=== PATIENT | female | born 1945 | race Caucasian/White ===

== ENCOUNTER 2018-08-19 16:56 | Emergency (ER) | payer MEDICARE, SELFPAY ==
[2018-08-19 16:57] VITALS: BP 212/98; PULSE 55; RESP 16; TEMP 36.4; O2SAT 96; BMI 40.2
--- NOTE | 2018-08-19 17:07 | EKG12_ITS ---
Test Reason : PALPS Blood Pressure : / mmHG Vent. Rate : 052 BPM Atrial Rate : 052 BPM P-R Int : 156 ms QRS Dur : 072 ms QT Int : 442 ms P-R-T Axes : 001 -14 -18 degrees QTc Int : 411 ms Sinus bradycardia Inferior infarct , age undetermined Abnormal ECG Confirmed by ANGELICA MAYORGA ([id number]), news videotape editor KELLIE RODRÍGUEZ ([id number]) on 08/26/2018 8:53:06 AM Referred By: NESS Confirmed By:ANGELICA MAYORGA
--- NOTE | 2018-08-19 17:09 | ED.DCSUM_ITS ---
- ER Visit Summary Date of Service: 08/19/18 Chief Complaint: Hypertension, palpitations History of Present Illness: The patient is a 73 F who presents with elevated blood pressure palpitations. She noticed this today. Her blood pressure was 215/90 at home. Her normal blood pressures is around 130/70. She takes metoprolol 100 mg twice a day. She has not missed any doses. And no recent changes to her dosage. She denies any chest pain but has felt some palpitations throughout the day. Denies any leg swelling. No other symptoms. Physical Examination: Vital signs reviewed. HEENT exam unremarkable. Heart is regular rate and rhythm without murmurs. Lungs are clear to auscultation. Abdomen is soft and nontender. Extremities reveal no edema. Peripheral pulses are equal. Skin exam normal. Neurologic exam normal. Test Results: EKG is normal sinus rhythm with rate of 52. No ST changes. Emergency Department Course and Treatment: Patient received 0.3 mg of clonidine orally. Repeat blood pressure is 171/86. She remained a symptomatically. Patient will need to discuss her medications with her banner painter. She may need a change because she feels tired with the metoprolol. Treatment Plan: [] Disposition: Discharge Impression: Hypertension This note was generated with [employer] dictation software. It may contain incorrect words, spelling, and punctuation that were not noted in review of the chart prior to signing ED Disposition - Plan for ED Patient: Referrals: Mis Monk MD [Primary Care Provider] -
[2018-08-19] MEDS: Clonidine HCl 0.1 MG, Clonidine HCl 0.2 MG 0.3 MG PO (17:23)
[2018-08-19 17:50] VITALS: BP 181/78; PULSE 47; RESP 14; O2SAT 95
[2018-08-19 18:12] VITALS: BP 171/89
--- NOTE | 2018-08-19 18:25 | ED.DEP ---
ED Disposition - Plan for ED Patient: Disposition: Home or Assisted Living Instructions: ED HTN Established Referrals: Mis Monk MD [Primary Care Provider] -
[2018-08-19 18:43] VITALS: BP 141/75; PULSE 46; RESP 18; O2SAT 95
== END 2018-08-19 18:44 | disposition home or self-care (01) ==
PROVIDERS: Emergency Provider Emergency Medicine; Family Provider Internal Medicine; PCP Internal Medicine
DX: I11.0 Hypertensive heart disease with heart failure (principal); I50.9 Heart failure, unspecified; K21.9 Gastro-esophageal reflux disease without esophagitis; Z79.82 Long term (current) use of aspirin; Z79.84 Long term (current) use of oral hypoglycemic drugs; Z79.899 Other long term (current) drug therapy
CPT/HCPCS: 93005; 99283

== ENCOUNTER → 2018-10-15 | Outpatient (CLI) | payer MEDICARE, SELFPAY ==
[2018-10-15 15:45] LABS: Lipase 116 U/L (73-393)
== END | disposition home or self-care (01) ==
LOC: LABSPEC 15:25
PROVIDERS: Family Provider Internal Medicine; PCP Internal Medicine; Referring Provider Nurse Practitioner; Visit Provider Nurse Practitioner
DX: R10.816 Epigastric abdominal tenderness (principal); R10.11 Right upper quadrant pain
CPT/HCPCS: 83690

== ENCOUNTER 2019-05-23 11:46 | Emergency (ER) | payer MEDICARE, SELFPAY ==
[2019-05-23 11:47] VITALS: BP 150/101; PULSE 63; RESP 16; TEMP 36.6; O2SAT 94; BMI 35.9
[2019-05-23 12:48] LABS: Absolute Lymphocyte Count 1.98 X10^3/uL (0.83-4.51); Absolute Neutrophil Count 5.8 X10^3/uL (2.0-7.7); Basophil# 0.04 X10^3/uL; Basophil% 0.4 % (0-1); Eosinophil# 0.14 X10^3/uL; Eosinophils% 1.6 % (0-5); Hematocrit 39.9 % (37-47); Lymphocyte # 1.98 X10^3/ul (4.0); Mean Corp Hgb Conc 32.6 g/dL (32-36); Mean Corpuscular Hgb 28.6 pg (27.0-32.0); Mean Corpuscular Volume 87.7 fL (81-99); Mean Platelet Vol. 9.3 fl (6.2-12.0); Monocyte# 1.01 X10^3/uL; Monocyte% 11.2 % (0-10); NRBC Flagged by Analyzer 0 % (0-5); Neutrophil # 5.82 X10^3/uL (2.7-7.7); Neutrophil % 64.5 % (47-70); Platelet Count 324 K/mm3 (150-450); RBC Distribution Width CV 13.2 % (11.6-14.6); RBC Distribution Width SD 42.3 fl (35.1-43.9); Red Blood Count 4.55 M/mm3 (4.2-5.4)
[2019-05-23 13:08] LABS: Anion Gap 6 (5-15); BUN 15 mg/dL (7-18); BUN/Creat Ratio 18.1 RATIO (10-20); Calcium,Total 9.5 mg/dL (8.5-10.1); Chloride 108 mmol/L (98-107); Creatinine, Serum 0.83 mg/dL (0.55-1.02); EST Glomerular Filtration Rate 71 mL/min (>60); Est Glom Filt Rate - Afr Amer 86 mL/min (>60); Estimated Creatinine Clearance 49.79 ml/min; Glucose 108 mg/dL (74-106); Potassium 4.6 mmol/L (3.5-5.1); Sodium Level 140 mmol/L (136-145)
--- NOTE | 2019-05-23 13:30 | CT_ITS ---
STUDY: CT ABDOMEN AND PELVIS WITHOUT CONTRAST REASON FOR EXAM: Female, 74 years old. Abdominal pain, GI bleed RADIATION DOSAGE (If Supplied By Facility): CTDIvol = ( 14.73 ) mGy, DLP = ( 634.20 ) mGycm TECHNIQUE: Transaxial images were obtained from the dome of the diaphragm to the symphysis pubis without oral contrast, and without intravenous contrast. Sagittal and coronal images were reconstructed. Individualized dose optimization techniques were used for this CT. COMPARISON: None. FINDINGS: Lack of intravenous contrast limits evaluation of abdominal and pelvic organs. There are mild fibrotic and chronic interstitial changes at the lung bases. There is a mitral annular valve. There are calcifications in the right infrahilar region. There are multiple benign calcified granulomata of the liver. There are surgical clips in the gallbladder fossa consistent with a prior cholecystectomy. There are multiple benign calcified granulomata of the spleen. Normal pancreas. Normal bilateral adrenal glands. Normal right kidney. Normal left kidney. Normal visualized stomach. Normal small intestine. There is colonic diverticulosis. There is focal inflammation and stranding of a rectosigmoid diverticulum on axial image 124. There is no free air or abscess.. The appendix is visualized and appears normal. There is diffuse atherosclerotic calcification of the abdominal aorta, without a demonstrated aneurysm. Normal inferior vena cava. Normal retroperitoneum. The urinary bladder is collapsed. There is absence of the uterus consistent with a prior hysterectomy. Normal abdominal wall. There are diffuse degenerative changes of the visualized lumbar spine. There is bilateral hip arthrosis. CT/Abdomen/Pelvis without Cont IMPRESSION: Focal, acute rectosigmoid diverticulitis. No free air or abscess. Chronic granulomatous disease. Electronically Signed: Marcella Haley, at 15:03 EST Tel , Service support ,
[2019-05-23 13:40] LABS: Bacteria 0 SEEN /hpf (None Seen); Mucous, Urine 0 SEEN /hpf (<or=2+); Red Blood Cells-Urine 0 SEEN /hpf (0-5); White Blood Cells 0 SEEN /hpf (0-5)
[2019-05-23 13:41] LABS: Color, Urine Yellow (Yellow); Glucose, Dipstick Normal (Normal); Ketone-Dipstick Negative (Negative); Leukocyte Esterase-Dipstick Negative /ul (Negative); Nitrite-Dipstick Negative (Negative); Occult Blood-Urine Negative /ul (Negative); Protein-Dipstick Negative (Negative); Urine Bilirubin Dipstick Negative (Negative); Urine Clarity Sl. Cloudy (Clear); Urine Urobilinogen Normal (Normal); Urine pH 6.5 (5.0 - 8.0)
[2019-05-23 13:47] LABS: Squamous Epithelial Cells - UA 0-5 SEEN /hpf (5-10)
--- NOTE | 2019-05-23 15:44 | ED.VISSUMM ---
- ER Visit Summary Date of Service: 05/23/19 Chief Complaint: Blood in stool History of Present Illness: The patient is a 74 F presenting with blood in stool. She states she had one episode yesterday and one stool today with small amount of blood in stool. She showed me a picture of her stool, it was light brown with very small amount of blood. She has had some lower abdominal cramping. She denies nausea or vomiting. Denies diarrhea. She denies fever. She denies lightheadedness or syncope. She is not on anticoagulants. She has a history of previous diverticulitis. Denies other complaints. Physical Examination: Vitals are stable. Patient is afebrile. Alert no acute distress. HEENT exam is unremarkable. Neck is supple. Lungs are clear and equal bilaterally. Heart is regular rate and rhythm. Abdomen is soft bilateral lower quadrant tenderness with no guarding or rebound Extremities are unremarkable. Skin is warm and dry. No focal neurologic deficit. Remainder of exam is unremarkable. Emergency Department Course and Treatment: CBC, chemistries unremarkable. Urinalysis unremarkable. CT abdomen pelvis shows focal, acute rectosigmoid diverticulitis. No free air or abscess. On repeat evaluation, patient is resting comfortably. She is comfortable with discharge home. She is given Augmentin and a prescription for Augmentin. Advised to follow-up with Dr. More who she has seen in the past. She states she is scheduled for a routine colonoscopy in May. Advised return to ED for worsening complaints. Disposition: Discharge home Impression: Diverticulitis This note was generated with [employer] dictation software. It may contain incorrect words, spelling, and punctuation that were not noted in review of the chart prior to signing ED Disposition - Plan for ED Patient: Referrals: Mis Monk MD [Primary Care Provider] -
--- NOTE | 2019-05-23 15:56 | ED.DEP ---
ED Disposition - Plan for ED Patient: Instructions: Understanding Diverticulosis and Diverticulitis Prescriptions: Amox/Clavulanate Tablet [Augmentin Tablet] 875 mg PO Q12H #20 tablet Referrals: Mis Monk MD [Primary Care Provider] -
[2019-05-23] MEDS: Amox/Clavulanate 875 MG Tablet PO (16:20)
[2019-05-23 16:24] VITALS: BP 146/69; PULSE 68; RESP 16; O2SAT 95
--- NOTE | 2019-05-23 16:25 | ED.RN ---
REVIEWED D/C INSTRUCTIONS, FOLLOW UP CARE, PRESCRIPTION, AND S/S THAT WOULD WARRANT A RETURN TO THE ED WITH PT. PT VERBALIZED AN UNDERSTANDING AND DENIES FURTHER QUESTIONS FOR THIS RN. PT SKIN P/W/D, RESP EVEN AND UNLABORED, PT A&O X 3, NO DISTRESS NOTED. PT AMBULATED OUT OF ED, GAIT STEADY.
== END 2019-05-23 16:27 | disposition home or self-care (01) ==
PROVIDERS: Emergency Provider Emergency Medicine; PCP Internal Medicine
DX: K57.32 Diverticulitis of large intestine without perforation or abscess without bleeding (principal); I10 Essential (primary) hypertension; E11.9 Type 2 diabetes mellitus without complications; Z87.19 Personal history of other diseases of the digestive system; Z90.49 Acquired absence of other specified parts of digestive tract; Z79.82 Long term (current) use of aspirin; Z79.84 Long term (current) use of oral hypoglycemic drugs; Z79.899 Other long term (current) drug therapy
CPT/HCPCS: 74176; 80048; 81001; 85025; 99284; A4216

== ENCOUNTER 2020-07-03 22:00 | Emergency (ER) | payer MEDICARE, SELFPAY ==
[2020-07-03 22:00] VITALS: BP 174/83; PULSE 64; PULSE 69; RESP 16; RESP 18; TEMP 36.3; O2SAT 95; BMI 41.3
--- NOTE | 2020-07-03 22:07 | EKG12_ITS ---
Test Reason : CHESTPAIN Blood Pressure : / mmHG Vent. Rate : 065 BPM Atrial Rate : 065 BPM P-R Int : 150 ms QRS Dur : 090 ms QT Int : 424 ms P-R-T Axes : -13 -06 -12 degrees QTc Int : 440 ms Sinus rhythm with sinus arrhythmia with occasional Premature ventricular complexes Otherwise normal ECG Confirmed by JANET SOMMER, SAURAV ([id number]), news editor JODI GARCIA ([id number]) on 07/06/2020 3:00:43 PM Referred By: Confirmed By:CHERI GONZALES MD
[2020-07-03 22:18] VITALS: O2SAT 97
[2020-07-03 22:24] LABS: Absolute Lymphocyte Count 2.37 X10^3/uL (0.83-4.51); Absolute Neutrophil Count 5.2 X10^3/uL (2.0-7.7); Basophil# 0.04 X10^3/uL; Basophil% 0.5 % (0-1); Eosinophil# 0.24 X10^3/uL; Eosinophils% 2.7 % (0-5); Hematocrit 40.1 % (37-47); Hemoglobin 13.1 g/dL (12.0-15.0); Lymphocyte # 2.37 X10^3/ul (4.0); Lymphocyte % 26.9 % (19-41); Mean Corp Hgb Conc 32.7 g/dL (32-36); Mean Corpuscular Hgb 29.4 pg (27.0-32.0); Mean Corpuscular Volume 90.1 fL (81-99); Mean Platelet Vol. 9.5 fl (6.2-12.0); Monocyte% 11.3 % (0-10); NRBC Flagged by Analyzer 0 % (0-5); Neutrophil # 5.15 X10^3/uL (2.7-7.7); Neutrophil % 58.4 % (47-70); Platelet Count 337 K/mm3 (150-450); RBC Distribution Width SD 46.1 fl (35.1-43.9); Red Blood Count 4.45 M/mm3 (4.2-5.4); White Blood Count 8.8 K/mm3 (4.4-11.0)
--- NOTE | 2020-07-03 22:25 | RAD_ITS ---
STUDY: X-RAY CHEST REASON FOR EXAM: Female, 75 years old. Chest pain. TECHNIQUE: AP. COMPARISON: 03/15/2015 CXR FINDINGS: No evidence of pneumonia, pulmonary edema, pneumothorax or pleural effusion. Cardiac silhouette, hilar and mediastinal contours with no acute findings. Mild cardiomegaly. Atherosclerosis of the thoracic aorta. Degenerative osseous changes with no acute osseous abnormality. RAD/Chest 1 View (Portable) IMPRESSION: No acute findings. Mild cardiomegaly again demonstrated. Electronically Signed: Jaya De La Paz MD at 22:39 EDT Tel , Service support ,
[2020-07-03 22:44] LABS: Anion Gap 3 (5-15); BUN 23 mg/dL (7-18); BUN/Creat Ratio 25.1 RATIO (10-20); Calcium,Total 9.9 mg/dL (8.5-10.1); Chloride 107 mmol/L (98-107); Creatinine, Serum 0.92 mg/dL (0.55-1.02); EST Glomerular Filtration Rate 63 mL/min (>60); Est Glom Filt Rate - Afr Amer 77 mL/min (>60); Estimated Creatinine Clearance 36.78 ml/min; Glucose 126 mg/dL (74-106); Potassium 4.2 mmol/L (3.5-5.1); Sodium Level 137 mmol/L (136-145)
--- NOTE | 2020-07-03 22:54 | EKG12_ITS ---
Test Reason : RECHECK Blood Pressure : / mmHG Vent. Rate : 058 BPM Atrial Rate : 058 BPM P-R Int : 146 ms QRS Dur : 088 ms QT Int : 446 ms P-R-T Axes : 018 -02 -08 degrees QTc Int : 437 ms Sinus bradycardia with occasional Premature ventricular complexes Otherwise normal ECG Confirmed by JANET SOMMER, SAURAV ([id number]), metropolitan editor JODI GARCIA ([id number]) on 07/06/2020 3:00:57 PM Referred By: Confirmed By:CHERI GONZALES MD
--- NOTE | 2020-07-03 22:55 | ED.VIS.GEN ---
History of Present Illness Chief Complaint: Chest Pain Narrative: This patient is a 75-year-old female who presents with chest pain. She states she first noticed symptoms a little after 9 PM. She is currently wearing an outpatient heart monitor. She states she has a history of PVCs and could tell that she was having PVCs. She complains of palpitations. She also had very brief episodes of chest pain over the course of about 40 minutes. She states the pain was sharp located on the left side of her chest and would only last couple of seconds at a time. She did not have any associated symptoms such as shortness of breath, nausea, dizziness, diaphoresis. She did state that she was feeling anxious. She otherwise denies any recent illness such as fevers cough vomiting diarrhea. She does have a history of coronary disease with a stent. No history of DVT or pulmonary embolism. No recent travel surgery or immobilization. No extremity pain. Past Medical History - Allergies and Home Meds Allergies/Adverse Reactions: Allergies acetaminophen [From Vicodin] Allergy (Verified 05/23/19 11:47) Other codeine Allergy (Verified 05/23/19 11:47) Other hydrocodone bitartrate [From Vicodin] Allergy (Verified 05/23/19 11:47) Other Iodinated Contrast Media Allergy (Verified 05/23/19 11:47) Other meloxicam [From Mobic] Allergy (Verified 05/23/19 11:47) Swelling Sulfa (Sulfonamide Antibiotics) Allergy (Verified 05/23/19 11:47) Rash sulfamethoxazole [From Septra] Allergy (Verified 05/23/19 11:47) Unknown trimethoprim [From Septra] Allergy (Verified 05/23/19 11:47) Unknown Primary Care Physician: Mis Monk MD [Primary Care Provider] - Past Medical History: - - Diabetes, hypertension, coronary artery disease Smoking Status: Former smoker Review of Systems All systems negative except as indicated General: Denies: Fever Eyes: Denies: Visual changes - bilaterally ENT: Denies: Bilateral ear pain Cardiovascular: Reports: Chest pain, Palpitations Respiratory: Denies: Dyspnea Gastrointestinal: Denies: Nausea Musculoskeletal: Denies: Myalgias, Arthralgias, Extremity Pain Skin: Denies: Rash Neurological: Denies: Headache Hematologic: Denies: Easy bruising Allergy: Denies: Uticaria Physical Exam Vital Signs/Narrative: Vital Signs Temp Pulse Resp BP Pulse Ox 07/03/20 22:18 97 07/03/20 22:00 97.4 F L 69 16 174/83 H 95 Inital Vital Signs reviewed: Yes General: Well nourished Head: Normocephalic Eyes: EOMI ENT: Moist mucous membranes Neck: Supple Cardiovascular: Regular rate, Regular rhythm, - - Easily palpable and symmetric radial and dorsalis pedis pulses Respiratory: No distress, CTA bilaterally Abdomen: Soft, Nontender Extremities: Nontender, No edema Skin: Normal color Neurological: Alert Psychological: Normal affect Diagnostic/Tx/Re-eval Impressions Chest X-Ray 07/03/20 22:25 IMPRESSION: No acute findings. Mild cardiomegaly again demonstrated. Electronically Signed: Jaya De La Paz MD at 22:39 EDT Tel , Service support , 07/03/20 22:25 Chest 1 View (Portable) [RAD] Stat Laboratory Results 07/03/20 07/03/20 07/04/20 22:17 22:17 01:03 WBC 8.8 RBC 4.45 Hgb 13.1 Hct 40.1 MCV 90.1 MCH 29.4 MCHC 32.7 RDW Std Deviation 46.1 H RDW Coeff of Libra 14.0 Plt Count 337 MPV 9.5 Immature Gran % (Auto) 0.200 Neut % (Auto) 58.4 Lymph % (Auto) 26.9 [place] % (Auto) 11.3 H Eos % (Auto) 2.7 Baso % (Auto) 0.5 Absolute Neuts (auto) 5.2 Absolute Lymphs (auto) 2.37 Nucleated RBC % 0 Sodium 137 Potassium 4.2 Chloride 107 Carbon Dioxide 27.0 Anion Gap 3 L BUN 23 H Creatinine 0.92 Estim Creat Clear Calc 36.78 Est GFR (MDRD) Af Amer 77 Est GFR (MDRD) Non-Af 63 BUN/Creatinine Ratio 25.1 H Glucose 126 H Calcium 9.9 Troponin I < 0.015 < 0.015 - Medical Decision Making Initial EKG shows sinus rhythm with PVCs otherwise normal rate of 65. Serum laboratory studies were unremarkable with a negative troponin and chest x-ray showed no acute process. Although the patient does have a history of coronary disease her symptoms are very atypical. She complains of only seconds of sharp left-sided chest pain. There were no associated symptoms. She was pain-free on arrival here and has not had recurrence of pain. Therefore we elected to pursue a delta strategy. Repeat EKG shows sinus rhythm at a rate of 58 with a single PVC no acute ischemic changes. Repeat troponin remains negative. Patient advised to follow-up as an outpatient but does understand return for new or worsening symptoms and was advised on signs and symptoms to monitor for. ED Disposition - Plan for ED Patient: Disposition: Home or Assisted Living Diagnosis: Atypical chest pain Instructions: ED Chest Pain, Noncardiac Referrals: Mis Monk MD [Primary Care Provider] -
[2020-07-04 01:09] VITALS: BP 161/73; PULSE 55; RESP 18; O2SAT 96
[2020-07-04 01:39] VITALS: BP 142/61; PULSE 57; RESP 16; O2SAT 97
== END 2020-07-04 01:40 | disposition home or self-care (01) ==
PROVIDERS: Emergency Provider Emergency Medicine; PCP Internal Medicine
DX: R07.89 Other chest pain (principal); R00.2 Palpitations; I49.3 Ventricular premature depolarization; I10 Essential (primary) hypertension; E11.9 Type 2 diabetes mellitus without complications; I25.10 Atherosclerotic heart disease of native coronary artery without angina pectoris; Z95.5 Presence of coronary angioplasty implant and graft; Z79.82 Long term (current) use of aspirin; Z79.84 Long term (current) use of oral hypoglycemic drugs; Z79.899 Other long term (current) drug therapy; Z87.891 Personal history of nicotine dependence
CPT/HCPCS: 71045; 80048; 84484; 85025; 93005; 99285; A4216

== ENCOUNTER 2024-05-19 10:56 | Day surgery (SDC) | payer MEDICARE, SELFPAY ==
--- NOTE | 2024-05-18 15:51 | PAT.ANE_ITS ---
Pre-Assessment Diagnosis/Proposed Procedure Planned Operative Procedure(s): EGD/CSCOPE Anesthesia History Anesthesia History - wildlife control agent: Anesthesia History - wildlife control agent Hx Hospitalization Yes: 02/2024 DIVERTICULITIS/ 05/17/24 12:42 SYNCOPE/PNEUMONIA Any Problems With Anesthesia No 05/17/24 12:42 Cholinesterase deficiency No 05/17/24 12:42 You/Your Family Experience No 05/17/24 12:42 fever (hyperthermia) with Relationship Recent Exposure to Contagious Disease Does patient have nerve No 05/17/24 12:42 stimulator Patient instructed to have device shut off --Does patient have Pacemaker or ICD? When Was Last Pacemaker Check QUESTION #4 FULL TEXT: You/Your Family Experience fever (hyperthermia) with Anesthesia Last Oral Intake Last Oral intake: Last Oral Intake NPO since Meds taken in AM with sips of water? Meds patient instructed to take am of surgery PONV PONV - wildlife control agent: PONV - wildlife control agent Female Yes 05/17/24 12:42 HX of Motion Sickness No 05/17/24 12:42 HX of N/V After Surgery No 05/17/24 12:42 Non-Smoker Yes 05/17/24 12:42 Duration of Surgery greater No 05/17/24 12:42 than 60 minutes Number of Risk Factors 2 05/17/24 12:42 PONV Score Moderate Risk 05/17/24 12:42 Height & Weight Height & Weight: Anesthesia: Height & Weight Height 5 ft 2 in 05/02/24 13:28 Respiratory Assessment Respiratory Assessment - wildlife control agent: Respiratory Tract Infection Hx - wildlife control agent Hx Respiratory Tract Infection No 05/17/24 12:42 STOP Sleep Apnea STOP Sleep Apnea - wildlife control agent: STOP Sleep Apnea - wildlife control agent Hx Hypertension Yes: CONTROLLED WITH MEDS 05/17/24 12:42 Hx Sleep Apnea Yes 05/17/24 12:42 CPAP Yes 05/17/24 12:42 BIPAP No 05/17/24 12:42 Do you snore loudly (louder than talking or can be heard Do you often feel tired/ fatigued/ sleepy during daytime? Has anyone observed you stop breathing during sleep? STOP Results Positive 05/17/24 12:42 QUESTION #5 FULL TEXT : Do you snore loudly (louder than talking or can be heard through closed doors)? 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 Specify any problems Hx of Preganancy in last 3 No 05/17/24 12:42 Months Nurse Filling Out Transfusion DSCHRIBER 05/17/24 12:42 & Questions: Date: 05/17/24 05/17/24 12:42 Time: 12:44 05/17/24 12:42 Patient unable to answer at this time (ie. confused, unrespo /Reproduction History /Reproductive History - wildlife control agent: /Reproductive Hx- wildlife control agent Hx Now No 05/17/24 12:42 Gestational Age (in weeks): EDC: Hx Hx Para Hx Section SAB No 05/17/24 12:42 PFSH Medical History (Updated 05/17/24 @ 12:56 by Sylvie Serna) Wears dentures History of steroid therapy Thyroid disease Walker as ambulation aid Ambulates with cane Bladder disease Anemia Fatty liver High cholesterol Back pain Syncope History of GI bleed CPAP (continuous positive airway pressure) dependence Asthma Leg cramps History of pain when walking Cardiac arrest History of echocardiogram History of stress test Cardiology follow-up encounter Vitamin D deficiency SVT (supraventricular tachycardia) Osteoarthritis Occipital neuralgia Idiopathic pulmonary fibrosis Hiatal hernia GERD (gastroesophageal reflux disease) CAD (coronary artery disease) Diverticulitis Arthritis Hypertension Diabetes Anxiety Home Medications ?Medication ?Instructions ?Recorded ?Last Taken ?Type fluticasone propionate 50 2 spray intranasal DAILY PRN nasal 03/15/15 Unknown History mcg/actuation nasal congestion spray,suspension albuterol sulfate 90 mcg/actuation 2 puff inhalation Q 4H PRN PRN 08/19/18 Unknown History aerosol inhaler (Ventolin HFA) Wheezing aspirin 81 mg chewable tablet 81 mg PO DAILY@0800 07/29 06/15 Unknown History ergocalciferol (vitamin D2) 50 mcg 1.25 mg PO MOWEFR 0 08/19/18 Unknown History (2,000 unit) capsule simethicone 125 mg capsule (Gas 125 mg PO QD-BID PRN a bdominal 01/25/24 Unknown History Relief (simethicone)) distention omeprazole 20 mg capsule,delayed 20 mg PO QDAY gerd Unknown History release lisinopril 20 mg tablet 20 mg PO DAILY 05/17/24 Unkn own History verapamil 120 mg tablet,extended 120 mg PO QHS 5 Unknown History release Allergy/AdvReac Type Severity Reaction Status Date / Time adhesive Allergy Intermediate Rash Verified 05/17/24 12:39 amlodipine Allergy Intermediate Swelling Verified 05/17/24 12:39 amoxicillin (From Augmentin) Allergy Intermediate Shortness Verified 05/17/24 12:39 of breath carvedilol Allergy Intermediate Other Verified 05/17/24 12:39 ciprofloxacin Allergy Intermediate Other Verified 05/17/24 12:39 clarithromycin Allergy Intermediate Other Verified 05/17/24 12:39 clavulanic acid (From Allergy Intermediate Shortness Verified 05/17/24 12:39 Augmentin) of breath clonidine Allergy Intermediate Other Verified 05/17/24 12:39 dicyclomine Allergy Intermediate Shortness Verified 05/17/24 12:39 of breath diltiazem (From Cardizem) Allergy Intermediate Itching Verified 05/17/24 12:39 doxycycline Allergy Intermediate Vomiting Verified 05/17/24 12:39 duloxetine (From Cymbalta) Allergy Intermediate Other Verified 05/17/24 12:39 guaifenesin Allergy Intermediate Other Verified 05/17/24 12:39 levofloxacin Allergy Intermediate Other Verified 05/17/24 12:39 losartan Allergy Intermediate Other Verified 05/17/24 12:39 metronidazole (From Flagyl) Allergy Intermediate Itching Verified 05/17/24 12:39 rosuvastatin (From Crestor) Allergy Intermediate Other Verified 05/17/24 12:39 valsartan Allergy Intermediate Swelling Verified 05/17/24 12:39 acetaminophen (From Vicodin) Allergy Other Verified 05/17/24 12:39 codeine Allergy Other Verified 05/17/24 12:39 hydrocodone bitartrate (From Allergy Other Verified 05/17/24 12:39 Vicodin) Iodinated Contrast Media Allergy Other Verified 05/17/24 12:39 meloxicam (From Mobic) Allergy Swelling Verified 05/17/24 12:39 Sulfa (Sulfonamide Allergy Rash Verified 05/17/24 12:39 Antibiotics) sulfamethoxazole (From Allergy Unknown Verified 05/17/24 12:39 Septra) trimethoprim (From Septra) Allergy Unknown Verified 05/17/24 12:39 Family History Mother Cancer stomach Sister Cancer lung- smoker Father Diabetes Hypertension Surgical History (Updated 05/17/24 @ 12:56 by Sylvie Serna) History of cardiac catheterization Hx of right cataract extraction Hx of left cataract extraction History of esophagogastroduodenoscopy (EGD) Hx of colonoscopy Hx of cholecystectomy H/O heart artery stent H/O hand surgery History of total vaginal hysterectomy (TVH) Social History Smoking Status: Former smoker alcohol intake: never substance use type: does not use caffeine: No what type of physical activity do you participate in: none seatbelt use: always do you feel safe at home: Yes additional social history: - Retired Audit: Pertinent Findings Pertinent Findings EKG Perinent findings: April 01, 2024. Normal sinus rhythm. Echo (EF%) pertinent findings: September 29, 2023. Ejection fraction 65%. No significant changes compared to prior echocardiogram 07/21/2022. Heart catheterization pertinent findings: August 21, 2021. Mild nonobstructive coronary artery disease in the right dominated circulation. Elevated right- sided filling pressures. Normal left sided filling pressures and pulmonary pressures. Consult pertinent findings: May 05, 2024. Dr. Pavon cardiology. 1. Mild coronary artery disease-studies as above. Cleared for procedure. Continue current medical therapy. Additional pertinent findings: Holter monitor. April 01, 2024. Predominant rh ythm was sinus rhythm. 1 run of V. tach. 48 runs of supraventricular tachycardia. Recommendation Anesthesia Recommendation Anesthesia recommendation: OPTIMIZED for anesthesia
[2024-05-19] VITALS (7 sets, daily range): BP systolic 109–170; BP diastolic 48–98; PULSE 58–68; RESP 16–18; TEMP 36.1–36.6; O2SAT 97–100; BMI 34.9
--- NOTE | 2024-05-19 11:44 | PCM.HP.STD ---
HPI - General General Date of Admission: 05/19/24 Date of Service: 05/19/24 HPI Narrative WHITNEY SEGOVIA, is a 79 F who presents for evaluation of abdominal pain, GERD, change in bowel habits and history of polyps. 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 Differential diagnoses include: GERD, Snowden's, PUD. Discussed plan with her; educated her on appropriate use of PPI. omeprazole 20mg PO BID - she is taking this once daily in the morning on an empty stomach famotidine 40mg PO QHS -- she is not taking this sucralfate 1gm PO QAC - - discontinued states it caused a bad headache EGD to investigate for ulcer office follow-up [address] 03/15/2024 mild acute diverticulitis distal descending colon CT 01/11/2024 acute distal sigmoid diverticulitis - Sulfa drugs - caused rash and itching - Amoxicillin - she reports she did not have any issues - Levaquin - shaky but resolved with discontinuing - RLQ pain - this pain comes and goes - the past 5-6 days - states this pain did resolve with ATB reports improvement in pain the past 2 days - trouble with constipation - rabbit poo - she is drinking prune juice with Miralax 3x a week - she has a BM daily - states she is now having good BM - denies any bleeding - weight is stable - denies any fevers - last colonoscopy 2-3 years ago - polyps removed - Mother with gastric CA - syncopal episode February 2024 prior to admission for diverticulitis and pneumonia - ambulates at home with rollator or cane - scheduled to see cardiology this week - reports she was having short runs of SVT - she went off Metoprolol 03/15 - reports this was causing a lot of BLE edema and bradycardia - reports she is scheduled colonoscopy 05/19 - Rogerio - epigastric pain better with once daily Omeprazole 20mg [facility] Medical History Wears dentures History of steroid therapy Thyroid disease Walker as ambulation aid Ambulates with cane Bladder disease Anemia Fatty liver High cholesterol Back pain Syncope History of GI bleed CPAP (continuous positive airway pressure) dependence Asthma Leg cramps History of pain when walking Cardiac arrest History of echocardiogram History of stress test Cardiology follow-up encounter Vitamin D deficiency SVT (supraventricular tachycardia) Osteoarthritis Occipital neuralgia Idiopathic pulmonary fibrosis Hiatal hernia GERD (gastroesophageal reflux disease) CAD (coronary artery disease) Diverticulitis Arthritis Hypertension Diabetes Anxiety Home Medications ?Medication ?Instructions ?Recorded ?Last Taken ?Type fluticasone propionate 50 2 spray intranasal DAILY PRN nasal 03/15/15 Unknown History mcg/actuation nasal congestion spray,suspension albuterol sulfate 90 mcg/actuation 2 puff inhalation Q4H PRN PRN 08/19/18 Unknown History aerosol inhaler (Ventolin HFA) Wheezing aspirin 81 mg chewable tablet 81 mg PO DAILY@0800 08/19/18 05/19/24 History ergocalciferol (vitamin D2) 50 mcg 1.25 mg PO MOWEFR 08/19/18 05/18/24 History (2,000 unit) capsule simethicone 125 mg capsule (Gas 125 mg PO QD-BID PRN abdominal 01/25/24 Unknown History Relief (simethicone)) distention omeprazole 20 mg capsule,delayed 20 mg PO QDAY gerd 05/02/24 05/18/24 History release lisinopril 20 mg tablet 20 mg PO DAILY 05/17/24 05/19/24 History verapamil 120 mg tablet,extended 120 mg PO QHS 05/17/24 05/18/24 History release Allergy/AdvReac Type Severity Reaction Status Date / Time adhesive Allergy Intermediate Rash Verified 05/19/24 11:21 amlodipine Allergy Intermediate Swelling Verified 05/19/24 11:21 amoxicillin (From Augmentin) Allergy Intermediate Shortness Verified 05/19/24 11:21 of breath carvedilol Allergy Intermediate Other Verified 05/19/24 11:21 ciprofloxacin Allergy Intermediate Other Verified 05/19/24 11:21 clarithromycin Allergy Intermediate Other Verified 05/19/24 11:21 clavulanic acid (From Allergy Intermediate Shortness Verified 05/19/24 11:21 Augmentin) of breath clonidine Allergy Intermediate Other Verified 05/19/24 11:21 dicyclomine Allergy Intermediate Shortness Verified 05/19/24 11:21 of breath diltiazem (From Cardizem) Allergy Intermediate Itching Verified 05/19/24 11:21 doxycycline Allergy Intermediate Vomiting Verified 05/19/24 11:21 duloxetine (From Cymbalta) Allergy Intermediate Other Verified 05/19/24 11:21 guaifenesin Allergy Intermediate Other Verified 05/19/24 11:21 levofloxacin Allergy Intermediate Other Verified 05/19/24 11:21 losartan Allergy Intermediate Other Verified 05/19/24 11:21 metronidazole (From Flagyl) Allergy Intermediate Itching Verified 05/19/24 11:21 rosuvastatin (From Crestor) Allergy Intermediate Other Verified 05/19/24 11:21 valsartan Allergy Intermediate Swelling Verified 05/19/24 11:21 acetaminophen (From Vicodin) Allergy Other Verified 05/19/24 11:21 codeine Allergy Other Verified 05/19/24 11:21 hydrocodone bitartrate (From Allergy Other Verified 05/19/24 11:21 Vicodin) Iodinated Contrast Media Allergy Other Verified 05/19/24 11:21 meloxicam (From Mobic) Allergy Swelling Verified 05/19/24 11:21 Sulfa (Sulfonamide Allergy Rash Verified 05/19/24 11:21 Antibiotics) sulfamethoxazole (From Allergy Unknown Verified 05/19/24 11:21 Septra) trimethoprim (From Septra) Allergy Unknown Verified 05/19/24 11:21 Family History Mother Cancer stomach Sister Cancer lung- smoker Father Diabetes Hypertension Surgical History (Updated 05/17/24 @ 12:56 by Sylvie Serna) History of cardiac catheterization Hx of right cataract extraction Hx of left cataract extraction History of esophagogastroduodenoscopy (EGD) Hx of colonoscopy Hx of cholecystectomy H/O heart artery stent H/O hand surgery History of total vaginal hysterectomy (TVH) Social History Smoking Status: Former smoker alcohol intake: never substance use type: does not use caffeine: No what type of physical activity do you participate in: none seatbelt use: always do you feel safe at home: Yes additional social history: - Retired ROS Constitutional Constitutional: Denies fatigue, fever(s), poor appetite, weight gain or weight loss Gastrointestinal Gastrointestinal: Denies belching, bloating, change in bowel habits, change in stool character, chewing difficulty, coffee ground emesis, constipation, cramping, diarrhea, dyspepsia, dysphagia, early satiety, excessive flatus, fecal incontinence, heartburn, hematemesis, hematochezia, hemorrhoids, loose stools, melena, nausea, odynophagia, rectal bleeding, tenesmus, vomiting or weight changes Vital Signs Vital Signs Vital Signs: 05/19/24 11:22 05/19/24 11:22 Temperature 98 F Temperature Source Temporal Pulse Rate 67 Respiratory Rate 18 Respiratory Pattern Normal Blood Pressure 170/73 H Blood Pressure Mean 105 Blood Pressure Source Monitor Blood Pressure Position Semi-Fowlers Blood Pressure Location Right Arm Pulse Ox 100 Oxygen Delivery Method Room Air Weight Weight: 178 lb 9.191 oz Body Mass Index (BMI) 34.9 Physical Exam Const alert, oriented x3, no apparent distress and healthy appearing General Appearance: cooperative GI normal to inspection, nondistended, normoactive bowel sounds, soft to palpation, non-tender and non-distended Percussion: normal to percussion Rectal Exam: deferred Assessment & Plan Assessment/Plan (1) Epigastric pain: (2) RLQ abdominal pain: (3) Diverticulitis: (4) GERD (gastroesophageal reflux disease): QUALIFIERS: Esophagitis presence: esophagitis presence not specified Qualified Code(s): K21.9 - Gastro-esophageal reflux disease without esophagitis PLAN: ROS Const Constitutional: Positive for fatigue and weakness; No fever(s) or weight change ENT ENT: No difficulty swallowing Cardio Cardiology: Positive for leg pain with exertion Gastro GI: Positive for abdominal pain, bloating, change in bowel habits and heartburn; No belching, change in stool character, coffee ground emesis, constipation, cramping, diarrhea, difficulty swallowing, feeling full early, excessive flatus, incontinent of stools, Vomiting blood/hematemesis, Blood in stool, loose stools, Black,tarry stools, nausea/dyspepsia, pain with swallowing, vomiting or other Musc Musculoskeletal: Positive for abnormal gait, joint pain, back pain, joint swelling, muscle cramps, muscle weakness, stiffness, Arthritis, sciatica, restless legs, leg pain at night and leg pain with exertion Skin Skin: Positive for dry skin; No yellowing of the eye or itchy eyes Neuro Neurology: Positive for abnormal gait, weakness, restless legs and Increased tone in limbs Psych Psychiatric: No anxiety and No depression Endo Endocrine: Positive for fatigue; No weight change Aller/Imm Allergy/Immunologic: No itchy eyes Gonzales/Lymp Hematologic/Lymphatic: No easy bleeding or easy bruising Exam Const General: cooperative, healthy appearing, no acute distress and well developed Nutritional Appearance: well nourished and obese Orientation: alert and oriented x3 HENMT Head: normocephalic Ears: hearing grossly normal bilaterally Mouth: moist mucous membranes Eyes Conjunctivae: conjunctivae normal Sclera: sclerae normal Neck Neck: normal visual inspection, full ROM and trachea midline Resp Effort & Inspection: normal respiratory effort, able to speak in complete sentences and symmetric chest movement Auscultation: Bilateral: Clear to Auscultation Cardio Palpation: normal PMI Rate: regular rate Rhythm: regular rhythm Heart Sounds: S1 normal and S2 normal GI Inspection: normal to inspection, large pannus and obesity Auscultation: normal bowel sounds Palpation: soft and no hepatosplenomegaly Rectal Exam: deferred Other: Limited exam secondary to body habitus. Mild RLQ tenderness Skin General: no rashes or lesions noted and turgor normal Neuro General: patient alert and patient oriented x3 Cranial Nerves: other (CN's grossly intact, non-focal exam) Cognition: normal cognition Speech: speech normal Gait: gait assisted (presents today in WC, ambulates from chair to exam table with cane w/o diff) Extrem General: normal to inspection (no edema noted) Psych Appearance: grossly normal and well kempt Affect: normal affect Attitude: cooperative Thought Process: normal Thought Content: normal Judgment: judgment good Assessment and Plan Assessment and Plan (1) RLQ abdominal pain: Status: Acute (2) Epigastric pain: Status: Acute Plan 79y/o female presents for three month follow-up of constipation. Since last seen she has had another CT documented episode of acute diverticulitis February 2024. She complains of right sided abdominal pain for the past 5 days, which is the same location and quality of pain she has with acute diverticulitis. However, she reports an improvement over the past two days, reports this is a mild discomfort. I have recommended a low residue diet the remainder of the week and if pain persists or worsens to contact the office and will order a CT. If pain resolves, I recommend following a high fiber diet. She will continue prune juice and miralax to prevent constipation. In terms of epigastric pain she reports a remarkable improvement with once daily PPI. She is scheduled for colonoscopy and EGD on 05/19/2024. She is scheduled to see cardiology this week and understands we will need cardiac clearance prior to proceeding. Patient Instructions: Continue Omeprazole 20mg every morning Colon and EGD as planned if cleared by cardiology
--- NOTE | 2024-05-19 11:45 | PRE.ANES_ITS ---
ASA Classification* ASA Classification ASA Classification: 3 Assessment & Plan Anesthesia* Anesthesia Assessment Anesthesia Assessment: Discussed sedation and/or anesthesia options, risks, benefits, and alternatives with patient/parents/legal guardian/POA. Questions invited. The patient/parents/legal guardian/POA seems to understand and agrees to proceed with anesthesia plan. Reviewed the physical assessment, medical history, allergy history and patient home medications list prior to surgery/procedure/anesthetic and documented any changes. Performed airway and anesthesia risk assessments. Procedural Plan Add'l anesthesia plan details: pt is Jehovah witness, does not accept blood; but okay with Cell salvage, CPB, HD, Albumin Anesthesia Type Anesthesia Type: MAC History Source History Obtained from:: Patient and Chart Anesthesia Focused Assessment* Temperature: 98 F Pulse Rate: 67 Blood Pressure: 170/73 Respiratory Rate: 18 Pulse Ox: 100 Oxygen Delivery Method: Room Air Airway Assessment Mouth opens: >3 cm Mallampati Score: II Teeth Condition: Dentures (complete lower and upper dentures) Focused Labs Anesthesia Preop lab: CBC WBC 8.8 K/mm3 (4.4-11.0) 07/03/20 22:17 07/03/20 RBC 4.45 M/mm3 (4.2-5.4) 07/03/20 22:17 07/03/20 Hgb 13.1 g/dL (12.0-15.0) 07/03/20 22:17 07/03/20 Hct 40.1 % (37-47) 07/03/20 22:17 07/03/20 Plt Count 337 K/mm3 (150-450) 07/03/20 22:17 07/03/20 CHEMISTRY Potassium 4.2 mmol/L (3.5-5.1) 07/03/20 22:17 07/03/20 Sodium 137 mmol/L (136-145) 07/03/20 22:17 07/03/20 BUN 23 mg/dL (7-18) H 07/03/20 22:17 07/03/20 Creatinine 0.92 mg/dL (0.55-1.02) 07/03/20 22:17 07/03/20 Glucose 126 mg/dL (74-106) H 07/03/20 22:17 07/03/20 COAG Pre-Assessment Diagnosis/Proposed Procedure Planned Operative Procedure(s): EGD/CSCOPE Anesthesia History Anesthesia History - campus chaplain: Anesthesia History - campus chaplain Hx Hospitalization Yes: 02/2024 DIVERTICULITIS/ 05/17/24 12:42 SYNCOPE/PNEUMONIA Any Problems With Anesthesia No 05/17/24 12:42 Cholinesterase deficiency No 05/17/24 12:42 You/Your Family Experience No 05/17/24 12:42 fever (hyperthermia) with Relationship Recent Exposure to Contagious No 05/19/24 11:22 Disease Does patient have nerve No 05/17/24 12:42 stimulator Patient instructed to have device shut off --Does patient have Pacemaker No 05/19/24 11:22 or ICD? When Was Last Pacemaker Check QUESTION #4 FULL TEXT: You/Your Family Experience fever (hyperthermia) with Anesthesia Last Oral Intake Last Oral intake: Last Oral Intake NPO since 09:00 05/19/24 11:22 Meds taken in AM with sips of Yes 05/19/24 11:22 water? Meds patient instructed to LISINOPRIL, ASA 05/19/24 11:22 take am of surgery PONV PONV - campus chaplain: PONV - campus chaplain Female Yes 05/17/24 12:42 HX of Motion Sickness No 05/17/24 12:42 HX of N/V After Surgery No 05/17/24 12:42 Non-Smoker Yes 05/17/24 12:42 Duration of Surgery greater No 05/17/24 12:42 than 60 minutes Number of Risk Factors 2 05/17/24 12:42 PONV Score Moderate Risk 05/17/24 12:42 Height & Weight Height & Weight: Anesthesia: Height & Weight Height 5 ft 05/19/24 11:22 Weight: 81 kg 05/19/24 11:22 Body Mass Index (BMI) 34.9 05/19/24 11:22 Respiratory Assessment Respiratory Assessment - campus chaplain: Respiratory Tract Infection Hx - campus chaplain Hx Respiratory Tract Infection No 05/17/24 12:42 STOP Sleep Apnea STOP Sleep Apnea - campus chaplain: STOP Sleep Apnea - campus chaplain Hx Hypertension Yes: CONTROLLED WITH MEDS 05/17/24 12:42 Hx Sleep Apnea Yes 05/17/24 12:42 CPAP Yes 05/17/24 12:42 BIPAP No 05/17/24 12:42 Do you snore loudly (louder than talking or can be heard Do you often feel tired/ fatigued/ sleepy during daytime? Has anyone observed you stop breathing during sleep? STOP Results Positive 05/17/24 12:42 QUESTION #5 FULL TEXT : Do you snore loudly (louder than talking or can be heard through closed doors)? Tobacco Use History Tobacco Use History - campus chaplain: Tobacco Use History - campus chaplain Tobacco Use Smoking Status Former smoker 05/17/24 12:42 Hx Tobacco Use No 05/17/24 12:42 Years Smoking Packs Smoked per Day Smoking Cessation Date was No - quit smoking greater 05/17/24 12:42 within the last 15 years than 15 years ago Hx Smoking Cessation Date Hx Smoking Cessation No 05/17/24 12:42 Counseling Hematologic Medial History Hematologic Hx - campus chaplain: Hematologic Medical Hx - cryptozoologist Hx of Blood Transfusion No 05/17/24 12:42 Hx of Transfusion in last 3 No 05/17/24 12:42 Months Date of Last Transfusion (if within last 3 months) Ever experience any problems No 05/17/24 12:42 with transfusion(s)? Specify any problems Hx of Preganancy in last 3 No 05/17/24 12:42 Months Nurse Filling Out Transfusion DSCHRIBER 05/17/24 12:42 & Questions: Date: 05/17/24 05/17/24 12:42 Time: 12:44 05/17/24 12:42 Patient unable to answer at this time (ie. confused, unrespo /Reproduction History /Reproductive History - campus chaplain: /Reproductive Hx- campus chaplain Hx Now No 05/17/24 12:42 Gestational Age (in weeks): EDC: Hx Hx Para Hx Section SAB No 05/17/24 12:42 PFSH Medical History (Updated 05/17/24 @ 12:56 by Sylvie Serna) Wears dentures History of steroid therapy Thyroid disease Walker as ambulation aid Ambulates with cane Bladder disease Anemia Fatty liver High cholesterol Back pain Syncope History of GI bleed CPAP (continuous positive airway pressure) dependence Asthma Leg cramps History of pain when walking Cardiac arrest History of echocardiogram History of stress test Cardiology follow-up encounter Vitamin D deficiency SVT (supraventricular tachycardia) Osteoarthritis Occipital neuralgia Idiopathic pulmonary fibrosis Hiatal hernia GERD (gastroesophageal reflux disease) CAD (coronary artery disease) Diverticulitis Arthritis Hypertension Diabetes Anxiety Home Medications ?Medication ?Instructions ?Recorded ?Last Taken ?Type fluticasone propionate 50 2 spray intranasal DAILY PRN nasal 03/15/15 Unknown History mcg/actuation nasal congestion spray,suspension albuterol sulfate 90 mcg/actuation 2 puff inhalation Q 4H PRN PRN 08/19/18 Unknown History aerosol inhaler (Ventolin HFA) Wheezing aspirin 81 mg chewable tablet 81 mg PO DAILY@0800 07/2905/19/24 History ergocalciferol (vitamin D2) 50 mcg 1.25 mg PO MOWEFR 0 08/19/18 05/18/24 History (2,000 unit) capsule simethicone 125 mg capsule (Gas 125 mg PO QD-BID PRN a bdominal 01/25/24 Unknown History Relief (simethicone)) distention omeprazole 20 mg capsule,delayed 20 mg PO QDAY gerd 05/18/24 History release lisinopril 20 mg tablet 20 mg PO DAILY 05/17/2405/01 History verapamil 120 mg tablet,extended 120 mg PO QHS 5 05/18/24 History release Allergy/AdvReac Type Severity Reaction Status Date / Time adhesive Allergy Intermediate Rash Verified 05/19/24 11:21 amlodipine Allergy Intermediate Swelling Verified 05/19/24 11:21 amoxicillin (From Augmentin) Allergy Intermediate Shortness Verified 05/19/24 11:21 of breath carvedilol Allergy Intermediate Other Verified 05/19/24 11:21 ciprofloxacin Allergy Intermediate Other Verified 05/19/24 11:21 clarithromycin Allergy Intermediate Other Verified 05/19/24 11:21 clavulanic acid (From Allergy Intermediate Shortness Verified 05/19/24 11:21 Augmentin) of breath clonidine Allergy Intermediate Other Verified 05/19/24 11:21 dicyclomine Allergy Intermediate Shortness Verified 05/19/24 11:21 of breath diltiazem (From Cardizem) Allergy Intermediate Itching Verified 05/19/24 11:21 doxycycline Allergy Intermediate Vomiting Verified 05/19/24 11:21 duloxetine (From Cymbalta) Allergy Intermediate Other Verified 05/19/24 11:21 guaifenesin Allergy Intermediate Other Verified 05/19/24 11:21 levofloxacin Allergy Intermediate Other Verified 05/19/24 11:21 losartan Allergy Intermediate Other Verified 05/19/24 11:21 metronidazole (From Flagyl) Allergy Intermediate Itching Verified 05/19/24 11:21 rosuvastatin (From Crestor) Allergy Intermediate Other Verified 05/19/24 11:21 valsartan Allergy Intermediate Swelling Verified 05/19/24 11:21 acetaminophen (From Vicodin) Allergy Other Verified 05/19/24 11:21 codeine Allergy Other Verified 05/19/24 11:21 hydrocodone bitartrate (From Allergy Other Verified 05/19/24 11:21 Vicodin) Iodinated Contrast Media Allergy Other Verified 05/19/24 11:21 meloxicam (From Mobic) Allergy Swelling Verified 05/19/24 11:21 Sulfa (Sulfonamide Allergy Rash Verified 05/19/24 11:21 Antibiotics) sulfamethoxazole (From Allergy Unknown Verified 05/19/24 11:21 Septra) trimethoprim (From Septra) Allergy Unknown Verified 05/19/24 11:21 Family History Mother Cancer stomach Sister Cancer lung- smoker Father Diabetes Hypertension Surgical History (Updated 05/17/24 @ 12:56 by Sylvie Serna) History of cardiac catheterization Hx of right cataract extraction Hx of left cataract extraction History of esophagogastroduodenoscopy (EGD) Hx of colonoscopy Hx of cholecystectomy H/O heart artery stent H/O hand surgery History of total vaginal hysterectomy (TVH) Social History Smoking Status: Former smoker alcohol intake: never substance use type: does not use caffeine: No what type of physical activity do you participate in: none seatbelt use: always do you feel safe at home: Yes additional social history: - Retired Review of Systems (Anesthesia) ROS Narrative System reviewed and no additional complaints, except as documented.
--- NOTE | 2024-05-19 12:00 | COLBX_PTH ---
PATIENT: WHITNEY SEGOVIA LOC: EN U#:[id number] AGE/SX: 79/F ROOM: RE05/19/[address]: Dr. Rigoberto Nicole DO : 1945 BED: DIS: 05/19/2024 SPEC #: [id number] RECD: 05/19/24 13:07 STATUS: GÓMEZ REDequan #: [id number] HOWARD: 05/19/24 12:[address]: Rigoberto Nicole DEPT: SURGICAL PATHOLOGY RECD BY: Jennifer Robles ENTERED: 05/19/24 13:29 SP TYPE: COLON BX OTHR DR: Dr. Mis Monk MD Tissues: A - Duodenum, NOS B - Esophagus, NOS Procedures: Immunohistochemical Stains Special Stain Group I Surgery Specimen Level IV Alcian Blue/PAS (control) HEADER OPERATION: Colonoscopy, EGD with biopsy PRE-OP DIAGNOSIS: Epigastric pain, right lower quadrant abdominal pain, diverticulitis, GERD TISSUE SUBMITTED: A- Duodenum biopsy, B- Distal esophagus biopsy MICROSCOPIC DIAGNOSIS A. Duodenum, biopsy: Fragments of duodenal mucosa with chronic inflammation, congestion and hemorrhage. B. Distal esophagus, biopsy: A fragment of gastric mucosa with acute and chronic inflammation. Intestinal metaplasia (goblet cell metaplasia) not identified. See comment. SJ.mr 05/20/2024 COMMENT B. Alcian blue/PAS stain with matched control is used in the evaluation of the specimen. MICROSCOPIC DESCRIPTION Slides are reviewed. GROSS DESCRIPTION A. Received in fixative is one container labeled with the patient's name and designated Duodenum biopsy. The specimen consists of two irregular fragments of light alvarado soft tissue that in aggregate measure 0.8 x 0.4 x 0.1 cm. The specimen is totally submitted in one cassette. B. Received in fixative is one container labeled with the patient's name and designated Distal esophagus biopsy. The specimen consists of one irregular fragment of light alvarado soft tissue that measures 0.4 x 0.3 x 0.1 cm. The specimen is totally submitted in one cassette. MS.mr 05/19/2024 TC:3 CPT:[id number] ADDENDUM ADDENDUM ADDENDUM ADDENDUM ADDENDUM ADDENDUM 06/01/2024 13:58 ADDENDUM 06/01/2024 13:58 ADDENDUM 06/01/2024 13:58 ADDENDUM 06/01/2024 13:58 ADDENDUM 06/01/2024 13:58 B. The IHC stain for H.pylori is negative. Matched control tissue stained appropriately. Mr 06/01/2024
--- NOTE | 2024-05-19 12:57 | OP.EGD_ITS ---
Patient Name: Kristal Ruiz Procedure Date: 05/19/2024 12:10 PM Date of : 1945 Age: 79 Procedure: Upper GI endoscopy Indications: Epigastric abdominal pain Providers: Rigoberto Nicole DO Referring MD: Mis Monk Medicines: Monitored Anesthesia Care Patient Profile: This is an 79 year old female. Refer to note in patient chart for documentation of history and physical. Patient has symptoms of acute epigastric abdominal pain. Complications: No immediate complications. Procedure: Pre-Anesthesia Assessment: - Prior to the procedure, a History and Physical was performed, and patient medications and allergies were reviewed. The patient is competent. The risks and benefits of the procedure and the sedation options and risks were discussed with the patient. All questions were answered and informed consent was obtained. Patient identification and proposed procedure were verified by the physician in the pre-procedure area. Mental Status Examination: alert and oriented. Airway Examination: normal oropharyngeal airway and neck mobility. Respiratory Examination: clear to auscultation. CV Examination: normal. Prophylactic Antibiotics: The patient does not require prophylactic antibiotics. Prior Anticoagulants: The patient has taken no anticoagulant or antiplatelet agents except for NSAID medication. ASA Grade Assessment: II - A patient with mild systemic disease. After reviewing the risks and benefits, the patient was deemed in satisfactory condition to undergo the procedure. The anesthesia plan was to use monitored anesthesia care (MAC). Immediately prior to administration of medications, the patient was re-assessed for adequacy to receive sedatives. The heart rate, respiratory rate, oxygen saturations, blood pressure, adequacy of pulmonary ventilation, and response to care were monitored throughout the procedure. The physical status of the patient was re-assessed after the procedure. After obtaining informed consent, the endoscope was passed under direct vision. Throughout the procedure, the patient's blood pressure, pulse, and oxygen saturations were monitored continuously. The pediatric colonoscope was introduced through the mouth, and advanced to the second part of duodenum. The upper GI endoscopy was accomplished with ease. The patient tolerated the procedure well. Scope In: 12:21:37 PM Scope Out: 12:26:51 PM Total Procedure Duration Time 0 hours 5 minutes 14 seconds Findings: LA Grade A (one or more mucosal breaks less than 5 mm, not extending between tops of 2 mucosal folds) esophagitis with no bleeding was found 37 to 40 cm from the incisors. Biopsies were taken with a cold forceps for histology. Verification of patient identification for the specimen was done. Estimated blood loss was minimal. A benign-appearing, intrinsic severe stenosis was found at the pylorus. This was traversed. Many non-bleeding linear duodenal ulcers with no stigmata of bleeding were found in the duodenal bulb, in the first portion of the duodenum, in the second portion of the duodenum and in the third portion of the duodenum. The largest lesion was 5 mm in largest dimension. Impression: - LA Grade A reflux esophagitis with no bleeding. Biopsied. - Gastric stenosis was found at the pylorus. - Non-bleeding duodenal ulcers with no stigmata of bleeding. Recommendation: - Discharge patient to home. - Continue present medications. Procedure Code(s): --- Professional --- 86310, Esophagogastroduodenoscopy, flexible, transoral; with biopsy, single or multiple CPT copyright 2021 [employer]. All rights reserved. The codes documented in this report are preliminary and upon junior systems engineer review may be revised to meet current compliance requirements. Rigoberto Nicole DO 05/19/2024 12:57:19 PM This report has been signed electronically. Number of Addenda: 0 Note Initiated On: 05/19/2024 12:10 PM
--- NOTE | 2024-05-19 12:57 | OP.CCLET_ITS ---
05/19/2024 Mis Monk [address] [place] [address] Re : Upper GI endoscopy procedure for Kristal Ruiz Dear Dr. Monk This procedure was performed on April. My impressions and recommendations are as follows: Impressions : - LA Grade A reflux esophagitis with no bleeding. Biopsied. - Gastric stenosis was found at the pylorus. - Non-bleeding duodenal ulcers with no stigmata of bleeding. Recommendations : - Discharge patient to home. - Continue present medications. My findings are described in the full procedure note, which is enclosed. If I can be of further assistance, please feel free to contact me at . Sincerely, Rigoberto Nicole, 05/19/2024 12:57:19 PM This report has been signed electronically.
--- NOTE | 2024-05-19 13:01 | OP.CCLET_ITS ---
05/19/2024 Mis Monk [address] [place] [address] Re : Colonoscopy procedure for Kristal Ruiz Dear Dr. Monk This procedure was performed on April. My impressions and recommendations are as follows: Impressions : - Diverticulosis in the entire examined colon. - No specimens collected. Recommendations : - Discharge patient to home. - Resume previous diet. - Continue present medications. - Await pathology results. - No repeat colonoscopy due to age. My findings are described in the full procedure note, which is enclosed. If I can be of further assistance, please feel free to contact me at . Sincerely, Rigoberto Nicole, 05/19/2024 1:00:57 PM This report has been signed electronically.
--- NOTE | 2024-05-19 13:01 | OP.COLON_ITS ---
Patient Name: Kristal Ruiz Procedure Date: 05/19/2024 12:27 PM Date of : 1945 Age: 79 Procedure: Colonoscopy Indications: Epigastric abdominal pain, Abdominal pain in the left lower quadrant, Abdominal pain in the right lower quadrant Providers: Rigoberto Nicole DO Referring MD: Mis Monk Medicines: Monitored Anesthesia Care Patient Profile: This is an 79 year old female. Refer to note in patient chart for documentation of history and physical. Patient has symptoms of acute epigastric abdominal pain. Last Colonoscopy: several years ago. Complications: No immediate complications. Procedure: Pre-Anesthesia Assessment: - Prior to the procedure, a History and Physical was performed, and patient medications and allergies were reviewed. The patient is competent. The risks and benefits of the procedure and the sedation options and risks were discussed with the patient. All questions were answered and informed consent was obtained. Patient identification and proposed procedure were verified by the physician in the pre-procedure area. Mental Status Examination: alert and oriented. Airway Examination: normal oropharyngeal airway and neck mobility. Respiratory Examination: clear to auscultation. CV Examination: normal. Prophylactic Antibiotics: The patient does not require prophylactic antibiotics. Prior Anticoagulants: The patient has taken no anticoagulant or antiplatelet agents except for NSAID medication. ASA Grade Assessment: II - A patient with mild systemic disease. After reviewing the risks and benefits, the patient was deemed in satisfactory condition to undergo the procedure. The anesthesia plan was to use monitored anesthesia care (MAC). Immediately prior to administration of medications, the patient was re-assessed for adequacy to receive sedatives. The heart rate, respiratory rate, oxygen saturations, blood pressure, adequacy of pulmonary ventilation, and response to care were monitored throughout the procedure. The physical status of the patient was re-assessed after the procedure. After I obtained informed consent, the scope was passed under direct vision. Throughout the procedure, the patient's blood pressure, pulse, and oxygen saturations were monitored continuously. The pediatric colonoscope was introduced through the anus and advanced to the cecum, identified by appendiceal orifice and ileocecal valve. The colonoscopy was performed without difficulty. The patient tolerated the procedure well. The quality of the bowel preparation was adequate. The ileocecal valve, appendiceal orifice, and rectum were photographed. Scope In: 12:29:15 PM Scope Withdrawal Time 0 hours 8 minutes 27 seconds Scope Out: 12:44:40 PM Total Procedure Duration Time 0 hours 15 minutes 25 seconds Findings: The perianal and digital rectal examinations were normal. Multiple small and large-mouthed diverticula were found in the entire colon. Impression: - Diverticulosis in the entire examined colon. - No specimens collected. Recommendation: - Discharge patient to home. - Resume previous diet. - Continue present medications. - Await pathology results. - No repeat colonoscopy due to age. Procedure Code(s): --- Professional --- 52419, Colonoscopy, flexible; diagnostic, including collection of specimen(s) by brushing or washing, when performed (separate procedure) CPT copyright 2021 [employer]. All rights reserved. The codes documented in this report are preliminary and upon director sales and trade marketing review may be revised to meet current compliance requirements. Rigoberto Nicole DO 05/19/2024 1:00:57 PM This report has been signed electronically. Number of Addenda: 0 Note Initiated On: 05/19/2024 12:27 PM
--- NOTE | 2024-05-19 13:02 | PCM.POST.ANE ---
Anesthesia: Postop Eval I Current Vital Signs Temperature: 97 F Pulse Rate: 68 Blood Pressure: 112/48 Respiratory Rate: 16 Pulse Ox: 98 Oxygen Delivery Method: Room Air Assessment Airway patent: Yes Spontaneous unlabored respirations: Yes Mental status: Awake and Calm nausea: No Vomiting: No Anesthesia Complication: No Fluid Hydration Crystalloid volume administer (ml): 60 Total IV fluid infused: 60 Progress Note Anesthesia document: Postop Eval 1 completed: Yes
--- NOTE | 2024-05-19 16:11 | PCM.POSTANE2 ---
Anesthesia Postop Eval I Sum Postop Eval Completion status Anesthesia document: Postop Eval 1 completed: Yes Anesthesia Postop Eval I Summary Anesthesia Postop Eval I Summary: Anesthesia Postop Eval I: Assessment Summary Airway patent Yes 05/19/24 13:03 [email or web address] Spontaneous unlabored Yes 05/19/24 13:03 [email or web address] respirations Mental status Awake,Calm 05/19/24 13:03 [email or web address] nausea No 05/19/24 13:03 [email or web address] Vomiting No 05/19/24 13:03 [email or web address] Anesthesia Postop Eval I: Fluid Summary Crystalloid volume administer 60 05/19/24 13:03 [email or web address] (ml) Colloids volume administered ( ml) Blood Product volume administered (ml) Total IV fluid infused 60 05/19/24 13:03 [email or web address] Anesthesia Postop Eval I: Summary Notes Anesthesia Complication No 05/19/24 13:03 [email or web address] Anesthesia Complication Comment: Post-operative progress note Anesthesia: Postop Eval II Evaluation Mental status: Awake and Calm Pain Level: 1 nausea: No Vomiting: No Complications Anesthesia Complication: No
== END 2024-05-19 13:45 | disposition home or self-care (01) ==
LOC: EN 10:57 → AC 10:58
PROVIDERS: PCP Internal Medicine; Referring Provider Internal Medicine; Visit Provider Internal Medicine Gastroenterology
PROC: 0DJD8ZZ Inspection of Lower Intestinal Tract, Via Natural or Artificial Opening Endoscopic (ICD-10-PCS; CPT 45378; principal; 2024-05-19 11:55)
DX: K21.00 Gastro-esophageal reflux disease with esophagitis, without bleeding (principal); E11.9 Type 2 diabetes mellitus without complications; I25.10 Atherosclerotic heart disease of native coronary artery without angina pectoris; Z90.710 Acquired absence of both cervix and uterus; E78.00 Pure hypercholesterolemia, unspecified; K26.9 Duodenal ulcer, unspecified as acute or chronic, without hemorrhage or perforation; K57.30 Diverticulosis of large intestine without perforation or abscess without bleeding; R10.31 Right lower quadrant pain; K57.92 Diverticulitis of intestine, part unspecified, without perforation or abscess without bleeding; Z87.891 Personal history of nicotine dependence; Z86.0100 Personal history of colon polyps, unspecified; I10 Essential (primary) hypertension; J45.909 Unspecified asthma, uncomplicated; Z79.51 Long term (current) use of inhaled steroids; Z79.82 Long term (current) use of aspirin; Z98.41 Cataract extraction status, right eye; Z98.42 Cataract extraction status, left eye; Z90.49 Acquired absence of other specified parts of digestive tract; Z95.5 Presence of coronary angioplasty implant and graft; R10.13 Epigastric pain; K31.1 Adult hypertrophic pyloric stenosis
CPT/HCPCS: 43239; 45378; 88305; 88312; 88342; A4216; J2405

== ENCOUNTER 2024-12-06 02:49 | Emergency (ER) | payer MEDICARE, SELFPAY ==
[2024-12-06] VITALS (8 sets, daily range): BP systolic 120–160; BP diastolic 63–75; PULSE 57–65; RESP 16–18; TEMP 36.6–36.8; O2SAT 96–99; BMI 37.3
--- NOTE | 2024-12-06 02:53 | EKG12_ITS ---
Test Reason : CP Blood Pressure : */* mmHG Vent. Rate : 68 BPM Atrial Rate : 68 BPM P-R Int : 150 ms QRS Dur : 64 ms QT Int : 390 ms P-R-T Axes : 14 -14 -7 degrees QTcB Int : 414 ms Normal sinus rhythm Inferior infarct , age undetermined Abnormal ECG Confirmed by Andrew Rubin ([id number]), editor sound AMANDA NOEL ([id number]) on 12/06/2024 10:27:01 AM Referred By: Confirmed By: Andrew Rubin
--- NOTE | 2024-12-06 02:54 | ED.VIS.CHEST ---
HPI History of Present Illness Chief Complaint: Chest Pain Informant: patient, family and EMS Narrative Narrative: 79-year-old female presents around 2:45 AM for chest pain that woke her up from sleep about 1.5 hours ago. She states it feels like a dull ache mid chest radiates to her left shoulder and upper back on the left. No more dyspneic than usual, she has a history of pulmonary fibrosis and is chronically dyspneic. She denies any other acute associated symptoms such as diaphoresis, lightheadedness, nausea, vomiting, palpitations. Has a history of stents and actually saw her radial drill press set up operator yesterday as a routine follow-up, and apparently had a Holter that showed a couple runs of SVT so they added bisoprolol to her medications, but she has not started it yet. She states this is because she has a history of a lot of reactions to medications and she would rather take it for the first time during the day when she was awake. She does not take any anticoagulants. She does have a history of stents. She denies any history of DVT or PE, recent unilateral leg pain/swelling, recent immobilization or long travel, or hospitalization or surgery. [facility] Medical History Urinary tract infection Nocturia Mixed incontinence Overactive bladder Wears dentures History of steroid therapy Thyroid disease Walker as ambulation aid Ambulates with cane Bladder disease Anemia Fatty liver High cholesterol Back pain Syncope History of GI bleed CPAP (continuous positive airway pressure) dependence Asthma Leg cramps History of pain when walking Cardiac arrest History of echocardiogram History of stress test Cardiology follow-up encounter Vitamin D deficiency SVT (supraventricular tachycardia) Osteoarthritis Occipital neuralgia Idiopathic pulmonary fibrosis Hiatal hernia GERD (gastroesophageal reflux disease) CAD (coronary artery disease) Diverticulitis Arthritis Hypertension Diabetes Anxiety Home Medications ?Medication ?Instructions ?Recorded ?Last Taken ?Type fluticasone propionate 50 2 spray intranasal DAILY PRN nasal 03/15/15 Unknown History mcg/actuation nasal congestion spray,suspension albuterol sulfate 90 mcg/actuation 2 puff inhalation Q4H PRN PRN 08/19/18 Unknown History aerosol inhaler (Ventolin HFA) Wheezing aspirin 81 mg chewable tablet 81 mg PO DAILY@0800 08/19/18 05/19/24 History ergocalciferol (vitamin D2) 50 mcg 1.25 mg PO MOWEFR 08/19/18 05/18/24 History (2,000 unit) capsule simethicone 125 mg capsule (Gas 125 mg PO QD-BID PRN abdominal 01/25/24 Unknown History Relief (simethicone)) distention lisinopril 20 mg tablet 20 mg PO DAILY 05/17/24 05/19/24 History torsemide 10 mg tablet 10 mg PO QDAY PRN edema 11/07/24 Unknown History bisoprolol fumarate 5 mg tablet 5 mg PO DAILY 12/06/24 Unknown History famotidine 40 mg tablet 40 mg PO DAILY 12/06/24 Unknown History omeprazole 40 mg capsule,delayed 20 mg PO QDAY 12/06/24 Unknown History release potassium chloride 10 mEq 10 meq PO DAILY PRN SUPPLEMENT 12/06/24 Unknown History tablet,extended release tizanidine 2 mg tablet 2 mg PO TID PRN muscle spasticity 12/06/24 Unknown History Allergy/AdvReac Type Severity Reaction Status Date / Time adhesive Allergy Intermediate Rash Verified 12/06/24 02:50 amlodipine Allergy Intermediate Swelling Verified 12/06/24 02:50 amoxicillin (From Augmentin) Allergy Intermediate Shortness Verified 12/06/24 02:50 of breath carvedilol Allergy Intermediate Other Verified 12/06/24 02:50 ciprofloxacin Allergy Intermediate Other Verified 12/06/24 02:50 clarithromycin Allergy Intermediate Other Verified 12/06/24 02:50 clavulanic acid (From Allergy Intermediate Shortness Verified 12/06/24 02:50 Augmentin) of breath clonidine Allergy Intermediate Other Verified 12/06/24 02:50 dicyclomine Allergy Intermediate Shortness Verified 12/06/24 02:50 of breath diltiazem (From Cardizem) Allergy Intermediate Itching Verified 12/06/24 02:50 doxycycline Allergy Intermediate Vomiting Verified 12/06/24 02:50 duloxetine (From Cymbalta) Allergy Intermediate Other Verified 12/06/24 02:50 guaifenesin Allergy Intermediate Other Verified 12/06/24 02:50 levofloxacin Allergy Intermediate Other Verified 12/06/24 02:50 losartan Allergy Intermediate Other Verified 12/06/24 02:50 metronidazole (From Flagyl) Allergy Intermediate Itching Verified 12/06/24 02:50 rosuvastatin (From Crestor) Allergy Intermediate Other Verified 12/06/24 02:50 valsartan Allergy Intermediate Swelling Verified 12/06/24 02:50 acetaminophen (From Vicodin) Allergy Other Verified 12/06/24 02:50 codeine Allergy Other Verified 12/06/24 02:50 hydrocodone bitartrate (From Allergy Other Verified 12/06/24 02:50 Vicodin) Iodinated Contrast Media Allergy Other Verified 12/06/24 02:50 meloxicam (From Mobic) Allergy Swelling Verified 12/06/24 02:50 Sulfa (Sulfonamide Allergy Rash Verified 12/06/24 02:50 Antibiotics) sulfamethoxazole (From Allergy Unknown Verified 12/06/24 02:50 Septra) trimethoprim (From Septra) Allergy Unknown Verified 12/06/24 02:50 Family History Mother Cancer stomach Sister Cancer lung- smoker Father Diabetes Hypertension Surgical History History of cardiac catheterization Hx of right cataract extraction Hx of left cataract extraction History of esophagogastroduodenoscopy (EGD) Hx of colonoscopy Hx of cholecystectomy H/O heart artery stent H/O hand surgery History of total vaginal hysterectomy (TVH) Social History Smoking Status: Former smoker alcohol intake: never substance use type: does not use caffeine: No what type of physical activity do you participate in: none seatbelt use: always do you feel safe at home: Yes additional social history: - Retired ROS ROS ED Constitutional Constitutional ED: Denies chills or fever(s) Eyes Eyes: Denies change in vision or diplopia ENT ENT ED: Reports other Details: my face felt flushed ; Denies rhinorrhea or sore throat Cardiovascular Cardiovascular: Reports as per HPI and chest pain; Denies lightheadedness, palpitations, pedal edema or syncope Respiratory/Chest Respiratory/Chest: Reports dyspnea and dyspnea on exertion; Denies cough Gastrointestinal Gastrointestinal: Denies abdominal pain, diarrhea, nausea or vomiting Genitourinary Genitourinary ED: Denies dysuria or hematuria Musculoskeletal Musculoskeletal: Denies back pain or neck pain Integumentary Denies abscess or rash Neurologic Neurologic: Denies headache(s), paresthesias or weakness Psychiatric Psychiatric: Denies anxiety or suicidal thoughts EXAM Physical Exam Const Vital Signs: 12/06/24 02:49 12/06/24 02:53 12/06/24 03:49 Temperature 97.8 F Temperature Source Temporal Pulse Rate 65 60 Respiratory Rate 18 18 Blood Pressure 160/67 H 150/69 H Blood Pressure Mean 98 96 Pulse Ox 99 99 96 Oxygen Delivery Method Room Air Room Air Room Air 12/06/24 05:00 12/06/24 06:00 12/06/24 07:00 Temperature Temperature Source Pulse Rate 64 60 57 L Respiratory Rate 18 18 16 Blood Pressure 120/75 151/67 H 133/63 H Blood Pressure Mean 90 95 86 Pulse Ox 98 98 97 Oxygen Delivery Method Room Air Room Air Room Air Positive well nourished and well developed Constitutional Narrative: well-appearing General Appearance ED: well developed and NAD HEENT Reports moist mucous membranes normocephalic and atraumatic Eyes PERRL and EOMs intact bilaterally Neck full ROM and supple Resp normal respiratory effort and clear to auscultation bilaterally Cardio regular rate, regular rhythm and no murmurs GI non-tender and non-distended Auscultation: normoactive bowel sounds Palpation: soft Back/Spine no CVA tenderness General Back: other FROM Extremity normal to inspection General Extremety ED: Negative for edema, pulses abnormal or tenderness General Extremity: Negative for edema or pulses abnormal Neuro oriented x3, CN's II-XII intact bilaterally and no sensory deficits noted Sensorium / Orientation: awake and alert Motor Exam: strength 5/5 throughout Skin no rashes or lesions noted and no wounds Heart Score History: Moderately Suspicious ECG: Normal Age: >/= 65 years Risk Factors: >/= 3 Risk Factors or History of CAD Troponin: >1 - <3 Normal Limit Score: 6 MDM MDM MDM Narrative Medical decision making narrative: I reviewed the EMS prehospital EKG which appeared normal on my interpretation, I repeated the EKG, she is having a little bit of discomfort right now but not severe, and the EKG is unchanged and normal on my interpretation. Given her risk and history of stents, certainly acute coronary syndrome is in the differential, but I favor this potentially being GI in etiology. She states she has a history of reflux and this woke her up from sleep in context of a normal EKG. Therefore while working her up for cardiac etiologies and obtaining serial troponins, am going to give her a GI cocktail to see if that helps her discomfort. It did some, she was then having brief several-second episodes of mild chest discomfort and had a little bit of nausea after the GI cocktail that we treated with Zofran. Initial troponin returned at 19 and second at 21. She is now asymptomatic. Chest x-ray 1 view on my interpretation shows nothing acute as confirmed by radiology. At this time the patient will be observed and we will obtain a third troponin to continue to risk stratify. My suspicion for this being cardiac in etiology is relatively low, and her third troponin came back at 20, given that these are essentially unchanged, plan will be for discharge and close outpt follow up. She has not had a cardiac stress at this hospital, but she states she has had 1 but she cannot remember how long ago it was. She sees a radial drill press set up operator at the system and Dr. Pavon which she plans on following up with which is reasonable. Lab Data Attestation: I reviewed the patient's lab results. Labs: Laboratory Results - last 24 hr 12/06/24 12/06/24 12/06/24 03:00 05:01 06:53 WBC 7.1 RBC 4.32 Hgb 12.5 Hct 38.4 MCV 88.9 MCH 28.9 MCHC 32.6 RDW Std Deviation 43.8 RDW Coeff of Libra 13.4 Plt Count 325 MPV 9.2 Immature Gran % (Auto) 0.400 Neut % (Auto) 58.6 Lymph % (Auto) 21.4 Vance % (Auto) 15.2 H Eos % (Auto) 3.7 Baso % (Auto) 0.7 Absolute Neuts (auto) 4.2 Absolute Lymphs (auto) 1.52 Nucleated RBC % 0 Sodium 139 Potassium 4.4 Chloride 103 Carbon Dioxide 25.4 Anion Gap 11 BUN 23 H Creatinine 0.65 L Estim Creat Clear Calc 54.00 Est GFR (MDRD) Non-Af 89 BUN/Creatinine Ratio 35.7 H Glucose 128 H Calcium 9.6 Troponin T High Sens 19 H Troponin T Hi Sens 2 Hr 21 H Troponin T Hi Sens 4Hr 20 H Radiography Diagnostic Testing: Clinical Impression(s) from Imaging Studies Chest X-Ray 12/06/24 03:10 IMPRESSION: Stable cardiomegaly. Bilateral mid and lower lung zones peripheral faint infiltrates. Follow-up is advised Reading Location: [place] [address] Rhythm Strip Rhythm Strip: Sinus Rhythm Rate: 70 Ectopy: None EKG Initial EKG: Attestation: I personally reviewed and interpreted this EKG as follows: Interpretation: Sinus Rhythm and No Acute Injury Pattern Comments: Nml axis & intervals; nml EKG Prior EKG tracings: available for review Prior: Unchanged Discharge Plan Triage Chief Complaint: Chest Pain ED Provider: Kenny Conklin Dx/Rx/DC Orders Clinical Impression: Chest pain, unspecified Instructions: ED Chest Pain, Uncertain Cause Prescriptions: No Action simethicone [Gas Relief (simethicone)] 125 mg capsule 125 mg PO QD-BID PRN (Reason: abdominal distention) torsemide 10 mg tablet 10 mg PO QDAY PRN (Reason: edema) fluticasone propionate 16 GM spray,suspension 2 spray intranasal DAILY PRN (Reason: nasal congestion) aspirin 81 MG tablet,chewable 81 mg PO DAILY@0800 albuterol sulfate [Ventolin HFA] 1 INHALER inhaler 2 puff inhalation Q4H PRN PRN (Reason: Wheezing) ergocalciferol (vitamin D2) 50 MCG capsule 1.25 mg PO MOWEFR lisinopril 20 mg tablet 20 mg PO DAILY famotidine 40 mg tablet 40 mg PO DAILY bisoprolol fumarate 5 mg tablet 5 mg PO DAILY potassium chloride 10 mEq tablet extended release 10 meq PO DAILY PRN (Reason: SUPPLEMENT) tizanidine 2 mg tablet 2 mg PO TID PRN (Reason: muscle spasticity) omeprazole 40 mg capsule,delayed release(DR/EC) 20 mg PO QDAY Rx Instructions: take 30 minutes before breakfast every morning Primary Care Provider: Mis Monk Referrals: Mis Monk MD [Primary Care Provider] - 5-7 Days Print Language: Tajik Disposition Disposition: Home, Self Care
[2024-12-06] MEDS: Lidocaine 2% Viscous15 ML UDC 15 ML PO (03:01)
[2024-12-06 03:06] LABS: Hematocrit 38.4 % (37-47); Hemoglobin 12.5 g/dL (12.0-15.0); Immature Granulocytes Count 0.030 X10^3/uL (0.0-0.0); Mean Corp Hgb Conc 32.6 g/dL (32-36); Mean Corpuscular Volume 88.9 fL (81-99); Mean Platelet Vol. 9.2 fl (6.2-12.0); NRBC Flagged by Analyzer 0 % (0-5); Platelet Count 325 K/mm3 (150-450); RBC Distribution Width CV 13.4 % (11.6-14.6); RBC Distribution Width SD 43.8 fl (35.1-43.9); Red Blood Count 4.32 M/mm3 (4.2-5.4); White Blood Count 7.1 K/mm3 (4.4-11.0)
--- NOTE | 2024-12-06 03:10 | RAD_ITS ---
PROCEDURE: CHEST 1 VIEW (PORTABLE) 12/06/2024 REASON FOR EXAM: CHEST PAIN TECHNIQUE: Frontal view of the chest. COMPARISON: 07/03/2020 FINDINGS: There is stable enlarged cardiac size. Aortic calcifications are noted. Bilateral mid and lower lung zone peripheral faint infiltrates are seen. No effusion. No pneumothorax. Stable osseous structures. RAD/Chest 1 View (Portable) IMPRESSION: Stable cardiomegaly. Bilateral mid and lower lung zones peripheral faint infiltrates. Follow-up is advised Reading [facility]
[2024-12-06 03:42] LABS: Anion Gap 11 (5-15); BUN 23 mg/dL (4-19); BUN/Creat Ratio 35.7 RATIO (10-20); Calcium,Total 9.6 mg/dL (7.6-11.0); Carbon Dioxide 25.4 mmol/L (21.0-32.0); Chloride 103 mmol/L (98-108); Estimated Creatinine Clearance 54.00 ml/min (50-250); Glucose 128 mg/dL (70-99); Potassium 4.4 mmol/L (3.3-5.1); Troponin T High Sensitivity 19 ng/L (<=14)
--- OUTSIDE RECORDS SUMMARY | 2024-12-06 03:47 | XMS RPT_ITS | CCD ---
Author Organization [facility] Care Team Providers Care Fleet Manager Name Role Phone Lien Gibbs Unavailable Unavailable Unavailable, Family Physician Unavailable Un available Unavailable, Family Physician Unavailable Un available Latrell Balderrama Unavailable Unavailable Latrell Balderrama Unavailable Unavailable Altaqradha Basel Unavailable Unavailable Franck Lambert Unavailable Unavailable Dereje Oropeza Unavailable Unavailable Talampas, Kristy Unavailable Unavailable Dereje Oropeza Unavailable Unavailable Talampas, Kristy Unavailable Bradly Tejeda Unavailable UnavailKristy Mauricio MD Primary Care Provider Bib Ballard I Unavailable Unavailable Bernadine Mcclain Unavailable Franck Lambert Unavailable Rocael Andrade Unavailable Kristy Brower MD Primary Care Provider Bernadine Mcclain Unavailable Unavailable Ishmael Velásquez Unavailable Unavailable Lillian Cote Unavailable Unavailable Evan Vaughan Unavailable Kristy Brower MD Primary Care Provider Aleshia, Kristy Unavailable Unavailable Unavailable Dr. Franck Lambert Attending Unavailable Dr. Franck Lambert Referring Unavailable Talampas, Kristy Primary Care Unavailable Dr. Franck Lambert Admitting Unavailable Talampas, Kristy Primary Care Unavailable Petra, Dr. Bills Attending Unavailable Estuardo Huang Unavailable Unavailable Dr. Estuardo Huang Attending Unavaila ble Talampas, Kristy Primary Care Unavailable Kera, Dr. Lillian Baron Attending Unavailabl e Talampas, Kristy Primary Care Unavailable Thomae, Dr. Evan Perez Attending Unavailable Thomae, Dr. Evan Perez Admitting Unavailable Talampas, Kristy Primary Care Unavailable Thomae, Dr. Evan Perez Referring Unavailable Talampas , Kristy D Primary Care Provider TALAMPAS, KRISTY D Primary Care Unavailable Talampas Kristy SOMMER Primary Care Provider TalampKristy pickard MD Primary Care Provider PETRA FRANCK Attending Unavailable TALAMPAS, KRISTY D Primary Care Unavailable BERNADINE MCCLAIN Attending Unavailable TALAMPAS, KRISTY D Primary Care Unavailable LAMBERT, FRANCK Attending Unavailable LAMBERT, FRANCK Referring Unavailable TALAMPAS, KRISTY D Primary Care Unavailable Trammell DIRECTOR GLOBAL SALES.WEED SCIENCE RESEARCH TECHNICIAN, Virginie Unavailable Otoniel DIRECTOR GLOBAL SALES.CIRCUIT TESTER, Kojo Unavailable TALAMPAS, KRISTY D Primary Care Unavailable LAMBERT, FRANCK Referring Unavailable TALAMPAS, KRISTY D Primary Care Unavailable LAMBERT, FRANCK Referring Unavailable TALAMPAS, KRISTY D Primary Care Unavailable TALAMPAS, KRISTY D Primary Care Unavailable JOHANNA PATINO Referring Unavailable TALAMPAS, KRISTY D Primary Care Unavailable TALAMPAS, KRISTY D Primary Care Unavailable ELIZABETH MARC Admitting Unavailable EMMANUEL GRISSOM Attending Unavailable LAMBERT, FRANCK Referring Unavailable TALAMPAS, KRISTY D Primary Care Unavailable Otoniel DIRECTOR GLOBAL SALES.CIRCUIT TESTER, Kojo Sue Unavailable Otoniel DIRECTOR GLOBAL SALES.CIRCUIT TESTER, Kojo Unavailable Otoniel DIRECTOR GLOBAL SALES.CIRCUIT TESTER, Kojo Unavailable Otoniel DIRECTOR GLOBAL SALES.CIRCUIT TESTER, Kojo Unavailable Shantal Mccauley Attending Unavailable Talampas, Kristy D Referring Unavailable Talampas, Kristy D Primary Care Unavailable Shantal Mccauley Attending Unavailable Talampas, Kristy D Referring Unavailable Talampas, Kristy D Primary Care Unavailable Rigoberto Nicole Attending Unavailable Talampas, Kristy D Referring Unavailable Talampas, Kristy D Primary Care Unavailable Shantal Mccauley Attending Unavailable Talampas, Kristy D Primary Care Unavailable Friend, Rigoberto Attending Unavailable Talampas, Kristy D Primary Care Unavailable Nydia Jhaveri Attending Unavailable Talampas, Kristy D Primary Care Unavailable Talampas, Kristy D Referring Unavailable Shantal Mccauley Attending Unavailable Talampas, Kristy D Referring Unavailable Talampas, Kristy D Primary Care Unavailable FriendRigoberto Consulting Unavailable FriendRigoberto Attending Unavailable Talampas, Kristy D Referring Unavailable Talampas, Kristy D Primary Care Unavailable Trammell DIRECTOR GLOBAL SALES.WEED SCIENCE RESEARCH TECHNICIAN, Virginie Unavailable FLORES ALONZO Attending Unavailable SUKUMAR, JOHANNA Referring Unavailable TALAMPAS, KRISTY D Primary Care Unavailable LAMBERT, FRANCK Attending Unavailable LAMBERT, FRANCK Referring Unavailable TALAMPAS, KRISTY D Primary Care Unavailable SUKUMAR, JOHANNA Attending Unavailable TALAMPAS, KRISTY D Primary Care Unavailable SUKUMAR, JOHANNA Attending Unavailable TALAMPAS, KRISTY D Primary Care Unavailable SUKUMAR, JOHANNA Attending Unavailable TALAMPAS, KRISTY D Primary Care Unavailable LAMBERT, FRANCK Attending Unavailable TALAMPAS, KRISTY D Primary Care Unavailable LAMBERT, FRANCK Referring Unavailable LAMBERT, FRANCK Referring Unavailable TALAMPAS, KRISTY D Primary Care Unavailable LAMBERT, FRANCK Attending Unavailable LAMBERT, FRANCK Referring Unavailable TALAMPAS, KRISTY D Primary Care Unavailable Aleshia SOMMER, Dr. Kristy Maciel Primary Care Provider Dr. Kristy Brower MD Referring Provider Gianni SOMMER, Dr. Gallego Attending Provider TALAMPAS, KRISTY D Primary Care Unavailable KOJO FREDERICK Referring Unavailable TALAMPAS, KRISTY D Primary Care Unavailable TALAMPAS, KRISTY D Referring Unavailable TALAMPAS, KRISTY D Primary Care Unavailable ANASTASIA SMITH Attending Unavailable TALAMPAS, KRISTY D Primary Care Unavailable ANASTASIA SMITH Referring Unavailable TALAMPAS, KRISTY D Primary Care Unavailable JACKELIN LARES Attending Unavailable TALAMPAS, KRISTY D Primary Care Unavailable JACKELIN LARES Referring Unavailable TALAMPAS, KRISTY D Primary Care Unavailable AKSHATAMPAS, KRISTY D Attending Unavailable AKSHATAMPAS, KRISTY D Primary Care Unavailable TALAMPAS, KRISTY D Attending Unavailable TALAMPAS, KRISTY D Primary Care Unavailable TALAMPAS, KRISTY D Attending Unavailable TALAMPAS, KRISTY D Primary Care Unavailable OTONIEL, KOJO Attending Unavailable TALAMPAS, KRISTY D Primary Care Unavailable KIRIT CHAVEZ Attending Unavailable TALAMPAS, KRISTY D Primary Care Unavailable TALAMPAS, KRISTY D Attending Unavailable TALAMPAS, KRISTY D Primary Care Unavailable OTONIEL, KOJO Attending Unavailable TALAMPAS, KRISTY D Primary Care Unavailable OTONIEL, KOJO Referring Unavailable TALAMPAS, KRISTY D Primary Care Unavailable TALAMPAS, KRISTY D Attending Unavailable TALAMPAS, KRISTY D Primary Care Unavailable OTONIEL, KOJO Attending Unavailable TALAMPAS, KRISTY D Primary Care Unavailable TALAMPAS, KRISTY D Attending Unavailable TALAMPAS, KRISTY D Primary Care Unavailable TALAMPAS, KRISTY D Attending Unavailable TALAMPAS, KRISTY D Primary Care Unavailable TALAMPAS, KRISTY D Referring Unavailable TALAMPAS, KRISTY D Primary Care Unavailable OTONIEL, KOJO Attending Unavailable TALAMPAS, KRISTY D Primary Care Unavailable TALAMPAS, KRISTY D Referring Unavailable Allergies Allergy Classification Reported Allergen(s) Allergy Type Date of Onset Reaction(s) Facility (8 sources) Contrast media Allergy to substance (finding) -[facility] Work Phone: (20 sources) amLODIPine; Translations: [AMLODIPINE] Drug Allergy 12-11-19 22 Swelling [facility] (20 sources) Amoxicillin; Translations: [AMOXICILLIN] Drug Allergy 05-16-19 16 Intolerance, Other [facility] Comment on above: SOB (20 sources) Ciprofloxacin; Translations: [CIPROFLOXACIN] Drug Allergy 08-05-19 14 Other: See Comments, Unknown [facility] Comment on above: muscle pain (20 sources) Codeine; Translations: [CODEINE] Drug Allergy 04-24-19 07 Shortness of Breath, Other [facility] Comment on above: SOB (20 sources) Dicyclomine; Translations: [DICYCLOMINE] Drug Allergy 05-19-19 14 Shortness of Breath, Other [facility] Comment on above: SOB (20 sources) DULoxetine; Translations: [DULOXETINE] Drug Allergy 08-15-19 15 Other: See Comments, Unknown [facility] Comment on above: elevated BP and bloo d sugar (20 sources) iopromide; Translations: [IOPROMIDE] Drug Allergy 01-19-20 10 Other: See Comments, Unknown [facility] (20 sources) levoFLOXacin; Translations: [LEVOFLOXACIN] Drug Allergy 08-05-19 14 Other: See Comments, Unknown [facility] Comment on above: muscle pain (20 sources) Losartan; Translations: [LOSARTAN] Drug Allergy 10-04-19 20 Other: See Comments, Unknown [facility] Comment on above: made me loose hair (20 sources) meloxicam; Translations: [MELOXICAM] Drug Allergy 10-12-19 08 Swelling [facility] (20 sources) metroNIDAZOLE; Translations: [METRONIDAZOLE] Drug Allergy 02-17-20 13 Itching [facility] (20 sources) Morphine; Translations: [MORPHINE] Drug Allergy 10-06-19 12 Itching [facility] (6 sources) Sulfonamides (Antibiotic) Rash [facility] (20 sources) valsartan; Translations: [VALSARTAN] Drug Allergy 11-18-19 18 Swelling [facility] (6 sources) Tape - Adhesive, Bandaids, Paper Rash [facility] (6 sources) chest tightness Other [facility] Comment on above: chest tightness (20 sources) Acetaminophen / HYDROcodone; Translations: [HYDROCODONE-ACETAM INOPHEN] Drug Allergy 08-11-19 07 Intolerance, Unknown [facility] Work Phone: (20 sources) Adhesive agent; Translations: [ADHESIVE] Drug Allergy 03-27-20 10 [facility] Work Phone: (20 sources) amLODIPine; Translations: [AMLODIPINE BESYLATE] Drug Allergy 10-21-19 18 Swelling [facility] (20 sources) Amoxicillin / Clavulanate; Translations: [AMOXICILLIN-POT CLAVULANATE] Drug Allergy 03-09-20 12 Shortness of Breath, Unknown, Other [facility] Work Phone: (20 sources) carvedilol; Translations: [CARVEDILOL] Drug Allergy 10-04-19 20 Intolerance, Unknown [facility] Work Phone: Comment on above: grumpy, runny nose (20 sources) Clarithromycin; Translations: [CLARITHROMYCIN] Drug Allergy 02-17-20 13 Mental Status Change, Unknown [facility] Work Phone: Comment on above: mental status change (20 sources) cloNIDine; Translations: [CLONIDINE] Drug Allergy 07-07-19 14 Intolerance, Unknown [facility] Work Phone: Comment on above: low heart rate (20 sources) dilTIAZem; Translations: [DILTIAZEM] Drug Allergy 03-16-20 19 Intolerance, Unknown [facility] Work Phone: (20 sources) Doxycycline; Translations: [DOXYCYCLINE] Drug Allergy 03-11-20 12 Vomiting, Nausea/vomitin g [facility] Work Phone: (20 sources) Lovastatin; Translations: [LOVASTATIN] Drug Allergy 09-12-19 10 Intolerance, Unknown [facility] Work Phone: (20 sources) NIFEdipine; Translations: [NIFEDIPINE] Drug Allergy 03-16-20 19 Intolerance, Unknown [facility] Work Phone: (20 sources) rosuvastatin; Translations: [ROSUVASTATIN CALCIUM] Drug Allergy 09-12-19 10 Intolerance [facility] Work Phone: (20 sources) Sulfonamides (Antibiotic); Translations: [SULFA (SULFONAMIDE ANTIBIOTICS)] Propensity to adverse reactions 04-24-19 07 Rash [facility] Work Phone: (20 sources) Guaifenesin-Sodium Citrate; Translations: [GUAIFENESIN-SODIUM CITRATE] Propensity to adverse reactions 04-24-19 07 Intolerance, Other [facility] Work Phone: (2 sources) Acetaminophen / HYDROcodone Drug Allergy 12-11-19 [facility] (2 sources) amLODIPine Drug Allergy 12-11-19 [facility] (2 sources) Amoxicillin / Clavulanate Drug Allergy 12-11-19 [facility] (2 sources) carvedilol Drug Allergy 12-11-19 [facility] (2 sources) Clarithromycin Drug Allergy 12-11-19 [facility] (2 sources) dilTIAZem Drug Allergy 12-11-19 [facility] (20 sources) Doxylamine; Translations: [DOXYLAMINE] Drug Allergy 12-11-19 Unknown [facility] (2 sources) DULoxetine Drug Allergy 12-11-19 [facility] (20 sources) guaiFENesin; Translations: [GUAIFENESIN] Drug Allergy 12-11-19 Unknown [facility] Comment on above: jittery (2 sources) meloxicam Drug Allergy 12-11-19 [facility] (2 sources) metroNIDAZOLE Drug Allergy 12-11-19 [facility] (2 sources) rosuvastatin Drug Allergy 12-11-19 [facility] (20 sources) sulfabenzamide; Translations: [SULFABENZAMIDE] Drug Allergy 12-11-19 Unknown [facility] (2 sources) valsartan Drug Allergy 12-11-19 [facility] (1 source) Propensity to adverse reactions to drug 12-11-19 [facility] (1 source) Propensity to adverse reactions to drug 12-11-19 [facility] (1 source) Propensity to adverse reactions to drug 12-11-19 [facility] (1 source) Propensity to adverse reactions to drug 12-11-19 22 [facility] (20 sources) dilTIAZem; Translations: [DILTIAZEM HCL] Drug Allergy 12-11-19 [facility] Work Phone: (20 sources) rosuvastatin; Translations: [ROSUVASTATIN] Drug Allergy 12-11-19 [facility] Work Phone: Comment on above: muscle aches (20 sources) Adhesive Tape-Silicones; Translations: [ADHESIVE TAPE-SILICONES] Drug Allergy 01-09-20 23 [facility] (11 sources) Acetaminophen; Translations: [ACETAMINOPHEN] Drug Allergy 01-25-20 [facility] (11 sources) Clavulanate; Translations: [CLAVULANIC ACID] Drug Allergy 01-25-20 [facility] Work Phone: (10 sources) HYDROcodone; Translations: [HYDROCODONE] Drug Allergy 01-25-20 [facility] Work Phone: (11 sources) Sulfamethoxazole; Translations: [SULFAMETHOXAZOLE] Drug Allergy 01-25-20 [facility] Work Phone: (11 sources) Trimethoprim; Translations: [TRIMETHOPRIM] Drug Allergy 01-25-20 [facility] Work Phone: (10 sources) Iodinated Contrast Media; Translations: [IODINATED CONTRAST MEDIA] Drug Allergy 01-25-20 [facility] Work Phone: (1 source) Acetaminophen Drug Allergy 06-01-19 25 [facility] (1 source) amLODIPine Drug Allergy 06-01-19 25 [facility] (1 source) Amoxicillin Drug Allergy 06-01-19 25 [facility] (1 source) carvedilol Drug Allergy 06-01-19 25 [facility] (1 source) Ciprofloxacin Drug Allergy 06-01-19 25 [facility] (1 source) Clarithromycin Drug Allergy 06-01-19 25 [facility] (1 source) Clavulanate Drug Allergy 06-01-19 [facility] (1 source) cloNIDine Drug Allergy 06-01-19 [facility] (1 source) Codeine Drug Allergy 06-01-19 [facility] (1 source) Dicyclomine Drug Allergy 06-01-19 [facility] (1 source) dilTIAZem Drug Allergy 06-01-19 [facility] (1 source) Doxycycline Drug Allergy 06-01-19 [facility] (1 source) DULoxetine Drug Allergy 06-01-19 [facility] (1 source) guaiFENesin Drug Allergy 06-01-19 [facility] (2 sources) HYDROcodone Drug Allergy 06-01-19 Other [facility] (1 source) levoFLOXacin Drug Allergy 06-01-19 [facility] (1 source) Losartan Drug Allergy 06-01-19 [facility] (1 source) meloxicam Drug Allergy 06-01-19 [facility] (1 source) metroNIDAZOLE Drug Allergy 06-01-19 [facility] (1 source) rosuvastatin Drug Allergy 06-01-19 [facility] (1 source) Sulfamethoxazole Drug Allergy 06-01-19 [facility] (1 source) Sulfonamides (Antibiotic) Drug allergy (disorder) 06-01-19 [facility] (1 source) Trimethoprim Drug Allergy 06-01-19 [facility] (1 source) valsartan Drug Allergy 06-01-19 [facility] (1 source) Iodinated Contrast Media Drug allergy (disorder) 06-01-19 [facility] (1 source) Sulfonamides (Antibiotic) Allergy to substance 11-08-19 Rash [facility] (1 source) Triiodobenzoic Acids Allergy to substance 11-08-19 Other [facility] Medications Current Medications Medication Drug Class(es) Dates Sig (Normalized) Sig (Original) acetaminophen 325 mg oral tablet (20 sources) Start: 03-15-2024 End: 03-16-2024 975 mg (rounded from 1,000 mg), oral, 3 times daily PRN, pain mild (1-3), first line, fever (temp greater than 38.0 C), headaches, Starting on Thu03/16/24 at 2044, If ordered PRN for pain, nurse is permitted to administer this medication for higher pain scores based on patient preference? Yes take 2 tablets by mo uth every twenty-four hours as needed acetaminophen (Tylenol) 500 mg tablet Ta ke 2 tablets (1,000 mg) by mouth once daily as needed. Active ACETAMINOPHEN (T YLENOL ORAL) Take 500 mg by mouth as needed. Active Comment on above: Take 500 mg by mouth as needed. acetaminophen 325 mg / oxyCODONE hydrochloride 5 mg oral tablet (15 sources) Opioid Agonist Start: 12-25-2023 End: 01-01-2024 take 1 tablet by mouth every six hours as needed for pain oxyCODONE-acetamino phen (PERCOCET) 5-325 mg tablet Indications: Chronic bilateral thoracic back pain Take 1 tablet by mouth every 6 hours as needed for pain for up to 7 days. 28 tablet 12/25/2023 01/01/2024 Active Start: 07-31-2023 End: 08-07-2023 take 1 tablet by mouth every eight hours as needed for pain oxyCODONE-acetaminophen (PERCOCET) 5-325 mg tablet Indications: Chronic pain of left knee , Chronic right shoulder pain Take 1 tablet by mouth every 8 hours as needed for pain for up to 7 days. 21 tablet 0 07/31/2023 08/07/2023 Active Start: 05-05-2023 End: 05-10-2023 take 1 tablet by mouth every eight hours as needed for pain oxyCODONE-acetaminophen (PERCOCET) 5-325 mg tablet Indications: DDD (degenerative disc disease), cervical , Chronic right shoulder pain Take 1 tablet by mouth every 8 hours as needed for pain for up to 5 days. 15 tablet 05/05/2023 05/10/2023 Start: 12-24-2022 End: 05-05-2023 take 1 tablet by mouth every six hours oxyCODONE-acetaminophen (PERCOCET) 5-325 mg tablet Take 1 tablet by mouth every 6 hours. 0 12/24/2022 05/05/2023 Discontinued Start: 11-05-2022 End: 11-12-2022 take 1 tablet by mouth twice daily as needed for pain oxyCODONE-acetaminophen (PERCOCET) 5-325 mg tablet Indications: DDD (degenerative disc disease), cervical , Chronic right-sided thoracic back pain Take 1 tablet by mouth twice daily as needed for pain for up to 7 days. 14 tablet 0 11/05/2022 11/12/2022 take 1 tablet by ryan th once daily at bedtime as needed for pain oxycodone-acetaminophen 5 mg-325 mg oral tablet ; 1 tab(s) orally once a day (at bedtime), As Needed - for pain Quantity: 0 Refills: 0 Ordered: 29-Dec-2020 Kiko Perez Status: Other Generic Substitution Allowed Comment on above: Take 1 tablet by ryan th twice daily as needed for pain for up to 7 days. Caution federal law prohibits the transfer of this drug to any person other than the person for whom it was prescribed.May cause drowsiness. Alcohol may intensify this effect. Use care when operating dangerous machinery.This prescription cannot be refilled.This product contains acetaminophen. Do not use with any other product containing acetaminophen to prevent possible liver damage.Using more of this medication than prescribed may cause serious breathing problems. Take 1 tablet by ryan th every 6 hours. Take 1 tablet by ryan th every 8 hours as needed for pain for up to 5 days. [id number] actuat albuterol 0.09 mg/actuat metered dose inhaler (20 sources) beta2-Adrenergic Agonist Start: take 2 puff(s) by inhalation every four hours as needed for wheezing 2 puff, inhalation, Every 4 hours PRN, wheezing, Starting on Thu03/15/24 at 2201, Pt may use home MDI at bedside Shake well before use. Start: 01-16-2022 End: 04-21-2022 take 2.5 mg by inhalation every four hours as needed albuterol (PROVENTIL) 2.5 mg /3 mL (0.083 %) nebulizer solution Use 3 mL via nebulizer every 4 hours as needed for wheezing/shortness of breath. OVER 5-15 MINUTES. FOR WHEEZING AND SHORTNESS OF BREATH. 120 mL 5 01/16/2022 04/21/2022 Discontinued Start: 12-23-2021 take 1 puff(s) by in halation every four hours as needed albuterol 90 mcg/inh inhalation aerosol ; 1 puff(s) inhaled every 4 hours, As Needed -for shortness of breath Quantity: 1 Refills: 0 Ordered: 23-Dec-2021 YungIshmael montenegro Start: 23-Dec-2021 Generic Substitution Allowed Start: 12-23-2021 take 1 puff(s) by in halation every four hours albuterol 90 mcg/actuation inhaler Inhale 1 puff every 4 hours if needed for shortness of breath. 12/23/2021 Active Start: 08-19-2018 Albuterol Sulf ate (Ventolin Hfa (Sp)) 1 INHALER inhaler Active 2 NMA INHALATION EVERY 4 HOURS NEEDED as needed for Wheezing August 19, 2018 12:00am Start: 04-06-2012 End: 10-22-2021 take 1-2 puff(s) by inhalation every four hours as needed for wheezing albuterol HFA (PROVENTIL HFA, VENTOLIN HFA) 90 mcg/actuation inhaler Inhale 1-2 Puffs as instructed every 4 hours as needed (for wheezing and shortness of breath). 1 Inhaler 11 10/22/2021 Active End: 03-15-2024 take 3 mL by inhalation every six hours as needed albuterol 2.5 mg /3 mL (0.083 %) nebulizer solution Inhale 3 mL every 6 hours if needed. 03/15/2024 Discontinued (Entered in Error) take 1 puff(s) by in halation every six hours as needed albuterol 90 mcg/inh inhalation aerosol ; 1 puff(s) inhaled every 6 hours, As Needed - for shortness of breath Quantity: 0 Refills: 0 Ordered: 29-Dec-2020 Kiko Perez Generic Substitution Allowed Comment on above: Inhale 1-2 Puffs as instructed every 4 hours as needed (for wheezing and shortness of breath). Use 3 mL via nebuliz er every 4 hours as needed for wheezing/shortness of breath. OVER 5-15 MINUTES. FOR WHEEZING AND SHORTNESS OF BREATH. aspirin 81 mg delayed release oral tablet (20 sources) Platelet Aggregation Inhibitor, Nonsteroidal Anti-inflammatory Drug Start: 07-03-2022 take 81 mg by mouth once daily 81 mg, oral, Daily, First dose on Thu03/16/24 at 0900, Do not crush, chew, or split. Start: 08-19-2018 [id number] Medicat ion aspirin 81 mg chewable tablet Aspirin Childrens 81 mg 12/10/2021 Active (Outside) take 1 tablet by ryan th once daily aspirin 81 mg capsule Take 1 tablet by mouth once daily. Active Comment on above: Take 81 mg by mouth once daily. vhfbof-efsyjsvrlso-Wv Cl-NaHCO3 137 mcg-50 mcg- 0.9 % kit,spray suspension and spray (12 sources) Start: 03-13-2023 End: 10-12-2023 take 1 spray(s) nasal route twice daily gnqydb-nlflyzpcdab-KuA l-NaHCO3 137 mcg-50 mcg- 0.9 % kit,spray suspension and spray Indications: Seasonal allergic rhinitis due to other allergic trigger Please use 1 spray in each nostril twice daily. 3 kit 3 03/13/2023 10/12/2023 Discontinued (Med List Cleanup) Start: 03-13-2023 take 1 spray(s) nasa l route twice daily iyxtxb-xlanjhctuat-PfMi-NaHCO3 137 mcg-5 0 mcg- 0.9 % kit,spray suspension and spray Indications: Seasonal allergic rhinitis due to other allergic trigger Please use 1 spray in each nostril twice daily. 3 kit 3 03/13/2023 Active Start: 01-09-2023 End: 03-13-2023 take 1 spray(s) nasal route twice daily ekjtga-kbssjksuovu-BuIz-NaHCO3 137 mcg-5 0 mcg- 0.9 % kit,spray suspension and spray Indications: Seasonal allergic rhinitis due to other allergic trigger Please use 1 spray in each nostril twice daily. 1 kit 3 01/09/2023 03/13/2023 Discontinued (Reorder) Start: 01-09-2023 take 1 spray(s) nasa l route twice daily ljpdaf-meimordgcyz-LzAl-NaHCO3 137 mcg-5 0 mcg- 0.9 % kit,spray suspension and spray Indications: Seasonal allergic rhinitis due to other allergic trigger Please use 1 spray in each nostril twice daily. 1 kit 3 01/09/2023 Active azelastine hydrochloride 0.137 mg/actuat metered dose nasal spray (20 sources) Histamine-1 Receptor Antagonist Start: 10-12-2023 take 1 spray(s) nasal route twice daily azelastine (Astelin) 137 mcg (0.1 %) nasal spray Indications: Perennial allergic rhinitis with seasonal variation Administer 1 spray into each nostril 2 times a day. Use in each nostril as directed 1 mL 11 10/12/2023 Active Start: 12-05-2022 End: 03-24-2024 take 1 spray(s) nasal route twice daily azelastine 0.1% nasal spray Indications: Chronic rhinitis Use 1 Coleman in each nostril two times a day. 30 mL 2 03/24/2024 Active Start: 11-18-2021 End: 12-30-2021 take 1 spray(s) nasal route twice daily azelastine (ASTELIN, ASTEPRO) 0.1% nasal spray Use 1 Coleman in each nostril twice daily. 30 mL 11 11/18/2021 12/30/2021 Discontinued Comment on above: Use 1 Coleman in each nostril twice daily. azithromycin 250 mg oral tablet (2 sources) Macrolide Antimicrobial Start: 12-24-19 take 2 tablets by mouth once daily, then take 1 tablet by mouth once daily azithromycin 250 mg oral tablet ; 2 tabs on first day, then 1 tablet per day x 4 days Quantity: 6 Refills: 0 Ordered: 23-Dec-2021 Noelletalib Ishmael Start: 23-Dec-2021 Status: Other Generic Substitution Allowed Comments: Do not take dairy products, antacids, or iron preparations within one hour of this medication.Finish all this medication unless otherwise directed by prescriber. Comment on above: Do not take dairy pr oducts, antacids, or iron preparations within one hour of this medication.Finish all this medication unless otherwise directed by prescriber. benzocaine 15 mg / menthol 3.6 mg oral lozenge (1 source) Standardized Chemical Allergen Start: 03-15-20 1 lozenge, Mouth/Throat, Every 2 hour PRN, sore throat, Starting on Thu03/15/24 at 2214 bifidobacterium animalis [id number] unt / lactobacillus acidophilus [id number] unt oral capsule (20 sources) End: 12-25-19 L. acidophilus/Bifid. animalis 15.5 billion cell capsule Take by mouth. Active take 1 capsule by mouth once jose ly Probiotic Formula oral capsule ; 1 cap(s) orally once a day Quantity: 0 Refills: 0 Ordered: 29-Dec-2020 Kiko Perez Status: Other Generic Substitution Allowed Comment on above: Take by mouth. bisoprolol fumarate 5 mg oral tablet (1 source) beta-Adrenergic [place] Start: 12-05-2024 End: 12-05-2025 take 1 tablet by mouth once daily bisoprolol (Zebeta) 5 mg tablet Indications: Coronary artery disease involving [place] coronary artery of [place] heart without angina pectoris , Heart palpitations , Essential hypertension Take 1 tablet (5 mg) by mouth once daily. 30 tablet 11 12/05/2024 12/05/2025 Active Budesonide / formoterol (6 sources) Corticosteroid, beta2-Adrenergic Agonist Start: 01-09-2023 End: 03-13-2023 take 2 puff(s) by mouth twice daily budesonide-formoteroL (Symbicort) 160-4.5 mcg/actuation inhaler Indications: Moderate persistent asthma without complication Inhale 2 puffs 2 times a day. Rinse mouth with water after use to reduce aftertaste and incidence of candidiasis. Do not swallow. 1 each 3 01/09/2023 03/13/2023 Discontinued (Therapy completed) Start: 01-09-2023 End: 01-09-2024 take 2 puff(s) by mouth twice daily budesonide-formoteroL (Symbicort) 160-4.5 mcg/actuation inhaler Indications: Moderate persistent asthma without complication Inhale 2 puffs 2 times a day. Rinse mouth with water after use to reduce aftertaste and incidence of candidiasis. Do not swallow. 1 each 3 01/09/2023 01/09/2024 Active [facility] NASAL OINTMENT (19 sources) Start: 01-01-2023 End: 01-01-2024 [facility] NASAL OINTMENT Apply to affected area two times a day. 60 g 11 01/01/2023 01/01/2024 Active Comment on above: Apply to affected area two times a day. cefdinir 300 mg oral capsule (7 sources) Cephalosporin Antibacterial Start: 12-11-2023 End: 12-21-2023 take 1 capsule by mouth twice daily cefdinir (OMNICEF) 300 mg capsule Indications: Bacterial sinusitis Take 1 capsule by mouth two times a day for 10 days. 20 capsule 12/11/2023 12/21/2023 Active Start: 09-30-2023 End: 09-12-2024 take 1 capsule by mouth every twelve hours cefdinir (Omnicef) 300 mg capsule Take 1 capsule (300 mg) by mouth every 12 hours. 09/30/2023 09/12/2024 Discontinued (Med List Cleanup) Start: 09-30-2023 End: 10-10-2023 take 1 capsule by mouth twice daily cefdinir (OMNICEF) 300 mg capsule Take 1 capsule by mouth two times a day for 10 days. 20 capsule 0 09/30/2023 10/10/2023 Start: 11-13-2022 End: 11-20-2022 take 1 capsule by mouth twice daily cefdinir (OMNICEF) 300 mg capsule Take 1 capsule by mouth twice daily for 7 days. 14 capsule 0 11/13/2022 11/20/2022 Active Comment on above: [facility] 7 [facility]. cefuroxime 500 mg oral tablet (3 sources) Cephalosporin Antibacterial Start: End: cefUROXime (CEFTIN) 500 mg tablet Take 500 mg by mouth. 01/11/2024 01/21/2024 Active cetirizine hydrochloride 5 mg oral tablet (5 sources) Histamine-1 Receptor Antagonist Start: End: 6 take 1 tablet by mouth once daily cetirizine (ZyrTEC) 5 mg tablet Indications: Perennial allergic rhinitis with seasonal variation Take 1 tablet (5 mg) by mouth once daily. 90 tablet 3 09/12/2024 09/12/2025 Active Start: 09-30-2023 End: 11-11-2023 take 1 tablet by mouth every twenty-four hours as needed cetirizine (ZYRTEC) 10 mg tablet Take 1 tablet by mouth at bedtime as needed (Itching as well as allergy symptoms). 09/30/2023 11/11/2023 Discontinued cholecalciferol 0.025 mg oral tablet (20 sources) Vitamin D Start: 03-16-2024 take 2000 [IU] by mouth once daily 2,000 Units, oral, Daily, First dose on Thu03/16/24 at 0900 Start: 11-05-2022 End: 09-30-2023 take 1 capsule by mouth once daily Cholecalciferol, Vitamin D3, 125 mcg (5,000 unit) cap Take 1 capsule by mouth once daily. 90 capsule 3 11/05/2022 09/30/2023 Discontinued Start: 07-03-2022 take 1 capsule by mo uth once daily Vitamin D3 1.25 MG (21123 UT) Oral Capsule TAKE 1 CAPSULE Daily Quantity: 0 Refills: 0 Ordered: 03-Jul-2022 DO Start : 03-Jul-2022 Active take 1 capsule by mo uth once daily cholecalciferol (Vitamin D-3) 125 MCG (5000 UT) capsule Take 1 capsule (125 mcg) by mouth once daily. Active End: 11-05-2022 take 1 capsule by mouth every week cholecalciferol, Vitamin D3, (VITAMIN D3) 1,250 mcg (50,000 unit) cap capsule Take 50,000 Units by mouth one time a week. 11/05/2022 Discontinued Comment on above: Take 50,000 Units by mouth one time a week. Take 1 capsule by mo uth once daily. clindamycin 300 mg oral capsule (9 sources) Lincosamide Antibacterial Start: 07-07-19 End: 07-17-19 take 1 capsule by mouth every eight hours clindamycin (CLEOCIN) 300 mg capsule Indications: Sinobronchitis Take 1 capsule by mouth every 8 hours for 10 days. 30 capsule 07/06/2024 07/16/2024 Active Start: 02-24-2024 End: 03-09-2024 take 1 capsule by mouth three times daily clindamycin (CLEOCIN) 300 mg capsule Indications: Acute non-recurrent frontal sinusitis Take 1 capsule by mouth three times a day for 14 days. 42 capsule 02/24/2024 03/09/2024 Active Start: 02-12-2024 End: 02-19-2024 take 1 capsule by mouth three times daily clindamycin (CLEOCIN) 300 mg capsule Indications: Acute non-recurrent frontal sinusitis Take 1 capsule by mouth three times a day for 7 days. 21 capsule 02/12/2024 02/19/2024 Active Start: 10-28-2022 End: 11-07-2022 take 1 capsule by mouth three times daily clindamycin (CLEOCIN) 150 mg capsule Take 1 capsule by mouth three times daily for 10 days. 30 capsule 0 10/28/2022 11/07/2022 Comment on above: Take 1 capsule by [facility] three times daily for 10 days. COMPOUNDED PRESCRIPTION (20 sources) Start: 09-08-2017 COMPOUNDED PRESCRIPTION Powerstep full length original insert (M12.571) Traumatic arthritis of foot, right (primary encounter diagnosis) 1 Device 09/08/2017 Active Start: 09-08-2017 COMPOUNDED PRE SCRIPTION Powerstep full length original insert (M12.571) Traumatic arthritis of foot, right (primary encounter diagnosis) 1 Device 0 09/08/2017 Active Start: 04-20-2017 COMPOUNDED PRE SCRIPTION Indications: EMY on CPAP New CPAP with supplies CPAP pressure 12 cm H2O. 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 Diagnosis: EMY G47.33, Z99.89 Fax to [employer] full lengt h original insert (M12.571) Traumatic arthritis of foot, right (primary encounter diagnosis) CPAP (20 sources) Start: 02-24-2024 CPAP Continue settings of Auto PAP to 5-15 cm of water with humidification. Continue orders for: Mask (per patient preference) optional chin strap (if indicated) , filters, tubing, humidifier and lifetime supplies. 1 Each 02/24/2024 Active Start: 06-25-2021 End: 02-24-2024 CPAP Change settings of Auto PAP to 5-15 cm of water with humidification. Continue orders for: Mask (per patient preference) optional chin strap (if indicated) , filters, tubing, humidifier and lifetime supplies. Per patient insurance will not replace supplies - so request repair and provision of loaner CPAP. 1 Each 06/25/2021 02/24/2024 Discontinued Start: 06-25-2021 CPAP Change se ttings of Auto PAP to 5-15 cm of water with humidification. Continue orders for: Mask (per patient preference) optional chin strap (if indicated) , filters, tubing, humidifier and lifetime supplies. Per patient insurance will not replace supplies - so request repair and provision of loaner CPAP. 1 Each 06/25/2021 Active Start: 06-25-2021 CPAP Change se ttings of Auto PAP to 5-15 cm of water with humidification. Continue orders for: Mask (per patient preference) optional chin strap (if indicated) , filters, tubing, humidifier and lifetime supplies. Per patient insurance will not replace supplies - so request repair and provision of loaner CPAP. 1 Each 0 06/25/2021 Active Start: 06-24-2021 End: 06-25-2021 CPAP Change settings of Auto PAP to 5-15 cm of water with humidification. Continue orders for: Mask (per patient preference) optional chin strap (if indicated) , filters, tubing, humidifier and lifetime supplies. 1 Each 0 06/24/2021 06/25/2021 Discontinued Start: 04-02-2018 End: 04-12-2021 CPAP Change settings of Auto PAP to 5-15 cm of water with humidification. Continue orders for: Mask (per patient preference) optional chin strap (if indicated) , filters, tubing, humidifier and lifetime supplies. 1 Device 04/02/2018 04/12/2021 Discontinued Comment on above: Change settings of A uto PAP to 5-15 cm of water with humidification. Continue orders for: Mask (per patient preference) optional chin strap (if indicated) , filters, tubing, humidifier and lifetime supplies. Per patient insurance will not replace supplies - so request repair and provision of loaner CPAP. Change settings of A uto PAP to 5-15 cm of water with humidification. Continue orders for: Mask (per patient preference) optional chin strap (if indicated) , filters, tubing, humidifier and lifetime supplies. diphenhydrAMINE (2 sources) Histamine-1 Receptor Antagonist Start: 03-15-2024 25 mg, intravenous, As needed, itching, allergies, nausea/vomiting, third line, Starting on Thu03/15/24 at 1716, If giving IV push, max rate of 25 mg/min. Start: 03-15-2024 End: 03-15-2024 50 mg, intravenous, Once, On Thu03/15/24 at 1450, For 1 dose, If giving IV push, max rate of 25 mg/min. 0.4 ml enoxaparin sodium 100 mg/ml prefilled syringe (1 source) Low Molecular Weight Heparin Start: 03-15-2024 inject 40 mg by subcutaneous injection every twenty-four hours 40 mg, subcutaneous, Every 24 hours, First dose on Thu03/15/24 at 1745, Indications: deep vein thrombosis prevention ergocalciferol 0.05 mg oral capsule (19 sources) Provitamin D2 Compound Start: 08-19-2018 Ergocalciferol (Vitamin D2) 50 MCG capsule Active 1.25 mg PO August 19, 2018 12:00am End: 03-14-2024 take 1 capsule by mouth every week, then take 1 capsule by mouth every week ergocalciferol (Vitamin D-2) 1.25 MG (79175 UT) capsule Take 1 capsule (50,000 Units) by mouth 1 (one) time per week. 1 cap(s) orally once a week on tuesdays03/14/2024 Discontinued (Med List Cleanup) famotidine 40 mg oral tablet (20 sources) Histamine-2 Receptor Antagonist Start: 01-25-2024 End: 08-29-2024 take 1 tablet by mouth once daily famotidine (PEPCID) 40 mg tablet Take 1 tablet by mouth once daily. 90 tablet 3 08/29/2024 Active flash glucose scanning reader (FREESTYLE ALEX 2 READER) (20 sources) Start: 04-15-2022 flash glucose scanning reader (FREESTYLE ALEX 2 READER) Check sugars at least 4 times daily 1 Each 04/15/2022 Active Start: 04-15-2022 flash glucose scanning reader (FREESTYLE ALEX 2 READER) Check sugars at least 4 times daily 1 Each 0 04/15/2022 Active Comment on above: Check sugars at leas t 4 times daily flash glucose sensor (FREESTYLE ALEX 2 SENSOR) kit (20 sources) Start: 05-25-2024 flash glucose sensor (FREESTYLE ALEX 2 SENSOR) kit 1 Each every 2 weeks. E11.9 DM type 2, Insulin: No 2 Each 11 05/25/2024 Active Start: 04-20-2023 End: 05-23-2024 flash glucose sensor (FREEST YLE ALEX 2 SENSOR) kit 1 Each every 2 weeks. E11.9 DM type 2, Insulin: No 2 Each 04/20/2023 05/23/2024 Discontinued Start: 04-20-2023 flash glucose sensor (FREESTYLE ALEX 2 SENSOR) kit 1 Each every 2 weeks. E11.9 DM type 2, Insulin: No 2 Each 04/20/2023 Active Start: 04-15-2022 End: 04-20-2023 flash glucose sensor (FREEST YLE ALEX 2 SENSOR) kit 1 Each every 2 weeks. E11.9 DM type 2, Insulin: No 2 Each 04/15/2022 04/20/2023 Discontinued Start: 04-15-2022 flash glucose sensor (FREESTYLE ALEX 2 SENSOR) kit 1 Each every 2 weeks. E11.9 DM type 2, Insulin: No 2 Each 11 04/15/2022 Active Comment on above: 1 Each every 2 weeks . E11.9 DM type 2, Insulin: No fluticasone propionate 0.05 mg/actuat metered dose nasal spray (20 sources) Corticosteroid Start: 09-30-2023 End: 09-21-2024 fluticasone (Flonase) 50 mcg/actuation nasal spray 1-2 sprays by Does not apply route. 09/30/2023 Active Start: 05-25-2020 End: 09-30-2023 take 1 spray(s) nasal route once daily fluticasone (FLONASE) 50 mcg/actuation nasal spray Indications: Post-nasal drip Use 1 Coleman in each nostril once daily. 1 Bottle 5 05/25/2020 09/30/2023 Discontinued Start: 03-15-2015 Fluticasone Pr opionate 16 GM spray,suspension Active 2 NMA INTRANASAL DAILY as needed for nasal congestion March 15, 2015 1:00am fluticasone 50 m cg/inh nasal spray ; 1 spray(s) nasal once a day, As Needed Quantity: 0 Refills: 0 Ordered: 29-Dec-2020 Kiko Perez Generic Substitution Allowed Comment on above: Use 1 Coleman in each nostril once daily. FreeStyle Alex 2 Sensor kit (15 sources) Start: 04-20-2023 FreeStyle Alex 2 Sensor kit CHANGE SENSOR EVERY 2 WEEKS 04/20/2023 Active furosemide 10 mg/ml oral solution (20 sources) Loop Diuretic Start: 07-03-2022 End: 05-02-2024 furosemide (LASIX) 10 mg/mL solution Take by mouth as directed. 07/03/2022 Active Start: 07-03-2022 Furosemide 10 MG/ML Oral Solution TAKE DIRECTED. Quantity: 0 Refills: 0 Ordered: 03-Jul-2022 DO Start : 03-Jul-2022 Active Comment on above: Take by mouth as dir ected. glycerin 2 mg/ml / naphazoline hydrochloride 0.12 mg/ml ophthalmic solution (20 sources) Non-Standardized Chemical Allergen naphazoline-glycerin (Clear Eyes Redness Relief) 0.012-0.2 % drops Administer 1 Application into both eyes if needed. Active hydrALAZINE hydrochloride 25 mg oral tablet (8 sources) Arteriolar Vasodilator Start: End: take 1 tablet by mouth three times daily hydrALAZINE (Apresoline) 25 mg tablet Indications: Shortness of breath on exertion , Essential hypertension Take 1 tablet (25 mg) by mouth 3 times a day. 270 tablet 3 08/20/2023 08/19/2024 Active hydrocortisone 25 mg/ml topical cream (20 sources) Corticosteroid Start: hydrocortisone 2.5 % cream Apply 1 application to affected area three times a day as needed (itchy skin lesion on chest). Apply thin layer as directed 28 g 11/11/2023 Active ketoconazole 20 mg/ml medicated shampoo (9 sources) Azole Antifungal Start: ketoconazole (NIZOral) 2 % shampoo Indications: Seborrheic dermatitis 1-2 times per week. Lather and leave on scalp for 5 minutes, then rinse. 120 mL 11 05/13/2023 Active Lactobacillus acidophilus (20 sources) Lactobacillus acidophilus (PROBIOTIC ORAL) Take by mouth. Active Lactobacillus ac idophilus (PROBIOTIC ORAL) Take by mouth. 0 Active Comment on above: Take by mouth. levoFLOXacin 750 mg oral tablet (3 sources) Quinolone Antimicrobial Start: 03-16-20 End: 12-24-20 24 take 1 tablet by mouth every twenty-four hours in the morning levoFLOXacin (Levaquin) 750 mg tablet Indications: Pneumonia Take 1 tablet (750 mg) by mouth once every 24 hours for 5 days. 5 tablet 03/17/2024 9:28 AM EST 03/17/2024 03/22/2024 Active Start: 03-15-2024 End: 03-15-2024 750 mg, intravenous, at 100 mL/hr, Administer over 90 Minutes, Once, On Thu03/15/24 at 1450, For 1 dose, premix bag, Dosing of this medication varies based on severity of illness. Does this patient have sepsis or concern for sepsis (probable or documented infection plus systemic manifestations of infection)? No, Suspected Indication (Select all that apply): Abdominal Infection, Type of Therapy: Empiric, Type of infection: Community-Acquired, Indications: Abdominal Infection lidocaine hydrochloride 40 mg/ml medicated pad (1 source) Antiarrhythmic, Amide Local Anesthetic Start: 12-24-2022 End: 12-28-2022 Alocane Emergency Burn Pads Maximum Strength 4% topical film ; Apply topically to affected area every 12 hours Quantity: 12 Refills: 0 Ordered: 24-Dec-2022 Estuardo Huang Start: 24-Dec-2022 End: 28-Dec-2022 Generic Substitution Allowed Comments: For external use only.Remove old patch prior to applying a new patch. Comment on above: For external use onl y.Remove old patch prior to applying a new patch. lisinopril 20 mg oral tablet (20 sources) Angiotensin Converting Enzyme Inhibitor Start: 04-01-2024 End: 04-01-2025 take 1 tablet by mouth in the morning lisinopril 20 mg tablet Indications: Premature atrial contractions , Bradycardia , Shortness of breath Take 1 tablet (20 mg) by mouth early in the morning.. 90 tablet 3 04/01/2024 04/01/2025 Active Start: 03-24-2024 End: 04-01-2024 take 1 tablet by mouth once daily lisinopril (ZESTRIL) 5 mg tablet Take 1 tablet by mouth once daily. 90 tablet 3 03/24/2024 Active Start: 08-04-2022 End: 03-15-2024 take 1 tablet by mouth once daily lisinopril 10 mg tablet Take 1 tablet (10 mg) by mouth once daily. 08/04/2022 03/15/2024 Discontinued (Entered in Error) Start: 07-18-2022 End: 11-05-2022 take 1 tablet by mouth once daily lisinopril (ZESTRIL) 5 mg tablet Take 1 tablet by mouth once daily. 90 tablet 07/18/2022 11/05/2022 Discontinued Comment on above: Take 1 tablet by ryan th once daily. mecobalamin (20 sources) mecobalamin (B12 ACTIVE ORAL) Take by mouth. Active mecobalamin (B12 ACTIVE ORAL) Take by mouth. 0 Active Comment on above: Take by mouth. metroNIDAZOLE 500 mg oral tablet (3 sources) Nitroimidazole Antimicrobial Start: 01-11-20 End: 01-21-20 metroNIDAZOLE (FLAGYL) 500 mg tablet Take 500 mg by mouth. 01/11/2024 01/21/2024 Active montelukast 10 mg oral tablet (18 sources) Leukotriene Receptor Antagonist Start: 03-13-20 End: 09-13-19 take 1 tablet by mouth once daily at bedtime montelukast (Singulair) 10 mg tablet Indications: Perennial allergic rhinitis with seasonal variation Take 1 tablet (10 mg) by mouth once daily at bedtime. 90 tablet 3 09/12/2024 09/12/2025 Active Start: 08-20-2020 End: 08-27-2021 take 1 tablet by mouth once daily at bedtime montelukast (SINGULAIR) 10 mg tablet Indications: Allergic rhinitis, unspecified seasonality, unspecified trigger Take 1 tablet by mouth daily at bedtime. 30 tablet 5 08/20/2020 08/27/2021 Discontinued (Discontinued by Patient) Comment on above: Take 1 tablet by ryan th daily at bedtime. MULTI-VITAMIN ORAL (20 sources) MULTI-VITAMIN OR AL Take by mouth. Active MULTI-VITAMIN OR AL Take by mouth. 0 Active Comment on above: Take by mouth. Multivitamin preparation (5 sources) take 1 tablet by mouth once daily Multiple Vitamins oral tablet ; 1 tab(s) orally once a day Quantity: 0 Refills: 0 Ordered: 29-Dec-2020 iKko Perez Status: Other Generic Substitution Allowed take 1 tablet by mouth once olamide y Multiple Vitamins oral tablet ; 1 tab(s) orally once a day Quantity: 0 Refills: 0 Ordered: 29-Dec-2020 Kiko Perez Generic Substitution Allowed naphazoline hydrochloride 0.12 mg/ml ophthalmic solution (4 sources) Clear Eyes 0.012 % ophthalmic solution ; 1 application to each affected eye prn Quantity: 0 Refills: 0 Ordered: 11-Aug-2021 Andrew Leary Butch Generic Substitution Allowed nystatin [id number] unt/ml oral suspension (20 sources) Polyene Antifungal Start: 03-24-2024 nystatin (Mycostatin) 100,000 unit/mL suspension 03/24/2024 Active Start: 03-24-2024 take 5 mL by mouth f our times daily nystatin (Mycostatin) 100,000 unit/mL suspension Take 5 mL by mouth four times daily for 14 days. Swish and swallow. 03/24/2024 Active Start: 03-24-2024 End: 04-07-2024 take 5 mL by mouth four times daily nystatin (MYCOSTATIN) 100,000 unit/mL suspension Take 5 mL by mouth four times daily for 14 days. Swish and swallow. 280 mL 03/24/2024 04/07/2024 Active Start: 01-28-2023 End: 12-25-2023 nystatin (MYCOSTATIN) powder Apply 1 application to affected area four times daily. As directed 60 g 1 01/28/2023 12/25/2023 Discontinued Comment on above: Apply 1 application to affected area four times daily. As directed omeprazole 40 mg delayed release oral capsule (20 sources) Proton Pump Inhibitor Start: take 1 capsule by mouth once daily 30 minutes before breakfast Omeprazole 40 mg capsule,delayed release(DR/EC) Active 40 mg PO daily 90 May 31, 2024 1:00am take 30 minutes before breakfast every morning Start: 05-02-2024 End: 05-31-2024 take 1 capsule by mouth once daily Omeprazole 20 mg capsule,delayed release(DR/EC) Discontinued 20 mg PO daily May 02, 2024 2:19pm May 31, 2024 11:03am gerd Start: 01-25-2024 End: 05-02-2024 take 1 capsule by mouth twice daily Omeprazole 20 mg capsule,delayed release(DR/EC) Discontinued 20 mg PO TWICE A DAY 60 2 January 25, 2024 2:40pm May 02, 2024 2:20pm gerd Start: 08-19-2018 End: 01-25-2024 take 1 capsule by mouth once daily as needed for gastroesophageal reflux disease Omeprazole 20 mg capsule,delayed release(DR/EC) Discontinued 20 mg PO DAILY as needed for gerd 60 2 January 25, 2024 1:39pm January 25, 2024 3:36pm Comment on above: Take 20 mg by mouth once daily. Take 1 capsule by ia ut once daily. as directed oxygen (O2) therapy (1 source) Start: 4 inhalation, Continuous PRN - O2/gases, other, Starting on Thu03/15/24 at 1845, Device: Nasal Cannula, Rate in liters per minute: Other, Custom Value: 1-4, Keep O2 Sat Above: 90% pantoprazole 40 mg delayed release oral tablet (11 sources) Proton Pump Inhibitor Start: take 1 tablet by mouth once daily Pantoprazole 40 mg tablet,delayed release (DR/EC) Active 40 mg PO daily June 06, 2024 12:00am Start: 03-16-2024 take 40 mg by mouth once daily before breakfast 40 mg, oral, Daily before breakfast, First dose on Thu03/16/24 at 0700, Do not crush, chew, or split. Start: 08-20-2023 End: 08-20-2023 pantoprazole (Protonix) 40 m g EC tablet Indications: Shortness of breath on exertion , Essential hypertension Take 1 pill 2 times a day for 1 month and then 1 pill a day 90 tablet 3 08/20/2023 Active 20 ml potassium acetate 2 meq/ml injection (9 sources) Start: 12-10-2021 End: 03-14-2024 potassium acetate 2 mEq/mL injection [id number] Medication potassium acetate potassium acetate 2 mEq/mL 12/10/2021 Active (Outside) 12/10/2021 03/14/2024 Discontinued (Med List Cleanup) Start: 12-10-2021 [id number] Medicat ion potassium acetate potassium acetate 2 mEq/mL 12/10/2021 Active (Outside) potassium chloride 10 meq extended release oral tablet (20 sources) Start: 11-19-2020 End: 08-31-2024 take 1 tablet by mouth once daily as needed potassium chloride (K-TAB) 10 mEq tablet Indications: Diuretic-induced hypokalemia Take 1 tablet by mouth once daily as needed (When taking diuretic). DAILY 30 tablet 1 12/24/2023 Active Start: 07-12-2020 End: 11-19-2020 potassium chloride (K-TAB) 1 0 mEq tablet Indications: Diuretic-induced hypokalemia DAILY 90 tablet 3 07/12/2020 11/19/2020 Discontinued Start: 03-15-2015 End: 05-02-2024 take 2 tablets by mouth once daily Potassium Chloride 10 MEQ tablet Discontinued 20 meq PO DAILY March 15, 2015 1:00am May 02, 2024 2:19pm Comment on above: Take 1 tablet by ryan th once daily as needed (When taking diuretic). DAILY simethicone 125 mg oral capsule (20 sources) Start: 01-25-2024 Simethicone (Gas Relief (Simethicone)) 125 mg capsule Active 125 mg PO 1 to 2 times per day as needed for abdominal distention January 25, 2024 12:00am Start: 08-03-2023 End: 11-15-2024 take 1 tablet by mouth every six hours as needed Gas Relief Extra Strength 125 mg chewable tablet Chew 1 tablet (125 mg) every 6 hours if needed. 08/03/2023 Active sucralfate 1000 mg oral tablet (20 sources) Aluminum Complex Start: 11-07-2024 take 1 tablet by mouth twice daily Sucralfate 1 gram tablet Active 1 g PO TWICE A DAY November 07, 2024 12:00am Start: 01-25-2024 End: 08-31-2024 take 1 tablet by mouth three times daily sucralfate (Carafate) 1 gram tablet Take 1 tablet (1 g) by mouth 3 times a day. 01/25/2024 08/31/2024 Discontinued (Med List Cleanup) Start: 01-25-2024 End: 09-21-2024 take 1 tablet by mouth twice daily Sucralfate (Carafate) 1 gram tablet Discontinued 1 g PO TWICE A DAY 60 0 May 19, 2024 1:00am May 31, 2024 10:45am tiZANidine 2 mg oral tablet (4 sources) Central alpha-2 Adrenergic Agonist Start: 08-29-2024 take 1 tablet by mouth every eight hours as needed tiZANidine (ZANAFLEX) 2 mg tablet Indications: Muscle strain Take 1 tablet by mouth every 8 hours as needed. 60 tablet 1 08/29/2024 Active torsemide 10 mg oral tablet (20 sources) Loop Diuretic Start: 03-15-2015 End: 11-11-2023 take 1 tablet by mouth once daily as needed for edema Torsemide 10 mg tablet Active 10 mg PO daily as needed for edema November 07, 2024 12:00am Start: 03-15-2015 End: 05-02-2024 [id number] Medication torsemide torsemide 20 mg 12/10/2021 Active (Outside) Comment on above: Take 1 tablet by ryan th once daily as needed (edema). traMADol hydrochloride 50 mg oral tablet (5 sources) Opioid Agonist Start: 06-03-2024 End: 06-10-2024 take 1 tablet by mouth twice daily as needed for pain traMADol (ULTRAM) 50 mg tablet Indications: Right hip pain Take 1 tablet by mouth two times a day as needed for pain for up to 7 days. 14 tablet 06/03/2024 06/10/2024 Active Start: 10-22-2021 End: 10-29-2021 take 1 tablet by mouth every eight hours as needed for pain traMADol (ULTRAM) 50 mg tablet Indications: Acute left-sided thoracic back pain Take 1 tablet by mouth every 8 hours as needed for pain for up to 7 days. 21 tablet 0 10/22/2021 10/29/2021 Start: 08-27-2021 End: 09-03-2021 take 1 tablet by mouth every eight hours as needed for pain traMADol (ULTRAM) 50 mg tablet Indications: Acute left-sided thoracic back pain Take 1 tablet by mouth every 8 hours as needed for pain for up to 7 days. 21 tablet 0 08/27/2021 09/03/2021 Active Comment on above: Take 1 tablet by ryan every 8 hours as needed for pain for up to 7 days. triamcinolone acetonide 1 mg/ml topical cream (13 sources) Corticosteroid Start: 05-18-2024 triamcinolone (Kenalog) 0.1 % cream Indications: Dermatitis Twice daily to affected areas for 1-2 weeks, then weekends only. Repeat every few months for flares. 80 g 3 05/18/2024 Active Start: 03-10-2023 End: 03-14-2024 triamcinolone (Kenalog) 0.1 % cream Indications: Rash and other nonspecific skin eruption Twice daily to itchy/irritated areas on skin as needed. 80 g 1 03/10/2023 03/14/2024 Discontinued (Med List Cleanup) trolamine salicylate 100 mg/ ml topical cream (19 sources) End: 03-14-2024 trolamine salicylate (Aspercreme) 10 % cream Apply 1 Application topically if needed. 03/14/2024 Discontinued (Med List Cleanup) Aspercreme 10% t opical cream ; Apply topically to affected area prn Quantity: 0 Refills: 0 Ordered: 11-Aug-2021 Andrew Leary Generic Substitution Allowed vitamin b12 1 mg oral tablet (20 sources) Vitamin B12 Start: 03-16-2024 take 500 ug by mouth every other day 500 mcg, oral, Every other day, First dose on Thu03/16/24 at 0900 Start: 07-03-2022 take 1 tablet by ryan th every other day cyanocobalamin (Vitamin B-12) 500 mcg tablet Take 1 tablet (500 mcg) by mouth every other day. 07/03/2022 Active Start: 07-03-2022 cyanocobalamin (Vitamin B-12) 500 mcg tablet Take by mouth once daily. 07/03/2022 Active Completed/Discontinued Medications Medication Drug Class(es) Dates Sig (Normalized) Sig (Original) albuterol 0.833 mg/ml / ipratropium bromide 0.167 mg/ml inhalation solution (20 sources) Anticholinergic, beta2-Adrenergic Agonist Start: 12-30-2021 End: 03-15-2024 take 3 mL by inhalation four times daily ipratropium-albuter oL (Duo-Neb) 0.5-2.5 mg/3 mL nebulizer solution Inhale 3 mL 4 times a day. 12/30/2021 03/15/2024 Discontinued (Entered in Error) Start: 12-30-2021 End: 09-30-2023 take 3 mL by inhalation every six hours ipratropium-albuterol (DUONEB) 0.5 mg-3 mg(2.5 mg base)/3 mL nebu Inhale 3 mL as instructed every 6 hours. Unit dose pack 30 Each 3 12/30/2021 09/30/2023 Discontinued Comment on above: Inhale 3 mL as instr ucted every 6 hours. Unit dose pack amoxicillin 875 mg / clavulanate 125 mg oral tablet (17 sources) Penicillin-class Antibacterial Start: 01-14-2022 [id number] Medication amoxicillin 125 mg-potassium clavulanate 31.25 mg/5 mL oral susp Augmentin 125-31.25 mg/5 mL 01/14/2022 Active (Outside) Start: 01-07-2022 End: 01-27-2022 take 1 tablet by mouth twice daily amoxicillin-clavulanic acid (AUGMENTIN) 875-125 mg per tablet Indications: Acute non-recurrent frontal sinusitis Take 1 tablet by mouth twice daily for 10 days. 20 tablet 0 01/17/2022 01/27/2022 Start: 10-22-2021 End: 12-30-2021 take 1 tablet by mouth twice daily amoxicillin-clavulanic acid (AUGMENTIN) 875-125 mg per tablet Indications: Acute recurrent frontal sinusitis Take 1 tablet by mouth twice daily. 20 tablet 10/22/2021 12/30/2021 Discontinued Start: 05-03-2021 End: 08-27-2021 take 1 tablet by mouth twice daily amoxicillin-clavulanic acid (AUGMENTIN) 875-125 mg per tablet Indications: Acute recurrent frontal sinusitis Take 1 tablet by mouth twice daily. 20 tablet 0 05/03/2021 08/27/2021 Discontinued (Course of therapy completed) Comment on above: Take 1 tablet by ryan th twice daily. Take 1 tablet by ryan th twice daily for 10 days. benzonatate 200 mg oral capsule (2 sources) Non-narcotic Antitussive Start: 12-24-19 End: 12-28-19 take 1 capsule by mouth three times daily for cough benzonatate 200 mg oral capsule ; 1 cap(s) orally 3 times a day, As Needed -for loose stools - for cough Quantity: 15 Refills: 0 Ordered: 23-Dec-2021 Ishmael Velásquez Start: 23-Dec-2021 End: 27-Dec-2021 Status: Other Generic Substitution Allowed Comments: May cause drowsiness. Alcohol may intensify this effect. Use care when operating dangerous machinery.Swallow whole. Do not crush. Comment on above: May cause drowsiness . Alcohol may intensify this effect. Use care when operating dangerous machinery.Swallow whole. Do not crush. cephalexin 500 mg oral tablet (5 sources) Cephalosporin Antibacterial Start: 12-30-19 End: 01-08-20 take 1 tablet by mouth four times daily cephalexin 500 mg oral tablet ; 1 tab(s) orally 4 times a day Quantity: 40 Refills: 0 Ordered: 29-Dec-2020 Bradly Tejeda Start: 29-Dec-2020 End: 07-Jan-2021 Status: Other Generic Substitution Allowed Comments: Finish all this medication unless otherwise directed by prescriber. Comment on above: Finish all this medi cation unless otherwise directed by prescriber. cholecalciferol, vitamin D3, (VITAMIN D3 ORAL) (10 sources) End: 09-13-19 take 5000 [IU] by mouth once daily cholecalciferol, vitamin D3, (VITAMIN D3 ORAL) Take 5,000 Units by mouth once daily. 09/12/2021 Discontinued (Course of therapy completed) End: 09-12-2021 take 5000 [IU] by mouth once daily cholecalciferol, vitamin D3, (VITAMIN D3 ORAL) Take 5,000 Units by mouth once daily. 0 09/12/2021 Discontinued (Course of therapy completed) take 5000 [IU] by mo ut once daily cholecalciferol, vitamin D3, (VITAMIN D3 ORAL) Take 5,000 Units by mouth once daily. 0 Active Comment on above: Take 5,000 Units by mouth once daily. cholecalciferol, vitD3,/vit K2 (VITAMIN D3-VITAMIN K2 ORAL) (20 sources) End: 09-30-2023 take 1 capsule by mouth once daily cholecalciferol, vitD3,/vit K2 (VITAMIN D3-VITAMIN K2 ORAL) Take 1 capsule by mouth once daily. 09/30/2023 Discontinued End: 09-30-2023 take 1 capsule by mouth once daily cholecalciferol, vitD3,/vit K2 (VITAMIN D3-VITAMIN K2 ORAL) Take 1 capsule by mouth once daily. 0 09/30/2023 Discontinued take 1 capsule by mo ut once daily cholecalciferol, vitD3,/vit K2 (VITAMIN D3-VITAMIN K2 ORAL) Take 1 capsule by mouth once daily. 0 Active Comment on above: Take 1 capsule by [facility] once daily. clobetasol propionate 0.0005 mg/mg topical ointment (20 sources) Corticosteroid Start: 01-28-2023 End: 03-15-2024 clobetasol (Temovate) 0.05 % ointment Apply 1 Application topically every 12 hours if needed. 01/28/2023 03/15/2024 Discontinued (Entered in Error) Start: 01-28-2023 End: 12-25-2023 clobetasol (TEMOVATE) 0.05 % ointment Indications: Lichen sclerosus Apply 1 application to affected area two times a day as needed. TO AFFECTED AREA. 30 g 1 09/30/2023 12/25/2023 Discontinued Start: 07-09-2021 End: 09-12-2021 clobetasol (TEMOVATE) 0.05 % ointment Indications: Lichen sclerosus Apply 1 application to affected area twice daily as needed. TO AFFECTED AREA. 30 g 1 07/09/2021 09/12/2021 Discontinued (Course of therapy completed) Comment on above: Apply 1 application to affected area twice daily as needed. TO AFFECTED AREA. Apply 1 application to affected area two times a day as needed. TO AFFECTED AREA. estradiol 0.1 mg/ml vaginal cream (1 source) Estrogen Start: 07-12-2020 End: 01-28-2021 estradiol (ESTRACE) 0.01 % (0.1 mg/gram) vaginal cream Indications: Urinary urgency , Urge incontinence of urine Use 1 g vaginally one time a week. for urinary urgency and bladder leakage 42.5 g 1 07/12/2020 01/28/2021 Discontinued (Other) fluconazole 150 mg oral tablet (15 sources) Azole Antifungal Start: 01-11-2024 End: 03-24-2024 fluconazole (DIFLUCAN) 150 mg tablet Take 150 mg by mouth. 01/11/2024 03/24/2024 Discontinued Start: 09-30-2023 End: 09-30-2023 fluconazole (DIFLUCAN) 150 m g tablet Indications: Antibiotic-induced yeast infection Take 1 tablet by mouth one time only for 1 dose. Take one tablet now and repeat dose in 72 hours. 2 tablet 0 09/30/2023 09/30/2023 Start: 11-13-2022 End: 11-14-2022 take 1 tablet by mouth once daily fluconazole (DIFLUCAN) 150 mg tablet Take 1 tablet by mouth once daily for 1 day. 1 tablet 0 11/13/2022 11/14/2022 Active Comment on above: Take 1 tablet by ryan th once daily for 1 day. glipiZIDE er 2.5 mg 24 hr extended release oral tablet (20 sources) Sulfonylurea Start: End: take 1 tablet by mouth once daily glipiZIDE (GLUCOTROL XL) 2.5 mg 24 hr tablet Indications: Controlled type 2 diabetes mellitus without complication (HCC) Take 1 tablet by mouth once daily. 90 tablet 1 07/18/2022 07/31/2023 Discontinued Start: 07-03-2022 take 1 tablet by ryan th once daily glipiZIDE 5 MG Oral Tablet TAKE 1 TABLET DAILY. Quantity: 0 Refills: 0 Ordered: 03-Jul-2022 DO Start : 03-Jul-2022 Active Start: 12-10-2021 [id number] Medicat ion glipizide glipizide 10 mg 12/10/2021 Active (Outside) Start: 03-15-2015 End: 01-25-2024 take 1 tablet by mouth once daily glipiZIDE (GLUCOTROL XL) 5 mg 24 hr tablet Indications: Controlled type 2 diabetes mellitus without complication (HCC) Take 1 tablet by mouth once daily. 90 tablet 3 07/12/2020 10/22/2021 Discontinued take 1 tablet by ryan th once daily glipiZIDE 10 mg oral tablet ; 1 tab(s) orally once a day Quantity: 0 Refills: 0 Ordered: 06-Jul-2020 Yovany Quezada Status: Other Generic Substitution Allowed Comment on above: Take 1 tablet by ryan th once daily. ibuprofen 800 mg oral tablet (1 source) Nonsteroidal Anti-inflammatory Drug Start: 03-15-20 End: 01-25-20 take 1 tablet by mouth every six hours as needed for pain Ibuprofen 800 MG tablet Discontinued 800 mg PO EVERY 6 HOURS as needed for Pain March 15, 2015 1:00am January 25, 2024 8:32am ipratropium bromide 0.042 mg/actuat metered dose nasal spray (15 sources) Anticholinergic Start: 09-30-19 End: 03-15-20 take 2 spray(s) nasal route every six hours ipratropium (Atrovent) 42 mcg (0.06 %) nasal spray Administer 2 sprays into affected nostril(s) every 6 hours if needed. 09/30/2023 03/15/2024 Discontinued (Entered in Error) Start: 09-30-2023 End: 12-25-2023 ipratropium bromide (ATROVEN T) 42 mcg (0.06 %) nasal spray Use 2 Sprays in the nose four times a day as needed (Sinus and nasal congestion and runny nose). 15 mL 09/30/2023 12/25/2023 Discontinued Start: 05-03-2021 End: 08-27-2021 Ipratropium [facility] (ATROVEN T) 21 mcg (0.03 %) nasal spray Indications: Chronic rhinitis , Post-nasal drip Use 2 Sprays in the nose every 12 hours. 30 mL 5 05/03/2021 08/27/2021 Discontinued (Discontinued by Patient) Comment on above: Use 2 Sprays in the nose every 12 hours. K2-D3 5000 5000-90 UNIT-MCG Oral Capsule (3 sources) Start: 08-04-2022 take 8 capsules by mouth once daily K2-D3 5000 5000-90 UNIT-MCG Oral Capsule take on daily as directed Quantity: 0 Refills: 0 Ordered: 04-Aug-2022 DO Start : 04-Aug-2022 Active loratadine 10 mg oral tablet (20 sources) Start: 09-30-2023 End: 12-25-2023 take 1-2 tablets by mouth once daily as needed loratadine (CLARITIN) 10 mg tablet Take 1-2 tablets by mouth once daily as needed (Itching of back). 09/30/2023 12/25/2023 Discontinued Start: 07-09-2021 End: 03-15-2024 take 1 tablet by mouth once daily at bedtime loratadine (CLARITIN) 10 mg tablet Take 1 tablet by mouth daily at bedtime. (seasonal allergies) 0 07/09/2021 09/12/2021 Discontinued (Course of therapy completed) End: 07-09-2021 loratadine (CLARITIN ORAL) T howie by mouth as needed (seasonal allergies). 0 07/09/2021 Discontinued loratadine (CLAR ITIN ORAL) Take by mouth as needed (seasonal allergies). 0 Active Comment on above: Take by mouth as nee ded (seasonal allergies). Take 1 tablet by ryan th daily at bedtime. (seasonal allergies) metoprolol tartrate 25 mg oral tablet (20 sources) beta-Adrenergic [place] Start: End: take 1 tablet by mouth twice daily metoprolol tartrate, short acting, (LOPRESSOR) 25 mg tablet Take 1 tablet by mouth two times a day. 180 tablet 3 03/24/2024 09/21/2024 Discontinued (Other) Start: 07-18-2022 End: 03-24-2024 take 1 tablet by mouth twice daily metoprolol tartrate, short acting, (LOPRESSOR) 50 mg tablet Indications: Essential hypertension , PVC's (premature ventricular contractions) , Premature atrial contractions , Palpitations Take 1 tablet by mouth two times a day. 180 tablet 3 08/12/2023 03/24/2024 Discontinued Start: 07-03-2022 take 1 tablet by ryan th twice daily Metoprolol Succinate ER 50 MG Oral Tablet Extended Release 24 Hour Take 1 tablet twice daily Quantity: 180 Refills: 0 Ordered: 03-Jul-2022 DO Start : 03-Jul-2022 Active Start: 12-10-2021 [id number] Medicat ion metoprolol tartrate metoprolol tartrate 100 mg 12/10/2021 Active (Outside) Start: 05-13-2021 End: 07-18-2022 take 1.5 tablets by mouth twice daily, then take 2 tablets by mouth in the morning, then take 1 tablet by mouth in the evening metoprolol tartrate, short acting, (LOPRESSOR) 50 mg tablet Indications: Essential hypertension , PVC's (premature ventricular contractions) , Premature atrial contractions , Palpitations Take 1.5 tablets by mouth twice daily. Two in the AM and one in the PM 270 tablet 3 05/13/2021 07/18/2022 Discontinued Start: 01-23-2020 End: 01-28-2021 take 1 tablet by mouth twice daily metoprolol tartrate, short acting, (LOPRESSOR) 50 mg tablet Indications: Essential hypertension Take 0.5-1 tablets by mouth twice daily. 180 tablet 3 01/23/2020 01/28/2021 Discontinued Start: 03-15-2015 End: 05-02-2024 take 2 tablets by mouth twice daily Metoprolol Succinate 25 MG tablet Discontinued 50 mg PO TWICE A DAY March 15, 2015 1:00am May 02, 2024 2:18pm Comment on above: Take 1.5 tablets by mouth twice daily. Two in the AM and one in the PM Take 1 tablet by [facility] twice daily. nitrofurantoin, macrocrystals 25 mg / nitrofurantoin, monohydrate 75 mg oral capsule (6 sources) Nitrofuran Antibacterial Start: 08-30-19 End: 09-22-19 take 1 capsule by mouth twice daily nitrofurantoin monohydrate and macrocrystal (MACROBID) 100 mg capsule Take 1 capsule by mouth two times a day. 14 capsule 08/29/2024 09/21/2024 Discontinued (Course of therapy completed) Start: 03-16-2024 End: 03-16-2024 take 100 mg by mouth every twelve hours 100 mg, oral, Every 12 hours scheduled, First dose on Thu03/16/24 at 0900, For 5 days, Suspected Indication (Select all that apply): Urinary Tract Infection, Type of Therapy: Empiric, Type of Urinary Tract Infection: Uncomplicated, Indications: Urinary Tract Infection Start: 12-05-2022 End: 12-12-2022 take 1 capsule by mouth twice daily nitrofurantoin monohydrate and macrocrystal (MACROBID) 100 mg capsule Indications: Acute cystitis without hematuria Take 1 capsule by mouth twice daily. 14 capsule 12/05/2022 12/12/2022 Discontinued Comment on above: [facility] 2 ml ondansetron 2 mg/ml injection (6 sources) Serotonin-3 Receptor Antagonist Start: 03-15-2024 End: 03-15-2024 4 mg, intravenous, Once, On Thu03/15/24 at 1215, For 1 dose, When administering via IV Push, administer over 3-5 minutes. Start: 01-11-2024 End: 01-18-2024 take 1 tablet by mouth every eight hours as needed ondansetron (ZOFRAN) 4 mg tablet Take 4 mg by mouth three times a day as needed. 01/11/2024 01/18/2024 Active Start: 01-11-2024 End: 01-18-2024 take 1 tablet by mouth every eight hours for nausea ondansetron (Zofran) 4 mg tablet Indications: Diverticulitis , Acute cystitis without hematuria Take 1 tablet (4 mg) by mouth every 8 hours if needed for nausea or vomiting for up to 7 days. 20 tablet 01/11/2024 01/18/2024 Active Start: 01-11-2024 End: 01-11-2024 4 mg, intravenous, Once, On Thu01/11/24 at 1145, For 1 dose, When administering via IV Push, administer over 3-5 minutes. Start: 12-24-2022 take 1 tablet by ryan th every six hours ondansetron 8 mg oral tablet, disintegrating ; 1 tab(s) orally every 6 hours Quantity: 12 Refills: 0 Ordered: 24-Dec-2022 Estuardo Huang Start: 24-Dec-2022 Generic Substitution Allowed predniSONE 10 mg oral tablet (13 sources) Start: 11-11-2023 End: 11-23-2023 predniSONE (DELTASONE) 10 mg tablet Indications: Chronic frontal sinusitis , Chronic maxillary sinusitis Take 4 tabs daily x 3 days, then 3 tabs x 3 days, 2 tabs x 3 days, then 1 tab x3 days with food. 30 tablet 11/11/2023 11/23/2023 Start: 10-28-2022 End: 12-12-2022 predniSONE (DELTASONE) 10 mg tablet Take 4 daily for three days, then 3 daily for three days, then 2 daily for three days, then one daily for three days. 30 tablet 10/28/2022 12/12/2022 Discontinued Start: 01-16-2022 End: 01-30-2022 take 1 tablet by mouth once daily predniSONE (DELTASONE) 10 mg tablet Take 1 tablet by mouth once daily for 14 days. 14 tablet 0 01/16/2022 01/30/2022 Active Start: 12-23-2021 End: 12-26-2021 take 1 tablet by mouth twice daily predniSONE 20 mg oral tablet ; 1 tab(s) orally 2 times a day x 4 days Quantity: 8 Refills: 0 Ordered: 23-Dec-2021 Ishmael Velásquez Start: 23-Dec-2021 End: 26-Dec-2021 Status: Other Generic Substitution Allowed Start: 07-04-2020 predniSONE 20 MG Oral Tablet TAKE 2 TABLETS NIGHT BEFORE PROCEDURE AND 2 TABLETS MORNING OF PROCEDRE. Quantity: 4 Refills: 0 Franck Lambert MD Start : 04-Jul-2020 Active Comment on above: Take 1 tablet by ryan th once daily for 14 days. Take 4 daily for thr ee days, then 3 daily for three days, then 2 daily for three days, then one daily for three days. sacubitril 24 mg / valsartan 26 mg oral tablet (4 sources) Angiotensin 2 Receptor [place] End: 08-20-2023 sacubitriL-valsartan (Entresto) 24-26 mg tablet Take by mouth every 12 hours. 08/20/2023 Discontinued (Therapy completed) take 1 tablet by mouth twice jose ly Entresto 24 mg-26 mg oral tablet ; 1 tab(s) orally 2 times a day Quantity: 0 Refills: 0 Ordered: 22-Aug-2021 Marisa Vee Status: Other Generic Substitution Allowed 1000 ml sodium chloride 9 mg/ml injection (2 sources) Start: 03-15-2024 End: 03-15-2024 1,000 mL, intravenous, at 99 9 mL/hr, Administer over 1 Hours, Once, On Thu03/15/24 at 1215, For 1 dose Start: 01-11-2024 End: 01-11-2024 500 mL, intravenous, at 500 mL/hr, Administer over 1 Hours, Once, On Thu01/11/24 at 1145, For 1 dose verapamil hydrochloride 120 mg extended release oral tablet (17 sources) Calcium Channel [place] Start: 05-05-2024 End: 05-05-2025 take 1 tablet by mouth at bedtime Verapamil 120 mg tablet extended release Discontinued 120 mg PO AT BEDTIME May 17, 2024 1:00am November 07, 2024 2:09pm vitamin D3/vitamin K2, MK4, (K2 PLUS D3 ORAL) (15 sources) End: 03-15-2024 take 1 tablet by mouth once daily vitamin D3/vitamin K2, MK4, (K2 PLUS D3 ORAL) Take 1 tablet by mouth once daily. 03/15/2024 Discontinued (Entered in Error) take 1 tablet by mouth once olamide y vitamin D3/vitamin K2, MK4, (K2 PLUS D3 ORAL) Take 1 tablet by mouth once daily. Active take 1 tablet by mouth once olamide y vitamin D3/vitamin K2, MK4, (K2 PLUS D3 ORAL) Take 1 tablet by mouth once daily. 0 Active Problems Active Problems Problem Classification Problem Date Documented Da te Episodic/Chronic Acquired foot deformities (20 sources) Acquired hallux malleus; Translations: [Other hammer toe(s) (acquired), unspecified foot] Onset: 2 04-21-2011 Chronic Acute bronchitis (3 sources) Acute bronchitis; Translations: [Acute bronchitis] 12-23-2021 Episodic Adjustment disorders (20 sources) Reactive depression (situational); Translations: [Adjustment disorder with depressed mood] Onset: 5 12-27-2014 Chronic Allergic reactions (12 sources) Allergy to contrast media; Translations: [Allergy to radiographic dye] Onset: 2 Episodic Asthma (20 sources) Unspecified asthma, uncomplicated; Translations: [Asthma, unspecified type, unspecified] Onset: 4 07-27-2006 Chronic Cardiac dysrhythmias (20 sources) Ventricular premature beats; Translations: [Ventricular premature depolarization] Onset: 9 10-02-2018 Chronic Cardiac dysrhythmias (20 sources) Palpitations; Translations: [Palpitations] Onset: 9 10-02-2018 Episodic Chronic obstructive pulmonary disease and bronchiectasis (2 sources) Acute exacerbation of chronic obstructive airways disease; Translations: [Obstructive chronic bronchitis with (acute) exacerbation] Onset: 2 12-23-2021 Chronic Chronic obstructive pulmonary disease and bronchiectasis (1 source) Bronchitis; Translations: [Bronchitis, not specified as acute or chronic] 12-30-2021 Episodic Congestive heart failure; nonhypertensive (1 source) Acute diastolic (congestive) heart failure; Translations: [Acute diastolic (congestive) heart failure] Onset: 2 Chronic Coronary atherosclerosis and other heart disease (20 sources) Preinfarction syndrome; Translations: [Coronary atherosclerosis] Onset: 3 10-24-2018 Chronic Coronary atherosclerosis and other heart disease (2 sources) Presence of coronary angioplasty implant and graft; Translations: [Presence of coronary angioplasty implant and graft] Onset: 2 Episodic Diabetes mellitus with complications (20 sources) Type 2 diabetes mellitus; Translations: [Type 2 diabetes mellitus with diabetic neuropathy, unspecified] Onset: 0 05-27-2019 Chronic Disorders of lipid metabolism (20 sources) Hyperlipidemia; Translations: [Hyperlipidemia, unspecified] Onset: 0 04-05-2009 Chronic Diverticulosis and diverticulitis (10 sources) Diverticulosis of large intestine without perforation or abscess without bleeding; Translations: [Diverticulitis] Onset: 2 01-11-2024 Chronic Esophageal disorders (20 sources) Gastroesophageal reflux disease; Translations: [Gastro-esophageal reflux disease without esophagitis] Onset: 4 04-05-2009 Chronic Comment on above: CONTROLLED WITH MED Esophageal disorders (2 sources) Esophageal disorders; Translations: [Gastro-esophageal reflux disease with esophagitis, without bleeding] Onset: 0 Essential hypertension (20 sources) Hypertensive disorder; Translations: [Unspecified essential hypertension] Onset: 8 12-29-2020 Chronic Gastroduodenal ulcer (except hemorrhage) (2 sources) Duodenal ulcer, unspecified as acute or chronic, without hemorrhage or perforation; Translations: [Ulcer of duodenum] Onset: 5 05-31-2024 Chronic Gastrointestinal hemorrhage (1 source) Gastrointestinal hemorrhage 01-31-2022 Comment on above: NPV RECTAL BLEEDING Genitourinary symptoms and ill-defined conditions (3 sources) Urge incontinence of urine; Translations: [Urge incontinence] Onset: 4 01-14-2024 Chronic Genitourinary symptoms and ill-defined conditions (9 sources) Urinary symptoms ; Translations: [Unspecified symptoms and signs involving the genitourinary system] Onset: 5 Episodic Headache; including migraine (2 sources) Episodic paroxysmal hemicrania; Translations: [Episodic paroxysmal hemicrania, not intractable] Onset: 5 09-21-2024 Chronic Hemorrhoids (2 sources) Second degree hemorrhoids; Translations: [Other hemorrhoids] Onset: 2 Episodic Hypertension with complications and secondary hypertension (3 sources) Hypertensive heart disease with heart failure; Translations: [Hypertensive heart disease with heart failure] Onset: 2 Chronic Malaise and fatigue (1 source) Fatigue; Translations: [Chronic fatigue, unspecified] 11-11-2023 Chronic Mycoses (2 sources) Opportunistic mycosis; Translations: [Candidiasis, unspecified] 11-01-2023 Episodic Nutritional deficiencies (20 sources) Vitamin D deficiency; Translations: [Vitamin D deficiency, unspecified] Onset: 0 04-18-2009 Chronic Osteoarthritis (20 sources) Osteoarthritis; Translations: [Unspecified osteoarthritis, unspecified site] Onset: 8 Resolved: 0 03-25-2021 Chronic Other aftercare (11 sources) Patient encounter status; Translations: [Other fpc (current) drug therapy] Episodic Other aftercare (1 source) Long-term current use of drug therapy; Translations: [Other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 mouth once daily as needed (When taking diuretic). DAILY - hydrocortisone 2.5 % cream Apply 1 application to affected area three times a day as needed (itchy skin lesion on chest). Apply thin layer as directed - torsemide (DEMADEX) 10 mg tablet Take 1 tablet by mouth once daily as needed (edema). - Simethicone 125 mg chewable tablet Take 1 tablet by mouth every 6 hours as needed. - blood sugar diagnostic (BLOOD GLUCOSE TEST) test strip Test blood sugar 1 time daily. Dx: Type 2 DM - Controlled E11.9 Insulin: No. - Lancets Test blood sugar(s) 2 times daily and as needed. To go with lancet pen with glucometer Dx: Type 2 DM - Controlled E11.9 Insulin: No - furosemide (LASIX) 10 mg/mL solution Take by mouth as directed. - mecobalamin (B12 ACTIVE ORAL) Take by mouth. - omeprazole (PRILOSEC) 20 mg capsule Take 1 capsule by mouth once daily. as directed - flash glucose scanning reader ([employer] ALEX 2 READER) Check sugars at least 4 times daily - albuterol HFA (PROVENTIL HFA, VENTOLIN HFA) 90 mcg/actuation inhaler Inhale 1- (more content not included)... Normal [facility] BACTERIAL CULTURE, URINEOrde red By: Melani Figueroa on 09-23-2024 Bacteria identified Cx Nom (U) Mixed microbiota: [facility] Bacteria identified Cx Nom (U) 10,000 -<50,000 CFU/ml Proteus mirabilis Abnormal [facility] Bacteria identified Cx Nom ( U)Ordered By: Melani Figueroa on 09-23-2024 Interpretation and review of laboratory results Abnormal [facility] This test was sergio roy and its performance characteristics determined by the [facility] [place] ([facility]). It has not been cleared or approved by the FDA. [facility] is regulated under CLIA as qualified to perform high-complexity testing. This test is used for clinical purposes. It should not be regarded as investigational or for research. [facility] HbA1c (Bld)on 09-22-2024 Average glucose Estimated from glycated hemoglobin (Bld) [Mass/Vol] 143 mg/dL [facility] Comment on above: eAG: (Estimated aver age glucose) is a calculated value from HgbA1c and is benefits representative of the average blood glucose level in the last 2-3 month period. HbA1c (Bld) [Mass fraction] 6.6 % High 4.3 - 5.6 % [facility] Comment on above: [place] Diabetes As sociation guidelines indicate that patients with HgbA1c in the range 5.7-6.4% are at increased risk for development of diabetes, and intervention by lifestyle modification may be beneficial. HgbA1c greater or equal to 6.5% is considered diagnostic of diabetes. Interpretation and review of laboratory results Abnormal [facility] ZINC BLDOrdered By: Rosaline ortez on 09-22-2024 Zinc [Mass/Vol] 63 ug/dL 60 - 120 ug/dL [facility] Comment on above: This test was develo ped, and its performance characteristics determined by the [facility] Department of Pathology and Laboratory Medicine. It has not been cleared or approved by the FDA. The [facility] Department of Pathology and Laboratory Medicine is regulated under CLIA as qualified to perform high-complexity testing. This test is used for clinical purposes. It should not be regarded as investigational or for research. Zinc [Mass/Vol]Ordered By: James Gurrola on 09-22-2024 Interpretation and review of laboratory results Normal [facility] 25(OH)D3 SerPl-ncon 2024 25-hydroxyvitamin D3 [Mass/Vol] 31.4 ng/mL Normal 31.0-80.0 [facility] Comment on above: Order Comment: Speci men Type: BLOOD SPECIMENOrdering Facility: [facility] Address: [address] [place] [address] Result Comment: Clas sification of 25 OH Vitamin D status: Deficiency/Insufficiency: < or = 30 ng/ml. Sufficiency/Optimal Levels: 31-80 ng/mL Toxicity: > 100 ng/mL. Test performed by chemiluminescent immunoassay. Performed By: #### 1 989-3 ####[facility] LABCLIA [id number] [place] [address] [place] 25-hydroxyvitamin D3 [Mass/V ol]on 09-21-2024 Interpretation and review of laboratory results Normal [facility] The reference range interval was based on an analysis of samples from healthy adults and may not pertain to children from 0-18 years old. [facility] Bacteria Ur Culton 5 Bacteria identified Cx Nom (U) CULTURE, URINE: Mixed microbiota: ORGANISM ID: 1 10,000 -<50,000 CFU/ml Proteus mirabilis ORGANISM ID: 1 (PROTEUS MIRABILIS) ANTIBIOTIC INTERPRETATION RASHAD STATUS REFERENCE RANGE Ampicillin S <=2 F Susceptible <=8 , Intermediate >8 , Resistant >16 Cefazolin S <=4 F Susceptible 0-16 , Intermediate <0 or >16 , Resistant >16 For uncomplicated urinary tract infections, cefazolin results can be used to predict susceptibility or resistance to cephalexin. Ceftriaxone S <=1 F Susceptible <=1 , Intermediate >1 , Resistant >=4 Cefepime S <=1 F Susceptible <=2 , Susceptible-Dose Dependent >2 , Resistant >=16 Ertapenem S <=0.5 F Susceptible <=0.5 , Intermediate >.5 , Resistant >1 Meropenem S <=0.25 F Susceptible <=1 , Intermediate >1 , Resistant >2 Ampicillin/Sulbact S <=2 F Susceptible <=8 , Intermediate >8 , Resistant >16 Piperacillin/Tazobac S <=4 F Susceptible <16 , Susceptible-Dose Dependent >=16 , Resistant >=32 Gentamicin S <=1 F Susceptible <=2 , Intermediate >2 , Resistant >=8 Tobramycin S <=1 F Susceptible <4 , Intermediate >=4 , Resistant >=8 Trimeth sulfameth S <=20 F Susceptible <=40 , Resistant >40 Ciprofloxacin S <=0.25 F Susceptible <0.5 , Intermediate >=.5 , Resistant >=1 Nitrofurantoin R 128 F Susceptible <=32 , Intermediate >32 , Resistant >64 Abnormal [facility] Comment on above: Performed By: #### 6 30-4 ####[facility] LABCLIA [id number] [address] STATES OF [facility] CBC panel Auto (Bld)on 09-21 Erythrocyte distribution width (RBC) [Ratio] 13.3 % 11.5 - 15.0 % [facility] Hematocrit (Bld) [Volume fraction] 40.8 % 36.0 - 46.0 % [facility] Hemoglobin (Bld) [Mass/Vol] 13.1 g/dL 11.5 - 15.5 g/dL [facility] Interpretation and review of laboratory results Normal [facility] MCH (RBC) [Entitic mass] 29.1 pg 26.0 - 34.0 pg [facility] MCHC (RBC) [Mass/Vol] 32.1 g/dL 30.5 - 36.0 g/dL [facility] MCV (RBC) [Entitic vol] 90.7 fL 80.0 - 100.0 fL [facility] Nucleated RBC (Bld) [#/Vol] NINF [facility] Platelet mean volume (Bld) [Entitic vol] 9.9 fL 9.0 - 12.7 fL [facility] Platelets (Bld) [#/Vol] 370 10*3/uL [facility] RBC (Bld) [#/Vol] 4.5 10*6/uL 3.90 - 5.20 m/uL [facility] WBC (Bld) [#/Vol] 7.99 10*3/uL [facility] Erythrocyte distribution width (RBC) [Ratio] 13.3 % Normal 11.5-15.0 [facility] Comment on above: Order Comment: Speci men Type: BLOOD SPECIMENOrdering Facility: [facility] Address: [address] [place] [address] Performed By: #### 5 8410-2 ####[facility] LABCLIA [id number] [id number] [address] [place] Hematocrit (Bld) [Volume fraction] 40.8 % Normal 36.0-46.0 [facility] Comment on above: Order Comment: Speci men Type: BLOOD SPECIMENOrdering Facility: [facility] Address: [address] [place] [address] Performed By: #### 5 8410-2 ####[facility] LABCLIA [id number] [place] [address] [place] Hemoglobin (Bld) [Mass/Vol] 13.1 g/dL Normal 11.5-15.5 [facility] Comment on above: Order Comment: Speci men Type: BLOOD SPECIMENOrdering Facility: [facility] Address: [address] [place] [address] Performed By: #### 5 8410-2 ####[facility] LABIA [id number] [place] [address] [place] MCH (RBC) [Entitic mass] 29.1 pg Normal 26.0-34.0 [facility] Comment on above: Order Comment: Speci men Type: BLOOD SPECIMENOrdering Facility: [facility] Address: [address] [place] [address] Performed By: #### 5 8410-2 ####[facility] LABIA [id number] [place] [address] [place] MCHC (RBC) [Mass/Vol] 32.1 g/dL Normal 30.5-36.0 [facility] Comment on above: Order Comment: Speci men Type: BLOOD SPECIMENOrdering Facility: [facility] Address: [address] [place] [address] Performed By: #### 5 8410-2 ####[facility] LABIA [id number] [place] [address] [place] MCV (RBC) [Entitic vol] 90.7 fL Normal 80.0-100.0 [facility] Comment on above: Order Comment: Speci men Type: BLOOD SPECIMENOrdering Facility: [facility] Address: [facility] [place] [place] [address] Performed By: #### 5 8410-2 ####[facility] LABIA [id number] [place] [address] [place] Nucleated RBC (Bld) [#/Vol] 10*3/uL Normal <0.01 [facility] Comment on above: Order Comment: Speci men Type: BLOOD SPECIMENOrdering Facility: [facility] Address: [address] [place] [address] Performed By: #### 5 8410-2 ####[facility] LABIA [id number] [place] [address] [place] Platelet mean volume (Bld) [Entitic vol] 9.9 fL Normal 9.0-12.7 [facility] Comment on above: Order Comment: Speci men Type: BLOOD SPECIMENOrdering Facility: [facility] Address: [address] [place] [address] Performed By: #### 5 8410-2 ####[facility] LABIA [id number] [place] [address] [place] Platelets (Bld) [#/Vol] 370 10*3/uL Normal 150-400 [facility] Comment on above: Order Comment: Speci men Type: BLOOD SPECIMENOrdering Facility: [facility] Address: [address] [place] [address] Performed By: #### 5 8410-2 ####[facility] LABIA [id number] [place] [id number] [place] RBC (Bld) [#/Vol] 4.50 10*6/uL Normal 3.90-5.20 [facility] Comment on above: Order Comment: Speci men Type: BLOOD SPECIMENOrdering Facility: [facility] Address: [address] [place] [address] Performed By: #### 5 8410-2 ####[facility] LABCLIA [id number] [place] [id number] [place] WBC (Bld) [#/Vol] 7.99 10*3/uL Normal 3.70-11.00 [facility] Comment on above: Order Comment: Speci men Type: BLOOD SPECIMENOrdering Facility: [facility] Address: [address] [place] [address] Performed By: #### 5 8410-2 ####[facility] LABCLIA [id number] [place] [id number] [place] CNOVon 09-21-2024 CNOV Office Visit (INTMWS ) ----- ARLETTE RUIZYN Mina ([id number]) 1945 F T Date Time Provider Department 09/21/24 1:20 PM KRISTY BROWER INTMWS During your visit today, we recorded the following information about you: Pulse Blood pressure Weight Height 62/minute 127/71 81.6 kg 1.524 m Kristy Brower MD 10/21/2024 6:57 PM Signed This note was created using NoteWriter. Subjective Arlette Enriquez Ruiz is a 79-year-old female with a history of fibromyalgia, presenting for evaluation of chronic right ear pain, cephalalgia, and back pain. Arlette reports chronic right ear pain and cephalalgia, primarily localized to the right side of the head, with occasional pain in the left hinduism. The pain is described as being underneath the mastoid and through the ear, and occurs almost daily. She notes that the pain was not present yesterday, but recurred upon waking this morning. The pain is exacerbated by rubbing the affected area, which elicits a sharp pain. She has not identified any specific triggers or consistent alleviating factors for the pain, though she has found some relief with the application of a steam bag to the ears and heat therapy. She denies pain with mastication. Arlette also reports a recent onset of a boom sound in her neck when turning her head, distinct from previous experiences of snap, crackle, and pop sounds. This new sound occurs frequently and is described as more pronounced and concerning. She denies any improvement in symptoms following this sound and expresses apprehension about it. Additionally, Arlette reports worsening back pain, which she describes as feeling connected to her spine and ribs. She has been using heat therapy and topical treatments for relief. She has not yet undergone formal physical therapy, deep ultrasound, or dry needling for these symptoms. She has not tried the prescribed tizanidine 2 mg, which was intended for muscle spasms and back pain. Arlette has a history of fibromyalgia, though she does not recall the specific date of diagnosis. She reports increased neuropathy symptoms in her feet. She also notes a recent cessation of verapamil and Carafate, and plans to resume taking a multivitamin. She is currently using a Freestyle Alex for glucose monitoring and an AutoPAP device, which she dislikes but continues to use. She reports worsening allergy symptoms and a malodorous urine. PAST MEDICAL HISTORY Diagnosis Date CAD (coronary artery disease) 04/16/2012 70-80% LAD --had stent placed 09/07/14 Depressive disorder, not elsewhere classified Diverticulitis of colon with hemorrhage 2001 DM w/o Complication Type II 04/05/2009 GERD (gastroesophageal reflux disease) Hiatal hernia Hypertension 03/30/1988 IPF (idiopathic pulmonary fibrosis) ([facility]) Irritable bowel syndrome Occipital neuralgia Osteoarthritis 06/27/2011 Other chronic sinusitis Other osteoporosis Post-nasal drip Situational depression 12/27/2014 Sleep apnea 03/30/1996 Statin intolerance 12/24/2016 SVT (supraventricular tachycardia) ([facility]) 10/02/2018 Thoracic aortic aneurysm [address] chest (2014, 2013)--July 09, [address] Unspecified essential hypertension Patient has had since age 33 Vitamin D Deficiency 04/18/2009 Current Outpatient Medications Medication Sig famotidine (PEPCID) 40 mg tablet Take 1 tablet by mouth once daily. tiZANidine (ZANAFLEX) 2 mg tablet Take 1 tablet by mouth every 8 hours as needed. flash glucose sensor (FREESTYLE ALEX 2 SENSOR) kit 1 Each every 2 weeks. E11.9 DM type 2, Insulin: No lisinopril (ZESTRIL) 5 mg tablet Take 1 tablet by mouth once daily. azelastine 0.1% nasal spray Use 1 Coleman in each nostril two times a day. CPAP Continue settings of Auto PAP to 5-15 cm of water with humidification. Continue orders for: Mask (per patient preference) optional chin strap (if indicated) , filters, tubing, humidifier and lifetime supplies. potassium chloride (K-TAB) 10 mEq tablet Take 1 tablet by mouth once daily as needed (When taking diuretic). DAILY hydrocortisone 2.5 % cream Apply 1 application to affected area three times a day as needed (itchy skin lesion on chest). Apply thin layer as directed torsemide (DEMADEX) 10 mg tablet Take 1 tablet by mouth once daily as needed (edema). Simethicone 125 mg chewable tablet Take 1 tablet by mouth every 6 hours as needed. blood sugar diagnostic (BLOOD GLUCOSE TEST) test strip Test blood sugar 1 time daily. Dx: Type 2 DM - Controlled E11.9 Insulin: No. Lancets Test blood sugar(s) 2 times daily and as needed. To go with lancet pen with glucometer Dx: Type 2 DM - Controlled E11.9 Insulin: No furosemide (LASIX) 10 mg/mL solution Take by mouth as directed. mecobalamin (B12 ACTIVE ORAL) Take by mouth. omeprazole (PRILOSEC) 20 mg capsule Take 1 capsule by mouth once daily. as directed flash glucose scanning (more content not included)... Normal [facility] Comprehensive metabolic 2000 panelon 09-21-2024 Albumin [Mass/Vol] 4.4 g/dL 3.9 - 4.9 g/dL [facility] ALP [Catalytic activity/Vol] 79 U/L 34 - 123 U/L [facility] ALT [Catalytic activity/Vol] 10 U/L 7 - 38 U/L [facility] Anion gap [Moles/Vol] 12 mmol/L 8 - 15 mmol/L [facility] AST [Catalytic activity/Vol] 15 U/L 13 - 35 U/L [facility] Bilirubin [Mass/Vol] 0.2 mg/dL 0.2 - 1 .3 mg/dL [facility] Calcium [Mass/Vol] 10.2 mg/dL 8.5 - 10. 2 mg/dL [facility] Chloride [Moles/Vol] 102 mmol/L 98 - 10 7 mmol/L [facility] CO2 [Moles/Vol] 25 mmol/L 22 - 30 mmol/L [facility] Creatinine [Mass/Vol] 0.6 mg/dL 0.58 - 0.96 mg/dL [facility] GFR/1.73 sq M.predicted among non-blacks MDRD (S/P/Bld) [Vol rate/Area] 90 mL/min/{1.73_m2} - PINF [facility] Comment on above: Estimated Glomerular Filtration Rate (eGFR) is calculated using the 2020 CKD-EPI creatinine equation. This equation utilizes serum creatinine, sex, and age as parameters. The creatinine assay has traceable calibration to isotope dilution-mass spectrometry. Refer to KDIGO guidelines for clinical interpretation. In patients with unstable renal function, e.g. those with acute kidney injury, the eGFR may not accurately reflect actual GFR. Glucose [Mass/Vol] 99 mg/dL 74 - 99 mg/dL [facility] Comment on above: The [place] Diabete s Association (ADA) provides guidance for cutoff values for fasting glucose and random glucose. The ADA defines fasting as no caloric intake for at least 8 hours. Fasting plasma glucose results between 100 to 125 mg/dL indicate increased risk for diabetes (prediabetes). Fasting plasma glucose results greater than or equal to 126 mg/dL meet the criteria for diagnosis of diabetes. In the absence of unequivocal hyperglycemia, results should be confirmed by repeat testing. In a patient with classic symptoms of hyperglycemia or hyperglycemic crisis, random plasma glucose results greater than or equal to 200 mg/dL meet the criteria for diagnosis of diabetes. Reference: Standards of Medical Care in Diabetes 2016, [place] Diabetes Association. Diabetes Care. 2016.39(Suppl 1). Interpretation and review of laboratory results Abnormal [facility] Potassium [Moles/Vol] 4.2 mmol/L 3.7 - 5.1 mmol/L [facility] Protein [Mass/Vol] 7.2 g/dL 6.3 - 8.0 g/dL [facility] Sodium [Moles/Vol] 139 mmol/L 136 - 144 mmol/L [facility] Urea nitrogen [Mass/Vol] 23 mg/dL High 7 - 21 mg/dL [facility] Albumin [Mass/Vol] 4.4 g/dL Normal 3.9-4.9 [facility] Comment on above: Order Comment: Speci men Type: BLOOD SPECIMENOrdering Facility: [facility] Address: [address] [place] [address] Performed By: #### 2 4323-8, 6-4, 06609-3 ####[facility] LABCLIA [id number] [place] [address] [place] ALP [Catalytic activity/Vol] 79 U/L Normal 34-123 [facility] Comment on above: Order Comment: Speci men Type: BLOOD SPECIMENOrdering Facility: [facility] Address: [address] [place] [address] Performed By: #### 2 4323-8, 2275-, 90181-2 ####[facility] LABCLIA [id number] [place] [address] [place] ALT [Catalytic activity/Vol] 10 U/L Normal 7-38 [facility] Comment on above: Order Comment: Speci men Type: BLOOD SPECIMENOrdering Facility: [facility] Address: [address] [place] [address] Performed By: #### 2 4323-8, 2275-06, 91406-7 ####[facility] LABCLIA [id number] [place] [id number] [place] Anion gap [Moles/Vol] 12 mmol/L Normal 8-15 [facility] Comment on above: Order Comment: Speci men Type: BLOOD SPECIMENOrdering Facility: [facility] Address: [address] [place] [address] Performed By: #### 2 4323-8, 2275-, 96019-9 ####[facility] LABCLIA [id number] [address] [address] [place] AST [Catalytic activity/Vol] 15 U/L Normal 13-35 [facility] Comment on above: Order Comment: Speci men Type: BLOOD SPECIMENOrdering Facility: [facility] Address: [address] [place], [place] [address] Performed By: #### 2 4323-8, 6-4, 66557-4 ####[facility] LABCLIA [id number] [address] [address] [place] Bilirubin [Mass/Vol] 0.2 mg/dL Normal 0.2-1.3 [facility] Comment on above: Order Comment: Speci men Type: BLOOD SPECIMENOrdering Facility: [facility] Address: [address] [place], [place] [address] Performed By: #### 2 4323-8, 6-4, 26996-5 ####[facility] LABCLIA [id number] [address] [address] [place] Calcium [Mass/Vol] 10.2 mg/dL Normal 8.5-10.2 [facility] Comment on above: Order Comment: Speci men Type: BLOOD SPECIMENOrdering Facility: [facility] Address: [address] [place], [place] [address] Performed By: #### 2 4323-8, 2275-, 02017-0 ####[facility] LABCLIA [id number] [place] [id number] [place] Chloride [Moles/Vol] 102 mmol/L Normal 98-107 [facility] Comment on above: Order Comment: Speci men Type: BLOOD SPECIMENOrdering Facility: [facility] Address: [address] [place], [place] [address] Performed By: #### 2 4323-8, 2275-4, 44810-3 ####[facility] LABCLIA [id number] [address] [address] [place] CO2 [Moles/Vol] 25 mmol/L Normal 22-30 [facility] Comment on above: Order Comment: Speci men Type: BLOOD SPECIMENOrdering Facility: [facility] Address: [address] [place] [address] Performed By: #### 2 4323-8, 6-4, 28849-5 ####[facility] LABIA [id number] [address] [address] [place] Creatinine [Mass/Vol] 0.60 mg/dL Normal 0.58-0.96 [facility] Comment on above: Order Comment: Specradha men Type: BLOOD SPECIMENOrdering Facility: [facility] Address: [address] [place] [address] Performed By: #### 2 4323-8, 6-4, 85981-9 ####[facility] [id number] [place] [address] [place] Creatinine and Glomerular filtration rate.predicted panel (S/P/Bld) 90 mL/min/1.73m??? Normal >=60 [facility] Comment on above: Order Comment: Nohemy inman Type: BLOOD SPECIMENOrdering Facility: [facility] Address: [address] [place] [address] Result Comment: Loco mated Glomerular Filtration Rate (eGFR) is calculated using the 2020 CKD-EPI creatinine equation. This equation utilizes serum creatinine, sex, and age as parameters. The creatinine assay has traceable calibration to isotope dilution-mass spectrometry. Refer to KDIGO guidelines for clinical interpretation. In patients with unstable renal function, e.g. those with acute kidney injury, the eGFR may not accurately reflect actual GFR. Performed By: #### 2 4323-8, 6-4, 73485-1 ####[facility]IA [id number] [address] [address] [place] Glucose [Mass/Vol] 99 mg/dL Normal 74-99 [facility] Comment on above: Order Comment: Nohemy men Type: BLOOD SPECIMENOrdering Facility: [facility] Address: [address] [place] [address] Result Comment: The [place] Diabetes Association (ADA) provides guidance for cutoff values for fasting glucose and random glucose. The ADA defines fasting as no caloric intake for at least 8 hours. Fasting plasma glucose results between 100 to 125 mg/dL indicate increased risk for diabetes (prediabetes). Fasting plasma glucose results greater than or equal to 126 mg/dL meet the criteria for diagnosis of diabetes. In the absence of unequivocal hyperglycemia, results should be confirmed by repeat testing. In a patient with classic symptoms of hyperglycemia or hyperglycemic crisis, random plasma glucose results greater than or equal to 200 mg/dL meet the criteria for diagnosis of diabetes. Reference: Standards of Medical Care in Diabetes 2016, [place] Diabetes Association. Diabetes Care. 2016.39(Suppl 1). Performed By: #### 2 4323-8, 2275-4, 39814-4 ####[facility] LABIA [id number] [place] [address] [place] Potassium [Moles/Vol] 4.2 mmol/L Normal 3.7-5.1 [facility] Comment on above: Order Comment: Speci men Type: BLOOD SPECIMENOrdering Facility: [facility] Address: [address] [place] [address] Performed By: #### 2 4323-8, 2275-06, 19894-9 ####[facility]IA [id number] [place] [id number] [place] Protein [Mass/Vol] 7.2 g/dL Normal 6.3-8.0 [facility] Comment on above: Order Comment: Speci men Type: BLOOD SPECIMENOrdering Facility: [facility] Address: [address] [place], [place] [address] Performed By: #### 2 4323-8, 2275-06, 39195-3 ####[facility]IA [id number] [place] [id number] [place] Sodium [Moles/Vol] 139 mmol/L Normal 136-144 [facility] Comment on above: Order Comment: Speci men Type: BLOOD SPECIMENOrdering Facility: [facility] Address: [address] [place], [place] [address] Performed By: #### 2 4323-8, 2275-06, 15174-3 ####[facility] LABCLIA [id number] [place] [id number] [place] Urea nitrogen [Mass/Vol] 23 mg/dL High 7-21 [facility] Comment on above: Order Comment: Speci men Type: BLOOD SPECIMENOrdering Facility: [facility] Address: [address] [place] [address] Performed By: #### 2 4323-8, 6-4, 70484-4 ####[facility] LABCLIA [id number] [place] [id number] [place] FERRITINon 09-21-2024 Ferritin [Mass/Vol] 183 ng/mL 14.7 - 205.1 ng/mL [facility] FOLATE, SERUMon 09-21-2024 Folate [Mass/Vol] 16.4 ng/mL 4.7 - PINF ng/mL [facility] Ferritin SerPl-mCncon 2024 Ferritin [Mass/Vol] 183.0 ng/mL Normal 14.7-205.1 [facility] Comment on above: Order Comment: Speci men Type: BLOOD SPECIMENOrdering Facility: [facility] Address: [address] [place] [address] Performed By: #### 2 4323-8, 4, 74243-8 ####[facility] LABCLIA [id number] [place] [id number] [place] Ferritin [Mass/Vol]on 2024 Interpretation and review of laboratory results Normal [facility] Folate SerPl-mCncon 09-22-19 Folate [Mass/Vol] 16.4 ng/mL Normal >4.7 [facility] Comment on above: Order Comment: Speci men Type: BLOOD SPECIMENOrdering Facility: [facility] Address: [address] [place] [address] Performed By: #### 2 132-9, 2284-8 ####[facility] LABCLIA [id number] [place] [id number] [place] HbA1c (Bld)on 09-21-2024 Average glucose Estimated from glycated hemoglobin (Bld) [Mass/Vol] 143 mg/dL Normal [facility] Comment on above: Order Comment: Nohemy inman Type: BLOOD SPECIMENOrdering Facility: [facility] Address: [address] [place] [address] Result Comment: eAG: (Estimated average glucose) is a calculated value from HgbA1c and is benefits representative of the average blood glucose level in the last 2-3 month period. Performed By: #### 5 5454-3 ####[facility] LABCLIA [id number] [place] [address] [place] HbA1c (Bld) [Mass fraction] 6.6 % High 4.3-5.6 [facility] Comment on above: Order Comment: Nohemy inman Type: BLOOD SPECIMENOrdering Facility: [facility] Address: [address] [place] [address] Result Comment: [place] Diabetes Association guidelines indicate that patients with HgbA1c in the range 5.7-6.4% are at increased risk for development of diabetes, and intervention by lifestyle modification may be beneficial. HgbA1c greater or equal to 6.5% is considered diagnostic of diabetes. Performed By: #### 5 5454-3 ####[facility] LABCLIA [id number] [place] [id number] [place] Iron and Iron binding capaci ty panelon 09-21-2024 Interpretation and review of laboratory results Normal [facility] Iron [Mass/Vol] 62 ug/dL 41 - 186 ug/dL [facility] Iron binding capacity [Mass/Vol] 265 ug/dL 232 - 386 ug/dL [facility] Iron/TIBC [Molar ratio] 23.4 % 15.0 - 57.0 % [facility] Iron [Mass/Vol] 62 ug/dL Normal 41-186 [facility] Comment on above: Order Comment: Reginai men Type: BLOOD SPECIMENOrdering Facility: [facility] Address: [address] [place] [address] Performed By: #### 2 4323-8, 2276-4, 60659-9 ####[facility] LABCLIA [id number] [place] [id number] [place] Iron binding capacity [Mass/Vol] 265 ug/dL Normal 232-386 [facility] Comment on above: Order Comment: Speci men Type: BLOOD SPECIMENOrdering Facility: [facility] Address: [address] [place], [place] [address] Performed By: #### 2 4323-8, 2276-4, 91089-0 ####[facility] LABIA [id number] [place] [id number] [place] Iron/TIBC [Molar ratio] 23.4 % Normal 15.0-57.0 [facility] Comment on above: Order Comment: Speci men Type: BLOOD SPECIMENOrdering Facility: [facility] Address: [address] [place] [address] Performed By: #### 2 4323-8, 2276-4, 10465-8 ####[facility]IA [id number] [address] [place] No Panel Informationon 09-21 Interpretation and review of laboratory results Normal [facility] Urinalysis complete panel (U )on 09-21-2024 Bacteria LM.HPF (Urine sed) [#/Area] Negative Negative /HPF [facility] Bilirubin Ql (U) Negative Negative [facility] Clarity (Unsp spec) Clear Clear [facility] Color (U) Yellow Yellow [facility] Epithelial cells LM.HPF (Urine sed) [#/Area] None Seen /HPF [facility] Glucose Test strip (U) [Mass/Vol] Negative Negative [facility] Hemoglobin Ql (U) Negative Negative [facility] Hyaline casts (Urine sed) [#/Area] 0 /[LPF] 0 /LPF [facility] Interpretation and review of laboratory results Abnormal [facility] Ketones Ql (U) Negative Negative [facility] Leukocyte esterase Test strip Ql (U) 2+ Abnormal Negative [facility] Nitrite Ql (U) Negative Negative [facility] pH (U) 6 [pH] NINF - 8.5 [facility] Protein (U) [Mass/Vol] Negative Negative [facility] RBC LM.HPF (Urine sed) [#/Area] 0-2 /HPF 0-2 /HPF [facility] Specific gravity (U) [Rel density] 1.018 1.005 - 1.030 [facility] Urobilinogen Ql (U) 0.2 EU/dL 0.2-1.0 EU/dL [facility] WBC LM.HPF (Urine sed) [#/Area] 0-5 /HPF 0-5 /HPF [facility] Result rechecked This test was developed and its performance characteristics determined by [facility]'s [facility] Pathology and Laboratory Medicine [place] ([facility]). It has not been cleared or approved by the FDA. [facility] is regulated under CLIA as qualified to perform high-complexity testing. This test is used for clinical purposes. It should not be regarded as investigational or for research. [facility] Bacteria LM.HPF (Urine sed) [#/Area] Negative Normal Negative [facility] Comment on above: Order Comment: Speci men Type: URINE SPECIMENOrdering Facility: [facility] Address: [address] [place] [address] Performed By: #### 2 4356-8 ####[facility] [id number] [place] [address] [place] Bilirubin Ql (U) Negative Normal Negative [facility] Comment on above: Order Comment: Speci men Type: URINE SPECIMENOrdering Facility: [facility] Address: [address] [place] [address] Performed By: #### 2 4356-8 ####[facility] [id number] [place] [address] [place] Clarity (Unsp spec) Clear Normal Clear [facility] Comment on above: Order Comment: Speci men Type: URINE SPECIMENOrdering Facility: [facility] Address: [address] [place] [address] Performed By: #### 2 4356-8 ####[facility] LABCLIA [id number] [place] [address] [place] Color (U) Yellow Normal Yellow [facility] Comment on above: Order Comment: Speci men Type: URINE SPECIMENOrdering Facility: [facility] Address: [address] [place] [address] Performed By: #### 2 4356-8 ####[facility] LABCLIA [id number] [address] [place] Epithelial cells LM.HPF (Urine sed) [#/Area] None Seen Normal [facility] Comment on above: Order Comment: Speci men Type: URINE SPECIMENOrdering Facility: [facility] Address: [address] [place] [address] Performed By: #### 2 4356-8 ####[facility] LABCLIA [id number] [address] [place] Glucose Test strip (U) [Mass/Vol] Negative Normal Negative [facility] Comment on above: Order Comment: Speci men Type: URINE SPECIMENOrdering Facility: [facility] Address: [address] [place] [address] Performed By: #### 2 4356-8 ####[facility] LABCLIA [id number] [place] [address] [place] Hemoglobin Ql (U) Negative Normal Negative [facility] Comment on above: Order Comment: Speci men Type: URINE SPECIMENOrdering Facility: [facility] Address: [address] [place] [address] Performed By: #### 2 4356-8 ####[facility] LABCLIA [id number] [place] [address] [place] Hyaline casts (Urine sed) [#/Area] 0 /[LPF] Normal 0 /LPF [facility] Comment on above: Order Comment: Speci men Type: URINE SPECIMENOrdering Facility: [facility] Address: [address] [place] [address] Performed By: #### 2 4356-8 ####[facility] LABCLIA [id number] [address] [place] [address] [place] Ketones Ql (U) Negative Normal Negative [facility] Comment on above: Order Comment: Speci men Type: URINE SPECIMENOrdering Facility: [facility] Address: [address] [place] [address] Performed By: #### 2 4356-8 ####[facility] LABCLIA [id number] [place] [address] [place] Leukocyte esterase Test strip Ql (U) 2+ Abnormal Negative [facility] Comment on above: Order Comment: Speci men Type: URINE SPECIMENOrdering Facility: [facility] Address: [address] [place] [address] Performed By: #### 2 4356-8 ####[facility] LABCLIA [id number] [address], [facility]95 [place] Nitrite Ql (U) Negative Normal Negative [facility] Comment on above: Order Comment: Speci men Type: URINE SPECIMENOrdering Facility: [facility] Address: [address] [place] [address] Performed By: #### 2 4356-8 ####[facility] LABCLIA [id number] [place] [id number] [place] pH (U) 6.0 [pH] Normal <8.5 [facility] Comment on above: Order Comment: Speci men Type: URINE SPECIMENOrdering Facility: [facility] Address: [address] [place] [address] Performed By: #### 2 4356-8 ####[facility] LABCLIA [id number] [address], [facility]95 [place] Protein (U) [Mass/Vol] Negative Normal Negative [facility] Comment on above: Order Comment: Speci men Type: URINE SPECIMENOrdering Facility: [facility] Address: [address] [place] [address] Performed By: #### 2 4356-8 ####[facility] LABIA [id number] [place] [address] [place] RBC LM.HPF (Urine sed) [#/Area] 0-2 /HPF Normal 0-2 /HPF [facility] Comment on above: Order Comment: Speci men Type: URINE SPECIMENOrdering Facility: [facility] Address: [address] [place] [address] Performed By: #### 2 4356-8 ####[facility] [id number] [place] [address] [place] Specific gravity (U) [Rel density] 1.018 Normal 1.005-1.03 0 [facility] Comment on above: Order Comment: Speci men Type: URINE SPECIMENOrdering Facility: [facility] Address: [address] [place] [address] Performed By: #### 2 4356-8 ####[facility] [id number] [address] [place] Urobilinogen Ql (U) 0.2 EU/dL Normal 0.2-1.0 EU/dL [facility] Comment on above: Order Comment: Speci men Type: URINE SPECIMENOrdering Facility: [facility] Address: [address] [place] [address] Performed By: #### 2 4356-8 ####[facility] [id number] [place] [address] [place] WBC LM.HPF (Urine sed) [#/Area] 0-5 /HPF Normal 0-5 /HPF [facility] Comment on above: Order Comment: Speci men Type: URINE SPECIMENOrdering Facility: [facility] Address: [address] [place], [place] [address] Performed By: #### 2 4356-8 ####[facility] [id number] [place] [address] [place] VITAMIN B12on 09-21-2024 Cobalamin (Vitamin B12) [Mass/Vol] 488 pg/mL 232 - 1245 pg/mL [facility] VITAMIN D 25 HYDROXYon 09-21 25-hydroxyvitamin D3 [Mass/Vol] 31.4 ng/mL 31.0 - 80.0 ng/mL [facility] Comment on above: Classification of 25 [place] Vitamin D status: Deficiency/Insufficiency: < or = 30 ng/ml. Sufficiency/Optimal Levels: 31-80 ng/mL Toxicity: > 100 ng/mL. Test performed by chemiluminescent immunoassay. Vit B12 SerPl-mCncon 025 Cobalamin (Vitamin B12) [Mass/Vol] 488 pg/mL Normal 232-1245 [facility] Comment on above: Order Comment: Speci men Type: BLOOD SPECIMENOrdering Facility: [facility] Address: [address] [place] [address] Performed By: #### 2 132-9, 2284-8 ####[facility] [id number] [place] [address] [place] Zinc SerPl-mCncon 09-21-2024 Zinc [Mass/Vol] 63 ug/dL Normal 60-120 [facility] Comment on above: Order Comment: Speci men Type: BLOOD SPECIMENOrdering Facility: [facility] Address: [address] [place] [address] Result Comment: This test was developed, and its performance characteristics determined by the [facility] Department of Pathology and Laboratory Medicine. It has not been cleared or approved by the FDA. The [facility] Department of Pathology and Laboratory Medicine is regulated under CLIA as qualified to perform high-complexity testing. This test is used for clinical purposes. It should not be regarded as investigational or for research. Performed By: #### 5 763-8 ####[facility] LABIA [id number] [place] [address] [facility] CNOVon 09-09-2024 CNOV Office Visit (PODIWS ) ----- WHITNEY RUIZ ([id number]) 1945 F T Date Time Provider Department 09/09/24 9:15 AM KIRIT CHAVEZ PODIWS During your visit today, we recorded the following information about you: Dipti Ga MA 09/10/2024 6:54 PM Signed AMB ROOMING INTAKE FLOWSHEET DATA Pain Pain Level: 8 Pain Location: Toe Description: Pressure, Stabbing Duration Amount of Time: 8 Duration Units: Months Frequency: Continuous Tylenol as needed Kirit Chavez 09/09/2024 9:42 AM Signed Trichloroacetic acid (TCA) has been applied to the plantar warts. Rinse off in 12 hours and keep clean and dry. May bathe and shower normally starting the day after treatment The area is expected to burn and blister in about 1-3 days, if painful soak in plain, cool water. If blistered, you may drain the blister with a clean, STERILIZED needle and apply OTC antibiotic ointment and band aid to area. Repeat 2-3 times daily as needed. Tylenol or Aleve as needed for pain, provided you have no allergies to either of these. Keep scheduled follow up appointment to have wart(s) re-evaluated and/or additional treatments. Powerstep Original Full length. Can purchase at [email or web address] Runner and boots,shoes and more here in [place], [employer] in [place] or [place]. Also can find in [employer] in [facility]. Powersteps can also be purchased online, starting around $45.00 If you have a metatarsal or dancer pad for your feet apply the pad directly to the insole so you can interchange between your shoes. Find a shoe with a removable insole and take this out and replace with your powerstep insole. Always bring powersteps with you when shopping for shoes so that you can make sure that everything fits well together Diabetes Foot Care Instructions When you have diabetes, proper foot care is very important. Poor foot care may lead to amputation of a foot or leg. As a person with diabetes, you are more vulnerable to foot problems, because diabetes can damage your nerves and reduce blood flow to your feet. Here are some diabetes foot care tips to follow: Wash and Dry Your Feet Daily Use mild soaps Use warm water Pat your skin dry; do not rub. Thoroughly dry your feet. After washing, use lotion on your feet to prevent cracking. Do not put lotion between your toes. Examine Your Feet Each Day Check the tops and bottoms of your feet. Have someone else look at your feet if you cannot see them. Check for dry, cracked skin. Look for blisters, cuts, scratches, or other sores. Check for redness, increased warmth, or tenderness when touching any area of your feet. Check for ingrown toenails, corns, and calluses. If you get a blister or sore from your shoes, do not pop it. Apply a bandage and wear a different pair of shoes. Take Care of Your Toenails Cut toenails after bathing, when they are soft. Cut toenails straight across and smooth with a nail file. Avoid cutting into the corners of toes. Do not cut cuticles. If you have neuropathy (or decreased sensation in your feet) a medical review coordinator should always cut your toenails. Be Careful When Exercising Walk and exercise in comfortable shoes. Do not exercise when you have open sores on your feet. Protect Your Feet With Shoes and Socks Never go barefoot. Always protect your feet by wearing shoes or hard-soled slippers or footwear. Avoid shoes with high heels and pointed toes. Avoid shoes that expose your toes or heels (such as open-toed shoes or sandals). These types of shoes increase your risk for injury and potential infections. Try on new footwear with the type of socks you usually wear. Do not wear new shoes for more than an hour at a time. Change your socks daily. Look and feel inside your shoes before putting them on to make sure there are no foreign objects or rough areas. Avoid tight socks. Wear natural-fiber socks (cotton, wool, or a cotton-wool blend). Wear special shoes if your health care provider recommends them. Wear shoes/boots that will protect your feet from various weather conditions (cold, moisture, etc.). Make sure your shoes fit properly. If you have neuropathy (nerve damage), you may not notice that your shoes are too tight. Perform the footwear test described below. Footwear Test Use this simple test to see if your shoes fit correctly: Stand on a piece of paper. (Make sure you are standing and not sitting, because your foot changes shape when you stand.) Trace the outline of your foot. Trace the outline of your shoe. Compare the tracings: Is the shoe too narrow? Is your foot crammed into the shoe? The shoe should be at least 1/2 inch longer than your longest toe and as wide as your foot. Proper Shoe Choices The following types of shoes are best for people with diabetes Closed toes and heels Leather uppers without a seam inside (more content not included)... Normal [facility] CNOVon 08-29-2024 CNOV Office Visit (INTMWS ) ----- WHITNEY RUIZ ([id number]) 1945 F T Date Time Provider Department 08/29/24 11:20 AM KOJO FREDERICK INTMWS During your visit today, we recorded the following information about you: Pulse Blood pressure Weight 70/minute 166/90 83.6 kg Kojo Frederick APRN.CIRCUIT TESTER 08/29/2024 12:45 PM Signed SUBJECTIVE Whitney Hernandezvan is a 79 year old female here today for a check up on her medical problems. Chief Complaint Patient presents with: Back Pain: states going on for years but worse for about the last month MARY Chong is a 79-year-old female with a history of SVT, presenting with worsening mid-back pain and urinary incontinence. Arlette reports worsening mid-back pain, described as a tightness and spasm-like sensation, localized to the paraspinal muscles and radiating to the costal margin. The pain is exacerbated by standing and sitting, and alleviated by lying down. She has not taken her prescribed pain medication, Percocet, for this issue. She has tried heat and Tylenol without significant relief. She expresses reluctance to use muscle relaxants due to concerns about potential effects on her heart, given her history of SVT. She also reports worsening urinary incontinence, describing difficulty controlling urine flow when attempting to remove her pants, resulting in urine leakage onto her pad and underwear. She notes a malodorous urine and questions if it is related to her blood glucose levels, which was 169 mg/dL this morning. She plans to follow up with her urologist, Dr. Charles, regarding these symptoms. Additionally, she mentions ear pain radiating from her ear to her neck and plans to consult her ENT specialist for further evaluation. Her medications were reviewed today and her list is now up to date. Medications Current Outpatient Medications Medication Sig lisinopril (ZESTRIL) 5 mg tablet Take 1 tablet by mouth once daily. azelastine 0.1% nasal spray Use 1 Coleman in each nostril two times a day. fluticasone (FLONASE) 50 mcg/actuation nasal spray Use 1-2 Sprays in each nostril once daily as needed for cold/allergy symptoms. Takes daily as needed hydrocortisone 2.5 % cream Apply 1 application to affected area three times a day as needed (itchy skin lesion on chest). Apply thin layer as directed torsemide (DEMADEX) 10 mg tablet Take 1 tablet by mouth once daily as needed (edema). Simethicone 125 mg chewable tablet Take 1 tablet by mouth every 6 hours as needed. furosemide (LASIX) 10 mg/mL solution Take by mouth as directed. mecobalamin (B12 ACTIVE ORAL) Take by mouth. omeprazole (PRILOSEC) 20 mg capsule Take 1 capsule by mouth once daily. as directed albuterol HFA (PROVENTIL HFA, VENTOLIN HFA) 90 mcg/actuation inhaler Inhale 1-2 Puffs as instructed every 4 hours as needed (for wheezing and shortness of breath). Lactobacillus acidophilus (PROBIOTIC ORAL) Take by mouth. ACETAMINOPHEN (TYLENOL ORAL) Take 500 mg by mouth as needed. aspirin, enteric coated (ASPIRIN, ENTERIC COATED) 81 mg EC tablet Take 81 mg by mouth once daily. famotidine (PEPCID) 40 mg tablet Take 1 tablet by mouth once daily. tiZANidine (ZANAFLEX) 2 mg tablet Take 1 tablet by mouth every 8 hours as needed. nitrofurantoin monohydrate and macrocrystal (MACROBID) 100 mg capsule Take 1 capsule by mouth two times a day. flash glucose sensor (FREESTYLE ALEX 2 SENSOR) kit 1 Each every 2 weeks. E11.9 DM type 2, Insulin: No verapamil SR (CALAN SR) 120 mg CR tablet Take 120 mg by mouth daily at bedtime. (Patient not taking: Reported on 08/29/2024) sucralfate (CARAFATE) 1 gram tablet Take 1 g by mouth two times a day. (Patient not taking: Reported on 08/29/2024) metoprolol tartrate, short acting, (LOPRESSOR) 25 mg tablet Take 1 tablet by mouth two times a day. (Patient not taking: Reported on 05/23/2024) CPAP Continue settings of Auto PAP to 5-15 cm of water with humidification. Continue orders for: Mask (per patient preference) optional chin strap (if indicated) , filters, tubing, humidifier and lifetime supplies. potassium chloride (K-TAB) 10 mEq tablet Take 1 tablet by mouth once daily as needed (When taking diuretic). DAILY (Patient not taking: Reported on 05/23/2024) blood sugar diagnostic (BLOOD GLUCOSE TEST) test strip Test blood sugar 1 time daily. Dx: Type 2 DM - Controlled E11.9 Insulin: No. Lancets Test blood sugar(s) 2 times daily and as needed. To go with lancet pen with glucometer Dx: Type 2 DM - Controlled E11.9 Insulin: No flash glucose scanning reader (FREESTYLE ALEX 2 READER) Check sugars at least 4 times daily MULTI-VITAMIN ORAL Take by mouth. (Patient not taking: Reported on 07/06/2024) COMPOUNDED PRESCRIPTION Powerstep full length original insert (M12.571) Traumatic arthritis of foot, right (primary encounter diagnosis) (Patient not taking: Reported on 09/30/2023) COMPOUNDE (more content not included)... Normal [facility] UA DIP, URINE (POC)on 2024 BILIRUBIN UA (POCT) Negative Negative [facility] CLARITY UA (POCT) Clear [facility] COLOR UA (POCT) Yellow [facility] GLUCOSE UA (POCT) Negative Negative mg/dL [facility] Hemoglobin Ql (U) Trace-intact Abnormal Negative [facility] Interpretation and review of laboratory results Abnormal [facility] KETONE UA (POCT) Negative Negative mg/dL [facility] LEUKOCYTES UA (POCT) Large [facility]normal [facility] NITRITE UA (POCT) Negative Negative [facility] PH UA (POCT) 6 4.5 - 8.0 [facility] Protein Ql (U) Negative Negative mg/dL [facility] SPECIFIC GRAVITY UA (POCT) 1.02 1.005 - 1.030 [facility] UROBILINOGEN UA (POCT) 0.2 Normal E.U./dL [facility] Location:[address], [address] [place] [address] POINT OF CARE [facility] US THYROID/PARATHYROIDon US THYROID/PARATHYROID * * *Final Report* * * DATE OF EXAM: Jul 13 2024 2:09PM [facility] 1048 - US THYROID/PARATHYROID / PROCEDURE REASON: Thyroid nodule * * * * Physician Interpretation * * * * EXAMINATION: THYROID ULTRASOUND CLINICAL HISTORY: Thyroid nodule . Follow-up thyroid nodule. Remote history of FNA TECHNIQUE: Sonography and Doppler imaging of the thyroid was performed. Images were obtained and stored in a permanent archive. MQ: UST_1 COMPARISON: 05/18/2023 and also thyroid ultrasound from 07/12/2021 RESULT: . Right Lobe: 4.7 cm x 1.9 cm x 2.1 cm Left Lobe: 4.8 cm x 2.0 cm x 2.7 cm Isthmus: 0.3 cm Parenchyma: Mild diffuse parenchymal heterogeneity. Normal vascularity. NODULES: Most suspicious nodules (up to 4) detailed below: Nodule #1 Location: Left lower pole Size: 2.6 x 1.6 x 2.1 cm; previously 3 x 2 x 2.1 cm 07/12/2021 Characteristics: Composition: Solid or almost completely solid, 2 points Echogenicity: Hypoechoic, 2 points Shape: [id number], 0 points Margin: Smooth, 0 points Echogenic foci: Macrocalcifications, 1 point TI-RADS Category: 4 ACR Recommendation: FNA is recommended. - IMPRESSION: Thyroid nodule has not increased in size compared to the exam from 3 years ago. ACR Recommendation: TI-RADS 4 nodule greater than 1.5 cm. FNA is recommended. ACR recommendations are strictly based on the size and imaging appearance at the time of the exam and do not consider stability or previous biopsy results. Splitting Machine Feeder: PSCB Transcribe Date/Time: Jul 15 2024 7:39A Dictated by : ELSY ALVARADO MD This examination was interpreted and the report reviewed and electronically signed by: ELSY ALVARADO MD on Jul 15 2024 7:42AM EST [id number] Normal [facility] 25(OH)D3 SerPl-mCncon 2024 25-hydroxyvitamin D3 [Mass/Vol] 31.6 ng/mL Normal 31.0-80.0 [facility] Comment on above: Order Comment: Speci men Type: BLOOD SPECIMENOrdering Facility: [facility] Address: [address] [place] [address] Result Comment: Clas sification of 25 [place] Vitamin D status: Deficiency/Insufficiency: < or = 30 ng/ml. Sufficiency/Optimal Levels: 31-80 ng/mL Toxicity: > 100 ng/mL. Test performed by chemiluminescent immunoassay. Performed By: #### 1 989-3 ####[facility] LABIA [id number] [place] [address] [place] Basic metabolic 2000 panelon 07-06-2024 Anion gap [Moles/Vol] 11 mmol/L Normal 8-15 [facility] Comment on above: Order Comment: Speci men Type: BLOOD SPECIMENOrdering Facility: [facility] Address: [address] [place] [address] Performed By: #### 2 731-8, 35531-0 ####[facility] LABCLIA [id number] [place] [address] [place] Calcium [Mass/Vol] 10.1 mg/dL Normal 8.5-10.2 [facility] Comment on above: Order Comment: Speci men Type: BLOOD SPECIMENOrdering Facility: [facility] Address: [address] [place], [place] [id number] Performed By: #### 2 731-8, 92270-3 ####[facility] LABCLIA [id number] [facility] [place] [id number] [place] Chloride [Moles/Vol] 106 mmol/L Normal 98-107 [facility] Comment on above: Order Comment: Speci men Type: BLOOD SPECIMENOrdering Facility: [facility] Address: [address] [place] [address] Performed By: #### 2 731-8, 79571-0 ####[facility] LABCLIA [id number] [place] [address] [place] CO2 [Moles/Vol] 26 mmol/L Normal 22-30 [facility] Comment on above: Order Comment: Speci men Type: BLOOD SPECIMENOrdering Facility: [facility] Address: [address] [place] [address] Performed By: #### 2 731-8, 68793-1 ####[facility] LABCLIA [id number] [place] [address] [place] Creatinine [Mass/Vol] 0.60 mg/dL Normal 0.58-0.96 [facility] Comment on above: Order Comment: Speci men Type: BLOOD SPECIMENOrdering Facility: [facility] Address: [address] [place] [address] Performed By: #### 2 731-8, 49224-2 ####[facility] LABCLIA [id number] [place] [id number] [place] Creatinine and Glomerular filtration rate.predicted panel (S/P/Bld) 90 mL/min/1.73m??? Normal >=60 [facility] Comment on above: Order Comment: Speci men Type: BLOOD SPECIMENOrdering Facility: [facility] Address: [address] [place] [address] Result Comment: Loco mated Glomerular Filtration Rate (eGFR) is calculated using the 2020 CKD-EPI creatinine equation. This equation utilizes serum creatinine, sex, and age as parameters. The creatinine assay has traceable calibration to isotope dilution-mass spectrometry. Refer to KDIGO guidelines for clinical interpretation. In patients with unstable renal function, e.g. those with acute kidney injury, the eGFR may not accurately reflect actual GFR. Performed By: #### 2 731-8, 17668-9 ####[facility] LABIA [id number] [place] [id number] [place] Glucose [Mass/Vol] 177 mg/dL High 74-99 [facility] Comment on above: Order Comment: Nohemy inman Type: BLOOD SPECIMENOrdering Facility: [facility] Address: [address] [place] [address] Result Comment: The [place] Diabetes Association (ADA) provides guidance for cutoff values for fasting glucose and random glucose. The ADA defines fasting as no caloric intake for at least 8 hours. Fasting plasma glucose results between 100 to 125 mg/dL indicate increased risk for diabetes (prediabetes). Fasting plasma glucose results greater than or equal to 126 mg/dL meet the criteria for diagnosis of diabetes. In the absence of unequivocal hyperglycemia, results should be confirmed by repeat testing. In a patient with classic symptoms of hyperglycemia or hyperglycemic crisis, random plasma glucose results greater than or equal to 200 mg/dL meet the criteria for diagnosis of diabetes. Reference: Standards of Medical Care in Diabetes 2016, [place] [employer] Association. Diabetes Care. 2016.39(Suppl 1). Performed By: #### 2 731-8, 56695-0 ####[facility] LABIA [id number] [address] [address] [place] Potassium [Moles/Vol] 4.5 mmol/L Normal 3.7-5.1 [facility] Comment on above: Order Comment: Nohemy inman Type: BLOOD SPECIMENOrdering Facility: [facility] Address: [address] [place] [address] Performed By: #### 2 731-8, 25030-0 ####[facility] LABCLIA [id number] [place] [id number] [place] Sodium [Moles/Vol] 143 mmol/L Normal 136-144 [facility] Comment on above: Order Comment: Speci men Type: BLOOD SPECIMENOrdering Facility: [facility] Address: [address] [place] [address] Performed By: #### 2 731-8, 34032-8 ####[facility] LABIA [id number] [place] [id number] [place] Urea nitrogen [Mass/Vol] 18 mg/dL Normal 7-21 [facility] Comment on above: Order Comment: Speci men Type: BLOOD SPECIMENOrdering Facility: [facility] Address: [address] [place] [address] Performed By: #### 2 731-8, 18710-1 ####[facility] LABIA [id number] [place] [id number] [place] CNOVon 07-06-2024 CNOV Office Visit (INTMWS ) ----- WHITNEY RUIZ ([id number]) 1945 F T Date Time Provider Department 07/06/24 3:40 PM KOJO FREDERICK INTMWS During your visit today, we recorded the following information about you: Temperature Pulse Blood pressure Weight 99.6 degrees 64/minute 150/90 82.5 kg Kojo Frederick APRN.CIRCUIT TESTER 07/06/2024 4:26 PM Signed SUBJECTIVE Whitney Ruiz is a 79 year old female here today for acute concern. Chief Complaint Patient presents with: Ear Problem: right with a sore throat x 3 days sinus drainage which is clear slight cough in the morning HPI Whitney Ruiz is a 79 year old female. She is an established patient of Kristy Brower MD. She is here today for concerns of her right ear has been bothering her for about a month. She also has a sore throat. Slight drainage and cough. Also wants to know if labs are ordered to check her parathyroid given high calcium levels. Would like to update thyroid ultrasound. Her medications were reviewed today and her list is now up to date. Medications Current Outpatient Medications Medication Sig verapamil SR (CALAN SR) 120 mg CR tablet Take 120 mg by mouth daily at bedtime. sucralfate (CARAFATE) 1 gram tablet Take 1 g by mouth two times a day. lisinopril (ZESTRIL) 5 mg tablet Take 1 tablet by mouth once daily. (Patient taking differently: Take 10 mg by mouth once daily. Changed per court bailiff at ) azelastine 0.1% nasal spray Use 1 Coleman in each nostril two times a day. fluticasone (FLONASE) 50 mcg/actuation nasal spray Use 1-2 Sprays in each nostril once daily as needed for cold/allergy symptoms. Takes daily as needed famotidine (PEPCID) 40 mg tablet Take 40 mg by mouth once daily. hydrocortisone 2.5 % cream Apply 1 application to affected area three times a day as needed (itchy skin lesion on chest). Apply thin layer as directed torsemide (DEMADEX) 10 mg tablet Take 1 tablet by mouth once daily as needed (edema). Simethicone 125 mg chewable tablet Take 1 tablet by mouth every 6 hours as needed. furosemide (LASIX) 10 mg/mL solution Take by mouth as directed. mecobalamin (B12 ACTIVE ORAL) Take by mouth. omeprazole (PRILOSEC) 20 mg capsule Take 1 capsule by mouth once daily. as directed albuterol HFA (PROVENTIL HFA, VENTOLIN HFA) 90 mcg/actuation inhaler Inhale 1-2 Puffs as instructed every 4 hours as needed (for wheezing and shortness of breath). Lactobacillus acidophilus (PROBIOTIC ORAL) Take by mouth. ACETAMINOPHEN (TYLENOL ORAL) Take 500 mg by mouth as needed. aspirin, enteric coated (ASPIRIN, ENTERIC COATED) 81 mg EC tablet Take 81 mg by mouth once daily. clindamycin (CLEOCIN) 300 mg capsule Take 1 capsule by mouth every 8 hours for 10 days. flash glucose sensor (FREESTYLE ALEX 2 SENSOR) kit 1 Each every 2 weeks. E11.9 DM type 2, Insulin: No metoprolol tartrate, short acting, (LOPRESSOR) 25 mg tablet Take 1 tablet by mouth two times a day. (Patient not taking: Reported on 05/23/2024) CPAP Continue settings of Auto PAP to 5-15 cm of water with humidification. Continue orders for: Mask (per patient preference) optional chin strap (if indicated) , filters, tubing, humidifier and lifetime supplies. potassium chloride (K-TAB) 10 mEq tablet Take 1 tablet by mouth once daily as needed (When taking diuretic). DAILY (Patient not taking: Reported on 05/23/2024) blood sugar diagnostic (BLOOD GLUCOSE TEST) test strip Test blood sugar 1 time daily. Dx: Type 2 DM - Controlled E11.9 Insulin: No. Lancets Test blood sugar(s) 2 times daily and as needed. To go with lancet pen with glucometer Dx: Type 2 DM - Controlled E11.9 Insulin: No flash glucose scanning reader (FREESTYLE ALEX 2 READER) Check sugars at least 4 times daily MULTI-VITAMIN ORAL Take by mouth. (Patient not taking: Reported on 07/06/2024) COMPOUNDED PRESCRIPTION Powerstep full length original insert (M12.571) Traumatic arthritis of foot, right (primary encounter diagnosis) (Patient not taking: Reported on 09/30/2023) COMPOUNDED PRESCRIPTION New CPAP with supplies CPAP pressure 12 cm H2O. 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 ALLERGIES Allergen Reactions Codeine Shortness of Breath Vicodin [Hydrocodon* Intolerance cardiac arrest Adhesive Rash Augmentin [Amoxicil* Shortness of Breath Called and complained that caused SOB Biaxin [Clarithromy* Mental Status Change Cardizem [Diltiazem] Intolerance itching Ciprofloxacin Other: See Comments Muscle pain Clonidine Intolerance low heart rate to 42; BP also dropped; tried patch and was okay for a while but then stopped since affected thinking Coreg [Carvedilol] Intolerance grumpy, runny nose Crestor [Rosuvastat* Intolerance muscle aches all over Cymbalta [Duloxetin* Other: See Comments Elevated BP and blood sugar (more content not included)... [facility] (INTMWS[facility] ----- WHITNEY RUIZ ([id number]) 1945 F CHT Date Time Provider Department 07/06/24 KRISTY BROWER INTMWS During your visit today, we recorded the following information about you: [place], RN 07/06/2024 9:04 AM Signed Pt reports she has been having right ear pain for 1 mth- not bad today, but does get bad at times. Reports she doesn't notice swollen lymph nodes at all but if she pushes up under her ear it's tender. Reports she's had sore throat for 3 days- does not see white patches in back of throat and no swelling. Reports son looked at it and told her he sees something keith in back of her throat and her throat is red. Reports she has been using warm salt water gargles which are helping. Reports she is also having sinus drainage which may be why she has a sore throat. Has been using saline nasal flushes which have helped. Sucks on lozenges frequently. Was not exposed to strep, but her daughter had the flu- patient does not think she has the flu. Scheduled same day appt with Kojo. Pt took latest available because she has to take her son to ER this morning as his legs are numb. Kojo Frederick APRN.CIRCUIT TESTER 07/06/2024 9:49 AM Signed Noted. Allergies As of Date: 07/06/2024 Noted Allergy Reaction CODEINE 04/24/2006 12 - Shortness of Breath VICODIN (HYDROCODONE-ACETAMINOPHE *08/10/2006 5 - Intolerance Comments: cardiac arrest ADHESIVE 03/27/2010 2 - Rash AUGMENTIN (AMOXICILLIN-POT CLAVUL*03/09/2012 12 - Shortness of Breath Comments: Called and complained that caused SOB BIAXIN (CLARITHROMYCIN) 02/16/2013 1 - Mental Status Change CARDIZEM (DILTIAZEM) 03/16/2019 5 - Intolerance Comments: itching CIPROFLOXACIN 08/04/2013 14 - Other: See Comments Comments: Muscle pain CLONIDINE 07/06/2013 5 - Intolerance Comments: low heart rate to 42; BP also dropped; tried patch and was okay for a while but then stopped since affected thinking COREG (CARVEDILOL) 10/04/2019 5 - Intolerance Comments: grumpy, runny nose CRESTOR (ROSUVASTATIN CALCIUM) 09/11/2009 5 - Intolerance Comments: muscle aches all over CYMBALTA (DULOXETINE) 08/14/2014 14 - Other: See Comments Comments: Elevated BP and blood sugar went up DICYCLOMINE 05/19/2013 12 - Shortness of Breath DIOVAN (VALSARTAN) 11/17/2017 7 - Swelling Comments: In feet, legs AND ankles DOXYCYCLINE 03/11/2012 11 - Vomiting Comments: Vomiting after the first dose, intense. FLAGYL (METRONIDAZOLE) 02/16/2013 9 - Itching GUAIFENESIN-SODIUM CITRATE 04/24/2006 5 - Intolerance Comments: jittery LEVOFLOXACIN 08/04/2013 14 - Other: See Comments Comments: Muscle pain LOSARTAN 10/04/2019 14 - Other: See Comments Comments: Made me lose hair. Low back pain, stomach upset LOVASTATIN 09/11/2009 5 - Intolerance Comments: Muscle aches all over MOBIC (MELOXICAM) 10/12/2007 Comments: lips swell MORPHINE 10/06/2011 9 - Itching Comments: possibly was from the IV or tape since was from IV morphine; only affected arm of hand had IV in NIFEDIPINE 03/16/2019 5 - Intolerance Comments: palpitations; also to see if runny nose resolved (did not) NORVASC (AMLODIPINE BESYLATE) 10/20/2017 7 - Swelling SULFA (SULFONAMIDE ANTIBIOTICS) 04/24/2006 2 - Rash ULTRAVIST (IOPROMIDE) 01/18/2010 14 - Other: See Comments Comments: Pt sts with previous cat scan she had delayed chest tightness Date Reviewed: 06/03/2024 Reviewed by: Anastasia Smith, DIRECTOR [employer].CIRCUIT TESTER - Fully Assessed Reason for Visit: Right ear pain, sinus drainage, sore throat [Other] Prescriptions as of 07/06/2024 - flash glucose sensor (FREESTYLE ALEX 2 SENSOR) kit 1 Each every 2 weeks. E11.9 DM type 2, Insulin: No - verapamil SR (CALAN SR) 120 mg CR tablet Take 120 mg by mouth daily at bedtime. - sucralfate (CARAFATE) 1 gram tablet Take 1 g by mouth two times a day. - lisinopril (ZESTRIL) 5 mg tablet Take 1 tablet by mouth once daily. - metoprolol tartrate, short acting, (LOPRESSOR) 25 mg tablet Take 1 tablet by mouth two times a day. - azelastine 0.1% nasal spray Use 1 Coleman in each nostril two times a day. - fluticasone (FLONASE) 50 mcg/actuation nasal spray Use 1-2 Sprays in each nostril once daily as needed for cold/allergy symptoms. Takes daily as needed - CPAP Continue settings of Auto PAP to 5-15 cm of water with humidification. Continue orders for: Mask (per patient preference) optional chin strap (if indicated) , filters, tubing, humidifier and lifetime supplies. - famotidine (PEPCID) 40 mg tablet Take 40 mg by mouth once daily. - potassium chloride (K-TAB) 10 mEq tablet Take 1 tablet by mouth once daily as needed (When taking diuretic). DAILY - hydrocortisone 2.5 % cream Apply 1 application to affected area three times a day as needed (itchy skin lesion on chest). Apply thin layer as directed - torsemide (DEMADEX) 10 mg tablet Take 1 tablet by mouth once daily a (more content not included)... Normal [facility] Parathyrin.intact [Mass/Vol] 37 pg/mL Normal 15-65 [facility] Comment on above: Order Comment: Speci men Type: BLOOD SPECIMENOrdering Facility: [facility] Address: [address] [place] [address] Performed By: #### 2 731-8, 89526-0 ####[facility] LABCLIA [id number] [address] [place] CNOVon 03-07-2025 CNOV Office Visit (INTMWS ) ----- RUIZWHITNEY TOBAR Mina ([id number]) 1945 F T Date Time Provider Department 06/03/24 9:40 AM ANASTASIA SMITH INTMWS During your visit today, we recorded the following information about you: Pulse Respiration Blood pressure Weight 60/minute 14/minute 126/80 81.2 kg Anastasia Smith, DIRECTOR GLO[employer] SALES.[facility] 06/03/2024 10:21 AM Signed CC: Patient presents with: Pain: RT hip x 7 days HPI Whitney Mina HernandezRuiz is a 79 year old female who presents today for above. Injury: denies a recent or remote history of hip injury or trauma. Location: posterior right hip with radiation to the groin and described as sharp/stabbing. Associated symptoms: no back pain, no radiation of hip pain, no numbness or tingling noted of the lower extremity, no rash Grating, clicking, feeling like leg is giving out: No Aggravated by prolonged standing and walking Treated with Tylenol with minimal relief of symptoms. Denies history of malignancy, inability to find a comfortable position, severe pain at night, unexplained weight loss, significant spinal trauma, bowel incontinence, bladder incontinence, saddle anesthesia, gait or balance disturbance, and known osteoporosis PMH: sciatica Review of Systems Gastrointestinal: Negative for abdominal pain, constipation, diarrhea, nausea and vomiting. Genitourinary: Negative for decreased urine volume, difficulty urinating, dysuria and hematuria. PAST MEDICAL HISTORY Diagnosis Date CAD (coronary artery disease) 04/16/2012 70-80% LAD --had stent placed 09/07/14 Depressive disorder, not elsewhere classified Diverticulitis of colon with hemorrhage 2001 DM w/o Complication Type II 04/05/2009 GERD (gastroesophageal reflux disease) Hiatal hernia Hypertension 03/30/1988 IPF (idiopathic pulmonary fibrosis) (HCC) Irritable bowel syndrome Occipital neuralgia Osteoarthritis 06/27/2011 Other chronic sinusitis Other osteoporosis Post-nasal drip Situational depression 12/27/2014 Sleep apnea 03/30/1996 Statin intolerance 12/24/2016 SVT (supraventricular tachycardia) (HCC) 10/02/2018 Thoracic aortic aneurysm (HCC) [address] chest (2014, 2013)--July 09, [address] Unspecified essential hypertension Patient has had since age 33 Vitamin D Deficiency 04/18/2009 PAST SURGICAL HISTORY Procedure Laterality Date CHOLECYSTECTOMY 2002 COLONOSCOPY 06/09/14 diverticulosis COLONOSCOPY FLX DX W/COLLJ SPEC WHEN PFRMD 01/07/2012 hyperplastic polyps EGD 06/09/14 mild gastritis ESOPHAGOGASTRODUODENOSCOP Y TRANSORAL DIAGNOSTIC 03/24/12 EGD PAST SURGICAL HISTORY OF 2000 Patient had to have right wrist bone rebuilt PAST SURGICAL HISTORY OF 09/07/2014 heart stent--mid LAD 2.5X12mm Alpine Xience stent PAST SURGICAL HISTORY OF Excision of lipoma TOTAL ABDOMINAL HYSTERECT W/WO RMVL TUBE OVARY 1999 Patient has both ovaries ALLERGIES Codeine, Vicodin [Hydrocodone-Acetaminophe n], Adhesive, Augmentin [Amoxicillin-Pot Clavulanate], Biaxin [Clarithromycin], Cardizem [Diltiazem], Ciprofloxacin, Clonidine, Coreg [Carvedilol], Crestor [Rosuvastatin Calcium], Cymbalta [Duloxetine], Dicyclomine, Diovan [Valsartan], Doxycycline, Flagyl [Metronidazole], Guaifenesin-Sodium Citrate, Levofloxacin, Losartan, Lovastatin, Mobic [Meloxicam], Morphine, Nifedipine, Norvasc [Amlodipine Besylate], Sulfa (Sulfonamide Antibiotics), and Ultravist [Iopromide] MEDICATIONS flash glucose sensor (FREESTYLE ALEX 2 SENSOR) kit 1 Each every 2 weeks. E11.9 DM type 2, Insulin: No verapamil SR (CALAN SR) 120 mg CR tablet Take 120 mg by mouth daily at bedtime. lisinopril (ZESTRIL) 5 mg tablet Take 1 tablet by mouth once daily. (Patient taking differently: Take 10 mg by mouth once daily. Changed per court bailiff at ) azelastine 0.1% nasal spray Use 1 Coleman in each nostril two times a day. fluticasone (FLONASE) 50 mcg/actuation nasal spray Use 1-2 Sprays in each nostril once daily as needed for cold/allergy symptoms. Takes daily as needed CPAP Continue settings of Auto PAP to 5-15 cm of water with humidification. Continue orders for: Mask (per patient preference) optional chin strap (if indicated) , filters, tubing, humidifier and lifetime supplies. famotidine (PEPCID) 40 mg tablet Take 40 mg by mouth once daily. torsemide (DEMADEX) 10 mg tablet Take 1 tablet by mouth once daily as needed (edema). blood sugar diagnostic (BLOOD GLUCOSE TEST) test strip Test blood sugar 1 time daily. Dx: Type 2 DM - Controlled E11.9 Insulin: No. Lancets Test blood sugar(s) 2 times daily and as needed. To go with lancet pen with glucometer Dx: Type 2 DM - Controlled E11.9 Insulin: No furosemide (LASIX) 10 mg/mL solution Take by mouth as directed. mecobalamin (B12 ACTIVE ORAL) Take by mouth. omeprazole (PRILOSEC) 20 mg capsule Take 1 capsule by mouth once daily. as directed (Patient taking differen (more content not included)... Normal [facility] XR HIP 3V PELV+ AP/LAT RTon 06-03-2024 XR HIP 3V PELV+ AP/LAT RT * * *Final Report* * * DATE OF EXAM: Jun 03 2024 10:16AM WOX [id number] - XR HIP 3V PELV+ AP/LAT RT / PROCEDURE REASON: Right hip pain * * * * Physician Interpretation * * * * EXAMINATION: XR HIP 3V PELV+ AP/LAT RT CLINICAL HISTORY: Right hip pain Technique: XR HIP 3V PELV+ AP/LAT RT -- RIGHT with 3 views on 3 images Comparison: X-ray pelvis and bilateral hips 06/08/2008 RESULT: No acute fracture or dislocation. Bilateral hip joint space narrowing with marginal osteophytes. Degenerative disc disease of the lower lumbar spine. IMPRESSION: No acute fracture. Slight increase in prominence of degenerative disease of bilateral hips. Splitting Machine Feeder: ELEANOR Transcribe Date/Time: Jun 03 2024 10:20A Dictated by : NYDIA PAZ MD This examination was interpreted and the report reviewed and electronically signed by: NYDIA PAZ MD on Jun 03 2024 10:24AM EST [id number] Normal [facility] XR Pelvis and Hip - right AP and Lateral frogon 06-03-2024 IMPRESSION: No acute fracture. Slight increase in prominence of degenerative disease of bilateral hips. Splitting Machine Feeder: ELEANOR Transcribe Date/Time: Jun 03 2024 10:20A Dictated by : NYDIA PAZ MD This examination was interpreted and the report reviewed and electronically signed by: NYDIA PAZ MD on Jun 03 2024 10:24AM EST DIVISION OF RADIOLOGY * * *Final Report* * * DATE OF EXAM: Jun 03 2024 10:16AM WOX [id number] - XR HIP 3V PELV+ AP/LAT RT / PROCEDURE REASON: Right hip pain * * * * Physician Interpretation * * * * EXAMINATION: XR HIP 3V PELV+ AP/LAT RT CLINICAL HISTORY: Right hip pain Technique: XR HIP 3V PELV+ AP/LAT RT -- RIGHT with 3 views on 3 images Comparison: X-ray pelvis and bilateral hips 06/08/2008 RESULT: No acute fracture or dislocation. Bilateral hip joint space narrowing with marginal osteophytes. Degenerative disc disease of the lower lumbar spine. DIVISION OF RADIOLOGY Provider, [facility] - 06/03/2024 * * *Final Report* * * DATE OF EXAM: Jun 03 2024 10:16AM WOX [id number] - XR HIP 3V PELV+ AP/LAT RT / PROCEDURE REASON: Right hip pain * * * * Physician Interpretation * * * * EXAMINATION: XR HIP 3V PELV+ AP/LAT RT CLINICAL HISTORY: Right hip pain Technique: XR HIP 3V PELV+ AP/LAT RT -- RIGHT with 3 views on 3 images Comparison: X-ray pelvis and bilateral hips 06/08/2008 RESULT: No acute fracture or dislocation. Bilateral hip joint space narrowing with marginal osteophytes. Degenerative disc disease of the lower lumbar spine. IMPRESSION IMPRESSION: No acute fracture. Slight increase in prominence of degenerative disease of bilateral hips. Splitting Machine Feeder: ELEANOR Transcribe Date/Time: Jun 03 2024 10:20A Dictated by : NYDIA PAZ MD This examination was interpreted and the report reviewed and electronically signed by: NYDIA PAZ MD on Jun 03 2024 10:24AM EST [facility] Radiology Study observation (narrative) [facility] XR Pelvis and Hip - right AP and Lateral frogOrdered By: [facility] Provider on 06-03-2024 [facility] Gastroenterology Visit Repor ton 05-31-2024 Gastroenterology Visit Report [facility] Gastroenterology [address] [place] [address] OFFICE VISIT Date of Service: 05/31/24 MR#: [id number] Acct: [id number] Name: WHITNEY RUIZ Rep #: [id number] : 1945 Provider: SAMMY garcia Age/Sex: 79/F Location: [facility] [place] Status: Signed Intake Vital Signs 05/19/24 11:22 05/30/24 07:47 05/31/24 09:40 Height 5 ft 5 ft 5 ft BP 155/75 H Respiration 16 Pulse 57 L Pulse Oximetry (%) 94 Oxygen Delivery Method room air Intake Visit Reasons: Test Result Chief Complaint: follow-up 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: No Accompanied by: Son Is patient in pain?: Yes Allergies adhesive Allergy (Intermediate, Verified 05/31/24 09:33) Rash amlodipine Allergy (Intermediate, Verified 05/31/24 09:33) Swelling amoxicillin (From Augmentin) Allergy (Intermediate, Verified 05/31/24 09:33) Shortness of breath carvedilol Allergy (Intermediate, Verified 05/31/24 09:33) Other ciprofloxacin Allergy (Intermediate, Verified 05/31/24 09:33) Other clarithromycin Allergy (Intermediate, Verified 05/31/24 09:33) Other clavulanic acid (From Augmentin) Allergy (Intermediate, Verified 05/31/24 09:33) Shortness of breath clonidine Allergy (Intermediate, Verified 05/31/24 09:33) Other dicyclomine Allergy (Intermediate, Verified 05/31/24 09:33) Shortness of breath diltiazem (From Cardizem) Allergy (Intermediate, Verified 05/31/24 09:33) Itching doxycycline Allergy (Intermediate, Verified 05/31/24 09:33) Vomiting duloxetine (From Cymbalta) Allergy (Intermediate, Verified 05/31/24 09:33) Other guaifenesin Allergy (Intermediate, Verified 05/31/24 09:33) Other levofloxacin Allergy (Intermediate, Verified 05/31/24 09:33) Other losartan Allergy (Intermediate, Verified 05/31/24 09:33) Other metronidazole (From Flagyl) Allergy (Intermediate, Verified 05/31/24 09:33) Itching rosuvastatin (From Crestor) Allergy (Intermediate, Verified 05/31/24 09:33) Other valsartan Allergy (Intermediate, Verified 05/31/24 09:33) Swelling acetaminophen (From Vicodin) Allergy (Verified 05/31/24 09:33) Other codeine Allergy (Verified 05/31/24 09:33) Other hydrocodone bitartrate (From Vicodin) Allergy (Verified 05/31/24 09:33) Other Iodinated Contrast Media Allergy (Verified 05/31/24 09:33) Other meloxicam (From Mobic) Allergy (Verified 05/31/24 09:33) Swelling Sulfa (Sulfonamide Antibiotics) Allergy (Verified 05/31/24 09:33) Rash sulfamethoxazole (From Septra) Allergy (Verified 05/31/24 09:33) Unknown trimethoprim (From Septra) Allergy (Verified 05/31/24 09:33) Unknown Medications ???Medication ???Instructions ???Recorded ???Confirmed ???Type fluticasone propionate 50 2 spray intranasal DAILY PRN nasal 03/15/15 05/31/24 History mcg/actuation nasal congestion spray,suspension albuterol sulfate 90 mcg/actuation 2 puff inhalation Q4H PRN PRN 05/31/24 History aerosol inhaler (Ventolin HFA) Wheezing aspirin 81 mg chewable tablet 81 mg PO DAILY@0800 08/19/1805/31 History ergocalciferol (vitamin D2) 50 mcg 1.25 mg PO MOWEFR 08/19/1805/31 History (2,000 unit) capsule simethicone 125 mg capsule (Gas 125 mg PO QD-BID PRN abdominal 05/31/24 History Relief (simethicone)) distention omeprazole 20 mg capsule,delayed 20 mg PO QDAY gerd 05/02/24 History release lisinopril 20 mg tablet 20 mg PO DAILY 05/17/24 05/31/24 H istory verapamil 120 mg tablet,extended 120 mg PO QHS 05/17/24 05/31/24 Hi story release sucralfate 1 gram tablet (Carafate) 1 g PO BID #60 tabs 05/19/24 Rx Have you fallen in the past year?: No Nurse's Note: Having right side pain that will wake her up at night. PFSH Medical History Wears dentures History of steroid therapy Thyroid disease Walker as ambulation aid Ambulates with cane Bladder disease Anemia Fatty liver High cholesterol Back pain Syncope History of GI bleed CPAP (continuous positive airway pressure) dependence Asthma Leg cramps History of pain when walking Cardiac arrest History of echocardiogram History of stress test Cardiology follow-up encounter Vitamin D deficiency SVT (supraventricular tachycardia) Osteoarthritis Occipital neuralgia Idiopathic pulmonary fibrosis Hiatal hernia GERD (gastroesophageal reflux disease) CAD (coronary artery disease) Diverticulitis Arthritis Hypertension Diabetes Anxiety Surgical History History of cardiac catheterization Hx of right cataract extraction Hx of left cataract extraction History of esophagogastroduodenoscop y (EGD) Hx of colonoscopy Hx of cholecystectomy H/O heart artery stent H/O hand surgery Hi (more content not included)... Normal [facility] 25(OH)D3 [facility] 2024 25-hydroxyvitamin D3 [Mass/Vol] 30.8 ng/mL Low 31.0-80.0 [facility] Comment on above: Order Comment: Speci men Type: BLOOD SPECIMENOrdering Facility: [facility] Address: [address] [place] [address] Performed By: #### 1 989-3 ####[facility] LABCLIA [id number] [place] [address] [place] CBC panel Auto (Bld)on 05-25 Erythrocyte distribution width (RBC) [Ratio] 13.1 % Normal 11.5-15.0 [facility] Comment on above: Order Comment: Speci men Type: BLOOD SPECIMENOrdering Facility: [facility] Address: [address] [place] [address] Performed By: #### 5 8410-2 ####[facility] NAYELYFAHAD [id number] [address] [place] Hematocrit (Bld) [Volume fraction] 39.5 % Normal 36.0-46.0 [facility] Comment on above: Order Comment: Speci men Type: BLOOD SPECIMENOrdering Facility: [facility] Address: [address] [place] [address] Performed By: #### 5 8410-2 ####[facility] VENICENCJOSE [id number] [place] [address] [place] Hemoglobin (Bld) [Mass/Vol] 13.1 g/dL Normal 11.5-15.5 [facility] Comment on above: Order Comment: Speci men Type: BLOOD SPECIMENOrdering Facility: [facility] Address: [address] [place] [address] Performed By: #### 5 8410-2 ####[facility] VENICENCA [id number] [place] [address] [place] MCH (RBC) [Entitic mass] 29.2 pg Normal 26.0-34.0 [facility] Comment on above: Order Comment: Speci men Type: BLOOD SPECIMENOrdering Facility: [facility] Address: [address] [place] [address] Performed By: #### 5 8410-2 ####[facility] VENICENCLIA [id number] [place] [address] [place] MCHC (RBC) [Mass/Vol] 33.2 g/dL Normal 30.5-36.0 [facility] Comment on above: Order Comment: Speci men Type: BLOOD SPECIMENOrdering Facility: [facility] Address: [address] [place] [address] Performed By: #### 5 8410-2 ####[facility] ERKathyNCLIA [id number] [place] [address] [place] MCV (RBC) [Entitic vol] 88.2 fL Normal 80.0-100.0 [facility] Comment on above: Order Comment: Speci men Type: BLOOD SPECIMENOrdering Facility: [facility] Address: [address] [place] [address] Performed By: #### 5 8410-2 ####[facility] CENTERTIFFANIE [id number] [place] [address] [place] Nucleated RBC (Bld) [#/Vol] 10*3/uL Normal <0.01 [facility] Comment on above: Order Comment: Speci men Type: BLOOD SPECIMENOrdering Facility: [facility] Address: [address] [place] [address] Performed By: #### 5 8410-2 ####[facility] [id number] [place] [address] [place] Platelet mean volume (Bld) [Entitic vol] 9.5 fL Normal 9.0-12.7 [facility] Comment on above: Order Comment: Speci men Type: BLOOD SPECIMENOrdering Facility: [facility] Address: [address] [place] [address] Performed By: #### 5 8410-2 ####[facility] [id number] [place] [address] [place] Platelets (Bld) [#/Vol] 342 10*3/uL Normal 150-400 [facility] Comment on above: Order Comment: Speci men Type: BLOOD SPECIMENOrdering Facility: [facility] Address: [address] [place] [address] Performed By: #### 5 8410-2 ####[facility] [id number] [place] [address] [place] RBC (Bld) [#/Vol] 4.48 10*6/uL Normal 3.90-5.20 [facility] Comment on above: Order Comment: Speci men Type: BLOOD SPECIMENOrdering Facility: [facility] Address: [address] [place] [address] Performed By: #### 5 8410-2 ####[facility] VENICEKARSON [id number] [place] [address] [place] WBC (Bld) [#/Vol] 6.79 10*3/uL Normal 3.70-11.00 [facility] Comment on above: Order Comment: Speci men Type: BLOOD SPECIMENOrdering Facility: [facility] Address: [address] [place] [address] Performed By: #### 5 8410-2 ####[facility] VENICEJames [id number] [place] [address] [place] Comprehensive metabolic 2000 panelon 05-25-2024 Albumin [Mass/Vol] 4.1 g/dL Normal 3.9-4.9 [facility] Comment on above: Order Comment: Speci men Type: BLOOD SPECIMENOrdering Facility: [facility] Address: [address] [place] [address] Performed By: #### 2 4323-8, 74689-9 ####[facility] VENICEJames [id number] [place] [address] [place]#### 2132-9 ####[facility] LABORATORYCLIA [id number] [place] [address] [place] ALP [Catalytic activity/Vol] 73 U/L Normal 34-123 [facility] Comment on above: Order Comment: Speci men Type: BLOOD SPECIMENOrdering Facility: [facility] Address: [address] [place] [address] Performed By: #### 2 4323, ####[facility] NIR MILLTOWNCLIA [id number] [place] [address] [place]#### 2132-9 ####[facility]ORATORYCLIA [id number] [place] [address] [place] ALT [Catalytic activity/Vol] 6 U/L Low 7-38 [facility] Comment on above: Order Comment: Speci men Type: BLOOD SPECIMENOrdering Facility: [facility] Address: [address] [place] [address] Performed By: #### 2 4322-10, ####[facility] MILLTOWNCLIA [id number] [place] [address] [place]#### 2132-9 ####[facility]ORATORYCLIA [id number] [place] [address] [place] Anion gap [Moles/Vol] 12 mmol/L Normal 8-15 [facility] Comment on above: Order Comment: Speci men Type: BLOOD SPECIMENOrdering Facility: [facility] Address: [address] [place] [address] Performed By: #### 2 4322-10, ####[facility] MILLTOWNCLIA [id number] [address] OF [place]#### 2132-9 ####[facility]ORATORYCLIA [id number] [place] [address] [place] AST [Catalytic activity/Vol] 11 U/L Low 13-35 [facility] Comment on above: Order Comment: Speci men Type: BLOOD SPECIMENOrdering Facility: [facility] Address: [address] [place] [address] Performed By: #### 2 8, ####[facility] MILLTOWNCLIA [id number] [address] [place]#### 2132-9 ####[facility]ORATORYCLIA [id number] [place] [address] [place] Bilirubin [Mass/Vol] 0.4 mg/dL Normal 0.2-1.3 [facility] Comment on above: Order Comment: Speci men Type: BLOOD SPECIMENOrdering Facility: [facility] Address: [address] [place] [address] Performed By: #### 2 4322-8, ####[facility] MILLTOWNCLIA [id number] [place] [address] [place]#### 2132-9 ####[facility]ORATORYCLIA [id number] [place] [address] [place] Calcium [Mass/Vol] 10.3 mg/dL High 8.5-10.2 [facility] Comment on above: Order Comment: Speci men Type: BLOOD SPECIMENOrdering Facility: [facility] Address: [address] [place] [address] Performed By: #### 2 4322-10, ####[facility] MILLTOWNCLIA [id number] [place] [address] [place]#### 2131-9 ####[facility]ORATORYCLIA [id number] [place] [address] [place] Chloride [Moles/Vol] 103 mmol/L Normal 98-107 [facility] Comment on above: Order Comment: Speci men Type: BLOOD SPECIMENOrdering Facility: [facility] Address: [address] [place] [id number] Performed By: #### 2 4322-8, ####[facility] MILLTOWNCLIA [id number] [place] [address] [place]#### 2132-9 ####[facility]ORATORYCLIA [id number] [address] CO2 [Moles/Vol] 26 mmol/L Normal 22-30 [facility] Comment on above: Order Comment: Nohemy inman Type: BLOOD SPECIMENOrdering Facility: [facility] Address: [address] [place] [address] Performed By: #### 2 4323-8, 35715-1 ####[facility] [id number] [address]#### 2132-9 ####[facility] LABORATORYCLIA [id number] [address] STATES [facility] Creatinine [Mass/Vol] 0.63 mg/dL Normal 0.58-0.96 [facility] Comment on above: Order Comment: Nohemy inman Type: BLOOD SPECIMENOrdering Facility: [facility] Address: [address] [place] [address] Performed By: #### 2 4323-8, 85866-8 ####[facility] [id number] [address] [place]#### 2132-9 ####[facility] LABORATORYCLIA [id number] [address] STATES [facility] Creatinine and Glomerular filtration rate.predicted panel (S/P/Bld) 89 mL/min/1.73m??? Normal >=60 [facility] Comment on above: Order Comment: Nohemy inman Type: BLOOD SPECIMENOrdering Facility: [facility] Address: [address] [place] [address] Result Comment: Loco mated Glomerular Filtration Rate (eGFR) is calculated using the 2020 CKD-EPI creatinine equation. This equation utilizes serum creatinine, sex, and age as parameters. The creatinine assay has traceable calibration to isotope dilution-mass spectrometry. Refer to KDIGO guidelines for clinical interpretation. In patients with unstable renal function, e.g. those with acute kidney injury, the eGFR may not accurately reflect actual GFR. Performed By: #### 2 4323-8, ####[facility] ERWGALIA [id number] [place] [address] [place]#### 2132-9 ####[facility] LABORATORYCLIA [id number] [place] [id number] [place] Glucose [Mass/Vol] 123 mg/dL High 74-99 [facility] Comment on above: Order Comment: Speci men Type: BLOOD SPECIMENOrdering Facility: [facility] Address: [address] [place] [address] Result Comment: The [place] Diabetes Association (ADA) provides guidance for cutoff values for fasting glucose and random glucose. The ADA defines fasting as no caloric intake for at least 8 hours. Fasting plasma glucose results between 100 to 125 mg/dL indicate increased risk for diabetes (prediabetes). Fasting plasma glucose results greater than or equal to 126 mg/dL meet the criteria for diagnosis of diabetes. In the absence of unequivocal hyperglycemia, results should be confirmed by repeat testing. In a patient with classic symptoms of hyperglycemia or hyperglycemic crisis, random plasma glucose results greater than or equal to 200 mg/dL meet the criteria for diagnosis of diabetes. Reference: Standards of Medical Care in Diabetes 2016, [place] [employer] Association. Diabetes Care. 2016.39(Suppl 1). Performed By: #### 2 4322-10, ####[facility] CENTERLIA [id number] [place] [address] [place]#### 2132-9 ####[facility] LABORATORYCLIA [id number] [place] [id number] [place] Potassium [Moles/Vol] 4.4 mmol/L Normal 3.7-5.1 [facility] Comment on above: Order Comment: Speci men Type: BLOOD SPECIMENOrdering Facility: [facility] Address: [address] [place] [address] Performed By: #### 2 432-8, ####[facility] CENTERLIA [id number] [place] [id number] [place]#### 2132-9 ####[facility] LABORATORYCLIA [id number] [place] [address] [place] Protein [Mass/Vol] 6.9 g/dL Normal 6.3-8.0 [facility] Comment on above: Order Comment: Speci men Type: BLOOD SPECIMENOrdering Facility: [facility] Address: [facility] [place] [place] [address] Performed By: #### 2 4322-8, ####[facility] MILLTOWNCLIA [id number] [place] [address] [place]#### 2132-9 ####[facility] LABORATORYCLIA [id number] [place] [address] [place] Sodium [Moles/Vol] 141 mmol/L Normal 136-144 [facility] Comment on above: Order Comment: Speci men Type: BLOOD SPECIMENOrdering Facility: [facility] Address: [address] [place] [address] Performed By: #### 2 8, ####[facility] MILLTOWNCLIA [id number] [place] [address] [place]#### 2131-9 ####[facility] LABORATORYCLIA [id number] [place] [address] [place] Urea nitrogen [Mass/Vol] 13 mg/dL Normal 7-21 [facility] Comment on above: Order Comment: Speci men Type: BLOOD SPECIMENOrdering Facility: [facility] Address: [address] [place] [address] Performed By: #### 2 3-8, ####[facility] NIR MILLTOWNCLIA [id number] [place] [address] [place]#### 2131-9 ####[facility]ORATORYCLIA [id number] [place] [address] [place] HbA1c (Bld)on 05-25-2024 Average glucose Estimated from glycated hemoglobin (Bld) [Mass/Vol] 143 mg/dL Normal [facility] Comment on above: Order Comment: Nohemy inman Type: BLOOD SPECIMENOrdering Facility: [facility] Address: [address] [place] [address] Result Comment: eAG: (Estimated average glucose) is a calculated value from HgbA1c and is benefits representative of the average blood glucose level in the last 2-3 month period. Performed By: #### 5 5454-3 ####[facility] LABCLIA [id number] [place] [address] [place] HbA1c (Bld) [Mass fraction] 6.6 % High 4.3-5.6 [facility] Comment on above: Order Comment: Nohemy inman Type: BLOOD SPECIMENOrdering Facility: [facility] Address: [address] [place] [address] Result Comment: Amer [place] Diabetes Association guidelines indicate that patients with HgbA1c in the range 5.7-6.4% are at increased risk for development of diabetes, and intervention by lifestyle modification may be beneficial. HgbA1c greater or equal to 6.5% is considered diagnostic of diabetes. Performed By: #### 5 5454-3 ####[facility] LABCLIA [id number] [place] [address] [place] Magnesium SerPl-mCncon 05-25 Magnesium [Mass/Vol] 2.0 mg/dL Normal 1.7-2.3 [facility] Comment on above: Order Comment: Nohemy inman Type: BLOOD SPECIMENOrdering Facility: [facility] Address: [address] [place] [address] Performed By: #### 2 4323-8, 54201-4 ####[facility] [id number] [place] [id number] [place]#### 2132-9 ####[facility] LABORATORYCLIA [id number] [place] [address] [place] Vit B12 SerPl-mCncon 025 Cobalamin (Vitamin B12) [Mass/Vol] 481 pg/mL Normal 232-1245 [facility] Comment on above: Order Comment: Speci men Type: BLOOD SPECIMENOrdering Facility: [facility] Address: [facility] [place] [address] Performed By: #### 2 4323-8, 52470-1 ####[facility] [id number] [place] [address] [place]#### 2132-9 ####[facility] LABORATORYCLIA [id number] [place] [id number] [facility] CNOVon 05-23-2024 CNOV Office Visit (INTMWS ) ----- WHITNEY RUIZ ([id number]) 1945 F CHT Date Time Provider Department 05/23/24 4:20 PM KRISTY BROWER INTMWS During your visit today, we recorded the following information about you: Pulse Blood pressure Weight 57/minute 120/84 81.4 kg Kristy Brower MD 05/23/2024 5:31 PM Signed This note was created using NoteWriter. Subjective Whitney Ruiz is a 79 year old female. Patient presents with: F/U 3 Month: discuss path report of EGD done on 05/19/24 would like labs to check vitamin levels. States has not been taking potassium since starting verapamil Back Pain: mid back question if from Carafate Having also low back pain that radiates down into both legs derm issues: has noticed visible vein in bilateral feet that she had not noticed before. Ear Problem: right ear ache denies any trouble hearing out of ear SUBJECTIVE: Whitney Ruiz is a 79 year old year old lady here today for 3 month follow up appointment for review of medical conditions. Whitney Ruiz is an 79-year-old female with a history of esophagitis, duodenitis, and HTN, presenting for a 3-month follow-up. Whitney reports ongoing issues with esophagitis and duodenitis, for which she is currently under the care of Dr. Nicole. She is taking sucralfate 1 g PO BID at 0600 and 1800, Pepcid 40 mg PO at bedtime, and omeprazole 20 mg PO in the morning. She notes that sucralfate initially alleviated her epigastric pain, but she subsequently developed cephalalgia. She also reports experiencing nausea upon waking, which resolves after eating breakfast. She is awaiting biopsy results and does not have a follow-up appointment scheduled with Dr. Nicole at this time. Whitney also reports worsening back pain, localized to the thoracic spine at the level of her bra strap, which she describes as severe. She has been using Aspercreme and a massage gun for relief, with minimal improvement. She recently acquired an adjustable bed and has been sleeping with the head elevated, which she suspects may be exacerbating her lower back pain. She also reports bilateral sciatica, with pain radiating down her legs. She has not been taking any analgesics but inquires about the use of acetaminophen. Additionally, Whitney reports constipation, with no bowel movement since . She was previously taking Miralax, which was effective, but discontinued it after her recent colonoscopy. She also notes the recent appearance of superficial varicose veins on her ankles over the past 1-2 months, which she attributes to prolonged sitting while doing puzzles. She denies any significant swelling. She reports feeling fatigued and requests a check of her vitamin levels. She is currently taking lisinopril 10 mg PO QD between 0800 and 0900, and verapamil 240 mg PO at bedtime. She drinks 6-8 cups of water daily and avoids soda. She has been referred to a black oxide operator at [facility] and has an appointment scheduled for August. PAST MEDICAL HISTORY Diagnosis Date CAD (coronary artery disease) 04/16/2012 70-80% LAD --had stent placed 09/07/14 Depressive disorder, not elsewhere classified Diverticulitis of colon with hemorrhage 2001 DM w/o Complication Type II 04/05/2009 GERD (gastroesophageal reflux disease) Hiatal hernia Hypertension 03/30/1988 IPF (idiopathic pulmonary fibrosis) (HCC) Irritable bowel syndrome Occipital neuralgia Osteoarthritis 06/27/2011 Other chronic sinusitis Other osteoporosis Post-nasal drip Situational depression 12/27/2014 Sleep apnea 03/30/1996 Statin intolerance 12/24/2016 SVT (supraventricular tachycardia) (HCC) 10/02/2018 Thoracic aortic aneurysm (HCC) [address] chest (2014, 2013)--July 09, [address] Unspecified essential hypertension Patient has had since age 33 Vitamin D Deficiency 04/18/2009 Current Outpatient Medications Medication Sig verapamil SR (CALAN SR) 120 mg CR tablet Take 120 mg by mouth daily at bedtime. sucralfate (CARAFATE) 1 gram tablet Take 1 g by mouth two times a day. lisinopril (ZESTRIL) 5 mg tablet Take 1 tablet by mouth once daily. fluticasone (FLONASE) 50 mcg/actuation nasal spray Use 1-2 Sprays in each nostril once daily as needed for cold/allergy symptoms. Takes daily as needed famotidine (PEPCID) 40 mg tablet Take 40 mg by mouth once daily. hydrocortisone 2.5 % cream Apply 1 application to affected area three times a day as needed (itchy skin lesion on chest). Apply thin layer as directed torsemide (DEMADEX) 10 mg tablet Take 1 tablet by mouth once daily as needed (edema). Simethicone 125 mg chewable tablet Take 1 tablet by mouth every 6 hours as needed. mecobalamin (B12 ACTIVE ORAL) Take by mouth. omeprazole (PRILOSEC) 20 mg capsule Take 1 capsule by mouth once daily. as directed albuterol HFA (PROVENTIL HFA, VENTOLIN HFA) 90 m (more content not included)... Normal [facility] Colonoscopy Reporton 025 Colonoscopy Report [facility] Medical Records Department [address] [place] [address] Colonoscopy Report MR#: [id number] Acct: [id number] Name: LUCAWHITNEY P Rep #: [id number] : 1945 79 From: Rigoberto Friend DO PCP: Dr. Kristy Brower MD Status:[facility] Patient Name: Whitney Ruiz Procedure Date: 05/19/2024 12:27 PM Date of : 1945 Age: 79 Procedure: Colonoscopy Indications: Epigastric abdominal pain, Abdominal pain in the left lower quadrant, Abdominal pain in the right lower quadrant Providers: Rigoberto Nicole DO Referring MD: Kristy Brower Medicines: Monitored Anesthesia Care Patient Profile: This is an 79 year old female. Refer to note in patient chart for documentation of history and physical. Patient has symptoms of acute epigastric abdominal pain. Last Colonoscopy: several years ago. Complications: No immediate complications. Procedure: Pre-Anesthesia Assessment: - Prior to the procedure, a History and Physical was performed, and patient medications and allergies were reviewed. The patient is competent. The risks and benefits of the procedure and the sedation options and risks were discussed with the patient. All questions were answered and informed consent was obtained. Patient identification and proposed procedure were verified by the physician in the pre-procedure area. Mental Status Examination: alert and oriented. Airway Examination: normal oropharyngeal airway and neck mobility. Respiratory Examination: clear to auscultation. CV Examination: normal. Prophylactic Antibiotics: The patient does not require prophylactic antibiotics. Prior Anticoagulants: The patient has taken no anticoagulant or antiplatelet agents except for NSAID medication. ASA Grade Assessment: II - A patient with mild systemic disease. After reviewing the risks and benefits, the patient was deemed in satisfactory condition to undergo the procedure. The anesthesia plan was to use monitored anesthesia care (MAC). Immediately prior to administration of medications, the patient was re-assessed for adequacy to receive sedatives. The heart rate, respiratory rate, oxygen saturations, blood pressure, adequacy of pulmonary ventilation, and response to care were monitored throughout the procedure. The physical status of the patient was re-assessed after the procedure. After I obtained informed consent, the scope was passed under direct vision. Throughout the procedure, the patient's blood pressure, pulse, and oxygen saturations were monitored continuously. The pediatric colonoscope was introduced through the anus and advanced to the cecum, identified by appendiceal orifice and ileocecal valve. The colonoscopy was performed without difficulty. The patient tolerated the procedure well. The quality of the bowel preparation was adequate. The ileocecal valve, appendiceal orifice, and rectum were photographed. Scope In: 12:29:15 PM Scope Withdrawal Time 0 hours 8 minutes 27 seconds Scope Out: 12:44:40 PM Total Procedure Duration Time 0 hours 15 minutes 25 seconds Findings: The perianal and digital rectal examinations were normal. Multiple small and large-mouthed diverticula were found in the entire colon. Impression: - Diverticulosis in the entire examined colon. - No specimens collected. Recommendation: - Discharge patient to home. - Resume previous diet. - Continue present medications. - Await pathology results. - No repeat colonoscopy due to age. Procedure Code(s): --- Professional --- 93722, Colonoscopy, flexible; diagnostic, including collection of specimen(s) by brushing or washing, when performed (separate procedure) CPT copyright 2021 [place] [employer]. All rights reserved. The codes documented in this report are preliminary and upon quality assurance qa lab technician review may be revised to meet current compliance requirements. Rigoberto Nicole DO 05/19/2024 1:00:57 PM This report has been signed electronically. Number of Addenda: 0 Note Initiated On: 05/19/2024 12:27 PM 05/19/24 1301 Date Rigoberto Nicole DO Cosigner Signature: Date (if indicated) CC: Dr. Kristy Brower MD; Rigoberto Nicole DO Date Dictated: 05/19/24 1227 Date Transcribed: Splitting Machine Feeder: AILYN Signed Normal [facility] EGD Reporton 05-19-2024 EGD Report [facility] Medical Records Department [address] [place] [address] EGD Report MR#: [id number] Acct: [id number] Name: WHITNEY RUIZ Rep #: [id number] : 1945 79 From: Rigoberto Nicole DO PCP: Dr. Kristy Brower MD Status:[facility] Patient Name: Whitney Ruiz Procedure Date: 05/19/2024 12:10 PM Date of : 1945 Age: 79 Procedure: Upper GI endoscopy Indications: Epigastric abdominal pain Providers: Rigoberto Nicole DO Referring MD: Kristy Brower Medicines: Monitored Anesthesia Care Patient Profile: This is an 79 year old female. Refer to note in patient chart for documentation of history and physical. Patient has symptoms of acute epigastric abdominal pain. Complications: No immediate complications. Procedure: Pre-Anesthesia Assessment: - Prior to the procedure, a History and Physical was performed, and patient medications and allergies were reviewed. The patient is competent. The risks and benefits of the procedure and the sedation options and risks were discussed with the patient. All questions were answered and informed consent was obtained. Patient identification and proposed procedure were verified by the physician in the pre-procedure area. Mental Status Examination: alert and oriented. Airway Examination: normal oropharyngeal airway and neck mobility. Respiratory Examination: clear to auscultation. CV Examination: normal. Prophylactic Antibiotics: The patient does not require prophylactic antibiotics. Prior Anticoagulants: The patient has taken no anticoagulant or antiplatelet agents except for NSAID medication. ASA Grade Assessment: II - A patient with mild systemic disease. After reviewing the risks and benefits, the patient was deemed in satisfactory condition to undergo the procedure. The anesthesia plan was to use monitored anesthesia care (MAC). Immediately prior to administration of medications, the patient was re-assessed for adequacy to receive sedatives. The heart rate, respiratory rate, oxygen saturations, blood pressure, adequacy of pulmonary ventilation, and response to care were monitored throughout the procedure. The physical status of the patient was re-assessed after the procedure. After obtaining informed consent, the endoscope was passed under direct vision. Throughout the procedure, the patient's blood pressure, pulse, and oxygen saturations were monitored continuously. The pediatric colonoscope was introduced through the mouth, and advanced to the second part of duodenum. The upper GI endoscopy was accomplished with ease. The patient tolerated the procedure well. Scope In: 12:21:37 PM Scope Out: 12:26:51 PM Total Procedure Duration Time 0 hours 5 minutes 14 seconds Findings: LA Grade A (one or more mucosal breaks less than 5 mm, not extending between tops of 2 mucosal folds) esophagitis with no bleeding was found 37 to 40 cm from the incisors. Biopsies were taken with a cold forceps for histology. Verification of patient identification for the specimen was done. Estimated blood loss was minimal. A benign-appearing, intrinsic severe stenosis was found at the pylorus. This was traversed. Many non-bleeding linear duodenal ulcers with no stigmata of bleeding were found in the duodenal bulb, in the first portion of the duodenum, in the second portion of the duodenum and in the third portion of the duodenum. The largest lesion was 5 mm in largest dimension. Impression: - LA Grade A reflux esophagitis with no bleeding. Biopsied. - Gastric stenosis was found at the pylorus. - Non-bleeding duodenal ulcers with no stigmata of bleeding. Recommendation: - Discharge patient to home. - Continue present medications. Procedure Code(s): --- Professional --- 43668, Esophagogastroduodenoscop y, flexible, transoral; with biopsy, single or multiple CPT copyright 2021 [employer]. All rights reserved. The codes documented in this report are preliminary and upon quality assurance qa lab technician review may be revised to meet current compliance requirements. Rigoberto Nicole DO 05/19/2024 12:57:19 PM This report has been signed electronically. Number of Addenda: 0 Note Initiated On: 05/19/2024 12:10 PM 05/19/24 1257 Date Rigoberto Nicole DO Cosign Signature: Date (if indicated) CC: Dr. Kristy Brower MD; Rigoberto Nicole DO Date Dictated: 05/19/24 1210 Date Transcribed: Splitting Machine Feeder: AILYN Signed [facility] MR/POSTOP.Shari 05-19-2024 MR/POSTOP.[facility] Medical Records Department [address] [place] [address] Anesthesia Postop Eval I 05/19/24 1302 MR#: [id number] Acct: [id number] Name: WHITNEY RUIZ P Rep #: [id number] : 1945 79 From: Giuliano Mckenzie PCP: Dr. Kristy Brower MD Status:[facility] Y Race: C Location: [place] [address] Anesthesia: Postop Eval I Current Vital Signs Temperature: 97 F Pulse Rate: 68 Blood Pressure: 112/48 Respiratory Rate: 16 Pulse Ox: 98 Oxygen Delivery Method: Room Air Assessment Airway patent: Yes Spontaneous unlabored respirations: Yes Mental status: Awake and Calm nausea: No Vomiting: No Anesthesia Complication: No Fluid Hydration Crystalloid volume administer (ml): 60 Total IV fluid infused: 60 Progress Note Anesthesia document: Postop Eval 1 completed: Yes 05/19/24 130 Date Giuliano Finn Signature: Date CC: Signed Normal [facility] MR/[id number] 05-19-2024 [facility] Medical Records Department [address] [place] [address] Anesthesia Postop Eval II 05/19/24 1611 MR#: [id number] Acct: [id number] Name: WHITNEY RUIZ P Rep #: [id number] : 1945 79 From: Carroll Palomares MD PCP: Dr. Kristy Brower MD Status:[facility] Y Race: C Location: [place] Anesthesia Postop Eval I Sum Postop Eval Completion status Anesthesia document: Postop Eval 1 completed: Yes Anesthesia Postop Eval I Summary Anesthesia Postop Eval I Summary: Anesthesia Postop Eval I: Assessment Summary Airway patent Yes 05/19/24 13:03 [email or web address] Spontaneous unlabored Yes 05/19/24 13:03 [email or web address] respirations Mental status Awake,Calm 05/19/24 13:03 [email or web address] nausea No 05/19/24 13:03 [email or web address] Vomiting No 05/19/24 13:03 [email or web address] Anesthesia Postop Eval I: Fluid Summary Crystalloid volume administer 60 05/19/24 13:03 [email or web address] (ml) Colloids volume administered ( ml) Blood Product volume administered (ml) Total IV fluid infused 60 05/19/24 13:03 [email or web address] Anesthesia Postop Eval I: Summary Notes Anesthesia Complication No 05/19/24 13:03 [email or web address] Anesthesia Complication Comment: Post-operative progress note Anesthesia: Postop Eval II Evaluation Mental status: Awake and Calm Pain Level: 1 nausea: No Vomiting: No Complications Anesthesia Complication: No 05/19/24 1611 Date Carroll Finn Signature: Date CC: Signed Normal [facility] Special Stain Group Ion 02-2 Special Stain Group I ------- Patient Age/Sex Location Account Attending Physician WHITNEY RUIZ 79/F EN [id number] Rigoberto Nicole DO Specimen: [id number] Received: 05/19/24 Status: GÓMEZ Rivera Num: [id number] Spec Type: COLON BX Subm Dr: Rigoberto Nicole DO HEADER OPERATION: Colonoscopy, EGD with biopsy PRE-OP DIAGNOSIS: Epigastric pain, right lower quadrant abdominal pain, diverticulitis, GERD TISSUE SUBMITTED: A- Duodenum biopsy, B- Distal esophagus biopsy MICROSCOPIC DIAGNOSIS A. Duodenum, biopsy: Fragments of duodenal mucosa with chronic inflammation, congestion and hemorrhage. B. Distal esophagus, biopsy: A fragment of gastric mucosa with acute and chronic inflammation. Intestinal metaplasia (goblet cell metaplasia) not identified. See comment. SJ.mr 05/20/2024 COMMENT B. Alcian blue/PAS stain with matched control is used in the evaluation of the specimen. MICROSCOPIC DESCRIPTION Slides are reviewed. GROSS DESCRIPTION A. Received in fixative is one container labeled with the patient's name and designated Duodenum biopsy. The specimen consists of two irregular fragments of light alvarado soft tissue that in aggregate measure 0.8 x 0.4 x 0.1 cm. The specimen is totally submitted in one cassette. B. Received in fixative is one container labeled with the patient's name and designated Distal esophagus biopsy. The specimen consists of one irregular fragment of light alvarado soft tissue that measures 0.4 x 0.3 x 0.1 cm. The specimen is totally submitted in one cassette. mr 05/19/2024 TC:3 CPT:66626v9,29171 Patient Age/Sex Location Account Attending Physician WHITNEY RUIZ 79/F EN [id number] Rigoberto Nicole DO ADDENDUM Addendum 1 Entered: 06/01/24-8197 B. The IHC stain for H.pylori is negative. Matched control tissue stained appropriately. 06/01/2024 Addendum Signed (signature on file) Dr. Melanie Sewell MD 06/01/24 1401 Patient Age/Sex Location Account Attending Physician WHITNEY RUIZ 79/F EN [id number] Rigoberto Nicole DO Signed (signature on file) Dr. Baldev Marques MD 05/20/24 1142 Normal [facility] Comment on above: Performed By: #### P SSI #### [facility] Laboratory [address] [place], [address] MR/PAT.ANEon 05-18-2024 MR/PAT.ДМИТРИЙ [facility] Medical Records Department [address] [place] [address] PAT - Anesthesia 05/18/24 1551 MR#: [id number] Acct: [id number] Name: WHITNEY RUIZ Rep #: [id number] : 1945 79 From: Toño Escobar MD PCP: Dr. Kristy Brower MD Status:PRE [facility] Y Race: C Location: EN Pre-Assessment Diagnosis/Proposed Procedure Planned Operative Procedure(s): EGD/CSCOPE Anesthesia History Anesthesia History - sewer connector: Anesthesia History - sewer connector Hx Hospitalization Yes: 02/2024 DIVERTICULITIS/ 05/17/24 12:42 SYNCOPE/PNEUMONIA Any Problems With Anesthesia No 05/17/24 12:42 Cholinesterase deficiency No 05/17/24 12:42 You/Your Family Experience No 05/17/24 12:42 fever (hyperthermia) with Relationship Recent Exposure to Contagious Disease Does patient have nerve No 05/17/24 12:42 stimulator Patient instructed to have device shut off --Does patient have Pacemaker or ICD? When Was Last Pacemaker Check QUESTION #4 FULL TEXT: You/Your Family Experience fever (hyperthermia) with Anesthesia Last Oral Intake Last Oral intake: Last Oral Intake NPO since Meds taken in AM with sips of water? Meds patient instructed to take am of surgery PONV PONV - sewer connector: PONV - sewer connector Female Yes 05/17/24 12:42 HX of Motion Sickness No 05/17/24 12:42 HX of N/V After Surgery No 05/17/24 12:42 Non-Smoker Yes 05/17/24 12:42 Duration of Surgery greater No 05/17/24 12:42 than 60 minutes Number of Risk Factors 2 05/17/24 12:42 PONV Score Moderate Risk 05/17/24 12:42 Height Weight Height Weight: Anesthesia: Height Weight Height 5 ft 2 in 05/02/24 13:28 Respiratory Assessment Respiratory Assessment - sewer connector: Respiratory Tract Infection Hx - sewer connector Hx Respiratory Tract Infection No 05/17/24 12:42 STOP Sleep Apnea STOP Sleep Apnea - sewer connector: STOP Sleep Apnea - sewer connector Hx Hypertension Yes: CONTROLLED WITH MEDS 05/17/24 12:42 Hx Sleep Apnea Yes 05/17/24 12:42 CPAP Yes 05/17/24 12:42 BIPAP No 05/17/24 12:42 Do you snore loudly (louder than talking or can be heard Do you often feel tired/ fatigued/ sleepy during daytime? Has anyone observed you stop breathing during sleep? STOP Results Positive 05/17/24 12:42 QUESTION #5 FULL TEXT : Do you snore loudly (louder than talking or can be heard through closed doors)? Tobacco Use History Tobacco Use History - sewer connector: Tobacco Use History - sewer connector Tobacco Use Smoking Status Former smoker 05/17/24 12:42 Hx Tobacco Use No 05/17/24 12:42 Years Smoking Packs Smoked per Day Smoking Cessation Date was No - quit smoking greater 05/17/24 12:42 within the last 15 years than 15 years ago Hx Smoking Cessation Date Hx Smoking Cessation No 05/17/24 12:42 Counseling Hematologic Medial History Hematologic Hx - sewer connector: Hematologic Medical Hx - diabetologist Hx of Blood Transfusion No 05/17/24 12:42 Hx of Transfusion in last 3 No 05/17/24 12:42 Months Date of Last Transfusion (if within last 3 months) Ever experience any problems No 05/17/24 12:42 with transfusion(s)? Specify any problems Hx of Preganancy in last 3 No 05/17/24 12:42 Months Nurse Filling Out Transfusion DSCHRIBER 05/17/24 12:42 Questions: Date: 05/17/24 05/17/24 12:42 Time: 12:44 05/17/24 12:42 Patient unable to answer at this time (ie. confused, unrespo /Reproduction History /Reproductive History - sewer connector: /Reproductive Hx- sewer connector Hx Now No 05/17/24 12:42 Gestational Age (in weeks): EDC: Hx Hx Para Hx Section SAB No 05/17/24 12:42 PFSH Medical History (Updated 05/17/24 @ 12:56 by Sylvie Serna) Wears dentures History of steroid therapy Thyroid disease Walker as ambulation aid Ambulates with cane Bladder disease Anemia Fatty liver High cholesterol Back pain Syncope History of GI bleed CPAP (continuous positive airway pressure) dependence Asthma Leg cramps History of pain when walking Cardiac arrest History of echocardiogram History of stress test Cardiology follow-up encounter Vitamin D deficiency SVT (supraventricular tachycardia) Osteoarthritis Occipital neuralgia Idiopathic pulmonary fibrosis Hiatal hernia GERD (gastroesophageal reflux disease) CAD (coronary artery disease) Diverticulitis Arthritis Hypertension Diabetes Anxiety Home Medications ???Medication ???Instructions ???Recorded ???Last Taken ???Type fluticasone propionate (more content not included)... Normal [facility] Gastroenterology Visit Repor ton 05-02-2024 Gastroenterology Visit Report [facility] Gastroenterology [address] [place] [address] OFFICE VISIT Date of Service: 05/02/24 MR#: [id number] Acct: [id number] Name: WHITNEY RUIZ Rep #: [id number] 2 : 1945 Provider: SAMMY garcia Age/Sex: 79/F Location: [facility] [place] Status: Signed Intake Vital Signs 01/11/24 10:46 05/02/24 13:28 Height 5 ft 2 in 5 ft 2 in BP 138/81 H Respiration 16 Pulse 72 Pulse Oximetry (%) 95 Oxygen Delivery Method room air Intake Visit Reasons: 3 M FU Chief Complaint: follow-up 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: No Accompanied by: Daughter Is patient in pain?: No Allergies adhesive Allergy (Intermediate, Verified 05/02/24 13:17) Rash amlodipine Allergy (Intermediate, Verified 05/02/24 13:17) Swelling amoxicillin (From Augmentin) Allergy (Intermediate, Verified 05/02/24 13:17) Shortness of breath carvedilol Allergy (Intermediate, Verified 05/02/24 13:17) Other ciprofloxacin Allergy (Intermediate, Verified 05/02/24 13:17) Other clarithromycin Allergy (Intermediate, Verified 05/02/24 13:17) Other clavulanic acid (From Augmentin) Allergy (Intermediate, Verified 05/02/24 13:17) Shortness of breath clonidine Allergy (Intermediate, Verified 05/02/24 13:17) Other dicyclomine Allergy (Intermediate, Verified 05/02/24 13:17) Shortness of breath diltiazem (From Cardizem) Allergy (Intermediate, Verified 05/02/24 13:17) Itching doxycycline Allergy (Intermediate, Verified 05/02/24 13:17) Vomiting duloxetine (From Cymbalta) Allergy (Intermediate, Verified 05/02/24 13:17) Other guaifenesin Allergy (Intermediate, Verified 05/02/24 13:17) Other levofloxacin Allergy (Intermediate, Verified 05/02/24 13:17) Other losartan Allergy (Intermediate, Verified 05/02/24 13:17) Other metronidazole (From Flagyl) Allergy (Intermediate, Verified 05/02/24 13:17) Itching rosuvastatin (From Crestor) Allergy (Intermediate, Verified 05/02/24 13:17) Other valsartan Allergy (Intermediate, Verified 05/02/24 13:17) Swelling acetaminophen (From Vicodin) Allergy (Verified 05/02/24 13:17) Other codeine Allergy (Verified 05/02/24 13:17) Other hydrocodone bitartrate (From Vicodin) Allergy (Verified 05/02/24 13:17) Other Iodinated Contrast Media Allergy (Verified 05/02/24 13:17) Other meloxicam (From Mobic) Allergy (Verified 05/02/24 13:17) Swelling Sulfa (Sulfonamide Antibiotics) Allergy (Verified 05/02/24 13:17) Rash sulfamethoxazole (From Septra) Allergy (Verified 05/02/24 13:17) Unknown trimethoprim (From Septra) Allergy (Verified 05/02/24 13:17) Unknown Medications ???Medication ???Instructions ???Recorded ???Confirmed ???Type fluticasone propionate 50 2 spray NS DAILY 03/15/15 05/02/24 History mcg/actuation nasal spray,suspension albuterol sulfate 90 mcg/actuation 2 puff inhalation Q4H PRN PRN 05/02/24 History aerosol inhaler (Ventolin HFA) Wheezing aspirin 81 mg chewable tablet 81 mg PO DAILY@0800 08/19/1805/02 History ergocalciferol (vitamin D2) 50 mcg 1.25 mg PO MOWEFR 08/19/1805/02 History (2,000 unit) capsule simethicone 125 mg capsule (Gas 125 mg PO QD-BID PRN 01/25/2406/21 History Relief (simethicone)) omeprazole 20 mg capsule,delayed 20 mg PO QDAY gerd 05/02/24 Histo ry release Have you fallen in the past year?: Yes Nurse's Note: RLQ discomfort where the diverticulitis is. Drinking prune juice and glycol when constipated and that helps. Heartburn is better. [facility] Medical History Vitamin D deficiency Thoracic aortic aneurysm SVT (supraventricular tachycardia) Sleep apnea Chronic sinusitis Osteoarthritis Occipital neuralgia IBS (irritable bowel syndrome) Idiopathic pulmonary fibrosis Hiatal hernia GERD (gastroesophageal reflux disease) Depression CAD (coronary artery disease) Diverticulitis Aortic aneurysm Arthritis Hypertension Diabetes Anxiety Surgical History Hx of cholecystectomy H/O heart artery stent H/O hand surgery History of total vaginal hysterectomy (TVH) Family History Mother Cancer stomach Sister Cancer lung- smoker Father Diabetes Hypertension Social History Smoking Status: Former smoker alcohol intake: never substance use type: does not use caffeine: No what type of physical activity do you participate in: none seatbelt use: always do you feel safe at home: Yes additional social history: - Retired HPI HPI Chief Complaint: follow-up Details: CAR (more content not included)... Normal [facility] CT CHEST HIGH RESOLUTIONon 0 04-15-2024 CT CHEST HIGH RESOLUTION Interpreted By: Juvencio Whittington, STUDY: CT CHEST HIGH RESOLUTION; 04/15/2024 2:23 pm INDICATION: Signs/Symptoms:SOB. ,I49.1 Atrial premature depolarization,R00.1 Bradycardia, unspecified,R06.02 Shortness of breath COMPARISON: None. ACCESSION NUMBER(S): [id number] ORDERING CLINICIAN: FRANCK LAMBERT TECHNIQUE: Using helical multidetector technique, volumetric data acquisition of the chest was obtained without intravenous administration of contrast material under the high resolution chest CT protocol. Examination includes contiguous slices through the chest in supine positioning during inspiration, noncontiguous axial slices in supine positioning during expiration and prone positioning during inspiration. FINDINGS: LUNGS AND AIRWAYS: The trachea and central airways are patent. No endobronchial lesion is seen.There is lower lobe predominant traction bronchiectasis and bronchiolectasis. Diffuse subpleural reticulations throughout the lungs, greatest in the mid to lower lobes though there is some upper lobe involvement as well. In addition, there is hpoz-yxqujxm-lyzg-right basilar honeycombing. Large calcified granuloma in the superior segment of the right lower lobe. Additional scattered calcified granulomas throughout the lungs, greatest in the right upper and middle lobes. No pleural effusion or pneumothorax. There are scattered areas of air trapping within the posterior segment of the right upper lobe as well as lobular air trapping within the bilateral lower lobes. This may be physiologic. Prone imaging reveals no additional findings. MEDIASTINUM AND ANASTASIYA, LOWER NECK AND AXILLA: Calcified nodule in the left thyroid lobe which is stable from prior exam and likely benign. Calcified mediastinal and right hilar lymph nodes are consistent with prior granulomatous disease. No new pathologically enlarged lymph nodes. Esophagus appears within normal limits as seen. HEART AND VESSELS: The thoracic aorta normal in course and caliber.There is moderate calcified atherosclerosis present. Main pulmonary artery is at the upper limits of normal measuring 3 cm. Severe coronary artery calcifications are seen. Please note,the study is not optimized for evaluation of coronary arteries. There is mild cardiomegaly with left atrial enlargement.Severe mitral annular calcifications. There is no pericardial effusion seen. UPPER ABDOMEN: Innumerable calcified granulomas throughout the spleen and liver. Status post cholecystectomy. Diverticula within the descending colon, partially visualized. CHEST WALL AND OSSEOUS STRUCTURES: Chest wall is within normal limits. No acute osseous pathology.There are no suspicious osseous lesions. IMPRESSION: 1. Basal and subpleural predominant reticulations with traction bronchiectasis/bronchiole ctasis and honeycombing, consistent with 'Typical UIP' pattern of pulmonary fibrosis*. Findings are intervally progressed since 2018. 2. Cardiomegaly with left atrial enlargement. Correlate with echocardiography. 3. Sequelae of prior granulomatous disease. 4. Severe coronary artery calcifications. MACRO: None Signed by: Juvencio Whittington 04/15/2024 2:56 PM Dictation workstation: [id number] [facility] CT Cheston 04-15-2024 1. Basal and subpleu ral predominant reticulations with traction bronchiectasis/bronchiole ctasis and honeycombing, consistent with 'Typical UIP' pattern of pulmonary fibrosis*. Findings are intervally progressed since 2018. 2. Cardiomegaly with left atrial enlargement. Correlate with echocardiography. 3. Sequelae of prior granulomatous disease. 4. Severe coronary artery calcifications. MACRO: None Signed by: Juvencio Whittington 04/15/2024 2:56 PM Dictation workstation: [id number] [facility] Interpreted By: Juvencio Chavez, STUDY: CT CHEST HIGH RESOLUTION; 04/15/2024 2:23 pm INDICATION: Signs/Symptoms:SOB. ,I49.1 Atrial premature depolarization,R00.1 Bradycardia, unspecified,R06.02 Shortness of breath COMPARISON: None. ACCESSION NUMBER(S): [id number] ORDERING CLINICIAN: FRANCK LAMBERT TECHNIQUE: Using helical multidetector technique, volumetric data acquisition of the chest was obtained without intravenous administration of contrast material under the high resolution chest CT protocol. Examination includes contiguous slices through the chest in supine positioning during inspiration, noncontiguous axial slices in supine positioning during expiration and prone positioning during inspiration. FINDINGS: LUNGS AND AIRWAYS: The trachea and central airways are patent. No endobronchial lesion is seen.There is lower lobe predominant traction bronchiectasis and bronchiolectasis. Diffuse subpleural reticulations throughout the lungs, greatest in the mid to lower lobes though there is some upper lobe involvement as well. In addition, there is pxbf-ebisndo-lcny-right basilar honeycombing. Large calcified granuloma in the superior segment of the right lower lobe. Additional scattered calcified granulomas throughout the lungs, greatest in the right upper and middle lobes. No pleural effusion or pneumothorax. There are scattered areas of air trapping within the posterior segment of the right upper lobe as well as lobular air trapping within the bilateral lower lobes. This may be physiologic. Prone imaging reveals no additional findings. MEDIASTINUM AND ANASTASIYA, LOWER NECK AND AXILLA: Calcified nodule in the left thyroid lobe which is stable from prior exam and likely benign. Calcified mediastinal and right hilar lymph nodes are consistent with prior granulomatous disease. No new pathologically enlarged lymph nodes. Esophagus appears within normal limits as seen. HEART AND VESSELS: The thoracic aorta normal in course and caliber.There is moderate calcified atherosclerosis present. Main pulmonary artery is at the upper limits of normal measuring 3 cm. Severe coronary artery calcifications are seen. Please note,the study is not optimized for evaluation of coronary arteries. There is mild cardiomegaly with left atrial enlargement.Severe mitral annular calcifications. There is no pericardial effusion seen. UPPER ABDOMEN: Innumerable calcified granulomas throughout the spleen and liver. Status post cholecystectomy. Diverticula within the descending colon, partially visualized. CHEST WALL AND OSSEOUS STRUCTURES: Chest wall is within normal limits. No acute osseous pathology.There are no suspicious osseous lesions. [facility] Juvencio Whittington MD - 04/15/2024 Interpreted By: Juvencio Whittington, STUDY: CT CHEST HIGH RESOLUTION; 04/15/2024 2:23 pm INDICATION: Signs/Symptoms:SOB. ,I49.1 Atrial premature depolarization,R00.1 Bradycardia, unspecified,R06.02 Shortness of breath COMPARISON: None. ACCESSION NUMBER(S): [id number] ORDERING CLINICIAN: FRANCK LAMBERT TECHNIQUE: Using helical multidetector technique, volumetric data acquisition of the chest was obtained without intravenous administration of contrast material under the high resolution chest CT protocol. Examination includes contiguous slices through the chest in supine positioning during inspiration, noncontiguous axial slices in supine positioning during expiration and prone positioning during inspiration. FINDINGS: LUNGS AND AIRWAYS: The trachea and central airways are patent. No endobronchial lesion is seen.There is lower lobe predominant traction bronchiectasis and bronchiolectasis. Diffuse subpleural reticulations throughout the lungs, greatest in the mid to lower lobes though there is some upper lobe involvement as well. In addition, there is iwmk-abiloty-atev-right basilar honeycombing. Large calcified granuloma in the superior segment of the right lower lobe. Additional scattered calcified granulomas throughout the lungs, greatest in the right upper and middle lobes. No pleural effusion or pneumothorax. There are scattered areas of air trapping within the posterior segment of the right upper lobe as well as lobular air trapping within the bilateral lower lobes. This may be physiologic. Prone imaging reveals no additional findings. MEDIASTINUM AND ANASTASIYA, LOWER NECK AND AXILLA: Calcified nodule in the left thyroid lobe which is stable from prior exam and likely benign. Calcified mediastinal and right hilar lymph nodes are consistent with prior granulomatous disease. No new pathologically enlarged lymph nodes. Esophagus appears within normal limits as seen. HEART AND VESSELS: The thoracic aorta normal in course and caliber.There is moderate calcified atherosclerosis present. Main pulmonary artery is at the upper limits of normal measuring 3 cm. Severe coronary artery calcifications are seen. Please note,the study is not optimized for evaluation of coronary arteries. There is mild cardiomegaly with left atrial enlargement.Severe mitral annular calcifications. There is no pericardial effusion seen. UPPER ABDOMEN: Innumerable calcified granulomas throughout the spleen and liver. Status post cholecystectomy. Diverticula within the descending colon, partially visualized. CHEST WALL AND OSSEOUS STRUCTURES: Chest wall is within normal limits. No acute osseous pathology.There are no suspicious osseous lesions. IMPRESSION: 1. Basal and subpleural predominant reticulations with traction bronchiectasis/bronchiole ctasis and honeycombing, consistent with 'Typical UIP' pattern of pulmonary fibrosis*. Findings are intervally progressed since 2018. 2. Cardiomegaly with left atrial enlargement. Correlate with echocardiography. 3. Sequelae of prior granulomatous disease. 4. Severe coronary artery calcifications. MACRO: None Signed by: Juvencio Whittington 04/15/2024 2:56 PM Dictation workstation: [id number] [facility] Work Phone: Radiology Study observation (narrative) [facility] Work Phone: CT ChestOrdered By: Juvencio viera on 04-15-2024 [facility] Work Phone: ECG 12-LEADon 04-01-2024 ECG 12-LEAD Ventricular Rate 64 Atrial Rate 64 P-R Interval 132 QRS Duration 78 Q-T Interval 402 QTC Calculation(Bazett) 414 P Murray 9 R Murray -3 T Murray -12 QRS Count 11 Q Onset 218 P Onset 152 P Offset 211 T Offset 419 QTC Fredericia 410 Diagnosis Normal sinus rhythm Normal ECG When compared with ECG of 15-MAR-2024 11:50, Vent. rate has increased BY 21 BPM T wave amplitude has decreased in Anterior leads Confirmed by Franck Lambert ([id number]) on 04/08/2024 1:16:13 PM Normal [facility] CNOVon 03-24-2024 CNOV Office Visit (INTMWS ) ----- RUIZWHITNEY TOBAR ([id number]) 1945 F CHT Date Time Provider Department 03/24/24 1:20 PM KRISTY BROWER INTMWS During your visit today, we recorded the following information about you: Temperature Pulse Respiration Blood pressure 98.5 degrees 72/minute 14/minute 140/82 Weight 84.2 kg Kristy Brower MD 03/24/2024 5:43 PM Addendum This note was created using AISriter. Subjective Whitney Ruiz is a 78 year old female. Patient presents with: hospital f/up : Diverticulitis and pneumonia SUBJECTIVE: Whitney Ruiz is a 78 year old year old lady here today for hospital follow up appointment for review of medical conditions. From Discharge Summary from [facility]: Discharge Diagnosis Syncope, unspecified syncope type Issues Requiring Follow-Up Bradycardia Mild diverticulitis Pneumonia Was having GI upset symptoms and rushed to the bathroom, after going she had the syncopal episode. - Feeling constipation symptoms now: LRQ pain currently. Taking Miralax b/c after discharge took 5 days to have a BM. - Concerned for thrush, burning and dry feeling in her mouth Hospital called the pneumonia, but Lung Doctor had seen her just prior and stated that x-rays were just her pulmonary fibrosis, not pneumonia. Bradycardia: - Noticed low HR in the ER at 40bpms; Normally runs 40s to 50s on metoprolol - Taking a half dose of lisinopril currently (10mg breaking into 5mg once per day) - 160/80 avg. On home BP readings (aggregate for a whole day) Denies any more feelings of pre-syncope, dizziness, lightheadedness. Biggest concern currently is fatigue AND sleepiness which is worse than prior to being at the hospital. Whitney Ruiz is an 78-year-old female with a history of pulmonary fibrosis, diverticulitis, and cardiac issues, presenting for a hospital follow-up. Whitney was recently hospitalized for diverticulitis and a syncopal episode. She reports improvement in bowel issues but continues to experience right-sided abdominal pain. She has been taking Miralax to facilitate bowel movements. During her hospitalization, Whitney's heart rate was noted to be in the 40s-50s, leading to a reduction in her metoprolol dosage from 50 mg BID to 25 mg BID. However, she has not been taking metoprolol due to concerns about bradycardia and associated fatigue. She has also been taking lisinopril 5 mg intermittently for blood pressure control, having previously been on 10 mg. Her blood pressure readings have varied, with recent measurements of 170s/90s on the and 130s/80s on the . She was discharged from the hospital on the and has not been consistently taking antihypertensive medications since then. Whitney also reports symptoms of oral thrush following antibiotic treatment for diverticulitis. She describes a creamy substance in her mouth and requests treatment for this condition. Additionally, Whitney has been experiencing internal tremors and weakness, which she attributes to the antibiotic treatment. She expresses a desire to undergo knee surgery for severe right knee arthritis but has been postponing it due to her current medical issues. PAST MEDICAL HISTORY Diagnosis Date CAD (coronary artery disease) 04/16/2012 70-80% LAD --had stent placed 09/07/14 Depressive disorder, not elsewhere classified Diverticulitis of colon with hemorrhage 2001 DM w/o Complication Type II 04/05/2009 GERD (gastroesophageal reflux disease) Hiatal hernia Hypertension 03/30/1988 IPF (idiopathic pulmonary fibrosis) (HCC) Irritable bowel syndrome Occipital neuralgia Osteoarthritis 06/27/2011 Other chronic sinusitis Other osteoporosis Post-nasal drip Situational depression 12/27/2014 Sleep apnea 03/30/1996 Statin intolerance 12/24/2016 SVT (supraventricular tachycardia) (HCC) 10/02/2018 Thoracic aortic aneurysm (HCC) [address] chest (2014, 2013)--July 09, [address] Unspecified essential hypertension Patient has had since age 33 Vitamin D Deficiency 04/18/2009 Current Outpatient Medications Medication Sig CPAP Continue settings of Auto PAP to 5-15 cm of water with humidification. Continue orders for: Mask (per patient preference) optional chin strap (if indicated) , filters, tubing, humidifier and lifetime supplies. famotidine (PEPCID) 40 mg tablet Take 40 mg by mouth once daily. hydrocortisone 2.5 % cream Apply 1 application to affected area three times a day as needed (itchy skin lesion on chest). Apply thin layer as directed torsemide (DEMADEX) 10 mg tablet Take 1 tablet by mouth once daily as needed (edema). blood sugar diagnostic (BLOOD GLUCOSE TEST) test strip Test blood sugar 1 time daily. Dx: Type 2 DM - Controlled E11.9 Insulin: No. Lancets Test blood sugar(s) 2 times daily and as needed. To go with lancet pen with g (more content not included)... Normal [facility] ----- WHTINEY RUIZ ([id number]) 1945 F T Date Time Provider Department 03/18/24 KRISTY BROWER INTMWS During your visit today, we recorded the following information about you: Gwen Wade, SHOLA 03/18/2024 9:08 AM Signed Patient calls and states that she was at [facility] and was discharged yesterday 03/27/2024. Patient was diagnosed with Diverticulitis and Pneumonia. Patient was prescribed Levaquin while in hospital. In hospital patient was give Benadryl due to allergies to Levaquin. Patient was sent home with Levaquin 750 mg. Patient was told that it was up to her on whether to take Benadryl or not. Patient reports that she was having leg pains and restless legs while on Benadryl. Patient decided when she got home that she would not take the Benadryl. Patient reports that she has been shaky and weak. Patient thinks this is due to being on Levaquin. Patient states that she felt this way while she was in the hospital. While in hospital they took her off her blood pressure medication due to her pulse being too low (in the 40s). Patient was told to keep an eye on her blood pressure. Patient's blood pressure today at 7 am was 167/85 Pulse 60. Patient has hospital follow up with Dr. Brower on 03/24/2024. Please review and advise, SHOLA Espinal Liza D, MD 03/18/2024 9:31 AM Signed Will home health be following with her to monitor BP, etc? The benadryl can be used just as needed for allergic reactions like rash. Does not need to take routinely. She could be feeling week from the pneumonia and diverticulitis. If not other symptoms, okay to finish the course of antibiotic (5 days more were prescribed at discharge 03/17 per medication dispense history). If her heart rate is not too low, may resume metoprolol. But verify whether taking it since looks like a RX for 25 mg was sent to the pharmacy. If is taking 25 mg, could increase back up to 50 mg if heart rate okay but BP still too high. If HR going too low (under 50) will need to consider alternate med that she can tolerate given her intolerance and allergy med list. Gwen Wade RN 03/18/2024 9:42 AM Signed Patient called and notified of provider instructions. Patient voiced understanding. Went over symptoms of high blood pressure, patient voiced understanding. Patient will call back if blood pressure gets to high or pulse gets too low. Patient states that she has been running in the 40s for quite a while. Patient does not have home health coming in for blood pressures. Son has been monitoring BP, pulse, and O2 levels and has been keeping a record of them. Patient will bring in log to appointment. Gwen Wade RN Allergies As of Date: 03/18/2024 Noted Allergy Reaction CODEINE 04/24/2006 12 - Shortness of Breath VICODIN (HYDROCODONE-ACETAMINOPHE *08/10/2006 5 - Intolerance Comments: cardiac arrest ADHESIVE 03/27/2010 2 - Rash AUGMENTIN (AMOXICILLIN-POT CLAVUL*03/09/2012 12 - Shortness of Breath Comments: Called and complained that caused SOB BIAXIN (CLARITHROMYCIN) 02/16/2013 1 - Mental Status Change CARDIZEM (DILTIAZEM) 03/16/2019 5 - Intolerance Comments: itching CIPROFLOXACIN 08/04/2013 14 - Other: See Comments Comments: Muscle pain CLONIDINE 07/06/2013 5 - Intolerance Comments: low heart rate to 42; BP also dropped; tried patch and was okay for a while but then stopped since affected thinking COREG (CARVEDILOL) 10/04/2019 5 - Intolerance Comments: grumpy, runny nose CRESTOR (ROSUVASTATIN CALCIUM) 09/11/2009 5 - Intolerance Comments: muscle aches all over CYMBALTA (DULOXETINE) 08/14/2014 14 - Other: See Comments Comments: Elevated BP and blood sugar went up DICYCLOMINE 05/19/2013 12 - Shortness of Breath DIOVAN (VALSARTAN) 11/17/2017 7 - Swelling Comments: In feet, legs AND ankles DOXYCYCLINE 03/11/2012 11 - Vomiting Comments: Vomiting after the first dose, intense. FLAGYL (METRONIDAZOLE) 02/16/2013 9 - Itching GUAIFENESIN-SODIUM CITRATE 04/24/2006 5 - Intolerance Comments: jittery LEVOFLOXACIN 08/04/2013 14 - Other: See Comments Comments: Muscle pain LOSARTAN 10/04/2019 14 - Other: See Comments Comments: Made me lose hair. Low back pain, stomach upset LOVASTATIN 09/11/2009 5 - Intolerance Comments: Muscle aches all over MOBIC (MELOXICAM) 10/12/2007 Comments: lips swell MORPHINE 10/06/2011 9 - Itching Comments: possibly was from the IV or tape since was from IV morphine; only affected arm of hand had IV in NIFEDIPINE 03/16/2019 5 - Intolerance Comments: palpitations; also to see if runny nose resolved (did not) NORVASC (AMLODIPINE BESYLATE) 10/20/2017 7 - Swelling SULFA (SULFONAMIDE ANTIBIOTICS) 04/24/2006 2 - Rash ULTRAVIST (IOPROMIDE) 01/18/2010 14 - Other: See Comments Comments: Pt sts with previous cat scan she had delayed chest tightne (more content not included)... Normal [facility] Basic metabolic 2000 panelon 03-17-2024 Anion gap [Moles/Vol] 11 mmol/L 10 - 2 0 mmol/L [facility] Calcium [Mass/Vol] 9 mg/dL 8.6 - 10. 3 mg/dL [facility] Chloride [Moles/Vol] 109 mmol/L High 98 - 10 7 mmol/L [facility] CO2 [Moles/Vol] 25 mmol/L 21 - 32 mmol/L [facility] Creatinine [Mass/Vol] 0.52 mg/dL 0.50 - 1.05 mg/dL [facility] eGFR - PINF [facility] Comment on above: Calculations of loco mated GFR are performed using the 2020 CKD-EPI Study Refit equation without the race variable for the IDMS-Traceable creatinine methods. https://jasn.asnjournals.org/content/early/ASN.893746 4512 Glucose [Mass/Vol] 114 mg/dL High 74 - 99 mg/dL [facility] Interpretation and review of laboratory results Abnormal [facility] Potassium [Moles/Vol] 3.8 mmol/L 3.5 - 5.3 mmol/L [facility] Sodium [Moles/Vol] 141 mmol/L 136 - 145 mmol/L [facility] Urea nitrogen [Mass/Vol] 12 mg/dL 6 - 23 mg/dL [facility] Anion gap [Moles/Vol] 11 mmol/L Normal 10-20 [facility] Comment on above: Performed By: #### 5 7021-8 #### JAE THOMPSON ([id number]) [facility] ([facility]) [address] [place] [address] Calcium [Mass/Vol] 9.0 mg/dL Normal 8.6-10.3 [facility] Comment on above: Performed By: #### 5 7021-8 #### JAE THOMPSON ([id number]) [facility] ([facility]) [address] [place] [address], [place] [address] Chloride [Moles/Vol] 109 mmol/L High 98-107 [facility] Comment on above: Performed By: #### 5 7021-8 #### JAE THOMPSON ([id number]) [facility] ([facility]) [facility] [place] [address] CO2 [Moles/Vol] 25 mmol/L Normal 21-32 [facility] Comment on above: Performed By: #### 5 7021-8 #### JAE THOMPSON ([id number]) [facility] ([facility]) [address] [place] [address] Creatinine [Mass/Vol] 0.52 mg/dL Normal 0.50-1.05 [facility] Comment on above: Performed By: #### 5 7021-8 #### JAE THOMPSON ([id number]) [facility] ([facility]) [address] [place] [address] GFR/1.73 sq M.predicted MDRD (S/P/Bld) [Vol rate/Area] mL/min/{1.73_m2} Normal >60 [facility] Comment on above: Result Comment: Calc ulations of estimated GFR are performed using the 2020 CKD-EPI Study Refit equation without the race variable for the IDMS-Traceable creatinine methods. https://jasn.asnjournals.org/content//ASN.011678 1726 Performed By: #### 5 7021-8 #### JAE THOMPSON ([id number]) [facility] ([facility]) [address] [place] [address] Glucose [Mass/Vol] 114 mg/dL High 74-99 [facility] Comment on above: Performed By: #### 5 7021-8 #### JAE THOMPSON ([id number]) [facility] ([facility]) [address] [place] [address] Potassium [Moles/Vol] 3.8 mmol/L Normal 3.5-5.3 [facility] Comment on above: Performed By: #### 5 7021-8 #### JAE THOMPSON ([id number]) [facility] ([facility]) [address] [place] [address] Sodium [Moles/Vol] 141 mmol/L Normal 136-145 [facility] Comment on above: Performed By: #### 5 7021-8 #### JAE THOMPSON ([id number]) [facility] ([facility]) [facility] [place] [address] Urea nitrogen [Mass/Vol] 12 mg/dL Normal 6-23 [facility] Comment on above: Performed By: #### 5 7021-8 #### JAE THOMPSON ([id number]) [facility] ([facility]) [address] [place] [address] 51281 Lavender Topon 03-17-2024 Extra Tube Hold for add-ons. [facility] Comment on above: Auto resulted. [facility] Legionella Antigen, Urineon 03-17-2024 Legionella sp Ag Ql (U) Negative Negative [facility] Work Phone: Legionella sp Ag Ql (U)on Interpretation and review of laboratory results Normal [facility] Work Phone: [facility] Work Phone: S. pneumoniae Ag Ql (U)on Interpretation and review of laboratory results Normal [facility] Work Phone: [facility] Work Phone: Streptococcus pneumoniae Ant igen, Urineon 03-17-2024 S. pneumoniae Ag Ql (U) Negative Negative [facility] Work Phone: Bacteria identified Cx Nom ( U)Ordered By: Taco Yanez on 03-16-2024 Interpretation and review of laboratory results Normal [facility] CT HEAD WO IV CONTRASTon CT HEAD WO IV CONTRAST Interpreted By: Ibrahima Lazar, STUDY: CT HEAD WO IV CONTRAST; 03/16/2024 4:41 pm INDICATION: Signs/Symptoms:syncope. COMPARISON: CT head from 12/29/2020. ACCESSION NUMBER(S): [id number] ORDERING CLINICIAN: STACI IZAGUIRRE TECHNIQUE: Noncontrast axial CT scan of head was performed. Angled reformats in brain and bone windows were generated. The images were reviewed in bone, brain, blood and soft tissue windows. FINDINGS: CSF Spaces: The ventricles, sulci and basal cisterns are within normal limits. There is no abnormal extraaxial fluid collection. Parenchyma: The martin-white differentiation is intact. There is no mass effect or midline shift. There is no acute intracranial hemorrhage. There are regions of hypoattenuation within the cerebral hemispheric white matter which are probably sequela of chronic small vessel ischemic changes. Calvarium: The calvarium is unremarkable. Paranasal sinuses and mastoids: Visualized paranasal sinuses and mastoid air cells are essentially clear. IMPRESSION: No acute intracranial abnormality or mass effect. This study was interpreted at [facility]. MACRO: None Signed by: Ibrahima Lazar 03/16/2024 7:20 PM Dictation workstation: [id number] Normal [facility] CT Head WO contraston 2023 No acute intracrania l abnormality or mass effect. This study was interpreted at [facility]. MACRO: None Signed by: Ibrahima Lazar 03/16/2024 7:20 PM Dictation workstation: [id number] [facility] MMODAL Interpreted By: Ibrahima Zee, STUDY: CT HEAD WO IV CONTRAST; 03/16/2024 4:41 pm INDICATION: Signs/Symptoms:syncope. COMPARISON: CT head from 12/29/2020. ACCESSION NUMBER(S): [id number] ORDERING CLINICIAN: STACI IZAGUIRRE TECHNIQUE: Noncontrast axial CT scan of head was performed. Angled reformats in brain and bone windows were generated. The images were reviewed in bone, brain, blood and soft tissue windows. FINDINGS: CSF Spaces: The ventricles, sulci and basal cisterns are within normal limits. There is no abnormal extraaxial fluid collection. Parenchyma: The martin-white differentiation is intact. There is no mass effect or midline shift. There is no acute intracranial hemorrhage. There are regions of hypoattenuation within the cerebral hemispheric white matter which are probably sequela of chronic small vessel ischemic changes. Calvarium: The calvarium is unremarkable. Paranasal sinuses and mastoids: Visualized paranasal sinuses and mastoid air cells are essentially clear. MMODAL Ibrahima Lazar MD - 03/16/2024 Interpreted By: Ibrahima Lazar, STUDY: CT HEAD WO IV CONTRAST; 03/16/2024 4:41 pm INDICATION: Signs/Symptoms:syncope. COMPARISON: CT head from 12/29/2020. ACCESSION NUMBER(S): [id number] ORDERING CLINICIAN: STACI IZAGUIRRE TECHNIQUE: Noncontrast axial CT scan of head was performed. Angled reformats in brain and bone windows were generated. The images were reviewed in bone, brain, blood and soft tissue windows. FINDINGS: CSF Spaces: The ventricles, sulci and basal cisterns are within normal limits. There is no abnormal extraaxial fluid collection. Parenchyma: The martin-white differentiation is intact. There is no mass effect or midline shift. There is no acute intracranial hemorrhage. There are regions of hypoattenuation within the cerebral hemispheric white matter which are probably sequela of chronic small vessel ischemic changes. Calvarium: The calvarium is unremarkable. Paranasal sinuses and mastoids: Visualized paranasal sinuses and mastoid air cells are essentially clear. IMPRESSION: No acute intracranial abnormality or mass effect. This study was interpreted at [facility]. MACRO: None Signed by: Ibrahima Lazar 03/16/2024 7:20 PM Dictation workstation: [id number] [facility] Work Phone: Radiology Study observation (narrative) [facility] Work Phone: CT Head WO contrastOrdered B y: Ibrahima Lazar on 03-16-2024 [facility] Work Phone: Extra Urine Keith Tubeon 02-27 Extra Tube Hold for add-ons. [facility] Comment on above: Auto resulted. [facility] Gastrointestinal pathogens i dentified LAMIN+probe Nom (Stl)Ordered By: Adina Kirkpatrick on 03-16-2024 Campylobacter Group Not detected Not Detected [facility] E. coli stx1 gene LAMIN+probe Ql (Stl) Not detected Not Detected [facility] E. coli stx2 gene LAMIN+probe Ql (Stl) Not detected Not Detected [facility] Interpretation and review of laboratory results Normal [facility] Norovirus genogroup I and II RNA LAMIN+probe Nom (Stl) Not detected Not Detected [facility] Rotavirus RNA LAMIN+probe Nom (Stl) Not detected Not Detected [facility] Salmonella species Not detected Not Detected [facility] Shigella sp DNA LAMIN+probe Ql (Unsp spec) Not detected Not Detected [facility] Vibrio Group Not detected Not Detected [facility] Y. enterocolitica DNA LAMIN+probe Ql (Stl) Not detected Not Detected [facility] Urine CultureOrdered By: Andres Yanez on 03-16-2024 Bacteria identified Cx Nom (U) Clinically insignificant growth based on current clinical standards. [facility] APTTon 03-15-2024 aPTT Coag (PPP) [Time] 29 s [facility] Bacteria identifiedon 2023 Bacteria identified Cx Nom (U) Test: Urine culture Specimen Source: Clean Catch/Voided Specimen Type: Urine Specimen Date: 03/15/20242118 Result Date: 03/17/20241115 Result Status: Final result Abnormal: No Resulting Lab: [facility] [id number] [place] [address] CULTURE Clinically insignificant growth based on current clinical standards. Normal [facility] Comment on above: Performed By: #### 5 7021-8 #### ROWE JAY ([id number]) [facility] ([facility]) [address] [place] [address] Bacteria identified Cx Nom (U) Test: Urine Culture Specimen Source: Clean Catch/Voided Specimen Type: Urine Specimen Date: 03/15/2024 1406 Result Date: 03/16/2024 1651 Result Status: Final result Abnormal: No Resulting Lab: [facility] [address] [place] [id number] CULTURE Clinically insignificant growth based on current clinical standards. Normal [facility] Comment on above: Performed By: #### 6 30-4 ####SAUNDRA Nash ([id number])[facility] ([facility])[address] [place] [address] Basic metabolic 2000 panelon 03-15-2024 Anion gap [Moles/Vol] 12 mmol/L 10 - 2 0 mmol/L [facility] Calcium [Mass/Vol] 9.3 mg/dL 8.6 - 10. 3 mg/dL [facility] Chloride [Moles/Vol] 105 mmol/L 98 - 10 7 mmol/L [facility] CO2 [Moles/Vol] 26 mmol/L 21 - 32 mmol/L [facility] Creatinine [Mass/Vol] 0.58 mg/dL 0.50 - 1.05 mg/dL [facility] eGFR - PINF [facility] Comment on above: Calculations of loco mated GFR are performed using the 2020 CKD-EPI Study Refit equation without the race variable for the IDMS-Traceable creatinine methods. https://jasn.asnjournals.org/content///ASN.383571 9303 Glucose [Mass/Vol] 190 mg/dL High 74 - 99 mg/dL [facility] Potassium [Moles/Vol] 4.3 mmol/L 3.5 - 5.3 mmol/L [facility] Sodium [Moles/Vol] 139 mmol/L 136 - 145 mmol/L [facility] Urea nitrogen [Mass/Vol] 22 mg/dL 6 - 23 mg/dL [facility] Anion gap [Moles/Vol] 12 mmol/L Normal 10-20 [facility] Comment on above: Performed By: #### 2 4321-2 ####ROWE JAY ([id number])[facility] ([facility])[address] [place] [address] Calcium [Mass/Vol] 9.3 mg/dL Normal 8.6-10.3 [facility] Comment on above: Performed By: #### 2 4321-2 ####JAE THOMPSON ([id number])[facility] ([facility] [place] [address] Chloride [Moles/Vol] 105 mmol/L Normal 98-107 [facility] Comment on above: Performed By: #### 2 4321-2 ####JAE THOMPSON ([id number])[facility] ([facility])[address] [place] [address] CO2 [Moles/Vol] 26 mmol/L Normal 21-32 [facility] Comment on above: Performed By: #### 2 4321-2 ####JAE THOMPSON ([id number])[facility] ([facility])[address] [place] [address] 11757 Creatinine [Mass/Vol] 0.58 mg/dL Normal 0.50-1.05 [facility] Comment on above: Performed By: #### 2 4321-2 ####JAE THOMPSON ([id number])[facility] ([facility])[address] [place] [address] 15599 GFR/1.73 sq M.predicted MDRD (S/P/Bld) [Vol rate/Area] mL/min/{1.73_m2} Normal >60 [facility] Comment on above: Result Comment: Calc ulations of estimated GFR are performed using the 2020 CKD-EPI Study Refit equation without the race variable for the IDMS-Traceable creatinine methods. https://jasn.asnjournals.org/content/early//ASN.416043 0962 Performed By: #### 2 4321-2 ####JAE THOMPSON ([id number])[facility] ([facility])[address] [place] [address] Glucose [Mass/Vol] 190 mg/dL High 74-99 [facility] Comment on above: Performed By: #### 2 4321-2 ####JAE THOMPSON ([id number])[facility] ([facility])[address] [place] [address]40 Potassium [Moles/Vol] 4.3 mmol/L Normal 3.5-5.3 [facility] Comment on above: Performed By: #### 2 4321-2 ####JAE THOMPSON ([id number])[facility] ([facility])[address] [place] [address] Sodium [Moles/Vol] 139 mmol/L Normal 136-145 [facility] Comment on above: Performed By: #### 2 4321-2 ####JAE THOMPSON ([id number])[facility] ([facility])[address] [place] [address] Urea nitrogen [Mass/Vol] 22 mg/dL Normal 6-23 [facility] Comment on above: Performed By: #### 2 4321-2 ####JAE THOMPSON ([id number])[facility] ([facility] [place] [address] C. difficile toxin A+B tcdA+ tcdB genes LAMIN+probe Ql (Stl)on 03-15-2024 Interpretation and review of laboratory results Normal [facility] This test is an FDA-cleared real-time PCR assay for detection of toxigenic C. difficile DNA from unprocessed liquid or unformed stool specimens that have not undergone nucleic acid extraction in symptomatic patients with potential C. difficile infection (CDI). A positive result may indicate colonization, and clinical assessment is required for the diagnosis of CDI. This test cannot be performed on formed stools or used as a test of cure, and should not be performed more than once per 7 days. [facility] C. difficile, PCRon 03-15-20 24 C. difficile toxin A+B tcdA+tcdB genes LAMIN+probe Ql (Stl) Not detected Not Detected [facility] CBC W Auto Differential pane l (Bld)on 03-15-2024 Basophils (Bld) [#/Vol] 0.04 10*3/uL [facility] Basophils/100 WBC (Bld) 0.5 % 0.0 - 2.0 % [facility] Eosinophils (Bld) [#/Vol] 0.22 10*3/uL [facility] Eosinophils/100 WBC (Bld) 2.5 % 0.0 - 6.0 % [facility] Erythrocyte distribution width (RBC) [Ratio] 13.4 % 11.5 - 14.5 % [facility] Hematocrit (Bld) [Volume fraction] 41.1 % 36.0 - 46.0 % [facility] Hemoglobin (Bld) [Mass/Vol] 13.2 g/dL 12.0 - 16.0 g/dL [facility] Immature granulocytes (Bld) [#/Vol] 0.02 10*3/uL [facility] Immature granulocytes/100 WBC (Bld) 0.2 % 0.0 - 0.9 % [facility] Comment on above: Immature Granulocyte Count (IG) includes promyelocytes, myelocytes and metamyelocytes but does not include bands. Percent differential counts (%) should be interpreted in the context of the absolute cell counts (cells/UL). Interpretation and review of laboratory results Abnormal [facility] Lymphocytes (Bld) [#/Vol] 1.76 10*3/uL [facility] Lymphocytes/100 WBC (Bld) 19.9 % 13.0 - 44.0 % [facility] MCH (RBC) [Entitic mass] 29.2 pg 26.0 - 34.0 pg [facility] MCHC (RBC) [Mass/Vol] 32.1 g/dL 32.0 - 36.0 g/dL [facility] MCV (RBC) [Entitic vol] 91 fL 80 - 100 fL [facility] Monocytes (Bld) [#/Vol] 1 10*3/uL High [facility] Monocytes/100 WBC (Bld) 11.3 % 2.0 - 10.0 % [facility] Neutrophils (Bld) [#/Vol] 5.82 10*3/uL High [facility] Comment on above: Percent differential counts (%) should be interpreted in the context of the absolute cell counts (cells/uL). Neutrophils/100 WBC (Bld) 65.6 % 40.0 - 80.0 % [facility] Nucleated RBC/100 WBC (Bld) [Ratio] 0 % [facility] Platelets (Bld) [#/Vol] 285 10*3/uL [facility] RBC (Bld) [#/Vol] 4.52 10*6/uL [facility] WBC (Bld) [#/Vol] 8.9 10*3/uL [facility] Basophils (Bld) [#/Vol] 0.04 x10*3/uL Normal 0.00-0.10 [facility] Comment on above: Performed By: #### 5 7021-8 ####JAE THOMPSON ([id number])[facility] ([facility])[address] [place] [address] 35951 Basophils/100 WBC (Bld) 0.5 % Normal 0.0-2.0 [facility] Comment on above: Performed By: #### 5 7021-8 ####JAE THOMPSON ([id number])[facility] ([facility])[address] [place] [address] 58688 Eosinophils (Bld) [#/Vol] 0.22 x10*3/uL Normal 0.00-0.40 [facility] Comment on above: Performed By: #### 7021-8 ####JAE THOMPSON ([id number])[facility] ([facility])[address] [place] [address] 14039 Eosinophils/100 WBC (Bld) 2.5 % Normal 0.0-6.0 [facility] Comment on above: Performed By: #### 5 7021-8 ####JAE THOMPSON ([id number])[facility] ([facility])[address] [place] [address] 13451 Erythrocyte distribution width (RBC) [Ratio] 13.4 % Normal 11.5-14.5 [facility] Comment on above: Performed By: #### 7021-8 ####JAE THOMPSON ([id number])[facility] ([facility])[address] [place] [address] 62813 Hematocrit (Bld) [Volume fraction] 41.1 % Normal 36.0-46.0 [facility] Comment on above: Performed By: #### 7021-8 ####JAE THOMPSON ([id number])[facility] ([facility])[address] [place] [address] 08479 Hemoglobin (Bld) [Mass/Vol] 13.2 g/dL Normal 12.0-16.0 [facility] Comment on above: Performed By: #### 5 7021-8 ####JAE THOMPSON ([id number])[facility] ([facility])[address] [place] [address] 29427 Immature granulocytes (Bld) [#/Vol] 0.02 x10*3/uL Normal 0.00-0.50 [facility] Comment on above: Performed By: #### 5 7021-8 ####JAE THOMPSON ([id number])[facility] ([facility])[address] [place] [address] 38975 Immature granulocytes/100 WBC (Bld) 0.2 % Normal 0.0-0.9 [facility] Comment on above: Result Comment: Sara ture Granulocyte Count (IG) includes promyelocytes, myelocytes and metamyelocytes but does not include bands. Percent differential counts (%) should be interpreted in the context of the absolute cell counts (cells/UL). Performed By: #### 5 7021-8 ####JAE THOMPSON ([id number])[facility] ([facility])[address] [place] [address] 58581 Lymphocytes (Bld) [#/Vol] 1.76 x10*3/uL Normal 0.80-3.00 [facility] Comment on above: Performed By: #### 5 7021-8 ####JAE THOMPSON ([id number])[facility] ([facility])[address] [place] [address] 64272 Lymphocytes/100 WBC (Bld) 19.9 % Normal 13.0-44.0 [facility] Comment on above: Performed By: #### 5 7021-8 ####JAE THOMPSON ([id number])[facility] ([facility])[address] [place] [address] 22925 MCH (RBC) [Entitic mass] 29.2 pg Normal 26.0-34.0 [facility] Comment on above: Performed By: #### 5 7021-8 ####JAE THOMPSON ([id number])[facility] ([facility])[address] [place] [address] 57987 MCHC (RBC) [Mass/Vol] 32.1 g/dL Normal 32.0-36.0 [facility] Comment on above: Performed By: #### 5 7021-8 ####JAE THOMPSON ([id number])[facility] ([facility])[address] [place] [address] 58878 MCV (RBC) [Entitic vol] 91 fL Normal 80-100 [facility] Comment on above: Performed By: #### 5 7021-8 ####JAE THOMPSON ([id number])[facility] ([facility])[address] [place] [address] 38437 Monocytes (Bld) [#/Vol] 1.00 x10*3/uL High 0.05-0.80 [facility] Comment on above: Performed By: #### 5 7021-8 ####JAE THOMPSON ([id number])[facility] ([facility])[address] [place] [address] 31161 Monocytes/100 WBC (Bld) 11.3 % Normal 2.0-10.0 [facility] Comment on above: Performed By: #### 5 7021-8 ####JAE THOMPSON ([id number])[facility] ([facility])[address] [place] [address] 84176 Neutrophils (Bld) [#/Vol] 5.82 x10*3/uL High 1.60-5.50 [facility] Comment on above: Result Comment: Perc ent differential counts (%) should be interpreted in the context of the absolute cell counts (cells/uL). Performed By: #### 5 7021-8 ####JAE THOMPSON ([id number])[facility] ([facility])[address] [place] [address] 18371 Neutrophils/100 WBC (Bld) 65.6 % Normal 40.0-80.0 [facility] Comment on above: Performed By: #### 5 7021-8 ####JAE THOMPSON ([id number])[facility] ([facility])[address] [place] [address] 19996 Nucleated RBC/100 WBC (Bld) [Ratio] 0.0 /100 WBCs Normal 0.0-0.0 [facility] Comment on above: Performed By: #### 5 7021-8 ####JAE THOMPSON ([id number])[facility] ([facility])[address] [place] [address] 09783 Platelets (Bld) [#/Vol] 285 x10*3/uL Normal 150-450 [facility] Comment on above: Performed By: #### 5 7021-8 ####JAE THOMPSON ([id number])[facility] ([facility])[address] [place] [address] 12701 RBC (Bld) [#/Vol] 4.52 x10*6/uL Normal 4.00-5.20 [facility] Comment on above: Performed By: #### 5 7021-8 ####JAE THOMPSON ([id number])[facility] ([facility])[address] [place] [address] 53364 WBC (Bld) [#/Vol] 8.9 x10*3/uL Normal 4.4-11.3 [facility] Comment on above: Performed By: #### 5 7021-8 ####JAE THOMPSON ([id number])[facility] ([facility])[address] [place] [address] [facility] P[facility]BDOMEN PELVIS WO IV CONTRAST STUDY: CT Abdomen and Pelvis without IV Contrast; 03/15/2024, 1305 INDICATION: Abdominal pain, diarrhea. Rule out colitis/diverticulitis. COMPARISON: CT abd 01/11/2024, 12/24/2022. ACCESSION NUMBER(S): [id number] ORDERING CLINICIAN: ROCAEL CORREA TECHNIQUE: CT of the abdomen and pelvis was performed. Contiguous axial images were obtained at 3 mm slice thickness through the abdomen and pelvis. Coronal and sagittal reconstructions at 3 mm slice thickness were performed. No intravenous contrast was administered. Automated mA/kV exposure control was utilized and patient examination was performed in strict accordance with principles of ALARA. FINDINGS: Please note that the evaluation of vessels, lymph nodes and organs is limited without intravenous contrast. LOWER CHEST: Cardiomegaly. Calcifications within the mitral valve. Calcified right hilar lymph nodes No pericardial effusion. Fibrosis within the lung bases ABDOMEN: LIVER: No hepatomegaly. Smooth surface contour. Multiple calcified granulomas BILE DUCTS: No intrahepatic or extrahepatic biliary ductal dilatation. GALLBLADDER: The gallbladder is absent. STOMACH: Moderate amount of food debris within the stomach. PANCREAS: No masses or ductal dilatation. SPLEEN: Multiple calcified granulomas ADRENAL GLANDS: No thickening or nodules. KIDNEYS AND URETERS: Kidneys are normal in size and location. No renal or ureteral calculi. PELVIS: BLADDER: Partially empty REPRODUCTIVE ORGANS: Uterus is absent BOWEL: Colonic diverticulosis. Mild inflammatory changes are present adjacent to the distal descending colon image 96. Negative for bowel obstruction. Constipation. Normal appendix VESSELS: Limited due to timing of the contrast bolus. Duplicated inferior vena cava. Abdominal aorta is normal in caliber. PERITONEUM/RETROPERITONEU M/LYMPH NODES: No free fluid. No pneumoperitoneum. No lymphadenopathy. ABDOMINAL WALL: Small fat-containing umbilical hernia. SOFT TISSUES: No abnormalities identified. BONES: No acute fracture or aggressive osseous lesion. IMPRESSION: Mild acute diverticulitis distal descending colon left lower quadrant. Negative for perforation or abscess. Normal appendix. Signed by Luis Crook MD [facility] CT Abdomen WO contraston Mild acute diverticu litis distal descending colon left lower quadrant. Negative for perforation or abscess. Normal appendix. Signed by Luis Crook MD TELERADIOLOGY STUDY: CT Abdomen and Pelvis without IV Contrast; 03/15/2024, 1305 INDICATION: Abdominal pain, diarrhea. Rule out colitis/diverticulitis. COMPARISON: CT abd 01/11/2024, 12/24/2022. ACCESSION NUMBER(S): [id number] ORDERING CLINICIAN: ROCAEL CORREA TECHNIQUE: CT of the abdomen and pelvis was performed. Contiguous axial images were obtained at 3 mm slice thickness through the abdomen and pelvis. Coronal and sagittal reconstructions at 3 mm slice thickness were performed. No intravenous contrast was administered. Automated mA/kV exposure control was utilized and patient examination was performed in strict accordance with principles of ALARA. FINDINGS: Please note that the evaluation of vessels, lymph nodes and organs is limited without intravenous contrast. LOWER CHEST: Cardiomegaly. Calcifications within the mitral valve. Calcified right hilar lymph nodes No pericardial effusion. Fibrosis within the lung bases ABDOMEN: LIVER: No hepatomegaly. Smooth surface contour. Multiple calcified granulomas BILE DUCTS: No intrahepatic or extrahepatic biliary ductal dilatation. GALLBLADDER: The gallbladder is absent. STOMACH: Moderate amount of food debris within the stomach. PANCREAS: No masses or ductal dilatation. SPLEEN: Multiple calcified granulomas ADRENAL GLANDS: No thickening or nodules. KIDNEYS AND URETERS: Kidneys are normal in size and location. No renal or ureteral calculi. PELVIS: BLADDER: Partially empty REPRODUCTIVE ORGANS: Uterus is absent BOWEL: Colonic diverticulosis. Mild inflammatory changes are present adjacent to the distal descending colon image 96. Negative for bowel obstruction. Constipation. Normal appendix VESSELS: Limited due to timing of the contrast bolus. Duplicated inferior vena cava. Abdominal aorta is normal in caliber. PERITONEUM/RETROPERITONEU M/LYMPH NODES: No free fluid. No pneumoperitoneum. No lymphadenopathy. ABDOMINAL WALL: Small fat-containing umbilical hernia. SOFT TISSUES: No abnormalities identified. BONES: No acute fracture or aggressive osseous lesion. TELERADIOLOGY Luis Crook MD - 03/15/2024 STUDY: CT Abdomen and Pelvis without IV Contrast; 03/15/2024, 1305 INDICATION: Abdominal pain, diarrhea. Rule out colitis/diverticulitis. COMPARISON: CT abd 01/11/2024, 12/24/2022. ACCESSION NUMBER(S): [id number] ORDERING CLINICIAN: ROCAEL CORREA TECHNIQUE: CT of the abdomen and pelvis was performed. Contiguous axial images were obtained at 3 mm slice thickness through the abdomen and pelvis. Coronal and sagittal reconstructions at 3 mm slice thickness were performed. No intravenous contrast was administered. Automated mA/kV exposure control was utilized and patient examination was performed in strict accordance with principles of ALARA. FINDINGS: Please note that the evaluation of vessels, lymph nodes and organs is limited without intravenous contrast. LOWER CHEST: Cardiomegaly. Calcifications within the mitral valve. Calcified right hilar lymph nodes No pericardial effusion. Fibrosis within the lung bases ABDOMEN: LIVER: No hepatomegaly. Smooth surface contour. Multiple calcified granulomas BILE DUCTS: No intrahepatic or extrahepatic biliary ductal dilatation. GALLBLADDER: The gallbladder is absent. STOMACH: Moderate amount of food debris within the stomach. PANCREAS: No masses or ductal dilatation. SPLEEN: Multiple calcified granulomas ADRENAL GLANDS: No thickening or nodules. KIDNEYS AND URETERS: Kidneys are normal in size and location. No renal or ureteral calculi. PELVIS: BLADDER: Partially empty REPRODUCTIVE ORGANS: Uterus is absent BOWEL: Colonic diverticulosis. Mild inflammatory changes are present adjacent to the distal descending colon image 96. Negative for bowel obstruction. Constipation. Normal appendix VESSELS: Limited due to timing of the contrast bolus. Duplicated inferior vena cava. Abdominal aorta is normal in caliber. PERITONEUM/RETROPERITONEU M/LYMPH NODES: No free fluid. No pneumoperitoneum. No lymphadenopathy. ABDOMINAL WALL: Small fat-containing umbilical hernia. SOFT TISSUES: No abnormalities identified. BONES: No acute fracture or aggressive osseous lesion. IMPRESSION: Mild acute diverticulitis distal descending colon left lower quadrant. Negative for perforation or abscess. Normal appendix. Signed by Luis Crook MD [facility] Work Phone: Radiology Study observation (narrative) [facility] Work Phone: CT Abdomen WO contrastOrdere d By: Luis Crook on 03-15-2024 [facility] Work Phone: Clostridioides difficile tox in A+B tcdA+tcdB geneson 03-15-2024 C. difficile toxin A+B tcdA+tcdB genes LAMIN+probe Ql (Stl) Clostridioides difficile toxin A+B tcdA+tcdB genes Not Detected Normal Not Detected [facility] Comment on above: Order Comment: This test is an FDA-cleared real-time PCR assay for detection of toxigenic C. difficile DNA from unprocessed liquid or unformed stool specimens that have not undergone nucleic acid extraction in symptomatic patients with potential C. difficile infection (CDI). A positive result may indicate colonization, and clinical assessment is required for the diagnosis of CDI. This test cannot be performed on formed stools or used as a test of cure, and should not be performed more than once per 7 days. Performed By: #### 8 0685-1 ####ROWE JAY ([id number])[facility] ([facility])[address] [place] [address] Coagulation surface inducedo n 03-15-2024 aPTT Coag (PPP) [Time] 29 s Normal 27-38 [facility] Comment on above: Order Comment: The A PTT is no longer used for monitoring Unfractionated Heparin Therapy. For monitoring Heparin Therapy, use the Heparin Assay. Performed By: #### 1 4979-9 ####JAE THOMPSON ([id number])[facility] ([facility])[address] [place] [address] Coagulation tissue factor in ducedon 03-15-2024 PT Coag (PPP) [Time] 13.0 s High 9.8-12.8 [facility] Comment on above: Performed By: #### 5 902-2 ####JAE THOMPSON ([id number])[facility] ([facility])[address] [place] [address] 73599 Critical Careon 03-15-2024 Rocael Correa MD 03/15/2024 3:11 PM Critical Care Performed by: Rocael Correa MD Authorized by: Rocael Correa MD Critical care provider statement: Critical care time (minutes): 32 Critical care was necessary to treat or prevent imminent or life-threatening deterioration of the following conditions: She had bradycardia with syncope. Critical care was time spent personally by me on the following activities: Blood draw for specimens, development of treatment plan with patient or surrogate, discussions with primary provider, evaluation of patient's response to treatment, examination of patient, obtaining history from patient or surrogate, ordering and performing treatments and interventions, ordering and review of laboratory studies, ordering and review of radiographic studies, pulse oximetry and re-evaluation of patient's condition [facility] Work Phone: [facility] Work Phone: ECG 12 leadOrdered By: Marisa Yoon on 03-15-2024 Atrial Rate 43 BPM [facility] Work Phone: P Murray 0 degrees [facility] Work Phone: P Offset 206 ms [facility] Work Phone: P Onset 148 ms [facility] Work Phone: [place] Interval 134 ms [facility] Work Phone: Q Onset 215 ms [facility] Work Phone: QRS Count 7 beats [facility] Work Phone: QRS Duration 84 ms [facility] Work Phone: QT Interval 500 ms [facility] Work Phone: QTC Calculation(Bazett) 422 ms [facility] Work Phone: QTC Fredericia 447 ms [facility] Work Phone: R Murray -5 degrees [facility] Work Phone: T Murray 7 degrees [facility] Work Phone: T Offset 465 ms [facility] Work Phone: Ventricular [facility] Work Phone: ECG 12 leadon 03-15-2024 Marked sinus bradyca rdia Abnormal ECG When compared with ECG of 21-FEB-2024 23:52, Vent. rate has decreased BY 23 BPM See ED provider note for full interpretation and clinical correlation Confirmed by Marisa Yoon ([id number]) on 03/15/2024 12:28:21 PM MUSE Marisa Yoon PA-C - 03/15/2024 Marked sinus bradycardia Abnormal ECG When compared with ECG of 21-FEB-2024 23:52, Vent. rate has decreased BY 23 BPM See ED provider note for full interpretation and clinical correlation Confirmed by Marisa Yoon ([id number]) on 03/15/2024 12:28:21 PM [facility] Work Phone: ECG 12-LEADon 03-15-2024 ECG 12-LEAD Ventricular Rate 43 Atrial Rate 43 P-R Interval 134 QRS Duration 84 Q-T Interval 500 QTC Calculation(Bazett) 422 P Murray 0 R Murray -5 T Murray 7 QRS Count 7 Q Onset 215 P Onset 148 P Offset 206 T Offset 465 QTC Fredericia 447 Diagnosis Marked sinus bradycardia Abnormal ECG When compared with ECG of 21-FEB-2024 23:52, Vent. rate has decreased BY 23 BPM See ED provider note for full interpretation and clinical correlation Confirmed by Marisa Yoon ([id number]) on 03/15/2024 12:28:21 PM Normal [facility] FLUAV and FLUBV RNA LAMIN+prob e Nom (Unsp spec)on 03-15-2024 FLUAV RNA LAMIN+probe Ql (Resp) Not detected Not Detected [facility] FLUBV RNA LAMIN+probe Ql (Resp) Not detected Not Detected [facility] This assay is an in vitro diagnostic multiplex nucleic acid amplification test for the detection and discrimination of Influenza A & B from nasopharyngeal specimens, and has been validated for use at [facility]. Negative results do not preclude Influenza A/B infections, and should not be used as the sole basis for diagnosis, treatment, or other management decisions. If Influenza A/B and RSV PCR results are negative, testing for Parainfluenza virus, Adenovirus and Metapneumovirus is routinely performed for [facility] pediatric oncology and intensive care inpatients, and is available on other patients by placing an add-on request. [facility] FLUAV RNA LAMIN+probe Ql (Resp) Not detected Normal Not Detected [facility] Comment on above: Order Comment: This assay is an in vitro diagnostic multiplex nucleic acid amplification test for the detection and discrimination of Influenza A & B from nasopharyngeal specimens, and has been validated for use at [facility]. Negative results do not preclude Influenza A/B infections, and should not be used as the sole basis for diagnosis, treatment, or other management decisions. If Influenza A/B and RSV PCR results are negative, testing for Parainfluenza virus, Adenovirus and Metapneumovirus is routinely performed for [facility] pediatric oncology and intensive care inpatients, and is available on other patients by placing an add-on request. Performed By: #### 4 8509-4 ####ROWE JAY ([id number])[facility] ([facility])[address] [place] [address] FLUBV RNA LAMIN+probe Ql (Resp) Not detected Normal Not Detected [facility] Comment on above: Order Comment: This assay is an in vitro diagnostic multiplex nucleic acid amplification test for the detection and discrimination of Influenza A & B from nasopharyngeal specimens, and has been validated for use at [facility]. Negative results do not preclude Influenza A/B infections, and should not be used as the sole basis for diagnosis, treatment, or other management decisions. If Influenza A/B and RSV PCR results are negative, testing for Parainfluenza virus, Adenovirus and Metapneumovirus is routinely performed for [facility] pediatric oncology and intensive care inpatients, and is available on other patients by placing an add-on request. Performed By: #### 4 8509-4 ####ROWE JAY ([id number])[facility] ([facility])[address] [place] [address] Gastrointestinal pathogens i dentified 03-15-2024 Gastrointestinal pathogens identified LAMIN+probe Nom (Stl) Campylobacter coli+jejuni+upsaliensis DNA Not Detected Salmonella sp DNA Not Detected Shigella sp DNA Not Detected Vibrio cholerae DNA Not Detected Yersinia enterocolitica DNA Not Detected Escherichia coli Stx1 toxin stx1 gene Not Detected Escherichia coli Stx2 toxin stx2 gene Not Detected Norovirus genogroup I AND II RNA Not Detected Rotavirus RNA Not Detected Normal Not Detected [facility] Comment on above: Performed By: #### 7 9390-1 ####SAUNDRA Nash ([id number])[facility] ([facility])[address] [place] [address] Topo 03-15-2024 Extra Tube Hold for add-ons. [facility] Comment on above: Auto resulted. [facility] Hepatic function 2000 panelo n 03-15-2024 Albumin BCP dye [Mass/Vol] 3.9 g/dL 3.4 - 5.0 g/dL [facility] ALP [Catalytic activity/Vol] 56 U/L 33 - 136 U/L [facility] ALT With P-5'-P [Catalytic activity/Vol] 8 U/L 7 - 45 U/L [facility] Comment on above: Patients treated wit h Sulfasalazine may generate falsely decreased results for ALT. AST With P-5'-P [Catalytic activity/Vol] 13 U/L 9 - 39 U/L [facility] Bilirubin [Mass/Vol] 0.5 mg/dL 0.0 - 1 .2 mg/dL [facility] Bilirubin.direct [Mass/Vol] 0 mg/dL 0.0 - 0.3 mg/dL [facility] Protein [Mass/Vol] 6.3 g/dL Low 6.4 - 8.2 g/dL [facility] Albumin BCP dye [Mass/Vol] 3.9 g/dL Normal 3.4-5.0 [facility] Comment on above: Performed By: #### 2 5-3 ####JAE THOMPSON ([id number])[facility] ([facility])[address] [place] [address]707 ALP [Catalytic activity/Vol] 56 U/L Normal 33-136 [facility] Comment on above: Performed By: #### 2 4324-3 ####JAE THOMPSON ([id number])[facility] ([facility])[address] [place] [address] 52124 ALT With P-5'-P [Catalytic activity/Vol] 8 U/L Normal 7-45 [facility] Comment on above: Result Comment: Madelyn ents treated with Sulfasalazine may generate falsely decreased results for ALT. Performed By: #### 2 5-3 ####JAE THOMPSON ([id number])[facility] ([facility])[address] [place] [address] 62504 AST With P-5'-P [Catalytic activity/Vol] 13 U/L Normal 9-39 [facility] Comment on above: Performed By: #### 2 5-3 ####JAE THOMPSON ([id number])[facility] ([facility])[address] [place] [address] 78214 Bilirubin [Mass/Vol] 0.5 mg/dL Normal 0.0-1.2 [facility] Comment on above: Performed By: #### 2 4325-3 ####JAE THOMPSON ([id number])[facility] ([facility])[address] [place] [address]73 Bilirubin.direct [Mass/Vol] 0.0 mg/dL Normal 0.0-0.3 [facility] Comment on above: Performed By: #### 2 4325-3 ####JAE THOMPSON ([id number])[facility] ([facility] [place] [address] Protein [Mass/Vol] 6.3 g/dL Low 6.4-8.2 [facility] Comment on above: Performed By: #### 2 4325-3 ####JAE THOMPSON ([id number])[facility] ([facility])[address] [place] [address] 58660 Legionella sp Agon Legionella sp Ag Ql (U) Negative Normal Negative [facility] Comment on above: Order Comment: Urine Container-Refrigerate Performed By: #### 5 7021-8 #### JAE THOMPSON ([id number]) [facility] ([facility]) [address] [place] [address]23 Lipaseon 03-15-2024 Lipase [Catalytic activity/Vol] 12 U/L 9 - 82 U/L [facility] Lipase [Catalytic activity/V ol]on 03-15-2024 Interpretation and review of laboratory results Normal [facility] Venipuncture immedia tely after or during the administration of Metamizole may lead to falsely low results. Testing should be performed immediately prior to Metamizole dosing. [facility] Natriuretic peptide B [Mass/ Vol]on 03-15-2024 Interpretation and review of laboratory results Abnormal [facility] Natriuretic peptide B (Bld) [Mass/Vol] 240 pg/mL High 0 - 99 pg/mL [facility] <100 pg/mL - Heart failure unlikely 100-299 pg/mL - Intermediate probability of acute heart failure exacerbation. Correlate with clinical context and patient history. >=300 pg/mL - Heart Failure likely. Correlate with clinical context and patient history. BNP testing is performed using different testing methodology at [facility] than at other [facility]. Direct result comparisons should only be made within the same method. [facility] Natriuretic peptide B (Bld) [Mass/Vol] 240 pg/mL High 0-99 [facility] Comment on above: Order Comment: <100 pg/mL - Heart failure [id number] pg/mL - Intermediate probability of acute heart failure exacerbation. Correlate with clinical context and patient history. >=300 pg/mL - Heart Failure likely. Correlate with clinical context and patient history.BNP testing is performed using different testing methodology at [facility] than at other [facility]. Direct result comparisons should only be made within the same method. Performed By: #### 3 0934-4 ####JAE THOMPSON ([id number])[facility] ([facility])[address] [place] [address] No Panel Informationon 03-15 Interpretation and review of laboratory results Abnormal [facility] Interpretation and review of laboratory results Normal [facility] Interpretation and review of laboratory results Abnormal [facility] PT Coag (PPP) [Time]on 03-15 INR Coag (PPP) [Relative time] 1.1 {INR} 0.9 - 1.1 [facility] Interpretation and review of laboratory results Abnormal [facility] INR Coag (PPP) [Relative time] 1.1 Normal 0.9-1.1 [facility] Comment on above: Performed By: #### 5 902-2 ####JAE THOMPSON ([id number])[facility] ([facility])[address] [place] [address] Protime-INRon 03-15-2024 PT Coag (PPP) [Time] 13 s [facility] SARS coronavirus 2 RNAon SARS-CoV-2 (COVID-19) RNA LAMIN+probe Ql (Resp) Not detected Normal Not Detected [facility] Comment on above: Order Comment: This assay has received FDA Emergency Use Authorization (EUA) and is only authorized for the duration of time that circumstances exist to justify the authorization of the emergency use of in vitro diagnostic tests for the detection of SARS-CoV-2 virus and/or diagnosis of COVID-19 infection under section 564(b)(1) of the Act, 21 U.S.C. 360bbb-3(b)(1). This assay is an in vitro diagnostic nucleic acid amplification test for the qualitative detection of SARS-CoV-2 from nasopharyngeal specimens and has been validated for use at [facility]. Negative results do not preclude COVID-19 infections and should not be used as the sole basis for diagnosis, treatment, or other management decisions. Performed By: #### 9 4500-6 ####JAE THOMPSON ([id number])[facility] ([facility])[address] [place] [address] SARS-CoV-2 (COVID-19) RNA NA A+probe Ql (Resp)on 03-15-2024 This assay has recei lindsay FDA Emergency Use Authorization (EUA) and is only authorized for the duration of time that circumstances exist to justify the authorization of the emergency use of in vitro diagnostic tests for the detection of SARS-CoV-2 virus and/or diagnosis of COVID-19 infection under section 564(b)(1) of the Act, 21 U.S.C. 360bbb-3(b)(1). This assay is an in vitro diagnostic nucleic acid amplification test for the qualitative detection of SARS-CoV-2 from nasopharyngeal specimens and has been validated for use at [facility]. Negative results do not preclude COVID-19 infections and should not be used as the sole basis for diagnosis, treatment, or other management decisions. [facility] [facility] S[facility]-2 PCRon 03-15-2024 SARS-CoV-2 (COVID-19) RNA LAMIN+probe Ql (Resp) Not detected Not Detected [facility] Streptococcus pneumoniae Ago n 03-15-2024 S. pneumoniae Ag Ql (U) Negative Normal Negative [facility] Comment on above: Performed By: #### 5 7021-8 #### JAE THOMPSON ([id number]) [facility] ([facility]) [address] [place] [address] Triacylglycerol lipaseon Lipase [Catalytic activity/Vol] 12 U/L Normal 9-82 [facility] Comment on above: Order Comment: Venip uncture immediately after or during the administration of Metamizole may lead to falsely low results. Testing should be performed immediately prior to Metamizole dosing. Performed By: #### 3 040-3 ####JAE THOMPSON ([id number])[facility] ([facility])[address] [place] [address] Tropinin I.cardiac panel Hig h sensitivity methodon 03-15-2024 Interpretation and review of laboratory results Normal [facility] Less than 99th perce ntile of normal range cutoff- Female and children under 18 years old <14 ng/L; Male <21 ng/L: Negative Repeat testing should be performed if clinically indicated. Female and children under 18 years old 14-50 ng/L; Male 21-50 ng/L: Consistent with possible cardiac damage and possible increased clinical risk. Serial measurements may help to assess extent of myocardial damage. >50 ng/L: Consistent with cardiac damage, increased clinical risk and myocardial infarction. Serial measurements may help assess extent of myocardial damage. NOTE: Children less than 1 year old may have higher baseline troponin levels and results should be interpreted in conjunction with the overall clinical context. NOTE: Troponin I testing is performed using a different testing methodology at [facility] than at other [facility]. Direct result comparisons should only be made within the same method. [facility] Interpretation and review of laboratory results Normal [facility] Less than 99th perce ntile of normal range cutoff- Female and children under 18 years old <14 ng/L; Male <21 ng/L: Negative Repeat testing should be performed if clinically indicated. Female and children under 18 years old 14-50 ng/L; Male 21-50 ng/L: Consistent with possible cardiac damage and possible increased clinical risk. Serial measurements may help to assess extent of myocardial damage. >50 ng/L: Consistent with cardiac damage, increased clinical risk and myocardial infarction. Serial measurements may help assess extent of myocardial damage. NOTE: Children less than 1 year old may have higher baseline troponin levels and results should be interpreted in conjunction with the overall clinical context. NOTE: Troponin I testing is performed using a different testing methodology at [facility] than at other [facility]. Direct result comparisons should only be made within the same method. [facility] Troponin I, High Sensitivity , Initialon 03-15-2024 Tropinin I.cardiac panel High sensitivity method 3 ng/L 0 - 13 ng/L [facility] Troponin I.cardiac panelon 1 05-16-2023 Tropinin I.cardiac panel High sensitivity method 3 ng/L Normal 0-13 [facility] Comment on above: Order Comment: Less than 99th percentile of normal range cutoff-Female and children under 18 years old <14 ng/L; Male <21 ng/L: NegativeRepeat testing should be performed if clinically indicated.Female and children under 18 years old 14-50 ng/L; Male 21-50 ng/L:Consistent with possible cardiac damage and possible increased clinicalrisk. Serial measurements may help to assess extent of myocardial damage.>50 ng/L: Consistent with cardiac damage, increased clinical risk andmyocardial infarction. Serial measurements may help assess extent ofmyocardial damage.NOTE: Children less than 1 year old may have higher baseline troponinlevels and results should be interpreted in conjunction with the overallclinical context.NOTE: Troponin I testing is performed using a differenttesting methodology at [facility] than at [facility]. Direct result comparisons should onlybe made within the same method. Performed By: #### 8 9577-1 ####ROWE JAY ([id number])[facility] ([facility])[address] [place] [address] Tropinin I.cardiac panel High sensitivity method 3 ng/L Normal 0-13 [facility] Comment on above: Order Comment: Less than 99th percentile of normal range cutoff-Female and children under 18 years old <14 ng/L; Male <21 ng/L: NegativeRepeat testing should be performed if clinically indicated.Female and children under 18 years old 14-50 ng/L; Male 21-50 ng/L:Consistent with possible cardiac damage and possible increased clinicalrisk. Serial measurements may help to assess extent of myocardial damage.>50 ng/L: Consistent with cardiac damage, increased clinical risk andmyocardial infarction. Serial measurements may help assess extent ofmyocardial damage.NOTE: Children less than 1 year old may have higher baseline troponinlevels and results should be interpreted in conjunction with the overallclinical context.NOTE: Troponin I testing is performed using a differenttesting methodology at [facility] than at [facility]. Direct result comparisons should onlybe made within the same method. Performed By: #### 8 9577-1 ####ROWE JAY ([id number])[facility] ([facility])[address] [place], [place] [id number] Troponin, High Sensitivity, 1 Houron 03-15-2024 Tropinin I.cardiac panel High sensitivity method 3 ng/L 0 - 13 ng/L [facility] Urinalysis complete W Reflex Culture panel (U)on 03-15-2024 Appearance (U) Clear Clear [facility] Bilirubin (U) [Mass/Vol] Negative NEGATIVE [facility] Color (U) Light-Yellow Light-Dimmit ow, Yellow, Dark-Yello w [facility] Glucose Auto test strip (U) [Mass/Vol] Normal Normal mg/dL [facility] Ketones (U) [Mass/Vol] Negative NEGATIVE mg/dL [facility] Leukocyte esterase Auto test strip Ql (U) 250 Sarah/ L Abnormal NEGATIVE [facility] Nitrite Auto test strip Ql (U) Negative NEGATIVE [facility] pH (U) 6.5 [pH] 5.0, 5.5, 6.0, 6.5, 7.0, 7.5, 8.0 [facility] Protein (U) [Mass/Vol] Negative NEGATIVE, 10 (TRACE), 20 (TRACE) mg/dL [facility] RBC (U) [#/Vol] Negative NEGATIVE [facility] Specific gravity (U) [Rel density] 1.015 1.005 - 1.035 [facility] Urobilinogen (U) [Mass/Vol] Normal Normal mg/dL [facility] Appearance (U) Clear Normal Clear [facility] Comment on above: Performed By: #### 5 8077-9 ####JAE THOMPSON ([id number])[facility] ([facility])[address] [place] [address] Bilirubin (U) [Mass/Vol] Negative Normal NEGATIVE [facility] Comment on above: Performed By: #### 5 8077-9 ####JAE THOMPSON ([id number])[facility] ([facility])[address] [place], [place] [address] Color (U) Light-Yellow Normal Light-Dimmit ow, Yellow, Dark-Yello w [facility] Comment on above: Performed By: #### 5 8077-9 ####JAE THOMPSON ([id number])[facility] ([facility])[address] [place] [address] Glucose Auto test strip (U) [Mass/Vol] Normal Normal Normal [facility] Comment on above: Performed By: #### 5 8077-9 ####JAE THOMPSON ([id number])[facility] ([facility])[address] [place] [address] Ketones (U) [Mass/Vol] Negative Normal NEGATIVE [facility] Comment on above: Performed By: #### 5 8077-9 ####JAE THOMPSON ([id number])[facility] ([facility])[address] [place] [address] Leukocyte esterase Auto test strip Ql (U) 250 Sarah/???L Abnormal NEGATIVE [facility] Comment on above: Performed By: #### 5 8077-9 ####JAE THOMPSON ([id number])[facility] ([facility])[address] [place] [address] Nitrite Auto test strip Ql (U) Negative Normal NEGATIVE [facility] Comment on above: Performed By: #### 5 8077-9 ####JAE THOMPSON ([id number])[facility] ([facility])[address] [place] [address] pH (U) 6.5 [pH] Normal 5.0, 5.5, 6.0, 6.5, 7.0, 7.5, 8.0 [facility] Comment on above: Performed By: #### 5 8077-9 ####JAE THOMPSON ([id number])[facility] ([facility])[address] [place] [address] Protein (U) [Mass/Vol] Negative Normal NEGATIVE, 10 (TRACE), 20 (TRACE) [facility] Comment on above: Performed By: #### 5 8077-9 ####JAE THOMPSON ([id number])[facility] ([facility])[address] [place] [address] RBC (U) [#/Vol] Negative Normal NEGATIVE [facility] Comment on above: Performed By: #### 5 8077-9 ####JAE THOMPSON ([id number])[facility] ([facility])[address] [place] [address] Specific gravity (U) [Rel density] 1.015 Normal 1.005-1.[address] [place] [address] Comment on above: Performed By: #### 5 8077-9 ####JAE THOMPSON ([id number])[facility] ([facility])[address] [place] [address] Urobilinogen (U) [Mass/Vol] Normal Normal Normal [facility] Comment on above: Performed By: #### 5 8077-9 ####JAE THOMPSON ([id number])[facility] ([facility])[address] [place] [address] Urinalysis microscopic panel Auto Ql (U)on 03-15-2024 Bacteria Auto (Urine sed) [#/Area] 1+ Abnormal NONE SEEN /HPF [facility] Crystals.amorphous Computer assisted (U) [#/Area] 1+ NONE, 1+, 2+ /HPF [facility] Epithelial cells.squamous Auto (Urine sed) [#/Area] 1-9 (SPARSE) Reference range not establishe d. /HPF [facility] Mucus Auto (Urine sed) [#/Area] FEW Reference range not establishe d. /LPF [facility] RBC Auto (Urine sed) [#/Area] 1-2 NONE, 1-2, 3-5 /HPF [facility] WBC Auto (Urine sed) [#/Area] 6-10 Abnormal 1-5, NONE /HPF [facility] Bacteria Auto (Urine sed) [#/Area] 1+ /HPF Abnormal NONE SEEN [facility] Comment on above: Performed By: #### 5 3315-8 ####JAE THOMPSON ([id number])[facility] ([facility])[address] [place] [address] Crystals.amorphous Computer assisted (U) [#/Area] 1+ /HPF Normal NONE, 1+, 2+ [facility] Comment on above: Performed By: #### 5 3315-8 ####JAE THOMPSON ([id number])[facility] ([facility])[address] [place] [address] Epithelial cells.squamous Auto (Urine sed) [#/Area] 1-9 (SPARSE) Normal Reference range not establishe d. [facility] Comment on above: Performed By: #### 5 3315-8 ####JAE THOMPSON ([id number])[facility] ([facility])[address] [place] [address] Mucus Auto (Urine sed) [#/Area] FEW Normal Reference range not establishe d. [facility] Comment on above: Performed By: #### 5 3315-8 ####JAE THOMPSON ([id number])[facility] ([facility])[address] [place] [address] RBC Auto (Urine sed) [#/Area] 1-2 Normal NONE, 1-2, 3-5 [facility] Comment on above: Performed By: #### 5 3315-8 ####JAE THOMPSON ([id number])[facility] ([facility])[address] [place] [address] WBC Auto (Urine sed) [#/Area] 6-10 Abnormal 1-5, NONE [facility] Comment on above: Performed By: #### 5 3315-8 ####JAE THOMPSON ([id number])[facility] ([facility])[address] [place] [address] XR CHEST 1 VIEWon 03-15-2024 XR CHEST 1 VIEW STUDY: Chest Radiograph; 03/15/2024 12:19PM INDICATION: Syncope. COMPARISON: 12/24/2022 XR Ribs with Chest, 12/23/2021 XR Chest, 08/20/2021 XR Chest ACCESSION NUMBER(S): [id number] ORDERING CLINICIAN: ROCAEL CORREA TECHNIQUE: Frontal chest was obtained at 12:18 hours. FINDINGS: CARDIOMEDIASTINAL SILHOUETTE: Heart is enlarged with increased pulmonary vascularity. LUNGS: Peripheral patchy opacities in the lung bases right greater than left, new compared to remote prior from 12/24/2022. ABDOMEN: No remarkable upper abdominal findings. BONES: No acute osseous changes. IMPRESSION: Peripheral patchy opacities in the lung bases right greater than left, new compared to remote prior from 12/24/2022. Correlate clinically for pneumonia. Signed by Jordan Modi MD [facility] XR Chest Single viewon 03-15 Peripheral patchy opacities in the lung bases right greater than left, new compared to remote prior from 12/24/2022. Correlate clinically for pneumonia. Signed by Jordan Modi MD TELERADIOLOGY STUDY: Chest Radiograph; 03/15/2024 12:19PM INDICATION: Syncope. COMPARISON: 12/24/2022 XR Ribs with Chest, 12/23/2021 XR Chest, 08/20/2021 XR Chest ACCESSION NUMBER(S): [id number] ORDERING CLINICIAN: ROCAEL CORREA TECHNIQUE: Frontal chest was obtained at 12:18 hours. FINDINGS: CARDIOMEDIASTINAL SILHOUETTE: Heart is enlarged with increased pulmonary vascularity. LUNGS: Peripheral patchy opacities in the lung bases right greater than left, new compared to remote prior from 12/24/2022. ABDOMEN: No remarkable upper abdominal findings. BONES: No acute osseous changes. TELERADIOLOGY Jordan Modi MD - 03/15/2024 STUDY: Chest Radiograph; 03/15/2024 12:19PM INDICATION: Syncope. COMPARISON: 12/24/2022 XR Ribs with Chest, 12/23/2021 XR Chest, 08/20/2021 XR Chest ACCESSION NUMBER(S): [id number] ORDERING CLINICIAN: ROCAEL CORREA TECHNIQUE: Frontal chest was obtained at 12:18 hours. FINDINGS: CARDIOMEDIASTINAL SILHOUETTE: Heart is enlarged with increased pulmonary vascularity. LUNGS: Peripheral patchy opacities in the lung bases right greater than left, new compared to remote prior from 12/24/2022. ABDOMEN: No remarkable upper abdominal findings. BONES: No acute osseous changes. IMPRESSION: Peripheral patchy opacities in the lung bases right greater than left, new compared to remote prior from 12/24/2022. Correlate clinically for pneumonia. Signed by Jordan Modi MD [facility] Work Phone: Radiology Study observation (narrative) [facility] Work Phone: XR Chest Single viewOrdered By: Jordan Modi on 03-15-2024 [facility] Work Phone: aPTT Coag (PPP) [Time]on Interpretation and review of laboratory results Normal [facility] The APTT is no longe r used for monitoring Unfractionated Heparin Therapy. For monitoring Heparin Therapy, use the Heparin Assay. [facility] Bacteria identified Cx Nom ( U)Ordered By: Tutu Martinez on 03-09-2024 [facility] Silver 03-09-2024 CNPN Telephone (INTMWS) ----- WHITNEY RUIZ ([id number]) 1945 F CHT Date Time Provider Department 03/09/24 KRISTY BROWER INTMWS During your visit today, we recorded the following information about you: Xuan Pinzon LPN 03/09/2024 12:04 PM Signed Janee from [facility] calling, they sent a fax yesterday for patients CPAP supplies. Asking if it was received. If not please call her back at [phone] ext [phone]. You can leave a detailed message on her confidential VM. Avelina Carter LPN 03/11/2024 11:42 AM Signed Rec'd. To pcp to sign. Avelina Carter LPN 03/11/2024 1:23 PM Signed Signed and faxed back. Allergies As of Date: 03/09/2024 Noted Allergy Reaction CODEINE 04/24/2006 12 - Shortness of Breath VICODIN (HYDROCODONE-ACETAMINOPHE *08/10/2006 5 - Intolerance Comments: cardiac arrest ADHESIVE 03/27/2010 2 - Rash AUGMENTIN (AMOXICILLIN-POT CLAVUL*03/09/2012 12 - Shortness of Breath Comments: Called and complained that caused SOB BIAXIN (CLARITHROMYCIN) 02/16/2013 1 - Mental Status Change CARDIZEM (DILTIAZEM) 03/16/2019 5 - Intolerance Comments: itching CIPROFLOXACIN 08/04/2013 14 - Other: See Comments Comments: Muscle pain CLONIDINE 07/06/2013 5 - Intolerance Comments: low heart rate to 42; BP also dropped; tried patch and was okay for a while but then stopped since affected thinking COREG (CARVEDILOL) 10/04/2019 5 - Intolerance Comments: grumpy, runny nose CRESTOR (ROSUVASTATIN CALCIUM) 09/11/2009 5 - Intolerance Comments: muscle aches all over CYMBALTA (DULOXETINE) 08/14/2014 14 - Other: See Comments Comments: Elevated BP and blood sugar went up DICYCLOMINE 05/19/2013 12 - Shortness of Breath DIOVAN (VALSARTAN) 11/17/2017 7 - Swelling Comments: In feet, legs AND ankles DOXYCYCLINE 03/11/2012 11 - Vomiting Comments: Vomiting after the first dose, intense. FLAGYL (METRONIDAZOLE) 02/16/2013 9 - Itching GUAIFENESIN-SODIUM CITRATE 04/24/2006 5 - Intolerance Comments: jittery LEVOFLOXACIN 08/04/2013 14 - Other: See Comments Comments: Muscle pain LOSARTAN 10/04/2019 14 - Other: See Comments Comments: Made me lose hair. Low back pain, stomach upset LOVASTATIN 09/11/2009 5 - Intolerance Comments: Muscle aches all over MOBIC (MELOXICAM) 10/12/2007 Comments: lips swell MORPHINE 10/06/2011 9 - Itching Comments: possibly was from the IV or tape since was from IV morphine; only affected arm of hand had IV in NIFEDIPINE 03/16/2019 5 - Intolerance Comments: palpitations; also to see if runny nose resolved (did not) NORVASC (AMLODIPINE BESYLATE) 10/20/2017 7 - Swelling SULFA (SULFONAMIDE ANTIBIOTICS) 04/24/2006 2 - Rash ULTRAVIST (IOPROMIDE) 01/18/2010 14 - Other: See Comments Comments: Pt sts with previous cat scan she had delayed chest tightness Date Reviewed: 03/08/2024 Reviewed by: Jackelin Lares PA-C - Fully Assessed Reason for Visit: Orders [681] Prescriptions as of 03/11/2024 - CPAP Continue settings of Auto PAP to 5-15 cm of water with humidification. Continue orders for: Mask (per patient preference) optional chin strap (if indicated) , filters, tubing, humidifier and lifetime supplies. - famotidine (PEPCID) 40 mg tablet Take 40 mg by mouth once daily. - sucralfate (CARAFATE) 1 gram tablet Take 1 g by mouth three times a day. - fluconazole (DIFLUCAN) 150 mg tablet Take 150 mg by mouth. - potassium chloride (K-TAB) 10 mEq tablet Take 1 tablet by mouth once daily as needed (When taking diuretic). DAILY - hydrocortisone 2.5 % cream Apply 1 application to affected area three times a day as needed (itchy skin lesion on chest). Apply thin layer as directed - torsemide (DEMADEX) 10 mg tablet Take 1 tablet by mouth once daily as needed (edema). - Simethicone 125 mg chewable tablet Take 1 tablet by mouth every 6 hours as needed. - blood sugar diagnostic (BLOOD GLUCOSE TEST) test strip Test blood sugar 1 time daily. Dx: Type 2 DM - Controlled E11.9 Insulin: No. - Lancets Test blood sugar(s) 2 times daily and as needed. To go with lancet pen with glucometer Dx: Type 2 DM - Controlled E11.9 Insulin: No - fluticasone (FLONASE) 50 mcg/actuation nasal spray Use 1-2 Sprays in each nostril once daily as needed for cold/allergy symptoms. Takes daily as needed - metoprolol tartrate, short acting, (LOPRESSOR) 50 mg tablet Take 1 tablet by mouth two times a day. - flash glucose sensor (FREESTYLE ALEX 2 SENSOR) kit 1 Each every 2 weeks. E11.9 DM type 2, Insulin: No - furosemide (LASIX) 10 mg/mL solution Take by mouth as directed. - azelastine 0.1% nasal spray Use 1 Coleman in each nostril twice daily. - mecobalamin (B12 ACTIVE ORAL) Take by mouth. - omeprazole (PRILOSEC) 20 mg capsule Take 1 capsule by mouth once daily. as directed - flash glucose scanning reader (FREESTYLE ALEX 2 READER) Check sugars at least 4 times daily - albuterol HF (more content not included)... Normal [facility] URINE CULTUREOrdered By: Ellis Martinez on 03-09-2024 Bacteria identified Cx Nom (U) 10,000 -<50,000 CFU/ml Normal urogenital noah [facility] Bacteria Ur Culton Bacteria identified Cx Nom (U) ORGANISM ID: 1 10,000 -<50,000 CFU/ml Normal urogenital noah Normal [facility] Comment on above: Performed By: #### 6 30-4 ####[facility] LABCLIA [id number] [place] [address] [place] CBC W Auto Differential pane l (Bld)on 03-08-2024 Basophils (Bld) [#/Vol] 0.04 10*3/uL [facility] Basophils/100 WBC (Bld) 0.5 % [facility] Differential cell count method Nom (Bld) Auto [facility] Eosinophils (Bld) [#/Vol] 0.21 10*3/uL [facility] Eosinophils/100 WBC (Bld) 2.7 % [facility] Erythrocyte distribution width (RBC) [Ratio] 13.5 % 11.5 - 15.0 % [facility] Hematocrit (Bld) [Volume fraction] 39.0 % 36.0 - 46.0 % [facility] Hemoglobin (Bld) [Mass/Vol] 12.6 g/dL 11.5 - 15.5 g/dL [facility] Immature granulocytes (Bld) [#/Vol] [facility] Immature granulocytes/100 WBC (Bld) 0.3 % [facility] Interpretation and review of laboratory results Abnormal [facility] Lymphocytes (Bld) [#/Vol] 1.73 10*3/uL [facility] Lymphocytes/100 WBC (Bld) 22.5 % [facility] MCH (RBC) [Entitic mass] 29.2 pg 26.0 - 34.0 pg [facility] MCHC (RBC) [Mass/Vol] 32.3 g/dL 30.5 - 36.0 g/dL [facility] MCV (RBC) [Entitic vol] 90.5 fL 80.0 - 100.0 fL [facility] Monocytes (Bld) [#/Vol] 0.90 10*3/uL High NINF [facility] Monocytes/100 WBC (Bld) 11.7 % [facility] Neutrophils (Bld) [#/Vol] 4.80 10*3/uL [facility] Neutrophils/100 WBC (Bld) 62.3 % [facility] Nucleated RBC (Bld) [#/Vol] NINF [facility] Nucleated RBC/100 WBC (Bld) [Ratio] 0.0 % /100 WBC [facility] Platelet mean volume (Bld) [Entitic vol] 9.8 fL 9.0 - 12.7 fL [facility] Platelets (Bld) [#/Vol] 294 10*3/uL [facility] RBC (Bld) [#/Vol] 4.31 10*6/uL 3.90 - 5.20 m/uL [facility] WBC (Bld) [#/Vol] 7.70 10*3/uL [facility] Basophils (Bld) [#/Vol] 0.04 10*3/uL Normal <0.11 [facility] Comment on above: Order Comment: Speci men Type: BLOOD SPECIMENOrdering Facility: [facility] Address: [address] [place] [address] Performed By: #### 5 7021-8 ####[facility] LABIA [id number] [place] [address] [place] Basophils/100 WBC (Bld) 0.5 % Normal [facility] Comment on above: Order Comment: Speci men Type: BLOOD SPECIMENOrdering Facility: [facility] Address: [address] [place] [address] Performed By: #### 5 7021-8 ####[facility] LABCLIA [id number] [place] [address] [place] Differential cell count method Nom (Bld) Auto Normal [facility] Comment on above: Order Comment: Speci men Type: BLOOD SPECIMENOrdering Facility: [facility] Address: [address] [place] [address] Performed By: #### 5 7021-8 ####[facility] LABCLIA [id number] [place] [address] [place] Eosinophils (Bld) [#/Vol] 0.21 10*3/uL Normal <0.46 [facility] Comment on above: Order Comment: Speci men Type: BLOOD SPECIMENOrdering Facility: [facility] Address: [address] [place] [address] Performed By: #### 5 7021-8 ####[facility] LABCLIA [id number] [place] [address] [place] Eosinophils/100 WBC (Bld) 2.7 % Normal [facility] [facility] Comment on above: Order Comment: Speci men Type: BLOOD SPECIMENOrdering Facility: [facility] Address: [address] [place] [address] Performed By: #### 5 7021-8 ####[facility] LABIA [id number] [place] [address] [place] Erythrocyte distribution width (RBC) [Ratio] 13.5 % Normal 11.5-15.0 [facility] Comment on above: Order Comment: Speci men Type: BLOOD SPECIMENOrdering Facility: [facility] Address: [address] [place] [address] Performed By: #### 5 7021-8 ####[facility] LABIA [id number] [place] [address] [place] Hematocrit (Bld) [Volume fraction] 39.0 % Normal 36.0-46.0 [facility] Comment on above: Order Comment: Speci men Type: BLOOD SPECIMENOrdering Facility: [facility] Address: [address] [place] [address] Performed By: #### 5 7021-8 ####[facility] LABIA [id number] [place] [address] [place] Hemoglobin (Bld) [Mass/Vol] 12.6 g/dL Normal 11.5-15.5 [facility] Comment on above: Order Comment: Speci men Type: BLOOD SPECIMENOrdering Facility: [facility] Address: [address] [place] [address] Performed By: #### 5 7021-8 ####[facility] LABCLIA [id number] [place] [address] [place] Immature granulocytes (Bld) [#/Vol] 10*3/uL Normal <0.10 [facility] Comment on above: Order Comment: Speci men Type: BLOOD SPECIMENOrdering Facility: [facility] Address: [address] [place] [address] Performed By: #### 5 7021-8 ####[facility] LABCLIA [id number] [place] [address] [place] Immature granulocytes/100 WBC (Bld) 0.3 % Normal [facility] Comment on above: Order Comment: Speci men Type: BLOOD SPECIMENOrdering Facility: [facility] Address: [address] [place] [address] Performed By: #### 5 7021-8 ####[facility] LABCLIA [id number] [place] [address] [place] Lymphocytes (Bld) [#/Vol] 1.73 10*3/uL Normal 1.00-4.00 [facility] Comment on above: Order Comment: Speci men Type: BLOOD SPECIMENOrdering Facility: [facility] Address: [address] [place] [address] Performed By: #### 5 7021-8 ####[facility] LABCLIA [id number] [place] [address] [place] Lymphocytes/100 WBC (Bld) 22.5 % Normal [facility] Comment on above: Order Comment: Speci men Type: BLOOD SPECIMENOrdering Facility: [facility] Address: [address] [place] [address] Performed By: #### 5 7021-8 ####[facility] LABCLIA [id number] [place] [address] [place] MCH (RBC) [Entitic mass] 29.2 pg Normal 26.0-34.0 [facility] Comment on above: Order Comment: Speci men Type: BLOOD SPECIMENOrdering Facility: [facility] Address: [address] [place] [address] Performed By: #### 5 7021-8 ####[facility] LABCLIA [id number] [place] [address] [place] MCHC (RBC) [Mass/Vol] 32.3 g/dL Normal 30.5-36.0 [facility] Comment on above: Order Comment: Speci men Type: BLOOD SPECIMENOrdering Facility: [facility] Address: [address] [place] [address] Performed By: #### 5 7021-8 ####[facility] LABIA [id number] [place] [address] [place] MCV (RBC) [Entitic vol] 90.5 fL Normal 80.0-100.0 [facility] Comment on above: Order Comment: Speci men Type: BLOOD SPECIMENOrdering Facility: [facility] Address: [address] [place] [address] Performed By: #### 5 7021-8 ####[facility] LABIA [id number] [place] [address] [place] Monocytes (Bld) [#/Vol] 0.90 10*3/uL High <0.87 [facility] Comment on above: Order Comment: Speci men Type: BLOOD SPECIMENOrdering Facility: [facility] Address: [address] [place] [address] Performed By: #### 5 7021-8 ####[facility] LABCLIA [id number] [place] [address] [place] Monocytes/100 WBC (Bld) 11.7 % Normal [facility] Comment on above: Order Comment: Speci men Type: BLOOD SPECIMENOrdering Facility: [facility] Address: [address] [place] [address] Performed By: #### 5 7021-8 ####[facility] LABCLIA [id number] [place] [address] [place] Neutrophils (Bld) [#/Vol] 4.80 10*3/uL Normal 1.45-7.50 [facility] Comment on above: Order Comment: Speci men Type: BLOOD SPECIMENOrdering Facility: [facility] Address: [address] [place] [address] Performed By: #### 5 7021-8 ####[facility] LABCLIA [id number] [place] [address] [place] Neutrophils/100 WBC (Bld) 62.3 % Normal [facility] Comment on above: Order Comment: Speci men Type: BLOOD SPECIMENOrdering Facility: [facility] Address: [address] [place] [address] Performed By: #### 5 7021-8 ####[facility] LABCLIA [id number] [place] [address] [place] Nucleated RBC (Bld) [#/Vol] 10*3/uL Normal <0.01 [facility] Comment on above: Order Comment: Speci men Type: BLOOD SPECIMENOrdering Facility: [facility] Address: [address] [place] [address] Performed By: #### 5 7021-8 ####[facility] LABCLIA [id number] [place] [address] [place] Nucleated RBC/100 WBC (Bld) [Ratio] 0.0 /100 WBC Normal [facility] Comment on above: Order Comment: Speci men Type: BLOOD SPECIMENOrdering Facility: [facility] Address: [address] [place] [address] Performed By: #### 5 7021-8 ####[facility] LABCLIA [id number] [place] [address] [place] Platelet mean volume (Bld) [Entitic vol] 9.8 fL Normal 9.0-12.7 [facility] Comment on above: Order Comment: Speci men Type: BLOOD SPECIMENOrdering Facility: [facility] Address: [address] [place] [address] Performed By: #### 5 7021-8 ####[facility] LABIA [id number] [place] [address] [place] Platelets (Bld) [#/Vol] 294 10*3/uL Normal 150-400 [facility] Comment on above: Order Comment: Speci men Type: BLOOD SPECIMENOrdering Facility: [facility] Address: [address] [place] [address] Performed By: #### 5 7021-8 ####[facility] LABIA [id number] [place] [address] [place] RBC (Bld) [#/Vol] 4.31 10*6/uL Normal 3.90-5.20 [facility] Comment on above: Order Comment: Speci men Type: BLOOD SPECIMENOrdering Facility: [facility] Address: [address] [place] [address] Performed By: #### 5 7021-8 ####[facility] LABIA [id number] [place] [address] [place] WBC (Bld) [#/Vol] 7.70 10*3/uL Normal 3.70-11.00 [facility] Comment on above: Order Comment: Speci men Type: BLOOD SPECIMENOrdering Facility: [facility] Address: [address] [place] [address] Performed By: #### 5 7021-8 ####[facility] LABIA [id number] [place] [address] [place] CNOVon 03-08-2024 CNOV Office Visit ([facility] ) ----- LUCAWHITNEY ([id number]) 1945 F CHT Date Time Provider Department 03/08/24 1:20 PM JACKELIN LARES During your visit today, we recorded the following information about you: Temperature Pulse Respiration Blood pressure 98.5 degrees 55/minute 16/minute 134/60 Weight Height 85 kg 1.524 m Jackelin Lares PA-C 03/09/2024 2:56 PM Signed ua03/08/2024 Patient presents with: Same Day Appointment: possible UTI, bladder pressure/spasms, urinary frequency, back pain, odor SUBJECTIVE: This is a 78 year old that is here today for Complaint(s) of possible UTI. Having increased urinary frequency. Notes some lower abdomen pressure. No severe pain. Notes urine has a strong odor. Home urine test showed bacteria. Not consistent with her diverticulitis symptoms. Denies fever/chills, nausea, vomiting, hematuria, diarrhea, constipation, blood in stools. Not having any abdominal or back pain at this time. She was seen in the ED 1 month ago for diverticulitis. Completed 14 days of omnicef and flagyl. Symptoms resolved. PAST MEDICAL HISTORY Diagnosis Date CAD (coronary artery disease) 04/16/2012 70-80% LAD --had stent placed 09/07/14 Depressive disorder, not elsewhere classified Diverticulitis of colon with hemorrhage 2001 DM w/o Complication Type II 04/05/2009 GERD (gastroesophageal reflux disease) Hiatal hernia Hypertension 03/30/1988 IPF (idiopathic pulmonary fibrosis) ([facility]) Irritable bowel syndrome Occipital neuralgia Osteoarthritis 06/27/2011 Other chronic sinusitis Other osteoporosis Post-nasal drip Situational depression 12/27/2014 Sleep apnea 03/30/1996 Statin intolerance 12/24/2016 SVT (supraventricular tachycardia) ([facility]) 10/02/2018 Thoracic aortic aneurysm (HCC) [address] chest (2014, 2013)--July 09, [address] Unspecified essential hypertension Patient has had since age 33 Vitamin D Deficiency 04/18/2009 ALLERGIES Codeine, Vicodin [Hydrocodone-Acetaminophe n], Adhesive, Augmentin [Amoxicillin-Pot Clavulanate], Biaxin [Clarithromycin], Cardizem [Diltiazem], Ciprofloxacin, Clonidine, Coreg [Carvedilol], Crestor [Rosuvastatin Calcium], Cymbalta [Duloxetine], Dicyclomine, Diovan [Valsartan], Doxycycline, Flagyl [Metronidazole], Guaifenesin-Sodium Citrate, Levofloxacin, Losartan, Lovastatin, Mobic [Meloxicam], Morphine, Nifedipine, Norvasc [Amlodipine Besylate], Sulfa (Sulfonamide Antibiotics), and Ultravist [Iopromide] MEDICATIONS Current Outpatient Medications Medication Sig clindamycin (CLEOCIN) 300 mg capsule Take 1 capsule by mouth three times a day for 14 days. CPAP Continue settings of Auto PAP to 5-15 cm of water with humidification. Continue orders for: Mask (per patient preference) optional chin strap (if indicated) , filters, tubing, humidifier and lifetime supplies. famotidine (PEPCID) 40 mg tablet Take 40 mg by mouth once daily. sucralfate (CARAFATE) 1 gram tablet Take 1 g by mouth three times a day. (Patient not taking: Reported on 02/24/2024) fluconazole (DIFLUCAN) 150 mg tablet Take 150 mg by mouth. (Patient not taking: Reported on 02/24/2024) potassium chloride (K-TAB) 10 mEq tablet Take 1 tablet by mouth once daily as needed (When taking diuretic). DAILY hydrocortisone 2.5 % cream Apply 1 application to affected area three times a day as needed (itchy skin lesion on chest). Apply thin layer as directed torsemide (DEMADEX) 10 mg tablet Take 1 tablet by mouth once daily as needed (edema). Simethicone 125 mg chewable tablet Take 1 tablet by mouth every 6 hours as needed. blood sugar diagnostic (BLOOD GLUCOSE TEST) test strip Test blood sugar 1 time daily. Dx: Type 2 DM - Controlled E11.9 Insulin: No. Lancets Test blood sugar(s) 2 times daily and as needed. To go with lancet pen with glucometer Dx: Type 2 DM - Controlled E11.9 Insulin: No fluticasone (FLONASE) 50 mcg/actuation nasal spray Use 1-2 Sprays in each nostril once daily as needed for cold/allergy symptoms. Takes daily as needed metoprolol tartrate, short acting, (LOPRESSOR) 50 mg tablet Take 1 tablet by mouth two times a day. flash glucose sensor (FREESTYLE ALEX 2 SENSOR) kit 1 Each every 2 weeks. E11.9 DM type 2, Insulin: No furosemide (LASIX) 10 mg/mL solution Take by mouth as directed. (Patient not taking: Reported on 02/24/2024) azelastine 0.1% nasal spray Use 1 Coleman in each nostril twice daily. mecobalamin (B12 ACTIVE ORAL) Take by mouth. omeprazole (PRILOSEC) 20 mg capsule Take 1 capsule by mouth once daily. as directed flash glucose scanning reader (FREESTYLE ALEX 2 READER) Check sugars at least 4 times daily albuterol HFA (PROVENTIL HFA, VENTOLIN HFA) 90 mcg/actuation inhaler Inhale 1-2 Puffs as instructed every 4 hours as needed (for wheezing and shortness of breath). Lactobacillus acidophilus (PROBIOTIC ORAL) Take by m (more content not included)... Normal [facility] UA DIP, URINE (POC)on 2023 BILIRUBIN UA (POCT) Negative Negative [facility] CLARITY UA (POCT) Slightly Cloudy Cl [facility] COLOR UA (POCT) Leticia [facility] GLUCOSE UA (POCT) Negative Negative mg/dL [facility] Hemoglobin Ql (U) Negative Negative [facility] Interpretation and review of laboratory results Abnormal [facility] KETONE UA (POCT) Negative Negative mg/dL [facility] LEUKOCYTES UA (POCT) Small Abnormal [facility] NITRITE UA (POCT) Negative Negative [facility] PH UA (POCT) 5.5 4.5 - 8.0 [facility] Protein Ql (U) Negative Negative mg/dL [facility] SPECIFIC GRAVITY UA (POCT) 1.025 1.005 - 1.030 [facility] UROBILINOGEN UA (POCT) 0.2 Normal E.U./dL [facility] Location:[facility], [address] [place] [address], [place], [place], [id number] [place] [address] POINT OF [facility] XR CHEST 2 VIEWSon XR CHEST 2 VIEWS Interpreted By: Sunil Flynn, STUDY: XR CHEST 2 VIEWS; 03/08/2024 4:09 pm INDICATION: Signs/Symptoms:Shortness of breath and cough. ,J45.40 Moderate persistent asthma, uncomplicated ([facility]) COMPARISON: None. ACCESSION NUMBER(S): [id number] ORDERING CLINICIAN: JOHANNA PATINO FINDINGS: There is enlargement of the cardiac silhouette. There is no ernst edema. There lungs are hyperinflated with increased lung markings bilaterally. No discrete consolidation seen. There is no effusion. IMPRESSION: Emphysematous changes in the lungs. Enlarged cardiac silhouette. No acute abnormality MACRO: None Signed by: Sunil Copeland 03/09/2024 7:50 PM Dictation workstation: [id number] [facility] CNOVon 02-24-2024 CNOV Office Visit (INTMWS ) ----- WHITNEY RUIZ ([id number]) 1945 F T Date Time Provider Department 02/24/24 1:40 PM KRISTY BROWER INTMWS During your visit today, we recorded the following information about you: Temperature Pulse Respiration Blood pressure 98.8 degrees 74/minute 16/minute 130/82 Weight 86.4 kg Kristy Brower MD 02/24/2024 3:00 PM Signed This note was created using AISriter. Subjective Whitney Ruiz is a 78 year old female. Patient presents with: F/U 3 Month SUBJECTIVE: Whitney Ruiz is a 78 year old year old lady here today for 3 month follow up appointment for review of medical conditions. Whitney Ruiz is an 78-year-old female with a history of sinusitis, presenting for follow-up. Whitney reports persistent symptoms following a recent sinus infection. She completed a 7-day course of clindamycin 300 mg, which she finished on the . While on the antibiotic, she noted improvement in symptoms, including a reduction in epistaxis. However, after completing the course, her symptoms began to worsen again. She reports ongoing nasal dryness and drainage, with yellow and green discharge. She also experiences daily cephalalgia described as pressure across the forehead. Yesterday morning, Whitney began experiencing pain in the right side of her neck, radiating to the jaw and ear. The pain is exacerbated by palpation and swallowing, and she describes a sensation of something moving in her throat when she swallows, which is painful. She denies awareness of any swollen lymph nodes in the area. Whitney has been using Flonase, a Medipot, and azelastine to manage her symptoms, which she reports have been helpful in drying up some of the drainage. She denies using guaifenesin, as it makes her nervous. She has also been using warm compresses and gentle neck exercises to alleviate muscle tightness. Whitney reports increased swelling in her feet and legs since her illness. She has been wearing support stockings, which she finds helpful, but notes that they sometimes crease at the top. She took a dose of torsemide at 0500 yesterday and reports that she had to urinate frequently, with urine output continuing for about 30 minutes after taking the medication. She denies any concerns about her kidney function and reports that she is staying hydrated. Whitney also reports feeling weak and tired, which she attributes to her illness. She has been drinking plenty of water and urinating frequently. She has upcoming appointments for an endoscopy and knee surgery, but is unsure if she will be able to attend due to her current condition. PAST MEDICAL HISTORY Diagnosis Date CAD (coronary artery disease) 04/16/2012 70-80% LAD --had stent placed 09/07/14 Depressive disorder, not elsewhere classified Diverticulitis of colon with hemorrhage 2001 DM w/o Complication Type II 04/05/2009 GERD (gastroesophageal reflux disease) Hiatal hernia Hypertension 03/30/1988 IPF (idiopathic pulmonary fibrosis) ([facility]) Irritable bowel syndrome Occipital neuralgia Osteoarthritis 06/27/2011 Other chronic sinusitis Other osteoporosis Post-nasal drip Situational depression 12/27/2014 Sleep apnea 03/30/1996 Statin intolerance 12/24/2016 SVT (supraventricular tachycardia) ([facility]) 10/02/2018 Thoracic aortic aneurysm (HCC) [address] chest (2014, 2013)--July 09, [address] Unspecified essential hypertension Patient has had since age 33 Vitamin D Deficiency 04/18/2009 Current Outpatient Medications Medication Sig famotidine (PEPCID) 40 mg tablet Take 40 mg by mouth once daily. potassium chloride (K-TAB) 10 mEq tablet Take 1 tablet by mouth once daily as needed (When taking diuretic). DAILY hydrocortisone 2.5 % cream Apply 1 application to affected area three times a day as needed (itchy skin lesion on chest). Apply thin layer as directed torsemide (DEMADEX) 10 mg tablet Take 1 tablet by mouth once daily as needed (edema). Simethicone 125 mg chewable tablet Take 1 tablet by mouth every 6 hours as needed. blood sugar diagnostic (BLOOD GLUCOSE TEST) test strip Test blood sugar 1 time daily. Dx: Type 2 DM - Controlled E11.9 Insulin: No. Lancets Test blood sugar(s) 2 times daily and as needed. To go with lancet pen with glucometer Dx: Type 2 DM - Controlled E11.9 Insulin: No fluticasone (FLONASE) 50 mcg/actuation nasal spray Use 1-2 Sprays in each nostril once daily as needed for cold/allergy symptoms. Takes daily as needed metoprolol tartrate, short acting, (LOPRESSOR) 50 mg tablet Take 1 tablet by mouth two times a day. flash glucose sensor (FREESTYLE ALEX 2 SENSOR) kit 1 Each every 2 weeks. E11.9 DM type 2, Insulin: No azelastine 0.1% nasal spray Use 1 Coleman in each nostril twice daily. mecobalamin (B12 ACTIVE ORAL) Take by mouth. omeprazole (PRILOSEC) 20 mg caps (more content not included)... Normal [facility] CNOVon 02-12-2024 CNOV Office Visit (INTMWS ) ----- WHITNEY RUIZ ([id number]) 1945 F T Date Time Provider Department 02/12/24 2:20 PM KOJO FREDERICK During your visit today, we recorded the following information about you: Temperature Pulse Blood pressure Weight 99.2 degrees 66/minute 170/94 84.6 kg Kojo Frederick APRN.CNP 02/12/2024 2:48 PM Signed SUBJECTIVE Whitney Ruiz is a 78 year old female here today for a check up on her medical problems. Chief Complaint Patient presents with: Sore Throat: cough moist productive with yellow green sputum,congestion HPI Whitney Ruiz is a 78 year old female. She is an established patient of Kristy Brower MD. Here today acutely for concerns of not feeling well. Issues with sinus congestion, pressure, pain and discolored sinus drainage. Cough that is productive. Using nose spray, doing netti pot. Not improving. Her medications were reviewed today and her list is now up to date. Medications Current Outpatient Medications Medication Sig famotidine (PEPCID) 40 mg tablet Take 40 mg by mouth once daily. sucralfate (CARAFATE) 1 gram tablet Take 1 g by mouth three times a day. fluconazole (DIFLUCAN) 150 mg tablet Take 150 mg by mouth. potassium chloride (K-TAB) 10 mEq tablet Take 1 tablet by mouth once daily as needed (When taking diuretic). DAILY hydrocortisone 2.5 % cream Apply 1 application to affected area three times a day as needed (itchy skin lesion on chest). Apply thin layer as directed torsemide (DEMADEX) 10 mg tablet Take 1 tablet by mouth once daily as needed (edema). Simethicone 125 mg chewable tablet Take 1 tablet by mouth every 6 hours as needed. fluticasone (FLONASE) 50 mcg/actuation nasal spray Use 1-2 Sprays in each nostril once daily as needed for cold/allergy symptoms. Takes daily as needed metoprolol tartrate, short acting, (LOPRESSOR) 50 mg tablet Take 1 tablet by mouth two times a day. furosemide (LASIX) 10 mg/mL solution Take by mouth as directed. azelastine 0.1% nasal spray Use 1 Coleman in each nostril twice daily. omeprazole (PRILOSEC) 20 mg capsule Take 1 capsule by mouth once daily. as directed albuterol HFA (PROVENTIL HFA, VENTOLIN HFA) 90 mcg/actuation inhaler Inhale 1-2 Puffs as instructed every 4 hours as needed (for wheezing and shortness of breath). Lactobacillus acidophilus (PROBIOTIC ORAL) Take by mouth. MULTI-VITAMIN ORAL Take by mouth. ACETAMINOPHEN (TYLENOL ORAL) Take 500 mg by mouth as needed. aspirin, enteric coated (ASPIRIN, ENTERIC COATED) 81 mg EC tablet Take 81 mg by mouth once daily. clindamycin (CLEOCIN) 300 mg capsule Take 1 capsule by mouth three times a day for 7 days. blood sugar diagnostic (BLOOD GLUCOSE TEST) test strip Test blood sugar 1 time daily. Dx: Type 2 DM - Controlled E11.9 Insulin: No. Lancets Test blood sugar(s) 2 times daily and as needed. To go with lancet pen with glucometer Dx: Type 2 DM - Controlled E11.9 Insulin: No flash glucose sensor (FREESTYLE ALEX 2 SENSOR) kit 1 Each every 2 weeks. E11.9 DM type 2, Insulin: No mecobalamin (B12 ACTIVE ORAL) Take by mouth. (Patient not taking: Reported on 07/31/2023) flash glucose scanning reader (FREESTYLE ALEX 2 READER) Check sugars at least 4 times daily CPAP Change settings of Auto PAP to 5-15 cm of water with humidification. Continue orders for: Mask (per patient preference) optional chin strap (if indicated) , filters, tubing, humidifier and lifetime supplies. Per patient insurance will not replace supplies - so request repair and provision of loaner CPAP. COMPOUNDED PRESCRIPTION Powerstep full length original insert (M12.571) Traumatic arthritis of foot, right (primary encounter diagnosis) (Patient not taking: Reported on 09/30/2023) COMPOUNDED PRESCRIPTION New CPAP with supplies CPAP pressure 12 cm H2O. 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 ALLERGIES Allergen Reactions Codeine Shortness of Breath Vicodin [Hydrocodon* Intolerance cardiac arrest Adhesive Rash Augmentin [Amoxicil* Shortness of Breath Called and complained that caused SOB Biaxin [Clarithromy* Mental Status Change Cardizem [Diltiazem] Intolerance itching Ciprofloxacin Other: See Comments Muscle pain Clonidine Intolerance low heart rate to 42; BP also dropped; tried patch and was okay for a while but then stopped since affected thinking Coreg [Carvedilol] Intolerance grumpy, runny nose Crestor [Rosuvastat* Intolerance muscle aches all over Cymbalta [Duloxetin* Other: See Comments Elevated BP and blood sugar went up Dicyclomine Shortness of Breath Diovan [Valsartan] Swelling In feet, legs AND ankles Doxycycline Vomiting Vomiting after the first dose, intense. Flagyl [Metronidazo* Itching Guaifenesin-Sodium * Intolerance jittery Levofloxacin Other: Se (more content not included)... Normal [facility] Gastroenterology Visit Repor ton 01-25-2024 Gastroenterology Visit Report [facility] [address] [place] [address] OFFICE VISIT Date of Service: 01/25/24 MR#: [id number] Acct: [id number] Name: WHITNEY RUIZ Rep #: [id number] : 1945 Provider: SAMMY marques Age/Sex: 78/F Location: [facility] [place] Status: Signed Intake Vital Signs 01/11/24 10:46 Height 5 ft 2 in Intake Visit Reasons: Divertculitis Chief Complaint: ongoing abd pain Allergies adhesive Allergy (Intermediate, Verified 01/25/24 13:12) Rash amlodipine Allergy (Intermediate, Verified 01/25/24 13:12) Swelling amoxicillin (From Augmentin) Allergy (Intermediate, Verified 01/25/24 13:12) Shortness of breath carvedilol Allergy (Intermediate, Verified 01/25/24 13:12) Other ciprofloxacin Allergy (Intermediate, Verified 01/25/24 13:12) Other clarithromycin Allergy (Intermediate, Verified 01/25/24 13:12) Other clavulanic acid (From Augmentin) Allergy (Intermediate, Verified 01/25/24 13:12) Shortness of breath clonidine Allergy (Intermediate, Verified 01/25/24 13:12) Other dicyclomine Allergy (Intermediate, Verified 01/25/24 13:12) Shortness of breath diltiazem (From Cardizem) Allergy (Intermediate, Verified 01/25/24 13:12) Itching doxycycline Allergy (Intermediate, Verified 01/25/24 13:12) Vomiting duloxetine (From Cymbalta) Allergy (Intermediate, Verified 01/25/24 13:12) Other guaifenesin Allergy (Intermediate, Verified 01/25/24 13:12) Other levofloxacin Allergy (Intermediate, Verified 01/25/24 13:12) Other losartan Allergy (Intermediate, Verified 01/25/24 13:12) Other metronidazole (From Flagyl) Allergy (Intermediate, Verified 01/25/24 13:12) Itching rosuvastatin (From Crestor) Allergy (Intermediate, Verified 01/25/24 13:12) Other valsartan Allergy (Intermediate, Verified 01/25/24 13:12) Swelling acetaminophen (From Vicodin) Allergy (Verified 01/25/24 13:12) Other codeine Allergy (Verified 01/25/24 13:12) Other hydrocodone bitartrate (From Vicodin) Allergy (Verified 01/25/24 13:12) Other Iodinated Contrast Media Allergy (Verified 01/25/24 13:12) Other meloxicam (From Mobic) Allergy (Verified 01/25/24 13:12) Swelling Sulfa (Sulfonamide Antibiotics) Allergy (Verified 01/25/24 13:12) Rash sulfamethoxazole (From Septra) Allergy (Verified 01/25/24 13:12) Unknown trimethoprim (From Septra) Allergy (Verified 01/25/24 13:12) Unknown Medications ???Medication ???Instructions ???Recorded ???Confirmed ???Type fluticasone propionate 50 2 spray NS DAILY 03/15/15 01/25/24 History mcg/actuation nasal spray,suspension metoprolol succinate 25 mg 50 mg PO BID 03/15/15 01/25/24 History tablet,extended release 24 hr potassium chloride 10 mEq 20 meq PO DAILY 03/15/15 01/25/24 History tablet,extended release(part/cryst) torsemide 20 mg tablet 20 mg PO DAILY PRN edema 03/15/15 01/25/24 History albuterol sulfate 90 mcg/actuation 2 puff inhalation Q4H PRN PRN 08/19/18 01/25/24 History aerosol inhaler (Ventolin HFA) Wheezing aspirin 81 mg chewable tablet 81 mg PO DAILY@0800 08/19/18 01/25/24 History ergocalciferol (vitamin D2) 50 mcg 1.25 mg PO MOWEFR 08/19/18 01/25/24 History (2,000 unit) capsule famotidine 40 mg tablet 40 mg PO QHS #30 tabs 01/25/24 01/25/24 Rx furosemide 10 mg/mL oral solution 10 mg PO QAM PRN 01/25/24 01/25/24 History omeprazole 20 mg capsule,delayed 20 mg PO DAILY PRN gerd #60 caps 01/25/24 01/25/24 Rx release simethicone 125 mg capsule (Gas 125 mg PO QD-BID PRN 01/25/24 01/25/24 History Relief (simethicone)) sucralfate 1 gram tablet 1 g PO QAC #90 tabs 01/25/24 01/25/24 Rx Have you fallen in the past year?: No PFSH Medical History (Updated 01/25/24 @ 15:20 by Nydia Jhaveri NP-C) Vitamin D deficiency Thoracic aortic aneurysm SVT (supraventricular tachycardia) Sleep apnea Chronic sinusitis Osteoarthritis Occipital neuralgia IBS (irritable bowel syndrome) Idiopathic pulmonary fibrosis Hiatal hernia GERD (gastroesophageal reflux disease) Depression CAD (coronary artery disease) Diverticulitis Aortic aneurysm Arthritis Hypertension Diabetes Anxiety Surgical History Hx of cholecystectomy H/O heart artery stent H/O hand surgery History of total vaginal hysterectomy (TVH) Family History Mother Cancer stomach Sister Cancer lung- smoker Father Diabetes Hypertension Social History Smoking Status: Former smoker alcohol intake: never substance use type: does not use caffeine: No what type of physical activity do you participate in: none seatbelt use: always do you feel safe at home: Yes additional social history: - Retired HPI H (more content not included)... [facility] ----- WHITNEY RUIZ ([id number]) 1945 F Date Time Provider Department 01/14/24 3:40 PM KRISTY BROWER INTMWS During your visit today, we recorded the following information about you: Pulse Respiration Blood pressure Weight 52/minute 16/minute 160/84 85.5 kg Kristy Brower MD 01/14/2024 5:53 PM Signed This note was created using AISriter. Subjective Whitney Ruiz is a 78 year old female. Patient presents with: ER F/U SUBJECTIVE: Whitney Ruiz is a 78 year old year old lady here today for ER follow up appointment for review of medical conditions. The patient is a 78-year-old female, with a history of diverticulitis and UTI, presenting for follow-up after a recent ER visit. The patient was seen in the ER on the for acute distal sigmoid diverticulitis and a UTI. She was prescribed cefuroxime and metronidazole for 10 days, fluconazole for potential yeast infection, and ondansetron for nausea. She reports feeling some improvement but notes significant fatigue, which she attributes to the medications. She denies any allergies to penicillin but has a known intolerance to Augmentin, causing shortness of breath, and Cipro, causing muscle pain. Prior to the ER visit, she experienced weakness, nausea, and belching, which she initially thought was due to food consumption. She also noted mucous and blood in her stool, which prompted her to seek medical attention. She reports that the pain was not worsening but was persistent and accompanied by back pain, leading her to the ER. She denies any symptoms of a bladder prolapse. She has been following a bland diet, consuming mashed potatoes, noodles, broth, soups, and soft rice. She also reports splitting and breaking fingernails. She has a follow-up appointment with a GI doctor on the . PAST MEDICAL HISTORY Diagnosis Date CAD (coronary artery disease) 04/16/2012 70-80% LAD --had stent placed 09/07/14 Depressive disorder, not elsewhere classified Diverticulitis of colon with hemorrhage 2001 DM w/o Complication Type II 04/05/2009 GERD (gastroesophageal reflux disease) Hiatal hernia Hypertension 03/30/1988 IPF (idiopathic pulmonary fibrosis) (HCC) Irritable bowel syndrome Occipital neuralgia Osteoarthritis 06/27/2011 Other chronic sinusitis Other osteoporosis Post-nasal drip Situational depression 12/27/2014 Sleep apnea 03/30/1996 Statin intolerance 12/24/2016 SVT (supraventricular tachycardia) ([facility]) 10/02/2018 Thoracic aortic aneurysm ([facility]) [address] chest (2014, 2013)--July 09, [address] Unspecified essential hypertension Patient has had since age 33 Vitamin D Deficiency 04/18/2009 Current Outpatient Medications Medication Sig cefUROXime (CEFTIN) 500 mg tablet Take 500 mg by mouth. fluconazole (DIFLUCAN) 150 mg tablet Take 150 mg by mouth. metroNIDAZOLE (FLAGYL) 500 mg tablet Take 500 mg by mouth. ondansetron (ZOFRAN) 4 mg tablet Take 4 mg by mouth three times a day as needed. potassium chloride (K-TAB) 10 mEq tablet Take 1 tablet by mouth once daily as needed (When taking diuretic). DAILY hydrocortisone 2.5 % cream Apply 1 application to affected area three times a day as needed (itchy skin lesion on chest). Apply thin layer as directed torsemide (DEMADEX) 10 mg tablet Take 1 tablet by mouth once daily as needed (edema). Simethicone 125 mg chewable tablet Take 1 tablet by mouth every 6 hours as needed. blood sugar diagnostic (BLOOD GLUCOSE TEST) test strip Test blood sugar 1 time daily. Dx: Type 2 DM - Controlled E11.9 Insulin: No. Lancets Test blood sugar(s) 2 times daily and as needed. To go with lancet pen with glucometer Dx: Type 2 DM - Controlled E11.9 Insulin: No fluticasone (FLONASE) 50 mcg/actuation nasal spray Use 1-2 Sprays in each nostril once daily as needed for cold/allergy symptoms. Takes daily as needed metoprolol tartrate, short acting, (LOPRESSOR) 50 mg tablet Take 1 tablet by mouth two times a day. flash glucose sensor ([employer] ALEX 2 SENSOR) kit 1 Each every 2 weeks. E11.9 DM type 2, Insulin: No furosemide (LASIX) 10 mg/mL solution Take by mouth as directed. azelastine 0.1% nasal spray Use 1 Coleman in each nostril twice daily. flash glucose scanning reader ([employer] ALEX 2 READER) Check sugars at least 4 times daily albuterol HFA (PROVENTIL HFA, VENTOLIN HFA) 90 mcg/actuation inhaler Inhale 1-2 Puffs as instructed every 4 hours as needed (for wheezing and shortness of breath). CPAP Change settings of Auto PAP to 5-15 cm of water with humidification. Continue orders for: Mask (per patient preference) optional chin strap (if indicated) , filters, tubing, humidifier and lifetime supplies. Per patient insurance will not replace supplies - so request repair and provision of loaner CPAP. Lactobacillus acidophilus (PROBIOTIC ORAL) Take b (more content not included)... Normal [facility] Bacteria identifiedon 2023 Bacteria identified Cx Nom (U) Test: Urine Culture Specimen Source: Clean Catch/Voided Specimen Type: Urine Specimen Date: 01/11/2024 1209 Result Date: 01/12/2024 0946 Result Status: Final result Abnormal: No Resulting Lab: [facility] [address] [address] CULTURE No growth Normal [facility] Comment on above: Performed By: #### 6 30-4 ####SAUNDRA Nash ([id number])[facility] ([facility])[id number] [place] [address] CBC W Auto Differential pane l (Bld)on 01-11-2024 Basophils (Bld) [#/Vol] 0.03 10*3/uL [facility] Basophils/100 WBC (Bld) 0.3 % 0.0 - 2.0 % [facility] Eosinophils (Bld) [#/Vol] 0.06 10*3/uL [facility] Eosinophils/100 WBC (Bld) 0.5 % 0.0 - 6.0 % [facility] Erythrocyte distribution width (RBC) [Ratio] 13.7 % 11.5 - 14.5 % [facility] Hematocrit (Bld) [Volume fraction] 39.9 % 36.0 - 46.0 % [facility] Hemoglobin (Bld) [Mass/Vol] 13.1 g/dL 12.0 - 16.0 g/dL [facility] Immature granulocytes (Bld) [#/Vol] 0.02 10*3/uL [facility] Immature granulocytes/100 WBC (Bld) 0.2 % 0.0 - 0.9 % [facility] Comment on above: Immature Granulocyte Count (IG) includes promyelocytes, myelocytes and metamyelocytes but does not include bands. Percent differential counts (%) should be interpreted in the context of the absolute cell counts (cells/UL). Interpretation and review of laboratory results Abnormal [facility] Lymphocytes (Bld) [#/Vol] 1.49 10*3/uL [facility] Lymphocytes/100 WBC (Bld) 13.1 % 13.0 - 44.0 % [facility] MCH (RBC) [Entitic mass] 29.5 pg 26.0 - 34.0 pg [facility] MCHC (RBC) [Mass/Vol] 32.8 g/dL 32.0 - 36.0 g/dL [facility] MCV (RBC) [Entitic vol] 90 fL 80 - 100 fL [facility] Monocytes (Bld) [#/Vol] 1.56 10*3/uL High [facility] Monocytes/100 WBC (Bld) 13.7 % 2.0 - 10.0 % [facility] Neutrophils (Bld) [#/Vol] 8.23 10*3/uL High [facility] Comment on above: Percent differential counts (%) should be interpreted in the context of the absolute cell counts (cells/uL). Neutrophils/100 WBC (Bld) 72.2 % 40.0 - 80.0 % [facility] Nucleated RBC/100 WBC (Bld) [Ratio] 0.0 % [facility] Platelets (Bld) [#/Vol] 277 10*3/uL [facility] RBC (Bld) [#/Vol] 4.44 10*6/uL [facility] WBC (Bld) [#/Vol] 11.4 10*3/uL High [facility] Basophils (Bld) [#/Vol] 0.03 x10*3/uL Normal 0.00-0.10 [facility] Comment on above: Performed By: #### 5 7021-8 #### JAE THOMPSON ([id number]) [facility] ([facility]) [address] [place] [address] Basophils/100 WBC (Bld) 0.3 % Normal 0.0-2.0 [facility] Comment on above: Performed By: #### 7021-8 #### JAE THOMPSON ([id number]) [facility] ([facility]) [address] [place] [address]32[address] Eosinophils (Bld) [#/Vol] 0.06 x10*3/uL Normal 0.00-0.40 [facility] Comment on above: Performed By: #### 7021-8 #### JAE THOMPSON ([id number]) [facility] ([facility]) [address] [place] [address] Eosinophils/100 WBC (Bld) 0.5 % Normal 0.0-6.0 [facility] Comment on above: Performed By: #### 7021-8 #### JAE THOMPSON ([id number]) [facility] ([facility]) [address] [place] [address] Erythrocyte distribution width (RBC) [Ratio] 13.7 % Normal 11.5-14.5 [facility] Comment on above: Performed By: #### 5 7021-8 #### JAE THOMPSON ([id number]) [facility] ([facility]) [address] [place] [address] 90274 Hematocrit (Bld) [Volume fraction] 39.9 % Normal 36.0-46.0 [facility] Comment on above: Performed By: #### 7021-8 #### JAE THOMPSON ([id number]) [facility] ([facility]) [address] [place] [address]99[address] Hemoglobin (Bld) [Mass/Vol] 13.1 g/dL Normal 12.0-16.0 [facility] Comment on above: Performed By: #### 7021-8 #### JAE THOMPSON ([id number]) [facility] ([facility]) [facility] [place] [address] Immature granulocytes (Bld) [#/Vol] 0.02 x10*3/uL Normal 0.00-0.50 [facility] Comment on above: Performed By: #### 5 7021-8 #### JAE THOMPSON ([id number]) [facility] ([facility]) [address] [place] [address]23[address] Immature granulocytes/100 WBC (Bld) 0.2 % Normal 0.0-0.9 [facility] Comment on above: Result Comment: Sara ture Granulocyte Count (IG) includes promyelocytes, myelocytes and metamyelocytes but does not include bands. Percent differential counts (%) should be interpreted in the context of the absolute cell counts (cells/UL). Performed By: #### 5 7021-8 #### JAE THOMPSON ([id number]) [facility] ([facility]) [address] [place] [address] Lymphocytes (Bld) [#/Vol] 1.49 x10*3/uL Normal 0.80-3.00 [facility] Comment on above: Performed By: #### 5 7021-8 #### JAE THOMPSON ([id number]) [facility] ([facility]) [address] [place] [address] 95954 Lymphocytes/100 WBC (Bld) 13.1 % Normal 13.0-44.0 [facility] Comment on above: Performed By: #### 5 7021-8 #### JAE THOMPSON ([id number]) [facility] ([facility]) [address] [place] [address] 35750 MCH (RBC) [Entitic mass] 29.5 pg Normal 26.0-34.0 [facility] Comment on above: Performed By: #### 5 7021-8 #### JAE THOMPSON ([id number]) [facility] ([facility]) [address] [place] [address] 56090 MCHC (RBC) [Mass/Vol] 32.8 g/dL Normal 32.0-36.0 [facility] Comment on above: Performed By: #### 5 7021-8 #### JAE THOMPSON ([id number]) [facility] ([facility]) [facility] [place] [address] MCV (RBC) [Entitic vol] 90 fL Normal 80-100 [facility] Comment on above: Performed By: #### 5 7021-8 #### JAE THOMPSON ([id number]) [facility] ([facility]) [address] [place] [address] 87202 Monocytes (Bld) [#/Vol] 1.56 x10*3/uL High 0.05-0.80 [facility] Comment on above: Performed By: #### 5 7021-8 #### JAE THOMPSON ([id number]) [facility] ([facility]) [address] [place] [address] 40298 Monocytes/100 WBC (Bld) 13.7 % Normal 2.0-10.0 [facility] Comment on above: Performed By: #### 5 7021-8 #### JAE THOMPSON ([id number]) [facility] ([facility]) [address] [place] [address] 35945 Neutrophils (Bld) [#/Vol] 8.23 x10*3/uL High 1.60-5.50 [facility] Comment on above: Result Comment: Perc ent differential counts (%) should be interpreted in the context of the absolute cell counts (cells/uL). Performed By: #### 5 7021-8 #### JAE THOMPSON ([id number]) [facility] ([facility]) [address] [place] [address] 45715 Neutrophils/100 WBC (Bld) 72.2 % Normal 40.0-80.0 [facility] Comment on above: Performed By: #### 5 7021-8 #### JAE THOMPSON ([id number]) [facility] ([facility]) [address] [place] [address] 44[address] Nucleated RBC/100 WBC (Bld) [Ratio] 0.0 /100 WBCs Normal 0.0-0.0 [facility] Comment on above: Performed By: #### 5 7021-8 #### JAE THOMPSON ([id number]) [facility] ([facility]) [address] [place] [address] Platelets (Bld) [#/Vol] 277 x10*3/uL Normal 150-450 [facility] Comment on above: Performed By: #### 5 7021-8 #### JAE THOMPSON ([id number]) [facility] ([facility]) [address] [place] [address] RBC (Bld) [#/Vol] 4.44 x10*6/uL Normal 4.00-5.20 [facility] Comment on above: Performed By: #### 5 7021-8 #### JAE THOMPSON ([id number]) [facility] ([facility]) [address] [place] [address] WBC (Bld) [#/Vol] 11.4 x10*3/uL High 4.4-11.3 [facility] Comment on above: Performed By: #### 5 7021-8 #### JAE THOMPSON ([id number]) [facility] ([facility]) [address] [place] [address] CT ABDOMEN PELVIS WO IV CONT [facility] 01-11-2024 CT ABDOMEN PELVIS WO IV CONTRAST Interpreted By: Parag Landis, STUDY: CT ABDOMEN PELVIS WO IV CONTRAST; 01/11/2024 12:59 pm INDICATION: Signs/Symptoms:diffuse abd pain COMPARISON: November 2022 ACCESSION NUMBER(S): [id number] ORDERING CLINICIAN: BRADLY TEJEDA TECHNIQUE: Spiral axial unenhanced images were obtained from the upper abdomen to the symphysis pubis. Oral contrast was not administered. All CT examinations are performed with one or more of the following dose reduction techniques: Automated Exposure Control, adjustment of mA and/or kV according to patient size, or use of iterative reconstruction techniques. FINDINGS: Lung bases: Cardiomegaly. Interstitial lung disease/emphysema. Calcified right hilar lymph nodes. Liver: Normal in size containing multiple small calcified granulomas. Gallbladder: Cholecystectomy clips again present. Spleen: Normal in size containing innumerable small calcified granulomas. Pancreas: Unremarkable. Adrenal glands: No focal lesions. The kidneys are normal in size and position. There are no renal calculi or hydronephrosis. No abnormal calcifications are seen within the course of the ureters or within the bladder. Pelvic reproductive organs: Unremarkable. Several colonic diverticula are again present. Additionally there is now mild wall thickening of the distal sigmoid colon, with stranding of the associated mesenteric fat, consistent with acute diverticulitis. There is no abscess or bowel obstruction. The appendix is seen and appears normal. There is no free air or free fluid in the abdomen and pelvis. Atherosclerotic calcifications involve the aorta and its branches, without focal aneurysm. Degenerative changes at multiple levels disc disease involve the spine. IMPRESSION: 1. Findings consistent with a acute distal sigmoid diverticulitis, without abscess or bowel obstruction. Correlate clinically and follow-up as needed. 2. Additional chronic findings as above. Signed by: Parag Landis 01/11/2024 1:50 PM Dictation workstation: [id number] [facility] CT Abdomen WO contraston 1. Findings consiste nt with a acute distal sigmoid diverticulitis, without abscess or bowel obstruction. Correlate clinically and follow-up as needed. 2. Additional chronic findings as above. Signed by: Parag Landis 01/11/2024 1:50 PM Dictation workstation: [id number] [facility] Interpreted By: Parag Arriaga, STUDY: CT ABDOMEN PELVIS WO IV CONTRAST; 01/11/2024 12:59 pm INDICATION: Signs/Symptoms:diffuse abd pain COMPARISON: November 2022 ACCESSION NUMBER(S): [id number] ORDERING CLINICIAN: BRADLY TEJEDA TECHNIQUE: Spiral axial unenhanced images were obtained from the upper abdomen to the symphysis pubis. Oral contrast was not administered. All CT examinations are performed with one or more of the following dose reduction techniques: Automated Exposure Control, adjustment of mA and/or kV according to patient size, or use of iterative reconstruction techniques. FINDINGS: Lung bases: Cardiomegaly. Interstitial lung disease/emphysema. Calcified right hilar lymph nodes. Liver: Normal in size containing multiple small calcified granulomas. Gallbladder: Cholecystectomy clips again present. Spleen: Normal in size containing innumerable small calcified granulomas. Pancreas: Unremarkable. Adrenal glands: No focal lesions. The kidneys are normal in size and position. There are no renal calculi or hydronephrosis. No abnormal calcifications are seen within the course of the ureters or within the bladder. Pelvic reproductive organs: Unremarkable. Several colonic diverticula are again present. Additionally there is now mild wall thickening of the distal sigmoid colon, with stranding of the associated mesenteric fat, consistent with acute diverticulitis. There is no abscess or bowel obstruction. The appendix is seen and appears normal. There is no free air or free fluid in the abdomen and pelvis. Atherosclerotic calcifications involve the aorta and its branches, without focal aneurysm. Degenerative changes at multiple levels disc disease involve the spine. [facility] Parag Landis MD - 01/11/2024 Interpreted By: Parag Landis, STUDY: CT ABDOMEN PELVIS WO IV CONTRAST; 01/11/2024 12:59 pm INDICATION: Signs/Symptoms:diffuse abd pain COMPARISON: November 2022 ACCESSION NUMBER(S): [id number] ORDERING CLINICIAN: BRADLY TEJEDA TECHNIQUE: Spiral axial unenhanced images were obtained from the upper abdomen to the symphysis pubis. Oral contrast was not administered. All CT examinations are performed with one or more of the following dose reduction techniques: Automated Exposure Control, adjustment of mA and/or kV according to patient size, or use of iterative reconstruction techniques. FINDINGS: Lung bases: Cardiomegaly. Interstitial lung disease/emphysema. Calcified right hilar lymph nodes. Liver: Normal in size containing multiple small calcified granulomas. Gallbladder: Cholecystectomy clips again present. Spleen: Normal in size containing innumerable small calcified granulomas. Pancreas: Unremarkable. Adrenal glands: No focal lesions. The kidneys are normal in size and position. There are no renal calculi or hydronephrosis. No abnormal calcifications are seen within the course of the ureters or within the bladder. Pelvic reproductive organs: Unremarkable. Several colonic diverticula are again present. Additionally there is now mild wall thickening of the distal sigmoid colon, with stranding of the associated mesenteric fat, consistent with acute diverticulitis. There is no abscess or bowel obstruction. The appendix is seen and appears normal. There is no free air or free fluid in the abdomen and pelvis. Atherosclerotic calcifications involve the aorta and its branches, without focal aneurysm. Degenerative changes at multiple levels disc disease involve the spine. IMPRESSION: 1. Findings consistent with a acute distal sigmoid diverticulitis, without abscess or bowel obstruction. Correlate clinically and follow-up as needed. 2. Additional chronic findings as above. Signed by: Parag Landis 01/11/2024 1:50 PM Dictation workstation: [id number] [facility] [facility] Work Phone: Radiology Study observation (narrative) [facility] Work Phone: CT Abdomen WO contrastOrdere d By: Parag Landis on 01-11-2024 [facility] Work Phone: Comprehensive metabolic 2000 panelon 01-11-2024 Albumin BCP dye [Mass/Vol] 4.1 g/dL 3.4 - 5.0 g/dL [facility] ALP [Catalytic activity/Vol] 59 U/L 33 - 136 U/L [facility] ALT With P-5'-P [Catalytic activity/Vol] 7 U/L 7 - 45 U/L [facility] Comment on above: Patients treated wit h Sulfasalazine may generate falsely decreased results for ALT. Anion gap [Moles/Vol] 10 mmol/L 10 - 2 0 mmol/L [facility] AST With P-5'-P [Catalytic activity/Vol] 11 U/L 9 - 39 U/L [facility] Bilirubin [Mass/Vol] 0.7 mg/dL 0.0 - 1 .2 mg/dL [facility] Calcium [Mass/Vol] 9.6 mg/dL 8.6 - 10. 3 mg/dL [facility] Chloride [Moles/Vol] 106 mmol/L 98 - 10 7 mmol/L [facility] CO2 [Moles/Vol] 30 mmol/L 21 - 32 mmol/L [facility] Creatinine [Mass/Vol] 0.58 mg/dL 0.50 - 1.05 mg/dL [facility] eGFR - PINF [facility] Comment on above: Calculations of loco mated GFR are performed using the 2020 CKD-EPI Study Refit equation without the race variable for the IDMS-Traceable creatinine methods. https://jasn.asnjournals.org/content//ASN.030663 8134 Glucose [Mass/Vol] 122 mg/dL High 74 - 99 mg/dL [facility] Interpretation and review of laboratory results Abnormal [facility] Potassium [Moles/Vol] 4.7 mmol/L 3.5 - 5.3 mmol/L [facility] Protein [Mass/Vol] 6.3 g/dL Low 6.4 - 8.2 g/dL [facility] Sodium [Moles/Vol] 141 mmol/L 136 - 145 mmol/L [facility] Urea nitrogen [Mass/Vol] 12 mg/dL 6 - 23 mg/dL [facility] Albumin BCP dye [Mass/Vol] 4.1 g/dL Normal 3.4-5.0 [facility] Comment on above: Performed By: #### 2 4323-8 #### JAE THOMPSON (05593) [facility] ([facility]) [address] [place] [address] ALP [Catalytic activity/Vol] 59 U/L Normal 33-136 [facility] Comment on above: Performed By: #### 2 4323-8 #### JAE THOMPSON (87655) [facility] ([facility]) [address] [place] [address]98[address] ALT With P-5'-P [Catalytic activity/Vol] 7 U/L Normal 7-45 [facility] Comment on above: Result Comment: Madelyn ents treated with Sulfasalazine may generate falsely decreased results for ALT. Performed By: #### 2 4323-8 #### JAE THOMPSON (34449) [facility] ([facility]) [facility] [place] [address] Anion gap [Moles/Vol] 10 mmol/L Normal 10-20 [facility] Comment on above: Performed By: #### 2 4323-8 #### JAE THOMPSON (91087) [facility] ([facility]) [address] [place] [address] 12013 AST With P-5'-P [Catalytic activity/Vol] 11 U/L Normal 9-39 [facility] Comment on above: Performed By: #### 2 4323-8 #### JAE THOMPSON (48653) [facility] ([facility]) [address] [place] [address] Bilirubin [Mass/Vol] 0.7 mg/dL Normal 0.0-1.2 [facility] Comment on above: Performed By: #### 2 4323-8 #### JAE THOMPSON (40860) [facility] ([facility]) [address] [place] [address] Calcium [Mass/Vol] 9.6 mg/dL Normal 8.6-10.3 [facility] Comment on above: Performed By: #### 2 4323-8 #### JAE THOMPSON (30635) [facility] ([facility]) [address] [place] [address] Chloride [Moles/Vol] 106 mmol/L Normal 98-107 [facility] Comment on above: Performed By: #### 2 4323-8 #### JAE THOMPSON (64563) [facility] ([facility]) [address] [place] [address] CO2 [Moles/Vol] 30 mmol/L Normal 21-32 [facility] Comment on above: Performed By: #### 2 4323-8 #### JAE THOMPSON (22042) [facility] ([facility]) [address] [place] [address] Creatinine [Mass/Vol] 0.58 mg/dL Normal 0.50-1.05 [facility] Comment on above: Performed By: #### 2 4323-8 #### JAE THOMPSON (61220) [facility] ([facility]) [address] [place] [address] GFR/1.73 sq M.predicted MDRD (S/P/Bld) [Vol rate/Area] mL/min/{1.73_m2} Normal >60 [facility] Comment on above: Result Comment: Calc ulations of estimated GFR are performed using the 2020 CKD-EPI Study Refit equation without the race variable for the IDMS-Traceable creatinine methods. https://jasn.asnjournals.org/content/early//ASN.469132 6751 Performed By: #### 2 4323-8 #### JAE THOMPSON (81942) [facility] ([facility]) [address] [place] [address] Glucose [Mass/Vol] 122 mg/dL High 74-99 [facility] Comment on above: Performed By: #### 2 4323-8 #### JAE THOMPSON (35036) [facility] ([facility]) [address] [place] [address] Potassium [Moles/Vol] 4.7 mmol/L Normal 3.5-5.3 [facility] Comment on above: Performed By: #### 2 4323-8 #### JAE THOMPSON (06497) [facility] ([facility]) [address] [place] [address] Protein [Mass/Vol] 6.3 g/dL Low 6.4-8.2 [facility] Comment on above: Performed By: #### 2 4323-8 #### JAE THOMPSON (84673) [facility] ([facility]) [address] [place] [address] Sodium [Moles/Vol] 141 mmol/L Normal 136-145 [facility] Comment on above: Performed By: #### 2 4323-8 #### JAE THOMPSON (77602) [facility] ([facility]) [address] [place] [address]114 Urea nitrogen [Mass/Vol] 12 mg/dL Normal 6-23 [facility] Comment on above: Performed By: #### 2 4323-8 #### JAE THOMPSON (47832) [facility] ([facility]) [address] [place] [address] 22792 Lactateon 01-11-2024 Lactate [Moles/Vol] 1.1 mmol/L 0.4 - 2. 0 mmol/L [facility] Lactate [Moles/Vol] 1.1 mmol/L Normal 0.4-2.0 [facility] Comment on above: Order Comment: Venip uncture immediately after or during the administration of Metamizole may lead to falsely low results. Testing should be performed immediately prior to Metamizole dosing. Performed By: #### 2 524-7 #### JAE THOMPSON (17528) [facility] ([facility]) [facility] [place] [address] Lactate [Moles/Vol]on 2023 Interpretation and review of laboratory results Normal [facility] Venipuncture immedia tely after or during the administration of Metamizole may lead to falsely low results. Testing should be performed immediately prior to Metamizole dosing. [facility] Lipaseon 01-11-2024 Lipase [Catalytic activity/Vol] 9 U/L U/L [facility] Lipase [Catalytic activity/V ol]on 01-11-2024 Interpretation and review of laboratory results Normal [facility] Venipuncture immedia tely after or during the administration of Metamizole may lead to falsely low results. Testing should be performed immediately prior to Metamizole dosing. [facility] No Panel Informationon 01-10 Interpretation and review of laboratory results Abnormal [facility] Triacylglycerol lipaseon Lipase [Catalytic activity/Vol] 9 U/L Normal [facility] Comment on above: Order Comment: Venip uncture immediately after or during the administration of Metamizole may lead to falsely low results. Testing should be performed immediately prior to Metamizole dosing. Performed By: #### 3 040-3 #### JAE THOMPSON (04834) [facility] ([facility]) [facility] [place] [address] Urinalysis complete W Reflex Culture panel (U)on 01-11-2024 Appearance (U) Clear Clear [facility] Bilirubin (U) [Mass/Vol] Negative NEGATIVE [facility] Color (U) Yellow Light-Dimmit ow, Yellow, Dark-Yello w [facility] Glucose Auto test strip (U) [Mass/Vol] Normal Normal mg/dL [facility] Ketones (U) [Mass/Vol] Negative NEGATIVE mg/dL [facility] Leukocyte esterase Auto test strip Ql (U) 500 Sarah/ L Abnormal NEGATIVE [facility] Nitrite Auto test strip Ql (U) Negative NEGATIVE [facility] pH (U) 7.5 [pH] 5.0, 5.5, 6.0, 6.5, 7.0, 7.5, 8.0 [facility] Protein (U) [Mass/Vol] 10 (TRACE) NEGATIVE, 10 (TRACE), 20 (TRACE) mg/dL [facility] RBC (U) [#/Vol] Negative NEGATIVE [facility] Specific gravity (U) [Rel density] 1.019 1.005 - 1.035 [facility] Urobilinogen (U) [Mass/Vol] Normal Normal mg/dL [facility] Appearance (U) Clear Normal Clear [facility] Comment on above: Performed By: #### 5 8077-9 #### JAE THOMPSON (11949) [facility] ([facility]) [address] [place], [place] [address] Bilirubin (U) [Mass/Vol] Negative Normal NEGATIVE [facility] Comment on above: Performed By: #### 5 8077-9 #### JAE THOMPSON (55956) [facility] ([facility]) [address] [place] [address]84 Color (U) Yellow Normal Light-Dimmit ow, Yellow, Dark-Yello w [facility] Comment on above: Performed By: #### 5 8077-9 #### JAE THOMPSON (34079) [facility] ([facility]) [address] [place] [address] 20795 Glucose Auto test strip (U) [Mass/Vol] Normal Normal Normal [facility] Comment on above: Performed By: #### 5 8077-9 #### JAE THOMPSON (11745) [facility] ([facility]) [address] [place] [address]62 Ketones (U) [Mass/Vol] Negative Normal NEGATIVE [facility] Comment on above: Performed By: #### 5 8077-9 #### JAE THOMPSON (40367) [facility] ([facility]) [address] [place] [address]967 Leukocyte esterase Auto test strip Ql (U) 500 Sarah/???L Abnormal NEGATIVE [facility] Comment on above: Performed By: #### 5 8077-9 #### JAE THOMPSON (12372) [facility] ([facility]) [address] [place] [address] 73753 Nitrite Auto test strip Ql (U) Negative Normal NEGATIVE [facility] Comment on above: Performed By: #### 5 8077-9 #### JAE THOMPSON (07028) [facility] ([facility]) [address] [place] [address] pH (U) 7.5 [pH] Normal 5.0, 5.5, 6.0, 6.5, 7.0, 7.5, 8.0 [facility] Comment on above: Performed By: #### 5 8077-9 #### JAE THOMPSON (89729) [facility] ([facility]) [address] [place] [address] 92531 Protein (U) [Mass/Vol] 10 (TRACE) Normal NEGATIVE, 10 (TRACE), 20 (TRACE) [facility] Comment on above: Performed By: #### 5 8077-9 #### JAE THOMPSON (49832) [facility] ([facility]) [address] [place] [address] 14972 RBC (U) [#/Vol] Negative Normal NEGATIVE [facility] Comment on above: Performed By: #### 5 8077-9 #### JAE THOMPSON (76137) [facility] ([facility]) [address] [place] [address] 10873 Specific gravity (U) [Rel density] 1.019 Normal 1.005-1.[address] [place] [address] Comment on above: Performed By: #### 5 8077-9 #### JAE THOMPSON (03804) [facility] ([facility]) [address] [place] [address] 49833 Urobilinogen (U) [Mass/Vol] Normal Normal Normal [facility] Comment on above: Performed By: #### 5 8077-9 #### JAE THOMPSON (61046) [facility] ([facility]) [address] [place] [address] Urinalysis microscopic panel Auto Ql (U)on 01-11-2024 Bacteria Auto (Urine sed) [#/Area] 1+ Abnormal NONE SEEN /HPF [facility] Epithelial cells.renal Computer assisted (U) [#/Area] 1-2 (FEW) Reference range not establishe d. /HPF [facility] Epithelial cells.squamous Auto (Urine sed) [#/Area] 1-9 (SPARSE) Reference range not establishe d. /HPF [facility] Hyaline casts Auto (Urine sed) [#/Area] OCCASIONAL Abnormal NONE /LPF [facility] Mucus Auto (Urine sed) [#/Area] FEW Reference range not establishe d. /LPF [facility] RBC Auto (Urine sed) [#/Area] 1-2 NONE, 1-2, 3-5 /HPF [facility] WBC Auto (Urine sed) [#/Area] 21-50 Abnormal 1-5, NONE /HPF [facility] Bacteria Auto (Urine sed) [#/Area] 1+ /HPF Abnormal NONE SEEN [facility] Comment on above: Performed By: #### 5 3315-8 #### JAE THOMPSON (52929) [facility] ([facility]) [address] [place] [address] Epithelial cells.renal Computer assisted (U) [#/Area] 1-2 (FEW) Normal Reference range not establishe d. [facility] Comment on above: Performed By: #### 5 3315-8 #### JAE THOMPSON (77268) [facility] ([facility]) [address] [place] [address] Epithelial cells.squamous Auto (Urine sed) [#/Area] 1-9 (SPARSE) Normal Reference range not establishe d. [facility] Comment on above: Performed By: #### 5 3315-8 #### JAE THOMPSON (68309) [facility] ([facility]) [address] [place] [address] Hyaline casts Auto (Urine sed) [#/Area] OCCASIONAL Abnormal NONE [facility] Comment on above: Performed By: #### 5 3315-8 #### JAE THOMPSON (48410) [facility] ([facility]) [address] [place] [address] 57049 Mucus Auto (Urine sed) [#/Area] FEW Normal Reference range not establishe d. [facility] Comment on above: Performed By: #### 5 3315-8 #### JAE THOMPSON (84356) [facility] ([facility]) [address] [place] [address] 68796 RBC Auto (Urine sed) [#/Area] 1-2 Normal NONE, 1-2, 3-5 [facility] Comment on above: Performed By: #### 5 3315-8 #### JAE THOMPSON (44840) [facility] ([facility]) [address] [place] [address] 86183 WBC Auto (Urine sed) [#/Area] 21-50 Abnormal 1-5, NONE [facility] Comment on above: Performed By: #### 5 3315-8 #### JAE THOMPSON (66895) [facility] ([facility]) [address] [place] [address] 74033 25(OH)D3 [facility] 2023 25-hydroxyvitamin D3 [Mass/Vol] 28.4 ng/mL Low 31.0-80.0 [facility] Comment on above: Order Comment: Speci men Type: BLOOD SPECIMENOrdering Facility: [facility] Address: [address] [place] [address] Result Comment: Clas sification of 25 [place] Vitamin D status: Deficiency/Insufficiency: < or = 30 ng/ml. Sufficiency/Optimal Levels: 31-80 ng/mL Toxicity: > 100 ng/mL. Test performed by chemiluminescent immunoassay. Performed By: #### 1 989-3 ####[facility] [id number] [facility] [id number] [address] [place] ALBUMIN/CREATININE RATIO, UR INEon 12-25-2023 Albumin DL <= 20 mg/L (U) [Mass/Vol] mg/dL Normal [facility] Comment on above: Order Comment: Speci men Type: URINE SPECIMENOrdering Facility: [facility] Address: [address] [place] [address] Performed By: #### U ACR ####[facility]CL[facility] [id number] [place] [address] [place] Albumin/Creatinine (U) [Mass ratio] Normal [facility] Comment on above: Order Comment: Speci men Type: URINE SPECIMENOrdering Facility: [facility] Address: [address] [place] [address] Result Comment: Not calculated Adult Male and Female Nephrotic Criteria: <30 mg/g is considered normal to mildly increased 30-300 mg/g is considered moderately increased >300 mg/g is considered severely increased KDIGO. (2013). KDIGO 2012 Clinical Practice Guideline for the Evaluation and Management of Chronic Kidney Disease. Official Journal of the International Society of Nephrology, 3(1), 1-150. Performed By: #### U ACR ####[facility] [id number] [place] [address] [place] Creatinine (U) [Mass/Vol] 37.9 mg/dL Normal 20.0-300.0 [facility] Comment on above: Order Comment: Speci men Type: URINE SPECIMENOrdering Facility: [facility] Address: [address] [place] [address] Performed By: #### U ACR ####[facility]CL[facility] [id number] [place] [address] [place] Bacteria Ur Culton 4 Bacteria identified Cx Nom (U) ORGANISM ID: 1 10,000 -<50,000 CFU/ml Normal urogenital noah Normal [facility] Comment on above: Performed By: #### 6 30-4 ####[facility] [id number] [place] [address] [place] CBC W Auto Differential pane l (Bld)on 12-25-2023 Basophils (Bld) [#/Vol] 0.04 10*3/uL Normal <0.11 [facility] Comment on above: Order Comment: Speci men Type: BLOOD SPECIMENOrdering Facility: [facility] Address: [address] [place] [address] Performed By: #### 5 7021-8 ####[facility]CL[facility] [id number] [place] [address] [place] Basophils/100 WBC (Bld) 0.5 % Normal [facility] Comment on above: Order Comment: Speci men Type: BLOOD SPECIMENOrdering Facility: [facility] Address: [address] [place] [address] Performed By: #### 5 7021-8 ####[facility]CL[facility] [id number] [place] [address] [place] Differential cell count method Nom (Bld) Auto Normal [facility] Comment on above: Order Comment: Speci men Type: BLOOD SPECIMENOrdering Facility: [facility] Address: [address] [place] [address] Performed By: #### 5 7021-8 ####[facility]CL[facility] [id number] [place] [address] [place] Eosinophils (Bld) [#/Vol] 0.10 10*3/uL Normal <0.46 [facility] Comment on above: Order Comment: Speci men Type: BLOOD SPECIMENOrdering Facility: [facility] Address: [address] [place] [address] Performed By: #### 5 7021-8 ####[facility]CLIA [id number] [place] [address] [place] Eosinophils/100 WBC (Bld) 1.3 % Normal [facility] Comment on above: Order Comment: Speci men Type: BLOOD SPECIMENOrdering Facility: [facility] Address: [address] [place] [address] Performed By: #### 5 7021-8 ####[facility] LABIA [id number] [place] [address] [place] Erythrocyte distribution width (RBC) [Ratio] 13.2 % Normal 11.5-15.0 [facility] Comment on above: Order Comment: Speci men Type: BLOOD SPECIMENOrdering Facility: [facility] Address: [address] [place] [address] Performed By: #### 5 7021-8 ####[facility] LABIA [id number] [place] [address] [place] Hematocrit (Bld) [Volume fraction] 41.7 % Normal 36.0-46.0 [facility] Comment on above: Order Comment: Speci men Type: BLOOD SPECIMENOrdering Facility: [facility] Address: [address] [place] [address] Performed By: #### 5 7021-8 ####[facility] LABIA [id number] [place] [address] [place] Hemoglobin (Bld) [Mass/Vol] 13.5 g/dL Normal 11.5-15.5 [facility] Comment on above: Order Comment: Speci men Type: BLOOD SPECIMENOrdering Facility: [facility] Address: [address] [place] [address] Performed By: #### 5 7021-8 ####[facility] LABIA [id number] [place] [address] [place] Immature granulocytes (Bld) [#/Vol] 10*3/uL Normal <0.10 [facility] Comment on above: Order Comment: Speci men Type: BLOOD SPECIMENOrdering Facility: [facility] Address: [address] [place] [address] Performed By: #### 5 7021-8 ####[facility]CLIA [id number] [place] [address] [place] Immature granulocytes/100 WBC (Bld) 0.3 % Normal [facility] Comment on above: Order Comment: Speci men Type: BLOOD SPECIMENOrdering Facility: [facility] Address: [address] [place] [address] Performed By: #### 5 7021-8 ####[facility]CLIA [id number] [place] [address] [place] Lymphocytes (Bld) [#/Vol] 2.02 10*3/uL Normal 1.00-4.00 [facility] Comment on above: Order Comment: Speci men Type: BLOOD SPECIMENOrdering Facility: [facility] Address: [address] [place] [address] Performed By: #### 5 7021-8 ####[facility]CLIA [id number] [place] [address] [place] Lymphocytes/100 WBC (Bld) 25.7 % Normal [facility] Comment on above: Order Comment: Speci men Type: BLOOD SPECIMENOrdering Facility: [facility] Address: [address] [place] [address] Performed By: #### 5 7021-8 ####[facility]CLIA [id number] [place] [address] [place] MCH (RBC) [Entitic mass] 29.3 pg Normal 26.0-34.0 [facility] Comment on above: Order Comment: Speci men Type: BLOOD SPECIMENOrdering Facility: [facility] Address: [address] [place] [address] Performed By: #### 5 7021-8 ####[facility] LABCLIA [id number] [place] [address] [place] MCHC (RBC) [Mass/Vol] 32.4 g/dL Normal 30.5-36.0 [facility] Comment on above: Order Comment: Speci men Type: BLOOD SPECIMENOrdering Facility: [facility] Address: [address] [place] [address] Performed By: #### 5 7021-8 ####[facility] LABCLIA [id number] [place] [address] [place] MCV (RBC) [Entitic vol] 90.5 fL Normal 80.0-100.0 [facility] Comment on above: Order Comment: Speci men Type: BLOOD SPECIMENOrdering Facility: [facility] Address: [address] [place] [address] Performed By: #### 5 7021-8 ####[facility]CLIA [id number] [place] [address] [place] Monocytes (Bld) [#/Vol] 0.91 10*3/uL High <0.87 [facility] Comment on above: Order Comment: Speci men Type: BLOOD SPECIMENOrdering Facility: [facility] Address: [address] [place] [address] Performed By: #### 5 7021-8 ####[facility] LABIA [id number] [place] [address] [place] Monocytes/100 WBC (Bld) 11.6 % Normal [facility] Comment on above: Order Comment: Speci men Type: BLOOD SPECIMENOrdering Facility: [facility] Address: [address] [place] [address] Performed By: #### 5 7021-8 ####[facility] LABCLIA [id number] [place] [address] [place] Neutrophils (Bld) [#/Vol] 4.76 10*3/uL Normal 1.45-7.50 [facility] Comment on above: Order Comment: Speci men Type: BLOOD SPECIMENOrdering Facility: [facility] Address: [address] [place] [address] Performed By: #### 5 7021-8 ####[facility] LABCLIA [id number] [place] [address] [place] Neutrophils/100 WBC (Bld) 60.6 % Normal [facility] Comment on above: Order Comment: Speci men Type: BLOOD SPECIMENOrdering Facility: [facility] Address: [address] [place] [address] Performed By: #### 5 7021-8 ####[facility] LABCLIA [id number] [place] [address] [place] [place] Nucleated RBC (Bld) [#/Vol] 10*3/uL Normal <0.01 [facility] Comment on above: Order Comment: Speci men Type: BLOOD SPECIMENOrdering Facility: [facility] Address: [address] [place] [address] Performed By: #### 5 7021-8 ####[facility] LABIA [id number] [place] [address] [place] Nucleated RBC/100 WBC (Bld) [Ratio] 0.0 /100 WBC Normal [facility] Comment on above: Order Comment: Speci men Type: BLOOD SPECIMENOrdering Facility: [facility] Address: [address] [place] [address] Performed By: #### 5 7021-8 ####[facility] [id number] [place] [address] [place] Platelet mean volume (Bld) [Entitic vol] 9.8 fL Normal 9.0-12.7 [facility] Comment on above: Order Comment: Speci men Type: BLOOD SPECIMENOrdering Facility: [facility] Address: [address] [place] [address] Performed By: #### 5 7021-8 ####[facility] [id number] [place] [address] [place] Platelets (Bld) [#/Vol] 316 10*3/uL Normal 150-400 [facility] Comment on above: Order Comment: Speci men Type: BLOOD SPECIMENOrdering Facility: [facility] Address: [address] [place] [address] Performed By: #### 5 7021-8 ####[facility] LABCLIA [id number] [place] [address] [place] RBC (Bld) [#/Vol] 4.61 10*6/uL Normal 3.90-5.20 [facility] Comment on above: Order Comment: Speci men Type: BLOOD SPECIMENOrdering Facility: [facility] Address: [address] [place] [address] Performed By: #### 5 7021-8 ####[facility] LABCLIA [id number] [place] [address] [place] WBC (Bld) [#/Vol] 7.85 10*3/uL Normal 3.70-11.00 [facility] Comment on above: Order Comment: Speci men Type: BLOOD SPECIMENOrdering Facility: [facility] Address: [address] [place] [address] Performed By: #### 5 7021-8 ####[facility] LABCLIA [id number] [place] [address] [place] CNOVon 12-25-2023 CNOV Office Visit (INTMWS ) ----- WHITNEY RUIZ ([id number]) 1945 F Date Time Provider Department 12/25/23 2:20 PM KOJO FREDERICK INTMWS During your visit today, we recorded the following information about you: Pulse Blood pressure Weight 57/minute 166/92 85.5 kg Kojo Frederick APRN.JACKIE 12/25/2023 2:52 PM Signed SUBJECTIVE Whitney Ruiz is a 78 year old female here today for acute concern. Chief Complaint Patient presents with: Pain: across mid back and into right shoulder fatigue HPI Whitney Ruiz is a 78 year old female. She is an established patient of Kristy Brower MD. Here today for acute concern of fatigue and pain. Fatigue not improving, very bothersome. Feels tired all of the time. Had labs in October, with updating them. Issues with her chronic thoracic back pain on the right, right shoulder and rib pain. Hard to do tasks. Has seen ortho previously for this. Percocet has been helpful in the past. Her medications were reviewed today and her list is now up to date. Medications Current Outpatient Medications Medication Sig potassium chloride (K-TAB) 10 mEq tablet Take 1 tablet by mouth once daily as needed (When taking diuretic). DAILY hydrocortisone 2.5 % cream Apply 1 application to affected area three times a day as needed (itchy skin lesion on chest). Apply thin layer as directed torsemide (DEMADEX) 10 mg tablet Take 1 tablet by mouth once daily as needed (edema). Simethicone 125 mg chewable tablet Take 1 tablet by mouth every 6 hours as needed. fluticasone (FLONASE) 50 mcg/actuation nasal spray Use 1-2 Sprays in each nostril once daily as needed for cold/allergy symptoms. Takes daily as needed metoprolol tartrate, short acting, (LOPRESSOR) 50 mg tablet Take 1 tablet by mouth two times a day. furosemide (LASIX) 10 mg/mL solution Take by mouth as directed. azelastine 0.1% nasal spray Use 1 Coleman in each nostril twice daily. omeprazole (PRILOSEC) 20 mg capsule Take 1 capsule by mouth once daily. as directed albuterol HFA (PROVENTIL HFA, VENTOLIN HFA) 90 mcg/actuation inhaler Inhale 1-2 Puffs as instructed every 4 hours as needed (for wheezing and shortness of breath). Lactobacillus acidophilus (PROBIOTIC ORAL) Take by mouth. MULTI-VITAMIN ORAL Take by mouth. ACETAMINOPHEN (TYLENOL ORAL) Take 500 mg by mouth as needed. aspirin, enteric coated (ASPIRIN, ENTERIC COATED) 81 mg EC tablet Take 81 mg by mouth once daily. oxyCODONE-acetaminophen (PERCOCET) 5-325 mg tablet Take 1 tablet by mouth every 6 hours as needed for pain for up to 7 days. blood sugar diagnostic (BLOOD GLUCOSE TEST) test strip Test blood sugar 1 time daily. Dx: Type 2 DM - Controlled E11.9 Insulin: No. Lancets Test blood sugar(s) 2 times daily and as needed. To go with lancet pen with glucometer Dx: Type 2 DM - Controlled E11.9 Insulin: No flash glucose sensor (FREESTYLE ALEX 2 SENSOR) kit 1 Each every 2 weeks. E11.9 DM type 2, Insulin: No [facility] NASAL OINTMENT Apply to affected area two times a day. mecobalamin (B12 ACTIVE ORAL) Take by mouth. (Patient not taking: Reported on 07/31/2023) flash glucose scanning reader (FREESTYLE ALEX 2 READER) Check sugars at least 4 times daily CPAP Change settings of Auto PAP to 5-15 cm of water with humidification. Continue orders for: Mask (per patient preference) optional chin strap (if indicated) , filters, tubing, humidifier and lifetime supplies. Per patient insurance will not replace supplies - so request repair and provision of loaner CPAP. COMPOUNDED PRESCRIPTION Powerstep full length original insert (M12.571) Traumatic arthritis of foot, right (primary encounter diagnosis) (Patient not taking: Reported on 09/30/2023) COMPOUNDED PRESCRIPTION New CPAP with supplies CPAP pressure 12 cm H2O. 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 ALLERGIES Allergen Reactions Codeine Shortness of Breath Vicodin [Hydrocodon* Intolerance cardiac arrest Adhesive Rash Augmentin [Amoxicil* Shortness of Breath Called and complained that caused SOB Biaxin [Clarithromy* Mental Status Change Cardizem [Diltiazem] Intolerance itching Ciprofloxacin Other: See Comments Muscle pain Clonidine Intolerance low heart rate to 42; BP also dropped; tried patch and was okay for a while but then stopped since affected thinking Coreg [Carvedilol] Intolerance grumpy, runny nose Crestor [Rosuvastat* Intolerance muscle aches all over Cymbalta [Duloxetin* Other: See Comments Elevated BP and blood sugar went up Dicyclomine Shortness of Breath Diovan [Valsartan] Swelling In feet, legs AND ankles Doxycycline Vomiting Vomiting after the first dose, intense. Flagyl [Metronidazo* Itching Guaifenesin-Sodium * Intolerance jittery Levofloxacin Other: See Comments Muscle pain Losartan (more content not included)... Normal [facility] Comprehensive metabolic 2000 panelon 12-25-2023 Albumin [Mass/Vol] 4.3 g/dL Normal 3.9-4.9 [facility] Comment on above: Order Comment: Speci men Type: BLOOD SPECIMENOrdering Facility: [facility] Address: [address] [place] [address] Performed By: #### 2 731-8, 80914-6, 2131-11 ####[facility] LABCLIA [id number] [place] [address] [place] ALP [Catalytic activity/Vol] 70 U/L Normal 34-123 [facility] Comment on above: Order Comment: Speci men Type: BLOOD SPECIMENOrdering Facility: [facility] Address: [address] [place] [address] Performed By: #### 2 731-8, , 2131-11 ####[facility] [id number] [place] [address] [place] ALT [Catalytic activity/Vol] 12 U/L Normal 7-38 [facility] Comment on above: Order Comment: Speci men Type: BLOOD SPECIMENOrdering Facility: [facility] Address: [address] [place] [address] Performed By: #### 2 731-8, 21563-7, 2131-11 ####[facility]IA [id number] [place] [id number] [place] Anion gap [Moles/Vol] 13 mmol/L Normal 8-15 [facility] Comment on above: Order Comment: Speci men Type: BLOOD SPECIMENOrdering Facility: [facility] Address: [address] [place] [address] Performed By: #### 2 731-8, 72021-1, 2131-11 ####[facility] LABCLIA [id number] [address] [address] [place] AST [Catalytic activity/Vol] 13 U/L Normal 13-35 [facility] Comment on above: Order Comment: Speci men Type: BLOOD SPECIMENOrdering Facility: [facility] Address: [address] [place], [place] [address] Performed By: #### 2 731-8, , 2131-11 ####[facility] LABCLIA [id number] [place] [address] [place] Bilirubin [Mass/Vol] 0.3 mg/dL Normal 0.2-1.3 [facility] Comment on above: Order Comment: Speci men Type: BLOOD SPECIMENOrdering Facility: [facility] Address: [address] [place] [address] Performed By: #### 2 731-8, , 2131-11 ####[facility]IA [id number] [place] [address] [place] Calcium [Mass/Vol] 10.1 mg/dL Normal 8.5-10.2 [facility] Comment on above: Order Comment: Speci men Type: BLOOD SPECIMENOrdering Facility: [facility] Address: [address] [place], [place] [address] Performed By: #### 2 731-8, , 2131-11 ####[facility] [id number] [place] [id number] [place] Chloride [Moles/Vol] 103 mmol/L Normal 98-107 [facility] Comment on above: Order Comment: Speci men Type: BLOOD SPECIMENOrdering Facility: [facility] Address: [address] [place] [address] Performed By: #### 2 731-8, , 2131-11 ####[facility] LABCLIA [id number] [address] [address] [place] CO2 [Moles/Vol] 27 mmol/L Normal 22-30 [facility] Comment on above: Order Comment: Speci men Type: BLOOD SPECIMENOrdering Facility: [facility] Address: [address] [place] [address] Performed By: #### 2 731-8, , 2131-11 ####[facility] LABCLIA [id number] [address] [address] [place] Creatinine [Mass/Vol] 0.74 mg/dL Normal 0.58-0.96 [facility] Comment on above: Order Comment: Speci men Type: BLOOD SPECIMENOrdering Facility: [facility] Address: [address] [place] [address] Performed By: #### 2 731-8, , 2131-11 ####[facility] [id number] [place] [id number] [place] Creatinine and Glomerular filtration rate.predicted panel (S/P/Bld) 82 mL/min/1.73m??? Normal >=60 [facility] Comment on above: Order Comment: Speci men Type: BLOOD SPECIMENOrdering Facility: [facility] Address: [address] [place] [address] Result Comment: Loco mated Glomerular Filtration Rate (eGFR) is calculated using the 2020 CKD-EPI creatinine equation. This equation utilizes serum creatinine, sex, and age as parameters. The creatinine assay has traceable calibration to isotope dilution-mass spectrometry. Refer to KDIGO guidelines for clinical interpretation. In patients with unstable renal function, e.g. those with acute kidney injury, the eGFR may not accurately reflect actual GFR. Performed By: #### 2 731-8, , 2131-11 ####[facility]IA [id number] [address] [address] [place] Glucose [Mass/Vol] 102 mg/dL High 74-99 [facility] Comment on above: Order Comment: Speci men Type: BLOOD SPECIMENOrdering Facility: [facility] Address: [address] [place] [address] Result Comment: The [place] Diabetes Association (ADA) provides guidance for cutoff values for fasting glucose and random glucose. The ADA defines fasting as no caloric intake for at least 8 hours. Fasting plasma glucose results between 100 to 125 mg/dL indicate increased risk for diabetes (prediabetes). Fasting plasma glucose results greater than or equal to 126 mg/dL meet the criteria for diagnosis of diabetes. In the absence of unequivocal hyperglycemia, results should be confirmed by repeat testing. In a patient with classic symptoms of hyperglycemia or hyperglycemic crisis, random plasma glucose results greater than or equal to 200 mg/dL meet the criteria for diagnosis of diabetes. Reference: Standards of Medical Care in Diabetes 2016, [place] [employer] Association. Diabetes Care. 2016.39(Suppl 1). Performed By: #### 2 731-8, , 2131-11 ####[facility] LABCLIA [id number] [place] [address] [place] Potassium [Moles/Vol] 4.7 mmol/L Normal 3.7-5.1 [facility] Comment on above: Order Comment: Speci men Type: BLOOD SPECIMENOrdering Facility: [facility] Address: [address] [place], [place] [address] Performed By: #### 2 731-8, , 2131-11 ####[facility] LABCLIA [id number] [place] [id number] [place] Protein [Mass/Vol] 6.4 g/dL Normal 6.3-8.0 [facility] Comment on above: Order Comment: Speci men Type: BLOOD SPECIMENOrdering Facility: [facility] Address: [address] [place], [place] [address] Performed By: #### 2 731-8, , 2131-11 ####[facility] LABCLIA [id number] [place] [id number] [place] Sodium [Moles/Vol] 143 mmol/L Normal 136-144 [facility] Comment on above: Order Comment: Speci men Type: BLOOD SPECIMENOrdering Facility: [facility] Address: [address] [place] [address] Performed By: #### 2 731-8, 55615-4, 2131-11 ####[facility] LABCLIA [id number] [place] [address] [place] Urea nitrogen [Mass/Vol] 18 mg/dL Normal 7-21 [facility] Comment on above: Order Comment: Speci men Type: BLOOD SPECIMENOrdering Facility: [facility] Address: [address] [place] [address] Performed By: #### 2 731-8, 27498-3, 2131-11 ####[facility] LABCLIA [id number] [place] [address] [place] Ferritin SerPl-mCncon 2023 Ferritin [Mass/Vol] 236.0 ng/mL High 14.7-205.1 [facility] Comment on above: Order Comment: Speci men Type: BLOOD SPECIMENOrdering Facility: [facility] Address: [address] [place] [address] Performed By: #### 3 016-3, 56070-9, , 2275- ####[facility] LABCLIA [id number] [place] [id number] [place] Iron and Iron binding capaci ty panelon 12-25-2023 Iron [Mass/Vol] 69 ug/dL Normal 41-186 [facility] Comment on above: Order Comment: Speci men Type: BLOOD SPECIMENOrdering Facility: [facility] Address: [address] [place] [address] Performed By: #### 3 016-3, 05537-1, 45105-9, 2275- ####[facility] LABCLIA [id number] [address] [address] [place] Iron binding capacity [Mass/Vol] 279 ug/dL Normal 232-386 [facility] Comment on above: Order Comment: Speci men Type: BLOOD SPECIMENOrdering Facility: [facility] Address: [address] [place] [address] Performed By: #### 3 016-3, 44431-2, , 2275-4 ####[facility]IA [id number] [place] [id number] [place] Iron/TIBC [Molar ratio] 24.7 % Normal 15.0-57.0 [facility] Comment on above: Order Comment: Speci men Type: BLOOD SPECIMENOrdering Facility: [facility] Address: [address] [place] [address] Performed By: #### 3 016-3, 20562-7, , 2275-06 ####[facility] [id number] [place] [id number] [place] Magnesium SerPl-mCncon 12-24 Magnesium [Mass/Vol] 2.1 mg/dL Normal 1.7-2.3 [facility] Comment on above: Order Comment: Speci men Type: BLOOD SPECIMENOrdering Facility: [facility] Address: [address] [place] [address] Performed By: #### 3 016-3, 21603-4, , 2275-06 ####[facility] [id number] [place] [id number] [place] PTH-Intact SerPl-mCncon - Parathyrin.intact [Mass/Vol] 47 pg/mL Normal 15-65 [facility] Comment on above: Order Comment: Speci men Type: BLOOD SPECIMENOrdering Facility: [facility] Address: [address] [place] [address] Performed By: #### 2 731-8, 34131-8, 2132-9 ####[facility] LABCLIA [id number] [place] [address] [place] TSH SerPl-aCncon 12-25-2023 TSH Qn 0.827 m[IU]/L Normal 0.270-4.20 0 [facility] Comment on above: Order Comment: Speci men Type: BLOOD SPECIMENOrdering Facility: [facility] Address: [address] [place] [address] Performed By: #### 3 016-3, 63107-7, 45158-4, 2276-4 ####[facility]IA [id number] [place] [address] [place] Urinalysis complete panel (U )on 12-25-2023 Bacteria LM.HPF (Urine sed) [#/Area] Negative Normal Negative [facility] Comment on above: Order Comment: Speci men Type: URINE SPECIMENOrdering Facility: [facility] Address: [address] [place] [address] Performed By: #### 2 4356-8 ####[facility] [id number] [place] [address] [place] Bilirubin Ql (U) Negative Normal Negative [facility] Comment on above: Order Comment: Speci men Type: URINE SPECIMENOrdering Facility: [facility] Address: [address] [place] [address] Performed By: #### 2 4356-8 ####[facility] [id number] [place] [address] [place] Clarity (Unsp spec) Clear Normal Clear [facility] Comment on above: Order Comment: Speci men Type: URINE SPECIMENOrdering Facility: [facility] Address: [address] [place] [address] Performed By: #### 2 4356-8 ####[facility]CLIA [id number] [place] [address] [place] Color (U) Yellow Normal Yellow [facility] Comment on above: Order Comment: Speci men Type: URINE SPECIMENOrdering Facility: [facility] Address: [address] [place] [address] Performed By: #### 2 4356-8 ####[facility]CLIA [id number] [place] [address] [place] Epithelial cells LM.HPF (Urine sed) [#/Area] None Seen Normal [facility] Comment on above: Order Comment: Speci men Type: URINE SPECIMENOrdering Facility: [facility] Address: [address] [place] [address] Performed By: #### 2 4356-8 ####[facility] LABCLIA [id number] [place] [address] [place] Glucose Test strip (U) [Mass/Vol] Negative Normal Negative [facility] Comment on above: Order Comment: Speci men Type: URINE SPECIMENOrdering Facility: [facility] Address: [address] [place] [address] Performed By: #### 2 4356-8 ####[facility]CLIA [id number] [place] [address] [place] Hemoglobin Ql (U) Negative Normal Negative [facility] Comment on above: Order Comment: Speci men Type: URINE SPECIMENOrdering Facility: [facility] Address: [address] [place] [address] Performed By: #### 2 4356-8 ####[facility] LABCLIA [id number] [place] [address] [place] Hyaline casts (Urine sed) [#/Area] 0 /[LPF] Normal 0 /LPF [facility] Comment on above: Order Comment: Speci men Type: URINE SPECIMENOrdering Facility: [facility] Address: [address] [place] [address] Performed By: #### 2 4356-8 ####[facility]CLIA [id number] [place] [address] [place] Ketones Ql (U) Negative Normal Negative [facility] Comment on above: Order Comment: Speci men Type: URINE SPECIMENOrdering Facility: [facility] Address: [address] [place] [address] Performed By: #### 2 4356-8 ####[facility] LABCLIA [id number] [place] [address] [place] Leukocyte esterase Test strip Ql (U) 2+ Abnormal Negative [facility] Comment on above: Order Comment: Speci men Type: URINE SPECIMENOrdering Facility: [facility] Address: [address] [place] [address] Performed By: #### 2 4356-8 ####[facility] LABCLIA [id number] [place] [address] [place] Nitrite Ql (U) Negative Normal Negative [facility] Comment on above: Order Comment: Speci men Type: URINE SPECIMENOrdering Facility: [facility] Address: [address] [place] [address] Performed By: #### 2 4356-8 ####[facility]CLIA [id number] [place] [address] [place] pH (U) 6.5 [pH] Normal <8.5 [facility] Comment on above: Order Comment: Speci men Type: URINE SPECIMENOrdering Facility: [facility] Address: [address] [place] [address] Performed By: #### 2 4356-8 ####[facility]CL[facility] [id number] [place] [address] [place] Protein (U) [Mass/Vol] Negative Normal Negative [facility] Comment on above: Order Comment: Speci men Type: URINE SPECIMENOrdering Facility: [facility] Address: [address] [place] [address] Performed By: #### 2 4356-8 ####[facility]CL[facility] [id number] [place] [address] [place] RBC LM.HPF (Urine sed) [#/Area] 0-2 /HPF Normal 0-2 /HPF [facility] Comment on above: Order Comment: Speci men Type: URINE SPECIMENOrdering Facility: [facility] Address: [address] [place] [address] Performed By: #### 2 4356-8 ####[facility]CL[facility] [id number] [place] [address] [place] Specific gravity (U) [Rel density] 1.010 Normal 1.005-1.03 0 [facility] Comment on above: Order Comment: Speci men Type: URINE SPECIMENOrdering Facility: [facility] Address: [address] [place] [address] Performed By: #### 2 4356-8 ####[facility]CL[facility] [id number] [place] [address] [place] Urobilinogen Ql (U) 0.2 EU/dL Normal 0.2-1.0 EU/dL [facility] Comment on above: Order Comment: Speci men Type: URINE SPECIMENOrdering Facility: [facility] Address: [address] [place] [address] Performed By: #### 2 4356-8 ####[facility]CL[facility] [id number] [place] [address] [place] WBC LM.HPF (Urine sed) [#/Area] 0-5 /HPF Normal 0-5 /HPF [facility] Comment on above: Order Comment: Speci men Type: URINE SPECIMENOrdering Facility: [facility] Address: [address] [place] [address] Performed By: #### 2 4356-8 ####[facility]CL[facility] [id number] [address] [address] [place] Vit B12 [facility] 024 Cobalamin (Vitamin B12) [Mass/Vol] 516 pg/mL Normal 232-1245 [facility] Comment on above: Order Comment: Speci men Type: BLOOD SPECIMENOrdering Facility: [facility] Address: [address] [place] [address] [place] [address] Performed By: #### 2 731-8, 87664-9, 2132-9 ####[facility] LABCLIA [id number] [place] [id number] [facility] ----- WHITNEY RUIZ ([id number]) 1945 F Date Time Provider Department 12/07/23 [facility] BR[facility] During your visit today, we recorded the following information about you: Roula Morales LPN 12/07/2023 11:42 AM Signed Pt calls to report provider prescribed prednisone 10 mg taper for sinus problem. Pt reports she finished prednisone and it did not help sinus problem. Pt reports she still has nasal congestion, sinus and head pressure. Pt denies fever. Pt reports provider had stated if prednisone did not work then provider may prescribe clindamycin. Pt reports she read the side effects of clindamycin on an older person and does not want to take it if there is something else that can be prescribed. TIEN Haddad Rosa, APRN.CIRCUIT TESTER 12/10/2023 9:40 AM Signed Please see if symptoms have improved any at this point or if still persistent? If still having issues we can send the clindamycin at this time but if getting better then I would not recommend it. Sadia Small LPN 12/10/2023 3:45 PM Signed Attempted to call, vm is full, will try again later. Sadia PageCorinTIEN 12/10/2023 4:26 PM Signed Patient returned call and went over notes from Kojo Frederick BREAD WRAPPER OPERATOR, patient said symptoms have been persistent, she does not feel comfortable taking Clindamycin rx. Patient asking for something else, fear of getting C-diff. Patient uses [facility] for her pharmacy. Please advise Kojo Frederick APRN.CIRCUIT TESTER 12/11/2023 9:05 AM Signed IT looks like she has taken cefdinir in the past and tolerated this well. Script for cefdinir sent to [facility]. Please let her know. Thanks. Cem Micaela, LPN 12/11/2023 11:47 AM Signed Attempted to contact patient but no answer and voice mailbox is full. [employer] message sent Allergies As of Date: 12/07/2023 Noted Allergy Reaction CODEINE 04/24/2006 12 - Shortness of Breath VICODIN (HYDROCODONE-ACETAMINOPHE *08/10/2006 5 - Intolerance Comments: cardiac arrest ADHESIVE 03/27/2010 2 - Rash AUGMENTIN (AMOXICILLIN-POT CLAVUL*03/09/2012 12 - Shortness of Breath Comments: Called and complained that caused SOB BIAXIN (CLARITHROMYCIN) 02/16/2013 1 - Mental Status Change CARDIZEM (DILTIAZEM) 03/16/2019 5 - Intolerance Comments: itching CIPROFLOXACIN 08/04/2013 14 - Other: See Comments Comments: Muscle pain CLONIDINE 07/06/2013 5 - Intolerance Comments: low heart rate to 42; BP also dropped; tried patch and was okay for a while but then stopped since affected thinking COREG (CARVEDILOL) 10/04/2019 5 - Intolerance Comments: grumpy, runny nose CRESTOR (ROSUVASTATIN CALCIUM) 09/11/2009 5 - Intolerance Comments: muscle aches all over CYMBALTA (DULOXETINE) 08/14/2014 14 - Other: See Comments Comments: Elevated BP and blood sugar went up DICYCLOMINE 05/19/2013 12 - Shortness of Breath DIOVAN (VALSARTAN) 11/17/2017 7 - Swelling Comments: In feet, legs AND ankles DOXYCYCLINE 03/11/2012 11 - Vomiting Comments: Vomiting after the first dose, intense. FLAGYL (METRONIDAZOLE) 02/16/2013 9 - Itching GUAIFENESIN-SODIUM CITRATE 04/24/2006 5 - Intolerance Comments: jittery LEVOFLOXACIN 08/04/2013 14 - Other: See Comments Comments: Muscle pain LOSARTAN 10/04/2019 14 - Other: See Comments Comments: Made me lose hair. Low back pain, stomach upset LOVASTATIN 09/11/2009 5 - Intolerance Comments: Muscle aches all over MOBIC (MELOXICAM) 10/12/2007 Comments: lips swell MORPHINE 10/06/2011 9 - Itching Comments: possibly was from the IV or tape since was from IV morphine; only affected arm of hand had IV in NIFEDIPINE 03/16/2019 5 - Intolerance Comments: palpitations; also to see if runny nose resolved (did not) NORVASC (AMLODIPINE BESYLATE) 10/20/2017 7 - Swelling SULFA (SULFONAMIDE ANTIBIOTICS) 04/24/2006 2 - Rash ULTRAVIST (IOPROMIDE) 01/18/2010 14 - Other: See Comments Comments: Pt sts with previous cat scan she had delayed chest tightness Date Reviewed: 11/11/2023 Reviewed by: Lida Blue LPN - Fully Assessed Reason for Visit: Sinus Problem [99] Primary Visit Diagnosis:Bacterial sinusitis [J32.9, B96.89] Order(s):cefdinir (OMNICEF) 300 mg capsuleTake 1 capsule by mouth two times a day for 10 days.Disp: 20 capsuleRfl: 0 Prescriptions as of 12/11/2023 - cefdinir (OMNICEF) 300 mg capsule Take 1 capsule by mouth two times a day for 10 days. - hydrocortisone 2.5 % cream Apply 1 application to affected area three times a day as needed (itchy skin lesion on chest). Apply thin layer as directed - torsemide (DEMADEX) 10 mg tablet Take 1 tablet by mouth once daily as needed (edema). - Simethicone 125 mg chewable tablet Take 1 tablet by mouth every 6 hours as needed. - blood sugar diagnostic (BLOOD GLUCOSE TEST) test strip Test blood sugar 1 time daily. Dx: Type 2 DM - Controlled E11.9 Insuli (more content not included)... Normal [facility]-REACTIVE PROTEINon 024 CRP [Mass/Vol] mg/dL NINF - 0.9 mg/dL [facility] HbA1c (Bld)on 11-12-2023 Average glucose Estimated from glycated hemoglobin (Bld) [Mass/Vol] 148 mg/dL [facility] Comment on above: eAG: (Estimated aver age glucose) is a calculated value from HgbA1c and is benefits representative of the average blood glucose level in the last 2-3 month period. HbA1c (Bld) [Mass fraction] 6.8 % High 4.3 - 5.6 % [facility] Comment on above: [place] Diabetes As sociation guidelines indicate that patients with HgbA1c in the range 5.7-6.4% are at increased risk for development of diabetes, and intervention by lifestyle modification may be beneficial. HgbA1c greater or equal to 6.5% is considered diagnostic of diabetes. Interpretation and review of laboratory results Abnormal [facility] MAGNESIUMon 11-12-2023 Magnesium [Mass/Vol] 2.1 mg/dL 1.7 - 2 .3 mg/dL [facility] No Panel Informationon 11-11 Interpretation and review of laboratory results Normal [facility] 25-hydroxyvitamin D3 [Mass/V ol]on 11-11-2023 Interpretation and review of laboratory results Abnormal [facility] The reference range interval was based on an analysis of samples from healthy adults and may not pertain to children from 0-18 years old. [facility] CBC panel Auto (Bld)on 11-10 Erythrocyte distribution width (RBC) [Ratio] 13.8 % 11.5 - 15.0 % [facility] Hematocrit (Bld) [Volume fraction] 42.8 % 36.0 - 46.0 % [facility] Hemoglobin (Bld) [Mass/Vol] 13.6 g/dL 11.5 - 15.5 g/dL [facility] Interpretation and review of laboratory results Normal [facility] MCH (RBC) [Entitic mass] 29.3 pg 26.0 - 34.0 pg [facility] MCHC (RBC) [Mass/Vol] 31.8 g/dL 30.5 - 36.0 g/dL [facility] MCV (RBC) [Entitic vol] 92.2 fL 80.0 - 100.0 fL [facility] Nucleated RBC (Bld) [#/Vol] NINF [facility] Platelet mean volume (Bld) [Entitic vol] 9.8 fL 9.0 - 12.7 fL [facility] Platelets (Bld) [#/Vol] 330 10*3/uL [facility] RBC (Bld) [#/Vol] 4.64 10*6/uL 3.90 - 5.20 m/uL [facility] WBC (Bld) [#/Vol] 7.84 10*3/uL [facility] Comprehensive metabolic 2000 panelon 11-11-2023 Albumin [Mass/Vol] 4.4 g/dL 3.9 - 4.9 g/dL [facility] ALP [Catalytic activity/Vol] 76 U/L 34 - 123 U/L [facility] ALT [Catalytic activity/Vol] 12 U/L 7 - 38 U/L [facility] Anion gap [Moles/Vol] 10 mmol/L 8 - 15 mmol/L [facility] AST [Catalytic activity/Vol] 15 U/L 13 - 35 U/L [facility] Bilirubin [Mass/Vol] 0.3 mg/dL 0.2 - 1 .3 mg/dL [facility] Calcium [Mass/Vol] 10.3 mg/dL High 8.5 - 10. 2 mg/dL [facility] Chloride [Moles/Vol] 102 mmol/L 98 - 10 7 mmol/L [facility] CO2 [Moles/Vol] 29 mmol/L 22 - 30 mmol/L [facility] Creatinine [Mass/Vol] 0.62 mg/dL 0.58 - 0.96 mg/dL [facility] GFR/1.73 sq M.predicted among non-blacks MDRD (S/P/Bld) [Vol rate/Area] 90 mL/min/{1.73_m2} - PINF [facility] Comment on above: Estimated Glomerular Filtration Rate (eGFR) is calculated using the 2020 CKD-EPI creatinine equation. This equation utilizes serum creatinine, sex, and age as parameters. The creatinine assay has traceable calibration to isotope dilution-mass spectrometry. Refer to KDIGO guidelines for clinical interpretation. In patients with unstable renal function, e.g. those with acute kidney injury, the eGFR may not accurately reflect actual GFR. Glucose [Mass/Vol] 100 mg/dL High 74 - 99 mg/dL [facility] Comment on above: The [place] Diabete s Association (ADA) provides guidance for cutoff values for fasting glucose and random glucose. The ADA defines fasting as no caloric intake for at least 8 hours. Fasting plasma glucose results between 100 to 125 mg/dL indicate increased risk for diabetes (prediabetes). Fasting plasma glucose results greater than or equal to 126 mg/dL meet the criteria for diagnosis of diabetes. In the absence of unequivocal hyperglycemia, results should be confirmed by repeat testing. In a patient with classic symptoms of hyperglycemia or hyperglycemic crisis, random plasma glucose results greater than or equal to 200 mg/dL meet the criteria for diagnosis of diabetes. Reference: Standards of Medical Care in Diabetes 2016, [place] [employer]. Diabetes Care. 2016.39(Suppl 1). Interpretation and review of laboratory results Abnormal [facility] Potassium [Moles/Vol] 4.0 mmol/L 3.7 - 5.1 mmol/L [facility] Protein [Mass/Vol] 7.2 g/dL 6.3 - 8.0 g/dL [facility] Sodium [Moles/Vol] 141 mmol/L 136 - 144 mmol/L [facility] Urea nitrogen [Mass/Vol] 17 mg/dL 7 - 21 mg/dL [facility] ESR Westergren method (Bld) [Velocity]on 11-11-2023 ESR (Bld) [Velocity] 17 mm/h [facility] Interpretation and review of laboratory results Normal [facility] No Panel Informationon 11-10 Interpretation and review of laboratory results Normal [facility] T3, FREEon 11-11-2023 Free T3 [Mass/Vol] 2.9 pg/mL 2.3 - 4.1 pg/mL [facility] T4 FREE/FREE THYROXINEon Free T4 [Mass/Vol] 1.1 ng/dL 0.9 - 1.7 ng/dL [facility] THYROID STIMULATING HORMONEo n 11-11-2023 TSH Qn 0.601 m[IU]/L [facility] VITAMIN D 25 HYDROXYon 11-10 25-hydroxyvitamin D3 [Mass/Vol] 24.2 ng/mL Low 31.0 - 80.0 ng/mL [facility] Comment on above: Classification of 25 OH Vitamin D status: Deficiency/Insufficiency: < or = 30 ng/ml. Sufficiency/Optimal Levels: 31-80 ng/mL Toxicity: > 100 ng/mL. Test performed by chemiluminescent immunoassay. TRANSTHORACIC ECHO (TTE) NGOC Castaneda 09-29-2023 TRANSTHORACIC ECHO (TTE) COMPLETE [place] [id number] [phone], TRANSTHORACIC ECHOCARDIOGRAM REPORT Patient Name: WHITNEY RUIZ Reading Physician: [id number] Amos Loco MD Study Date: 09/29/2023 Ordering Provider: [id number] FRANCK LAMBERT MRN/PID: [id number] Fellow: Nurse: Date of /Age: 1 1945 / 78 years Faro Dealer: ADAM Addison RVT Gender: F Additional Staff: Height: 152.40 cm Admit Date: Weight: 85.28 kg Admission Status: Outpatient BSA / BMI: 1.82 m2 / 36.72 Department Location: [facility] Echo Lab kg/m2 Blood Pressure: 176 /86 mmHg Study Type: TRANSTHORACIC ECHO (TTE) COMPLETE Diagnosis/ICD: Shortness of breath-R06.02; Essential (primary) hypertension-I10 Indication: Dyspnea, HTN CPT Codes: Echo Complete w Full [id number] Patient History: Pertinent History: Previous echo 07-21-22. Study Detail: The following Echo studies were performed: 2D, M-Mode, Doppler and color flow. A bubble study was not performed. The patient was awake. PHYSICIAN INTERPRETATION: Left Ventricle: The left ventricular systolic function is normal, with a visually estimated ejection fraction of 65%. There are no regional wall motion abnormalities. The left ventricular cavity size is normal. There is mild concentric left ventricular hypertrophy. Left ventricular diastolic filling was indeterminate. Left Atrium: The left atrium is mildly dilated. Right Ventricle: The right ventricle is normal in size. There is normal right ventricular global systolic function. Right Atrium: The right atrium is normal in size. Aortic Valve: The aortic valve is probably trileaflet. The aortic valve dimensionless index is 0.82. There is no evidence of aortic valve regurgitation. The peak instantaneous gradient of the aortic valve is 10.8 mmHg. The mean gradient of the aortic valve is 5.0 mmHg. Mitral Valve: The mitral valve is abnormal. There is no evidence of mitral valve regurgitation. Calcified mitral annulus and leaflets; with localized calcified nodule in the posterior leaflet of the mitral valve. Tricuspid Valve: The tricuspid valve is structurally normal. No evidence of tricuspid regurgitation. Pulmonic Valve: The pulmonic valve is not well visualized. There is mild pulmonic valve regurgitation. Pericardium: There is no pericardial effusion noted. There is a pericardial fat pad present. Aorta: The aortic root is normal. Systemic Veins: The inferior vena cava appears to be of normal size. There is IVC inspiratory collapse greater than 50%. CONCLUSIONS: 1. The left ventricular systolic function is normal, with a visually estimated ejection fraction of 65%. 2. Left ventricular diastolic filling was indeterminate. 3. There is normal right ventricular global systolic function. 4. Calcified mitral annulus and leaflets; with localized calcified nodule in the posterior leaflet of the mitral valve. 5. No significant changes compared to prior echocardiogram dated 07/21/2022. QUANTITATIVE DATA SUMMARY: 2D MEASUREMENTS: Normal Ranges: Ao Root d: 2.70 cm (2.0-3.7cm) LAs: 3.90 cm (2.7-4.0cm) IVSd: 1.47 cm (0.6-1.1cm) LVPWd: 1.38 cm (0.6-1.1cm) LVIDd: 4.12 cm (3.9-5.9cm) LVIDs: 2.72 cm LV Mass Index: 123.3 g/m2 LV % FS 34.0 % LA VOLUME: Normal Ranges: LA Vol A4C: 48.7 ml (22+/-6mL/m2) LA Vol A2C: 69.2 ml LA Vol BP: 58.9 ml LA Vol Index A4C: 26.8ml/m2 LA Vol Index A2C: 38.1 ml/m2 LA Vol Index BP: 32.4 ml/m2 LA Area A4C: 18.9 cm2 LA Area A2C: 22.2 cm2 LA Major Murray A4C: 6.2 cm LA Major Murray A2C: 6.0 cm LA Volume Index: 38.6 ml/m2 LA Vol A4C: 48.4 ml LA Vol A2C: 70.3 ml M-MODE MEASUREMENTS: Normal Ranges: AoV Exc: 1.60 cm (1.5-2.5cm) AORTA MEASUREMENTS: Normal Ranges: AoV Exc: 1.60 cm (1.5-2.5cm) LV SYSTOLIC FUNCTION BY 2D PLANIMETRY (MOD): Normal Ranges: EF-A4C View: 67 % (>=55%) EF-A2C View: 39 % EF-Biplane: 57 % EF-Visual: 65 % LV EF Reported: 65 % LV DIASTOLIC FUNCTION: Normal Ranges: MV Peak E: 1.14 m/s (0.7-1.2 m/s) MV Peak A: 1.39 m/s (0.42-0.7 m/s) E/A Ratio: 0.82 (1.0-2.2) MV e' 0.053 m/s (>8.0) MV lateral e' 0.05 m/s MV medial e' 0.05 m/s E/e' Ratio: 21.39 (<8.0) MITRAL VALVE: Normal Ranges: MV DT: 373 msec (150-240msec) MITRAL INSUFFICIENCY: Normal Ranges: MR Vmax: 473.00 cm/s AORTIC VALVE: Normal Ranges: AoV Vmax: 1.64 m/s (<=1.7m/s) AoV Peak P.8 mmHg (<20mmHg) AoV Mean P.0 mmHg (1.7-11.5mmHg) LVOT Max Nico: 1.35 m/s (<=1.1m/s) AoV VTI: 41.10 cm (18-25cm) LVOT VTI: 33.90 cm LVOT Diameter: 1.80 cm (1.8-2.4cm) AoV Area, VTI: 2.10 cm2 (2.5-5.5cm2) AoV Area,Vmax: 2.09 cm2 (2.5-4.5cm2) AoV Dimensionless Index: 0.82 RIGHT VENTRICLE: RV Basal 2.48 cm RV Mid 2.62 cm RV Major 5.1 cm TRICUSPID VALVE/RVSP: Normal Ranges: Peak TR Velocity: 4.10 m/s RV Syst Pressure: 70.2 mmHg (< 30mmHg) PULMONIC VALVE: Normal Ranges: PV Accel Time: 130 msec (>120m (more content not included)... [facility] US Heart TransthoracicOrdere d By: Amos Loco on 09-29-2023 Aortic Valve Area by Continuity of Peak Velocity 2.09 cm2 [facility] Work Phone: Aortic Valve Area by Continuity of VTI 2.10 cm2 [facility] Work Phone: AV mn grad 5.0 mmHg [facility] Work Phone: AV pk grad 10.8 mmHg [facility] Work Phone: AV pk nico 1.64 m/s [facility] Work Phone: LA vol index A/L 32.4 ml/m2 [facility] Work Phone: LV A4C EF 66.7 [facility] Work Phone: LV Biplane EF 57 % [facility] Work Phone: LV EF 65 % [facility] Work Phone: LVIDd 4.12 cm [facility] Work Phone: LVOT diam 1.80 cm [facility] Work Phone: MV E/A ratio 0.82 [facility] Work Phone: RVSP 70.2 mmHg [facility] Work Phone: [facility] Work Phone: [place] [address] [phone], TRANSTHORACIC ECHOCARDIOGRAM REPORT Patient Name: WHITNEY Karimi Physician: [id number] Amos Loco MD Study Date: 09/29/2023 Ordering Provider: [id number] FRANCK LAMBERT MRN/PID: [id number] Fellow: Nurse: Date of /Age: 1 1945 / 78 years Faro Dealer: ADAM Addison RVT Gender: F Additional Staff: Height: 152.40 cm Admit Date: Weight: 85.28 kg Admission Status: Outpatient BSA / BMI: 1.82 m2 / 36.72 Department Location: [facility] Echo Lab kg/m2 Blood Pressure: 176 /86 mmHg Study Type: TRANSTHORACIC ECHO (TTE) COMPLETE Diagnosis/ICD: Shortness of breath-R06.02; Essential (primary) hypertension-I10 Indication: Dyspnea, HTN CPT Codes: Echo Complete w Full Doppler-[id number] Patient History: Pertinent History: Previous echo 07-21-22. Study Detail: The following Echo studies were performed: 2D, M-Mode, Doppler and color flow. A bubble study was not performed. The patient was awake. PHYSICIAN INTERPRETATION: Left Ventricle: The left ventricular systolic function is normal, with a visually estimated ejection fraction of 65%. There are no regional wall motion abnormalities. The left ventricular cavity size is normal. There is mild concentric left ventricular hypertrophy. Left ventricular diastolic filling was indeterminate. Left Atrium: The left atrium is mildly dilated. Right Ventricle: The right ventricle is normal in size. There is normal right ventricular global systolic function. Right Atrium: The right atrium is normal in size. Aortic Valve: The aortic valve is probably trileaflet. The aortic valve dimensionless index is 0.82. There is no evidence of aortic valve regurgitation. The peak instantaneous gradient of the aortic valve is 10.8 mmHg. The mean gradient of the aortic valve is 5.0 mmHg. Mitral Valve: The mitral valve is abnormal. There is no evidence of mitral valve regurgitation. Calcified mitral annulus and leaflets; with localized calcified nodule in the posterior leaflet of the mitral valve. Tricuspid Valve: The tricuspid valve is structurally normal. No evidence of tricuspid regurgitation. Pulmonic Valve: The pulmonic valve is not well visualized. There is mild pulmonic valve regurgitation. Pericardium: There is no pericardial effusion noted. There is a pericardial fat pad present. Aorta: The aortic root is normal. Systemic Veins: The inferior vena cava appears to be of normal size. There is IVC inspiratory collapse greater than 50%. CONCLUSIONS: 1. The left ventricular systolic function is normal, with a visually estimated ejection fraction of 65%. 2. Left ventricular diastolic filling was indeterminate. 3. There is normal right ventricular global systolic function. 4. Calcified mitral annulus and leaflets; with localized calcified nodule in the posterior leaflet of the mitral valve. 5. No significant changes compared to prior echocardiogram dated 07/21/2022. QUANTITATIVE DATA SUMMARY: 2D MEASUREMENTS: Normal Ranges: Ao Root d: 2.70 cm (2.0-3.7cm) LAs: 3.90 cm (2.7-4.0cm) IVSd: 1.47 cm (0.6-1.1cm) LVPWd: 1.38 cm (0.6-1.1cm) LVIDd: 4.12 cm (3.9-5.9cm) LVIDs: 2.72 cm LV Mass Index: 123.3 g/m2 LV % FS 34.0 % LA VOLUME: Normal Ranges: LA Vol A4C: 48.7 ml (22+/-6mL/m2) LA Vol A2C: 69.2 ml LA Vol BP: 58.9 ml LA Vol Index A4C: 26.8ml/m2 LA Vol Index A2C: 38.1 ml/m2 LA Vol Index BP: 32.4 ml/m2 LA Area A4C: 18.9 cm2 LA Area A2C: 22.2 cm2 LA Major Murray A4C: 6.2 cm LA Major Murray A2C: 6.0 cm LA Volume Index: 38.6 ml/m2 LA Vol A4C: 48.4 ml LA Vol A2C: 70.3 ml M-MODE MEASUREMENTS: Normal Ranges: AoV Exc: 1.60 cm (1.5-2.5cm) AORTA MEASUREMENTS: Normal Ranges: AoV Exc: 1.60 cm (1.5-2.5cm) LV SYSTOLIC FUNCTION BY 2D PLANIMETRY (MOD): Normal Ranges: EF-A4C View: 67 % (>=55%) EF-A2C View: 39 % EF-Biplane: 57 % EF-Visual: 65 % LV EF Reported: 65 % LV DIASTOLIC FUNCTION: Normal Ranges: MV Peak E: 1.14 m/s (0.7-1.2 m/s) MV Peak A: 1.39 m/s (0.42-0.7 m/s) E/A Ratio: 0.82 (1.0-2.2) MV e' 0.053 m/s (>8.0) MV lateral e' 0.05 m/s MV medial e' 0.05 m/s E/e' Ratio: 21.39 (<8.0) MITRAL VALVE: Normal Ranges: MV DT: 373 ms (more content not included)... SYNGO Claudy, Amos, MD - 09/29/2023 [place] [address] [phone], TRANSTHORACIC ECHOCARDIOGRAM REPORT Patient Name: WHITNEY RUIZ Reading Physician: [id number] Amos Loco MD Study Date: 09/29/2023 Ordering Provider: [id number] FRANCK LAMBERT MRN/PID: [id number] Fellow: Nurse: Date of /Age: 1 1945 / 78 years Faro Dealer: ADAM Addison RVT Gender: F Additional Staff: Height: 152.40 cm Admit Date: Weight: 85.28 kg Admission Status: Outpatient BSA / BMI: 1.82 m2 / 36.72 Department Location: [facility] Echo Lab kg/m2 Blood Pressure: 176 /86 mmHg Study Type: TRANSTHORACIC ECHO (TTE) COMPLETE Diagnosis/ICD: Shortness of breath-R06.02; Essential (primary) hypertension-I10 Indication: Dyspnea, HTN CPT Codes: Echo Complete w Full [id number] Patient History: Pertinent History: Previous echo 07-21-22. Study Detail: The following Echo studies were performed: 2D, M-Mode, Doppler and color flow. A bubble study was not performed. The patient was awake. PHYSICIAN INTERPRETATION: Left Ventricle: The left ventricular systolic function is normal, with a visually estimated ejection fraction of 65%. There are no regional wall motion abnormalities. The left ventricular cavity size is normal. There is mild concentric left ventricular hypertrophy. Left ventricular diastolic filling was indeterminate. Left Atrium: The left atrium is mildly dilated. Right Ventricle: The right ventricle is normal in size. There is normal right ventricular global systolic function. Right Atrium: The right atrium is normal in size. Aortic Valve: The aortic valve is probably trileaflet. The aortic valve dimensionless index is 0.82. There is no evidence of aortic valve regurgitation. The peak instantaneous gradient of the aortic valve is 10.8 mmHg. The mean gradient of the aortic valve is 5.0 mmHg. Mitral Valve: The mitral valve is abnormal. There is no evidence of mitral valve regurgitation. Calcified mitral annulus and leaflets; with localized calcified nodule in the posterior leaflet of the mitral valve. Tricuspid Valve: The tricuspid valve is structurally normal. No evidence of tricuspid regurgitation. Pulmonic Valve: The pulmonic valve is not well visualized. There is mild pulmonic valve regurgitation. Pericardium: There is no pericardial effusion noted. There is a pericardial fat pad present. Aorta: The aortic root is normal. Systemic Veins: The inferior vena cava appears to be of normal size. There is IVC inspiratory collapse greater than 50%. CONCLUSIONS: 1. The left ventricular systolic function is normal, with a visually estimated ejection fraction of 65%. 2. Left ventricular diastolic filling was indeterminate. 3. There is normal right ventricular global systolic function. 4. Calcified mitral annulus and leaflets; with localized calcified nodule in the posterior leaflet of the mitral valve. 5. No significant changes compared to prior echocardiogram dated 07/21/2022. QUANTITATIVE DATA SUMMARY: 2D MEASUREMENTS: Normal Ranges: Ao Root d: 2.70 cm (2.0-3.7cm) LAs: 3.90 cm (2.7-4.0cm) IVSd: 1.47 cm (0.6-1.1cm) LVPWd: 1.38 cm (0.6-1.1cm) LVIDd: 4.12 cm (3.9-5.9cm) LVIDs: 2.72 cm LV Mass Index: 123.3 g/m2 LV % FS 34.0 % LA VOLUME: Normal Ranges: LA Vol A4C: 48.7 ml (22+/-6mL/m2) LA Vol A2C: 69.2 ml LA Vol BP: 58.9 ml LA Vol Index A4C: 26.8ml/m2 LA Vol Index A2C: 38.1 ml/m2 LA Vol Index BP: 32.4 ml/m2 LA Area A4C: 18.9 cm2 LA Area A2C: 22.2 cm2 LA Major Murray A4C: 6.2 cm LA Major Murray A2C: 6.0 cm LA Volume Index: 38.6 ml/m2 LA Vol A4C: 48.4 ml LA Vol A2C: 70.3 ml M-MODE MEASUREMENTS: Normal Ranges: AoV Exc: 1.60 cm (1.5-2.5cm) AORTA MEASUREMENTS: Normal Ranges: AoV Exc: 1.60 cm (1.5-2.5cm) LV SYSTOLIC FUNCTION BY 2D PLANIMETRY (MOD): Normal Ranges: EF-A4C View: 67 % (>=55%) EF-A2C View: 39 % EF-Biplane: 57 % EF-Visual: 65 % LV EF Reported: 65 % LV DIASTOLIC FUNCTION: Normal Ranges: MV Peak E: 1.14 m/s (0.7-1.2 m/s) MV Peak A: 1.39 m/s (0.42-0.7 m/s) E/A Ratio: 0.82 (1.0-2.2) MV e' 0.053 m/s (>8.0) MV lateral e' 0.05 m/s MV medial e' 0.05 m/s E/e' Ratio: 21.39 (<8.0) MITRAL VALVE: Normal Ranges: MV DT: 373 msec (150-240msec) MITRAL INSUFFICIENCY: Normal Ranges: MR Vmax: 473.00 cm/s AORTIC VALVE: Normal Ranges: AoV Vmax: 1.64 m/s (<=1.7m/s) AoV Peak P.8 mmHg (<20mmHg) AoV Mean P.0 mmHg (1.7-11.5mmHg) LVOT Max Nico: 1.35 m/s (<=1.1m/s) AoV VTI: 41.10 cm (18-25cm) LVOT VTI: 33.90 cm LVOT Diameter: 1.80 cm (1.8-2.4cm) AoV Area, VTI: 2.10 cm2 (2.5-5.5cm2) AoV Area,Vmax: 2.09 cm2 (2.5-4.5cm2) AoV Dimensionless Index: 0.82 RIGHT VENTRICLE: RV Basal 2.48 cm RV Mid 2.62 cm RV Major 5.1 cm TRICUSPID VALVE/RVSP: Normal Ranges: Peak TR Velocity: (more content not included)... [facility] Work Phone: STREP A MOLECULAR (POC)on Procedural Control Valid [facility] Strep A (POCT) Negative Negative [facility] VAS US CAROTID ARTERY DUPLE X BILATERALon 09-14-2023 VAS US [place]OT[place] [address] [phone], Vascular Lab Report [facility] US CAROTID ARTERY DUPLEX BILATERAL Patient Name: WHITNEY RUIZ Reading Physician: [id number] Danie Musa MD Study Date: 09/14/2023 Ordering Provider: [id number] FRANCK LAMBERT MRN/PID: [id number] Fellow: Technologist: Wesly Carr RVBonnie Date of /Age: 1 1945 / 78 years Technologist 2: Gender: F Admission Status: Outpatient Location Performed: [facility] Diagnosis/ICD: Other specified symptoms and signs involving the circulatory and respiratory systems-R09.89 CPT Codes: 28225 Cerebrovascular Carotid Duplex scan complete Pertinent History: Known thyroid nodules. CONCLUSIONS: Right Carotid: Findings are consistent with less than 50% stenosis of the right proximal internal carotid artery. The right proximal internal carotid artery is normal. Right external carotid artery appears patent with no evidence of stenosis. No evidence of hemodynamically significant stenosis of the right common carotid artery. The right vertebral artery is patent with antegrade flow. No evidence of hemodynamically significant stenosis in the right subclavian artery. Left Carotid: Findings are consistent with less than 50% stenosis of the left proximal internal carotid artery. The left proximal internal carotid artery is normal. Left external carotid artery appears patent with no evidence of stenosis. No evidence of hemodynamically significant stenosis of the left common carotid artery. The left vertebral artery is patent with antegrade flow. No evidence of hemodynamically significant stenosis in the left subclavian artery. Imaging & Doppler Findings: Right Plaque Morph: The proximal right internal carotid artery demonstrates heterogenous plaque. The right carotid bulb demonstrates calcified plaque. Left Plaque Morph: The proximal left internal carotid artery demonstrates irregular and calcified plaque. The left carotid bulb demonstrates irregular and calcified plaque. Right Left PSV EDV PSV EDV 73 cm/s CCA P 99 cm/s 88 cm/s CCA D 74 cm/s 78 cm/s 21 cm/s ICA P 66 cm/s 17 cm/s 68 cm/s 17 cm/s ICA D 106 cm/s 21 cm/s 128 cm/s ECA 121 cm/s 61 cm/s 11 cm/s Vertebral 47 cm/s 10 cm/s 187 cm/s Subclavian 134 cm/s Right Left ICA/CCA Ratio 0.9 0.9 [id number] Danie Musa MD Final Normal [facility] ECG 12 lead (Clinic Performe d)on 08-20-2023 See scanned image [facility] Work Phone: UA DIP, URINE (POC)on 2023 BILIRUBIN UA (POCT) Negative Negative [facility] CLARITY UA (POCT) Clear [facility] COLOR UA (POCT) Dark yellow [facility] GLUCOSE UA (POCT) Negative Negative mg/dL [facility] Hemoglobin Ql (U) Negative Negative [facility] Interpretation and review of laboratory results Abnormal [facility] KETONE UA (POCT) Negative Negative mg/dL [facility] LEUKOCYTES UA (POCT) Moderate Abnormal Negative [facility] NITRITE UA (POCT) Negative [facility] PH UA (POCT) 5.5 4.5 - 8.0 [facility] Protein Ql (U) Negative Negative mg/dL [facility] SPECIFIC GRAVITY UA (POCT) >=1.030 1.005 - 1.030 [facility] UROBILINOGEN UA (POCT) 0.2 Normal E.U./dL [facility] Location:[address], [place], [place], [id number] [place] [address] POINT OF CARE [facility] XR KNEE LEFT 4+ VIEWSon 06-29 XR KNEE LEFT 4+ VIEWS Interpreted By: Sunil Holguin, STUDY: XR KNEE LEFT 4+ VIEWS; ; 07/23/2023 5:53 pm INDICATION: Signs/Symptoms:pain. COMPARISON: None. ACCESSION NUMBER(S): [id number] ORDERING CLINICIAN: BRADLY TEJEDA FINDINGS: Left knee, four views There is moderate tricompartmental joint space narrowing with osteophytosis. There is chondrocalcinosis. There is a moderate-sized effusion. No fracture dislocation IMPRESSION: Moderate osteoarthritis in the left knee. Chondrocalcinosis which can be seen with CPPD arthropathy. MACRO: None Signed by: Sunil Copeland 07/23/2023 6:00 PM Dictation workstation: [id number] [facility] XR Knee - left 4 Viewson Moderate osteoarthri tis in the left knee. Chondrocalcinosis which can be seen with CPPD arthropathy. MACRO: None Signed by: Sunil Copeland 07/23/2023 6:00 PM Dictation workstation: [id number] [facility] Interpreted By: Sunil Flynn, STUDY: XR KNEE LEFT 4+ VIEWS; ; 07/23/2023 5:53 pm INDICATION: Signs/Symptoms:pain. COMPARISON: None. ACCESSION NUMBER(S): [id number] ORDERING CLINICIAN: BRADLY TEJEDA FINDINGS: Left knee, four views There is moderate tricompartmental joint space narrowing with osteophytosis. There is chondrocalcinosis. There is a moderate-sized effusion. No fracture dislocation [facility] Sunil Copeland MD - 07/23/2023 Interpreted By: Sunil Copeland, STUDY: XR KNEE LEFT 4+ VIEWS; ; 07/23/2023 5:53 pm INDICATION: Signs/Symptoms:pain. COMPARISON: None. ACCESSION NUMBER(S): [id number] ORDERING CLINICIAN: BRADLY TEJEDA FINDINGS: Left knee, four views There is moderate tricompartmental joint space narrowing with osteophytosis. There is chondrocalcinosis. There is a moderate-sized effusion. No fracture dislocation IMPRESSION: Moderate osteoarthritis in the left knee. Chondrocalcinosis which can be seen with CPPD arthropathy. MACRO: None Signed by: Sunil Copeland 07/23/2023 6:00 PM Dictation workstation: [id number] [facility] Work Phone: Radiology Study observation (narrative) [facility] Work Phone: XR Knee - left 4 ViewsOrdere d By: Sunil Copeland on 07-23-2023 [facility] Work Phone: XR SHOULDER GENERAL 3V OR MO RE AP/TRUE AP/OTHER RIGHTon 05-05-2023 [facility] XR Shoulder - right 3 Viewso n 05-05-2023 IMPRESSION: No acute osseous abnormality Splitting Machine Feeder: [facility] Transcribe Date/Time: May 05 2023 5:10P Dictated by : NYDIA PAZ MD This examination was interpreted and the report reviewed and electronically signed by: NYDIA PAZ MD on May 05 2023 5:13PM EST DIVISION OF RADIOLOGY * * *Final Report* * * DATE OF EXAM: May 05 2023 11:55AM WOX 5253 - XR SHLDR >/=3V AP/ISIDRO AP/OTHR RT / PROCEDURE REASON: multiple diagnoses * * * * Physician Interpretation * * * * EXAMINATION: XR SHLDR >/=3V AP/ISIDRO AP/OTHR RT CLINICAL HISTORY: Chronic right shoulder pain Technique: XR SHLDR >/=3V AP/ISIDRO AP/OTHR RT -- RIGHT with 3 views on 3 images Comparison: None RESULT: No acute fracture or dislocation. Mild right glenohumeral joint space narrowing. DIVISION OF RADIOLOGY Provider, [facility] - 05/05/2023 * * *Final Report* * * DATE OF EXAM: May 05 2023 11:55AM WOX 5253 - XR SHLDR >/=3V AP/ISIDRO AP/OTHR RT / PROCEDURE REASON: multiple diagnoses * * * * Physician Interpretation * * * * EXAMINATION: XR SHLDR >/=3V AP/ISIDRO AP/OTHR RT CLINICAL HISTORY: Chronic right shoulder pain Technique: XR SHLDR >/=3V AP/ISIDRO AP/OTHR RT -- RIGHT with 3 views on 3 images Comparison: None RESULT: No acute fracture or dislocation. Mild right glenohumeral joint space narrowing. IMPRESSION IMPRESSION: No acute osseous abnormality Splitting Machine Feeder: [facility] Transcribe Date/Time: May 05 2023 5:10P Dictated by : NYDIA PAZ MD This examination was interpreted and the report reviewed and electronically signed by: NYDIA PAZ MD on May 05 2023 5:13PM EST [facility] Radiology Study observation (narrative) [facility] XR Shoulder - right 3 ViewsO rdered By: [facility] Provider on 05-05-2023 [facility] ALLERGEN, RESPIRATORY PROFIL E IGEon 01-09-2023 A. alternata IgE Qn (S) <0.10 Normal <0.10 [facility] Comment on above: Order Comment: Inter pretation Scale <0.10 kU/L - Class 0 Allergen: ABSENT OR UNDETECTABLE ALLERGEN SPECIFIC IgE 0.10-0.34 kU/L - Class 0/1 Allergen: EQUIVOCAL LEVEL OF ALLERGEN SPECIFIC IgE 0.35-0.69 kU/L - Class 1 Allergen: LOW LEVEL OF ALLERGEN SPECIFIC IgE 0.70-3.49 kU/L - Class 2 Allergen: MODERATE LEVEL OF ALLERGEN SPECIFIC IgE 3.50-17.49 kU/L - Class 3 Allergen: HIGH LEVEL OF ALLERGEN SPECIFIC IgE 17.50-49.99 kU/L - Class 4 Allergen: VERY HIGH LEVEL OF ALLERGEN SPECIFIC IgE 50.00-100.00 kU/L - Class 5 Allergen: ULTRA HIGH LEVEL OF ALLERGEN SPECIFIC IgE >100.00 kU/L - Class 6 Allergen: EXTREMELY HIGH LEVEL OF ALLERGEN SPECIFIC IgE Performed By: #### I CPA2 #### SAUNDRA Nash ([id number]) [facility] ([facility]) [address] [place] [address] A. fumigatus IgE Qn (S) <0.10 Normal <0.10 [facility] Comment on above: Order Comment: Inter pretation Scale <0.10 kU/L - Class 0 Allergen: ABSENT OR UNDETECTABLE ALLERGEN SPECIFIC IgE 0.10-0.34 kU/L - Class 0/1 Allergen: EQUIVOCAL LEVEL OF ALLERGEN SPECIFIC IgE 0.35-0.69 kU/L - Class 1 Allergen: LOW LEVEL OF ALLERGEN SPECIFIC IgE 0.70-3.49 kU/L - Class 2 Allergen: MODERATE LEVEL OF ALLERGEN SPECIFIC IgE 3.50-17.49 kU/L - Class 3 Allergen: HIGH LEVEL OF ALLERGEN SPECIFIC IgE 17.50-49.99 kU/L - Class 4 Allergen: VERY HIGH LEVEL OF ALLERGEN SPECIFIC IgE 50.00-100.00 kU/L - Class 5 Allergen: ULTRA HIGH LEVEL OF ALLERGEN SPECIFIC IgE >100.00 kU/L - Class 6 Allergen: EXTREMELY HIGH LEVEL OF ALLERGEN SPECIFIC IgE Performed By: #### I CPA2 #### SAUNDRA Nash ([id number]) [facility] [place] [address] Pan[place]ian house dust mite IgE Qn (S) <0.10 Normal <0.10 [facility] Comment on above: Order Comment: Inter pretation Scale <0.10 kU/L - Class 0 Allergen: ABSENT OR UNDETECTABLE ALLERGEN SPECIFIC IgE 0.10-0.34 kU/L - Class 0/1 Allergen: EQUIVOCAL LEVEL OF ALLERGEN SPECIFIC IgE 0.35-0.69 kU/L - Class 1 Allergen: LOW LEVEL OF ALLERGEN SPECIFIC IgE 0.70-3.49 kU/L - Class 2 Allergen: MODERATE LEVEL OF ALLERGEN SPECIFIC IgE 3.50-17.49 kU/L - Class 3 Allergen: HIGH LEVEL OF ALLERGEN SPECIFIC IgE 17.50-49.99 kU/L - Class 4 Allergen: VERY HIGH LEVEL OF ALLERGEN SPECIFIC IgE 50.00-100.00 kU/L - Class 5 Allergen: ULTRA HIGH LEVEL OF ALLERGEN SPECIFIC IgE >100.00 kU/L - Class 6 Allergen: EXTREMELY HIGH LEVEL OF ALLERGEN SPECIFIC IgE Performed By: #### I CPA2 #### SAUNDRA Nash ([id number]) [facility] ([facility]) [address] [place] [address] [place]erm[place] grass IgE Qn (S) <0.10 Normal <0.10 [facility] Comment on above: Order Comment: Inter pretation Scale <0.10 kU/L - Class 0 Allergen: ABSENT OR UNDETECTABLE ALLERGEN SPECIFIC IgE 0.10-0.34 kU/L - Class 0/1 Allergen: EQUIVOCAL LEVEL OF ALLERGEN SPECIFIC IgE 0.35-0.69 kU/L - Class 1 Allergen: LOW LEVEL OF ALLERGEN SPECIFIC IgE 0.70-3.49 kU/L - Class 2 Allergen: MODERATE LEVEL OF ALLERGEN SPECIFIC IgE 3.50-17.49 kU/L - Class 3 Allergen: HIGH LEVEL OF ALLERGEN SPECIFIC IgE 17.50-49.99 kU/L - Class 4 Allergen: VERY HIGH LEVEL OF ALLERGEN SPECIFIC IgE 50.00-100.00 kU/L - Class 5 Allergen: ULTRA HIGH LEVEL OF ALLERGEN SPECIFIC IgE >100.00 kU/L - Class 6 Allergen: EXTREMELY HIGH LEVEL OF ALLERGEN SPECIFIC IgE Performed By: #### I CPA2 #### SAUNDRA Nash ([id number]) [facility] ([facility]) [address] [place] [address] Boxelder IgE Qn (S) <0.10 Normal <0.10 [facility] Comment on above: Order Comment: Inter pretation Scale <0.10 kU/L - Class 0 Allergen: ABSENT OR UNDETECTABLE ALLERGEN SPECIFIC IgE 0.10-0.34 kU/L - Class 0/1 Allergen: EQUIVOCAL LEVEL OF ALLERGEN SPECIFIC IgE 0.35-0.69 kU/L - Class 1 Allergen: LOW LEVEL OF ALLERGEN SPECIFIC IgE 0.70-3.49 kU/L - Class 2 Allergen: MODERATE LEVEL OF ALLERGEN SPECIFIC IgE 3.50-17.49 kU/L - Class 3 Allergen: HIGH LEVEL OF ALLERGEN SPECIFIC IgE 17.50-49.99 kU/L - Class 4 Allergen: VERY HIGH LEVEL OF ALLERGEN SPECIFIC IgE 50.00-100.00 kU/L - Class 5 Allergen: ULTRA HIGH LEVEL OF ALLERGEN SPECIFIC IgE >100.00 kU/L - Class 6 Allergen: EXTREMELY HIGH LEVEL OF ALLERGEN SPECIFIC IgE Performed By: #### I CPA2 #### SAUNDRA Nash ([id number]) [facility] ([facility]) [address] [place] [address] C. herbarum IgE Qn (S) <0.10 Normal <0.10 [facility] Comment on above: Order Comment: Inter pretation Scale <0.10 kU/L - Class 0 Allergen: ABSENT OR UNDETECTABLE ALLERGEN SPECIFIC IgE 0.10-0.34 kU/L - Class 0/1 Allergen: EQUIVOCAL LEVEL OF ALLERGEN SPECIFIC IgE 0.35-0.69 kU/L - Class 1 Allergen: LOW LEVEL OF ALLERGEN SPECIFIC IgE 0.70-3.49 kU/L - Class 2 Allergen: MODERATE LEVEL OF ALLERGEN SPECIFIC IgE 3.50-17.49 kU/L - Class 3 Allergen: HIGH LEVEL OF ALLERGEN SPECIFIC IgE 17.50-49.99 kU/L - Class 4 Allergen: VERY HIGH LEVEL OF ALLERGEN SPECIFIC IgE 50.00-100.00 kU/L - Class 5 Allergen: ULTRA HIGH LEVEL OF ALLERGEN SPECIFIC IgE >100.00 kU/L - Class 6 Allergen: EXTREMELY HIGH LEVEL OF ALLERGEN SPECIFIC IgE Performed By: #### I CPA2 #### SAUNDRA Nash ([id number]) [facility] ([facility]) [address] [place] [address] [place] Pollen IgE Qn (S) <0.10 Normal <0.10 [facility] Comment on above: Order Comment: Inter pretation Scale <0.10 kU/L - Class 0 Allergen: ABSENT OR UNDETECTABLE ALLERGEN SPECIFIC IgE 0.10-0.34 kU/L - Class 0/1 Allergen: EQUIVOCAL LEVEL OF ALLERGEN SPECIFIC IgE 0.35-0.69 kU/L - Class 1 Allergen: LOW LEVEL OF ALLERGEN SPECIFIC IgE 0.70-3.49 kU/L - Class 2 Allergen: MODERATE LEVEL OF ALLERGEN SPECIFIC IgE 3.50-17.49 kU/L - Class 3 Allergen: HIGH LEVEL OF ALLERGEN SPECIFIC IgE 17.50-49.99 kU/L - Class 4 Allergen: VERY HIGH LEVEL OF ALLERGEN SPECIFIC IgE 50.00-100.00 kU/L - Class 5 Allergen: ULTRA HIGH LEVEL OF ALLERGEN SPECIFIC IgE >100.00 kU/L - Class 6 Allergen: EXTREMELY HIGH LEVEL OF ALLERGEN SPECIFIC IgE Performed By: #### I CPA2 #### SAUNDRA Nash ([id number]) [facility] ([facility]) [address] [place] [address] Cat dander IgE Qn (S) <0.10 Normal <0.10 [facility] Comment on above: Order Comment: Inter pretation Scale <0.10 kU/L - Class 0 Allergen: ABSENT OR UNDETECTABLE ALLERGEN SPECIFIC IgE 0.10-0.34 kU/L - Class 0/1 Allergen: EQUIVOCAL LEVEL OF ALLERGEN SPECIFIC IgE 0.35-0.69 kU/L - Class 1 Allergen: LOW LEVEL OF ALLERGEN SPECIFIC IgE 0.70-3.49 kU/L - Class 2 Allergen: MODERATE LEVEL OF ALLERGEN SPECIFIC IgE 3.50-17.49 kU/L - Class 3 Allergen: HIGH LEVEL OF ALLERGEN SPECIFIC IgE 17.50-49.99 kU/L - Class 4 Allergen: VERY HIGH LEVEL OF ALLERGEN SPECIFIC IgE 50.00-100.00 kU/L - Class 5 Allergen: ULTRA HIGH LEVEL OF ALLERGEN SPECIFIC IgE >100.00 kU/L - Class 6 Allergen: EXTREMELY HIGH LEVEL OF ALLERGEN SPECIFIC IgE Performed By: #### I CPA2 #### SAUNDRA Nash ([id number]) [facility] ([facility]) [address] [place] [address] Cockroach IgE Qn (S) <0.10 Normal <0.10 [facility] Comment on above: Order Comment: Inter pretation Scale <0.10 kU/L - Class 0 Allergen: ABSENT OR UNDETECTABLE ALLERGEN SPECIFIC IgE 0.10-0.34 kU/L - Class 0/1 Allergen: EQUIVOCAL LEVEL OF ALLERGEN SPECIFIC IgE 0.35-0.69 kU/L - Class 1 Allergen: LOW LEVEL OF ALLERGEN SPECIFIC IgE 0.70-3.49 kU/L - Class 2 Allergen: MODERATE LEVEL OF ALLERGEN SPECIFIC IgE 3.50-17.49 kU/L - Class 3 Allergen: HIGH LEVEL OF ALLERGEN SPECIFIC IgE 17.50-49.99 kU/L - Class 4 Allergen: VERY HIGH LEVEL OF ALLERGEN SPECIFIC IgE 50.00-100.00 kU/L - Class 5 Allergen: ULTRA HIGH LEVEL OF ALLERGEN SPECIFIC IgE >100.00 kU/L - Class 6 Allergen: EXTREMELY HIGH LEVEL OF ALLERGEN SPECIFIC IgE Performed By: #### I CPA2 #### SAUNDRA Nash ([id number]) [facility] ([facility]) [address] [place] [address] Common Pigweed IgE Qn (S) <0.10 Normal <0.10 [facility] Comment on above: Order Comment: Inter pretation Scale <0.10 kU/L - Class 0 Allergen: ABSENT OR UNDETECTABLE ALLERGEN SPECIFIC IgE 0.10-0.34 kU/L - Class 0/1 Allergen: EQUIVOCAL LEVEL OF ALLERGEN SPECIFIC IgE 0.35-0.69 kU/L - Class 1 Allergen: LOW LEVEL OF ALLERGEN SPECIFIC IgE 0.70-3.49 kU/L - Class 2 Allergen: MODERATE LEVEL OF ALLERGEN SPECIFIC IgE 3.50-17.49 kU/L - Class 3 Allergen: HIGH LEVEL OF ALLERGEN SPECIFIC IgE 17.50-49.99 kU/L - Class 4 Allergen: VERY HIGH LEVEL OF ALLERGEN SPECIFIC IgE 50.00-100.00 kU/L - Class 5 Allergen: ULTRA HIGH LEVEL OF ALLERGEN SPECIFIC IgE >100.00 kU/L - Class 6 Allergen: EXTREMELY HIGH LEVEL OF ALLERGEN SPECIFIC IgE Performed By: #### I CPA2 #### SAUNDRA Nash ([id number]) [facility] ([facility]) [address] [place] [address] Common Ragweed IgE Qn (S) <0.10 Normal <0.10 [facility] Comment on above: Order Comment: Inter pretation Scale <0.10 kU/L - Class 0 Allergen: ABSENT OR UNDETECTABLE ALLERGEN SPECIFIC IgE 0.10-0.34 kU/L - Class 0/1 Allergen: EQUIVOCAL LEVEL OF ALLERGEN SPECIFIC IgE 0.35-0.69 kU/L - Class 1 Allergen: LOW LEVEL OF ALLERGEN SPECIFIC IgE 0.70-3.49 kU/L - Class 2 Allergen: MODERATE LEVEL OF ALLERGEN SPECIFIC IgE 3.50-17.49 kU/L - Class 3 Allergen: HIGH LEVEL OF ALLERGEN SPECIFIC IgE 17.50-49.99 kU/L - Class 4 Allergen: VERY HIGH LEVEL OF ALLERGEN SPECIFIC IgE 50.00-100.00 kU/L - Class 5 Allergen: ULTRA HIGH LEVEL OF ALLERGEN SPECIFIC IgE >100.00 kU/L - Class 6 Allergen: EXTREMELY HIGH LEVEL OF ALLERGEN SPECIFIC IgE Performed By: #### I CPA2 #### SAUNDRA Nash ([id number]) [facility] ([facility]) [address] [place] [address] [place] IgE Qn (S) <0.10 Normal <0.10 [facility] Comment on above: Order Comment: Inter pretation Scale <0.10 kU/L - Class 0 Allergen: ABSENT OR UNDETECTABLE ALLERGEN SPECIFIC IgE 0.10-0.34 kU/L - Class 0/1 Allergen: EQUIVOCAL LEVEL OF ALLERGEN SPECIFIC IgE 0.35-0.69 kU/L - Class 1 Allergen: LOW LEVEL OF ALLERGEN SPECIFIC IgE 0.70-3.49 kU/L - Class 2 Allergen: MODERATE LEVEL OF ALLERGEN SPECIFIC IgE 3.50-17.49 kU/L - Class 3 Allergen: HIGH LEVEL OF ALLERGEN SPECIFIC IgE 17.50-49.99 kU/L - Class 4 Allergen: VERY HIGH LEVEL OF ALLERGEN SPECIFIC IgE 50.00-100.00 kU/L - Class 5 Allergen: ULTRA HIGH LEVEL OF ALLERGEN SPECIFIC IgE >100.00 kU/L - Class 6 Allergen: EXTREMELY HIGH LEVEL OF ALLERGEN SPECIFIC IgE Performed By: #### I CPA2 #### SAUNDRA Nash ([id number]) [facility] ([facility]) [address] [place] [address] Dog dander IgE Qn (S) <0.10 Normal <0.10 [facility] Comment on above: Order Comment: Inter pretation Scale <0.10 kU/L - Class 0 Allergen: ABSENT OR UNDETECTABLE ALLERGEN SPECIFIC IgE 0.10-0.34 kU/L - Class 0/1 Allergen: EQUIVOCAL LEVEL OF ALLERGEN SPECIFIC IgE 0.35-0.69 kU/L - Class 1 Allergen: LOW LEVEL OF ALLERGEN SPECIFIC IgE 0.70-3.49 kU/L - Class 2 Allergen: MODERATE LEVEL OF ALLERGEN SPECIFIC IgE 3.50-17.49 kU/L - Class 3 Allergen: HIGH LEVEL OF ALLERGEN SPECIFIC IgE 17.50-49.99 kU/L - Class 4 Allergen: VERY HIGH LEVEL OF ALLERGEN SPECIFIC IgE 50.00-100.00 kU/L - Class 5 Allergen: ULTRA HIGH LEVEL OF ALLERGEN SPECIFIC IgE >100.00 kU/L - Class 6 Allergen: EXTREMELY HIGH LEVEL OF ALLERGEN SPECIFIC IgE Performed By: #### I CPA2 #### SAUNDRA Nash ([id number]) [facility] ([facility]) [address] [place] [address] Iranian plantain IgE Qn (S) <0.10 Normal <0.10 [facility] Comment on above: Order Comment: Inter pretation Scale <0.10 kU/L - Class 0 Allergen: ABSENT OR UNDETECTABLE ALLERGEN SPECIFIC IgE 0.10-0.34 kU/L - Class 0/1 Allergen: EQUIVOCAL LEVEL OF ALLERGEN SPECIFIC IgE 0.35-0.69 kU/L - Class 1 Allergen: LOW LEVEL OF ALLERGEN SPECIFIC IgE 0.70-3.49 kU/L - Class 2 Allergen: MODERATE LEVEL OF ALLERGEN SPECIFIC IgE 3.50-17.49 kU/L - Class 3 Allergen: HIGH LEVEL OF ALLERGEN SPECIFIC IgE 17.50-49.99 kU/L - Class 4 Allergen: VERY HIGH LEVEL OF ALLERGEN SPECIFIC IgE 50.00-100.00 kU/L - Class 5 Allergen: ULTRA HIGH LEVEL OF ALLERGEN SPECIFIC IgE >100.00 kU/L - Class 6 Allergen: EXTREMELY HIGH LEVEL OF ALLERGEN SPECIFIC IgE Performed By: #### I CPA2 #### SAUNDRA Nash ([id number]) [facility] ([facility]) [address] [place] [address] house dust mite IgE Qn (S) <0.10 Normal <0.10 [facility] Comment on above: Order Comment: Inter pretation Scale <0.10 kU/L - Class 0 Allergen: ABSENT OR UNDETECTABLE ALLERGEN SPECIFIC IgE 0.10-0.34 kU/L - Class 0/1 Allergen: EQUIVOCAL LEVEL OF ALLERGEN SPECIFIC IgE 0.35-0.69 kU/L - Class 1 Allergen: LOW LEVEL OF ALLERGEN SPECIFIC IgE 0.70-3.49 kU/L - Class 2 Allergen: MODERATE LEVEL OF ALLERGEN SPECIFIC IgE 3.50-17.49 kU/L - Class 3 Allergen: HIGH LEVEL OF ALLERGEN SPECIFIC IgE 17.50-49.99 kU/L - Class 4 Allergen: VERY HIGH LEVEL OF ALLERGEN SPECIFIC IgE 50.00-100.00 kU/L - Class 5 Allergen: ULTRA HIGH LEVEL OF ALLERGEN SPECIFIC IgE >100.00 kU/L - Class 6 Allergen: EXTREMELY HIGH LEVEL OF ALLERGEN SPECIFIC IgE Performed By: #### I CPA2 #### SAUNDRA Nash ([id number]) [facility] ([facility]) [address] [place] [address] [place] IgE Qn (S) <0.10 Normal <0.10 [facility] Comment on above: Order Comment: Inter pretation Scale <0.10 kU/L - Class 0 Allergen: ABSENT OR UNDETECTABLE ALLERGEN SPECIFIC IgE 0.10-0.34 kU/L - Class 0/1 Allergen: EQUIVOCAL LEVEL OF ALLERGEN SPECIFIC IgE 0.35-0.69 kU/L - Class 1 Allergen: LOW LEVEL OF ALLERGEN SPECIFIC IgE 0.70-3.49 kU/L - Class 2 Allergen: MODERATE LEVEL OF ALLERGEN SPECIFIC IgE 3.50-17.49 kU/L - Class 3 Allergen: HIGH LEVEL OF ALLERGEN SPECIFIC IgE 17.50-49.99 kU/L - Class 4 Allergen: VERY HIGH LEVEL OF ALLERGEN SPECIFIC IgE 50.00-100.00 kU/L - Class 5 Allergen: ULTRA HIGH LEVEL OF ALLERGEN SPECIFIC IgE >100.00 kU/L - Class 6 Allergen: EXTREMELY HIGH LEVEL OF ALLERGEN SPECIFIC IgE Performed By: #### I CPA2 #### SAUNDRA Nash ([id number]) [facility] ([facility]) [address] [place] [address] Pk grass IgE Qn (S) <0.10 Normal <0.10 [facility] Comment on above: Order Comment: Inter pretation Scale <0.10 kU/L - Class 0 Allergen: ABSENT OR UNDETECTABLE ALLERGEN SPECIFIC IgE 0.10-0.34 kU/L - Class 0/1 Allergen: EQUIVOCAL LEVEL OF ALLERGEN SPECIFIC IgE 0.35-0.69 kU/L - Class 1 Allergen: LOW LEVEL OF ALLERGEN SPECIFIC IgE 0.70-3.49 kU/L - Class 2 Allergen: MODERATE LEVEL OF ALLERGEN SPECIFIC IgE 3.50-17.49 kU/L - Class 3 Allergen: HIGH LEVEL OF ALLERGEN SPECIFIC IgE 17.50-49.99 kU/L - Class 4 Allergen: VERY HIGH LEVEL OF ALLERGEN SPECIFIC IgE 50.00-100.00 kU/L - Class 5 Allergen: ULTRA HIGH LEVEL OF ALLERGEN SPECIFIC IgE >100.00 kU/L - Class 6 Allergen: EXTREMELY HIGH LEVEL OF ALLERGEN SPECIFIC IgE Performed By: #### I CPA2 #### SAUNDRA Nash ([id number]) [facility] ([facility]) [address] [place] [address] [place] IgE Qn (S) <0.10 Normal <0.10 [facility] Comment on above: Order Comment: Inter pretation Scale <0.10 kU/L - Class 0 Allergen: ABSENT OR UNDETECTABLE ALLERGEN SPECIFIC IgE 0.10-0.34 kU/L - Class 0/1 Allergen: EQUIVOCAL LEVEL OF ALLERGEN SPECIFIC IgE 0.35-0.69 kU/L - Class 1 Allergen: LOW LEVEL OF ALLERGEN SPECIFIC IgE 0.70-3.49 kU/L - Class 2 Allergen: MODERATE LEVEL OF ALLERGEN SPECIFIC IgE 3.50-17.49 kU/L - Class 3 Allergen: HIGH LEVEL OF ALLERGEN SPECIFIC IgE 17.50-49.99 kU/L - Class 4 Allergen: VERY HIGH LEVEL OF ALLERGEN SPECIFIC IgE 50.00-100.00 kU/L - Class 5 Allergen: ULTRA HIGH LEVEL OF ALLERGEN SPECIFIC IgE >100.00 kU/L - Class 6 Allergen: EXTREMELY HIGH LEVEL OF ALLERGEN SPECIFIC IgE Performed By: #### I CPA2 #### SAUNDRA Nash ([id number]) [facility] ([facility]) [address] [place], [place] [id number] [place] IgE Qn (S) <0.10 Normal <0.10 [facility] Comment on above: Order Comment: Inter pretation Scale <0.10 kU/L - Class 0 Allergen: ABSENT OR UNDETECTABLE ALLERGEN SPECIFIC IgE 0.10-0.34 kU/L - Class 0/1 Allergen: EQUIVOCAL LEVEL OF ALLERGEN SPECIFIC IgE 0.35-0.69 kU/L - Class 1 Allergen: LOW LEVEL OF ALLERGEN SPECIFIC IgE 0.70-3.49 kU/L - Class 2 Allergen: MODERATE LEVEL OF ALLERGEN SPECIFIC IgE 3.50-17.49 kU/L - Class 3 Allergen: HIGH LEVEL OF ALLERGEN SPECIFIC IgE 17.50-49.99 kU/L - Class 4 Allergen: VERY HIGH LEVEL OF ALLERGEN SPECIFIC IgE 50.00-100.00 kU/L - Class 5 Allergen: ULTRA HIGH LEVEL OF ALLERGEN SPECIFIC IgE >100.00 kU/L - Class 6 Allergen: EXTREMELY HIGH LEVEL OF ALLERGEN SPECIFIC IgE Performed By: #### I CPA2 #### SAUNDRA Nash ([id number]) [facility] ([facility]) [address] [place], [place] [id number] [place] IgE Qn (S) <0.10 Normal <0.10 [facility] Comment on above: Order Comment: Inter pretation Scale <0.10 kU/L - Class 0 Allergen: ABSENT OR UNDETECTABLE ALLERGEN SPECIFIC IgE 0.10-0.34 kU/L - Class 0/1 Allergen: EQUIVOCAL LEVEL OF ALLERGEN SPECIFIC IgE 0.35-0.69 kU/L - Class 1 Allergen: LOW LEVEL OF ALLERGEN SPECIFIC IgE 0.70-3.49 kU/L - Class 2 Allergen: MODERATE LEVEL OF ALLERGEN SPECIFIC IgE 3.50-17.49 kU/L - Class 3 Allergen: HIGH LEVEL OF ALLERGEN SPECIFIC IgE 17.50-49.99 kU/L - Class 4 Allergen: VERY HIGH LEVEL OF ALLERGEN SPECIFIC IgE 50.00-100.00 kU/L - Class 5 Allergen: ULTRA HIGH LEVEL OF ALLERGEN SPECIFIC IgE >100.00 kU/L - Class 6 Allergen: EXTREMELY HIGH LEVEL OF ALLERGEN SPECIFIC IgE Performed By: #### I CPA2 #### SAUNDRA Nash ([id number]) [facility] ([facility]) [address] [place] [id number] P. notatum IgE Qn (S) <0.10 Normal <0.10 [facility] Comment on above: Order Comment: Inter pretation Scale <0.10 kU/L - Class 0 Allergen: ABSENT OR UNDETECTABLE ALLERGEN SPECIFIC IgE 0.10-0.34 kU/L - Class 0/1 Allergen: EQUIVOCAL LEVEL OF ALLERGEN SPECIFIC IgE 0.35-0.69 kU/L - Class 1 Allergen: LOW LEVEL OF ALLERGEN SPECIFIC IgE 0.70-3.49 kU/L - Class 2 Allergen: MODERATE LEVEL OF ALLERGEN SPECIFIC IgE 3.50-17.49 kU/L - Class 3 Allergen: HIGH LEVEL OF ALLERGEN SPECIFIC IgE 17.50-49.99 kU/L - Class 4 Allergen: VERY HIGH LEVEL OF ALLERGEN SPECIFIC IgE 50.00-100.00 kU/L - Class 5 Allergen: ULTRA HIGH LEVEL OF ALLERGEN SPECIFIC IgE >100.00 kU/L - Class 6 Allergen: EXTREMELY HIGH LEVEL OF ALLERGEN SPECIFIC IgE Performed By: #### I CPA2 #### SAUNDRA Nash ([id number]) [facility] ([facility]) [address] [place] [address] [place]ec[place] or [place] IgE Qn (S) <0.10 Normal <0.10 [facility] Comment on above: Order Comment: Inter pretation Scale <0.10 kU/L - Class 0 Allergen: ABSENT OR UNDETECTABLE ALLERGEN SPECIFIC IgE 0.10-0.34 kU/L - Class 0/1 Allergen: EQUIVOCAL LEVEL OF ALLERGEN SPECIFIC IgE 0.35-0.69 kU/L - Class 1 Allergen: LOW LEVEL OF ALLERGEN SPECIFIC IgE 0.70-3.49 kU/L - Class 2 Allergen: MODERATE LEVEL OF ALLERGEN SPECIFIC IgE 3.50-17.49 kU/L - Class 3 Allergen: HIGH LEVEL OF ALLERGEN SPECIFIC IgE 17.50-49.99 kU/L - Class 4 Allergen: VERY HIGH LEVEL OF ALLERGEN SPECIFIC IgE 50.00-100.00 kU/L - Class 5 Allergen: ULTRA HIGH LEVEL OF ALLERGEN SPECIFIC IgE >100.00 kU/L - Class 6 Allergen: EXTREMELY HIGH LEVEL OF ALLERGEN SPECIFIC IgE Performed By: #### I CPA2 #### SAUNDRA Nash ([id number]) [facility] ([facility]) [address] [place] [address] [place] IgE Qn (S) <0.10 Normal <0.10 [facility] Comment on above: Order Comment: Inter pretation Scale <0.10 kU/L - Class 0 Allergen: ABSENT OR UNDETECTABLE ALLERGEN SPECIFIC IgE 0.10-0.34 kU/L - Class 0/1 Allergen: EQUIVOCAL LEVEL OF ALLERGEN SPECIFIC IgE 0.35-0.69 kU/L - Class 1 Allergen: LOW LEVEL OF ALLERGEN SPECIFIC IgE 0.70-3.49 kU/L - Class 2 Allergen: MODERATE LEVEL OF ALLERGEN SPECIFIC IgE 3.50-17.49 kU/L - Class 3 Allergen: HIGH LEVEL OF ALLERGEN SPECIFIC IgE 17.50-49.99 kU/L - Class 4 Allergen: VERY HIGH LEVEL OF ALLERGEN SPECIFIC IgE 50.00-100.00 kU/L - Class 5 Allergen: ULTRA HIGH LEVEL OF ALLERGEN SPECIFIC IgE >100.00 kU/L - Class 6 Allergen: EXTREMELY HIGH LEVEL OF ALLERGEN SPECIFIC IgE Performed By: #### I CPA2 #### SAUNDRA Nash ([id number]) [facility] ([facility]) [address] [place] [address] [place] IgE Qn (S) <0.10 Normal <0.10 [facility] Comment on above: Order Comment: Inter pretation Scale <0.10 kU/L - Class 0 Allergen: ABSENT OR UNDETECTABLE ALLERGEN SPECIFIC IgE 0.10-0.34 kU/L - Class 0/1 Allergen: EQUIVOCAL LEVEL OF ALLERGEN SPECIFIC IgE 0.35-0.69 kU/L - Class 1 Allergen: LOW LEVEL OF ALLERGEN SPECIFIC IgE 0.70-3.49 kU/L - Class 2 Allergen: MODERATE LEVEL OF ALLERGEN SPECIFIC IgE 3.50-17.49 kU/L - Class 3 Allergen: HIGH LEVEL OF ALLERGEN SPECIFIC IgE 17.50-49.99 kU/L - Class 4 Allergen: VERY HIGH LEVEL OF ALLERGEN SPECIFIC IgE 50.00-100.00 kU/L - Class 5 Allergen: ULTRA HIGH LEVEL OF ALLERGEN SPECIFIC IgE >100.00 kU/L - Class 6 Allergen: EXTREMELY HIGH LEVEL OF ALLERGEN SPECIFIC IgE Performed By: #### I CPA2 #### SAUNDRA Nash ([id number]) [facility] ([facility]) [address] [place] [address] [place] IgE Qn (S) <0.10 Normal <0.10 [facility] Comment on above: Order Comment: Inter pretation Scale <0.10 kU/L - Class 0 Allergen: ABSENT OR UNDETECTABLE ALLERGEN SPECIFIC IgE 0.10-0.34 kU/L - Class 0/1 Allergen: EQUIVOCAL LEVEL OF ALLERGEN SPECIFIC IgE 0.35-0.69 kU/L - Class 1 Allergen: LOW LEVEL OF ALLERGEN SPECIFIC IgE 0.70-3.49 kU/L - Class 2 Allergen: MODERATE LEVEL OF ALLERGEN SPECIFIC IgE 3.50-17.49 kU/L - Class 3 Allergen: HIGH LEVEL OF ALLERGEN SPECIFIC IgE 17.50-49.99 kU/L - Class 4 Allergen: VERY HIGH LEVEL OF ALLERGEN SPECIFIC IgE 50.00-100.00 kU/L - Class 5 Allergen: ULTRA HIGH LEVEL OF ALLERGEN SPECIFIC IgE >100.00 kU/L - Class 6 Allergen: EXTREMELY HIGH LEVEL OF ALLERGEN SPECIFIC IgE Performed By: #### I CPA2 #### SAUNDRA Nash ([id number]) [facility] ([facility]) [address] [place] [id number] [place] IgE Qn (S) <0.10 Normal <0.10 [facility] Comment on above: Order Comment: Inter pretation Scale <0.10 kU/L - Class 0 Allergen: ABSENT OR UNDETECTABLE ALLERGEN SPECIFIC IgE 0.10-0.34 kU/L - Class 0/1 Allergen: EQUIVOCAL LEVEL OF ALLERGEN SPECIFIC IgE 0.35-0.69 kU/L - Class 1 Allergen: LOW LEVEL OF ALLERGEN SPECIFIC IgE 0.70-3.49 kU/L - Class 2 Allergen: MODERATE LEVEL OF ALLERGEN SPECIFIC IgE 3.50-17.49 kU/L - Class 3 Allergen: HIGH LEVEL OF ALLERGEN SPECIFIC IgE 17.50-49.99 kU/L - Class 4 Allergen: VERY HIGH LEVEL OF ALLERGEN SPECIFIC IgE 50.00-100.00 kU/L - Class 5 Allergen: ULTRA HIGH LEVEL OF ALLERGEN SPECIFIC IgE >100.00 kU/L - Class 6 Allergen: EXTREMELY HIGH LEVEL OF ALLERGEN SPECIFIC IgE Performed By: #### I CPA2 #### SAUNDRA Nash ([id number]) [facility] ([facility]) [id number] [place] [address] Total IgE RAST Qn (S) 73.7 KU/L Normal <=214 [facility] Comment on above: Order Comment: Inter pretation Scale <0.10 kU/L - Class 0 Allergen: ABSENT OR UNDETECTABLE ALLERGEN SPECIFIC IgE 0.10-0.34 kU/L - Class 0/1 Allergen: EQUIVOCAL LEVEL OF ALLERGEN SPECIFIC IgE 0.35-0.69 kU/L - Class 1 Allergen: LOW LEVEL OF ALLERGEN SPECIFIC IgE 0.70-3.49 kU/L - Class 2 Allergen: MODERATE LEVEL OF ALLERGEN SPECIFIC IgE 3.50-17.49 kU/L - Class 3 Allergen: HIGH LEVEL OF ALLERGEN SPECIFIC IgE 17.50-49.99 kU/L - Class 4 Allergen: VERY HIGH LEVEL OF ALLERGEN SPECIFIC IgE 50.00-100.00 kU/L - Class 5 Allergen: ULTRA HIGH LEVEL OF ALLERGEN SPECIFIC IgE >100.00 kU/L - Class 6 Allergen: EXTREMELY HIGH LEVEL OF ALLERGEN SPECIFIC IgE Result Comment: Note : Omalizumab (Xolair, [employer]; humanized IgG1 antihuman IgE Fc) treatment does not significantly interfere with the accuracy of total IgE on the ImmunoCAP (Domee) platform. J Allergy Clin Immunol 2006;117:759-66). Allergens, parasitic diseases, smoking, and alcohol consumption have been reported to increase levels of total IgE in serum. Performed By: #### I CPA2 #### SAUNDRA Nash ([id number]) [facility] ([facility]) [address] [place] [address] [place] IgE Qn (S) <0.10 Normal <0.10 [facility] Comment on above: Order Comment: Inter pretation Scale <0.10 kU/L - Class 0 Allergen: ABSENT OR UNDETECTABLE ALLERGEN SPECIFIC IgE 0.10-0.34 kU/L - Class 0/1 Allergen: EQUIVOCAL LEVEL OF ALLERGEN SPECIFIC IgE 0.35-0.69 kU/L - Class 1 Allergen: LOW LEVEL OF ALLERGEN SPECIFIC IgE 0.70-3.49 kU/L - Class 2 Allergen: MODERATE LEVEL OF ALLERGEN SPECIFIC IgE 3.50-17.49 kU/L - Class 3 Allergen: HIGH LEVEL OF ALLERGEN SPECIFIC IgE 17.50-49.99 kU/L - Class 4 Allergen: VERY HIGH LEVEL OF ALLERGEN SPECIFIC IgE 50.00-100.00 kU/L - Class 5 Allergen: ULTRA HIGH LEVEL OF ALLERGEN SPECIFIC IgE >100.00 kU/L - Class 6 Allergen: EXTREMELY HIGH LEVEL OF ALLERGEN SPECIFIC IgE Performed By: #### I CPA2 #### SAUNDRA Nash ([id number]) [facility] ([facility]) [address] [place] [address] [place] IgE Qn (S) <0.10 Normal <0.10 [facility] Comment on above: Order Comment: Inter pretation Scale <0.10 kU/L - Class 0 Allergen: ABSENT OR UNDETECTABLE ALLERGEN SPECIFIC IgE 0.10-0.34 kU/L - Class 0/1 Allergen: EQUIVOCAL LEVEL OF ALLERGEN SPECIFIC IgE 0.35-0.69 kU/L - Class 1 Allergen: LOW LEVEL OF ALLERGEN SPECIFIC IgE 0.70-3.49 kU/L - Class 2 Allergen: MODERATE LEVEL OF ALLERGEN SPECIFIC IgE 3.50-17.49 kU/L - Class 3 Allergen: HIGH LEVEL OF ALLERGEN SPECIFIC IgE 17.50-49.99 kU/L - Class 4 Allergen: VERY HIGH LEVEL OF ALLERGEN SPECIFIC IgE 50.00-100.00 kU/L - Class 5 Allergen: ULTRA HIGH LEVEL OF ALLERGEN SPECIFIC IgE >100.00 kU/L - Class 6 Allergen: EXTREMELY HIGH LEVEL OF ALLERGEN SPECIFIC IgE Performed By: #### I CPA2 #### SAUNDRA Nash ([id number]) [facility] ([facility]) [address] [place] [address] [place] IgE Qn (S) <0.10 Normal <0.10 [facility] Comment on above: Order Comment: Inter pretation Scale <0.10 kU/L - Class 0 Allergen: ABSENT OR UNDETECTABLE ALLERGEN SPECIFIC IgE 0.10-0.34 kU/L - Class 0/1 Allergen: EQUIVOCAL LEVEL OF ALLERGEN SPECIFIC IgE 0.35-0.69 kU/L - Class 1 Allergen: LOW LEVEL OF ALLERGEN SPECIFIC IgE 0.70-3.49 kU/L - Class 2 Allergen: MODERATE LEVEL OF ALLERGEN SPECIFIC IgE 3.50-17.49 kU/L - Class 3 Allergen: HIGH LEVEL OF ALLERGEN SPECIFIC IgE 17.50-49.99 kU/L - Class 4 Allergen: VERY HIGH LEVEL OF ALLERGEN SPECIFIC IgE 50.00-100.00 kU/L - Class 5 Allergen: ULTRA HIGH LEVEL OF ALLERGEN SPECIFIC IgE >100.00 kU/L - Class 6 Allergen: EXTREMELY HIGH LEVEL OF ALLERGEN SPECIFIC IgE Performed By: #### I CPA2 #### SAUNDRA Nash ([id number]) [facility] ([facility]) [address] [place] [address] [place] IgE Qn (S) <0.10 Normal <0.10 [facility] Comment on above: Order Comment: Inter pretation Scale <0.10 kU/L - Class 0 Allergen: ABSENT OR UNDETECTABLE ALLERGEN SPECIFIC IgE 0.10-0.34 kU/L - Class 0/1 Allergen: EQUIVOCAL LEVEL OF ALLERGEN SPECIFIC IgE 0.35-0.69 kU/L - Class 1 Allergen: LOW LEVEL OF ALLERGEN SPECIFIC IgE 0.70-3.49 kU/L - Class 2 Allergen: MODERATE LEVEL OF ALLERGEN SPECIFIC IgE 3.50-17.49 kU/L - Class 3 Allergen: HIGH LEVEL OF ALLERGEN SPECIFIC IgE 17.50-49.99 kU/L - Class 4 Allergen: VERY HIGH LEVEL OF ALLERGEN SPECIFIC IgE 50.00-100.00 kU/L - Class 5 Allergen: ULTRA HIGH LEVEL OF ALLERGEN SPECIFIC IgE >100.00 kU/L - Class 6 Allergen: EXTREMELY HIGH LEVEL OF ALLERGEN SPECIFIC IgE Performed By: #### I CPA2 #### SAUNDRA Nash ([id number]) [facility] ([facility]) [address] [place] [address] HYPERSENSITIVITY PANELon A. fumigatus 1 Ab Immune diff Ql (S) Not detected Normal None Detected [facility] Comment on above: Performed By: #### H YPER #### [facility] ([id number]) [address] [place] [address] A. fumigatus 6 Ab Immune diff Ql (S) Not detected Normal None Detected [facility] Comment on above: Performed By: #### H YPER #### [facility]) ([id number]) [address] [place] [address] A. pullulans Ab Immune diff Ql (S) Not detected Normal None Detected [facility] Comment on above: Performed By: #### H YPER #### [facility]) ([id number]) [address] [place] [address] [place] serum Ab Immune diff Ql (S) Not detected Normal None Detected [facility] Comment on above: Performed By: #### H YPER #### [facility] ([place]) ([id number]) [address] [place] [address] S. rectivirgula Ab Immune diff Ql (S) Not detected Normal None Detected [facility] Comment on above: Result Comment: Testing includes antibodies directed at Aureobasidium pullulans, Aspergillus fumigatus #1, Aspergillus fumigatus #6, Micropolyspora faeni, and [place] Serum. Performed By: [facility] [address] [place] [address] Decatizer: Keyshawn Logan MD, PhD CLIA Number: [id number] Performed By: #### H YPER #### [facility] ([place]) ([id number]) [address] [place] [address] APTTon 12-24-2022 aPTT Coag (Bld) [Time] 35 s Normal 27 - 38 [facility] Comment on above: Result Comment: Note new reference range as of 09/16/2022 at 10:00am. Performed By: #### T RP #### [place] [address] BNPon 12-24-2022 Natriuretic peptide B (Bld) [Mass/Vol] 266 pg/mL High 0 - 99 [facility] Comment on above: Result Comment: . <1 00 pg/mL - Heart failure unlikely 100-299 pg/mL - Intermediate probability of acute heart . failure exacerbation. Correlate with clinical . context and patient history. >=300 pg/mL - Heart Failure likely. Correlate with clinical . context and patient history. BNP testing is performed using different testing methodology at [facility] than at other [facility]. Direct result comparisons should only be made within the same method. Performed By: #### B NP2 #### [place] [id number] CBC AND DIFFERENTIALon 12-24 % AUTOMATED IMMATURE GRAN 0.4 % Normal 0.0 - 0.9 [facility] Comment on above: Result Comment: Sara ture Granulocyte Count (IG) includes promyelocytes, myelocytes and metamyelocytes but does not include bands. Percent differential counts (%) should be interpreted in the context of the absolute cell counts (cells/L). Performed By: #### T RP #### [address] [address] Basophils (Bld) [#/Vol] 0.04 10*3/uL Normal 0.00 - 0.10 [facility] Comment on above: Performed By: #### T RP #### [address] [address] Basophils/100 WBC (Bld) 0.5 % Normal 0.0 - 2.0 [facility] Comment on above: Performed By: #### T RP #### [address] [address] Eosinophils (Bld) [#/Vol] 0.29 10*3/uL Normal 0.00 - 0.40 [facility] Comment on above: Performed By: #### T RP #### [address] [address] Eosinophils/100 WBC (Bld) 3.5 % Normal 0.0 - 6.0 [facility] Comment on above: Performed By: #### T RP #### [address] [address] Erythrocyte distribution width (RBC) [Ratio] 13.7 % Normal 11.5 - 14.5 [facility] Comment on above: Performed By: #### T RP #### [address] [address] Hematocrit (Bld) [Volume fraction] 38.6 % Normal 36.0 - 46.0 [facility] Comment on above: Performed By: #### T RP #### [address] [address] Hemoglobin (Bld) [Mass/Vol] 12.6 g/dL Normal 12.0 - 16.0 [facility] Comment on above: Performed By: #### T RP #### [address] [address] Lymphocytes (Bld) [#/Vol] 1.40 10*3/uL Normal 0.80 - 3.00 [facility] Comment on above: Performed By: #### T RPHS #### [address] [address] Lymphocytes/100 WBC (Bld) 16.7 % Normal 13.0 - 44.0 [facility] Comment on above: Performed By: #### T RPHS #### [address] [address] MCHC (RBC) [Mass/Vol] 32.6 g/dL Normal 32.0 - 36.0 [facility] Comment on above: Performed By: #### T RPHS #### [address] [address] MCV (RBC) [Entitic vol] 90 fL Normal 80 - 100 [facility]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 7 - 21 mg/dL [facility] FERRITIN BLDon 04-07-2022 Ferritin [Mass/Vol] 237.0 ng/mL High 14.7 - 205.1 ng/mL [facility] FOLATE SERUMon 04-07-2022 Folate [Mass/Vol] 12.5 ng/mL >4.7 ng/mL [facility] Iron and Iron binding capaci ty panelon 04-07-2022 Iron [Mass/Vol] 91 ug/dL 41 - 186 ug/dL [facility] Iron binding capacity [Mass/Vol] 256 ug/dL 232 - 386 ug/dL [facility] Iron/TIBC [Molar ratio] 35.5 % 15.0 - 57.0 % [facility] T3 FREE BLDon 04-07-2022 Free T3 [Mass/Vol] 2.6 pg/mL 2.3 - 4.1 pg/mL [facility] T4 FREE/FREE THYROXon 2022 Free T4 [Mass/Vol] 1.1 ng/dL 0.9 - 1.7 ng/dL [facility] TSH BLDon 04-07-2022 TSH Qn 0.661 m[IU]/L 0.270 - 4.200 mIU/L [facility] VITAMIN B12 BLOODon 04-07-19 Cobalamin (Vitamin B12) [Mass/Vol] 595 pg/mL 232 - 1,245 pg/mL [facility] GLUCOSE-POCTon 03-10-2022 Glucose [Mass/Vol] 107 mg/dL High 74 - 99 [facility] Comment on above: Performed By: #### [facility] #### [place] [address] No Panel InformationOrdered By: Ccf Provider on 02-24-2022 [facility] No Panel Informationon 02-24 Radiology Study observation (narrative) [facility] XR Ankle - right AP and Late ral and obliqueon 02-24-2022 * * *Final Report* * * DATE OF EXAM: Feb 24 2022 10:49AM WOX 5297 - XR ANKLE 3V AP/LAT/OBL RT / PROCEDURE REASON: Pain * * * * Physician Interpretation * * * * RIGHT Ankle and foot HISTORY: 76 years old Clinical information: Pain TECHNIQUE: Images: XR ANKLE 3V AP/LAT/OBL RT, XR FOOT 3V AP/LAT/OBL RT Comparison: RIGHT foot 07/12/2020 RESULT: Findings: Ankle: Small amount of soft tissue swelling is seen laterally No fractures or dislocations are seen. Foot: Large anterior heel spur. Severe narrowing of the first MTP joint marked narrowing of all interphalangeal joints. Small bunion medial distal first metatarsal. Severe narrowing of the second through fifth metatarsal tarsal joints. Moderate narrowing of all the intertarsal joints No fractures or dislocations are seen. DIVISION OF RADIOLOGY Provider, [facility] - 02/24/2022 * * *Final Report* * * DATE OF EXAM: Feb 24 2022 10:49AM WOX 5297 - XR ANKLE 3V AP/LAT/OBL RT / PROCEDURE REASON: Pain * * * * Physician Interpretation * * * * RIGHT Ankle and foot HISTORY: 76 years old Clinical information: Pain TECHNIQUE: Images: XR ANKLE 3V AP/LAT/OBL RT, XR FOOT 3V AP/LAT/OBL RT Comparison: RIGHT foot 07/12/2020 RESULT: Findings: Ankle: Small amount of soft tissue swelling is seen laterally No fractures or dislocations are seen. Foot: Large anterior heel spur. Severe narrowing of the first MTP joint marked narrowing of all interphalangeal joints. Small bunion medial distal first metatarsal. Severe narrowing of the second through fifth metatarsal tarsal joints. Moderate narrowing of all the intertarsal joints No fractures or dislocations are seen. IMPRESSION IMPRESSION: Marked degenerative changes which have progressed since previous study Splitting Machine Feeder: PSCB Transcribe Date/Time: Feb 24 2022 10:51A Dictated by : PAVAN SMITH DO This examination was interpreted and the report reviewed and electronically signed by: PAVAN SMITH DO on Feb 24 2022 10:54AM [facility] XR Foot - right AP and Later al and obliqueon 02-24-2022 * * *Final Report* * * DATE OF EXAM: Nov 28 2022 10:49AM WOX 5337 - XR FOOT 3V AP/LAT/OBL RT / PROCEDURE REASON: Pain * * * * Physician Interpretation * * * * RIGHT Ankle and foot HISTORY: 76 years old Clinical information: Pain TECHNIQUE: Images: XR ANKLE 3V AP/LAT/OBL RT, XR FOOT 3V AP/LAT/OBL RT Comparison: RIGHT foot 07/12/2020 RESULT: Findings: Ankle: Small amount of soft tissue swelling is seen laterally No fractures or dislocations are seen. Foot: Large anterior heel spur. Severe narrowing of the first MTP joint marked narrowing of all interphalangeal joints. Small bunion medial distal first metatarsal. Severe narrowing of the second through fifth metatarsal tarsal joints. Moderate narrowing of all the intertarsal joints No fractures or dislocations are seen. DIVISION OF RADIOLOGY Provider, [facility] - 02/24/2022 * * *Final Report* * * DATE OF EXAM: Feb 24 2022 10:49AM WOX 5337 - XR FOOT 3V AP/LAT/OBL RT / PROCEDURE REASON: Pain * * * * Physician Interpretation * * * * RIGHT Ankle and foot HISTORY: 76 years old Clinical information: Pain TECHNIQUE: Images: XR ANKLE 3V AP/LAT/OBL RT, XR FOOT 3V AP/LAT/OBL RT Comparison: RIGHT foot 07/12/2020 RESULT: Findings: Ankle: Small amount of soft tissue swelling is seen laterally No fractures or dislocations are seen. Foot: Large anterior heel spur. Severe narrowing of the first MTP joint marked narrowing of all interphalangeal joints. Small bunion medial distal first metatarsal. Severe narrowing of the second through fifth metatarsal tarsal joints. Moderate narrowing of all the intertarsal joints No fractures or dislocations are seen. IMPRESSION IMPRESSION: Marked degenerative changes which have progressed since previous study Splitting Machine Feeder: PSCB Transcribe Date/Time: Feb 24 2022 10:51A Dictated by : PAVAN SMITH DO This examination was interpreted and the report reviewed and electronically signed by: PAVAN SMITH DO on Feb 24 2022 10:54AM [facility] APTTon 01-31-2022 aPTT Coag (Silva) [Time] 35 s Normal 26 - 39 [facility] Comment on above: Result Comment: THE APTT IS NO LONGER USED FOR MONITORING UNFRACTIONATED HEPARIN THERAPY. FOR MONITORING HEPARIN THERAPY, USE THE HEPARIN ASSAY. Performed By: #### A PTT #### [address] [address] CBC AND DIFFERENTIALon 01-31 % AUTOMATED IMMATURE GRAN 0.4 % Normal 0.0 - 0.9 [facility] Comment on above: Result Comment: Sara ture Granulocyte Count (IG) includes promyelocytes, myelocytes and metamyelocytes but does not include bands. Percent differential counts (%) should be interpreted in the context of the absolute cell counts (cells/L). Performed By: #### C MP #### [address] [address] Basophils (Bld) [#/Vol] 0.05 10*3/uL Normal 0.00 - 0.10 [facility] Comment on above: Performed By: #### C MP #### [place] [id number] Basophils/100 WBC (Bld) 0.7 % Normal 0.0 - 2.0 [facility] Comment on above: Performed By: #### C MP #### [address] [address] Eosinophils (Bld) [#/Vol] 0.14 10*3/uL Normal 0.00 - 0.40 [facility] Comment on above: Performed By: #### C MP #### [address] [address] Eosinophils/100 WBC (Bld) 1.8 % Normal 0.0 - 6.0 [facility] Comment on above: Performed By: #### C MP #### [address] [address] Erythrocyte distribution width (RBC) [Ratio] 14.1 % Normal 11.5 - 14.5 [facility] Comment on above: Performed By: #### C MP #### [address] [address] Hematocrit (Bld) [Volume fraction] 40.7 % Normal 36.0 - 46.0 [facility] Comment on above: Performed By: #### C MP #### [address] [address] Hemoglobin (Bld) [Mass/Vol] 13.2 g/dL Normal 12.0 - 16.0 [facility] Comment on above: Performed By: #### C MP #### [address] [address] Lymphocytes (Bld) [#/Vol] 1.37 10*3/uL Normal 0.80 - 3.00 [facility] Comment on above: Performed By: #### C MP #### [address] [address] Lymphocytes/100 WBC (Bld) 17.8 % Normal 13.0 - 44.0 [facility] Comment on above: Performed By: #### C MP #### [address] [address] MCHC (RBC) [Mass/Vol] 32.4 g/dL Normal 32.0 - 36.0 [facility] Comment on above: Performed By: #### C MP #### [address] [address] MCV (RBC) [Entitic vol] 90 fL Normal 80 - 100 [facility] Comment on above: Performed By: #### C MP #### [address] [address] Monocytes (Bld) [#/Vol] 0.97 10*3/uL High 0.05 - 0.80 [facility] Comment on above: Performed By: #### C MP #### [address] [address] Monocytes/100 WBC (Bld) 12.6 % Normal 2.0 - 10.0 [facility] Comment on above: Performed By: #### C MP #### [address] [address] Neutrophils (Bld) [#/Vol] 5.13 10*3/uL Normal 1.60 - 5.50 [facility] Comment on above: Result Comment: Perc ent differential counts (%) should be interpreted in the context of the absolute cell counts (cells/L). Performed By: #### C MP #### [address] [address] Neutrophils/100 WBC (Bld) 66.7 % Normal 40.0 - 80.0 [facility] Comment on above: Performed By: #### C MP #### [address] [address] Platelets (Bld) [#/Vol] 319 10*3/uL Normal 150 - 450 [facility] Comment on above: Performed By: #### C MP #### [address] [address] RBC 4.55 x10E12/L Normal 4.00 - 5.20 [facility] Comment on above: Performed By: #### C MP #### [address] [address] WBC (Bld) [#/Vol] 7.7 10*3/uL Normal 4.4 - 11.3 [facility] Comment on above: Performed By: #### C MP #### [address] [address] COMPREHENSIVE PANELon 2021 Albumin [Mass/Vol] 4.0 g/dL Normal 3.4 - 5.0 [facility] Comment on above: Performed By: #### T RPHS #### [address] [address] ALP [Catalytic activity/Vol] 63 U/L Normal 33 - 136 [facility] Comment on above: Performed By: #### T RPHS #### [address] [address] ALT [Catalytic activity/Vol] 10 U/L Normal 7 - 45 [facility] Comment on above: Result Comment: Madelyn ents treated with Sulfasalazine may generate falsely decreased results for ALT. Performed By: #### T RPHS #### [address] [address] Anion gap [Moles/Vol] 11 mmol/L Normal 10 - 20 [facility] Comment on above: Performed By: #### T RP #### [address] [address] AST [Catalytic activity/Vol] 14 U/L Normal 9 - 39 [facility] Comment on above: Performed By: #### T RPHS #### [address] [address] Bilirubin [Mass/Vol] 0.5 mg/dL Normal 0.0 - 1.2 [facility] Comment on above: Performed By: #### T RPHS #### [address] [address] Calcium [Mass/Vol] 9.6 mg/dL Normal 8.6 - 10.3 [facility] Comment on above: Performed By: #### T RPHS #### [address] [address] Chloride [Moles/Vol] 106 mmol/L Normal 98 - 107 [facility] Comment on above: Performed By: #### T RPHS #### [address] [address] Creatinine [Mass/Vol] 0.63 mg/dL Normal 0.50 - 1.05 [facility] Comment on above: Performed By: #### T RPHS #### [address] [address] GFR/1.73 sq M.predicted among non-blacks MDRD (S/P/Bld) [Vol rate/Area] 90 mL/min/{1.73_m2} Normal >90 [facility] Comment on above: Result Comment: CALC ULATIONS OF ESTIMATED GFR ARE PERFORMED USING THE 2020 CKD-EPI STUDY REFIT EQUATION WITHOUT THE RACE VARIABLE FOR THE IDMS-TRACEABLE CREATININE METHODS. https://jasn.asnjournals.org/content//ASN.954159 5192 Performed By: #### T RPHS #### [address] [address] Glucose [Mass/Vol] 132 mg/dL High 74 - 99 [facility] Comment on above: Performed By: #### T RPHS #### [address] [address] HCO3 (Bld) [Moles/Vol] 28 mmol/L Normal 21 - 32 [facility] Comment on above: Performed By: #### T RPHS #### [address] [address] Potassium [Moles/Vol] 4.4 mmol/L Normal 3.5 - 5.3 [facility] Comment on above: Performed By: #### T RPHS #### [address] [address] Protein [Mass/Vol] 6.8 g/dL Normal 6.4 - 8.2 [facility] Comment on above: Performed By: #### T RPHS #### [address] [address] Sodium [Moles/Vol] 141 mmol/L Normal 136 - 145 [facility] Comment on above: Performed By: #### T RPHS #### [address] [address] Urea nitrogen [Mass/Vol] 15 mg/dL Normal 6 - 23 [facility] Comment on above: Performed By: #### T RPHS #### [address] [address] [address] ABDOMEN AND PELVIS WO CON TRASTon 01-31-2022 CT ABDOMEN AND PELVIS WO CONTRAST Patient Name: WHITNEY RUIZ STUDY: CT ABDOMEN AND PELVIS WO CONTRAST; 01/31/2022 12:21 pm INDICATION: abdomial pain, rectal bleeding . COMPARISON: September 14, [address], August 21, 2021 CT pulmonary angiogram ACCESSION NUMBER(S): [id number] ORDERING CLINICIAN: LILLIAN COTE TECHNIQUE: CT of the abdomen and pelvis was performed. Contiguous axial images were obtained at 3 mm slice thickness through the abdomen and pelvis. Coronal and sagittal reconstructions at 3 mm slice thickness were performed. No contrast administered. FINDINGS: Please note that the evaluation of vessels, lymph nodes and organs is limited without intravenous contrast. LOWER CHEST: Similar bibasilar fibrotic change with honeycombing. Similar enlarged cardiac chambers with prominent mitral annular dystrophic calcifications. There are [id number] scattered coronary artery calcifications and aortic calcifications. Redemonstrated scattered benign postinflammatory calcifications involving the right hilum and lung. ABDOMEN: LIVER: Normal morphology without suspicious lesion. Unchanged diffuse benign postinflammatory punctate calcifications. BILE DUCTS: Normal caliber. GALLBLADDER: The gallbladder is surgically absent. PANCREAS: Within normal limits. SPLEEN: Normal size and morphology with persistent diffuse benign postinflammatory punctate calcifications. ADRENAL GLANDS: Within normal limits. KIDNEYS AND URETERS: The kidneys are normal in size and unremarkable in appearance. No hydroureteronephrosis or nephroureterolithiasis is identified. Similar mild prominence right renal pelvis. PELVIS: BLADDER: The urinary bladder is decompressed, limited for evaluation. No evident mass or calculus. REPRODUCTIVE ORGANS: No evident pelvic mass. Uterus not identified. BOWEL: Short-segment focal mural prominence involving the sigmoid colon coronal series 5, image 57 is poorly evaluated by noncontrast technique potentially related to contracted segment versus focal inflammation. Underlying wall lesion not excluded. There is moderately extensive left-sided diverticulosis. No well-delineated significant surrounding inflammatory changes, pneumatosis, or encapsulated fat. Unremarkable appendix. VESSELS: Moderately extensive arterial vascular calcifications without evident aneurysm. 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 No abdominopelvic lymphadenopathy is present. ABDOMINAL WALL: Tiny fat containing periumbilical hernia. BONES: No suspicious osseous lesions. No acute osseous abnormalities identified. There are scattered degenerative changes. Subjective osseous demineralization. IMPRESSION: 1. Minimal focal prominence short-segment sigmoid colon is indeterminate, potentially due to peristalsis, or inflammation with underlying mural lesion not excluded. Attention to this region recommended on follow-up assessment. 2. Marked colonic diverticulosis. 3. Moderate atherosclerosis. 4. Unchanged fibrosis lung bases. 5. Additional findings as reported. Electronically signed by: KEIKO SAM MD Normal [facility] LIPASEon 01-31-2022 Lipase [Catalytic activity/Vol] 12 U/L Normal [facility] Comment on above: Result Comment: Maria Luisa puncture immediately after or during the administration of Metamizole may lead to falsely low results. Testing should be performed immediately prior to Metamizole dosing. G-trcxdt-n-benzoquinone imine (metabolite of Acetaminophen) will generate erroneously low results in samples for patients that have taken toxic doses of acetaminophen. Performed By: #### L IPAS #### [address] [address] PT/INRon 01-31-2022 PT Coag (PPP) [Time] 13.9 s High 9.8 - 13.4 [facility] Comment on above: Performed By: #### P TINR #### [address] [address] PT, INR 1.2 High 0.9 - 1.1 [facility] Comment on above: Performed By: #### P TINR #### [address] [address] Provider Note - ED v3on Provider Note - ED v3 Provider Note: Chart Review: ED NOTES ED NOTES: History of Present Illness: Patient presenting to the emergency department with complaints of rectal bleeding onset today. Patient states that for the past few days she has had vague discomfort in her abdomen. She states today when she went to the bathroom she noticed some rectal bleeding. She reports she does have history of diverticulitis and GI bleeding. She is not on any blood thinners. Patient denies any fevers, dysuria, or back pain. She states that she had a colonoscopy 3 years ago, and reports it was normal at that time. She is not on any blood thinners. Patient denies any other complaints at this time. Past Medical History: HTN, DM, COPD, lower GI bleed, diverticulitis Past surgical History: none Family history: Reviewed and not pertinent to complaint Social history: denies any EtOH or drug use REVIEW OF SYSTEMS: Pertinent negatives and positives noted in the HPI. Otherwise, a complete review of system was negative. PHYSICAL EXAM: Appearance: Alert, oriented , cooperative, in no acute distress. Skin: Intact, dry skin, no lesions, rash, petechiae or purpura. Eyes: PERRLA, EOMs intact, Conjunctiva pink HENT: Normocephalic, atraumatic. Nares patent. No intraoral lesions. Neck: Supple, without meningismus. Pulmonary: Clear bilaterally with good chest wall excursion. Cardiac: Regular rate and rhythm, no rubs, murmurs, or gallops. N Abdomen: Abdomen is soft, nontender, and nondistended. Genitourinary: Exam deferred. Musculoskeletal: Moving all extremeities Neurological: Cranial nerves are grossly intact, grossly normal sensation, no weakness, no focal findings identified. Psychiatric: Appropriate mood and affect. HISTORY OF PRESENTING ILLNESS WHITNEY is a 76 year old Female and was seen by me at 31-Jan-2022 11:32 for a chief complaint of rectal bleeding (Patient to ED reference rectal bleeding. patient went to urinate last night and felt damp after, she then realized she was bleeding with a few clots. Patient also having right side pain that radiates around to her back with abdominal pain x 2 days.) . Triage Information: Most recent Vital Sign Value Date Temp (F): 97 01-31-2022 11:34 Temp (C): 36.1 01-31-2022 11:34 Heart Rate (beats/min): 60 01-31-2022 11:34 Respirations (breaths/min): 18 01-31-2022 11:34 SpO2 (%): 95 01-31-2022 11:34 BP Systolic (mm Hg): 163 01-31-2022 11:34 BP Diastolic (mm Hg): 73 01-31-2022 11:34 PAST MEDICAL HISTORY ALLERGIES/INTOLERANCES: Allergy Allergen: chest tightness Type: Contrast Reaction: Other Allergen: Amlodipine Besylate Type: Drug Reaction: Swelling/Edema Allergen: valsartan Type: Drug Reaction: Swelling/Edema Allergen: dicyclomine Type: Drug Reaction: Other Allergen: meloxicam Type: Drug Reaction: Facial Swelling Allergen: codeine Type: Drug Reaction: Other Allergen: iopromide Type: Drug Reaction: Unknown Allergen: morphine Type: Drug Reaction: Itching Allergen: amoxicillin Type: Drug Reaction: Other Allergen: metronidazole Type: Drug Reaction: Itching Allergen: sulfa drugs Type: Drug Category Reaction: Rash Allergen: Tape - Adhesive, Bandaids, Paper Type: Environment Reaction: Rash Allergen: ciprofloxacin Type: Drug Reaction: Unknown Allergen: levofloxacin Type: Drug Reaction: Unknown Allergen: duloxetine Type: Drug Reaction: Unknown Allergen: losartan Type: Drug Reaction: Unknown Intolerance Allergen: clarithromycin Type: Drug Reaction: Confusion Mood Alteration Allergen: doxycycline Type: Drug Reaction: Nausea/Vomiting Allergen: predniSONE Type: Drug Reaction: Unknown Allergen: guaifenesin Type: Drug Reaction: Unknown Allergen: [place] Type: Drug Reaction: Unknown Allergen: lovastatin Type: Drug Reaction: Unknown Allergen: Rosuvastatin Calcium Type: Drug Reaction: Unknown Allergen: carvedilol Type: Drug Reaction: Unknown Allergen: clonidine Type: Drug Reaction: Unknown Allergen: NIFEdipine Type: Drug Reaction: Unknown Allergen: diltiazem Type: Drug Reaction: Unknown HEALTH HISTORY: No documented data. OUTPATIENT MEDICATIONS: Home Medications Review Status for Reconciliation: N/A Med Status: Patient Currently Takes Medications Drug Name: Metoprolol Tartrate 50 mg oral tablet Instructions: 1 tab(s) orally 2 times a day Drug Name: GlipiZIDE XL 5 mg oral tablet, extended release Instructions: 1 tab(s) orally once a day Drug Name: torsemide 10 mg oral tablet Instructions: 1 tab(s) orally once a day, As Needed - for swelling/edema Drug Name: potassium chloride 10 mEq oral tablet, extended release Instructions: 1 (more content not included)... Normal [facility] Provider Note - ED v3 This report has be en cancelled. Normal [facility] Risk Screen - Adult Emergenc yon 01-31-2022 Risk Screen - Adult Emergency Preferred Language: Preferred Language: Preferred Language for Discussing Health Care (patient/designee)Iranian Patient Preferred Pharmacy: Patient Preferred Pharmacy Statement: I have reviewed and updated the patient's preferred pharmacy selection for today's visit. Advanced Directives: Advance Directive/DNRyes Advance Directive typeLiving Will, Durable Power of Concrete Float Maker for Healthcare Family Violence Adult: Abuse Screen: Are you or have you been threatened or abused physically, emotionally, or sexually by anyoneno Learning Assessment (Patient): Learning Assessment (Patient): Patient is Able to be Assessed for Learningyes Factors Influencing Readiness to Learninterest in learning Factors that Impact Ability to Learnnone Devices/Methods Used to Communicatenone Learning Preferencesverbal instruction; written material Cultural Considerationsnone Developmental Considerationsnone Anabaptism Considerationsnone Learning Assessment (Other Learner): Learning Assessment (Other Learner): Other learner availableno Pressure Injury/TB/Substance: Pressure Injury: Do you have a coughyes... Has your cough lasted longer than 2 weeksyes... Do any of the following applynone of the above Does the pt. have risk factors of, or a hx of TBnone of the above Smoking Statusformer smoker Alcohol Usedenies Drug Usedenies Admission Risk Screen: Significant IndicatorsComplete CAGE: CAGE: Is this an injured patient at a Trauma Center ([facility]/[place]/ [place]): no Electronic Signatures: Natalya Dominguez (SHOLA GUTIERREZN) (Signed 31-Jan-2022 14:43) Authored: Preferred Language, Patient Preferred Pharmacy, Advanced Directives, Family Violence Adult, Learning Assessment (Patient), Learning Assessment (Other Learner), Pressure Injury/TB/Substance, Pressure Injury, CAGE Last Updated: 31-Jan-2022 14:43 by Natalya Dominguez (SHOLA PRN) [facility] TYPE + SCREENon 01-31-2022 ABO TYPE O [facility] Comment on above: Performed By: #### T +S #### [place] [address] RH TYPE Negative [facility] Comment on above: Performed By: #### T +S #### [place] [address] Triage - EDon 01-31-2022 Triage - ED Quick Triage: The patient and/or guardian verbally acknowledges placement for services into the following (when Urgent Care Service hours are operating):emergency department Chart Review: ARRIVAL INFORMATION Mode of Arrival: private vehicle CHIEF COMPLAINT WHITNEY RUIZ is a Female patient with a chief complaint of rectal bleeding (Patient to ED reference rectal bleeding. patient went to urinate last night and felt damp after, she then realized she was bleeding with a few clots. Patient also having right side pain that radiates around to her back with abdominal pain x 2 days.). Onset of the Complaint: 30-Jan-2022 23:00 Triage Date/Time: 31-Jan-2022 11:34 EMILE: 3 Pain Rating (0-10): 7 = Severe Vital Signs: Temperature: 97.0F ( 36.1C) taken temporal Blood Pressure: 163/73 Mean: Heart Rate: 60 Respiratory Rate: 18 Pulse Oximetry: 95% on room air, no respiratory support. Height: 5 feet 0.00 inches. 152.4 CM Weight: 203.4 pounds. Calculated 92.3 kg. (stated) Calculated BMI (kg/m2): 39.740 Calculated BSA (m2) 1.98 Dedrick Coma Scale: Best Eye Response: (E4) spontaneous Best Motor Response: (M6) obeys commands Best Verbal Response: (V5) oriented Dedrick Score: 15 [place] Assessment Qualifiers: patient not sedated/intubated Cough lasting greater than 3 weeks: no Allergies: yes Mask applied: yes Patient has homicidal thoughts: no Symptoms Are Negative For: anorexia, constipation, diaphoresis, diarrhea, distention, fever, nausea, rectal blood and vomiting. Risk Screens Suicide Risk Screen In the Past Month: Have you wished you were or wished you could go to sleep and not wake up no In the Past Month: Have you had any actual thoughts of killing yourself no In Your Lifetime: Have you ever done anything, started to do anything, or prepared to do anything to end your life no Jimenes Fall Scale Screening Has the patient fallen before (or is the patient in the ED as a result of a fall) has not had a fall Does the patient have an impaired gait does not have impaired gait Is the patient cognitively impaired not cognitively impaired Interventions: Jimenes Fall Interventions: LOW INTERVENTIONS: *patient oriented to surroundings and call system, * patient/family falls education completed and documented, *patients fall status communicated during bedside handoff, *whiteboard updated, *mode of toileting discussed with patient, *bed in low position with brakes locked, *call light in reach, * non-skid footwear TRAVEL HISTORY Travel History Coronavirus Screening: no exposure or symptoms Travel Exposure History: NO travel to International locations in the past 30 days PAIN Pain Scale Used: JEN Pain Rating (0-10): 7 = Severe Past Medical History: Past Medical History Reviewedyes Electronic Signatures: Love Hernandez (RN) (Signed 31-Jan-2022 12:42) Authored: Quick Triage, Chart Review, Past Medical History Eloise Fairbanks (EMT-P) (Signed 31-Jan-2022 11:39) Entered: Risk Screens, Pain, Travel History, Chart Review, Scores Authored: Quick Triage, Risk Screens, Pain, Travel History, Chart Review, Scores Last Updated: 31-Jan-2022 12:42 by Love Hernandez (RN) Normal [facility] UA MICROSCOPICon 01-31-2022 BACTERIA 1+ /HPF Abnormal [facility] Comment on above: Performed By: #### U AMIC #### [place] [address] Mucus Ql (Urine sed) 1+ /LPF Normal [facility] Comment on above: Performed By: #### U AMIC #### [place] [address] RBC 1 /HPF Normal 0-5 [facility] Comment on above: Performed By: #### U AMIC #### [place] [address] SQUAMOUS EPITH. CELLS 3 /HPF Normal [facility] Comment on above: Performed By: #### U AMIC #### [place] [address] WBC 5 /HPF Normal 0-5 [facility] Comment on above: Performed By: #### U AMIC #### [place] [id number] URINALYSISon 01-31-2022 Appearance (U) CLEAR Normal CLEAR [facility] Comment on above: Performed By: #### T RPHS #### [place] [id number] Bilirubin Ql (U) Negative Normal NEGATIVE [facility] Comment on above: Performed By: #### T RPHS #### [place] [address] Color (U) Yellow Normal STRAW,YELL OW [facility] Comment on above: Performed By: #### T RPHS #### [place] [address] Glucose Ql (U) Negative Normal NEGATIVE [facility] Comment on above: Performed By: #### T RPHS #### [address] [address] Hemoglobin Ql (U) Negative Normal NEGATIVE [facility] Comment on above: Performed By: #### T RPHS #### [place] [address] Ketones Ql (U) Negative Normal NEGATIVE [facility] Comment on above: Performed By: #### T RPHS #### [place] [address] Leukocyte esterase Test strip Ql (U) TRACE Abnormal NEGATIVE [facility] Comment on above: Performed By: #### T RPHS #### [place] [address] Nitrite Ql (U) Negative Normal NEGATIVE [facility] Comment on above: Performed By: #### T RPHS #### [place] [address] pH (U) 7.0 [pH] Normal 5.0 - 8.0 [facility] Comment on above: Performed By: #### T RP #### [place] [address] Protein Ql (U) Negative Normal NEGATIVE [facility] Comment on above: Performed By: #### T RPHS #### [place] [address] Specific gravity (U) [Rel density] 1.014 Normal 1.005 - 1.035 [facility] Comment on above: Performed By: #### T RPHS #### [place] [id number] Urobilinogen (U) [Mass/Vol] mg/dL Normal 0.0 - 1.9 [facility] Comment on above: Performed By: #### T RPHS #### [address] [address] XR Chest PA and Lateralon IMPRESSION: As above Splitting Machine Feeder: PSCB Transcribe Date/Time: Dec 31 2021 8:17A Dictated by : EVERARDO COYLE MD This examination was interpreted and the report reviewed and electronically signed by: EVERARDO COYLE MD on Dec 31 2021 8:19AM [facility] DIVISION OF RADIOLOGY * * *Final Report* * * DATE OF EXAM: Dec 30 2021 5:26PM WOX 5291 - XR CHEST 2V FRONTAL/LAT / PROCEDURE REASON: multiple diagnoses * * * * Physician Interpretation * * * * EXAMINATION: CHEST RADIOGRAPH (2 VIEW FRONTAL & LATERAL) CLINICAL HISTORY: Bronchitis ILD (interstitial lung disease) (HCC) MQ: XC2_6 EXAM DATE/TIME: 12/30/2021 5:26 PM COMPARISON: No relevant prior studies available. RESULT: Lines, tubes, and devices: None. Lungs and pleura: Mild central bronchointerstitial prominence, a viral process considered, clinical correlation needed. Patchy atelectasis/infiltrate in the retrocardiac left lower lobe. No pleural effusion or pneumothorax. No suspicious nodule. Cardiomediastinal silhouette: Normal cardiomediastinal silhouette. Bones and soft tissues: Unremarkable. DIVISION OF RADIOLOGY Provider, [facility] - 12/31/2021 * * *Final Report* * * DATE OF EXAM: Dec 30 2021 5:26PM WOX 5291 - XR CHEST 2V FRONTAL/LAT / PROCEDURE REASON: multiple diagnoses * * * * Physician Interpretation * * * * EXAMINATION: CHEST RADIOGRAPH (2 VIEW FRONTAL & LATERAL) CLINICAL HISTORY: Bronchitis ILD (interstitial lung disease) (HCC) MQ: XC2_6 EXAM DATE/TIME: 12/30/2021 5:26 PM COMPARISON: No relevant prior studies available. RESULT: Lines, tubes, and devices: None. Lungs and pleura: Mild central bronchointerstitial prominence, a viral process considered, clinical correlation needed. Patchy atelectasis/infiltrate in the retrocardiac left lower lobe. No pleural effusion or pneumothorax. No suspicious nodule. Cardiomediastinal silhouette: Normal cardiomediastinal silhouette. Bones and soft tissues: Unremarkable. IMPRESSION IMPRESSION: As above Splitting Machine Feeder: ELEANOR Transcribe Date/Time: Dec 31 2021 8:17A Dictated by : EVERARDO COYLE MD This examination was interpreted and the report reviewed and electronically signed by: EVERARDO COYLE MD on Dec 31 2021 8:19AM EST [facility] XR Chest PA and LateralOrder ed By: Ccf Provider on 12-31-2021 [facility] XR Chest PA and Lateralon Radiology Study observation (narrative) [facility] RHEUMATOID FACTOR BLon 12-13 Rheumatoid factor Qn <16 IU/mL [facility] URINE CULTUREon 12-11-2021 Bacteria identified Cx Nom (U) 50,000-<100,000 CFU/ml Mixed microbiota Abnormal [facility] Urinalysis complete panel (U )on 12-10-2021 Bacteria LM.HPF (Urine sed) [#/Area] Rare Abnormal None Seen /HPF [facility] Bilirubin Ql (U) Negative Negative [facility] Clarity (Unsp spec) Cloudy Abnormal Clear [facility] Color (U) Yellow Yellow [facility] Epithelial cells LM.HPF (Urine sed) [#/Area] Moderate [facility] Epithelial cells LM.HPF (Urine sed) [#/Area] Few Abnormal None Seen /HPF [facility] Glucose Test strip (U) [Mass/Vol] Negative Negative [facility] Hemoglobin Ql (U) Negative Negative [facility] Ketones Ql (U) Negative Negative [facility] Leukocyte esterase Test strip Ql (U) 3+ Abnormal Negative [facility] Nitrite Ql (U) Negative Negative [facility] pH (U) 6.0 [pH] 5.0 - 8.0 [facility] Protein (U) [Mass/Vol] 1+ Abnormal Negative [facility] RBC LM.HPF (Urine sed) [#/Area] 0-3 /HPF 0-3 /HPF [facility] Specific gravity (U) [Rel density] 1.021 1.005 - 1.030 [facility] Urobilinogen Ql (U) Negative Negative [facility] WBC LM.HPF (Urine sed) [#/Area] /[HPF] Abnormal 0-5 /H[facility] AP and Lat eral and Swimmerson 08-27-2021 IMPRESSION: Osteopen ia, scoliotic curvature and degenerative change, stable. Splitting Machine Feeder: ELEANOR Transcribe Date/Time: Aug 27 2021 3:23P Dictated by : CORIN SANCHEZ MD This examination was interpreted and the report reviewed and electronically signed by: CORIN SANCHEZ MD on Aug 27 2021 3:28PM EST [facility]_DO_NOT_USE _DIVISION OF RADIOLOGY * * *Final Report* * * DATE OF EXAM: Aug 27 2021 3:18PM WOX 5261 - XR THORACIC 3V AP/LAT/SWIMMERS / PROCEDURE REASON: Acute left-sided thoracic back pain * * * * Physician Interpretation * * * * EXAMINATION: XR THORACIC 3V AP/LAT/SWIMMERS HISTORY: Acute thoracic spine pain, since this past . TECHNIQUE: XR THORACIC 3V AP/LAT/SWIMMERS Laterality: NOT APPLICABLE Number of different views (projections): 3 M: XB_1 COMPARISON: Comparison is made to prior thoracic spine dated 06 June 2016 RESULT: Frontal, lateral and swimmer's views of the thoracic spine demonstrate osteopenia, scoliotic curvature mild multilevel degenerative change with vertebral body osteophytosis. Chronic mild anterior volume loss of T11 with mild accentuated thoracolumbar kyphosis is unchanged dating back to 2016. There are no acute compression deformities and alignment is well maintained. There are no paraspinal abnormalities. [facility]_DO_NOT_USE _DIVISION OF RADIOLOGY Provider, [facility] - 08/27/2021 * * *Final Report* * * DATE OF EXAM: Aug 27 2021 3:18PM WOX 5261 - XR THORACIC 3V AP/LAT/SWIMMERS / PROCEDURE REASON: Acute left-sided thoracic back pain * * * * Physician Interpretation * * * * EXAMINATION: XR THORACIC 3V AP/LAT/SWIMMERS HISTORY: Acute thoracic spine pain, since this past . TECHNIQUE: XR THORACIC 3V AP/LAT/SWIMMERS Laterality: NOT APPLICABLE Number of different views (projections): 3 M: XB_1 COMPARISON: Comparison is made to prior thoracic spine dated 06 June 2016 RESULT: Frontal, lateral and swimmer's views of the thoracic spine demonstrate osteopenia, scoliotic curvature mild multilevel degenerative change with vertebral body osteophytosis. Chronic mild anterior volume loss of T11 with mild accentuated thoracolumbar kyphosis is unchanged dating back to 2017. There are no acute compression deformities and alignment is well maintained. There are no paraspinal abnormalities. IMPRESSION IMPRESSION: Osteopenia, scoliotic curvature and degenerative change, stable. Splitting Machine Feeder: ELEANOR Transcribe Date/Time: Aug 27 2021 3:23P Dictated by : CORIN SANCHEZ MD This examination was interpreted and the report reviewed and electronically signed by: CORIN SANCHEZ MD on Aug 27 2021 3:28PM EST [facility] Radiology Study observation (narrative) [facility] XR Thoracic spine AP and Lat eral and SwimmersOrdered By: Ccf Provider on 08-27-2021 [facility] RANCHO + HOANG PANELon 08-22-2021 RANCHO WITH REFLEX TO HOANG Negative Normal NEGATIVE [facility] Comment on above: Result Comment: The Antinuclear Antibody (RANCHO) test was performed using indirect immunofluorescence assay with HEp-2 cells slide. Performed By: #### C BC #### [place] [address] ANTI-CENTROMERE <0.2 Normal [facility] Comment on above: Result Comment: REF VALUES < 1.0 = NEGATIVE >=1.0 = POSITIVE Performed By: #### C BC #### [address] [address] ANTI-CHROMATIN <0.2 Normal [facility] Comment on above: Result Comment: REF VALUES < 1.0 = NEGATIVE >=1.0 = POSITIVE Performed By: #### C BC #### [place] [address] ANTI-DNA [DS] <1.0 Normal [facility] Comment on above: Result Comment: REF VALUES NEGATIVE: <= 4 IU/ML EQUIVOCAL: 5- 9 IU/ML POSITIVE: >=10 IU/ML Performed By: #### C BC #### [place] [address] ANTI-YELITZA-[address] <[address] [facility] Comment on above: Result Comment: REF VALUES < 1.0 = NEGATIVE >=1.0 = POSITIVE Performed By: #### C BC #### [address] [address] ANTI-RIBOSOMAL P <0.2 Normal [facility] Comment on above: Result Comment: REF VALUES < 1.0 = NEGATIVE >=1.0 = POSITIVE Performed By: #### C BC #### [address] [address] ANTI-DERRICK FOLLOWER <0.[address] [facility] Comment on above: Result Comment: REF VALUES < 1.0 = NEGATIVE >=1.0 = POSITIVE Performed By: #### C BC #### [place] [address] ANTI-SCL-70 <0.2 Normal [facility] Comment on above: Result Comment: REF VALUES < 1.0 = NEGATIVE >=1.0 = POSITIVE Performed By: #### C BC #### [place] [address] ANTI-SM <0.[address] [facility] Comment on above: Result Comment: REF VALUES < 1.0 = NEGATIVE >=1.0 = POSITIVE Performed By: #### C BC #### [place] [address] ANTI-SM/DERRICK FOLLOWER <0.2 Normal [facility] Comment on above: Result Comment: REF VALUES < 1.0 = NEGATIVE >=1.0 = POSITIVE Performed By: #### C BC #### [address] [address] ANTI-SSA <0.[address] [facility] Comment on above: Result Comment: REF VALUES < 1.0 = NEGATIVE >=1.0 = POSITIVE Performed By: #### C BC #### [place] [id number] ANTI-SSB <0.[address] [facility] Comment on above: Result Comment: REF VALUES < 1.0 = NEGATIVE >=1.0 = POSITIVE Performed By: #### C BC #### [address] [address] BASIC METABOLIC PANELon 07-29 Anion gap [Moles/Vol] 15 mmol/L Normal 10 - 20 [facility] Comment on above: Performed By: #### B MP ####[address] [address] Calcium [Mass/Vol] 9.3 mg/dL Normal 8.6 - 10.3 [place] [facility] Comment on above: Performed By: #### B MP ####[address] [address] Chloride [Moles/Vol] 103 mmol/L Normal 98 - 107 [facility] Comment on above: Performed By: #### B MP ####[address] [address] Creatinine [Mass/Vol] 0.78 mg/dL Normal 0.50 - 1.05 [facility] Comment on above: Performed By: #### B MP ####[address] [address] GFR/1.73 sq M.predicted among non-blacks MDRD (S/P/Bld) [Vol rate/Area] 78 mL/min/{1.73_m2} Normal >90 [facility] Comment on above: Result Comment: CALC ULATIONS OF ESTIMATED GFR ARE PERFORMED USING THE 2020 CKD-EPI STUDY REFIT EQUATION WITHOUT THE RACE VARIABLE FOR THE IDMS-TRACEABLE CREATININE METHODS. https://jasn.asnjournals.org/content/early//ASN.168884 4481 Performed By: #### B MP ####[address] [address] Glucose [Mass/Vol] 141 mg/dL High 74 - 99 [place] [facility] Comment on above: Performed By: #### B MP ####[address] [address] HCO3 (Bld) [Moles/Vol] 25 mmol/L Normal 21 - 32 [facility] Comment on above: Performed By: #### B MP ####[facility] [place] [address] Potassium [Moles/Vol] 3.6 mmol/L Normal 3.5 - 5.3 [facility] Comment on above: Performed By: #### B MP ####[address] [address] Sodium [Moles/Vol] 139 mmol/L Normal 136 - 145 [place] [facility] Comment on above: Performed By: #### B MP ####[address] [address] Urea nitrogen [Mass/Vol] 21 mg/dL Normal 6 - 23 [facility] Comment on above: Performed By: #### B MP ####[address] [address] Clinical Event Note-Idiopath ic pulmonary fibrosison 08-22-2021 Clinical Event Note-Idiopathic pulmonary fibrosis Clinical Event: Clinical Event Note: TopicIdiopathic pulmonary fibrosis Details A 76-year-old female with a history of obstructive sleep apnea on home CPAP and pulmonary fibrosis was admitted for concern of new onset heart failure. CT chest showed a signs of idiopathic pulmonary fibrosis (IPF). Currently patient is on room air, no respiratory distress. Stable IPF predominantly outpatient management with supportive treatment with the oxygen, pulmonary rehabilitation and vaccinations provided card for outpatient pulmonary follow-up for further evaluation and evaluation for antifibrotic therapy. Continue home CPAP which was auto titratable from 0-15. Electronic Signatures: Phillip Iglesias) (Signed 22-Aug-2021 15:50) Authored: Clinical Event Note Last Updated: 22-Aug-2021 15:50 by Phillip Iglesias) Normal [facility] Discharge [id number] Discharge Profile2 Discharge Orders: Anticipated Discharge Date: Anticipated Discharge [id number] DNAR: Code Status at Discharge: Full Code Diet: Dietlow fat, low sodium Pulp Screen Operator Interventional: Wound Care: If slight bleeding should occur at site, lie down and have someone apply firm pressure just above the puncture site for 5 minutes. If it continues or is profuse, call 911. Always notify your doctor if bleeding occurs. Keep site clean and dry. Let air dry or you may use a simple bandaid. Gently cleanse the puncture site in your groin with soap and water only. You may experience some tenderness, bruising or minimal inflammation. If you have any concerns, you may contact the Pulp Screen Operator or if any of these symptoms become excessive, contact your court bailiff or go to the emergency room. No tub baths, soaking, or swimming for one week. May shower the next day after your procedure. Radial Site Care: DO NOT lift anything with your affected arm for the next 24 hours, then no lifting greater than 5 pounds with your affected arm for 5 more days. No bending or flexing the affected wrist. Avoid immersion in water of the affected site for the next 3 days. Apply manual pressure and call physician immediately if bleeding or hematoma occurs at the site. Remove dressing the next day and keep site clean, dry, and covered with a new band aid daily until healed. Report any symptoms other than slight tenderness at the site or tingling of the fingers and hand for up to 3 days. Follow Up Appointment 1: Physician/ Dept/ ServiceYour usual court bailiff - Dr. Gibbs Instructions/CommentsCall to make an appointment in 1-2 weeks Provider FINAL REVIEW of Orders: Final Review: Final Review of Medication Reconciliation and Orders Completedby EDEN Treviño at 22-Aug-2021 09:59:26 Electronic Signatures: Marisa Vee (DIRECTOR GLOBAL SALES-CIRCUIT TESTER) (Signed 22-Aug-2021 09:59) Authored: Discharge Orders, Pulp Screen Operator Interventional, Provider FINAL REVIEW of Orders, Gold Form - Toe Closing Machine Tender Summary Last Updated: 22-Aug-2021 09:59 by Marisa Vee (DIRECTOR GLOBAL SALES-CIRCUIT TESTER) Normal [facility] GLUCOSE-POCTon 08-22-2021 Glucose [Mass/Vol] 205 mg/dL High 74 - 99 [place] [facility] Comment on above: Performed By: #### G CAROLYN #### [facility] [address] [place] [address] Glucose [Mass/Vol] 162 mg/dL High 74 - 99 [place] [facility] Comment on above: Performed By: #### C BC #### [facility] [address] [place] [address] Order Reconciliationon 08-22 Order Reconciliation Page 1 Discharge Reconciliation Document Reconciliation Type: Discharge requested on behalf of Marisa Vee (Advanced Practice Nurse) done by Marisa Vee (DIRECTOR GLOBAL SALES-[facility]) Discharge - Reconciliation: 22-Aug-2021 09:50 by: Marisa Vee (DIRECTOR GLOBAL SALES-[facility]) Home Medications EnteredHOME MEDICATIONS AT DISCHARGE DateReconciliation Comment/ Additional Information acetaminophen 500 mg oral tablet 2 tab(s) orally once a day, As Needed 11-Aug-2021 12:46 acetaminophen 500 mg oral tablet 2 tab(s) orally once a day, As Needed 11-Aug-2021 12:46 acetaminophen 500 mg oral tablet is continued as acetaminophen 500 mg oral tablet albuterol 90 mcg/inh inhalation aerosol 1 puff(s) inhaled every 6 hours, As Needed - for shortness of breath 29-Dec-2020 14:56 albuterol 90 mcg/inh inhalation aerosol 1 puff(s) inhaled every 6 hours, As Needed - for shortness of breath 29-Dec-2020 14:56 albuterol 90 mcg/inh inhalation aerosol is continued as albuterol 90 mcg/inh inhalation aerosol Aspercreme 10% topical cream Apply topically to affected area prn 11-Aug-2021 12:49 Aspercreme 10% topical cream Apply topically to affected area prn 11-Aug-2021 12:49 Aspercreme 10% topical cream is continued as Aspercreme 10% topical cream aspirin 81 mg oral delayed release tablet 1 tab(s) orally once a day 20-Aug-2021 15:22 aspirin 81 mg oral delayed release tablet 1 tab(s) orally once a day 20-Aug-2021 15:22 aspirin 81 mg oral delayed release tablet is continued as aspirin 81 mg oral delayed release tablet Clear Eyes 0.012% ophthalmic solution 1 application to each affected eye prn 11-Aug-2021 12:45 Clear Eyes 0.012% ophthalmic solution 1 application to each affected eye prn 11-Aug-2021 12:45 Clear Eyes 0.012% ophthalmic solution is continued as Clear Eyes 0.012% ophthalmic solution Entresto 24 mg-26 mg oral tablet 1 tab(s) orally 2 times a day pt says prescribed twice daily but due to allergy pt has been taking once daily 20-Aug-2021 15:24 Entresto 24 mg-26 mg oral tablet 1 tab(s) orally 2 times a day Discontinued; Copy/Discontinue Entresto 24 mg-26 mg oral tablet is continued and modified fluticasone 50 mcg/inh nasal spray 1 spray(s) nasal once a day, As Needed 29-Dec-2020 14:55 fluticasone 50 mcg/inh nasal spray 1 spray(s) nasal once a day, As Needed 29-Dec-2020 14:55 fluticasone 50 mcg/inh nasal spray is continued as fluticasone 50 mcg/inh nasal spray GlipiZIDE XL 5 mg oral tablet, extended release 1 tab(s) orally once a day 29-Dec-2020 14:50 GlipiZIDE XL 5 mg oral tablet, extended release 1 tab(s) orally once a day 29-Dec-2020 14:50 GlipiZIDE XL 5 mg oral tablet, extended release is continued as GlipiZIDE XL 5 mg oral tablet, extended release Metoprolol Tartrate 50 mg oral tablet 1 tab(s) orally 2 times a day 06-Jul-2020 10:09 Metoprolol Tartrate 50 mg oral tablet 1 tab(s) orally 2 times a day 06-Jul-2020 10:09 Metoprolol Tartrate 50 mg oral tablet is continued as Metoprolol Tartrate 50 mg oral tablet omeprazole 20 mg oral delayed release capsule 1 cap(s) orally once a day, As Needed 29-Dec-2020 14:57 omeprazole 20 mg oral delayed release capsule 1 cap(s) orally once a day, As Needed 29-Dec-2020 14:57 omeprazole 20 mg oral delayed release capsule is continued as omeprazole 20 mg oral delayed release capsule potassium chloride 10 mEq oral tablet, extended release 1 tab(s) orally once a day, As Needed - take along with torsemide 29-Dec-2020 14:55 potassium chloride 10 mEq oral tablet, extended release 1 tab(s) orally once a day, As Needed - take along with torsemide 29-Dec-2020 14:55 potassium chloride 10 mEq oral tablet, extended release is continued as potassium chloride 10 mEq oral tablet, extended release torsemide 10 mg oral tablet 1 tab(s) orally once a day, As Needed - for swelling/edema 29-Dec-2020 14:52 torsemide 10 mg oral tablet 1 tab(s) orally once a day, As Needed - for swelling/edema 29-Dec-2020 14:52 torsemide 10 mg oral tablet is continued as torsemide 10 mg oral tablet Vitamin D2 1.25 mg (50,000 intl units) oral capsule 1 cap(s) orally once a week on tuesdays 15:22 Vitamin D2 1.25 mg (50,000 intl units) oral capsule 1 cap(s) orally once a week on tuesdays 15:22 Vitamin D2 1.25 mg (50,000 intl units) oral capsule is continued as Vitamin D2 1.25 mg (50,000 intl units) oral capsule Current OrdersDateHOME MEDICATIONS AT DISCHARGE DateReconciliation Comment/ Additional Information Acetaminophen Tablet (TYLENOL)DOSE = 650 mg Oral Every 4 Hours, PRN Temp Greater Than or Equal to 38.0 C 20-Aug-2021 13:35 Acetaminophen is not required Albuterol 90 micrograms/ Inhalation MDI (PROVENTIL, VENTOLIN)DOSE = 1 inhalation Every 6 Hours via MDINotes from Pharmacy: [facility] 20-Aug-2021 12:53 Albuterol 90 micrograms/ Inhalation MDI is not required Dextrose 50% in Water Injectable DOSE = 25 gram(s) IntraVenous Push Every 15 Minutes, PRN Blood Glucose 70 mg/dL or LESS & (more content not included)... Normal [facility] RHEUMATOID FACTORon 08-23-19 22 RHEUMATOID FACTOR <10 Normal 0 - 15 [facility] Comment on above: Performed By: #### R F ####[id number] [place] [address] SEDIMENTATION RATE, ERYTHROC YTEon 08-22-2021 SEDIMENTATION RATE, ERYTHROCYTE 26 mm/h Normal 0 - 30 [facility] Comment on above: Performed By: #### E SRWS ####[facility] [place] [address] ARTERIAL BLOOD GASon 022 BASE EXCESS-BLOOD 1.2 mmol/L Normal -2.0 - 3.0 [facility] Comment on above: Performed By: #### B LGA2 #### [address] [address] BICARB, CALCULATED 26.0 mmol/L Normal 22.0 - 26.0 [facility] Comment on above: Performed By: #### B LGA2 #### [address] [address] OXY HGB 94.5 % Normal 94.0 - 98.0 [facility] Comment on above: Performed By: #### B LGA2 #### [place] [address] Oxygen (Bld) [Partial pressure] 80 mm[Hg] Low 85 - 95 [facility] Comment on above: Performed By: #### B LGA2 #### [place] [address] PATIENT TEMPERATURE 37.0 degrees C Normal [facility] Comment on above: Result Comment: NOTE : PATIENT RESULTS ARE NOT CORRECTED FOR TEMPERATURE. Performed By: #### B LGA2 #### [place] [address] PCO2 41 mmHg Normal 38 - 42 [facility] Comment on above: Performed By: #### B LGA2 #### [address] [address] pH (Bld) 7.41 [pH] Normal 7.38 - 7.42 [facility] Comment on above: Performed By: #### B LGA2 #### [place] [address] SO2 96 % Normal 94 - 100 [facility] Comment on above: Performed By: #### B LGA2 #### [place] [address] C-REACTIVE PROTEINon 05-25-2 022 C-REACTIVE PROTEIN 0.24 mg/dL Normal [facility] Comment on above: Result Comment: REF VALUE < 1.00 Performed By: #### C BC #### [address] [address] CBCon 08-21-2021 Erythrocyte distribution width (RBC) [Ratio] 13.4 % Normal 11.5 - 14.5 [facility] Comment on above: Performed By: #### C BC #### [address] [address] Hematocrit (Bld) [Volume fraction] 44.4 % Normal 36.0 - 46.0 [facility] Comment on above: Performed By: #### C BC #### [address] [address] Hemoglobin (Bld) [Mass/Vol] 15.2 g/dL Normal 12.0 - 16.0 [facility] Comment on above: Performed By: #### C BC #### [address] [address] MCHC (RBC) [Mass/Vol] 34.2 g/dL Normal 32.0 - 36.0 [facility] Comment on above: Performed By: #### C BC #### [address] [address] MCV (RBC) [Entitic vol] 86 fL Normal 80 - 100 [facility] Comment on above: Performed By: #### C BC #### [address] [address] Platelets (Bld) [#/Vol] 330 10*3/uL Normal 150 - 450 [facility] Comment on above: Performed By: #### C BC #### [address] [address] RBC 5.17 x10E12/L Normal 4.00 - 5.20 [facility] Comment on above: Performed By: #### C BC #### [address] [address] WBC (Bld) [#/Vol] 6.5 10*3/uL Normal 4.4 - [address] [facility] Comment on above: Performed By: #### C #### [facility] [address] [place] [address] Consult-Medicineon Consult-Medicine Service: Service: Medicine Consult: Consult requested by (Attending Name): Franck Lambert Reason: Medical management, diabetic patient History of Present Illness: HPI: WHITNEY RUIZ is a 76 year old Female with past medical history for CAD, status post PCI of LAD, type 2 diabetes, hypertension, hyperlipidemia who presents today as a direct admit with concern for new onset heart failure and left and right heart catheterization on 08/21/2021. Patient states that over the last several weeks she has noted bilateral lower extremity edema, worsening shortness of breath. She notes that she was recently seen in ED and was told she may have heart failure, she visited her court bailiff (Alex Lambert) who placed her on Entresto 24/26 mg 1 tablet twice daily and torsemide 10 mg daily. Patient notes that she has been urinating more frequently and can finally feel and see my ankles. Ms. Ruiz was instructed by her court bailiff to go to the hospital for further testing. Patient currently sitting in bed, son and daughter at bedside. Trace bilateral lower extremity edema noted, bibasilar rales. Echocardiogram and chest x-ray ordered, patient will go for left and right heart catheterization tomorrow. Of note, patient was recently evaluated in the ED on 08/11/21 for feeling out of it and concerned she may have sinus infection with associated palpitations. HR noted in ED to be 62, EKG reported to be SR, BP 192/79, chest x-ray with mild pulmonary congestion. BNP 347, high-sensitivity troponin level 10 x2. Influenza and Covid swabs were normal. Patient was discharged from ED without intervention. 08/21: She continues to complain of ESPINOSA Review Family/Social History and ROS: Family History: Family History: reviewed and not pertinent to presenting problem Social History: Smoking Status: former smoker (1) Drug Use: denies Constitutional: NEGATIVE: Fever, Chills, Anorexia, Weight Loss, Malaise Eyes: NEGATIVE: Blurry Vision, Drainage, Diploplia, Redness, Vision Loss/ Change ENMT: NEGATIVE: Nasal Discharge, Nasal Congestion, Ear Pain, Mouth Pain, Throat Pain Respiratory: POSITIVE: Shortness of Breath; NEGATIVE: Dry Cough, Productive Cough, Hemoptysis, Wheezing Cardiac: POSITIVE: Dyspnea on Exertion; NEGATIVE: Chest Pain, Orthopnea, Palpitations, Syncope Gastrointestinal: NEGATIVE: Nausea, Vomiting, Diarrhea, Constipation, Abdominal Pain Genitourinary: NEGATIVE: Discharge, Dysuria, Flank Pain, Frequency, Hematuria Musculoskeletal: NEGATIVE: Decreased ROM, Pain, Swelling, Stiffness, Weakness Neurological: NEGATIVE: Dizziness, Confusion, Headache, Seizures, Syncope Psychiatric: NEGATIVE: Mood Changes, Anxiety, Hallucinations, Sleep Changes, Suicidal Ideas Skin: NEGATIVE: Mass, Pain, Pruritus, Rash, Ulcer Allergies: chest tightness: Other Amlodipine Besylate: Swelling/Edema valsartan: Swelling/Edema dicyclomine: Other meloxicam: Facial Swelling codeine: Other iopromide: Unknown morphine: Itching amoxicillin: Other metronidazole: Itching sulfa drugs: Rash Tape - Adhesive, Bandaids, Paper: Rash ciprofloxacin: Unknown levofloxacin: Unknown duloxetine: Unknown losartan: Unknown Intolerances: clarithromycin: Confusion, Mood Alteration doxycycline: Nausea/Vomiting predniSONE: Unknown guaifenesin: Unknown [place]: Unknown lovastatin: Unknown Rosuvastatin Calcium: Unknown carvedilol: Unknown clonidine: Unknown NIFEdipine: Unknown diltiazem: Unknown Objective: Physical Exam by System: Constitutional: Well developed, awake/alert/oriented x3, no distress, alert and cooperative Eyes: PERRL, EOMI, clear sclera ENMT: mucous membranes moist, no apparent injury, no lesions seen Head/Neck: Neck supple, no apparent injury Respiratory/Thorax: Patent airways, CTAB, normal breath sounds with good chest expansion, thorax symmetric Cardiovascular: Regular, rate and rhythm, no murmurs, 2+ equal pulses of the extremities, normal S 1and S 2 Gastrointestinal: Nondistended, soft, non-tender, no rebound tenderness or guarding, no masses palpable, no organomegaly, +BS, no bruits Musculoskeletal: no joint swelling Neurological: alert and oriented x3, intact senses, motor Lymphatic: No significant lymphadenopathy Psychological: Appropriate mood and behavior Skin: Warm and dry, no lesions, no rashes Consult Status: Consult Order ID: [id number] Problem/Assessment/Plan: Impression 1: Concern for new onset heart failure Plan for Impression 1: -Echo and LHC with coronary angiogram pending -primary service managing Impression 2: HTN Plan for Impression 2: -primary service managing Impression 3: DM2 Plan for Impression 3: -holding home orals -SSI IP Electronic Signatures: Eloise Rubin) (Signed 21-Aug-2021 13:45) Authored: Service, History of Present Illness, Review Family/Social History and Jesus SANTORO (more content not included)... Normal [facility] Discharge Planning [id number] 08-21-2021 Discharge Planning Note2 Discharge Planning: Discharge Barriersnone Planned Dispositionhome Anticipated Discharge [id number] Discharge Planning 08/21/21 0916 Pt is direct admit from Dr. Ignacio office for new onset HF. I spoke with patient to discuss discharge planning and prior level of function after introducing myself and explaining the role of TCC. TCC assessment completed. Pt fairly independent at home; primarily uses cane but has walker if needs; children present in the home to assist with any needs. Pt to have HC today. I do not anticipate any DC needs but will keep eye out post cath for any. Saundra Coughlin RN, BSN, Transitional 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, ([id number]), , DOC HALO Assessment: Discharge Planning Assessment [id number] Discharge Planning Assessment Completed bySaundra Coughlin RN, BSN, Transitional 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, [id number]), , DOC HALO Primary Contact Name and NumberDavid, son Prior Level of FunctioningIndependent ADL except daughter helps dry off after shower; Son assists with IADLs except pt manages own meds Lives Withadult child(julissa)(1) Living Arrangementshouse; 2 story home (pt/son live upstairs; daughters live downstairs) Stated Reason for Admissionbecause dr sent me for congestive heart failure(1) [place] Karla Brower MD ([facility]) Preferred Pharmacy Name/LocationDrug [facility] Recent Falls/ Injury/ Need Assist with Ambulationdenies Equipment Currently Used at [facility]; cane, quad/straight; grab bar; commode; walker; life alert; walk-in shower with built in seat Home Care Agency/Support Servicesn/a Resource/Environmental Concernsnone(1) Anticipated [place](1) Services Anticipated at [place](1) PCP Last Date [id number] Anticipated Changes Related to Illnessnone Anticipated Discharge Facility/Level of Care NeedsHome Social Determinants of Health Identifiednone Nursing Checklist: Lines/Cathetersremoved/ap propriate for next level of care Discharge Med Rec Reconciled with Nadiya Patient has Prescriptionsno prescriptions needed Discharge Instructions Reviewed WithPatient Discharge Instructions Outcomeverbalize recall/understanding Discharge Instructions Review Completed with Patient/Family (diet, activity, pt instructions)yes Discharge Documentation: Discharge/Transfer Date/[id number] Discharged Accompanied Byfamily member Discharge Modewheelchair Transportation Methodprivate car Code StatusCode Status order at time of discharge: Full Code [place] DNR Form Sent with Patient and/or Familyn/a Valuables/Medications/Bel ongings Returnedyes Final DispositionHome Electronic Signatures: Saunrda Coughlin (RN) (Signed 21-Aug-2021 09:21) Authored: Discharge Planning, Assessment Jory De Dios (RN) (Signed 22-Aug-2021 15:41) Authored: Discharge Planning, Nursing Checklist, Discharge Documentation Last Updated: 22-Aug-2021 15:41 by Jory De Dios (RN) References: 1. Data Referenced From Patient Profile - Adult v2 20-Aug-2021 16:05 Normal [facility] EMR ADDONon 08-21-2021 ADDON CONFIRMATION REQUEST REC'D Normal [facility] Comment on above: Performed By: #### E MRAD #### [address] [address] GLUCOSE-POCTon 08-21-2021 Glucose [Mass/Vol] 255 mg/dL High 74 - 99 [place] [facility] Comment on above: Performed By: #### C BC #### [address] [address] Glucose [Mass/Vol] 217 mg/dL High 74 - 99 [place] [facility] Comment on above: Performed By: #### G CAROLYN #### [address] [address] Glucose [Mass/Vol] 186 mg/dL High 74 - 99 [place] [facility] Comment on above: Performed By: #### G CAROLYN ####[facility] [place] [address] Glucose [Mass/Vol] 232 mg/dL High 74 - 99 [place] [facility] Comment on above: Performed By: #### G CAROLYN #### [facility] [address] [place] [address] LIPID PANEL (CORONARY RISK 2 )on 08-21-2021 Cholesterol [Mass/Vol] 217 mg/dL High 0 - 199 [facility] Comment on above: Result Comment: . AGE DESIRABLE BORDERLINE HIGH HIGH 0-19 Y 0 - 169 170 - 199 >/= 200 20-24 Y 0 - 189 190 - 224 >/= 225 >24 Y 0 - 199 200 - 239 >/= 240 All ranges are based on fasting samples. Specific therapeutic targets will vary based on patient-specific cardiac risk. . Pediatric guidelines reference:Pediatrics 2011, 128(S5). Adult guidelines reference: NCEP ATPIII Guidelines, MIGUEL 2001, 258:2486-97 . Venipuncture immediately after or during the administration of Metamizole may lead to falsely low results. Testing should be performed immediately prior to Metamizole dosing. Performed By: #### L IPID ####[facility] [place] [address] Cholesterol in HDL [Mass/Vol] 41.5 mg/dL Normal [facility] Comment on above: Result Comment: . AGE VERY LOW LOW NORMAL HIGH 0-19 Y < 35 < 40 40-45 ---- 20-24 Y ---- < 40 >45 ---- >24 Y ---- < 40 40-60 >60 . Performed By: #### L IPID ####[facility] [place] [address] Cholesterol in LDL [Mass/Vol] 155 mg/dL High 0 - 99 [facility] Comment on above: Result Comment: . NEAR BORD AGE DESIRABLE OPTIMAL HIGH HIGH VERY HIGH 0-19 Y 0 - 109 --- 110-129 >/= 130 ---- 20-24 Y 0 - 119 --- 120-159 >/= 160 ---- >24 Y 0 - 99 100-129 130-159 160-189 >/=190 . Performed By: #### L IPID ####[address] [address] Cholesterol in VLDL [Mass/Vol] 20 mg/dL Normal 0 - 40 [facility] Comment on above: Performed By: #### L IPID ####[address] [address] Cholesterol.total/Cho lesterol in HDL [Mass ratio] 5.2 {ratio} Abnormal [facility] Comment on above: Result Comment: REF VALUES DESIRABLE < 3.4 HIGH RISK > 5.0 Performed By: #### L IPID ####[address] [address] Triglyceride [Mass/Vol] 102 mg/dL Normal 0 - 149 [facility] Comment on above: Result Comment: . AGE DESIRABLE BORDERLINE HIGH HIGH VERY HIGH 0 D-90 D 19 - 174 ---- ---- ---- 91 D- 9 Y 0 - 74 75 - 99 >/= 100 ---- 10-19 Y 0 - 89 90 - 129 >/= 130 ---- 20-24 Y 0 - 114 115 - 149 >/= 150 ---- >24 Y 0 - 149 150 - 199 200- 499 >/= 500 . Venipuncture immediately after or during the administration of Metamizole may lead to falsely low results. Testing should be performed immediately prior to Metamizole dosing. Performed By: #### L IPID ####[address] [address] Left and Right Heart Cathete rizationon 08-21-2021 Left and Right Heart Catheterization [facility], Pulp Screen Operator [address] [place] [id number] Cardiovascular Catheterization Report Patient Name: WHITNEY RUIZ Performing Physician: [id number] Lambert MD Study Date: 08/21/2021 Verifying Physician: [id number] Lambert MD MRN/PID: [id number] Conductor Orchestra: Accession/Order#: [id number] Referring Physician: Lien Gibbs MD Date of : 1945 Referring Physician: Gender: F Referring Physician: Admit Date: Fellow: Arsalan Witt MD Study: Left and Right Heart Catheterization Additional Study: Coronary Arteriogram Indications: WHITNEY RUIZ is a 76 year old female who presents with dyslipidemia, diabetes, hypertension, obesity, prior myocardial infarction and prior percutaneous coronary intervention. Worsening angina, with a chest pain assessment of atypical angina. Study performed as an urgent cath procedure. Medical History: Stress test performed: No. CTA performed: No. Agatston accessed: No. LVEF Assessed: Yes. LVEF = 65%. Procedure Description: After infiltration with 2% Lidocaine, the right radial artery was cannulated with a modified Seldinger technique. Subsequently a 5 Syrian sheath was placed in the right radial artery. Additional catheter(s) used to visualize the coronary arteries were: 5F Armand diagnostic catheter. Multiple injections of contrast were made into the left and right coronary arteries with angiograms recorded in multiple projections. After completion of the procedure, the arterial sheath was pulled and a TR Band Radial Compression Device was utilized to obtain patent hemostasis. Post-procedure, the venous sheath was left intact and sutured in place. Coronary Angiography: The coronary circulation is right dominant. Left Main Coronary Artery: The left main coronary artery is a normal and a short caliber vessel. The left main arises normally from the left coronary sinus of Valsalva and bifurcates into the LAD and circumflex coronary arteries. The left main coronary artery showed no significant disease or stenosis greater than 30%. Left Anterior Descending Coronary Artery Distribution: The left anterior descending coronary artery is a medium-sized caliber vessel. The LAD arises normally from the left main coronary artery, reaches the apex of the LV and gives rise to the 1st diagonal branch. The LAD demonstrated no significant disease or stenosis greater than 30%. The 1st diagonal branch is a medium-sized caliber vessel. The 1st diagonal branch showed no significant disease or stenosis greater than 30%. Circumflex Coronary Artery Distribution: The circumflex coronary artery is a medium-sized caliber vessel. The circumflex arises normally from the left main coronary artery, terminates in the AV groove and giving rise to the first obtuse marginal. The circumflex revealed no significant disease or stenosis greater than 30%. The 1st obtuse marginal branch is a small caliber vessel. The 1st obtuse marginal branch showed no significant disease or stenosis greater than 30%. Right Heart Catheterization: Mean RA 10 RVEDP 9 Mean PAOP 11 Mean PA 21 CO 4.7 CI 2.5 PVR 2.3. Right Coronary Artery Distribution: The right coronary artery is a normal caliber vessel. The RCA arises normally from the right sinus of Valsalva, supplies the right posterolateral descending artery and supplies the posterolateral system. The RCA showed no significant disease or stenosis greater than 30%. The right posterolateral branch is a normal caliber vessel. The right posterolateral branch showed no significant disease or stenosis greater than 30%. The right posterior descending artery is a normal caliber vessel. The right posterior descending artery showed no significant disease or stenosis greater than 30%. Left Ventriculography: Left ventricular angiography was not performed. LVEDP 12 mmHg end-expiration. Valve Findings: No aortic valve stenosis is visualized. Hemo Personnel: + +-- + Name Duty + +-- + Franck Lambert MD PROC 1 + +-- + Chelsea Hope RTR PROC SCRUB 1 + +-- + Magdalena Frye RN PROC CIRC 1 + +-- + Juvencio Posey RN PROC RECORD 1 + +-- + Abimbola Sheikh RN PROC RECORD 2 + +-- + Cortney Deras RN PROC NURSE 1 + +-- + Arsalan Witt MD FELLOW PHYS 1 + +-- + Sedation Time: + + + Sedation Start/End Times Time + + + Start 08/21/2021 13:39:45 + + + Drugs Fentanyl 25 mcg IV per physician for sed + + (more content not included)... Normal [facility] MAGNESIUMon 08-21-2021 Magnesium [Mass/Vol] 2.12 mg/dL Normal 1.60 - 2.40 [facility] Comment on above: Performed By: #### M G ####[facility] [place] [address] MV BLOOD GASon 08-21-2021 BASE EXCESS-BLOOD 5.8 mmol/L Normal [facility] Comment on above: Performed By: #### B LMV2 ####[address] [address] BICARB, CALCULATED 30.6 mmol/L Normal [facility] Comment on above: Performed By: #### B LMV2 ####[address] [address] OXY HGB 66.7 % Normal 45.0 - 75.0 [facility] Comment on above: Performed By: #### B LMV2 ####[address] [address] Oxygen (Bld) [Partial pressure] 41 mm[Hg] Normal [facility] Comment on above: Performed By: #### B LMV2 ####[address] [address] PATIENT TEMPERATURE 37.0 degrees Normal [facility] Comment on above: Result Comment: NOTE : PATIENT RESULTS ARE NOT CORRECTED FOR TEMPERATURE. Performed By: #### B LMV2 ####[address] [address] PCO[address] [facility] Comment on above: Performed By: #### B LMV2 ####[address] [address] pH (Bld) 7.45 [pH] Normal [facility] Comment on above: Performed By: #### B LMV2 ####[address] [address] SO2 68 % Normal [facility] Comment on above: Performed By: #### B LMV2 ####[address] [address] PROCALCITONINon 08-21-2021 PROCALCITONIN <=0.07 Normal <=0.07 [facility] Comment on above: Result Comment: Proc alcitonin (PCT) results measured serially can aid in decision-making for antibiotic discontinuation in patients with suspected or confirmed sepsis in conjunction with additional clinical information. Antibiotic discontinuation may be considered with a change in PCT of >80% from the peak result or when PCT falls below 0.50 ng/mL. . Procalcitonin results should not be used in isolation but should be interpreted in conjunction with additional clinical and laboratory findings. Procalcitonin results should not be used to guide the initiation of antibiotic therapy. . Falsely low PCT values in the presence of bacterial infection may occur in early infection, with atypical pathogens, localized infections, and subacute infectious endocarditis. . Falsely elevated results outside of severe bacterial infection/sepsis may be seen in patients with renal failure or insufficiency, severe trauma or jeter, recent major abdominal/cardiac surgery, acute multi-organ failure, rarely in patients with medullary thyroid carcinoma and rare neuroendocrine tumors, and non-specific interfering antibodies (heterophile antibodies, rheumatoid factor, human anti-mouse antibodies (HAMA), etc). . Performance of the PCT test in pediatric patients (<18yo), women, immunocompromised patients, and patients on immunomodulatory medications has not been evaluated. . Note: Procalcitonin testing at [facility] is performed on the [employer]; results should not be correlated with testing performed at other sites. Direct result comparisons should only be made within the same method. Performed By: #### P CALC #### [address] [address] RENAL FUNCTION PANELon 08-21 Albumin [Mass/Vol] 4.3 g/dL Normal 3.4 - 5.0 [place] [facility] Comment on above: Performed By: #### C BC #### [address] [address] Anion gap [Moles/Vol] 15 mmol/L Normal 10 - 20 [place] [facility] Comment on above: Performed By: #### C BC #### [address] [address] Calcium [Mass/Vol] 9.6 mg/dL Normal 8.6 - 10.3 [place] [facility] Comment on above: Performed By: #### C BC #### [address] [address] Chloride [Moles/Vol] 103 mmol/L Normal 98 - 107 [facility] Comment on above: Performed By: #### C BC #### [address] [address] Creatinine [Mass/Vol] 0.77 mg/dL Normal 0.50 - 1.05 [facility] Comment on above: Performed By: #### C BC #### [address] [address] GFR/1.73 sq M.predicted among non-blacks MDRD (S/P/Bld) [Vol rate/Area] 79 mL/min/{1.73_m2} Normal >90 [facility] Comment on above: Result Comment: CALC ULATIONS OF ESTIMATED GFR ARE PERFORMED USING THE 2020 CKD-EPI STUDY REFIT EQUATION WITHOUT THE RACE VARIABLE FOR THE IDMS-TRACEABLE CREATININE METHODS. https://jasn.asnjournals.org/content/early//ASN.153054 2377 Performed By: #### C BC #### [address] [address] Glucose [Mass/Vol] 213 mg/dL High 74 - 99 [facility] Comment on above: Performed By: #### C BC #### [address] [address] HCO3 (Bld) [Moles/Vol] 25 mmol/L Normal 21 - 32 [facility] Comment on above: Performed By: #### C BC #### [address] [address] Phosphate [Mass/Vol] 3.4 mg/dL Normal 2.5 - 4.9 [facility] Comment on above: Result Comment: The performance characteristics of phosphorus testing in heparinized plasma have been validated by the individual laboratory site where testing is performed. Testing on heparinized plasma is not approved by the FDA; however, such approval is not necessary. Performed By: #### C BC #### [address] [address] Potassium [Moles/Vol] 4.0 mmol/L Normal 3.5 - 5.3 [facility] Comment on above: Performed By: #### C BC #### [address] [address] Sodium [Moles/Vol] 139 mmol/L Normal 136 - 145 [facility] Comment on above: Performed By: #### C BC #### [address] [address] Urea nitrogen [Mass/Vol] 21 mg/dL Normal 6 - 23 [facility] Comment on above: Performed By: #### C BC #### [address] [address] VENOUS BLOOD GASon 2 BASE EXCESS-BLOOD 5.8 mmol/L High -2.0 - 3.0 [facility] Comment on above: Performed By: #### C BC #### [address] [address] BICARB, CALCULATED 31.2 mmol/L High 22.0 - 26.0 [facility] Comment on above: Performed By: #### C BC #### [address] [address] OXY HGB 68.9 % Normal 45.0 - 75.0 [facility] Comment on above: Performed By: #### C BC #### [address] [address] Oxygen (Bld) [Partial pressure] 41 mm[Hg] Normal 35 - 45 [facility] Comment on above: Performed By: #### C BC #### [address] [address] PATIENT TEMPERATURE 37.0 degrees C Normal [facility] Comment on above: Result Comment: NOTE : PATIENT RESULTS ARE NOT CORRECTED FOR TEMPERATURE. Performed By: #### C BC #### [address] [address] PCO2 47 mmHg Normal 41 - 51 [facility] Comment on above: Performed By: #### C BC #### [address] [address] pH (Bld) 7.43 [pH] Normal 7.33 - 7.43 [facility] Comment on above: Performed By: #### C BC #### [address] [address] SO2 70 % Normal 45 - 75 [facility] Comment on above: Performed By: #### C BC #### [address] [address] Admission Risk Screen - Adul ton 08-20-2021 Admission Risk Screen - Adult Allergies: Allergies: chest tightness: Other Amlodipine Besylate: Swelling/Edema valsartan: Swelling/Edema dicyclomine: Other meloxicam: Facial Swelling codeine: Other iopromide: Unknown morphine: Itching amoxicillin: Other metronidazole: Itching sulfa drugs: Rash Tape - Adhesive, Bandaids, Paper: Rash ciprofloxacin: Unknown levofloxacin: Unknown duloxetine: Unknown losartan: Unknown Intolerances: clarithromycin: Confusion, Mood Alteration doxycycline: Nausea/Vomiting predniSONE: Unknown guaifenesin: Unknown [place]: Unknown lovastatin: Unknown Rosuvastatin Calcium: Unknown carvedilol: Unknown clonidine: Unknown NIFEdipine: Unknown diltiazem: Unknown Patient Verification: New W ID Band Applied in my Departmentyes Patient Identity Verified Bypatient ID Band FULL Name, include Middle, spelling matches patient's ID used for verificationyes ID Band Matches Patient ID used for Verficationyes ID Band MRN Matches EMR MRNyes Visitor Restriction: Coronavirus Visitor Restriction: Reasonable restrictions to in-person visitors will be observed due to current coronavirus pandemic. Travel History: COVID-19 Screening Completedno exposure or symptoms Travel or Exposure Past 30 DaysNO travel to International locations in the past 30 days Ebola AlertFor Ebola-like Symptoms: Isolate Patient and Notify Provider/Certified Technician Specialist For Contact: Notify Provider/Certified Technician Specialist Advance Directive: Advance Directive/DNRyes Advance Directive typeLiving Will Living Will AvailabilityLiving Will not available now Living Will [id number] Jimenes Fall Screen: History of falling (immediate or previous)no (0) Secondary Diagnosisyes (15) Intravenous Therapy/ Heparin/Saline Lockyes (20) Gait/Transferringweak (10) Ambulatory Aidscrutches/walker/cane (15) Mental Statusoriented to own ability (0) Score: Low risk (<25). Moderate risk (25-44). High risk (>44).60 Jimenes InterventionsHIGH INTERVENTIONS *Low and Moderate Interventions Plus: * supervised toileting at all times Family Violence Screen: Are you or have you been threatened or abused physically, emotionally, or sexually by anyoneno Do you feel UNSAFE going back to the place where you are livingno Clinical assessment: Are there any apparent signs of injuries/behaviors that could be related to abuse/neglectno Social Service Consult for abuse/neglect needed this visitno Functional Screen: Functional Screen: In the recent/past 2-4 weeks, patient or family have noticedno issues that require a speech/language consult at this time AM-PAC- Basic Mobility/Daily Activity: Patient baseline bedboundno Learning Assessment (Patient): Patient is Able to be Assessed for Learningyes Factors Influencing Readiness to Learnnone Factors that Impact Ability to Learnphysical limitations Devices/Methods Used to Communicatenone Learning Preferencesaudio; verbal instruction Cultural Considerationscultural considerations Jehovahs Witness Developmental Considerationsnone Anabaptism Considerationsreligious considerations Jehovahs Witness Learning Assessment (Other Learner): Other learner availableno Depression Screen: During the past month, have you often been bothered by feeling down, depressed or hopelessyes During the past month, have you often had little interest or pleasure in doing thingsno Have you had any thoughts of harming anyone elseno [place] Suicide: Risk Screen Not Applicable/Able to Answerable to be screened In the Past Month: Have you wished you were or could go to sleep and not wake upno In the Past Month: Have you had any actual thoughts of killing yourselfno Lifetime: Have you ever done, started to do, or prepared to do anything to end your lifeno [place] Suicide Risknegative Adult Nutrition Screen: Have you recently lost weight without tryingno Have you been eating poorly because of a decreased appetiteno Malnutrition Screening Tool Score0 Malnutrition Screening Tool RiskMST = 0 or 1 Not at risk. Eating well with little or no weight loss Nutrition Consult needed this visitno Can Patient Participate in Room Serviceyes Patient requires Paper Dishes/Plastic Utensilsyes (sends order) Pain Screen: Pain Scalenumerical 0-10 Pain Scale Educationteaching provided Current Pain Level3 = Mild Acceptable Pain Level3 = Mild Expression of Pain (nonverbal)ADL's, inability to perform Chronic Painyes Chronic Chest pain locationmediastinal Chronic Lower Extremity pain locationbilateral, foot Spiritual Screen: Are there any cultural, spiritual, yazidi practices/values/needs that are important for us to knowyes Spiritual Care Commentcannot take blood products CAGE: Is this an injured patient at a Trauma Center ([facility]/[place]/ [place]): no Vaccinations: Vaccination - Influenza Vaccination (more content not included)... Normal [facility] BNPon 08-20-2021 Natriuretic peptide B (Bld) [Mass/Vol] 59 pg/mL Normal 0 - 99 [facility] Comment on above: Result Comment: . <1 00 pg/mL - Heart failure unlikely 100-299 pg/mL - Intermediate probability of acute heart . failure exacerbation. Correlate with clinical . context and patient history. >=300 pg/mL - Heart Failure likely. Correlate with clinical . context and patient history. BNP testing is performed using different testing methodology at [facility] than at other [facility]. Direct result comparisons should only be made within the same method. Performed By: #### C BC #### [place] [address] CBCon 08-20-2021 Erythrocyte distribution width (RBC) [Ratio] 13.6 % Normal 11.5 - 14.5 [facility] Comment on above: Performed By: #### C BC #### [place] [address] Hematocrit (Bld) [Volume fraction] 41.9 % Normal 36.0 - 46.0 [facility] Comment on above: Performed By: #### C BC #### [address] [address] Hemoglobin (Bld) [Mass/Vol] 14.0 g/dL Normal 12.0 - 16.0 [facility] Comment on above: Performed By: #### C BC #### [address] [address] MCHC (RBC) [Mass/Vol] 33.4 g/dL Normal 32.0 - 36.0 [facility] Comment on above: Performed By: #### C BC #### [place] [address] MCV (RBC) [Entitic vol] 88 fL Normal 80 - 100 [facility] Comment on above: Performed By: #### C BC #### [place] [address] Platelets (Bld) [#/Vol] 335 10*3/uL Normal 150 - 450 [facility] Comment on above: Performed By: #### C BC #### [place] [address] RBC 4.78 x10E12/L Normal 4.00 - 5.20 [facility] Comment on above: Performed By: #### C BC #### [place] [address] WBC (Bld) [#/Vol] 8.4 10*3/uL Normal 4.4 - 11.3 [facility] Comment on above: Performed By: #### C BC #### [place] [address] COMPREHENSIVE PANELon 2021 Albumin [Mass/Vol] 4.4 g/dL Normal 3.4 - 5.0 [facility] Comment on above: Performed By: #### C MP ####[place] [address] ALP [Catalytic activity/Vol] 56 U/L Normal 33 - 136 [facility] Comment on above: Performed By: #### C MP ####[place] [address] ALT [Catalytic activity/Vol] 18 U/L Normal 7 - 45 [facility] Comment on above: Result Comment: Madelyn ents treated with Sulfasalazine may generate falsely decreased results for ALT. Performed By: #### C MP ####[id number] [place] [address] Anion gap [Moles/Vol] 13 mmol/L Normal 10 - 20 [facility] Comment on above: Performed By: #### C MP ####[address] [address] AST [Catalytic activity/Vol] 15 U/L Normal 9 - 39 [facility] Comment on above: Performed By: #### C MP ####[address] [address] Bilirubin [Mass/Vol] 0.5 mg/dL Normal 0.0 - 1.2 [facility] Comment on above: Performed By: #### C MP ####[address] [address] Calcium [Mass/Vol] 9.4 mg/dL Normal 8.6 - 10.3 [place] [facility] Comment on above: Performed By: #### C MP ####[address] [address] Chloride [Moles/Vol] 104 mmol/L Normal 98 - 107 [facility] Comment on above: Performed By: #### C MP ####[address] [address] Creatinine [Mass/Vol] 0.78 mg/dL Normal 0.50 - 1.05 [facility] Comment on above: Performed By: #### C MP ####[address] [address] GFR/1.73 sq M.predicted among non-blacks MDRD (S/P/Bld) [Vol rate/Area] 78 mL/min/{1.73_m2} Normal >90 [facility] Comment on above: Result Comment: CALC ULATIONS OF ESTIMATED GFR ARE PERFORMED USING THE 2020 CKD-EPI STUDY REFIT EQUATION WITHOUT THE RACE VARIABLE FOR THE IDMS-TRACEABLE CREATININE METHODS. https://jasn.asnjournals.org/content//ASN.728606 0754 Performed By: #### C MP ####[address] [address] Glucose [Mass/Vol] 106 mg/dL High 74 - 99 [place] [facility] Comment on above: Performed By: #### C MP ####[address] [address] HCO3 (Bld) [Moles/Vol] 27 mmol/L Normal 21 - 32 [facility] Comment on above: Performed By: #### C MP ####[address] [address] Potassium [Moles/Vol] 3.8 mmol/L Normal 3.5 - 5.3 [facility] Comment on above: Performed By: #### C MP ####[address] [address] Protein [Mass/Vol] 6.9 g/dL Normal 6.4 - 8.2 [place] [facility] Comment on above: Performed By: #### C MP ####[address] [address] Sodium [Moles/Vol] 140 mmol/L Normal 136 - 145 [place] [facility] Comment on above: Performed By: #### C MP ####[address] [address] Urea nitrogen [Mass/Vol] 23 mg/dL Normal 6 - 23 [facility] Comment on above: Performed By: #### C MP ####[address] [address] CORONAVIRUS 2019 BY PCRon SARS-CoV-2 (COVID-19) RNA LAMIN+probe Ql (Unsp spec) Not detected Normal Not Detected [facility] Comment on above: Result Comment: . This test has received FDA Emergency Use Authorization (EUA) and has been verified by [facility]. This test is only authorized for the duration of time that circumstances exist to justify the authorization of the emergency use of in vitro diagnostic tests for the detection of SARS-CoV-2 virus and/or diagnosis of COVID-19 infection under section 564(b)(1) of the Act, 21 U.S.C. 360bbb-3(b)(1), unless the authorization is terminated or revoked sooner. [facility] is certified under CLIA-88 as qualified to perform high complexity testing. Testing is performed in the [facility] laboratory located at [address] [place] [address]. SARS-CoV-2/Flu/RSV Multiplex Test: Fact sheet for providers: https://www.fda.gov/media/469407/download Fact sheet for patients: https://www.fda.gov/media/032047/download Performed By: #### C OV19 ####[place] [address] Lab Specimen Source Nasal, Nasopharyngeal Normal [facility] Comment on above: Performed By: #### C OV19 ####[place] [address] Covid 19 Resultson 2 SARS-CoV-2 (COVID-19) RNA LAMIN+probe Ql (Unsp spec) NEGATIVE COVID-19 Test Coronaviruses are common world-wide and are the cause of many common colds. SARS-COV2 is a new coronavirus that began circulating worldwide in 2019 so we are calling it COVID-19. It has been estimated that four out of five patients with COVID-19 will recover at home without the need for medical attention. Symptoms of COVID-19 may include cough, fever, shortness of breath, loss of taste or smell and other flu-like symptoms including chills, sore muscles, sore throat, and headache. Severe illness is more common in older people and people with other health problems such as high blood pressure, obesity, and immune system problems. If the test is positive, you have COVID-19. You will be contacted by the ordering physicians office and instructed to remain on home isolation, in accordance with CDC guidelines. You may also be contacted by the [facility] to see if any of your close contacts may have been exposed to the virus and need to quarantine. If the test is negative, you likely do not have COVID-19 at this time, but you still may have a different illness that can spread to other people (like Influenza, or the Flu) and could still be at risk for getting COVID-19. We recommend that you stay away from other people to limit the spread of illness until your symptoms are improving and you are fever-free for 24 hours without the use of fever lowering medications such as acetaminophen or ibuprofen. No test is 100% accurate so if you are still concerned you may have COVID-19, talk to your doctor about the need to continue to stay away from others. Medicines Unless your provider told you not to use the following: Acetaminophen (Tylenol and others) is generally safe. Anti-inflammatory medications, such as Ibuprofen (Advil or Motrin) or Naproxen (Aleve) can also be used. Oxir-ype-aftkfkb cough and cold medicines can be used according to the instructions on the package. Some bwxm-wth-mzajqum medicines also contain acetaminophen. Make sure you are not taking more than your recommended dose. For those not hospitalized, there is no specific treatment available for this illness. Antibiotics do not treat Coronaviruses. Follow-Up Follow up with your doctor by scheduling a virtual visit or consider follow-up at one of our urgent care fever clinics. If you are having difficulty breathing, or are very weak and having difficulty standing, this is a medical emergency. Call 911 or have someone take you to the nearest emergency room immediately. If possible, wear a facemask. Additional guidance from the CDC for patients who tested POSITIVE for COVID-19 How to isolate: Isolate yourself in a specific room at home and limit your contact with others. Use a separate bathroom from other members of the household, when possible. Leave home only to get essential medical care. Do not go to work, school or public areas. Avoid using public transportation, ride-sharing, or taxis. Restrict contact with pets and other animals. If you must care for your pet or be around animals while you are sick, wash your hands before and after your interaction and wear a facemask. Make sure that shared spaces in the home have good airflow, such as by an air conditioner or an opened window, weather permitting. Personal Hygiene Procedures: Wear a face mask when in the same room as other people or pets. If a face mask interferes with your breathing, others should wear a mask when sharing space with you. Frequent hand-washing: wash your hands with soap and water for at least 20 seconds. If soap and water are not available, use alcohol-based hand waxing machine operator. Avoid touching your eyes, nose, and mouth with unwashed hands. Household Hygiene Procedures: Avoid sharing personal household items such as dishes, glassware, cups, eating utensils, towels or bedding with other people or pets in your home. After use, these items should be washed with soap and hot water. Disinfect all high-touch surfaces every day with antibacterial cleaning solutions such as Lysol wipes, bleach, cleansers, etc. High-touch surfaces include tabletops, doorknobs, bathroom fixtures, toilets, phones, keyboards, tablets and bedside tables. Immediately clean any surfaces that may have blood, poop or body fluids on them, using antibacterial cleaning solutions such as Lysol wipes, bleach, cleansers, etc. If clothing or bedding come into contact with blood, poop or body fluids, they should be washed immediately. Follow the directions on the laundry detergent and clothing labels but hot water is recommended when possible. Stopping home isolation precautions: If possible, consult your doctor before stopping home isolation precautions. According to the CDC, you can discontinue home isolation precautions when you have met both of these criteria: Your fever and respiratory symptoms have been gone for 24 jonnie (more content not included)... Normal [facility] GLUCOSE-POCTon 08-20-2021 Glucose [Mass/Vol] 159 mg/dL High 74 - 99 [place] [facility] Comment on above: Performed By: #### G CAROLYN ####[address] [address] Glucose [Mass/Vol] 85 mg/dL Normal 74 - 99 [place] [facility] Comment on above: Performed By: #### G CAROLYN ####[facility] [place] [address] Glucose [Mass/Vol] 110 mg/dL High 74 - 99 [place] [facility] Comment on above: Performed By: #### G CAROLYN ####[address] [address] Patient Profile - Adult v2on 08-20-2021 Patient Profile - Adult v2 Profile: Initial Info: How to be Addressedcarol Spoken Language PreferredEnglish (1) Stated Reason for Admissionbecause dr sent me for congestive heart failure Wants Family/Rep Notified of Admissionno Notify PCPdo not notify PCP Informed of Patient Visiting [place] Patient Belongingsremains with patient Patient Belongings Remaining with Patientclothing; cell phone/electronics; dental appliance; medication(s); purse and wallet sent home Medications Brought to Hospitalyes General Health: Weight in kg93.9 kilogram(s) Weight in olo641 pound(s) Weight Methodactual (measured) Scale Typebed Height in cm152.4 centimeter(s) Height in feet5 feet Height in inches0 inch(es) Height Methodstated BMI (kg/m2)40.429 square meter RSP Based Care: How would you like to participate in your caretell me what to take and when What is the number one concern for you during this hospitalizationI don't have one What is the most important thing we can do to support you during this hospitalizationno Is there anything we need to know to best care for younone Substance: Smoking Statusformer smoker (2) Health Mgmt: Symptoms/Conditions Managed at Homerespiratory; chronic pain Chronic Pain Locationfeet, sternum, ribs Chronic Pain Relieving Factorsmedication; relaxation Chronic Pain Management Strategiesadequate rest Chronic Pain Managementmanaged Respiratory Symptoms/Conditionsasthma Respiratory Managementmanaged Relationship/Environ: Resource/Environmental Concernsnone Primary Source of Support/Comfortchild(julissa) Lives Withadult child(julissa) Living Arrangementshouse Services Anticipated at Transitionnone Anticipated Transition [place] Significant IndicatorsComplete Information Review: Allergies, Home Meds and Significant Events have been Reviewed and Verified with Patient/Familyyes ALLERGY, INTOLERANCE, ADVERSE EVENT: Allergies: chest tightness: Contrast, Other, Active Amlodipine Besylate: Drug, Swelling/Edema, Active valsartan: Drug, Swelling/Edema, Active dicyclomine: Drug, Other, Active meloxicam: Drug, Facial Swelling, Active codeine: Drug, Other, Active iopromide: Drug, Unknown, Active morphine: Drug, Itching, Active amoxicillin: Drug, Other, Active metronidazole: Drug, Itching, Active sulfa drugs: Drug Category, Rash, Active Tape - Adhesive, Bandaids, Paper: Environment, Rash, Active ciprofloxacin: Drug, Unknown, Active levofloxacin: Drug, Unknown, Active duloxetine: Drug, Unknown, Active losartan: Drug, Unknown, Active Intolerances: clarithromycin: Drug, Confusion, Mood Alteration, Active doxycycline: Drug, Nausea/Vomiting, Active predniSONE: Drug, Unknown, Active guaifenesin: Drug, Unknown, Active [place]: Drug, Unknown, Active lovastatin: Drug, Unknown, Active Rosuvastatin Calcium: Drug, Unknown, Active carvedilol: Drug, Unknown, Active clonidine: Drug, Unknown, Active NIFEdipine: Drug, Unknown, Active diltiazem: Drug, Unknown, Active Electronic Signatures: Janet Fishman (RN) (Signed 20-Aug-2021 16:47) Authored: Initial Info, General Health, [facility] Based Care, Substance, Health Mgmt, Relationship/Environ, Additional Information Last Updated: 20-Aug-2021 16:47 by Janet Fishman (RN) References: 1. Data Referenced From Triage - ED 29-Dec-2020 12:03 2. Data Referenced From History and Physical 20-Aug-2021 13:14 Normal [facility] VITAMIN D 25 HYDROXYon 07-15 25-hydroxyvitamin D3 [Mass/Vol] 22.9 ng/mL Low 31.0 - 80.0 ng/mL [facility] URINE CULTUREon 07-13-2021 Bacteria identified Cx Nom (U) 10,000 -<50,000 CFU/ml Normal urogenital noah [facility] CBC panel Auto (Bld)on 07-12 Erythrocyte distribution width (RBC) [Ratio] 13.9 % 11.5 - 15.0 % [facility] Hematocrit (Bld) [Volume fraction] 40.6 % 36.0 - 46.0 % [facility] Hemoglobin (Bld) [Mass/Vol] 13.2 g/dL 11.5 - 15.5 g/dL [facility] MCH (RBC) [Entitic mass] 28.9 pg 26.0 - 34.0 pg [facility] MCHC (RBC) [Mass/Vol] 32.5 g/dL 30.5 - 36.0 g/dL [facility] MCV (RBC) [Entitic vol] 88.8 fL 80.0 - 100.0 fL [facility] Nucleated RBC (Bld) [#/Vol] 10*3/uL <0.01 k/uL [facility] Platelet mean volume (Bld) [Entitic vol] 9.1 fL 9.0 - 12.7 fL [facility] Platelets (Bld) [#/Vol] 320 10*3/uL 150 - 400 k/uL [facility] RBC (Bld) [#/Vol] 4.57 10*6/uL 3.90 - 5.20 m/uL [facility] WBC (Bld) [#/Vol] 7.42 10*3/uL 3.70 - 11.00 k/uL [facility] Comprehensive metabolic 2000 panelon 07-12-2021 Albumin [Mass/Vol] 4.2 g/dL 3.9 - 4.9 g/dL [facility] ALP [Catalytic activity/Vol] 58 U/L 34 - 123 U/L [facility] ALT [Catalytic activity/Vol] 9 U/L 7 - 38 U/L [facility] Anion gap [Moles/Vol] 9 mmol/L 9 - 18 mmol/L [facility] AST [Catalytic activity/Vol] 10 U/L Low 13 - 35 U/L [facility] Bilirubin [Mass/Vol] 0.3 mg/dL 0.2 - 1 .3 mg/dL [facility] Calcium [Mass/Vol] 9.5 mg/dL 8.5 - 10. 2 mg/dL [facility] Chloride [Moles/Vol] 106 mmol/L High 97 - 10 5 mmol/L [facility] CO2 [Moles/Vol] 25 mmol/L 22 - 30 mmol/L [facility] Creatinine [Mass/Vol] 0.72 mg/dL 0.58 - 0.96 mg/dL [facility] Estimated Glomerular Filtration Rate 86 mL/min/1.73m >=60 mL/min/1.7 3m [facility] Glucose [Mass/Vol] 128 mg/dL High 74 - 99 mg/dL [facility] Potassium [Moles/Vol] 4.3 mmol/L 3.7 - 5.1 mmol/L [facility] Protein [Mass/Vol] 6.9 g/dL 6.3 - 8.0 g/dL [facility] Sodium [Moles/Vol] 140 mmol/L 136 - 144 mmol/L [facility] Urea nitrogen [Mass/Vol] 18 mg/dL 7 - 21 mg/dL [facility] Ferritin [Mass/Vol] 190.0 ng/mL 14.7 - 205.1 ng/mL [facility] Iron and Iron binding capaci ty panelon 07-12-2021 Iron [Mass/Vol] 87 ug/dL 41 - 186 ug/dL [facility] Iron binding capacity [Mass/Vol] 273 ug/dL 232 - 386 ug/dL [facility] Iron/TIBC [Molar ratio] 32 % 15 - 57 % [facility] Lipid 1996 panelon Cholesterol [Mass/Vol] 217 mg/dL High <200 mg/dL [facility] Cholesterol in HDL [Mass/Vol] 39 mg/dL Low >39 mg/dL [facility] Cholesterol in LDL [Mass/Vol] 155 mg/dL High <100 mg/dL [facility] Cholesterol in LDL/Cholesterol in HDL [Mass ratio] 3.97 {ratio} High <2.54 [facility] Cholesterol in VLDL [Mass/Vol] 23 mg/dL <30 mg/dL [facility] Cholesterol non HDL [Mass/Vol] 178 mg/dL High <130 mg/dL [facility] Cholesterol.total/Cho lesterol in HDL [Mass ratio] 5.56 {ratio} High <5.10 [facility] Fasting Time 12 hrs [facility] Triglyceride [Mass/Vol] 114 mg/dL <150 mg/dL [facility] MAGNESIUM [facility] 07-12-2021 Magnesium [Mass/Vol] 2.0 mg/dL 1.7 - 2 .3 mg/dL [facility] No Panel Informationon 07-12 [facility] T4 FREE/FREE THYROXon 2021 Free T4 [Mass/Vol] 1.1 ng/dL 0.9 - 1.7 ng/dL [facility] TSH [facility] 07-12-2021 TSH Qn 0.549 m[IU]/L 0.270 - 4.200 mIU/L [facility] Urinalysis complete panel (U )on 07-12-2021 Bilirubin Ql (U) Negative Negative [facility] Clarity (Unsp spec) Slightly Cloudy Abnormal Clear [facility] Color (U) Yellow Yellow [facility] Epithelial cells LM.HPF (Urine sed) [#/Area] Few Abnormal None Seen /HPF [facility] Glucose Test strip (U) [Mass/Vol] Negative Negative [facility] Hemoglobin Ql (U) Negative Negative [facility] Ketones Ql (U) Negative Negative [facility] Leukocyte esterase Test strip Ql (U) 2+ Abnormal Negative [facility] Nitrite Ql (U) Negative Negative [facility] pH (U) 5.0 [pH] 5.0 - 8.0 [facility] Protein (U) [Mass/Vol] Negative Negative [facility] RBC LM.HPF (Urine sed) [#/Area] 0-3 /HPF 0-3 /HPF [facility] Specific gravity (U) [Rel density] 1.021 1.005 - 1.030 [facility] Urobilinogen Ql (U) Negative Negative [facility] WBC LM.HPF (Urine sed) [#/Area] 0-5 /HPF 0-5 /HPF [facility] XR Foot - right AP and Later al and obliqueon 07-12-2020 IMPRESSION: Degenerative changes. Plantar calcaneal enthesophyte. Osseous demineralization. Splitting Machine Feeder: [facility] Transcribe Date/Time: Jul 12 2020 4:25P Dictated by : SABA MCWILLIAMS MD This examination was interpreted and the report reviewed and electronically signed by: SABA MCWILLIAMS MD on Jul 12 2020 4:29PM [facility] DIVISION OF RADIOLOGY * * *Final Report* * * DATE OF EXAM: Jul 12 2020 2:28PM WOX 5337 - XR FOOT 3V AP/LAT/OBL RT / PROCEDURE REASON: multiple diagnoses * * * * Physician Interpretation * * * * CLINICAL INDICATION: Diabetes. Hit foot on chair 3 months ago. TECHNIQUE: 3 view radiographic study of the right foot COMPARISON: Radiograph dated February 09, 2019 FINDINGS: Osseous demineralization. No fracture or dislocation identified. Degenerative changes of the metatarsal tarsal and tarsal joints with joint space narrowing and subchondral sclerosis. Plantar calcaneal enthesophyte. DIVISION OF RADIOLOGY Provider, [facility] Misha Jacobson - 07/12/2020 * * *Final Report* * * DATE OF EXAM: Jul 12 2020 2:28PM WOX 5337 - XR FOOT 3V AP/LAT/OBL RT / PROCEDURE REASON: multiple diagnoses * * * * Physician Interpretation * * * * CLINICAL INDICATION: Diabetes. Hit foot on chair 3 months ago. TECHNIQUE: 3 view radiographic study of the right foot COMPARISON: Radiograph dated February 09, 2019 FINDINGS: Osseous demineralization. No fracture or dislocation identified. Degenerative changes of the metatarsal tarsal and tarsal joints with joint space narrowing and subchondral sclerosis. Plantar calcaneal enthesophyte. IMPRESSION IMPRESSION: Degenerative changes. Plantar calcaneal enthesophyte. Osseous demineralization. Splitting Machine Feeder: [facility] Transcribe Date/Time: Jul 12 2020 4:25P Dictated by : SABA MCWILLIAMS MD This examination was interpreted and the report reviewed and electronically signed by: SABA MCWILLIAMS MD on Jul 12 2020 4:29PM EST [facility] Radiology Study observation (narrative) [facility] XR Foot - right AP and Later al and obliqueOrdered By: Ccf Provider on 07-12-2020 [facility] Otheron 07-06-2020 [id number] 5.238[facility], Cath [address] [place] [id number] [phone] Vpipyyedrrzpg r Catheterization ReportPatient Name: WHITNEY RUIZ Performing Physician: [id number] Lambert MDStudy Date: 07/06/2020 Verifying Physician: Erwin Lambert MDMRN/PID: [id number] Conductor Orchestra:Accession/Or arielle#: [id number] Referring Physician: Lien Gibbs MDDate of : 1945 Referring Physician:Gender: F Referring Physician:Study: Left Heart CatheterizationIndication s:WHITNEY RUIZ is a 75 year old female who presents with hypertension and prior percutaneous coronary intervention. New onset angina <=2 months, with a chest pain assessment of typical angina. Study performed as an elective cath procedure.Medical History:Stress test performed: No. CTA performed: No. Hector accessed: No. LVEF Assessed: Yes.Procedure Description:After infiltration with 2% Lidocaine, the right radial artery was cannulated with a modified Seldinger technique. Subsequently a 6 Syrian sheath was placed in the right radial artery. Additional catheter(s) used to visualize the coronary arteries were: Jacqi.Coronary Angiography:The coronary circulation is right dominant.Left Main Coronary Artery:The left main coronary artery is a normal caliber vessel. The left main arises normally from the left coronary sinus of Valsalva and bifurcates into the LAD and circumflex coronary arteries. The left main coronary artery showed no significant disease or stenosis greater than 30%.Left Anterior Descending Coronary Artery Distribution:The left anterior descending coronary artery is a normal caliber vessel. The LAD arises normally from the left main coronary artery. The LAD demonstrated a previous patent stent.Circumflex Coronary Artery Distribution:The circumflex coronary artery is a normal caliber vessel. The circumflex arises normally from the left main coronary artery and terminates in the AV groove. The circumflex revealed mild atherosclerotic disease.Right Coronary Artery Distribution:The right coronary artery is a normal caliber vessel. The RCA arises normally from the right sinus of Valsalva. The RCA showed mild atherosclerotic disease. The right posterior descending artery is a normal caliber vessel. The right posterior descending artery showed moderate atherosclerotic disease. The distal right posterior descending artery revealed 50% stenosis.Valve Findings:No aortic valve stenosis is visualized.Coronary Lesion Summary:Vessel Stenosis Vessel SegmentRPDA 50% stenosis distalHemo Personnel:+ -------+ + \F\Name \F\Duty \F\+ + +\F\Franck Quigley MD \F\ PROC MD 1\F\+ -+ +\F\Chelsea Ryan RTR \F\ PROC SCRUB 1\F\+ -+ +\F\Braeden Pulido RN \F\ PROC CIRC 1\F\+ -+ +\F\Lalito Aguilera RN \F\ PROC RECORD 1\F\+ -+ +\F\Zelda Luna RN \F\ PROC NURSE 1\F\+ -+ +\F\Yovany Cerna RN\F\ PROC NURSE 2\F\+ -+ +\F\Chelsea Ryan RTR \F\PROC DAM TENDER 1\F\+ -+ +Jeremiahati on Time:+ -----+ +\ F\Sedation Start/End Times\F\Time \F\+ ---+ +\F\ End \F\07/06/2020 11:12:34\F\+ + ----+Equipment Used:+ -+ ---------+\F\ Date/Time\F\ Description\F\+ + +\F\07/06 10:46:12 AM\F\{Accessories} - Capnoflex LF Oral/Nasal CO2 - Qty: 1 Each\F\\F\ \F\ Part #: 483\F\+ --+ +\F\07/06/2020 10:46:19 AM\F\ {Closure Device} Terumo TR Band Regular - Qty: 1 Each\F\\F\ \F\ Part #: [id number]\F\+ ----+ +\F\07/06/2020 10:46:50 AM\F\ {6 Syrian Catheter} Terumo Cath 6FR Armand 3.5 Optitorque\F\\F\ \F\ - Qty: 1 Each Part #: 58\F\+ -+ ---------+\F\07/06/2020 10:46:54 AM\F\ {Diagnostic Wire} Gurpreet Vázquez Guidewire 1.5mm J\F\\F\ \F\ 210cm .035 - Qty: 1 Each Part #: 509\F\+ --+ +\F\07/06/2020 10:47:00 AM\F\ {6 Syrian Sheath} - Glidesheath Slender 6 FR x 10cm -\F\\F\ \F\ Qty: 1 Each Part #: 13\F\+ -+ ---------+Fluoroscopy Time:+ -------+--------+\F\X-Ray Summary Fluoro Time:\F\2.00 min\F\+ --------+--------++------ ----+--------+\F\Contrast : \F\Dose: \F\+ +--------+\ F\Omnipaque:\F\40.00 ml\F\+ +-------- +Hemodynamic Pressures:+----+--------- +---------+---- --------+ +-- ----+---------+\F\Site\F\ Date Time \F\ Phase \F\ Systolic \F\ Diastolic \F\ ED \F\Mean mmHg\F\\F\ \F\ \F\ Name \F\ mmHg \F\ mmHg \F\ mmHg \F\ \F\+----+ ---+---------+ -+ +------+-- -------+\F\ AO\F\ 07/06/2020 11:08:04\F\ AIR REST\F\ 173\F\ 81\F\ \F\ 123\F\\F\ \F\ AM\F\ \F\ \F\ \F\ \F\ \F\+----+ ---+---------+ -+ +------+-- -------+\F\ LV\F\ 07/06/2020 11:11:33\F\ AIR REST\F\ 160\F\ 13\F\ 19\F\ \F\\F\ \F\ AM\F\ \F\ \F\ \F\ \F\ \F\+----+ ---+---------+ -+ +------+-- -------+\F\ LVp\F\ 07/06/2020 11:11:37\F\ AIR REST\F\ 160\F\ 14\F\ 21\F\ \F\\F\ \F\ AM\F\ \F\ \F\ \F\ \F\ \F\+----+ ---+---------+ -+ +------+-- -------+\F\ AOp\F\ 07/06/2020 11:11:44\F\ AIR REST\F\ 164\F\ 80\F\ \F\ 113\F\\F\ \F\ AM\F\ \F\ \F\ \F\ \F\ \F\+----+ ---+---------+ -+ +------+-- -------+Oxygen Saturation %:+ + --+\F\Sample Site\F\HB (g/100ml)\F\+ + +\F\ SYS ART\F\ 13.1\F\+ +----- -------+\F\ SYS ANTONIO\F\ 13.1\F\+ +----- -------+\F\ PUL ART\F\ 13.1\F\+ +----- -------+\F\ PUL ANTONIO\F\ 13.1\F\+ +----- -------+Complications:No in-lab complications observed.Cardiac Cath Transition of Care Summary:Post Procedure Diagnosis: Single vessel disease.Blood Loss: Estimated blood loss during the procedure was 0 mls.Specimens Removed: Number of specimen(s) removed: none.Recommendations:Maxi papo medical therapy. CONCLUSI ONS:1. Moderate non-obstructive coronary artery disease.2. The right posterior descending artery showed moderate atherosclerotic disease.3. Elevated LV filling pressures.4. Left Ventricular end-diastolic pressure = 21. CPT Codes:Left Heart Cath (visualization of coronaries) and LV-10167; Moderate Sedation Services initial 15 minutes patient >5 years-24442IVD 10 Codes:I20.0-Unstable [id number] Franck Lambert MDPerforming Physician [facility] Report to: Lien Gibbs MD Final OREN-CardiologyFanta Beatty Work Phone: Coronavirus 2019 RNA by PCR, Screening Asymptomticon 07-05-2020 Coronavirus 2019 RNA by PCR, Screening Asymptomtic NOT DETECTED Normal See Below Randall Beatty Work Phone: Comment on above: SOURCE: Nasal, Nasop haryngealReference Range: Not Detected.This test has received FDA Emergency Use Authorization (EUA) and has been verified by [facility]. This test is only authorized for the duration of time that circumstances exist to justify the authorization of the emergency use of in vitro diagnostic tests for the detection of SARS-CoV-2 virus and/or diagnosis of COVID-19 infection under section 564(b)(1) of the Act, 21 U.S.C. 360bbb-3(b)(1), unless the authorization is terminated or revoked sooner. [facility] is certified under CLIA-88 as qualified to perform high complexity testing. Testing is performed in the [facility] laboratory located at [address] [place] [address].SARS-CoV-2/Flu/RSV Multiplex Test: Fact sheet for providers: https://www.fda.gov/media/975342/downloadFact sheet for patients: https://www.fda.gov/media/546469/download T3 Uptake DO NOT ORDER ON CC F PATIENTSon 10-19-2019 T3 Uptake 31 % Normal 28-41 [facility] Reference Lab Comment on above: Performed By: #### C BCDIF, CMP, LIPB, TSH, T4, HBA1C, VITD #### [facility] Routine Lab [address] [address] CBC and Differentialon 10-12 Abs Baso 0.03 k/uL Normal <0.11 [facility] Reference Lab Comment on above: Performed By: #### C BCDIF, CMP, LIPB, TSH, T4, HBA1C, VITD #### [facility] Routine Lab [address] [place], [place] [address] Abs [place] 0.78 k/uL Normal <0.87 [facility] Reference Lab Comment on above: Performed By: #### C BCDIF, CMP, LIPB, TSH, T4, HBA1C, VITD #### [facility] Routine Lab [address] [place], [place] [address] Abs Neut 4.39 k/uL Normal 1.45-7.50 [facility] Reference Lab Comment on above: Performed By: #### C BCDIF, CMP, LIPB, TSH, T4, HBA1C, VITD #### [facility] Routine Lab [address] [phone] Absolute nRBC <0.01 Normal <0.01 [facility] Reference Lab Comment on above: Performed By: #### C BCDIF, CMP, LIPB, TSH, T4, HBA1C, VITD #### [facility] Routine Lab [address] [phone] Basophils/100 WBC (Bld) 0.4 % Normal [facility] Reference Lab Comment on above: Performed By: #### C BCDIF, CMP, LIPB, TSH, T4, HBA1C, VITD #### [facility] Routine Lab [address] [phone] DTYPE ADIFF Normal [facility] Reference Lab Comment on above: Performed By: #### C BCDIF, CMP, LIPB, TSH, T4, HBA1C, VITD #### [facility] Routine Lab [address] [phone] Eosinophils (Bld) [#/Vol] 0.17 10*3/uL Normal <0.46 [facility] Reference Lab Comment on above: Performed By: #### C BCDIF, CMP, LIPB, TSH, T4, HBA1C, VITD #### [facility] Routine Lab [address] [phone] Eosinophils/100 WBC (Bld) 2.4 % Normal [facility] Reference Lab Comment on above: Performed By: #### C BCDIF, CMP, LIPB, TSH, T4, HBA1C, VITD #### [facility] Routine Lab [address] [phone] Erythrocyte distribution width (RBC) [Ratio] 14.0 % Normal 11.5-15.0 [facility] Reference Lab Comment on above: Performed By: #### C BCDIF, CMP, LIPB, TSH, T4, HBA1C, VITD #### [facility] Routine Lab [address] [address] Hematocrit (Bld) [Volume fraction] 41.0 % Normal 36.0-46.0 [facility] Reference Lab Comment on above: Performed By: #### C BCDIF, CMP, LIPB, TSH, T4, HBA1C, VITD #### [facility] Routine Lab [address] [address] Hemoglobin (Bld) [Mass/Vol] 12.9 g/dL Normal 11.5-15.5 [facility] Reference Lab Comment on above: Performed By: #### C BCDIF, CMP, LIPB, TSH, T4, HBA1C, VITD #### [facility] Routine Lab [address] [place] [phone] Lymphocytes (Bld) [#/Vol] 1.61 10*3/uL Normal 1.00-4.00 [facility] Reference Lab Comment on above: Performed By: #### C BCDIF, CMP, LIPB, TSH, T4, HBA1C, VITD #### [facility] Routine Lab [address] [place] [address] Lymphocytes/100 WBC (Bld) 23.0 % Normal [facility] Reference Lab Comment on above: Performed By: #### C BCDIF, CMP, LIPB, TSH, T4, HBA1C, VITD #### [facility] Routine Lab [address] [place] [address] MCH (RBC) [Entitic mass] 29.1 pG Normal 26.0-34.0 [facility] Reference Lab Comment on above: Performed By: #### C BCDIF, CMP, LIPB, TSH, T4, HBA1C, VITD #### [facility] Routine Lab [address] [place] [address] MCHC (RBC) [Mass/Vol] 31.5 g/dL Normal 30.5-36.[address] [facility] Reference Lab Comment on above: Performed By: #### C BCDIF, CMP, LIPB, TSH, T4, HBA1C, VITD #### [facility] Routine Lab [address] [address] MCV (RBC) [Entitic vol] 92.3 fL Normal 80.0-100.0 [facility] Reference Lab Comment on above: Performed By: #### C BCDIF, CMP, LIPB, TSH, T4, HBA1C, VITD #### [facility] Routine Lab [address] [address] Monocytes/100 WBC (Bld) 11.2 % Normal [facility] Reference Lab Comment on above: Performed By: #### C BCDIF, CMP, LIPB, TSH, T4, HBA1C, VITD #### [facility] Routine Lab [address] [address] Neutrophils/100 WBC (Bld) 63.0 % Normal [facility] Reference Lab Comment on above: Performed By: #### C BCDIF, CMP, LIPB, TSH, T4, HBA1C, VITD #### [facility] Routine Lab [address] [address] NRBCs 0.0 /100 WBC Normal 0 [facility] Reference Lab Comment on above: Performed By: #### C BCDIF, CMP, LIPB, TSH, T4, HBA1C, VITD #### [facility] Routine Lab [address] [address] Platelet mean volume (Bld) [Entitic vol] 10.1 fL Normal 9.0-12.7 [facility] Reference Lab Comment on above: Performed By: #### C BCDIF, CMP, LIPB, TSH, T4, HBA1C, VITD #### [facility] Routine Lab [address] [address] Platelets (Bld) [#/Vol] 329 10*3/uL Normal 150-400 [facility] Reference Lab Comment on above: Performed By: #### C BCDIF, CMP, LIPB, TSH, T4, HBA1C, VITD #### [facility] Routine Lab [address] [place], [place] [phone] RBC (Bld) [#/Vol] 4.44 10*6/uL Normal 3.90-5.20 [facility] Reference Lab Comment on above: Performed By: #### C BCDIF, CMP, LIPB, TSH, T4, HBA1C, VITD #### [facility] Routine Lab [address] [address] WBC (Bld) [#/Vol] 6.99 10*3/uL Normal 3.70-11.00 [facility] Reference Lab Comment on above: Performed By: #### C BCDIF, CMP, LIPB, TSH, T4, HBA1C, VITD #### [facility] Routine Lab [address] [address] Comp Metabolic Panelon 10-12 Albumin [Mass/Vol] 4.3 g/dL Normal 3.9-4.9 [facility] Reference Lab Comment on above: Performed By: #### C BCDIF, CMP, LIPB, TSH, T4, HBA1C, VITD #### [facility] Routine Lab [address] [place] [address] ALP [Catalytic activity/Vol] 56 U/L Normal 34-123 [facility] Reference Lab Comment on above: Performed By: #### C BCDIF, CMP, LIPB, TSH, T4, HBA1C, VITD #### [facility] Routine Lab [address] [place] [address] ALT [Catalytic activity/Vol] 15 U/L Normal 7-38 [facility] Reference Lab Comment on above: Performed By: #### C BCDIF, CMP, LIPB, TSH, T4, HBA1C, VITD #### [facility] Routine Lab [address] [phone] Anion gap [Moles/Vol] 13 mmol/L Normal 9-[address] [facility] Reference Lab Comment on above: Performed By: #### C BCDIF, CMP, LIPB, TSH, T4, HBA1C, VITD #### [facility] Routine Lab [address] [place], [place] [address] AST [Catalytic activity/Vol] 20 U/L Normal 13-35 [facility] Reference Lab Comment on above: Performed By: #### C BCDIF, CMP, LIPB, TSH, T4, HBA1C, VITD #### [facility] Routine Lab [address] [address] Bilirubin Ql (U) 0.3 mg/dL Normal 0.2-1.3 [facility] Reference Lab Comment on above: Performed By: #### C BCDIF, CMP, LIPB, TSH, T4, HBA1C, VITD #### [facility] Routine Lab [address] [address] Calcium [Mass/Vol] 9.7 mg/dL Normal 8.5-10.2 [facility] Reference Lab Comment on above: Performed By: #### C BCDIF, CMP, LIPB, TSH, T4, HBA1C, VITD #### [facility] Routine Lab [address] [place], [place] [address] Chloride [Moles/Vol] 105 mmol/L Normal 97-105 [facility] Reference Lab Comment on above: Performed By: #### C BCDIF, CMP, LIPB, TSH, T4, HBA1C, VITD #### [facility] Routine Lab [address] [address] CO2 [Moles/Vol] 23 mmol/L Normal 22-30 [facility] Reference Lab Comment on above: Performed By: #### C BCDIF, CMP, LIPB, TSH, T4, HBA1C, VITD #### [facility] Routine Lab [address] [place], [place] [address] Creatinine [Mass/Vol] 0.62 mg/dL Normal 0.58-0.[address] [facility] Reference Lab Comment on above: Performed By: #### C BCDIF, CMP, LIPB, TSH, T4, HBA1C, VITD #### [facility] Routine Lab [address] [place], [place] [address] eGFR- Amer. >60 Normal [facility] Reference Lab Comment on above: Performed By: #### C BCDIF, CMP, LIPB, TSH, T4, HBA1C, VITD #### [facility] Routine Lab [address] [place], [place] [address] GFR/1.73 sq M predicted among non-blacks MDRD (S/P/Bld) [Vol rate/Area] mL/min/{1.73_m2} Normal [facility] Reference Lab Comment on above: Performed By: #### C BCDIF, CMP, LIPB, TSH, T4, HBA1C, VITD #### [facility] Routine Lab [address] [place], [place] [address] Glucose [Mass/Vol] 109 mg/dL High 74-99 [facility] Reference Lab Comment on above: Performed By: #### C BCDIF, CMP, LIPB, TSH, T4, HBA1C, VITD #### [facility] Routine Lab [address] [place], [place] [address] Potassium [Moles/Vol] 4.4 mmol/L Normal 3.7-5.[address] [facility] Reference Lab Comment on above: Performed By: #### C BCDIF, CMP, LIPB, TSH, T4, HBA1C, VITD #### [facility] Routine Lab [address] [address] Protein [Mass/Vol] 7.1 g/dL Normal 6.3-8.0 [facility] Reference Lab Comment on above: Performed By: #### C BCDIF, CMP, LIPB, TSH, T4, HBA1C, VITD #### [facility] Routine Lab [address] [place], [place] [address] Sodium [Moles/Vol] 141 mmol/L Normal 136-144 [facility] Reference Lab Comment on above: Performed By: #### C BCDIF, CMP, LIPB, TSH, T4, HBA1C, VITD #### [facility] Routine Lab [address] [place], [place] [address] Urea nitrogen [Mass/Vol] 16 mg/dL Normal 7-21 [facility] Reference Lab Comment on above: Performed By: #### C BCDIF, CMP, LIPB, TSH, T4, HBA1C, VITD #### [facility] Routine Lab [address] [address] Hemoglobin A1con 10-13-2019 HbA1c (Bld) [Mass fraction] 6.9 % High 4.3-5.6 [facility] Reference Lab Comment on above: Performed By: #### C BCDIF, CMP, LIPB, TSH, T4, HBA1C, VITD #### [facility] Routine Lab [address] [place], [place] [address] HbA1c (Bld) [Mass fraction] 151 mg/dL Normal [facility] Reference Lab Comment on above: Performed By: #### C BCDIF, CMP, LIPB, TSH, T4, HBA1C, VITD #### [facility] Routine Lab [address] [place] [phone] Lipid Panel, Basicon 020 Cholesterol [Mass/Vol] 216 mg/dL High <200 [facility] Reference Lab Comment on above: Performed By: #### C BCDIF, CMP, LIPB, TSH, T4, HBA1C, VITD #### [facility] Routine Lab [address] [place], [place] [address] Cholesterol in HDL [Mass/Vol] 39 mg/dL Low >39 [facility] Reference Lab Comment on above: Performed By: #### C BCDIF, CMP, LIPB, TSH, T4, HBA1C, VITD #### [facility] Routine Lab [address] [place], [place] [address] Cholesterol in LDL [Mass/Vol] 150 mg/dL High <100 [facility] Reference Lab Comment on above: Performed By: #### C BCDIF, CMP, LIPB, TSH, T4, HBA1C, VITD #### [facility] Routine Lab [address] [phone] Cholesterol in VLDL [Mass/Vol] 27 mg/dL Normal <30 [facility] Reference Lab Comment on above: Performed By: #### C BCDIF, CMP, LIPB, TSH, T4, HBA1C, VITD #### [facility] Routine Lab [address] [phone] Cholesterol non HDL [Mass/Vol] 177 mg/dL High <130 [facility] Reference Lab Comment on above: Performed By: #### C BCDIF, CMP, LIPB, TSH, T4, HBA1C, VITD #### [facility] Routine Lab [address] [place] [phone] Fasting Time UN Normal [facility] Reference Lab Comment on above: Performed By: #### C BCDIF, CMP, LIPB, TSH, T4, HBA1C, VITD #### [facility] Routine Lab [address] [place] [phone] LDL:HDL Ratio 3.85 High <2.54 [facility] Reference Lab Comment on above: Performed By: #### C BCDIF, CMP, LIPB, TSH, T4, HBA1C, VITD #### [facility] Routine Lab [address] [place] [phone] TC:HDL Ratio 5.54 High <5.10 [facility] Reference Lab Comment on above: Performed By: #### C BCDIF, CMP, LIPB, TSH, T4, HBA1C, VITD #### [facility] Routine Lab [address] [phone] Triglyceride [Mass/Vol] 137 mg/dL Normal <150 [facility] Reference Lab Comment on above: Performed By: #### C BCDIF, CMP, LIPB, TSH, T4, HBA1C, VITD #### [facility] Routine Lab [address] [phone] T4on 10-13-2019 T4 [Mass/Vol] 6.4 ug/dL Normal 5.5-10.2 [facility] Reference Lab Comment on above: Performed By: #### C BCDIF, CMP, LIPB, TSH, T4, HBA1C, VITD #### [facility] Routine Lab [address] [place], [place] [phone] TSHon 10-13-2019 TSH Qn 0.866 uU/mL Normal 0.270-4.20 0 [facility] Reference Lab Comment on above: Performed By: #### C BCDIF, CMP, LIPB, TSH, T4, HBA1C, VITD #### [facility] Routine Lab [address] [phone] Vitamin D 25 Hydroxyon 10-12 Vitamin D 25 Hydroxy 30.4 ng/mL Low 31.0-80.0 [facility] Reference Lab Comment on above: Performed By: #### C BCDIF, CMP, LIPB, TSH, T4, HBA1C, VITD #### [facility] Routine Lab [address] [id number] PROGRESSon 02-09-2019 PROGRESS HNO ID: [id number] Author: Teri Joseph) ANDREWS Gilmore Service: ? Author Type: Clinical Psychiatric Np Type: Progress Notes Filed: 02/09/2019 2:20 PM Note Text: NAME:Whitney Ruiz DATE: February 09, 2019 [facility]#: [id number] Lower Extremity X-Ray(s): Foot, Bilateral and Wt. Bearing COMPLETED TECH ID SIGN: NEEL KUMAR [facility] XR FOOT 3V AP/LAT/OBL BILon 02-09-2019 XR FOOT 3V AP/LAT/OBL SHANNAN * * *Final Report* * * DATE OF EXAM: Feb 09 2019 2:18PM ZURDO [id number] - XR FOOT 3V AP/LAT/OBL SHANNAN / PROCEDURE REASON: multiple diagnoses * * * * Physician Interpretation * * * * Bilateral feet HISTORY: 73 years old Clinical information: Chronic foot pain, unspecified laterality Chronic foot pain, unspecified laterality TECHNIQUE: Images: XR FOOT 3V AP/LAT/OBL SHANNAN . Comparison: RIGHT foot November 16 1:18 PM and it is located RESULT: Findings: Findings bilaterally: There is narrowing of all the interphalangeal joints. Right : No fractures or dislocations are seen. Moderate narrowing of the second and fifth metatarsal tarsal joints. Large anterior heel spur and smaller posterior heel spur. There is also calcification in the region of the plantar fascia Left : No fractures or dislocations are seen. There is severe narrowing of the second metatarsal and third metatarsal tarsal joints. Moderate narrowing of the first metatarsal phalangeal joint. Moderate size anterior heel spur and calcification in the region of the plantar fascia IMPRESSION: There are marked degenerative changes throughout the foot. There is calcification within the area of the plantar fascia bilaterally. Splitting Machine Feeder: ELEANOR Transcribe Date/Time: Feb 09 2019 2:44P Dictated by : PAVAN SMITH DO This examination was interpreted and the report reviewed and electronically signed by: PAVAN SMITH DO on Feb 09 2019 2:49PM EST [id number] [facility] CYTOLOGYon 01-11-2019 CYTOLOGY Specimen originated from [facility] Specimen #: [id number] Submitting Physician: JONATHAN KIRKPATRICK MD SPECIMEN SUBMITTED A: THYROID, LEFT LOBE, FINE NEEDLE ASPIRATE (THINPREP & SMEARS) FINAL DIAGNOSIS A. THYROID, LEFT LOBE, FINE NEEDLE ASPIRATE (THINPREP & SMEARS) Benign. Specimen consists of bland-appearing follicular cells in a background of abundant colloid, consistent with a benign follicular nodule. Daniela Glover M.D. (Electronic Signature) CLINICAL DATA 4.2 cm L thyroid nod - enlarging. ADEQUACY INTERPRETATION Fine Needle Aspiration 3 passes. Pass 1; Adequate. Pass 2; Not adequate. Pass 3; Limited cellularity Reported to Dr. Kirkpatrick by Mary Mendenhall Each letter in the above intra-procedural assessment refers to a unique site. The specific site is indicated in the final diagnosis portion of the report. Each number in this assessment references a discrete evaluation episode. Intra-procedural assessment performed at [facility], [address] [place] [address] GROSS DESCRIPTION 30 ml clear and colorless CytoLyt with scant particles. 1 ThinPrep, 6 smears (3DQ-3PAP) STAINS A: THYROID, LEFT LOBE, FINE NEEDLE ASPIRATE (THINPREP & SMEARS) SMEARS RECEIVED x 6, THIN PREP Non-Coordinator Of Rehabilitation Services Date of Report: 01/12/2019 Date of Procedure: 01/11/2019 Date of Receipt: 01/12/2019 Submitted by: JONATHAN KIRKPATRICK MD Additional Physician(s): Trae Perry MD Location: [facility] Diagnostic interpretation performed at [facility], [address] [place] [address]. [place] Number: [id number] Normal [facility] US FINE NEEDLE ASPIRATIONon 01-11-2019 US FINE NEEDLE ASPIRATION * * *Final Report* * * DATE OF EXAM: Jan 11 2019 11:58AM [facility] 1249 - US FINE NEEDLE ASPIRATION / PROCEDURE REASON: nodule * * * * Physician Interpretation * * * * Thyroid FNA 01/11/2019 History: Enlarging left thyroid nodule Pre-procedure Sign-in: Safety Checklist Performed: Yes. The team confirmed the correct patient, correct site, site marking, correct procedure, and correct position. Timeout Time: 11:30am Sign-out: Communication performed: Yes The procedure, its risks - including those of procedural sedation and ultrasound use -, benefits, alternatives and personnel to be involved with discussed with the patient. The patient's questions were answered and informed consent was obtained. The patient indicated that they wished to proceed. TECHNIQUE and RESULT: The subcutaneous tissues of the LEFT side of the neck were prepped in a normal sterile fashion. A small area of skin was anesthetized with 1 percent lidocaine. A 25-gauge needle was inserted into a hypoechoic solid and cystic mass within the left lobe of the thyroid gland. 3 passes were made and the aspirate was placed on slides. The remaining aspirate was placed in sterile saline. A preliminary interpretation by the cigar wrapper demonstrated adequate amount of cellular material for diagnosis. A soft copy digital image was saved for the purposes of documentation of ultrasound guidance. IMPRESSION: STATUS POST SUCCESSFUL ULTRASOUND-GUIDED THYROID FINE-NEEDLE ASPIRATION OF A LEFT LOBE THYROID NODULE Splitting Machine Feeder: ELEANOR Transcribe Date/Time: Jan 11 2019 12:17P Dictated by : JONATHAN KIRKPATRICK MD This examination was interpreted and the report reviewed and electronically signed by: JONATHAN KIRKPATRICK MD on Jan 11 2019 12:19PM EST [id number] [facility] US GUIDED NEEDLEon 01-11-201 9 US GUIDED NEEDLE * * *Final Report* * * DATE OF EXAM: Jan 11 2019 11:58AM [facility] 1030 - US GUIDED NEEDLE / PROCEDURE REASON: nodule * * * * Physician Interpretation * * * * Thyroid FNA 01/11/2019 History: Enlarging left thyroid nodule Pre-procedure Sign-in: Safety Checklist Performed: Yes. The team confirmed the correct patient, correct site, site marking, correct procedure, and correct position. Timeout Time: 11:30am Sign-out: Communication performed: Yes The procedure, its risks - including those of procedural sedation and ultrasound use -, benefits, alternatives and personnel to be involved with discussed with the patient. The patient's questions were answered and informed consent was obtained. The patient indicated that they wished to proceed. TECHNIQUE and RESULT: The subcutaneous tissues of the LEFT side of the neck were prepped in a normal sterile fashion. A small area of skin was anesthetized with 1 percent lidocaine. A 25-gauge needle was inserted into a hypoechoic solid and cystic mass within the left lobe of the thyroid gland. 3 passes were made and the aspirate was placed on slides. The remaining aspirate was placed in sterile saline. A preliminary interpretation by the cigar wrapper demonstrated adequate amount of cellular material for diagnosis. A soft copy digital image was saved for the purposes of documentation of ultrasound guidance. IMPRESSION: STATUS POST SUCCESSFUL ULTRASOUND-GUIDED THYROID FINE-NEEDLE ASPIRATION OF A LEFT LOBE THYROID NODULE Splitting Machine Feeder: ELEANOR Transcribe Date/Time: Jan 11 2019 12:17P Dictated by : JONATHAN KIRKPATRICK MD This examination was interpreted and the report reviewed and electronically signed by: JONATHAN KIRKPATRICK MD on Jan 11 2019 12:19PM EST [id number] [facility] HOSPon 12-31-2018 HOSP Patient:Bryan Ruiz MRN: Height:5' 0(1.524 m) Weight:207 lb 3.2 oz (93.985 kg) Outpatient Medications as of 01/11/19: chlorthalidone (HYGROTON) 25 mg tablet NIFEdipine XL (ADALAT CC) 30 mg 24 hr tablet olmesartan (BENICAR) 40 mg tablet carvedilol (COREG) 6.25 mg tablet blood sugar diagnostic (BLOOD GLUCOSE TEST) test strip cholecalciferol, vitamin D3, (VITAMIN D3 ORAL) glipiZIDE (GLUCOTROL XL) 2.5 mg 24 hr tablet CPAP COMPOUNDED PRESCRIPTION COMPOUNDED PRESCRIPTION omeprazole (PRILOSEC) 20 mg capsule ACETAMINOPHEN (TYLENOL ORAL) aspirin, enteric coated (ASPIRIN, ENTERIC COATED) 81 mg EC tablet albuterol HFA 90 mcg/actuation inhaler Admission/Clinic Administered Medications as of 01/11/19: Patient has no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 trapping. No apparent tracheomalacia. No pleural effusion or pneumothorax. MEDIASTINUM and ANASTASIYA, LOWER NECK AND AXILLA: Coarse calcification of the left thyroid lobe is stable. No change in calcified middle mediastinal and right hilar lymphadenopathy lymph nodes indicate granulomatous disease. No new adenopathy. Esophagus is not dilated. HEART and VESSELS: Moderate cardiomegaly. No pericardial effusion. Mitral annulus calcification. Moderate coronary atherosclerosis. Moderate thoracic aortic atherosclerosis without enlarging aneurysm. UPPER ABDOMEN: Numerous calcified granulomas of the liver and spleen. The gallbladder is absent CHEST WALL and OSSEOUS STRUCTURES: No suspicious osseous lesions. Multilevel degenerative changes of the thoracic spine. IMPRESSION: Slight progression of basal predominant pulmonary fibrosis and traction bronchiectasis compared to 8 months ago. Dictated by: Carroll Diehl Electronically Signed by: Carroll Diehl 03/09/2017 12:47 PM Normal [facility] CBC W/DIFFon 01-12-2017 BASO ABS 0.0 K/uL Normal 0.0-0.2 [facility] Comment on above: Performed By: #### L 200.18572 ####Test performed at: [address] [address] Basophils/100 WBC Auto (Bld) 0.5 % Normal [facility] Comment on above: Performed By: #### L 200.62161 ####Test performed at: [address] [address] EOS ABS 0.1 K/uL Normal 0.0-0.5 [facility] Comment on above: Performed By: #### L 200.58991 ####Test performed at: [address] [address] Eosinophils/100 leukocytes 1.9 % Normal [facility] Comment on above: Performed By: #### L 200.67384 ####Test performed at: [address] [address] Erythrocyte distribution width Auto Ratio (RBC) 14.1 % Normal 11.5-14.5 [facility] Comment on above: Performed By: #### L 200.70969 ####Test performed at: [address] [address] Erythrocytes (RBC) 0.000 10*6/uL Normal 0-0.012 [facility] Comment on above: Performed By: #### L 200.47401 ####Test performed at: [address] [address] Erythrocytes (RBC) 4.63 10*6/uL Normal 3.5-5.5 [facility] Comment on above: Performed By: #### L 200.13485 ####Test performed at: [address] [address] Hematocrit (HCT) 40.6 % Normal 36.0-48.0 [facility] Comment on above: Performed By: #### L 200.56854 ####Test performed at: [address] [address] Hemoglobin mass conc (Bld) 13.4 g/dL Normal 12.0-15.0 [facility] Comment on above: Performed By: #### L 200.29146 ####Test performed at: [place] [address] IG % 0.3 % Normal [facility] Comment on above: Performed By: #### L 200.76443 ####Test performed at: [address] [place] [address] IG ABS 0.02 K/uL Normal 0-0.05 [facility] Comment on above: Performed By: #### L 200.28190 ####Test performed at: [address] [place] [address] Lymphocytes 1.6 10*3/uL Normal 1.2-3.5 [facility] Comment on above: Performed By: #### L 200.35824 ####Test performed at: [address] [place] [address] Lymphocytes/100 leukocytes 22.3 % Normal [facility] Comment on above: Performed By: #### L 200.19493 ####Test performed at: [place] [address] MCH 28.9 pg Normal 25.4-34.6 [facility] Comment on above: Performed By: #### L 200.74741 ####Test performed at: [place] [address] MCHC mass conc (RBC) 33.0 g/dL Normal 31.5-36.5 [facility] Comment on above: Performed By: #### L 200.85093 ####Test performed at: [place] [address] MCV 87.7 fL Normal 79.0-98.0 [facility] Comment on above: Performed By: #### L 200.42733 ####Test performed at: [address] [address] MONO ABS 0.9 K/uL Normal 0.0-1.0 [facility] Comment on above: Performed By: #### L 200.17293 ####Test performed at: [address] [address] Monocytes/100 leukocytes 11.8 % Normal [facility] Comment on above: Performed By: #### L 200.81097 ####Test performed at: [address] [address] Neutrophils 4.6 10*3/uL Normal 1.4-6.6 [facility] Comment on above: Performed By: #### L 200.08296 ####Test performed at: [address] [address] Neutrophils/100 WBC Auto (Bld) 63.2 % Normal [facility] Comment on above: Performed By: #### L 200.96278 ####Test performed at: [address] [address] NRBC % 0.0 /100 WBC Normal 0-0.2 [facility] Comment on above: Performed By: #### L 200.43060 ####Test performed at: [address] [address] Platelet mean volume (PMV) 9.0 fL Normal 8.7-12.4 [facility] Comment on above: Performed By: #### L 200.96643 ####Test performed at: [address] [address] Platelets 298 10*3/uL Normal 140-440 [facility] Comment on above: Performed By: #### L 200.92029 ####Test performed at: [address] [address] WBC (Leukocytes) 7.3 10*3/uL Normal 3.9-11.0 [facility] Comment on above: Performed By: #### L 200.06759 ####Test performed at: [address] [address] COMP META PANELon 01-12-2017 Alanine aminotransferase (ALT) 21 U/L Normal 13-61 [facility] Comment on above: Performed By: #### L 500.45002, L500.78051, L500.42606, L500.80534 ####Test performed at: [address] [address] Albumin 3.9 g/dL Normal 3.4-5.0 [facility] Comment on above: Performed By: #### L 500.14840, L500.85209, L500.75818, L500.27502 ####Test performed at: [place] [address] ALK PHOS TOTAL 71 U/L Normal 45-117 [facility] Comment on above: Performed By: #### L 500.66411, L500.06227, L500.81631, L500.29666 ####Test performed at: [address] [address] Aspartate aminotransferase (AST) 15 U/L Normal 15-37 [facility] Comment on above: Performed By: #### L 500.06912, L500.72499, L500.43044, L500.24676 ####Test performed at: [address] [address] BILI TOTAL 0.3 mg/dL Normal 0.2-1.0 [facility] Comment on above: Performed By: #### L 500.04663, L500.63466, L500.56990, L500.64993 ####Test performed at: [place] [address] Calcium 9.4 mg/dL Normal 8.5-10.1 [facility] Comment on above: Performed By: #### L 500.42595, L500.23137, L500.29601, L500.13062 ####Test performed at: [place] [address] Chloride 107 mmol/L Normal 98-107 [facility] Comment on above: Performed By: #### L 500.92445, L500.79455, L500.08381, L500.70185 ####Test performed at: [place] [address] CO2 27 mmol/L Normal 21-32 [facility] Comment on above: Performed By: #### L 500.18566, L500.58904, L500.95004, L500.25450 ####Test performed at: [place] [address] Creatinine 0.708 mg/dL Normal 0.550-1.02 0 [facility] Comment on above: Performed By: #### L 500.03723, L500.10023, L500.14322, L500.70551 ####Test performed at: [place] [address] Glucose mass conc 135 mg/dL High 74-106 [facility] Comment on above: Performed By: #### L 500.99904, L500.67564, L500.92623, L500.31816 ####Test performed at: [place] [address] Potassium molar conc 4.1 mmol/L Normal 3.5-5.1 [facility] Comment on above: Performed By: #### L 500.69322, L500.22264, L500.04758, L500.52412 ####Test performed at: [address] [place] [address] Protein 6.8 g/dL Normal 6.4-8.2 [facility] Comment on above: Performed By: #### L 500.46503, L500.31082, L500.32836, L500.08783 ####Test performed at: [place] [address] Sodium 142 mmol/L Normal 136-145 [facility] Comment on above: Performed By: #### L 500.75870, L500.37696, L500.03685, L500.64847 ####Test performed at: [place] [address] Urea nitrogen 21 mg/dL High 7-18 [facility] Comment on above: Performed By: #### L 500.63128, L500.17273, L500.00491, L500.22582 ####Test performed at: [place] [address] GFR ESTIMATEon 01-12-2017 IF AMER > 60 Normal > 60 [facility] Comment on above: Result Comment: eGFR (Estimated GFR) Units of measure:mL/min/1.73 meters sq.*CALCULATION REVISED 01/16/2015;IDMS-traceable MDRD equationeGFR is derived from the reexpressed MDRD Study equationusing the following parameters: serum creatinine, age,gender and race. An eGFR<60 mL/min/1.73m2 for >3 monthsis consistent with chronic kidney disease. Refer to KDOQIguidelines for clinical interpretation. Performed By: #### L 500.87168, L500.50602, L500.12473, L500.11052 ####Test performed at: [place] [address] IF non-AFR AMER > 60 Normal > 60 [facility] Comment on above: Performed By: #### L 500.20413, L500.40351, L500.85180, L500.30189 ####Test performed at: [place] [address] [address] [address] MGon 01-12-2017 Magnesium 2.3 mg/dL Normal 1.6-2.6 [facility] Comment on above: Performed By: #### L 500.92435, L500.30043, L500.57698, L500.50272 ####Test performed at: [address] [address] TSH ULTRA SENSon 01-12-2017 Thyroid stimulating hormone (TSH) 0.308 uIU/mL Low 0.358-3.74 [facility] Comment on above: Performed By: #### L 500.54752, L500.90121, L500.80379, L500.39205 ####Test performed at: [address] [address] Vital Signs Date Time Vital Sign Value Performing Clinician Facility 12-05-2024 14:55-0400 Diastolic blood pressure 80 mm[Hg] Franck Lambert MD Work Phone: [facility] 12-05-2024 14:55-0400 Heart rate 75 /min Franck Lambert MD Work Phone: [facility] 12-05-2024 14:55-0400 Systolic blood pressure 140 mm[Hg] Franck Lambert MD Work Phone: [facility] 11-07-2024 14:10-0400 Body height 152.[address] Kristy Brower MD Work Phone: [facility] 11-07-2024 14:10-0400 Body mass index (BMI) [Ratio] 36.3 kg/m2 Dr. Kristy Brower MD Work Phone: [facility] 11-07-2024 14:10-0400 Body weight 84.[address] Kristy Brower MD Work Phone: [facility] 11-07-2024 14:10-0400 Diastolic blood pressure 75 mm[Hg] Dr. Kristy Brower MD Work Phone: [facility] 11-07-2024 14:10-0400 Heart rate 69 /min Dr. Kristy Brower MD Work Phone: [facility] 11-07-2024 14:10-0400 Systolic blood pressure 143 mm[Hg] Dr. Kristy Brower MD Work Phone: [facility] 09-21-2024 13:15-0400 Body height 152.4 cm Kristy Brower MD Work Phone: [facility] 09-21-2024 13:15-0400 Body mass index (BMI) [Ratio] 35.15 kg/m2 Kristy Brower MD Work Phone: [facility] 09-21-2024 13:15-0400 Body weight 81.65 kg Kristy Brower MD Work Phone: [facility] 09-21-2024 13:15-0400 Diastolic blood pressure 71 mm[Hg] Kristy Brower MD Work Phone: [facility] 09-21-2024 13:15-0400 Heart rate 62 /min Kristy Brower MD Work Phone: [facility] 09-21-2024 13:15-0400 Systolic blood pressure 127 mm[Hg] Kristy Brower MD Work Phone: [facility] 09-12-2024 13:42-0400 Body height 152.4 cm Johanna Patino MD Work Phone: [facility] 09-12-2024 13:42-0400 Body mass index (BMI) [Ratio] 35.35 kg/m2 Johanna Patino MD Work Phone: [facility] 09-12-2024 13:42-0400 Body temperature 97.2 [degF] Johanna Patino MD Work Phone: [facility] 09-12-2024 13:42-0400 Body weight 82.1 kg Johanna Patino MD Work Phone: [facility] 09-12-2024 13:42-0400 Diastolic blood pressure 80 mm[Hg] Johanna Patino MD Work Phone: [facility] 09-12-2024 13:42-0400 Heart rate 65 /min Johanna Patino MD Work Phone: [facility] 09-12-2024 13:42-0400 Respiratory rate 16 /min Johanna Patino MD Work Phone: [facility] 09-12-2024 13:42-0400 SaO2% (BldA) [Mass fraction] 97 % Johanna Patino MD Work Phone: [facility] 09-12-2024 13:42-0400 Systolic blood pressure 137 mm[Hg] Johanna Patino MD Work Phone: [facility] 08-31-2024 12:50-0400 Body height 152.4 cm Flores Alonzo MD Work Phone: [facility] 08-31-2024 12:50-0400 Body mass index (BMI) [Ratio] 35.74 kg/m2 Flores Alonzo MD Work Phone: [facility] 08-31-2024 12:50-0400 Body weight 83.01 kg Flores Alonzo MD Work Phone: [facility] 08-31-2024 12:50-0400 Diastolic blood pressure 69 mm[Hg] Flores Alonzo MD Work Phone: [facility] 08-31-2024 12:50-0400 Heart rate 62 /min Flores Alonzo MD Work Phone: [facility] 08-31-2024 12:50-0400 Respiratory rate 18 /min Flores Alonzo MD Work Phone: [facility] 08-31-2024 12:50-0400 SaO2% (BldA) [Mass fraction] 96 % Flores Alonzo MD Work Phone: [facility] 08-31-2024 12:50-0400 Systolic blood pressure 124 mm[Hg] Flores Alonzo MD Work Phone: [facility] 08-29-2024 11:25-0400 Diastolic blood pressure 90 mm[Hg] Kojo Otoniel DIRECTOR [employer] Work Phone: [facility] 08-29-2024 11:25-0400 Systolic blood pressure 166 mm[Hg] Kojo Otoniel DIRECTOR [employer]CUIT TE[employer] Work Phone: [facility] 08-29-2024 11:23-0400 Body mass index (BMI) [Ratio] 35.99 kg/m2 Kojo Otoniel DIRECTOR [employer] TE[employer] Work Phone: [facility] 08-29-2024 11:23-0400 Body weight 83.6 kg Kojo Otoniel DIRECTOR [employer] TE[employer] Work Phone: [facility] 08-29-2024 11:23-0400 Heart rate 70 /min Kojo Otoniel DIRECTOR [employer] TE[employer] Work Phone: [facility] 08-29-2024 11:23-0400 SaO2% (BldA) [Mass fraction] 98 % Kojo Otoniel DIRECTOR [employer] TESTER Work Phone: [facility] 08-04-2024 13:24-0400 Diastolic blood pressure 80 mm[Hg] Franck Lambert MD Work Phone: [facility] 08-04-2024 13:24-0400 Systolic blood pressure 124 mm[Hg] Franck Lambert MD Work Phone: [facility] 08-04-2024 13:07-0400 Body height 152.4 cm Franck Lambert MD Work Phone: [facility] 08-04-2024 13:07-0400 Body mass index (BMI) [Ratio] 35.74 kg/m2 Franck Lambert MD Work Phone: [facility] 08-04-2024 13:07-0400 Body weight 83.01 kg Franck Lambert MD Work Phone: [facility] 07-06-2024 15:49-0400 Diastolic blood pressure 90 mm[Hg] Kojo Otoniel DIRECTOR [employer] TE[employer] Work Phone: [facility] 07-06-2024 15:49-0400 Systolic blood pressure 150 mm[Hg] Kojo Otoniel DIRECTOR [employer] TESTER Work Phone: [facility] 07-06-2024 15:47-0400 Body mass index (BMI) [Ratio] 35.52 kg/m2 Kojo Otoniel DIRECTOR [employer] TE[employer] Work Phone: [facility] 07-06-2024 15:47-0400 Body temperature 99.61 [degF] Kojo Otoniel DIRECTOR [employer] TE[employer] Work Phone: [facility] 07-06-2024 15:47-0400 Body weight 82.5 kg Kojo Otoniel DIRECTOR [employer] TE[employer] Work Phone: [facility] 07-06-2024 15:47-0400 Heart rate 64 /min Kojo Otoniel DIRECTOR [employer] TE[employer] Work Phone: [facility] 07-06-2024 15:47-0400 SaO2% (BldA) [Mass fraction] 96 % Kojo Otoniel DIRECTOR [employer] TESTER Work Phone: [facility] 06-03-2024 09:31-0500 Body mass index (BMI) [Ratio] 34.96 kg/m2 Anastasia SweeneySarah DIRECTOR [employer] SAL[employer]CUIT TESTER Work Phone: [facility] 06-03-2024 09:31-0500 Body weight 81.19 kg Anastasia SweeneySarah DIRECTOR [employer] TESTER Work Phone: [facility] 06-03-2024 09:31-0500 Diastolic blood pressure 80 mm[Hg] Anastasia SweeneySarah DIRECTOR [employer] TESTER Work Phone: [facility] 06-03-2024 09:31-0500 Heart rate 60 /min Anastasiatamiko Smith DIRECTOR [employer]CUIT TESTER Work Phone: [facility] 06-03-2024 09:31-0500 Respiratory rate 14 /min Anastasia Smith DIRECTOR [employer]CUIT TESTER Work Phone: [facility] 06-03-2024 09:31-0500 SaO2% (BldA) [Mass fraction] 98 % Anastasia Smith DIRECTOR [employer] TESTER Work Phone: [facility] 06-03-2024 09:31-0500 Systolic blood pressure 126 mm[Hg] Anastasia Smith DIRECTOR [employer] TESTER Work Phone: [facility] 05-23-2024 16:28-0500 Body mass index (BMI) [Ratio] 35.04 kg/m2 Kristy Brower MD Work Phone: [facility] 05-23-2024 16:28-0500 Body weight 81.38 kg Kristy Brower MD Work Phone: [facility] 05-23-2024 16:28-0500 Diastolic blood pressure 84 mm[Hg] Kristy Brower MD Work Phone: [facility] 05-23-2024 16:28-0500 Heart rate 57 /min Kristy Brower MD Work Phone: [facility] 05-23-2024 16:28-0500 SaO2% (BldA) [Mass fraction] 99 % Kristy Brower MD Work Phone: [facility] 05-23-2024 16:28-0500 Systolic blood pressure 120 mm[Hg] Kristy Brower MD Work Phone: [facility] 05-05-2024 15:21-0500 Body height 152.4 cm Franck Lambert MD Work Phone: [facility] 05-05-2024 15:21-0500 Body mass index (BMI) [Ratio] 35.31 kg/m2 Franck Lambert MD Work Phone: [facility] 05-05-2024 15:21-0500 Body weight 82.01 kg Franck Lambert MD Work Phone: [facility] 05-05-2024 15:21-0500 Diastolic blood pressure 74 mm[Hg] Franck Lambert MD Work Phone: [facility] 05-05-2024 15:21-0500 Heart rate 65 /min Franck Lambert MD Work Phone: [facility] 05-05-2024 15:21-0500 SaO2% (BldA) [Mass fraction] 97 % Franck Lambert MD Work Phone: [facility] 05-05-2024 15:21-0500 Systolic blood pressure 118 mm[Hg] Franck Lambert MD Work Phone: [facility] 04-01-2024 11:58-0500 Body height 152.4 cm Franck Lambert MD Work Phone: [facility] 04-01-2024 11:58-0500 Body mass index (BMI) [Ratio] 36.72 kg/m2 Franck Lambert MD Work Phone: [facility] 04-01-2024 11:58-0500 Body weight 85.28 kg Franck Lambert MD Work Phone: [facility] 04-01-2024 11:58-0500 Diastolic blood pressure 96 mm[Hg] Franck Lambert MD Work Phone: [facility] 04-01-2024 11:58-0500 Heart rate 64 /min Franck Lambert MD Work Phone: [facility] 04-01-2024 11:58-0500 Systolic blood pressure 158 mm[Hg] Franck Lambert MD Work Phone: [facility] 03-24-2024 14:33-0500 Diastolic blood pressure 82 mm[Hg] Kristy Brower MD Work Phone: [facility] 03-24-2024 14:33-0500 Systolic blood pressure 140 mm[Hg] Kristy Brower MD Work Phone: [facility] 03-24-2024 13:10-0500 Body mass index (BMI) [Ratio] 36.25 kg/m2 Kristy Brower MD Work Phone: [facility] 03-24-2024 13:10-0500 Body temperature 98.49 [degF] Kristy Brower MD Work Phone: [facility] 03-24-2024 13:10-0500 Body weight 84.19 kg Kristy Brower MD Work Phone: [facility] 03-24-2024 13:10-0500 Heart rate 72 /min Kristy Brower MD Work Phone: [facility] 03-24-2024 13:10-0500 Respiratory rate 14 /min Kristy Brower MD Work Phone: [facility] 03-17-2024 08:52-0500 Diastolic blood pressure 78 mm[Hg] Rocael Correa MD Work Phone: [facility] 03-17-2024 08:52-0500 Systolic blood pressure 167 mm[Hg] Rocael Correa MD Work Phone: [facility] 03-17-2024 07:00-0500 Body temperature 97.59 [degF] Rocael Correa MD Work Phone: [facility] 03-17-2024 07:00-0500 Heart rate 63 /min Rocael Correa MD Work Phone: [facility] 03-17-2024 07:00-0500 Respiratory rate 18 /min Rocael Correa MD Work Phone: [facility] 03-17-2024 07:00-0500 SaO2% (BldA) [Mass fraction] 97 % Rocael Correa MD Work Phone: [facility] 03-15-2024 17:16-0500 Body height 152.4 cm Rocael Correa MD Work Phone: [facility] 03-15-2024 17:16-0500 Body mass index (BMI) [Ratio] 37.13 kg/m2 Rocael Correa MD Work Phone: [facility] 03-15-2024 17:16-0500 Body weight 86.23 kg Rocael Correa MD Work Phone: [facility] 03-14-2024 10:39-0500 Body height 152.4 cm Johanna Patino MD Work Phone: [facility] 03-14-2024 10:39-0500 Body mass index (BMI) [Ratio] 36.33 kg/m2 Johanna Patino MD Work Phone: [facility] 03-14-2024 10:39-0500 Body temperature 98.29 [degF] Johanna Patino MD Work Phone: [facility] 03-14-2024 10:39-0500 Body weight 84.37 kg Johanna Patino MD Work Phone: [facility] 03-14-2024 10:39-0500 Diastolic blood pressure 83 mm[Hg] Johanna Patino MD Work Phone: [facility] 03-14-2024 10:39-0500 Heart rate 62 /min Johanna Patino MD Work Phone: [facility] 03-14-2024 10:39-0500 Respiratory rate 18 /min Johanna Patino MD Work Phone: [facility] 03-14-2024 10:39-0500 SaO2% (BldA) [Mass fraction] 96 % Johanna Patino MD Work Phone: [facility] 03-14-2024 10:39-0500 Systolic blood pressure 152 mm[Hg] Johanna Patino MD Work Phone: [facility] 03-08-2024 13:25-0500 Body height 152.4 cm Jackelin Lares PA-C Work Phone: [facility] 03-08-2024 13:25-0500 Body mass index (BMI) [Ratio] 36.6 kg/m2 Jackelin Bogner PA-C Work Phone: [facility] 03-08-2024 13:25-0500 Body temperature 98.49 [degF] Jackelin Bogner PA-C Work Phone: [facility] 03-08-2024 13:25-0500 Body weight 85 kg Jackelin Bogner PA-C Work Phone: [facility] 03-08-2024 13:25-0500 Diastolic blood pressure 60 mm[Hg] Jackelin Bogner PA-C Work Phone: [facility] 03-08-2024 13:25-0500 Heart rate 55 /min Jackelin Bogner PA-C Work Phone: [facility] 03-08-2024 13:25-0500 Respiratory rate 16 /min Jackelin Bogner PA-C Work Phone: [facility] 03-08-2024 13:25-0500 SaO2% (BldA) [Mass fraction] 98 % Jackelin Bogner PA-C Work Phone: [facility] 03-08-2024 13:25-0500 Systolic blood pressure 134 mm[Hg] Jackelin Bogner PA-C Work Phone: [facility] 02-24-2024 14:49-0500 Diastolic blood pressure 82 mm[Hg] Kristy Brower MD Work Phone: [facility] 02-24-2024 14:49-0500 Systolic blood pressure 130 mm[Hg] Kristy Brower MD Work Phone: [facility] 02-24-2024 13:48-0500 Body mass index (BMI) [Ratio] 37.15 kg/m2 Kristy Brower MD Work Phone: [facility] 02-24-2024 13:48-0500 Body temperature 98.8 [degF] Kristy Brower MD Work Phone: [facility] 02-24-2024 13:48-0500 Body weight 86.4 kg Kristy Brower MD Work Phone: [facility] 02-24-2024 13:48-0500 Heart rate 74 /min Kristy Brower MD Work Phone: [facility] 02-24-2024 13:48-0500 Respiratory rate 16 /min Kristy Brower MD Work Phone: [facility] 02-24-2024 13:48-0500 SaO2% (BldA) [Mass fraction] 97 % Kristy Brower MD Work Phone: [facility] 02-12-2024 14:24-0500 Diastolic blood pressure 94 mm[Hg] Kojo Otoniel DIRECTOR [employer] Work Phone: [facility] 02-12-2024 14:24-0500 Systolic blood pressure 170 mm[Hg] Kojo Otoniel DIRECTOR [employer] TE[employer] Work Phone: [facility] 02-12-2024 14:22-0500 Body mass index (BMI) [Ratio] 36.36 kg/m2 Kojo Otoniel DIRECTOR [employer] Work Phone: [facility] 02-12-2024 14:22-0500 Body temperature 99.19 [degF] Kojo Otoniel DIRECTOR [employer] TE[employer] Work Phone: [facility] 02-12-2024 14:22-0500 Body weight 84.55 kg Kojo Otoniel DIRECTOR [employer] TE[employer] Work Phone: [facility] 02-12-2024 14:22-0500 Heart rate 66 /min Kojo Otoniel DIRECTOR [employer] TE[employer] Work Phone: [facility] 02-12-2024 14:22-0500 SaO2% (BldA) [Mass fraction] 97 % Kojo Otoniel DIRECTOR [employer] Work Phone: [facility] 01-14-2024 16:46-0400 Diastolic blood pressure 84 mm[Hg] Kristy Brower MD Work Phone: [facility] 01-14-2024 16:46-0400 Heart rate 52 /min Kristy Brower MD Work Phone: [facility] 01-14-2024 16:46-0400 Systolic blood pressure 160 mm[Hg] Kristy Brower MD Work Phone: [facility] 01-14-2024 16:45-0400 Body mass index (BMI) [Ratio] 36.76 kg/m2 Kristy Brower MD Work Phone: [facility] 01-14-2024 16:45-0400 Body weight 85.5 kg Kristy Brower MD Work Phone: [facility] 01-14-2024 16:45-0400 Respiratory rate 16 /min Kristy Brower MD Work Phone: [facility] 01-11-2024 14:30-0400 Diastolic blood pressure 53 mm[Hg] Kristy Brower MD Work Phone: [facility] 01-11-2024 14:30-0400 Heart rate 56 /min Kristy Brower MD Work Phone: [facility] 01-11-2024 14:30-0400 Respiratory rate 17 /min Kristy Brower MD Work Phone: [facility] 01-11-2024 14:30-0400 SaO2% (BldA) [Mass fraction] 95 % Kristy Brower MD Work Phone: [facility] 01-11-2024 14:30-0400 Systolic blood pressure 128 mm[Hg] Kristy Brower MD Work Phone: [facility] 01-11-2024 11:30-0400 Body height 152.4 cm Kristy Brower MD Work Phone: [facility] 01-11-2024 11:30-0400 Body mass index (BMI) [Ratio] 36.91 kg/m2 Kristy Brower MD Work Phone: [facility] 01-11-2024 11:30-0400 Body temperature 98.6 [degF] Kristy Brower MD Work Phone: [facility] 01-11-2024 11:30-0400 Body weight 85.73 kg Kristy Brower MD Work Phone: [facility] 12-25-2023 14:23-0400 Diastolic blood pressure 92 mm[Hg] Kojo Otoniel DIRECTOR [employer] TE[employer] Work Phone: [facility] 12-25-2023 14:23-0400 Systolic blood pressure 166 mm[Hg] Kojo Otoniel DIRECTOR [employer] TE[employer] Work Phone: [facility] 12-25-2023 14:21-0400 Body mass index (BMI) [Ratio] 36.76 kg/m2 Kojo Otoniel DIRECTOR [employer] TE[employer] Work Phone: [facility] 12-25-2023 14:21-0400 Body weight 85.5 kg Kojo Otoniel DIRECTOR [employer] TE[employer] Work Phone: [facility] 12-25-2023 14:21-0400 Heart rate 57 /min Kojo Otoniel DIRECTOR [employer] TE[employer] Work Phone: [facility] 12-25-2023 14:21-0400 SaO2% (BldA) [Mass fraction] 98 % Kojo Otoniel DIRECTOR [employer] TE[employer] Work Phone: [facility] 11-11-2023 14:05-0400 Body mass index (BMI) [Ratio] 36.94 kg/m2 Kristy Brower MD Work Phone: [facility] 11-11-2023 14:05-0400 Body temperature 98.2 [degF] Kristy Brower MD Work Phone: [facility] 11-11-2023 14:05-0400 Body weight 85.9 kg Kristy Brower MD Work Phone: [facility] 11-11-2023 14:05-0400 Diastolic blood pressure 88 mm[Hg] Kristy Brower MD Work Phone: [facility] 11-11-2023 14:05-0400 Heart rate 52 /min Kristy Brower MD Work Phone: [facility] 11-11-2023 14:05-0400 Respiratory rate 16 /min Kristy Brower MD Work Phone: [facility] 11-11-2023 14:05-0400 SaO2% (BldA) [Mass fraction] 97 % Kristy Brower MD Work Phone: [facility] 11-11-2023 14:05-0400 Systolic blood pressure 122 mm[Hg] Kristy Brower MD Work Phone: [facility] 10-12-2023 10:27-0400 Body height 152.4 cm Johanna Patino MD Work Phone: [facility] 10-12-2023 10:27-0400 Body mass index (BMI) [Ratio] 35.94 kg/m2 Johanna Patino MD Work Phone: [facility] 10-12-2023 10:27-0400 Body weight 83.46 kg Johanna Patino MD Work Phone: [facility] 10-12-2023 10:27-0400 Diastolic blood pressure 87 mm[Hg] Johanna Patino MD Work Phone: [facility] 10-12-2023 10:27-0400 Heart rate 52 /min Johanna Patino MD Work Phone: [facility] 10-12-2023 10:27-0400 Respiratory rate 16 /min Johanna Patino MD Work Phone: [facility] 10-12-2023 10:27-0400 SaO2% (BldA) [Mass fraction] 97 % Johanna Patino MD Work Phone: [facility] Comment on above: 10-12-2023 10:27-0400 Systolic blood pressure 142 mm[Hg] Johanna Patino MD Work Phone: [facility] 09-30-2023 18:57-0400 Diastolic blood pressure 88 mm[Hg] Kristy Brower MD Work Phone: [facility] 09-30-2023 18:57-0400 Systolic blood pressure 138 mm[Hg] Kristy Brower MD Work Phone: [facility] 09-30-2023 17:04-0400 Body height 152.5 cm Kristy Brower MD Work Phone: [facility] 09-30-2023 17:04-0400 Body mass index (BMI) [Ratio] 36.36 kg/m2 Kristy Brower MD Work Phone: [facility] 09-30-2023 17:04-0400 Body temperature 97.59 [degF] Kristy Brower MD Work Phone: [facility] 09-30-2023 17:04-0400 Body weight 84.55 kg Kristy Brower MD Work Phone: [facility] 09-30-2023 17:04-0400 Heart rate 56 /min Kristy Brower MD Work Phone: [facility] 09-30-2023 17:04-0400 Respiratory rate 18 /min Kristy Brower MD Work Phone: [facility] 09-30-2023 17:04-0400 SaO2% (BldA) [Mass fraction] 97 % Kristy Brower MD Work Phone: [facility] 09-19-2023 15:35-0400 Body mass index (BMI) [Ratio] 38.52 kg/m2 Miko Mcneal APRN.CIRCUIT TESTER Work Phone: [facility] 09-19-2023 15:35-0400 Body temperature 97.81 [degF] Miko Mcneal APRN.CIRCUIT TESTER Work Phone: [facility] 09-19-2023 15:35-0400 Body weight 86.5 kg Miko Mcneal APRN.CIRCUIT TESTER Work Phone: [facility] 09-19-2023 15:35-0400 Diastolic blood pressure 76 mm[Hg] Miko Mcneal DIRECTOR [employer] TE[employer] Work Phone: [facility] 09-19-2023 15:35-0400 Heart rate 58 /min Miko Mcneal DIRECTOR [employer] TE[employer] Work Phone: [facility] 09-19-2023 15:35-0400 Respiratory rate 18 /min Miko Mcneal DIRECTOR [employer] TE[employer] Work Phone: [facility] 09-19-2023 15:35-0400 SaO2% (BldA) [Mass fraction] 96 % Miko Mcneal DIRECTOR [employer] TE[employer] Work Phone: [facility] 09-19-2023 15:35-0400 Systolic blood pressure 122 mm[Hg] Miko Mcneal DIRECTOR [employer] TE[employer] Work Phone: [facility] 08-20-2023 13:48-0400 Body mass index (BMI) [Ratio] 35.94 kg/m2 Franck Lambert MD Work Phone: [facility] 08-20-2023 13:48-0400 Body weight 83.46 kg Franck Lambert MD Work Phone: [facility] 08-20-2023 13:48-0400 Diastolic blood pressure 70 mm[Hg] Franck Lambert MD Work Phone: [facility] 08-20-2023 13:48-0400 Heart rate 56 /min Franck Lambert MD Work Phone: [facility] 08-20-2023 13:48-0400 Systolic blood pressure 150 mm[Hg] Franck Lambert MD Work Phone: [facility] 07-31-2023 14:18-0400 Diastolic blood pressure 100 mm[Hg] Kojo Frederick DIRECTOR [employer] TE[employer] Work Phone: [facility] 07-31-2023 14:18-0400 Systolic blood pressure 164 mm[Hg] Kojo Frederick DIRECTOR [employer] TE[employer] Work Phone: [facility] 07-31-2023 14:16-0400 Body mass index (BMI) [Ratio] 37.77 kg/m2 Kojo Otoniel DIRECTOR [employer] TE[employer] Work Phone: [facility] 07-31-2023 14:16-0400 Body weight 84.82 kg Kojo Otoniel DIRECTOR [employer] TE[employer] Work Phone: [facility] 07-31-2023 14:16-0400 Heart rate 65 /min Kojo Otoniel DIRECTOR [employer] TE[employer] Work Phone: [facility] 07-31-2023 14:16-0400 SaO2% (BldA) [Mass fraction] 96 % Kojo Otoniel DIRECTOR [employer] TE[employer] Work Phone: [facility] 07-23-2023 17:05-0400 Body height 152.4 cm Kristy Brower MD Work Phone: [facility] 07-23-2023 17:05-0400 Body mass index (BMI) [Ratio] 35.94 kg/m2 Kristy Brower MD Work Phone: [facility] 07-23-2023 17:05-0400 Body temperature 98.01 [degF] Kristy Brower MD Work Phone: [facility] 07-23-2023 17:05-0400 Body weight 83.46 kg Kristy Brower MD Work Phone: [facility] 07-23-2023 17:05-0400 Diastolic blood pressure 60 mm[Hg] Kristy Brower MD Work Phone: [facility] 07-23-2023 17:05-0400 Heart rate 59 /min Kristy Brower MD Work Phone: [facility] 07-23-2023 17:05-0400 Respiratory rate 18 /min Kristy Brower MD Work Phone: [facility] 07-23-2023 17:05-0400 SaO2% (BldA) [Mass fraction] 97 % Kristy Brower MD Work Phone: [facility] 07-23-2023 17:05-0400 Systolic blood pressure 91 mm[Hg] Kristy Brower MD Work Phone: [facility] 05-05-2023 11:10-0500 Body weight 84.64 kg Kojo Otoniel DIRECTOR [employer] TE[employer] Work Phone: [facility] 05-05-2023 11:10-0500 Diastolic blood pressure 91 mm[Hg] Kojo Otoniel DIRECTOR [employer] TE[employer] Work Phone: [facility] 05-05-2023 11:10-0500 Heart rate 59 /min Kojo Otoniel DIRECTOR [employer] TE[employer] Work Phone: [facility] 05-05-2023 11:10-0500 Respiratory rate 16 /min Kojo Otoniel DIRECTOR [employer] TE[employer] Work Phone: [facility] 05-05-2023 11:10-0500 SaO2% (BldA) [Mass fraction] 97 % Kojo Otoniel DIRECTOR [employer] TE[employer] Work Phone: [facility] 05-05-2023 11:10-0500 Systolic blood pressure 154 mm[Hg] Kojo Otoniel DIRECTOR [employer] TE[employer] Work Phone: [facility] 03-13-2023 11:09-0500 Body height 152.4 cm Johanna Patino MD Work Phone: [facility] 03-13-2023 11:09-0500 Body mass index (BMI) [Ratio] 36.72 kg/m2 Johanna Patino MD Work Phone: [facility] 03-13-2023 11:09-0500 Body weight 85.28 kg Johanna Patino MD Work Phone: [facility] 03-13-2023 11:09-0500 Diastolic blood pressure 76 mm[Hg] Johanna Patino MD Work Phone: [facility] 03-13-2023 11:09-0500 Heart rate 55 /min Johanna Patino MD Work Phone: [facility] 03-13-2023 11:09-0500 Respiratory rate 16 /min Johanna Patino MD Work Phone: [facility] 03-13-2023 11:09-0500 SaO2% (BldA) [Mass fraction] 96 % Johanna Patino MD Work Phone: [facility] Comment on above: RA 03-13-2023 11:09-0500 Systolic blood pressure 146 mm[Hg] Johanna Patino MD Work Phone: [facility] 02-16-2023 12:22-0500 Body height 152.4 cm Franck Lambert MD Work Phone: [facility] 02-16-2023 12:22-0500 Body mass index (BMI) [Ratio] 36.72 kg/m2 Franck Lambert MD Work Phone: [facility] 02-16-2023 12:22-0500 Body weight 85.28 kg Franck Lambert MD Work Phone: [facility] 02-16-2023 12:22-0500 Diastolic blood pressure 92 mm[Hg] Franck Lambert MD Work Phone: [facility] 02-16-2023 12:22-0500 Heart rate 59 /min Franck Lambert MD Work Phone: [facility] 02-16-2023 12:22-0500 Systolic blood pressure 176 mm[Hg] Franck Lambert MD Work Phone: [facility] 01-28-2023 17:38-0400 Body temperature 97.9 [degF] Kristy Brower MD Work Phone: [facility] 01-28-2023 17:38-0400 Body weight 85.73 kg Kristy Brower MD Work Phone: [facility] 01-28-2023 17:38-0400 Diastolic blood pressure 81 mm[Hg] Kristy Brower MD Work Phone: [facility] 01-28-2023 17:38-0400 Heart rate 54 /min Kristy Brower MD Work Phone: [facility] 01-28-2023 17:38-0400 Respiratory rate 18 /min Kristy Brower MD Work Phone: [facility] 01-28-2023 17:38-0400 SaO2% (BldA) [Mass fraction] 98 % Kristy Brower MD Work Phone: [facility] 01-28-2023 17:38-0400 Systolic blood pressure 136 mm[Hg] Kristy Brower MD Work Phone: [facility] 01-09-2023 11:31-0400 Body height 152.4 cm Johanna Patino MD Work Phone: [facility] 01-09-2023 11:31-0400 Body temperature 98.4 [degF] Johanna Patino MD Work Phone: [facility] 01-09-2023 11:31-0400 Diastolic blood pressure 74 mm[Hg] Johanna Patino MD Work Phone: [facility] 01-09-2023 11:31-0400 Heart rate 52 /min Johanna Patino MD Work Phone: [facility] 01-09-2023 11:31-0400 Respiratory rate 16 /min Johanna Patino MD Work Phone: [facility] 01-09-2023 11:31-0400 SaO2% (BldA) [Mass fraction] 95 % Johanna Patino MD Work Phone: [facility] Comment on above: 01-09-2023 11:31-0400 Systolic blood pressure 152 mm[Hg] Johanna Patino MD Work Phone: [facility] 12-24-2022 16:00-0400 Heart rate 60 /min Kristy Brower Other Phone: [facility] 12-24-2022 16:00-0400 Respiratory rate 17 /min Kristy Cortezampas Other Phone: [facility] 12-24-2022 14:25-0400 Diastolic blood pressure 64 mm[Hg] Kristy Akshatampas Other Phone: [facility] 12-24-2022 14:25-0400 SaO2% (BldA) [Mass fraction] 94 % Kristy Cortezampliss Other Phone: [facility] 12-24-2022 14:25-0400 Systolic blood pressure 166 mm[Hg] Kristy Cortezampas Other Phone: [facility] 12-24-2022 10:30-0400 Body height 152.4 cm Kristy Cortezampas Other Phone: [facility] 12-24-2022 10:30-0400 Body temperature 97.88 [degF] Kristy Cortezampas Other Phone: [facility] 12-24-2022 10:30-0400 Body weight 83 kg Kristy Brower Other Phone: [facility] 12-05-2022 15:28-0400 Body temperature 98.4 [degF] Kojo Otoniel DIRECTOR [employer] Work Phone: [facility] 12-05-2022 15:28-0400 Body weight 82.56 kg Kojo Otoniel DIRECTOR [employer] SAL[employer]CUIT TESTER Work Phone: [facility] 12-05-2022 15:28-0400 Diastolic blood pressure 88 mm[Hg] Kojo Otoniel DIRECTOR [employer] SAL[employer]CIRCUIT TESTER Work Phone: [facility] 12-05-2022 15:28-0400 Heart rate 60 /min Kojo Otoniel DIRECTOR [employer] SAL[employer].CIRCUIT TESTER Work Phone: [facility] 12-05-2022 15:28-0400 SaO2% (BldA) [Mass fraction] 97 % Kojo Otoniel DIRECTOR [employer] SAL[employer].C[employer]CUIT TESTER Work Phone: [facility] 12-05-2022 15:28-0400 Systolic blood pressure 120 mm[Hg] Kojo Frederick DIRECTOR [employer] SAL[employer].C[employer]CUIT TESTER Work Phone: [facility] 11-13-2022 15:47-0400 Body temperature 98.1 [degF] Magy Cronin DIRECTOR [employer] SAL[employer].CIRCUIT TESTER Work Phone: [facility] 11-13-2022 15:47-0400 Body weight 83.73 kg Magy Rconin DIRECTOR [employer] SALES.[employer]CUIT TESTER Work Phone: [facility] 11-13-2022 15:47-0400 Diastolic blood pressure 98 mm[Hg] Magy Cronin DIRECTOR [employer] SALES.CIRCUIT TESTER Work Phone: [facility] 11-13-2022 15:47-0400 Heart rate 60 /min Magy Cronin DIRECTOR [employer] SAL[employer].CIRCUIT TESTER Work Phone: [facility] 11-13-2022 15:47-0400 Respiratory rate 21 /min Magy Cronin DIRECTOR [employer] SAL[employer].CIRCUIT TESTER Work Phone: [facility] 11-13-2022 15:47-0400 SaO2% (BldA) [Mass fraction] 98 % Magy Cronin DIRECTOR [employer] SAL[employer].CIRCUIT TESTER Work Phone: [facility] 11-13-2022 15:47-0400 Systolic blood pressure 138 mm[Hg] Magy Cronin DIRECTOR [employer] SALES.CIRCUIT TESTER Work Phone: [facility] 11-05-2022 16:13-0400 Body temperature 98.6 [degF] Kristy Brower MD Work Phone: [facility] 11-05-2022 16:13-0400 Body weight 84.14 kg Kristy Brower MD Work Phone: [facility] 11-05-2022 16:13-0400 Diastolic blood pressure 78 mm[Hg] Kristy Brower MD Work Phone: [facility] 11-05-2022 16:13-0400 Heart rate 54 /min Kristy Brower MD Work Phone: [facility] 11-05-2022 16:13-0400 Respiratory rate 18 /min Kristy Brower MD Work Phone: [facility] 11-05-2022 16:13-0400 SaO2% (BldA) [Mass fraction] 96 % Kristy Brower MD Work Phone: [facility] 11-05-2022 16:13-0400 Systolic blood pressure 132 mm[Hg] Kristy Brower MD Work Phone: [facility] 10-28-2022 14:22-0400 Body weight 83.01 kg Myriam Obrien MD Work Phone: [facility] 10-28-2022 14:22-0400 Diastolic blood pressure 82 mm[Hg] Myriam Obrien MD Work Phone: [facility] 10-28-2022 14:22-0400 Heart rate 69 /min Myriam Obrien MD Work Phone: [facility] 10-28-2022 14:22-0400 Respiratory rate 15 /min Myriam Obrien MD Work Phone: [facility] 10-28-2022 14:22-0400 SaO2% (BldA) [Mass fraction] 96 % Myriam Obrien MD Work Phone: [facility] 10-28-2022 14:22-0400 Systolic blood pressure 136 mm[Hg] Myriam Obrien MD Work Phone: [facility] 08-04-2022 11:51-0400 Body height 152.4 cm Kristy Brower Work Phone: JG-Qgvbuzoflb-Oifhd na 100 Work Phone: 08-04-2022 11:51-0400 Body mass index (BMI) [Ratio] 36.48 kg/m2 Kristy Brower Work Phone: IK-Uzxtvzdhmv-Fcjbq na 100 Work Phone: 08-04-2022 11:51-0400 Body surface area Derived from formula 1.81 m2 Kristy Cortezampas Work Phone: ZZ-Aqsshfoetx-Lzubh na 100 Work Phone: 08-04-2022 11:51-0400 Body weight 84.73 kg Kristy Cortezampliss Work Phone: OA-Gtyzvyoikp-Xjupy na 100 Work Phone: 08-04-2022 11:51-0400 Diastolic blood pressure 84 mm[Hg] Kristy Cortezampas Work Phone: XV-Munvucmknf-Clpld na 100 Work Phone: 08-04-2022 11:51-0400 Heart rate 51 /min Kristy Cortezampas Work Phone: NA-Gtkmxxryoi-Bwlch na 100 Work Phone: 08-04-2022 11:51-0400 Respiratory rate 16 /min Kristy Cortezampas Work Phone: NG-Qgoavjiuik-Nyxqv na 100 Work Phone: 08-04-2022 11:51-0400 Systolic blood pressure 160 mm[Hg] Kristy Cortezampliss Work Phone: WU-Rygslastdj-Bjhni na 100 Work Phone: 07-03-2022 12:26-0400 Body height 152.4 cm Kristy Cortezampas Work Phone: MF-Pxtafrtuye-Aktqc na 100 Work Phone: 07-03-2022 12:26-0400 Body mass index (BMI) [Ratio] 36.33 kg/m2 Kristy Akshatampas Work Phone: UZ-Dibvcwhfgs-Dlhst na 100 Work Phone: 07-03-2022 12:26-0400 Body surface area Derived from formula 1.81 m2 Kristy Akshatampas Work Phone: UH-Nfncwmvkls-Gxald na 100 Work Phone: 07-03-2022 12:26-0400 Body weight 84.37 kg Kristy Talampas Work Phone: BL-Dgxmhwtcah-Asudv na 100 Work Phone: 07-03-2022 12:26-0400 Diastolic blood pressure 86 mm[Hg] Kristy Talampas Work Phone: DU-Yrfedztwfb-Iuong na 100 Work Phone: 07-03-2022 12:26-0400 Heart rate 55 /min Kristy Talampas Work Phone: CC-Tkvjhauuzz-Tnaug na 100 Work Phone: 07-03-2022 12:26-0400 Respiratory rate 16 /min Kristy Talampas Work Phone: PR-Pnbgttrisc-Wrvrh na 100 Work Phone: 07-03-2022 12:26-0400 Systolic blood pressure 142 mm[Hg] Kristy Talampas Work Phone: XT-Plxbzxmuov-Vduzx na 100 Work Phone: 04-21-2022 13:41-0500 Body weight 87.09 kg Shantal Katerin PA-C Work Phone: [facility] 04-21-2022 13:41-0500 Diastolic blood pressure 80 mm[Hg] Shantal Katerin PA-C Work Phone: [facility] 04-21-2022 13:41-0500 Heart rate 54 /min Shantal Katerin PA-C Work Phone: [facility] 04-21-2022 13:41-0500 Respiratory rate 14 /min Shantal Katerin PA-C Work Phone: [facility] 04-21-2022 13:41-0500 SaO2% (BldA) [Mass fraction] 94 % Shantal Katerin PA-C Work Phone: [facility] 04-21-2022 13:41-0500 Systolic blood pressure 162 mm[Hg] Shantal Katerin PA-C Work Phone: [facility] 04-21-2022 13:26-0500 Body height 149.9 cm Pulm Wstr Work Phone: [facility] 04-21-2022 13:26-0500 Body weight 87.09 kg Pulm Wstr Work Phone: [facility] 04-21-2022 13:26-0500 Heart rate 54 /min Pulm Wstr Work Phone: [facility] 04-21-2022 13:26-0500 Respiratory rate 12 /min Pulm Wstr Work Phone: [facility] 04-21-2022 13:26-0500 SaO2% (BldA) [Mass fraction] 94 % Pulm Wstr Work Phone: [facility] 02-24-2022 10:21-0500 Body temperature 96.49 [degF] Amanda Jarrell APRN.CIRCUIT TESTER Work Phone: [facility] 02-24-2022 10:21-0500 Body weight 93.89 kg Amanda Jarrell APRN.CIRCUIT TESTER Work Phone: [facility] 02-24-2022 10:21-0500 Diastolic blood pressure 74 mm[Hg] Amanda Jarrell APRN.CIRCUIT TESTER Work Phone: [facility] 02-24-2022 10:21-0500 Heart rate 49 /min Amanda Jarrell APRN.CIRCUIT TESTER Work Phone: [facility] 02-24-2022 10:21-0500 Respiratory rate 20 /min Amanda Jarrell APRN.CIRCUIT TESTER Work Phone: [facility] 02-24-2022 10:21-0500 SaO2% (BldA) [Mass fraction] 96 % Amanda Jarrell APRN.CIRCUIT TESTER Work Phone: [facility] 02-24-2022 10:21-0500 Systolic blood pressure 112 mm[Hg] Amanda Jarrell APRN.CIRCUIT TESTER Work Phone: [facility] 01-31-2022 16:37-0400 Diastolic blood pressure 81 mm[Hg] Kristy Talampas Other Phone: [facility] 01-31-2022 16:37-0400 Heart rate 58 /min Kristy Talampas Other Phone: [facility] 01-31-2022 16:37-0400 Respiratory rate 16 /min Kristy Talampas Other Phone: [facility] 01-31-2022 16:37-0400 SaO2% (BldA) [Mass fraction] 96 % Kristy Akshatampas Other Phone: [facility] 01-31-2022 16:37-0400 Systolic blood pressure 173 mm[Hg] Kristy Talampas Other Phone: [facility] 01-31-2022 13:34-0400 Body height 152.4 cm Kristy Akshatampas Other Phone: [facility] 01-31-2022 13:34-0400 Body temperature 96.98 [degF] Kristy Akshatampas Other Phone: [facility] 01-31-2022 13:34-0400 Body weight 92.3 kg Kristy Cortezampas Other Phone: [facility] 01-16-2022 14:11-0400 Body weight 93.89 kg Myriam Obrien MD Work Phone: [facility] 01-16-2022 14:11-0400 Diastolic blood pressure 84 mm[Hg] Myriam Obrien MD Work Phone: [facility] 01-16-2022 14:11-0400 Heart rate 56 /min Myriam Obrien MD Work Phone: [facility] 01-16-2022 14:11-0400 SaO2% (BldA) [Mass fraction] 96 % Myriam Obrien MD Work Phone: [facility] 01-16-2022 14:11-0400 Systolic blood pressure 168 mm[Hg] Myriam Obrien MD Work Phone: [facility] 01-15-2022 14:49-0400 Diastolic blood pressure 100 mm[Hg] Kristy Brower MD Work Phone: [facility] 01-15-2022 14:49-0400 Systolic blood pressure 170 mm[Hg] Kristy Brower MD Work Phone: [facility] 01-15-2022 14:45-0400 Body temperature 97.3 [degF] Kristy Brower MD Work Phone: [facility] 01-15-2022 14:45-0400 Body weight 92.99 kg Kristy Brower MD Work Phone: [facility] 01-15-2022 14:45-0400 Heart rate 68 /min Kristy Brower MD Work Phone: [facility] 01-15-2022 14:45-0400 Respiratory rate 12 /min Kristy Brower MD Work Phone: [facility] 01-15-2022 14:45-0400 SaO2% (BldA) [Mass fraction] 98 % Kristy Brower MD Work Phone: [facility] 01-07-2022 15:09-0400 Body height 149.9 cm Marely Urbano MD Work Phone: [facility] 01-07-2022 15:09-0400 Body temperature 97.3 [degF] Marely Urbano MD Work Phone: [facility] 01-07-2022 15:09-0400 Body weight 92.08 kg Marely Urbano MD Work Phone: [facility] 01-07-2022 15:09-0400 Diastolic blood pressure 72 mm[Hg] Marely Urbano MD Work Phone: [facility] 01-07-2022 15:09-0400 Heart rate 57 /min Marely Urbano MD Work Phone: [facility] 01-07-2022 15:09-0400 Respiratory rate 12 /min Marely Urbano MD Work Phone: [facility] 01-07-2022 15:09-0400 SaO2% (BldA) [Mass fraction] 95 % Marely Urbano MD Work Phone: [facility] 01-07-2022 15:09-0400 Systolic blood pressure 142 mm[Hg] Marely Urbano MD Work Phone: [facility] 12-23-2021 15:39-0400 Diastolic blood pressure 84 mm[Hg] Kristy Talampas Other Phone: [facility] 12-23-2021 15:39-0400 Heart rate 66 /min Kristy Talampas Other Phone: [facility] 12-23-2021 15:39-0400 Respiratory rate 18 /min Kristy Talampas Other Phone: [facility] 12-23-2021 15:39-0400 SaO2% (BldA) [Mass fraction] 94 % Kristy Talampas Other Phone: [facility] 12-23-2021 15:39-0400 Systolic blood pressure 158 mm[Hg] Kristy Talampas Other Phone: [facility] 12-23-2021 12:13-0400 Body height 152.4 cm Kristy Talampas Other Phone: [facility] 12-23-2021 12:13-0400 Body temperature 97.88 [degF] Kristy Talampas Other Phone: [facility] 12-23-2021 12:13-0400 Body weight 93.6 kg Kristy Talampas Other Phone: [facility] 12-13-2021 12:44-0400 Body weight 93.44 kg Myriam Obrien MD Work Phone: [facility] 12-13-2021 12:44-0400 Diastolic blood pressure 86 mm[Hg] Myriam Obrien MD Work Phone: [facility] 12-13-2021 12:44-0400 Heart rate 54 /min Myriam Obrien MD Work Phone: [facility] 12-13-2021 12:44-0400 SaO2% (BldA) [Mass fraction] 97 % Myriam Obrien MD Work Phone: [facility] 12-13-2021 12:44-0400 Systolic blood pressure 164 mm[Hg] Myriam Obrien MD Work Phone: [facility] 10-22-2021 15:15-0400 Body weight 94.8 kg Kristy Brower MD Work Phone: [facility] 10-22-2021 15:15-0400 Diastolic blood pressure 84 mm[Hg] Kristy Brower MD Work Phone: [facility] 10-22-2021 15:15-0400 Heart rate 60 /min Kristy Brower MD Work Phone: [facility] 10-22-2021 15:15-0400 SaO2% (BldA) [Mass fraction] 95 % Kristy Brower MD Work Phone: [facility] 10-22-2021 15:15-0400 Systolic blood pressure 142 mm[Hg] Kristy Brower MD Work Phone: [facility] 09-12-2021 14:15-0400 Body height 152.4 cm Shantal Katerin PA-C Work Phone: [facility] 09-12-2021 14:15-0400 Body weight 93.89 kg Shantal Katerin PA-C Work Phone: [facility] 09-12-2021 14:15-0400 Diastolic blood pressure 86 mm[Hg] Shantal Katerin PA-C Work Phone: [facility] 09-12-2021 14:15-0400 Heart rate 60 /min Shantal Katerin PA-C Work Phone: [facility] 09-12-2021 14:15-0400 Respiratory rate 16 /min Shantal Katerin PA-C Work Phone: [facility] 09-12-2021 14:15-0400 SaO2% (BldA) [Mass fraction] 97 % Shantal Álvarezone PA-C Work Phone: [facility] 09-12-2021 14:15-0400 Systolic blood pressure 140 mm[Hg] Shantal Álvarezone PA-C Work Phone: [facility] 08-22-2021 15:27-0400 Body temperature 97.16 [degF] Kristy Talampas Other Phone: [facility] 08-22-2021 15:27-0400 Diastolic blood pressure 64 mm[Hg] Kristy Talampas Other Phone: [facility] 08-22-2021 15:27-0400 Heart rate 54 /min Kristy Talampas Other Phone: [facility] 08-22-2021 15:27-0400 Respiratory rate 18 /min Kristy Talampas Other Phone: [facility] 08-22-2021 15:27-0400 SaO2% (BldA) [Mass fraction] 94 % Kristy Talampas Other Phone: [facility] 08-22-2021 15:27-0400 Systolic blood pressure 123 mm[Hg] Kristy Talampas Other Phone: [facility] 08-11-2021 15:30-0400 Diastolic blood pressure 67 mm[Hg] Kristy Talampas Other Phone: [facility] 08-11-2021 15:30-0400 Heart rate 50 /min Kristy Talampas Other Phone: [facility] 08-11-2021 15:30-0400 Respiratory rate 18 /min Kristy Talampas Other Phone: [facility] 08-11-2021 15:30-0400 SaO2% (BldA) [Mass fraction] 96 % Kristy Talampliss Other Phone: [facility] 08-11-2021 15:30-0400 Systolic blood pressure 146 mm[Hg] Kristy Brower Other Phone: [facility] 08-11-2021 13:44-0400 Body temperature 97.7 [degF] Kristy Brower Other Phone: [facility] 08-11-2021 13:44-0400 Body weight 95 kg Kristy Brower Other Phone: [facility] 07-09-2021 17:10-0400 Body weight 93.89 kg Kristy Brower MD Work Phone: [facility] 07-09-2021 17:10-0400 Diastolic blood pressure 92 mm[Hg] Kristy Brower MD Work Phone: [facility] 07-09-2021 17:10-0400 Heart rate 60 /min Kristy Brower MD Work Phone: [facility] 07-09-2021 17:10-0400 Systolic blood pressure 158 mm[Hg] Kristy Brower MD Work Phone: [facility] 12-29-2020 17:30-0400 Diastolic blood pressure 82 mm[Hg] Kristy Brower Other Phone: [facility] 12-29-2020 17:30-0400 Heart rate 46 /min Kristy Brower Other Phone: [facility] 12-29-2020 17:30-0400 Respiratory rate 16 /min Kristy Brower Other Phone: [facility] 12-29-2020 17:30-0400 SaO2% (BldA) [Mass fraction] 96 % Kristy Brower Other Phone: [facility] 12-29-2020 17:30-0400 Systolic blood pressure 161 mm[Hg] Kristy Brower Other Phone: [facility] 12-29-2020 14:03-0400 Body height 152.4 cm Kristy Brower Other Phone: [facility] 12-29-2020 14:03-0400 Body temperature 98.42 [degF] Kristy Brower Other Phone: [facility] 12-29-2020 [id number] Body weight 91.8 kg Kristy Melendezliss Other Phone: [facility] 1945 00:00-0400 >na< Bernadine Mcclain Dept. 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 Kristy Brower MD Work Phone: -[facility] Start: 11-07-2024 End: 11-07-[address] Lashonda Archer MD -[facility] Work Phone: Start: 09-21-2024 End: 09-21-2024 ambulatory KRISTY BROWER Facility:[facility] Start: 09-21-2024 End: 09-21-2024 Office outpatient visit 25 minutes Kristy Brower MD Work Phone: [facility] [place] Comment on above: Chronic right ear pa in (Primary Dx); Episodic paroxysmal hemicrania, not intractable; Post-nasal drip; Obstructive sleep apnea; Fibromyalgia; Urinary frequency; Bad odor of urine; Vitamin D deficiency; Type 2 diabetes mellitus with diabetic neuropathy, without long-term current use of insulin (HCC); Essential (primary) hypertension; Encounter for therapeutic drug monitoring; Chronic right-sided thoracic back pain; Primary osteoarthritis of both knees Start: 09-21-2024 End: 09-21-[address] [facility] Facility:[facility] Start: 09-12-2024 End: 09-12-2024 Office outpatient visit 25 minutes Johanna Patino MD Work Phone: [facility] Comment on above: Moderate persistent asthma without complication (HHS-HCC) (Primary Dx); ILD (interstitial lung disease) (Multi); EMY on CPAP; Perennial allergic rhinitis with seasonal variation; BMI 35.0-35.9,adult Start: 09-12-2024 End: 09-12-2024 ambulatory JOHANNA PATINO [facility] Start: 09-09-2024 End: 09-09-2024 Patient encounter procedure Kirit Chavez Work Phone: Podiatry Comment on above: Porokeratosis (Prima ry Dx); Type 2 diabetes mellitus with diabetic neuropathy, without long-term current use of insulin (HCC) Start: 09-09-2024 End: 09-09-[address] [facility] Facility:[facility] Start: 08-31-2024 End: 08-31-2024 Office outpatient new 60 minutes Flores Alonzo MD Work Phone: [facility] Comment on above: ILD (interstitial zaria ng disease) (Multi) Start: 08-31-2024 End: 08-31-2024 ambulatory FLORES ALONZO [facility] Start: 08-29-2024 End: 08-29-2024 Patient encounter procedure Kojo Frederick APRN.CNP Work Phone: [facility] [place] Comment on above: Acute UTI (Primary D x); Muscle strain; Muscle spasm of back Start: 08-29-2024 End: 08-29-2024 ambulatory KRISTY D TALAMPAS Facility:[facility] Start: 08-08-2024 ambulatory Shantal Cheung ty:[facility] Start: 08-04-2024 End: 08-04-2024 Office outpatient visit 15 minutes Franck Lambert MD Work Phone: [facility] Comment on above: Premature atrial con tractions; Bradycardia; Shortness of breath Start: 08-04-2024 End: 08-04-2024 ambulatory FRANCK LAMBERT [facility] Start: 07-15-2024 End: 07-15-2024 Follow-up encounter Kojo Frederick APRN.CNP Work Phone: [facility] [place] Start: 07-13-2024 ambulatory KRISTY D TALAMPAS Facilit y:[facility] Start: 07-13-2024 End: 07-13-2024 Subsequent [place] visit [place] [facility] Work Phone: Radiology Comment on above: Thyroid nodule [E04. 1] Start: 07-06-2024 End: 07-06-2024 ambulatory KRISTY D TALAMPAS Facility:[facility] Start: 07-06-2024 End: 07-06-2024 Patient encounter procedure Kojo Frederick APRN.CNP Work Phone: [facility] [place] Comment on above: Sinobronchitis (Prim neelima Dx); Hypercalcemia; Vitamin D deficiency; Thyroid nodule Start: 07-06-2024 End: 07-06-2024 Telephone encounter Kristy Brower MD Work Phone: [facility] [place] Comment on above: Right ear pain, sinu s drainage, sore throat Start: 06-06-2024 End: 08-06-2024 Follow-up encounter Anastasia Smith APRN.CNP Work Phone: Internal Medicine [place] Start: 06-03-2024 End: 06-03-2024 Subsequent hospital visit by physician Kevin [facility] [place] Work Phone: Radiology Comment on above: Right hip pain [M25. 551] Start: 06-03-2024 End: 06-03-2024 ambulatory KRISTY BROWER Facility:[facility] Start: 06-03-2024 End: 06-03-2024 Patient encounter procedure Anastasia M Sarah NAYLOR Work Phone: Internal Medicine [place] Comment on above: Right hip pain (Prim neelima Dx) Start: 06-02-2024 End: 06-02-2024 ambulatory Kristy Brower MD Work Phone: Internal Medicine [place] Comment on above: Right Hip Pain Start: 05-31-2024 End: 05-31-2024 ambulatory Shantalfercho Mccauley Facility:[facility] Start: 05-26-2024 End: 06-22-2024 ambulatory Kristy Brower MD Work Phone: Internal Medicine [place] Comment on above: Blood test results Start: 05-25-2024 End: 05-25-2024 ambulatory KRISTY BROWER Facility:[facility] Start: 05-23-2024 End: 05-23-2024 Office outpatient visit 25 minutes Kristy Brower MD Work Phone: [facility] [place] Comment on above: Type 2 diabetes michelle itus with diabetic neuropathy, without long-term current use of insulin (HCC) (Primary Dx); Essential (primary) hypertension; Esophagitis; Duodenitis; Vitamin D deficiency; Encounter for therapeutic drug monitoring; Shortness of breath on exertion; Other fatigue; Other constipation; Gastroesophageal reflux disease with esophagitis and hemorrhage; Acute right-sided thoracic back pain Start: 05-23-2024 End: 05-25-2024 Refill Kristy Brower MD Work Phone: Internal Medicine [place] Comment on above: Refill Request Start: 05-19-2024 End: 05-19-2024 ambulatory Rigoberto Nicole Facility:[facility] Start: 05-05-2024 End: 05-05-2024 Office outpatient visit 15 minutes Franck Lambert MD Work Phone: [facility] Comment on above: Premature atrial con tractions; Bradycardia; Shortness of breath Start: 05-05-2024 End: 05-05-2024 ambulatory [facility] Start: 05-02-2024 End: 05-02-2024 ambulatory Shantal Mccauley Facility:[facility] Start: 04-21-2024 End: 04-21-2024 ambulatory [facility] Start: 04-15-2024 End: 04-15-2024 ambulatory [facility] Start: 04-15-2024 End: 04-15-2024 Subsequent hospital visit by physician Graham [facility] 1 [facility] Comment on above: Premature atrial con tractions; Bradycardia; Shortness of breath Start: 04-01-2024 End: 04-01-2024 Office outpatient visit 15 minutes Franck Lambert MD Work Phone: [facility] Comment on above: Bradycardia (Primary Dx); Premature atrial contractions; Shortness of breath Start: 04-01-2024 End: 04-01-2024 ambulatory [facility] Start: 03-24-2024 End: 03-24-2024 ambulatory KRISTY BROWER Facility:[facility] Start: 03-24-2024 End: 03-24-2024 Office outpatient visit 40 minutes Kristy Brower MD Work Phone: Internal Medicine [place] Comment on above: Thrush, oral (Primar y Dx); Acute diverticulitis; Bradycardia; Essential (primary) hypertension; PVC (premature ventricular contraction); Pulmonary fibrosis (HCC); Syncope, unspecified syncope type; Chronic rhinitis; Post-nasal drip; Primary osteoarthritis of right knee Start: 03-18-2024 End: 03-20-2024 Telephone encounter Kristy Brower MD Work Phone: Internal Medicine [place] Comment on above: Patient Update Start: 03-15-2024 Critical care ill/in jured patient init 30-74 min Rocael Correa MD Work Phone: [facility] Work Phone: Start: 03-15-2024 End: 03-17-2024 Evaluation and management of inpatient Rocael Correa MD Work Phone: [facility] 3 Comment on above: Syncope, unspecified syncope type (Primary Dx); Pneumonitis; Diverticulitis; Bradycardia; Coronary artery disease involving [place] coronary artery of [place] heart, unspecified whether angina present; Pneumonia of both lower lobes due to infectious organism Start: 03-14-2024 End: 03-14-2024 Office outpatient visit 25 minutes Johanna Patino MD Work Phone: [facility] Comment on above: Moderate persistent asthma without complication (HHS-HCC) (Primary Dx); EMY on CPAP; ILD (interstitial lung disease) (Multi); Perennial allergic rhinitis with seasonal variation; BMI 36.0-36.9,adult Start: 03-14-2024 End: 03-14-2024 ambulatory JOHANNA [facility] Start: 03-09-2024 End: 03-11-2024 Telephone encounter Kristy Brower MD Work Phone: Internal Medicine [place] Comment on above: Orders Start: 03-08-2024 End: 03-08-2024 Subsequent hospital visit by physician Graham X-Ray 1 [facility] Comment on above: Moderate persistent asthma without complication (HHS-HCC) Start: 03-08-2024 End: 03-09-2024 ambulatory Kristy Brower MD Work Phone: [facility] Medicine [place] Comment on above: In need a urine test . Start: 03-08-2024 End: 03-08-2024 Office outpatient visit 25 minutes Jackelin Lares PA-C Work Phone: Family Medicine [place] Comment on above: Urinary frequency (P rimary Dx); Lower abdominal pain Start: 03-03-2024 ambulatory Rigoberto Nicole Facility :[facility] Start: 02-24-2024 End: 02-24-2024 ambulatory KRISTY BROWER Facility:[facility] Start: 02-24-2024 End: 02-24-2024 Office outpatient visit 25 minutes Kristy Brower MD Work Phone: Internal Medicine [place] Comment on above: Acute non-recurrent frontal sinusitis (Primary Dx); Dysfunction of right eustachian tube; Neck pain on right side; Bilateral leg edema; Urge incontinence of urine; Encounter for immunization; Essential (primary) hypertension; Acute pharyngitis, unspecified etiology; Obstructive sleep apnea Start: 02-15-2024 End: 03-01-2024 Refill Kojo Frederick APRN.CNP Work Phone: Internal Medicine [place] Comment on above: Refill Request; Open ed In Error Start: 02-12-2024 End: 02-12-2024 Patient encounter procedure Kojo Frederick APRN.CIRCUIT TESTER Work Phone: Internal Medicine [place] Comment on above: Acute non-recurrent frontal sinusitis (Primary Dx); Essential hypertension Start: 02-12-2024 End: 02-12-2024 ambulatory KRISTY BROWER Facility:[facility] Start: 01-25-2024 End: 01-25-2024 ambulatory Nydia Jhaveri Facility:[facility] Start: 01-15-2024 End: 01-15-2024 ambulatory Lillian Valente RN Work Phone: [employer] Start: 01-15-2024 End: 01-15-2024 Follow-up encounter Lillian Valente RN Work Phone: [employer] Management Comment on above: EKATERINA GALLEGOS RN ( ER outreach follow up) Start: 01-14-2024 End: 01-14-2024 Office outpatient visit 25 minutes Kristy Brower MD Work Phone: Internal Medicine [place] Comment on above: Acute diverticulitis (Primary Dx); Acute cystitis without hematuria; Urge incontinence of urine; Vitamin D deficiency Start: 01-14-2024 End: 01-14-2024 ambulatory KRISTY BROWER Facility:[facility] Start: 01-11-2024 End: 01-11-2024 Emergency department patient visit KRISTY BROWER [facility] Emergency Medicine Comment on above: Diverticulitis (Prim neelima Dx); Acute cystitis without hematuria Start: 12-25-2023 End: 12-25-2023 ambulatory KRISTY BROWER Facility:[facility] Start: 12-25-2023 End: 12-25-2023 Patient encounter procedure Kojo Frederick APRN.CIRCUIT TESTER Work Phone: Internal Medicine [place] Comment on above: Other fatigue (Prima ry Dx); Chronic bilateral thoracic back pain; High calcium levels; Vitamin D deficiency; Type 2 diabetes mellitus with diabetic neuropathy, without long-term current use of insulin (HCC); Encounter for therapeutic drug monitoring Start: 12-24-2023 End: 12-24-2023 Refill Kristy Brower MD Work Phone: Internal Medicine [place] Comment on above: Refill Request Start: 12-07-2023 End: 12-11-2023 Telephone encounter Kristy Brower MD Work Phone: Family Medicine [place] Comment on above: Sinus Problem Start: 11-25-2023 End: 11-25-2023 Telephone encounter Kojo Frederick APRN.CIRCUIT TESTER Work Phone: Internal Medicine [place] Comment on above: handicap placard Start: 11-14-2023 End: 11-14-2023 Telephone encounter Kristy Brower MD Work Phone: Internal Medicine [place] Start: 11-11-2023 End: 11-11-2023 Office outpatient visit 40 minutes Kristy Brower MD Work Phone: Internal Medicine [place] Comment on above: Type 2 diabetes michelle itus with diabetic neuropathy, without long-term current use of insulin (HCC) (Primary Dx); Essential hypertension; Vitamin D deficiency; Chronic bilateral thoracic back pain; Chronic fatigue; Arthralgia of right acromioclavicular joint; Chronic right shoulder pain; Chronic frontal sinusitis; Chronic maxillary sinusitis; Essential hypertension; Obstructive sleep apnea; Encounter for long-term current use of medication Start: 10-27-2023 Refill Kristy white MD Work Phone: Internal Medicine [place] Comment on above: Refill Request Start: 10-12-2023 End: 10-12-[facility] Start: 10-12-2023 End: 10-12-2023 Office outpatient visit 25 minutes Johanna Patino MD Work Phone: [facility] Comment on above: Moderate persistent asthma without complication (HHS-HCC) (Primary Dx); Perennial allergic rhinitis with seasonal variation; EMY on CPAP; ILD (interstitial lung disease) (Multi); BMI 35.0-35.9,adult Start: 09-30-2023 End: 09-30-2023 Patient encounter procedure Kristy Brower MD Work Phone: Internal Medicine [place] Comment on above: Medicare annual well ness visit, subsequent (Primary Dx); Type 2 diabetes mellitus with diabetic neuropathy, without long-term current use of insulin (HCC); Lichen sclerosus; Post-nasal drip; Essential hypertension; Acute non-recurrent sinusitis of other sinus; Antibiotic-induced yeast infection; Itching Start: 09-29-2023 End: 09-29-2023 Subsequent hospital visit by physician Graham Lopez 2 [facility] Comment on above: Shortness of breath on exertion; Essential hypertension; Bilateral carotid bruits Start: 09-29-2023 End: 09-29-2023 ambulatory [facility] Start: 09-19-2023 End: 09-19-2023 Office outpatient visit 15 minutes Miko Mcneal APRN.CNP Work Phone: [facility] Comment on above: Sorethroat (Primary Dx); Viral illness Start: 09-14-2023 End: 09-14-2023 Subsequent hospital visit by physician Graham King 1 [facility] Comment on above: Shortness of breath on exertion; Essential hypertension; Bilateral carotid bruits Start: 09-14-2023 End: 09-14-2023 ambulatory [facility] Start: 09-08-2023 ambulatory [facility] [place] Start: 09-08-2023 Patient encounter procedure [facility] [place] Comment on above: Population Health Na vigation Outreach (Has[place] AWV/HCC and care gaps ) Start: 08-20-2023 End: 08-20-2023 ambulatory [facility] Ambulatory Start: 08-20-2023 End: 08-20-2023 Office outpatient visit 15 minutes Franck Lambert MD Work Phone: [facility] Comment on above: Essential hypertensi on (Primary Dx); Shortness of breath on exertion; Bilateral carotid bruits Start: 08-11-2023 Telephone encounter Kristy dunlap MD Work Phone: Internal Medicine [place] Comment on above: Patient Update; Madelyn ent Question Refill Request Start: 08-01-2023 Telephone encounter Kojo dominguez DIRECTOR [employer].CIRCUIT TESTER Work Phone: Internal Medicine [place] Comment on above: Patient Question Start: 07-31-2023 End: 07-31-2023 Patient encounter procedure Kojo Frederick DIRECTOR [employer] SAL[employer].CIRCUIT TESTER Work Phone: Internal Medicine [place] Comment on above: Chronic pain of left knee (Primary Dx); Chronic right shoulder pain; Urinary frequency; Type 2 diabetes mellitus with diabetic neuropathy, without long-term current use of insulin (HCC); Screening for thyroid disorder; Encounter for therapeutic drug monitoring Start: 07-23-2023 End: 07-23-2023 Emergency department patient visit KRISTY BROWER [facility] Emergency Medicine Comment on above: Knee effusion, left (Primary Dx); Arthritis of left knee Start: 05-18-2023 End: 05-18-2023 Subsequent hospital visit by physician [facility] Work Phone: Radiology Comment on above: Thyroid nodule [E04. 1] Start: 05-05-2023 End: 05-05-2023 Subsequent hospital visit by physician Kevin [facility] [place] Work Phone: Radiology Comment on above: Chronic right should er pain [M25.511, G89.29] Start: 05-05-2023 End: 05-05-2023 Patient encounter procedure Kojo Frederick DIRECTOR [employer] SALES.CIRCUIT TESTER Work Phone: Internal Medicine [place] Comment on above: Gastroesophageal ref lux disease, unspecified whether esophagitis present (Primary Dx); IPF (idiopathic pulmonary fibrosis) (HCC); ILD (interstitial lung disease) (HCC); Type 2 diabetes mellitus with diabetic neuropathy, without long-term current use of insulin (HCC); Thyroid nodule; DDD (degenerative disc disease), cervical; Chronic right shoulder pain Start: 03-13-2023 End: 03-13-2023 Office outpatient visit 25 minutes Johanna Patino MD Work Phone: [facility] Comment on above: Moderate persistent asthma without complication (Primary Dx); Seasonal allergic rhinitis due to other allergic trigger; ILD (interstitial lung disease) ([facility]); EMY on CPAP; BMI 36.0-36.9,adult Start: 03-10-2023 End: 03-10-[address] [facility] Ambulatory Start: 03-10-2023 End: 03-10-2023 Office outpatient visit 15 minutes [facility] DIRECTOR GLOBAL SALES-CIRCUIT TESTER Work Phone: [facility] Comment on above: Encounter for screen ing for malignant neoplasm of skin (Primary Dx); Hemangioma of skin; Skin tag; Seborrheic keratosis; Lentigo Start: 02-16-2023 End: 02-16-2023 ambulatory [facility] Ambulatory Start: 02-16-2023 End: 02-16-2023 Office outpatient visit 15 minutes Franck Lambert MD Work Phone: [facility] Comment on above: Shortness of breath on exertion (Primary Dx) Start: 01-28-2023 End: 01-28-2023 Office outpatient visit 40 minutes Kristy Brower MD Work Phone: Internal Medicine [place] Comment on above: Lichen sclerosus (Pr imary Dx); DDD (degenerative disc disease), lumbar; Lumbar radicular syndrome; Vitamin D deficiency; Type 2 diabetes mellitus with diabetic neuropathy, without long-term current use of insulin ([facility]); Elevated ferritin; Encounter for long-term current use of medication Start: 01-19-2023 End: 01-19-2023 Subsequent hospital visit by physician [facility] Comment on above: Moderate persistent asthma without complication; ILD (interstitial lung disease) (CMS/HCC) Start: 01-09-2023 End: 01-10-2023 ambulatory KRISTY BROWER [facility] Start: 01-09-2023 End: 01-09-2023 Office outpatient new 45 minutes Johanna Patino MD Work Phone: [facility] Comment on above: Moderate persistent asthma without complication (Primary Dx); Seasonal allergic rhinitis due to other allergic trigger; ILD (interstitial lung disease) ([facility]); EMY on CPAP; BMI 36.0-36.9,adult Start: 01-01-2023 End: 01-01-2023 Patient encounter procedure Trae Perry MD Work Phone: Otolaryngology Comment on above: Chronic rhinitis (Pr imary Dx); Recurrent sinusitis Start: 12-24-2022 End: 12-24-2022 Emergency department patient visit Estuardo Huang [facility] Emergency 13 Start: 12-19-2022 Telephone encounter Kristy dunlap MD Work Phone: Internal Medicine [place] Comment on above: Results Start: 12-05-2022 End: 12-05-2022 Subsequent hospital visit by physician Xr [facility] [place] Work Phone: Radiology Comment on above: Chronic midline thor acic back pain [M54.6, G89.29] Start: 12-05-2022 End: 12-05-2022 Patient encounter procedure Kojo Frederick DIRECTOR [employer].CIRCUIT TESTER Work Phone: Internal Medicine [place] Comment on above: Acute cystitis witho ut hematuria (Primary Dx); Chronic rhinitis; Chronic midline thoracic back pain Start: 11-13-2022 End: 11-13-2022 Patient encounter procedure Magy Cronin APRN.CIRCUIT TESTER Work Phone: [facility] Comment on above: Acute otitis media, left (Primary Dx); Rhinosinusitis Start: 11-05-2022 End: 11-05-2022 Office outpatient visit 40 minutes Kristy Brower MD Work Phone: Internal Medicine [place] Comment on above: Type 2 diabetes michelle itus with diabetic neuropathy, without long-term current use of insulin ([facility]) (Primary Dx); SVT (supraventricular tachycardia) ([facility]); Chronic rhinitis; DDD (degenerative disc disease), cervical; Chronic right-sided thoracic back pain Start: 10-28-2022 End: 10-28-2022 Patient encounter procedure Myriam Obrien MD Work Phone: Pulmonary Medicine Comment on above: Acute maxillary sinu sitis, recurrence not specified (Primary Dx); IPF (idiopathic pulmonary fibrosis) ([facility]); Mild intermittent asthma with acute exacerbation Start: 10-28-2022 Telephone encounter Kristy dunlap MD Work Phone: Family Medicine [place] Start: 10-20-2022 End: 10-20-2022 Subsequent hospital visit by physician Ct [facility] ([facility]) Work Phone: Cat Scan Comment on above: Interstitial pulmona ry disease (HCC) [J84.9] Start: 09-11-2022 Telephone encounter Pavantraci Bradley DO Work Phone: Radiology Comment on above: disk request Start: 08-26-2022 End: 08-26-2022 Subsequent hospital visit by physician Xr [facility] [place] Work Phone: Radiology Comment on above: Right foot injury, i nitial encounter [S99.921A] Start: 08-19-2022 Telephone encounter Myriam Obrien MD Work Phone: [facility] [place] Comment on above: Patient Question Start: 08-04-2022 Office outpatient vi sit 15 minutes Kristy Melendezas Work Phone: [id number]-Cdvzrcg 100 Work Phone: Start: 08-04-2022 Patient encounter procedure Kristy Brower Work Phone: YR-Dsxbuzqpum-Dhlopby 100 Work Phone: Start: 07-23-2022 Chart Update Kristy Akshatfabi Work Phone: KO-Vkwjjyrxyx-Fitcmiu 100 Work Phone: Start: 07-21-2022 ambulatory Kristyjames Brower Facility: [id number] Start: 07-03-2022 Office outpatient vi sit 25 minutes Kristy Melendezliss Work Phone: XX-Prdktuuefd-Gtealsw 100 Work Phone: Start: 07-03-2022 Patient encounter procedure Kristyjames Cortezampliss Work Phone: IX-Yshwmpkftk-Khlbaqy 100 Work Phone: Start: 04-21-2022 End: 04-21-2022 ambulatory Pulm Lab [facility] Work Phone: PULM LAB [facility] Comment on above: Spirometry Start: 04-21-2022 End: 04-21-2022 Patient encounter procedure Pulm Lab [facility] Work Phone: [facility] Comment on above: ILD (interstitial zaria ng disease) ([facility]) (Primary Dx); Former smoker; Obstructive sleep apnea; Recurrent sinusitis Start: 04-15-2022 End: 04-15-2022 Office outpatient visit 40 minutes Kristy Brower MD Work Phone: Internal Medicine [place] Comment on above: Controlled type 2 di abetes mellitus without complication, without long-term current use of insulin ([facility]) (Primary Dx); Chronic right-sided thoracic back pain; Vitamin D deficiency; Pure hypercholesterolemia; ILD (interstitial lung disease) ([facility]); Obstructive sleep apnea; Essential hypertension; Rib pain on right side; Encounter for long-term current use of medication; Thyroid nodule Start: 04-09-2022 Telephone encounter Kristy dunlap MD Work Phone: Internal Medicine [place] Comment on above: Lab Orders Start: 04-07-2022 Telephone encounter Kristy dunlap MD Work Phone: Internal Medicine [place] Comment on above: Results Start: 03-22-2022 End: 03-22-2022 Office outpatient visit 25 minutes Kristy Brower MD Work Phone: Internal Medicine [place] Comment on above: Chronic midline thor acic back pain (Primary Dx); Chronic midline low back pain, unspecified whether sciatica present; Other fatigue; RLS (restless legs syndrome); Shakiness; History of COVID-19; Type 2 diabetes mellitus with diabetic neuropathy, without long-term current use of insulin ([facility]); Vitamin D deficiency Start: 03-10-2022 End: 03-10-[address] Evan Vaughan Facility:[id number] Start: 02-24-2022 End: 02-24-2022 Subsequent hospital visit by physician Xr [facility] [place] Work Phone: Radiology Comment on above: Pain [R52] Start: 02-24-2022 End: 02-24-2022 Patient encounter procedure Amanda Jarrell DAYDAY Work Phone: [place] [facility] Comment on above: Pain (Primary Dx) Start: 02-03-2022 Telephone encounter Myriam Obrien MD Work Phone: Pulmonary Medicine Comment on above: Covid Positive Start: 01-31-2022 End: 01-31-2022 Emergency department patient visit Lillian Cote [facility] Emergency 09 Start: 01-20-2022 Telephone encounter Myriam Obrien MD Work Phone: Family Medicine [place] Comment on above: Orders Start: 01-16-2022 End: 01-16-2022 Patient encounter procedure Myriam Obrien MD Work Phone: Pulmonary Medicine Comment on above: Upper respiratory tr act infection, unspecified type (Primary Dx); ILD (interstitial lung disease) (HCC) Start: 01-15-2022 End: 01-15-2022 Office outpatient visit 25 minutes Kristy Brower MD Work Phone: Internal Medicine [place] Comment on above: Type 2 diabetes michelle itus with diabetic neuropathy, without long-term current use of insulin (HCC) (Primary Dx); Acute non-recurrent frontal sinusitis; Vitamin D deficiency; Acute bronchitis, unspecified organism; Mild intermittent asthma with acute exacerbation Start: 01-14-2022 Office outpatient vi sit 15 minutes Bernadine Mcclain Dept. of Dermatology Start: 01-07-2022 End: 01-07-2022 Patient encounter procedure Marely Urbano MD Work Phone: [facility] Medicine [place] Comment on above: Acute non-recurrent frontal sinusitis (Primary Dx) Start: 01-02-2022 Telephone encounter Kristy dunlap MD Work Phone: Internal Medicine [place] Comment on above: Medication Question (regarding the use of her inhaler tonight) Start: 12-30-2021 End: 12-30-2021 Subsequent hospital visit by physician Xr [facility] [place] Work Phone: Radiology Comment on above: Bronchitis [J40] Start: 12-25-2021 Telephone encounter Myriam Obrien MD Work Phone: Pulmonary Medicine Comment on above: ED visit update Start: 12-23-2021 ambulatory Kristy white MD Work Phone: Internal Medicine [place] Comment on above: Shortness of Breath Start: 12-23-2021 End: 12-23-2021 Emergency department patient visit Ishmael Velásquez [facility] Emergency 01 Start: 12-13-2021 End: 12-13-2021 Patient encounter procedure Myriam Obrien MD Work Phone: Pulmonary Medicine Comment on above: Pulmonary fibrosis ( HCC) (Primary Dx); Morbid obesity (HCC); Post-nasal drip Start: 12-10-2021 Office outpatient vi sit 15 minutes Bernadine Mcclain Dept. of Dermatology Start: 12-10-2021 Office outpatient vi sit 25 minutes Bernadine Mcclain Dept. of Dermatology Start: 11-18-2021 End: 11-18-2021 Patient encounter procedure Trae Perry MD Work Phone: Otolaryngology Comment on above: Chronic rhinitis (Pr imary Dx); Thyroid nodule Start: 10-22-2021 End: 10-22-2021 Office outpatient visit 25 minutes Kristy Brower MD Work Phone: Internal Medicine [place] Comment on above: Acute recurrent fron akshat sinusitis (Primary Dx); Urinary frequency; Controlled type 2 diabetes mellitus without complication (HCC); Fatigue, unspecified type; Acute left-sided thoracic back pain; Chronic pain of both shoulders; Vitamin D deficiency; Type 2 diabetes mellitus with diabetic neuropathy, without long-term current use of insulin (HCC); Essential hypertension; Diuretic-induced hypokalemia Start: 10-22-2021 End: 10-22-2021 ambulatory Respiratory Therapist [facility] Work Phone: Pulmonary Medicine Comment on above: Spirometry Start: 10-22-2021 End: 10-22-2021 Patient encounter procedure [facility] Work [facility] Start: 10-21-2021 Telephone encounter Kristy dunlap MD Work Phone: Internal Medicine [facility] Comment on above: Results; Medication Request Start: 09-12-2021 End: 09-12-2021 Patient encounter procedure Shantal MARC Work Phone: Pulmonary Medicine Comment on above: ILD (interstitial zaria ng disease) ([facility]) (Primary Dx); Obstructive sleep apnea; Chronic rhinitis; Former smoker Start: 09-12-2021 Telephone encounter Shantal (Historical) Katerin Work Phone: Pulmonary Medicine Comment on above: Orders Start: 09-04-2021 Telephone encounter Kristy dunlap MD Work Phone: Internal Medicine [facility] Comment on above: Conductor Orchestra orderin g testing Start: 08-30-2021 Telephone encounter Shantal (Historical) Katerin Work Phone: Pulmonary Medicine Comment on above: 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 - O ther Start: 08-28-2021 Telephone encounter Giuliano de la torre MD Work Phone: Pulmonary Medicine Comment on above: Patient Update; Madelyn ent Question Start: 08-27-2021 End: 08-27-2021 Subsequent hospital visit by physician [facility] Work Phone: Radiology Comment on above: Acute left-sided tho racic back pain [M54.6] Start: 08-20-2021 End: 08-22-2021 Evaluation and management of inpatient Franck Lambert [facility] 2029 03 Start: 08-11-2021 End: 08-11-2021 Emergency department patient visit Bib Ballard [facility] Emergency Start: 07-12-2021 End: 07-12-2021 Subsequent hospital visit by physician Us [facility] 2 Work Phone: Radiology Comment on above: Thyroid nodule [E04. 1] Start: 07-09-2021 End: 07-09-2021 Office outpatient visit 25 minutes Kristy Brower MD Work Phone: Internal Medicine [facility] Comment on above: Type 2 diabetes michelle itus with diabetic neuropathy, without long-term current use of insulin (HCC) (Primary Dx); Diuretic-induced hypokalemia; Essential hypertension; Vitamin D deficiency; Pure hypercholesterolemia; Thyroid nodule; Encounter for long-term current use of medication; Fatigue, unspecified type; UTI symptoms; Lichen sclerosus Start: 06-25-2021 ambulatory Kristy white MD Work Phone: Internal Medicine [facility] [place] Start: 06-25-2021 Telephone encounter Kristy dunlap MD Work Phone: Internal Medicine [facility] Comment on above: CPAP repair Start: 06-24-2021 ambulatory Kristy white MD Work Phone: Internal Medicine [facility] Comment on above: Tests before visit o n 07-09-21 Start: 12-29-2020 End: 12-29-2020 Emergency department patient visit Bradly Tejeda [facility] Emergency 02 Start: 07-12-2020 End: 07-12-2020 Subsequent hospital visit by physician Xr [facility] Work Phone: Radiology Comment on above: Toe pain, right [M79 .674] Start: 09-14-2017 Ambulatory Latrell Balderrama Facility :[facility] Start: 03-09-2017 Ambulatory Fina Morales Facility:[facility] Start: 01-12-2017 Ambulatory Lien Villarreal ility:[facility] Procedures Date Procedure Procedure Detail Performing Clinician Start: 08-29-2024 Urnls dip stick/tabl et rgnt auto w/o microscopy Kojo Frederick DIRECTOR GLOBAL SALES.CIRCUIT TESTER Work Phone: Start: 06-03-2024 Radex hip unilateral with pelvis 2-3 views Anastasia Smith DIRECTOR GLOBAL SALES.CIRCUIT TESTER Work Phone: Start: 04-15-2024 Ct thorax w/o contra st material Franck Lambert MD Work Phone: Start: 04-01-2024 Ecg routine ecg w/le ast 12 lds trcg only w/o i&r Franck Lambert MD Work Phone: Start: 03-17-2024 EXTRA TUBES Emmanuel B urock DO Work Phone: Start: 03-17-2024 LAVENDER TOP Emmanuel B urock DO Work Phone: Start: 03-17-2024 Basic metabolic pane l calcium total Staci ChristiansenMaren DIRECTOR GLOBAL SALES-CIRCUIT TESTER Work Phone: Start: 03-16-2024 Ct head/brain w/o co ntrast material Staci ChristiansenMaren DIRECTOR GLOBAL SALES-CIRCUIT TESTER Work Phone: Start: 03-16-2024 RESPIRATORY CARE MARIA ESTHER LUATION ONLY Elizabeth Marc MD Work Phone: Start: 03-15-2024 Iaad ia mult step me thod nos each organism Staci ChristiansenMaren DIRECTOR GLOBAL SALES-CIRCUIT TESTER Work Phone: Start: 03-15-2024 EXTRA URINE KEITH TUBE J ohmehdi Correa MD Work Phone: Start: 03-15-2024 Culture bacterial quanttative colony count urine Rocael Correa MD Work Phone: Start: 03-15-2024 Urinalysis complete W Reflex Culture panel - Urine Rocael Correa MD Work Phone: Start: 03-15-2024 Urinalysis microscop ic panel - Urine Qualitative by Automated Rocael Correa MD Work Phone: Start: 03-15-2024 Ct abdomen & pelvis w/o contrast material Rocael Correa MD Work Phone: Start: 03-15-2024 Iadna-dna/rna gi pth gn multiplex probe tq 6-11 Rocael Correa MD Work Phone: Start: 03-15-2024 Inf agent det nuclei c acid clostridium amp probe Rocael Correa MD Work Phone: Start: 03-15-2024 Radiologic exam ches t single view Rocael Correa MD Work Phone: Start: 03-15-2024 EXTRA TUBES Rocael mott MD Work Phone: Start: 03-15-2024 KEITH TOP Rocael mott MD Work Phone: Start: 03-15-2024 End: 03-15-2024 Basic metabolic panel calcium total Rocael Correa MD Work Phone: Start: 03-15-2024 Influenza virus A an d B RNA [Identifier] in Unspecified specimen by LAMIN with probe detection Rocael Correa MD Work Phone: Start: 03-15-2024 SARS-CoV-2 (COVID-19 ) RNA [Presence] in Respiratory specimen by LAMIN with probe detection Rocael Correa MD Work Phone: Start: 03-15-2024 Troponin I.cardiac p francine - Serum or Plasma by High sensitivity method Rocael Correa MD Work Phone: Start: 03-15-2024 Ecg routine ecg w/le ast 12 lds trcg only w/o i&r Rocael Correa MD Work Phone: Start: 03-08-2024 Culture bacterial quanttative colony count urine Jackelin ROBERTS-Kutenda Work Phone: Start: 03-08-2024 Urnls dip stick/tabl et rgnt auto w/o microscopy Jackelin Lares PA-C Work Phone: Start: 01-11-2024 Ct abdomen & pelvis w/o contrast material Bradly Tejeda DIRECTOR GLOBAL SALES-CIRCUIT TESTER Work Phone: Start: 01-11-2024 Comprehensive metabo lic panel Bradly Tejeda DIRECTOR GLOBAL SALES-CIRCUIT TESTER Work Phone: Start: 01-11-2024 Urinalysis microscop ic panel - Urine Qualitative by Automated Bradly Tejeda DIRECTOR GLOBAL SALES-CIRCUIT TESTER Work Phone: Start: 01-11-2024 Urnls dip stick/tabl et reagent auto microscopy Bradly Tejeda DIRECTOR GLOBAL SALES-CIRCUIT TESTER Work Phone: Start: 09-29-2023 Echo tthrc r-t 2d w/ wom-mode compl spec&colr d Franck Lambert MD Work Phone: Start: 09-19-2023 STREP A MOLECULAR (POC) Sofía Alvarado DIRECTOR GLOBAL SALES.CIRCUIT TESTER Work Phone: Start: 09-14-2023 Duplex scan extracra nial art compl bi study Franck Lambert MD Work Phone: Start: 08-20-2023 Ecg routine ecg w/le ast 12 lds w/i&r Franck Lambert MD Work Phone: Start: 07-31-2023 Urnls dip stick/tabl et rgnt auto w/o microscopy Kojo Otoniel DIRECTOR GLOBAL SALES.CIRCUIT TESTER Work Phone: Start: 07-23-2023 APPLY AL WRAP KRISTY AKSHAT AMPAMaris Start: 07-23-2023 XR KNEE LEFT 4+ VIEWS L MUSHTAQ BROWER Start: 07-23-2023 Radiologic exam knee complete 4/more views Bradly Tejeda DIRECTOR GLOBAL SALES-CIRCUIT TESTER Work Phone: Start: 05-05-2023 Radex shoulder compl ete minimum 2 views Kojo Otoniel DIRECTOR GLOBAL SALES.CIRCUIT TESTER Work Phone: Start: 01-09-2023 ALLERGEN, RESPIRATOR Y PROFILE IGE KRISTY BROWER Start: 01-09-2023 HYPERSENSITIVITY PANEL KRISTY CORTEZAMPLISS Start: 12-24-2022 End: 12-24-2022 EKG impression Estuardo Huang Start: 12-05-2022 Radex spine thoracic 2 views Kojo Otoniel DIRECTOR GLOBAL SALES.CIRCUIT TESTER Work Phone: Start: 12-05-2022 Radiologic exam ches t 2 views Kojo Otoniel DIRECTOR GLOBAL SALES.CIRCUIT TESTER Work Phone: Start: 12-05-2022 Culture bacterial quanttative colony count urine Kojo Otoniel DIRECTOR GLOBAL SALES.CIRCUIT TESTER Work Phone: Start: 12-05-2022 Urnls dip stick/tabl et rgnt auto w/o microscopy Kojo Otoniel DIRECTOR GLOBAL SALES.CIRCUIT TESTER Work Phone: Start: 10-20-2022 Ct thorax w/o contra st material Myriam Sue Brown MD Work Phone: Start: 08-26-2022 Radex foot complete minimum 3 views Sofía Alvarado DIRECTOR GLOBAL SALES.CIRCUIT TESTER Work Phone: Start: 07-21-2022 Echocardiography Kristy muniz Work Phone: Start: 04-21-2022 Co diffusing capacity E raf Obrien MD Work Phone: Start: 02-24-2022 Radex ankle complete minimum 3 views Amanda Jarrell DIRECTOR GLOBAL SALES.CIRCUIT TESTER Work Phone: Start: 01-31-[address] Xavier Huang Comment on above: Performed By: #### T +S #### [facility] [address] [place] [address] Start: 01-14-2022 Destruction benign l esions up to 14 Bernadine Sarahi Start: 12-30-2021 Radiologic exam ches t 2 views Marely Urbano MD Work Phone: Start: 12-23-2021 End: 12-23-2021 EKG impression Ishmael Csernyik Start: 08-27-2021 Radex spine thoracic 3 views Anastasia Smith DIRECTOR GLOBAL SALES.CIRCUIT TESTER Work Phone: Start: 08-21-2021 Lipid 1996 panel - S marie or Plasma Johanna Patino MD Work Phone: Start: 08-11-2021 End: 08-11-2021 EKG impression Bib I Moomaw Start: 07-12-2021 Us soft tissue head & neck real time imge docm Kristy Brower MD Work Phone: Start: 12-29-2020 End: 12-29-2020 EKG impression Bradly Bilderback Start: 07-12-2020 Radex foot complete minimum 3 views Virginie Trammell DIRECTOR GLOBAL SALES.WEED SCIENCE RESEARCH TECHNICIAN Work Phone: Plan of Treatment Date Care Activity Detail Author Start: 09-24-2028 DTaP/Tdap/Td Vaccines (2 - Td or Tdap) DTaP/Tdap/Td Vaccines (2 - Td or Tdap) [facility] Start: 09-24-2028 Urine microalbumin profile [facility] Start: 08-21-2026 Lipid panel Lipid Panel [facility] Start: 09-22-2025 End: 09-22-2025 Patient encounter procedure 09/22/2025 4:20 PM EDT Office Visit Internal Medicine [facility] [address] [place] [address] Kristy Brower MD [address] [place] [address] 3 month follow Internal Medicine [facility] Comment on above: 3 month follow Start: 06-05-2025 End: 06-05-2025 Patient encounter procedure 06/05/2025 3:40 PM EDT Office Visit [facility] [place] [address] [place] [address] Kristy Brower MD [address] [place], [place] [id number] 3 month follow up Internal Medicine [facility] Comment on above: 3 month follow up Start: 06-05-2025 End: 06-05-2025 Patient encounter procedure 06/05/2025 1:40 PM EDT Office Visit [address] [phone] Johanna Patino MD [address] [place] [phone] [facility] Start: 03-24-2025 Annual PCP Team Chronic Disease Visit Annual PCP Team Chronic Disease Visit [facility] Start: 03-23-2025 Hemoglobin A1c measurement HbA1C [facility] Start: 03-08-2025 Annual PCP Team Chronic Disease Visit Annual PCP Team Chronic Disease Visit [facility] Start: 03-06-2025 End: 03-06-2025 Patient encounter procedure 03/06/2025 3:40 PM EST Office Visit [facility] [place] [address] [place] [address] Kristy Brower MD [address] [place] [address] 3 month follow up Internal Medicine [facility] Comment on above: 3 month follow up Start: 02-23-2025 Annual PCP Team Chronic Disease Visit Annual PCP Team Chronic Disease Visit [facility] Start: 02-23-2025 Anxiety Screening Anxiety Screening [facility] Comment on above: Postponed from 1961 (Declined at t his time) Start: 02-21-2025 End: 05-23-2025 Microalbumin/Creatinine [Mass Ratio] in Urine ALBUMIN/CREATININE RATIO, URINE Lab Routine Type 2 diabetes mellitus with diabetic neuropathy, without long-term current use of insulin (HCC) Expected: 02/21/2025 (Approximate), Expires: 05/23/2025 [facility] Work Phone: Comment on above: Expected: 02/21/2025 (Approximate), Expi res: 05/23/2025 Start: 02-11-2025 Annual PCP Team Chronic Disease Visit Annual PCP Team Chronic Disease Visit [facility] Start: 02-10-2025 End: 02-10-2025 Patient encounter procedure 02/10/2025 12:30 PM EST Office Visit [employer] [facility] [address] [phone] Franck Lambert MD [address] [place], [place] [phone] [facility] Start: 01-13-2025 Annual PCP Team Chronic Disease Visit Annual PCP Team Chronic Disease Visit [facility] Start: 01-05-2025 End: 01-05-2025 Patient encounter procedure 01/05/2025 2:30 PM EDT Office Visit [employer] [address] [phone] Franck Lambert MD [address] [place] [address] [facility] Start: 12-24-2024 Annual PCP Team Chronic Disease Visit Annual PCP Team Chronic Disease Visit [facility] Start: 12-24-2024 Hepatitis B screening Urine Albumin:Creatinine Ratio [facility] Start: 12-24-2024 Urine screening for protein Diabetes: Urine Protein Screening [facility] Start: 12-22-2024 Hemoglobin A1c measurement Diabetes: Hemoglobin A1C [facility] Start: 12-06-2024 Glaucoma screening Dilated Retinal Exam [facility] Start: 12-02-2024 End: 12-02-2024 Patient encounter procedure 12/02/2024 4:20 PM EDT Office Visit [facility] [place] [address] [place] [address] Kristy Brower MD [address] [place], [place] [address] Medicare Wellness [facility] [place] Comment on above: Medicare Wellness Start: 11-28-2024 COVID-19 Vaccine ( season) COVID-19 Vaccine () [facility] Start: 11-28-2024 Influenza vaccination [facility] Start: 11-22-2024 Hemoglobin A1c measurement HbA1C [facility] Start: 11-10-2024 Annual PCP Team Chronic Disease Visit Annual PCP Team Chronic Disease Visit [facility] Start: 09-29-2024 Annual PCP Team Chronic Disease Visit Annual PCP Team Chronic Disease Visit [facility] Start: 09-26-2024 Influenza vaccination Influenza Vaccine (#1) [facility] Comment on above: Postponed from 11/29/2023 (Declined at t his time) Start: 09-21-2024 End: 09-21-2024 Patient encounter procedure 09/21/2024 1:20 PM EDT Office Visit Internal Medicine [facility] [address] [place], [place] [id number] Kristy Brower MD [address] [place] [address] 3 month follow up Internal Medicine [facility] Comment on above: 3 month follow up Start: 09-18-2024 BP Controlled (<130/80) BP Controlled (<130/80) [facility] in Start: 09-12-2024 End: 09-12-2024 Patient encounter procedure 09/12/2024 1:20 PM EDT Office Visit [facility] [address] [place] [phone] Johanna Patino MD [address] [place], [place] [phone] [facility] Start: 08-31-2024 End: 08-31-2024 Patient encounter procedure 08/31/2024 1:00 PM EDT Office Visit [facility] Engel Karol [address] [place] [address] [place] [address] [place] [address] Kyliemarquita Roberson Start: 08-26-2024 End: 08-26-2024 Patient encounter procedure 08/26/2024 3:40 PM EDT Office Visit [facility] [place] [address] [place] [address] Kristy Brower MD [address] [place] [address] 3 mo f/u [facility] [place] Comment on above: 3 mo f/u Start: 08-22-2024 Hemoglobin A1c measurement Diabetes: Hemoglobin A1C [facility] Start: 08-04-2024 End: 08-04-2024 Patient encounter procedure 08/04/2024 3:00 PM EDT Office Visit Podiatry [address] [place] [address] Trudi Pickard DPM [address] [place] [address] right foot callus Podiatry Comment on above: right foot callus Start: 07-30-2024 Annual PCP Team Chronic Disease Visit Annual PCP Team Chronic Disease Visit [facility] Start: 07-07-2024 End: 07-07-2024 Patient encounter procedure 07/07/2024 11:30 AM EDT Appointment Radiology [address] [place] [address] Thyroid nodule [E04.1] Radiology Comment on above: Thyroid nodule [E04.1] Start: 07-06-2024 End: 07-06-2024 Patient encounter procedure 07/06/2024 3:40 PM EDT Office Visit [facility] [place] [address] [place] [address] Kojo Frederick APRN.CIRCUIT TESTER [address] [place] [address] Right ear pain, sinus drainage, sore throat 3 days. See phone note. [facility] [place] Comment on above: Right ear pain, sinus drainage, sore thr oat 3 days. See phone note. Start: 06-13-2024 End: 09-12-2024 25-hydroxyvitamin D3 [Mass/volume] in Serum or Plasma VITAMIN D 25 HYDROXY Lab Routine Vitamin D deficiency Hypercalcemia Expected: 06/13/2024, Expires: 09/12/2024 [facility] Comment on above: Expected: 06/13/2024, Expires: Start: 06-13-2024 End: 09-12-2024 Basic metabolic 2000 panel - Serum or Plasma BASIC METABOLIC PANEL Lab Routine Vitamin D deficiency Hypercalcemia Expected: 06/13/2024, Expires: 09/12/2024 [facility] Comment on above: Expected: 06/13/2024, Expires: Start: 06-13-2024 End: 09-12-2024 Parathyrin.intact [Mass/volume] in Serum or Plasma PTH INTACT Lab Routine Vitamin D deficiency Hypercalcemia Expected: 06/13/2024, Expires: 09/12/2024 [facility] Work Phone: Comment on above: Expected: 06/13/2024, Expires: Start: 06-03-2024 End: 06-03-2024 Patient encounter procedure 06/03/2024 9:40 AM EST Office Visit [facility] Medicine [place] [address] [place] [address] Anastasia Smith APRN.CIRCUIT TESTER [address] [place] [address] Hip pain Right See triage. Internal Medicine [facility] Comment on above: Hip pain Right See triage. Start: 05-23-2024 End: 05-23-2024 Patient encounter procedure 05/23/2024 4:20 PM EST Office Visit [facility] Medicine [facility] [address] [place] [address] Kristy Brower MD [address] [place] [address] 3 mo f/u Internal Medicine [facility] Comment on above: 3 mo f/u Start: 05-23-2024 End: 08-22-2024 25-hydroxyvitamin D3 [Mass/volume] in Serum or Plasma VITAMIN D 25 HYDROXY Lab Routine Vitamin D deficiency Encounter for therapeutic drug monitoring Other fatigue Expected: 05/23/2024, Expires: 08/22/2024 [facility] Comment on above: Expected: 05/23/2024, Expires: Start: 05-23-2024 End: 08-22-2024 CBC panel - Blood by Automated count COMPLETE BLOOD COUNT Lab Routine Essential (primary) hypertension Encounter for therapeutic drug monitoring Other fatigue Expected: 05/23/2024, Expires: 08/22/2024 [facility] Comment on above: Expected: 05/23/2024, Expires: Start: 05-23-2024 End: 08-22-2024 Cobalamin (Vitamin B12) [Mass/volume] in Serum or Plasma VITAMIN B12 Lab Routine Other fatigue Expected: 05/23/2024, Expires: 08/22/2024 [facility] Comment on above: Expected: 05/23/2024, Expires: Start: 05-23-2024 End: 08-22-2024 Comprehensive metabolic 2000 panel - Serum or Plasma COMPREHENSIVE METABOLIC PANEL Lab Routine Essential (primary) hypertension Type 2 diabetes mellitus with diabetic neuropathy, without long-term current use of insulin (HCC) Encounter for therapeutic drug monitoring Other fatigue Expected: 05/23/2024, Expires: 08/22/2024 [facility] Work Phone: Comment on above: Expected: 05/23/2024, Expires: Start: 05-23-2024 End: 08-22-2024 Hemoglobin A1c in Blood HEMOGLOBIN A1C Lab Routine Type 2 diabetes mellitus with diabetic neuropathy, without long-term current use of insulin (HCC) Encounter for therapeutic drug monitoring Other fatigue Expected: 05/23/2024, Expires: 08/22/2024 [facility] Comment on above: Expected: 05/23/2024, Expires: Start: 05-23-2024 End: 08-22-2024 Magnesium [Mass/volume] in Serum or Plasma MAGNESIUM Lab Routine Encounter for therapeutic drug monitoring Other fatigue Expected: 05/23/2024, Expires: 08/22/2024 [facility] Comment on above: Expected: 05/23/2024, Expires: Start: 05-13-2024 Hemoglobin A1c measurement HbA1C [facility] Start: 05-05-2024 End: 05-05-2024 Patient encounter procedure 05/05/2024 3:30 PM EST Office Visit [facility] [address] Professional [address] [phone] Franck Lambert MD [address] [place] [address] [facility] Start: 05-05-2024 Annual PCP Team Chronic Disease Visit Annual PCP Team Chronic Disease Visit [facility] Start: 05-05-2024 RSV Vaccine (1 - 1-dose 60+ series) RSV Vaccine (1 - 1-dose 60+ series) [facility] Comment on above: Postponed from 2003 (Insurance Cov erage) Start: 05-05-2024 RSV Vaccine (1 - 1-dose 75+ series) RSV Vaccine (1 - 1-dose 75+ series) [facility] Comment on above: Postponed from 2018 (Insurance Cov erage) Start: 04-15-2024 End: 04-15-2024 Patient encounter procedure 04/15/2024 1:30 PM EST Appointment [address] [phone] [facility] Start: 04-01-2024 End: 04-01-[address] chest high resolution Imaging Routine Premature atrial contractions Bradycardia Shortness of breath Expected: 04/01/2024, Expires: 04/01/2025 [facility] Service Area Work Phone: Comment on above: Expected: 04/01/2024, Expires: Start: 04-01-2024 End: 04-01-2025 Holter monitor study Holter Or Event Associate Veterinarian Cardiac Services Routine Premature atrial contractions Bradycardia Shortness of breath Expected: 04/01/2024, Expires: 04/01/2025 [facility] Work Phone: Comment on above: Expected: 04/01/2024, Expires: Start: 04-01-2024 End: 04-01-2024 Patient encounter procedure 04/01/2024 12:00 PM EST Office Visit [facility] [address] [facility] [address] [phone] Franck Lambert MD [address] [place], [place] [phone] [facility] Start: 03-30-2024 Advance Directive Discussion Advance Directive Discussion [facility] Start: 03-30-2024 Medicare Advantage Annual Wellness Visit Medicare Advantage Annual Wellness Visit [facility] Start: 03-24-2024 Hepatitis B surface antibody level LDL Cholesterol [facility] Start: 03-24-2024 End: 03-24-2024 Patient encounter procedure 03/24/2024 1:20 PM EST Office Visit [facility] [place] [address] [place], [place] [phone] Kristy Brower MD [address] [place], [place] [phone] [facility] Follow up D/C 03/17/2024; Diverticulitis/Pneumonia [facility] [place] Comment on above: [facility] Follow up D/C 03/17/2024; Diverticulitis/Pneumonia Start: 03-21-2024 End: 03-21-2024 Patient encounter procedure 03/21/2024 2:45 PM EST Office Visit [address] [phone] Franck Lambert MD [address] [place] [phone] [facility] Start: 03-21-2024 End: 03-21-2024 Patient encounter procedure 03/21/2024 10:40 AM EST Office Visit [address] [phone] Johanna Patino MD [address] [place] [phone] [facility] Start: 03-15-2024 End: 03-15-2024 Patient encounter procedure 03/15/2024 2:45 PM EST Office Visit [address] [phone] Franck Lambert MD [address] [place] [phone] [facility] Start: 03-14-2024 End: 03-14-2024 Patient encounter procedure [facility] Start: 03-10-2024 End: 03-10-2024 Patient encounter procedure 03/10/2024 10:20 AM EST Office Visit [facility] [place] [address] [place] [address] Judy Doshi, DIRECTOR GLOBAL SALES.CIRCUIT TESTER [address] [place], [place] [phone] 2 day follow up ABD pain [facility] [place] Comment on above: 2 day follow up ABD pain Start: 03-08-2024 End: 03-08-2024 Patient encounter procedure 03/08/2024 1:20 PM EST Office Visit [facility] [place] [address] [place], [place] [phone] Jackelin Lares PA-C [address] [place] [address] lower abdominal pain [facility] Comment on above: lower abdominal pain Start: 02-24-2024 End: 02-24-2024 Patient encounter procedure 02/24/2024 1:40 PM EST Office Visit [facility] [address] [place], [place] [phone] Kristy Brower MD [address] [place] [address] 3 MONTH FOLLOW UP [facility] Comment on above: 3 MONTH FOLLOW UP Start: 02-20-2024 End: 08-19-2024 US Heart Transthoracic Transthoracic echo (TTE) complete Echocardiography Routine Shortness of breath on exertion Essential hypertension Bilateral carotid bruits Expected: 02/20/2024, Expires: 08/19/2024 [facility] Service Area Work Phone: Comment on above: Expected: 02/20/2024, Expires: Start: 02-20-2024 End: 08-19-2025 US.doppler Carotid arteries - bilateral Vascular US Carotid Artery Duplex Bilateral Vascular Ultrasound Routine Shortness of breath on exertion Essential hypertension Bilateral carotid bruits Expected: 02/20/2024 (Approximate), Expires: 08/19/2025 [facility] Work Phone: Comment on above: Expected: 02/20/2024 (Approximate), Expi res: 08/19/2025 Start: 02-11-2024 Hemoglobin A1c measurement Diabetes: Hemoglobin A1C [facility] Start: 01-31-2024 Hemoglobin A1c measurement HbA1C [facility] Start: 01-29-2024 Annual PCP Team Chronic Disease Visit Annual PCP Team Chronic Disease Visit [facility] Start: 01-29-2024 End: 01-29-2024 Patient encounter procedure 01/29/2024 1:45 PM EDT Office Visit [address] [phone] Bernadine Mcclain, DIRECTOR [employer] [address] [address] [facility] Start: 01-26-2024 End: 01-26-2024 Patient encounter procedure 01/26/2024 1:45 PM EDT Office Visit [facility] [address] [phone] Bernadine Mcclain, DIRECTOR [employer] [address] [address] [facility] Start: 12-31-2023 Annual PCP Team Chronic Disease Visit Annual PCP Team Chronic Disease Visit [facility] Start: 12-25-2023 End: 12-25-2023 Patient encounter procedure 12/25/2023 2:20 PM EDT Office Visit [facility] [address] [place], [place] [phone] Kojo Frederick APRN.CIRCUIT TESTER [address] [place] [address] Office visit with primary care as per patient [facility] [place] Comment on above: Office visit with primary care as per armando berkowitz Start: 12-25-2023 End: 03-25-2024 25-hydroxyvitamin D3 [Mass/volume] in Serum or Plasma [facility] Comment on above: Expected: 12/25/2023, Expires: Start: 12-25-2023 End: 03-25-2024 Bacteria identified in Urine by Culture [facility] Comment on above: Expected: 12/25/2023, Expires: Start: 12-25-2023 End: 03-25-2024 CBC W Auto Differential panel - Blood [facility] Work Phone: Comment on above: Expected: 12/25/2023, Expires: Start: 12-25-2023 End: 03-25-2024 Cobalamin (Vitamin B12) [Mass/volume] in Serum or Plasma [facility] Comment on above: Expected: 12/25/2023, Expires: Start: 12-25-2023 End: 03-25-2024 Comprehensive metabolic 2000 panel - Serum or Plasma [facility] Comment on above: Expected: 12/25/2023, Expires: Start: 12-25-2023 End: 03-25-2024 Ferritin [Mass/volume] in Serum or Plasma [facility] Comment on above: Expected: 12/25/2023, Expires: Start: 12-25-2023 End: 03-25-2024 Iron and Iron binding capacity panel - Serum or Plasma [facility] Comment on above: Expected: 12/25/2023, Expires: Start: 12-25-2023 End: 03-25-2024 Magnesium [Mass/volume] in Serum or Plasma [facility] Comment on above: Expected: 12/25/2023, Expires: Start: 12-25-2023 End: 03-25-2024 Microalbumin/Creatinine [Mass Ratio] in Urine [facility] Comment on above: Expected: 12/25/2023, Expires: Start: 12-25-2023 End: 03-25-2024 Parathyrin.intact [Mass/volume] in Serum or Plasma [facility] Comment on above: Expected: 12/25/2023, Expires: Start: 12-25-2023 End: 03-25-2024 Thyrotropin [Units/volume] in Serum or Plasma [facility] Comment on above: Expected: 12/25/2023, Expires: Start: 12-25-2023 End: 03-25-2024 Urinalysis complete panel - Urine [facility] Comment on above: Expected: 12/25/2023, Expires: Start: 12-22-2023 End: 12-22-2023 Patient encounter procedure 12/22/2023 1:30 PM EDT Office Visit [facility] [address] [place] [address] Magy Abad, DIRECTOR [employer] [address] [facility] [address] [place] [address] [facility] Start: 12-18-2023 End: 12-18-2023 Patient encounter procedure 12/18/2023 1:00 PM EDT Office Visit Orthopedics [address] [facility] [address] [place] [address] Keyshawn Wilcox MD [address] [facility] [address] [place] [address] Arthralgia of right acromioclavicular joint [M25.511]; Chronic right shoulder pain [M25.511, G89.29] Orthopedics Comment on above: Arthralgia of right acromioclavicular yelitza int [M25.511]; Chronic right shoulder pain [M25.511, G89.29] Start: 12-13-2023 BP Controlled (<130/80) BP Controlled (<130/80) [facility] in Start: 12-06-2023 ANNUAL PCP TEAM CHRONIC DISEASE VISIT ANNUAL PCP TEAM CHRONIC DISEASE VISIT [facility] Start: 11-29-2023 COVID-19 Vaccine ( season) COVID-19 Vaccine ( season) [facility] Start: 11-29-2023 COVID-19 Vaccine ( season) COVID-19 Vaccine ( season) [facility] Start: 11-29-2023 Influenza vaccination [facility] Start: 11-11-2023 End: 11-11-2023 Patient encounter procedure 11/11/2023 1:40 PM EDT Office Visit [facility] [address] [place], [place] [phone] Kristy Brower MD [address] [place] [address] 3 month follow up [facility] Comment on above: 3 month follow up Start: 11-06-2023 ANNUAL PCP TEAM CHRONIC DISEASE VISIT ANNUAL PCP TEAM CHRONIC DISEASE VISIT [facility] Start: 10-31-2023 Hemoglobin A1c measurement Diabetes: Hemoglobin A1C [facility] Start: 10-18-2023 Hepatitis B screening URINE ALBUMIN:CREATININE RATIO [facility] Start: 10-18-2023 Urine screening for protein Diabetes: Urine Protein Screening [facility] Start: 10-16-2023 Diabetes mellitus screening Diabetes Screening [facility] Start: 10-16-2023 Hemoglobin A1c measurement Diabetes: Hemoglobin A1C [facility] Start: 10-16-2023 Hepatitis B surface antibody level LDL CHOLESTEROL [facility] Start: 10-12-2023 End: 10-11-2024 XR Chest 2 Views XR chest 2 views Imaging Routine Moderate persistent asthma without complication (HHS-HCC) Expected: 10/12/2023, Expires: 10/11/2024 [facility] Service Area Work Phone: Comment on above: Expected: 10/12/2023, Expires: Start: 10-12-2023 End: 10-12-2023 Patient encounter procedure 10/12/2023 10:20 AM EDT Office Visit [facility] [address] [place] [phone] Johanna Patino MD [address] [place] [phone] [facility] Start: 09-30-2023 End: 09-30-2023 Patient encounter procedure 09/30/2023 4:20 PM EDT Office Visit [facility] [address] [place] [address] Kristy Brower MD [address] [place] [address] Annual Medicare Wellness [facility] Comment on above: Annual Medicare Wellness Start: 09-29-2023 End: 09-29-2023 Patient encounter procedure 09/29/2023 11:30 AM EDT Appointment [place] [id number] [phone] [facility] Start: 09-27-2023 Influenza vaccination Influenza Vaccine (#1) [facility] Comment on above: Postponed from 11/28/2022 (Declined at t his time) Start: 09-23-2023 Hemoglobin A1c measurement HbA1C [facility] Start: 08-20-2023 End: 08-20-2023 Patient encounter procedure [facility] Start: 07-31-2023 End: 10-30-2023 CBC W Auto Differential panel - Blood [facility] Work Phone: Comment on above: Expected: 07/31/2023, Expires: Start: 07-31-2023 End: 10-30-2023 Comprehensive metabolic 2000 panel - Serum or Plasma [facility] Comment on above: Expected: 07/31/2023, Expires: Start: 07-31-2023 End: 10-30-2023 Hemoglobin A1c in Blood [facility] Comment on above: Expected: 07/31/2023, Expires: Start: 07-31-2023 End: 10-30-2023 Magnesium [Mass/volume] in Serum or Plasma [facility] Comment on above: Expected: 07/31/2023, Expires: Start: 07-31-2023 End: 10-30-2023 Thyrotropin [Units/volume] in Serum or Plasma [facility] Comment on above: Expected: 07/31/2023, Expires: Start: 07-19-2023 ANNUAL PCP TEAM CHRONIC DISEASE VISIT ANNUAL PCP TEAM CHRONIC DISEASE VISIT [facility] Start: 06-23-2023 Hemoglobin A1c measurement Diabetes: Hemoglobin A1C [facility] Start: 06-20-2023 Hepatitis B surface antibody level LDL CHOLESTEROL [facility] Start: 04-30-2023 End: 07-30-2023 25-hydroxyvitamin D3 [Mass/volume] in Serum or Plasma VITAMIN D 25 HYDROXY Lab Routine Vitamin D deficiency Encounter for long-term current use of medication Expected: 04/30/2023 (Approximate), Expires: 07/30/2023 [facility] Work Phone: Comment on above: Expected: 04/30/2023 (Approximate), Expi res: 07/30/2023 Start: 04-30-2023 End: 07-30-2023 CBC panel - Blood by Automated count CBC Lab Routine Elevated ferritin Encounter for long-term current use of medication Expected: 04/30/2023 (Approximate), Expires: 07/30/2023 [facility] Work Phone: Comment on above: Expected: 04/30/2023 (Approximate), Expi res: 07/30/2023 Start: 04-30-2023 End: 07-30-2023 Comprehensive metabolic 2000 panel - Serum or Plasma COMP METABOLIC PANEL Lab Routine Encounter for long-term current use of medication Expected: 04/30/2023 (Approximate), Expires: 07/30/2023 [facility] Work Phone: Comment on above: Expected: 04/30/2023 (Approximate), Expi res: 07/30/2023 Start: 04-30-2023 End: 07-30-2023 Ferritin [Mass/volume] in Serum or Plasma FERRITIN BLD Lab Routine Elevated ferritin Encounter for long-term current use of medication Expected: 04/30/2023 (Approximate), Expires: 07/30/2023 [facility] Work Phone: Comment on above: Expected: 04/30/2023 (Approximate), Expi res: 07/30/2023 Start: 04-30-2023 End: 07-30-2023 Hemoglobin A1c in Blood HGB A1C Lab Routine Type 2 diabetes mellitus with diabetic neuropathy, without long-term current use of insulin (HCC) Encounter for long-term current use of medication Expected: 04/30/2023 (Approximate), Expires: 07/30/2023 [facility] Work Phone: Comment on above: Expected: 04/30/2023 (Approximate), Expi res: 07/30/2023 Start: 04-17-2023 Hemoglobin A1c/Hemoglobin.total in Blood HBA1C [facility] Start: 04-15-2023 ANNUAL PCP TEAM CHRONIC DISEASE VISIT ANNUAL PCP TEAM CHRONIC DISEASE VISIT [facility] Start: 04-15-2023 SHINGRIX VACCINE (1 of 2) SHINGRIX VACCINE (1 of 2) [facility] Comment on above: Postponed from 1993 (Declined at t his time) Start: 04-11-2023 Hepatitis B surface antibody level LDL CHOLESTEROL [facility] Start: 03-22-2023 ANNUAL PCP TEAM CHRONIC DISEASE VISIT ANNUAL PCP TEAM CHRONIC DISEASE VISIT [facility] Start: 03-13-2023 End: 03-13-2023 Patient encounter procedure 03/13/2023 11:00 AM EST Office Visit [facility] [address] [place] [phone] Johanna Patino MD [address] [place] [phone] [facility] Start: 03-10-2023 End: 03-10-2023 Patient encounter procedure [facility] Start: 02-24-2023 BP CONTROLLED (<130/80) BP CONTROLLED (<130/80) [facility] in Start: 02-16-2023 End: 02-16-2023 Patient encounter procedure 02/16/2023 1:30 PM EST Office Visit [address] [place] [address] Franck Lambert MD [address] [place] [address] [facility] Start: 02-09-2023 FUV, Provider: Franck Lambert, Status: Pen, Time: 12:15 PM FUV, Provider: Franck Lambert, Status: Pen, Time: 12:15 PM XS-[id number] na 100 Work Phone: Start: 02-09-2023 Patient encounter procedure [facility] Start: 01-15-2023 ANNUAL PCP TEAM CHRONIC DISEASE VISIT ANNUAL PCP TEAM CHRONIC DISEASE VISIT [facility] Start: 01-15-2023 Hemoglobin A1c measurement Diabetes: Hemoglobin A1C [facility] Start: 01-09-2023 End: 01-10-2024 Hypersensitivity Pneumonitis Panel Hypersensitivity Pneumonitis Panel Lab Routine ILD (interstitial lung disease) (CMS/HCC) Expected: 01/09/2023 (Approximate), Expires: 01/10/2024 [facility] Service Area Work Phone: Comment on above: Expected: 01/09/2023 (Approximate), Expi res: 01/10/2024 Start: 01-09-2023 End: 01-10-2024 Pulmonary function testing Pulmonary function testing PFT Routine Moderate persistent asthma without complication ILD (interstitial lung disease) ([facility]) Expected: 01/09/2023 (Approximate), Expires: 01/10/2024 [facility] Work Phone: Comment on above: Expected: 01/09/2023 (Approximate), Expi res: 01/10/2024 Start: 01-09-2023 End: 01-10-2024 Respiratory Allergy Profile IgE Respiratory Allergy Profile IgE Lab Routine Seasonal allergic rhinitis due to other allergic trigger Expected: 01/09/2023 (Approximate), Expires: 01/10/2024 [facility] Work Phone: Comment on above: Expected: 01/09/2023 (Approximate), Expi res: 01/10/2024 Start: 01-07-2023 ANNUAL PCP TEAM CHRONIC DISEASE VISIT ANNUAL PCP TEAM CHRONIC DISEASE VISIT [facility] Start: 12-30-2022 ANNUAL PCP TEAM CHRONIC DISEASE VISIT ANNUAL PCP TEAM CHRONIC DISEASE VISIT [facility] Start: 12-20-2022 Hemoglobin A1c/Hemoglobin.total in Blood HBA1C [facility] Start: 11-28-2022 COVID-19 Vaccine ( season) COVID-19 Vaccine ( season) [facility] Start: 11-28-2022 Influenza vaccination [facility] Start: 10-22-2022 ANNUAL PCP TEAM CHRONIC DISEASE VISIT ANNUAL PCP TEAM CHRONIC DISEASE VISIT [facility] Start: 10-14-2022 Glaucoma screening Dilated Retinal Exam [facility] Start: 10-14-2022 Hepatitis C antibody, confirmatory test DILATED RETINAL EXAM [facility] Start: 10-05-2022 Hemoglobin A1c/Hemoglobin.total in Blood HBA1C [facility] Start: 09-26-2022 Influenza vaccination INFLUENZA (#1) [facility] Comment on above: Postponed from 11/28/2021 (Declined at t his time) Start: 08-27-2022 ANNUAL PCP TEAM CHRONIC DISEASE VISIT ANNUAL PCP TEAM CHRONIC DISEASE VISIT [facility] Start: 08-21-2022 Lipid panel Lipid Panel [facility] Start: 08-04-2022 FUV, Provider: Franck Lambert, Status: Pen, Time: 12:00 PM FUV, Provider: Franck Lambert, Status: Pen, Time: 12:00 PM MZ-Kbvegdthbo-Astzo na 100 Work Phone: Start: 07-21-2022 ECHO, Provider: MARI HHVI ECHO 2,PORECHO2, Status: Pen, Time: 2:00 PM ECHO, Provider: MARI HHVI ECHO 2,PORECHO2, Status: Pen, Time: 2:00 PM YD-[id number]-Welds na 100 Work Phone: Start: 07-14-2022 End: 09-13-2022 25-hydroxyvitamin D3 [Mass/volume] in Serum or Plasma VITAMIN D 25 HYDROXY Lab Routine Vitamin D deficiency Encounter for long-term current use of medication Expected: 07/14/2022 (Approximate), Expires: 09/13/2022 [facility] Work Phone: Comment on above: Expected: 07/14/2022 (Approximate), Expi res: 09/13/2022 Start: 07-14-2022 End: 09-13-2022 CBC panel - Blood by Automated count CBC Lab Routine Essential hypertension Encounter for long-term current use of medication Expected: 07/14/2022 (Approximate), Expires: 09/13/2022 [facility] Work Phone: Comment on above: Expected: 07/14/2022 (Approximate), Expi res: 09/13/2022 Start: 07-14-2022 End: 09-13-2022 Cobalamin (Vitamin B12) [Mass/volume] in Serum or Plasma VITAMIN B12 BLOOD Lab Routine Encounter for long-term current use of medication Expected: 07/14/2022 (Approximate), Expires: 09/13/2022 [facility] Work Phone: Comment on above: Expected: 07/14/2022 (Approximate), Expi res: 09/13/2022 Start: 07-14-2022 End: 09-13-2022 Comprehensive metabolic 2000 panel - Serum or Plasma COMP METABOLIC PANEL Lab Routine Controlled type 2 diabetes mellitus without complication, without long-term current use of insulin (HCC) Essential hypertension Encounter for long-term current use of medication Expected: 07/14/2022 (Approximate), Expires: 09/13/2022 [facility] Work Phone: Comment on above: Expected: 07/14/2022 (Approximate), Expi res: 09/13/2022 Start: 07-14-2022 End: 09-13-2022 Ferritin [Mass/volume] in Serum or Plasma FERRITIN BLD Lab Routine Encounter for long-term current use of medication Expected: 07/14/2022 (Approximate), Expires: 09/13/2022 [facility] Work Phone: Comment on above: Expected: 07/14/2022 (Approximate), Expi res: 09/13/2022 Start: 07-14-2022 End: 09-13-2022 Hemoglobin A1c in Blood HGB A1C Lab Routine Controlled type 2 diabetes mellitus without complication, without long-term current use of insulin (HCC) Encounter for long-term current use of medication Expected: 07/14/2022 (Approximate), Expires: 09/13/2022 [facility] Work Phone: Comment on above: Expected: 07/14/2022 (Approximate), Expi res: 09/13/2022 Start: 07-14-2022 Hemoglobin A1c/Hemoglobin.total in Blood HBA1C [facility] Start: 07-14-2022 End: 09-13-2022 Iron and Iron binding capacity panel - Serum or Plasma IRON + TIBC Lab Routine Encounter for long-term current use of medication Expected: 07/14/2022 (Approximate), Expires: 09/13/2022 [facility] Work Phone: Comment on above: Expected: 07/14/2022 (Approximate), Expi res: 09/13/2022 Start: 07-14-2022 End: 09-13-2022 Lipid 1996 panel - Serum or Plasma LIPID PANEL BASIC Lab Routine Pure hypercholesterolemia Expected: 07/14/2022 (Approximate), Expires: 09/13/2022 [facility] Work Phone: Comment on above: Expected: 07/14/2022 (Approximate), Expi res: 09/13/2022 Start: 07-14-2022 End: 09-13-2022 Magnesium [Mass/volume] in Serum or Plasma MAGNESIUM BLD Lab Routine Encounter for long-term current use of medication Expected: 07/14/2022 (Approximate), Expires: 09/13/2022 [facility] Work Phone: Comment on above: Expected: 07/14/2022 (Approximate), Expi res: 09/13/2022 Start: 07-14-2022 End: 09-13-2022 Thyrotropin [Units/volume] in Serum or Plasma TSH BLD Lab Routine Encounter for long-term current use of medication Thyroid nodule Expected: 07/14/2022 (Approximate), Expires: 09/13/2022 [facility] Work Phone: Comment on above: Expected: 07/14/2022 (Approximate), Expi res: 09/13/2022 Start: 07-14-2022 End: 09-13-2022 Thyroxine (T4) free [Mass/volume] in Serum or Plasma T4 FREE/FREE THYROX Lab Routine Encounter for long-term current use of medication Thyroid nodule Expected: 07/14/2022 (Approximate), Expires: 09/13/2022 [facility] Work Phone: Comment on above: Expected: 07/14/2022 (Approximate), Expi res: 09/13/2022 Start: 07-14-2022 End: 09-13-2022 Triiodothyronine (T3) Free [Mass/volume] in Serum or Plasma T3 FREE BLD Lab Routine Encounter for long-term current use of medication Thyroid nodule Expected: 07/14/2022 (Approximate), Expires: 09/13/2022 [facility] Work Phone: Comment on above: Expected: 07/14/2022 (Approximate), Expi res: 09/13/2022 Start: 07-12-2022 Hepatitis B surface antibody level LDL CHOLESTEROL [facility] Start: 07-09-2022 ANNUAL PCP TEAM CHRONIC DISEASE VISIT ANNUAL PCP TEAM CHRONIC DISEASE VISIT [facility] Start: 07-03-2022 Hepatitis B screening URINE ALBUMIN:CREATININE RATIO [facility] Start: 04-18-2022 End: 06-18-2022 Lipid 1996 panel - Serum or Plasma LIPID PANEL BASIC Lab Routine Encounter for therapeutic drug monitoring Pure hypercholesterolemia Expected: 04/18/2022, Expires: 06/18/2022 [facility] Work Phone: Comment on above: Expected: 04/18/2022, Expires: 3 Start: 04-18-2022 End: 02-15-2023 LUNG DIFFUSION CAPACITY (DLCO) LUNG DIFFUSION CAPACITY (DLCO) PFT Routine ILD (interstitial lung disease) (HCC) Expected: 04/18/2022, Expires: 02/15/2023 [facility] Work Phone: Comment on above: Expected: 04/18/2022, Expires: 3 Start: 04-18-2022 End: 02-15-2023 LUNG VOLUMES LUNG VOLUMES PFT Routine ILD (interstitial lung disease) (HCC) Expected: 04/18/2022, Expires: 02/15/2023 [facility] Work Phone: Comment on above: Expected: 04/18/2022, Expires: 3 Start: 04-18-2022 End: 06-18-2022 Magnesium [Mass/volume] in Serum or Plasma MAGNESIUM BLD Lab Routine Encounter for therapeutic drug monitoring Expected: 04/18/2022, Expires: 06/18/2022 [facility] Work Phone: Comment on above: Expected: 04/18/2022, Expires: 3 Start: 04-18-2022 End: 02-15-2023 SPIROMETRY - BASELINE AND POST DILATOR SPIROMETRY - BASELINE AND POST DILATOR PFT Routine ILD (interstitial lung disease) (HCC) Expected: 04/18/2022, Expires: 02/15/2023 [facility] Work Phone: Comment on above: Expected: 04/18/2022, Expires: 3 Start: 04-14-2022 Patient encounter procedure [facility] Start: 03-30-2022 ADVANCE DIRECTIVE DISCUSSION ADVANCE DIRECTIVE DISCUSSION [facility] Start: 03-06-2022 ANNUAL PCP TEAM CHRONIC DISEASE VISIT ANNUAL PCP TEAM CHRONIC DISEASE VISIT [facility] Start: 02-27-2022 Hepatitis B surface antibody level LDL CHOLESTEROL [facility] Start: 02-25-2022 Patient encounter procedure Octavio Cutler Start: 01-22-2022 End: 03-24-2022 25-hydroxyvitamin D3 [Mass/volume] in Serum or Plasma VITAMIN D 25 HYDROXY Lab Routine Fatigue, unspecified type Vitamin D deficiency Expected: 01/22/2022 (Approximate), Expires: 03/24/2022 [facility] Work Phone: Comment on above: Expected: 01/22/2022 (Approximate), Expi res: 03/24/2022 Start: 01-22-2022 End: 03-24-2022 CBC panel - Blood by Automated count CBC Lab Routine Fatigue, unspecified type Essential hypertension Expected: 01/22/2022 (Approximate), Expires: 03/24/2022 [facility] Work Phone: Comment on above: Expected: 01/22/2022 (Approximate), Expi res: 03/24/2022 Start: 01-22-2022 End: 03-24-2022 Comprehensive metabolic 2000 panel - Serum or Plasma COMP METABOLIC PANEL Lab Routine Fatigue, unspecified type Type 2 diabetes mellitus with diabetic neuropathy, without long-term current use of insulin (HCC) Essential hypertension Diuretic-induced hypokalemia Expected: 01/22/2022 (Approximate), Expires: 03/24/2022 [facility] Work Phone: Comment on above: Expected: 01/22/2022 (Approximate), Expi res: 03/24/2022 Start: 01-22-2022 End: 03-24-2022 Hemoglobin A1c in Blood HGB A1C Lab Routine Fatigue, unspecified type Type 2 diabetes mellitus with diabetic neuropathy, without long-term current use of insulin (HCC) Expected: 01/22/2022 (Approximate), Expires: 03/24/2022 [facility] Work Phone: Comment on above: Expected: 01/22/2022 (Approximate), Expi res: 03/24/2022 Start: 01-22-2022 End: 03-24-2022 Thyrotropin [Units/volume] in Serum or Plasma TSH BLD Lab Routine Fatigue, unspecified type Expected: 01/22/2022 (Approximate), Expires: 03/24/2022 [facility] Work Phone: Comment on above: Expected: 01/22/2022 (Approximate), Expi res: 03/24/2022 Start: 01-22-2022 End: 03-24-2022 Thyroxine (T4) free [Mass/volume] in Serum or Plasma T4 FREE/FREE THYROX Lab Routine Fatigue, unspecified type Expected: 01/22/2022 (Approximate), Expires: 03/24/2022 [facility] Work Phone: Comment on above: Expected: 01/22/2022 (Approximate), Expi res: 03/24/2022 Start: 01-22-2022 End: 03-24-2022 Triiodothyronine (T3) Free [Mass/volume] in Serum or Plasma T3 FREE BLD Lab Routine Fatigue, unspecified type Expected: 01/22/2022 (Approximate), Expires: 03/24/2022 [facility] Work Phone: Comment on above: Expected: 01/22/2022 (Approximate), Expi res: 03/24/2022 Start: 01-14-2022 Patient encounter procedure [facility] Start: 01-02-2022 Hemoglobin A1c/Hemoglobin.total in Blood HBA1C [facility] Start: 12-13-2021 End: 02-12-2022 RANCHO BY IFA WITH REFLEX [facility] Work Phone: Comment on above: Expected: 12/13/2021, Expires: 2 Start: 12-13-2021 End: 02-12-2022 Cyclic citrullinated peptide IgG Ab [Units/volume] in Serum or Plasma [facility] Work Phone: Comment on above: Expected: 12/13/2021, Expires: 2 Start: 12-13-2021 End: 02-12-2022 Extractable nuclear Ab panel - Serum [facility] Work Phone: Comment on above: Expected: 12/13/2021, Expires: 2 Start: 12-10-2021 Patient encounter procedure Octavio Cutler Start: 11-28-2021 Influenza vaccination [facility] Start: 09-14-2021 COVID-19 Vaccine (2 - Moderna series) COVID-19 Vaccine (2 - Moderna series) [facility] Start: 08-21-2021 End: 08-21-2021 Sodium Chloride 0.9% IV Bolus. . ; SolutionIntraVenous Admin Rate = 140.85 mL/hrStop After 4 HoursClinician Notes: 1.5 mL/Kg/hourNotes from Pharmacy: DOSE Rate = 1.5 mL/kg/hr = 140.85 mL/hr. Start: 21-Aug-2021 End: 21-Aug-2021 Ordered: 21-Aug-2021 Franck Lambert Intent Comments: 1.5 mL/Kg/hour [facility] Comment on above: 1.5 mL/Kg/hour Start: 08-20-2021 End: 08-21-2022 [facility] Comment on above: IF patient HAS a secure IV access & is U nconscious, Conscious, NPO or Unable to Eat or Drink. Repeat until BG reaches 100 mg/dL or greater. Push 2-3 mL/minute. Discontinue Once BG reaches 100 mg/dL or greater. IF patient DOES NOT have secure IV access & is Unconscious, Conscious, NPO or Unable to Eat or Drink. Repeat until BG reaches 100 mg/dL or greater. Discontinue Once BG reaches 100 mg/dL or greater. Start: 08-20-2021 End: 08-21-2022 [facility] Comment on above: 1. Dilute 1.3 mL of activated DEFINITY w ith 8.7 mL of normal saline in a 10 mL syringe.2. Inject 0.5 mL of diluted DEFINITY when notified the images/film are unclear to enhance view of Left Ventricular borders.3. Repeat 0.5 mL of DEFINITY until clear images are obtained, not to exceed 10 mLs.4. Once images are obtained or limit of medication is reached, flush line with 10 mL of Normal Saline. Start: 08-20-2021 Cardiomyopathy Cardiomyopathy Date: 20-Aug-2021 [facility] Start: 08-20-2021 Chest pain Chest pain Date: 20-Aug-2021 [facility] Start: 08-17-2021 COVID-19 VACCINE (2 - Moderna series) COVID-19 VACCINE (2 - Moderna series) [facility] Start: 07-28-2021 Hemoglobin A1c/Hemoglobin.total in Blood HBA1C [facility] Start: 07-12-2021 3 comp foot exam completed DIABETIC FOOT EXAM [facility] Start: 07-12-2021 Diabetic foot examination Diabetic Foot Exam [facility] Start: 07-12-2021 HEPATITIS C SCREENING HEPATITIS C SCREENING [facility] Comment on above: Postponed from 1963 (Declined at t his time) Start: 06-25-2021 End: 08-25-2021 ALBUMIN/CREAT RATIO RND UR ALBUMIN/CREAT RATIO RND UR Lab Routine Type 2 diabetes mellitus with diabetic neuropathy, without long-term current use of insulin (HCC) Expected: 06/25/2021, Expires: 08/25/2021 [facility] Work Phone: Comment on above: Expected: 06/25/2021, Expires: 2 Start: 06-25-2021 End: 08-25-2021 Hemoglobin A1c/Hemoglobin.total in Blood HGB A1C Lab Routine Type 2 diabetes mellitus with diabetic neuropathy, without long-term current use of insulin (HCC) Expected: 06/25/2021, Expires: 08/25/2021 [facility] Work Phone: Comment on above: Expected: 06/25/2021, Expires: 2 Start: 06-25-2021 End: 08-25-2021 SCHEDULE LAB TESTING SCHEDULE LAB TESTING Lab Routine Expected: 06/25/2021, Expires: 08/25/2021 [facility] Work Phone: Comment on above: Expected: 06/25/2021, Expires: 2 Start: 05-22-2021 Hepatitis B screening URINE ALBUMIN:CREATININE RATIO [facility] Start: 01-01-2022 ADVANCE DIRECTIVE DISCUSSION ADVANCE DIRECTIVE DISCUSSION [facility] Start: 11-28-2020 Influenza vaccination INFLUENZA (#1) [facility] Start: 10-19-2020 Hepatitis C antibody, confirmatory test DILATED RETINAL EXAM [facility] Start: 2018 RSV High Risk: (Elderly (60+) or Population) (1 - 1-dose 75+ series) RSV High Risk: (Elderly (60+) or Population) (1 - 1-dose 75+ series) [facility] Start: 2018 RSV Vaccine (1 - 1-dose 75+ series) RSV Vaccine (1 - 1-dose 75+ series) [facility] Start: 2008 Screening for osteoporosis Bone Density Scan [facility] Start: 2003 Hepatitis B Vaccine (1 of 3 - Risk 3-dose series) Hepatitis B Vaccine (1 of 3 - Risk 3-dose series) [facility] Start: 2003 RSV patients and/or patients aged 60+ years (1 - 1-dose 60+ series) RSV patients and/or patients aged 60+ years (1 - 1-dose 60+ series) [facility] Start: 2003 RSV Vaccine (1 - 1-dose 60+ series) RSV Vaccine (1 - 1-dose 60+ series) [facility] Start: 1993 SHINGRIX VACCINE (1 of 2) SHINGRIX VACCINE (1 of 2) [facility] Start: 1993 Zoster Vaccines (1 of 2) Zoster Vaccines (1 of 2) [facility] Start: 1961 Anxiety Screening Anxiety Screening [facility] Start: 1961 BP CONTROLLED (<130/80) BP CONTROLLED (<130/80) [facility] Start: 1961 HEPATITIS C SCREENING HEPATITIS C SCREENING [facility] Start: 1961 Hepatitis C screening Hepatitis C Screening [facility] Start: 1953 Diabetic foot examination Diabetes: Foot Exam [facility] Start: 1953 Glaucoma screening Diabetes: Retinopathy Screening [facility] Start: 1948 COVID-19 VACCINE (1) COVID-19 VACCINE (1) [facility] Start: 1943 Medicare Annual Wellness Visit Medicare Annual Wellness Visit (AWV) [facility] Start: 1945 Screening for osteoporosis Bone Density Scan [facility] Bacteria identified in Urine by Culture URINE CULTURE Microbiology Routine Urinary frequency 07/31/2023 3:32 PM EDT [facility] End: 01-11-2024 Bacteria identified in Urine by Culture [facility] Work Phone: Comment on above: Once (Lab) for 1 Occurrences starting until 01/11/2024 End: 03-15-2024 Bacteria identified in Urine by Culture [facility] Work Phone: Comment on above: STAT (Lab) for 1 Occurrences starting until 03/15/2024 ECG 12 Lead ECG 12 Lead ECG Routine Premature atrial contractions 04/01/2024 11:56 AM EST [facility] Work Phone: Electrocardiogram, 12-lead PRN ACS symptoms Electrocardiogram, 12-lead PRN ACS symptoms ECG Routine As needed until discontinued starting 03/15/2024 [facility] Work Phone: Comment on above: As needed until discontinued starting End: 01-11-2024 Extra Urine Keith Tube [facility] Work Phone: Comment on above: Once for 1 Occurrences starting 01/11/20 until 01/11/2024 H/O: hysterectomy History of hysterectomy [facility] H/O: surgery History of thumb surgery [facility] History of cataract extraction Status post cataract extraction and insertion of intraocular lens [facility] History of cholecystectomy History of cholecystectomy [facility] History of placement of stent for coronary artery disease History of coronary artery stent placement [facility] Lipid 1996 panel - S marie or Plasma LIPID PANEL BASIC Lab Routine Encounter for therapeutic drug monitoring Pure hypercholesterolemia 04/11/2022 1:07 PM EST [facility] Work Phone: Lipoma of skin of abdomen Lipoma of skin of abdomen [facility] End: 10-12-2022 LUNG DIFFUSION CAPACITY (DLCO) LUNG DIFFUSION CAPACITY (DLCO) PFT Routine ILD (interstitial lung disease) (HCC) 1 Occurrences starting 09/12/2021 until 10/12/2022 [facility] Work Phone: Comment on above: 1 Occurrences starting 09/12/2021 until 10/12/2022 LUNG DIFFUSION CAPAC ITY (DLCO) LUNG DIFFUSION CAPACITY (DLCO) PFT Routine ILD (interstitial lung disease) (HCC) 04/21/2022 1:07 PM [facility] Work Phone: End: 11-27-2023 LUNG DIFFUSION CAPACITY (DLCO) LUNG DIFFUSION CAPACITY (DLCO) PFT Routine IPF (idiopathic pulmonary fibrosis) (HCC) 1 Occurrences starting 10/28/2022 until 11/27/2023 [facility] Work Phone: Comment on above: 1 Occurrences starting 10/28/2022 until 11/27/2023 End: 10-12-2022 LUNG VOLUMES LUNG VOLUMES PFT Routine ILD (interstitial lung disease) ([facility]) 1 Occurrences starting 09/12/2021 until 10/12/2022 [facility] Work Phone: Comment on above: 1 Occurrences starting 09/12/2021 until 10/12/2022 LUNG VOLUMES LUNG VOLUMES PFT Routine ILD (interstitial lung disease) ([facility]) 04/21/2022 1:07 PM [facility] Work Phone: End: 11-27-2023 LUNG VOLUMES LUNG VOLUMES PFT Routine IPF (idiopathic pulmonary fibrosis) ([facility]) 1 Occurrences starting 10/28/2022 until 11/27/2023 [facility] Work Phone: Comment on above: 1 Occurrences starting 10/28/2022 until 11/27/2023 Magnesium [Mass/volu me] in Serum or Plasma MAGNESIUM BLD Lab Routine Encounter for therapeutic drug monitoring 04/11/2022 1:07 PM [facility] Work Phone: End: 03-15-2024 Noninvasive Ventilation Patient to use: At night; Mode: CPAP; Ventilation type: Auto Titrating (.); Auto-titrating range: 10-14 Noninvasive Ventilation Patient to use: At night; Mode: CPAP; Ventilation type: Auto Titrating (.); Auto-titrating range: 10-14 Respiratory Care Routine Continuous until discontinued starting 03/15/2024 [facility] Work Phone: Comment on above: Continuous until discontinued starting 1 05/16/2023 OXIMETRY - NOCTURNAL OXIMETRY - NOCTURNAL Procedures Routine ILD (interstitial lung disease) (HCC) Ordered: 09/12/2021 [facility] Work Phone: Comment on above: Ordered: 09/12/2021 End: 01-19-2023 Pulmonary function testing [facility] Work Phone: Comment on above: Once for 1 Occurrences starting 01/20/20 until 01/19/2023 End: 01-04-2024 Radex spine thoracic 2 views XR THORACIC LIMITED 2V AP/LAT Radiology Routine Chronic midline thoracic back pain 1 Occurrences starting 12/05/2022 until 01/04/2024 [facility] Work Phone: Comment on above: 1 Occurrences starting 12/05/2022 until 01/04/2024 Radex spine thoracic 2 views XR THORACIC LIMITED 2V AP/LAT Radiology Routine Chronic midline thoracic back pain 12/05/2022 4:27 PM EDT [facility] Work Phone: SPIROMETRY - BASELIN E AND POST DILATOR SPIROMETRY - BASELINE AND POST DILATOR PFT Routine ILD (interstitial lung disease) ([facility]) 04/21/2022 1:07 PM EST [facility] Work Phone: End: 10-12-2022 SPIROMETRY BASELINE ONLY SPIROMETRY BASELINE ONLY PFT Routine ILD (interstitial lung disease) ([facility]) 1 Occurrences starting 09/12/2021 until 10/12/2022 [facility] Work Phone: Comment on above: 1 Occurrences starting 09/12/2021 until 10/12/2022 End: 11-27-2023 SPIROMETRY WITH DILATOR IF OBSTRUCTED SPIROMETRY WITH DILATOR IF OBSTRUCTED PFT Routine IPF (idiopathic pulmonary fibrosis) ([facility]) 1 Occurrences starting 10/28/2022 until 11/27/2023 [facility] Work Phone: Comment on above: 1 Occurrences starting 10/28/2022 until 11/27/2023 UA DIP B/O UA DIP B/O Lab R outine Acute cystitis without hematuria Ordered: 12/05/2022 [facility] Work Phone: Comment on above: Ordered: 12/05/2022 UA DIP B/O UA DIP B/O Lab R outine Urinary frequency Ordered: 07/31/2023 [facility] Comment on above: Ordered: 07/31/2023 UA DIP B/O UA DIP B/O Lab R outine Urinary frequency Ordered: 03/08/2024 [facility] Work Phone: Comment on above: Ordered: 03/08/2024 UA DIP B/O UA DIP B/O Lab R outine Acute UTI Ordered: 08/29/2024 [facility] Work Phone: Comment on above: Ordered: 08/29/2024 End: 01-11-2024 Urinalysis complete W Reflex Culture panel - Urine [facility] Service Area Work Phone: Comment on above: STAT (Lab) for 1 Occurrences starting until 01/11/2024 End: 06-03-2024 Us soft tissue head & neck real time imge docm US THYROID/PARATHYROID Radiology Routine Thyroid nodule 1 Occurrences starting 05/05/2023 until 06/03/2024 [facility] Work Phone: Comment on above: 1 Occurrences starting 05/05/2023 until 06/03/2024 US Thyroid gland US THYROID/PARA THYROID Radiology Routine Thyroid nodule 05/18/2023 11:37 AM EST [facility] Work Phone: End: 08-05-2025 US Thyroid gland US THYROID/PARATHYROID Radiology Routine Thyroid nodule 1 Occurrences starting 07/06/2024 until 08/05/2025 [facility] Work Phone: Comment on above: 1 Occurrences starting 07/06/2024 until 08/05/2025 US Thyroid gland US THYROID/PARA THYROID Radiology Routine Thyroid nodule 07/13/2024 2:09 PM EDT [facility] Work Phone: US.doppler Carotid arteries - bilateral Vascular US Carotid Artery Duplex Bilateral Vascular Ultrasound Routine Shortness of breath on exertion Essential hypertension Bilateral carotid bruits 09/14/2023 1:26 PM EDT [facility] Work Phone: End: 03-08-2024 XR Chest 2 Views [facility] Work Phone: Comment on above: Once for 1 Occurrences starting 03/08/20 24 until 03[facility]08/2024 [facility] Immunizations Immunization Date Immunization Notes Care Provider Omar pa 07-20-2021 Moderna COVID-19 Vac cine 100 MCG/0.5ML Intramuscular Suspension Kristy Brower Work Phone: [id number] Work Phone: 05-31-2019 pneumococcal polysaccharide vaccine, 23 valent Kristy Brower MD Work Phone: [facility] 09-24-2018 tetanus toxoid, redu marta diphtheria toxoid, and acellular pertussis vaccine, adsorbed Kristy Brower MD Work Phone: [facility] 01-29-2018 influenza, high dose seasonal, preservative-free Kristy Brower MD Work Phone: [facility] 01-29-2018 influenza virus vacc ine, unspecified formulation Kristy Brower MD Work Phone: [facility] 05-27-2017 pneumococcal conjuga te vaccine, 13 valent Kristy Brower MD Work Phone: [facility] Work Phone: 04-27-2017 influenza, high dose seasonal, preservative-free Kristy Brower MD Work Phone: [facility] 02-23-2009 pneumococcal polysaccharide vaccine, 23 valent Kristy Brower MD Work Phone: [facility] 08-13-2001 tetanus and diphther ia toxoids, adsorbed, preservative free, for adult use (2 Lf of tetanus toxoid and 2 Lf of diphtheria toxoid) Kristy Brower MD Work Phone: [facility] Work Phone: 1945 pneumococcal conjuga te vaccine, 7 valent [facility] Payers Date Payer Category Payer Self-pay 2022 Medicare [employer] [id number] 2022-Present [address] [place] [address] [id number] 2022 Medicare (Managed Care) 1.2. [id number] 2022 Unknown [id number] 2019 Unknown 2019 Unknown ANTHEM BLUE CROS S AND BLUE SHIELD ANTHEM MEDIBLUE ACCESS [id number] 2019-Present [phone] [address] [place] [address] PPO [id number] [id number] 2016 Unknown [id number] 1943 Unknown [id number] 2.16.840.1.701920.3.579. 2.1068 1943 Unknown [id number] 2.16.840.1.377981.3.579. 2.1068 1943 Unknown [id number] 2.16.840.1.225794.3.579. 2.9 1943 Unknown [id number] 2.16.840.1.032330.3.579. 2.1068 1943 Unknown [id number] 2.16.840.1.369410.3.579. 2.1069 1943 Unknown [id number] 2.16.840.1.568001.3.579. 2.5 1943 Unknown [id number] 2.16.840.1.297251.3.579. 2.4 1943 Unknown [id number] 2.16.840.1.883575.3.579. 2.1243 1943 Unknown [id number] 2.16.840.1.142446.3.579. 2.1243 1943 Unknown [id number] 2.16.840.1.625515.3.579. 2.1242 1943 Unknown [id number] 2.16.840.1.604139.3.579. 2.1242 1943 Unknown [id number] 2.16.840.1.923380.3.579. 2.1242 1943 Unknown [id number] 2.16.840.1.962793.3.579. 2.1242 1943 Unknown [id number] 2.16.840.1.618440.3.579. 2.1242 1943 Unknown [id number] 2.16.840.1.665511.3.579. 2.1242 1943 Unknown [id number] 2.16.840.1.210224.3.579. 2.1242 1943 Unknown [id number] 2.16.840.1.564266.3.579. 2.1241 1943 Unknown [id number] 2.16.840.1.363550.3.579. 2.1242 1943 Unknown [id number] 2.16.840.1.437426.3.579. 2.1242 1943 Unknown [id number] 2.16.840.1.595377.3.579. 2.1242 1943 Unknown [id number] 2.16.840.1.988923.3.579. 2.1243 1943 Unknown [id number] 2.16.840.1.930603.3.579. 2.1243 1943 Unknown [id number] 2.16.840.1.061451.3.579. 2.1243 1943 Unknown [id number] 2.16.840.1.271623.3.579. 2.1243 Unknown [id number] 2.16.840.1.772579.3.579. 2.462 Unknown [id number] 2.16.840.1.175065.3.579. 2.462 Unknown [id number] 2.16.840.1.779987.3.579. 2.462 Unknown [id number] 2.16.840.1.005094.3.579. 2.462 Unknown [id number] 2.16.840.1.384230.3.579. 2.462 Unknown [id number] 2.16.840.1.406016.3.579. 2.462 Unknown [id number] 2.16.840.1.747133.3.579. 2.462 Unknown [id number] 2.16.840.1.022646.3.579. 2.462 Social History Date Type Detail Facility Assertion Tobacco smoking consumption unknown (finding) [id number] Work Phone: Start: 12-10-2021 Tobacco smokin g consumption unknown [facility] Start: 02-22-2016 End: 07-23-2023 Tobacco smoking status NHIS Ex-smoker [facility] Start: 02-21-1963 End: 03-30-1972 History of tobacco use Current smoker [facility] Start: 02-21-1963 End: 03-30-1972 History of tobacco use Cigarette Smoker [facility] Start: 05-13-2021 End: 11-15-2024 Alcohol intake Current non-drinker of alcohol (finding) [facility] Start: 11-14-2019 End: 07-03-2021 History SDOH Alcohol Frequency 1 [facility] Start: 01-23-2020 End: 07-03-2021 History SDOH Alcohol Std Drinks 98 [facility] Start: 01-23-2020 End: 03-22-2022 History SDOH Social Connections Phone 3 [facility] Start: 08-12-2019 End: 01-23-2020 History SDOH Social Connections Meetings 2 [facility] Start: 08-12-2019 History SDOH Social Connections Living 4 [facility] Start: 08-12-2019 History SDOH Physica l Activity DPW 0 [facility] Start: 08-12-2019 Education 9 [facility] Start: 02-22-2016 End: 12-30-2021 Tobacco Comment Mother smoked in childhood home, spouse of 45 years also smoked in home. [facility] Start: 1945 Sex Assigned At Female [facility] Start: 06-12-2020 End: 08-04-2024 Exposure to SARS-CoV-2 (event) Not sure [facility] Start: 08-18-2021 End: 08-28-2021 Exposure to SARS-CoV-2 (event) Unable to assess [facility] Start: 02-22-2016 End: 03-16-2024 Cigarettes smoked current (pack per day) - Reported 1 [facility] Start: 02-22-2016 End: 07-23-2023 Tobacco use and exposure Smokeless tobacco non-user [facility] Work Phone: Start: 03-22-2022 End: 03-16-2024 Social connection and isolation panel [facility] Start: 02-29-2012 End: 02-22-2022 In a typical week, how many times do you talk on the telephone with family, friends, or neighbors? Patient refused [facility] Are you now , , , , never or living with a partner? Refused [facility] (I/We) worried whether (my/our) food would run out before (I/we) got money to buy more. DK or Refused [facility] Start: 12-21-2018 Gender identity Identifies as female gender (finding) [facility] Start: 10-29-2019 Sexual orientation Heterosexual (fin momo) [facility] Start: 1945 Sex Assigned At Not on file [facility] Work Phone: Are you now , , , , never or living with a partner? [facility] Start: 07-23-2023 End: 09-12-2024 Alcoholic beverage intake Lifetime non-drinker (finding) [facility] Work Phone: How often to you hav e a drink containing alcohol? Never [facility] How hard is it for you to pay for the very basics like food, housing, medical care, and heating Not very hard [facility] Do you feel stress - tense, restless, nervous, or anxious, or unable to sleep at night because your mind is troubled all the time - these days [OSQ] Not at all [facility] (I/We) worried whether (my/our) food would run out before (I/we) got money to buy more. Never true [facility] Has the [employer] gas, oil, or water [employer] threatened to shut off services in your home in past 12Mo No [facility] NEGATED: Highlighted rowStart: NINF History of tobacco use Passive smoker [facility] Work Phone: Medical Equipment Procedure Code Equipment Code Equipment Original Text Equipment Identifier Dates [id number], [id number], [id number], [id number], [id number], [id number] Start: 11-03-2018 End: 10-27-2023 Comment on above: Test blood sugar(s) 2 times daily and as needed for symptoms of high or low sugars. Dx: Type 2 DM - Controlled E11.9 Insulin: No. Labile sugars that sometimes drop low so needs to check at least twice daily (taking glipizide) Test blood sugar(s) 2 times daily and as needed. To go with lancet pen with glucometer Dx: Type 2 DM - Controlled E11.9 Insulin: No Goals Date Patient Goal Desired Activity /State Functional Status Date Assessment Result Facility 10-31-2014 Are you deaf, or do you have serious difficulty hearing No 10/31/2014 9:01 AM Madisyn Youssef RN No [facility] 10-31-2014 Are you blind, or do you have serious difficulty seeing, even when wearing glasses No 10/31/2014 9:01 AM Madisyn Youssef RN No [facility] 10-31-2014 Do you have serious difficulty walking or climbing stairs Yes 10/31/2014 9:01 AM Madisyn Youssef RN Yes [facility] 10-31-2014 Do you have difficul ty dressing or bathing No 10/31/2014 9:01 AM Madisyn Youssef RN No [facility] 10-31-2014 Because of a physica l, mental, or emotional condition, do you have difficulty doing errands alone such as visiting a physician's office or shopping No 10/31/2014 9:01 AM Madisyn Youssef RN No [facility] Functional observable [facility] NEGATED: Highlighted row Functional performance Functional status health issues are not documented Disease [id number] a Work Phone: Mental Status Date Assessment Result Facility 08-22-2021 Cognitive functi ons [id number] [facility] 10-31-2014 Because of a physical, mental, or emotional condition, do you have serious difficulty concentrating, remembering, or making decisions No 10/31/2014 9:01 AM Madisyn Youssef RN No [facility] NEGATED: Highlighted row Cognitive function [Interpretation] Cognitive status health issues are not documented Disease [id number] a Work Phone: Clinical Notes 05-27-2019 to 12-05-2024 Franck Lambert MD - 12/05/2024 1:30 PM EDTPatient InstructionsTelephone Encounter - Tika Mistry RN - 11/15/2024 12:23 PM EDTTelephone Encounter - Tika Mistry RN - 11/15/2024 12:23 PM EDT Note Date & Type Note Facility 12-05-2024 History of Present illness Narrative Counseling: The patient was counseled regarding diagnostic results, instructions for management, risk factor reductions, prognosis, patient and family education, impressions, risks and benefits of treatment options and importance of compliance with treatment. Chief Complaint: The patient presents today for evaluation of palpitations. History Of Present Illness: Whitney Ruiz is an 79 year old female patient who presents today for evaluation of palpitations. Her PMH is significant for pulmonary fibrosis, EMY (CPAP), mild CAD, dyslipidemia, HTN, palpitations, thyroid nodule, DM type 2, GERD, diaphragmatic hernia, and asthma. Today, the patient reports persistent, frequent, short-lasting episodes of palpitations described as a fluttering sensation. She also reports fatigue. BP is slightly elevated today. The patient is compliant with her prescribed medications. Last Recorded Vitals: Vitals: 12/05/24 1455 BP: 140/80 Pulse: 75 Past Surgical History: She has a past surgical history that includes Cardiac catheterization; Lung biopsy; and Bronchoscopy. Social History: She reports that she quit smoking about 53 years ago. Her smoking use included cigarettes. She started smoking about 60 years ago. She has a 3.5 pack-year smoking history. She has never been exposed to tobacco smoke. She has never used smokeless tobacco. She reports that she does not drink alcohol and does not use drugs. Family History: No family history on file. Allergies: Acetaminophen, Amlodipine, Amoxicillin, Amoxicillin-pot clavulanate, Carvedilol, Ciprofloxacin, Clarithromycin, Clavulanic acid, Clonidine, Codeine, Dicyclomine, Diltiazem, Diltiazem hcl, Doxycycline, Doxylamine, Duloxetine, Guaifenesin, Guaifenesin-sodium citrate, Hydrocodone, Hydrocodone-acetaminophen, Iodinated contrast media, Iopromide, Levofloxacin, Losartan, Lovastatin, Meloxicam, Metronidazole, Morphine, Nifedipine, Rosuvastatin, Sulfabenzamide, Sulfamethoxazole, Trimethoprim, Valsartan, Adhesive, Adhesive tape-silicones, and Sulfa (sulfonamide antibiotics) Outpatient Medications: Current Outpatient Medications Medication Instructions acetaminophen (TYLENOL) 1,000 mg, Daily PRN albuterol 90 mcg/actuation inhaler 1 puff, Every 4 hours PRN aspirin 81 mg capsule 1 tablet, Daily azelastine (Astelin) 137 mcg (0.1 %) nasal spray 1 spray, Each Nostril, 2 times daily, Use in each nostril as directed bisoprolol (ZEBETA) 5 mg, oral, Daily blood sugar diagnostic (Blood Glucose Test) strip Test blood sugar(s) 2 times daily and as needed for symptoms of high or low sugars. Dx: Type 2 DM - Controlled E11.9 Insulin: No. Labile sugars that sometimes drop low so needs to check at least twice daily (taking glipizide) cetirizine (ZYRTEC) 5 mg, oral, Daily cholecalciferol (VITAMIN D-3) 125 mcg, Daily cyanocobalamin (VITAMIN B-12) 500 mcg, Every other day famotidine (Pepcid) 40 mg tablet TAKE 1 TABLET BY MOUTH DAILY before bedtime fluticasone (Flonase) 50 mcg/actuation nasal spray 1-2 sprays FreeStyle Alex 2 Sensor kit CHANGE SENSOR EVERY 2 WEEKS Gas Relief Extra Strength 125 mg, Every 6 hours PRN L. acidophilus/Bifid. animalis 15.5 billion cell capsule Take by mouth. lisinopril 20 mg, oral, Daily (0630) montelukast (SINGULAIR) 10 mg, oral, Nightly naphazoline-glycerin (Clear Eyes Redness Relief) 0.012-0.2 % drops 1 Application, As needed nystatin (Mycostatin) 100,000 unit/mL suspension omeprazole (PRILOSEC) 20 mg, Daily OneTouch Delica Plus Lancet 30 gauge misc use to test BLOOD SUGAR TWICE DAILY NEEDED torsemide (DEMADEX) 10 mg, Daily PRN triamcinolone (Kenalog) 0.1 % cream Twice daily to affected areas for 1-2 weeks, then weekends only. Repeat every few months for flares. Review of Systems Constitutional: Positive for malaise/fatigue. Cardiovascular: Positive for palpitations. All other systems reviewed and are negative. Physical Exam: Constitutional: Appearance: Healthy appearance. Not in distress. Neck: Vascular: Carotid bruit present. No JVR. JVD normal. Pulmonary: Effort: Pulmonary effort is normal. Breath sounds: Normal breath sounds. No wheezing. No rhonchi. No rales. Chest: Chest wall: Not tender to palpatation. Cardiovascular: PMI at left midclavicular line. Normal rate. Regular rhythm. Normal S1. Normal S2. Murmurs: There is no murmur. No gallop. No click. No rub. Pulses: Intact distal pulses. Edema: Peripheral edema absent. Abdominal: General: Bowel sounds are normal. Palpations: Abdomen is soft. Tenderness: There is no abdominal tenderness. Musculoskeletal: Normal range of motion. General: No tenderness. Skin: General: Skin is warm and dry. Neurological: General: No focal deficit present. Mental Status: Alert and oriented to person, place and time. Last Labs: CBC - Lab Results Component Value Date WBC 8.9 03/15/2024 HGB 13.2 03/15/2024 HCT 41.1 03/15/2024 MCV 91 03/15/2024 PLT 285 03/15/2024 CMP - Lab Results Component Value Date CALCIUM 9.0 03/17/2024 PHOS 3.4 08/21/2021 PROT 6.3 (L) 03/15/2024 ALBUMIN 3.9 03/15/2024 AST 13 03/15/2024 ALT 8 03/15/2024 ALKPHOS 56 03/15/2024 BILITOT 0.5 03/15/2024 LIPID PANEL - Lab Results Component Value Date CHOL 217 (H) 08/21/2021 TRIG 102 08/21/2021 HDL 41.5 08/21/2021 CHHDL 5.2 (A) 08/21/2021 LDLF 155 (H) 08/21/2021 VLDL 20 08/21/2021 RENAL FUNCTION PANEL - Lab Results Component Value Date GLUCOSE 114 (H) 03/17/2024 NA 141 03/17/2024 K 3.8 03/17/2024 CL 109 (H) 03/17/2024 CO2 25 03/17/2024 ANIONGAP 11 03/17/2024 BUN 12 03/17/2024 CREATININE 0.52 03/17/2024 CALCIUM 9.0 03/17/2024 PHOS 3.4 08/21/2021 ALBUMIN 3.9 03/15/2024 Lab Results Component Value Date BNP 240 (H) 03/15/2024 HGBA1C 6.6 (H) 05/25/2024 Last Cardiology Tests: 04/15/2024 - HR CT Chest 1. Basal and subpleural predominant reticulations with traction bronchiectasis/bronchiolectasis and honeycombing, consistent with 'Typical UIP' pattern of pulmonary fibrosis*. Findings are intervally progressed since 2018. 2. Cardiomegaly with left atrial enlargement. Correlate with echocardiography. 3. Sequelae of prior granulomatous disease. 4. Severe coronary artery calcifications. 04/01/2024 to 04/15/2024 - Holter Monitor 1. Predominant underlying rhythm was sinus rhythm; min HR 46 bpm, max HR 226 bpm, avg HR 61 bpm. 2. 1 run of ventricular tachycardia; 6 beats, max rate 226 bpm, avg 186 bpm. 3. 48 supraventricular tachycardia runs occurred; fastest interval lasting 5 beats with max rate 171 bpm, longest lasting 14 beats with avg rate 105 bpm. 4. Isolated SVEs were rare, SVE couplets were rare, and SVE triplets were rare. 5. Isolated VEs were rare, and no VE couplets or VE triplets were present. 09/29/2023 - TTE 1. The left ventricular systolic function is normal, with a visually estimated ejection fraction of 65%. 2. Left ventricular diastolic filling was indeterminate. 3. There is normal right ventricular global systolic function. 4. Calcified mitral annulus and leaflets; with localized calcified nodule in the posterior leaflet of the mitral valve. 5. No significant changes compared to prior echocardiogram dated 07/21/2022. 09/14/2023 - Vascular Lab Carotid Artery Duplex 1. Right Carotid: Findings are consistent with less than 50% stenosis of the right proximal internal carotid artery. The right proximal internal carotid artery is normal. Right external carotid artery appears patent with no evidence of stenosis. No evidence of hemodynamically significant stenosis of the right common carotid artery. The right vertebral artery is patent with antegrade flow. No evidence of hemodynamically significant stenosis in the right subclavian artery. 2. Left Carotid: Findings are consistent with less than 50% stenosis of the left proximal internal carotid artery. The left proximal internal carotid artery is normal. Left external carotid artery appears patent with no evidence of stenosis. No evidence of hemodynamically significant stenosis of the left common carotid artery. The left vertebral artery is patent with antegrade flow. No evidence of hemodynamically significant stenosis in the left subclavian artery. 07/21/2022 - TTE 1. Left ventricular systolic function is normal with a 60-65% estimated ejection fraction. 2. Spectral Doppler shows an impaired relaxation pattern of left ventricular diastolic filling. 3. The left atrium is moderately dilated. 4. There is moderate mitral annular calcification. 07/03/2022 to 07/17/2022 - Holter Monitor 1. Predominant underlying rhythm was sinus rhythm; min HR 43 bpm, max HR 167 bpm, avg HR 56 bpm. 2. One run of ventricular tachycardia; 5 beats, max rate 132 bpm. 3. 45 supraventricular tachycardia runs. 08/21/2021 - Cardiac Catheterization (LH/RH) 1. Mild, non-obstructive coronary artery disease in right-dominant circulation. 2. Elevated right-sided filling pressure. 3. Normal left-sided filling pressure and pulmonary pressure. 4. No gradient on pull-back to suggest aortic stenosis. 5. Preserved CO/CI by assumed Lisset method. 08/21/2021 - CTA Chest for PE 1. No evidence of acute pulmonary embolism. 2. Worsening interstitial abnormality likely at least in part related to lower lung volumes. HRCT pattern of pulmonary fibrosis. 07/06/2020 - Cardiac Catheterization (LH) 1. Moderate non-obstructive coronary artery disease. 2. The right posterior descending artery showed moderate atherosclerotic disease. 3. Elevated LV filling pressures. 4. Left Ventricular end-diastolic pressure = 21. Lab review: I have personally reviewed the laboratory result(s). Assessment/Plan 1) Mild CAD On ASA 81 mg daily, lisinopril 20 mg daily, torsemide 10 mg p.r.n. Metoprolol previously discontinued s/t bradycardia [facility] 08/21/2021 with mild non-obstructive CAD Holter 07/03/2022 to 07/17/2022 with 1 run of ventricular tachycardia, 45 runs of SVT, ventricular bigeminy TTE 09/29/2023 with LVEF 65%, normal RV systolic function, calcified mitral annulus and leaflets with localized calcified nodule in the posterior leaflet of the mitral valve. Hospital admission 03/15/2024 to 03/17/2024 with syncope, pneumonia and mild diverticulitis. HR CT chest 04/15/2024 with basal and subpleural predominant reticulations with traction bronchiectasis/bronchiolectasis and honeycombing consistent with Typical UIP pattern of pulmonary fibrosis (intervally progressed since 2018), cardiomegaly with left atrial enlargement, sequelae of prior granulomatous disease, severe coronary artery calcifications. Continue current medical Rx 2) Pulmonary Fibrosis Seen on CTA 08/21/2021 Compliant with CPAP HR CT chest 04/15/2024 with basal and subpleural predominant reticulations with traction bronchiectasis/bronchiolectasis and honeycombing consistent with Typical UIP pattern of pulmonary fibrosis (intervally progressed since 2018), sequelae of prior granulomatous disease. Reports persistent SOB Scheduled with pulmonary fibrosis specialist this month Reports left sternal pain with reproducible tenderness - likely s/t costochondritis/arthritis Recommend f/u with PCP re: rheumatology referral (?arthritis contributing to fibrosis) 3) HTN On lisinopril 20 mg daily, torsemide 10 mg p.r.n. Amlodipine caused LE edema in the past Metoprolol previously discontinued s/t bradycardia BP slightly elevated today Start bisoprolol 5 mg daily for palpations and elevated BP Continue all other medications as prescribed F/U 1 month 4) BLE Edema On torsemide 10 mg daily p.r.n. Occurs after prolonged sitting Compression stockings Stable Continue current medical Rx 5) Dyslipidemia Lipid panel 03/24/2023 with elevated total cholesterol and LDL of 213 and 152 respectively Advised on aggressive secondary risk factor modification 6) Carotid Bruit Carotid duplex 09/14/2023 with <50% stenosis bilaterally 7) Syncope - Palpitations Hospital admission 03/15/2024 to 03/17/2024 after having a syncopal episode Found to be bradycardic Reports persistent, frequent, short-lasting episodes of palpitations/fluttering Reports fatigue Start bisoprolol 5 mg daily F/U 1 month Scribe Attestation By signing my name below, I, Keyonna Bolton, Damiane, attest that this documentation has been prepared under the direction and in the presence of Franck Lambert MD. documented in this encounter [facility] Work Phone: 12-05-2024 Instructions Keyonna Bolton - 12/05/2024 1:30 PM EDT Start bisoprolol 5 mg daily in the evening. A prescription has been sent to your pharmacy. Continue all other medications as prescribed. Followup with Dr. Lambert in 1 month. If you have any questions or cardiac concerns, please call our office at [phone]. documented in this encounter [facility] Work Phone: 11-15-2024 Telephone encounter Note Patient calling with concern for intermittent mild/moderate abdominal pain for the past 2 weeks. Reports intermittent constipation and indigestion as well. Having no pain during time of this call. No fever. No severe sx's at this time. Same day appt made with Dr. Brower to discuss pt concerns. Pt aware to proceed to ER for any severe sx's as discussed. Tika Mistry RN [facility] 11-15-2024 Miscellaneous Notes Patient calling with concern for intermittent mild/moderate abdominal pain for the past 2 weeks. Reports intermittent constipation and indigestion as well. Having no pain during time of this call. No fever. No severe sx's at this time. Same day appt made with Dr. Brower to discuss pt concerns. Pt aware to proceed to ER for any severe sx's as discussed. Tika Mistry RN documented in this encounter [facility] 09-21-2024 History of Present illness Narrative This note was created using AISriter. Subjective Arlette Ruiz is a 79-year-old female with a history of fibromyalgia, presenting for evaluation of chronic right ear pain, cephalalgia, and back pain. Arlette reports chronic right ear pain and cephalalgia, primarily localized to the right side of the head, with occasional pain in the left hinduism. The pain is described as being underneath the mastoid and through the ear, and occurs almost daily. She notes that the pain was not present yesterday, but recurred upon waking this morning. The pain is exacerbated by rubbing the affected area, which elicits a sharp pain. She has not identified any specific triggers or consistent alleviating factors for the pain, though she has found some relief with the application of a steam bag to the ears and heat therapy. She denies pain with mastication. Arlette also reports a recent onset of a boom sound in her neck when turning her head, distinct from previous experiences of snap, crackle, and pop sounds. This new sound occurs frequently and is described as more pronounced and concerning. She denies any improvement in symptoms following this sound and expresses apprehension about it. Additionally, Arlette reports worsening back pain, which she describes as feeling connected to her spine and ribs. She has been using heat therapy and topical treatments for relief. She has not yet undergone formal physical therapy, deep ultrasound, or dry needling for these symptoms. She has not tried the prescribed tizanidine 2 mg, which was intended for muscle spasms and back pain. Arlette has a history of fibromyalgia, though she does not recall the specific date of diagnosis. She reports increased neuropathy symptoms in her feet. She also notes a recent cessation of verapamil and Carafate, and plans to resume taking a multivitamin. She is currently using a SP3Hyle Alex for glucose monitoring and an AutoPAP device, which she dislikes but continues to use. She reports worsening allergy symptoms and a malodorous urine. PAST MEDICAL HISTORY Diagnosis Date CAD (coronary artery disease) 04/16/2012 70-80% LAD --had stent placed 09/07/14 Depressive disorder, not elsewhere classified Diverticulitis of colon with hemorrhage 2001 DM w/o Complication Type II 04/05/2009 GERD (gastroesophageal reflux disease) Hiatal hernia Hypertension 03/30/1988 IPF (idiopathic pulmonary fibrosis) ([facility]) Irritable bowel syndrome Occipital neuralgia Osteoarthritis 06/27/2011 Other chronic sinusitis Other osteoporosis Post-nasal drip Situational depression 12/27/2014 Sleep apnea 03/30/1996 Statin intolerance 12/24/2016 SVT (supraventricular tachycardia) ([facility]) 10/02/2018 Thoracic aortic aneurysm [address] chest (2014, 2013)--July 09, [address] Unspecified essential hypertension Patient has had since age 33 Vitamin D Deficiency 04/18/2009 Current Outpatient Medications Medication Sig famotidine (PEPCID) 40 mg tablet Take 1 tablet by mouth once daily. tiZANidine (ZANAFLEX) 2 mg tablet Take 1 tablet by mouth every 8 hours as needed. flash glucose sensor (FREESTYLE ALEX 2 SENSOR) kit 1 Each every 2 weeks. E11.9 DM type 2, Insulin: No lisinopril (ZESTRIL) 5 mg tablet Take 1 tablet by mouth once daily. azelastine 0.1% nasal spray Use 1 Coleman in each nostril two times a day. CPAP Continue settings of Auto PAP to 5-15 cm of water with humidification. Continue orders for: Mask (per patient preference) optional chin strap (if indicated) , filters, tubing, humidifier and lifetime supplies. potassium chloride (K-TAB) 10 mEq tablet Take 1 tablet by mouth once daily as needed (When taking diuretic). DAILY hydrocortisone 2.5 % cream Apply 1 application to affected area three times a day as needed (itchy skin lesion on chest). Apply thin layer as directed torsemide (DEMADEX) 10 mg tablet Take 1 tablet by mouth once daily as needed (edema). Simethicone 125 mg chewable tablet Take 1 tablet by mouth every 6 hours as needed. blood sugar diagnostic (BLOOD GLUCOSE TEST) test strip Test blood sugar 1 time daily. Dx: Type 2 DM - Controlled E11.9 Insulin: No. Lancets Test blood sugar(s) 2 times daily and as needed. To go with lancet pen with glucometer Dx: Type 2 DM - Controlled E11.9 Insulin: No furosemide (LASIX) 10 mg/mL solution Take by mouth as directed. mecobalamin (B12 ACTIVE ORAL) Take by mouth. omeprazole (PRILOSEC) 20 mg capsule Take 1 capsule by mouth once daily. as directed flash glucose scanning reader (FREESTYLE ALEX 2 READER) Check sugars at least 4 times daily albuterol HFA (PROVENTIL HFA, VENTOLIN HFA) 90 mcg/actuation inhaler Inhale 1-2 Puffs as instructed every 4 hours as needed (for wheezing and shortness of breath). Lactobacillus acidophilus (PROBIOTIC ORAL) Take by mouth. COMPOUNDED PRESCRIPTION Powerstep full length original insert (M12.571) Traumatic arthritis of foot, right (primary encounter diagnosis) COMPOUNDED PRESCRIPTION New CPAP with supplies CPAP pressure 12 cm H2O. Diagnosis: EMY G47.33, Z99.89 Fax to [facility] ACETAMINOPHEN (TYLENOL ORAL) Take 500 mg by mouth as needed. aspirin, enteric coated (ASPIRIN, ENTERIC COATED) 81 mg EC tablet Take 81 mg by mouth once daily. fluticasone (FLONASE) 50 mcg/actuation nasal spray Use 1-2 sprays in each nostril once daily as needed for cold/allergy symptoms. Takes daily as needed MULTI-VITAMIN ORAL Take by mouth. (Patient not taking: Reported on 07/06/2024) No current facility-administered medications for this visit. Review of Systems Objective BP 127/71 Pulse 62 Ht 152.4 cm (5') Wt 81.6 kg (180 lb) BMI 35.15 kg/m Physical Exam Constitutional: Appearance: Normal appearance. HENT: Head: Normocephalic. Right Ear: Tympanic membrane, ear canal and external ear normal. Left Ear: Tympanic membrane, ear canal and external ear normal. Eyes: Conjunctiva/sclera: Conjunctivae normal. Cardiovascular: Rate and Rhythm: Normal rate and regular rhythm. Heart sounds: Normal heart sounds. Pulmonary: Effort: Pulmonary effort is normal. Breath sounds: Normal breath sounds. Musculoskeletal: Right lower leg: No edema. Left lower leg: No edema. Skin: General: Skin is warm and dry. Neurological: General: No focal deficit present. Mental Status: She is alert and oriented to person, place, and time. Psychiatric: Mood and Affect: Mood normal. Behavior: Behavior normal. Thought Content: Thought content normal. Judgment: Judgment normal. Latest Ref Rng 05/25/2024 07/06/2024 Protein, Total 6.3 - 8.0 g/dL 6.9 Albumin 3.9 - 4.9 g/dL 4.1 Calcium 8.5 - 10.2 mg/dL 10.3 (H) 10.1 Bilirubin, Total 0.2 - 1.3 mg/dL 0.4 Alkaline Phosphatase 34 - 123 U/L 73 AST 13 - 35 U/L 11 (L) ALT 7 - 38 U/L 6 (L) Glucose 74 - 99 mg/dL 123 (H) 177 (H) BUN 7 - 21 mg/dL 13 18 Creatinine 0.58 - 0.96 mg/dL 0.63 0.60 Sodium 136 - 144 mmol/L 141 143 Potassium 3.7 - 5.1 mmol/L 4.4 4.5 Chloride 98 - 107 mmol/L 103 106 CO2 22 - 30 mmol/L 26 26 Anion Gap 8 - 15 mmol/L 12 11 eGFR >=60 mL/min/1.73m 89 90 WBC 3.70 - 11.00 k/uL 6.79 RBC 3.90 - 5.20 m/uL 4.48 Hemoglobin 11.5 - 15.5 g/dL 13.1 Hematocrit 36.0 - 46.0 % 39.5 MCV 80.0 - 100.0 fL 88.2 MCH 26.0 - 34.0 pg 29.2 MCHC 30.5 - 36.0 g/dL 33.2 RDW-CV 11.5 - 15.0 % 13.1 Platelet Count 150 - 400 k/uL 342 MPV 9.0 - 12.7 fL 9.5 Absolute nRBC <0.01 k/uL <0.01 Hemoglobin A1C 4.3 - 5.6 % 6.6 (H) Estimated Average Glucose mg/dL 143 Magnesium 1.7 - 2.3 mg/dL 2.0 Vitamin D 25 Hydroxy 31.0 - 80.0 ng/mL 30.8 (L) 31.6 Vitamin B12 232 - 1,245 pg/mL 481 PTH, Intact 15 - 65 pg/mL 37 Legend: (H) High (L) Low Assessment and Plan # Chronic right ear pain (H92.01) # Episodic paroxysmal hemicrania, 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 - Physical exam reveals tenderness in the mastoid region and tight neck muscles; no signs of infection or masses in the ear. - Discussed potential nerve irritation as a cause of pain. - Recommended daily heat therapy and gentle neck exercises to alleviate muscle tension. - Advised against abrupt head movements that may exacerbate symptoms. - Considered use of Tizanidine 2 mg at bedtime to relax skeletal muscles and reduce spasms; patient instructed to avoid concurrent use with Percocet due to additive sedative effects. - Patient to monitor symptoms and report any changes or worsening. # Post-nasal drip (R09.82) - Managed with Flonase; refills provided. # Obstructive sleep apnea (G47.33) - Continues to use CPAP machine despite discomfort. # Fibromyalgia (M79.7) - Chronic condition contributing to widespread pain and muscle tightness. - Discussed non-pharmacological interventions such as vibrating massage mats and heat therapy to alleviate muscle tension. - Patient to continue current management and report any changes in symptoms. # Urinary frequency (R35.0) # Bad odor of urine (R82.90) - Ordered urinalysis to rule out infection and assess kidney function. # Vitamin D deficiency (E55.9) - Recent labs in June showed improvement. - Ordered repeat vitamin D level to monitor status. # Type 2 diabetes mellitus with diabetic neuropathy, without long-term current use of insulin (HCC) (E11.40) - Neuropathy symptoms in feet have worsened. - Ordered A1c, B12, and zinc levels to assess glycemic control and neuropathy management. - Continues to use Freestyle Alex for glucose monitoring; refills available until April. # Essential (primary) hypertension (I10) - Blood pressure well-controlled on lisinopril 20 mg daily. - Discontinued verapamil as it is no longer needed. # Encounter for therapeutic drug monitoring (Z51.81) - Ordered comprehensive metabolic panel to monitor kidney function and electrolytes. # Chronic right-sided thoracic back pain (M54.6) - Pain has been worsening and is associated with tight neck muscles. - Recommended daily heat therapy and gentle neck exercises. - Considered use of Tizanidine 2 mg at bedtime to relax skeletal muscles and reduce spasms. - Discussed potential benefits of physical therapy, including deep ultrasound and dry needling. - Patient to monitor symptoms and report any changes or worsening. # Primary osteoarthritis of both knees (M17.0) - No specific treatment changes discussed during this visit. Kristy Brower MD Recording using [employer] software for draft documentation of the visit was discussed with the patient/authorized benefits representative; all questions welcomed and answered. Patient/authorized benefits representative agreed to proceed documented in this encounter [facility] 09-21-2024 Note HNO ID: [id number] Author: KRISTY BROWER MD Service: ? Author Type: Physician Type: Progress Notes Filed: 10/21/2024 18:57 Note Text: This note was created using AISriter. Subjective Arlette Ruiz is a 79-year-old female with a history of fibromyalgia, presenting for evaluation of chronic right ear pain, cephalalgia, and back pain. Arlette reports chronic right ear pain and cephalalgia, primarily localized to the right side of the head, with occasional pain in the left hinduism. The pain is described as being underneath the mastoid and through the ear, and occurs almost daily. She notes that the pain was not present yesterday, but recurred upon waking this morning. The pain is exacerbated by rubbing the affected area, which elicits a sharp pain. She has not identified any specific triggers or consistent alleviating factors for the pain, though she has found some relief with the application of a steam bag to the ears and heat therapy. She denies pain with mastication. Arlette also reports a recent onset of a boom sound in her neck when turning her head, distinct from previous experiences of snap, crackle, and pop sounds. This new sound occurs frequently and is described as more pronounced and concerning. She denies any improvement in symptoms following this sound and expresses apprehension about it. Additionally, Arlette reports worsening back pain, which she describes as feeling connected to her spine and ribs. She has been using heat therapy and topical treatments for relief. She has not yet undergone formal physical therapy, deep ultrasound, or dry needling for these symptoms. She has not tried the prescribed tizanidine 2 mg, which was intended for muscle spasms and back pain. Arlette has a history of fibromyalgia, though she does not recall the specific date of diagnosis. She reports increased neuropathy symptoms in her feet. She also notes a recent cessation of verapamil and Carafate, and plans to resume taking a multivitamin. She is currently using a Freestyle Alex for glucose monitoring and an AutoPAP device, which she dislikes but continues to use. She reports worsening allergy symptoms and a malodorous urine. PAST MEDICAL HISTORY Diagnosis Date CAD (coronary artery disease) 04/16/2012 70-80% LAD --had stent placed 09/07/14 Depressive disorder, not elsewhere classified Diverticulitis of colon with hemorrhage 2001 DM w/o Complication Type II 04/05/2009 GERD (gastroesophageal reflux disease) Hiatal hernia Hypertension 03/30/1988 IPF (idiopathic pulmonary fibrosis) ([facility]) Irritable bowel syndrome Occipital neuralgia Osteoarthritis 06/27/2011 Other chronic sinusitis Other osteoporosis Post-nasal drip Situational depression 12/27/2014 Sleep apnea 03/30/1996 Statin intolerance 12/24/2016 SVT (supraventricular tachycardia) ([facility]) 10/02/2018 Thoracic aortic aneurysm [address] chest (2014, 2013)--July 09, [address] Unspecified essential hypertension Patient has had since age 33 Vitamin D Deficiency 04/18/2009 Current Outpatient Medications Medication Sig famotidine (PEPCID) 40 mg tablet Take 1 tablet by mouth once daily. tiZANidine (ZANAFLEX) 2 mg tablet Take 1 tablet by mouth every 8 hours as needed. flash glucose sensor (FREESTYLE ALEX 2 SENSOR) kit 1 Each every 2 weeks. E11.9 DM type 2, Insulin: No lisinopril (ZESTRIL) 5 mg tablet Take 1 tablet by mouth once daily. azelastine 0.1% nasal spray Use 1 Coleman in each nostril two times a day. CPAP Continue settings of Auto PAP to 5-15 cm of water with humidification. Continue orders for: Mask (per patient preference) optional chin strap (if indicated) , filters, tubing, humidifier and lifetime supplies. potassium chloride (K-TAB) 10 mEq tablet Take 1 tablet by mouth once daily as needed (When taking diuretic). DAILY hydrocortisone 2.5 % cream Apply 1 application to affected area three times a day as needed (itchy skin lesion on chest). Apply thin layer as directed torsemide (DEMADEX) 10 mg tablet Take 1 tablet by mouth once daily as needed (edema). Simethicone 125 mg chewable tablet Take 1 tablet by mouth every 6 hours as needed. blood sugar diagnostic (BLOOD GLUCOSE TEST) test strip Test blood sugar 1 time daily. Dx: Type 2 DM - Controlled E11.9 Insulin: No. Lancets Test blood sugar(s) 2 times daily and as needed. To go with lancet pen with glucometer Dx: Type 2 DM - Controlled E11.9 Insulin: No furosemide (LASIX) 10 mg/mL solution Take by mouth as directed. mecobalamin (B12 ACTIVE ORAL) Take by mouth. omeprazole (PRILOSEC) 20 mg capsule Take 1 capsule by mouth once daily. as directed flash glucose scanning reader (FREESTYLE ALEX 2 READER) Check sugars at least 4 times daily albuterol HFA (PROVENTIL HFA, VENTOLIN HFA) 90 mcg/actuation inhaler Inhale 1-2 Puffs as instructed every 4 hours as needed (for wheezing and shortness of breath). Lactobacillus acidophilus (PRO (more content not included)... [facility] 09-12-2024 History of Present illness Narrative Subjective Patient ID: Arlette Ruiz is a 79 y.o. female who presents for ild (Patient is here for follow up visit. Patient states her breathing has gotten worse she has drainage and states it hurts in her back. Patient states she has morning productive cough. ).' Asthma She complains of cough and shortness of breath. Associated symptoms include postnasal drip and rhinorrhea. Pertinent negatives include no chest pain or fever. Her past medical history is significant for asthma. Ms. Ruiz is a *1yo female with PMH of Pulmonary fibrosis and asthma presents for a second opinion. She states that she first saw black oxide operator Dr. Potter at [facility] in 2014 due to cough and was diagnosed with Idiopathic Pulmonary Fibrosis. She later started seeing Dr. Giuliano Nolasco who informed her that she did not have IPF and did work up for Histoplasmosis and HP and later bronchoscopy in 2017. She has been seeing Dr. Myriam Obrien now since Dr. Nolasco retired and she was again told to have IPF. She presents today for evaluation and management. She states that she has significant postnasal drip, intermittent cough and her SOB is primarily with strenuous activity. She is not on Home O2. She does have EMY and uses CPAP nightly through [facility]. She [place] to [place] [employer] and gets significant exposure. She is here for follow up. She states she is not SOB on usual activity but more than usual or strenuous activity makes her SOB. She gets coughing spell in the morning and has occasional wheezing which is relieved with albuterol. She did not like Symbicort because she felt it caused some soreness in her throat. However, she has been good otherwise on albuterol inhaler. She has noted worsened allergic rhinitis and sinus symptoms with every seasonal change but admits she is not taking montelukast, flonase & Azelastine on regular basis. She denies fever, chills, rigors, chest pain. Reports she is tired. She reports she is not depressed but has anxiety. She did have low Vit D and is taking Vit D3 per PCP. She had HRCT chest done per Dr. Lambert cardiology that reported pulmonary fibrosis with progression since 2018. She was referred to ILD clinic with Dr. Alonzo and it was considered to be a slowly progressive pulmonary fibrosis. She does not have any progressive SOB with activity, cough or new respiratory symptoms but does have continue postnasal drip and related occasional cough. Review of Systems Constitutional: Negative for chills, fever and unexpected weight change. HENT: Positive for postnasal drip and rhinorrhea. Respiratory: Positive for cough and shortness of breath. Cardiovascular: Negative for chest pain, palpitations and leg swelling. Gastrointestinal: As in HPI Musculoskeletal: Negative for arthralgias and gait problem. Skin: Negative for rash. All other systems reviewed and are negative. Objective Physical Exam Vitals and nursing note reviewed. Constitutional: Appearance: Normal appearance. HENT: Head: Normocephalic. Nose: Nose normal. Mouth/Throat: Pharynx: Oropharynx is clear. Eyes: Extraocular Movements: Extraocular movements intact. Conjunctiva/sclera: Conjunctivae normal. Pupils: Pupils are equal, round, and reactive to light. Cardiovascular: Rate and Rhythm: Normal rate and regular rhythm. Pulses: Normal pulses. Heart sounds: Normal heart sounds. Pulmonary: Effort: Pulmonary effort is normal. Breath sounds: Normal breath sounds. Abdominal: General: Bowel sounds are normal. Palpations: Abdomen is soft. Musculoskeletal: General: Normal range of motion. Cervical back: Normal range of motion. Skin: General: Skin is warm. Neurological: General: No focal deficit present. Mental Status: She is alert and oriented to person, place, and time. Mental status is at baseline. Psychiatric: Mood and Affect: Mood normal. Behavior: Behavior normal. Assessment/Plan Moderate persistent asthma ILD EMY Allergic rhinitis Class 2 obesity GERD Vitamin D deficiency Hx of chronic sinusitis Recommendations: -ILD work up has been done before. CTD was negative. HP panel results not available. H/o bronchoscopy with BAL at [facility] with Dr. Nolasco. -Reviewed CT chest Nov 2022: patient has had subpleural reticulation in bilateral bases since 2016 but on review has not progressed. 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 The CT chest from 2014 is not available for review. Repeat HRCT chest being done by cardiology for ?evaluation of interstitial edema. -D/w pt and her son Eloise. There is no characteristic e/o IPF that was initially diagnosed in 2014 and symptoms have not progressed. Patient is not O2 dependent. The CT chest comparison does not show progressive honeycombing. I discussed with patient that IPF is not totally ruled out but clinical picture may be s/o other ILDs. VATS bx would be ideal for diagnosis but at present we will defer due to risks exceeding benefits. If this appears to be a PPF, progressive pulmonary fibrosis on follow up, we will offer OFEV therapy. At this time her symptoms are mostly attributable to asthma and allergic rhinitis. She has corn [place] behind her house and is not adherent to allergic rhinitis rx with resulting postnasal drip and related cough. ESPINOSA has not progressed. HRCT chest Mar 2024 without significant progression on review. D/w pt and her son Eloise, no antifibrotic treatment is indicated at present. Advised to notify if symptoms recur or progress. Defer HRCT chest at present. Patient has been evaluated in ILD clinic at [facility]. -She did not like Symbicort but does feel improvement with albuterol. Does notice improvement in sinus symptoms with Dymista partially. Avoid allergen exposure. Normal RAST and HP. Repeat PFTs discussed: normal idalia, volumes and DLCO reported. -She is not using Dymista but nasonex and sinus rinse. Recommend take prn azelastine & nasonex. Start taking Montelukast HS and cetirizine on daily basis especially with seasonal changes. -Continue CPAP therapy for EMY. I adjusted her APAP from 5-15 cwp to 10-14 cwp since P95 12.4 cwp. Changed auto ramp to ramp x 15 min and set up EPR. She states she is using it nightly and her data is good. She does not need any repeat sleep study at present. Continue APAP 10-14 cwp. Discussed with patient and her son Eloise on prior visit and now with daughter Krista. Continue asthma management with prn albuterol and focus on optimizing the treatment for allergic rhinitis. Advised patient to stay adherent to the treatment. Continue nightly CPAP. No clinical or radiographic progression of ILD is noted. Symptoms are controlled. We did get data for AutoPap 10-15 and her AHI is well-controlled at 0.1. I provided reassurance to the patient that her respiratory and sleep disorders are under control at present. I also reassured that her sinus symptoms are more related to uncontrolled allergic rhinitis and no signs of active infection are noted. However I educated patient to identify signs of sinus infection and contact us. Pt and her son Eloise expressed understanding and will keep in contact with our office for any worsening respiratory symptoms. documented in this encounter [facility] Work Phone: 09-12-2024 Instructions Johanna Patino MD - 09/12/2024 1:20 PM EDT Please continue using albuterol inhaler as needed for shortness of breath and wheezing. Continue using flonase and azelastine nasal spray 1 spray in each nostril twice daily as needed for sinus drainage. Start taking Montelukast 1 tablet nightly at bedtime and start taking cetirizine 5 mg 1 tablet daily in the morning. Continue to use CPAP nightly. Our office will ask KIRAN Steen to send your data. Follow up in May 2025. documented in this encounter [facility] Work Phone: 09-10-2024 Note HNO ID: [id number] Author: KIRIT CHAVEZ, ? Service: ? Author Type: Physician Type: Progress Notes Filed: 09/10/2024 18:54 Note Text: Subjective Arlette Ruiz is an 79-year-old female with a history of diabetes mellitus, presenting for evaluation of a hyperkeratotic lesion on the right foot. Porokeratosis: - Hyperkeratotic lesion on the plantar aspect of the right hallux interphalangeal joint, present for several months. - Lesion has worsened recently. - Daughter has been applying topical treatments and shaving the lesion, providing temporary relief for a few days. - Denies any known trauma or injury to the area. Diabetes Mellitus: - Diagnosed 25 years ago. - Last A1c was approximately 7. Musculoskeletal: (+) plantar right hallux pain PAST MEDICAL HISTORY Diagnosis Date CAD (coronary artery disease) 04/16/2012 70-80% LAD --had stent placed 09/07/14 Depressive disorder, not elsewhere classified Diverticulitis of colon with hemorrhage 2001 DM w/o Complication Type II 04/05/2009 GERD (gastroesophageal reflux disease) Hiatal hernia Hypertension 03/30/1988 IPF (idiopathic pulmonary fibrosis) ([facility]) Irritable bowel syndrome Occipital neuralgia Osteoarthritis 06/27/2011 Other chronic sinusitis Other osteoporosis Post-nasal drip Situational depression 12/27/2014 Sleep apnea 03/30/1996 Statin intolerance 12/24/2016 SVT (supraventricular tachycardia) ([facility]) 10/02/2018 Thoracic aortic aneurysm [address] chest (2014, 2013)--July 09, [address] Unspecified essential hypertension Patient has had since age 33 Vitamin D Deficiency 04/18/2009 Current Outpatient Medications Medication Sig Dispense Refill famotidine (PEPCID) 40 mg tablet Take 1 tablet by mouth once daily. 90 tablet 3 tiZANidine (ZANAFLEX) 2 mg tablet Take 1 tablet by mouth every 8 hours as needed. 60 tablet 1 flash glucose sensor (FREESTYLE ALEX 2 SENSOR) kit 1 Each every 2 weeks. E11.9 DM type 2, Insulin: No 2 Each 11 lisinopril (ZESTRIL) 5 mg tablet Take 1 tablet by mouth once daily. 90 tablet 3 azelastine 0.1% nasal spray Use 1 Coleman in each nostril two times a day. 30 mL 2 fluticasone (FLONASE) 50 mcg/actuation nasal spray Use 1-2 Sprays in each nostril once daily as needed for cold/allergy symptoms. Takes daily as needed 1 Each 5 CPAP Continue settings of Auto PAP to 5-15 cm of water with humidification. Continue orders for: Mask (per patient preference) optional chin strap (if indicated) , filters, tubing, humidifier and lifetime supplies. 1 Each 0 potassium chloride (K-TAB) 10 mEq tablet Take 1 tablet by mouth once daily as needed (When taking diuretic). DAILY 30 tablet 1 hydrocortisone 2.5 % cream Apply 1 application to affected area three times a day as needed (itchy skin lesion on chest). Apply thin layer as directed 28 g 0 torsemide (DEMADEX) 10 mg tablet Take 1 tablet by mouth once daily as needed (edema). 30 tablet 5 Simethicone 125 mg chewable tablet Take 1 tablet by mouth every 6 hours as needed. 120 tablet 5 blood sugar diagnostic (BLOOD GLUCOSE TEST) test strip Test blood sugar 1 time daily. Dx: Type 2 DM - Controlled E11.9 Insulin: No. 50 Strip 5 Lancets Test blood sugar(s) 2 times daily and as needed. To go with lancet pen with glucometer Dx: Type 2 DM - Controlled E11.9 Insulin: No 100 Each 11 furosemide (LASIX) 10 mg/mL solution Take by mouth as directed. mecobalamin (B12 ACTIVE ORAL) Take by mouth. omeprazole (PRILOSEC) 20 mg capsule Take 1 capsule by mouth once daily. as directed 90 capsule 1 flash glucose scanning reader ([employer] ALEX 2 READER) Check sugars at least 4 times daily 1 Each 0 albuterol HFA (PROVENTIL HFA, VENTOLIN HFA) 90 mcg/actuation inhaler Inhale 1-2 Puffs as instructed every 4 hours as needed (for wheezing and shortness of breath). 1 Inhaler 11 Lactobacillus acidophilus (PROBIOTIC ORAL) Take by mouth. COMPOUNDED PRESCRIPTION Powerstep full length original insert (M12.571) Traumatic arthritis of foot, right (primary encounter diagnosis) 1 Device 0 COMPOUNDED PRESCRIPTION New CPAP with supplies CPAP pressure 12 cm H2O. Diagnosis: EMY G47.33, Z99.89 Fax to [facility] 1 Each 0 ACETAMINOPHEN (TYLENOL ORAL) Take 500 mg by mouth as needed. aspirin, enteric coated (ASPIRIN, ENTERIC COATED) 81 mg EC tablet Take 81 mg by mouth once daily. nitrofurantoin monohydrate and macrocrystal (MACROBID) 100 mg capsule Take 1 capsule by mouth two times a day. (Patient not taking: Reported on 09/09/2024) 14 capsule 0 verapamil SR (CALAN SR) 120 mg CR tablet Take 120 mg by mouth daily at bedtime. (Patient not taking: Reported on 08/29/2024) sucralfate (CARAFATE) 1 gram tablet Take 1 g by mouth two times a day. (Patient not taking: Reported on 08/29/2024) metoprolol tartrate, short acting, (LOPRESSOR) 25 mg tablet Take 1 tablet by mouth two times a day. (Patient not taking: Reported on 05/23/2024) 180 tablet 3 MULTI-VITAMIN ORAL Ta (more content not included)... [facility] 09-10-2024 History of Present illness Narrative Subjective Arlette Ruiz is an 79-year-old female with a history of diabetes mellitus, presenting for evaluation of a hyperkeratotic lesion on the right foot. Porokeratosis: - Hyperkeratotic lesion on the plantar aspect of the right hallux interphalangeal joint, present for several months. - Lesion has worsened recently. - Daughter has been applying topical treatments and shaving the lesion, providing temporary relief for a few days. - Denies any known trauma or injury to the area. Diabetes Mellitus: - Diagnosed 25 years ago. - Last A1c was approximately 7. Musculoskeletal: (+) plantar right hallux pain PAST MEDICAL HISTORY Diagnosis Date CAD (coronary artery disease) 04/16/2012 70-80% LAD --had stent placed 09/07/14 Depressive disorder, not elsewhere classified Diverticulitis of colon with hemorrhage 2001 DM w/o Complication Type II 04/05/2009 GERD (gastroesophageal reflux disease) Hiatal hernia Hypertension 03/30/1988 IPF (idiopathic pulmonary fibrosis) ([facility]) Irritable bowel syndrome Occipital neuralgia Osteoarthritis 06/27/2011 Other chronic sinusitis Other osteoporosis Post-nasal drip Situational depression 12/27/2014 Sleep apnea 03/30/1996 Statin intolerance 12/24/2016 SVT (supraventricular tachycardia) ([facility]) 10/02/2018 Thoracic aortic aneurysm [address] chest (2014, 2013)--July 09, [address] Unspecified essential hypertension Patient has had since age 33 Vitamin D Deficiency 04/18/2009 Current Outpatient Medications Medication Sig Dispense Refill famotidine (PEPCID) 40 mg tablet Take 1 tablet by mouth once daily. 90 tablet 3 tiZANidine (ZANAFLEX) 2 mg tablet Take 1 tablet by mouth every 8 hours as needed. 60 tablet 1 flash glucose sensor (FREESTYLE ALEX 2 SENSOR) kit 1 Each every 2 weeks. E11.9 DM type 2, Insulin: No 2 Each 11 lisinopril (ZESTRIL) 5 mg tablet Take 1 tablet by mouth once daily. 90 tablet 3 azelastine 0.1% nasal spray Use 1 Coleman in each nostril two times a day. 30 mL 2 fluticasone (FLONASE) 50 mcg/actuation nasal spray Use 1-2 Sprays in each nostril once daily as needed for cold/allergy symptoms. Takes daily as needed 1 Each 5 CPAP Continue settings of Auto PAP to 5-15 cm of water with humidification. Continue orders for: Mask (per patient preference) optional chin strap (if indicated) , filters, tubing, humidifier and lifetime supplies. 1 Each 0 potassium chloride (K-TAB) 10 mEq tablet Take 1 tablet by mouth once daily as needed (When taking diuretic). DAILY 30 tablet 1 hydrocortisone 2.5 % cream Apply 1 application to affected area three times a day as needed (itchy skin lesion on chest). Apply thin layer as directed 28 g 0 torsemide (DEMADEX) 10 mg tablet Take 1 tablet by mouth once daily as needed (edema). 30 tablet 5 Simethicone 125 mg chewable tablet Take 1 tablet by mouth every 6 hours as needed. 120 tablet 5 blood sugar diagnostic (BLOOD GLUCOSE TEST) test strip Test blood sugar 1 time daily. Dx: Type 2 DM - Controlled E11.9 Insulin: No. 50 Strip 5 Lancets Test blood sugar(s) 2 times daily and as needed. To go with lancet pen with glucometer Dx: Type 2 DM - Controlled E11.9 Insulin: No 100 Each 11 furosemide (LASIX) 10 mg/mL solution Take by mouth as directed. mecobalamin (B12 ACTIVE ORAL) Take by mouth. omeprazole (PRILOSEC) 20 mg capsule Take 1 capsule by mouth once daily. as directed 90 capsule 1 flash glucose scanning reader (FREESTYLE ALEX 2 READER) Check sugars at least 4 times daily 1 Each 0 albuterol HFA (PROVENTIL HFA, VENTOLIN HFA) 90 mcg/actuation inhaler Inhale 1-2 Puffs as instructed every 4 hours as needed (for wheezing and shortness of breath). 1 Inhaler 11 Lactobacillus acidophilus (PROBIOTIC ORAL) Take by mouth. COMPOUNDED PRESCRIPTION Powerstep full length original insert (M12.571) Traumatic arthritis of foot, right (primary encounter diagnosis) 1 Device 0 COMPOUNDED PRESCRIPTION New CPAP with supplies CPAP pressure 12 cm H2O. Diagnosis: EMY G47.33, Z99.89 Fax to [facility] 1 Each 0 ACETAMINOPHEN (TYLENOL ORAL) Take 500 mg by mouth as needed. aspirin, enteric coated (ASPIRIN, ENTERIC COATED) 81 mg EC tablet Take 81 mg by mouth once daily. nitrofurantoin monohydrate and macrocrystal (MACROBID) 100 mg capsule Take 1 capsule by mouth two times a day. (Patient not taking: Reported on 09/09/2024) 14 capsule 0 verapamil SR (CALAN SR) 120 mg CR tablet Take 120 mg by mouth daily at bedtime. (Patient not taking: Reported on 08/29/2024) sucralfate (CARAFATE) 1 gram tablet Take 1 g by mouth two times a day. (Patient not taking: Reported on 08/29/2024) metoprolol tartrate, short acting, (LOPRESSOR) 25 mg tablet Take 1 tablet by mouth two times a day. (Patient not taking: Reported on 05/23/2024) 180 tablet 3 MULTI-VITAMIN ORAL Take by mouth. (Patient not taking: Reported on 07/06/2024) No current facility-administered medications for this visit. Family History Problem Relation Age of Onset Arthritis Mother Colon Cancer Mother from this Hypertension Father Heart Father CHF Diabetes Father Cancer Brother Lung Cancer Sister from lung cancer Diabetes Brother Hypertension Brother other (Migraine) Daughter other (Other) Daughter Fibromyalgia other (Migraine) Daughter other (Other) Daughter Fibromyalgia Asthma Daughter other (SLE) Daughter Thyroid Cancer Brother Asthma Brother Asthma Maternal Grandfather Asthma Other Nephew, at age 7. Objective There were no vitals taken for this visit. - Cardiovascular: Dorsalis pedis and posterior tibial pulses palpable bilaterally; capillary refill <5 seconds; skin temperature warm bilaterally. - Skin: Hyperkeratotic lesion resembling porokeratosis on the plantar aspect of the right hallux interphalangeal joint; no other lesions noted on bilateral feet. - Musculoskeletal: No deformities noted on bilateral feet; strength 5/5 for dorsiflexion, plantar flexion, inversion, and eversion. - Neurological: Protective sensation intact bilaterally. Labs: - Hemoglobin A1c: 7 Assessment & Plan 1. Porokeratosis (Q82.8) - Hyperkeratotic lesion on the plantar aspect of the right hallux interphalangeal joint consistent with porokeratosis. - Differential diagnosis includes wart. - Shaved down the lesion with 15 blade to reduce thickness and applied topical acid treatment; instructed patient to leave the acid on for 10 hours and then wash it off. - Provided gel insert and adhesive pad to offload pressure from the affected area; demonstrated application technique using lipstick or marker to transfer the lesion's location onto the insert. - Discussed potential for recurrence and options for further treatment, including periodic debridement or surgical excision if conservative measures are insufficient. 2. Type 2 diabetes mellitus with diabetic neuropathy, without long-term current use of insulin (HCC) (E11.40) - Diabetes well-controlled with recent A1c approximately 7.0%. - Protective sensation intact bilaterally; no signs of neuropathic complications observed. - Advised against barefoot walking to prevent foot injuries. - Continue current diabetes management regimen. Recording using [employer] software for draft documentation of the visit was discussed with the patient/authorized benefits representative; all questions welcomed and answered. Patient/authorized benefits representative agreed to proceed Kirit Chavez DPM Per Whitney Lee was provided with powerstep gel inserts, size 9, and instructed/educated in its application, wear, and care. All questions were answered, and patient was able to demonstrate competence with the necessary skills to utilize the above equipment. Elsy Barriga LPN AMB ROOMING INTAKE FLOWSHEET DATA Pain Pain Level: 8 Pain Location: Toe Description: Pressure, Stabbing Duration Amount of Time: 8 Duration Units: Months Frequency: Continuous Tylenol as needed documented in this encounter [facility] 09-09-2024 Note HNO ID: [id number] Author: ELSY BARRIGA LPN Service: ? Author Type: LICENSED NURSE Type: Progress Notes Filed: 09/10/2024 18:54 Note Text: Per Whitney Lee was provided with powerstep gel inserts, size 9, and instructed/educated in its application, wear, and care. All questions were answered, and patient was able to demonstrate competence with the necessary skills to utilize the above equipment. Elsy Barriga LPN [facility] 09-09-2024 Instructions Kirit Chavez - 09/09/2024 9:42 AM EDT Trichloroacetic acid (TCA) has been applied to the plantar warts. Rinse off in 12 hours and keep clean and dry. May bathe and shower normally starting the day after treatment The area is expected to burn and blister in about 1-3 days, if painful soak in plain, cool water. If blistered, you may drain the blister with a clean, STERILIZED needle and apply OTC antibiotic ointment and band aid to area. Repeat 2-3 times daily as needed. Tylenol or Aleve as needed for pain, provided you have no allergies to either of these. Keep scheduled follow up appointment to have wart(s) re-evaluated and/or additional treatments. Powerstep Original Full length. Can purchase at [email or web address] Runner and boots,shoes and more here in [place], [employer] in [place] or [place]. Also can find in [employer] in [facility]. Powersteps can also be purchased online, starting around $45.00 If you have a metatarsal or dancer pad for your feet apply the pad directly to the insole so you can interchange between your shoes. Find a shoe with a removable insole and take this out and replace with your powerstep insole. Always bring powersteps with you when shopping for shoes so that you can make sure that everything fits well together Diabetes Foot Care Instructions When you have diabetes, proper foot care is very important. Poor foot care may lead to amputation of a foot or leg. As a person with diabetes, you are more vulnerable to foot problems, because diabetes can damage your nerves and reduce blood flow to your feet. Here are some diabetes foot care tips to follow: Wash and Dry Your Feet Daily Use mild soaps Use warm water Pat your skin dry; do not rub. Thoroughly dry your feet. After washing, use lotion on your feet to prevent cracking. Do not put lotion between your toes. Examine Your Feet Each Day Check the tops and bottoms of your feet. Have someone else look at your feet if you cannot see them. Check for dry, cracked skin. Look for blisters, cuts, scratches, or other sores. Check for redness, increased warmth, or tenderness when touching any area of your feet. Check for ingrown toenails, corns, and calluses. If you get a blister or sore from your shoes, do not pop it. Apply a bandage and wear a different pair of shoes. Take Care of Your Toenails Cut toenails after bathing, when they are soft. Cut toenails straight across and smooth with a nail file. Avoid cutting into the corners of toes. Do not cut cuticles. If you have neuropathy (or decreased sensation in your feet) a medical review coordinator should always cut your toenails. Be Careful When Exercising Walk and exercise in comfortable shoes. Do not exercise when you have open sores on your feet. Protect Your Feet With Shoes and Socks Never go barefoot. Always protect your feet by wearing shoes or hard-soled slippers or footwear. Avoid shoes with high heels and pointed toes. Avoid shoes that expose your toes or heels (such as open-toed shoes or sandals). These types of shoes increase your risk for injury and potential infections. Try on new footwear with the type of socks you usually wear. Do not wear new shoes for more than an hour at a time. Change your socks daily. Look and feel inside your shoes before putting them on to make sure there are no foreign objects or rough areas. Avoid tight socks. Wear natural-fiber socks (cotton, wool, or a cotton-wool blend). Wear special shoes if your health care provider recommends them. Wear shoes/boots that will protect your feet from various weather conditions (cold, moisture, etc.). Make sure your shoes fit properly. If you have neuropathy (nerve damage), you may not notice that your shoes are too tight. Perform the footwear test described below. Footwear Test Use this simple test to see if your shoes fit correctly: Stand on a piece of paper. (Make sure you are standing and not sitting, because your foot changes shape when you stand.) Trace the outline of your foot. Trace the outline of your shoe. Compare the tracings: Is the shoe too narrow? Is your foot crammed into the shoe? The shoe should be at least 1/2 inch longer than your longest toe and as wide as your foot. Proper Shoe Choices The following types of shoes are best for people with diabetes Closed toes and heels Leather uppers without a seam inside At least 1/2 inch extra space at the end of your longest toe Inside of shoe should be soft with no rough areas Outer sole should be made of stiff material Shoes should be at least as wide as your feet Tips for Foot Care in Diabetes Don't wait to treat a minor foot problem if you have diabetes. Follow your health care provider's guidelines and first aid guidelines. Report foot injuries and infections to your health care provider immediately. Check water temperature with your elbow, not your foot. Do not use a heating pad on your feet. Do not cross your legs. Do not self-treat your corns, calluses, or other foot problems. Go to your health care provider or medical review coordinator to treat these conditions. documented in this encounter [facility] 09-09-2024 Note HNO ID: [id number] Author: DIPTI GA MA Service: ? Author Type: Sheetmetal Patternmaker Type: Progress Notes Filed: 09/10/2024 18:54 Note Text: AMB ROOMING INTAKE FLOWSHEET DATA Pain Pain Level: 8 Pain Location: Toe Description: Pressure, Stabbing Duration Amount of Time: 8 Duration Units: Months Frequency: Continuous Tylenol as needed [facility] 08-31-2024 History of Present illness Narrative Images from the original note were not included. Division of Pulmonary, Critical Care, and Sleep Medicine Reason for the consultation Whitney Chong is a 79 y.o. female who presents to a [facility] for an evaluation for ILD . I have independently interviewed and examined the patient in the office and reviewed available records. Physician HPI (08/31/2024): Whitney Ruiz is a remote light smoker of 10 pack. Who quit 50 years ago. She was diagnosed with ILD many years ago in 2014. She was followed up by a physician then a [facility] [place] until 2022 when she started following up with Dr. Patino. She has chronic dyspnea mMRC 1 that is not been progressing. She denies any cough except for her seasonal allergies which is controlled with Singulair and nasal steroid. She also has a history of asthma for which she takes albuterol very rarely. Denies fever or chills, night sweats, weight loss or TEENA. Denies problems swallowing or chocking on food or cough when eating, or reflux. Denies tight skin, Raynaud's, joint pain or swelling. No rashes or ulcers. No dry eye or dry mouth. No orthopnea or PND or LE edema Dyspnea Scale: MMRC 1 - I get short of breath when hurrying on level ground or walking up a slight hill. MMRC 2 - On level ground, I walk slower than people of the same age because of breathlessness, or have to stop for breath when walking at my own pace. MMRC 3 - I stop for breath after walking about 100 yards or after a few minutes on level ground. MMRC 4 - I am too breathless to leave the house or I am breathless when dressing. She has severe osteoarthritis of the right knee for which she was recommended surgery but she is reluctant because of her advanced age. [facility] Medical History[1] HTN OA right knee Previous pulmonary history: no history of recurrent infections, or lung disease as a child. No previous lung hx, never on oxygen or inhaler therapy. Currently on no supplemental oxygen. Has never been to pulmonary rehab. Hospitalization History: Has not been hospitalized over the last year for breathing related problem. 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 Dx: Type 2 DM - Controlled E11.9 Insulin: No. Labile sugars that sometimes drop low so needs to check at least twice daily (taking glipizide) cefdinir (Omnicef) 300 mg capsule 1 capsule, Every 12 hours scheduled (0630,1830) cholecalciferol (VITAMIN D-3) 125 mcg, Daily cyanocobalamin (VITAMIN B-12) 500 mcg, Every other day famotidine (Pepcid) 40 mg tablet TAKE 1 TABLET BY MOUTH DAILY before bedtime fluticasone (Flonase) 50 mcg/actuation nasal spray 1-2 sprays FreeStyle Alex 2 Sensor kit CHANGE SENSOR EVERY 2 WEEKS Gas Relief Extra Strength 125 mg, Every 6 hours PRN L. acidophilus/Bifid. animalis 15.5 billion cell capsule Take by mouth. lisinopril 20 mg, oral, Daily (0630) naphazoline-glycerin (Clear Eyes Redness Relief) 0.012-0.2 % drops 1 Application, As needed nystatin (Mycostatin) 100,000 unit/mL suspension omeprazole (PRILOSEC) 20 mg, Daily OneTouch Delica Plus Lancet 30 gauge misc use to test BLOOD SUGAR TWICE DAILY NEEDED potassium chloride CR 10 mEq ER tablet 10 mEq, Daily PRN sucralfate (CARAFATE) 1 g, 3 times daily torsemide (DEMADEX) 10 mg, Daily PRN triamcinolone (Kenalog) 0.1 % cream Twice daily to affected areas for 1-2 weeks, then weekends only. Repeat every few months for flares. Drug Allergies/Intolerances: RX Allergies[3] Review of Systems: All systems have been reviewed and are negative for findings pertinent to the chief complaint except as detailed below or described in the HPI. Constitutional: Denies symptoms related to weight loss, fever or chills. ENT: Denies symptoms related to hearing loss, sore throat, sinusitis and masses. Cardiovascular: Denies symptoms related to chest pain, palpitations, edema and orthopnea. Respiratory: Denies symptoms related to dyspnea, wheezing, cough, hemoptysis or increased sputum. Gastrointestinal: Denies symptoms related to nausea, vomiting, diarrhea or constipation. GERD Genitourinary: Denies symptoms related to hematuria, nocturia, frequency or urgency. Musculoskeletal: Denies symptoms related to arthritis, joint pain, leg pain, weakness or joint stiffness. Raynaud's Integumentary: Denies symptoms related to skin rashes, moles, pigment changes or ulcers. Neurological: Denies symptoms related to dizziness, syncope, seizures, tremors or paralysis. Psychiatric: Denies psychiatric symptoms associated with PTSD, depression, anxiety, psychosis or hallucinations. Endocrine: Denies endocrine symptoms related to diabetes, polyuria, and cold/heat intolerance. Hematologic: Denies hematologic symptoms associated with anemia, bruising, bleeding or lymph node tenderness. Allergic: Denies allergic symptoms associated with allergy to meds, foods or contrast dye. All other review of systems are negative and/or non-contributory. Physical Examination: BP 124/69 Pulse 62 Resp 18 Ht 1.524 m (5') Wt 83 kg (183 lb) SpO2 96% BMI 35.74 kg/m Body mass index is 35.74 kg/m . General: ambulated independently; no acute distress; well-nourished; work of breathing was not increased; normal vocal character HEENT: normocephalic; anicteric sclerae; conjunctivae not injected; nasal mucosa was unremarkable; oropharynx was clear without evidence of thrush; dentition was good. Neck: supple; no lymphadenopathy or thyromegaly. Chest: rightside crackels at the base Cardiac: regular rhythm; no gallop or murmur. Abdomen: soft; non-tender; non-distended; no hepatosplenomegaly. Extremities: no leg edema; no digital clubbing; 2+ pulses Psychiatric: did not appear depressed or anxious. Diagnostic testing -PFTs I have personally visualized the most recent pulmonary function testing results. Date FEV1/FVC FEV1 L(%) FVC L(%) TLC L(%) RV/TLC DLCO c( %) December/2022 eyes 81; 1.83 (108%); 2.25 (102%); 3.71 (88%); 16 (90%) -Six mn walk: Date Distance Pox -Imaging: I have personally visualized the most recent imaging and I agree with the radiologist interpretation === 04/15/24 === CT CHEST HIGH RESOLUTION - Impression - 1. Basal and subpleural predominant reticulations with traction bronchiectasis/bronchiolectasis and honeycombing, consistent with 'Typical UIP' pattern of pulmonary fibrosis*. Findings are intervally progressed since 2018. 2. Cardiomegaly with left atrial enlargement. Correlate with echocardiography. 3. Sequelae of prior granulomatous disease. 4. Severe coronary artery calcifications. Anti-DERRICK FOLLOWER Date/Time Value Ref Range Status 08/22/2021 04:23 AM <0.2 AI Final Comment: REF VALUES < 1.0 = NEGATIVE >=1.0 = POSITIVE Anti-SCL-70 Date/Time Value Ref Range Status 08/22/2021 04:23 AM <0.2 AI Final Comment: REF VALUES < 1.0 = NEGATIVE >=1.0 = POSITIVE Eosinophils Absolute Date Value 03/15/2024 0.22 x10*3/uL 01/11/2024 0.06 x10*3/uL 12/24/2022 0.29 x10E9/L 01/31/2022 0.14 x10E9/L 12/23/2021 0.10 x10E9/L No results found for: IGE Assessment and Recommendations: Ms. Ruiz is a 79 y.o. female prior light smoker of 10 pack. Quit smoking 50 years ago with no occupational exposure but limits on a house between 2 farms who 1.Was diagnosed with ILD in 2014. This has been very slowly progressing based on the most recent chest CT from 2024 compared to 2018. I could not review the chest CT from 2014 as the images were not available. The most recent chest CT from 2024 shows a pattern of UIP. We could be dealing with IPF has been very slowly progressing over years. Her most recent pulmonary function test from 2022 showed an FVC and 100% and a DLCO of 90. Her symptoms are minimal and has not been progressing. -I agree with continued watchful waiting. -We discussed antifibrotics but we feel the side effects outweigh any benefits especially in light of very slow progression. -repeat PFT and 6 mn walk test 2. Moderate persistent asthma 3. EMY on CPAP 4.Allergic rhinitis 5. Class 2 obesity [1] Past Medical History: Diagnosis Date Allergic rhinitis Coronary artery disease GERD (gastroesophageal reflux disease) Hypertension Obesity Pulmonary arterial hypertension (Multi) Sleep apnea, obstructive [2] No family history on file. [3] Allergies Allergen Reactions Acetaminophen Unknown Amlodipine Swelling Amoxicillin Other SOB Amoxicillin-Pot Clavulanate Other Shortness of Breath - Called and complained that caused SOB per chart review 03/16/24 Carvedilol Unknown Ciprofloxacin Unknown Clarithromycin Unknown Clavulanic Acid Unknown Clonidine Unknown Codeine Other SOB Dicyclomine Other SOB Diltiazem Unknown Diltiazem Hcl Unknown Doxycycline Nausea/vomiting Vomiting after the first dose, intense. Doxylamine Unknown Duloxetine Unknown Guaifenesin Unknown Guaifenesin-Sodium Citrate Other jittery Hydrocodone Unknown Hydrocodone-Acetaminophen Unknown Iodinated Contrast Media Unknown Iopromide Unknown Levofloxacin Unknown Losartan Unknown Lovastatin Unknown Meloxicam Swelling Metronidazole Itching Morphine Itching Nifedipine Unknown Rosuvastatin Unknown Sulfabenzamide Unknown Sulfamethoxazole Unknown Trimethoprim Unknown Valsartan Swelling Adhesive Rash Adhesive Tape-Silicones Rash Sulfa (Sulfonamide Antibiotics) Rash documented in this encounter [facility] Work Phone: 08-31-2024 Instructions Flores Alonzo MD - 08/31/2024 1:00 PM EDT Dear Whitney Ruiz It was nice seeing you today. We discussed the following: You have pulmonary fibrosis dating back to 2015. It has slightly progressed over the last 8 years. You continue to do well and you are minimally symptomatic. We could be dealing with idiopathic pulmonary fibrosis that is been very slowly progressing. We discussed the antifibrotic medications that are used to treat IPF and could slow down progression. But given side effects and the slow progression of your condition we decided to hold off and continue watchful waiting. Repeat PFT and a 6-minute walk in the next few months. Follow-up with Dr. Patino Continue allergy and asthma treatment like he is doing Should you have any questions Please Call my paraprofessional education assistant Jared Harmon at [phone] or our pulmonary nurse Florence Linn [phone]. documented in this encounter [facility] Work Phone: 08-29-2024 History of Present illness Narrative SUBJECTIVE Whitney Ruiz is a 79 year old female here today for a check up on her medical problems. Chief Complaint Patient presents with: Back Pain: states going on for years but worse for about the last month HPI Arlette is a 79-year-old female with a history of SVT, presenting with worsening mid-back pain and urinary incontinence. Arlette reports worsening mid-back pain, described as a tightness and spasm-like sensation, localized to the paraspinal muscles and radiating to the costal margin. The pain is exacerbated by standing and sitting, and alleviated by lying down. She has not taken her prescribed pain medication, Percocet, for this issue. She has tried heat and Tylenol without significant relief. She expresses reluctance to use muscle relaxants due to concerns about potential effects on her heart, given her history of SVT. She also reports worsening urinary incontinence, describing difficulty controlling urine flow when attempting to remove her pants, resulting in urine leakage onto her pad and underwear. She notes a malodorous urine and questions if it is related to her blood glucose levels, which was 169 mg/dL this morning. She plans to follow up with her urologist, Dr. Charles, regarding these symptoms. Additionally, she mentions ear pain radiating from her ear to her neck and plans to consult her ENT specialist for further evaluation. Her medications were reviewed today and her list is now up to date. Medications Current Outpatient Medications Medication Sig lisinopril (ZESTRIL) 5 mg tablet Take 1 tablet by mouth once daily. azelastine 0.1% nasal spray Use 1 Coleman in each nostril two times a day. fluticasone (FLONASE) 50 mcg/actuation nasal spray Use 1-2 Sprays in each nostril once daily as needed for cold/allergy symptoms. Takes daily as needed hydrocortisone 2.5 % cream Apply 1 application to affected area three times a day as needed (itchy skin lesion on chest). Apply thin layer as directed torsemide (DEMADEX) 10 mg tablet Take 1 tablet by mouth once daily as needed (edema). Simethicone 125 mg chewable tablet Take 1 tablet by mouth every 6 hours as needed. furosemide (LASIX) 10 mg/mL solution Take by mouth as directed. mecobalamin (B12 ACTIVE ORAL) Take by mouth. omeprazole (PRILOSEC) 20 mg capsule Take 1 capsule by mouth once daily. as directed albuterol HFA (PROVENTIL HFA, VENTOLIN HFA) 90 mcg/actuation inhaler Inhale 1-2 Puffs as instructed every 4 hours as needed (for wheezing and shortness of breath). Lactobacillus acidophilus (PROBIOTIC ORAL) Take by mouth. ACETAMINOPHEN (TYLENOL ORAL) Take 500 mg by mouth as needed. aspirin, enteric coated (ASPIRIN, ENTERIC COATED) 81 mg EC tablet Take 81 mg by mouth once daily. famotidine (PEPCID) 40 mg tablet Take 1 tablet by mouth once daily. tiZANidine (ZANAFLEX) 2 mg tablet Take 1 tablet by mouth every 8 hours as needed. nitrofurantoin monohydrate and macrocrystal (MACROBID) 100 mg capsule Take 1 capsule by mouth two times a day. flash glucose sensor (FREESTYLE ALEX 2 SENSOR) kit 1 Each every 2 weeks. E11.9 DM type 2, Insulin: No verapamil SR (CALAN SR) 120 mg CR tablet Take 120 mg by mouth daily at bedtime. (Patient not taking: Reported on 08/29/2024) sucralfate (CARAFATE) 1 gram tablet Take 1 g by mouth two times a day. (Patient not taking: Reported on 08/29/2024) metoprolol tartrate, short acting, (LOPRESSOR) 25 mg tablet Take 1 tablet by mouth two times a day. (Patient not taking: Reported on 05/23/2024) CPAP Continue settings of Auto PAP to 5-15 cm of water with humidification. Continue orders for: Mask (per patient preference) optional chin strap (if indicated) , filters, tubing, humidifier and lifetime supplies. potassium chloride (K-TAB) 10 mEq tablet Take 1 tablet by mouth once daily as needed (When taking diuretic). DAILY (Patient not taking: Reported on 05/23/2024) blood sugar diagnostic (BLOOD GLUCOSE TEST) test strip Test blood sugar 1 time daily. Dx: Type 2 DM - Controlled E11.9 Insulin: No. Lancets Test blood sugar(s) 2 times daily and as needed. To go with lancet pen with glucometer Dx: Type 2 DM - Controlled E11.9 Insulin: No flash glucose scanning reader (FREESTYLE ALEX 2 READER) Check sugars at least 4 times daily MULTI-VITAMIN ORAL Take by mouth. (Patient not taking: Reported on 07/06/2024) COMPOUNDED PRESCRIPTION Powerstep full length original insert (M12.571) Traumatic arthritis of foot, right (primary encounter diagnosis) (Patient not taking: Reported on 09/30/2023) COMPOUNDED PRESCRIPTION New CPAP with supplies CPAP pressure 12 cm H2O. 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 ALLERGIES Allergen Reactions Codeine Shortness of Breath Vicodin [Hydrocodon* Intolerance cardiac arrest Adhesive Rash Augmentin [Amoxicil* Shortness of Breath Called and complained that caused SOB Biaxin [Clarithromy* Mental Status Change Cardizem [Diltiazem] Intolerance itching Ciprofloxacin Other: See Comments Muscle pain Clonidine Intolerance low heart rate to 42; BP also dropped; tried patch and was okay for a while but then stopped since affected thinking Coreg [Carvedilol] Intolerance grumpy, runny nose Crestor [Rosuvastat* Intolerance muscle aches all over Cymbalta [Duloxetin* Other: See Comments Elevated BP and blood sugar went up Dicyclomine Shortness of Breath Diovan [Valsartan] Swelling In feet, legs & ankles Doxycycline Vomiting Vomiting after the first dose, intense. Flagyl [Metronidazo* Itching Guaifenesin-Sodium * Intolerance jittery Levofloxacin Other: See Comments Muscle pain Losartan Other: See Comments Made me lose hair. Low back pain, stomach upset Lovastatin Intolerance Muscle aches all over Mobic [Meloxicam] lips swell Morphine Itching possibly was from the IV or tape since was from IV morphine; only affected arm of hand had IV in Nifedipine Intolerance palpitations; also to see if runny nose resolved (did not) Norvasc [Amlodipine* Swelling Sulfa (Sulfonamide * Rash Ultravist [Iopromid* Other: See Comments Pt sts with previous cat scan she had delayed chest tightness ACTIVE PROBLEM LIST Ipf (Idiopathic Pulmonary Fibrosis) ([facility]) - 05/05/2023 Svt (Supraventricular Tachycardia) ([facility]) - 08/18/2022 Obesity, Class II, Bmi 35-39.9 - 08/18/2022 Ild (Interstitial Lung Disease) ([facility]) - 09/29/2019 History of Supraventricular Tachycardia - 10/24/2018 Pvc's (Premature Ventricular Contractions) - 10/02/2018 Premature Atrial Contractions - 10/02/2018 Palpitations - 10/02/2018 Lung Nodule - 01/23/2017 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 Perry managing; biopsy 02/29/12 Shortness of Breath On Exertion - 10/27/2013 Comment: Has been having SOB for a long time but worse in the last 1 week, 2 weeks ago she had throat drainage and soreness, She had a culture which was negative She was given ABX on Thursday Developed a fever after that so she cont taking the abx although she initially didn't want to Lipoma of Unspecified Site - 01/13/2013 Abdominal Mass - 12/23/2012 Osteopenia - 12/14/2012 Comment: [facility] 10/2012 osteopenia, outside BMD in 2010 also showed osteopenia Occipital Neuralgia - 09/29/2012 Coronary Artery Disease Involving [place] Coronary Artery of [place] Heart Without Angina Pectoris - 04/16/2012 Personal History of Colonic Polyps - 01/07/2012 Osteoarthritis - 06/27/2011 Comment: Dr. Cuellar, rheumatology in [facility]. Other Hammer Toe (Acquired) - 04/21/2011 Ddd (Degenerative Disc Disease), Cervical - 04/11/2011 Comment: hx sciatica Cervical Spondylosis Without Myelopathy - 01/31/2011 Porokeratosis - 12/18/2010 Vitamin D Deficiency - 04/18/2009 Hyperlipidemia - 04/05/2009 Gerd (Gastroesophageal Reflux Disease) Obstructive Sleep Apnea - 10/12/2007 Comment: KIRAN Gonzales at [facility] oversees PAP use Essential Hypertension - 04/01/2007 Mild Intermittent Asthma With Acute Exacerbation ([facility]) Diaphragmatic Hernia Comment: Hiatal hernia Social History Tobacco Use Smoking status: Former Current packs/day: 0.00 Average packs/day: 1 pack/day for 12.0 years (12.0 ttl pk-yrs) Types: Cigarettes Start date: 02/21/1963 Quit date: 03/30/1972 Years since quittin.4 Smokeless tobacco: Never Tobacco comments: Mother smoked in childhood home, spouse of 45 years also smoked in home. Vaping Use Vaping status: Never Used Substance Use Topics Alcohol use: No Drug use: No Review of Systems Respiratory: Negative. Cardiovascular: Negative. Musculoskeletal: Positive for back pain. OBJECTIVE BP 166/90 Pulse 70 Wt 184 lb 4.9 oz (83.6kg) SpO2 98% Physical Exam Vitals and nursing note reviewed. Constitutional: General: She is awake. She is not in acute distress. Appearance: Normal appearance. She is well-developed and well-groomed. She is not ill-appearing, toxic-appearing or diaphoretic. HENT: Head: Normocephalic. Right Ear: External ear normal. Left Ear: External ear normal. Nose: Nose normal. Eyes: General: Vision grossly intact. Conjunctiva/sclera: Conjunctivae normal. Pupils: Pupils are equal, round, and reactive to light. Neck: Vascular: No JVD. Trachea: Trachea normal. Cardiovascular: Rate and Rhythm: Normal rate and regular rhythm. Pulses: Normal pulses. Heart sounds: Normal heart sounds. No murmur heard. Pulmonary: Effort: Pulmonary effort is normal. No accessory muscle usage, prolonged expiration or respiratory distress. Breath sounds: Normal breath sounds. Musculoskeletal: Cervical back: Neck supple. Skin: General: Skin is warm and dry. Capillary Refill: Capillary refill takes less than 2 seconds. Neurological: General: No focal deficit present. Mental Status: She is alert and oriented to person, place, and time. Mental status is at baseline. Psychiatric: Attention and Perception: Attention and perception normal. Mood and Affect: Mood and affect normal. Speech: Speech normal. Behavior: Behavior normal. Behavior is cooperative. Thought Content: Thought content normal. Cognition and Memory: Cognition and memory normal. Judgment: Judgment normal. ASSESSMENT/PLAN: 1. Acute UTI (N39.0) Urine dip positive for trace blood and large amount of leukocytes. Patient reports urinary urgency and malodorous urine. - Initiated Macrobid therapy. - Follow-up with Dr. Charles in urology. 2. Muscle strain (T14.8XXA) Muscle spasm of back (M62.830) Localized tenderness and tightness in the paraspinal muscles of the thoracic region. Pain improves with recumbency, suggesting a muscular etiology. - Prescribed Tizanidine 2 mg, instructed to take half a tablet initially, up to three times daily as needed. - Advised use of warm, moist heat application to the affected area. - Recommended trial of ibuprofen for additional anti-inflammatory effect, given recent stable renal function tests. - Patient to monitor symptoms and report any worsening or lack of improvement. Recording using [employer] software for draft documentation of the visit was discussed with the patient/authorized benefits representative; all questions welcomed and answered. Patient/authorized benefits representative agreed to proceed Portions of this note have been entered by ancillary staff. I have reviewed and when necessary edited, so that they are an adequate record of my encounter with this patient Please note that parts of this document were created using voice recognition software and therefore may contain grammatical errors. Patient verbalizes understanding of instructions from today's visit and in agreement with treatment plan. Questions answered. Agrees to call the office if questions, concerns of issues with acute symptoms not improving or if they worsen. See diagnoses and orders for additional plan(s). Allergies and medications were reviewed, list was updated, and refills given if needed. Past medical, surgical, social, and family history reviewed and updated as appropriate. Encouraged proper diet & exercise as well as compliance with taking medications. Age-appropriate health preventative measures were discussed. Return if symptoms worsen or fail to improve, for Keep next scheduled appointment.. Kojo Frederick APRN-JACKIE documented in this encounter [facility] 08-29-2024 Note HNO ID: [id number] Author: KOJO FREDERICK APRN.CNP Service: ? Author Type: Nurse Practitioner Type: Progress Notes Filed: 08/29/2024 12:45 Note Text: SUBJECTIVE Whitney Ruiz is a 79 year old female here today for a check up on her medical problems. Chief Complaint Patient presents with: Back Pain: states going on for years but worse for about the last month HPI Arlette is a 79-year-old female with a history of SVT, presenting with worsening mid-back pain and urinary incontinence. Arlette reports worsening mid-back pain, described as a tightness and spasm-like sensation, localized to the paraspinal muscles and radiating to the costal margin. The pain is exacerbated by standing and sitting, and alleviated by lying down. She has not taken her prescribed pain medication, Percocet, for this issue. She has tried heat and Tylenol without significant relief. She expresses reluctance to use muscle relaxants due to concerns about potential effects on her heart, given her history of SVT. She also reports worsening urinary incontinence, describing difficulty controlling urine flow when attempting to remove her pants, resulting in urine leakage onto her pad and underwear. She notes a malodorous urine and questions if it is related to her blood glucose levels, which was 169 mg/dL this morning. She plans to follow up with her urologist, Dr. Charles, regarding these symptoms. Additionally, she mentions ear pain radiating from her ear to her neck and plans to consult her ENT specialist for further evaluation. Her medications were reviewed today and her list is now up to date. Medications Current Outpatient Medications Medication Sig lisinopril (ZESTRIL) 5 mg tablet Take 1 tablet by mouth once daily. azelastine 0.1% nasal spray Use 1 Coleman in each nostril two times a day. fluticasone (FLONASE) 50 mcg/actuation nasal spray Use 1-2 Sprays in each nostril once daily as needed for cold/allergy symptoms. Takes daily as needed hydrocortisone 2.5 % cream Apply 1 application to affected area three times a day as needed (itchy skin lesion on chest). Apply thin layer as directed torsemide (DEMADEX) 10 mg tablet Take 1 tablet by mouth once daily as needed (edema). Simethicone 125 mg chewable tablet Take 1 tablet by mouth every 6 hours as needed. furosemide (LASIX) 10 mg/mL solution Take by mouth as directed. mecobalamin (B12 ACTIVE ORAL) Take by mouth. omeprazole (PRILOSEC) 20 mg capsule Take 1 capsule by mouth once daily. as directed albuterol HFA (PROVENTIL HFA, VENTOLIN HFA) 90 mcg/actuation inhaler Inhale 1-2 Puffs as instructed every 4 hours as needed (for wheezing and shortness of breath). Lactobacillus acidophilus (PROBIOTIC ORAL) Take by mouth. ACETAMINOPHEN (TYLENOL ORAL) Take 500 mg by mouth as needed. aspirin, enteric coated (ASPIRIN, ENTERIC COATED) 81 mg EC tablet Take 81 mg by mouth once daily. famotidine (PEPCID) 40 mg tablet Take 1 tablet by mouth once daily. tiZANidine (ZANAFLEX) 2 mg tablet Take 1 tablet by mouth every 8 hours as needed. nitrofurantoin monohydrate and macrocrystal (MACROBID) 100 mg capsule Take 1 capsule by mouth two times a day. flash glucose sensor (FREESTYLE ALEX 2 SENSOR) kit 1 Each every 2 weeks. E11.9 DM type 2, Insulin: No verapamil SR (CALAN SR) 120 mg CR tablet Take 120 mg by mouth daily at bedtime. (Patient not taking: Reported on 08/29/2024) sucralfate (CARAFATE) 1 gram tablet Take 1 g by mouth two times a day. (Patient not taking: Reported on 08/29/2024) metoprolol tartrate, short acting, (LOPRESSOR) 25 mg tablet Take 1 tablet by mouth two times a day. (Patient not taking: Reported on 05/23/2024) CPAP Continue settings of Auto PAP to 5-15 cm of water with humidification. Continue orders for: Mask (per patient preference) optional chin strap (if indicated) , filters, tubing, humidifier and lifetime supplies. potassium chloride (K-TAB) 10 mEq tablet Take 1 tablet by mouth once daily as needed (When taking diuretic). DAILY (Patient not taking: Reported on 05/23/2024) blood sugar diagnostic (BLOOD GLUCOSE TEST) test strip Test blood sugar 1 time daily. Dx: Type 2 DM - Controlled E11.9 Insulin: No. Lancets Test blood sugar(s) 2 times daily and as needed. To go with lancet pen with glucometer Dx: Type 2 DM - Controlled E11.9 Insulin: No flash glucose scanning reader (FREESTYLE ALEX 2 READER) Check sugars at least 4 times daily MULTI-VITAMIN ORAL Take by mouth. (Patient not taking: Reported on 07/06/2024) COMPOUNDED PRESCRIPTION Powerstep full length original insert (M12.571) Traumatic arthritis of foot, right (primary encounter diagnosis) (Patient not taking: Reported on 09/30/2023) COMPOUNDED PRESCRIPTION New CPAP with supplies CPAP pressure 12 cm H2O. 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 ALLERGIES Allergen Reactions Codeine Shortness of Breath Vicod (more content not included)... [facility] 08-04-2024 History of Present illness Narrative Counseling: The patient was counseled regarding diagnostic results, instructions for management, risk factor reductions, prognosis, patient and family education, impressions, risks and benefits of treatment options and importance of compliance with treatment. Chief Complaint: The patient presents today for 3-month followup of CAD, HTN and palpitations. History Of Present Illness: Whitney Ruiz is an 79 year old female patient who presents today for 3-month followup of CAD, HTN and palpitations. Her PMH is significant for pulmonary fibrosis, EMY (CPAP), mild CAD, dyslipidemia, HTN, palpitations, thyroid nodule, DM type 2, GERD, diaphragmatic hernia, and asthma. Over the past 3 months, the patient states that she has done relatively well from a cardiac standpoint. She denies any CP or discomfort. She reports left sternal pain with reproducible tenderness. She also reports persistent SOB. Per the patient, she is scheduled to see a pulmonary fibrosis specialist this month. The patient is compliant with her prescribed medications. Last Recorded Vitals: Vitals: 08/04/24 1307 08/04/24 1324 BP: 124/80 Weight: 83 kg (183 lb) Height: 1.524 m (5') Past Surgical History: She has a past surgical history that includes Cardiac catheterization; Lung biopsy; and Bronchoscopy. Social History: She reports that she quit smoking about 53 years ago. Her smoking use included cigarettes. She started smoking about 60 years ago. She has a 3.5 pack-year smoking history. She has never been exposed to tobacco smoke. She has never used smokeless tobacco. She reports that she does not drink alcohol and does not use drugs. Family History: No family history on file. Allergies: Acetaminophen, Amlodipine, Amoxicillin, Amoxicillin-pot clavulanate, Carvedilol, Ciprofloxacin, Clarithromycin, Clavulanic acid, Clonidine, Codeine, Dicyclomine, Diltiazem, Diltiazem hcl, Doxycycline, Doxylamine, Duloxetine, Guaifenesin, Guaifenesin-sodium citrate, Hydrocodone, Hydrocodone-acetaminophen, Iodinated contrast media, Iopromide, Levofloxacin, Losartan, Lovastatin, Meloxicam, Metronidazole, Morphine, Nifedipine, Rosuvastatin, Sulfabenzamide, Sulfamethoxazole, Trimethoprim, Valsartan, Adhesive, Adhesive tape-silicones, and Sulfa (sulfonamide antibiotics) Outpatient Medications: Current Outpatient Medications Medication Instructions acetaminophen (TYLENOL) 1,000 mg, Daily PRN albuterol 90 mcg/actuation inhaler 1 puff, Every 4 hours PRN aspirin 81 mg capsule 1 tablet, Daily azelastine (Astelin) 137 mcg (0.1 %) nasal spray 1 spray, Each Nostril, 2 times daily, Use in each nostril as directed blood sugar diagnostic (Blood Glucose Test) strip Test blood sugar(s) 2 times daily and as needed for symptoms of high or low sugars. Dx: Type 2 DM - Controlled E11.9 Insulin: No. Labile sugars that sometimes drop low so needs to check at least twice daily (taking glipizide) cefdinir (Omnicef) 300 mg capsule 1 capsule, Every 12 hours scheduled (0630,1830) cholecalciferol (VITAMIN D-3) 125 mcg, Daily cyanocobalamin (VITAMIN B-12) 500 mcg, Every other day famotidine (Pepcid) 40 mg tablet TAKE 1 TABLET BY MOUTH DAILY before bedtime fluticasone (Flonase) 50 mcg/actuation nasal spray 1-2 sprays FreeStyle Alex 2 Sensor kit CHANGE SENSOR EVERY 2 WEEKS Gas Relief Extra Strength 125 mg, Every 6 hours PRN L. acidophilus/Bifid. animalis 15.5 billion cell capsule Take by mouth. lisinopril 20 mg, oral, Daily (629) naphazoline-glycerin (Clear Eyes Redness Relief) 0.012-0.2 % drops 1 Application, As needed nystatin (Mycostatin) 100,000 unit/mL suspension omeprazole (PRILOSEC) 20 mg, Daily OneTouch Delica Plus Lancet 30 gauge misc use to test BLOOD SUGAR TWICE DAILY NEEDED potassium chloride CR 10 mEq ER tablet 10 mEq, Daily PRN sucralfate (CARAFATE) 1 g, 3 times daily torsemide (DEMADEX) 10 mg, Daily PRN triamcinolone (Kenalog) 0.1 % cream Twice daily to affected areas for 1-2 weeks, then weekends only. Repeat every few months for flares. Review of Systems Respiratory: Positive for shortness of breath. Musculoskeletal: Left sternal pain All other systems reviewed and are negative. Physical Exam: Constitutional: Appearance: Healthy appearance. Not in distress. Neck: Vascular: Carotid bruit present. No JVR. JVD normal. Pulmonary: Effort: Pulmonary effort is normal. Breath sounds: Normal breath sounds. No wheezing. No rhonchi. No rales. Chest: Chest wall: Not tender to palpatation. Cardiovascular: PMI at left midclavicular line. Normal rate. Regular rhythm. Normal S1. Normal S2. Murmurs: There is no murmur. No gallop. No click. No rub. Pulses: Intact distal pulses. Edema: Peripheral edema absent. Abdominal: General: Bowel sounds are normal. Palpations: Abdomen is soft. Tenderness: There is no abdominal tenderness. Musculoskeletal: Normal range of motion. General: No tenderness. Skin: General: Skin is warm and dry. Neurological: General: No focal deficit present. Mental Status: Alert and oriented to person, place and time. Last Labs: CBC - Lab Results Component Value Date WBC 8.9 03/15/2024 HGB 13.2 03/15/2024 HCT 41.1 03/15/2024 MCV 91 03/15/2024 PLT 285 03/15/2024 CMP - Lab Results Component Value Date CALCIUM 9.0 03/17/2024 PHOS 3.4 08/21/2021 PROT 6.3 (L) 03/15/2024 ALBUMIN 3.9 03/15/2024 AST 13 03/15/2024 ALT 8 03/15/2024 ALKPHOS 56 03/15/2024 BILITOT 0.5 03/15/2024 LIPID PANEL - Lab Results Component Value Date CHOL 217 (H) 08/21/2021 TRIG 102 08/21/2021 HDL 41.5 08/21/2021 CHHDL 5.2 (A) 08/21/2021 LDLF 155 (H) 08/21/2021 VLDL 20 08/21/2021 RENAL FUNCTION PANEL - Lab Results Component Value Date GLUCOSE 114 (H) 03/17/2024 NA 141 03/17/2024 K 3.8 03/17/2024 CL 109 (H) 03/17/2024 CO2 25 03/17/2024 ANIONGAP 11 03/17/2024 BUN 12 03/17/2024 CREATININE 0.52 03/17/2024 CALCIUM 9.0 03/17/2024 PHOS 3.4 08/21/2021 ALBUMIN 3.9 03/15/2024 Lab Results Component Value Date BNP 240 (H) 03/15/2024 HGBA1C 6.6 (H) 05/25/2024 Last Cardiology Tests: 04/15/2024 - HR CT Chest 1. Basal and subpleural predominant reticulations with traction bronchiectasis/bronchiolectasis and honeycombing, consistent with 'Typical UIP' pattern of pulmonary fibrosis*. Findings are intervally progressed since 2018. 2. Cardiomegaly with left atrial enlargement. Correlate with echocardiography. 3. Sequelae of prior granulomatous disease. 4. Severe coronary artery calcifications. 04/01/2024 to 04/15/2024 - Holter Monitor 1. Predominant underlying rhythm was sinus rhythm; min HR 46 bpm, max HR 226 bpm, avg HR 61 bpm. 2. 1 run of ventricular tachycardia; 6 beats, max rate 226 bpm, avg 186 bpm. 3. 48 supraventricular tachycardia runs occurred; fastest interval lasting 5 beats with max rate 171 bpm, longest lasting 14 beats with avg rate 105 bpm. 4. Isolated SVEs were rare, SVE couplets were rare, and SVE triplets were rare. 5. Isolated VEs were rare, and no VE couplets or VE triplets were present. 09/29/2023 - TTE 1. The left ventricular systolic function is normal, with a visually estimated ejection fraction of 65%. 2. Left ventricular diastolic filling was indeterminate. 3. There is normal right ventricular global systolic function. 4. Calcified mitral annulus and leaflets; with localized calcified nodule in the posterior leaflet of the mitral valve. 5. No significant changes compared to prior echocardiogram dated 07/21/2022. 09/14/2023 - Vascular Lab Carotid Artery Duplex 1. Right Carotid: Findings are consistent with less than 50% stenosis of the right proximal internal carotid artery. The right proximal internal carotid artery is normal. Right external carotid artery appears patent with no evidence of stenosis. No evidence of hemodynamically significant stenosis of the right common carotid artery. The right vertebral artery is patent with antegrade flow. No evidence of hemodynamically significant stenosis in the right subclavian artery. 2. Left Carotid: Findings are consistent with less than 50% stenosis of the left proximal internal carotid artery. The left proximal internal carotid artery is normal. Left external carotid artery appears patent with no evidence of stenosis. No evidence of hemodynamically significant stenosis of the left common carotid artery. The left vertebral artery is patent with antegrade flow. No evidence of hemodynamically significant stenosis in the left subclavian artery. 07/21/2022 - TTE 1. Left ventricular systolic function is normal with a 60-65% estimated ejection fraction. 2. Spectral Doppler shows an impaired relaxation pattern of left ventricular diastolic filling. 3. The left atrium is moderately dilated. 4. There is moderate mitral annular calcification. 07/03/2022 to 07/17/2022 - Holter Monitor 1. Predominant underlying rhythm was sinus rhythm; min HR 43 bpm, max HR 167 bpm, avg HR 56 bpm. 2. One run of ventricular tachycardia; 5 beats, max rate 132 bpm. 3. 45 supraventricular tachycardia runs. 08/21/2021 - Cardiac Catheterization (LH/RH) 1. Mild, non-obstructive coronary artery disease in right-dominant circulation. 2. Elevated right-sided filling pressure. 3. Normal left-sided filling pressure and pulmonary pressure. 4. No gradient on pull-back to suggest aortic stenosis. 5. Preserved CO/CI by assumed Lisset method. 08/21/2021 - CTA Chest for PE 1. No evidence of acute pulmonary embolism. 2. Worsening interstitial abnormality likely at least in part related to lower lung volumes. HRCT pattern of pulmonary fibrosis. 07/06/2020 - Cardiac Catheterization (LH) 1. Moderate non-obstructive coronary artery disease. 2. The right posterior descending artery showed moderate atherosclerotic disease. 3. Elevated LV filling pressures. 4. Left Ventricular end-diastolic pressure = 21. Lab review: I have personally reviewed the laboratory result(s). Assessment/Plan 1) Mild CAD On ASA 81 mg daily, lisinopril 20 mg daily, torsemide 10 mg p.r.n. Metoprolol previously discontinued s/t bradycardia [facility] 08/21/2021 with mild non-obstructive CAD Holter 07/03/2022 to 07/17/2022 with 1 run of ventricular tachycardia, 45 runs of SVT, ventricular bigeminy TTE 09/29/2023 with LVEF 65%, normal RV systolic function, calcified mitral annulus and leaflets with localized calcified nodule in the posterior leaflet of the mitral valve. Hospital admission 03/15/2024 to 03/17/2024 with syncope, pneumonia and mild diverticulitis. HR CT chest 04/15/2024 with basal and subpleural predominant reticulations with traction bronchiectasis/bronchiolectasis and honeycombing consistent with Typical UIP pattern of pulmonary fibrosis (intervally progressed since 2018), cardiomegaly with left atrial enlargement, sequelae of prior granulomatous disease, severe coronary artery calcifications. Denies CP or discomfort Reports left sternal pain with reproducible tenderness - likely s/t costochondritis/arthritis Continue current medical Rx F/U 6 months 2) Pulmonary Fibrosis Seen on CTA 08/21/2021 Compliant with CPAP HR CT chest 04/15/2024 with basal and subpleural predominant reticulations with traction bronchiectasis/bronchiolectasis and honeycombing consistent with Typical UIP pattern of pulmonary fibrosis (intervally progressed since 2018), sequelae of prior granulomatous disease. Reports persistent SOB Scheduled with pulmonary fibrosis specialist this month Reports left sternal pain with reproducible tenderness - likely s/t costochondritis/arthritis Recommend f/u with PCP re: rheumatology referral (?arthritis contributing to fibrosis) 3) HTN Stable On lisinopril 20 mg daily, torsemide 10 mg p.r.n. Amlodipine caused LE edema in the past Metoprolol previously discontinued s/t bradycardia Continue current medical Rx F/U 6 months 4) BLE Edema On torsemide 10 mg daily p.r.n. Occurs after prolonged sitting Compression stockings Stable F/U 6 months 5) Dyslipidemia Lipid panel 03/24/2023 with elevated total cholesterol and LDL of 213 and 152 respectively Advised on aggressive secondary risk factor modification F/U 6 months 6) Carotid Bruit Carotid duplex 09/14/2023 with <50% stenosis bilaterally 7) Syncope - Palpitations Hospital admission 03/15/2024 to 03/17/2024 after having a syncopal episode Found to be bradycardic Holter 04/01/2024 to 04/15/2024 with 1 run of NSVT lasting 6 beats with max rate 226 bpm, 48 runs of SVT F/U 6 months Scribe Attestation By signing my name below, I, Keyonna Bolton, Scribe, attest that this documentation has been prepared under the direction and in the presence of Franck Lambert MD. documented in this encounter [facility] Work Phone: 08-04-2024 Instructions Keyonna Bolton - 08/04/2024 1:15 PM EDT Continue all current medications as prescribed. Dr. Lambert has recommended that you followup with your primary care provider to discuss a referral to a game technician. Attend your appointment with the lung specialist as scheduled. Followup with Dr. Lambert in 6 months. If you have any questions or cardiac concerns, please call our office at [phone]. documented in this encounter [facility] Work Phone: 07-13-2024 History of Present illness Narrative Radiology Service Progress Note PATIENT NAME: Whitney Ruiz DATE OF SERVICE: July 13, 2024 TIME: 2:06 PM PATIENT IDENTITY VERIFICATION COMPLETED USING TWO (2) IDENTIFIERS: Name and Date of confirmed by patient verbally. FALL SCREENING: Has the patient had 2 falls in the last year or 1 fall with injury or currently using an Ambulatory Assistive Device (Walker, Cane, Wheelchair, Crutches, etc.)? Yes, Patient High Risk for Falls What interventions were put in place to prevent falls during this visit? Offered Assistance with Transfers/Clothing and Increased Observations by Caregivers PATIENT GENDER DATA: Assigned female at . status: : No status: NO. PATIENT RELEVANT IMPLANT DATA REVIEWED: Not Applicable PATIENT PRESENTS WITH AN IMPLANTABLE OR ATTACHED SKILLED HELPER: No RADIOLOGY DEPARTMENT: Ultrasound PERIPHERAL IV DATA: Not applicable SIGNED BY: Nighat Brewster RDMS July 13, 2024 2:06 PM documented in this encounter [facility] 07-13-2024 Note HNO ID: [id number] Author: NIGHAT BREWSTER RDMS Service: ? Author Type: Psychiatric Np Type: Progress Notes Filed: 07/13/2024 14:07 Note Text: Radiology Service Progress Note PATIENT NAME: Whitney Ruiz DATE OF SERVICE: July 13, 2024 TIME: 2:06 PM PATIENT IDENTITY VERIFICATION COMPLETED USING TWO (2) IDENTIFIERS: Name and Date of confirmed by patient verbally. FALL SCREENING: Has the patient had 2 falls in the last year or 1 fall with injury or currently using an Ambulatory Assistive Device (Walker, Cane, Wheelchair, Crutches, etc.)? Yes, Patient High Risk for Falls What interventions were put in place to prevent falls during this visit? Offered Assistance with Transfers/Clothing and Increased Observations by Caregivers PATIENT GENDER DATA: Assigned female at . status: : No status: NO. PATIENT RELEVANT IMPLANT DATA REVIEWED: Not Applicable PATIENT PRESENTS WITH AN IMPLANTABLE OR ATTACHED SKILLED HELPER: No RADIOLOGY DEPARTMENT: Ultrasound PERIPHERAL IV DATA: Not applicable SIGNED BY: Nighat Brewster RDMS July 13, 2024 2:06 PM [facility] 07-06-2024 Note HNO ID: [id number] Author: KOJO FREDERICK APRN.JACKIE Service: ? Author Type: Nurse Practitioner Type: Progress Notes Filed: 07/06/2024 16:26 Note Text: SUBJECTIVE Whitney Ruiz is a 79 year old female here today for acute concern. Chief Complaint Patient presents with: Ear Problem: right with a sore throat x 3 days sinus drainage which is clear slight cough in the morning HPI Whitney Ruiz is a 79 year old female. She is an established patient of Kristy Brower MD. She is here today for concerns of her right ear has been bothering her for about a month. She also has a sore throat. Slight drainage and cough. Also wants to know if labs are ordered to check her parathyroid given high calcium levels. Would like to update thyroid ultrasound. Her medications were reviewed today and her list is now up to date. Medications Current Outpatient Medications Medication Sig verapamil SR (CALAN SR) 120 mg CR tablet Take 120 mg by mouth daily at bedtime. sucralfate (CARAFATE) 1 gram tablet Take 1 g by mouth two times a day. lisinopril (ZESTRIL) 5 mg tablet Take 1 tablet by mouth once daily. (Patient taking differently: Take 10 mg by mouth once daily. Changed per court bailiff at ) azelastine 0.1% nasal spray Use 1 Coleman in each nostril two times a day. fluticasone (FLONASE) 50 mcg/actuation nasal spray Use 1-2 Sprays in each nostril once daily as needed for cold/allergy symptoms. Takes daily as needed famotidine (PEPCID) 40 mg tablet Take 40 mg by mouth once daily. hydrocortisone 2.5 % cream Apply 1 application to affected area three times a day as needed (itchy skin lesion on chest). Apply thin layer as directed torsemide (DEMADEX) 10 mg tablet Take 1 tablet by mouth once daily as needed (edema). Simethicone 125 mg chewable tablet Take 1 tablet by mouth every 6 hours as needed. furosemide (LASIX) 10 mg/mL solution Take by mouth as directed. mecobalamin (B12 ACTIVE ORAL) Take by mouth. omeprazole (PRILOSEC) 20 mg capsule Take 1 capsule by mouth once daily. as directed albuterol HFA (PROVENTIL HFA, VENTOLIN HFA) 90 mcg/actuation inhaler Inhale 1-2 Puffs as instructed every 4 hours as needed (for wheezing and shortness of breath). Lactobacillus acidophilus (PROBIOTIC ORAL) Take by mouth. ACETAMINOPHEN (TYLENOL ORAL) Take 500 mg by mouth as needed. aspirin, enteric coated (ASPIRIN, ENTERIC COATED) 81 mg EC tablet Take 81 mg by mouth once daily. clindamycin (CLEOCIN) 300 mg capsule Take 1 capsule by mouth every 8 hours for 10 days. flash glucose sensor (FREESTYLE ALEX 2 SENSOR) kit 1 Each every 2 weeks. E11.9 DM type 2, Insulin: No metoprolol tartrate, short acting, (LOPRESSOR) 25 mg tablet Take 1 tablet by mouth two times a day. (Patient not taking: Reported on 05/23/2024) CPAP Continue settings of Auto PAP to 5-15 cm of water with humidification. Continue orders for: Mask (per patient preference) optional chin strap (if indicated) , filters, tubing, humidifier and lifetime supplies. potassium chloride (K-TAB) 10 mEq tablet Take 1 tablet by mouth once daily as needed (When taking diuretic). DAILY (Patient not taking: Reported on 05/23/2024) blood sugar diagnostic (BLOOD GLUCOSE TEST) test strip Test blood sugar 1 time daily. Dx: Type 2 DM - Controlled E11.9 Insulin: No. Lancets Test blood sugar(s) 2 times daily and as needed. To go with lancet pen with glucometer Dx: Type 2 DM - Controlled E11.9 Insulin: No flash glucose scanning reader ([employer]YLE ALEX 2 READER) Check sugars at least 4 times daily MULTI-VITAMIN ORAL Take by mouth. (Patient not taking: Reported on 07/06/2024) COMPOUNDED PRESCRIPTION Powerstep full length original insert (M12.571) Traumatic arthritis of foot, right (primary encounter diagnosis) (Patient not taking: Reported on 09/30/2023) COMPOUNDED PRESCRIPTION New CPAP with supplies CPAP pressure 12 cm H2O. 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 ALLERGIES Allergen Reactions Codeine Shortness of Breath Vicodin [Hydrocodon* Intolerance cardiac arrest Adhesive Rash Augmentin [Amoxicil* Shortness of Breath Called and complained that caused SOB Biaxin [Clarithromy* Mental Status Change Cardizem [Diltiazem] Intolerance itching Ciprofloxacin Other: See Comments Muscle pain Clonidine Intolerance low heart rate to 42; BP also dropped; tried patch and was okay for a while but then stopped since affected thinking Coreg [Carvedilol] Intolerance grumpy, runny nose Crestor [Rosuvastat* Intolerance muscle aches all over Cymbalta [Duloxetin* Other: See Comments Elevated BP and blood sugar went up Dicyclomine Shortness of Breath Diovan [Valsartan] Swelling In feet, legs AND ankles Doxycycline Vomiting Vomiting after the first dose, intense. Flagyl [Metronidazo* Itching Guaifenesin-Sodium * Intolerance jittery Levofloxacin Other: See Nikhil (more content not included)... [facility] 07-06-2024 History of Present illness Narrative SUBJECTIVE Whitney Ruiz is a 79 year old female here today for acute concern. Chief Complaint Patient presents with: Ear Problem: right with a sore throat x 3 days sinus drainage which is clear slight cough in the morning HPI Whitney Ruiz is a 79 year old female. She is an established patient of Kristy Brower MD. She is here today for concerns of her right ear has been bothering her for about a month. She also has a sore throat. Slight drainage and cough. Also wants to know if labs are ordered to check her parathyroid given high calcium levels. Would like to update thyroid ultrasound. Her medications were reviewed today and her list is now up to date. Medications Current Outpatient Medications Medication Sig verapamil SR (CALAN SR) 120 mg CR tablet Take 120 mg by mouth daily at bedtime. sucralfate (CARAFATE) 1 gram tablet Take 1 g by mouth two times a day. lisinopril (ZESTRIL) 5 mg tablet Take 1 tablet by mouth once daily. (Patient taking differently: Take 10 mg by mouth once daily. Changed per court bailiff at ) azelastine 0.1% nasal spray Use 1 Coleman in each nostril two times a day. fluticasone (FLONASE) 50 mcg/actuation nasal spray Use 1-2 Sprays in each nostril once daily as needed for cold/allergy symptoms. Takes daily as needed famotidine (PEPCID) 40 mg tablet Take 40 mg by mouth once daily. hydrocortisone 2.5 % cream Apply 1 application to affected area three times a day as needed (itchy skin lesion on chest). Apply thin layer as directed torsemide (DEMADEX) 10 mg tablet Take 1 tablet by mouth once daily as needed (edema). Simethicone 125 mg chewable tablet Take 1 tablet by mouth every 6 hours as needed. furosemide (LASIX) 10 mg/mL solution Take by mouth as directed. mecobalamin (B12 ACTIVE ORAL) Take by mouth. omeprazole (PRILOSEC) 20 mg capsule Take 1 capsule by mouth once daily. as directed albuterol HFA (PROVENTIL HFA, VENTOLIN HFA) 90 mcg/actuation inhaler Inhale 1-2 Puffs as instructed every 4 hours as needed (for wheezing and shortness of breath). Lactobacillus acidophilus (PROBIOTIC ORAL) Take by mouth. ACETAMINOPHEN (TYLENOL ORAL) Take 500 mg by mouth as needed. aspirin, enteric coated (ASPIRIN, ENTERIC COATED) 81 mg EC tablet Take 81 mg by mouth once daily. clindamycin (CLEOCIN) 300 mg capsule Take 1 capsule by mouth every 8 hours for 10 days. flash glucose sensor (FREESTYLE ALEX 2 SENSOR) kit 1 Each every 2 weeks. E11.9 DM type 2, Insulin: No metoprolol tartrate, short acting, (LOPRESSOR) 25 mg tablet Take 1 tablet by mouth two times a day. (Patient not taking: Reported on 05/23/2024) CPAP Continue settings of Auto PAP to 5-15 cm of water with humidification. Continue orders for: Mask (per patient preference) optional chin strap (if indicated) , filters, tubing, humidifier and lifetime supplies. potassium chloride (K-TAB) 10 mEq tablet Take 1 tablet by mouth once daily as needed (When taking diuretic). DAILY (Patient not taking: Reported on 05/23/2024) blood sugar diagnostic (BLOOD GLUCOSE TEST) test strip Test blood sugar 1 time daily. Dx: Type 2 DM - Controlled E11.9 Insulin: No. Lancets Test blood sugar(s) 2 times daily and as needed. To go with lancet pen with glucometer Dx: Type 2 DM - Controlled E11.9 Insulin: No flash glucose scanning reader (FREESTYLE ALEX 2 READER) Check sugars at least 4 times daily MULTI-VITAMIN ORAL Take by mouth. (Patient not taking: Reported on 07/06/2024) COMPOUNDED PRESCRIPTION Powerstep full length original insert (M12.571) Traumatic arthritis of foot, right (primary encounter diagnosis) (Patient not taking: Reported on 09/30/2023) COMPOUNDED PRESCRIPTION New CPAP with supplies CPAP pressure 12 cm H2O. 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 ALLERGIES Allergen Reactions Codeine Shortness of Breath Vicodin [Hydrocodon* Intolerance cardiac arrest Adhesive Rash Augmentin [Amoxicil* Shortness of Breath Called and complained that caused SOB Biaxin [Clarithromy* Mental Status Change Cardizem [Diltiazem] Intolerance itching Ciprofloxacin Other: See Comments Muscle pain Clonidine Intolerance low heart rate to 42; BP also dropped; tried patch and was okay for a while but then stopped since affected thinking Coreg [Carvedilol] Intolerance grumpy, runny nose Crestor [Rosuvastat* Intolerance muscle aches all over Cymbalta [Duloxetin* Other: See Comments Elevated BP and blood sugar went up Dicyclomine Shortness of Breath Diovan [Valsartan] Swelling In feet, legs & ankles Doxycycline Vomiting Vomiting after the first dose, intense. Flagyl [Metronidazo* Itching Guaifenesin-Sodium * Intolerance jittery Levofloxacin Other: See Comments Muscle pain Losartan Other: See Comments Made me lose hair. Low back pain, stomach upset Lovastatin Intolerance Muscle aches all over Mobic [Meloxicam] lips swell Morphine Itching possibly was from the IV or tape since was from IV morphine; only affected arm of hand had IV in Nifedipine Intolerance palpitations; also to see if runny nose resolved (did not) Norvasc [Amlodipine* Swelling Sulfa (Sulfonamide * Rash Ultravist [Iopromid* Other: See Comments Pt sts with previous cat scan she had delayed chest tightness ACTIVE PROBLEM LIST Ipf (Idiopathic Pulmonary Fibrosis) ([facility]) - 05/05/2023 Svt (Supraventricular Tachycardia) ([facility]) - 08/18/2022 Obesity, Class II, Bmi 35-39.9 - 08/18/2022 Ild (Interstitial Lung Disease) ([facility]) - 09/29/2019 History of Supraventricular Tachycardia - 10/24/2018 Pvc's (Premature Ventricular Contractions) - 10/02/2018 Premature Atrial Contractions - 10/02/2018 Palpitations - 10/02/2018 Lung Nodule - 01/23/2017 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 Perry managing; biopsy 02/29/12 Shortness of Breath On Exertion - 10/27/2013 Comment: Has been having SOB for a long time but worse in the last 1 week, 2 weeks ago she had throat drainage and soreness, She had a culture which was negative She was given ABX on Thursday Developed a fever after that so she cont taking the abx although she initially didn't want to Lipoma of Unspecified Site - 01/13/2013 Abdominal Mass - 12/23/2012 Osteopenia - 12/14/2012 Comment: BMP 10/2012 osteopenia, outside BMD in 2010 also showed osteopenia Occipital Neuralgia - 09/29/2012 Coronary Artery Disease Involving [place] Coronary Artery of [place] Heart Without Angina Pectoris - 04/16/2012 Personal History of Colonic Polyps - 01/07/2012 Osteoarthritis - 06/27/2011 Comment: Dr. Cuellar, rheumatology in [address] Other Hammer Toe (Acquired) - 04/21/2011 Ddd (Degenerative Disc Disease), Cervical - 04/11/2011 Comment: hx sciatica Cervical Spondylosis Without Myelopathy - 01/31/2011 Porokeratosis - 12/18/2010 Vitamin D Deficiency - 04/18/2009 Hyperlipidemia - 04/05/2009 Gerd (Gastroesophageal Reflux Disease) Obstructive Sleep Apnea - 10/12/2007 [facility] [place] [facility] Essential Hypertension - 04/01/2007 Mild Intermittent Asthma With Acute Exacerbation ([facility]) Diaphragmatic Hernia Comment: Hiatal hernia Social History Tobacco Use Smoking status: Former Current packs/day: 0.00 Average packs/day: 1 pack/day for 12.0 years (12.0 ttl pk-yrs) Types: Cigarettes Start date: 02/21/1963 Quit date: 03/30/1972 Years since quittin.3 Smokeless tobacco: Never Tobacco comments: Mother smoked in childhood home, spouse of 45 years also smoked in home. Vaping Use Vaping status: Never Used Substance Use Topics Alcohol use: No Drug use: No Review of Systems HENT: Positive for ear pain and sore throat. Respiratory: Negative for chest tightness, shortness of breath and wheezing. Cardiovascular: Negative. OBJECTIVE BP 150/90 Pulse 64 Temp (Src) 99.6 (Temporal) Wt 181 lb 14.1 oz (82.5kg) SpO2 96% Physical Exam Vitals and nursing note reviewed. Constitutional: General: She is awake. She is not in acute distress. Appearance: Normal appearance. She is well-developed and well-groomed. She is not ill-appearing, toxic-appearing or diaphoretic. HENT: Head: Normocephalic. Right Ear: External ear normal. Left Ear: External ear normal. Nose: Nose normal. Eyes: General: Vision grossly intact. Conjunctiva/sclera: Conjunctivae normal. Pupils: Pupils are equal, round, and reactive to light. Neck: Vascular: No JVD. Trachea: Trachea normal. Cardiovascular: Rate and Rhythm: Normal rate and regular rhythm. Pulses: Normal pulses. Heart sounds: Normal heart sounds. No murmur heard. Pulmonary: Effort: Pulmonary effort is normal. No accessory muscle usage, prolonged expiration or respiratory distress. Breath sounds: Normal breath sounds. Musculoskeletal: Cervical back: Neck supple. Skin: General: Skin is warm and dry. Capillary Refill: Capillary refill takes less than 2 seconds. Neurological: General: No focal deficit present. Mental Status: She is alert and oriented to person, place, and time. Mental status is at baseline. Psychiatric: Attention and Perception: Attention and perception normal. Mood and Affect: Mood and affect normal. Speech: Speech normal. Behavior: Behavior normal. Behavior is cooperative. Thought Content: Thought content normal. Cognition and Memory: Cognition and memory normal. Judgment: Judgment normal. ASSESSMENT/PLAN: 1. Sinobronchitis - ICD9: 473.9, 490, ICD10: J32.9, J40 (primary diagnosis) - Will begin treatment with as per antibiotic as written, see orders - The patient should also be given warm salt water gargles, throat lozenges and/or OTC throat spray as needed and nasal saline gtts and suction prn for the first 5-7 days of treatment. - Supportive care with plenty of fluids, rest, and analgesia prn. - CLINDAMYCIN HCL 300 MG CAPSULE 2. Hypercalcemia - ICD9: 275.42, ICD10: E83.52 Get labs done per previously placed orders, reviewed prior labs with her today. 3. Vitamin D deficiency - ICD9: 268.9, ICD10: E55.9 4. Thyroid nodule - ICD9: 241.0, ICD10: E04.1 Due for ultrasound, orders placed. - US THYROID/PARATHYROID Medical Decision Making: Data: Unique test result(s) reviewed: 3+ Unique test(s) ordered: 1 Risk: Moderate: Drug management Medical Decision Making Level: 4 - Moderate Portions of this note have been entered by ancillary staff. I have reviewed and when necessary edited, so that they are an adequate record of my encounter with this patient Please note that parts of this document were created using voice recognition software and therefore may contain grammatical errors. Patient verbalizes understanding of instructions from today's visit and in agreement with treatment plan. Questions answered. Agrees to call the office if questions, concerns of issues with acute symptoms not improving or if they worsen. See diagnoses and orders for additional plan(s). Allergies and medications were reviewed, list was updated, and refills given if needed. Past medical, surgical, social, and family history reviewed and updated as appropriate. Encouraged proper diet & exercise as well as compliance with taking medications. Age-appropriate health preventative measures were discussed. Return if symptoms worsen or fail to improve, for Keep next scheduled appointment.. Kojo Frederick APRN-JACKIE documented in this encounter [facility] 07-06-2024 Telephone encounter Note Noted. [facility] 07-06-2024 Miscellaneous Notes Noted. Pt reports she has been having right ear pain for 1 mth- not bad today, but does get bad at times. Reports she doesn't notice swollen lymph nodes at all but if she pushes up under her ear it's tender. Reports she's had sore throat for 3 days- does not see white patches in back of throat and no swelling. Reports son looked at it and told her he sees something keith in back of her throat and her throat is red. Reports she has been using warm salt water gargles which are helping. Reports she is also having sinus drainage which may be why she has a sore throat. Has been using saline nasal flushes which have helped. Sucks on lozenges frequently. Was not exposed to strep, but her daughter had the flu- patient does not think she has the flu. Scheduled same day appt with Kojo. Pt took latest available because she has to take her son to ER this morning as his legs are numb. documented in this encounter [facility] 07-06-2024 Telephone encounter Note Pt reports she has been having right ear pain for 1 mth- not bad today, but does get bad at times. Reports she doesn't notice swollen lymph nodes at all but if she pushes up under her ear it's tender. Reports she's had sore throat for 3 days- does not see white patches in back of throat and no swelling. Reports son looked at it and told her he sees something keith in back of her throat and her throat is red. Reports she has been using warm salt water gargles which are helping. Reports she is also having sinus drainage which may be why she has a sore throat. Has been using saline nasal flushes which have helped. Sucks on lozenges frequently. Was not exposed to strep, but her daughter had the flu- patient does not think she has the flu. Scheduled same day appt with Kojo. Pt took latest available because she has to take her son to ER this morning as his legs are numb. [facility] 06-13-2024 Telephone encounter Note See Louie reply Labs ordered [facility] 06-13-2024 Miscellaneous Notes See MyChart reply Labs ordered documented in this encounter [facility] 06-03-2024 History of Present illness Narrative Radiology Service Progress Note PATIENT NAME: Whitney Ruiz DATE OF SERVICE: June 03, 2024 TIME: 10:00 AM PATIENT IDENTITY VERIFICATION COMPLETED USING TWO (2) IDENTIFIERS: Name and Date of confirmed by patient verbally. FALL SCREENING: Has the patient had 2 falls in the last year or 1 fall with injury or currently using an Ambulatory Assistive Device (Walker, Cane, Wheelchair, Crutches, etc.)? No PATIENT GENDER DATA: Assigned female at . status: : No status: NO. PATIENT RELEVANT IMPLANT DATA REVIEWED: Not Applicable PATIENT PRESENTS WITH AN IMPLANTABLE OR ATTACHED SKILLED HELPER: No RADIOLOGY DEPARTMENT: General X-ray: Exam(s) Completed: Pelvis X-Ray: Pelvis with Hip Right PERIPHERAL IV DATA: Not applicable SIGNED BY: Keila Hernandez June 03, 2024 10:00 AM documented in this encounter [facility] 06-03-2024 Note HNO ID: [id number] Author: BRADLY QUINTANILLA Tech Service: ? Author Type: Technologist Type: Progress Notes Filed: 06/03/2024 10:17 Note Text: Radiology Service Progress Note PATIENT NAME: Whitney Ruiz DATE OF SERVICE: June 03, 2024 TIME: 10:00 AM PATIENT IDENTITY VERIFICATION COMPLETED USING TWO (2) IDENTIFIERS: Name and Date of confirmed by patient verbally. FALL SCREENING: Has the patient had 2 falls in the last year or 1 fall with injury or currently using an Ambulatory Assistive Device (Walker, Cane, Wheelchair, Crutches, etc.)? No PATIENT GENDER DATA: Assigned female at . status: : No status: NO. PATIENT RELEVANT IMPLANT DATA REVIEWED: Not Applicable PATIENT PRESENTS WITH AN IMPLANTABLE OR ATTACHED SKILLED HELPER: No RADIOLOGY DEPARTMENT: General X-ray: Exam(s) Completed: Pelvis X-Ray: Pelvis with Hip Right PERIPHERAL IV DATA: Not applicable SIGNED BY: Keila Hernandez June 03, 2024 10:00 AM [facility] 06-03-2024 Note HNO ID: [id number] Author: ANASTASIA SMITH APRN.CIRCUIT TESTER Service: ? Author Type: Nurse Practitioner Type: Progress Notes Filed: 06/03/2024 10:21 Note Text: CC: Patient presents with: Pain: RT hip x 7 days HPI Whitney Ruiz is a 79 year old female who presents today for above. Injury: denies a recent or remote history of hip injury or trauma. Location: posterior right hip with radiation to the groin and described as sharp/stabbing. Associated symptoms: no back pain, no radiation of hip pain, no numbness or tingling noted of the lower extremity, no rash Grating, clicking, feeling like leg is giving out: No Aggravated by prolonged standing and walking Treated with Tylenol with minimal relief of symptoms. Denies history of malignancy, inability to find a comfortable position, severe pain at night, unexplained weight loss, significant spinal trauma, bowel incontinence, bladder incontinence, saddle anesthesia, gait or balance disturbance, and known osteoporosis PMH: sciatica Review of Systems Gastrointestinal: Negative for abdominal pain, constipation, diarrhea, nausea and vomiting. Genitourinary: Negative for decreased urine volume, difficulty urinating, dysuria and hematuria. PAST MEDICAL HISTORY Diagnosis Date CAD (coronary artery disease) 04/16/2012 70-80% LAD --had stent placed 09/07/14 Depressive disorder, not elsewhere classified Diverticulitis of colon with hemorrhage 2001 DM w/o Complication Type II 04/05/2009 GERD (gastroesophageal reflux disease) Hiatal hernia Hypertension 03/30/1988 IPF (idiopathic pulmonary fibrosis) (HCC) Irritable bowel syndrome Occipital neuralgia Osteoarthritis 06/27/2011 Other chronic sinusitis Other osteoporosis Post-nasal drip Situational depression 12/27/2014 Sleep apnea 03/30/1996 Statin intolerance 12/24/2016 SVT (supraventricular tachycardia) ([facility]) 10/02/2018 Thoracic aortic aneurysm (HCC) [address] chest (2014, 2013)--July 09, [address] Unspecified essential hypertension Patient has had since age 33 Vitamin D Deficiency 04/18/2009 PAST SURGICAL HISTORY Procedure Laterality Date CHOLECYSTECTOMY 2002 COLONOSCOPY 06/09/14 diverticulosis COLONOSCOPY FLX DX W/COLLJ SPEC WHEN PFRMD 01/07/2012 hyperplastic polyps EGD 06/09/14 mild gastritis ESOPHAGOGASTRODUODENOSCOPY TRANSORAL DIAGNOSTIC 03/24/12 EGD PAST SURGICAL HISTORY OF 2000 Patient had to have right wrist bone rebuilt PAST SURGICAL HISTORY OF 09/07/2014 heart stent--mid LAD 2.5X12mm Alpine Xience stent PAST SURGICAL HISTORY OF Excision of lipoma TOTAL ABDOMINAL HYSTERECT W/WO RMVL TUBE OVARY 1999 Patient has both ovaries ALLERGIES Codeine, Vicodin [Hydrocodone-Acetaminophen], Adhesive, Augmentin [Amoxicillin-Pot Clavulanate], Biaxin [Clarithromycin], Cardizem [Diltiazem], Ciprofloxacin, Clonidine, Coreg [Carvedilol], Crestor [Rosuvastatin Calcium], Cymbalta [Duloxetine], Dicyclomine, Diovan [Valsartan], Doxycycline, Flagyl [Metronidazole], Guaifenesin-Sodium Citrate, Levofloxacin, Losartan, Lovastatin, Mobic [Meloxicam], Morphine, Nifedipine, Norvasc [Amlodipine Besylate], Sulfa (Sulfonamide Antibiotics), and Ultravist [Iopromide] MEDICATIONS flash glucose sensor (FREESTYLE ALEX 2 SENSOR) kit 1 Each every 2 weeks. E11.9 DM type 2, Insulin: No verapamil SR (CALAN SR) 120 mg CR tablet Take 120 mg by mouth daily at bedtime. lisinopril (ZESTRIL) 5 mg tablet Take 1 tablet by mouth once daily. (Patient taking differently: Take 10 mg by mouth once daily. Changed per court bailiff at ) azelastine 0.1% nasal spray Use 1 Coleman in each nostril two times a day. fluticasone (FLONASE) 50 mcg/actuation nasal spray Use 1-2 Sprays in each nostril once daily as needed for cold/allergy symptoms. Takes daily as needed CPAP Continue settings of Auto PAP to 5-15 cm of water with humidification. Continue orders for: Mask (per patient preference) optional chin strap (if indicated) , filters, tubing, humidifier and lifetime supplies. famotidine (PEPCID) 40 mg tablet Take 40 mg by mouth once daily. torsemide (DEMADEX) 10 mg tablet Take 1 tablet by mouth once daily as needed (edema). blood sugar diagnostic (BLOOD GLUCOSE TEST) test strip Test blood sugar 1 time daily. Dx: Type 2 DM - Controlled E11.9 Insulin: No. Lancets Test blood sugar(s) 2 times daily and as needed. To go with lancet pen with glucometer Dx: Type 2 DM - Controlled E11.9 Insulin: No furosemide (LASIX) 10 mg/mL solution Take by mouth as directed. mecobalamin (B12 ACTIVE ORAL) Take by mouth. omeprazole (PRILOSEC) 20 mg capsule Take 1 capsule by mouth once daily. as directed (Patient taking differently: Take 40 mg by mouth once daily. as directed) flash glucose scanning reader (FastCustomer ALEX 2 READER) Check sugars at least 4 times daily albuterol HFA (PROVENTIL HFA, VENTOLIN HFA) 90 mcg/actuation inhaler Inhale 1-2 Puffs as instructed every 4 hours as needed (more content not included)... [facility] 06-03-2024 History of Present illness Narrative CC: Patient presents with: Pain: RT hip x 7 days HPI Whitney Ruiz is a 79 year old female who presents today for above. Injury: denies a recent or remote history of hip injury or trauma. Location: posterior right hip with radiation to the groin and described as sharp/stabbing. Associated symptoms: no back pain, no radiation of hip pain, no numbness or tingling noted of the lower extremity, no rash Grating, clicking, feeling like leg is giving out: No Aggravated by prolonged standing and walking Treated with Tylenol with minimal relief of symptoms. Denies history of malignancy, inability to find a comfortable position, severe pain at night, unexplained weight loss, significant spinal trauma, bowel incontinence, bladder incontinence, saddle anesthesia, gait or balance disturbance, and known osteoporosis PMH: sciatica Review of Systems Gastrointestinal: Negative for abdominal pain, constipation, diarrhea, nausea and vomiting. Genitourinary: Negative for decreased urine volume, difficulty urinating, dysuria and hematuria. PAST MEDICAL HISTORY Diagnosis Date CAD (coronary artery disease) 04/16/2012 70-80% LAD --had stent placed 09/07/14 Depressive disorder, not elsewhere classified Diverticulitis of colon with hemorrhage 2001 DM w/o Complication Type II 04/05/2009 GERD (gastroesophageal reflux disease) Hiatal hernia Hypertension 03/30/1988 IPF (idiopathic pulmonary fibrosis) (HCC) Irritable bowel syndrome Occipital neuralgia Osteoarthritis 06/27/2011 Other chronic sinusitis Other osteoporosis Post-nasal drip Situational depression 12/27/2014 Sleep apnea 03/30/1996 Statin intolerance 12/24/2016 SVT (supraventricular tachycardia) (HCC) 10/02/2018 Thoracic aortic aneurysm (HCC) [address] chest (2014, 2013)--July 09, [address] Unspecified essential hypertension Patient has had since age 33 Vitamin D Deficiency 04/18/2009 PAST SURGICAL HISTORY Procedure Laterality Date CHOLECYSTECTOMY 2002 COLONOSCOPY 06/09/14 diverticulosis COLONOSCOPY FLX DX W/COLLJ SPEC WHEN PFRMD 01/07/2012 hyperplastic polyps EGD 06/09/14 mild gastritis ESOPHAGOGASTRODUODENOSCOPY TRANSORAL DIAGNOSTIC 03/24/12 EGD PAST SURGICAL HISTORY OF 2000 Patient had to have right wrist bone rebuilt PAST SURGICAL HISTORY OF 09/07/2014 heart stent--mid LAD 2.5X12mm Alpine Xience stent PAST SURGICAL HISTORY OF Excision of lipoma TOTAL ABDOMINAL HYSTERECT W/WO RMVL TUBE OVARY 1999 Patient has both ovaries ALLERGIES Codeine, Vicodin [Hydrocodone-Acetaminophen], Adhesive, Augmentin [Amoxicillin-Pot Clavulanate], Biaxin [Clarithromycin], Cardizem [Diltiazem], Ciprofloxacin, Clonidine, Coreg [Carvedilol], Crestor [Rosuvastatin Calcium], Cymbalta [Duloxetine], Dicyclomine, Diovan [Valsartan], Doxycycline, Flagyl [Metronidazole], Guaifenesin-Sodium Citrate, Levofloxacin, Losartan, Lovastatin, Mobic [Meloxicam], Morphine, Nifedipine, Norvasc [Amlodipine Besylate], Sulfa (Sulfonamide Antibiotics), and Ultravist [Iopromide] MEDICATIONS flash glucose sensor (FREESTYLE ALEX 2 SENSOR) kit 1 Each every 2 weeks. E11.9 DM type 2, Insulin: No verapamil SR (CALAN SR) 120 mg CR tablet Take 120 mg by mouth daily at bedtime. lisinopril (ZESTRIL) 5 mg tablet Take 1 tablet by mouth once daily. (Patient taking differently: Take 10 mg by mouth once daily. Changed per court bailiff at ) azelastine 0.1% nasal spray Use 1 Coleman in each nostril two times a day. fluticasone (FLONASE) 50 mcg/actuation nasal spray Use 1-2 Sprays in each nostril once daily as needed for cold/allergy symptoms. Takes daily as needed CPAP Continue settings of Auto PAP to 5-15 cm of water with humidification. Continue orders for: Mask (per patient preference) optional chin strap (if indicated) , filters, tubing, humidifier and lifetime supplies. famotidine (PEPCID) 40 mg tablet Take 40 mg by mouth once daily. torsemide (DEMADEX) 10 mg tablet Take 1 tablet by mouth once daily as needed (edema). blood sugar diagnostic (BLOOD GLUCOSE TEST) test strip Test blood sugar 1 time daily. Dx: Type 2 DM - Controlled E11.9 Insulin: No. Lancets Test blood sugar(s) 2 times daily and as needed. To go with lancet pen with glucometer Dx: Type 2 DM - Controlled E11.9 Insulin: No furosemide (LASIX) 10 mg/mL solution Take by mouth as directed. mecobalamin (B12 ACTIVE ORAL) Take by mouth. omeprazole (PRILOSEC) 20 mg capsule Take 1 capsule by mouth once daily. as directed (Patient taking differently: Take 40 mg by mouth once daily. as directed) flash glucose scanning reader (FastCustomer ALEX 2 READER) Check sugars at least 4 times daily albuterol HFA (PROVENTIL HFA, VENTOLIN HFA) 90 mcg/actuation inhaler Inhale 1-2 Puffs as instructed every 4 hours as needed (for wheezing and shortness of breath). Lactobacillus acidophilus (PROBIOTIC ORAL) Take by mouth. MULTI-VITAMIN ORAL Take by mouth. COMPOUNDED PRESCRIPTION New CPAP with supplies CPAP pressure 12 cm H2O. 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 aspirin, enteric coated (ASPIRIN, ENTERIC COATED) 81 mg EC tablet Take 81 mg by mouth once daily. sucralfate (CARAFATE) 1 gram tablet Take 1 g by mouth two times a day. metoprolol tartrate, short acting, (LOPRESSOR) 25 mg tablet Take 1 tablet by mouth two times a day. (Patient not taking: Reported on 05/23/2024) potassium chloride (K-TAB) 10 mEq tablet Take 1 tablet by mouth once daily as needed (When taking diuretic). DAILY (Patient not taking: Reported on 05/23/2024) hydrocortisone 2.5 % cream Apply 1 application to affected area three times a day as needed (itchy skin lesion on chest). Apply thin layer as directed Simethicone 125 mg chewable tablet Take 1 tablet by mouth every 6 hours as needed. COMPOUNDED PRESCRIPTION Powerstep full length original insert (M12.571) Traumatic arthritis of foot, right (primary encounter diagnosis) (Patient not taking: Reported on 09/30/2023) FAMILY HISTORY Problem Relation Age of Onset Arthritis Mother Colon Cancer Mother from this Hypertension Father Heart Father CHF Diabetes Father Cancer Brother Lung Cancer Sister from lung cancer Diabetes Brother Hypertension Brother other (Migraine) Daughter other (Other) Daughter Fibromyalgia other (Migraine) Daughter other (Other) Daughter Fibromyalgia Asthma Daughter other (SLE) Daughter Thyroid Cancer Brother Asthma Brother Asthma Maternal Grandfather Asthma Other Nephew, at age 7. Social History Tobacco Use Smoking status: Former Current packs/day: 0.00 Average packs/day: 1 pack/day for 12.0 years (12.0 ttl pk-yrs) Types: Cigarettes Start date: 02/21/1963 Quit date: 03/30/1972 Years since quittin.2 Smokeless tobacco: Never Tobacco comments: Mother smoked in childhood home, spouse of 45 years also smoked in home. Vaping Use Vaping status: Never Used Substance Use Topics Alcohol use: No Drug use: No BP 126/80 Pulse 60 Resp 14 Wt 81.2 kg (179 lb) SpO2 98% BMI 34.96 kg/m Physical Exam Vitals reviewed. Constitutional: General: She is not in acute distress. Appearance: Normal appearance. Musculoskeletal: Lumbar back: Bony tenderness (mild) present. No deformity. Normal range of motion. Negative right straight leg raise test and negative left straight leg raise test. Right hip: Tenderness (posterior) present. No deformity, bony tenderness or crepitus. Normal range of motion. Normal strength. Skin: General: Skin is warm and dry. Neurological: Mental Status: She is alert. ASSESSMENT/PLAN: 1. Right hip pain - ICD9: 719.45, ICD10: M25.551 Differentials include osteoarthritis, sciatica, referred pain from lumbar spine, SI joint dysfunction - XR HIP GENERAL 3V PELV/AP/LAT RIGHT today - TRAMADOL 50 MG TABLET twice a day as needed. Short term only, no refills - discussed non-medication measures including ice and heat - follow-up pending results of x-ray. If no acute findings recommend PT Prescription instructions reviewed with patient as applicable. Potential red flag symptoms discussed with the patient. Reviewed appropriate action plan to take if red flag symptoms occur. Patient agreeable to treatment plan. Anastasia Smith APRN.CIRCUIT TESTER Medical Decision Making: Problems: Low: Acute, uncomplicated illness or injury Data: Unique test(s) ordered: 1 Risk: Low: Low risk from testing/treatment Moderate: Drug management Medical Decision Making Level: 3 - Low documented in this encounter [facility] 06-02-2024 Telephone encounter Note Patient calls for right hip pain. Nurse triage completed. Protocol recommends see provider within 3 days. Requests appt tomorrow d/t transportation. Declined appt with provider available in [facility]. Scheduled with available provider within [facility]. Care advice reviewed. Patient verbalized understanding. Reason for Disposition [1] MODERATE pain (e.g., interferes with normal activities, limping) AND [2] present > 3 days Answer Assessment - Initial Assessment Questions 1. LOCATION and RADIATION: Right Hip Pain. Patient reports pain started after colonoscopy. She discussed with Dr. Nicole who told her it was unrelated to procedure. Patient has bone on bone to the right knee and reports that she has an abnormal gait so maybe from that. 2. QUALITY: Dull and aching and when gets up and ambulates sharp. 3. SEVERITY: - MILD (1-3): Doesn't interfere with normal activities. to - SEVERE (8-10): Excruciating pain, unable to do any normal activities, unable to walk. Currently mild at rest. At times with ambulation would say severe. 4. ONSET: Last week after colonoscopy. 5. WORK OR EXERCISE: No recent work or exercise injury. 6. CAUSE: Patient not really sure thought from colonoscopy but now maybe from compensating for her knee. 7. AGGRAVATING FACTORS: Walking and climbing stairs. Patient does not run. 8. OTHER SYMPTOMS: No back pain, fever, rash. Patient reports that she already had knee pain but the pain is now to the right hip and extends a little around the front of the thigh and down the front of the leg but not all the way to the knee. Protocols used: Hip [id number] [facility] 06-02-2024 Miscellaneous Notes Patient calls for right hip pain. Nurse triage completed. Protocol recommends see provider within 3 days. Requests appt tomorrow d/t transportation. Declined appt with provider available in [facility]ad. Scheduled with available provider within [facility]. Care advice reviewed. Patient verbalized understanding. Reason for Disposition [1] MODERATE pain (e.g., interferes with normal activities, limping) AND [2] present > 3 days Answer Assessment - Initial Assessment Questions 1. LOCATION and RADIATION: Right Hip Pain. Patient reports pain started after colonoscopy. She discussed with Dr. Nicole who told her it was unrelated to procedure. Patient has bone on bone to the right knee and reports that she has an abnormal gait so maybe from that. 2. QUALITY: Dull and aching and when gets up and ambulates sharp. 3. SEVERITY: - MILD (1-3): Doesn't interfere with normal activities. to - SEVERE (8-10): Excruciating pain, unable to do any normal activities, unable to walk. Currently mild at rest. At times with ambulation would say severe. 4. ONSET: Last week after colonoscopy. 5. WORK OR EXERCISE: No recent work or exercise injury. 6. CAUSE: Patient not really sure thought from colonoscopy but now maybe from compensating for her knee. 7. AGGRAVATING FACTORS: Walking and climbing stairs. Patient does not run. 8. OTHER SYMPTOMS: No back pain, fever, rash. Patient reports that she already had knee pain but the pain is now to the right hip and extends a little around the front of the thigh and down the front of the leg but not all the way to the knee. Protocols used: Hip [id number] documented in this encounter [facility] 05-25-2024 Telephone encounter Note The following approved medication requests have been transmitted electronically. Requested Prescriptions Pending Prescriptions Disp Refills flash glucose sensor (FREESTYLE ALEX 2 SENSOR) kit 2 Each 11 Si Each every 2 weeks. E11.9 DM type 2, Insulin: No Kristy Brower MD [facility] 05-25-2024 Miscellaneous Notes The following approved medication requests have been transmitted electronically. Requested Prescriptions Pending Prescriptions Disp Refills flash glucose sensor (FREESTYLE ALEX 2 SENSOR) kit 2 Each 11 Si Each every 2 weeks. E11.9 DM type 2, Insulin: No Kristy Brower MD Prescription Refill Information The patient has been identified by name and date of : Yes Caregiver verified no other encounters exist for this prescription request: Yes Caregiver confirmed with patient/requestor that no other refills are due, in the near future, with this provider at this time: Yes The last office visit in the department: 05/23/24 Does the patient have a future office visit with this provider/department: Yes Requested Prescriptions Pending Prescriptions Disp Refills flash glucose sensor (FREESTYLE ALEX 2 SENSOR) kit 2 Each 11 Si Each every 2 weeks. E11.9 DM type 2, Insulin: No Lexx Sahni LPN May 23, 2024 5:49 PM documented in this encounter [facility] 05-23-2024 Telephone encounter Note Prescription Refill Information The patient has been identified by name and date of : Yes Caregiver verified no other encounters exist for this prescription request: Yes Caregiver confirmed with patient/requestor that no other refills are due, in the near future, with this provider at this time: Yes The last office visit in the department: 05/23/24 Does the patient have a future office visit with this provider/department: Yes Requested Prescriptions Pending Prescriptions Disp Refills flash glucose sensor (FREESTYLE ALEX 2 SENSOR) kit 2 Each 11 Si Each every 2 weeks. E11.9 DM type 2, Insulin: No Lexx Sahni LPN May 23, 2024 5:49 PM [facility] 05-23-2024 Note HNO ID: [id number] Author: KRISTY BROWER MD Service: ? Author Type: Physician Type: Progress Notes Filed: 05/23/2024 17:31 Note Text: This note was created using AISriter. Subjective Whitney Ruiz is a 79 year old female. Patient presents with: F/U 3 Month: discuss path report of EGD done on 05/19/24 would like labs to check vitamin levels. States has not been taking potassium since starting verapamil Back Pain: mid back question if from Carafate Having also low back pain that radiates down into both legs derm issues: has noticed visible vein in bilateral feet that she had not noticed before. Ear Problem: right ear ache denies any trouble hearing out of ear SUBJECTIVE: Whitney Ruiz is a 79 year old year old lady here today for 3 month follow up appointment for review of medical conditions. Whitney Ruiz is an 79-year-old female with a history of esophagitis, duodenitis, and HTN, presenting for a 3-month follow-up. Whitney reports ongoing issues with esophagitis and duodenitis, for which she is currently under the care of Dr. Nicole. She is taking sucralfate 1 g PO BID at 0600 and 1800, Pepcid 40 mg PO at bedtime, and omeprazole 20 mg PO in the morning. She notes that sucralfate initially alleviated her epigastric pain, but she subsequently developed cephalalgia. She also reports experiencing nausea upon waking, which resolves after eating breakfast. She is awaiting biopsy results and does not have a follow-up appointment scheduled with Dr. Nicole at this time. Whitney also reports worsening back pain, localized to the thoracic spine at the level of her bra strap, which she describes as severe. She has been using Aspercreme and a massage gun for relief, with minimal improvement. She recently acquired an adjustable bed and has been sleeping with the head elevated, which she suspects may be exacerbating her lower back pain. She also reports bilateral sciatica, with pain radiating down her legs. She has not been taking any analgesics but inquires about the use of acetaminophen. Additionally, Whitney reports constipation, with no bowel movement since . She was previously taking Miralax, which was effective, but discontinued it after her recent colonoscopy. She also notes the recent appearance of superficial varicose veins on her ankles over the past 1-2 months, which she attributes to prolonged sitting while doing puzzles. She denies any significant swelling. She reports feeling fatigued and requests a check of her vitamin levels. She is currently taking lisinopril 10 mg PO QD between 0800 and 0900, and verapamil 240 mg PO at bedtime. She drinks 6-8 cups of water daily and avoids soda. She has been referred to a black oxide operator at [facility] and has an appointment scheduled for August. PAST MEDICAL HISTORY Diagnosis Date CAD (coronary artery disease) 04/16/2012 70-80% LAD --had stent placed 09/07/14 Depressive disorder, not elsewhere classified Diverticulitis of colon with hemorrhage 2001 DM w/o Complication Type II 04/05/2009 GERD (gastroesophageal reflux disease) Hiatal hernia Hypertension 03/30/1988 IPF (idiopathic pulmonary fibrosis) ([facility]) Irritable bowel syndrome Occipital neuralgia Osteoarthritis 06/27/2011 Other chronic sinusitis Other osteoporosis Post-nasal drip Situational depression 12/27/2014 Sleep apnea 03/30/1996 Statin intolerance 12/24/2016 SVT (supraventricular tachycardia) ([facility]) 10/02/2018 Thoracic aortic aneurysm ([facility]) [address] chest (2014, 2013)--July 09, [address] Unspecified essential hypertension Patient has had since age 33 Vitamin D Deficiency 04/18/2009 Current Outpatient Medications Medication Sig verapamil SR (CALAN SR) 120 mg CR tablet Take 120 mg by mouth daily at bedtime. sucralfate (CARAFATE) 1 gram tablet Take 1 g by mouth two times a day. lisinopril (ZESTRIL) 5 mg tablet Take 1 tablet by mouth once daily. fluticasone (FLONASE) 50 mcg/actuation nasal spray Use 1-2 Sprays in each nostril once daily as needed for cold/allergy symptoms. Takes daily as needed famotidine (PEPCID) 40 mg tablet Take 40 mg by mouth once daily. hydrocortisone 2.5 % cream Apply 1 application to affected area three times a day as needed (itchy skin lesion on chest). Apply thin layer as directed torsemide (DEMADEX) 10 mg tablet Take 1 tablet by mouth once daily as needed (edema). Simethicone 125 mg chewable tablet Take 1 tablet by mouth every 6 hours as needed. mecobalamin (B12 ACTIVE ORAL) Take by mouth. omeprazole (PRILOSEC) 20 mg capsule Take 1 capsule by mouth once daily. as directed albuterol HFA (PROVENTIL HFA, VENTOLIN HFA) 90 mcg/actuation inhaler Inhale 1-2 Puffs as instructed every 4 hours as needed (for wheezing and shortness of breath). Lactobacillus acidophilus (PROBIOTIC ORAL) Take by mouth. MULTI-VITAMIN ORAL Take by mouth. ACETAMINOPHEN (TYLENOL ORAL) Take 500 mg by (more content not included)... [facility] 05-23-2024 History of Present illness Narrative This note was created using [employer]. Subjective Whitney Ruiz is a 79 year old female. Patient presents with: F/U 3 Month: discuss path report of EGD done on 05/19/24 would like labs to check vitamin levels. States has not been taking potassium since starting verapamil Back Pain: mid back question if from Carafate Having also low back pain that radiates down into both legs derm issues: has noticed visible vein in bilateral feet that she had not noticed before. Ear Problem: right ear ache denies any trouble hearing out of ear SUBJECTIVE: Whitney Ruiz is a 79 year old year old lady here today for 3 month follow up appointment for review of medical conditions. Whitney Ruiz is an 79-year-old female with a history of esophagitis, duodenitis, and HTN, presenting for a 3-month follow-up. Whitney reports ongoing issues with esophagitis and duodenitis, for which she is currently under the care of Dr. Nicole. She is taking sucralfate 1 g PO BID at 0600 and 1800, Pepcid 40 mg PO at bedtime, and omeprazole 20 mg PO in the morning. She notes that sucralfate initially alleviated her epigastric pain, but she subsequently developed cephalalgia. She also reports experiencing nausea upon waking, which resolves after eating breakfast. She is awaiting biopsy results and does not have a follow-up appointment scheduled with Dr. Nicole at this time. Whitney also reports worsening back pain, localized to the thoracic spine at the level of her bra strap, which she describes as severe. She has been using Aspercreme and a massage gun for relief, with minimal improvement. She recently acquired an adjustable bed and has been sleeping with the head elevated, which she suspects may be exacerbating her lower back pain. She also reports bilateral sciatica, with pain radiating down her legs. She has not been taking any analgesics but inquires about the use of acetaminophen. Additionally, Whitney reports constipation, with no bowel movement since . She was previously taking Miralax, which was effective, but discontinued it after her recent colonoscopy. She also notes the recent appearance of superficial varicose veins on her ankles over the past 1-2 months, which she attributes to prolonged sitting while doing puzzles. She denies any significant swelling. She reports feeling fatigued and requests a check of her vitamin levels. She is currently taking lisinopril 10 mg PO QD between 0800 and 0900, and verapamil 240 mg PO at bedtime. She drinks 6-8 cups of water daily and avoids soda. She has been referred to a black oxide operator at [facility] and has an appointment scheduled for August. PAST MEDICAL HISTORY Diagnosis Date CAD (coronary artery disease) 04/16/2012 70-80% LAD --had stent placed 09/07/14 Depressive disorder, not elsewhere classified Diverticulitis of colon with hemorrhage 2001 DM w/o Complication Type II 04/05/2009 GERD (gastroesophageal reflux disease) Hiatal hernia Hypertension 03/30/1988 IPF (idiopathic pulmonary fibrosis) ([facility]) Irritable bowel syndrome Occipital neuralgia Osteoarthritis 06/27/2011 Other chronic sinusitis Other osteoporosis Post-nasal drip Situational depression 12/27/2014 Sleep apnea 03/30/1996 Statin intolerance 12/24/2016 SVT (supraventricular tachycardia) ([facility]) 10/02/2018 Thoracic aortic aneurysm (HCC) [address] chest (2014, 2013)--July 09, [address] Unspecified essential hypertension Patient has had since age 33 Vitamin D Deficiency 04/18/2009 Current Outpatient Medications Medication Sig verapamil SR (CALAN SR) 120 mg CR tablet Take 120 mg by mouth daily at bedtime. sucralfate (CARAFATE) 1 gram tablet Take 1 g by mouth two times a day. lisinopril (ZESTRIL) 5 mg tablet Take 1 tablet by mouth once daily. fluticasone (FLONASE) 50 mcg/actuation nasal spray Use 1-2 Sprays in each nostril once daily as needed for cold/allergy symptoms. Takes daily as needed famotidine (PEPCID) 40 mg tablet Take 40 mg by mouth once daily. hydrocortisone 2.5 % cream Apply 1 application to affected area three times a day as needed (itchy skin lesion on chest). Apply thin layer as directed torsemide (DEMADEX) 10 mg tablet Take 1 tablet by mouth once daily as needed (edema). Simethicone 125 mg chewable tablet Take 1 tablet by mouth every 6 hours as needed. mecobalamin (B12 ACTIVE ORAL) Take by mouth. omeprazole (PRILOSEC) 20 mg capsule Take 1 capsule by mouth once daily. as directed albuterol HFA (PROVENTIL HFA, VENTOLIN HFA) 90 mcg/actuation inhaler Inhale 1-2 Puffs as instructed every 4 hours as needed (for wheezing and shortness of breath). Lactobacillus acidophilus (PROBIOTIC ORAL) Take by mouth. MULTI-VITAMIN ORAL Take by mouth. ACETAMINOPHEN (TYLENOL ORAL) Take 500 mg by mouth as needed. aspirin, enteric coated (ASPIRIN, ENTERIC COATED) 81 mg EC tablet Take 81 mg by mouth once daily. metoprolol tartrate, short acting, (LOPRESSOR) 25 mg tablet Take 1 tablet by mouth two times a day. (Patient not taking: Reported on 05/23/2024) azelastine 0.1% nasal spray Use 1 Coleman in each nostril two times a day. (Patient not taking: Reported on 05/23/2024) CPAP Continue settings of Auto PAP to 5-15 cm of water with humidification. Continue orders for: Mask (per patient preference) optional chin strap (if indicated) , filters, tubing, humidifier and lifetime supplies. potassium chloride (K-TAB) 10 mEq tablet Take 1 tablet by mouth once daily as needed (When taking diuretic). DAILY (Patient not taking: Reported on 05/23/2024) blood sugar diagnostic (BLOOD GLUCOSE TEST) test strip Test blood sugar 1 time daily. Dx: Type 2 DM - Controlled E11.9 Insulin: No. Lancets Test blood sugar(s) 2 times daily and as needed. To go with lancet pen with glucometer Dx: Type 2 DM - Controlled E11.9 Insulin: No flash glucose sensor (FREESTYLE ALEX 2 SENSOR) kit 1 Each every 2 weeks. E11.9 DM type 2, Insulin: No furosemide (LASIX) 10 mg/mL solution Take by mouth as directed. (Patient not taking: Reported on 02/24/2024) flash glucose scanning reader (FastCustomer ALEX 2 READER) Check sugars at least 4 times daily COMPOUNDED PRESCRIPTION Powerstep full length original insert (M12.571) Traumatic arthritis of foot, right (primary encounter diagnosis) (Patient not taking: Reported on 09/30/2023) COMPOUNDED PRESCRIPTION New CPAP with supplies CPAP pressure 12 cm H2O. 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 Review of Systems Objective BP 120/84 Pulse (!) 57 Wt 81.4 kg (179 lb 6.4 oz) SpO2 99% BMI 35.04 kg/m Last 5 Encounter Wt Readings: Date: Wt: 05/23/2024 81.4 kg (179 lb 6.4 oz) 03/24/2024 84.2 kg (185 lb 9.6 oz) 03/08/2024 85 kg (187 lb 6.3 oz) 02/24/2024 86.4 kg (190 lb 7.6 oz) 02/12/2024 84.6 kg (186 lb 6.4 oz) No waist measurement recorded Estimated body mass index is 35.04 kg/m as calculated from the following: Height as of 03/08/24: 152.4 cm (5'). Weight as of this encounter: 81.4 kg (179 lb 6.4 oz). Last 5 Encounter BP Readings: Date: BP: 05/23/2024 120/84 03/24/2024 140/82 03/08/2024 134/60 02/24/2024 130/82 02/12/2024 170/94 Physical Exam Constitutional: Appearance: Normal appearance. HENT: Head: Normocephalic. Eyes: Conjunctiva/sclera: Conjunctivae normal. Cardiovascular: Rate and Rhythm: Normal rate and regular rhythm. Heart sounds: Normal heart sounds. Pulmonary: Effort: Pulmonary effort is normal. Breath sounds: Normal breath sounds. Musculoskeletal: Right lower leg: No edema. Left lower leg: No edema. Skin: General: Skin is warm and dry. Neurological: General: No focal deficit present. Mental Status: She is alert and oriented to person, place, and time. Psychiatric: Mood and Affect: Mood normal. Behavior: Behavior normal. Thought Content: Thought content normal. Judgment: Judgment normal. Assessment and Plan # Type 2 diabetes mellitus with diabetic neuropathy, without long-term current use of insulin (HCC) (E11.40) - Ordered A1c to monitor glycemic control. # Essential (primary) hypertension (I10) - Well-controlled on lisinopril and verapamil. - Ordered comprehensive metabolic panel to monitor kidney function and electrolytes. # Esophagitis (K20.90) # Duodenitis (K29.80) # Gastroesophageal reflux disease with esophagitis and hemorrhage (K21.01) - Recent endoscopy by Dr. Nicole revealed chronic inflammation and minor hemorrhage in the duodenum and distal esophagus; no evidence of Snowden's esophagus. - Awaiting biopsy results. - Current medications include sucralfate 2 times daily, omeprazole in the morning, and Pepcid 40 mg at bedtime. - Discussed medication timing to optimize efficacy and minimize interactions. - Advised to continue current regimen and follow up with Dr. Nicole for biopsy results. # Vitamin D deficiency (E55.9) - Last vitamin D level was low in November of last year. - Ordered vitamin D level. # Encounter for therapeutic drug monitoring (Z51.81) - Ordered comprehensive metabolic panel to monitor kidney function and electrolytes. # Shortness of breath on exertion (R06.02) - Referral to black oxide operator at [facility]; appointment scheduled for August. # Other fatigue (R53.83) - Ordered CBC, vitamin D, and B12 levels to evaluate for potential causes. # Other constipation (K59.09) - Advised to resume Miralax to manage constipation. - Discussed importance of not waiting more than 2 days without a bowel movement. # Acute right-sided thoracic back pain (M54.6) - Pain likely related to gastrointestinal issues and existing spinal conditions. - Using topical Aspercreme and massage for symptom relief. - Advised that pain may improve as gastrointestinal inflammation heals. Kristy Brower MD documented in this encounter [facility] 05-19-2024 Note [facility] Medical Records Department [address] [place] [address] History Physical Exam 05/19/24 1144 MR#: [id number] Acct: [id number] Name: WHITNEY RUIZ Rep #: [id number] : 1945 79 From: Rigoberto Friend PCP: Dr. Kristy Brower MD Status:[facility] Location: [place] [address] HPI - General General Date of Admission: 05/19/24 Date of Service: 05/19/24 HPI Narrative WHITNEY RUIZ, is a 79 F who presents for evaluation of abdominal pain, GERD, change in bowel habits and history of polyps. 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 Differential diagnoses include: GERD, Snowden's, PUD. Discussed plan with her; educated her on appropriate use of PPI. omeprazole 20mg PO BID - she is taking this once daily in the morning on an empty stomach famotidine 40mg PO QHS -- she is not taking this sucralfate 1gm PO QAC - - discontinued states it caused a bad headache EGD to investigate for ulcer office follow-up [address] 03/15/2024 mild acute diverticulitis distal descending colon CT 01/11/2024 acute distal sigmoid diverticulitis - Sulfa drugs - caused rash and itching - Amoxicillin - she reports she did not have any issues - Levaquin - shaky but resolved with discontinuing - RLQ pain - this pain comes and goes - the past 5-6 days - states this pain did resolve with ATB reports improvement in pain the past 2 days - trouble with constipation - rabbit poo - she is drinking prune juice with Miralax 3x a week - she has a BM daily - states she is now having good BM - denies any bleeding - weight is stable - denies any fevers - last colonoscopy 2-3 years ago - polyps removed - Mother with gastric CA - syncopal episode February 2024 prior to admission for diverticulitis and pneumonia - ambulates at home with rollator or cane - scheduled to see cardiology this week - reports she was having short runs of SVT - she went off Metoprolol 03/15 - reports this was causing a lot of BLE edema and bradycardia - reports [facility] epig[facility] pain better with once daily Omeprazole 20mg PFSH Medical History Wears dentures History of steroid therapy Thyroid disease Walker as ambulation aid Ambulates with cane Bladder disease Anemia Fatty liver High cholesterol Back pain Syncope History of GI bleed CPAP (continuous positive airway pressure) dependence Asthma Leg cramps History of pain when walking Cardiac arrest History of echocardiogram History of stress test Cardiology follow-up encounter Vitamin D deficiency SVT (supraventricular tachycardia) Osteoarthritis Occipital neuralgia Idiopathic pulmonary fibrosis Hiatal hernia GERD (gastroesophageal reflux disease) CAD (coronary artery disease) Diverticulitis Arthritis Hypertension Diabetes Anxiety Home Medications ???Medication ???Instructions ???Recorded ???Last Taken ???Type fluticasone propionate 50 2 spray intranasal DAILY PRN nasal 03/15/15 Unknown History mcg/actuation nasal congestion spray,suspension albuterol sulfate 90 mcg/actuation 2 puff inhalation Q4H PRN PRN Unknown History aerosol inhaler (Ventolin HFA) Wheezing aspirin 81 mg chewable tablet 81 mg PO DAILY@0800 08/19/1805/19 History ergocalciferol (vitamin D2) 50 mcg 1.25 mg PO MOWEFR 08/19/1805/18 History (2,000 unit) capsule simethicone 125 mg capsule (Gas 125 mg PO QD-BID PRN abdominal Unknown History Relief (simethicone)) distention omeprazole 20 mg capsule,delayed 20 mg PO QDAY gerd 05/02/24 History release lisinopril 20 mg tablet 20 mg PO DAILY 05/17/24 05/19/24 H istory verapamil 120 mg tablet,extended 120 mg PO QHS 05/17/24 05/18/24 Hi story release Allergy/AdvReac Type Severity Reaction Status Date / Time adhesive Allergy Intermediate Rash Verified 05/19/24 11:21 amlodipine Allergy Intermediate Swelling Verified 05/19/24 11:21 amoxicillin (From Augmentin) Allergy Intermediate Shortness Verified 05/19/24 11:21 of breath carvedilol Allergy Intermediate Other Verified 05/19/24 11:21 ciprofloxacin Allergy Intermediate Other Verified 05/19/24 11:21 clarithromycin Allergy Intermediate Other Verified 05/19/24 11:21 clavulanic acid (From Allergy Intermediate Shortness Verified 05/19/24 11:21 Augmentin) of breath clonidine Allergy Intermediate Other Verified 05/19/24 11:21 dicyclomine Allergy Intermediate Shortness Verified 05/19/24 11:21 of breath diltiazem (From Cardizem) Allergy Intermediate Itching Verified 05/19/24 11:21 doxycycline Allergy (more content not included)... [facility] 05-05-2024 History of Present illness Narrative Counseling: The patient was counseled regarding diagnostic results, instructions for management, risk factor reductions, prognosis, patient and family education, impressions, risks and benefits of treatment options and importance of compliance with treatment. Chief Complaint: The patient presents today for 1-month followup of fatigue, HTN, syncope and pneumonia s/p CT chest and Holter monitor. History Of Present Illness: Whitney Riuz is an 79 year old female patient who presents today for 1-month followup of fatigue, HTN, syncope and pneumonia s/p CT chest and Holter monitor. Her PMH is significant for pulmonary fibrosis, EMY (CPAP), mild CAD, dyslipidemia, HTN, palpitations, thyroid nodule, DM type 2, GERD, diaphragmatic hernia, and asthma. Holter monitoring performed from 04/01/2024 to 04/15/2024 revealed 1 run of NSVT lasting 6 beats with max rate 226 bpm and [address] HR [address] chest performed 04/15/2024 revealed basal and subpleural predominant reticulations with traction bronchiectasis/bronchiolectasis and honeycombing consistent with Typical UIP pattern of pulmonary fibrosis (intervally progressed since 2018), cardiomegaly with left atrial enlargement, sequelae of prior granulomatous disease and severe coronary artery calcifications. Today, the patient states that she is feeling relatively well. She has been referred to a pulmonary fibrosis specialist. She reports intermittent postural palpitations that occur in the morning upon waking. BP has been stable. The patient remains compliant with her prescribed medications. Last Recorded Vitals: Vitals: 05/05/24 1521 BP: 118/74 Pulse: 65 SpO2: 97% Weight: 82 kg (180 lb 12.8 oz) Height: 1.524 m (5') Past Surgical History: She has a past surgical history that includes Cardiac catheterization; Lung biopsy; and Bronchoscopy. Social History: She reports that she quit smoking about 53 years ago. Her smoking use included cigarettes. She started smoking about 60 years ago. She has a 3.5 pack-year smoking history. She has never been exposed to tobacco smoke. She has never used smokeless tobacco. She reports that she does not drink alcohol and does not use drugs. Family History: No family history on file. Allergies: Acetaminophen, Amlodipine, Amoxicillin, Amoxicillin-pot clavulanate, Carvedilol, Ciprofloxacin, Clarithromycin, Clavulanic acid, Clonidine, Codeine, Dicyclomine, Diltiazem, Diltiazem hcl, Doxycycline, Doxylamine, Duloxetine, Guaifenesin, Guaifenesin-sodium citrate, Hydrocodone, Hydrocodone-acetaminophen, Iodinated contrast media, Iopromide, Levofloxacin, Losartan, Lovastatin, Meloxicam, Metronidazole, Morphine, Nifedipine, Rosuvastatin, Sulfabenzamide, Sulfamethoxazole, Trimethoprim, Valsartan, Adhesive, Adhesive tape-silicones, and Sulfa (sulfonamide antibiotics) Outpatient Medications: Current Outpatient Medications Medication Instructions acetaminophen (TYLENOL) 1,000 mg, Daily PRN albuterol 90 mcg/actuation inhaler 1 puff, Every 4 hours PRN aspirin 81 mg capsule 1 tablet, Daily azelastine (Astelin) 137 mcg (0.1 %) nasal spray 1 spray, Each Nostril, 2 times daily, Use in each nostril as directed blood sugar diagnostic (Blood Glucose Test) strip Test blood sugar(s) 2 times daily and as needed for symptoms of high or low sugars. Dx: Type 2 DM - Controlled E11.9 Insulin: No. Labile sugars that sometimes drop low so needs to check at least twice daily (taking glipizide) cefdinir (Omnicef) 300 mg capsule 1 capsule, Every 12 hours scheduled (0630,1830) cholecalciferol (VITAMIN D-3) 125 mcg, Daily cyanocobalamin (VITAMIN B-12) 500 mcg, Every other day famotidine (Pepcid) 40 mg tablet TAKE 1 TABLET BY MOUTH DAILY before bedtime fluticasone (Flonase) 50 mcg/actuation nasal spray 1-2 sprays FreeStyle Alex 2 Sensor kit CHANGE SENSOR EVERY 2 WEEKS Gas Relief Extra Strength 125 mg, Every 6 hours PRN L. acidophilus/Bifid. animalis 15.5 billion cell capsule Take by mouth. lisinopril 20 mg, oral, Daily (0630) naphazoline-glycerin (Clear Eyes Redness Relief) 0.012-0.2 % drops 1 Application, As needed nystatin (Mycostatin) 100,000 unit/mL suspension Take 5 mL by mouth four times daily for 14 days. Swish and swallow. omeprazole (PRILOSEC) 20 mg, Daily OneTouch Delica Plus Lancet 30 gauge misc use to test BLOOD SUGAR TWICE DAILY NEEDED potassium chloride CR 10 mEq ER tablet 10 mEq, Daily PRN sucralfate (CARAFATE) 1 g, 3 times daily torsemide (DEMADEX) 10 mg, Daily PRN Review of Systems Constitutional: Positive for malaise/fatigue. Cardiovascular: Positive for palpitations. Respiratory: Positive for shortness of breath. All other systems reviewed and are negative. Physical Exam: Constitutional: Appearance: Healthy appearance. Not in distress. Neck: Vascular: Carotid bruit present. No JVR. JVD normal. Pulmonary: Effort: Pulmonary effort is normal. Breath sounds: Normal breath sounds. No wheezing. No rhonchi. No rales. Chest: Chest wall: Not tender to palpatation. Cardiovascular: PMI at left midclavicular line. Normal rate. Regular rhythm. Normal S1. Normal S2. Murmurs: There is no murmur. No gallop. No click. No rub. Pulses: Intact distal pulses. Edema: Peripheral edema absent. Abdominal: General: Bowel sounds are normal. Palpations: Abdomen is soft. Tenderness: There is no abdominal tenderness. Musculoskeletal: Normal range of motion. General: No tenderness. Skin: General: Skin is warm and dry. Neurological: General: No focal deficit present. Mental Status: Alert and oriented to person, place and time. Last Labs: CBC - Lab Results Component Value Date WBC 8.9 03/15/2024 HGB 13.2 03/15/2024 HCT 41.1 03/15/2024 MCV 91 03/15/2024 PLT 285 03/15/2024 CMP - Lab Results Component Value Date CALCIUM 9.0 03/17/2024 PHOS 3.4 08/21/2021 PROT 6.3 (L) 03/15/2024 ALBUMIN 3.9 03/15/2024 AST 13 03/15/2024 ALT 8 03/15/2024 ALKPHOS 56 03/15/2024 BILITOT 0.5 03/15/2024 LIPID PANEL - Lab Results Component Value Date CHOL 217 (H) 08/21/2021 TRIG 102 08/21/2021 HDL 41.5 08/21/2021 CHHDL 5.2 (A) 08/21/2021 LDLF 155 (H) 08/21/2021 VLDL 20 08/21/2021 RENAL FUNCTION PANEL - Lab Results Component Value Date GLUCOSE 114 (H) 03/17/2024 NA 141 03/17/2024 K 3.8 03/17/2024 CL 109 (H) 03/17/2024 CO2 25 03/17/2024 ANIONGAP 11 03/17/2024 BUN 12 03/17/2024 CREATININE 0.52 03/17/2024 CALCIUM 9.0 03/17/2024 PHOS 3.4 08/21/2021 ALBUMIN 3.9 03/15/2024 Lab Results Component Value Date BNP 240 (H) 03/15/2024 HGBA1C 6.8 (H) 11/11/2023 Last Cardiology Tests: 04/15/2024 - HR CT Chest 1. Basal and subpleural predominant reticulations with traction bronchiectasis/bronchiolectasis and honeycombing, consistent with 'Typical UIP' pattern of pulmonary fibrosis*. Findings are intervally progressed since 2018. 2. Cardiomegaly with left atrial enlargement. Correlate with echocardiography. 3. Sequelae of prior granulomatous disease. 4. Severe coronary artery calcifications. 04/01/2024 to 04/15/2024 - Holter Monitor 1. Predominant underlying rhythm was sinus rhythm; min HR 46 bpm, max HR 226 bpm, avg HR 61 bpm. 2. 1 run of ventricular tachycardia; 6 beats, max rate 226 bpm, avg 186 bpm. 3. 48 supraventricular tachycardia runs occurred; fastest interval lasting 5 beats with max rate 171 bpm, longest lasting 14 beats with avg rate 105 bpm. 4. Isolated SVEs were rare, SVE couplets were rare, and SVE triplets were rare. 5. Isolated VEs were rare, and no VE couplets or VE triplets were present. 09/29/2023 - TTE 1. The left ventricular systolic function is normal, with a visually estimated ejection fraction of 65%. 2. Left ventricular diastolic filling was indeterminate. 3. There is normal right ventricular global systolic function. 4. Calcified mitral annulus and leaflets; with localized calcified nodule in the posterior leaflet of the mitral valve. 5. No significant changes compared to prior echocardiogram dated 07/21/2022. 09/14/2023 - Vascular Lab Carotid Artery Duplex 1. Right Carotid: Findings are consistent with less than 50% stenosis of the right proximal internal carotid artery. The right proximal internal carotid artery is normal. Right external carotid artery appears patent with no evidence of stenosis. No evidence of hemodynamically significant stenosis of the right common carotid artery. The right vertebral artery is patent with antegrade flow. No evidence of hemodynamically significant stenosis in the right subclavian artery. 2. Left Carotid: Findings are consistent with less than 50% stenosis of the left proximal internal carotid artery. The left proximal internal carotid artery is normal. Left external carotid artery appears patent with no evidence of stenosis. No evidence of hemodynamically significant stenosis of the left common carotid artery. The left vertebral artery is patent with antegrade flow. No evidence of hemodynamically significant stenosis in the left subclavian artery. 07/21/2022 - TTE 1. Left ventricular systolic function is normal with a 60-65% estimated ejection fraction. 2. Spectral Doppler shows an impaired relaxation pattern of left ventricular diastolic filling. 3. The left atrium is moderately dilated. 4. There is moderate mitral annular calcification. 07/03/2022 to 07/17/2022 - Holter Monitor 1. Predominant underlying rhythm was sinus rhythm; min HR 43 bpm, max HR 167 bpm, avg HR 56 bpm. 2. One run of ventricular tachycardia; 5 beats, max rate 132 bpm. 3. 45 supraventricular tachycardia runs. 08/21/2021 - Cardiac Catheterization (LH/RH) 1. Mild, non-obstructive coronary artery disease in right-dominant circulation. 2. Elevated right-sided filling pressure. 3. Normal left-sided filling pressure and pulmonary pressure. 4. No gradient on pull-back to suggest aortic stenosis. 5. Preserved CO/CI by assumed Lisset method. 08/21/2021 - CTA Chest for PE 1. No evidence of acute pulmonary embolism. 2. Worsening interstitial abnormality likely at least in part related to lower lung volumes. HRCT pattern of pulmonary fibrosis. 07/06/2020 - Cardiac Catheterization (LH) 1. Moderate non-obstructive coronary artery disease. 2. The right posterior descending artery showed moderate atherosclerotic disease. 3. Elevated LV filling pressures. 4. Left Ventricular end-diastolic pressure = 21. Diagnostic review: I have personally reviewed the result(s) of the Holter Monitor and HR CT Chest. Assessment/Plan 1) Mild CAD On ASA 81 mg daily, lisinopril 20 mg daily, torsemide 10 mg p.r.n. Metoprolol previously discontinued s/t bradycardia [facility] 08/21/2021 with mild non-obstructive CAD Holter 07/03/2022 to 07/17/2022 with 1 run of ventricular tachycardia, 45 runs of SVT, ventricular bigeminy TTE 09/29/2023 with LVEF 65%, normal RV systolic function, calcified mitral annulus and leaflets with localized calcified nodule in the posterior leaflet of the mitral valve. Hospital admission 03/15/2024 to 03/17/2024 with syncope, pneumonia and mild diverticulitis. HR CT chest 04/15/2024 with basal and subpleural predominant reticulations with traction bronchiectasis/bronchiolectasis and honeycombing consistent with Typical UIP pattern of pulmonary fibrosis (intervally progressed since 2018), cardiomegaly with left atrial enlargement, sequelae of prior granulomatous disease, severe coronary artery calcifications. Scheduled for colonoscopy/EGD - clearance sent to GI Continue current medical Rx F/U 3 months 2) Pulmonary Fibrosis Seen on CTA 08/21/[address] Trammell at [facility] Compliant with CPAP Seen by pulmonology 01/27/2023 - recommended to start Symbicort and dymista, Check RAST and HP, repeat PFTs, continued CPAP therapy. Reports that family has noted sleep disordered breathing at night despite being compliant with CPAP therapy Referral previously placed to Dr. Sweet, sleep medicine specialist HR CT chest 04/15/2024 with basal and subpleural predominant reticulations with traction bronchiectasis/bronchiolectasis and honeycombing consistent with Typical UIP pattern of pulmonary fibrosis (intervally progressed since 2018), sequelae of prior granulomatous disease. Scheduled with Dr. Francis Alonzo, pulmonary fibrosis specialist 3) HTN On lisinopril 20 mg daily Amlodipine caused LE edema in the past Metoprolol previously discontinued s/t bradycardia Continue current medical Rx F/U 3 months 4) BLE Edema On torsemide 10 mg daily p.r.n. Occurs after prolonged sitting Compression stockings Continue current medical Rx F/U 3 months 5) Flatulence Reports postprandial flatulence Previously prescribed pantoprazole 40 mg BID x 1 month, then once daily thereafter 6) Dyslipidemia Lipid panel 03/24/2023 with elevated total cholesterol and LDL of 213 and 152 respectively Advised on aggressive secondary risk factor modification 7) Carotid Bruit Carotid duplex 09/14/2023 with <50% stenosis bilaterally 8) Syncope - Palpitations Hospital admission 03/15/2024 to 03/17/2024 after having a syncopal episode Found to be bradycardic Denies recurrent syncope Holter 04/01/2024 to 04/15/2024 with 1 run of NSVT lasting 6 beats with max rate 226 bpm, 48 runs of SVT Reports intermittent postural palpitations upon waking in the morning Denies palpitations throughout the day Start verapamil 120 mg daily F/U 3 months Scribe Attestation By signing my name below, I, Keyonna Bolton, Scribe attest that this documentation has been prepared under the direction and in the presence of Franck Lambert MD. documented in this encounter [facility] Work Phone: 05-05-2024 Instructions Keyonna Bolton - 05/05/2024 3:30 PM EST Start verapamil 120 mg daily. A prescription has been sent to your pharmacy. Continue all other medications as prescribed. From a heart standpoint, you are cleared for colonoscopy/EGD. Followup with Dr. Lambert in 3 months. If you have any questions or cardiac concerns, please call our office at [phone]. documented in this encounter [facility] Work Phone: 04-01-2024 History of Present illness Narrative Counseling: The patient was counseled regarding diagnostic results, instructions for management, risk factor reductions, prognosis, patient and family education, impressions, risks and benefits of treatment options and importance of compliance with treatment. Chief Complaint: The patient presents today for 7-month followup of palpitations, CAD, HTN, dyslipidemia and carotid bruit. History Of Present Illness: Whitney Ruiz is an 78 year old female patient who presents today in the company of [employer] for 7-month followup of palpitations, CAD, HTN, dyslipidemia and carotid bruit. Her PMH is significant for pulmonary fibrosis, EMY (CPAP), mild CAD, dyslipidemia, HTN, palpitations, thyroid nodule, DM type 2, GERD, diaphragmatic hernia, and asthma. The patient was admitted to hospital from 03/15/2024 to 03/17/2024 after having a syncopal episode. While in hospital, she was found to be bradycardic, and diagnostic imaging showed pneumonia and mild diverticulitis. Upon discharge, the patient's metoprolol was decreased to 25 mg BID. Today, the patient states that she is feeling unwell. She reports fatigue. Per the patient's son, at the time of her syncopal event she seized up and was non-responsive. The patient states that she is now completely off metoprolol. BP has been elevated. Last Recorded Vitals: Vitals: 04/01/24 1158 BP: (!) 158/96 BP Location: Right arm Pulse: 64 Weight: 85.3 kg (188 lb) Height: 1.524 m (5') Past Surgical History: She has no past surgical history on file. Social History: She reports that she quit smoking about 53 years ago. Her smoking use included cigarettes. She started smoking about 60 years ago. She has a 3.5 pack-year smoking history. She has never been exposed to tobacco smoke. She has never used smokeless tobacco. She reports that she does not drink alcohol and does not use drugs. Family History: No family history on file. Allergies: Acetaminophen, Amlodipine, Amoxicillin, Amoxicillin-pot clavulanate, Carvedilol, Ciprofloxacin, Clarithromycin, Clavulanic acid, Clonidine, Codeine, Dicyclomine, Diltiazem, Diltiazem hcl, Doxycycline, Doxylamine, Duloxetine, Guaifenesin, Guaifenesin-sodium citrate, Hydrocodone, Hydrocodone-acetaminophen, Iodinated contrast media, Iopromide, Levofloxacin, Losartan, Lovastatin, Meloxicam, Metronidazole, Morphine, Nifedipine, Rosuvastatin, Sulfabenzamide, Sulfamethoxazole, Trimethoprim, Valsartan, Adhesive, Adhesive tape-silicones, and Sulfa (sulfonamide antibiotics) Outpatient Medications: Current Outpatient Medications Medication Instructions acetaminophen (TYLENOL) 1,000 mg, Daily PRN albuterol 90 mcg/actuation inhaler 1 puff, Every 4 hours PRN aspirin 81 mg capsule 1 tablet, Daily azelastine (Astelin) 137 mcg (0.1 %) nasal spray 1 spray, Each Nostril, 2 times daily, Use in each nostril as directed blood sugar diagnostic (Blood Glucose Test) strip Test blood sugar(s) 2 times daily and as needed for symptoms of high or low sugars. Dx: Type 2 DM - Controlled E11.9 Insulin: No. Labile sugars that sometimes drop low so needs to check at least twice daily (taking glipizide) cholecalciferol (VITAMIN D-3) 125 mcg, Daily cyanocobalamin (VITAMIN B-12) 500 mcg, Every other day famotidine (Pepcid) 40 mg tablet TAKE 1 TABLET BY MOUTH DAILY before bedtime fluticasone (Flonase) 50 mcg/actuation nasal spray 1-2 sprays FreeStyle Alex 2 Sensor kit CHANGE SENSOR EVERY 2 WEEKS Gas Relief Extra Strength 125 mg, Every 6 hours PRN L. acidophilus/Bifid. animalis 15.5 billion cell capsule Take by mouth. lisinopril 5 mg tablet 1 tablet, Daily (0630) metoprolol tartrate (LOPRESSOR) 25 mg, oral, 2 times daily, Do Not take if HR less than 60 naphazoline-glycerin (Clear Eyes Redness Relief) 0.012-0.2 % drops 1 Application, As needed nystatin (Mycostatin) 100,000 unit/mL suspension Take 5 mL by mouth four times daily for 14 days. Swish and swallow. omeprazole (PRILOSEC) 20 mg, Daily OneTouch Delica Plus Lancet 30 gauge misc use to test BLOOD SUGAR TWICE DAILY NEEDED potassium chloride CR 10 mEq ER tablet 10 mEq, Daily PRN sucralfate (CARAFATE) 1 g, 3 times daily torsemide (DEMADEX) 10 mg, Daily PRN Review of Systems Constitutional: Positive for malaise/fatigue. All other systems reviewed and are negative. Physical Exam: Constitutional: Appearance: Healthy appearance. Not in distress. Neck: Vascular: Carotid bruit present. No JVR. JVD normal. Pulmonary: Effort: Pulmonary effort is normal. Breath sounds: Normal breath sounds. No wheezing. No rhonchi. No rales. Chest: Chest wall: Not tender to palpatation. Cardiovascular: PMI at left midclavicular line. Normal rate. Regular rhythm. Normal S1. Normal S2. Murmurs: There is no murmur. No gallop. No click. No rub. Pulses: Intact distal pulses. Edema: Peripheral edema absent. Abdominal: General: Bowel sounds are normal. Palpations: Abdomen is soft. Tenderness: There is no abdominal tenderness. Musculoskeletal: Normal range of motion. General: No tenderness. Skin: General: Skin is warm and dry. Neurological: General: No focal deficit present. Mental Status: Alert and oriented to person, place and time. Last Labs: CBC - Lab Results Component Value Date WBC 8.9 03/15/2024 HGB 13.2 03/15/2024 HCT 41.1 03/15/2024 MCV 91 03/15/2024 PLT 285 03/15/2024 CMP - Lab Results Component Value Date CALCIUM 9.0 03/17/2024 PHOS 3.4 08/21/2021 PROT 6.3 (L) 03/15/2024 ALBUMIN 3.9 03/15/2024 AST 13 03/15/2024 ALT 8 03/15/2024 ALKPHOS 56 03/15/2024 BILITOT 0.5 03/15/2024 LIPID PANEL - Lab Results Component Value Date CHOL 217 (H) 08/21/2021 TRIG 102 08/21/2021 HDL 41.5 08/21/2021 CHHDL 5.2 (A) 08/21/2021 LDLF 155 (H) 08/21/2021 VLDL 20 08/21/2021 RENAL FUNCTION PANEL - Lab Results Component Value Date GLUCOSE 114 (H) 03/17/2024 NA 141 03/17/2024 K 3.8 03/17/2024 CL 109 (H) 03/17/2024 CO2 25 03/17/2024 ANIONGAP 11 03/17/2024 BUN 12 03/17/2024 CREATININE 0.52 03/17/2024 CALCIUM 9.0 03/17/2024 PHOS 3.4 08/21/2021 ALBUMIN 3.9 03/15/2024 Lab Results Component Value Date BNP 240 (H) 03/15/2024 HGBA1C 6.8 (H) 11/11/2023 Last Cardiology Tests: 09/29/2023 - TTE 1. The left ventricular systolic function is normal, with a visually estimated ejection fraction of 65%. 2. Left ventricular diastolic filling was indeterminate. 3. There is normal right ventricular global systolic function. 4. Calcified mitral annulus and leaflets; with localized calcified nodule in the posterior leaflet of the mitral valve. 5. No significant changes compared to prior echocardiogram dated 07/21/2022. 09/14/2023 - Vascular Lab Carotid Artery Duplex 1. Right Carotid: Findings are consistent with less than 50% stenosis of the right proximal internal carotid artery. The right proximal internal carotid artery is normal. Right external carotid artery appears patent with no evidence of stenosis. No evidence of hemodynamically significant stenosis of the right common carotid artery. The right vertebral artery is patent with antegrade flow. No evidence of hemodynamically significant stenosis in the right subclavian artery. 2. Left Carotid: Findings are consistent with less than 50% stenosis of the left proximal internal carotid artery. The left proximal internal carotid artery is normal. Left external carotid artery appears patent with no evidence of stenosis. No evidence of hemodynamically significant stenosis of the left common carotid artery. The left vertebral artery is patent with antegrade flow. No evidence of hemodynamically significant stenosis in the left subclavian artery. 07/21/2022 - TTE 1. Left ventricular systolic function is normal with a 60-65% estimated ejection fraction. 2. Spectral Doppler shows an impaired relaxation pattern of left ventricular diastolic filling. 3. The left atrium is moderately dilated. 4. There is moderate mitral annular calcification. 07/03/2022 to 07/17/2022 - Holter Monitor 1. Predominant underlying rhythm was sinus rhythm; min HR 43 bpm, max HR 167 bpm, avg HR 56 bpm. 2. One run of ventricular tachycardia; 5 beats, max rate 132 bpm. 3. 45 supraventricular tachycardia runs. 08/21/2021 - Cardiac Catheterization (LH/RH) 1. Mild, non-obstructive coronary artery disease in right-dominant circulation. 2. Elevated right-sided filling pressure. 3. Normal left-sided filling pressure and pulmonary pressure. 4. No gradient on pull-back to suggest aortic stenosis. 5. Preserved CO/CI by assumed Lisset method. 08/21/2021 - CTA Chest for PE 1. No evidence of acute pulmonary embolism. 2. Worsening interstitial abnormality likely at least in part related to lower lung volumes. HRCT pattern of pulmonary fibrosis. 07/06/2020 - Cardiac Catheterization (LH) 1. Moderate non-obstructive coronary artery disease. 2. The right posterior descending artery showed moderate atherosclerotic disease. 3. Elevated LV filling pressures. 4. Left Ventricular end-diastolic pressure = 21. Lab review: I have personally reviewed the laboratory result(s). Assessment/Plan 1) Palpitations - Mild CAD On ASA 81 mg daily, lisinopril 5 mg daily, torsemide 10 mg p.r.n. [facility] 08/21/2021 with mild non-obstructive CAD Holter 07/03/2022 to 07/17/2022 with 1 run of ventricular tachycardia, 45 runs of SVT, ventricular bigeminy TTE 09/29/2023 with LVEF 65%, normal RV systolic function, calcified mitral annulus and leaflets with localized calcified nodule in the posterior leaflet of the mitral valve. Hospital admission 03/15/2024 to 03/17/2024 with syncope, pneumonia and mild diverticulitis. Metoprolol decreased to 25 mg BID during recent hospital admission s/t bradycardia Now completely off metoprolol Reports fatigue Increase lisinopril to 20 mg daily s/t elevated BP Continue all other medications as prescribed Check HR CT chest F/U after testing 2) Pulmonary Fibrosis Seen on CTA 08/21/[address] Trammell at [facility] Compliant with CPAP Seen by pulmonology 01/27/2023 - recommended to start Symbicort and dymista, Check RAST and HP, repeat PFTs, continued CPAP therapy. Reports that family has noted sleep disordered breathing at night despite being compliant with CPAP therapy Referral previously placed to Dr. Sweet, sleep medicine specialist 3) HTN On lisinopril 5 mg daily Lisinopril previously discontinued s/t patient reported side effects Amlodipine caused LE edema in the past Metoprolol decreased to 25 mg BID during recent hospital admission with syncope Now completely off metoprolol BP elevated Increase lisinopril to 20 mg daily 4) BLE Edema On torsemide 10 mg daily p.r.n. Occurs after prolonged sitting Compression stockings 5) Flatulence Reports postprandial flatulence Previously prescribed pantoprazole 40 mg BID x 1 month, then once daily thereafter 6) Dyslipidemia Lipid panel 03/24/2023 with elevated total cholesterol and LDL of 213 and 152 respectively Advised on aggressive secondary risk factor modification 7) Carotid Bruit Carotid duplex 09/14/2023 with <50% stenosis bilaterally 8) Syncope Hospital admission 03/15/2024 to 03/17/2024 after having a syncopal episode Found to be bradycardic Metoprolol decreased to 25 mg BID Now completely off metoprolol Denies recurrent syncope Reports fatigue Check 14-day Holter F/U after testing Scribe Attestation By signing my name below, I, Keyonna Bolton, Scribvignesh attest that this documentation has been prepared under the direction and in the presence of Franck Lambert MD. documented in this encounter [facility] Work Phone: 04-01-2024 Instructions Keyonna Bolton - 04/01/2024 12:00 PM EST For your blood pressure, Dr. Lambert has increased your lisinopril to 20 mg daily. If you have any of the 5 mg tablets left, you can take 4 tablets once daily until they are finished. A prescription for the new dose has been sent to your pharmacy. Continue all other medications as prescribed. Dr. Lambert has ordered a heart monitor to assess your heart rhythm. Dr. Lambert has also ordered a CT can of your chest. Followup with Dr. Lambert after the above tests. If you have any questions or cardiac concerns, please call our office at [phone]. documented in this encounter [facility] Work Phone: 03-24-2024 Instructions Kristy Brower MD - 03/24/2024 2:34 PM EST - Start taking Lisinopril 5 mg daily for blood pressure control; prescription sent to pharmacy. - Start taking Metoprolol 12.5 mg twice daily for heart rate and PVC control; prescription sent to pharmacy. - Use Nystatin oral suspension for thrush as prescribed; swish and spit or swallow as directed. - Monitor blood pressure and heart rate regularly at home. - Stay hydrated and maintain a balanced diet to aid recovery. - Follow up with your court bailiff on the 3rd of next month. - Consider scheduling an appointment with an orthopedic surgeon for knee evaluation and potential surgery. documented in this encounter [facility] 03-24-2024 Note HNO ID: [id number] Author: KRISTY BROWER MD Service: ? Author Type: Physician Type: Progress Notes Filed: 03/24/2024 17:43 Note Text: This note was created using AISriter. Subjective Whitney Ruiz is a 78 year old female. Patient presents with: hospital f/up : Diverticulitis and pneumonia SUBJECTIVE: Whitney Ruiz is a 78 year old year old lady here today for hospital follow up appointment for review of medical conditions. From Discharge Summary from [facility]: Discharge Diagnosis Syncope, unspecified syncope type Issues Requiring Follow-Up Bradycardia Mild diverticulitis Pneumonia Was having GI upset symptoms and rushed to the bathroom, after going she had the syncopal episode. - Feeling constipation symptoms now: LRQ pain currently. Taking Miralax b/c after discharge took 5 days to have a BM. - Concerned for thrush, burning and dry feeling in her mouth Hospital called the pneumonia, but Lung Doctor had seen her just prior and stated that x-rays were just her pulmonary fibrosis, not pneumonia. Bradycardia: - Noticed low HR in the ER at 40bpms; Normally runs 40s to 50s on metoprolol - Taking a half dose of lisinopril currently (10mg breaking into 5mg once per day) - 160/80 avg. On home BP readings (aggregate for a whole day) Denies any more feelings of pre-syncope, dizziness, lightheadedness. Biggest concern currently is fatigue AND sleepiness which is worse than prior to being at the hospital. Whitney Ruiz is an 78-year-old female with a history of pulmonary fibrosis, diverticulitis, and cardiac issues, presenting for a hospital follow-up. Whitney was recently hospitalized for diverticulitis and a syncopal episode. She reports improvement in bowel issues but continues to experience right-sided abdominal pain. She has been taking Miralax to facilitate bowel movements. During her hospitalization, Whitney's heart rate was noted to be in the 40s-50s, leading to a reduction in her metoprolol dosage from 50 mg BID to 25 mg BID. However, she has not been taking metoprolol due to concerns about bradycardia and associated fatigue. She has also been taking lisinopril 5 mg intermittently for blood pressure control, having previously been on 10 mg. Her blood pressure readings have varied, with recent measurements of 170s/90s on the and 130s/80s on the . She was discharged from the hospital on the and has not been consistently taking antihypertensive medications since then. Whitney also reports symptoms of oral thrush following antibiotic treatment for diverticulitis. She describes a creamy substance in her mouth and requests treatment for this condition. Additionally, Whitney has been experiencing internal tremors and weakness, which she attributes to the antibiotic treatment. She expresses a desire to undergo knee surgery for severe right knee arthritis but has been postponing it due to her current medical issues. PAST MEDICAL HISTORY Diagnosis Date CAD (coronary artery disease) 04/16/2012 70-80% LAD --had stent placed 09/07/14 Depressive disorder, not elsewhere classified Diverticulitis of colon with hemorrhage 2001 DM w/o Complication Type II 04/05/2009 GERD (gastroesophageal reflux disease) Hiatal hernia Hypertension 03/30/1988 IPF (idiopathic pulmonary fibrosis) (HCC) Irritable bowel syndrome Occipital neuralgia Osteoarthritis 06/27/2011 Other chronic sinusitis Other osteoporosis Post-nasal drip Situational depression 12/27/2014 Sleep apnea 03/30/1996 Statin intolerance 12/24/2016 SVT (supraventricular tachycardia) (HCC) 10/02/2018 Thoracic aortic aneurysm (HCC) [address] chest (2014, 2013)--July 09, [address] Unspecified essential hypertension Patient has had since age 33 Vitamin D Deficiency 04/18/2009 Current Outpatient Medications Medication Sig CPAP Continue settings of Auto PAP to 5-15 cm of water with humidification. Continue orders for: Mask (per patient preference) optional chin strap (if indicated) , filters, tubing, humidifier and lifetime supplies. famotidine (PEPCID) 40 mg tablet Take 40 mg by mouth once daily. hydrocortisone 2.5 % cream Apply 1 application to affected area three times a day as needed (itchy skin lesion on chest). Apply thin layer as directed torsemide (DEMADEX) 10 mg tablet Take 1 tablet by mouth once daily as needed (edema). blood sugar diagnostic (BLOOD GLUCOSE TEST) test strip Test blood sugar 1 time daily. Dx: Type 2 DM - Controlled E11.9 Insulin: No. Lancets Test blood sugar(s) 2 times daily and as needed. To go with lancet pen with glucometer Dx: Type 2 DM - Controlled E11.9 Insulin: No flash glucose sensor (FREESTYLE ALEX 2 SENSOR) kit 1 Each every 2 weeks. E11.9 DM type 2, Insulin: No mecobalamin (B12 ACTIVE ORAL) Take by mouth. flash glucose scanning reader (FREESTYLE ALEX 2 READER) Check sugars at least 4 times daily albuterol (more content not included)... [facility] 03-24-2024 History of Present illness Narrative This note was created using AISriter. Subjective Whitney Ruiz is a 78 year old female. Patient presents with: hospital f/up : Diverticulitis and pneumonia SUBJECTIVE: Whitney Ruiz is a 78 year old year old lady here today for hospital follow up appointment for review of medical conditions. From Discharge Summary from [facility]: Discharge Diagnosis Syncope, unspecified syncope type Issues Requiring Follow-Up Bradycardia Mild diverticulitis Pneumonia Was having GI upset symptoms and rushed to the bathroom, after going she had the syncopal episode. - Feeling constipation symptoms now: LRQ pain currently. Taking Miralax b/c after discharge took 5 days to have a BM. - Concerned for thrush, burning and dry feeling in her mouth Hospital called the pneumonia, but Lung Doctor had seen her just prior and stated that x-rays were just her pulmonary fibrosis, not pneumonia. Bradycardia: - Noticed low HR in the ER at 40bpms; Normally runs 40s to 50s on metoprolol - Taking a half dose of lisinopril currently (10mg breaking into 5mg once per day) - 160/80 avg. On home BP readings (aggregate for a whole day) Denies any more feelings of pre-syncope, dizziness, lightheadedness. Biggest concern currently is fatigue & sleepiness which is worse than prior to being at the hospital. Whitney Ruiz is an 78-year-old female with a history of pulmonary fibrosis, diverticulitis, and cardiac issues, presenting for a hospital follow-up. Whitney was recently hospitalized for diverticulitis and a syncopal episode. She reports improvement in bowel issues but continues to experience right-sided abdominal pain. She has been taking Miralax to facilitate bowel movements. During her hospitalization, Whitney's heart rate was noted to be in the 40s-50s, leading to a reduction in her metoprolol dosage from 50 mg BID to 25 mg BID. However, she has not been taking metoprolol due to concerns about bradycardia and associated fatigue. She has also been taking lisinopril 5 mg intermittently for blood pressure control, having previously been on 10 mg. Her blood pressure readings have varied, with recent measurements of 170s/90s on the and 130s/80s on the . She was discharged from the hospital on the and has not been consistently taking antihypertensive medications since then. Whitney also reports symptoms of oral thrush following antibiotic treatment for diverticulitis. She describes a creamy substance in her mouth and requests treatment for this condition. Additionally, Whitney has been experiencing internal tremors and weakness, which she attributes to the antibiotic treatment. She expresses a desire to undergo knee surgery for severe right knee arthritis but has been postponing it due to her current medical issues. PAST MEDICAL HISTORY Diagnosis Date CAD (coronary artery disease) 04/16/2012 70-80% LAD --had stent placed 09/07/14 Depressive disorder, not elsewhere classified Diverticulitis of colon with hemorrhage 2001 DM w/o Complication Type II 04/05/2009 GERD (gastroesophageal reflux disease) Hiatal hernia Hypertension 03/30/1988 IPF (idiopathic pulmonary fibrosis) (HCC) Irritable bowel syndrome Occipital neuralgia Osteoarthritis 06/27/2011 Other chronic sinusitis Other osteoporosis Post-nasal drip Situational depression 12/27/2014 Sleep apnea 03/30/1996 Statin intolerance 12/24/2016 SVT (supraventricular tachycardia) ([facility]) 10/02/2018 Thoracic aortic aneurysm (HCC) [address] chest (2014, 2013)--July 09, [address] Unspecified essential hypertension Patient has had since age 33 Vitamin D Deficiency 04/18/2009 Current Outpatient Medications Medication Sig CPAP Continue settings of Auto PAP to 5-15 cm of water with humidification. Continue orders for: Mask (per patient preference) optional chin strap (if indicated) , filters, tubing, humidifier and lifetime supplies. famotidine (PEPCID) 40 mg tablet Take 40 mg by mouth once daily. hydrocortisone 2.5 % cream Apply 1 application to affected area three times a day as needed (itchy skin lesion on chest). Apply thin layer as directed torsemide (DEMADEX) 10 mg tablet Take 1 tablet by mouth once daily as needed (edema). blood sugar diagnostic (BLOOD GLUCOSE TEST) test strip Test blood sugar 1 time daily. Dx: Type 2 DM - Controlled E11.9 Insulin: No. Lancets Test blood sugar(s) 2 times daily and as needed. To go with lancet pen with glucometer Dx: Type 2 DM - Controlled E11.9 Insulin: No flash glucose sensor (FREESTYLE ALEX 2 SENSOR) kit 1 Each every 2 weeks. E11.9 DM type 2, Insulin: No mecobalamin (B12 ACTIVE ORAL) Take by mouth. flash glucose scanning reader (FREESTYLE ALEX 2 READER) Check sugars at least 4 times daily albuterol HFA (PROVENTIL HFA, VENTOLIN HFA) 90 mcg/actuation inhaler Inhale 1-2 Puffs as instructed every 4 hours as needed (for wheezing and shortness of breath). Lactobacillus acidophilus (PROBIOTIC ORAL) Take by mouth. COMPOUNDED PRESCRIPTION New CPAP with supplies CPAP pressure 12 cm H2O. 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 aspirin, enteric coated (ASPIRIN, ENTERIC COATED) 81 mg EC tablet Take 81 mg by mouth once daily. lisinopril (ZESTRIL) 5 mg tablet Take 1 tablet by mouth once daily. metoprolol tartrate, short acting, (LOPRESSOR) 25 mg tablet Take 1 tablet by mouth two times a day. nystatin (MYCOSTATIN) 100,000 unit/mL suspension Take 5 mL by mouth four times daily for 14 days. Swish and swallow. azelastine 0.1% nasal spray Use 1 Coleman in each nostril two times a day. fluticasone (FLONASE) 50 mcg/actuation nasal spray Use 1-2 Sprays in each nostril once daily as needed for cold/allergy symptoms. Takes daily as needed potassium chloride (K-TAB) 10 mEq tablet Take 1 tablet by mouth once daily as needed (When taking diuretic). DAILY Simethicone 125 mg chewable tablet Take 1 tablet by mouth every 6 hours as needed. furosemide (LASIX) 10 mg/mL solution Take by mouth as directed. (Patient not taking: Reported on 02/24/2024) omeprazole (PRILOSEC) 20 mg capsule Take 1 capsule by mouth once daily. as directed MULTI-VITAMIN ORAL Take by mouth. COMPOUNDED PRESCRIPTION Powerstep full length original insert (M12.571) Traumatic arthritis of foot, right (primary encounter diagnosis) (Patient not taking: Reported on 09/30/2023) No current facility-administered medications for this visit. Review of Systems Objective BP 170/110 (BP Site: Left Arm, BP Position: Sitting, BP Cuff Size: Regular Adult) Pulse 72 Temp 36.9 C (98.5 F) Resp 14 Wt 84.2 kg (185 lb 9.6 oz) BMI 36.25 kg/m Last 5 Encounter Wt Readings: Date: Wt: 03/24/2024 84.2 kg (185 lb 9.6 oz) 03/08/2024 85 kg (187 lb 6.3 oz) 02/24/2024 86.4 kg (190 lb 7.6 oz) 02/12/2024 84.6 kg (186 lb 6.4 oz) 01/14/2024 85.5 kg (188 lb 7.9 oz) No waist measurement recorded Estimated body mass index is 36.25 kg/m as calculated from the following: Height as of 03/08/24: 152.4 cm (5'). Weight as of this encounter: 84.2 kg (185 lb 9.6 oz). Last 5 Encounter BP Readings: Date: BP: 03/24/2024 155/80[Josseline Brower (med student)[ 03/08/2024 134/60 02/24/2024 130/82 02/12/2024 170/94 01/14/2024 160/84 Last 5 Encounter Pulse Readings: Date: Pulse: 03/24/2024 72 03/08/2024 55 02/24/2024 74 02/12/2024 66 01/14/2024 52 03/24/24 1310 03/24/24 1400 BP: 170/110 155/80 BP Site: Left Arm BP Position: Sitting BP Cuff Size: Regular Adult Pulse: 72 Resp: 14 Temp: 36.9 C (98.5 F) Weight: 84.2 kg (185 lb 9.6 oz) Physical Exam Constitutional: Appearance: Normal appearance. HENT: Head: Normocephalic. Mouth/Throat: Comments: - Light coating of thrush Eyes: Conjunctiva/sclera: Conjunctivae normal. Cardiovascular: Rate and Rhythm: Normal rate and regular rhythm. Heart sounds: Normal heart sounds. Pulmonary: Effort: Pulmonary effort is normal. Breath sounds: Normal breath sounds. Skin: General: Skin is warm and dry. Neurological: General: No focal deficit present. Mental Status: She is alert and oriented to person, place, and time. Psychiatric: Mood and Affect: Mood normal. Behavior: Behavior normal. Thought Content: Thought content normal. Judgment: Judgment normal. Assessment and Plan # Acute diverticulitis (K57.92) - Symptoms improving; still experiencing right-sided abdominal pain. - Advised continuation of Miralax to prevent constipation and reduce strain on the inflamed area. - Completed antibiotic course; discussed potential residual weakness and internal tremors as post-infectious symptoms. # Bradycardia (R00.1) # PVC (premature ventricular contraction) (I49.3) - Heart rate stabilized in the 70s; previously noted bradycardia with heart rates in the 40s-50s during hospitalization. - Reduced metoprolol dosage to 25 mg BID; patient hesitant to resume due to concerns about bradycardia. - Discussed potential benefits of low-dose metoprolol (12.5 mg) for PVC management without significant impact on heart rate. - Patient to monitor heart rate and report any recurrence of bradycardia or PVCs. # Essential (primary) hypertension (I10) - Blood pressure readings: 155/80 mmHg today, previously 170s/90s and 130s/80s. - Inconsistent use of antihypertensive medications; previously on metoprolol 50 mg BID and lisinopril 10 mg. - Resumed lisinopril 5 mg daily; prescription for 90-day supply with 3 refills sent. - Discussed potential need to increase lisinopril to 10 mg if BP remains elevated. - Advised monitoring for symptoms of hypertensive urgency/emergency (headaches, blurry vision, chest pain, shortness of breath). # Thrush, oral (B37.0) - Prescribed nystatin suspension, 4 times daily for 14 days. - Educated on proper use: swish and swallow or swish and spit. - Advised to complete full course and report if symptoms persist. # Pulmonary fibrosis (HCC) (J84.10) - No acute issues noted during this visit. - Follow-up with pulmonology as scheduled. # Syncope, unspecified syncope type (R55) - No recurrent episodes since hospitalization. - Monitoring for any further incidents. # Chronic rhinitis (J31.0) # Post-nasal drip (R09.82) - Refilled azelastine nasal spray and Flonase. - Advised continued use as needed for symptom control. # Primary osteoarthritis of right knee (M17.11) - Discussed ongoing management and potential surgical intervention. - Advised maintaining optimal weight and controlling comorbid conditions to prepare for possible surgery. - Encouraged follow-up with orthopedic surgeon for evaluation and treatment options. I spent a total of 43 minutes on the date of the service which included preparing to see the patient, [id number] patient care, completing clinical documentation, obtaining and/or reviewing separately obtained history, performing a medically appropriate examination, and counseling and educating the patient/family/caregiver. TEACHING PROVIDER (Physician/PA/DIRECTOR [employer]LOBAL SALES) NOTE OF PERSONAL INVOLVEMENT IN CARE: I have personally seen and examined the patient and performed the medical decision-making components. I have reviewed the Medical Student's documentation and verified the findings in the note as written. Any additions or changes are noted in bold/italics. Signature: Kristy Brower Date: 03/24/2024 Time: 5:43 PM Kristy Brower MD documented in this encounter [facility] 03-18-2024 Telephone encounter Note Patient called and notified of provider instructions. Patient voiced understanding. Went over symptoms of high blood pressure, patient voiced understanding. Patient will call back if blood pressure gets to high or pulse gets too low. Patient states that she has been running in the 40s for quite a while. Patient does not have home health coming in for blood pressures. Son has been monitoring BP, pulse, and O2 levels and has been keeping a record of them. Patient will bring in log to appointment. Gwen Wade RN [facility] 03-18-2024 Miscellaneous Notes Patient called and notified of provider instructions. Patient voiced understanding. Went over symptoms of high blood pressure, patient voiced understanding. Patient will call back if blood pressure gets to high or pulse gets too low. Patient states that she has been running in the 40s for quite a while. Patient does not have home health coming in for blood pressures. Son has been monitoring BP, pulse, and O2 levels and has been keeping a record of them. Patient will bring in log to appointment. Gwen Wade RN Will home health be following with her to monitor BP, etc? The benadryl can be used just as needed for allergic reactions like rash. Does not need to take routinely. She could be feeling week from the pneumonia and diverticulitis. If not other symptoms, okay to finish the course of antibiotic (5 days more were prescribed at discharge 03/17 per medication dispense history). If her heart rate is not too low, may resume metoprolol. But verify whether taking it since looks like a RX for 25 mg was sent to the pharmacy. If is taking 25 mg, could increase back up to 50 mg if heart rate okay but BP still too high. If HR going too low (under 50) will need to consider alternate med that she can tolerate given her intolerance and allergy med list. Patient calls and states that she was at [facility] and was discharged yesterday 03/27/2024. Patient was diagnosed with Diverticulitis and Pneumonia. Patient was prescribed Levaquin while in hospital. In hospital patient was give Benadryl due to allergies to Levaquin. Patient was sent home with Levaquin 750 mg. Patient was told that it was up to her on whether to take Benadryl or not. Patient reports that she was having leg pains and restless legs while on Benadryl. Patient decided when she got home that she would not take the Benadryl. Patient reports that she has been shaky and weak. Patient thinks this is due to being on Levaquin. Patient states that she felt this way while she was in the hospital. While in hospital they took her off her blood pressure medication due to her pulse being too low (in the 40s). Patient was told to keep an eye on her blood pressure. Patient's blood pressure today at 7 am was 167/85 Pulse 60. Patient has hospital follow up with Dr. Brower on 03/24/2024. Please review and advise, Gwen Wade RN documented in this encounter [facility] 03-18-2024 Telephone encounter Note Will home health be following with her to monitor BP, etc? The benadryl can be used just as needed for allergic reactions like rash. Does not need to take routinely. She could be feeling week from the pneumonia and diverticulitis. If not other symptoms, okay to finish the course of antibiotic (5 days more were prescribed at discharge 03/17 per medication dispense history). If her heart rate is not too low, may resume metoprolol. But verify whether taking it since looks like a RX for 25 mg was sent to the pharmacy. If is taking 25 mg, could increase back up to 50 mg if heart rate okay but BP still too high. If HR going too low (under 50) will need to consider alternate med that she can tolerate given her intolerance and allergy med list. [facility] 03-18-2024 Telephone encounter Note Patient calls and states that she was at [facility] and was discharged yesterday 03/27/2024. Patient was diagnosed with Diverticulitis and Pneumonia. Patient was prescribed Levaquin while in hospital. In hospital patient was give Benadryl due to allergies to Levaquin. Patient was sent home with Levaquin 750 mg. Patient was told that it was up to her on whether to take Benadryl or not. Patient reports that she was having leg pains and restless legs while on Benadryl. Patient decided when she got home that she would not take the Benadryl. Patient reports that she has been shaky and weak. Patient thinks this is due to being on Levaquin. Patient states that she felt this way while she was in the hospital. While in hospital they took her off her blood pressure medication due to her pulse being too low (in the 40s). Patient was told to keep an eye on her blood pressure. Patient's blood pressure today at 7 am was 167/85 Pulse 60. Patient has hospital follow up with Dr. Brower on 03/24/2024. Please review and advise, Gwen Wade RN [facility] 03-17-2024 Nurse Note Discharge Note: 03/17/2024 1000 Discharged via wheelchair to private car accompanied by PCT, personal belongings taken with pt, no distress noted, no complaints voiced. Stu JOLLEY [facility] 03-17-2024 Nurse Note Discharge Note: 03/17/2024 1000 Discharged via wheelchair to private car accompanied by PCT, personal belongings taken with pt, no distress noted, no complaints voiced. Stu JOLLEY Discharge Note: 03/17/2024 0954 AVS and pt responsibilities reviewed with pt and copy given. Bradycardia, high blood pressure, syncope, education reviewed with pt and information sheets given. Pt verbalizes understanding of instructions received, verbalizes understanding of when to seek medical attention, denies any home going or personal care needs. Denies further questions or concerns. Reviewed follow up appts with pt and verbalizes understanding. Pt denies any symptoms, states feels ready to go home. Stu JOLLEY documented in this encounter [facility] Work Phone: 03-17-2024 Nurse Note Discharge Note: 03/17/2024 0954 AVS and pt responsibilities reviewed with pt and copy given. Bradycardia, high blood pressure, syncope, education reviewed with pt and information sheets given. Pt verbalizes understanding of instructions received, verbalizes understanding of when to seek medical attention, denies any home going or personal care needs. Denies further questions or concerns. Reviewed follow up appts with pt and verbalizes understanding. Pt denies any symptoms, states feels ready to go home. Stu JOLLEY [facility] Work Phone: 03-17-2024 History of Present illness Narrative Medication Education Medication education for Whitney Ruiz was provided to the patient and family for the following medication(s): Levofloxacin and metoprolol tartrate Medication education provided by a Pharmacist: ADR Counseling Alternative drug Dose, frequency, storage How to take and what to do if a dose is missed How the medication works and benefits of taking it Benefits of taking the medication Importance of compliance Potential duration of therapy Identified potential barriers to education: None Method(s) of Education: Verbal An opportunity to ask questions and receive answers was provided. Assessment of understanding the patient and family: 2= meets goals/outcomes Additional Notes (if applicable): went over levaquin and metoprolol. Levaquin for 5 more days for infection. Recommended probiotic. Patient asked about florajen but we dont have it here. Patient is going to get it from [facility]. Metoprolol changed from 50mg twice daily to 25mg twice daily. Meds 2 beds utilized. Metoprolol filled for 25mg tablet, went over splitting at home 50mg tabs if desired. Patient and son verbalized understanding. Mauricio Damon PharmD Physical Therapy Physical Therapy Evaluation Patient Name: Whitney Chong Today's Date: 03/16/2024 Time Calculation Start Time: 855 Stop Time: 919 Time Calculation (min): 24 min Assessment/Plan Patient able to perform transfers and mobility without assist and no LOB. She is safe with use of FWW and has good balance with same. No acute PT needs identified. Patient has good safety awareness overall. Continue ambulation with FWW PT Assessment Barriers to Discharge Home: No anticipated barriers Evaluation/Treatment Tolerance: Patient tolerated treatment well End of Session Communication: PCT/NA/CTA (communication on white board) End of Session Patient Position: Alarm on, Up in chair (call light in reach) IP OR SWING BED PT PLAN Inpatient or Swing Bed: Inpatient PT Plan PT Plan: PT Eval only PT Eval Only Reason: No acute PT needs identified PT Discharge Recommendations: No further acute PT PT Recommended Transfer Status: Independent PT - OK to Discharge: Yes (once medically appropriate) Subjective Current Problem: Patient Active Problem List Diagnosis Hemangioma of skin and subcutaneous tissue Other hypertrophic disorders of the skin Other melanin hyperpigmentation Inflamed seborrheic keratosis Other seborrheic keratosis Shortness of breath on exertion Unstable angina pectoris (Multi) CAD (coronary artery disease) Heart palpitations EMY on CPAP Pulmonary fibrosis (Multi) Abdominal mass Cervical spondylosis without myelopathy DDD (degenerative disc disease), cervical Coccydynia Diaphragmatic hernia Essential hypertension GERD (gastroesophageal reflux disease) History of supraventricular tachycardia Hyperlipidemia ILD (interstitial lung disease) (Multi) Lipoma Mild intermittent asthma with acute exacerbation ([facility]) Obesity, Class II, BMI 35-39.9 Occipital neuralgia Osteoarthritis Osteopenia Personal history of colonic polyps Porokeratosis Premature atrial contractions PVC's (premature ventricular contractions) Situational depression SVT (supraventricular tachycardia) ([facility]) Thyroid nodule Type 2 diabetes mellitus with diabetic neuropathy, without long-term current use of insulin Vitamin D deficiency Lung nodule Arthritis of left knee Effusion of left knee Contact with and (suspected) exposure to covid-19 Flank pain Lentiginosis Moderate persistent asthma without complication ([facility]) Rectal hemorrhage Seasonal allergic rhinitis Urinary tract infection Syncope, unspecified syncope type General Visit Information: General Reason for Referral: impaired mobility; Whitney Chong is a 78 y.o. female presenting diagnosis is post defecation syncope vasovagal medication reaction syncope near syncope. pt dx with UTI and PNA Referred By: Kuldip Engel Past Medical History Relevant to Rehab: DM, asthma Family/Caregiver Present: Yes (son eloise) Co-Treatment: OT Co-Treatment Reason: to maximize pt safety with mobility Prior to Session Communication: Bedside nurse Patient Position Received: Alarm off, caregiver present, Alarm off, not on at start of session (sitting EOB) General Comment: pt agreeable to assessment Home Living: Home Living Type of Home: House Lives With: Other (Comment) (1 son, 2 daughters) Home Adaptive Equipment: Walker rolling or standard (BSC) Home Layout: One level Home Access: Stairs to enter with rails Entrance Stairs-Number of Steps: 5+7 Bathroom Shower/Tub: Walk-in shower Bathroom Equipment: Grab bars in shower, Built-in shower seat Home Living Comments: pt sleeps in a regular bed. uses BSC at night for toileting Prior Level of Function: Prior Function Per Pt/Caregiver Report Receives Help From: Family ADL Assistance: Independent (son assists with compression socks) Ambulatory Assistance: Independent (mod indep with cane or FWW or no device depending on knee pain) Precautions: Precautions Medical Precautions: Fall precautions Vital Signs: Vital Signs Vital Signs Comment: no concerns Objective Pain: Pain Assessment Pain Assessment: 0-10 0-10 (Numeric) Pain Score: 5 - Moderate pain Pain Type: Chronic pain (arthritic) Pain Location: Knee Pain Orientation: (both) Pain Interventions: Medication (See MAR) Cognition: Cognition Orientation Level: Oriented X4 General Assessments: General Observation General Observation: pleasant and cooperative Activity Tolerance Endurance: Endurance does not limit participation in activity Sensation Light Touch: No apparent deficits Strength Strength Comments: LEs grossly >/=3+/5 Static Sitting Balance Static Sitting-Balance Support: Feet supported Static Sitting-Level of Assistance: Independent Dynamic Sitting Balance Dynamic Sitting-Balance Support: Feet supported Dynamic Sitting-Level of Assistance: Close supervision Dynamic Sitting-Balance: Forward lean Static Standing Balance Static Standing-Balance Support: No upper extremity supported Static Standing-Level of Assistance: Close supervision Dynamic Standing Balance Dynamic Standing-Balance Support: No upper extremity supported Dynamic Standing-Level of Assistance: Close supervision Dynamic Standing-Balance: (jose j/doff brief/toilet) Functional Assessments: Bed Mobility Bed Mobility: Yes Bed Mobility 1 Bed Mobility 1: Supine to sitting, Sitting to supine Level of Assistance 1: Modified independent Transfers Transfer: Yes Transfer 1 Technique 1: Sit to stand, Stand to sit Transfer Device 1: Gait belt (FWW) Transfer Level of Assistance 1: Modified independent Trials/Comments 1: from EOB, to recliner, to/from toilet Ambulation/Gait Training Ambulation/Gait Training Performed: Yes Ambulation/Gait Training 1 Surface 1: Level tile Device 1: Rolling walker Gait Support Devices: Gait belt Assistance 1: Close supervision Comments/Distance (ft) 1: 110ft, no LOB; educated to turn more slowly with changing directions to prevent dizziness Outcome Measures: [facility] Basic Mobility Turning from your back to your side while in a flat bed without using bedrails: None Moving from lying on your back to sitting on the side of a flat bed without using bedrails: None Moving to and from bed to chair (including a wheelchair): None Standing up from a chair using your arms (e.g. wheelchair or bedside chair): None To walk in hospital room: None Climbing 3-5 steps with railing: A little Basic Mobility - Total Score: 23 Goals: no acute PT needs identified Encounter Problems Encounter Problems (Active) Pain - Adult Education Documentation No documentation found. Education Comments No comments found. 03/16/24 1204 Discharge Planning Living Arrangements Children Support Systems Children Assistance Needed minimal and all transportation Type of Residence Private residence Number of Stairs to Enter Residence 0 Number of Stairs Within Residence 10 Do you have animals or pets at home? No Who is requesting discharge planning? Provider Home or Post Acute Services None Expected Discharge Disposition Home Does the patient need discharge transport arranged? No Financial Resource Strain How hard is it for you to pay for the very basics like food, housing, medical care, and heating? Not hard Housing Stability In the last 12 months, was there a time when you were not able to pay the mortgage or rent on time? N In the past 12 months, how many times have you moved where you were living? 0 At any time in the past 12 months, were you homeless or living in a penitentiary (including now)? N Transportation Needs In the past 12 months, has lack of transportation kept you from medical appointments or from getting medications? no In the past 12 months, has lack of transportation kept you from meetings, work, or from getting things needed for daily living? No Stroke Family Assessment Stroke Family Assessment Needed No Intensity of Service Intensity of Service 0-30 min Met with pt and son Eloise at the bedside and verified address, phone number and emergency contact information. PCP is Dr Brower last seen this month and preferred pharmacy is [facility], denies issues obtaining or affording medications and takes as ordered. Pt uses a walker, cane , shower chair and grab bars, lift chair and C-pap. Pt is a diabetic with a CGM and she does NOT wear home oxygen. Pt is independent, lives at home with son and daughter and feels safe. Discharge plan is to return home no new needs. [facility] per nursing pending PT/OT eval. ADOD 03/17. Care transitions to follow. Janelle Alves BSN/RN-TCC Occupational Therapy Evaluation Patient Name: Whitney Chong Today's Date: 03/16/2024 Time Calculation Start Time: 854 Stop Time: 920 Time Calculation (min): 26 min 319/319-A Assessment IP OT Assessment OT Assessment: pt is able to complete ADL and mobility at [facility]. no further OT recommended at this time. pt and pt's son educated on appropriate walker height at home. Prognosis: Excellent Barriers to Discharge Home: No anticipated barriers Evaluation/Treatment Tolerance: Patient tolerated treatment well End of Session Communication: (communication on white board) End of Session Patient Position: Alarm on, Up in chair Plan: No Skilled OT: At baseline function OT Frequency: OT eval only OT Discharge Recommendations: No further acute OT, No OT needed after discharge OT Recommended Transfer Status: Stand by assist OT - OK to Discharge: Yes (once medically stable) Subjective Current Problem: 1. Syncope, unspecified syncope type 2. Pneumonitis 3. Diverticulitis 4. Bradycardia General: General Reason for Referral: Whitney Chong is a 78 y.o. female presenting diagnosis is post defecation syncope vasovagal medication reaction syncope near syncope. pt dx with UTI and PNA Referred By: Kuldip Engel Past Medical History Relevant to Rehab: DM, asthma Family/Caregiver Present: Yes (son) Co-Treatment: PT Co-Treatment Reason: to maximize pt safety Prior to Session Communication: Bedside nurse Patient Position Received: Alarm off, caregiver present, Alarm off, not on at start of session (sitting EOB) General Comment: pt agreeable to assessment Precautions: Medical Precautions: Fall precautions Vital Signs: Vital Signs Comment: no concerns Pain: Pain Assessment Pain Assessment: 0-10 0-10 (Numeric) Pain Score: 5 - Moderate pain (knees- arthritis pain) Objective Cognition: Overall Cognitive Status: Within Functional Limits Orientation Level: Oriented X4 Home Living: Type of Home: House Lives With: Other (Comment) (1 son and 2 daughters) Home Adaptive Equipment: Walker rolling or standard (BSC) Home Layout: One level Home Access: Stairs to enter with rails Entrance Stairs-Number of Steps: 5+7 Bathroom Shower/Tub: Walk-in shower Bathroom Equipment: Grab bars in shower, Built-in shower seat Home Living Comments: pt sleeps in a regular bed. uses BSC at night for toileting Prior Function: Receives Help From: Family ADL Assistance: Independent (son assists with compression socks) Ambulatory Assistance: Independent (PA with either walker or cane depending on knee pain) ADL: Eating Assistance: Independent Grooming Assistance: Independent Bathing Assistance: Stand by UE Dressing Assistance: Stand by LE Dressing Assistance: Minimal Toileting Assistance with Device: Modified independent Activity Tolerance: Endurance: Endurance does not limit participation in activity Bed Mobility/Transfers: Bed Mobility Bed Mobility: Yes Bed Mobility 1 Bed Mobility 1: Supine to sitting, Sitting to supine Level of Assistance 1: Modified independent Transfers Transfer: Yes Transfer 1 Technique 1: Sit to stand, Stand to sit Transfer Device 1: Walker, Gait belt Transfer Level of Assistance 1: Modified independent Trials/Comments 1: from EOB and toilet Ambulation/Gait Training: Functional Mobility Functional Mobility Performed: Yes Functional Mobility 1 Surface 1: Level tile Device 1: Rolling walker Functional Mobility Support Devices: Gait belt Assistance 1: Close supervision (modified indep but SBA due to recent syncopal event) Vision: Vision - Basic Assessment Current Vision: No visual deficits Sensation: Light Touch: No apparent deficits Strength: Strength Comments: WFL Outcome Measures: [facility] Daily Activity Putting on and taking off regular lower body clothing: A little Bathing (including washing, rinsing, drying): A little Putting on and taking off regular upper body clothing: A little Toileting, which includes using toilet, bedpan or urinal: None Taking care of personal grooming such as brushing teeth: None Eating Meals: None Daily Activity - Total Score: 21 Whitney Chong is a 78 y.o. female on day 1 of admission presenting with Syncope, unspecified syncope type. Subjective Patient sitting up side of the bed eating breakfast. She is much more alert and looking really good today. No overnight events. Patient reports her stomach still is a little upset and not feeling right but overall improved from yesterday. Patient reports she lives with her 3 children. Objective Last Recorded Vitals BP 132/63 (BP Location: Right arm, Patient Position: Lying) Pulse 57 Temp 36.3 C (97.3 F) (Temporal) Resp 18 Wt 86.2 kg (190 lb 1.6 oz) SpO2 95% Intake/Output last 3 Shifts: Intake/Output Summary (Last 24 hours) at 03/16/2024 0914 Last data filed at 03/15/2024 2317 Gross per 24 hour Intake 1150 ml Output 400 ml Net 750 ml Admission Weight Weight: 84.4 kg (186 lb) (03/15/24 1153) Daily Weight 03/15/24 : 86.2 kg (190 lb 1.6 oz) Image Results CT abdomen pelvis wo IV contrast Narrative: STUDY: CT Abdomen and Pelvis without IV Contrast; 03/15/2024, 1305 INDICATION: Abdominal pain, diarrhea. Rule out colitis/diverticulitis. COMPARISON: CT abd 01/11/2024, 12/24/2022. ACCESSION NUMBER(S): [id number] ORDERING CLINICIAN: ROCAEL CORREA TECHNIQUE: CT of the abdomen and pelvis was performed. Contiguous axial images were obtained at 3 mm slice thickness through the abdomen and pelvis. Coronal and sagittal reconstructions at 3 mm slice thickness were performed. No intravenous contrast was administered. Automated mA/kV exposure control was utilized and patient examination was performed in strict accordance with principles of ALARA. FINDINGS: Please note that the evaluation of vessels, lymph nodes and organs is limited without intravenous contrast. LOWER CHEST: Cardiomegaly. Calcifications within the mitral valve. Calcified right hilar lymph nodes No pericardial effusion. Fibrosis within the lung bases ABDOMEN: LIVER: No hepatomegaly. Smooth surface contour. Multiple calcified granulomas BILE DUCTS: No intrahepatic or extrahepatic biliary ductal dilatation. GALLBLADDER: The gallbladder is absent. STOMACH: Moderate amount of food debris within the stomach. PANCREAS: No masses or ductal dilatation. SPLEEN: Multiple calcified granulomas ADRENAL GLANDS: No thickening or nodules. KIDNEYS AND URETERS: Kidneys are normal in size and location. No renal or ureteral calculi. PELVIS: BLADDER: Partially empty REPRODUCTIVE ORGANS: Uterus is absent BOWEL: Colonic diverticulosis. Mild inflammatory changes are present adjacent to the distal descending colon image 96. Negative for bowel obstruction. Constipation. Normal appendix VESSELS: Limited due to timing of the contrast bolus. Duplicated inferior vena cava. Abdominal aorta is normal in caliber. PERITONEUM/RETROPERITONEUM/LYMPH NODES: No free fluid. No pneumoperitoneum. No lymphadenopathy. ABDOMINAL WALL: Small fat-containing umbilical hernia. SOFT TISSUES: No abnormalities identified. BONES: No acute fracture or aggressive osseous lesion. Impression: Mild acute diverticulitis distal descending colon left lower quadrant. Negative for perforation or abscess. Normal appendix. Signed by Luis Crook MD XR chest 1 view Narrative: STUDY: Chest Radiograph; 03/15/2024 12:19PM INDICATION: Syncope. COMPARISON: 12/24/2022 XR Ribs with Chest, 12/23/2021 XR Chest, 08/20/2021 XR Chest ACCESSION NUMBER(S): [id number] ORDERING CLINICIAN: ROCAEL CORREA TECHNIQUE: Frontal chest was obtained at 12:18 hours. FINDINGS: CARDIOMEDIASTINAL SILHOUETTE: Heart is enlarged with increased pulmonary vascularity. LUNGS: Peripheral patchy opacities in the lung bases right greater than left, new compared to remote prior from 12/24/2022. ABDOMEN: No remarkable upper abdominal findings. BONES: No acute osseous changes. Impression: Peripheral patchy opacities in the lung bases right greater than left, new compared to remote prior from 12/24/2022. Correlate clinically for pneumonia. Signed by Jordan Modi MD ECG 12 lead Marked sinus bradycardia Abnormal ECG When compared with ECG of 21-FEB-2024 23:52, Vent. rate has decreased BY 23 BPM See ED provider note for full interpretation and clinical correlation Confirmed by Marisa Yoon ([id number]) on 03/15/2024 12:28:21 PM Physical Exam Constitutional: General: She is not in acute distress. Appearance: She is obese. She is not toxic-appearing. HENT: Head: Normocephalic and atraumatic. Mouth: Mucous membranes are moist. Pharynx: Oropharynx is clear. Eyes: Extraocular Movements: Extraocular movements intact. Conjunctiva/sclera: Conjunctivae normal. Pupils: Pupils are equal, round, and reactive to light. Cardiovascular: Rate and Rhythm: Bradycardia present. Pulses: Normal pulses. Heart sounds: No murmur heard. Pulmonary: Effort: Pulmonary effort is normal. Breath sounds: Normal breath sounds. No wheezing. Abdominal: General: Bowel sounds present no distention. Palpations: There is no hepatomegaly or splenomegaly. Tenderness: There is generalized abdominal tenderness. There is no right CVA tenderness, left CVA tenderness, guarding or rebound. Hernia: No hernia is present. Musculoskeletal: General: Normal range of motion. Cervical back: Normal range of motion and neck supple. No rigidity or tenderness. Right lower leg: No edema. Left lower leg: No edema. Skin: General: Skin is warm and dry. Capillary Refill: Capillary refill takes less than 2 seconds. Neurological: General: No focal deficit present. Mental Status: She is alert and oriented to person, place, and time. Sensory: Sensation is intact. Motor: Motor function is intact. No weakness or tremor. Coordination: Coordination is intact. Psychiatric: Mood and Affect: Mood normal. Behavior: Behavior normal. Relevant Results Results for orders placed or performed during the hospital encounter of 03/15/24 (from the past 24 hours) ECG 12 lead Result Value Ref Range Ventricular Rate 43 BPM Atrial Rate 43 BPM IL Interval 134 ms QRS Duration 84 ms QT Interval 500 ms QTC Calculation(Bazett) 422 ms P Murray 0 degrees R Murray -5 degrees T Murray 7 degrees QRS Count 7 beats Q Onset 215 ms P Onset 148 ms P Offset 206 ms T Offset 465 ms QTC Fredericia 447 ms CBC and Auto Differential Result Value Ref Range WBC 8.9 4.4 - 11.3 x10*3/uL nRBC 0.0 0.0 - 0.0 /100 WBCs RBC 4.52 4.00 - 5.20 x10*6/uL Hemoglobin 13.2 12.0 - 16.0 g/dL Hematocrit 41.1 36.0 - 46.0 % MCV 91 80 - 100 fL MCH 29.2 26.0 - 34.0 pg MCHC 32.1 32.0 - 36.0 g/dL RDW 13.4 11.5 - 14.5 % Platelets 285 150 - 450 x10*3/uL Neutrophils % 65.6 40.0 - 80.0 % Immature Granulocytes %, Automated 0.2 0.0 - 0.9 % Lymphocytes % 19.9 13.0 - 44.0 % Monocytes % 11.3 2.0 - 10.0 % Eosinophils % 2.5 0.0 - 6.0 % Basophils % 0.5 0.0 - 2.0 % Neutrophils Absolute 5.82 (H) 1.60 - 5.50 x10*3/uL Immature Granulocytes Absolute, Automated 0.02 0.00 - 0.50 x10*3/uL Lymphocytes Absolute 1.76 0.80 - 3.00 x10*3/uL Monocytes Absolute 1.00 (H) 0.05 - 0.80 x10*3/uL Eosinophils Absolute 0.22 0.00 - 0.40 x10*3/uL Basophils Absolute 0.04 0.00 - 0.10 x10*3/uL Basic metabolic panel Result Value Ref Range Glucose 190 (H) 74 - 99 mg/dL Sodium 139 136 - 145 mmol/L Potassium 4.3 3.5 - 5.3 mmol/L Chloride 105 98 - 107 mmol/L Bicarbonate 26 21 - 32 mmol/L Anion Gap 12 10 - 20 mmol/L Urea Nitrogen 22 6 - 23 mg/dL Creatinine 0.58 0.50 - 1.05 mg/dL eGFR >90 >60 mL/min/1.73m*2 Calcium 9.3 8.6 - 10.3 mg/dL Lipase Result Value Ref Range Lipase 12 9 - 82 U/L Hepatic function panel Result Value Ref Range Albumin 3.9 3.4 - 5.0 g/dL Bilirubin, Total 0.5 0.0 - 1.2 mg/dL Bilirubin, Direct 0.0 0.0 - 0.3 mg/dL Alkaline Phosphatase 56 33 - 136 U/L ALT 8 7 - 45 U/L AST 13 9 - 39 U/L Total Protein 6.3 (L) 6.4 - 8.2 g/dL B-Type Natriuretic Peptide Result Value Ref Range BNP 240 (H) 0 - 99 pg/mL Protime-INR Result Value Ref Range Protime 13.0 (H) 9.8 - 12.8 seconds INR 1.1 0.9 - 1.1 APTT Result Value Ref Range aPTT 29 27 - 38 seconds Troponin I, High Sensitivity, Initial Result Value Ref Range Troponin I, High Sensitivity 3 0 - 13 ng/L Sars-CoV-2 PCR Result Value Ref Range Coronavirus 2019, PCR Not Detected Not Detected Influenza A, and B PCR Result Value Ref Range Flu A Result Not Detected Not Detected Flu B Result Not Detected Not Detected Keith Top Result Value Ref Range Extra Tube Hold for add-ons. C. difficile, PCR Specimen: Stool Result Value Ref Range C. difficile, PCR Not Detected Not Detected Troponin, High Sensitivity, 1 Hour Result Value Ref Range Troponin I, High Sensitivity 3 0 - 13 ng/L Urinalysis with Reflex Culture and Microscopic Result Value Ref Range Color, Urine Light-Yellow Light-Yellow, Yellow, Dark-Yellow Appearance, Urine Clear Clear Specific [place], Urine 1.015 1.005 - 1.035 pH, Urine 6.5 5.0, 5.5, 6.0, 6.5, 7.0, 7.5, 8.0 Protein, Urine NEGATIVE NEGATIVE, 10 (TRACE), 20 (TRACE) mg/dL Glucose, Urine Normal Normal mg/dL Blood, Urine NEGATIVE NEGATIVE Ketones, Urine NEGATIVE NEGATIVE mg/dL Bilirubin, Urine NEGATIVE NEGATIVE Urobilinogen, Urine Normal Normal mg/dL Nitrite, Urine NEGATIVE NEGATIVE Leukocyte Esterase, Urine 250 Sarah/ L (A) NEGATIVE Microscopic Only, Urine Result Value Ref Range WBC, Urine 6-10 (A) 1-5, NONE /HPF RBC, Urine 1-2 NONE, 1-2, 3-5 /HPF Squamous Epithelial Cells, Urine 1-9 (SPARSE) Reference range not established. /HPF Bacteria, Urine 1+ (A) NONE SEEN /HPF Mucus, Urine FEW Reference range not established. /LPF Amorphous Crystals, Urine 1+ NONE, 1+, 2+ /HPF Extra Urine Keith Tube Result Value Ref Range Extra Tube Hold for add-ons. Assessment/Plan Whitney Chong is a 78 y.o. female presenting diagnosis is post defecation syncope vasovagal reaction syncope near syncope. Chest x-ray showed patchy opacities in the lung bases right greater than the left. CT abdomen and pelvis show mild acute diverticulitis. Patient admitted for further evaluation and treatment. Assessment & Plan Syncope, unspecified syncope type -Post defecation syncopal vasovagal reaction -Patient received fluids in the emergency department. Will encourage p.o. intake. -PT OT consult Bradycardia -Telemetry -Will hold metoprolol-heart rate remains in the 50s. Blood pressure stable Mild diverticulitis -Patient without fever or abdominal pain. -C. difficile negative, no fever or leukocytosis -No further diarrhea. No blood or mucousy stools. Possible UTI -Cultures pending Pneumonia - IV Levaquin given initially. transition to oral Levaquin today -Check urine antigens for strep and Legionella -Will give as needed order for Benadryl since patient has over 30 reported allergies Asthma, ILD/EMY on CPAP -Continue CPAP therapy for EMY. APAP from 5-15 cwp to 10-14 cwp since P95 12.4 cwp. Changed auto ramp to ramp x 15 min and set up EPR.. Continue APAP 10-14 cwp. DVT prophylaxis Lovenox SCDs frequent ambulation Disposition Home tomorrow if medically stable EDEN Mathur documented in this encounter [facility] Work Phone: 03-17-2024 Hospital Discharge instructions EDEN Mathur - 03/17/2024 9:12 AM EST Please write down your blood pressure and heart rate daily for your PCP to evaluate. Your heart rate has been low and today and yesterday your blood pressure has been a little higher. The following attachments cannot be sent through Care Everywhere.Syncope (Fainting) Discharge Instructions (Iranian)Bradycardia (Iranian)High blood pressure emergencies (Iranian)documented in this encounter [facility] Work Phone: 03-17-2024 Hospital course Narrative Discharge Diagnosis Syncope, unspecified syncope type Issues Requiring Follow-Up Bradycardia Mild diverticulitis Pneumonia Discharge Meds Medication List START taking these medications levoFLOXacin 750 mg tablet; Commonly known as: Levaquin; Take 1 tablet (750 mg) by mouth once every 24 hours for 5 days. CHANGE how you take these medications metoprolol tartrate 50 mg tablet; Commonly known as: Lopressor; Take 0.5 tablets by mouth 2 times a day. Do Not take if HR less than 60; What changed: how much to take, additional instructions CONTINUE taking these medications acetaminophen 500 mg tablet; Commonly known as: Tylenol albuterol 90 mcg/actuation inhaler aspirin 81 mg capsule azelastine 137 mcg (0.1 %) nasal spray; Commonly known as: Astelin; Administer 1 spray into each nostril 2 times a day. Use in each nostril as directed Blood Glucose Test strip; Generic drug: blood sugar diagnostic cholecalciferol 125 mcg (5000 UT) capsule; Commonly known as: Vitamin D-3 Clear Eyes Redness Relief 0.012-0.2 % drops; Generic drug: naphazoline-glycerin cyanocobalamin 500 mcg tablet; Commonly known as: Vitamin B-12 fluticasone 50 mcg/actuation nasal spray; Commonly known as: Flonase FreeStyle Alex 2 Sensor kit; Generic drug: flash glucose sensor kit Gas Relief Extra Strength 125 mg chewable tablet; Generic drug: simethicone L. acidophilus/Bifid. animalis 15.5 billion cell capsule omeprazole [address] capsule; Commonly known as: PriLOSEC potassium chloride CR 10 mEq ER tablet; Commonly known as: Klor-Con torsemide 10 mg tablet; Commonly known as: Demadex STOP taking these medications hydrALAZINE 25 mg tablet; Commonly known as: Apresoline ketoconazole 2 % shampoo; Commonly known as: NIZOral montelukast 10 mg tablet; Commonly known as: Singulair pantoprazole 40 mg EC tablet; Commonly known as: Protonix Test Results Pending At Discharge Pending Labs Order Current Status Legionella Antigen, Urine In process Streptococcus pneumoniae Antigen, Urine In process Urine culture In process Hospital Course Whitney Chong is a 78 y.o. female presenting diagnosis is post defecation syncope vasovagal reaction syncope near syncope. Chest x-ray showed patchy opacities in the lung bases right greater than the left. CT abdomen and pelvis show mild acute diverticulitis. Patient admitted for further evaluation and treatment. Syncope, unspecified syncope type -Post defecation syncopal vasovagal reaction -Patient received fluids in the emergency department. Will encourage p.o. intake. -PT OT consult-scored well 21 and 23 -CT head no acute intracranial abnormality. Bradycardia -Since dose was decreased heart rate anywhere from 53-63. Will decrease dose even further to 25 mg twice daily with parameters to hold if heart rate is less than 60. Patient to keep log and follow-up with PCP. Mild diverticulitis -Patient without fever or abdominal pain. -C. difficile negative, no fever or leukocytosis -No further diarrhea. No blood or mucousy stools. -Levaquin continued. Possible UTI -Cultures negative Pneumonia -Chest x-ray revealed Peripheral patchy opacities in the lung bases right greater than left. - IV Levaquin given initially. transition to oral Levaquin today. Patient will be discharged with 5 more days of this prescription. She may use oral Benadryl if concern for sensitivity. However she has been tolerating this medication without any adverse events. Asthma, ILD/EMY on CPAP -Continue CPAP therapy for EMY. APAP from 5-15 cwp to 10-14 cwp since P95 12.4 cwp. Changed auto ramp to ramp x 15 min and set up EPR.. Continue APAP 10-14 cwp. Patient has remained stable and will be discharged home today. Recommend she follow-up with her PCP within 1 week of discharge. Pertinent Physical Exam At Time of Discharge Physical Exam Constitutional: General: She is not in acute distress. Appearance: She is obese. She is not toxic-appearing. HENT: Head: Normocephalic and atraumatic. Mouth: Mucous membranes are moist. Eyes: Extraocular Movements: Extraocular movements intact. Conjunctiva/sclera: Conjunctivae normal. Pupils: Pupils are equal, round, and reactive to light. Cardiovascular: Rate and Rhythm: Bradycardia present. Pulses: Normal pulses. Heart sounds: No murmur heard. Pulmonary: Effort: Pulmonary effort is normal. Breath sounds: Normal breath sounds. No wheezing. Abdominal: General: Bowel sounds present no distention. Palpations: There is no right CVA tenderness, left CVA tenderness, guarding or rebound. Hernia: No hernia is present. Musculoskeletal: General: Normal range of motion. Cervical back: Normal range of motion and neck supple. No rigidity or tenderness. Right lower leg: No edema. Left lower leg: No edema. Skin: General: Skin is warm and dry. Capillary Refill: Capillary refill takes less than 2 seconds. Neurological: General: No focal deficit present. Mental Status: She is alert and oriented to person, place, and time. Sensory: Sensation is intact. Motor: Motor function is intact. No weakness or tremor. Coordination: Coordination is intact. Psychiatric: Mood and Affect: Mood normal. Behavior: Behavior normal. Relevant Results Outpatient Follow-Up Future Appointments Date Time Provider Department Center 04/01/2024 12:00 PM Franck Lambert MD [id number] [facility] 09/12/2024 1:20 PM Johanna Patino MD [id number] [facility] EDEN Mathur documented in this encounter [facility] Work Phone: 03-17-2024 Plan of care note The patient's goals for the shift include use the call light The clinical goals for the shift include no falls Over the shift, the patient did not make progress toward the following goals. Barriers to progression include . Recommendations to address these barriers include . [facility] 03-17-2024 Miscellaneous Notes The patient's goals for the shift include use the call light The clinical goals for the shift include no falls Over the shift, the patient did not make progress toward the following goals. Barriers to progression include . Recommendations to address these barriers include . The patient's goals for the shift include use the call light The clinical goals for the shift include no falls Over the shift, the patient did not make progress toward the following goals. Barriers to progression include Problem: Chronic Conditions and Co-morbidities Goal: Patient's chronic conditions and co-morbidity symptoms are monitored and maintained or improved Outcome: Progressing . Recommendations to address these barriers include Problem: Pain - Adult Goal: Verbalizes/displays adequate comfort level or baseline comfort level Outcome: Progressing . Associated Problem(s): Syncope, unspecified syncope type (Resolved 03/17/2024) -Post defecation syncopal vasovagal reaction -Patient received fluids in the emergency department. Will encourage p.o. intake. -PT OT consult Bradycardia -Telemetry -Will hold metoprolol-heart rate remains in the 50s. Blood pressure stable Mild diverticulitis -Patient without fever or abdominal pain. -C. difficile negative, no fever or leukocytosis -No further diarrhea. No blood or mucousy stools. Possible UTI -Cultures pending Pneumonia - IV Levaquin given initially. transition to oral Levaquin today -Check urine antigens for strep and Legionella -Will give as needed order for Benadryl since patient has over 30 reported allergies Asthma, ILD/EMY on CPAP -Continue CPAP therapy for EMY. APAP from 5-15 cwp to 10-14 cwp since P95 12.4 cwp. Changed auto ramp to ramp x 15 min and set up EPR.. Continue APAP 10-14 cwp. The patient's goals for the shift include use the call light The clinical goals for the shift include no falls Pt. In bed with eyes closed for most of the shift. No complaints. Respirations even and unlabored. Call light within reach, will continue to monitor. Problem: Pain - Adult Goal: Verbalizes/displays adequate comfort level or baseline comfort level Outcome: Progressing Problem: Safety - Adult Goal: Free from fall injury Outcome: Progressing Problem: Discharge Planning Goal: Discharge to home or other facility with appropriate resources Outcome: Progressing Problem: Chronic Conditions and Co-morbidities Goal: Patient's chronic conditions and co-morbidity symptoms are monitored and maintained or improved Outcome: Progressing Problem: Fall/Injury Goal: Not fall by end of shift Outcome: Progressing Goal: Be free from injury by end of the shift Outcome: Progressing Goal: Verbalize understanding of personal risk factors for fall in the hospital Outcome: Progressing Goal: Verbalize understanding of risk factor reduction measures to prevent injury from fall in the home Outcome: Progressing Goal: Use assistive devices by end of the shift Outcome: Progressing Goal: Pace activities to prevent fatigue by end of the shift Outcome: Progressing Problem: Fall/Injury Goal: Not fall by end of shift Outcome: Progressing Problem: Pain - Adult Goal: Verbalizes/displays adequate comfort level or baseline comfort level Outcome: Progressing Problem: Safety - Adult Goal: Free from fall injury Outcome: Progressing Problem: Discharge Planning Goal: Discharge to home or other facility with appropriate resources Outcome: Progressing Problem: Chronic Conditions and Co-morbidities Goal: Patient's chronic conditions and co-morbidity symptoms are monitored and maintained or improved Outcome: Progressing Problem: Fall/Injury Goal: Not fall by end of shift Outcome: Progressing Goal: Be free from injury by end of the shift Outcome: Progressing Goal: Verbalize understanding of personal risk factors for fall in the hospital Outcome: Progressing Goal: Verbalize understanding of risk factor reduction measures to prevent injury from fall in the home Outcome: Progressing Goal: Use assistive devices by end of the shift Outcome: Progressing Goal: Pace activities to prevent fatigue by end of the shift Outcome: Progressing The patient's goals for the shift include use the call light The clinical goals for the shift include no falls Over the shift, the patient did not make progress toward the following goals. Barriers to progression include . Recommendations to address these barriers include . Associated Problem(s): Syncope, unspecified syncope type (Resolved 03/17/2024) -Post defecation syncopal vasovagal reaction -Will check orthostats -Patient received fluids in the emergency department. Will encourage p.o. intake. Bradycardia -Telemetry -Will hold metoprolol Mild diverticulitis -Patient without fever or abdominal pain. -C. difficile negative, no fever or leukocytosis Pneumonia -Will give IV Levaquin as symptoms improve will transition to oral -Check urine antigens for strep and Legionella -Will give as needed order for Benadryl since patient has over 30 reported allergies Asthma, ILD/EMY on CPAP -Continue CPAP therapy for EMY. APAP from 5-15 cwp to 10-14 cwp since P95 12.4 cwp. Changed auto ramp to ramp x 15 min and set up EPR.. Continue APAP 10-14 cwp. documented in this encounter [facility] Work Phone: 03-16-2024 Plan of care note The patient's goals for the shift include use the call light The clinical goals for the shift include no falls Over the shift, the patient did not make progress toward the following goals. Barriers to progression include Problem: Chronic Conditions and Co-morbidities Goal: Patient's chronic conditions and co-morbidity symptoms are monitored and maintained or improved Outcome: Progressing . Recommendations to address these barriers include Problem: Pain - Adult Goal: Verbalizes/displays adequate comfort level or baseline comfort level Outcome: Progressing . [facility] 03-16-2024 Evaluation + Plan note Associated Problem(s): Syncope, unspecified syncope type (Resolved 03/17/2024) -Post defecation syncopal vasovagal reaction -Patient received fluids in the emergency department. Will encourage p.o. intake. -PT OT consult Bradycardia -Telemetry -Will hold metoprolol-heart rate remains in the 50s. Blood pressure stable Mild diverticulitis -Patient without fever or abdominal pain. -C. difficile negative, no fever or leukocytosis -No further diarrhea. No blood or mucousy stools. Possible UTI -Cultures pending Pneumonia - IV Levaquin given initially. transition to oral Levaquin today -Check urine antigens for strep and Legionella -Will give as needed order for Benadryl since patient has over 30 reported allergies Asthma, ILD/EMY on CPAP -Continue CPAP therapy for EMY. APAP from 5-15 cwp to 10-14 cwp since P95 12.4 cwp. Changed auto ramp to ramp x 15 min and set up EPR.. Continue APAP 10-14 cwp. [facility] Work Phone: 03-16-2024 Plan of care note The patient's goals for the shift include use the call light The clinical goals for the shift include no falls Pt. In bed with eyes closed for most of the shift. No complaints. Respirations even and unlabored. Call light within reach, will continue to monitor. Problem: Pain - Adult Goal: Verbalizes/displays adequate comfort level or baseline comfort level Outcome: Progressing Problem: Safety - Adult Goal: Free from fall injury Outcome: Progressing Problem: Discharge Planning Goal: Discharge to home or other facility with appropriate resources Outcome: Progressing Problem: Chronic Conditions and Co-morbidities Goal: Patient's chronic conditions and co-morbidity symptoms are monitored and maintained or improved Outcome: Progressing Problem: Fall/Injury Goal: Not fall by end of shift Outcome: Progressing Goal: Be free from injury by end of the shift Outcome: Progressing Goal: Verbalize understanding of personal risk factors for fall in the hospital Outcome: Progressing Goal: Verbalize understanding of risk factor reduction measures to prevent injury from fall in the home Outcome: Progressing Goal: Use assistive devices by end of the shift Outcome: Progressing Goal: Pace activities to prevent fatigue by end of the shift Outcome: Progressing Problem: Fall/Injury Goal: Not fall by end of shift Outcome: Progressing [facility] 03-15-2024 Plan of care note Problem: Pain - Adult Goal: Verbalizes/displays adequate comfort level or baseline comfort level Outcome: Progressing Problem: Safety - Adult Goal: Free from fall injury Outcome: Progressing Problem: Discharge Planning Goal: Discharge to home or other facility with appropriate resources Outcome: Progressing Problem: Chronic Conditions and Co-morbidities Goal: Patient's chronic conditions and co-morbidity symptoms are monitored and maintained or improved Outcome: Progressing Problem: Fall/Injury Goal: Not fall by end of shift Outcome: Progressing Goal: Be free from injury by end of the shift Outcome: Progressing Goal: Verbalize understanding of personal risk factors for fall in the hospital Outcome: Progressing Goal: Verbalize understanding of risk factor reduction measures to prevent injury from fall in the home Outcome: Progressing Goal: Use assistive devices by end of the shift Outcome: Progressing Goal: Pace activities to prevent fatigue by end of the shift Outcome: Progressing The patient's goals for the shift include use the call light The clinical goals for the shift include no falls Over the shift, the patient did not make progress toward the following goals. Barriers to progression include . Recommendations to address these barriers include . [facility] Work Phone: 03-15-2024 Evaluation + Plan note Associated Problem(s): Syncope, unspecified syncope type (Resolved 03/17/2024) -Post defecation syncopal vasovagal reaction -Will check orthostats -Patient received fluids in the emergency department. Will encourage p.o. intake. Bradycardia -Telemetry -Will hold metoprolol Mild diverticulitis -Patient without fever or abdominal pain. -C. difficile negative, no fever or leukocytosis Pneumonia -Will give IV Levaquin as symptoms improve will transition to oral -Check urine antigens for strep and Legionella -Will give as needed order for Benadryl since patient has over 30 reported allergies Asthma, ILD/EMY on CPAP -Continue CPAP therapy for EMY. APAP from 5-15 cwp to 10-14 cwp since P95 12.4 cwp. Changed auto ramp to ramp x 15 min and set up EPR.. Continue APAP 10-14 cwp. [facility] Work Phone: 03-15-2024 History and physical note History Of Present Illness Whitney Chong is a 78 y.o. female presenting diagnosis is post defecation syncope vasovagal medication reaction syncope near syncope. Normal saline bolus of 1 L was given. Labs as well as CT scan of the abdomen pelvis and stool for C. difficile and regular cultures, urinalysis was positive for UTI with 6-10 white cells per high-powered field. C. difficile was negative BNP was 240. COVID testing influenza testing are both negative troponin was negative lipase was 12. Liver function testing was normal metabolic panel showed blood sugar 190. INR is 1.1. White blood count was 8.9 with a normal hemoglobin hematocrit. CT scan of the abdomen pelvis showed acute diverticulitis but was negative for any perforation or abscess. Her chest x-ray showed patchy opacities which are consistent with pneumonitis. The patient received Zofran for her nausea felt improved. Her heart rate initially was in the 40s. It increased to 53 without any interventions. Long conversation was held with her and her family concerning antibiotic treatment it was opted at this time that she would be treated with 1 antibiotic Levaquin for both UTI and the pneumonitis she thinks she developed a rash with this and will be pretreated with Benadryl 50 mg intravenously. She will be admitted for further treatment and evaluation. To note patient has 30 allergies listed. Most of them she is unsure what her reaction to them are. She reports she feels sick all the time. She thinks she had a temperature yesterday. She reports her temperature is normally 97.6 but yesterday it was 98.2. She denies having bloody or mucus in her stools. She does not report any worsening shortness of breath. 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 Upon evaluation she was very drowsy. She had just received Benadryl. Past Medical History History reviewed. No pertinent past medical history. Surgical History History reviewed. No pertinent surgical history. Social History She reports that she quit smoking about 52 years ago. Her smoking use included cigarettes. She started smoking about 60 years ago. She has a 3.5 pack-year smoking history. She has never been exposed to tobacco smoke. She has never used smokeless tobacco. She reports that she does not drink alcohol and does not use drugs. Family History No family history on file. Allergies Amlodipine, Amoxicillin, Amoxicillin-pot clavulanate, Carvedilol, Ciprofloxacin, Clarithromycin, Clonidine, Codeine, Dicyclomine, Diltiazem hcl, Doxycycline, Doxylamine, Duloxetine, Guaifenesin, Guaifenesin-sodium citrate, Hydrocodone-acetaminophen, Iopromide, Levofloxacin, Losartan, Lovastatin, Meloxicam, Metronidazole, Morphine, Nifedipine, Rosuvastatin, Sulfabenzamide, Valsartan, Adhesive, Adhesive tape-silicones, and Sulfa (sulfonamide antibiotics) Review of Systems 10 systems reviewed and are negative except for above-mentioned Physical Exam Constitutional: General: She is not in acute distress. Appearance: She is obese. She is not toxic-appearing. HENT: Head: Normocephalic and atraumatic. Mouth: Mucous membranes are moist. Pharynx: Oropharynx is clear. Eyes: Extraocular Movements: Extraocular movements intact. Conjunctiva/sclera: Conjunctivae normal. Pupils: Pupils are equal, round, and reactive to light. Cardiovascular: Rate and Rhythm: Bradycardia present. Pulses: Normal pulses. Heart sounds: No murmur heard. Pulmonary: Effort: Pulmonary effort is normal. Breath sounds: Normal breath sounds. No wheezing. Abdominal: General: Abdomen is protuberant. Bowel sounds are increased. There is no distension. Palpations: There is no hepatomegaly or splenomegaly. Tenderness: There is generalized abdominal tenderness. There is no right CVA tenderness, left CVA tenderness, guarding or rebound. Hernia: No hernia is present. Musculoskeletal: General: Normal range of motion. Cervical back: Normal range of motion and neck supple. No rigidity or tenderness. Right lower leg: No edema. Left lower leg: No edema. Skin: General: Skin is warm and dry. Capillary Refill: Capillary refill takes less than 2 seconds. Neurological: General: No focal deficit present. Mental Status: She is alert and oriented to person, place, and time. Sensory: Sensation is intact. Motor: Motor function is intact. No weakness or tremor. Coordination: Coordination is intact. Comments: NIH scale of 0 Psychiatric: Mood and Affect: Mood normal. Behavior: Behavior normal. Last Recorded Vitals Blood pressure 143/64, pulse 55, temperature 36.4 C (97.6 F), temperature source Temporal, resp. rate 18, height 1.524 m (5'), weight 84.4 kg (186 lb), SpO2 96%. Relevant Results Results for orders placed or performed during the hospital encounter of 03/15/24 (from the past 24 hours) ECG 12 lead Result Value Ref Range Ventricular Rate 43 BPM Atrial Rate 43 BPM IL Interval 134 ms QRS Duration 84 ms QT Interval 500 ms QTC Calculation(Bazett) 422 ms P Murray 0 degrees R Murray -5 degrees T Murray 7 degrees QRS Count 7 beats Q Onset 215 ms P Onset 148 ms P Offset 206 ms T Offset 465 ms QTC Fredericia 447 ms CBC and Auto Differential Result Value Ref Range WBC 8.9 4.4 - 11.3 x10*3/uL nRBC 0.0 0.0 - 0.0 /100 WBCs RBC 4.52 4.00 - 5.20 x10*6/uL Hemoglobin 13.2 12.0 - 16.0 g/dL Hematocrit 41.1 36.0 - 46.0 % MCV 91 80 - 100 fL MCH 29.2 26.0 - 34.0 pg MCHC 32.1 32.0 - 36.0 g/dL RDW 13.4 11.5 - 14.5 % Platelets 285 150 - 450 x10*3/uL Neutrophils % 65.6 40.0 - 80.0 % Immature Granulocytes %, Automated 0.2 0.0 - 0.9 % Lymphocytes % 19.9 13.0 - 44.0 % Monocytes % 11.3 2.0 - 10.0 % Eosinophils % 2.5 0.0 - 6.0 % Basophils % 0.5 0.0 - 2.0 % Neutrophils Absolute 5.82 (H) 1.60 - 5.50 x10*3/uL Immature Granulocytes Absolute, Automated 0.02 0.00 - 0.50 x10*3/uL Lymphocytes Absolute 1.76 0.80 - 3.00 x10*3/uL Monocytes Absolute 1.00 (H) 0.05 - 0.80 x10*3/uL Eosinophils Absolute 0.22 0.00 - 0.40 x10*3/uL Basophils Absolute 0.04 0.00 - 0.10 x10*3/uL Basic metabolic panel Result Value Ref Range Glucose 190 (H) 74 - 99 mg/dL Sodium 139 136 - 145 mmol/L Potassium 4.3 3.5 - 5.3 mmol/L Chloride 105 98 - 107 mmol/L Bicarbonate 26 21 - 32 mmol/L Anion Gap 12 10 - 20 mmol/L Urea Nitrogen 22 6 - 23 mg/dL Creatinine 0.58 0.50 - 1.05 mg/dL eGFR >90 >60 mL/min/1.73m*2 Calcium 9.3 8.6 - 10.3 mg/dL Lipase Result Value Ref Range Lipase 12 9 - 82 U/L Hepatic function panel Result Value Ref Range Albumin 3.9 3.4 - 5.0 g/dL Bilirubin, Total 0.5 0.0 - 1.2 mg/dL Bilirubin, Direct 0.0 0.0 - 0.3 mg/dL Alkaline Phosphatase 56 33 - 136 U/L ALT 8 7 - 45 U/L AST 13 9 - 39 U/L Total Protein 6.3 (L) 6.4 - 8.2 g/dL B-Type Natriuretic Peptide Result Value Ref Range BNP 240 (H) 0 - 99 pg/mL Protime-INR Result Value Ref Range Protime 13.0 (H) 9.8 - 12.8 seconds INR 1.1 0.9 - 1.1 APTT Result Value Ref Range aPTT 29 27 - 38 seconds Troponin I, High Sensitivity, Initial Result Value Ref Range Troponin I, High Sensitivity 3 0 - 13 ng/L Sars-CoV-2 PCR Result Value Ref Range Coronavirus 2019, PCR Not Detected Not Detected Influenza A, and B PCR Result Value Ref Range Flu A Result Not Detected Not Detected Flu B Result Not Detected Not Detected Keith Top Result Value Ref Range Extra Tube Hold for add-ons. C. difficile, PCR Specimen: Stool Result Value Ref Range C. difficile, PCR Not Detected Not Detected Troponin, High Sensitivity, 1 Hour Result Value Ref Range Troponin I, High Sensitivity 3 0 - 13 ng/L Urinalysis with Reflex Culture and Microscopic Result Value Ref Range Color, Urine Light-Yellow Light-Yellow, Yellow, Dark-Yellow Appearance, Urine Clear Clear Specific [place], Urine 1.015 1.005 - 1.035 pH, Urine 6.5 5.0, 5.5, 6.0, 6.5, 7.0, 7.5, 8.0 Protein, Urine NEGATIVE NEGATIVE, 10 (TRACE), 20 (TRACE) mg/dL Glucose, Urine Normal Normal mg/dL Blood, Urine NEGATIVE NEGATIVE Ketones, Urine NEGATIVE NEGATIVE mg/dL Bilirubin, Urine NEGATIVE NEGATIVE Urobilinogen, Urine Normal Normal mg/dL Nitrite, Urine NEGATIVE NEGATIVE Leukocyte Esterase, Urine 250 Sarah/ L (A) NEGATIVE Microscopic Only, Urine Result Value Ref Range WBC, Urine 6-10 (A) 1-5, NONE /HPF RBC, Urine 1-2 NONE, 1-2, 3-5 /HPF Squamous Epithelial Cells, Urine 1-9 (SPARSE) Reference range not established. /HPF Bacteria, Urine 1+ (A) NONE SEEN /HPF Mucus, Urine FEW Reference range not established. /LPF Amorphous Crystals, Urine 1+ NONE, 1+, 2+ /HPF Whitney Chong is a 78 y.o. female presenting diagnosis is post defecation syncope vasovagal reaction syncope near syncope. Chest x-ray showed patchy opacities in the lung bases right greater than the left. CT abdomen and pelvis show mild acute diverticulitis. Patient admitted for further evaluation and treatment. Assessment/Plan Assessment & Plan Syncope, unspecified syncope type -Post defecation syncopal vasovagal reaction -Will check orthostats -Patient received fluids in the emergency department. Will encourage p.o. intake. Bradycardia -Telemetry -Will hold metoprolol Mild diverticulitis -Patient without fever or abdominal pain. -C. difficile negative, no fever or leukocytosis Pneumonia -Will give IV Levaquin as symptoms improve will transition to oral -Check urine antigens for strep and Legionella -Will give as needed order for Benadryl since patient has over 30 reported allergies Asthma, ILD/EMY on CPAP -Continue CPAP therapy for EMY. APAP from 5-15 cwp to 10-14 cwp since P95 12.4 cwp. Changed auto ramp to ramp x 15 min and set up EPR.. Continue APAP 10-14 cwp. 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 -No meds currently DVT prophylaxis Lovenox and SCDs Disposition 24 to 48 hours medically stable EDEN Mathur [facility] Work Phone: 03-15-2024 History and physical note History Of Present Illness Whitney Chong is a 78 y.o. female presenting diagnosis is post defecation syncope vasovagal medication reaction syncope near syncope. Normal saline bolus of 1 L was given. Labs as well as CT scan of the abdomen pelvis and stool for C. difficile and regular cultures, urinalysis was positive for UTI with 6-10 white cells per high-powered field. C. difficile was negative BNP was 240. COVID testing influenza testing are both negative troponin was negative lipase was 12. Liver function testing was normal metabolic panel showed blood sugar 190. INR is 1.1. White blood count was 8.9 with a normal hemoglobin hematocrit. CT scan of the abdomen pelvis showed acute diverticulitis but was negative for any perforation or abscess. Her chest x-ray showed patchy opacities which are consistent with pneumonitis. The patient received Zofran for her nausea felt improved. Her heart rate initially was in the 40s. It increased to 53 without any interventions. Long conversation was held with her and her family concerning antibiotic treatment it was opted at this time that she would be treated with 1 antibiotic Levaquin for both UTI and the pneumonitis she thinks she developed a rash with this and will be pretreated with Benadryl 50 mg intravenously. She will be admitted for further treatment and evaluation. To note patient has 30 allergies listed. Most of them she is unsure what her reaction to them are. She reports she feels sick all the time. She thinks she had a temperature yesterday. She reports her temperature is normally 97.6 but yesterday it was 98.2. She denies having bloody or mucus in her stools. She does not report any worsening shortness of breath. 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 Upon evaluation she was very drowsy. She had just received Benadryl. Past Medical History History reviewed. No pertinent past medical history. Surgical History History reviewed. No pertinent surgical history. Social History She reports that she quit smoking about 52 years ago. Her smoking use included cigarettes. She started smoking about 60 years ago. She has a 3.5 pack-year smoking history. She has never been exposed to tobacco smoke. She has never used smokeless tobacco. She reports that she does not drink alcohol and does not use drugs. Family History No family history on file. Allergies Amlodipine, Amoxicillin, Amoxicillin-pot clavulanate, Carvedilol, Ciprofloxacin, Clarithromycin, Clonidine, Codeine, Dicyclomine, Diltiazem hcl, Doxycycline, Doxylamine, Duloxetine, Guaifenesin, Guaifenesin-sodium citrate, Hydrocodone-acetaminophen, Iopromide, Levofloxacin, Losartan, Lovastatin, Meloxicam, Metronidazole, Morphine, Nifedipine, Rosuvastatin, Sulfabenzamide, Valsartan, Adhesive, Adhesive tape-silicones, and Sulfa (sulfonamide antibiotics) Review of Systems 10 systems reviewed and are negative except for above-mentioned Physical Exam Constitutional: General: She is not in acute distress. Appearance: She is obese. She is not toxic-appearing. HENT: Head: Normocephalic and atraumatic. Mouth: Mucous membranes are moist. Pharynx: Oropharynx is clear. Eyes: Extraocular Movements: Extraocular movements intact. Conjunctiva/sclera: Conjunctivae normal. Pupils: Pupils are equal, round, and reactive to light. Cardiovascular: Rate and Rhythm: Bradycardia present. Pulses: Normal pulses. Heart sounds: No murmur heard. Pulmonary: Effort: Pulmonary effort is normal. Breath sounds: Normal breath sounds. No wheezing. Abdominal: General: Abdomen is protuberant. Bowel sounds are increased. There is no distension. Palpations: There is no hepatomegaly or splenomegaly. Tenderness: There is generalized abdominal tenderness. There is no right CVA tenderness, left CVA tenderness, guarding or rebound. Hernia: No hernia is present. Musculoskeletal: General: Normal range of motion. Cervical back: Normal range of motion and neck supple. No rigidity or tenderness. Right lower leg: No edema. Left lower leg: No edema. Skin: General: Skin is warm and dry. Capillary Refill: Capillary refill takes less than 2 seconds. Neurological: General: No focal deficit present. Mental Status: She is alert and oriented to person, place, and time. Sensory: Sensation is intact. Motor: Motor function is intact. No weakness or tremor. Coordination: Coordination is intact. Comments: NIH scale of 0 Psychiatric: Mood and Affect: Mood normal. Behavior: Behavior normal. Last Recorded Vitals Blood pressure 143/64, pulse 55, temperature 36.4 C (97.6 F), temperature source Temporal, resp. rate 18, height 1.524 m (5'), weight 84.4 kg (186 lb), SpO2 96%. Relevant Results Results for orders placed or performed during the hospital encounter of 03/15/24 (from the past 24 hours) ECG 12 lead Result Value Ref Range Ventricular Rate 43 BPM Atrial Rate 43 BPM [place] Interval 134 ms QRS Duration 84 ms QT Interval 500 ms QTC Calculation(Bazett) 422 ms P Murray 0 degrees R Murray -5 degrees T Murray 7 degrees QRS Count 7 beats Q Onset 215 ms P Onset 148 ms P Offset 206 ms T Offset 465 ms QTC Fredericia 447 ms CBC and Auto Differential Result Value Ref Range WBC 8.9 4.4 - 11.3 x10*3/uL nRBC 0.0 0.0 - 0.0 /100 WBCs RBC 4.52 4.00 - 5.20 x10*6/uL Hemoglobin 13.2 12.0 - 16.0 g/dL Hematocrit 41.1 36.0 - 46.0 % MCV 91 80 - 100 fL MCH 29.2 26.0 - 34.0 pg MCHC 32.1 32.0 - 36.0 g/dL RDW 13.4 11.5 - 14.5 % Platelets 285 150 - 450 x10*3/uL Neutrophils % 65.6 40.0 - 80.0 % Immature Granulocytes %, Automated 0.2 0.0 - 0.9 % Lymphocytes % 19.9 13.0 - 44.0 % Monocytes % 11.3 2.0 - 10.0 % Eosinophils % 2.5 0.0 - 6.0 % Basophils % 0.5 0.0 - 2.0 % Neutrophils Absolute 5.82 (H) 1.60 - 5.50 x10*3/uL Immature Granulocytes Absolute, Automated 0.02 0.00 - 0.50 x10*3/uL Lymphocytes Absolute 1.76 0.80 - 3.00 x10*3/uL Monocytes Absolute 1.00 (H) 0.05 - 0.80 x10*3/uL Eosinophils Absolute 0.22 0.00 - 0.40 x10*3/uL Basophils Absolute 0.04 0.00 - 0.10 x10*3/uL Basic metabolic panel Result Value Ref Range Glucose 190 (H) 74 - 99 mg/dL Sodium 139 136 - 145 mmol/L Potassium 4.3 3.5 - 5.3 mmol/L Chloride 105 98 - 107 mmol/L Bicarbonate 26 21 - 32 mmol/L Anion Gap 12 10 - 20 mmol/L Urea Nitrogen 22 6 - 23 mg/dL Creatinine 0.58 0.50 - 1.05 mg/dL eGFR >90 >60 mL/min/1.73m*2 Calcium 9.3 8.6 - 10.3 mg/dL Lipase Result Value Ref Range Lipase 12 9 - 82 U/L Hepatic function panel Result Value Ref Range Albumin 3.9 3.4 - 5.0 g/dL Bilirubin, Total 0.5 0.0 - 1.2 mg/dL Bilirubin, Direct 0.0 0.0 - 0.3 mg/dL Alkaline Phosphatase 56 33 - 136 U/L ALT 8 7 - 45 U/L AST 13 9 - 39 U/L Total Protein 6.3 (L) 6.4 - 8.2 g/dL B-Type Natriuretic Peptide Result Value Ref Range BNP 240 (H) 0 - 99 pg/mL Protime-INR Result Value Ref Range Protime 13.0 (H) 9.8 - 12.8 seconds INR 1.1 0.9 - 1.1 APTT Result Value Ref Range aPTT 29 27 - 38 seconds Troponin I, High Sensitivity, Initial Result Value Ref Range Troponin I, High Sensitivity 3 0 - 13 ng/L Sars-CoV-2 PCR Result Value Ref Range Coronavirus 2019, PCR Not Detected Not Detected Influenza A, and B PCR Result Value Ref Range Flu A Result Not Detected Not Detected Flu B Result Not Detected Not Detected Keith Top Result Value Ref Range Extra Tube Hold for add-ons. C. difficile, PCR Specimen: Stool Result Value Ref Range C. difficile, PCR Not Detected Not Detected Troponin, High Sensitivity, 1 Hour Result Value Ref Range Troponin I, High Sensitivity 3 0 - 13 ng/L Urinalysis with Reflex Culture and Microscopic Result Value Ref Range Color, Urine Light-Yellow Light-Yellow, Yellow, Dark-Yellow Appearance, Urine Clear Clear Specific [place], Urine 1.015 1.005 - 1.035 pH, Urine 6.5 5.0, 5.5, 6.0, 6.5, 7.0, 7.5, 8.0 Protein, Urine NEGATIVE NEGATIVE, 10 (TRACE), 20 (TRACE) mg/dL Glucose, Urine Normal Normal mg/dL Blood, Urine NEGATIVE NEGATIVE Ketones, Urine NEGATIVE NEGATIVE mg/dL Bilirubin, Urine NEGATIVE NEGATIVE Urobilinogen, Urine Normal Normal mg/dL Nitrite, Urine NEGATIVE NEGATIVE Leukocyte Esterase, Urine 250 Sarah/ L (A) NEGATIVE Microscopic Only, Urine Result Value Ref Range WBC, Urine 6-10 (A) 1-5, NONE /HPF RBC, Urine 1-2 NONE, 1-2, 3-5 /HPF Squamous Epithelial Cells, Urine 1-9 (SPARSE) Reference range not established. /HPF Bacteria, Urine 1+ (A) NONE SEEN /HPF Mucus, Urine FEW Reference range not established. /LPF Amorphous Crystals, Urine 1+ NONE, 1+, 2+ /HPF Whitney Chong is a 78 y.o. female presenting diagnosis is post defecation syncope vasovagal reaction syncope near syncope. Chest x-ray showed patchy opacities in the lung bases right greater than the left. CT abdomen and pelvis show mild acute diverticulitis. Patient admitted for further evaluation and treatment. Assessment/Plan Assessment & Plan Syncope, unspecified syncope type -Post defecation syncopal vasovagal reaction -Will check orthostats -Patient received fluids in the emergency department. Will encourage p.o. intake. Bradycardia -Telemetry -Will hold metoprolol Mild diverticulitis -Patient without fever or abdominal pain. -C. difficile negative, no fever or leukocytosis Pneumonia -Will give IV Levaquin as symptoms improve will transition to oral -Check urine antigens for strep and Legionella -Will give as needed order for Benadryl since patient has over 30 reported allergies Asthma, ILD/EMY on CPAP -Continue CPAP therapy for EMY. APAP from 5-15 cwp to 10-14 cwp since P95 12.4 cwp. Changed auto ramp to ramp x 15 min and set up EPR.. Continue APAP 10-14 cwp. 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 -No meds currently DVT prophylaxis Lovenox and SCDs Disposition 24 to 48 hours medically stable EDEN Mathur documented in this encounter [facility] Work Phone: 03-15-2024 Emergency department Note Associated Order(s): Critical Care Chief Complaint: PASSED OUT This is an 78-year-old female who apparently has had some stomach cramping some nausea with diarrhea today. She she was on the toilet after having a extensive bowel movement and stood up got lightheaded and dizzy and had brief syncopal episode which her son caught her before she fell. She is normally on metoprolol and has a low heart rate to begin with. She denies any fever or chills denies any chest pains palpitations apparently she was incontinent of stool also. Paramedics that she was somewhat delirious when they first got there approved by time she arrived here to the emergency department in addition to she has been on antibiotics for diverticulitis for period of time also Review of Systems Constitutional: Positive for fatigue. Negative for chills and fever. HENT: Negative. Eyes: Negative for photophobia and visual disturbance. Respiratory: Negative for choking and shortness of breath. Cardiovascular: Negative for chest pain and palpitations. Gastrointestinal: Positive for abdominal pain, diarrhea and nausea. Negative for blood in stool. Genitourinary: Negative for dysuria and frequency. Musculoskeletal: Negative for arthralgias, back pain, neck pain and neck stiffness. Skin: Negative for rash. Neurological: Positive for syncope and weakness. Negative for dizziness and light-headedness. Hematological: Negative. Psychiatric/Behavioral: Negative. All other systems reviewed and are negative. Physical Exam Vitals and nursing note reviewed. Constitutional: General: She is not in acute distress. Appearance: She is obese. She is not toxic-appearing. HENT: Head: Normocephalic and atraumatic. Nose: No congestion. Mouth/Throat: Mouth: Mucous membranes are moist. Pharynx: Oropharynx is clear. Eyes: Extraocular Movements: Extraocular movements intact. Conjunctiva/sclera: Conjunctivae normal. Pupils: Pupils are equal, round, and reactive to light. Cardiovascular: Rate and Rhythm: Bradycardia present. Pulses: Normal pulses. Heart sounds: No murmur heard. Pulmonary: Effort: Pulmonary effort is normal. Breath sounds: Normal breath sounds. No wheezing. Abdominal: General: Abdomen is protuberant. Bowel sounds are increased. There is no distension. Palpations: There is no hepatomegaly or splenomegaly. Tenderness: There is generalized abdominal tenderness. There is no right CVA tenderness, left CVA tenderness, guarding or rebound. Hernia: No hernia is present. Musculoskeletal: General: Normal range of motion. Cervical back: Normal range of motion and neck supple. No rigidity or tenderness. Right lower leg: No edema. Left lower leg: No edema. Skin: General: Skin is warm and dry. Capillary Refill: Capillary refill takes less than 2 seconds. Neurological: General: No focal deficit present. Mental Status: She is alert and oriented to person, place, and time. GCS: GCS eye subscore is 4. GCS verbal subscore is 5. GCS motor subscore is 6. Cranial Nerves: Cranial nerves 2-12 are intact. No cranial nerve deficit or dysarthria. Sensory: Sensation is intact. Motor: Motor function is intact. No weakness or tremor. Coordination: Coordination is intact. Comments: NIH scale of 0 Psychiatric: Mood and Affect: Mood normal. Behavior: Behavior normal. Labs Reviewed CBC WITH AUTO DIFFERENTIAL - Abnormal Result Value WBC 8.9 nRBC 0.0 RBC 4.52 Hemoglobin 13.2 Hematocrit 41.1 MCV 91 MCH 29.2 MCHC 32.1 RDW 13.4 Platelets 285 Neutrophils % 65.6 Immature Granulocytes %, Automated 0.2 Lymphocytes % 19.9 Monocytes % 11.3 Eosinophils % 2.5 Basophils % 0.5 Neutrophils Absolute 5.82 (*) Immature Granulocytes Absolute, Automated 0.02 Lymphocytes Absolute 1.76 Monocytes Absolute 1.00 (*) Eosinophils Absolute 0.22 Basophils Absolute 0.04 BASIC METABOLIC PANEL - Abnormal Glucose 190 (*) Sodium 139 Potassium 4.3 Chloride 105 Bicarbonate 26 Anion Gap 12 Urea Nitrogen 22 Creatinine 0.58 eGFR >90 Calcium 9.3 HEPATIC FUNCTION PANEL - Abnormal Albumin 3.9 Bilirubin, Total 0.5 Bilirubin, Direct 0.0 Alkaline Phosphatase 56 ALT 8 AST 13 Total Protein 6.3 (*) B-TYPE NATRIURETIC PEPTIDE - Abnormal BNP 240 (*) Narrative: <100 pg/mL - Heart failure unlikely 100-299 pg/mL - Intermediate probability of acute heart failure exacerbation. Correlate with clinical context and patient history. >=300 pg/mL - Heart Failure likely. Correlate with clinical context and patient history. BNP testing is performed using different testing methodology at [facility] than at other [facility]. Direct result comparisons should only be made within the same method. PROTIME-INR - Abnormal Protime 13.0 (*) INR 1.1 URINALYSIS WITH REFLEX CULTURE AND MICROSCOPIC - Abnormal Color, Urine Light-Yellow Appearance, Urine Clear Specific [place], Urine 1.015 pH, Urine 6.5 Protein, Urine NEGATIVE Glucose, Urine Normal Blood, Urine NEGATIVE Ketones, Urine NEGATIVE Bilirubin, Urine NEGATIVE Urobilinogen, Urine Normal Nitrite, Urine NEGATIVE Leukocyte Esterase, Urine 250 Sarah/ L (*) MICROSCOPIC ONLY, URINE - Abnormal WBC, Urine 6-10 (*) RBC, Urine 1-2 Squamous Epithelial Cells, Urine 1-9 (SPARSE) Bacteria, Urine 1+ (*) Mucus, Urine FEW Amorphous Crystals, Urine 1+ C. DIFFICILE, PCR - Normal C. difficile, PCR Not Detected Narrative: This test is an FDA-cleared real-time PCR assay for detection of toxigenic C. difficile DNA from unprocessed liquid or unformed stool specimens that have not undergone nucleic acid extraction in symptomatic patients with potential C. difficile infection (CDI). A positive result may indicate colonization, and clinical assessment is required for the diagnosis of CDI. This test cannot be performed on formed stools or used as a test of cure, and should not be performed more than once per 7 days. LIPASE - Normal Lipase 12 Narrative: Venipuncture immediately after or during the administration of Metamizole may lead to falsely low results. Testing should be performed immediately prior to Metamizole dosing. APTT - Normal aPTT 29 Narrative: The APTT is no longer used for monitoring Unfractionated Heparin Therapy. For monitoring Heparin Therapy, use the Heparin Assay. SERIAL TROPONIN-INITIAL - Normal Troponin I, High Sensitivity 3 Narrative: Less than 99th percentile of normal range cutoff- Female and children under 18 years old <14 ng/L; Male <21 ng/L: Negative Repeat testing should be performed if clinically indicated. Female and children under 18 years old 14-50 ng/L; Male 21-50 ng/L: Consistent with possible cardiac damage and possible increased clinical risk. Serial measurements may help to assess extent of myocardial damage. >50 ng/L: Consistent with cardiac damage, increased clinical risk and myocardial infarction. Serial measurements may help assess extent of myocardial damage. NOTE: Children less than 1 year old may have higher baseline troponin levels and results should be interpreted in conjunction with the overall clinical context. NOTE: Troponin I testing is performed using a different testing methodology at [facility] than at [facility]. Direct result comparisons should only be made within the same method. SARS-COV-2 PCR - Normal Coronavirus 2019, PCR Not Detected Narrative: This assay has received FDA Emergency Use Authorization (EUA) and is only authorized for the duration of time that circumstances exist to justify the authorization of the emergency use of in vitro diagnostic tests for the detection of SARS-CoV-2 virus and/or diagnosis of COVID-19 infection under section 564(b)(1) of the Act, 21 U.S.C. 360bbb-3(b)(1). This assay is an in vitro diagnostic nucleic acid amplification test for the qualitative detection of SARS-CoV-2 from nasopharyngeal specimens and has been validated for use at [facility]. Negative results do not preclude COVID-19 infections and should not be used as the sole basis for diagnosis, treatment, or other management decisions. INFLUENZA A AND B PCR - Normal Flu A Result Not Detected Flu B Result Not Detected Narrative: This assay is an in vitro diagnostic multiplex nucleic acid amplification test for the detection and discrimination of Influenza A & B from nasopharyngeal specimens, and has been validated for use at [facility]. Negative results do not preclude Influenza A/B infections, and should not be used as the sole basis for diagnosis, treatment, or other management decisions. If Influenza A/B and RSV PCR results are negative, testing for Parainfluenza virus, Adenovirus and Metapneumovirus is routinely performed for [facility] pediatric oncology and intensive care inpatients, and is available on other patients by placing an add-on request. SERIAL TROPONIN, 1 HOUR - Normal Troponin I, High Sensitivity 3 Narrative: Less than 99th percentile of normal range cutoff- Female and children under 18 years old <14 ng/L; Male <21 ng/L: Negative Repeat testing should be performed if clinically indicated. Female and children under 18 years old 14-50 ng/L; Male 21-50 ng/L: Consistent with possible cardiac damage and possible increased clinical risk. Serial measurements may help to assess extent of myocardial damage. >50 ng/L: Consistent with cardiac damage, increased clinical risk and myocardial infarction. Serial measurements may help assess extent of myocardial damage. NOTE: Children less than 1 year old may have higher baseline troponin levels and results should be interpreted in conjunction with the overall clinical context. NOTE: Troponin I testing is performed using a different testing methodology at [facility] than at other [facility]. Direct result comparisons should only be made within the same method. URINE CULTURE STOOL PATHOGEN PANEL, PCR URINE CULTURE TROPONIN SERIES- (INITIAL, 1 HR) Narrative: The following orders were created for panel order Troponin I Series, High Sensitivity (0, 1 HR). Procedure Abnormality Status --------- ------ Troponin I, High Sensiti...[[id number]] Normal Final result Troponin, High Sensitivi...[[id number]] Normal Final result Please view results for these tests on the individual orders. KEITH TOP Extra Tube Hold for add-ons. URINALYSIS WITH REFLEX CULTURE AND MICROSCOPIC Narrative: The following orders were created for panel order Urinalysis with Reflex Culture and Microscopic. Procedure Abnormality Status --------- ------ Urinalysis with Reflex C...[[id number]] Abnormal Final result Extra Urine Keith Tube[[id number]] In process Please view results for these tests on the individual orders. EXTRA URINE KEITH TUBE CT abdomen pelvis wo IV contrast Final Result Mild acute diverticulitis distal descending colon left lower quadrant. Negative for perforation or abscess. Normal appendix. Signed by Luis Crook MD XR chest 1 view Final Result Peripheral patchy opacities in the lung bases right greater than left, new compared to remote prior from 12/24/2022. Correlate clinically for pneumonia. Signed by Jordan Modi MD Critical Care Performed by: Rocael Correa MD Authorized by: Rocael Correa MD Critical care provider statement: Critical care time (minutes): 32 Critical care was necessary to treat or prevent imminent or life-threatening deterioration of the following conditions: She had bradycardia with syncope. Critical care was time spent personally by me on the following activities: Blood draw for specimens, development of treatment plan with patient or surrogate, discussions with primary provider, evaluation of patient's response to treatment, examination of patient, obtaining history from patient or surrogate, ordering and performing treatments and interventions, ordering and review of laboratory studies, ordering and review of radiographic studies, pulse oximetry and re-evaluation of patient's condition Medical Decision Making Diagnosis is post defecation syncope vasovagal medication reaction syncope near syncope. Normal saline bolus of 1 L was ordered as well as IV Hep-Lock cardiac monitoring pulse oximeter readings complete labs as well as CT scan of the abdomen pelvis and stool for C. difficile and regular cultures, urinalysis was positive for UTI with 6-10 white cells per high-powered field. C. difficile was negative BNP was 240. COVID testing influenza testing are both negative troponin was negative lipase was 12. Liver function testing was normal metabolic panel showed blood sugar 190. INR is 1.1. White blood count was 8.9 with a normal hemoglobin hematocrit. CT scan of the abdomen pelvis showed acute diverticulitis but was negative for any perforation or abscess. Her chest x-ray showed patchy opacities which are consistent with pneumonitis. Patient received normal saline 1 L bolus. She also received Zofran for her nausea felt improved she developed no arrhythmia her initial heart rate was in the 40s but was up to 53 without any specific treatment. Long conversation was held with her and her family concerning antibiotic treatment it was opted at this time that she would be treated with 1 antibiotic Levaquin for both UTI and the pneumonitis she thinks she developed a rash with this and will be pretreated with Benadryl 50 mg intravenously. She will be admitted for further treatment and evaluation Amount and/or Complexity of Data Reviewed ECG/medicine tests: independent interpretation performed. Details: Lead EKG showed sinus rhythm at approximately 43/min but no acute ST segment elevation or depressions at this time Diagnoses as of 03/15/24 1511 Syncope, unspecified syncope type Pneumonitis Diverticulitis Bradycardia Rocael Correa MD 03/15/24 1511 documented in this encounter [facility] Work Phone: 03-15-2024 Physician Emergency department Note Associated Order(s): Critical Care Chief Complaint: PASSED OUT This is an 78-year-old female who apparently has had some stomach cramping some nausea with diarrhea today. She she was on the toilet after having a extensive bowel movement and stood up got lightheaded and dizzy and had brief syncopal episode which her son caught her before she fell. She is normally on metoprolol and has a low heart rate to begin with. She denies any fever or chills denies any chest pains palpitations apparently she was incontinent of stool also. Paramedics that she was somewhat delirious when they first got there approved by time she arrived here to the emergency department in addition to she has been on antibiotics for diverticulitis for period of time also Review of Systems Constitutional: Positive for fatigue. Negative for chills and fever. HENT: Negative. Eyes: Negative for photophobia and visual disturbance. Respiratory: Negative for choking and shortness of breath. Cardiovascular: Negative for chest pain and palpitations. Gastrointestinal: Positive for abdominal pain, diarrhea and nausea. Negative for blood in stool. Genitourinary: Negative for dysuria and frequency. Musculoskeletal: Negative for arthralgias, back pain, neck pain and neck stiffness. Skin: Negative for rash. Neurological: Positive for syncope and weakness. Negative for dizziness and light-headedness. Hematological: Negative. Psychiatric/Behavioral: Negative. All other systems reviewed and are negative. Physical Exam Vitals and nursing note reviewed. Constitutional: General: She is not in acute distress. Appearance: She is obese. She is not toxic-appearing. HENT: Head: Normocephalic and atraumatic. Nose: No congestion. Mouth/Throat: Mouth: Mucous membranes are moist. Pharynx: Oropharynx is clear. Eyes: Extraocular Movements: Extraocular movements intact. Conjunctiva/sclera: Conjunctivae normal. Pupils: Pupils are equal, round, and reactive to light. Cardiovascular: Rate and Rhythm: Bradycardia present. Pulses: Normal pulses. Heart sounds: No murmur heard. Pulmonary: Effort: Pulmonary effort is normal. Breath sounds: Normal breath sounds. No wheezing. Abdominal: General: Abdomen is protuberant. Bowel sounds are increased. There is no distension. Palpations: There is no hepatomegaly or splenomegaly. Tenderness: There is generalized abdominal tenderness. There is no right CVA tenderness, left CVA tenderness, guarding or rebound. Hernia: No hernia is present. Musculoskeletal: General: Normal range of motion. Cervical back: Normal range of motion and neck supple. No rigidity or tenderness. Right lower leg: No edema. Left lower leg: No edema. Skin: General: Skin is warm and dry. Capillary Refill: Capillary refill takes less than 2 seconds. Neurological: General: No focal deficit present. Mental Status: She is alert and oriented to person, place, and time. GCS: GCS eye subscore is 4. GCS verbal subscore is 5. GCS motor subscore is 6. Cranial Nerves: Cranial nerves 2-12 are intact. No cranial nerve deficit or dysarthria. Sensory: Sensation is intact. Motor: Motor function is intact. No weakness or tremor. Coordination: Coordination is intact. Comments: NIH scale of 0 Psychiatric: Mood and Affect: Mood normal. Behavior: Behavior normal. Labs Reviewed CBC WITH AUTO DIFFERENTIAL - Abnormal Result Value WBC 8.9 nRBC 0.0 RBC 4.52 Hemoglobin 13.2 Hematocrit 41.1 MCV 91 MCH 29.2 MCHC 32.1 RDW 13.4 Platelets 285 Neutrophils % 65.6 Immature Granulocytes %, Automated 0.2 Lymphocytes % 19.9 Monocytes % 11.3 Eosinophils % 2.5 Basophils % 0.5 Neutrophils Absolute 5.82 (*) Immature Granulocytes Absolute, Automated 0.02 Lymphocytes Absolute 1.76 Monocytes Absolute 1.00 (*) Eosinophils Absolute 0.22 Basophils Absolute 0.04 BASIC METABOLIC PANEL - Abnormal Glucose 190 (*) Sodium 139 Potassium 4.3 Chloride 105 Bicarbonate 26 Anion Gap 12 Urea Nitrogen 22 Creatinine 0.58 eGFR >90 Calcium 9.3 HEPATIC FUNCTION PANEL - Abnormal Albumin 3.9 Bilirubin, Total 0.5 Bilirubin, Direct 0.0 Alkaline Phosphatase 56 ALT 8 AST 13 Total Protein 6.3 (*) B-TYPE NATRIURETIC PEPTIDE - Abnormal BNP 240 (*) Narrative: <100 pg/mL - Heart failure unlikely 100-299 pg/mL - Intermediate probability of acute heart failure exacerbation. Correlate with clinical context and patient history. >=300 pg/mL - Heart Failure likely. Correlate with clinical context and patient history. BNP testing is performed using different testing methodology at [facility] than at other [facility]. Direct result comparisons should only be made within the same method. PROTIME-INR - Abnormal Protime 13.0 (*) INR 1.1 URINALYSIS WITH REFLEX CULTURE AND MICROSCOPIC - Abnormal Color, Urine Light-Yellow Appearance, Urine Clear Specific [place], Urine 1.015 pH, Urine 6.5 Protein, Urine NEGATIVE Glucose, Urine Normal Blood, Urine NEGATIVE Ketones, Urine NEGATIVE Bilirubin, Urine NEGATIVE Urobilinogen, Urine Normal Nitrite, Urine NEGATIVE Leukocyte Esterase, Urine 250 Sarah/ L (*) MICROSCOPIC ONLY, URINE - Abnormal WBC, Urine 6-10 (*) RBC, Urine 1-2 Squamous Epithelial Cells, Urine 1-9 (SPARSE) Bacteria, Urine 1+ (*) Mucus, Urine FEW Amorphous Crystals, Urine 1+ C. DIFFICILE, PCR - Normal C. difficile, PCR Not Detected Narrative: This test is an FDA-cleared real-time PCR assay for detection of toxigenic C. difficile DNA from unprocessed liquid or unformed stool specimens that have not undergone nucleic acid extraction in symptomatic patients with potential C. difficile infection (CDI). A positive result may indicate colonization, and clinical assessment is required for the diagnosis of CDI. This test cannot be performed on formed stools or used as a test of cure, and should not be performed more than once per 7 days. LIPASE - Normal Lipase 12 Narrative: Venipuncture immediately after or during the administration of Metamizole may lead to falsely low results. Testing should be performed immediately prior to Metamizole dosing. APTT - Normal aPTT 29 Narrative: The APTT is no longer used for monitoring Unfractionated Heparin Therapy. For monitoring Heparin Therapy, use the Heparin Assay. SERIAL TROPONIN-INITIAL - Normal Troponin I, High Sensitivity 3 Narrative: Less than 99th percentile of normal range cutoff- Female and children under 18 years old <14 ng/L; Male <21 ng/L: Negative Repeat testing should be performed if clinically indicated. Female and children under 18 years old 14-50 ng/L; Male 21-50 ng/L: Consistent with possible cardiac damage and possible increased clinical risk. Serial measurements may help to assess extent of myocardial damage. >50 ng/L: Consistent with cardiac damage, increased clinical risk and myocardial infarction. Serial measurements may help assess extent of myocardial damage. NOTE: Children less than 1 year old may have higher baseline troponin levels and results should be interpreted in conjunction with the overall clinical context. NOTE: Troponin I testing is performed using a different testing methodology at [facility] than at [facility]. Direct result comparisons should only be made within the same method. SARS-COV-2 PCR - Normal Coronavirus 2019, PCR Not Detected Narrative: This assay has received FDA Emergency Use Authorization (EUA) and is only authorized for the duration of time that circumstances exist to justify the authorization of the emergency use of in vitro diagnostic tests for the detection of SARS-CoV-2 virus and/or diagnosis of COVID-19 infection under section 564(b)(1) of the Act, 21 U.S.C. 360bbb-3(b)(1). This assay is an in vitro diagnostic nucleic acid amplification test for the qualitative detection of SARS-CoV-2 from nasopharyngeal specimens and has been validated for use at [facility]. Negative results do not preclude COVID-19 infections and should not be used as the sole basis for diagnosis, treatment, or other management decisions. INFLUENZA A AND B PCR - Normal Flu A Result Not Detected Flu B Result Not Detected Narrative: This assay is an in vitro diagnostic multiplex nucleic acid amplification test for the detection and discrimination of Influenza A & B from nasopharyngeal specimens, and has been validated for use at [facility]. Negative results do not preclude Influenza A/B infections, and should not be used as the sole basis for diagnosis, treatment, or other management decisions. If Influenza A/B and RSV PCR results are negative, testing for Parainfluenza virus, Adenovirus and Metapneumovirus is routinely performed for [facility] pediatric oncology and intensive care inpatients, and is available on other patients by placing an add-on request. SERIAL TROPONIN, 1 HOUR - Normal Troponin I, High Sensitivity 3 Narrative: Less than 99th percentile of normal range cutoff- Female and children under 18 years old <14 ng/L; Male <21 ng/L: Negative Repeat testing should be performed if clinically indicated. Female and children under 18 years old 14-50 ng/L; Male 21-50 ng/L: Consistent with possible cardiac damage and possible increased clinical risk. Serial measurements may help to assess extent of myocardial damage. >50 ng/L: Consistent with cardiac damage, increased clinical risk and myocardial infarction. Serial measurements may help assess extent of myocardial damage. NOTE: Children less than 1 year old may have higher baseline troponin levels and results should be interpreted in conjunction with the overall clinical context. NOTE: Troponin I testing is performed using a different testing methodology at [facility] than at other [facility]. Direct result comparisons should only be made within the same method. URINE CULTURE STOOL PATHOGEN PANEL, PCR URINE CULTURE TROPONIN SERIES- (INITIAL, 1 HR) Narrative: The following orders were created for panel order Troponin I Series, High Sensitivity (0, 1 HR). Procedure Abnormality Status --------- ------ Troponin I, High Sensiti...[[id number]] Normal Final result Troponin, High Sensitivi...[[id number]] Normal Final result Please view results for these tests on the individual orders. KEITH TOP Extra Tube Hold for add-ons. URINALYSIS WITH REFLEX CULTURE AND MICROSCOPIC Narrative: The following orders were created for panel order Urinalysis with Reflex Culture and Microscopic. Procedure Abnormality Status --------- ------ Urinalysis with Reflex C...[[id number]] Abnormal Final result Extra Urine Keith Tube[[id number]] In process Please view results for these tests on the individual orders. EXTRA URINE KEITH TUBE CT abdomen pelvis wo IV contrast Final Result Mild acute diverticulitis distal descending colon left lower quadrant. Negative for perforation or abscess. Normal appendix. Signed by Luis Crook MD XR chest 1 view Final Result Peripheral patchy opacities in the lung bases right greater than left, new compared to remote prior from 12/24/2022. Correlate clinically for pneumonia. Signed by Jordan Modi MD Critical Care Performed by: Rocael Correa MD Authorized by: Rocael Correa MD Critical care provider statement: Critical care time (minutes): 32 Critical care was necessary to treat or prevent imminent or life-threatening deterioration of the following conditions: She had bradycardia with syncope. Critical care was time spent personally by me on the following activities: Blood draw for specimens, development of treatment plan with patient or surrogate, discussions with primary provider, evaluation of patient's response to treatment, examination of patient, obtaining history from patient or surrogate, ordering and performing treatments and interventions, ordering and review of laboratory studies, ordering and review of radiographic studies, pulse oximetry and re-evaluation of patient's condition Medical Decision Making Diagnosis is post defecation syncope vasovagal medication reaction syncope near syncope. Normal saline bolus of 1 L was ordered as well as IV Hep-Lock cardiac monitoring pulse oximeter readings complete labs as well as CT scan of the abdomen pelvis and stool for C. difficile and regular cultures, urinalysis was positive for UTI with 6-10 white cells per high-powered field. C. difficile was negative BNP was 240. COVID testing influenza testing are both negative troponin was negative lipase was 12. Liver function testing was normal metabolic panel showed blood sugar 190. INR is 1.1. White blood count was 8.9 with a normal hemoglobin hematocrit. CT scan of the abdomen pelvis showed acute diverticulitis but was negative for any perforation or abscess. Her chest x-ray showed patchy opacities which are consistent with pneumonitis. Patient received normal saline 1 L bolus. She also received Zofran for her nausea felt improved she developed no arrhythmia her initial heart rate was in the 40s but was up to 53 without any specific treatment. Long conversation was held with her and her family concerning antibiotic treatment it was opted at this time that she would be treated with 1 antibiotic Levaquin for both UTI and the pneumonitis she thinks she developed a rash with this and will be pretreated with Benadryl 50 mg intravenously. She will be admitted for further treatment and evaluation Amount and/or Complexity of Data Reviewed ECG/medicine tests: independent interpretation performed. Details: Lead EKG showed sinus rhythm at approximately 43/min but no acute ST segment elevation or depressions at this time Diagnoses as of 03/15/24 1511 Syncope, unspecified syncope type Pneumonitis Diverticulitis Bradycardia Rocael Correa MD 03/15/24 1511 [facility] Work Phone: 03-14-2024 History of Present illness Narrative Subjective Patient ID: Arlette Ruiz is a 78 y.o. female who presents for Idiopathic Pulmonary Fibrosis (Tired, aching, drainage every morning and uses albuterol inhaler and then feels better. [place] with steps. Wears cpap nightly. ).' Asthma She complains of cough and shortness of breath. Associated symptoms include postnasal drip and rhinorrhea. Pertinent negatives include no chest pain or fever. Her past medical history is significant for asthma. Ms. Ruiz is a *1yo female with PMH of Pulmonary fibrosis and asthma presents for a second opinion. She states that she first saw black oxide operator Dr. Potter at [facility] in 2014 due to cough and was diagnosed with Idiopathic Pulmonary Fibrosis. She later started seeing Dr. Giuliano Nolasco who informed her that she did not have IPF and did work up for Histoplasmosis and HP and later bronchoscopy in 2017. She has been seeing Dr. Myriam Obrien now since Dr. Nolasco retired and she was again told to have IPF. She presents today for evaluation and management. She states that she has significant postnasal drip, intermittent cough and her SOB is primarily with strenuous activity. She is not on Home O2. She does have EMY and uses CPAP nightly through [facility]. She [place] close to the [employer] and gets significant exposure. She is here for follow up. She states she is not SOB on usual activity but more than usual or strenuous activity makes her SOB. She gets coughing spell in the morning and has occasional wheezing which is relieved with albuterol. She did not like Symbicort because she felt it caused some soreness in her throat. However, she has been good otherwise on albuteorl inhaler. She has noted worsened allergic rhinitis and sinus symptoms with every seasonal change but admits she is not taking montelukast. She takes flonase & Azelastine twice daily. She denies fever, chills, rigors, chest pain. Reports she is tired. She states that she had sinusitis but it did not turn into bronchitis. She gets antibiotics from PCP Dr. Brower and Kojo Frederick APRN. She still has sinus congestion and drainage. She reports she is not depressed but has anxiety. She did have low Vit D and is taking Vit D3 per PCP. Review of Systems Constitutional: Negative for chills, fever and unexpected weight change. HENT: Positive for postnasal drip and rhinorrhea. Respiratory: Positive for cough and shortness of breath. Cardiovascular: Negative for chest pain, palpitations and leg swelling. Gastrointestinal: As in HPI Musculoskeletal: Negative for arthralgias and gait problem. Skin: Negative for rash. All other systems reviewed and are negative. Objective Physical Exam Vitals and nursing note reviewed. Constitutional: Appearance: Normal appearance. HENT: Head: Normocephalic. Nose: Nose normal. Mouth/Throat: Pharynx: Oropharynx is clear. Eyes: Extraocular Movements: Extraocular movements intact. Conjunctiva/sclera: Conjunctivae normal. Pupils: Pupils are equal, round, and reactive to light. Cardiovascular: Rate and Rhythm: Normal rate and regular rhythm. Pulses: Normal pulses. Heart sounds: Normal heart sounds. Pulmonary: Effort: Pulmonary effort is normal. Breath sounds: Examination of the right-lower field reveals decreased breath sounds. Examination of the left-lower field reveals decreased breath sounds. Decreased breath sounds present. Abdominal: General: Bowel sounds are normal. Palpations: Abdomen is soft. Musculoskeletal: General: Normal range of motion. Cervical back: Normal range of motion. Skin: General: Skin is warm. Neurological: General: No focal deficit present. Mental Status: She is alert and oriented to person, place, and time. Mental status is at baseline. Psychiatric: Mood and Affect: Mood normal. Behavior: Behavior normal. Assessment/Plan Moderate persistent asthma ILD EMY Allergic rhinitis Class 2 obesity GERD Vitamin D deficiency Hx of chronic sinusitis Recommendations: -ILD work up has been done before. CTD was negative. HP panel results not available. H/o bronchoscopy with BAL at [facility] with Dr. Nolasco. -Reviewed CT chest Nov 2022: patient has had subpleural reticulation in bilateral bases since 2016 but on review has not progressed. 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 The CT chest from 2014 is not available for review. -D/w pt and her son Eloise. There is no characteristic e/o IPF that was initially diagnosed in 2014 and symptoms have not progressed. Patient is not O2 dependent. The CT chest comparison does not show progressive honeycombing. I discussed with patient that IPF is not totally ruled out but clinical picture may be s/o other ILDs. VATS bx would be ideal for diagnosis but at present we will defer due to risks exceeding benefits. If this appears to be a PPF, progressive pulmonary fibrosis on follow up, we will offer OFEV therapy. At this time her symptoms are mostly uncontrolled secondary to asthma and allergic rhinitis. She has corn l[place] behind her house -She did not like Symbicort but does feel improvement with albuterol. Does notice improvement in sinus symptoms with Dymista partially. Avoid allergen exposure. Normal RAST and HP. Repeat PFTs discussed: normal idalia, volumes and DLCO reported. -She is not using Dymista but nasonex and sinus rinse. Recommend continue azelastine & nasonex and staart taking Montelukast HS. -Continue CPAP therapy for EMY. I adjusted her APAP from 5-15 cwp to 10-14 cwp since P95 12.4 cwp. Changed auto ramp to ramp x 15 min and set up EPR. She states she is using it nightly and her data is good. She does not need any repeat sleep study at present. Continue APAP 10-14 cwp. Discussed with patient and her son Eloise on prior visit and now with daughter Krista: Continue asthma management with prn albuterol and focus on optimizing the treatment for allergic rhinitis. Advised patient to stay adherent to the treatment. Continue nightly CPAP. No radiographic progression of ILD is noted. Symptoms are controlled. We did get data for AutoPap 10-15 and her AHI is well-controlled at 0.1. I provided reassurance to the patient that her respiratory and sleep disorders are under control at present. I also reassured that her sinus symptoms are more related to uncontrolled allergic rhinitis and no signs of active infection are noted. However I educated patient to identify signs of sinus infection and contact us. documented in this encounter [facility] Work Phone: 03-14-2024 Instructions Johanna Patino MD - 03/14/2024 10:40 AM EST Please continue using albuterol inhaler as needed for shortness of breath and wheezing. Continue using flonase and azelastine nasal spray 1 spray in each nostril twice daily. Start taking Montelukast 1 tablet nightly at bedtime and may take as needed for seasonal worsening for sinus symptoms. Continue to use CPAP nightly. Please give it a week to get used to new settings. Our office will ask KIRAN Steen to send your data. Follow up in 6 months. documented in this encounter [facility] Work Phone: 03-11-2024 Telephone encounter Note Signed and faxed back. [facility] 03-11-2024 Miscellaneous Notes Signed and faxed back. Rec'd. To pcp to sign. Janee from [employer] calling, they sent a fax yesterday for patients CPAP supplies. Asking if it was received. If not please call her back at [phone] ext [phone]. You can leave a detailed message on her confidential VM. documented in this encounter [facility] 03-11-2024 Telephone encounter Note Rec'd. To pcp to sign. [facility] 03-09-2024 Telephone encounter Note Janee from [employer] calling, they sent a fax yesterday for patients CPAP supplies. Asking if it was received. If not please call her back at [phone] ext [phone]. You can leave a detailed message on her confidential VM. [facility] 03-08-2024 Note HNO ID: [id number] Author: JACKELIN LARES PA-C Service: ? Author Type: Physician Production Operations Engineer Type: Progress Notes Filed: 03/09/2024 14:56 Note Text: ua03/08/2024 Patient presents with: Same Day Appointment: possible UTI, bladder pressure/spasms, urinary frequency, back pain, odor SUBJECTIVE: This is a 78 year old that is here today for Complaint(s) of possible UTI. Having increased urinary frequency. Notes some lower abdomen pressure. No severe pain. Notes urine has a strong odor. Home urine test showed bacteria. Not consistent with her diverticulitis symptoms. Denies fever/chills, nausea, vomiting, hematuria, diarrhea, constipation, blood in stools. Not having any abdominal or back pain at this time. She was seen in the ED 1 month ago for diverticulitis. Completed 14 days of omnicef and flagyl. Symptoms resolved. PAST MEDICAL HISTORY Diagnosis Date CAD (coronary artery disease) 04/16/2012 70-80% LAD --had stent placed 09/07/14 Depressive disorder, not elsewhere classified Diverticulitis of colon with hemorrhage 2001 DM w/o Complication Type II 04/05/2009 GERD (gastroesophageal reflux disease) Hiatal hernia Hypertension 03/30/1988 IPF (idiopathic pulmonary fibrosis) ([facility]) Irritable bowel syndrome Occipital neuralgia Osteoarthritis 06/27/2011 Other chronic sinusitis Other osteoporosis Post-nasal drip Situational depression 12/27/2014 Sleep apnea 03/30/1996 Statin intolerance 12/24/2016 SVT (supraventricular tachycardia) ([facility]) 10/02/2018 Thoracic aortic aneurysm ([facility]) [address] chest (2014, 2013)--July 09, [address] Unspecified essential hypertension Patient has had since age 33 Vitamin D Deficiency 04/18/2009 ALLERGIES Codeine, Vicodin [Hydrocodone-Acetaminophen], Adhesive, Augmentin [Amoxicillin-Pot Clavulanate], Biaxin [Clarithromycin], Cardizem [Diltiazem], Ciprofloxacin, Clonidine, Coreg [Carvedilol], Crestor [Rosuvastatin Calcium], Cymbalta [Duloxetine], Dicyclomine, Diovan [Valsartan], Doxycycline, Flagyl [Metronidazole], Guaifenesin-Sodium Citrate, Levofloxacin, Losartan, Lovastatin, Mobic [Meloxicam], Morphine, Nifedipine, Norvasc [Amlodipine Besylate], Sulfa (Sulfonamide Antibiotics), and Ultravist [Iopromide] MEDICATIONS Current Outpatient Medications Medication Sig clindamycin (CLEOCIN) 300 mg capsule Take 1 capsule by mouth three times a day for 14 days. CPAP Continue settings of Auto PAP to 5-15 cm of water with humidification. Continue orders for: Mask (per patient preference) optional chin strap (if indicated) , filters, tubing, humidifier and lifetime supplies. famotidine (PEPCID) 40 mg tablet Take 40 mg by mouth once daily. sucralfate (CARAFATE) 1 gram tablet Take 1 g by mouth three times a day. (Patient not taking: Reported on 02/24/2024) fluconazole (DIFLUCAN) 150 mg tablet Take 150 mg by mouth. (Patient not taking: Reported on 02/24/2024) potassium chloride (K-TAB) 10 mEq tablet Take 1 tablet by mouth once daily as needed (When taking diuretic). DAILY hydrocortisone 2.5 % cream Apply 1 application to affected area three times a day as needed (itchy skin lesion on chest). Apply thin layer as directed torsemide (DEMADEX) 10 mg tablet Take 1 tablet by mouth once daily as needed (edema). Simethicone 125 mg chewable tablet Take 1 tablet by mouth every 6 hours as needed. blood sugar diagnostic (BLOOD GLUCOSE TEST) test strip Test blood sugar 1 time daily. Dx: Type 2 DM - Controlled E11.9 Insulin: No. Lancets Test blood sugar(s) 2 times daily and as needed. To go with lancet pen with glucometer Dx: Type 2 DM - Controlled E11.9 Insulin: No fluticasone (FLONASE) 50 mcg/actuation nasal spray Use 1-2 Sprays in each nostril once daily as needed for cold/allergy symptoms. Takes daily as needed metoprolol tartrate, short acting, (LOPRESSOR) 50 mg tablet Take 1 tablet by mouth two times a day. flash glucose sensor (FREESTYLE ALEX 2 SENSOR) kit 1 Each every 2 weeks. E11.9 DM type 2, Insulin: No furosemide (LASIX) 10 mg/mL solution Take by mouth as directed. (Patient not taking: Reported on 02/24/2024) azelastine 0.1% nasal spray Use 1 Coleman in each nostril twice daily. mecobalamin (B12 ACTIVE ORAL) Take by mouth. omeprazole (PRILOSEC) 20 mg capsule Take 1 capsule by mouth once daily. as directed flash glucose scanning reader ([employer] ALEX 2 READER) Check sugars at least 4 times daily albuterol HFA (PROVENTIL HFA, VENTOLIN HFA) 90 mcg/actuation inhaler Inhale 1-2 Puffs as instructed every 4 hours as needed (for wheezing and shortness of breath). Lactobacillus acidophilus (PROBIOTIC ORAL) Take by mouth. MULTI-VITAMIN ORAL Take by mouth. COMPOUNDED PRESCRIPTION Powerstep full length original insert (M12.571) Traumatic arthritis of foot, right (primary encounter diagnosis) (Patient not taking: Reported on 09/30/2023) COMPOUNDED PRESCRIPTION New CPAP with supplies CPAP pressure 12 cm H2O. Diagnosis: O (more content not included)... [facility] 03-08-2024 History of Present illness Narrative ua03/08/2024 Patient presents with: Same Day Appointment: possible UTI, bladder pressure/spasms, urinary frequency, back pain, odor SUBJECTIVE: This is a 78 year old that is here today for Complaint(s) of possible UTI. Having increased urinary frequency. Notes some lower abdomen pressure. No severe pain. Notes urine has a strong odor. Home urine test showed bacteria. Not consistent with her diverticulitis symptoms. Denies fever/chills, nausea, vomiting, hematuria, diarrhea, constipation, blood in stools. Not having any abdominal or back pain at this time. She was seen in the ED 1 month ago for diverticulitis. Completed 14 days of omnicef and flagyl. Symptoms resolved. PAST MEDICAL HISTORY Diagnosis Date CAD (coronary artery disease) 04/16/2012 70-80% LAD --had stent placed 09/07/14 Depressive disorder, not elsewhere classified Diverticulitis of colon with hemorrhage 2001 DM w/o Complication Type II 04/05/2009 GERD (gastroesophageal reflux disease) Hiatal hernia Hypertension 03/30/1988 IPF (idiopathic pulmonary fibrosis) ([facility]) Irritable bowel syndrome Occipital neuralgia Osteoarthritis 06/27/2011 Other chronic sinusitis Other osteoporosis Post-nasal drip Situational depression 12/27/2014 Sleep apnea 03/30/1996 Statin intolerance 12/24/2016 SVT (supraventricular tachycardia) ([facility]) 10/02/2018 Thoracic aortic aneurysm ([facility]) [address] chest (2014, 2013)--July 09, [address] Unspecified essential hypertension Patient has had since age 33 Vitamin D Deficiency 04/18/2009 ALLERGIES Codeine, Vicodin [Hydrocodone-Acetaminophen], Adhesive, Augmentin [Amoxicillin-Pot Clavulanate], Biaxin [Clarithromycin], Cardizem [Diltiazem], Ciprofloxacin, Clonidine, Coreg [Carvedilol], Crestor [Rosuvastatin Calcium], Cymbalta [Duloxetine], Dicyclomine, Diovan [Valsartan], Doxycycline, Flagyl [Metronidazole], Guaifenesin-Sodium Citrate, Levofloxacin, Losartan, Lovastatin, Mobic [Meloxicam], Morphine, Nifedipine, Norvasc [Amlodipine Besylate], Sulfa (Sulfonamide Antibiotics), and Ultravist [Iopromide] MEDICATIONS Current Outpatient Medications Medication Sig clindamycin (CLEOCIN) 300 mg capsule Take 1 capsule by mouth three times a day for 14 days. CPAP Continue settings of Auto PAP to 5-15 cm of water with humidification. Continue orders for: Mask (per patient preference) optional chin strap (if indicated) , filters, tubing, humidifier and lifetime supplies. famotidine (PEPCID) 40 mg tablet Take 40 mg by mouth once daily. sucralfate (CARAFATE) 1 gram tablet Take 1 g by mouth three times a day. (Patient not taking: Reported on 02/24/2024) fluconazole (DIFLUCAN) 150 mg tablet Take 150 mg by mouth. (Patient not taking: Reported on 02/24/2024) potassium chloride (K-TAB) 10 mEq tablet Take 1 tablet by mouth once daily as needed (When taking diuretic). DAILY hydrocortisone 2.5 % cream Apply 1 application to affected area three times a day as needed (itchy skin lesion on chest). Apply thin layer as directed torsemide (DEMADEX) 10 mg tablet Take 1 tablet by mouth once daily as needed (edema). Simethicone 125 mg chewable tablet Take 1 tablet by mouth every 6 hours as needed. blood sugar diagnostic (BLOOD GLUCOSE TEST) test strip Test blood sugar 1 time daily. Dx: Type 2 DM - Controlled E11.9 Insulin: No. Lancets Test blood sugar(s) 2 times daily and as needed. To go with lancet pen with glucometer Dx: Type 2 DM - Controlled E11.9 Insulin: No fluticasone (FLONASE) 50 mcg/actuation nasal spray Use 1-2 Sprays in each nostril once daily as needed for cold/allergy symptoms. Takes daily as needed metoprolol tartrate, short acting, (LOPRESSOR) 50 mg tablet Take 1 tablet by mouth two times a day. flash glucose sensor (FREESTYLE ALEX 2 SENSOR) kit 1 Each every 2 weeks. E11.9 DM type 2, Insulin: No furosemide (LASIX) 10 mg/mL solution Take by mouth as directed. (Patient not taking: Reported on 02/24/2024) azelastine 0.1% nasal spray Use 1 Coleman in each nostril twice daily. mecobalamin (B12 ACTIVE ORAL) Take by mouth. omeprazole (PRILOSEC) 20 mg capsule Take 1 capsule by mouth once daily. as directed flash glucose scanning reader (FREESTYLE ALEX 2 READER) Check sugars at least 4 times daily albuterol HFA (PROVENTIL HFA, VENTOLIN HFA) 90 mcg/actuation inhaler Inhale 1-2 Puffs as instructed every 4 hours as needed (for wheezing and shortness of breath). Lactobacillus acidophilus (PROBIOTIC ORAL) Take by mouth. MULTI-VITAMIN ORAL Take by mouth. COMPOUNDED PRESCRIPTION Powerstep full length original insert (M12.571) Traumatic arthritis of foot, right (primary encounter diagnosis) (Patient not taking: Reported on 09/30/2023) COMPOUNDED PRESCRIPTION New CPAP with supplies CPAP pressure 12 cm H2O. Diagnosis: EMY G47.33, Z99.89 Fax to [facility] ACETAMINOPHEN (TYLENOL ORAL) Take 500 mg by mouth as needed. aspirin, enteric coated (ASPIRIN, ENTERIC COATED) 81 mg EC tablet Take 81 mg by mouth once daily. No current facility-administered medications for this visit. SOCIAL HISTORY Social History Tobacco Use Smoking status: Former Current packs/day: 0.00 Average packs/day: 1 pack/day for 12.0 years (12.0 ttl pk-yrs) Types: Cigarettes Start date: 02/21/1963 Quit date: 03/30/1972 Years since quittin.9 Smokeless tobacco: Never Tobacco comments: Mother smoked in childhood home, spouse of 45 years also smoked in home. Vaping Use Vaping status: Never Used Substance Use Topics Alcohol use: No Drug use: No REVIEW OF SYSTEMS See HPI OBJECTIVE: BP 134/60 (BP Site: Right Arm, BP Position: Sitting, BP Cuff Size: Large Adult) Pulse (!) 55 Temp 36.9 C (98.5 F) Resp 16 Ht 152.4 cm (5') Wt 85 kg (187 lb 6.3 oz) SpO2 98% BMI 36.60 kg/m APPEARANCE Well appearing, alert, in no acute distress, well-hydrated, well nourished. HEART RRR with normal S1 and S2 LUNG clear to auscultation ABDOMEN bowel sounds normal , soft, mild lower abdominal TTP, no rebound, rigidity or guarding. Negative McBurney's. Negative Green's. non-distended, without organomegaly or palpable masses, no tenderness to palpation BACK: Normal exam, no CVA TTP ASSESSMENT/PLAN: 1. Urinary frequency - ICD9: 788.41, ICD10: R35.0 (primary diagnosis) acute - UA positive for sarah esterase - Send urine for culture, will hold on antibiotics - Patient education for prevention given - UA DIP B/O - URINE CULTURE 2. Lower abdominal pain - ICD9: 789.09, ICD10: R10.30 Monitor symptoms-if abdominal pain starting, worsening symptoms to f/u sooner and contact office. IF developing fever/chills, vomiting, severe pain to seek care in ED. Reevaluation in 48 hours, sooner if worsening. - COMPLETE BLOOD COUNT AND DIFFERENTIAL - URINE CULTURE The patient indicates understanding of these issues and agrees with the plan. Jackelin Lares PA-C documented in this encounter [facility] 03-08-2024 Telephone encounter Note Patient scheduled 03/08/24 with Shawna Lares. [facility] 03-08-2024 Miscellaneous Notes Patient scheduled 03/08/24 with Shawna Lares. documented in this encounter [facility] 02-24-2024 Instructions Kristy Brower MD - 02/24/2024 2:53 PM EST - Start a new course of Clindamycin 300 mg capsules, extending the treatment for an additional 14 days to address persistent sinus infection symptoms. - Continue using Flonase nasal spray and Medipot as directed to manage nasal congestion and drainage. - Use Azelastine nasal spray as needed to help dry up nasal drainage. - Apply warm compresses to the neck area to help relieve muscle tightness and discomfort. - Perform gentle neck exercises, such as looking up and down, to stretch the muscles and alleviate pain. - Continue wearing support stockings to manage swelling in the feet and legs; consider exploring different sizes or brands to find a more comfortable fit. - Stay hydrated by drinking plenty of fluids, especially when taking diuretics like Torsemide, to support kidney function and help reduce fluid retention. - Monitor symptoms and report any worsening or new symptoms to the healthcare provider. - Follow up appointment scheduled in 3 months. documented in this encounter [facility] 02-24-2024 Note HNO ID: [id number] Author: KRISTY BROWER MD Service: ? Author Type: Physician Type: Progress Notes Filed: 02/24/2024 15:00 Note Text: This note was created using Gifiter. Subjective Whitney Ruiz is a 78 year old female. Patient presents with: F/U 3 Month SUBJECTIVE: Whitney Ruiz is a 78 year old year old lady here today for 3 month follow up appointment for review of medical conditions. Whitney Ruiz is an 78-year-old female with a history of sinusitis, presenting for follow-up. Whitney reports persistent symptoms following a recent sinus infection. She completed a 7-day course of clindamycin 300 mg, which she finished on the . While on the antibiotic, she noted improvement in symptoms, including a reduction in epistaxis. However, after completing the course, her symptoms began to worsen again. She reports ongoing nasal dryness and drainage, with yellow and green discharge. She also experiences daily cephalalgia described as pressure across the forehead. Yesterday morning, Whitney began experiencing pain in the right side of her neck, radiating to the jaw and ear. The pain is exacerbated by palpation and swallowing, and she describes a sensation of something moving in her throat when she swallows, which is painful. She denies awareness of any swollen lymph nodes in the area. Whitney has been using Flonase, a Medipot, and azelastine to manage her symptoms, which she reports have been helpful in drying up some of the drainage. She denies using guaifenesin, as it makes her nervous. She has also been using warm compresses and gentle neck exercises to alleviate muscle tightness. Whitney reports increased swelling in her feet and legs since her illness. She has been wearing support stockings, which she finds helpful, but notes that they sometimes crease at the top. She took a dose of torsemide at 0500 yesterday and reports that she had to urinate frequently, with urine output continuing for about 30 minutes after taking the medication. She denies any concerns about her kidney function and reports that she is staying hydrated. Whitney also reports feeling weak and tired, which she attributes to her illness. She has been drinking plenty of water and urinating frequently. She has upcoming appointments for an endoscopy and knee surgery, but is unsure if she will be able to attend due to her current condition. PAST MEDICAL HISTORY Diagnosis Date CAD (coronary artery disease) 04/16/2012 70-80% LAD --had stent placed 09/07/14 Depressive disorder, not elsewhere classified Diverticulitis of colon with hemorrhage 2001 DM w/o Complication Type II 04/05/2009 GERD (gastroesophageal reflux disease) Hiatal hernia Hypertension 03/30/1988 IPF (idiopathic pulmonary fibrosis) (HCC) Irritable bowel syndrome Occipital neuralgia Osteoarthritis 06/27/2011 Other chronic sinusitis Other osteoporosis Post-nasal drip Situational depression 12/27/2014 Sleep apnea 03/30/1996 Statin intolerance 12/24/2016 SVT (supraventricular tachycardia) ([facility]) 10/02/2018 Thoracic aortic aneurysm (HCC) [address] chest (2014, 2013)--July 09, [address] Unspecified essential hypertension Patient has had since age 33 Vitamin D Deficiency 04/18/2009 Current Outpatient Medications Medication Sig famotidine (PEPCID) 40 mg tablet Take 40 mg by mouth once daily. potassium chloride (K-TAB) 10 mEq tablet Take 1 tablet by mouth once daily as needed (When taking diuretic). DAILY hydrocortisone 2.5 % cream Apply 1 application to affected area three times a day as needed (itchy skin lesion on chest). Apply thin layer as directed torsemide (DEMADEX) 10 mg tablet Take 1 tablet by mouth once daily as needed (edema). Simethicone 125 mg chewable tablet Take 1 tablet by mouth every 6 hours as needed. blood sugar diagnostic (BLOOD GLUCOSE TEST) test strip Test blood sugar 1 time daily. Dx: Type 2 DM - Controlled E11.9 Insulin: No. Lancets Test blood sugar(s) 2 times daily and as needed. To go with lancet pen with glucometer Dx: Type 2 DM - Controlled E11.9 Insulin: No fluticasone (FLONASE) 50 mcg/actuation nasal spray Use 1-2 Sprays in each nostril once daily as needed for cold/allergy symptoms. Takes daily as needed metoprolol tartrate, short acting, (LOPRESSOR) 50 mg tablet Take 1 tablet by mouth two times a day. flash glucose sensor (FREESTYLE ALEX 2 SENSOR) kit 1 Each every 2 weeks. E11.9 DM type 2, Insulin: No azelastine 0.1% nasal spray Use 1 Coleman in each nostril twice daily. mecobalamin (B12 ACTIVE ORAL) Take by mouth. omeprazole (PRILOSEC) 20 mg capsule Take 1 capsule by mouth once daily. as directed flash glucose scanning reader (FREESTYLE ALEX 2 READER) Check sugars at least 4 times daily albuterol HFA (PROVENTIL HFA, VENTOLIN HFA) 90 mcg/actuation inhaler Inhale 1-2 Puffs as instructed every 4 hours as needed (for wheezing and shortness of omari (more content not included)... [facility] 02-24-2024 History of Present illness Narrative This note was created using AISriter. Subjective Whitney Ruiz is a 78 year old female. Patient presents with: F/U 3 Month SUBJECTIVE: Whitney Ruiz is a 78 year old year old lady here today for 3 month follow up appointment for review of medical conditions. Whitney Ruiz is an 78-year-old female with a history of sinusitis, presenting for follow-up. Whitney reports persistent symptoms following a recent sinus infection. She completed a 7-day course of clindamycin 300 mg, which she finished on the . While on the antibiotic, she noted improvement in symptoms, including a reduction in epistaxis. However, after completing the course, her symptoms began to worsen again. She reports ongoing nasal dryness and drainage, with yellow and green discharge. She also experiences daily cephalalgia described as pressure across the forehead. Yesterday morning, Whitney began experiencing pain in the right side of her neck, radiating to the jaw and ear. The pain is exacerbated by palpation and swallowing, and she describes a sensation of something moving in her throat when she swallows, which is painful. She denies awareness of any swollen lymph nodes in the area. Whitney has been using Flonase, a Medipot, and azelastine to manage her symptoms, which she reports have been helpful in drying up some of the drainage. She denies using guaifenesin, as it makes her nervous. She has also been using warm compresses and gentle neck exercises to alleviate muscle tightness. Whitney reports increased swelling in her feet and legs since her illness. She has been wearing support stockings, which she finds helpful, but notes that they sometimes crease at the top. She took a dose of torsemide at 0500 yesterday and reports that she had to urinate frequently, with urine output continuing for about 30 minutes after taking the medication. She denies any concerns about her kidney function and reports that she is staying hydrated. Whitney also reports feeling weak and tired, which she attributes to her illness. She has been drinking plenty of water and urinating frequently. She has upcoming appointments for an endoscopy and knee surgery, but is unsure if she will be able to attend due to her current condition. PAST MEDICAL HISTORY Diagnosis Date CAD (coronary artery disease) 04/16/2012 70-80% LAD --had stent placed 09/07/14 Depressive disorder, not elsewhere classified Diverticulitis of colon with hemorrhage 2001 DM w/o Complication Type II 04/05/2009 GERD (gastroesophageal reflux disease) Hiatal hernia Hypertension 03/30/1988 IPF (idiopathic pulmonary fibrosis) (HCC) Irritable bowel syndrome Occipital neuralgia Osteoarthritis 06/27/2011 Other chronic sinusitis Other osteoporosis Post-nasal drip Situational depression 12/27/2014 Sleep apnea 03/30/1996 Statin intolerance 12/24/2016 SVT (supraventricular tachycardia) ([facility]) 10/02/2018 Thoracic aortic aneurysm (HCC) [address] chest (2014, 2013)--July 09, [address] Unspecified essential hypertension Patient has had since age 33 Vitamin D Deficiency 04/18/2009 Current Outpatient Medications Medication Sig famotidine (PEPCID) 40 mg tablet Take 40 mg by mouth once daily. potassium chloride (K-TAB) 10 mEq tablet Take 1 tablet by mouth once daily as needed (When taking diuretic). DAILY hydrocortisone 2.5 % cream Apply 1 application to affected area three times a day as needed (itchy skin lesion on chest). Apply thin layer as directed torsemide (DEMADEX) 10 mg tablet Take 1 tablet by mouth once daily as needed (edema). Simethicone 125 mg chewable tablet Take 1 tablet by mouth every 6 hours as needed. blood sugar diagnostic (BLOOD GLUCOSE TEST) test strip Test blood sugar 1 time daily. Dx: Type 2 DM - Controlled E11.9 Insulin: No. Lancets Test blood sugar(s) 2 times daily and as needed. To go with lancet pen with glucometer Dx: Type 2 DM - Controlled E11.9 Insulin: No fluticasone (FLONASE) 50 mcg/actuation nasal spray Use 1-2 Sprays in each nostril once daily as needed for cold/allergy symptoms. Takes daily as needed metoprolol tartrate, short acting, (LOPRESSOR) 50 mg tablet Take 1 tablet by mouth two times a day. flash glucose sensor (FREESTYLE ALEX 2 SENSOR) kit 1 Each every 2 weeks. E11.9 DM type 2, Insulin: No azelastine 0.1% nasal spray Use 1 Coleman in each nostril twice daily. mecobalamin (B12 ACTIVE ORAL) Take by mouth. omeprazole (PRILOSEC) 20 mg capsule Take 1 capsule by mouth once daily. as directed flash glucose scanning reader (FREESTYLE ALEX 2 READER) Check sugars at least 4 times daily albuterol HFA (PROVENTIL HFA, VENTOLIN HFA) 90 mcg/actuation inhaler Inhale 1-2 Puffs as instructed every 4 hours as needed (for wheezing and shortness of breath). CPAP Change settings of Auto PAP to 5-15 cm of water with humidification. Continue orders for: Mask (per patient preference) optional chin strap (if indicated) , filters, tubing, humidifier and lifetime supplies. Per patient insurance will not replace supplies - so request repair and provision of loaner CPAP. Lactobacillus acidophilus (PROBIOTIC ORAL) Take by mouth. MULTI-VITAMIN ORAL Take by mouth. COMPOUNDED PRESCRIPTION New CPAP with supplies CPAP pressure 12 cm H2O. 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 aspirin, enteric coated (ASPIRIN, ENTERIC COATED) 81 mg EC tablet Take 81 mg by mouth once daily. sucralfate (CARAFATE) 1 gram tablet Take 1 g by mouth three times a day. (Patient not taking: Reported on 02/24/2024) fluconazole (DIFLUCAN) 150 mg tablet Take 150 mg by mouth. (Patient not taking: Reported on 02/24/2024) furosemide (LASIX) 10 mg/mL solution Take by mouth as directed. (Patient not taking: Reported on 02/24/2024) COMPOUNDED PRESCRIPTION Powerstep full length original insert (M12.571) Traumatic arthritis of foot, right (primary encounter diagnosis) (Patient not taking: Reported on 09/30/2023) No current facility-administered medications for this visit. Review of Systems Objective BP 142/78 Pulse 74 Temp 37.1 C (98.8 F) Resp 16 Wt 86.4 kg (190 lb 7.6 oz) SpO2 97% BMI 37.15 kg/m Last 5 Encounter Wt Readings: Date: Wt: 02/24/2024 86.4 kg (190 lb 7.6 oz) 02/12/2024 84.6 kg (186 lb 6.4 oz) 01/14/2024 85.5 kg (188 lb 7.9 oz) 12/25/2023 85.5 kg (188 lb 7.9 oz) 11/11/2023 85.9 kg (189 lb 6 oz) No waist measurement recorded Estimated body mass index is 37.15 kg/m as calculated from the following: Height as of 09/30/23: 152.5 cm (5' 0.04). Weight as of this encounter: 86.4 kg (190 lb 7.6 oz). Last 5 Encounter BP Readings: Date: BP: 02/24/2024 142/78 02/12/2024 170/94 01/14/2024 160/84 12/25/2023 166/92 11/11/2023 122/88 02/24/24 1348 02/24/24 1449 BP: 142/78 130/82 Pulse: 74 Resp: 16 Temp: 37.1 C (98.8 F) SpO2: 97% Weight: 86.4 kg (190 lb 7.6 oz) Physical Exam Constitutional: Appearance: Normal appearance. HENT: Head: Normocephalic. Comments: Tender over maxillary sinuses and frontal right sinus Right Ear: Tympanic membrane, ear canal and external ear normal. Left Ear: Tympanic membrane, ear canal and external ear normal. Eyes: Conjunctiva/sclera: Conjunctivae normal. Cardiovascular: Rate and Rhythm: Normal rate and regular rhythm. Heart sounds: Normal heart sounds. Comments: Stockings helping to control swelling Pulmonary: Effort: Pulmonary effort is normal. Breath sounds: Normal breath sounds. Musculoskeletal: Right lower le+ Pitting Edema present. Left lower le+ Pitting Edema present. Skin: General: Skin is warm and dry. Neurological: General: No focal deficit present. Mental Status: She is alert and oriented to person, place, and time. Psychiatric: Mood and Affect: Mood normal. Behavior: Behavior normal. Thought Content: Thought content normal. Judgment: Judgment normal. Assessment and Plan # Acute non-recurrent frontal sinusitis (J01.10) # Dysfunction of right eustachian tube (H69.91) # Acute pharyngitis, unspecified etiology (J02.9) - Persistent symptoms including nasal drainage with yellow and green discharge, right-sided frontal sinus tenderness, and sore throat. Previous treatment with clindamycin 300 mg capsules for 7 days provided temporary relief. - Eardrums are no longer red or bulging on examination, indicating improvement in otitis media. - Prescribed an additional 14-day course of clindamycin to ensure complete resolution of the infection. - Continue using Flonase, azelastine, and Medipot for nasal congestion and drainage. - Advised against using guaifenesin due to patient's reported anxiety with its use. # Neck pain on right side (M54.2) - Pain localized to the right side of the neck, radiating to the jaw and face, exacerbated by swallowing. - No significant lymphadenopathy palpated; likely due to muscle inflammation or irritation of the glossopharyngeal nerve. - Recommended warm compresses and gentle neck exercises to alleviate muscle tension. - Pain expected to improve with extended antibiotic treatment for sinusitis. # Bilateral leg edema (R60.0) - Edema noted in both legs, more pronounced on one side; attributed to inflammatory response from current illness. - Patient is using support stockings; advised to ensure proper fit to avoid constriction and promote venous return. - Continue torsemide as prescribed to manage fluid retention; ensure adequate hydration to support renal function. - Recent labs show normal kidney function with eGFR >90, BUN 12 mg/dL, and creatinine 0.58 mg/dL. # Urge incontinence of urine (N39.41) - Discussed recent episode of prolonged urination following torsemide administration; explained as a normal diuretic effect. - Advised to maintain hydration and monitor urinary output. - Patient considering consultation with urologist Dr. Charles at [facility]. # Encounter for immunization (Z23) - Deferred discussion on shingles vaccine; available at pharmacy if patient decides to proceed. # Essential (primary) hypertension (I10) - Blood pressure improved to 130/82 mmHg from previous readings of 170/94 mmHg. - Continue current antihypertensive regimen with metoprolol. - Next follow-up scheduled in April, with an additional appointment to be added in August. # Obstructive sleep apnea (G47.33) Discussed need for APAP supplies. [facility] has not been sending supplies. Last prescription was sent 2021 on our records. Uses APAP nightly and benefits from use. Prescription for APAP printed to send to [facility]. Kristy Brower MD documented in this encounter [facility] 02-12-2024 History of Present illness Narrative SUBJECTIVE Whitney Ruiz is a 78 year old female here today for a check up on her medical problems. Chief Complaint Patient presents with: Sore Throat: cough moist productive with yellow green sputum,congestion HPI Whitney Ruiz is a 78 year old female. She is an established patient of Kristy Brower MD. Here today acutely for concerns of not feeling well. Issues with sinus congestion, pressure, pain and discolored sinus drainage. Cough that is productive. Using nose spray, doing netti pot. Not improving. Her medications were reviewed today and her list is now up to date. Medications Current Outpatient Medications Medication Sig famotidine (PEPCID) 40 mg tablet Take 40 mg by mouth once daily. sucralfate (CARAFATE) 1 gram tablet Take 1 g by mouth three times a day. fluconazole (DIFLUCAN) 150 mg tablet Take 150 mg by mouth. potassium chloride (K-TAB) 10 mEq tablet Take 1 tablet by mouth once daily as needed (When taking diuretic). DAILY hydrocortisone 2.5 % cream Apply 1 application to affected area three times a day as needed (itchy skin lesion on chest). Apply thin layer as directed torsemide (DEMADEX) 10 mg tablet Take 1 tablet by mouth once daily as needed (edema). Simethicone 125 mg chewable tablet Take 1 tablet by mouth every 6 hours as needed. fluticasone (FLONASE) 50 mcg/actuation nasal spray Use 1-2 Sprays in each nostril once daily as needed for cold/allergy symptoms. Takes daily as needed metoprolol tartrate, short acting, (LOPRESSOR) 50 mg tablet Take 1 tablet by mouth two times a day. furosemide (LASIX) 10 mg/mL solution Take by mouth as directed. azelastine 0.1% nasal spray Use 1 Coleman in each nostril twice daily. omeprazole (PRILOSEC) 20 mg capsule Take 1 capsule by mouth once daily. as directed albuterol HFA (PROVENTIL HFA, VENTOLIN HFA) 90 mcg/actuation inhaler Inhale 1-2 Puffs as instructed every 4 hours as needed (for wheezing and shortness of breath). Lactobacillus acidophilus (PROBIOTIC ORAL) Take by mouth. MULTI-VITAMIN ORAL Take by mouth. ACETAMINOPHEN (TYLENOL ORAL) Take 500 mg by mouth as needed. aspirin, enteric coated (ASPIRIN, ENTERIC COATED) 81 mg EC tablet Take 81 mg by mouth once daily. clindamycin (CLEOCIN) 300 mg capsule Take 1 capsule by mouth three times a day for 7 days. blood sugar diagnostic (BLOOD GLUCOSE TEST) test strip Test blood sugar 1 time daily. Dx: Type 2 DM - Controlled E11.9 Insulin: No. Lancets Test blood sugar(s) 2 times daily and as needed. To go with lancet pen with glucometer Dx: Type 2 DM - Controlled E11.9 Insulin: No flash glucose sensor (FREESTYLE ALEX 2 SENSOR) kit 1 Each every 2 weeks. E11.9 DM type 2, Insulin: No mecobalamin (B12 ACTIVE ORAL) Take by mouth. (Patient not taking: Reported on 07/31/2023) flash glucose scanning reader (FREESTYLE ALEX 2 READER) Check sugars at least 4 times daily CPAP Change settings of Auto PAP to 5-15 cm of water with humidification. Continue orders for: Mask (per patient preference) optional chin strap (if indicated) , filters, tubing, humidifier and lifetime supplies. Per patient insurance will not replace supplies - so request repair and provision of loaner CPAP. COMPOUNDED PRESCRIPTION Powerstep full length original insert (M12.571) Traumatic arthritis of foot, right (primary encounter diagnosis) (Patient not taking: Reported on 09/30/2023) COMPOUNDED PRESCRIPTION New CPAP with supplies CPAP pressure 12 cm H2O. 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 ALLERGIES Allergen Reactions Codeine Shortness of Breath Vicodin [Hydrocodon* Intolerance cardiac arrest Adhesive Rash Augmentin [Amoxicil* Shortness of Breath Called and complained that caused SOB Biaxin [Clarithromy* Mental Status Change Cardizem [Diltiazem] Intolerance itching Ciprofloxacin Other: See Comments Muscle pain Clonidine Intolerance low heart rate to 42; BP also dropped; tried patch and was okay for a while but then stopped since affected thinking Coreg [Carvedilol] Intolerance grumpy, runny nose Crestor [Rosuvastat* Intolerance muscle aches all over Cymbalta [Duloxetin* Other: See Comments Elevated BP and blood sugar went up Dicyclomine Shortness of Breath Diovan [Valsartan] Swelling In feet, legs & ankles Doxycycline Vomiting Vomiting after the first dose, intense. Flagyl [Metronidazo* Itching Guaifenesin-Sodium * Intolerance jittery Levofloxacin Other: See Comments Muscle pain Losartan Other: See Comments Made me lose hair. Low back pain, stomach upset Lovastatin Intolerance Muscle aches all over Mobic [Meloxicam] lips swell Morphine Itching possibly was from the IV or tape since was from IV morphine; only affected arm of hand had IV in Nifedipine Intolerance palpitations; also to see if runny nose resolved (did not) Norvasc [Amlodipine* Swelling Sulfa (Sulfonamide * Rash Ultravist [Iopromid* Other: See Comments Pt sts with previous cat scan she had delayed chest tightness ACTIVE PROBLEM LIST Ipf (Idiopathic Pulmonary Fibrosis) ([facility]) - 05/05/2023 Svt (Supraventricular Tachycardia) ([facility]) - 08/18/2022 Obesity, Class II, Bmi 35-39.9 - 08/18/2022 Ild (Interstitial Lung Disease) ([facility]) - 09/29/2019 History of Supraventricular Tachycardia - 10/24/2018 Pvc's (Premature Ventricular Contractions) - 10/02/2018 Premature Atrial Contractions - 10/02/2018 Palpitations - 10/02/2018 Lung Nodule - 01/23/2017 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 Perry managing; biopsy 02/29/12 Shortness of Breath On Exertion - 10/27/2013 Comment: Has been having SOB for a long time but worse in the last 1 week, 2 weeks ago she had throat drainage and soreness, She had a culture which was negative She was given ABX on Thursday Developed a fever after that so she cont taking the abx although she initially didn't want to Lipoma of Unspecified Site - 01/13/2013 Abdominal Mass - 12/23/2012 Osteopenia - 12/14/2012 Comment: BMP 10/2012 osteopenia, outside BMD in 2010 also showed osteopenia Occipital Neuralgia - 09/29/2012 Coronary Artery Disease Involving [place] Coronary Artery of [place] Heart Without Angina Pectoris - 04/16/2012 Personal History of Colonic Polyps - 01/07/2012 Osteoarthritis - 06/27/2011 Comment: Dr. Cuellar, rheumatology in [facility]. Other Hammer Toe (Acquired) - 04/21/2011 Ddd (Degenerative Disc Disease), Cervical - 04/11/2011 Comment: hx sciatica Cervical Spondylosis Without Myelopathy - 01/31/2011 Porokeratosis - 12/18/2010 Vitamin D Deficiency - 04/18/2009 Hyperlipidemia - 04/05/2009 Gerd (Gastroesophageal Reflux Disease) Obstructive Sleep Apnea - 10/12/2007 Comment: KIRAN Gonzales at [facility] oversees PAP use Essential Hypertension - 04/01/2007 Mild Intermittent Asthma With Acute Exacerbation Diaphragmatic Hernia Comment: Hiatal hernia Social History Tobacco Use Smoking status: Former Current packs/day: 0.00 Average packs/day: 1 pack/day for 12.0 years (12.0 ttl pk-yrs) Types: Cigarettes Start date: 02/21/1963 Quit date: 03/30/1972 Years since quittin.9 Smokeless tobacco: Never Tobacco comments: Mother smoked in childhood home, spouse of 45 years also smoked in home. Vaping Use Vaping status: Never Used Substance Use Topics Alcohol use: No Drug use: No Review of Systems HENT: Positive for congestion, postnasal drip, rhinorrhea, sinus pressure, sinus pain and sore throat. Respiratory: Positive for cough. Negative for chest tightness, shortness of breath and wheezing. Cardiovascular: Negative. OBJECTIVE BP 170/94 Pulse 66 Temp (Src) 99.2 (Tympanic) Wt 186 lb 6.4 oz (84.6kg) SpO2 97% Physical Exam Vitals and nursing note reviewed. Constitutional: General: She is awake. She is not in acute distress. Appearance: Normal appearance. She is well-developed and well-groomed. She is not ill-appearing, toxic-appearing or diaphoretic. HENT: Head: Normocephalic. Right Ear: External ear normal. Tympanic membrane is erythematous and bulging. Left Ear: External ear normal. Tympanic membrane is erythematous and bulging. Nose: Mucosal edema and rhinorrhea present. Rhinorrhea is purulent. Right Sinus: Maxillary sinus tenderness and frontal sinus tenderness present. Left Sinus: Maxillary sinus tenderness and frontal sinus tenderness present. Eyes: General: Vision grossly intact. Conjunctiva/sclera: Conjunctivae normal. Pupils: Pupils are equal, round, and reactive to light. Neck: Vascular: No JVD. Trachea: Trachea normal. Pulmonary: Effort: Pulmonary effort is normal. No accessory muscle usage, prolonged expiration or respiratory distress. Musculoskeletal: Cervical back: Neck supple. Skin: General: Skin is warm and dry. Capillary Refill: Capillary refill takes less than 2 seconds. Neurological: General: No focal deficit present. Mental Status: She is alert and oriented to person, place, and time. Mental status is at baseline. Psychiatric: Attention and Perception: Attention and perception normal. Mood and Affect: Mood and affect normal. Speech: Speech normal. Behavior: Behavior normal. Behavior is cooperative. Thought Content: Thought content normal. Cognition and Memory: Cognition and memory normal. Judgment: Judgment normal. ASSESSMENT/PLAN: 1. Acute non-recurrent frontal sinusitis - ICD9: 461.1, ICD10: J01.10 (primary diagnosis) - Will begin treatment with as per antibiotic as written, see orders - The patient should also be given OTC cough and cold meds as needed, warm salt water gargles, throat lozenges and/or OTC throat spray as needed, and nasal saline gtts and suction prn for the first 5-7 days of treatment. - Supportive care with plenty of fluids, rest, and analgesia prn. - Follow up in 3-5 days if symptoms persist or worsen. - CLINDAMYCIN HCL 300 MG CAPSULE 2. Essential hypertension - ICD9: 401.9, ICD10: I10 - Factors affecting control: She thinks it is high right now due to not feeling good - Continue current medications - Recommend home blood pressure monitoring, to bring results to next visit - Encouraged sodium restriction, DASH or Mediterranean diet - Recommend regular aerobic exercise Follow up scheduled for about 10 days. Keep this for close follow up and recheck of blood pressure. Portions of this note have been entered by ancillary staff. I have reviewed and when necessary edited, so that they are an adequate record of my encounter with this patient Please note that parts of this document were created using voice recognition software and therefore may contain grammatical errors. Patient verbalizes understanding of instructions from today's visit and in agreement with treatment plan. Questions answered. Agrees to call the office if questions, concerns of issues with acute symptoms not improving or if they worsen. See diagnoses and orders for additional plan(s). Allergies and medications were reviewed, list was updated, and refills given if needed. Past medical, surgical, social, and family history reviewed and updated as appropriate. Encouraged proper diet & exercise as well as compliance with taking medications. Age-appropriate health preventative measures were discussed. Return if symptoms worsen or fail to improve, for Keep next scheduled appointment.. Kojo Frederick APRN-JACKIE documented in this encounter [facility] 02-12-2024 Note HNO ID: [id number] Author: KOJO FREDERICK APRN.CNP Service: ? Author Type: Nurse Practitioner Type: Progress Notes Filed: 02/12/2024 14:48 Note Text: SUBJECTIVE Whitney Ruiz is a 78 year old female here today for a check up on her medical problems. Chief Complaint Patient presents with: Sore Throat: cough moist productive with yellow green sputum,congestion HPI Whitney Ruiz is a 78 year old female. She is an established patient of Kristy Brower MD. Here today acutely for concerns of not feeling well. Issues with sinus congestion, pressure, pain and discolored sinus drainage. Cough that is productive. Using nose spray, doing netti pot. Not improving. Her medications were reviewed today and her list is now up to date. Medications Current Outpatient Medications Medication Sig famotidine (PEPCID) 40 mg tablet Take 40 mg by mouth once daily. sucralfate (CARAFATE) 1 gram tablet Take 1 g by mouth three times a day. fluconazole (DIFLUCAN) 150 mg tablet Take 150 mg by mouth. potassium chloride (K-TAB) 10 mEq tablet Take 1 tablet by mouth once daily as needed (When taking diuretic). DAILY hydrocortisone 2.5 % cream Apply 1 application to affected area three times a day as needed (itchy skin lesion on chest). Apply thin layer as directed torsemide (DEMADEX) 10 mg tablet Take 1 tablet by mouth once daily as needed (edema). Simethicone 125 mg chewable tablet Take 1 tablet by mouth every 6 hours as needed. fluticasone (FLONASE) 50 mcg/actuation nasal spray Use 1-2 Sprays in each nostril once daily as needed for cold/allergy symptoms. Takes daily as needed metoprolol tartrate, short acting, (LOPRESSOR) 50 mg tablet Take 1 tablet by mouth two times a day. furosemide (LASIX) 10 mg/mL solution Take by mouth as directed. azelastine 0.1% nasal spray Use 1 Coleman in each nostril twice daily. omeprazole (PRILOSEC) 20 mg capsule Take 1 capsule by mouth once daily. as directed albuterol HFA (PROVENTIL HFA, VENTOLIN HFA) 90 mcg/actuation inhaler Inhale 1-2 Puffs as instructed every 4 hours as needed (for wheezing and shortness of breath). Lactobacillus acidophilus (PROBIOTIC ORAL) Take by mouth. MULTI-VITAMIN ORAL Take by mouth. ACETAMINOPHEN (TYLENOL ORAL) Take 500 mg by mouth as needed. aspirin, enteric coated (ASPIRIN, ENTERIC COATED) 81 mg EC tablet Take 81 mg by mouth once daily. clindamycin (CLEOCIN) 300 mg capsule Take 1 capsule by mouth three times a day for 7 days. blood sugar diagnostic (BLOOD GLUCOSE TEST) test strip Test blood sugar 1 time daily. Dx: Type 2 DM - Controlled E11.9 Insulin: No. Lancets Test blood sugar(s) 2 times daily and as needed. To go with lancet pen with glucometer Dx: Type 2 DM - Controlled E11.9 Insulin: No flash glucose sensor (FREESTYLE ALEX 2 SENSOR) kit 1 Each every 2 weeks. E11.9 DM type 2, Insulin: No mecobalamin (B12 ACTIVE ORAL) Take by mouth. (Patient not taking: Reported on 07/31/2023) flash glucose scanning reader (FREESTYLE ALEX 2 READER) Check sugars at least 4 times daily CPAP Change settings of Auto PAP to 5-15 cm of water with humidification. Continue orders for: Mask (per patient preference) optional chin strap (if indicated) , filters, tubing, humidifier and lifetime supplies. Per patient insurance will not replace supplies - so request repair and provision of loaner CPAP. COMPOUNDED PRESCRIPTION Powerstep full length original insert (M12.571) Traumatic arthritis of foot, right (primary encounter diagnosis) (Patient not taking: Reported on 09/30/2023) COMPOUNDED PRESCRIPTION New CPAP with supplies CPAP pressure 12 cm H2O. 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 ALLERGIES Allergen Reactions Codeine Shortness of Breath Vicodin [Hydrocodon* Intolerance cardiac arrest Adhesive Rash Augmentin [Amoxicil* Shortness of Breath Called and complained that caused SOB Biaxin [Clarithromy* Mental Status Change Cardizem [Diltiazem] Intolerance itching Ciprofloxacin Other: See Comments Muscle pain Clonidine Intolerance low heart rate to 42; BP also dropped; tried patch and was okay for a while but then stopped since affected thinking Coreg [Carvedilol] Intolerance grumpy, runny nose Crestor [Rosuvastat* Intolerance muscle aches all over Cymbalta [Duloxetin* Other: See Comments Elevated BP and blood sugar went up Dicyclomine Shortness of Breath Diovan [Valsartan] Swelling In feet, legs AND ankles Doxycycline Vomiting Vomiting after the first dose, intense. Flagyl [Metronidazo* Itching Guaifenesin-Sodium * Intolerance jittery Levofloxacin Other: See Comments Muscle pain Losartan Other: See Comments Made me lose hair. Low back pain, stomach upset Lovastatin Intolerance Muscle aches all over Mobic [Meloxicam] lips swell Morphine Itching possibly was from the IV or tape since was from IV morphine; o (more content not included)... [facility] 01-15-2024 Note HNO ID: [id number] Author: LILLIAN VALENTE RN Service: ? Author Type: Registered Nurse Type: Progress Notes Filed: 01/15/2024 13:24 Note Text: ED Follow-Up Note Provider Action / FYI: Outreach was completed via telephone regarding the patient?s recent [facility] ED visit. Member denies any concerning symptoms or current medical or social needs. The patient was encouraged to contact their primary care provider (PCP) to schedule a follow up appointment and ask any questions related to their ongoing care within 7 days of the ED visit. Patient stated understanding Call completed by: RN Patient seen in ED: Out of Network ED Contact made with Patient: Yes The patient was identified by Name and Date of . Discussed Care with: patient Patient was seen in the Emergency Department (ED) Location: [facility] Date: 01/11/24 Reason for ED Visit: Amb to ER from home with c/o 7 days of nausea and abdominal pain--states her stool today has mucous and slight amount of blood-- ED Intervention: Ct of Abd/Pelvis Imaging Results - CT abdomen pelvis wo IV contrast (01/11/2024 12:59 PM EDT) Impressions 01/11/2024 1:50 PM EDT 1. Findings consistent with a acute distal sigmoid diverticulitis, without abscess or bowel obstruction. Correlate clinically and follow-up as needed. New Medications: Zofran 4mg iv x1 in er Rx sent to pts pharmacy([facility]) for Flagyl 500 mg 3 times a days x 10 days,Diflucan x1 if needed, Ceftin 500mg po twice a day x 10 days Medication Changes: see above Does patient understand medication changes: Yes Can patient afford medication changes: Yes Patient educated on worsening symptoms and when and where to seek additional care: Yes Patient Education Provided including treatment plan and new orders. Patient provided with appropriate counseling: Yes Based on collaborating supervising physician, the following disposition is advised: No symptoms or symptoms present, not severe. Routed to: No Action Needed [facility] Education Provided this Outreach: No Pt doing well Went to see her pcp for f/u yesterday Does have GI f/u sched for 01/24 Following a low residue diet Is a little constipated.Encouraged to increase fluid intake.Suggested mom or prune juice as needed Lillian Valente RN January 15, 2024 1:21 PM [facility] 01-15-2024 History of Present illness Narrative ED Follow-Up Note Provider Action / FYI: Outreach was completed via telephone regarding the patient s recent [facility] ED visit. Member denies any concerning symptoms or current medical or social needs. The patient was encouraged to contact their primary care provider (PCP) to schedule a follow up appointment and ask any questions related to their ongoing care within 7 days of the ED visit. Patient stated understanding Call completed by: RN Patient seen in ED: Out of Network ED Contact made with Patient: Yes The patient was identified by Name and Date of . Discussed Care with: patient Patient was seen in the Emergency Department (ED) Location: [facility] Date: 01/11/24 Reason for ED Visit: Amb to ER from home with c/o 7 days of nausea and abdominal pain--states her stool today has mucous and slight amount of blood-- ED Intervention: Ct of Abd/Pelvis Imaging Results - CT abdomen pelvis wo IV contrast (01/11/2024 12:59 PM EDT) Impressions 01/11/2024 1:50 PM EDT 1. Findings consistent with a acute distal sigmoid diverticulitis, without abscess or bowel obstruction. Correlate clinically and follow-up as needed. New Medications: Zofran 4mg iv x1 in er Rx sent to pts pharmacy([facility]) for Flagyl 500 mg 3 times a days x 10 days,Diflucan x1 if needed, Ceftin 500mg po twice a day x 10 days Medication Changes: see above Does patient understand medication changes: Yes Can patient afford medication changes: Yes Patient educated on worsening symptoms and when and where to seek additional care: Yes Patient Education Provided including treatment plan and new orders. Patient provided with appropriate counseling: Yes Based on collaborating supervising physician, the following disposition is advised: No symptoms or symptoms present, not severe. Routed to: No Action Needed [facility] Education Provided this Outreach: No Pt doing well Went to see her pcp for f/u yesterday Does have GI f/u sched for 01/24 Following a low residue diet Is a little constipated.Encouraged to increase fluid intake.Suggested mom or prune juice as needed Lillian Valente RN January 15, 2024 1:21 PM documented in this encounter [facility] 01-15-2024 Note Patient Outreach ([facility] WHITNEY RUIZ ([id number]) 1945 F Date Time Provider Department 01/15/24 LILLIAN VALENTE During your visit today, we recorded the following information about you: Lillian Valente RN 01/15/2024 1:24 PM Signed ED Follow-Up Note Provider Action / FYI: Outreach was completed via telephone regarding the patient?s recent [facility] ED visit. Member denies any concerning symptoms or current medical or social needs. The patient was encouraged to contact their primary care provider (PCP) to schedule a follow up appointment and ask any questions related to their ongoing care within 7 days of the ED visit. Patient stated understanding Call completed by: RN Patient seen in ED: Out of Network ED Contact made with Patient: Yes The patient was identified by Name and Date of . Discussed Care with: patient Patient was seen in the Emergency Department (ED) Location: [facility] Date: 01/11/24 Reason for ED Visit: Amb to ER from home with c/o 7 days of nausea and abdominal pain--states her stool today has mucous and slight amount of blood-- ED Intervention: Ct of Abd/Pelvis Imaging Results - CT abdomen pelvis wo IV contrast (01/11/2024 12:59 PM EDT) Impressions 01/11/2024 1:50 PM EDT 1. Findings consistent with a acute distal sigmoid diverticulitis, without abscess or bowel obstruction. Correlate clinically and follow-up as needed. New Medications: Zofran 4mg iv x1 in er Rx sent to pts pharmacy([facility]) for Flagyl 500 mg 3 times a days x 10 days,Diflucan x1 if needed, Ceftin 500mg po twice a day x 10 days Medication Changes: see above Does patient understand medication changes: Yes Can patient afford medication changes: Yes Patient educated on worsening symptoms and when and where to seek additional care: Yes Patient Education Provided including treatment plan and new orders. Patient provided with appropriate counseling: Yes Based on collaborating supervising physician, the following disposition is advised: No symptoms or symptoms present, not severe. Routed to: No Action Needed [facility] Education Provided this Outreach: No Pt doing well Went to see her pcp for f/u yesterday Does have GI f/u sched for 01/24 Following a low residue diet Is a little constipated.Encouraged to increase fluid intake.Suggested mom or prune juice as needed Lillian Valente RN January 15, 2024 1:21 PM Allergies As of Date: 01/15/2024 Noted Allergy Reaction CODEINE 04/24/2006 12 - Shortness of Breath VICODIN (HYDROCODONE-ACETAMINOPHE*08/11/19 07 5 - Intolerance Comments: cardiac arrest ADHESIVE 03/27/2010 2 - Rash AUGMENTIN (AMOXICILLIN-POT CLAVUL*03/09/2012 12 - Shortness of Breath Comments: Called and complained that caused SOB BIAXIN (CLARITHROMYCIN) 02/16/2013 1 - Mental Status Change CARDIZEM (DILTIAZEM) 03/16/2019 5 - Intolerance Comments: itching CIPROFLOXACIN 08/04/2013 14 - Other: See Comments Comments: Muscle pain CLONIDINE 07/06/2013 5 - Intolerance Comments: low heart rate to 42; BP also dropped; tried patch and was okay for a while but then stopped since affected thinking COREG (CARVEDILOL) 10/04/2019 5 - Intolerance Comments: grumpy, runny nose CRESTOR (ROSUVASTATIN CALCIUM) 09/11/2009 5 - Intolerance Comments: muscle aches all over CYMBALTA (DULOXETINE) 08/14/2014 14 - Other: See Comments Comments: Elevated BP and blood sugar went up DICYCLOMINE 05/19/2013 12 - Shortness of Breath DIOVAN (VALSARTAN) 11/17/2017 7 - Swelling Comments: In feet, legs AND ankles DOXYCYCLINE 03/11/2012 11 - Vomiting Comments: Vomiting after the first dose, intense. FLAGYL (METRONIDAZOLE) 02/16/2013 9 - Itching GUAIFENESIN-SODIUM CITRATE 04/24/2006 5 - Intolerance Comments: jittery LEVOFLOXACIN 08/04/2013 14 - Other: See Comments Comments: Muscle pain LOSARTAN 10/04/2019 14 - Other: See Comments Comments: Made me lose hair. Low back pain, stomach upset LOVASTATIN 09/11/2009 5 - Intolerance Comments: Muscle aches all over MOBIC (MELOXICAM) 10/12/2007 Comments: lips swell MORPHINE 10/06/2011 9 - Itching Comments: possibly was from the IV or tape since was from IV morphine; only affected arm of hand had IV in NIFEDIPINE 03/16/2019 5 - Intolerance Comments: palpitations; also to see if runny nose resolved (did not) NORVASC (AMLODIPINE BESYLATE) 10/20/2017 7 - Swelling SULFA (SULFONAMIDE ANTIBIOTICS) 04/24/2006 2 - Rash ULTRAVIST (IOPROMIDE) 01/18/2010 14 - Other: See Comments Comments: Pt sts with previous cat scan she had delayed chest tightness Date Reviewed: 01/14/2024 Reviewed by: Micaela Priest LPN - Fully Assessed Reason for Visit: EKATERINA GALLEGOS RN [[id number]] Cmt: ER outreach follow up Prescriptions as of 01/15/2024 - cefUROXime (CEFTIN) 500 mg tablet Take 500 mg by mouth. - fluconazole (DIFLUCAN) 150 mg tablet Take 150 mg by ryan (more content not included)... [facility] 01-14-2024 Instructions Kristy Brower MD - 01/14/2024 5:49 PM EDT - Continue taking Cefuroxime and Metronidazole as prescribed for 10 days to treat diverticulitis and bladder infection. - Take Fluconazole as prescribed to prevent a yeast infection. - Take Ondansetron as prescribed to manage nausea. - Follow a bland, low-residue diet to avoid irritating the digestive tract. Suitable foods include mashed potatoes, noodles, broth, soups, and well-cooked rice. - Stay hydrated and incorporate healthy oils like avocado, olive, and coconut oil into your diet to support nail health. - Avoid using Sylvie dish soap for handwashing; use milder soaps like [employer] and wear gloves when washing dishes to prevent drying out your hands and nails. - Practice Kegel exercises to strengthen pelvic muscles and help manage urge incontinence. Start with three repetitions in the morning, afternoon, and before bed, gradually increasing as tolerated. - Follow up with your GI doctor, Dr. Nicole, on the of this month for further evaluation and management of diverticulitis. - Keep your regular checkup appointment with your primary care provider. - Monitor for any worsening symptoms or new issues and report them to your healthcare provider promptly. Vitamin D3 2000 to 4000 units per day. May add 1000 to 2000 units if already taking some Vitamin D3. documented in this encounter [facility] 01-14-2024 Note HNO ID: [id number] Author: KRISTY BROWER MD Service: ? Author Type: Physician Type: Progress Notes Filed: 01/14/2024 17:53 Note Text: This note was created using AISriter. Subjective Whitney Ruiz is a 78 year old female. Patient presents with: ER F/U SUBJECTIVE: Whitney Ruiz is a 78 year old year old lady here today for ER follow up appointment for review of medical conditions. The patient is a 78-year-old female, with a history of diverticulitis and UTI, presenting for follow-up after a recent ER visit. The patient was seen in the ER on the for acute distal sigmoid diverticulitis and a UTI. She was prescribed cefuroxime and metronidazole for 10 days, fluconazole for potential yeast infection, and ondansetron for nausea. She reports feeling some improvement but notes significant fatigue, which she attributes to the medications. She denies any allergies to penicillin but has a known intolerance to Augmentin, causing shortness of breath, and Cipro, causing muscle pain. Prior to the ER visit, she experienced weakness, nausea, and belching, which she initially thought was due to food consumption. She also noted mucous and blood in her stool, which prompted her to seek medical attention. She reports that the pain was not worsening but was persistent and accompanied by back pain, leading her to the ER. She denies any symptoms of a bladder prolapse. She has been following a bland diet, consuming mashed potatoes, noodles, broth, soups, and soft rice. She also reports splitting and breaking fingernails. She has a follow-up appointment with a GI doctor on the . PAST MEDICAL HISTORY Diagnosis Date CAD (coronary artery disease) 04/16/2012 70-80% LAD --had stent placed 09/07/14 Depressive disorder, not elsewhere classified Diverticulitis of colon with hemorrhage 2001 DM w/o Complication Type II 04/05/2009 GERD (gastroesophageal reflux disease) Hiatal hernia Hypertension 03/30/1988 IPF (idiopathic pulmonary fibrosis) ([facility]) Irritable bowel syndrome Occipital neuralgia Osteoarthritis 06/27/2011 Other chronic sinusitis Other osteoporosis Post-nasal drip Situational depression 12/27/2014 Sleep apnea 03/30/1996 Statin intolerance 12/24/2016 SVT (supraventricular tachycardia) ([facility]) 10/02/2018 Thoracic aortic aneurysm ([facility]) [address] chest (2014, 2013)--July 09, [address] Unspecified essential hypertension Patient has had since age 33 Vitamin D Deficiency 04/18/2009 Current Outpatient Medications Medication Sig cefUROXime (CEFTIN) 500 mg tablet Take 500 mg by mouth. fluconazole (DIFLUCAN) 150 mg tablet Take 150 mg by mouth. metroNIDAZOLE (FLAGYL) 500 mg tablet Take 500 mg by mouth. ondansetron (ZOFRAN) 4 mg tablet Take 4 mg by mouth three times a day as needed. potassium chloride (K-TAB) 10 mEq tablet Take 1 tablet by mouth once daily as needed (When taking diuretic). DAILY hydrocortisone 2.5 % cream Apply 1 application to affected area three times a day as needed (itchy skin lesion on chest). Apply thin layer as directed torsemide (DEMADEX) 10 mg tablet Take 1 tablet by mouth once daily as needed (edema). Simethicone 125 mg chewable tablet Take 1 tablet by mouth every 6 hours as needed. blood sugar diagnostic (BLOOD GLUCOSE TEST) test strip Test blood sugar 1 time daily. Dx: Type 2 DM - Controlled E11.9 Insulin: No. Lancets Test blood sugar(s) 2 times daily and as needed. To go with lancet pen with glucometer Dx: Type 2 DM - Controlled E11.9 Insulin: No fluticasone (FLONASE) 50 mcg/actuation nasal spray Use 1-2 Sprays in each nostril once daily as needed for cold/allergy symptoms. Takes daily as needed metoprolol tartrate, short acting, (LOPRESSOR) 50 mg tablet Take 1 tablet by mouth two times a day. flash glucose sensor ([employer] ALEX 2 SENSOR) kit 1 Each every 2 weeks. E11.9 DM type 2, Insulin: No furosemide (LASIX) 10 mg/mL solution Take by mouth as directed. azelastine 0.1% nasal spray Use 1 Coleman in each nostril twice daily. flash glucose scanning reader (FREESTYLE ALEX 2 READER) Check sugars at least 4 times daily albuterol HFA (PROVENTIL HFA, VENTOLIN HFA) 90 mcg/actuation inhaler Inhale 1-2 Puffs as instructed every 4 hours as needed (for wheezing and shortness of breath). CPAP Change settings of Auto PAP to 5-15 cm of water with humidification. Continue orders for: Mask (per patient preference) optional chin strap (if indicated) , filters, tubing, humidifier and lifetime supplies. Per patient insurance will not replace supplies - so request repair and provision of loaner CPAP. Lactobacillus acidophilus (PROBIOTIC ORAL) Take by mouth. MULTI-VITAMIN ORAL Take by mouth. COMPOUNDED PRESCRIPTION New CPAP with supplies CPAP pressure 12 cm H2O. 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 aspirin, enteric coated (ASPIRIN, ENTERIC CO (more content not included)... [facility] 10-17-2024 History of Present illness Narrative This note was created using Gifiter. Subjective Whitney Ruiz is a 78 year old female. Patient presents with: ER F/U SUBJECTIVE: Whitney Ruiz is a 78 year old year old lady here today for ER follow up appointment for review of medical conditions. The patient is a 78-year-old female, with a history of diverticulitis and UTI, presenting for follow-up after a recent ER visit. The patient was seen in the ER on the for acute distal sigmoid diverticulitis and a UTI. She was prescribed cefuroxime and metronidazole for 10 days, fluconazole for potential yeast infection, and ondansetron for nausea. She reports feeling some improvement but notes significant fatigue, which she attributes to the medications. She denies any allergies to penicillin but has a known intolerance to Augmentin, causing shortness of breath, and Cipro, causing muscle pain. Prior to the ER visit, she experienced weakness, nausea, and belching, which she initially thought was due to food consumption. She also noted mucous and blood in her stool, which prompted her to seek medical attention. She reports that the pain was not worsening but was persistent and accompanied by back pain, leading her to the ER. She denies any symptoms of a bladder prolapse. She has been following a bland diet, consuming mashed potatoes, noodles, broth, soups, and soft rice. She also reports splitting and breaking fingernails. She has a follow-up appointment with a GI doctor on the . PAST MEDICAL HISTORY Diagnosis Date CAD (coronary artery disease) 04/16/2012 70-80% LAD --had stent placed 09/07/14 Depressive disorder, not elsewhere classified Diverticulitis of colon with hemorrhage 2001 DM w/o Complication Type II 04/05/2009 GERD (gastroesophageal reflux disease) Hiatal hernia Hypertension 03/30/1988 IPF (idiopathic pulmonary fibrosis) ([facility]) Irritable bowel syndrome Occipital neuralgia Osteoarthritis 06/27/2011 Other chronic sinusitis Other osteoporosis Post-nasal drip Situational depression 12/27/2014 Sleep apnea 03/30/1996 Statin intolerance 12/24/2016 SVT (supraventricular tachycardia) ([facility]) 10/02/2018 Thoracic aortic aneurysm ([facility]) [address] chest (2014, 2013)--July 09, [address] Unspecified essential hypertension Patient has had since age 33 Vitamin D Deficiency 04/18/2009 Current Outpatient Medications Medication Sig cefUROXime (CEFTIN) 500 mg tablet Take 500 mg by mouth. fluconazole (DIFLUCAN) 150 mg tablet Take 150 mg by mouth. metroNIDAZOLE (FLAGYL) 500 mg tablet Take 500 mg by mouth. ondansetron (ZOFRAN) 4 mg tablet Take 4 mg by mouth three times a day as needed. potassium chloride (K-TAB) 10 mEq tablet Take 1 tablet by mouth once daily as needed (When taking diuretic). DAILY hydrocortisone 2.5 % cream Apply 1 application to affected area three times a day as needed (itchy skin lesion on chest). Apply thin layer as directed torsemide (DEMADEX) 10 mg tablet Take 1 tablet by mouth once daily as needed (edema). Simethicone 125 mg chewable tablet Take 1 tablet by mouth every 6 hours as needed. blood sugar diagnostic (BLOOD GLUCOSE TEST) test strip Test blood sugar 1 time daily. Dx: Type 2 DM - Controlled E11.9 Insulin: No. Lancets Test blood sugar(s) 2 times daily and as needed. To go with lancet pen with glucometer Dx: Type 2 DM - Controlled E11.9 Insulin: No fluticasone (FLONASE) 50 mcg/actuation nasal spray Use 1-2 Sprays in each nostril once daily as needed for cold/allergy symptoms. Takes daily as needed metoprolol tartrate, short acting, (LOPRESSOR) 50 mg tablet Take 1 tablet by mouth two times a day. flash glucose sensor (FREESTYLE ALEX 2 SENSOR) kit 1 Each every 2 weeks. E11.9 DM type 2, Insulin: No furosemide (LASIX) 10 mg/mL solution Take by mouth as directed. azelastine 0.1% nasal spray Use 1 Coleman in each nostril twice daily. flash glucose scanning reader (FREESTYLE ALEX 2 READER) Check sugars at least 4 times daily albuterol HFA (PROVENTIL HFA, VENTOLIN HFA) 90 mcg/actuation inhaler Inhale 1-2 Puffs as instructed every 4 hours as needed (for wheezing and shortness of breath). CPAP Change settings of Auto PAP to 5-15 cm of water with humidification. Continue orders for: Mask (per patient preference) optional chin strap (if indicated) , filters, tubing, humidifier and lifetime supplies. Per patient insurance will not replace supplies - so request repair and provision of loaner CPAP. Lactobacillus acidophilus (PROBIOTIC ORAL) Take by mouth. MULTI-VITAMIN ORAL Take by mouth. COMPOUNDED PRESCRIPTION New CPAP with supplies CPAP pressure 12 cm H2O. 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 aspirin, enteric coated (ASPIRIN, ENTERIC COATED) 81 mg EC tablet Take 81 mg by mouth once daily. mecobalamin (B12 ACTIVE ORAL) Take by mouth. (Patient not taking: Reported on 07/31/2023) omeprazole (PRILOSEC) 20 mg capsule Take 1 capsule by mouth once daily. as directed COMPOUNDED PRESCRIPTION Powerstep full length original insert (M12.571) Traumatic arthritis of foot, right (primary encounter diagnosis) (Patient not taking: Reported on 09/30/2023) No current facility-administered medications for this visit. Allergies: Codeine Shortness of Breath Vicodin [Hydrocodon* Intolerance Comment:cardiac arrest Adhesive Rash Augmentin [Amoxicil* Shortness of Breath Comment:Called and complained that caused SOB Biaxin [Clarithromy* Mental Status Change Cardizem [Diltiazem] Intolerance Comment:itching Ciprofloxacin Other: See Comments Comment:Muscle pain Clonidine Intolerance Comment:low heart rate to 42; BP also dropped; tried patch and was okay for a while but then stopped since affected thinking Coreg [Carvedilol] Intolerance Comment:grumpy, runny nose Crestor [Rosuvastat* Intolerance Comment:muscle aches all over Cymbalta [Duloxetin* Other: See Comments Comment:Elevated BP and blood sugar went up Dicyclomine Shortness of Breath Diovan [Valsartan] Swelling Comment:In feet, legs & ankles Doxycycline Vomiting Comment:Vomiting after the first dose, intense. Flagyl [Metronidazo* Itching Guaifenesin-Sodium * Intolerance Comment:jittery Levofloxacin Other: See Comments Comment:Muscle pain Losartan Other: See Comments Comment:Made me lose hair. Low back pain, stomach upset Lovastatin Intolerance Comment:Muscle aches all over Mobic [Meloxicam] Comment:lips swell Morphine Itching Comment:possibly was from the IV or tape since was from IV morphine; only affected arm of hand had IV in Nifedipine Intolerance Comment:palpitations; also to see if runny nose resolved (did not) Norvasc [Amlodipine* Swelling Sulfa (Sulfonamide * Rash Ultravist [Iopromid* Other: See Comments Comment:Pt sts with previous cat scan she had delayed chest tightness Review of Systems Objective BP 160/84 Pulse (!) 52 Resp 16 Wt 85.5 kg (188 lb 7.9 oz) BMI 36.76 kg/m Physical Exam Constitutional: Appearance: Normal appearance. HENT: Head: Normocephalic. Eyes: Conjunctiva/sclera: Conjunctivae normal. Cardiovascular: Rate and Rhythm: Normal rate and regular rhythm. Heart sounds: Normal heart sounds. Pulmonary: Effort: Pulmonary effort is normal. Breath sounds: Normal breath sounds. Musculoskeletal: Right lower leg: Edema (1+Ankle) present. Left lower leg: Edema (1+Ankle) present. Skin: General: Skin is warm and dry. Neurological: General: No focal deficit present. Mental Status: She is alert and oriented to person, place, and time. Psychiatric: Mood and Affect: Mood normal. Behavior: Behavior normal. Thought Content: Thought content normal. Judgment: Judgment normal. Assessment and Plan # Acute diverticulitis (K57.92) # Acute cystitis without hematuria (N30.00) - Recent ER visit on the 4th confirmed acute distal sigmoid diverticulitis without abscess or bowel obstruction via CT scan. - Lab results showed mild leukocytosis (WBC 11.4), no anemia (Hgb 13.1, Hct 39.9), normal electrolytes, blood glucose in the 120s, and good renal and hepatic function. - Urinalysis revealed significant pyuria (21-50 WBCs) and bacteriuria, consistent with acute cystitis. - Currently on a 10-day course of cefuroxime and metronidazole; also prescribed fluconazole for potential yeast infection and ondansetron for nausea. - Advised to continue current antibiotic regimen. - Follow-up with GI specialist Dr. Nicole scheduled for the of this month to discuss potential need for colonoscopy and further management. - Educated on dietary modifications to include low-residue foods; patient tolerating mashed potatoes, noodles, soups, and well-cooked rice. # Urge incontinence of urine (N39.41) - Symptoms of urge incontinence noted, with sudden and involuntary urine leakage. - Plans to see Dr. Archer, urologist, for further evaluation and management. - Advised on the use of absorbent pads and practicing Kegel exercises to strengthen pelvic floor muscles. Vitamin D3 deficiency-- Take Vitamin D 3 as discussed. Kristy Brower MD documented in this encounter [facility] 01-11-2024 Emergency department Note Chief Complaint Patient presents with Nausea Amb to ER from home with c/o 7 days of nausea and abdominal pain--states her stool today has mucous and slight amount of blood-- Patient History No past medical history on file. No past surgical history on file. No family history on file. Social History Social History Narrative Not on file Allergies Allergen Reactions Amlodipine Swelling Amoxicillin Other SOB Amoxicillin-Pot Clavulanate Unknown Carvedilol Unknown Ciprofloxacin Unknown Clarithromycin Unknown Clonidine Unknown Codeine Other SOB Dicyclomine Other SOB Diltiazem Hcl Unknown Doxycycline Nausea/vomiting Vomiting after the first dose, intense. Doxylamine Unknown Duloxetine Unknown Guaifenesin Unknown Guaifenesin-Sodium Citrate Other jittery Hydrocodone-Acetaminophen Unknown Iopromide Unknown Levofloxacin Unknown Losartan Unknown Lovastatin Unknown Meloxicam Swelling Metronidazole Itching Morphine Itching Nifedipine Unknown Rosuvastatin Unknown Sulfabenzamide Unknown Valsartan Swelling Adhesive Rash Adhesive Tape-Silicones Rash Sulfa (Sulfonamide Antibiotics) Rash PMH: Reviewed PSH: Reviewed Social History: Reviewed. Allergies reviewed. HPI: Whitney Chong is a 78 y.o. female who presents to the ED today accompanied by her son with complaints of nausea and abdominal pain. Started after taking steroid/antibiotics for sinus infection. No diarrhea. Lots of gas. She noted a small amt of blood and mucus with stool this morning. Denies fevers. REVIEW OF SYSTEMS: All other systems reviewed and negative except as listed in HPI. PHYSICAL EXAM: GENERAL: Vitals noted, no distress. Alert and oriented x 3. Non-toxic. EENT: TMs clear. Posterior oropharynx unremarkable. EOMI, no nystagmus noted. NECK: Supple. No masses. No midline tenderness. No meningeal signs. CARDIAC: Regular rate, rhythm. No murmurs rubs or gallops. No JVD. PULMONARY: Lungs clear and equal bilaterally. No wheezes rales or rhonchi. No respiratory distress. ABDOMEN: Soft, nondistended, and tender diffusely. No peritoneal signs. Bowel sounds are present and normoactive in all 4 quadrants. No pulsatile masses. EXTREMITIES: No peripheral edema. SKIN: No rash. Warm, dry, and intact. NEURO: No focal neurologic deficits. Labs Reviewed COMPREHENSIVE METABOLIC PANEL - Abnormal Result Value Glucose 122 (*) Sodium 141 Potassium 4.7 Chloride 106 Bicarbonate 30 Anion Gap 10 Urea Nitrogen 12 Creatinine 0.58 eGFR >90 Calcium 9.6 Albumin 4.1 Alkaline Phosphatase 59 Total Protein 6.3 (*) AST 11 Bilirubin, Total 0.7 ALT 7 CBC WITH AUTO DIFFERENTIAL - Abnormal WBC 11.4 (*) nRBC 0.0 RBC 4.44 Hemoglobin 13.1 Hematocrit 39.9 MCV 90 MCH 29.5 MCHC 32.8 RDW 13.7 Platelets 277 Neutrophils % 72.2 Immature Granulocytes %, Automated 0.2 Lymphocytes % 13.1 Monocytes % 13.7 Eosinophils % 0.5 Basophils % 0.3 Neutrophils Absolute 8.23 (*) Immature Granulocytes Absolute, Automated 0.02 Lymphocytes Absolute 1.49 Monocytes Absolute 1.56 (*) Eosinophils Absolute 0.06 Basophils Absolute 0.03 URINALYSIS WITH REFLEX CULTURE AND MICROSCOPIC - Abnormal Color, Urine Yellow Appearance, Urine Clear Specific [place], Urine 1.019 pH, Urine 7.5 Protein, Urine 10 (TRACE) Glucose, Urine Normal Blood, Urine NEGATIVE Ketones, Urine NEGATIVE Bilirubin, Urine NEGATIVE Urobilinogen, Urine Normal Nitrite, Urine NEGATIVE Leukocyte Esterase, Urine 500 Sarah/ L (*) MICROSCOPIC ONLY, URINE - Abnormal WBC, Urine 21-50 (*) RBC, Urine 1-2 Squamous Epithelial Cells, Urine 1-9 (SPARSE) Renal Epithelial Cells, Urine 1-2 (FEW) Bacteria, Urine 1+ (*) Mucus, Urine FEW Hyaline Casts, Urine OCCASIONAL (*) LIPASE - Normal Lipase 9 Narrative: Venipuncture immediately after or during the administration of Metamizole may lead to falsely low results. Testing should be performed immediately prior to Metamizole dosing. LACTATE - Normal Lactate 1.1 Narrative: Venipuncture immediately after or during the administration of Metamizole may lead to falsely low results. Testing should be performed immediately prior to Metamizole dosing. URINE CULTURE URINALYSIS WITH REFLEX CULTURE AND MICROSCOPIC Narrative: The following orders were created for panel order Urinalysis with Reflex Culture and Microscopic. Procedure Abnormality Status --------- ------ Urinalysis with Reflex C...[[id number]] Abnormal Final result Extra Urine Keith Tube[[id number]] In process Please view results for these tests on the individual orders. EXTRA URINE KEITH TUBE CT abdomen pelvis wo IV contrast Final Result 1. Findings consistent with a acute distal sigmoid diverticulitis, without abscess or bowel obstruction. Correlate clinically and follow-up as needed. 2. Additional chronic findings as above. Signed by: Parag Landis 01/11/2024 1:50 PM Dictation workstation: [id number] Medical Decision Making ED COURSE: This patient was seen and examined by myself independently. IV established. Labs are obtained and are noted above. She is hydrated with normal saline 500 mL bolus. Medicated with Zofran for nausea. She declined pain medication. Her lab work is essentially unremarkable except for the mild leukocytosis of 11.4. Urinalysis shows 500 leukocytes, 21-50 white blood cells, 1+ bacteria. Culture is pending. CT of the abdomen pelvis shows findings consistent with acute distal sigmoid diverticulitis without abscess or bowel obstruction. Patient has multiple allergies to antibiotics. I discussed with pharmacy to find an acceptable treatment plan. Patient does not know her allergies to Cipro or Levaquin. She did recently take a course of cefdinir, although she had stopped it after 2 days because of an upset stomach although it's unclear if the medication was causing upset stomach or if it was because of the impending diverticulitis. Her allergy to Flagyl is itching. At this point we we will try a course of Ceftin and Flagyl, recommended that she take Benadryl, or use an anti-itch cream if needed. Patient is agreeable to this plan. Also sent a prescription for Zofran and Diflucan by her request. Recommended PCP follow-up care in a week. Return to ED for any new or worsening symptoms. She is discharged home in stable condition with computer instructions given. Differential Diagnoses Considered: Diverticulitis, cholecystitis, pancreatitis, gastritis, colitis, appendicitis Chronic Medical Conditions Significantly Affecting Care: see above External Records Reviewed: I reviewed recent and relevant outside records including: PCP notes, prior discharge summary, previous radiologic studies Diagnostic testing considered: Blood, urine, CT Escalation of Care: Appropriate for outpatient management Prescription Drug Consideration: Ceftin, Flagyl, Zofran, Diflucan Discussion of Management with Other Providers: I discussed the patient/results with: Pharmacy DIAGNOSTIC IMPRESSION: #1 diverticulitis #2 UTI EDEN Weldon 01/11/24 [id number] documented in this encounter [facility] Work Phone: 01-11-2024 Physician Emergency department Note Chief Complaint Patient presents with Nausea Amb to ER from home with c/o 7 days of nausea and abdominal pain--states her stool today has mucous and slight amount of blood-- Patient History No past medical history on file. No past surgical history on file. No family history on file. Social History Social History Narrative Not on file Allergies Allergen Reactions Amlodipine Swelling Amoxicillin Other SOB Amoxicillin-Pot Clavulanate Unknown Carvedilol Unknown Ciprofloxacin Unknown Clarithromycin Unknown Clonidine Unknown Codeine Other SOB Dicyclomine Other SOB Diltiazem Hcl Unknown Doxycycline Nausea/vomiting Vomiting after the first dose, intense. Doxylamine Unknown Duloxetine Unknown Guaifenesin Unknown Guaifenesin-Sodium Citrate Other jittery Hydrocodone-Acetaminophen Unknown Iopromide Unknown Levofloxacin Unknown Losartan Unknown Lovastatin Unknown Meloxicam Swelling Metronidazole Itching Morphine Itching Nifedipine Unknown Rosuvastatin Unknown Sulfabenzamide Unknown Valsartan Swelling Adhesive Rash Adhesive Tape-Silicones Rash Sulfa (Sulfonamide Antibiotics) Rash PMH: Reviewed PSH: Reviewed Social History: Reviewed. Allergies reviewed. HPI: Whitney Chong is a 78 y.o. female who presents to the ED today accompanied by her son with complaints of nausea and abdominal pain. Started after taking steroid/antibiotics for sinus infection. No diarrhea. Lots of gas. She noted a small amt of blood and mucus with stool this morning. Denies fevers. REVIEW OF SYSTEMS: All other systems reviewed and negative except as listed in HPI. PHYSICAL EXAM: GENERAL: Vitals noted, no distress. Alert and oriented x 3. Non-toxic. EENT: TMs clear. Posterior oropharynx unremarkable. EOMI, no nystagmus noted. NECK: Supple. No masses. No midline tenderness. No meningeal signs. CARDIAC: Regular rate, rhythm. No murmurs rubs or gallops. No JVD. PULMONARY: Lungs clear and equal bilaterally. No wheezes rales or rhonchi. No respiratory distress. ABDOMEN: Soft, nondistended, and tender diffusely. No peritoneal signs. Bowel sounds are present and normoactive in all 4 quadrants. No pulsatile masses. EXTREMITIES: No peripheral edema. SKIN: No rash. Warm, dry, and intact. NEURO: No focal neurologic deficits. Labs Reviewed COMPREHENSIVE METABOLIC PANEL - Abnormal Result Value Glucose 122 (*) Sodium 141 Potassium 4.7 Chloride 106 Bicarbonate 30 Anion Gap 10 Urea Nitrogen 12 Creatinine 0.58 eGFR >90 Calcium 9.6 Albumin 4.1 Alkaline Phosphatase 59 Total Protein 6.3 (*) AST 11 Bilirubin, Total 0.7 ALT 7 CBC WITH AUTO DIFFERENTIAL - Abnormal WBC 11.4 (*) nRBC 0.0 RBC 4.44 Hemoglobin 13.1 Hematocrit 39.9 MCV 90 MCH 29.5 MCHC 32.8 RDW 13.7 Platelets 277 Neutrophils % 72.2 Immature Granulocytes %, Automated 0.2 Lymphocytes % 13.1 Monocytes % 13.7 Eosinophils % 0.5 Basophils % 0.3 Neutrophils Absolute 8.23 (*) Immature Granulocytes Absolute, Automated 0.02 Lymphocytes Absolute 1.49 Monocytes Absolute 1.56 (*) Eosinophils Absolute 0.06 Basophils Absolute 0.03 URINALYSIS WITH REFLEX CULTURE AND MICROSCOPIC - Abnormal Color, Urine Yellow Appearance, Urine Clear Specific [place], Urine 1.019 pH, Urine 7.5 Protein, Urine 10 (TRACE) Glucose, Urine Normal Blood, Urine NEGATIVE Ketones, Urine NEGATIVE Bilirubin, Urine NEGATIVE Urobilinogen, Urine Normal Nitrite, Urine NEGATIVE Leukocyte Esterase, Urine 500 Sarah/ L (*) MICROSCOPIC ONLY, URINE - Abnormal WBC, Urine 21-50 (*) RBC, Urine 1-2 Squamous Epithelial Cells, Urine 1-9 (SPARSE) Renal Epithelial Cells, Urine 1-2 (FEW) Bacteria, Urine 1+ (*) Mucus, Urine FEW Hyaline Casts, Urine OCCASIONAL (*) LIPASE - Normal Lipase 9 Narrative: Venipuncture immediately after or during the administration of Metamizole may lead to falsely low results. Testing should be performed immediately prior to Metamizole dosing. LACTATE - Normal Lactate 1.1 Narrative: Venipuncture immediately after or during the administration of Metamizole may lead to falsely low results. Testing should be performed immediately prior to Metamizole dosing. URINE CULTURE URINALYSIS WITH REFLEX CULTURE AND MICROSCOPIC Narrative: The following orders were created for panel order Urinalysis with Reflex Culture and Microscopic. Procedure Abnormality Status --------- ------ Urinalysis with Reflex C...[[id number]] Abnormal Final result Extra Urine Keith Tube[[id number]] In process Please view results for these tests on the individual orders. EXTRA URINE KEITH TUBE CT abdomen pelvis wo IV contrast Final Result 1. Findings consistent with a acute distal sigmoid diverticulitis, without abscess or bowel obstruction. Correlate clinically and follow-up as needed. 2. Additional chronic findings as above. Signed by: Parag Landis 01/11/2024 1:50 PM Dictation workstation: [id number] Medical Decision Making ED COURSE: This patient was seen and examined by myself independently. IV established. Labs are obtained and are noted above. She is hydrated with normal saline 500 mL bolus. Medicated with Zofran for nausea. She declined pain medication. Her lab work is essentially unremarkable except for the mild leukocytosis of 11.4. Urinalysis shows 500 leukocytes, 21-50 white blood cells, 1+ bacteria. Culture is pending. CT of the abdomen pelvis shows findings consistent with acute distal sigmoid diverticulitis without abscess or bowel obstruction. Patient has multiple allergies to antibiotics. I discussed with pharmacy to find an acceptable treatment plan. Patient does not know her allergies to Cipro or Levaquin. She did recently take a course of cefdinir, although she had stopped it after 2 days because of an upset stomach although it's unclear if the medication was causing upset stomach or if it was because of the impending diverticulitis. Her allergy to Flagyl is itching. At this point we we will try a course of Ceftin and Flagyl, recommended that she take Benadryl, or use an anti-itch cream if needed. Patient is agreeable to this plan. Also sent a prescription for Zofran and Diflucan by her request. Recommended PCP follow-up care in a week. Return to ED for any new or worsening symptoms. She is discharged home in stable condition with computer instructions given. Differential Diagnoses Considered: Diverticulitis, cholecystitis, pancreatitis, gastritis, colitis, appendicitis Chronic Medical Conditions Significantly Affecting Care: see above External Records Reviewed: I reviewed recent and relevant outside records including: PCP notes, prior discharge summary, previous radiologic studies Diagnostic testing considered: Blood, urine, CT Escalation of Care: Appropriate for outpatient management Prescription Drug Consideration: Ceftin, Flagyl, Zofran, Diflucan Discussion of Management with Other Providers: I discussed the patient/results with: Pharmacy DIAGNOSTIC IMPRESSION: #1 diverticulitis #2 UTI EDEN Weldon 01/11/24 1509 [facility] Work Phone: 12-25-2023 Note HNO ID: [id number] Author: KOJO FREDERICK APRN.JACKIE Service: ? Author Type: Nurse Practitioner Type: Progress Notes Filed: 12/25/2023 14:52 Note Text: SUBJECTIVE Whitney Ruiz is a 78 year old female here today for acute concern. Chief Complaint Patient presents with: Pain: across mid back and into right shoulder fatigue HPI Whitney Ruiz is a 78 year old female. She is an established patient of Kristy Brower MD. Here today for acute concern of fatigue and pain. Fatigue not improving, very bothersome. Feels tired all of the time. Had labs in October, okay with updating them. Issues with her chronic thoracic back pain on the right, right shoulder and rib pain. Hard to do tasks. Has seen ortho previously for this. Percocet has been helpful in the past. Her medications were reviewed today and her list is now up to date. Medications Current Outpatient Medications Medication Sig potassium chloride (K-TAB) 10 mEq tablet Take 1 tablet by mouth once daily as needed (When taking diuretic). DAILY hydrocortisone 2.5 % cream Apply 1 application to affected area three times a day as needed (itchy skin lesion on chest). Apply thin layer as directed torsemide (DEMADEX) 10 mg tablet Take 1 tablet by mouth once daily as needed (edema). Simethicone 125 mg chewable tablet Take 1 tablet by mouth every 6 hours as needed. fluticasone (FLONASE) 50 mcg/actuation nasal spray Use 1-2 Sprays in each nostril once daily as needed for cold/allergy symptoms. Takes daily as needed metoprolol tartrate, short acting, (LOPRESSOR) 50 mg tablet Take 1 tablet by mouth two times a day. furosemide (LASIX) 10 mg/mL solution Take by mouth as directed. azelastine 0.1% nasal spray Use 1 Coleman in each nostril twice daily. omeprazole (PRILOSEC) 20 mg capsule Take 1 capsule by mouth once daily. as directed albuterol HFA (PROVENTIL HFA, VENTOLIN HFA) 90 mcg/actuation inhaler Inhale 1-2 Puffs as instructed every 4 hours as needed (for wheezing and shortness of breath). Lactobacillus acidophilus (PROBIOTIC ORAL) Take by mouth. MULTI-VITAMIN ORAL Take by mouth. ACETAMINOPHEN (TYLENOL ORAL) Take 500 mg by mouth as needed. aspirin, enteric coated (ASPIRIN, ENTERIC COATED) 81 mg EC tablet Take 81 mg by mouth once daily. oxyCODONE-acetaminophen (PERCOCET) 5-325 mg tablet Take 1 tablet by mouth every 6 hours as needed for pain for up to 7 days. blood sugar diagnostic (BLOOD GLUCOSE TEST) test strip Test blood sugar 1 time daily. Dx: Type 2 DM - Controlled E11.9 Insulin: No. Lancets Test blood sugar(s) 2 times daily and as needed. To go with lancet pen with glucometer Dx: Type 2 DM - Controlled E11.9 Insulin: No flash glucose sensor (FREESTYLE ALEX 2 SENSOR) kit 1 Each every 2 weeks. E11.9 DM type 2, Insulin: No [facility] NASAL OINTMENT Apply to affected area two times a day. mecobalamin (B12 ACTIVE ORAL) Take by mouth. (Patient not taking: Reported on 07/31/2023) flash glucose scanning reader (FREESTYLE ALEX 2 READER) Check sugars at least 4 times daily CPAP Change settings of Auto PAP to 5-15 cm of water with humidification. Continue orders for: Mask (per patient preference) optional chin strap (if indicated) , filters, tubing, humidifier and lifetime supplies. Per patient insurance will not replace supplies - so request repair and provision of loaner CPAP. COMPOUNDED PRESCRIPTION Powerstep full length original insert (M12.571) Traumatic arthritis of foot, right (primary encounter diagnosis) (Patient not taking: Reported on 09/30/2023) COMPOUNDED PRESCRIPTION New CPAP with supplies CPAP pressure 12 cm H2O. 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 ALLERGIES Allergen Reactions Codeine Shortness of Breath Vicodin [Hydrocodon* Intolerance cardiac arrest Adhesive Rash Augmentin [Amoxicil* Shortness of Breath Called and complained that caused SOB Biaxin [Clarithromy* Mental Status Change Cardizem [Diltiazem] Intolerance itching Ciprofloxacin Other: See Comments Muscle pain Clonidine Intolerance low heart rate to 42; BP also dropped; tried patch and was okay for a while but then stopped since affected thinking Coreg [Carvedilol] Intolerance grumpy, runny nose Crestor [Rosuvastat* Intolerance muscle aches all over Cymbalta [Duloxetin* Other: See Comments Elevated BP and blood sugar went up Dicyclomine Shortness of Breath Diovan [Valsartan] Swelling In feet, legs AND ankles Doxycycline Vomiting Vomiting after the first dose, intense. Flagyl [Metronidazo* Itching Guaifenesin-Sodium * Intolerance jittery Levofloxacin Other: See Comments Muscle pain Losartan Other: See Comments Made me lose hair. Low back pain, stomach upset Lovastatin Intolerance Muscle aches all over Mobic [Meloxicam] lips swell Morphine Itching possibly was from the IV or tape since was from IV morphine; only a (more content not included)... [facility] 12-25-2023 History of Present illness Narrative SUBJECTIVE Whitney Ruiz is a 78 year old female here today for acute concern. Chief Complaint Patient presents with: Pain: across mid back and into right shoulder fatigue HPI Whitney Ruiz is a 78 year old female. She is an established patient of Kristy Brower MD. Here today for acute concern of fatigue and pain. Fatigue not improving, very bothersome. Feels tired all of the time. Had labs in October, okay with updating them. Issues with her chronic thoracic back pain on the right, right shoulder and rib pain. Hard to do tasks. Has seen ortho previously for this. Percocet has been helpful in the past. Her medications were reviewed today and her list is now up to date. Medications Current Outpatient Medications Medication Sig potassium chloride (K-TAB) 10 mEq tablet Take 1 tablet by mouth once daily as needed (When taking diuretic). DAILY hydrocortisone 2.5 % cream Apply 1 application to affected area three times a day as needed (itchy skin lesion on chest). Apply thin layer as directed torsemide (DEMADEX) 10 mg tablet Take 1 tablet by mouth once daily as needed (edema). Simethicone 125 mg chewable tablet Take 1 tablet by mouth every 6 hours as needed. fluticasone (FLONASE) 50 mcg/actuation nasal spray Use 1-2 Sprays in each nostril once daily as needed for cold/allergy symptoms. Takes daily as needed metoprolol tartrate, short acting, (LOPRESSOR) 50 mg tablet Take 1 tablet by mouth two times a day. furosemide (LASIX) 10 mg/mL solution Take by mouth as directed. azelastine 0.1% nasal spray Use 1 Coleman in each nostril twice daily. omeprazole (PRILOSEC) 20 mg capsule Take 1 capsule by mouth once daily. as directed albuterol HFA (PROVENTIL HFA, VENTOLIN HFA) 90 mcg/actuation inhaler Inhale 1-2 Puffs as instructed every 4 hours as needed (for wheezing and shortness of breath). Lactobacillus acidophilus (PROBIOTIC ORAL) Take by mouth. MULTI-VITAMIN ORAL Take by mouth. ACETAMINOPHEN (TYLENOL ORAL) Take 500 mg by mouth as needed. aspirin, enteric coated (ASPIRIN, ENTERIC COATED) 81 mg EC tablet Take 81 mg by mouth once daily. oxyCODONE-acetaminophen (PERCOCET) 5-325 mg tablet Take 1 tablet by mouth every 6 hours as needed for pain for up to 7 days. blood sugar diagnostic (BLOOD GLUCOSE TEST) test strip Test blood sugar 1 time daily. Dx: Type 2 DM - Controlled E11.9 Insulin: No. Lancets Test blood sugar(s) 2 times daily and as needed. To go with lancet pen with glucometer Dx: Type 2 DM - Controlled E11.9 Insulin: No flash glucose sensor (FREESTYLE ALEX 2 SENSOR) kit 1 Each every 2 weeks. E11.9 DM type 2, Insulin: No [facility] NASAL OINTMENT Apply to affected area two times a day. mecobalamin (B12 ACTIVE ORAL) Take by mouth. (Patient not taking: Reported on 07/31/2023) flash glucose scanning reader ([employer] ALEX 2 READER) Check sugars at least 4 times daily CPAP Change settings of Auto PAP to 5-15 cm of water with humidification. Continue orders for: Mask (per patient preference) optional chin strap (if indicated) , filters, tubing, humidifier and lifetime supplies. Per patient insurance will not replace supplies - so request repair and provision of loaner CPAP. COMPOUNDED PRESCRIPTION Powerstep full length original insert (M12.571) Traumatic arthritis of foot, right (primary encounter diagnosis) (Patient not taking: Reported on 09/30/2023) COMPOUNDED PRESCRIPTION New CPAP with supplies CPAP pressure 12 cm H2O. 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 ALLERGIES Allergen Reactions Codeine Shortness of Breath Vicodin [Hydrocodon* Intolerance cardiac arrest Adhesive Rash Augmentin [Amoxicil* Shortness of Breath Called and complained that caused SOB Biaxin [Clarithromy* Mental Status Change Cardizem [Diltiazem] Intolerance itching Ciprofloxacin Other: See Comments Muscle pain Clonidine Intolerance low heart rate to 42; BP also dropped; tried patch and was okay for a while but then stopped since affected thinking Coreg [Carvedilol] Intolerance grumpy, runny nose Crestor [Rosuvastat* Intolerance muscle aches all over Cymbalta [Duloxetin* Other: See Comments Elevated BP and blood sugar went up Dicyclomine Shortness of Breath Diovan [Valsartan] Swelling In feet, legs & ankles Doxycycline Vomiting Vomiting after the first dose, intense. Flagyl [Metronidazo* Itching Guaifenesin-Sodium * Intolerance jittery Levofloxacin Other: See Comments Muscle pain Losartan Other: See Comments Made me lose hair. Low back pain, stomach upset Lovastatin Intolerance Muscle aches all over Mobic [Meloxicam] lips swell Morphine Itching possibly was from the IV or tape since was from IV morphine; only affected arm of hand had IV in Nifedipine Intolerance palpitations; also to see if runny nose resolved (did not) Norvasc [Amlodipine* Swelling Sulfa (Sulfonamide * Rash Ultravist [Iopromid* Other: See Comments Pt sts with previous cat scan she had delayed chest tightness ACTIVE PROBLEM LIST Ipf (Idiopathic Pulmonary Fibrosis) ([facility]) - 05/05/2023 Svt (Supraventricular Tachycardia) ([facility]) - 08/18/2022 Obesity, Class II, Bmi 35-39.9 - 08/18/2022 Ild (Interstitial Lung Disease) ([facility]) - 09/29/2019 History of Supraventricular Tachycardia - 10/24/2018 Pvc's (Premature Ventricular Contractions) - 10/02/2018 Premature Atrial Contractions - 10/02/2018 Palpitations - 10/02/2018 Lung Nodule - 01/23/2017 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 Perry managing; biopsy 02/29/12 Shortness of Breath On Exertion - 10/27/2013 Comment: Has been having SOB for a long time but worse in the last 1 week, 2 weeks ago she had throat drainage and soreness, She had a culture which was negative She was given ABX on Thursday Developed a fever after that so she cont taking the abx although she initially didn't want to Lipoma of Unspecified Site - 01/13/2013 Abdominal Mass - 12/23/2012 Osteopenia - 12/14/2012 Comment: [facility] 10/2012 osteopenia, outside BMD in 2010 also showed osteopenia Occipital Neuralgia - 09/29/2012 Coronary Artery Disease Involving [place] Coronary Artery of [place] Heart Without Angina Pectoris - 04/16/2012 Personal History of Colonic Polyps - 01/07/2012 Osteoarthritis - 06/27/2011 Comment: Dr. Cuellar, rheumatology in [address] Other Hammer Toe (Acquired) - 04/21/2011 Ddd (Degenerative Disc Disease), Cervical - 04/11/2011 Comment: hx sciatica Cervical Spondylosis Without Myelopathy - 01/31/2011 Porokeratosis - 12/18/2010 Vitamin D Deficiency - 04/18/2009 Hyperlipidemia - 04/05/2009 Gerd (Gastroesophageal Reflux Disease) Obstructive Sleep Apnea - 10/12/2007 Comment: KIRAN Gonzales at [facility] oversees PAP use Essential Hypertension - 04/01/2007 Mild Intermittent Asthma With Acute Exacerbation Diaphragmatic Hernia Comment: Hiatal hernia Social History Tobacco Use Smoking status: Former Current packs/day: 0.00 Average packs/day: 1 pack/day for 12.0 years (12.0 ttl pk-yrs) Types: Cigarettes Start date: 02/21/1963 Quit date: 03/30/1972 Years since quittin.7 Smokeless tobacco: Never Tobacco comments: Mother smoked in childhood home, spouse of 45 years also smoked in home. Vaping Use Vaping status: Never Used Substance Use Topics Alcohol use: No Drug use: No Review of Systems Constitutional: Positive for fatigue. Respiratory: Negative. Cardiovascular: Negative. Musculoskeletal: Positive for arthralgias, back pain and myalgias. OBJECTIVE BP 166/92 Pulse 57 Wt 188 lb 7.9 oz (85.5kg) SpO2 98% Physical Exam Vitals and nursing note reviewed. Constitutional: General: She is awake. She is not in acute distress. Appearance: Normal appearance. She is well-developed and well-groomed. She is not ill-appearing, toxic-appearing or diaphoretic. HENT: Head: Normocephalic. Right Ear: External ear normal. Left Ear: External ear normal. Nose: Nose normal. Eyes: General: Vision grossly intact. Conjunctiva/sclera: Conjunctivae normal. Pupils: Pupils are equal, round, and reactive to light. Neck: Vascular: No JVD. Trachea: Trachea normal. Cardiovascular: Rate and Rhythm: Normal rate and regular rhythm. Pulses: Normal pulses. Heart sounds: Normal heart sounds. No murmur heard. Pulmonary: Effort: Pulmonary effort is normal. No accessory muscle usage, prolonged expiration or respiratory distress. Breath sounds: Normal breath sounds. Musculoskeletal: Cervical back: Neck supple. Skin: General: Skin is warm and dry. Capillary Refill: Capillary refill takes less than 2 seconds. Neurological: General: No focal deficit present. Mental Status: She is alert and oriented to person, place, and time. Mental status is at baseline. Psychiatric: Attention and Perception: Attention and perception normal. Mood and Affect: Mood and affect normal. Speech: Speech normal. Behavior: Behavior normal. Behavior is cooperative. Thought Content: Thought content normal. Cognition and Memory: Cognition and memory normal. Judgment: Judgment normal. ASSESSMENT/PLAN: 1. Other fatigue - ICD9: 780.79, ICD10: R53.83 (primary diagnosis) Update labs and check urine dip to rule out UTI - COMPLETE BLOOD COUNT AND DIFFERENTIAL - IRON AND TIBC - COMPREHENSIVE METABOLIC PANEL - MAGNESIUM - VITAMIN B12 - FERRITIN - THYROID STIMULATING HORMONE - URINALYSIS, WITH MICROSCOPIC - URINE CULTURE 2. Chronic bilateral thoracic back pain - ICD9: 724.1, 338.29, ICD10: M54.6, G89.29 Short term PRN percocet script./ PDMP website checked and validated. All prescriptions have been APPROPRIATELY filled. No suspicious activity was identified. 12/25/2023 by Kojo Frederick APRN.CIRCUIT TESTER - OXYCODONE-ACETAMINOPHEN 5 MG-325 MG TABLET 3. High calcium levels - ICD9: 275.42, ICD10: E83.52 - COMPREHENSIVE METABOLIC PANEL - PTH INTACT 4. Vitamin D deficiency - ICD9: 268.9, ICD10: E55.9 - VITAMIN D 25 HYDROXY 5. Type 2 diabetes mellitus with diabetic neuropathy, without long-term current use of insulin (HCC) - ICD9: 250.60, 357.2, ICD10: E11.40 - ALBUMIN/CREATININE RATIO, URINE 6. Encounter for therapeutic drug monitoring - ICD9: V58.83, ICD10: Z51.81 Portions of this note have been entered by ancillary staff. I have reviewed and when necessary edited, so that they are an adequate record of my encounter with this patient Please note that parts of this document were created using voice recognition software and therefore may contain grammatical errors. Patient verbalizes understanding of instructions from today's visit and in agreement with treatment plan. Questions answered. Agrees to call the office if questions, concerns of issues with acute symptoms not improving or if they worsen. See diagnoses and orders for additional plan(s). Allergies and medications were reviewed, list was updated, and refills given if needed. Past medical, surgical, social, and family history reviewed and updated as appropriate. Encouraged proper diet & exercise as well as compliance with taking medications. Age-appropriate health preventative measures were discussed. Return if symptoms worsen or fail to improve, for Keep next scheduled appointment.. Kojo Frederick APRN-CIRCUIT TESTER documented in this encounter [facility] 12-24-2023 Telephone encounter Note The following approved medication requests have been transmitted electronically. Requested Prescriptions Pending Prescriptions Disp Refills potassium chloride (K-TAB) 10 mEq tablet 30 tablet 1 Sig: Take 1 tablet by mouth once daily as needed (When taking diuretic). DAILY Kristy Brower MD [facility] 12-24-2023 Miscellaneous Notes The following approved medication requests have been transmitted electronically. Requested Prescriptions Pending Prescriptions Disp Refills potassium chloride (K-TAB) 10 mEq tablet 30 tablet 1 Sig: Take 1 tablet by mouth once daily as needed (When taking diuretic). DAILY Kristy Brower MD Patient has been identified by name and date of : Yes Patient phones for refill(s): Requested Prescriptions Pending Prescriptions Disp Refills potassium chloride (K-TAB) 10 mEq tablet 30 tablet 1 Sig: Take 1 tablet by mouth once daily as needed (When taking diuretic). DAILY Date of last office visit in primary care: 11/11/2023 Date of next office visit in primary care: 02/24/2024 Please advise. Thank you. Sadia Small LPN. documented in this encounter [facility] 12-24-2023 Telephone encounter Note Patient has been identified by name and date of : Yes Patient phones for refill(s): Requested Prescriptions Pending Prescriptions Disp Refills potassium chloride (K-TAB) 10 mEq tablet 30 tablet 1 Sig: Take 1 tablet by mouth once daily as needed (When taking diuretic). DAILY Date of last office visit in primary care: 11/11/2023 Date of next office visit in primary care: 02/24/2024 Please advise. Thank you. Sadia Small LPN. [facility] 12-11-2023 Telephone encounter Note Attempted to contact patient but no answer and voice mailbox is full. Mychart message sent [facility] 12-11-2023 Miscellaneous Notes Attempted to contact patient but no answer and voice mailbox is full. Mychart message sent IT looks like she has taken cefdinir in the past and tolerated this well. Script for cefdinir sent to [facility]. Please let her know. Thanks. Patient returned call and went over notes from Kojo Frederick BREAD WRAPPER OPERATOR, patient said symptoms have been persistent, she does not feel comfortable taking Clindamycin rx. Patient asking for something else, fear of getting C-diff. Patient uses [facility] for her pharmacy. Please advise Attempted to call, vm is full, will try again later. Sadia Small LPN Please see if symptoms have improved any at this point or if still persistent? If still having issues we can send the clindamycin at this time but if getting better then I would not recommend it. Pt calls to report provider prescribed prednisone 10 mg taper for sinus problem. Pt reports she finished prednisone and it did not help sinus problem. Pt reports she still has nasal congestion, sinus and head pressure. Pt denies fever. Pt reports provider had stated if prednisone did not work then provider may prescribe clindamycin. Pt reports she read the side effects of clindamycin on an older person and does not want to take it if there is something else that can be prescribed. Roula Morales LPN documented in this encounter [facility] 12-11-2023 Telephone encounter Note IT looks like she has taken cefdinir in the past and tolerated this well. Script for cefdinir sent to [facility]. Please let her know. Thanks. [facility] 12-10-2023 Telephone encounter Note Patient returned call and went over notes from Kojo Frederick BREAD WRAPPER OPERATOR, patient said symptoms have been persistent, she does not feel comfortable taking Clindamycin rx. Patient asking for something else, fear of getting C-diff. Patient uses [facility] for her pharmacy. Please advise [facility] 12-10-2023 Telephone encounter Note Attempted to call, vm is full, will try again later. Sadia Small LPN [facility] 12-10-2023 Telephone encounter Note Please see if symptoms have improved any at this point or if still persistent? If still having issues we can send the clindamycin at this time but if getting better then I would not recommend it. [facility] 12-07-2023 Telephone encounter Note Pt calls to report provider prescribed prednisone 10 mg taper for sinus problem. Pt reports she finished prednisone and it did not help sinus problem. Pt reports she still has nasal congestion, sinus and head pressure. Pt denies fever. Pt reports provider had stated if prednisone did not work then provider may prescribe clindamycin. Pt reports she read the side effects of clindamycin on an older person and does not want to take it if there is something else that can be prescribed. Roula Morales LPN [facility] 11-25-2023 Telephone encounter Note Handed to patient. [facility] 11-25-2023 Miscellaneous Notes Handed to patient. Whitney is needing an updated handicap placard. documented in this encounter [facility] 11-25-2023 Telephone encounter Note Whitney is needing an updated handicap placard. [facility] 11-14-2023 Telephone encounter Note Below noted. Agree with advice given. Glad patient feeling better [facility] 11-14-2023 Miscellaneous Notes Below noted. Agree with advice given. Glad patient feeling better Patient reports she started prednisone taper on 11-11-23. Reports it has been disturbing her sleep (takes the prednisone early in the day) feels more hungry, but her shoulder and legs feel better. Advised patient the prednisone may disrupt her sleep but that will get better once she starts to go to the lower dose, advised the prednisone will make her feel hungry and to make sure she is picking healthy choices when she eats. Advised the side effects will go away once she completes the medication. Patient agreeable to continue the prednisone and will call back with any concerns. documented in this encounter [facility] 11-14-2023 Telephone encounter Note Patient reports she started prednisone taper on 11-11-23. Reports it has been disturbing her sleep (takes the prednisone early in the day) feels more hungry, but her shoulder and legs feel better. Advised patient the prednisone may disrupt her sleep but that will get better once she starts to go to the lower dose, advised the prednisone will make her feel hungry and to make sure she is picking healthy choices when she eats. Advised the side effects will go away once she completes the medication. Patient agreeable to continue the prednisone and will call back with any concerns. [facility] 11-11-2023 History of Present illness Narrative This note was created using [employer]. Subjective Whitney Ruiz is a 78 year old female. Patient presents with: F/U 3 Month SUBJECTIVE: Whitney Ruiz is a 78 year old year old lady here today for 3 month follow up appointment for review of medical conditions. Issues needed to discuss included: Shoulder pain Sinuses Skin lesion on breast Back pain worse Patient is an 78-year-old female presenting with multiple concerns, including right shoulder pain, sinus issues, and changes in moles on her right breast. Patient reports persistent right shoulder pain, which has worsened since her last x-ray. The pain is described as a burning sensation, particularly when reaching up to get something. She has not seen an orthopedist for this issue recently but was seen by Dr. Ceron in 2016 for the same shoulder. She also experiences stiffness and pain in her legs after sitting for as little as 5-10 minutes, making it difficult to straighten her legs. Patient has chronic sinus issues, with pain in the temporal areas and soreness in the right brow and inside her nose. She had to stop taking Cefdinir after only three doses due to severe stomach pain. She has seen Dr. Perry for her sinuses in the past, who recommended Nasonex and sinus rinses. She is currently using Flonase and has tried various other nasal sprays, but none have provided significant relief. She also experiences hoarseness and a sore throat due to sinus drainage. Patient has two moles on her right breast that have changed in appearance and are now itchy. She has an appointment with a planting supervisor at [facility] on the . She has been applying alcohol to the moles to soothe the itching but has not tried hydrocortisone. Patient also reports chronic itching on her back, which has not improved. She has been using Temovate for itching in other areas but not on her back. She also mentions taking torsemide for swelling and requests a refill. PAST MEDICAL HISTORY 04/16/2012: CAD (coronary artery disease) Comment: 70-80% LAD --had stent placed 09/07/14 No date: Depressive disorder, not elsewhere classified 2001: Diverticulitis of colon with hemorrhage 04/05/2009: DM w/o Complication Type II No date: GERD (gastroesophageal reflux disease) No date: Hiatal hernia 03/30/1988: Hypertension No date: IPF (idiopathic pulmonary fibrosis) ([facility]) No date: Irritable bowel syndrome No date: Occipital neuralgia 06/27/2011: Osteoarthritis No date: Other chronic sinusitis No date: Other osteoporosis No date: Post-nasal drip 12/27/2014: Situational depression 03/30/1996: Sleep apnea 12/24/2016: Statin intolerance 10/02/2018: SVT (supraventricular tachycardia) ([facility]) No date: Thoracic aortic aneurysm ([facility]) Comment: [address] chest (2014, 2013)--July 09, [address] No date: Unspecified essential hypertension Comment: Patient has had since age 33 04/18/2009: Vitamin D Deficiency Current Outpatient Medications Medication Sig blood sugar diagnostic (BLOOD GLUCOSE TEST) test strip Test blood sugar 1 time daily. Dx: Type 2 DM - Controlled E11.9 Insulin: No. Lancets Test blood sugar(s) 2 times daily and as needed. To go with lancet pen with glucometer Dx: Type 2 DM - Controlled E11.9 Insulin: No clobetasol (TEMOVATE) 0.05 % ointment Apply 1 application to affected area two times a day as needed. TO AFFECTED AREA. fluticasone (FLONASE) 50 mcg/actuation nasal spray Use 1-2 Sprays in each nostril once daily as needed for cold/allergy symptoms. Takes daily as needed torsemide (DEMADEX) 10 mg tablet Take 1 tablet by mouth once daily as needed (edema). ipratropium bromide (ATROVENT) 42 mcg (0.06 %) nasal spray Use 2 Sprays in the nose four times a day as needed (Sinus and nasal congestion and runny nose). metoprolol tartrate, short acting, (LOPRESSOR) 50 mg tablet Take 1 tablet by mouth two times a day. Simethicone 125 mg chewable tablet Take 1 tablet by mouth every 6 hours as needed. flash glucose sensor (FREESTYLE ALEX 2 SENSOR) kit 1 Each every 2 weeks. E11.9 DM type 2, Insulin: No furosemide (LASIX) 10 mg/mL solution Take by mouth as directed. [facility] NASAL OINTMENT Apply to affected area two times a day. azelastine 0.1% nasal spray Use 1 Coleman in each nostril twice daily. omeprazole (PRILOSEC) 20 mg capsule Take 1 capsule by mouth once daily. as directed flash glucose scanning reader (FREESTYLE ALEX 2 READER) Check sugars at least 4 times daily albuterol HFA (PROVENTIL HFA, VENTOLIN HFA) 90 mcg/actuation inhaler Inhale 1-2 Puffs as instructed every 4 hours as needed (for wheezing and shortness of breath). potassium chloride (K-TAB) 10 mEq tablet Take 1 tablet by mouth once daily as needed (When taking diuretic). DAILY CPAP Change settings of Auto PAP to 5-15 cm of water with humidification. Continue orders for: Mask (per patient preference) optional chin strap (if indicated) , filters, tubing, humidifier and lifetime supplies. Per patient insurance will not replace supplies - so request repair and provision of loaner CPAP. Lactobacillus acidophilus (PROBIOTIC ORAL) Take by mouth. MULTI-VITAMIN ORAL Take by mouth. ACETAMINOPHEN (TYLENOL ORAL) Take 500 mg by mouth as needed. aspirin, enteric coated (ASPIRIN, ENTERIC COATED) 81 mg EC tablet Take 81 mg by mouth once daily. cetirizine (ZYRTEC) 10 mg tablet Take 1 tablet by mouth at bedtime as needed (Itching as well as allergy symptoms). (Patient not taking: Reported on 11/11/2023) loratadine (CLARITIN) 10 mg tablet Take 1-2 tablets by mouth once daily as needed (Itching of back). (Patient not taking: Reported on 11/11/2023) nystatin (MYCOSTATIN) powder Apply 1 application to affected area four times daily. As directed (Patient not taking: Reported on 09/30/2023) L. acidophilus/Bifid. animalis 15.5 billion cell cap Take by mouth. (Patient not taking: Reported on 01/28/2023) mecobalamin (B12 ACTIVE ORAL) Take by mouth. (Patient not taking: Reported on 07/31/2023) COMPOUNDED PRESCRIPTION Powerstep full length original insert (M12.571) Traumatic arthritis of foot, right (primary encounter diagnosis) (Patient not taking: Reported on 09/30/2023) COMPOUNDED PRESCRIPTION New CPAP with supplies CPAP pressure 12 cm H2O. 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 Review of Systems Objective BP 122/88 Pulse (!) 52 Temp 36.8 C (98.2 F) Resp 16 Wt 85.9 kg (189 lb 6 oz) SpO2 97% BMI 36.94 kg/m Physical Exam Constitutional: Appearance: Normal appearance. HENT: Head: Normocephalic. Comments: Sinus tenderness--frontal and right maxillary Eyes: Conjunctiva/sclera: Conjunctivae normal. Cardiovascular: Rate and Rhythm: Normal rate and regular rhythm. Heart sounds: Normal heart sounds. Pulmonary: Effort: Pulmonary effort is normal. Breath sounds: Normal breath sounds. Skin: General: Skin is warm and dry. Neurological: General: No focal deficit present. Mental Status: She is alert and oriented to person, place, and time. Psychiatric: Mood and Affect: Mood normal. Behavior: Behavior normal. Thought Content: Thought content normal. Judgment: Judgment normal. Hemoglobin A1C (%) Date Value 07/31/2023 6.5 03/24/2023 6.6 10/15/2022 6.4 06/19/2022 5.8 04/07/2022 6.3 01/28/2021 6.7 05/22/2020 6.7 01/24/2020 7.0 10/12/2019 6.9 10/12/2019 7.0 Assessment and Plan Type 2 diabetes mellitus with diabetic neuropathy, without long-term current use of insulin ([facility]): - Blood sugar levels monitored; recent fasting blood sugar was 149 mg/dL. - A1c to be updated with current labs. - Patient advised to maintain dietary control, especially avoiding high carbohydrate foods. Essential hypertension: - Blood pressure management discussed. - No specific changes to current antihypertensive regimen mentioned. Vitamin D deficiency: - Vitamin D level to be checked with current labs. Chronic bilateral thoracic back pain: - Patient reports ongoing back pain, possibly related to gastrointestinal issues. - Advised to use mild hydrocortisone cream for any skin irritation. - Prednisone prescribed for inflammation, which may also help with back pain. Chronic fatigue: - No specific discussion or treatment plan provided during this visit. Arthralgia of right acromioclavicular joint: - Referred to ARMANDO Verma, for further evaluation and possible cortisone injection. - Prednisone prescribed for inflammation, which may help alleviate shoulder pain. Chronic right shoulder pain: - Referred to ARMANDO Verma, for further evaluation and possible cortisone injection. - Prednisone prescribed for inflammation, which may help alleviate shoulder pain. Chronic frontal sinusitis: - Symptoms include tenderness over the right brow and nasal congestion. - Prednisone prescribed for inflammation. - Continue using Flonase (fluticasone) two sprays daily. - Advised to use ipratropium nasal spray as needed. - Continue reflux management with Prilosec (omeprazole). Chronic maxillary sinusitis: - Symptoms include tenderness over the right maxillary sinus. - Prednisone prescribed for inflammation. - Continue using Flonase (fluticasone) two sprays daily. - Advised to use ipratropium nasal spray as needed. - Continue reflux management with Prilosec (omeprazole). Essential hypertension: - Blood pressure management discussed. - No specific changes to current antihypertensive regimen mentioned. Encounter for long-term current use of medication: - Refill of torsemide for edema management. - Refill of simethicone for gas relief. Obstructive sleep apnea: Uses CPAP routinely and benefits from use. I spent a total of 41 minutes on the date of the service which included [id number] patient care, completing clinical documentation, obtaining and/or reviewing separately obtained history, performing a medically appropriate examination, counseling and educating the patient/family/caregiver, ordering medications, tests, or procedures, independently interpreting results (not separately reported), and communicating results to the patient/family/caregiver. Encounter Diagnosis ICD-10-CM 1. Obstructive sleep apnea G47.33 2. Type 2 diabetes mellitus with diabetic neuropathy, without long-term current use of insulin ([facility]) E11.40 HEMOGLOBIN A1C COMPREHENSIVE METABOLIC PANEL 3. Essential hypertension I10 VITAMIN D 25 HYDROXY THYROID STIMULATING HORMONE T4 FREE/FREE THYROXINE T3, FREE SEDIMENTATION RATE, WESTERGREN MAGNESIUM HEMOGLOBIN A1C COMPREHENSIVE METABOLIC PANEL COMPLETE BLOOD COUNT C-REACTIVE PROTEIN torsemide (DEMADEX) 10 mg tablet 4. Vitamin D deficiency E55.9 VITAMIN D 25 HYDROXY 5. Encounter for long-term current use of medication Z79.899 VITAMIN D 25 HYDROXY THYROID STIMULATING HORMONE T4 FREE/FREE THYROXINE T3, FREE SEDIMENTATION RATE, WESTERGREN MAGNESIUM HEMOGLOBIN A1C COMPREHENSIVE METABOLIC PANEL COMPLETE BLOOD COUNT C-REACTIVE PROTEIN 6. Chronic bilateral thoracic back pain M54.6 G89.29 7. Chronic fatigue R53.82 VITAMIN D 25 HYDROXY THYROID STIMULATING HORMONE T4 FREE/FREE THYROXINE T3, FREE SEDIMENTATION RATE, WESTERGREN MAGNESIUM HEMOGLOBIN A1C COMPREHENSIVE METABOLIC PANEL COMPLETE BLOOD COUNT C-REACTIVE PROTEIN 8. Arthralgia of right acromioclavicular joint M25.511 CONSULT TO ORTHOPAEDICS Tenderness of AC joint 9. Chronic right shoulder pain M25.511 CONSULT TO ORTHOPAEDICS G89.29 worse lately; affecting sleep 10. Chronic frontal sinusitis J32.1 predniSONE (DELTASONE) 10 mg tablet 11. Chronic maxillary sinusitis J32.0 predniSONE (DELTASONE) 10 mg tablet 12. Essential hypertension I10 VITAMIN D 25 HYDROXY THYROID STIMULATING HORMONE T4 FREE/FREE THYROXINE T3, FREE SEDIMENTATION RATE, WESTERGREN MAGNESIUM HEMOGLOBIN A1C COMPREHENSIVE METABOLIC PANEL COMPLETE BLOOD COUNT C-REACTIVE PROTEIN torsemide (DEMADEX) 10 mg tablet Fair control. Continue management documented in this encounter [facility] 10-27-2023 Telephone encounter Note The following approved medication requests have been transmitted electronically. Requested Prescriptions Signed Prescriptions Disp Refills blood sugar diagnostic (BLOOD GLUCOSE TEST) test strip 50 Strip 5 Sig: Test blood sugar 1 time daily. Dx: Type 2 DM - Controlled E11.9 Insulin: No. Authorizing Provider: KRISTY BROWER Lancets 100 Each 11 Sig: Test blood sugar(s) 2 times daily and as needed. To go with lancet pen with glucometer Dx: Type 2 DM - Controlled E11.9 Insulin: No Authorizing Provider: KRISTY BROWER MD [facility] 10-27-2023 Miscellaneous Notes The following approved medication requests have been transmitted electronically. Requested Prescriptions Signed Prescriptions Disp Refills blood sugar diagnostic (BLOOD GLUCOSE TEST) test strip 50 Strip 5 Sig: Test blood sugar 1 time daily. Dx: Type 2 DM - Controlled E11.9 Insulin: No. Authorizing Provider: KRISTY BROWER Lancets 100 Each 11 Sig: Test blood sugar(s) 2 times daily and as needed. To go with lancet pen with glucometer Dx: Type 2 DM - Controlled E11.9 Insulin: No Authorizing Provider: KRISTY BROWER MD documented in this encounter [facility] 10-12-2023 History of Present illness Narrative Subjective Patient ID: Arlette Ruiz is a 78 y.o. female who presents for Asthma (Patient is here for a follow up visit. Patient says her breathing has been pretty good. Patient admits an occasional cough in the mornings due to her sinus drainage. Patient is using rescue inhaler once a week. Patient is not using nebulizer. Patients PCP wanted her to get another sleep study due to her having issues with her breathing at nighttime even though she is already on cpap. Patient is not a smoker. Patient has no other concerns for today. ).' Asthma She complains of cough and shortness of breath. Associated symptoms include postnasal drip and rhinorrhea. Pertinent negatives include no chest pain or fever. Her past medical history is significant for asthma. Ms. Ruiz is a 77 yo female with PMH of Pulmonary fibrosis and asthma presents for a second opinion. She states that she first saw black oxide operator Dr. Potter at [facility] in 2014 due to cough and was diagnosed with Idiopathic Pulmonary Fibrosis. She later started seeing Dr. Giuliano Nolasco who informed her that she did not have IPF and did work up for Histoplasmosis and HP and later bronchoscopy in 2017. She has been seeing Dr. Myriam Obrien now since Dr. Nolasco retired and she was again told to have IPF. She presents today for evaluation and management. She states that she has significant postnasal drip, intermittent cough and her SOB is primarily with strenuous activity. She is not on Home O2. She does have EMY and uses CPAP nightly through [facility]. [place]. She is here for follow up. She states she is not SOB on usual activity but more than usual or strenuous activity makes her SOB. She gets coughing spell in the morning and has occasional wheezing which is relieved with albuterol. She did not like Symbicort because she felt it caused some soreness in her throat. However, she has been good otherwise on albuteorl inhaler. She has noted worsened allergic rhinitis and sinus symptoms in Spring and Summer but admits she is not taking montelukast or azelastine. She is taking nasonex nasal spray. She denies fever, chills, rigors, chest pain. Review of Systems Constitutional: Negative for chills, fever and unexpected weight change. HENT: Positive for postnasal drip and rhinorrhea. Respiratory: Positive for cough and shortness of breath. Cardiovascular: Negative for chest pain, palpitations and leg swelling. Gastrointestinal: As in HPI Musculoskeletal: Negative for arthralgias and gait problem. Skin: Negative for rash. All other systems reviewed and are negative. Objective Physical Exam Vitals and nursing note reviewed. Constitutional: Appearance: Normal appearance. HENT: Head: Normocephalic. Nose: Nose normal. Mouth/Throat: Pharynx: Oropharynx is clear. Eyes: Extraocular Movements: Extraocular movements intact. Conjunctiva/sclera: Conjunctivae normal. Pupils: Pupils are equal, round, and reactive to light. Cardiovascular: Rate and Rhythm: Normal rate and regular rhythm. Pulses: Normal pulses. Heart sounds: Normal heart sounds. Pulmonary: Effort: Pulmonary effort is normal. Breath sounds: Examination of the right-lower field reveals decreased breath sounds. Examination of the left-lower field reveals decreased breath sounds. Decreased breath sounds present. Abdominal: General: Bowel sounds are normal. Palpations: Abdomen is soft. Musculoskeletal: General: Normal range of motion. Cervical back: Normal range of motion. Skin: General: Skin is warm. Neurological: General: No focal deficit present. Mental Status: She is alert and oriented to person, place, and time. Mental status is at baseline. Psychiatric: Mood and Affect: Mood normal. Behavior: Behavior normal. Assessment/Plan Moderate persistent asthma ILD EMY Allergic rhinitis Class 2 obesity Recommendations: -ILD work up has been done before. CTD was negative. HP panel results not available. H/o bronchoscopy with BAL at [facility] with Dr. Nolasco. -Reviewed CT chest Nov 2022: patient has had subpleural reticulation in bilateral bases since 2016 but on review has not progressed. 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 The CT chest from 2014 is not available for review. -D/w pt and her son Eloise. There is no characteristic e/o IPF that was initially diagnosed in 2014 and symptoms have not progressed. Patient is not O2 dependent. The CT chest comparison does not show progressive honeycombing. I discussed with patient that IPF is not totally ruled out but clinical picture may be s/o other ILDs. VATS bx would be ideal for diagnosis but at present we will defer due to risks exceeding benefits. If this appears to be a PPF, progressive pulmonary fibrosis on follow up, we will offer OFEV therapy. At this time her symptoms are mostly uncontrolled secondary to asthma and allergic rhinitis. She has corn lakhani behind her house -She did not like Symbicort but does feel improvement with albuterol. Does notice improvement in sinus symptoms with Dymista partially. Avoid allergen exposure. Normal RAST and HP. Repeat PFTs discussed: normal idalia, volumes and DLCO reported. -She is not using Dymista but nasonex and sinus rinse. Recommend add azelastine besides nasonex and take Montelukast HS. -Continue CPAP therapy for EMY. I adjusted her APAP from 5-15 cwp to 10-14 cwp since P95 12.4 cwp. Changed auto ramp to ramp x 15 min and set up EPR. She states she is using it nightly and her data is good. She does not need any repeat sleep study at present. Continue APAP 10-14 cwp. Discussed with patient and her son Eloise on prior visit and now with daughter Krista: Continue asthma management with prn albuterol and focus on optimizing the treatment for allergic rhinitis. Advised patient to stay adherent to the treatment. Continue nightly CPAP. No radiographic progression of ILD is noted. Symptoms are controlled. He did get data for AutoPap 10-15 and her AHI is well-controlled at 0.1. I provided reassurance to the patient that her respiratory and sleep disorders are under control at present. I also reassured that her sinus symptoms are more related to uncontrolled allergic rhinitis and no signs of active infection are noted. However I educated patient to identify signs of sinus infection and contact us. documented in this encounter [facility] Work Phone: 10-12-2023 Instructions Johanna Patino MD - 10/12/2023 10:20 AM EDT Please continue using albuterol inhaler as needed for shortness of breath and wheezing. Continue using nasonex nasal spray twice daily and start taking azelastine nasal spray 1 spray in each nostril twice daily. Start taking Montelukast 1 tablet nightly at bedtime. Continue to use CPAP nightly and I have made adjustments to your machine. Please give it a week to get used to new settings. Our office will ask [facility] to send your data. Follow up in 6 months. documented in this encounter [facility] Work Phone: 09-30-2023 Instructions Kristy Brower MD - 09/30/2023 7:02 PM EDT Screening schedule The following prevention plan is recommended: BP Controlled (<130/80) Never done Shingrix Vaccine(1 of 2) Never done Diabetic Foot Exam due on 07/12/2021 Dilated Retinal Exam due on 10/14/2022 Urine Albumin:Creatinine Ratio due on 10/18/2023 WHAT YOU CAN DO TO PREVENT FALLS Many falls can be prevented. By making some changes, you can lower your chances of falling. Four things YOU can do to prevent falls for you* and your caregiver 1. Begin a regular exercise program Exercise is one of the most important ways to lower your chances of falling. It makes you stronger and helps you feel better. Exercises that improve balance and coordination (like Ghulam Chi) are the most helpful. Lack of exercise leads to weakness and increases your chances of falling. Ask your doctor or health care provider about the best type of exercise program for you. 2. Have your health care provider review your medicines Have your doctor or pharmacist review all the medicines you take, even [id number] medicines. As you get older, the way medicines work in your body can change. Some medicines, or combinations of medicines, can make you sleepy or dizzy and can cause you to fall. 3. Have your vision checked Have your eyes checked by an eye doctor at least once a year. You may be wearing the wrong glasses or have a condition like glaucoma or cataracts that limits your vision. Poor vision can increase your chances of falling. 4. Make your home safer About half of all falls happen at home. To make your home safer: Remove things you can trip over (like papers, books, clothes, and shoes) from stairs and places where you walk. Remove small throw rugs or use double-sided tape to keep the rugs from slipping. Keep items you use often in cabinets you can reach easily without using a step stool. Have grab bars put in next to your toilet and in the tub or shower. Use non-slip mats in the bathtub and on shower floors. Improve the lighting in your home. As you get older, you need brighter lights to see well. Hang light-weight curtains or shades to reduce glare. Have handrails and lights put in on all staircases. Wear shoes both inside and outside the house. Avoid going barefoot or wearing slippers. For more information, contact: [facility] Disease Control and Prevention www.cdc.gov/injury * This information may not apply if you have certain medical conditions. documented in this encounter [facility] 09-30-2023 History of Present illness Narrative Images from the original note were not included. This note was created using [employer]IS[employer]. Subjective Whitney Ruiz is a 78 year old female. HISTORY Whitney Ruiz is a 78 year old lady here for yearly exam and follow up appointment. Ongoing issues with back pain Also sinus issues. Started about 14 days ago. Sinus drainage is thick. [facility]--ruled out strep and told to stay on same nasal steroid. Sinuses still hurting and throat is sore. Nose feels raw. Right ear pain radiates to throat--not any better. Pain mostly on right frontal area and goes to hinduism and ear then to throat. Sometimes hurts to swallow. Inhaler helps to expectorate in the AM. [place] like was smothering yesterday AM when woke up because was so congested. Back pain: Rates 8/10 Still hurts right lateral thoracic spine area. Back pain worse than before. Hurts on t he spine and wraps around to front chest wall and abdomen. No change in activity. No falls. Lidoderm patch no help. Laying in bed and sleeping helps. Eyes are feeling goopy at times. Started since was seen [facility] 09/[facility]. Gets blurry a little with drainage. Some crusting. Plans to followup with Dr. Dumont. Noted feet and ankle swelling more often. PAST MEDICAL HISTORY Diagnosis Date CAD (coronary artery disease) 04/16/2012 70-80% LAD --had stent placed 09/07/14 Depressive disorder, not elsewhere classified Diverticulitis of colon with hemorrhage 2001 DM w/o Complication Type II 04/05/2009 GERD (gastroesophageal reflux disease) Hiatal hernia Hypertension 03/30/1988 IPF (idiopathic pulmonary fibrosis) ([facility]) Irritable bowel syndrome Occipital neuralgia Osteoarthritis 06/27/2011 Other chronic sinusitis Other osteoporosis Post-nasal drip Situational depression 12/27/2014 Sleep apnea 03/30/1996 Statin intolerance 12/24/2016 SVT (supraventricular tachycardia) (HCC) 10/02/2018 Thoracic aortic aneurysm (HCC) [address] chest (2014, 2013)--July 09, [address] Unspecified essential hypertension Patient has had since age 33 Vitamin D Deficiency 04/18/2009 Current Outpatient Medications Medication Sig metoprolol tartrate, short acting, (LOPRESSOR) 50 mg tablet Take 1 tablet by mouth two times a day. Simethicone 125 mg chewable tablet Take 1 tablet by mouth every 6 hours as needed. flash glucose sensor (FREESTYLE ALEX 2 SENSOR) kit 1 Each every 2 weeks. E11.9 DM type 2, Insulin: No furosemide (LASIX) 10 mg/mL solution Take by mouth as directed. [facility] NASAL OINTMENT Apply to affected area two times a day. omeprazole (PRILOSEC) 20 mg capsule Take 1 capsule by mouth once daily. as directed torsemide (DEMADEX) 10 mg tablet Take 1 tablet by mouth once daily as needed (edema). flash glucose scanning reader (FREESTYLE ALEX 2 READER) Check sugars at least 4 times daily Lancets lancets Test blood sugar(s) 2 times daily and as needed. To go with lancet pen with glucometer Dx: Type 2 DM - Controlled E11.9 Insulin: No albuterol HFA (PROVENTIL HFA, VENTOLIN HFA) 90 mcg/actuation inhaler Inhale 1-2 Puffs as instructed every 4 hours as needed (for wheezing and shortness of breath). potassium chloride (K-TAB) 10 mEq tablet Take 1 tablet by mouth once daily as needed (When taking diuretic). DAILY blood sugar diagnostic (BLOOD GLUCOSE TEST) test strip Test blood sugar(s) 2 times daily and as needed for symptoms of high or low sugars. Dx: Type 2 DM - Controlled E11.9 Insulin: No. Labile sugars that sometimes drop low so needs to check at least twice daily (taking glipizide) CPAP Change settings of Auto PAP to 5-15 cm of water with humidification. Continue orders for: Mask (per patient preference) optional chin strap (if indicated) , filters, tubing, humidifier and lifetime supplies. Per patient insurance will not replace supplies - so request repair and provision of loaner CPAP. fluticasone (FLONASE) 50 mcg/actuation nasal spray Use 1 Coleman in each nostril once daily. (Patient taking differently: Use 1 Coleman in each nostril once daily. Takes daily as needed) MULTI-VITAMIN ORAL Take by mouth. COMPOUNDED PRESCRIPTION New CPAP with supplies CPAP pressure 12 cm H2O. 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 aspirin, enteric coated (ASPIRIN, ENTERIC COATED) 81 mg EC tablet Take 81 mg by mouth once daily. clobetasol (TEMOVATE) 0.05 % ointment Apply 1 application to affected area two times a day as needed. TO AFFECTED AREA. (Patient not taking: Reported on 07/31/2023) nystatin (MYCOSTATIN) powder Apply 1 application to affected area four times daily. As directed (Patient not taking: Reported on 09/30/2023) L. acidophilus/Bifid. animalis 15.5 billion cell cap Take by mouth. (Patient not taking: Reported on 01/28/2023) azelastine 0.1% nasal spray Use 1 Coleman in each nostril twice daily. Cholecalciferol, Vitamin D3, 125 mcg (5,000 unit) cap Take 1 capsule by mouth once daily. (Patient not taking: Reported on 09/30/2023) mecobalamin (B12 ACTIVE ORAL) Take by mouth. (Patient not taking: Reported on 07/31/2023) cholecalciferol, vitD3,/vit K2 (VITAMIN D3-VITAMIN K2 ORAL) Take 1 capsule by mouth once daily. (Patient not taking: Reported on 07/31/2023) ipratropium-albuterol (DUONEB) 0.5 mg-3 mg(2.5 mg base)/3 mL nebu Inhale 3 mL as instructed every 6 hours. Unit dose pack (Patient not taking: Reported on 01/28/2023) Lactobacillus acidophilus (PROBIOTIC ORAL) Take by mouth. (Patient not taking: Reported on 09/30/2023) COMPOUNDED PRESCRIPTION Powerstep full length original insert (M12.571) Traumatic arthritis of foot, right (primary encounter diagnosis) (Patient not taking: Reported on 09/30/2023) No current facility-administered medications for this visit. ALLERGIES Allergen Reactions Codeine Shortness of Breath Vicodin [Hydrocodon* Intolerance cardiac arrest Adhesive Rash Augmentin [Amoxicil* Shortness of Breath Called and complained that caused SOB Biaxin [Clarithromy* Mental Status Change Cardizem [Diltiazem] Intolerance itching Ciprofloxacin Other: See Comments Muscle pain Clonidine Intolerance low heart rate to 42; BP also dropped; tried patch and was okay for a while but then stopped since affected thinking Coreg [Carvedilol] Intolerance grumpy, runny nose Crestor [Rosuvastat* Intolerance muscle aches all over Cymbalta [Duloxetin* Other: See Comments Elevated BP and blood sugar went up Dicyclomine Shortness of Breath Diovan [Valsartan] Swelling In feet, legs & ankles Doxycycline Vomiting Vomiting after the first dose, intense. Flagyl [Metronidazo* Itching Guaifenesin-Sodium * Intolerance jittery Levofloxacin Other: See Comments Muscle pain Losartan Other: See Comments Made me lose hair. Low back pain, stomach upset Lovastatin Intolerance Muscle aches all over Mobic [Meloxicam] lips swell Morphine Itching possibly was from the IV or tape since was from IV morphine; only affected arm of hand had IV in Nifedipine Intolerance palpitations; also to see if runny nose resolved (did not) Norvasc [Amlodipine* Swelling Sulfa (Sulfonamide * Rash Ultravist [Iopromid* Other: See Comments Pt sts with previous cat scan she had delayed chest tightness FAMILY HISTORY Problem Relation Age of Onset Arthritis Mother Colon Cancer Mother from this Hypertension Father Heart Father CHF Diabetes Father Cancer Brother Lung Cancer Sister from lung cancer Diabetes Brother Hypertension Brother other (Migraine) Daughter other (Other) Daughter Fibromyalgia other (Migraine) Daughter other (Other) Daughter Fibromyalgia Asthma Daughter other (SLE) Daughter Thyroid Cancer Brother Asthma Brother Asthma Maternal Grandfather Asthma Other Nephew, at age 7. Social History Tobacco Use Smoking status: Former Packs/day: 1.00 Years: 12.00 Additional pack years: 0.00 Total pack years: 12.00 Types: Cigarettes Start date: 02/21/1963 Quit date: 03/30/1972 Years since quittin.5 Smokeless tobacco: Never Tobacco comments: Mother smoked in childhood home, spouse of 45 years also smoked in home. Vaping Use Vaping Use: Never used Substance Use Topics Alcohol use: No Drug use: No Review of Systems Objective BP 162/100 Pulse (!) 56 Temp 36.4 C (97.6 F) Resp 18 Ht 152.5 cm (5' 0.04) Wt 84.6 kg (186 lb 6.4 oz) SpO2 97% BMI 36.36 kg/m Last 5 Encounter Wt Readings: Date: Wt: 09/30/2023 84.6 kg (186 lb 6.4 oz) 09/19/2023 86.5 kg (190 lb 11.2 oz) 07/31/2023 84.8 kg (187 lb) 05/05/2023 84.6 kg (186 lb 9.6 oz) 01/28/2023 85.7 kg (189 lb) No waist measurement recorded Estimated body mass index is 36.36 kg/m as calculated from the following: Height as of this encounter: 152.5 cm (5' 0.04). Weight as of this encounter: 84.6 kg (186 lb 6.4 oz). Last 5 Encounter BP Readings: Date: BP: 09/30/2023 162/100 09/19/2023 122/76 07/31/2023 164/100 05/05/2023 154/91 01/28/2023 136/81 09/30/23 1704 09/30/23 1857 BP: 162/100 138/88 Pulse: (!) 56 Resp: 18 Temp: 36.4 C (97.6 F) SpO2: 97% Weight: 84.6 kg (186 lb 6.4 oz) Height: 152.5 cm (5' 0.04) Physical Exam Vitals reviewed. Constitutional: Appearance: Normal appearance. She is well-developed. HENT: Head: Normocephalic and atraumatic. Comments: Sinus tenderness on right Right Ear: Tympanic membrane, ear canal and external ear normal. Left Ear: Tympanic membrane, ear canal and external ear normal. Nose: Nose normal. Eyes: Conjunctiva/sclera: Conjunctivae normal. Neck: Thyroid: No thyromegaly. Vascular: No carotid bruit. Cardiovascular: Rate and Rhythm: Normal rate and regular rhythm. Pulses: Normal pulses. Heart sounds: Normal heart sounds. No murmur heard. No friction rub. No gallop. Pulmonary: Effort: Pulmonary effort is normal. Breath sounds: Normal breath sounds. Abdominal: General: Bowel sounds are normal. There is no distension. Palpations: Abdomen is soft. There is no mass. Tenderness: There is no abdominal tenderness. Musculoskeletal: General: No deformity. Normal range of motion. Thoracic back: Tenderness (tight paravertebral muscles on theright) present. Back: Lymphadenopathy: Cervical: No cervical adenopathy. Skin: General: Skin is warm and dry. Coloration: Skin is not jaundiced or pale. Findings: No rash. Neurological: General: No focal deficit present. Mental Status: She is alert and oriented to person, place, and time. Cranial Nerves: No cranial nerve deficit. Sensory: No sensory deficit. Motor: No abnormal muscle tone. Coordination: Coordination normal. Deep Tendon Reflexes: Reflexes normal. Psychiatric: Attention and Perception: Attention and perception normal. Mood and Affect: Mood and affect normal. Behavior: Behavior normal. Thought Content: Thought content normal. Judgment: Judgment normal. Assessment and Plan Whitney Ruiz is a 78 year old female here for a Medicare wellness visit. Medicare Health Risk Assessment General Health Poor Exercise: Minutes/Day 0 min Exercise: Days/Week On average, how many days per week do you engage in moderate to strenuous exercise (like a brisk walk)?: 0 days (not able to walk; avoiding knee surgery) Alcohol: Daily Use Never Alcohol: Drinks/Day Patient declined Alcohol: 6 or more drinks Never Feel off balance Yes (Knee issue; also dizziness with bending down and standing up. Using cane usually) Concerns: Teeth/Dentures Yes (Irritating gums; will work on getting new dentures) Concerns: Sexual function No Troubled by feelings None of the above Frequency: Eating healthy diet Nearly every day (Every day) ADLs requiring help Grocery shopping; Cooking; Housework; Bathing; Grooming; Dressing; Sitting or standing; Walking; Managing urine leakage Safety precautions in home/vehicle Yes Smoke, vape, chews tobacco No Difficulty hearing No Difficulty seeing Yes (Might have eye infection or sinuses are causing eye issues; will see eye doctor) Current Providers Specialists: I have reviewed specialist-related care of the patient in the medical record. Medical/Family history review Reviewed and updated problem list, medical/surgical/family/social history, medications, and allergies. Opioid use review Opioid Medications (last 90 days) 07/31/2023 00:00 08/07/2023 23:59 Opioid Medications oxycodone HCl/acetaminophen 1 tablet q 8 H PRN ORAL -Rx End Details Outpatient prescription Anxiety/Depression screening PHQ-2 Score: 2 (Lower risk for depression) Recommendation: no further intervention at this time Cognitive screening Mini Cog Score: 5 Cognitive screening reviewed and No further action needed (score 3-5). Functional Observation Was the patient's Timed Up & Go test unsteady or ? 12 seconds? No Advance Care Planning Surrogate decision maker and/or advance care plan documented Measurements BP 162/100 Pulse 56 Temp 97.6 Resp 18 Ht 5' .039 (1.53m) Wt 186 lb 6.4 oz (84.6kg) SpO2 97% BMI 36.36 kg/(m^2). Vision Screening: Follows with optometry/ophthalmology Assessment/Plan Medicare annual wellness visit, subsequent (Z.) - Counseled on healthy diet and regular exercise - Fall avoidance information provided - Personalized prevention plan provided Encounter Diagnosis ICD-10-CM 1. Medicare annual wellness visit, subsequent Z 2. Type 2 diabetes mellitus with diabetic neuropathy, without long-term current use of insulin ([facility]) E11.40 DISCONTINUED: blood sugar diagnostic (BLOOD GLUCOSE TEST) test strip Continue present management 3. Lichen sclerosus L90.0 clobetasol (TEMOVATE) 0.05 % ointment recurrence of pain in vaginal area as before. Treat again. Refer back to [facility] N[facility]SE as indicated 4. Post-nasal drip R09.82 fluticasone (FLONASE) 50 mcg/actuation nasal spray Continue management 5. Essential hypertension I10 torsemide (DEMADEX) 10 mg tablet Fair control. Continue management 6. Acute non-recurrent sinusitis of other sinus J01.80 Treatment as discussed 7. Antibiotic-induced yeast infection B37.9 fluconazole (DIFLUCAN) 150 mg tablet T36.95XA Treat as needed 8. Itching L29.9 Of back--appears due to pinched nerve issues on back. Try antihistamines and cold compresses Patient here for Medicare Annual Wellness Visit, yearly exam and follow up. Above issues addressed with patient. Patient involved in shared decision making for management of medical issues. History and medications reviewed. Epic updated as needed Refills taken care of and meds adjusted as indicated after reviewed history, exam and labs. Health Maintenance reviewed. Updated record and/or ordered tests as recorded. Encouraged on efforts at healthy diet and regular exercise and adequate sleep. Kristy Brower MD documented in this encounter [facility] 09-19-2023 History of Present illness Narrative Subjective HPI Nontoxic-appearing female presents urgent care chief complaint pharyngitis. Duration of symptoms 3 days. Associated symptoms sore throat runny nose. Presents today for evaluation of possible strep throat. No OTC medications recently. No known sick contacts. Denies any fever body aches chills productive cough chest pain shortness of breath pleuritic pain hemoptysis nausea vomiting abdominal pain change in bowel or bladder habits. Past medical history prescription medication use and allergies reviewed. .Patient presents with: Sore Throat: X 3 days PAST MEDICAL HISTORY Diagnosis Date CAD (coronary artery disease) 04/16/2012 70-80% LAD --had stent placed 09/07/14 Depressive disorder, not elsewhere classified Diverticulitis of colon with hemorrhage 2001 DM w/o Complication Type II 04/05/2009 GERD (gastroesophageal reflux disease) Hiatal hernia Hypertension 03/30/1988 IPF (idiopathic pulmonary fibrosis) (HCC) Irritable bowel syndrome Occipital neuralgia Osteoarthritis 06/27/2011 Other chronic sinusitis Other osteoporosis Post-nasal drip Situational depression 12/27/2014 Sleep apnea 03/30/1996 Statin intolerance 12/24/2016 SVT (supraventricular tachycardia) ([facility]) 10/02/2018 Thoracic aortic aneurysm (HCC) [address] chest (2014, 2013)--July 09, [address] Unspecified essential hypertension Patient has had since age 33 Vitamin D Deficiency 04/18/2009 PAST SURGICAL HISTORY Procedure Laterality Date CHOLECYSTECTOMY 2002 COLONOSCOPY 06/09/14 diverticulosis COLONOSCOPY FLX DX W/COLLJ SPEC WHEN PFRMD 01/07/2012 hyperplastic polyps EGD 06/09/14 mild gastritis ESOPHAGOGASTRODUODENOSCOPY TRANSORAL DIAGNOSTIC 03/24/12 EGD PAST SURGICAL HISTORY OF 2000 Patient had to have right wrist bone rebuilt PAST SURGICAL HISTORY OF 09/07/2014 heart stent--mid LAD 2.5X12mm Alpine Xience stent PAST SURGICAL HISTORY OF Excision of lipoma TOTAL ABDOMINAL HYSTERECT W/WO RMVL TUBE OVARY 1999 Patient has both ovaries ALLERGIES Codeine, Vicodin [Hydrocodone-Acetaminophen], Adhesive, Augmentin [Amoxicillin-Pot Clavulanate], Biaxin [Clarithromycin], Cardizem [Diltiazem], Ciprofloxacin, Clonidine, Coreg [Carvedilol], Crestor [Rosuvastatin Calcium], Cymbalta [Duloxetine], Dicyclomine, Diovan [Valsartan], Doxycycline, Flagyl [Metronidazole], Guaifenesin-Sodium Citrate, Levofloxacin, Losartan, Lovastatin, Mobic [Meloxicam], Morphine, Nifedipine, Norvasc [Amlodipine Besylate], Sulfa (Sulfonamide Antibiotics), and Ultravist [Iopromide] MEDICATIONS metoprolol tartrate, short acting, (LOPRESSOR) 50 mg tablet Take 1 tablet by mouth two times a day. Simethicone 125 mg chewable tablet Take 1 tablet by mouth every 6 hours as needed. flash glucose sensor (FREESTYLE ALEX 2 SENSOR) kit 1 Each every 2 weeks. E11.9 DM type 2, Insulin: No nystatin (MYCOSTATIN) powder Apply 1 application to affected area four times daily. As directed furosemide (LASIX) 10 mg/mL solution Take by mouth as directed. azelastine 0.1% nasal spray Use 1 Coleman in each nostril twice daily. Cholecalciferol, Vitamin D3, 125 mcg (5,000 unit) cap Take 1 capsule by mouth once daily. omeprazole (PRILOSEC) 20 mg capsule Take 1 capsule by mouth once daily. as directed torsemide (DEMADEX) 10 mg tablet Take 1 tablet by mouth once daily as needed (edema). flash glucose scanning reader (FREESTYLE ALEX 2 READER) Check sugars at least 4 times daily albuterol HFA (PROVENTIL HFA, VENTOLIN HFA) 90 mcg/actuation inhaler Inhale 1-2 Puffs as instructed every 4 hours as needed (for wheezing and shortness of breath). blood sugar diagnostic (BLOOD GLUCOSE TEST) test strip Test blood sugar(s) 2 times daily and as needed for symptoms of high or low sugars. Dx: Type 2 DM - Controlled E11.9 Insulin: No. Labile sugars that sometimes drop low so needs to check at least twice daily (taking glipizide) CPAP Change settings of Auto PAP to 5-15 cm of water with humidification. Continue orders for: Mask (per patient preference) optional chin strap (if indicated) , filters, tubing, humidifier and lifetime supplies. Per patient insurance will not replace supplies - so request repair and provision of loaner CPAP. Lactobacillus acidophilus (PROBIOTIC ORAL) Take by mouth. MULTI-VITAMIN ORAL Take by mouth. COMPOUNDED PRESCRIPTION Powerstep full length original insert (M12.571) Traumatic arthritis of foot, right (primary encounter diagnosis) COMPOUNDED PRESCRIPTION New CPAP with supplies CPAP pressure 12 cm H2O. 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 aspirin, enteric coated (ASPIRIN, ENTERIC COATED) 81 mg EC tablet Take 81 mg by mouth once daily. clobetasol (TEMOVATE) 0.05 % ointment Apply 1 application to affected area two times a day as needed. TO AFFECTED AREA. (Patient not taking: Reported on 07/31/2023) L. acidophilus/Bifid. animalis 15.5 billion cell cap Take by mouth. (Patient not taking: Reported on 01/28/2023) [facility] NASAL OINTMENT Apply to affected area two times a day. (Patient not taking: Reported on 07/31/2023) mecobalamin (B12 ACTIVE ORAL) Take by mouth. (Patient not taking: Reported on 07/31/2023) cholecalciferol, vitD3,/vit K2 (VITAMIN D3-VITAMIN K2 ORAL) Take 1 capsule by mouth once daily. (Patient not taking: Reported on 07/31/2023) Lancets lancets Test blood sugar(s) 2 times daily and as needed. To go with lancet pen with glucometer Dx: Type 2 DM - Controlled E11.9 Insulin: No ipratropium-albuterol (DUONEB) 0.5 mg-3 mg(2.5 mg base)/3 mL nebu Inhale 3 mL as instructed every 6 hours. Unit dose pack (Patient not taking: Reported on 01/28/2023) potassium chloride (K-TAB) 10 mEq tablet Take 1 tablet by mouth once daily as needed (When taking diuretic). DAILY fluticasone (FLONASE) 50 mcg/actuation nasal spray Use 1 Coleman in each nostril once daily. (Patient taking differently: Use 1 Coleman in each nostril once daily. Takes daily as needed) FAMILY HISTORY Problem Relation Age of Onset Arthritis Mother Colon Cancer Mother from this Hypertension Father Heart Father CHF Diabetes Father Cancer Brother Lung Cancer Sister from lung cancer Diabetes Brother Hypertension Brother other (Migraine) Daughter other (Other) Daughter Fibromyalgia other (Migraine) Daughter other (Other) Daughter Fibromyalgia Asthma Daughter other (SLE) Daughter Thyroid Cancer Brother Asthma Brother Asthma Maternal Grandfather Asthma Other Nephew, at age 7. Social History Tobacco Use Smoking status: Former Packs/day: 1.00 Years: 12.00 Additional pack years: 0.00 Total pack years: 12.00 Types: Cigarettes Start date: 02/21/1963 Quit date: 03/30/1972 Years since quittin.5 Smokeless tobacco: Never Tobacco comments: Mother smoked in childhood home, spouse of 45 years also smoked in home. Vaping Use Vaping Use: Never used Substance Use Topics Alcohol use: No Drug use: No BP 122/76 Pulse (!) 58 Temp 36.6 C (97.8 F) (Tympanic) Resp 18 Wt 86.5 kg (190 lb 11.2 oz) SpO2 96% BMI 38.52 kg/m Review of Systems Constitutional: Negative for chills, fever and malaise/fatigue. HENT: Positive for congestion and sore throat. Negative for ear discharge, ear pain and sinus pain. Eyes: Negative for blurred vision, pain, discharge and redness. Respiratory: Negative for cough, hemoptysis, sputum production, shortness of breath, wheezing and stridor. Cardiovascular: Negative for chest pain. Gastrointestinal: Negative for abdominal pain, diarrhea, nausea and vomiting. Musculoskeletal: Negative for myalgias. Skin: Negative for itching and rash. Neurological: Negative for dizziness and headaches. Objective Physical Exam Constitutional: General: She is not in acute distress. Appearance: She is not diaphoretic. HENT: Head: Normocephalic. Jaw: No trismus, tenderness, swelling or pain on movement. Right Ear: Tympanic membrane, ear canal and external ear normal. Left Ear: Tympanic membrane, ear canal and external ear normal. Nose: Congestion present. Mouth/Throat: Mouth: Mucous membranes are moist. Pharynx: Oropharynx is clear. Uvula midline. No pharyngeal swelling, oropharyngeal exudate, posterior oropharyngeal erythema or uvula swelling. Eyes: Conjunctiva/sclera: Conjunctivae normal. Pupils: Pupils are equal, round, and reactive to light. Cardiovascular: Rate and Rhythm: Normal rate and regular rhythm. Heart sounds: Normal heart sounds. Pulmonary: Effort: Pulmonary effort is normal. No tachypnea, accessory muscle usage or respiratory distress. Breath sounds: Normal breath sounds. No stridor. No wheezing, rhonchi or rales. Abdominal: General: There is no distension. Palpations: Abdomen is soft. Tenderness: There is no abdominal tenderness. There is no guarding or rebound. Musculoskeletal: Cervical back: Normal range of motion and neck supple. No edema, erythema, rigidity or tenderness. No pain with movement. Normal range of motion. Lymphadenopathy: Cervical: No cervical adenopathy. Skin: General: Skin is warm and dry. Neurological: Mental Status: She is alert and oriented to person, place, and time. ASSESSMENT/PLAN: 1. Sorethroat - ICD9: 462, ICD10: J02.9 (primary diagnosis) - STREP A MOLECULAR (POC) 2. Viral illness - ICD9: 079.99, ICD10: B34.9 - Discussed viral etiology and rationale for treatment. - Symptomatic treatment with prn analgesia - Supportive care with fluids and rest Strep test negative. No evidence of bacterial infection. Patient was educated on supportive therapies. Patient will follow up with primary care provider as needed. Patient was instructed to immediately proceed to emergency room for any new, worsening, or symptoms lasting longer than anticipated. The patient's clinical presentation is otherwise unremarkable at this time. Based on exam and clinical finding, the patient is stable for discharge. Plan of care was discussed with patient. Patient verbalizes understanding and agrees to plan of care. This note was generated using Tweet [employer] software. It may contain errors in wording, punctuation, or spelling. Miko Mcneal [email or web address].JACKIE documented in this encounter [facility] 09-08-2023 History of Present illness Narrative POPULATION HEALTH NAVIGATION OUTREACH Action/ Patient contacted to schedule Annual Medicare Wellness Visit. Spoke to patient and appointment scheduled. Reason for Outreach Care Gap/HCC or Scheduling Wellness Visits Care Gaps due: Medicare Annual Wellness Visit Controlling Blood Pressure Patient Contacted: Spoke to patient/parent/or legal guardian Patient identified by name and : Yes Care Gap/HCC/Scheduling Wellness actions taken: Patient scheduled/pended labs: Medicare Annual Wellness Visit Controlling Blood Pressure HCC related Navigation Signature: Love Og MA September 08, 2023 5:10 PM documented in this encounter [facility] 08-20-2023 History of Present illness Narrative Counseling: The patient was counseled regarding diagnostic results, instructions for management, risk factor reductions, prognosis, patient and family education, impressions, risks and benefits of treatment options and importance of compliance with treatment. Chief Complaint: The patient presents today for 6-month followup of palpitations, CAD and HTN. History Of Present Illness: Whitney Ruiz is an 78 year old female patient who presents today for 6-month followup of palpitations, CAD and HTN. Her PMH is significant for pulmonary fibrosis, EMY (CPAP) and mild CAD. Over the past 6 months, the patient states that she has done well from a cardiac standpoint. She denies any CP, chest discomfort or SOB. She reports arthralgias. Per the patient, with anything she eats she gets increased gas production. She also reports that her family has noted sleep disordered breathing at night despite being compliant with CPAP therapy. BP has been persistently elevated. She states that she discontinued the lisinopril s/t side effects, she was intolerant of amlodipine in the past s/t LE edema and another antihypertensive caused an increase in her ferritin level (? losartan). Last Recorded Vitals: Vitals: 08/20/23 1348 BP: 150/70 Pulse: 56 Weight: 83.5 kg (184 lb) Past Surgical History: She has no past surgical history on file. Social History: She reports that she quit smoking about 52 years ago. Her smoking use included cigarettes. She started smoking about 59 years ago. She has a 3.5 pack-year smoking history. She has never been exposed to tobacco smoke. She has never used smokeless tobacco. She reports that she does not drink alcohol and does not use drugs. Family History: No family history on file. Allergies: Amlodipine, Amoxicillin, Amoxicillin-pot clavulanate, Carvedilol, Ciprofloxacin, Clarithromycin, Clonidine, Codeine, Dicyclomine, Diltiazem hcl, Doxycycline, Doxylamine, Duloxetine, Guaifenesin, Guaifenesin-sodium citrate, Hydrocodone-acetaminophen, Iopromide, Levofloxacin, Losartan, Lovastatin, Meloxicam, Metronidazole, Morphine, Nifedipine, Rosuvastatin, Sulfabenzamide, Valsartan, Adhesive, Adhesive tape-silicones, and Sulfa (sulfonamide antibiotics) Outpatient Medications: Current Outpatient Medications Medication Instructions acetaminophen (TYLENOL) 1,000 mg, oral, Daily PRN albuterol 2.5 mg /3 mL (0.083 %) nebulizer solution 3 mL, inhalation, Every 6 hours PRN albuterol 90 mcg/actuation inhaler 1 puff, inhalation, Every 4 hours PRN aspirin 81 mg capsule 1 tablet, oral, Daily sxiaiz-czbzxzqluuh-IiEp-NaHCO3 137 mcg-50 mcg- 0.9 % kit,spray suspension and spray Please use 1 spray in each nostril twice daily. blood sugar diagnostic (Blood Glucose Test) strip Test blood sugar(s) 2 times daily and as needed for symptoms of high or low sugars. Dx: Type 2 DM - Controlled E11.9 Insulin: No. Labile sugars that sometimes drop low so needs to check at least twice daily (taking glipizide) cholecalciferol (VITAMIN D-3) 125 mcg, oral, Daily clobetasol (Temovate) 0.05 % ointment 1 Application, Topical, Every 12 hours PRN cyanocobalamin (Vitamin B-12) 500 mcg tablet oral, Daily RT ergocalciferol (VITAMIN D-2) 50,000 Units, oral, Once Weekly, 1 cap(s) orally once a week on tuesdays
FreeStyle Alex 2 Sensor kit CHANGE SENSOR EVERY 2 WEEKS furosemide (Lasix) 10 mg/mL solution oral Gas Relief Extra Strength 125 mg, oral, Every 6 hours PRN ipratropium-albuteroL (Duo-Neb) 0.5-2.5 mg/3 mL nebulizer solution 3 mL, inhalation, 4 times daily ketoconazole (NIZOral) 2 % shampoo 1-2 times per week. Lather and leave on scalp for 5 minutes, then rinse. L. acidophilus/Bifid. animalis 15.5 billion cell capsule oral lisinopril 10 mg, oral, Daily loratadine (Claritin) 10 mg tablet oral metoprolol tartrate (LOPRESSOR) 50 mg, oral, 2 times daily montelukast (SINGULAIR) 10 mg, oral, Nightly naphazoline-glycerin (Clear Eyes Redness Relief) 0.012-0.2 % drops 1 Application, Both Eyes, As needed omeprazole (PRILOSEC) 20 mg, oral, Daily RT potassium acetate 2 mEq/mL injection [id number] Medication potassium acetate potassium acetate 2 mEq/mL 12/10/2021 Active (Outside) potassium chloride CR 10 mEq ER tablet 10 mEq, oral, Daily PRN sacubitriL-valsartan (Entresto) 24-26 mg tablet oral, Every 12 hours torsemide (DEMADEX) 10 mg, oral, Daily PRN triamcinolone (Kenalog) 0.1 % cream Twice daily to itchy/irritated areas on skin as needed. trolamine salicylate (Aspercreme) 10 % cream 1 Application, Topical, As needed vitamin D3/vitamin K2, MK4, (K2 PLUS D3 ORAL) 1 tablet, oral, Daily Review of Systems Respiratory: Positive for sleep disturbances due to breathing. Musculoskeletal: Positive for arthritis. Gastrointestinal: Positive for flatus. All other systems reviewed and are negative. Physical Exam: Constitutional: Appearance: Healthy appearance. Not in distress. Neck: Vascular: Carotid bruit present. No JVR. JVD normal. Pulmonary: Effort: Pulmonary effort is normal. Breath sounds: Normal breath sounds. No wheezing. No rhonchi. No rales. Chest: Chest wall: Not tender to palpatation. Cardiovascular: PMI at left midclavicular line. Normal rate. Regular rhythm. Normal S1. Normal S2. Murmurs: There is no murmur. No gallop. No click. No rub. Pulses: Intact distal pulses. Edema: Peripheral edema absent. Abdominal: General: Bowel sounds are normal. Palpations: Abdomen is soft. Tenderness: There is no abdominal tenderness. Musculoskeletal: Normal range of motion. General: No tenderness. Skin: General: Skin is warm and dry. Neurological: General: No focal deficit present. Mental Status: Alert and oriented to person, place and time. Last Labs: CBC - Lab Results Component Value Date WBC 8.4 12/24/2022 HGB 12.6 12/24/2022 HCT 38.6 12/24/2022 MCV 90 12/24/2022 PLT 284 12/24/2022 CMP - Lab Results Component Value Date CALCIUM 9.3 12/24/2022 PHOS 3.4 08/21/2021 PROT 6.2 (L) 12/24/2022 ALBUMIN 4.0 12/24/2022 AST 10 12/24/2022 ALT 10 12/24/2022 ALKPHOS 57 12/24/2022 BILITOT 0.5 12/24/2022 LIPID PANEL - Lab Results Component Value Date CHOL 217 (H) 08/21/2021 TRIG 102 08/21/2021 HDL 41.5 08/21/2021 CHHDL 5.2 (A) 08/21/2021 LDLF 155 (H) 08/21/2021 VLDL 20 08/21/2021 RENAL FUNCTION PANEL - Lab Results Component Value Date GLUCOSE 132 (H) 12/24/2022 NA 140 12/24/2022 K 4.0 12/24/2022 CL 107 12/24/2022 CO2 27 12/24/2022 ANIONGAP 10 12/24/2022 BUN 16 12/24/2022 CREATININE 0.51 12/24/2022 CALCIUM 9.3 12/24/2022 PHOS 3.4 08/21/2021 ALBUMIN 4.0 12/24/2022 Lab Results Component Value Date BNP 266 (H) 12/24/2022 HGBA1C 6.5 (H) 07/31/2023 Last Cardiology Tests: 07/21/2022 - TTE 1. Left ventricular systolic function is normal with a 60-65% estimated ejection fraction. 2. Spectral Doppler shows an impaired relaxation pattern of left ventricular diastolic filling. 3. The left atrium is moderately dilated. 4. There is moderate mitral annular calcification. 07/03/2022 to 07/17/2022 - Holter Monitor 1. Predominant underlying rhythm was sinus rhythm; min HR 43 bpm, max HR 167 bpm, avg HR 56 bpm. 2. One run of ventricular tachycardia; 5 beats, max rate 132 bpm. 3. 45 supraventricular tachycardia runs. 08/21/2021 - Cardiac Catheterization (LH/RH) 1. Mild, non-obstructive coronary artery disease in right-dominant circulation. 2. Elevated right-sided filling pressure. 3. Normal left-sided filling pressure and pulmonary pressure. 4. No gradient on pull-back to suggest aortic stenosis. 5. Preserved CO/CI by assumed Lisset method. 08/21/2021 - CTA Chest for PE 1. No evidence of acute pulmonary embolism. 2. Worsening interstitial abnormality likely at least in part related to lower lung volumes. HRCT pattern of pulmonary fibrosis. 07/06/2020 - Cardiac Catheterization (LH) 1. Moderate non-obstructive coronary artery disease. 2. The right posterior descending artery showed moderate atherosclerotic disease. 3. Elevated LV filling pressures. 4. Left Ventricular end-diastolic pressure = 21. Lab review: I have personally reviewed the laboratory result(s). Assessment/Plan 1) Palpitations, Mild CAD On ASA 81 mg daily, furosemide 10 mg daily, metoprolol tartrate 50 mg BID, torsemide 10 mg daily p.r.n. [facility] 08/21/2021 with mild non-obstructive CAD Has been trying to increase physical activity and has made changes to diet TTE 07/21/2022 with LVEF 60-65%. Holter 07/03/2022 to 07/17/2022 with 1 run of ventricular tachycardia, 45 runs of SVT, ventricular bigeminy Stable Denies CP, chest discomfort or SOB Reports arthralgias Repeat echo 6 months Continue current medical Rx F/U 6 months 2) Pulmonary Fibrosis Seen on CTA 08/21/[address] Trammell at [facility] Compliant with CPAP Seen by pulmonology 01/27/2023 - recommended to start Symbicort and dymista, Check RAST and HP, repeat PFTs, continued CPAP therapy. Reports that family has noted sleep disordered breathing at night despite being compliant with CPAP therapy Referral placed to Dr. Sweet, sleep medicine specialist 3) HTN Elevated On metoprolol tartrate 50 mg BID Continue home monitoring of BP and contact our office if it remains elevated Lisinopril restarted at last OV, but patient states she had side effects so discontinued it Amlodipine caused LE edema in the past Reports that another antihypertensive caused an increase in her ferritin level - ? losartan Start hydralazine 25 mg TID Continue metoprolol as prescribed F/U 6 months 4) BLE Edema Occurs after prolonged sitting Compression stockings 5) Flatulence Reports postprandial flatulence Start pantoprazole 40 mg BID x 1 month, then once daily thereafter 6) Dyslipidemia Lipid panel 03/24/2023 with elevated total cholesterol and LDL of 213 and 152 respectively Advised on aggressive secondary risk factor modification F/U 6 months 7) Carotid Bruit Carotid Duplex 6 months F/U 6 months Scribe Attestation By signing my name below, I, Keyonna Bolton, Christian attest that this documentation has been prepared under the direction and in the presence of Franck Lambert MD. documented in this encounter [facility] Work Phone: 08-20-2023 Instructions Keyonna Bolton - 08/20/2023 1:30 PM EDT For your stomach, Dr. Lambert has prescribed pantoprazole 40 mg twice daily for 1 month, and then once daily thereafter. For your blood pressure, Dr. Lambert has prescribed hydralazine 25 mg three times daily. A prescription has been sent to your pharmacy. Continue all other medications as prescribed. Dr. Lambert has placed a referral to Dr. Sweet, sleep medicine specialist, for followup of your CPAP therapy. Repeat echocardiogram (ultrasound of the heart) in 6 months to followup on your heart function and structure. Dr. Lambert has ordered an ultrasound of your neck (carotid) arteries to be performed in [address] Lambert in 6 months. If you have any questions or cardiac concerns, please call our office at [phone]. documented in this encounter [facility] Work Phone: 08-12-2023 Telephone encounter Note The following approved medication requests have been transmitted electronically. Requested Prescriptions Prescriptions Disp Refills metoprolol tartrate, short acting, (LOPRESSOR) 50 mg tablet 180 tablet 3 Sig: Take 1 tablet by mouth two times a day. Kristy Brower MD [facility] 08-12-2023 Miscellaneous Notes The following approved medication requests have been transmitted electronically. Requested Prescriptions Prescriptions Disp Refills metoprolol tartrate, short acting, (LOPRESSOR) 50 mg tablet 180 tablet 3 Sig: Take 1 tablet by mouth two times a day. Kristy Brower MD Patient has been identified by name and date of : Yes, Provider Dr. Brower Date 08-11-23 Time 4:39 pm Patient phones for refill(s): Requested Prescriptions Pending Prescriptions Disp Refills metoprolol tartrate, short acting, (LOPRESSOR) 50 mg tablet 180 tablet 3 Sig: Take 1 tablet by mouth two times a day. Date of last office visit in primary care: 07/31/2023 Date of next office visit in primary care: 11/11/2023 Please advise. Thank you. Janett Cristobal. documented in this encounter [facility] 08-11-2023 Telephone encounter Note Patient has been identified by name and date of : Yes, Provider Dr. Brower Date 08-11-23 Time 4:39 pm Patient phones for refill(s): Requested Prescriptions Pending Prescriptions Disp Refills metoprolol tartrate, short acting, (LOPRESSOR) 50 mg tablet 180 tablet 3 Sig: Take 1 tablet by mouth two times a day. Date of last office visit in primary care: 07/31/2023 Date of next office visit in primary care: 11/11/2023 Please advise. Thank you. Janett Cristobal. [facility] 08-11-2023 Telephone encounter Note PATIENT NOTIFIED OF SAME. [facility] 08-11-2023 Miscellaneous Notes PATIENT NOTIFIED OF SAME. Okay to restart the glipizide for the next 5 days, I would stop it after that time frame and re-evaluate if sugars are still high. Patient calling for PCP advise. Reports she received a knee injection today at the [facility] and her blood sugars have elevated. Blood sugar this afternoon was 259 an hour after eating. Patient states she was recently stopped taking her glipizide 2.5 mg daily because her blood sugars have been good. Provider is aware of this. Patient asking if she should restart the glipizide 2.5 mg daily? Please advise patient. Thank you. documented in this encounter [facility] 08-11-2023 Telephone encounter Note Okay to restart the glipizide for the next 5 days, I would stop it after that time frame and re-evaluate if sugars are still high. [facility] 08-11-2023 Telephone encounter Note Patient calling for PCP advise. Reports she received a knee injection today at the [facility] and her blood sugars have elevated. Blood sugar this afternoon was 259 an hour after eating. Patient states she was recently stopped taking her glipizide 2.5 mg daily because her blood sugars have been good. Provider is aware of this. Patient asking if she should restart the glipizide 2.5 mg daily? Please advise patient. Thank you. [facility] 08-03-2023 Telephone encounter Note PATIENT NOTIFIED OF SAME. [facility] 08-03-2023 Miscellaneous Notes PATIENT NOTIFIED OF SAME. I sent in simethicone. Also let her know her labs are back. They are overall stable. Her calcium is a little elevated so we will monitor that. Her urine culture did not show any specific bacteria growth. Patient calling said she saw Kojo yesterday and thought a rx for Simethicone was going to be sent to the pharmacy? Computer shows rx not sent in. Patient uses [facility] for her pharmacy. Please advise documented in this encounter [facility] 08-03-2023 Telephone encounter Note I sent in simethicone. Also let her know her labs are back. They are overall stable. Her calcium is a little elevated so we will monitor that. Her urine culture did not show any specific bacteria growth. [facility] 08-01-2023 Telephone encounter Note Patient calling said she saw [facility] yesterday and thought a rx for Simethicone was going to be sent to the pharmacy? [facility] shows rx not sent in. Patient uses [facility] for her pharmacy. Please advise [facility] 07-31-2023 History of Present illness Narrative SUBJECTIVE Whitney Ruiz is a 78 year old female here today for acute concerns. Chief Complaint Patient presents with: ER F/U: [facility] in [place] for left knee injury after stepping down off a step Pain (Shoulder Pain): started about 4 days ago with no injury noted. Took percocet Incontinence (Urge Incontinence): of urine Constipation Fatigue: question if due to low potassium HPI Whitney Ruiz is a 78 year old female. Established patient of Kristy Brower MD. Here today for follow up from ER. Some concerns about knee and shoulder pain. Left knee has some fluid on it, ended up in the ER at [facility] on 07/23/2023. Turning the knee in or out makes it hurt more. Tried heat, ice, creams, elevation. Onset for this was a long time ago but just recently in the last week it has been more bothersome. Xray showed no fracture but had moderate OA, moderate effusion. Onset with more shoulder pain on the scapula. Last 5 days. Prior xray showed no fracture. Taking her percocet helped some. Urinating frequently. Feels tired. Not sure why. Questioning possible electrolyte imbalances. Sugars doing good. Her medications were reviewed today and her list is now up to date. Medications Current Outpatient Medications Medication Sig nystatin (MYCOSTATIN) powder Apply 1 application to affected area four times daily. As directed furosemide (LASIX) 10 mg/mL solution Take by mouth as directed. azelastine 0.1% nasal spray Use 1 Coleman in each nostril twice daily. Cholecalciferol, Vitamin D3, 125 mcg (5,000 unit) cap Take 1 capsule by mouth once daily. omeprazole (PRILOSEC) 20 mg capsule Take 1 capsule by mouth once daily. as directed torsemide (DEMADEX) 10 mg tablet Take 1 tablet by mouth once daily as needed (edema). metoprolol tartrate, short acting, (LOPRESSOR) 50 mg tablet Take 1 tablet by mouth twice daily. albuterol HFA (PROVENTIL HFA, VENTOLIN HFA) 90 mcg/actuation inhaler Inhale 1-2 Puffs as instructed every 4 hours as needed (for wheezing and shortness of breath). potassium chloride (K-TAB) 10 mEq tablet Take 1 tablet by mouth once daily as needed (When taking diuretic). DAILY fluticasone (FLONASE) 50 mcg/actuation nasal spray Use 1 Coleman in each nostril once daily. (Patient taking differently: Use 1 Coleman in each nostril once daily. Takes daily as needed) Lactobacillus acidophilus (PROBIOTIC ORAL) Take by mouth. MULTI-VITAMIN ORAL Take by mouth. ACETAMINOPHEN (TYLENOL ORAL) Take 500 mg by mouth as needed. aspirin, enteric coated (ASPIRIN, ENTERIC COATED) 81 mg EC tablet Take 81 mg by mouth once daily. oxyCODONE-acetaminophen (PERCOCET) 5-325 mg tablet Take 1 tablet by mouth every 8 hours as needed for pain for up to 7 days. flash glucose sensor (FREESTYLE ALEX 2 SENSOR) kit 1 Each every 2 weeks. E11.9 DM type 2, Insulin: No clobetasol (TEMOVATE) 0.05 % ointment Apply 1 application to affected area two times a day as needed. TO AFFECTED AREA. (Patient not taking: Reported on 07/31/2023) L. acidophilus/Bifid. animalis 15.5 billion cell cap Take by mouth. (Patient not taking: Reported on 01/28/2023) [facility] NASAL OINTMENT Apply to affected area two times a day. (Patient not taking: Reported on 07/31/2023) mecobalamin (B12 ACTIVE ORAL) Take by mouth. (Patient not taking: Reported on 07/31/2023) cholecalciferol, vitD3,/vit K2 (VITAMIN D3-VITAMIN K2 ORAL) Take 1 capsule by mouth once daily. (Patient not taking: Reported on 07/31/2023) flash glucose scanning reader (FREESTYLE ALEX 2 READER) Check sugars at least 4 times daily Lancets lancets Test blood sugar(s) 2 times daily and as needed. To go with lancet pen with glucometer Dx: Type 2 DM - Controlled E11.9 Insulin: No ipratropium-albuterol (DUONEB) 0.5 mg-3 mg(2.5 mg base)/3 mL nebu Inhale 3 mL as instructed every 6 hours. Unit dose pack (Patient not taking: Reported on 01/28/2023) blood sugar diagnostic (BLOOD GLUCOSE TEST) test strip Test blood sugar(s) 2 times daily and as needed for symptoms of high or low sugars. Dx: Type 2 DM - Controlled E11.9 Insulin: No. Labile sugars that sometimes drop low so needs to check at least twice daily (taking glipizide) CPAP Change settings of Auto PAP to 5-15 cm of water with humidification. Continue orders for: Mask (per patient preference) optional chin strap (if indicated) , filters, tubing, humidifier and lifetime supplies. Per patient insurance will not replace supplies - so request repair and provision of loaner CPAP. COMPOUNDED PRESCRIPTION Powerstep full length original insert (M12.571) Traumatic arthritis of foot, right (primary encounter diagnosis) COMPOUNDED PRESCRIPTION New CPAP with supplies CPAP pressure 12 cm H2O. 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 ALLERGIES Allergen Reactions Codeine Shortness of Breath Vicodin [Hydrocodon* Intolerance cardiac arrest Adhesive Rash Augmentin [Amoxicil* Shortness of Breath Called and complained that caused SOB Biaxin [Clarithromy* Mental Status Change Cardizem [Diltiazem] Intolerance itching Ciprofloxacin Other: See Comments Muscle pain Clonidine Intolerance low heart rate to 42; BP also dropped; tried patch and was okay for a while but then stopped since affected thinking Coreg [Carvedilol] Intolerance grumpy, runny nose Crestor [Rosuvastat* Intolerance muscle aches all over Cymbalta [Duloxetin* Other: See Comments Elevated BP and blood sugar went up Dicyclomine Shortness of Breath Diovan [Valsartan] Swelling In feet, legs & ankles Doxycycline Vomiting Vomiting after the first dose, intense. Flagyl [Metronidazo* Itching Guaifenesin-Sodium * Intolerance jittery Levofloxacin Other: See Comments Muscle pain Losartan Other: See Comments Made me lose hair. Low back pain, stomach upset Lovastatin Intolerance Muscle aches all over Mobic [Meloxicam] lips swell Morphine Itching possibly was from the IV or tape since was from IV morphine; only affected arm of hand had IV in Nifedipine Intolerance palpitations; also to see if runny nose resolved (did not) Norvasc [Amlodipine* Swelling Sulfa (Sulfonamide * Rash Ultravist [Iopromid* Other: See Comments Pt sts with previous cat scan she had delayed chest tightness ACTIVE PROBLEM LIST Ipf (Idiopathic Pulmonary Fibrosis) ([facility]) - 05/05/2023 Svt (Supraventricular Tachycardia) ([facility]) - 08/18/2022 Obesity, Class II, Bmi 35-39.9 - 08/18/2022 Ild (Interstitial Lung Disease) ([facility]) - 09/29/2019 History of Supraventricular Tachycardia - 10/24/2018 Pvc's (Premature Ventricular Contractions) - 10/02/2018 Premature Atrial Contractions - 10/02/2018 Palpitations - 10/02/2018 Lung Nodule - 01/23/2017 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 Perry managing; biopsy 02/29/12 Shortness of Breath On Exertion - 10/27/2013 Comment: Has been having SOB for a long time but worse in the last 1 week, 2 weeks ago she had throat drainage and soreness, She had a culture which was negative She was given ABX on Thursday Developed a fever after that so she cont taking the abx although she initially didn't want to Lipoma of Unspecified Site - 01/13/2013 Abdominal Mass - 12/23/2012 Osteopenia - 12/14/2012 Comment: [facility] 10/2012 osteopenia, outside BMD in 2010 also showed osteopenia Occipital Neuralgia - 09/29/2012 Coronary Artery Disease Involving [place] Coronary Artery of [place] Without Angina Pectoris - 04/16/2012 Personal History of Colonic Polyps - 01/07/2012 Osteoarthritis - 06/27/2011 Comment: Dr. Cuellar, rheumatology in [facility]. Other Hammer Toe (Acquired) - 04/21/2011 Ddd (Degenerative Disc Disease), Cervical - 04/11/2011 Comment: hx sciatica Cervical Spondylosis Without Myelopathy - 01/31/2011 Porokeratosis - 12/18/2010 Vitamin D Deficiency - 04/18/2009 Hyperlipidemia - 04/05/2009 Gerd (Gastroesophageal Reflux Disease) Obstructive Sleep Apnea - 10/12/2007 Comment: Unable to tolerate CPAP. Uses night oxygen at 2l n/c due to hx desat. Essential Hypertension - 04/01/2007 Mild Intermittent Asthma With Acute Exacerbation Diaphragmatic Hernia Comment: Hiatal hernia Social History Tobacco Use Smoking status: Former Packs/day: 1.00 Years: 12.00 Additional pack years: 0.00 Total pack years: 12.00 Types: Cigarettes Start date: 02/21/1963 Quit date: 03/30/1972 Years since quittin.3 Smokeless tobacco: Never Tobacco comments: Mother smoked in childhood home, spouse of 45 years also smoked in home. Vaping Use Vaping Use: Never used Substance Use Topics Alcohol use: No Drug use: No Review of Systems Constitutional: Positive for fatigue. Respiratory: Negative. Cardiovascular: Negative. Musculoskeletal: Positive for arthralgias. OBJECTIVE BP 164/100 Pulse 65 Wt 187 lb (84.8kg) SpO2 96% Physical Exam Vitals and nursing note reviewed. Constitutional: General: She is awake. She is not in acute distress. Appearance: Normal appearance. She is well-developed and well-groomed. She is not ill-appearing, toxic-appearing or diaphoretic. HENT: Head: Normocephalic. Right Ear: External ear normal. Left Ear: External ear normal. Nose: Nose normal. Eyes: General: Vision grossly intact. Conjunctiva/sclera: Conjunctivae normal. Pupils: Pupils are equal, round, and reactive to light. Neck: Vascular: No JVD. Trachea: Trachea normal. Cardiovascular: Rate and Rhythm: Normal rate and regular rhythm. Pulses: Normal pulses. Heart sounds: Normal heart sounds. No murmur heard. Pulmonary: Effort: Pulmonary effort is normal. No accessory muscle usage, prolonged expiration or respiratory distress. Breath sounds: Normal breath sounds. Musculoskeletal: Cervical back: Neck supple. Skin: General: Skin is warm and dry. Capillary Refill: Capillary refill takes less than 2 seconds. Neurological: General: No focal deficit present. Mental Status: She is alert and oriented to person, place, and time. Mental status is at baseline. Psychiatric: Attention and Perception: Attention and perception normal. Mood and Affect: Mood and affect normal. Speech: Speech normal. Behavior: Behavior normal. Behavior is cooperative. Thought Content: Thought content normal. Cognition and Memory: Cognition and memory normal. Judgment: Judgment normal. ASSESSMENT/PLAN: 1. Chronic pain of left knee - ICD9: 719.46, 338.29, ICD10: M25.562, G89.29 (primary diagnosis) We will refer to ortho, short term percocet for pain control. Would like to see [facility]. - CONSULT TO ORTHOPAEDICS - OXYCODONE-ACETAMINOPHEN 5 MG-325 MG TABLET 2. Chronic right shoulder pain - ICD9: 719.41, 338.29, ICD10: M25.511, G89.29 See #1 - CONSULT TO ORTHOPAEDICS - OXYCODONE-ACETAMINOPHEN 5 MG-325 MG TABLET 3. Urinary frequency - ICD9: 788.41, ICD10: R35.0 acute - UA positive for sarah esterase - Send urine for culture - Patient education for prevention given - UA DIP B/O - URINE CULTURE 4. Type 2 diabetes mellitus with diabetic neuropathy, without long-term current use of insulin (HCC) - ICD9: 250.60, 357.2, ICD10: E11.40 - Control undetermined, due for labs - Continue current medications - Counseled on healthy diet and regular exercise - HEMOGLOBIN A1C 5. Screening for thyroid disorder - ICD9: V77.0, ICD10: Z13.29 - THYROID STIMULATING HORMONE 6. Encounter for therapeutic drug monitoring - ICD9: V58.83, ICD10: Z51.81 - COMPLETE BLOOD COUNT AND DIFFERENTIAL - COMPREHENSIVE METABOLIC PANEL - MAGNESIUM Portions of this note have been entered by ancillary staff. I have reviewed and when necessary edited, so that they are an adequate record of my encounter with this patient Please note that parts of this document were created using voice recognition software and therefore may contain grammatical errors. Patient verbalizes understanding of instructions from today's visit and in agreement with treatment plan. Questions answered. Agrees to call the office if questions, concerns of issues with acute symptoms not improving or if they worsen. See diagnoses and orders for additional plan(s). Allergies and medications were reviewed, list was updated, and refills given if needed. Past medical, surgical, social, and family history reviewed and updated as appropriate. Encouraged proper diet & exercise as well as compliance with taking medications. Age-appropriate health preventative measures were discussed. Return if symptoms worsen or fail to improve, for Keep next scheduled appointment.. Kojo Frederick APRN-JACKIE documented in this encounter [facility] 05-18-2023 History of Present illness Narrative Radiology Service Progress Note PATIENT NAME: Whitney Ruiz DATE OF SERVICE: May 18, 2023 TIME: 11:39 AM PATIENT IDENTITY VERIFICATION COMPLETED USING TWO (2) IDENTIFIERS: Name and Date of confirmed by patient verbally. FALL SCREENING: Has the patient had 2 falls in the last year or 1 fall with injury or currently using an Ambulatory Assistive Device (Walker, Cane, Wheelchair, Crutches, etc.)? No PATIENT GENDER DATA: Female. status: : No status: NO. PATIENT RELEVANT IMPLANT DATA REVIEWED: Not Applicable PATIENT PRESENTS WITH AN IMPLANTABLE OR ATTACHED SKILLED HELPER: No RADIOLOGY DEPARTMENT: Ultrasound PERIPHERAL IV DATA: Not applicable SIGNED BY: Magy Francois RDMS RVT May 18, 2023 11:39 AM documented in this encounter [facility] 05-05-2023 History of Present illness Narrative Radiology Service Progress Note PATIENT NAME: Whitney Ruiz DATE OF SERVICE: May 05, 2023 TIME: 11:41 AM PATIENT IDENTITY VERIFICATION COMPLETED USING TWO (2) IDENTIFIERS: Name and Date of confirmed by patient verbally. FALL SCREENING: Has the patient had 2 falls in the last year or 1 fall with injury or currently using an Ambulatory Assistive Device (Walker, Cane, Wheelchair, Crutches, etc.)? Yes, Patient High Risk for Falls What interventions were put in place to prevent falls during this visit? Offered Assistance with Transfers/Clothing and Instructed Patient to Remain Seated (Not on Exam Table) Until Exam PATIENT GENDER DATA: Female. status: : No status: NO. PATIENT RELEVANT IMPLANT DATA REVIEWED: Not Applicable PATIENT PRESENTS WITH AN IMPLANTABLE OR ATTACHED SKILLED HELPER: No RADIOLOGY DEPARTMENT: General X-ray: Exam(s) Completed: Upper Extremity X-Ray(s): Shoulder, AP / TRUE AP / AXILLARY right PERIPHERAL IV DATA: Not applicable SIGNED BY: RT Ricci(R) May 05, 2023 11:41 AM documented in this encounter [facility] 05-05-2023 History of Present illness Narrative SUBJECTIVE Whitney Ruiz is a 78 year old female here today for a check up on her medical problems. Chief Complaint Patient presents with: F/U 3 Month HPI Whitney Ruiz is a 78 year old female. She presents today for a 3 month follow up. Last seen 01/28. Seen with ENT, having some throat discomfort. Prior issues with thyroid nodules. Having some heartburn/reflux that is more noticeable now and a lot of drainage. Last thyroid ultrasound was done in 2021. Has Prilosec at home that she has taken in the past. Also, wondering about getting a script for the prior as needed percocet. She uses this at a very low dose, very sparingly for her back pain. Some right shoulder pain too. She is right handed. Prior RANCHO positive but negative other testing. Otherwise she is doing okay. Breathing well controlled. Blood sugars stable. Her medications were reviewed today and her list is now up to date. Medications Current Outpatient Medications Medication Sig flash glucose sensor (FREESTYLE ALEX 2 SENSOR) kit 1 Each every 2 weeks. E11.9 DM type 2, Insulin: No clobetasol (TEMOVATE) 0.05 % ointment Apply 1 application to affected area two times a day as needed. TO AFFECTED AREA. nystatin (MYCOSTATIN) powder Apply 1 application to affected area four times daily. As directed furosemide (LASIX) 10 mg/mL solution Take by mouth as directed. [facility] NASAL OINTMENT Apply to affected area two times a day. azelastine 0.1% nasal spray Use 1 Coleman in each nostril twice daily. Cholecalciferol, Vitamin D3, 125 mcg (5,000 unit) cap Take 1 capsule by mouth once daily. mecobalamin (B12 ACTIVE ORAL) Take by mouth. cholecalciferol, vitD3,/vit K2 (VITAMIN D3-VITAMIN K2 ORAL) Take 1 capsule by mouth once daily. omeprazole (PRILOSEC) 20 mg capsule Take 1 capsule by mouth once daily. as directed torsemide (DEMADEX) 10 mg tablet Take 1 tablet by mouth once daily as needed (edema). metoprolol tartrate, short acting, (LOPRESSOR) 50 mg tablet Take 1 tablet by mouth twice daily. glipiZIDE (GLUCOTROL XL) 2.5 mg 24 hr tablet Take 1 tablet by mouth once daily. flash glucose scanning reader (FREESTYLE ALEX 2 READER) Check sugars at least 4 times daily Lancets lancets Test blood sugar(s) 2 times daily and as needed. To go with lancet pen with glucometer Dx: Type 2 DM - Controlled E11.9 Insulin: No albuterol HFA (PROVENTIL HFA, VENTOLIN HFA) 90 mcg/actuation inhaler Inhale 1-2 Puffs as instructed every 4 hours as needed (for wheezing and shortness of breath). potassium chloride (K-TAB) 10 mEq tablet Take 1 tablet by mouth once daily as needed (When taking diuretic). DAILY blood sugar diagnostic (BLOOD GLUCOSE TEST) test strip Test blood sugar(s) 2 times daily and as needed for symptoms of high or low sugars. Dx: Type 2 DM - Controlled E11.9 Insulin: No. Labile sugars that sometimes drop low so needs to check at least twice daily (taking glipizide) CPAP Change settings of Auto PAP to 5-15 cm of water with humidification. Continue orders for: Mask (per patient preference) optional chin strap (if indicated) , filters, tubing, humidifier and lifetime supplies. Per patient insurance will not replace supplies - so request repair and provision of loaner CPAP. fluticasone (FLONASE) 50 mcg/actuation nasal spray Use 1 Coleman in each nostril once daily. (Patient taking differently: Use 1 Coleman in each nostril once daily. Takes daily as needed) Lactobacillus acidophilus (PROBIOTIC ORAL) Take by mouth. MULTI-VITAMIN ORAL Take by mouth. COMPOUNDED PRESCRIPTION Powerstep full length original insert (M12.571) Traumatic arthritis of foot, right (primary encounter diagnosis) COMPOUNDED PRESCRIPTION New CPAP with supplies CPAP pressure 12 cm H2O. 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 aspirin, enteric coated (ASPIRIN, ENTERIC COATED) 81 mg EC tablet Take 81 mg by mouth once daily. oxyCODONE-acetaminophen (PERCOCET) 5-325 mg tablet Take 1 tablet by mouth every 8 hours as needed for pain for up to 5 days. L. acidophilus/Bifid. animalis 15.5 billion cell cap Take by mouth. (Patient not taking: Reported on 01/28/2023) ipratropium-albuterol (DUONEB) 0.5 mg-3 mg(2.5 mg base)/3 mL nebu Inhale 3 mL as instructed every 6 hours. Unit dose pack (Patient not taking: Reported on 01/28/2023) No current facility-administered medications for this visit. ALLERGIES Allergen Reactions Codeine Shortness of Breath Vicodin [Hydrocodon* Intolerance cardiac arrest Adhesive Rash Augmentin [Amoxicil* Shortness of Breath Called and complained that caused SOB Biaxin [Clarithromy* Mental Status Change Cardizem [Diltiazem] Intolerance itching Ciprofloxacin Other: See Comments Muscle pain Clonidine Intolerance low heart rate to 42; BP also dropped; tried patch and was okay for a while but then stopped since affected thinking Coreg [Carvedilol] Intolerance grumpy, runny nose Crestor [Rosuvastat* Intolerance muscle aches all over Cymbalta [Duloxetin* Other: See Comments Elevated BP and blood sugar went up Dicyclomine Shortness of Breath Diovan [Valsartan] Swelling In feet, legs & ankles Doxycycline Vomiting Vomiting after the first dose, intense. Flagyl [Metronidazo* Itching Guaifenesin-Sodium * Intolerance jittery Levofloxacin Other: See Comments Muscle pain Losartan Other: See Comments Made me lose hair. Low back pain, stomach upset Lovastatin Intolerance Muscle aches all over Mobic [Meloxicam] lips swell Morphine Itching possibly was from the IV or tape since was from IV morphine; only affected arm of hand had IV in Nifedipine Intolerance palpitations; also to see if runny nose resolved (did not) Norvasc [Amlodipine* Swelling Sulfa (Sulfonamide * Rash Ultravist [Iopromid* Other: See Comments Pt sts with previous cat scan she had delayed chest tightness ACTIVE PROBLEM LIST Ipf (Idiopathic Pulmonary Fibrosis) ([facility]) - 05/05/2023 Svt (Supraventricular Tachycardia) - 08/18/2022 Obesity, Class II, Bmi 35-39.9 - 08/18/2022 Ild (Interstitial Lung Disease) ([facility]) - 09/29/2019 History of Supraventricular Tachycardia - 10/24/2018 Pvc's (Premature Ventricular Contractions) - 10/02/2018 Premature Atrial Contractions - 10/02/2018 Palpitations - 10/02/2018 Lung 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 Perry managing; biopsy 02/29/12 Shortness of Breath On Exertion - 10/27/2013 Comment: Has been having SOB for a long time but worse in the last 1 week, 2 weeks ago she had throat drainage and soreness, She had a culture which was negative She was given ABX on Thursday Developed a fever after that so she cont taking the abx although she initially didn't want to Lipoma of Unspecified Site - 01/13/2013 Abdominal Mass - 12/23/2012 Osteopenia - 12/14/2012 Comment: BMP 10/2012 osteopenia, outside BMD in 2010 also showed osteopenia Occipital Neuralgia - 09/29/2012 Coronary Artery Disease Involving [place] Coronary Artery of [place] Heart Without Angina Pectoris - 04/16/2012 Personal History of Colonic Polyps - 01/07/2012 Osteoarthritis - 06/27/2011 Comment: Dr. Cuellar, rheumatology in [facility]. Other Hammer Toe (Acquired) - 04/21/2011 Ddd (Degenerative Disc Disease), Cervical - 04/11/2011 Comment: hx sciatica Cervical Spondylosis Without Myelopathy - 01/31/2011 Porokeratosis - 12/18/2010 Vitamin D Deficiency - 04/18/2009 Hyperlipidemia - 04/05/2009 Gerd (Gastroesophageal Reflux Disease) Obstructive Sleep Apnea - 10/12/2007 Comment: Unable to tolerate CPAP. Uses night oxygen at 2l n/c due to hx desat. Essential Hypertension - 04/01/2007 Mild Intermittent Asthma With Acute Exacerbation Diaphragmatic Hernia Comment: Hiatal hernia Social History Tobacco Use Smoking status: Former Packs/day: 1.00 Years: 12.00 Additional pack years: 0.00 Total pack years: 12.00 Types: Cigarettes Start date: 02/21/1963 Quit date: 03/30/1972 Years since quittin.1 Smokeless tobacco: Never Tobacco comments: Mother smoked in childhood home, spouse of 45 years also smoked in home. Vaping Use Vaping Use: Never used Substance Use Topics Alcohol use: No Drug use: No Review of Systems Respiratory: Negative. Cardiovascular: Negative. Musculoskeletal: Positive for arthralgias and back pain. OBJECTIVE BP 154/91 Pulse 59 Resp 16 Wt 186 lb 9.6 oz (84.6kg) SpO2 97% Physical Exam Vitals and nursing note reviewed. Constitutional: General: She is awake. She is not in acute distress. Appearance: Normal appearance. She is well-developed and well-groomed. She is not ill-appearing, toxic-appearing or diaphoretic. HENT: Head: Normocephalic. Right Ear: External ear normal. Left Ear: External ear normal. Nose: Nose normal. Eyes: General: Vision grossly intact. Conjunctiva/sclera: Conjunctivae normal. Pupils: Pupils are equal, round, and reactive to light. Neck: Vascular: No JVD. Trachea: Trachea normal. Cardiovascular: Rate and Rhythm: Normal rate and regular rhythm. Pulses: Normal pulses. Heart sounds: Normal heart sounds. No murmur heard. Pulmonary: Effort: Pulmonary effort is normal. No accessory muscle usage, prolonged expiration or respiratory distress. Breath sounds: Normal breath sounds. Musculoskeletal: Cervical back: Neck supple. Skin: General: Skin is warm and dry. Capillary Refill: Capillary refill takes less than 2 seconds. Neurological: General: No focal deficit present. Mental Status: She is alert and oriented to person, place, and time. Mental status is at baseline. Psychiatric: Attention and Perception: Attention and perception normal. Mood and Affect: Mood and affect normal. Speech: Speech normal. Behavior: Behavior normal. Behavior is cooperative. Thought Content: Thought content normal. Cognition and Memory: Cognition and memory normal. Judgment: Judgment normal. ASSESSMENT/PLAN: 1. Gastroesophageal reflux disease, unspecified whether esophagitis present - ICD9: 530.81, ICD10: K21.9 (primary diagnosis) - Discussed lifestyle modifications including losing weight, limiting caffeine, no meals three hours before sleep, and head of bed elevation - Restart the OTC prilosec she has at home, can increase to 40 mg daily if needed. 2. IPF (idiopathic pulmonary fibrosis) ([facility]) - ICD9: 516.31, ICD10: J84.112 Stable 3. ILD (interstitial lung disease) ([facility]) - ICD9: 515, ICD10: J84.9 Stable 4. Type 2 diabetes mellitus with diabetic neuropathy, without long-term current use of insulin (HCC) - ICD9: 250.60, 357.2, ICD10: E11.40 - Controlled - Continue current medications - Counseled on healthy diet and regular exercise 5. Thyroid nodule - ICD9: 241.0, ICD10: E04.1 - US THYROID/PARATHYROID 6. DDD (degenerative disc disease), cervical - ICD9: 722.4, ICD10: M50.30 - OXYCODONE-ACETAMINOPHEN 5 MG-325 MG TABLET 7. Chronic right shoulder pain - ICD9: 719.41, 338.29, ICD10: M25.511, G89.29 - OXYCODONE-ACETAMINOPHEN 5 MG-325 MG TABLET - XR SHOULDER GENERAL 3V OR MORE AP/TRUE AP/OTHER RIGHT Portions of this note have been entered by ancillary staff. I have reviewed and when necessary edited, so that they are an adequate record of my encounter with this patient Please note that parts of this document were created using voice recognition software and therefore may contain grammatical errors. Patient verbalizes understanding of instructions from today's visit and in agreement with treatment plan. Questions answered. Agrees to call the office if questions, concerns of issues with acute symptoms not improving or if they worsen. See diagnoses and orders for additional plan(s). Allergies and medications were reviewed, list was updated, and refills given if needed. Past medical, surgical, social, and family history reviewed and updated as appropriate. Encouraged proper diet & exercise as well as compliance with taking medications. Age-appropriate health preventative measures were discussed. Return if symptoms worsen or fail to improve, for Keep next scheduled appointment.. Kojo Frederick APRN-JACKIE documented in this encounter [facility] 03-13-2023 History of Present illness Narrative Subjective Patient ID: Arlette Ruiz is a 77 y.o. female who presents for Pulmonary Fibrosis (Patient is here for follow up visit. Patient states her breathing is good. Patient has productive cough in morning. Patient uses inhaler daily. Patient has cpap using nightly. Patient had PFT done and waiting on the results. / ).' HPI Ms. Ruiz is a 77 yo female with PMH of Pulmonary fibrosis and asthma presents for a second opinion. She states that she first saw black oxide operator Dr. Potter at [facility] in 2014 due to cough and was diagnosed with Idiopathic Pulmonary Fibrosis. She later started seeing Dr. Giuliano Nolasco who informed her that she did not have IPF and did work up for Histoplasmosis and HP and later bronchoscopy in 2017. She has been seeing Dr. Myriam Obrien now since Dr. Nolasco retired and she was again told to have IPF. She presents today for evaluation and management. She states that she has significant postnasal drip, intermittent cough and her SOB is primarily with strenuous activity. She is not on Home O2. She does have EMY and uses CPAP nightly through [facility]. She [place] and gets significant exposure. She is here for follow up. She states she is not SOB on usual activity but more than usual or strenuous activity makes her SOB. She gets coughing spell in the morning and has occasional wheezing which is relieved with albuterol. She did not like Symbicort because she felt it caused some soreness in her throat. Review of Systems Constitutional: Negative for chills, fever and unexpected weight change. HENT: Positive for postnasal drip and rhinorrhea. Respiratory: Positive for cough and shortness of breath. Cardiovascular: Negative for chest pain, palpitations and leg swelling. Gastrointestinal: As in HPI Musculoskeletal: Negative for arthralgias and gait problem. Skin: Negative for rash. All other systems reviewed and are negative. Objective Physical Exam Vitals and nursing note reviewed. Constitutional: Appearance: Normal appearance. HENT: Head: Normocephalic. Nose: Nose normal. Mouth/Throat: Pharynx: Oropharynx is clear. Eyes: Extraocular Movements: Extraocular movements intact. Conjunctiva/sclera: Conjunctivae normal. Pupils: Pupils are equal, round, and reactive to light. Cardiovascular: Rate and Rhythm: Normal rate and regular rhythm. Pulses: Normal pulses. Heart sounds: Normal heart sounds. Pulmonary: Effort: Pulmonary effort is normal. Breath sounds: Examination of the right-lower field reveals decreased breath sounds. Examination of the left-lower field reveals decreased breath sounds. Decreased breath sounds present. Abdominal: General: Bowel sounds are normal. Palpations: Abdomen is soft. Musculoskeletal: General: Normal range of motion. Cervical back: Normal range of motion. Skin: General: Skin is warm. Neurological: General: No focal deficit present. Mental Status: She is alert and oriented to person, place, and time. Mental status is at baseline. Psychiatric: Mood and Affect: Mood normal. Behavior: Behavior normal. Assessment/Plan Moderate persistent asthma ILD EMY Allergic rhinitis Class 2 obesity Recommendations: -ILD work up has been done before. CTD was negative. HP panel results not available. H/o bronchoscopy with BAL at [facility] with Dr. Nolasco. -Reviewed CT chest Nov 2022: patient has had subpleural reticulation in bilateral bases since 2016 but on review has not progressed. 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 The CT chest from 2014 is not available for review. -D/w pt and her son Eloise. There is no characteristic e/o IPF that was initially diagnosed in 2014 and symptoms have not progressed. Patient is not O2 dependent. The CT chest comparison does not show progressive honeycombing. I discussed with patient that IPF is not totally ruled out but clinical picture may be s/o other ILDs. VATS bx would be ideal for diagnosis but at present we will defer due to risks exceeding benefits. If this appears to be a PPF, progressive pulmonary fibrosis on follow up, we will offer OFEV therapy. At this time her symptoms are mostly uncontrolled secondary to asthma and allergic rhinitis. She has corn lakhani behind her house -She did not like Symbicort but does feel improvement with albuterol. Does notice improvement in sinus symptoms with Dymista partially. Avoid allergen exposure. Normal RAST and HP. Repeat PFTs discussed: normal idalia, volumes and DLCO reported. -Continue CPAP therapy for EMY. She still has some residual EDS and fatigue. I adjusted her APAP from 5-15 cwp to 10-15 cwp since P95 12.4 cwp. Changed auto ramp to ramp x 15 min and set up EPR. Discussed with patient and he son Eloise: Continue asthma management with prn albuterol and focus on managing allergic rhinitis with Dymista nasal spray and add Montelukast HS. I have also adjusted her CPAP. No radiographic progression of ILD is noted. Symptoms are controlled. Follow up in 6 to 12 months. documented in this encounter [facility] Work Phone: 03-13-2023 Instructions Johanna Patino MD - 03/13/2023 11:00 AM EST Please continue using albuterol inhaler as needed for shortness of breath and wheezing. Continue using azelastine-fluticasone nasal spray 1 spray in each nostril twice daily. If this is not covered, we will give these medicines in 2 separate sprays. Start taking Montelukast 1 tablet nightly at bedtime. Continue to use CPAP nightly and I have made adjustments to your machine. Please give it a week to get used to new settings. We can send supplies to [facility] whenever you require. Follow up in 6-7 months. documented in this encounter [facility] Work Phone: 03-10-2023 History of Present illness Narrative Subjective Arlette Ruiz is a 77 y.o. female who presents for the following: Skin Check (Patient presents to office today for FBSE. Denies pain, itching, bleeding. No further complaints.). Review of Systems: No other skin or systemic complaints other than what is documented elsewhere in the note. The following portions of the chart were reviewed this encounter and updated as appropriate: Skin Cancer History No skin cancer on file. Specialty Problems Dermatology Problems Hemangioma of skin and subcutaneous tissue Inflamed seborrheic keratosis Other hypertrophic disorders of the skin Other melanin hyperpigmentation Other seborrheic keratosis Objective Well appearing patient in no apparent distress; mood and affect are within normal limits. A full examination was performed including scalp, head, eyes, ears, nose, lips, neck, chest, axillae, abdomen, back, buttocks, bilateral upper extremities, bilateral lower extremities, hands, feet, fingers, toes, fingernails, and toenails. All findings within normal limits unless otherwise noted below. Assessment/Plan 1. Encounter for screening for malignant neoplasm of skin Scattered benign lesions - Protective measures, such as avoiding skin exposure to sunlight during peak sun hours (10 AM to 3 PM), wearing protective clothing, and applying high-SPF sunscreen, are essential for reducing exposure to harmful ultraviolet (UV) light. - Monthly self-examination of the skin is helpful to detect new lesions or changes in existing lesions. - Discussed signs and symptoms of sun-related skin cancers. - Make sure your moles are not signs of skin cancer (melanoma). Remember the ABCDEs of melanoma lesions: A - Asymmetry: One half of the lesion does not mirror the other half. B - Border: The borders are irregular or vague (indistinct). C - Color: More than one color may be noted within the mole. D - Diameter: Size greater than 6 mm (roughly the size of a pencil eraser) may be concerning. E - Evolving: Notable changes in the lesion over time are suspicious signs for skin cancer. Related Procedures Follow Up In Dermatology - Established Patient 2. Hemangioma of skin Violaceous/red papule with maroon lagoons - A ferrer hemangioma is a small macule (small, flat, smooth area) or papule (small, solid bump) formed from an overgrowth of tiny blood vessels in the skin. Ferrer hemangiomas are characteristically red or purplish in color. They often first appear in middle adulthood and usually increase in number with age. Ferrer hemangiomas are noncancerous (benign) and are common in adults. - Lesions are benign, reassured patient. 3. Skin tag Fleshy, skin-colored sessile and pedunculated papules. Acrochordon (skin tag) - The benign nature of the lesion was discussed with patient. - A skin tag (acrochordon) is a common, possibly inherited condition that manifests as small, flesh-colored growths on a thin stalk. Skin tags are benign lesions that can sometimes become irritated or traumatized. - Skin tags are very common, and their incidence increases with age. Seen more often in people with growth hormone excess (acromegaly). - Skin tags are most commonly found on the eyelids, neck, armpits, and groin area. They are flesh-colored growths on a thin stalk, ranging in size from small to large. 4. Seborrheic keratosis Stuck on verrucous, alvarado-brown papules and plaques. Although Seborrheic Keratoses can be troublesome and unsightly, they are entirely benign. Removal of Seborrheic Keratoses is considered a cosmetic procedure. Removal is typically performed using liquid nitrogen cryotherapy. Treatment of current lesions does not prevent the development of new Seborrheic Keratoses in the future. 5. Lentigo Scattered alvarado macules in sun-exposed areas. A solar lentigo (plural, solar lentigines), sometimes called an age spot or liver spot, is a brown macule (small, flat, smooth area of skin) caused by chronic sun or artificial ultraviolet (UV) light exposure. There may be just one lentigo or there may be multiple. This type of lentigo is different from lentigo simplex (discussed separately) because it is caused by exposure to UV light. Solar lentigines are benign, but they do indicate excessive sun exposure, a risk factor for the development of skin cancer. Lesions are benign, no treatment needed. documented in this encounter [facility] Work Phone: 02-16-2023 Instructions Keyonna Bolton - 02/16/2023 1:30 PM EST For your blood pressure, please restart the lisinopril 10 mg daily in the morning. A prescription has been sent to your pharmacy. Continue all other medications as prescribed. Continue to monitor your blood pressure at home and contact our office if it remains elevated. For the swelling in your legs, Dr. Lambert has recommended that you wear compression stockings throughout the day; put on first thing in the morning, take off at night before bed. Followup with Dr. Lambert in 6 months. If you have any questions or cardiac concerns, please call our office at [phone]. documented in this encounter [facility] Work Phone: 01-28-2023 History of Present illness Narrative This note was created using AISriter. Subjective Whitney Ruiz is a 77 year old female. Patient presents with: F/U 3 Month SUBJECTIVE: Whitney Ruiz is a 77 year old year old lady here today for 3 month follow up appointment for review of medical conditions. Wonders if lichen sclerosus flared up--ran out of clobetasol a few months ago. Pain and burning now. Saw another black oxide operator and told does not think she has IPF based on his review of CT and her symptoms. Did breathing test. Reviewed that our black oxide operator said not IPF but ILD that has been stable with PFTs. Noted BMs with small stool hard to move. Asked about PrepH. Can be every other day to every 3 days at the most. Has some senna but has not taken yet. Apples help. Had shot in knee--did not do well. Had persistent pain after the injection. [place] really tired. So did daughter. Muscles in thighs and posterior hip muscles feel week and makes it hard to walk. Gets pain across lower back and buttocks with stiffness. Hard to stand up. Doing well on CPAP. Uses nightly and benefits from use. Gets supplies from [employer] [phone]. PAST MEDICAL HISTORY Diagnosis Date CAD (coronary artery disease) 04/16/2012 70-80% LAD --had stent placed 09/07/14 Depressive disorder, not elsewhere classified Diverticulitis of colon with hemorrhage 2001 DM w/o Complication Type II 04/05/2009 GERD (gastroesophageal reflux disease) Hiatal hernia Hypertension 03/30/1988 IPF (idiopathic pulmonary fibrosis) (HCC) Irritable bowel syndrome Occipital neuralgia Osteoarthritis 06/27/2011 Other chronic sinusitis Other osteoporosis Post-nasal drip Situational depression 12/27/2014 Sleep apnea 03/30/1996 Statin intolerance 12/24/2016 SVT (supraventricular tachycardia) 10/02/2018 Thoracic aortic aneurysm (HCC) [address] chest (2014, 2013)--July 09, [address] Unspecified essential hypertension Patient has had since age 33 Vitamin D Deficiency 04/18/2009 Current Outpatient Medications Medication Sig oxyCODONE-acetaminophen (PERCOCET) 5-325 mg tablet Take 1 tablet by mouth every 6 hours. furosemide (LASIX) 10 mg/mL solution Take by mouth as directed. [facility] NASAL OINTMENT Apply to affected area two times a day. azelastine 0.1% nasal spray Use 1 Coleman in each nostril twice daily. Cholecalciferol, Vitamin D3, 125 mcg (5,000 unit) cap Take 1 capsule by mouth once daily. mecobalamin (B12 ACTIVE ORAL) Take by mouth. cholecalciferol, vitD3,/vit K2 (VITAMIN D3-VITAMIN K2 ORAL) Take 1 capsule by mouth once daily. omeprazole (PRILOSEC) 20 mg capsule Take 1 capsule by mouth once daily. as directed torsemide (DEMADEX) 10 mg tablet Take 1 tablet by mouth once daily as needed (edema). metoprolol tartrate, short acting, (LOPRESSOR) 50 mg tablet Take 1 tablet by mouth twice daily. glipiZIDE (GLUCOTROL XL) 2.5 mg 24 hr tablet Take 1 tablet by mouth once daily. flash glucose scanning reader (BUSINESS INTELLIGENCE INTERNATIONALSTYLE ALEX 2 READER) Check sugars at least 4 times daily flash glucose sensor (FREESTYLE ALEX 2 SENSOR) kit 1 Each every 2 weeks. E11.9 DM type 2, Insulin: No Lancets lancets Test blood sugar(s) 2 times daily and as needed. To go with lancet pen with glucometer Dx: Type 2 DM - Controlled E11.9 Insulin: No albuterol HFA (PROVENTIL HFA, VENTOLIN HFA) 90 mcg/actuation inhaler Inhale 1-2 Puffs as instructed every 4 hours as needed (for wheezing and shortness of breath). potassium chloride (K-TAB) 10 mEq tablet Take 1 tablet by mouth once daily as needed (When taking diuretic). DAILY blood sugar diagnostic (BLOOD GLUCOSE TEST) test strip Test blood sugar(s) 2 times daily and as needed for symptoms of high or low sugars. Dx: Type 2 DM - Controlled E11.9 Insulin: No. Labile sugars that sometimes drop low so needs to check at least twice daily (taking glipizide) CPAP Change settings of Auto PAP to 5-15 cm of water with humidification. Continue orders for: Mask (per patient preference) optional chin strap (if indicated) , filters, tubing, humidifier and lifetime supplies. Per patient insurance will not replace supplies - so request repair and provision of loaner CPAP. fluticasone (FLONASE) 50 mcg/actuation nasal spray Use 1 Coleman in each nostril once daily. (Patient taking differently: Use 1 Coleman in each nostril once daily. Takes daily as needed) Lactobacillus acidophilus (PROBIOTIC ORAL) Take by mouth. MULTI-VITAMIN ORAL Take by mouth. COMPOUNDED PRESCRIPTION New CPAP with supplies CPAP pressure 12 cm H2O. 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 aspirin, enteric coated (ASPIRIN, ENTERIC COATED) 81 mg EC tablet Take 81 mg by mouth once daily. L. acidophilus/Bifid. animalis 15.5 billion cell cap Take by mouth. (Patient not taking: Reported on 01/28/2023) ipratropium-albuterol (DUONEB) 0.5 mg-3 mg(2.5 mg base)/3 mL nebu Inhale 3 mL as instructed every 6 hours. Unit dose pack (Patient not taking: Reported on 01/28/2023) COMPOUNDED PRESCRIPTION Powerstep full length original insert (M12.571) Traumatic arthritis of foot, right (primary encounter diagnosis) (Patient not taking: Reported on 01/28/2023) No current facility-administered medications for this visit. Review of Systems Objective BP 136/81 Pulse (!) 54 Temp 36.6 C (97.9 F) Resp 18 Wt 85.7 kg (189 lb) SpO2 98% BMI 38.17 kg/m Last 5 Encounter Wt Readings: Date: Wt: 01/28/2023 85.7 kg (189 lb) 12/12/2022 82.6 kg (182 lb) 12/05/2022 82.6 kg (182 lb) 11/13/2022 83.7 kg (184 lb 9.6 oz) 11/05/2022 84.1 kg (185 lb 8 oz) No waist measurement recorded Estimated body mass index is 38.17 kg/m as calculated from the following: Height as of 04/21/22: 149.9 cm (4' 11). Weight as of this encounter: 85.7 kg (189 lb). Last 5 Encounter BP Readings: Date: BP: 01/28/2023 136/81 12/12/2022 124/76 12/05/2022 120/88 11/13/2022 138/98 11/05/2022 132/78 Physical Exam Constitutional: Appearance: Normal appearance. HENT: Head: Normocephalic. Eyes: Conjunctiva/sclera: Conjunctivae normal. Cardiovascular: Rate and Rhythm: Normal rate and regular rhythm. Heart sounds: Normal heart sounds. Pulmonary: Effort: Pulmonary effort is normal. Breath sounds: Normal breath sounds. Musculoskeletal: Right lower leg: Edema (ankle) present. Left lower leg: Edema (ankle) present. Comments: Not tender over back but pain located over sacral areas and laterally. Skin: General: Skin is warm and dry. Neurological: General: No focal deficit present. Mental Status: She is alert and oriented to person, place, and time. Psychiatric: Mood and Affect: Mood normal. Behavior: Behavior normal. Thought Content: Thought content normal. Judgment: Judgment normal. Assessment and Plan Encounter Diagnosis ICD-10-CM 1. Lichen sclerosus L90.0 clobetasol (TEMOVATE) 0.05 % ointment recurrence of pain in vaginal area as before. Treat again. Refer back to [facility]ARE UNIT NURSE as indicated 2. DDD (degenerative disc disease), lumbar M51.36 Ongoing pain issues. Discussed management 3. Lumbar radicular syndrome M54.16 4. Vitamin D deficiency E55.9 VITAMIN D 25 HYDROXY 5. Type 2 diabetes mellitus with diabetic neuropathy, without long-term current use of insulin (HCC) E11.40 HGB A1C 6. Elevated ferritin R79.89 CBC FERRITIN BLD Continue to monitor. Treat as indicated 7. Encounter for long-term current use of medication Z79.899 HGB A1C COMP METABOLIC PANEL CBC FERRITIN BLD VITAMIN D 25 HYDROXY Above issues addressed with patient. Patient involved in shared decision making for management of medical issues. History and medications reviewed. Epic updated as needed Refills and/or prescriptions taken care of and meds adjusted as indicated after reviewed history, exam and labs. Health Maintenance reviewed. Updated record and/or ordered tests as recorded. Encouraged on efforts at healthy diet and regular exercise and adequate sleep. I spent a total of 51 minutes on the date of the service which included [id number] patient care, completing clinical documentation, obtaining and/or reviewing separately obtained history, performing a medically appropriate examination, counseling and educating the patient/family/caregiver, and ordering medications, tests, or procedures. Kristy Brower MD documented in this encounter [facility] 01-09-2023 History of Present illness Narrative Subjective Patient ID: Whitney Ruiz is a 77 y.o. female who presents for Pulmonary Fibrosis (Patient here for new patient visit. She is here for pulmonary fibrosis. She states her breathing is okay. She admits to shortness of breath when she climbs stairs. Patient admits to a productive cough in the morning with yellow mucous. Patient denies any oxygen at home. Patient admits to a CPAP she wears every night from [employer]. Patient stopped smoking 51 years ago. Patient smoked about 1/2PPD for 7 years. Patient was exposed to second hand smoke. No animals at home. Patient lives [place] [address] [employer]. ).' HPI Ms. Ruiz is a 77 yo female with PMH of Pulmonary fibrosis and asthma presents for a second opinion. She states that she first saw black oxide operator Dr. Potter at [facility] in 2014 due to cough and was diagnosed with Idiopathic Pulmonary Fibrosis. She later started seeing Dr. Giuliano Nolasco who informed her that she did not have IPF and did work up for Histoplasmosis and HP and later bronchoscopy in 2017. She has been seeing Dr. Myriam Obrien now since Dr. Nolasco retired and she was again told to have IPF. She presents today for evaluation and management. She states that she has significant postnasal drip, intermittent cough and her SOB is primarily with strenuous activity. She is not on Home O2. She does have EMY and uses CPAP nightly through [facility]. [place] exposure. Review of Systems Constitutional: Negative for chills, fever and unexpected weight change. HENT: Positive for postnasal drip and rhinorrhea. Respiratory: Positive for cough and shortness of breath. Cardiovascular: Negative for chest pain, palpitations and leg swelling. Gastrointestinal: As in HPI Musculoskeletal: Negative for arthralgias and gait problem. Skin: Negative for rash. All other systems reviewed and are negative. Objective Physical Exam Vitals and nursing note reviewed. Constitutional: Appearance: Normal appearance. HENT: Head: Normocephalic. Nose: Nose normal. Mouth/Throat: Pharynx: Oropharynx is clear. Eyes: Extraocular Movements: Extraocular movements intact. Conjunctiva/sclera: Conjunctivae normal. Pupils: Pupils are equal, round, and reactive to light. Cardiovascular: Rate and Rhythm: Normal rate and regular rhythm. Pulses: Normal pulses. Heart sounds: Normal heart sounds. Pulmonary: Effort: Pulmonary effort is normal. Breath sounds: Examination of the right-lower field reveals decreased breath sounds. Examination of the left-lower field reveals decreased breath sounds. Decreased breath sounds present. Abdominal: General: Bowel sounds are normal. Palpations: Abdomen is soft. Musculoskeletal: General: Normal range of motion. Cervical back: Normal range of motion. Skin: General: Skin is warm. Neurological: General: No focal deficit present. Mental Status: She is alert and oriented to person, place, and time. Mental status is at baseline. Psychiatric: Mood and Affect: Mood normal. Behavior: Behavior normal. Assessment/Plan Moderate persistent asthma ILD EMY Allergic rhinitis Class 2 obesity Recommendations: -ILD work up has been done before. CTD was negative. HP panel results not available. H/o bronchoscopy with BAL at [facility] with Dr. Nolasco. -Reviewed CT chest: patient has had subpleural reticulation in bilateral bases since 2016 but on review has not progressed. 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 The CT chest from 2014 is not available for review. -D/w pt and her son Eloise. There is no characteristic e/o IPF that was initially diagnosed in 2014 and symptoms have not progressed. Patient is not O2 dependent. The CT chest comparison does not show progressive honeycombing. I discussed with patient that IPF is not totally ruled out but clinical picture may be s/o other ILDs. VATS bx would be ideal for diagnosis but at present we will defer due to risks exceeding benefits. If this appears to be a PPF, progressive pulmonary fibrosis on follow up, we will offer OFEV therapy. At this time her symptoms are mostly uncontrolled secondary to asthma and allergic rhinitis. -Recommend start Symbicort and dymista. Avoid allergen exposure. Check RAST and HP. Recommend repeat PFTs. -Continue CPAP therapy for EMY. Will review data and assess need to adjust pressures and consider Noc Pox versus repeat titration. documented in this encounter [facility] Work Phone: 01-09-2023 Instructions Johanna Patino MD - 01/09/2023 11:20 AM EDT Please start using Symbicort 2 puffs twice daily. Start using azelastine-fluticasone nasal spray 1 spray in each nostril twice daily. If this is not covered, we will give these medicines in 2 separate sprays. Complete PFTs and blood work. Continue to use CPAP nightly and bring it with you next time. Our office will obtain data from your DME [employer]. Follow up in 2 months. documented in this encounter [facility] Work Phone: 01-01-2023 History of Present illness Narrative History: Whitney Ruiz, a 77 year old female, presents for eval of chronic runny-nose, freq voice change, PND, need to clear throat for years. On CPAP. H/o pul fibrosis. Occ uses nasonex and sinus rinse. H/o L thyroid nods. US 07/12/21: 3 x 2 x 2.1 cm L inf nod - smaller. US guided FNA L nod 01/11/19: benign. US 12/28/18: 4.2 x 3 x 2.7 cm L nod - larger. US 02/03/18: stable 2.2 x 2.5 x 3.5 L nod (previously read as 2 nodules). US 01/30/17: 1.7 cm and 1.6 cm, stable and smaller respectively. H/o L thyroid nod. US 02/12: lager 2.5 cm L nod. US guided FNA 03/14: colloid nod. US 02/27/15: 1.9 cm L nod (smaller - previous 2.5 cm). US guided FNA 02/28/14: benign colloid nod. US 02/09/14: 2.5 cm L nod. TSH 01/03/14: 0.619. Sinus CT 06/07/12: wnl. Allergy testing neg in past. No history of sinus/nasal surgery. NIDDM. GERD controlled with prilosec. Occ drinks gingerale, coffee. PE: Alert; oriented; well-developed; no apparent distress. Normal voice; normal communication. Eyes: EOMI, pupils symmetric and reactive bilaterally. Nose: patent, mincongestion, no rhinorrhea. Oral cavity, oropharynx: No ulcerative or mass lesions, tongue midline, palate elevates symmetrically, tongue base and floor of mouth soft. Neck: nontender, no lymphadenopathy or masses. Thyroid: no masses. Face: symmetric, sinuses nontender, skin without lesions. Salivary glands: normal size, nontender, no masses. Ears: R: EAC free of lesions. TM clear and mobile. L: EAC free of lesions. TM clear and mobile. Neurologic: event sales assistant II-XII grossly intact. FL wnl Procedure: Sinonasal endoscopy. Indication: Runny-nose, PND. R/o infection, lesion. Description of procedure: A flexible laryngoscope was used to visualize the nasal cavity. The mucosa was as above. Left: Polyps were not noted in the middle meatus. Purulence was not noted in the middle meatus. Polyps were not noted in the spenoethmoid recess. Purulence was not noted in the sphenoethmoid recess. Right: Polyps were not noted in the middle meatus. Purulence was not noted in the middle meatus. Polyps were not noted in the spenoethmoid recess. Purulence was not noted in the sphenoethmoid recess. The nasopharynx was free of ulcerative or mass lesions. Impression: Chronic runny-nose, freq voice change, PND, need to clear throat for years. CPAP contributing. Rec trial of nasonex daily. If no improv, switch to sinus rinse 4 per d, [facility] ointment BID, humidification at bedside, min coffee/gingerale, cont GERD management. Unable to tolerate mucinex. F/up prn. Medical Decision Making: Problems: Moderate: 1+ chronic illnesses with change Risk: Low: Low risk from testing/treatment Medical Decision Making Level: 3 - Low documented in this encounter [facility] 12-24-2022 Miscellaneous Notes Okay noted, we will watch for ER records to get updates. Pt called and is notified of providers results and message. Pt voices understanding. Pt reports she is still having urinary frequency and occasional burning and itching. Pt is at [facility] ER in [place] for pain in her R lat area of her back. She states they did a urine on her there and it came back fine. Carmelita Miller, RN Please let them know that urine culture does not show bacterial growth meaning bacterial infection is not the cause of her symptoms. IS she still noting any urinary symptoms currently? See results of UA and culture. Patient with ongoing UTI symptoms. Discussed with daughter--requested further evaluation since ongoing symptoms and UTI test at home showed increased WBC. No UCx done when last seen. Will check urine studies before treating given multiple allergies and intolerances plus not improving with antibiotic recently given. Also discussed chronic constipation issues. Might contribute to symptoms as well as recurrent UTIs. Discussed management. Further evaluation and treatment as indicated. documented in this encounter [facility] 12-10-2022 Note IMPRESSION: MULTILEVEL DEGENERATIVE DISC DISEASE PROGRESSED SINCE THE PREVIOUS EXAM. 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 Splitting Machine Feeder: ELEANOR Transcribe Date/Time: Dec 10 2022 2:22P Dictated by : LORIE KAMARA MD This examination was interpreted and the report reviewed and electronically signed by: LORIE KAMARA MD on Dec 10 2022 2:26PM [facility] DIVISION OF RADIOLOGY 12-05-2022 History of Present illness Narrative Radiology Service Progress Note PATIENT NAME: Whitney Ruiz DATE OF SERVICE: December 05, 2022 TIME: 4:12 PM PATIENT IDENTITY VERIFICATION COMPLETED USING TWO (2) IDENTIFIERS: Name and Date of confirmed by patient verbally. FALL SCREENING: Has the patient had 2 falls in the last year or 1 fall with injury or currently using an Ambulatory Assistive Device (Walker, Cane, Wheelchair, Crutches, etc.)? Yes, Patient High Risk for Falls What interventions were put in place to prevent falls during this visit? Instructed Patient to Call for Help if Needed and Offered Assistance with Transfers/Clothing PATIENT GENDER DATA: Female. status: : No status: NO. PATIENT RELEVANT IMPLANT DATA REVIEWED: Yes RADIOLOGY DEPARTMENT: General X-ray: Exam(s) Completed: Chest X-Ray PERIPHERAL IV DATA: Not applicable SIGNED BY: RT Beckie(R) December 05, 2022 4:12 PM documented in this encounter [facility] 12-05-2022 History of Present illness Narrative SUBJECTIVE Whitney Ruiz is a 77 year old female here today for acute concerns. Chief Complaint Patient presents with: UTI: with abdominal pain in lower abdomen Home test for UTI showed positive UTI Back Pain: and shoulders HPI Whitney Ruiz is a 77 year old female patient of Dr. Brower. Here today for concerns of possible UTI. Checked a home UTI test and was positive for UTI. Notes some low abdominal discomfort. Also with concerns of some back pain. Chronic issues but more persistent lately. To the thoracic area, seems to follow along the ribs and wrap around her sides/flank areas. Also some issues with chronic runny nose. Tried Flonase. Her medications were reviewed today and her list is now up to date. Medications Current Outpatient Medications Medication Sig Cholecalciferol, Vitamin D3, 125 mcg (5,000 unit) cap Take 1 capsule by mouth once daily. mecobalamin (B12 ACTIVE ORAL) Take by mouth. omeprazole (PRILOSEC) 20 mg capsule Take 1 capsule by mouth once daily. as directed torsemide (DEMADEX) 10 mg tablet Take 1 tablet by mouth once daily as needed (edema). metoprolol tartrate, short acting, (LOPRESSOR) 50 mg tablet Take 1 tablet by mouth twice daily. glipiZIDE (GLUCOTROL XL) 2.5 mg 24 hr tablet Take 1 tablet by mouth once daily. ipratropium-albuterol (DUONEB) 0.5 mg-3 mg(2.5 mg base)/3 mL nebu Inhale 3 mL as instructed every 6 hours. Unit dose pack albuterol HFA (PROVENTIL HFA, VENTOLIN HFA) 90 mcg/actuation inhaler Inhale 1-2 Puffs as instructed every 4 hours as needed (for wheezing and shortness of breath). potassium chloride (K-TAB) 10 mEq tablet Take 1 tablet by mouth once daily as needed (When taking diuretic). DAILY Lactobacillus acidophilus (PROBIOTIC ORAL) Take by mouth. MULTI-VITAMIN ORAL Take by mouth. ACETAMINOPHEN (TYLENOL ORAL) Take 500 mg by mouth as needed. aspirin, enteric coated (ASPIRIN, ENTERIC COATED) 81 mg EC tablet Take 81 mg by mouth once daily. azelastine 0.1% nasal spray Use 1 Coleman in each nostril twice daily. nitrofurantoin monohydrate and macrocrystal (MACROBID) 100 mg capsule Take 1 capsule by mouth twice daily. predniSONE (DELTASONE) 10 mg tablet Take 4 daily for three days, then 3 daily for three days, then 2 daily for three days, then one daily for three days. (Patient not taking: Reported on 12/05/2022) cholecalciferol, vitD3,/vit K2 (VITAMIN D3-VITAMIN K2 ORAL) Take 1 capsule by mouth once daily. (Patient not taking: Reported on 10/28/2022) flash glucose scanning reader (FREESTYLE ALEX 2 READER) Check sugars at least 4 times daily flash glucose sensor (FREESTYLE ALEX 2 SENSOR) kit 1 Each every 2 weeks. E11.9 DM type 2, Insulin: No Lancets lancets Test blood sugar(s) 2 times daily and as needed. To go with lancet pen with glucometer Dx: Type 2 DM - Controlled E11.9 Insulin: No blood sugar diagnostic (BLOOD GLUCOSE TEST) test strip Test blood sugar(s) 2 times daily and as needed for symptoms of high or low sugars. Dx: Type 2 DM - Controlled E11.9 Insulin: No. Labile sugars that sometimes drop low so needs to check at least twice daily (taking glipizide) CPAP Change settings of Auto PAP to 5-15 cm of water with humidification. Continue orders for: Mask (per patient preference) optional chin strap (if indicated) , filters, tubing, humidifier and lifetime supplies. Per patient insurance will not replace supplies - so request repair and provision of loaner CPAP. fluticasone (FLONASE) 50 mcg/actuation nasal spray Use 1 Coleman in each nostril once daily. (Patient taking differently: Use 1 Coleman in each nostril once daily. Takes daily as needed) COMPOUNDED PRESCRIPTION Powerstep full length original insert (M12.571) Traumatic arthritis of foot, right (primary encounter diagnosis) (Patient taking differently: Powerstep full length original insert (M12.571) Traumatic arthritis of foot, right (primary encounter diagnosis)) COMPOUNDED PRESCRIPTION New CPAP with supplies CPAP pressure 12 cm H2O. 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 ALLERGIES Allergen Reactions Codeine Shortness of Breath Vicodin [Hydrocodon* Intolerance cardiac arrest Adhesive Rash Augmentin [Amoxicil* Shortness of Breath Called and complained that caused SOB Biaxin [Clarithromy* Mental Status Change Cardizem [Diltiazem] Intolerance itching Ciprofloxacin Other: See Comments Muscle pain Clonidine Intolerance low heart rate to 42; BP also dropped; tried patch and was okay for a while but then stopped since affected thinking Coreg [Carvedilol] Intolerance grumpy, runny nose Crestor [Rosuvastat* Intolerance muscle aches all over Cymbalta [Duloxetin* Other: See Comments Elevated BP and blood sugar went up Dicyclomine Shortness of Breath Diovan [Valsartan] Swelling In feet, legs & ankles Doxycycline Vomiting Vomiting after the first dose, intense. Flagyl [Metronidazo* Itching Guaifenesin-Sodium * Intolerance jittery Levofloxacin Other: See Comments Muscle pain Losartan Other: See Comments Made me lose hair. Low back pain, stomach upset Lovastatin Intolerance Muscle aches all over Mobic [Meloxicam] lips swell Morphine Itching possibly was from the IV or tape since was from IV morphine; only affected arm of hand had IV in Nifedipine Intolerance palpitations; also to see if runny nose resolved (did not) Norvasc [Amlodipine* Swelling Sulfa (Sulfonamide * Rash Ultravist [Iopromid* Other: See Comments Pt sts with previous cat scan she had delayed chest tightness ACTIVE PROBLEM LIST Svt (Supraventricular Tachycardia) ([facility]) - 08/18/2022 Obesity, Class II, Bmi 35-39.9 - 08/18/2022 Ild (Interstitial Lung Disease) ([facility]) - 09/29/2019 History of Supraventricular Tachycardia - 10/24/2018 Pvc's (Premature Ventricular Contractions) - 10/02/2018 Premature Atrial Contractions - 10/02/2018 Palpitations - 10/02/2018 Lung Nodule - 01/23/2017 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 Perry managing; biopsy 02/29/12 Shortness of Breath On Exertion - 10/27/2013 Comment: Has been having SOB for a long time but worse in the last 1 week, 2 weeks ago she had throat drainage and soreness, She had a culture which was negative She was given ABX on Thursday Developed a fever after that so she cont taking the abx although she initially didn't want to Lipoma of Unspecified Site - 01/13/2013 Abdominal Mass - 12/23/2012 Osteopenia - 12/14/2012 Comment: [facility] 10/2012 osteopenia, outside BMD in 2010 also showed osteopenia Occipital Neuralgia - 09/29/2012 Coronary Artery Disease Involving [place] Coronary Artery of [place] Heart Without Angina Pectoris - 04/16/2012 Personal History of Colonic Polyps - 01/07/2012 Osteoarthritis - 06/27/2011 Comment: Dr. Cuellar, rheumatology in [facility]. Other Hammer Toe (Acquired) - 04/21/2011 Ddd (Degenerative Disc Disease), Cervical - 04/11/2011 Comment: hx sciatica Cervical Spondylosis Without Myelopathy - 01/31/2011 Porokeratosis - 12/18/2010 Vitamin D Deficiency - 04/18/2009 Hyperlipidemia - 04/05/2009 Gerd (Gastroesophageal Reflux Disease) Obstructive Sleep Apnea - 10/12/2007 Comment: Unable to tolerate CPAP. Uses night oxygen at 2l n/c due to hx desat. Essential Hypertension - 04/01/2007 Mild Intermittent Asthma With Acute Exacerbation Diaphragmatic Hernia Comment: Hiatal hernia Social History Tobacco Use Smoking status: Former Packs/day: 1.00 Years: 12.00 Additional pack years: 0.00 Total pack years: 12.00 Types: Cigarettes Start date: 02/21/1963 Quit date: 03/30/1972 Years since quittin.7 Smokeless tobacco: Never Tobacco comments: Mother smoked in childhood home, spouse of 45 years also smoked in home. Vaping Use Vaping Use: Never used Substance Use Topics Alcohol use: No Drug use: No Review of Systems HENT: Positive for postnasal drip and rhinorrhea. Respiratory: Negative. Cardiovascular: Negative. Genitourinary: Positive for dysuria. Negative for hematuria. Musculoskeletal: Positive for arthralgias and back pain. OBJECTIVE BP 120/88 Pulse 60 Temp (Src) 98.4 (Tympanic) Wt 182 lb (82.6kg) SpO2 97% Physical Exam Vitals and nursing note reviewed. Constitutional: General: She is awake. She is not in acute distress. Appearance: Normal appearance. She is well-developed and well-groomed. She is not ill-appearing, toxic-appearing or diaphoretic. HENT: Head: Normocephalic. Right Ear: External ear normal. Left Ear: External ear normal. Nose: Nose normal. Eyes: General: Vision grossly intact. Conjunctiva/sclera: Conjunctivae normal. Pupils: Pupils are equal, round, and reactive to light. Neck: Vascular: No JVD. Trachea: Trachea normal. Cardiovascular: Rate and Rhythm: Normal rate and regular rhythm. Pulses: Normal pulses. Heart sounds: Normal heart sounds. No murmur heard. Pulmonary: Effort: Pulmonary effort is normal. No accessory muscle usage, prolonged expiration or respiratory distress. Breath sounds: Normal breath sounds. Musculoskeletal: Cervical back: Neck supple. Skin: General: Skin is warm and dry. Capillary Refill: Capillary refill takes less than 2 seconds. Neurological: General: No focal deficit present. Mental Status: She is alert and oriented to person, place, and time. Mental status is at baseline. Psychiatric: Attention and Perception: Attention and perception normal. Mood and Affect: Mood and affect normal. Speech: Speech normal. Behavior: Behavior normal. Behavior is cooperative. Thought Content: Thought content normal. Cognition and Memory: Cognition and memory normal. Judgment: Judgment normal. ASSESSMENT/PLAN: 1. Acute cystitis without hematuria - ICD9: 595.0, ICD10: N30.00 (primary diagnosis) Urine dip indicative of UTI, start treatment with Macrobid since this is best option given her allergies. Can culture to make sure this will be effective. - UA DIP B/O - URINE CULTURE - NITROFURANTOIN MONOHYDRATE & MACROCRYSTAL 100 MG ORAL CAP 2. Chronic rhinitis - ICD9: 472.0, ICD10: J31.0 - AZELASTINE 137 MCG (0.1 %) NASAL SPRAY AEROSOL 3. Chronic midline thoracic back pain - ICD9: 724.1, 338.29, ICD10: M54.6, G89.29 Can check xrays to see if any issues. Thoracic and CXR given the nature of the pain effecting her flank area and ribs laterally also. - XR CHEST 2V FRONTAL/LAT - XR THORACIC LIMITED 2V AP/LAT Portions of this note have been entered by ancillary staff. I have reviewed and when necessary edited, so that they are an adequate record of my encounter with this patient Please note that parts of this document were created using voice recognition software and therefore may contain grammatical errors. Patient verbalizes understanding of instructions from today's visit and in agreement with treatment plan. Questions answered. Agrees to call the office if questions, concerns of issues with acute symptoms not improving or if they worsen. See diagnoses and orders for additional plan(s). Allergies and medications were reviewed, list was updated, and refills given if needed. Past medical, surgical, social, and family history reviewed and updated as appropriate. Encouraged proper diet & exercise as well as compliance with taking medications. Age-appropriate health preventative measures were discussed. Return if symptoms worsen or fail to improve, for Keep next scheduled appointment.. Kojo Frederick APRN-JACKIE documented in this encounter [facility] 12-05-2022 Instructions Lexx Sahni LPN - 12/05/2022 3:35 PM EDT Images from the original note were not included. Urinary Problem-When to Seek Help? Symptoms of a urinary problem may lead to a bladder infection. Women are at greater risk of a urinary tract infection than are men. Most urinary tract infections in women are caused by bacteria and involve the lower urinary tract including the bladder and urethra. Symptoms: Pain or burning when passing urine, urgency, frequency, blood in the urine, difficult emptying your bladder, and lower abdominal fullness or pressure. Common Causes: Sexual intercourse, menopause, constipation, uncontrolled diabetes, dehydration and feminine products such as tampons, and kidney stones. When to Get Help: Seek medical attention if you get frequent bladder infections, urinary concerns such as leakage, blood in the urine or frequent need to urinate. You may be recommended to get help from a specialist, such as a urologist. Diagnosis & Treatment: Lab testing may include: urinalysis, and urine culture that can be collected in the lab or walk-in clinic. Most bladder infections can easily be treated. A physician, nurse practitioner or physician paraprofessional education assistant may treat with a short course of an antibiotic. Delaying treatment can lead to worsening symptoms, like a kidney infection. Self-Care: Avoid a full bladder, bubble baths, bath oils, food and beverages that may irritate the bladder such as caffeine. Avoid spermicide foam and diaphragms Void before and after sexual intercourse Wipe front to back after using the bathroom. Stay hydrated Stop Smoking Follow-up Care: Follow up testing is not needed in healthy young women if symptoms resolve. documented in this encounter [facility] 11-13-2022 Instructions Magy Cronin APRN.[facility] - 11/13/2022 4:00 PM EDT Images from the original note were not included. Next to the common cold, an ear infection is the most common childhood illness. In fact, most children have at least one ear infection by the time they are 3 years old. Many ear infections clear up without causing any lasting problems. How do ear infections develop? When a child has a cold, nose or throat infection, or allergy, the mucus and fluid can enter the eustachian tube causing a buildup of fluid in the middle ear. If bacteria or a virus infects this fluid, it can cause swelling and pain in the ear. This type of ear infection is called acute otitis media (middle ear inflammation). Is my child at risk for developing an ear infection? Risk factors for developing childhood ear infections include Age. Infants and young children are more likely to get ear infections than older children. Ear infections occur most often in children between 6 months and 3 years of age. Family history. Ear infections can run in families. Children are more likely to have repeated middle ear infections if a parent or sibling also had repeated ear infections. Colds. Colds often lead to ear infections. Children in group child daycare worker settings have a higher chance of passing their colds to each other because they are exposed to more viruses from the other children. Tobacco smoke. Children who breathe in someone else s tobacco smoke have a higher risk of developing health problems, including ear infections. How can I reduce the risk of an ear infection? Some things you can do to help reduce your child s risk of getting an ear infection are Breastfeed instead of bottle-feed. may decrease the risk of frequent colds and ear infections. Keep your child away from tobacco smoke, especially in your home or car. Throw away pacifiers or limit to daytime use, if your child is older than 1 year. Keep vaccinations up to date. How are ear infections treated? Because pain is often the first and most uncomfortable symptom of an ear infection, it s important to help comfort your child by giving her pain medicine. Acetaminophen and ibuprofen are ccql-cjj-qxxxbqq (OTC) pain medicines that may help decrease much of the pain. Be sure to use the right dosage for your child s age and size. Don t give aspirin to your child. There are also ear drops that may relieve ear pain for a short time. Ask your supervisor logging whether these drops should be used. There is no need to use OTC cold medicines (decongestants and antihistamines), because they don t help clear up ear infections. Not all ear infections require antibiotics. Some children who don t have a high fever and aren t severely ill may be observed without antibiotics. In most cases, pain and fever will improve in the first 1 to 2 days. If your child is younger than 2 years, has drainage from the ear, has a fever higher than 102.5 F, seems to be in a lot of pain, is unable to sleep, isn t eating, or is acting ill, it s important to call your supervisor logging. If your child s condition doesn t improve within 3 days, or worsens at any time, call your supervisor logging. Your supervisor logging may wish to see your child and may prescribe an antibiotic to take by mouth, if one wasn t given initially. If an antibiotic was already started, your child may need a different antibiotic. Be sure to follow your supervisor logging s instructions closely. If an antibiotic was prescribed, make sure your child finishes the entire prescription. If you stop the medicine too soon, some of the bacteria that caused the ear infection may still be present and cause an infection to start all over again. As the infection starts to clear up, your child might feel a popping in the ears. This is a normal sign of healing. Children with ear infections don t need to stay home if they are feeling well, as long as a child daycare worker provider or someone at school can give them their medicine properly, if needed. If your child needs to travel in an airplane, or wants to swim, contact your supervisor logging for specific Instructions. Are there complications from ear infections? Although it s very rare, complications from ear infections can develop, including the following: An infection of the inner ear that causes dizziness and imbalance (labyrinthitis) An infection of the skull behind the ear (mastoiditis) Scarring or thickening of the eardrum Loss of feeling or movement in the face (facial paralysis) Permanent hearing loss It s normal for children to have several ear infections when they are young--even as many as 2 separate infections within a few months. Most ear infections that develop in children are minor. Recurring ear infections may be a nuisance, but they usually clear up without any lasting problems. With proper care and treatment, ear infections can usually be managed successfully. But, if your child has one ear infection after another for several months, you may want to talk about other treatment options with your supervisor logging.Adult Sinusitis Patient Education What is Sinusitis? Sinusitis [poox-xfj-gxxm-tis] is inflammation of the sinuses or swelling of the lining of the sinus cavity or nose. During an infection the sinuses become blocked with fluid causing swelling of the lining of the sinuses. Symptoms: (viral and bacterial infections) Stuffy nose Runny nose Postnasal drip Fever Toothache Headache Tiredness Cough Sore throat Face and head pressure and or pain Common causes: 98% of sinus infections are viral caused by viruses. Risk Factors of Sinusitis Include: Allergies, air pollution, indoor humidity and outdoor temperature changes, andstructural changes in the nose may contribute to sinus pain, pressure and congestion. When to get help? Temperature greater than 100.4 F Symptoms lasting more than 10 days or worsening symptoms greater than 7-10 days. If you do not improve or worsen after a course of antibiotics, you should be re-examined. Diagnosis and Treatment: Your healthcare provider will ask a number of questions about your symptoms and how long they have occurred. If symptoms of sinusitis persist greater than 10 days, it is possible you have a bacterial sinus infection and an antibiotic is prescribed. If it is viral, antibiotics will not help. You may be instructed to take gqht-bgy-zfbqofr medications for symptoms. including fever reducers acetaminophen or ibuprofen, nasal saline spray, cough and cold preparations and decongestants as prescribed by the physician, nurse practitioner or physician paraprofessional education assistant. Self-Care and Prevention: Rest Fluids for hydration Good hand washing Humidifier Avoid smoking and exposure to second hand smoke Avoid sick contacts documented in this encounter [facility] 11-13-2022 History of Present illness Narrative This note was created using AISriter. Subjective Whitney Ruiz is a 77 year old female. 77 year old female with PMH DM without use of insulin, HTN, hyperlipidemia, CAD, SVT, asthma, COPD, OA presents for complaints of illness. Acute onset 5 days ago Initially was sinus pressure. She was evluated by Dr. Brower She was instructed to do sinus spray Symptoms have since progressed +left ear pain that started yesterday +sore throat +lymph node enlargement. +post nasal drainage. +non productive cough The history is provided by the patient. No spanish interpreter/translator was used. Sinus Problem This is a new problem. The current episode started in the past 7 days. The problem occurs constantly. The problem has been gradually worsening. Associated symptoms include congestion, coughing and swollen glands. Pertinent negatives include no abdominal pain, anorexia, arthralgias, change in bowel habit, chest pain, chills, diaphoresis, fatigue, fever, headaches, joint swelling, myalgias, nausea, neck pain, numbness, rash, sore throat, urinary symptoms, vertigo, visual change, vomiting or weakness. Nothing aggravates the symptoms. She has tried nothing for the symptoms. The treatment provided no relief. PAST MEDICAL HISTORY Diagnosis Date CAD (coronary artery disease) 04/16/2012 70-80% LAD --had stent placed 09/07/14 Depressive disorder, not elsewhere classified Diverticulitis of colon with hemorrhage 2001 DM w/o Complication Type II 04/05/2009 GERD (gastroesophageal reflux disease) Hiatal hernia Hypertension 03/30/1988 IPF (idiopathic pulmonary fibrosis) ([facility]) Irritable bowel syndrome Occipital neuralgia Osteoarthritis 06/27/2011 Other chronic sinusitis Other osteoporosis Post-nasal drip Situational depression 12/27/2014 Sleep apnea 03/30/1996 Statin intolerance 12/24/2016 SVT (supraventricular tachycardia) (HCC) 10/02/2018 Thoracic aortic aneurysm (HCC) [address] chest (2014, 2013)--July 09, [address] Unspecified essential hypertension Patient has had since age 33 Vitamin D Deficiency 04/18/2009 PAST SURGICAL HISTORY Procedure Laterality Date CHOLECYSTECTOMY 2002 COLONOSCOPY 06/09/14 diverticulosis COLONOSCOPY FLX DX W/COLLJ SPEC WHEN PFRMD 01/07/2012 hyperplastic polyps EGD 06/09/14 mild gastritis ESOPHAGOGASTRODUODENOSCOPY TRANSORAL DIAGNOSTIC 03/24/12 EGD PAST SURGICAL HISTORY OF 2000 Patient had to have right wrist bone rebuilt PAST SURGICAL HISTORY OF 09/07/2014 heart stent--mid LAD 2.5X12mm Alpine Xience stent PAST SURGICAL HISTORY OF Excision of lipoma TOTAL ABDOMINAL HYSTERECT W/WO RMVL TUBE OVARY 1999 Patient has both ovaries ALLERGIES Codeine, Vicodin [Hydrocodone-Acetaminophen], Adhesive, Augmentin [Amoxicillin-Pot Clavulanate], Biaxin [Clarithromycin], Cardizem [Diltiazem], Ciprofloxacin, Clonidine, Coreg [Carvedilol], Crestor [Rosuvastatin Calcium], Cymbalta [Duloxetine], Dicyclomine, Diovan [Valsartan], Doxycycline, Flagyl [Metronidazole], Guaifenesin-Sodium Citrate, Levofloxacin, Losartan, Lovastatin, Mobic [Meloxicam], Morphine, Nifedipine, Norvasc [Amlodipine Besylate], Sulfa (Sulfonamide Antibiotics), and Ultravist [Iopromide] MEDICATIONS Cholecalciferol, Vitamin D3, 125 mcg (5,000 unit) cap Take 1 capsule by mouth once daily. predniSONE (DELTASONE) 10 mg tablet Take 4 daily for three days, then 3 daily for three days, then 2 daily for three days, then one daily for three days. mecobalamin (B12 ACTIVE ORAL) Take by mouth. omeprazole (PRILOSEC) 20 mg capsule Take 1 capsule by mouth once daily. as directed torsemide (DEMADEX) 10 mg tablet Take 1 tablet by mouth once daily as needed (edema). metoprolol tartrate, short acting, (LOPRESSOR) 50 mg tablet Take 1 tablet by mouth twice daily. glipiZIDE (GLUCOTROL XL) 2.5 mg 24 hr tablet Take 1 tablet by mouth once daily. flash glucose scanning reader (FREESTYLE ALEX 2 READER) Check sugars at least 4 times daily flash glucose sensor (FREESTYLE ALEX 2 SENSOR) kit 1 Each every 2 weeks. E11.9 DM type 2, Insulin: No Lancets lancets Test blood sugar(s) 2 times daily and as needed. To go with lancet pen with glucometer Dx: Type 2 DM - Controlled E11.9 Insulin: No ipratropium-albuterol (DUONEB) 0.5 mg-3 mg(2.5 mg base)/3 mL nebu Inhale 3 mL as instructed every 6 hours. Unit dose pack albuterol HFA (PROVENTIL HFA, VENTOLIN HFA) 90 mcg/actuation inhaler Inhale 1-2 Puffs as instructed every 4 hours as needed (for wheezing and shortness of breath). potassium chloride (K-TAB) 10 mEq tablet Take 1 tablet by mouth once daily as needed (When taking diuretic). DAILY blood sugar diagnostic (BLOOD GLUCOSE TEST) test strip Test blood sugar(s) 2 times daily and as needed for symptoms of high or low sugars. Dx: Type 2 DM - Controlled E11.9 Insulin: No. Labile sugars that sometimes drop low so needs to check at least twice daily (taking glipizide) CPAP Change settings of Auto PAP to 5-15 cm of water with humidification. Continue orders for: Mask (per patient preference) optional chin strap (if indicated) , filters, tubing, humidifier and lifetime supplies. Per patient insurance will not replace supplies - so request repair and provision of loaner CPAP. fluticasone (FLONASE) 50 mcg/actuation nasal spray Use 1 Coleman in each nostril once daily. (Patient taking differently: Use 1 Coleman in each nostril once daily. Takes daily as needed) Lactobacillus acidophilus (PROBIOTIC ORAL) Take by mouth. MULTI-VITAMIN ORAL Take by mouth. COMPOUNDED PRESCRIPTION Powerstep full length original insert (M12.571) Traumatic arthritis of foot, right (primary encounter diagnosis) (Patient taking differently: Powerstep full length original insert (M12.571) Traumatic arthritis of foot, right (primary encounter diagnosis)) COMPOUNDED PRESCRIPTION New CPAP with supplies CPAP pressure 12 cm H2O. 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 aspirin, enteric coated (ASPIRIN, ENTERIC COATED) 81 mg EC tablet Take 81 mg by mouth once daily. cefdinir (OMNICEF) 300 mg capsule Take 1 capsule by mouth twice daily for 7 days. fluconazole (DIFLUCAN) 150 mg tablet Take 1 tablet by mouth once daily for 1 day. cholecalciferol, vitD3,/vit K2 (VITAMIN D3-VITAMIN K2 ORAL) Take 1 capsule by mouth once daily. (Patient not taking: Reported on 10/28/2022) FAMILY HISTORY Problem Relation Age of Onset Arthritis Mother Colon Cancer Mother from this Hypertension Father Heart Father CHF Diabetes Father Cancer Brother Lung Cancer Sister from lung cancer Diabetes Brother Hypertension Brother other (Migraine) Daughter other (Other) Daughter Fibromyalgia other (Migraine) Daughter other (Other) Daughter Fibromyalgia Asthma Daughter other (SLE) Daughter Thyroid Cancer Brother Asthma Brother Asthma Maternal Grandfather Asthma Other Nephew, at age 7. Social History Tobacco Use Smoking status: Former Packs/day: 1.00 Years: 12.00 Additional pack years: 0.00 Total pack years: 12.00 Types: Cigarettes Start date: 02/21/1963 Quit date: 03/30/1972 Years since quittin.6 Smokeless tobacco: Never Tobacco comments: Mother smoked in childhood home, spouse of 45 years also smoked in home. Vaping Use Vaping Use: Never used Substance Use Topics Alcohol use: No Drug use: No Review of Systems Constitutional: Negative for chills, diaphoresis, fatigue and fever. HENT: Positive for congestion and ear pain. Negative for ear discharge, postnasal drip, rhinorrhea, sinus pressure, sinus pain and sore throat. Eyes: Negative for photophobia, pain, discharge, redness, itching and visual disturbance. Respiratory: Positive for cough. Negative for apnea and chest tightness. Cardiovascular: Negative for chest pain, palpitations and leg swelling. Gastrointestinal: Negative for abdominal pain, anorexia, change in bowel habit, nausea and vomiting. Musculoskeletal: Negative for arthralgias, joint swelling, myalgias and neck pain. Skin: Negative for rash. Allergic/Immunologic: Negative for environmental allergies, food allergies and immunocompromised state. Neurological: Negative for vertigo, weakness, numbness and headaches. Hematological: Negative for adenopathy. Does not bruise/bleed easily. Psychiatric/Behavioral: Negative for agitation and behavioral problems. Objective BP 138/98 Pulse 60 Temp 36.7 C (98.1 F) Resp 21 Wt 83.7 kg (184 lb 9.6 oz) SpO2 98% BMI 37.28 kg/m Physical Exam Vitals and nursing note reviewed. Constitutional: General: She is not in acute distress. Appearance: Normal appearance. She is normal weight. She is not ill-appearing, toxic-appearing or diaphoretic. HENT: Head: Normocephalic and atraumatic. Comments: +frontal sinus pressure +maxillary sinus pressure Right Ear: Ear canal and external ear normal. Left Ear: Ear canal and external ear normal. Ears: Comments: Left TM erythematous and bulging. Nose: Nose normal. No congestion or rhinorrhea. Mouth/Throat: Mouth: Mucous membranes are moist. Pharynx: No oropharyngeal exudate or posterior oropharyngeal erythema. Eyes: General: Right eye: No discharge. Left eye: No discharge. Extraocular Movements: Extraocular movements intact. Conjunctiva/sclera: Conjunctivae normal. Pupils: Pupils are equal, round, and reactive to light. Cardiovascular: Rate and Rhythm: Normal rate and regular rhythm. Pulses: Normal pulses. Heart sounds: Normal heart sounds. No murmur heard. No friction rub. Pulmonary: Effort: Pulmonary effort is normal. No respiratory distress. Breath sounds: Normal breath sounds. No stridor. No wheezing, rhonchi or rales. Chest: Chest wall: No tenderness. Abdominal: General: Abdomen is flat. There is no distension. Palpations: Abdomen is soft. There is no mass. Tenderness: There is no abdominal tenderness. There is no right CVA tenderness, left CVA tenderness, guarding or rebound. Hernia: No hernia is present. Musculoskeletal: General: No swelling, tenderness, deformity or signs of injury. Normal range of motion. Cervical back: Normal range of motion and neck supple. No rigidity. Right lower leg: No edema. Left lower leg: No edema. Lymphadenopathy: Cervical: Cervical adenopathy present. Skin: General: Skin is warm and dry. Capillary Refill: Capillary refill takes less than 2 seconds. Coloration: Skin is not jaundiced or pale. Findings: No bruising, erythema, lesion or rash. Neurological: General: No focal deficit present. Mental Status: She is alert and oriented to person, place, and time. Cranial Nerves: No cranial nerve deficit. Sensory: No sensory deficit. Motor: No weakness. Coordination: Coordination normal. Gait: Gait normal. Psychiatric: Mood and Affect: Mood normal. Behavior: Behavior normal. Thought Content: Thought content normal. Judgment: Judgment normal. Assessment and Plan ASSESSMENT/PLAN: 1. Acute otitis media, left - ICD9: 382.9, ICD10: H66.92 (primary diagnosis) - Will begin treatment with as per antibiotic as written, see orders - The patient should also be given OTC cough and cold meds as needed, warm salt water gargles, throat lozenges and/or OTC throat spray as needed, and nasal saline gtts and suction prn for the first 5-7 days of treatment. - Supportive care with plenty of fluids, rest, and analgesia prn. - Follow up in 3-5 days if symptoms persist or worsen. 2. Rhinosinusitis - ICD9: 473.9, ICD10: J31.0, J32.9 - Will begin treatment with as per antibiotic as written, see orders - The patient should also be given OTC cough and cold meds as needed, warm salt water gargles, throat lozenges and/or OTC throat spray as needed, and nasal saline gtts and suction prn for the first 5-7 days of treatment. - Supportive care with plenty of fluids, rest, and analgesia prn. - Follow up in 3-5 days if symptoms persist or worsen. Magy Cronin APRN.JACKIE documented in this encounter [facility] 11-05-2022 History of Present illness Narrative This note was created using AISriter. Subjective Whitney Ruiz is a 77 year old female. Patient presents with: Follow Up SUBJECTIVE: Whitney Ruiz is a 77 year old year old lady here today for follow up appointment for review of medical conditions. Reviewed thyroid nodule evaluation since 2013. Last saw Dr. Perry and no need for further follow up. Cough and hoarseness. Has had chronic rhinitis. Had to stop clindamycin after 2 days (given by Dr. Obrien). Upset stomach. Had tolerated before. Flonase was intermittent use. Pain across her back. Can be worse with doing dishes. Goes around right back. Tylenol does help some. Quarter of a percocet helps and takes at night. Noted issues with Cervical and thoracic DDD and DJD. 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 PAST MEDICAL HISTORY Diagnosis Date CAD (coronary artery disease) 04/16/2012 70-80% LAD --had stent placed 09/07/14 Depressive disorder, not elsewhere classified Diverticulitis of colon with hemorrhage 2001 DM w/o Complication Type II 04/05/2009 GERD (gastroesophageal reflux disease) Hiatal hernia Hypertension 03/30/1988 IPF (idiopathic pulmonary fibrosis) (HCC) Irritable bowel syndrome Occipital neuralgia Osteoarthritis 06/27/2011 Other chronic sinusitis Other osteoporosis Post-nasal drip Situational depression 12/27/2014 Sleep apnea 03/30/1996 Statin intolerance 12/24/2016 SVT (supraventricular tachycardia) (HCC) 10/02/2018 Thoracic aortic aneurysm (HCC) [address] chest (2014, 2013)--July 09, [address] Unspecified essential hypertension Patient has had since age 33 Vitamin D Deficiency 04/18/2009 Current Outpatient Medications Medication Sig clindamycin (CLEOCIN) 150 mg capsule Take 1 capsule by mouth three times daily for 10 days. predniSONE (DELTASONE) 10 mg tablet Take 4 daily for three days, then 3 daily for three days, then 2 daily for three days, then one daily for three days. mecobalamin (B12 ACTIVE ORAL) Take by mouth. omeprazole (PRILOSEC) 20 mg capsule Take 1 capsule by mouth once daily. as directed torsemide (DEMADEX) 10 mg tablet Take 1 tablet by mouth once daily as needed (edema). metoprolol tartrate, short acting, (LOPRESSOR) 50 mg tablet Take 1 tablet by mouth twice daily. glipiZIDE (GLUCOTROL XL) 2.5 mg 24 hr tablet Take 1 tablet by mouth once daily. flash glucose scanning reader ([employer] ALEX 2 READER) Check sugars at least 4 times daily flash glucose sensor (FREESTYLE ALEX 2 SENSOR) kit 1 Each every 2 weeks. E11.9 DM type 2, Insulin: No Lancets lancets Test blood sugar(s) 2 times daily and as needed. To go with lancet pen with glucometer Dx: Type 2 DM - Controlled E11.9 Insulin: No ipratropium-albuterol (DUONEB) 0.5 mg-3 mg(2.5 mg base)/3 mL nebu Inhale 3 mL as instructed every 6 hours. Unit dose pack albuterol HFA (PROVENTIL HFA, VENTOLIN HFA) 90 mcg/actuation inhaler Inhale 1-2 Puffs as instructed every 4 hours as needed (for wheezing and shortness of breath). cholecalciferol, Vitamin D3, (VITAMIN D3) 1,250 mcg (50,000 unit) cap capsule Take 50,000 Units by mouth one time a week. potassium chloride (K-TAB) 10 mEq tablet Take 1 tablet by mouth once daily as needed (When taking diuretic). DAILY blood sugar diagnostic (BLOOD GLUCOSE TEST) test strip Test blood sugar(s) 2 times daily and as needed for symptoms of high or low sugars. Dx: Type 2 DM - Controlled E11.9 Insulin: No. Labile sugars that sometimes drop low so needs to check at least twice daily (taking glipizide) fluticasone (FLONASE) 50 mcg/actuation nasal spray Use 1 Coleman in each nostril once daily. (Patient taking differently: Use 1 Coleman in each nostril once daily. Takes daily as needed) Lactobacillus acidophilus (PROBIOTIC ORAL) Take by mouth. MULTI-VITAMIN ORAL Take by mouth. COMPOUNDED PRESCRIPTION Powerstep full length original insert (M12.571) Traumatic arthritis of foot, right (primary encounter diagnosis) (Patient taking differently: Powerstep full length original insert (M12.571) Traumatic arthritis of foot, right (primary encounter diagnosis)) ACETAMINOPHEN (TYLENOL ORAL) Take 500 mg by mouth as needed. aspirin, enteric coated (ASPIRIN, ENTERIC COATED) 81 mg EC tablet Take 81 mg by mouth once daily. cholecalciferol, vitD3,/vit K2 (VITAMIN D3-VITAMIN K2 ORAL) Take 1 capsule by mouth once daily. (Patient not taking: Reported on 10/28/2022) lisinopril (ZESTRIL) 5 mg tablet Take 1 tablet by mouth once daily. (Patient not taking: Reported on 10/28/2022) CPAP Change settings of Auto PAP to 5-15 cm of water with humidification. Continue orders for: Mask (per patient preference) optional chin strap (if indicated) , filters, tubing, humidifier and lifetime supplies. Per patient insurance will not replace supplies - so request repair and provision of loaner CPAP. COMPOUNDED PRESCRIPTION New CPAP with supplies CPAP pressure 12 cm H2O. 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 Review of Systems Objective BP 132/78 Pulse (!) 54 Temp 37 C (98.6 F) Resp 18 Wt 84.1 kg (185 lb 8 oz) SpO2 96% BMI 37.47 kg/m Last 10 Encounter Wt Readings: Date: Wt: 11/05/2022 84.1 kg (185 lb 8 oz) 10/28/2022 83 kg (183 lb) 08/26/2022 84.8 kg (187 lb) 08/15/2022 83.9 kg (185 lb) 07/18/2022 84.4 kg (186 lb) 04/21/2022 87.1 kg (192 lb) 04/21/2022 87.1 kg (192 lb) 02/24/2022 93.9 kg (207 lb) 01/16/2022 93.9 kg (207 lb) 01/15/2022 93 kg (205 lb) No waist measurement recorded Estimated body mass index is 37.47 kg/m as calculated from the following: Height as of 04/21/22: 149.9 cm (4' 11). Weight as of this encounter: 84.1 kg (185 lb 8 oz). Last 5 Encounter BP Readings: Date: BP: 11/05/2022 132/78 10/28/2022 136/82 08/26/2022 132/84 08/15/2022 140/92 07/18/2022 164/86 Physical Exam Constitutional: Appearance: Normal appearance. HENT: Head: Normocephalic. Eyes: Conjunctiva/sclera: Conjunctivae normal. Cardiovascular: Rate and Rhythm: Normal rate and regular rhythm. Heart sounds: Normal heart sounds. Pulmonary: Effort: Pulmonary effort is normal. Breath sounds: Normal breath sounds. Skin: General: Skin is warm and dry. Neurological: General: No focal deficit present. Mental Status: She is alert and oriented to person, place, and time. Psychiatric: Mood and Affect: Mood normal. Behavior: Behavior normal. Thought Content: Thought content normal. Judgment: Judgment normal. Component Latest Ref Rng & Units 06/19/2022 10/15/2022 10/17/2022 Protein, Total 6.3 - 8.0 g/dL 6.7 6.5 Albumin 3.9 - 4.9 g/dL 4.2 4.2 Calcium 8.5 - 10.2 mg/dL 9.8 9.7 Bilirubin, Total 0.2 - 1.3 mg/dL 0.4 0.4 Alkaline Phosphatase 34 - 123 U/L 67 56 AST 13 - 35 U/L 14 23 ALT 7 - 38 U/L 9 18 Glucose 74 - 99 mg/dL 126 (H) 112 (H) BUN 7 - 21 mg/dL 16 17 Creatinine 0.58 - 0.96 mg/dL 0.62 0.65 Sodium 136 - 144 mmol/L 140 140 Potassium 3.7 - 5.1 mmol/L 4.5 4.7 Chloride 97 - 105 mmol/L 105 104 CO2 22 - 30 mmol/L 27 25 Anion Gap 9 - 18 mmol/L 8 (L) 11 eGFR >=60 mL/min/1.73m 91 90 WBC 3.70 - 11.00 k/uL 7.25 7.34 RBC 3.90 - 5.20 m/uL 4.61 4.47 Hemoglobin 11.5 - 15.5 g/dL 13.5 13.1 Hematocrit 36.0 - 46.0 % 41.0 41.1 MCV 80.0 - 100.0 fL 88.9 91.9 MCH 26.0 - 34.0 pg 29.3 29.3 MCHC 30.5 - 36.0 g/dL 32.9 31.9 RDW-CV 11.5 - 15.0 % 14.0 14.4 Platelet Count 150 - 400 k/uL 315 306 MPV 9.0 - 12.7 fL 9.4 9.7 Absolute nRBC <0.01 k/uL <0.01 <0.01 Cholesterol, Total <200 mg/dL 210 (H) 218 (H) Triglyceride <150 mg/dL 74 64 HDL Cholesterol >39 mg/dL 45 54 Non HDL Cholesterol <130 mg/dL 165 (H) 164 (H) Fasting Time hrs 12 12 VLDL Cholesterol <30 mg/dL 15 13 TC:HDL Ratio <5.10 4.67 4.04 LDL Cholesterol <100 mg/dL 150 (H) 151 (H) LDL:HDL Ratio <2.54 3.33 (H) 2.80 (H) Iron 41 - 186 ug/dL 103 TIBC 232 - 386 ug/dL 251 Transferrin Saturation 15.0 - 57.0 % 41.0 Creatinine, Ur Random (UCRR) 20.0 - 300.0 mg/dL 70.7 Albumin, Urine Random mg/L <12.0 Albumin/Creat Ratio <30 mg/g <17 Hemoglobin A1C 4.3 - 5.6 % 5.8 (H) 6.4 (H) Estimated Average Glucose mg/dL 120 137 Magnesium 1.7 - 2.3 mg/dL 2.1 Vitamin D 25 Hydroxy 31.0 - 80.0 ng/mL 37.3 33.6 Ferritin 14.7 - 205.1 ng/mL 209.0 (H) 213.0 (H) Vitamin B12 232 - 1,245 pg/mL 455 TSH 0.270 - 4.200 mIU/L 0.980 Free T4 0.9 - 1.7 ng/dL 1.1 Free T3 2.3 - 4.1 pg/mL 2.6 Assessment and Plan Encounter Diagnosis ICD-10-CM 1. Type 2 diabetes mellitus with diabetic neuropathy, without long-term current use of insulin ([facility]) E11.40 Continues present management 2. SVT (supraventricular tachycardia) ([facility]) I47.1 Stable on current med(s). No changes 3. Chronic rhinitis J31.0 Discussed okay to use Flonase routinely if needed.Further evaluation and treatment as indicated 4. DDD (degenerative disc disease), cervical M50.30 oxyCODONE-acetaminophen (PERCOCET) 5-325 mg tablet Continue present management; further evaluation and treatment as indicated 5. Chronic right-sided thoracic back pain M54.6 oxyCODONE-acetaminophen (PERCOCET) 5-325 mg tablet G89.29 As noted above. Above issues addressed with patient. Patient involved in shared decision making for management of medical issues. History and medications reviewed. Epic updated as needed Refills and/or prescriptions taken care of and meds adjusted as indicated after reviewed history, exam and labs. Health Maintenance reviewed. Updated record and/or ordered tests as recorded. Encouraged on efforts at healthy diet and regular exercise and adequate sleep. Stable with control of chronic pain. At this time benefits outweigh risks. Continue to monitor for adverse effects and indications for decreasing dose or tapering off. No signs of diversion or abuse of medication(s); no adverse effects. Continue present management. I spent a total of 45 minutes on the date of the service which included [id number] patient care, completing clinical documentation, obtaining and/or reviewing separately obtained history, performing a medically appropriate examination, counseling and educating the patient/family/caregiver, and ordering medications, tests, or procedures. Kristy Brower MD documented in this encounter [facility] 10-28-2022 Instructions Myriam Obrien MD - 10/28/2022 2:54 PM EDT Deepak Interiano documented in this encounter [facility] 10-28-2022 History of Present illness Narrative Images from the original note were not included. . [facility] Note Patient name: Whitney Ruiz PCP: Kristy Brower MD CC: Follow up chest CT HPI: Whitney Ruiz 77 year old female former [id number] smoker with PMH significant for DM2, HTN, HLD, SVT, asthma, interstitial lung disease, lung nodules, GERD, EMY on CPAP presenting for follow-up chest CT and asthma. She has had recent issues with her asthma, mild SOB and wheezing due to sinus disease. She has had sinus congestion and rhinorrhea with post nasal drip. Constant throat clearing. Past few days she has had facial and ear pain on the right. No fevers or chills. She has needed her albuterol which does help relieve her upper chest congestion. With regards to her ILD, most recent chest CT shows slight progression compared to [address] from , more honeycombing in lower lobes. She denies chronic cough or increased SOB. Last PFT without restriction or decreased diffusion. DATA: PFT 03/2022: Review of PFT shows no obstruction, restriction or decrease in diffusion Labs: Most recent CBC normal Imaging / Diagnostic Studies: DATE OF EXAM: Oct 20 2022 11:06AM [facility] 0541 - CT CHEST WO IVCON / PROCEDURE REASON: Interstitial pulmonary disease (HCC) Comparison: Type of study and date/time RESULT: Limitations: None. Lines, tubes, and devices: None. Lung parenchyma and airways: Central airways are patent. Scattered calcified granulomas largest in the right lower lobe. Bilateral basilar predominant left greater than right subpleural honeycombing and interstitial opacities mildly progressed when compared to 06/20/2019. No consolidating airspace opacities. No suspicious pulmonary nodule. No evidence of significant air trapping. Pleural space: No pleural effusion. No pleural thickening. Lower neck, lymph nodes, and mediastinum: Stable calcified nodule in the left lower lobe incompletely evaluated. Calcified right hilar and mediastinal lymph nodes. No pathologically enlarged lymph nodes by size criteria. Heart, pericardium, and thoracic vessels: The heart is not enlarged, aorta is normal in caliber. Pulmonary trunk is dilated measuring up to 3.6 cm Coronary artery calcifications. Calcifications of the mitral annulus. No pericardial effusion. Bones and soft tissues: No destructive bone lesion. Chest wall is unremarkable. Bony demineralization. Upper abdomen: Cholecystectomy clips. Calcified granulomas. Liver and spleen. Remaining visualized upper abdomen is grossly unremarkable. Applied Computer Science Professor (topogram) images: Unremarkable. IMPRESSION: Mildly progressed interstitial lung disease suggestive of UIP pattern. Dilated pulmonary trunk suggestive of pulmonary arterial hypertension. No concerning airspace opacities or suspicious pulmonary nodules. I personally reviewed the images as well as with the patient which shows progression of her fibrosis PAST MEDICAL HISTORY Diagnosis Date CAD (coronary artery disease) 04/16/2012 70-80% LAD --had stent placed 09/07/14 Depressive disorder, not elsewhere classified Diverticulitis of colon with hemorrhage 2001 DM w/o Complication Type II 04/05/2009 GERD (gastroesophageal reflux disease) Hiatal hernia Hypertension 03/30/1988 IPF (idiopathic pulmonary fibrosis) (HCC) Irritable bowel syndrome Occipital neuralgia Osteoarthritis 06/27/2011 Other chronic sinusitis Other osteoporosis Post-nasal drip Situational depression 12/27/2014 Sleep apnea 03/30/1996 Statin intolerance 12/24/2016 SVT (supraventricular tachycardia) (HCC) 10/02/2018 Thoracic aortic aneurysm (HCC) [address] chest (2014, 2013)--July 09, [address] Unspecified essential hypertension Patient has had since age 33 Vitamin D Deficiency 04/18/2009 ALLERGIES Allergen Reactions Codeine Shortness of Breath Vicodin [Hydrocodon* Intolerance cardiac arrest Adhesive Rash Augmentin [Amoxicil* Shortness of Breath Called and complained that caused SOB Biaxin [Clarithromy* Mental Status Change Cardizem [Diltiazem] Intolerance itching Ciprofloxacin Other: See Comments Muscle pain Clonidine Intolerance low heart rate to 42; BP also dropped; tried patch and was okay for a while but then stopped since affected thinking Coreg [Carvedilol] Intolerance grumpy, runny nose Crestor [Rosuvastat* Intolerance muscle aches all over Cymbalta [Duloxetin* Other: See Comments Elevated BP and blood sugar went up Dicyclomine Shortness of Breath Diovan [Valsartan] Swelling In feet, legs & ankles Doxycycline Vomiting Vomiting after the first dose, intense. Flagyl [Metronidazo* Itching Guaifenesin-Sodium * Intolerance jittery Levofloxacin Other: See Comments Muscle pain Losartan Other: See Comments Made me lose hair. Low back pain, stomach upset Lovastatin Intolerance Muscle aches all over Mobic [Meloxicam] lips swell Morphine Itching possibly was from the IV or tape since was from IV morphine; only affected arm of hand had IV in Nifedipine Intolerance palpitations; also to see if runny nose resolved (did not) Norvasc [Amlodipine* Swelling Sulfa (Sulfonamide * Rash Ultravist [Iopromid* Other: See Comments Pt sts with previous cat scan she had delayed chest tightness omeprazole (PRILOSEC) 20 mg capsule Take 1 capsule by mouth once daily. as directed torsemide (DEMADEX) 10 mg tablet Take 1 tablet by mouth once daily as needed (edema). metoprolol tartrate, short acting, (LOPRESSOR) 50 mg tablet Take 1 tablet by mouth twice daily. ipratropium-albuterol (DUONEB) 0.5 mg-3 mg(2.5 mg base)/3 mL nebu Inhale 3 mL as instructed every 6 hours. Unit dose pack albuterol HFA (PROVENTIL HFA, VENTOLIN HFA) 90 mcg/actuation inhaler Inhale 1-2 Puffs as instructed every 4 hours as needed (for wheezing and shortness of breath). potassium chloride (K-TAB) 10 mEq tablet Take 1 tablet by mouth once daily as needed (When taking diuretic). DAILY fluticasone (FLONASE) 50 mcg/actuation nasal spray Use 1 Coleman in each nostril once daily. (Patient taking differently: Use 1 Coleman in each nostril once daily. Takes daily as needed) Lactobacillus acidophilus (PROBIOTIC ORAL) Take by mouth. MULTI-VITAMIN ORAL Take by mouth. ACETAMINOPHEN (TYLENOL ORAL) Take 500 mg by mouth as needed. aspirin, enteric coated (ASPIRIN, ENTERIC COATED) 81 mg EC tablet Take 81 mg by mouth once daily. clindamycin (CLEOCIN) 150 mg capsule Take 1 capsule by mouth three times daily for 10 days. predniSONE (DELTASONE) 10 mg tablet Take 4 daily for three days, then 3 daily for three days, then 2 daily for three days, then one daily for three days. mecobalamin (B12 ACTIVE ORAL) Take by mouth. (Patient not taking: Reported on 10/28/2022) cholecalciferol, vitD3,/vit K2 (VITAMIN D3-VITAMIN K2 ORAL) Take 1 capsule by mouth once daily. (Patient not taking: Reported on 10/28/2022) lisinopril (ZESTRIL) 5 mg tablet Take 1 tablet by mouth once daily. (Patient not taking: Reported on 10/28/2022) glipiZIDE (GLUCOTROL XL) 2.5 mg 24 hr tablet Take 1 tablet by mouth once daily. (Patient not taking: Reported on 10/28/2022) flash glucose scanning reader (FREESTYLE ALEX 2 READER) Check sugars at least 4 times daily flash glucose sensor (FREESTYLE ALEX 2 SENSOR) kit 1 Each every 2 weeks. E11.9 DM type 2, Insulin: No Lancets lancets Test blood sugar(s) 2 times daily and as needed. To go with lancet pen with glucometer Dx: Type 2 DM - Controlled E11.9 Insulin: No cholecalciferol, Vitamin D3, (VITAMIN D3) 1,250 mcg (50,000 unit) cap capsule Take 50,000 Units by mouth one time a week. (Patient not taking: Reported on 08/26/2022) blood sugar diagnostic (BLOOD GLUCOSE TEST) test strip Test blood sugar(s) 2 times daily and as needed for symptoms of high or low sugars. Dx: Type 2 DM - Controlled E11.9 Insulin: No. Labile sugars that sometimes drop low so needs to check at least twice daily (taking glipizide) CPAP Change settings of Auto PAP to 5-15 cm of water with humidification. Continue orders for: Mask (per patient preference) optional chin strap (if indicated) , filters, tubing, humidifier and lifetime supplies. Per patient insurance will not replace supplies - so request repair and provision of loaner CPAP. COMPOUNDED PRESCRIPTION Powerstep full length original insert (M12.571) Traumatic arthritis of foot, right (primary encounter diagnosis) (Patient taking differently: Powerstep full length original insert (M12.571) Traumatic arthritis of foot, right (primary encounter diagnosis)) COMPOUNDED PRESCRIPTION New CPAP with supplies CPAP pressure 12 cm H2O. Diagnosis: EMY G47.33, Z99.89 Fax to [facility] Social History Tobacco Use Smoking status: Former Packs/day: 1.00 Years: 12.00 Total pack years: 12.00 Types: Cigarettes Start date: 02/21/1963 Quit date: 03/30/1972 Years since quittin.6 Smokeless tobacco: Never Tobacco comments: Mother smoked in childhood home, spouse of 45 years also smoked in home. Vaping Use Vaping Use: Never used Substance Use Topics Alcohol use: No Drug use: No FAMILY HISTORY Problem Relation Age of Onset Arthritis Mother Colon Cancer Mother from this Hypertension Father Heart Father CHF Diabetes Father Cancer Brother Lung Cancer Sister from lung cancer Diabetes Brother Hypertension Brother other (Migraine) Daughter other (Other) Daughter Fibromyalgia other (Migraine) Daughter other (Other) Daughter Fibromyalgia Asthma Daughter other (SLE) Daughter Thyroid Cancer Brother Asthma Brother Asthma Maternal Grandfather Asthma Other Nephew, at age 7. PAST SURGICAL HISTORY Procedure Laterality Date CHOLECYSTECTOMY 2002 COLONOSCOPY 06/09/14 diverticulosis COLONOSCOPY FLX DX W/COLLJ SPEC WHEN PFRMD 01/07/2012 hyperplastic polyps EGD 06/09/14 mild gastritis ESOPHAGOGASTRODUODENOSCOPY TRANSORAL DIAGNOSTIC 03/24/12 EGD PAST SURGICAL HISTORY OF 2000 Patient had to have right wrist bone rebuilt PAST SURGICAL HISTORY OF 09/07/2014 heart stent--mid LAD 2.5X12mm Alpine Xience stent PAST SURGICAL HISTORY OF Excision of lipoma TOTAL ABDOMINAL HYSTERECT W/WO RMVL TUBE OVARY 1999 Patient has both ovaries PMH, Social history, family history and surgical history reviewed and updated in EMR REVIEW OF SYSTEMS: CONSTITUTIONAL: No fevers, chills, nightsweats, unintended weight loss HEENT: See HPI. EYES: No diplopia or blurry vision. CARDIOVASCULAR: No chest pain, dyspnea, palpitations, orthopnea, PND. Recent increased edema PULM: See HPI MUSC-SKEL: No new joint pain, swelling, or erythema. PSY: No concerns regarding depression, anxiety INTEGUMENTARY: No new skin changes PHYSICAL EXAMINATION: BP 136/82 Pulse 69 Resp 15 Wt 183 lb (83.0kg) SpO2 96% General Appearance: Obese female, NAD. Skin: Skin color, texture, turgor normal, no suspicious rashes or lesions. Head: Normocephalic, no masses, lesions. Mild periorbital edema and facial tenderness to palpation of maxillary sinuses Eyes: Sclera, conjunctiva normal Neck: No JVD, no masses. Lungs: Not labored, faint crackles in right lower lobe. Heart: RRR, no mumur. Extremities: Edema, no clubbing. Lymph Nodes: No cervical lymphadenopathy and No supraclavicular lymphadenopathy. Assessment/Plan: Acute maxillary sinusitis -Limited antibiotic choice due to allergy profile. Ordered Clindamycin -Instructed patient to obtain OTC anti-histamine/decongestant IPF -Radiographic findings consistent with UIP/IPF -Slow progression. Discussed initiation of antifibrotic therapy due to the progressive nature of IPF. Patient reluctant to start. Will check PFTs at next visit Mild intermittent asthma, with exacerbation -Exacerbation triggered by sinusitis -See #1 -Oral course of steroids Myriam Obrien MD [facility] documented in this encounter [facility] 10-20-2022 History of Present illness Narrative Radiology Service Progress Note PATIENT NAME: Whitney Ruiz DATE OF SERVICE: October 20, 2022 TIME: 12:07 PM PATIENT IDENTITY VERIFICATION COMPLETED USING TWO (2) IDENTIFIERS: Name and Date of confirmed by patient verbally. FALL SCREENING: Has the patient had 2 falls in the last year or 1 fall with injury or currently using an Ambulatory Assistive Device (Walker, Cane, Wheelchair, Crutches, etc.)? No PATIENT GENDER DATA: Female. status: : No status: NO. PATIENT RELEVANT IMPLANT DATA REVIEWED: Yes RADIOLOGY DEPARTMENT: CT; Exam(s) Completed: Chest PERIPHERAL IV DATA: Not applicable SIGNED BY: RT Nasra(R) October 20, 2022 12:07 PM documented in this encounter [facility] 09-11-2022 Miscellaneous Notes CD/report READY FOR CLOTH COVERED HELMET PULLER AT [facility] Patient requesting x-rays of rt foot be copied to a disk for picker / packer with paper report. documented in this encounter [facility] 08-26-2022 History of Present illness Narrative Radiology Service Progress Note PATIENT NAME: Whitney Ruiz DATE OF SERVICE: August 26, 2022 TIME: 4:54 PM PATIENT IDENTITY VERIFICATION COMPLETED USING TWO (2) IDENTIFIERS: Name and Date of confirmed by patient verbally. FALL SCREENING: Has the patient had 2 falls in the last year or 1 fall with injury or currently using an Ambulatory Assistive Device (Walker, Cane, Wheelchair, Crutches, etc.)? Yes, Patient High Risk for Falls What interventions were put in place to prevent falls during this visit? Instructed Patient to Call for Help if Needed, Offered Assistance with Transfers/Clothing, and Increased Observations by Caregivers PATIENT GENDER DATA: Female. status: : No status: NO. PATIENT RELEVANT IMPLANT DATA REVIEWED: Yes RADIOLOGY DEPARTMENT: General X-ray: Exam(s) Completed: Lower Extremity X-Ray(s): Foot, Right PERIPHERAL IV DATA: Not applicable SIGNED BY: RT Beckie(R) August 26, 2022 4:54 PM documented in this encounter [facility] 08-19-2022 Miscellaneous Notes Patient is currently scheduled with Dr Obrien on 10/28/[address] pf chest order is dated to schedule 11/17 please update order so we may schedule this in September prior to appointment on 10/28 ----- Message from Shanika Santo APRN.CNP sent at 08/15/2022 4:15 PM EDT ----- Can we schedule her for CT chest prior to appointment with Dr. Obrien, at least 1 week prior. Thanks! documented in this encounter [facility] 07-21-2022 History of Present illness Narrative Whitney Ruiz is a 77 year old female patient who presents today in the company of her for 1-month followup of palpitations s/p Holter monitor and echocardiogram. Her PMH is significant for pulmonary fibrosis, EMY (CPAP) and mild CAD. Echocardiogram performed 07/21/2022 demonstrated an EF of 60-65%. Holter monitor performed from 07/03/2022 to 07/17/2022 revealed 1 run of ventricular tachycardia, 45 runs of SVT and ventricular bigeminy. Today, the patient reports significant fatigue/tiredness. She also reports intermittent palpitations. Per the patient's , she is scheduled to see pulmonary next week for followup of pulmonary fibrosis. She continues to use her incentive spirometer. BP is elevated today, and the patient states that she has been on lisinopril 10 mg in the past and has some left at home. [id number] Work Phone: 07-21-2022 History of Present illness Narrative Whitney Ruiz is a 77 year old female patient who presents today in the company of her for 1-month followup of palpitations s/p Holter monitor and echocardiogram. Her PMH is significant for pulmonary fibrosis, EMY (CPAP) and mild CAD. Echocardiogram performed 07/21/2022 demonstrated an EF of 60-65%. Holter monitor performed from 07/03/2022 to 07/17/2022 revealed 1 run of ventricular tachycardia, 45 runs of SVT and ventricular bigeminy. Today, the patient reports significant fatigue/tiredness. She also reports intermittent palpitations. Per the patient's , she is scheduled to see pulmonary next week for followup of pulmonary fibrosis. She continues to use her incentive spirometer. BP is elevated today, and the patient states that she has been on lisinopril 10 mg in the past and has some left at home. [id number] Work Phone: 04-21-2022 History of Present illness Narrative Patient: Whitney Ruiz PCP: Kristy Brower MD CC: ILD HPI: Whitney Ruiz 77 year old morbidly obese female former smoker, 12 pack years (quitting 1972) with PMH significant for EMY on CPAP, GERD, CAD, DM, HTN, and ILD. Tested positive for Covid 02/03/2022. Declined anti-virals at that time. Recent report of worsening ILD on outside CT. Overnight oximetry showed no need for supplemental oxygen and PFTs show mild restriction and preserved diffusion. Autoimmune serologies negative. Today, patient reports she is feeling tired and fatigued since having Covid in January. Daily cough productive of yellow/green sputum. No hemoptysis. Reports post nasal drip. States cough most productive in the morning. No wheezing. No dyspnea at rest. Exertional dyspnea with climbing stairs and walking long distances. Ambulates with cane. No lower extremity edema. PAST MEDICAL HISTORY Diagnosis Date CAD (coronary artery disease) 04/16/2012 70-80% LAD --had stent placed 09/07/14 Depressive disorder, not elsewhere classified Diverticulitis of colon with hemorrhage 2001 DM w/o Complication Type II 04/05/2009 GERD (gastroesophageal reflux disease) Hiatal hernia Hypertension 03/30/1988 Irritable bowel syndrome Occipital neuralgia Osteoarthritis 06/27/2011 Other chronic sinusitis Other osteoporosis Post-nasal drip Pulmonary fibrosis (HCC) Situational depression 12/27/2014 Sleep apnea 03/30/1996 Statin intolerance 12/24/2016 SVT (supraventricular tachycardia) ([facility]) 10/02/2018 Thoracic aortic aneurysm [address] chest (2014, 2013)--July 09, [address] Unspecified essential hypertension Patient has had since age 33 Vitamin D Deficiency 04/18/2009 Allergies: Codeine Shortness of Breath Vicodin [Hydrocodon* Intolerance Comment:cardiac arrest Adhesive Rash Augmentin [Amoxicil* Shortness of Breath Comment:Called and complained that caused SOB Biaxin [Clarithromy* Mental Status Change Cardizem [Diltiazem] Intolerance Comment:itching Ciprofloxacin Other: See Comments Comment:Muscle pain Clonidine Intolerance Comment:low heart rate to 42; BP also dropped; tried patch and was okay for a while but then stopped since affected thinking Coreg [Carvedilol] Intolerance Comment:grumpy, runny nose Crestor [Rosuvastat* Intolerance Comment:muscle aches all over Cymbalta [Duloxetin* Other: See Comments Comment:Elevated BP and blood sugar went up Dicyclomine Shortness of Breath Diovan [Valsartan] Swelling Comment:In feet, legs & ankles Doxycycline Vomiting Comment:Vomiting after the first dose, intense. Flagyl [Metronidazo* Itching Guaifenesin-Sodium * Intolerance Comment:jittery Levofloxacin Other: See Comments Comment:Muscle pain Losartan Other: See Comments Comment:Made me lose hair. Low back pain, stomach upset Lovastatin Intolerance Comment:Muscle aches all over Mobic [Meloxicam] Comment:lips swell Morphine Itching Comment:possibly was from the IV or tape since was from IV morphine; only affected arm of hand had IV in Nifedipine Intolerance Comment:palpitations; also to see if runny nose resolved (did not) Norvasc [Amlodipine* Swelling Sulfa (Sulfonamide * Rash Ultravist [Iopromid* Other: See Comments Comment:Pt sts with previous cat scan she had delayed chest tightness flash glucose scanning reader (FREESTYLE ALEX 2 READER) Check sugars at least 4 times daily flash glucose sensor (FREESTYLE ALEX 2 SENSOR) kit 1 Each every 2 weeks. E11.9 DM type 2, Insulin: No Lancets lancets Test blood sugar(s) 2 times daily and as needed. To go with lancet pen with glucometer Dx: Type 2 DM - Controlled E11.9 Insulin: No albuterol (PROVENTIL) 2.5 mg /3 mL (0.083 %) nebulizer solution Use 3 mL via nebulizer every 4 hours as needed for wheezing/shortness of breath. OVER 5-15 MINUTES. FOR WHEEZING AND SHORTNESS OF BREATH. ipratropium-albuterol (DUONEB) 0.5 mg-3 mg(2.5 mg base)/3 mL nebu Inhale 3 mL as instructed every 6 hours. Unit dose pack glipiZIDE (GLUCOTROL XL) 5 mg 24 hr tablet Take 1 tablet by mouth once daily. albuterol HFA (PROVENTIL HFA, VENTOLIN HFA) 90 mcg/actuation inhaler Inhale 1-2 Puffs as instructed every 4 hours as needed (for wheezing and shortness of breath). cholecalciferol, Vitamin D3, (VITAMIN D3) 1,250 mcg (50,000 unit) cap capsule Take 50,000 Units by mouth one time a week. potassium chloride (K-TAB) 10 mEq tablet Take 1 tablet by mouth once daily as needed (When taking diuretic). DAILY torsemide (DEMADEX) 10 mg tablet Take 1 tablet by mouth once daily as needed (edema). blood sugar diagnostic (BLOOD GLUCOSE TEST) test strip Test blood sugar(s) 2 times daily and as needed for symptoms of high or low sugars. Dx: Type 2 DM - Controlled E11.9 Insulin: No. Labile sugars that sometimes drop low so needs to check at least twice daily (taking glipizide) CPAP Change settings of Auto PAP to 5-15 cm of water with humidification. Continue orders for: Mask (per patient preference) optional chin strap (if indicated) , filters, tubing, humidifier and lifetime supplies. Per patient insurance will not replace supplies - so request repair and provision of loaner CPAP. metoprolol tartrate, short acting, (LOPRESSOR) 50 mg tablet Take 1.5 tablets by mouth twice daily. Two in the AM and one in the PM fluticasone (FLONASE) 50 mcg/actuation nasal spray Use 1 Coleman in each nostril once daily. (Patient taking differently: Use 1 Coleman in each nostril once daily. Takes daily as needed) Lactobacillus acidophilus (PROBIOTIC ORAL) Take by mouth. MULTI-VITAMIN ORAL Take by mouth. COMPOUNDED PRESCRIPTION Powerstep full length original insert (M12.571) Traumatic arthritis of foot, right (primary encounter diagnosis) (Patient taking differently: Powerstep full length original insert (M12.571) Traumatic arthritis of foot, right (primary encounter diagnosis)) COMPOUNDED PRESCRIPTION New CPAP with supplies CPAP pressure 12 cm H2O. Diagnosis: EMY G47.33, Z99.89 Fax to [facility] omeprazole (PRILOSEC) 20 mg capsule Take 20 mg by mouth once daily. ACETAMINOPHEN (TYLENOL ORAL) Take 500 mg by mouth as needed. aspirin, enteric coated (ASPIRIN, ENTERIC COATED) 81 mg EC tablet Take 81 mg by mouth once daily. Social History Tobacco Use Smoking status: Former Packs/day: 1.00 Years: 12.00 Pack years: 12.00 Types: Cigarettes Start date: 02/21/1963 Quit date: 03/30/1972 Years since quittin.0 Smokeless tobacco: Never Tobacco comments: Mother smoked in childhood home, spouse of 45 years also smoked in home. Vaping Use Vaping Use: Never used Substance Use Topics Alcohol use: No Drug use: No Family History Problem Relation Age of Onset Arthritis Mother Colon Cancer Mother from this Hypertension Father Heart Father CHF Diabetes Father Cancer Brother Lung Cancer Sister from lung cancer Diabetes Brother Hypertension Brother other (Migraine) Daughter other (Other) Daughter Fibromyalgia other (Migraine) Daughter other (Other) Daughter Fibromyalgia Asthma Daughter other (SLE) Daughter Thyroid Cancer Brother Asthma Brother Asthma Maternal Grandfather Asthma Other Nephew, at age 7. PAST SURGICAL HISTORY Procedure Laterality Date CHOLECYSTECTOMY 2002 COLONOSCOPY 06/09/14 diverticulosis COLONOSCOPY FLX DX W/COLLJ SPEC WHEN PFRMD 01/07/2012 hyperplastic polyps EGD 06/09/14 mild gastritis ESOPHAGOGASTRODUODENOSCOPY TRANSORAL DIAGNOSTIC 03/24/12 EGD PAST SURGICAL HISTORY OF 2000 Patient had to have right wrist bone rebuilt PAST SURGICAL HISTORY OF 09/07/2014 heart stent--mid LAD 2.5X12mm Alpine Xience stent PAST SURGICAL HISTORY OF Excision of lipoma TOTAL ABDOMINAL HYSTERECT W/WO RMVL TUBE OVARY 1999 Patient has both ovaries I reviewed the past medical history, family history, social history and surgical history with changes noted above and updated in EMR. IMMUNIZATIONS Prevnar - 05/27/2017 Pneumovax - 05/31/2019, 02/23/2009 Influenza - xx COVID- - 07/20/2021 ROS: General: Generally feels fatigued. Appetite good. Actively trying to lose weight with plant based diet. Eyes, Ears, nose, throat: Post nasal drip, rhinorrhea. No purulent nasal discharge, epistaxis. No hoarseness. Vision stable. Cardiac: No angina, edema, orthopnea. Resp: See HPI. GI: No heartburn,dysphagia. Musculoskeletal: No pain. Neuro: No headache, focal weakness, tremor. Skin: No rash. Otherwise negative. PHYSICAL EXAMINATION: BP 162/80 Pulse (!) 54 Resp 14 Wt 87.1 kg (192 lb) SpO2 94% BMI 38.78 kg/m Gen: No acute distress. Cooperative with examination. HEENT: Normocephalic. Sclera, conjunctiva clear. Oral hygeine and dentition good. Resp: No stridor, accessory respiratory muscle use, supra-sternal or intercostal retractions. No wheezes, crackles. CV: Regular rythm. Heart tones normal. Radial pulses normal. Abd: Non distended. MSK: No kyphoscoliosis. Ext: Warm and well perfused. No clubbing, cyanosis, edema. Skin: No rash, ecchymoses. Neuro: Mental status normal. Affect normal. No tremor. DATA: PFT, 04/21/2022 PRE-BRONCH POST-BRONCH Pre LLN Pred ULN %Pred Post %Pred %Chg SPIROMETRY FVC (L) 2.29 1.52 2.16 2.83 106 2.25 104 -1 FEV1 (L) 1.84 1.17 1.66 2.13 110 1.87 112 1 FEV1/FVC 0.81 0.63 0.78 0.90 103 0.83 106 3 PEF L/s (L/sec) 6.01 2.71 4.17 5.64 143 5.08 121 -15 FEF50 (L/sec) 2.38 0.88 2.49 4.10 95 2.95 118 24 FIF50 (L/sec) 3.53 3.37 -4 FEF50/FIF50 0.67 90-100 0.88 29 FIVC (L) 2.28 2.27 0 VZC80-82 (L/sec) 1.87 0.60 1.42 2.65 132 2.05 144 9 Time (sec) 6.24 4.97 -20 FET PEF (sec) 0.07 0.09 21 SALAS (L) 0.07 0.06 -16 Vol Extrap % (%) 3 3 -14 LUNG VOLUMES TGV (L) 1.80 1.62 2.48 3.34 72 ERV (L) 0.15 0.72 21 RV (Pleth) (L) 1.60 1.50 2.13 2.76 75 SVC (L) 2.32 1.52 2.16 2.83 107 IC (L) 2.09 1.44 145 TLC (Pleth) (L) 3.91 3.45 4.33 5.22 90 RV/TLC (Pleth) (%) 41 38 47 56 86 LUNG DIFFUSION DLCOunc (ml/min/mmHg) 17.34 11.39 17.56 23.73 98 VA (L) 3.32 3.17 4.27 5.38 77 DLunc/VA (ml/min/mmHg/L) 5.22 3.05 4.37 5.68 119 BHT (sec) 11.60 IVC (L) 2.18 CXR, 12/30/2021 RESULT: Lines, tubes, and devices: None. Lungs and pleura: Mild central bronchointerstitial prominence, a viral process considered, clinical correlation needed. Patchy atelectasis/infiltrate in the retrocardiac left lower lobe. No pleural effusion or pneumothorax. No suspicious nodule. Cardiomediastinal silhouette: Normal cardiomediastinal silhouette. Bones and soft tissues: Unremarkable. ASSESSMENT/PLAN: 1. ILD (interstitial lung disease) (HCC) - ICD9: 515, ICD10: J84.9 (primary diagnosis) PFT stable. Hold on anti-fibrotic therapy secondary to stable PFTs and side effect profile. Autoimmune serologies normal 2. Former smoker - ICD9: V15.82, ICD10: Z87.891 3. Obstructive sleep apnea - ICD9: 327.23, ICD10: G47.33 Continue use of CPAP 4. Recurrent sinusitis - ICD9: 473.9, ICD10: J32.9 Patient previously seen by ENT and would like a second opinion. - CONSULT TO ENT Shantal Conklin PA-C documented in this encounter [facility] 04-21-2022 History of Present illness Narrative PULM FUNCTION SMARTBLOCK: Provider: Myriam Obrien MD Assisting Tech: DOLORES Early Spirometry w/BD: 1 DLCO: 1 LV - Box: 1 documented in this encounter [facility] 04-21-2022 Nurse Note Intake information documented in the prior visit with DOLORES Early today. documented in this encounter [facility] 04-15-2022 Instructions Kristy Brower MD - 04/15/2022 3:28 PM EST Chronic pain recovery consult--consider for help with back pain. Naproxen 220 mg --since kidney function is good and BP controlled, okay to try Naproxen 220 mg twice daily for 3 days. Okay to extend if needed but make sure to take with food and stay hydrated. documented in this encounter [facility] 04-15-2022 History of Present illness Narrative This note was created using AISriter. Subjective Whitney Ruiz is a 77 year old female. Patient presents with: F/U 3 Month SUBJECTIVE: Whitney Ruiz is a 77 year old year old lady here today for 3 month follow up appointment for review of medical conditions. Ongoing back pain and RUQ pain. radiates from RUQ up to back. Alleviated by laying down in bed. Does not interfere with sleeping. Tylenol helps some but does not take routinely. Tried naproxen after not tried for years--did take a while to ease the pain and was better today. Doing well with plant based diet--losing weight. Noted that walking helps get sugars down. Noted feeling of more weakness in legs. Does use APAP nightly but was not using humidification nightly. Checking sugars 4 times daily. Would like to try CGM. PAST MEDICAL HISTORY Diagnosis Date CAD (coronary artery disease) 04/16/2012 70-80% LAD --had stent placed 09/07/14 Depressive disorder, not elsewhere classified Diverticulitis of colon with hemorrhage 2001 DM w/o Complication Type II 04/05/2009 GERD (gastroesophageal reflux disease) Hiatal hernia Hypertension 03/30/1988 Irritable bowel syndrome Occipital neuralgia Osteoarthritis 06/27/2011 Other chronic sinusitis Other osteoporosis Post-nasal drip Pulmonary fibrosis (HCC) Situational depression 12/27/2014 Sleep apnea 03/30/1996 Statin intolerance 12/24/2016 SVT (supraventricular tachycardia) ([facility]) 10/02/2018 Thoracic aortic aneurysm [address] chest (2014, 2013)--July 09, [address] Unspecified essential hypertension Patient has had since age 33 Vitamin D Deficiency 04/18/2009 Current Outpatient Medications Medication Sig ipratropium-albuterol (DUONEB) 0.5 mg-3 mg(2.5 mg base)/3 mL nebu Inhale 3 mL as instructed every 6 hours. Unit dose pack glipiZIDE (GLUCOTROL XL) 5 mg 24 hr tablet Take 1 tablet by mouth once daily. albuterol HFA (PROVENTIL HFA, VENTOLIN HFA) 90 mcg/actuation inhaler Inhale 1-2 Puffs as instructed every 4 hours as needed (for wheezing and shortness of breath). cholecalciferol, Vitamin D3, (VITAMIN D3) 1,250 mcg (50,000 unit) cap capsule Take 50,000 Units by mouth one time a week. potassium chloride (K-TAB) 10 mEq tablet Take 1 tablet by mouth once daily as needed (When taking diuretic). DAILY torsemide (DEMADEX) 10 mg tablet Take 1 tablet by mouth once daily as needed (edema). blood sugar diagnostic (BLOOD GLUCOSE TEST) test strip Test blood sugar(s) 2 times daily and as needed for symptoms of high or low sugars. Dx: Type 2 DM - Controlled E11.9 Insulin: No. Labile sugars that sometimes drop low so needs to check at least twice daily (taking glipizide) CPAP Change settings of Auto PAP to 5-15 cm of water with humidification. Continue orders for: Mask (per patient preference) optional chin strap (if indicated) , filters, tubing, humidifier and lifetime supplies. Per patient insurance will not replace supplies - so request repair and provision of loaner CPAP. metoprolol tartrate, short acting, (LOPRESSOR) 50 mg tablet Take 1.5 tablets by mouth twice daily. Two in the AM and one in the PM Lactobacillus acidophilus (PROBIOTIC ORAL) Take by mouth. MULTI-VITAMIN ORAL Take by mouth. COMPOUNDED PRESCRIPTION Powerstep full length original insert (M12.571) Traumatic arthritis of foot, right (primary encounter diagnosis) (Patient taking differently: Powerstep full length original insert (M12.571) Traumatic arthritis of foot, right (primary encounter diagnosis)) omeprazole (PRILOSEC) 20 mg capsule Take 20 mg by mouth once daily. ACETAMINOPHEN (TYLENOL ORAL) Take 500 mg by mouth as needed. aspirin, enteric coated (ASPIRIN, ENTERIC COATED) 81 mg EC tablet Take 81 mg by mouth once daily. albuterol (PROVENTIL) 2.5 mg /3 mL (0.083 %) nebulizer solution Use 3 mL via nebulizer every 4 hours as needed for wheezing/shortness of breath. OVER 5-15 MINUTES. FOR WHEEZING AND SHORTNESS OF BREATH. Lancets lancets Test blood sugar(s) 2 times daily and as needed. To go with lancet pen with glucometer Dx: Type 2 DM - Controlled E11.9 Insulin: No fluticasone (FLONASE) 50 mcg/actuation nasal spray Use 1 Coleman in each nostril once daily. (Patient taking differently: Use 1 Coleman in each nostril once daily. Takes daily as needed) COMPOUNDED PRESCRIPTION New CPAP with supplies CPAP pressure 12 cm H2O. 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 Review of Systems Objective Pulse (!) (P) 52 Temp (P) 36.6 C (97.9 F) Resp (P) 18 Wt (P) 87.5 kg (193 lb) SpO2 (P) 96% BMI (P) 38.98 kg/m Physical Exam Constitutional: Appearance: Normal appearance. HENT: Head: Normocephalic. Eyes: Conjunctiva/sclera: Conjunctivae normal. Cardiovascular: Rate and Rhythm: Normal rate and regular rhythm. Heart sounds: Normal heart sounds. Pulmonary: Effort: Pulmonary effort is normal. Breath sounds: Normal breath sounds. Musculoskeletal: Right lower leg: No edema. Left lower leg: No edema. Comments: Tight paraspinal muscles on right; tender Skin: General: Skin is warm and dry. Neurological: General: No focal deficit present. Mental Status: She is alert and oriented to person, place, and time. Psychiatric: Mood and Affect: Mood normal. Behavior: Behavior normal. Thought Content: Thought content normal. Judgment: Judgment normal. Component Latest Ref Rng & Units 01/13/2022 04/07/2022 04/11/2022 Protein, Total 6.3 - 8.0 g/dL 6.5 6.5 Albumin 3.9 - 4.9 g/dL 4.3 4.2 Calcium 8.5 - 10.2 mg/dL 9.6 10.0 Bilirubin, Total 0.2 - 1.3 mg/dL 0.4 0.3 Alkaline Phosphatase 34 - 123 U/L 63 65 AST 13 - 35 U/L 12 (L) 13 ALT 7 - 38 U/L 11 10 Glucose 74 - 99 mg/dL 159 (H) 106 (H) BUN 7 - 21 mg/dL 18 11 Creatinine 0.58 - 0.96 mg/dL 0.69 0.60 Sodium 136 - 144 mmol/L 140 143 Potassium 3.7 - 5.1 mmol/L 4.1 4.1 Chloride 97 - 105 mmol/L 104 106 (H) CO2 22 - 30 mmol/L 23 26 Anion Gap 9 - 18 mmol/L 13 11 eGFR >=60 mL/min/1.73m 89 92 WBC 3.70 - 11.00 k/uL 8.47 7.52 RBC 3.90 - 5.20 m/uL 4.50 4.57 Hemoglobin 11.5 - 15.5 g/dL 13.2 13.3 Hematocrit 36.0 - 46.0 % 39.7 40.7 MCV 80.0 - 100.0 fL 88.2 89.1 MCH 26.0 - 34.0 pg 29.3 29.1 MCHC 30.5 - 36.0 g/dL 33.2 32.7 RDW-CV 11.5 - 15.0 % 14.3 13.9 Platelet Count 150 - 400 k/uL 295 296 MPV 9.0 - 12.7 fL 9.1 9.3 Absolute nRBC <0.01 k/uL <0.01 <0.01 Cholesterol, Total <200 mg/dL 194 Triglyceride <150 mg/dL 95 HDL Cholesterol >39 mg/dL 38 (L) Non HDL Cholesterol <130 mg/dL 156 (H) Fasting Time hrs 13 VLDL Cholesterol <30 mg/dL 19 TC:HDL Ratio <5.10 5.11 (H) LDL Cholesterol <100 mg/dL 137 (H) LDL:HDL Ratio <2.54 3.61 (H) Iron 41 - 186 ug/dL 91 TIBC 232 - 386 ug/dL 256 Transferrin Saturation 15.0 - 57.0 % 35.5 Hemoglobin A1C 4.3 - 5.6 % 7.2 (H) 6.3 (H) Estimated Average Glucose mg/dL 160 134 Vitamin D 25 Hydroxy 31.0 - 80.0 ng/mL 34.1 35.6 TSH 0.270 - 4.200 mIU/L 0.424 0.661 Free T4 0.9 - 1.7 ng/dL 1.1 1.1 Free T3 2.3 - 4.1 pg/mL 2.5 2.6 Vitamin B12 232 - 1,245 pg/mL 595 Folate >4.7 ng/mL 12.5 Ferritin 14.7 - 205.1 ng/mL 237.0 (H) Magnesium 1.7 - 2.3 mg/dL 2.0 Assessment and Plan Encounter Diagnosis ICD-10-CM 1. Controlled type 2 diabetes mellitus without complication, without long-term current use of insulin ([facility]) E11.9 HGB A1C COMP METABOLIC PANEL 2. Chronic right-sided thoracic back pain M54.6 G89.29 3. Vitamin D deficiency E55.9 VITAMIN D 25 HYDROXY 4. Pure hypercholesterolemia E78.00 LIPID PANEL BASIC 5. ILD (interstitial lung disease) ([facility]) J84.9 6. Obstructive sleep apnea G47.33 7. Essential hypertension I10 COMP METABOLIC PANEL CBC 8. Rib pain on right side R07.81 9. Encounter for long-term current use of medication Z79.899 HGB A1C COMP METABOLIC PANEL CBC MAGNESIUM BLD VITAMIN D 25 HYDROXY FERRITIN BLD VITAMIN B12 BLOOD IRON + TIBC TSH BLD T4 FREE/FREE THYROX T3 FREE BLD 10. Thyroid nodule E04.1 TSH BLD T4 FREE/FREE THYROX T3 FREE BLD Above issues addressed with patient. Patient involved in shared decision making for management of medical issues. History and medications reviewed. Epic updated as needed Refills and/or prescriptions taken care of and meds adjusted as indicated after reviewed history, exam and labs. Health Maintenance reviewed. Updated record and/or ordered tests as recorded. Encouraged on efforts at healthy diet and regular exercise and adequate sleep. I spent a total of 50 minutes on the date of the service which included [id number] patient care, completing clinical documentation, obtaining and/or reviewing separately obtained history, performing a medically appropriate examination, counseling and educating the patient/family/caregiver, and ordering medications, tests, or procedures. Kristy Brower MD documented in this encounter [facility] 04-11-2022 Miscellaneous Notes Pt called and is notified of providers message. Pt voices understanding. Carmelita Miller RN Please let her know orders have been placed. Thanks! Pt called in and reports she need a lipid panel and Magnesium labs ordered. Please call Pt once they are put in. documented in this encounter [facility] 04-07-2022 Miscellaneous Notes Patient notified of below results/recommendation, she will discuss further at her next appt, 04/15/2022. 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 Can refer to orthopedic surgeon for further evaluation and treatment documented in this encounter [facility] 03-22-2022 History of Present illness Narrative VIRTUAL VISIT PROGRESS NOTE This is a virtual visit using [employer]ber[employer] video visit. It required patient-provider interaction for the medical decision making as documented below. Whitney Ruiz is a 76 year old female seen for follow up. Had colonoscopy by Dr. Vaughan and was fine. Was having pain in waist that hit hip bone to right rib. Radiates to back. Sore. Hurt in bra strap area. Constant now--better if sits and does nothing. No rash noted. Has felt shaky and weak since colonocopy and COVID. Dr. Vaughan though might be spine issue. Sometimes has to lean on a table while sitting. One day was severe and laying down did not help much; heat did not help much. Had to take it easy yesterday. Better today. Nagging pain. Hurts to lay down and sit up. Hurts when walking. Sometimes lower back pain too. Reviewed had illness in January. Then had COVID Following with Dr. Obrien and Roberta Conklin. 98% pulse ox, 58 HR 162/73 BP today. Had been lower. Plant based diet and lost 16 pounds since October. Balance issues noted. No dizziness. Thinks from weakness. HISTORY REVIEWED (electronic chart updated): PAST MEDICAL HISTORY Diagnosis Date CAD (coronary artery disease) 04/16/2012 70-80% LAD --had stent placed 09/07/14 Depressive disorder, not elsewhere classified Diverticulitis of colon with hemorrhage 2001 DM w/o Complication Type II 04/05/2009 GERD (gastroesophageal reflux disease) Hiatal hernia Hypertension 03/30/1988 Irritable bowel syndrome Occipital neuralgia Osteoarthritis 06/27/2011 Other chronic sinusitis Other osteoporosis Post-nasal drip Pulmonary fibrosis (HCC) Situational depression 12/27/2014 Sleep apnea 03/30/1996 Statin intolerance 12/24/2016 SVT (supraventricular tachycardia) ([facility]) 10/02/2018 Thoracic aortic aneurysm [address] chest (2014, 2013)--July 09, [address] Unspecified essential hypertension Patient has had since age 33 Vitamin D Deficiency 04/18/2009 PAST SURGICAL HISTORY Procedure Laterality Date CHOLECYSTECTOMY 2002 COLONOSCOPY 06/09/14 diverticulosis COLONOSCOPY FLX DX W/COLLJ SPEC WHEN PFRMD 01/07/2012 hyperplastic polyps EGD 06/09/14 mild gastritis ESOPHAGOGASTRODUODENOSCOPY TRANSORAL DIAGNOSTIC 03/24/12 EGD PAST SURGICAL HISTORY OF 2000 Patient had to have right wrist bone rebuilt PAST SURGICAL HISTORY OF 09/07/2014 heart stent--mid LAD 2.5X12mm Alpine Xience stent PAST SURGICAL HISTORY OF Excision of lipoma TOTAL ABDOMINAL HYSTERECT W/WO RMVL TUBE OVARY 1999 Patient has both ovaries FAMILY HISTORY Problem Relation Age of Onset Arthritis Mother Colon Cancer Mother from this Hypertension Father Heart Father CHF Diabetes Father Cancer Brother Lung Cancer Sister from lung cancer Diabetes Brother Hypertension Brother other (Migraine) Daughter other (Other) Daughter Fibromyalgia other (Migraine) Daughter other (Other) Daughter Fibromyalgia Asthma Daughter other (SLE) Daughter Thyroid Cancer Brother Asthma Brother Asthma Maternal Grandfather Asthma Other Nephew, at age 7. Social History Tobacco Use Smoking status: Former Packs/day: 1.00 Years: 12.00 Pack years: 12.00 Types: Cigarettes Start date: 02/21/1963 Quit date: 03/30/1972 Years since quittin.0 Smokeless tobacco: Never Tobacco comments: Mother smoked in childhood home, spouse of 45 years also smoked in home. Vaping Use Vaping Use: Never used Substance Use Topics Alcohol use: No Drug use: No Current Outpatient Medications Medication Sig albuterol (PROVENTIL) 2.5 mg /3 mL (0.083 %) nebulizer solution Use 3 mL via nebulizer every 4 hours as needed for wheezing/shortness of breath. OVER 5-15 MINUTES. FOR WHEEZING AND SHORTNESS OF BREATH. ipratropium-albuterol (DUONEB) 0.5 mg-3 mg(2.5 mg base)/3 mL nebu Inhale 3 mL as instructed every 6 hours. Unit dose pack glipiZIDE (GLUCOTROL XL) 5 mg 24 hr tablet Take 1 tablet by mouth once daily. albuterol HFA (PROVENTIL HFA, VENTOLIN HFA) 90 mcg/actuation inhaler Inhale 1-2 Puffs as instructed every 4 hours as needed (for wheezing and shortness of breath). cholecalciferol, Vitamin D3, (VITAMIN D3) 1,250 mcg (50,000 unit) cap capsule Take 50,000 Units by mouth one time a week. potassium chloride (K-TAB) 10 mEq tablet Take 1 tablet by mouth once daily as needed (When taking diuretic). DAILY torsemide (DEMADEX) 10 mg tablet Take 1 tablet by mouth once daily as needed (edema). blood sugar diagnostic (BLOOD GLUCOSE TEST) test strip Test blood sugar(s) 2 times daily and as needed for symptoms of high or low sugars. Dx: Type 2 DM - Controlled E11.9 Insulin: No. Labile sugars that sometimes drop low so needs to check at least twice daily (taking glipizide) Lancets lancets Test blood sugar(s) 2 times daily and as needed. To go with lancet pen with glucometer Dx: Type 2 DM - Controlled E11.9 Insulin: No CPAP Change settings of Auto PAP to 5-15 cm of water with humidification. Continue orders for: Mask (per patient preference) optional chin strap (if indicated) , filters, tubing, humidifier and lifetime supplies. Per patient insurance will not replace supplies - so request repair and provision of loaner CPAP. metoprolol tartrate, short acting, (LOPRESSOR) 50 mg tablet Take 1.5 tablets by mouth twice daily. Two in the AM and one in the PM fluticasone (FLONASE) 50 mcg/actuation nasal spray Use 1 Coleman in each nostril once daily. (Patient taking differently: Use 1 Coleman in each nostril once daily. Takes daily as needed) Lactobacillus acidophilus (PROBIOTIC ORAL) Take by mouth. MULTI-VITAMIN ORAL Take by mouth. COMPOUNDED PRESCRIPTION Powerstep full length original insert (M12.571) Traumatic arthritis of foot, right (primary encounter diagnosis) (Patient not taking: Reported on 03/06/2022) COMPOUNDED PRESCRIPTION New CPAP with supplies CPAP pressure 12 cm H2O. Diagnosis: EMY G47.33, Z99.89 Fax to [facility] omeprazole (PRILOSEC) 20 mg capsule Take 20 mg by mouth once daily. ACETAMINOPHEN (TYLENOL ORAL) Take 500 mg by mouth as needed. aspirin, enteric coated (ASPIRIN, ENTERIC COATED) 81 mg EC tablet Take 81 mg by mouth once daily. No current facility-administered medications for this visit. ALLERGIES Allergen Reactions Codeine Shortness of Breath Vicodin [Hydrocodon* Intolerance cardiac arrest Adhesive Rash Augmentin [Amoxicil* Shortness of Breath Called and complained that caused SOB Biaxin [Clarithromy* Mental Status Change Cardizem [Diltiazem] Intolerance itching Ciprofloxacin Other: See Comments Muscle pain Clonidine Intolerance low heart rate to 42; BP also dropped; tried patch and was okay for a while but then stopped since affected thinking Coreg [Carvedilol] Intolerance grumpy, runny nose Crestor [Rosuvastat* Intolerance muscle aches all over Cymbalta [Duloxetin* Other: See Comments Elevated BP and blood sugar went up Dicyclomine Shortness of Breath Diovan [Valsartan] Swelling In feet, legs & ankles Doxycycline Vomiting Vomiting after the first dose, intense. Flagyl [Metronidazo* Itching Guaifenesin-Sodium * Intolerance jittery Levofloxacin Other: See Comments Muscle pain Losartan Other: See Comments Made me lose hair. Low back pain, stomach upset Lovastatin Intolerance Muscle aches all over Mobic [Meloxicam] lips swell Morphine Itching possibly was from the IV or tape since was from IV morphine; only affected arm of hand had IV in Nifedipine Intolerance palpitations; also to see if runny nose resolved (did not) Norvasc [Amlodipine* Swelling Sulfa (Sulfonamide * Rash Ultravist [Iopromid* Other: See Comments Pt sts with previous cat scan she had delayed chest tightness REVIEW OF SYSTEMS: As noted in HPI PHYSICAL EXAMINATION: VIDEO EXAM: (if completed, performed via video enabled technology) GENERAL: alert and appropriate, in no distress, well-hydrated, well nourished, and happy, smiling, interactive HEAD: normocephalic, no abnormality or lesion noted EYES: no injection and visual acuity is grossly normal RESPIRATORY: breathing non-labored Test Name Value Interpretation Reference Range Facility Colonoscopy on 03-10-2022 Colonoscopy PATIENTNAME Patient Name: Whitney Ruiz EXAMDATE Procedure Date: 03/10/2022 12:26 PM PATIENTID PATIENTACCOUNTNUM PATIENTDOB Date of : 1945 ADMITTYPE Admit Type: Outpatient PATIENTROOM Site: [facility] [place] 2nd Flr OR Rm 4 ETHNICITY Ethnicity: Patient Declined RACE Race: White ARACELIDR Attending MD: Evan Vaughan DO, [id number] ENDOPROCEDURENAME Procedure: Colonoscopy INDICATION Indications: Screening in patient at increased risk: Colorectal cancer in mother 60 or older PRIMARYPROVIDER Providers: Evan Vaughan DO (Doctor), Nam Almonte RN (Nurse), Delma Ball RN (Nurse), Cat Roberts, Psychiatric Np EDREFPROVIDER Referring: Evan Vaughan DO CURRENT_MEDS Medicines: Monitored Anesthesia Care COMPLIC Complications: No immediate complications. ENDOPROCEDURETEXT Procedure: Pre-Anesthesia Assessment: - Prior to the procedure, a History and Physical was performed, and patient medications and allergies were reviewed. The patient is competent. The risks and benefits of the procedure and the sedation options and risks were discussed with the patient. All questions were answered and informed consent was obtained. Patient identification and proposed procedure were verified by the physician in the pre-procedure area. Mental Status Examination: alert and oriented. Airway Examination: normal oropharyngeal airway and neck mobility. Respiratory Examination: clear to auscultation. CV Examination: normal. Prophylactic Antibiotics: The patient does not require prophylactic antibiotics. Prior Anticoagulants: The patient has taken no anticoagulant or antiplatelet agents. ASA Grade Assessment: II - A patient with mild systemic disease. After reviewing the risks and benefits, the patient was deemed in satisfactory condition to undergo the procedure. The anesthesia plan was to use monitored anesthesia care (MAC). Immediately prior to administration of medications, the patient was re-assessed for adequacy to receive sedatives. The heart rate, respiratory rate, oxygen saturations, blood pressure, adequacy of pulmonary ventilation, and response to care were monitored throughout the procedure. The physical status of the patient was re-assessed after the procedure. After I obtained informed consent, the scope was passed under direct vision. Throughout the procedure, the patient's blood pressure, pulse, and oxygen saturations were monitored continuously. The Colonoscope was introduced through the anus and advanced to the terminal ileum, with identification of the appendiceal orifice and IC valve. The colonoscopy was performed without difficulty. The patient tolerated the procedure well. The quality of the bowel preparation was good. The terminal ileum, ileocecal valve, appendiceal orifice, and rectum were photographed. FINDING Findings: The perianal and digital rectal examinations were normal. Pertinent negatives include normal sphincter tone and no palpable rectal lesions. The terminal ileum appeared normal. Multiple small-mouthed diverticula were found in the sigmoid colon and descending colon. There was evidence of diverticular spasm. Non-bleeding internal hemorrhoids were found during retroflexion. The hemorrhoids were Grade II (internal hemorrhoids that prolapse but reduce spontaneously). The terminal ileum appeared normal. SEDATION Moderate Sedation: See the other procedure note for documentation of moderate sedation with intraservice time. EBL Estimated Blood Loss: Estimated blood loss: none. IMPRESS Impression: - The examined portion of the ileum was normal. - Moderate diverticulosis in the sigmoid colon and in the descending colon. There was evidence of diverticular spasm. - Non-bleeding internal hemorrhoids. - The examined portion of the ileum was normal. - No specimens collected. ENDORECOMMENDATION Recommendation: - Patient has a contact number available for emergencies. The signs and symptoms of potential delayed complications were discussed with the patient. Return to normal activities tomorrow. Written discharge instructions were provided to the patient. - Resume previous diet. - Continue present medications. - Repeat colonoscopy in 5 years for screening purposes. Encounter Diagnosis ICD-10-CM 1. Chronic midline thoracic back pain M54.6 G89.29 2. Chronic midline low back pain, unspecified whether sciatica present M54.50 G89.29 3. Other fatigue R53.83 TSH BLD T4 FREE/FREE THYROX T3 FREE BLD COMP METABOLIC PANEL CBC VITAMIN B12 BLOOD IRON + TIBC FOLATE SERUM FERRITIN BLD 4. RLS (restless legs syndrome) G25.81 FERRITIN BLD 5. Shakiness R25.1 6. History of COVID-19 Z86.16 7. Type 2 diabetes mellitus with diabetic neuropathy, without long-term current use of insulin (HCC) E11.40 HGB A1C 8. Vitamin D deficiency E55.9 VITAMIN D 25 HYDROXY Above issues addressed with patient. Patient involved in shared decision making for management of medical issues. Noted colonoscopy was fine. Ongoing musculoskeletal pain noted. Update labs Further evaluation and treatment as indicated. History and medications reviewed. Epic updated as needed Refills and/or prescriptions taken care of and meds adjusted as indicated after reviewed history, exam and labs. Health Maintenance reviewed. Updated record and/or ordered tests as recorded. Encouraged on efforts at healthy diet and regular exercise and adequate sleep. Continue present meds. Further evaluation and treatment as indicated. Kristy Brower MD documented in this encounter [facility] 02-24-2022 Instructions Amanda Jarrell APRN.CIRCUIT TESTER - 02/24/2022 10:59 AM EST - RICE therapy - see patient instructions for further recommendations. - F/U with PCP in 5-7 days or before if worse. - Discussed Red Flag signs and when to go to ER. - Reviewed plan of care and DC papers with patient. Verbalized understanding. documented in this encounter [facility] 02-24-2022 Note IMPRESSION: Marked degenerative changes which have progressed since previous study Splitting Machine Feeder: PSCB Transcribe Date/Time: Feb 24 2022 10:51A Dictated by : PAVAN SMITH DO This examination was interpreted and the report reviewed and electronically signed by: PAVAN SMITH DO on Feb 24 2022 10:54AM EST DIVISION OF RADIOLOGY 02-24-2022 Note IMPRESSION: Marked degenerative changes which have progressed since previous study Splitting Machine Feeder: PSCB Transcribe Date/Time: Feb 24 2022 10:51A Dictated by : PAVAN SMITH DO This examination was interpreted and the report reviewed and electronically signed by: PAVAN SMITH DO on Feb 24 2022 10:54AM EST DIVISION OF RADIOLOGY 02-24-2022 History of Present illness Narrative Radiology Service Progress Note PATIENT NAME: Whitney Ruiz DATE OF SERVICE: February 24, 2022 TIME: 10:36 AM PATIENT IDENTITY VERIFICATION COMPLETED USING TWO (2) IDENTIFIERS: Name and Date of confirmed by patient verbally. FALL SCREENING: Has the patient had 2 falls in the last year or 1 fall with injury or currently using an Ambulatory Assistive Device (Walker, Cane, Wheelchair, Crutches, etc.)? No PATIENT GENDER DATA: Female. status: : No status: NO. PATIENT RELEVANT IMPLANT DATA REVIEWED: Yes RADIOLOGY DEPARTMENT: General X-ray: Exam(s) Completed: Lower Extremity X-Ray(s): Ankle, Right and Foot, Right PERIPHERAL IV DATA: Not applicable SIGNED BY: RT Beckie(R) February 24, 2022 10:36 AM documented in this encounter [facility] 02-24-2022 History of Present illness Narrative Images from the original note were not included. Subjective Patient came in with multiple complaints. Patient's first complaint was right ear pain when blowing her nose. Patient did recently have COVID 2 weeks ago and just has some left over congestion. Patient normally takes loratadine every day but does make her drowsy so she has not been taking loratadine every day. Patient also says she twisted her right foot about 7 hours ago and is hurt ever since. Patient says it hurts to put pressure and walk on it. Patient says it hurts a little bit to rotate it. Patient says most the pain is on the anterior aspect of the foot going up towards the ankle. Patient denies any numbness tingling or loss of feeling. The history is provided by the patient. No spanish interpreter/translator was used. Foot Trauma Review of Systems Constitutional: Negative. Skin: Negative. Objective Physical Exam Constitutional: Appearance: Normal appearance. HENT: Right Ear: Hearing, tympanic membrane, ear canal and external ear normal. Left Ear: Hearing, tympanic membrane, ear canal and external ear normal. Cardiovascular: Rate and Rhythm: Normal rate and regular rhythm. Heart sounds: Normal heart sounds. Pulmonary: Effort: Pulmonary effort is normal. Breath sounds: Normal breath sounds. Musculoskeletal: Feet: Feet: Comments: Patient is experiencing pain in the area marked above when palpated. Very mild swelling noted. No discoloration noted. Neurological: Mental Status: She is alert. PAST MEDICAL HISTORY Diagnosis Date CAD (coronary artery disease) 04/16/2012 70-80% LAD --had stent placed 09/07/14 Depressive disorder, not elsewhere classified Diverticulitis of colon with hemorrhage 2001 DM w/o Complication Type II 04/05/2009 GERD (gastroesophageal reflux disease) Hiatal hernia Hypertension 03/30/1988 Irritable bowel syndrome Occipital neuralgia Osteoarthritis 06/27/2011 Other chronic sinusitis Other osteoporosis Post-nasal drip Pulmonary fibrosis (HCC) Situational depression 12/27/2014 Sleep apnea 03/30/1996 Statin intolerance 12/24/2016 SVT (supraventricular tachycardia) ([facility]) 10/02/2018 Thoracic aortic aneurysm [address] chest (2014, 2013)--July 09, [address] Unspecified essential hypertension Patient has had since age 33 Vitamin D Deficiency 04/18/2009 PAST SURGICAL HISTORY Procedure Laterality Date CHOLECYSTECTOMY 2002 COLONOSCOPY 06/09/14 diverticulosis COLONOSCOPY FLX DX W/COLLJ SPEC WHEN PFRMD 01/07/2012 hyperplastic polyps EGD 06/09/14 mild gastritis ESOPHAGOGASTRODUODENOSCOPY TRANSORAL DIAGNOSTIC 03/24/12 EGD PAST SURGICAL HISTORY OF 2000 Patient had to have right wrist bone rebuilt PAST SURGICAL HISTORY OF 09/07/2014 heart stent--mid LAD 2.5X12mm Alpine Xience stent PAST SURGICAL HISTORY OF Excision of lipoma TOTAL ABDOMINAL HYSTERECT W/WO RMVL TUBE OVARY 1999 Patient has both ovaries ALLERGIES Codeine, Vicodin [Hydrocodone-Acetaminophen], Adhesive, Augmentin [Amoxicillin-Pot Clavulanate], Biaxin [Clarithromycin], Cardizem [Diltiazem], Ciprofloxacin, Clonidine, Coreg [Carvedilol], Crestor [Rosuvastatin Calcium], Cymbalta [Duloxetine], Dicyclomine, Diovan [Valsartan], Doxycycline, Flagyl [Metronidazole], Guaifenesin-Sodium Citrate, Levofloxacin, Losartan, Lovastatin, Mobic [Meloxicam], Morphine, Nifedipine, Norvasc [Amlodipine Besylate], Sulfa (Sulfonamide Antibiotics), and Ultravist [Iopromide] MEDICATIONS albuterol (PROVENTIL) 2.5 mg /3 mL (0.083 %) nebulizer solution Use 3 mL via nebulizer every 4 hours as needed for wheezing/shortness of breath. OVER 5-15 MINUTES. FOR WHEEZING AND SHORTNESS OF BREATH. ipratropium-albuterol (DUONEB) 0.5 mg-3 mg(2.5 mg base)/3 mL nebu Inhale 3 mL as instructed every 6 hours. Unit dose pack glipiZIDE (GLUCOTROL XL) 5 mg 24 hr tablet Take 1 tablet by mouth once daily. albuterol HFA (PROVENTIL HFA, VENTOLIN HFA) 90 mcg/actuation inhaler Inhale 1-2 Puffs as instructed every 4 hours as needed (for wheezing and shortness of breath). cholecalciferol, Vitamin D3, (VITAMIN D3) 1,250 mcg (50,000 unit) cap capsule Take 50,000 Units by mouth one time a week. potassium chloride (K-TAB) 10 mEq tablet Take 1 tablet by mouth once daily as needed (When taking diuretic). DAILY torsemide (DEMADEX) 10 mg tablet Take 1 tablet by mouth once daily as needed (edema). blood sugar diagnostic (BLOOD GLUCOSE TEST) test strip Test blood sugar(s) 2 times daily and as needed for symptoms of high or low sugars. Dx: Type 2 DM - Controlled E11.9 Insulin: No. Labile sugars that sometimes drop low so needs to check at least twice daily (taking glipizide) Lancets lancets Test blood sugar(s) 2 times daily and as needed. To go with lancet pen with glucometer Dx: Type 2 DM - Controlled E11.9 Insulin: No CPAP Change settings of Auto PAP to 5-15 cm of water with humidification. Continue orders for: Mask (per patient preference) optional chin strap (if indicated) , filters, tubing, humidifier and lifetime supplies. Per patient insurance will not replace supplies - so request repair and provision of loaner CPAP. metoprolol tartrate, short acting, (LOPRESSOR) 50 mg tablet Take 1.5 tablets by mouth twice daily. Two in the AM and one in the PM fluticasone (FLONASE) 50 mcg/actuation nasal spray Use 1 Coleman in each nostril once daily. (Patient taking differently: Use 1 Coleman in each nostril once daily. Takes daily as needed) Lactobacillus acidophilus (PROBIOTIC ORAL) Take by mouth. MULTI-VITAMIN ORAL Take by mouth. COMPOUNDED PRESCRIPTION Powerstep full length original insert (M12.571) Traumatic arthritis of foot, right (primary encounter diagnosis) COMPOUNDED PRESCRIPTION New CPAP with supplies CPAP pressure 12 cm H2O. Diagnosis: EMY G47.33, Z99.89 Fax to [facility] omeprazole (PRILOSEC) 20 mg capsule Take 20 mg by mouth once daily. ACETAMINOPHEN (TYLENOL ORAL) Take 500 mg by mouth as needed. aspirin, enteric coated (ASPIRIN, ENTERIC COATED) 81 mg EC tablet Take 81 mg by mouth once daily. FAMILY HISTORY Problem Relation Age of Onset Arthritis Mother Colon Cancer Mother from this Hypertension Father Heart Father CHF Diabetes Father Cancer Brother Lung Cancer Sister from lung cancer Diabetes Brother Hypertension Brother other (Migraine) Daughter other (Other) Daughter Fibromyalgia other (Migraine) Daughter other (Other) Daughter Fibromyalgia Asthma Daughter other (SLE) Daughter Thyroid Cancer Brother Asthma Brother Asthma Maternal Grandfather Asthma Other Nephew, at age 7. Social History Tobacco Use Smoking status: Former Packs/day: 1.00 Years: 12.00 Pack years: 12.00 Types: Cigarettes Start date: 02/21/1963 Quit date: 03/30/1972 Years since quittin.9 Smokeless tobacco: Never Tobacco comments: Mother smoked in childhood home, spouse of 45 years also smoked in home. Vaping Use Vaping Use: Never used Substance Use Topics Alcohol use: No Drug use: No ASSESSMENT/PLAN: 1. Pain - ICD9: 780.96, ICD10: R52 - XR ANKLE GENERAL 3V AP/LAT/OBL RIGHT - XR FOOT GENERAL 3V AP/LAT/OBL RIGHT * * * * Physician Interpretation * * * * RIGHT Ankle and foot HISTORY: 76 years old Clinical information: Pain TECHNIQUE: Images: XR ANKLE 3V AP/LAT/OBL RT, XR FOOT 3V AP/LAT/OBL RT Comparison: RIGHT foot 07/12/2020 RESULT: Findings: Ankle: Small amount of soft tissue swelling is seen laterally No fractures or dislocations are seen. Foot: Large anterior heel spur. Severe narrowing of the first MTP joint marked narrowing of all interphalangeal joints. Small bunion medial distal first metatarsal. Severe narrowing of the second through fifth metatarsal tarsal joints. Moderate narrowing of all the intertarsal joints No fractures or dislocations are seen. IMPRESSION IMPRESSION: Marked degenerative changes which have progressed since previous study Splitting Machine Feeder: ELEANOR Transcribe Date/Time: Feb 24 2022 10:51A Dictated by : PAVAN SMITH, DO This time patient instructed to take her Claritin every day for a week or 2 and rest her foot ice and elevate it give it a few days see if it feels any better and if not follow-up patient was okay with this care plan. Amanda Jarrell APRN.JACKIE documented in this encounter [facility] 02-03-2022 Miscellaneous Notes Called patient. Reports that she is tired and fatigued. Sinus congestion and sore throat. Cough productive of light yellow sputum. No shortness of breath. No fevers. Chills last night. Symptoms started on 02/02/2022. Tested positive today at home. Patient declines anti-viral medications. Instructed to call the office is symptoms worsen or she becomes short of breath. Shantal Conklin PA-C Patient calls states she tested positive on a home test for COVID this morning. States she is worried because she has only had 1 vaccine. She does not have a thermometer to check temperature. Symptoms today include, sore throat, cough with lt yellow phlegm, sinus drainage, watery eyes, fatigue. Patient denies difficulty breathing or SOB. She has been using throat lozenges to help with throat irritation and vitamin C. She would like a call from pulm nurse at [phone]. documented in this encounter [facility] 01-21-2022 Miscellaneous Notes Faxed. Ana Maria Pozo LPN Alison with [facility] calls to report they received an order for pt for nebulizer. Alison reports the order needs to have: Nebulizer with Compressor. Please review and re-fax order. Roula Morales LPN documented in this encounter [facility] 01-16-2022 History of Present illness Narrative Images from the original note were not included. . [facility] Note Patient name: Whitney Ruiz PCP: Kristy Brower MD CC: Follow-up ED visit HPI: Whitney Ruiz 76 year old morbidly obese female with PMH significant for EMY on CPAP, GERD, CAD, DM, HTN and ILD. Recent report of worsening ILD on outside CT. Overnight oximetry no need for oxygen and PFTs show mild restriction and preserved diffusion. Review of CT images from show slight worsening of ILD in lower lobes with patchy areas of honeycombing. Autoimmune serologies were negative. Recently seen in ED for bronchitis. She states she had never felt more ill in her life. She had fever to 101 degrees, severe coughing with yellow green phlegm, chest pain, sinus congestion and drainage, loss of sense of smell. COVID negative but tested in less that 24 hours of symptoms. Seen in ED in [place] so do not have records. According to the patient she did not have pneumonia, treated for bronchitis with prednisone and Augmentin. Feeling better but still having sinus issues, fatigue. Throat feels sore and irritated when breaths in air. Trying to use spirometer. Used nebulizer which helped. DATA: Labs: Culture Many normal respiratory noah Abnormal No Staphylococcus aureus isolated. No Pseudomonas aeruginosa isolated. Smear Result Abnormal Many Mixed oral noah Moderate Polymorphonuclear leukocytes Ref Range & Units 1 mo ago (12/13/21) CHROMATIN AB QUAL Negative Negative Chromatin Antibody <1.0 AI <0.2 Component Ref Range & Units 1 mo ago (12/13/21) Ribosomal DERRICK FOLLOWER Qualitative Negative Negative Component Ref Range & Units 1 mo ago (12/13/21) YELITZA 1 ANTIBODY QUAL Negative Negative Component Ref Range & Units 1 mo ago (12/13/21) Scleroderma Ab Qual Negative Negative Scleroderma Ab, IgG <1.0 AI <0.2 Component Ref Range & Units 1 mo ago (12/13/21) CENTROMERE AB QUAL Negative Negative Centromere Ab <1.0 AI <0.2 Component Ref Range & Units 1 mo ago (12/13/21) SSB Antibody <1.0 AI <0.2 Component Ref Range & Units 1 mo ago (12/13/21) SSA Antibody Qual Negative Negative SSA Antibody IgG <1.0 AI <0.2 Component Ref Range & Units 1 mo ago (12/13/21) DERRICK FOLLOWER Antibody QUAL Negative Negative DERRICK FOLLOWER Antibody <1.0 AI <0.2 Component Ref Range & Units 1 mo ago DNA Antibody w/Confirmation <30 IU/mL 12.29 Component Ref Range & Units 1 mo ago (12/13/21) SM Antibody Qual Negative Negative Component Ref Range & Units 1 mo ago CCP Antibody IgG Qualitative Negative Negative CCP Antibody, IgG <20 Units <15 Component Ref Range & Units 1 mo ago Rheumatoid Factor <16 IU/mL <10 Imaging / Diagnostic Studies: DATE OF EXAM: Dec 30 2021 5:26PM WOX [id number] - XR CHEST 2V FRONTAL/LAT / PROCEDURE REASON: multiple diagnoses EXAMINATION: CHEST RADIOGRAPH (2 VIEW FRONTAL & LATERAL) CLINICAL HISTORY: Bronchitis ILD (interstitial lung disease) ([facility]) MQ: [id number] EXAM DATE/TIME: 12/30/2021 5:26 PM COMPARISON: No relevant prior studies available. RESULT: Lines, tubes, and devices: None. Lungs and pleura: Mild central bronchointerstitial prominence, a viral process considered, clinical correlation needed. Patchy atelectasis/infiltrate in the retrocardiac left lower lobe. No pleural effusion or pneumothorax. No suspicious nodule. Cardiomediastinal silhouette: Normal cardiomediastinal silhouette. Bones and soft tissues: Unremarkable. I personally reviewed the images and agree with assessment PAST MEDICAL HISTORY Diagnosis Date CAD (coronary artery disease) 04/16/2012 70-80% LAD --had stent placed 09/07/14 Depressive disorder, not elsewhere classified Diverticulitis of colon with hemorrhage 2001 DM w/o Complication Type II 04/05/2009 GERD (gastroesophageal reflux disease) Hiatal hernia Hypertension 03/30/1988 Irritable bowel syndrome Occipital neuralgia Osteoarthritis 06/27/2011 Other chronic sinusitis Other osteoporosis Post-nasal drip Pulmonary fibrosis ([facility]) Situational depression 12/27/2014 Sleep apnea 03/30/1996 Statin intolerance 12/24/2016 SVT (supraventricular tachycardia) ([facility]) 10/02/2018 Thoracic aortic aneurysm [address] chest (2014, 2013)--July 09, [address] Unspecified essential hypertension Patient has had since age 33 Vitamin D Deficiency 04/18/2009 ALLERGIES Allergen Reactions Codeine Shortness of Breath Vicodin [Hydrocodon* Intolerance cardiac arrest Adhesive Rash Augmentin [Amoxicil* Shortness of Breath Called and complained that caused SOB Biaxin [Clarithromy* Mental Status Change Cardizem [Diltiazem] Intolerance itching Ciprofloxacin Other: See Comments Muscle pain Clonidine Intolerance low heart rate to 42; BP also dropped; tried patch and was okay for a while but then stopped since affected thinking Coreg [Carvedilol] Intolerance grumpy, runny nose Crestor [Rosuvastat* Intolerance muscle aches all over Cymbalta [Duloxetin* Other: See Comments Elevated BP and blood sugar went up Dicyclomine Shortness of Breath Diovan [Valsartan] Swelling In feet, legs & ankles Doxycycline Vomiting Vomiting after the first dose, intense. Flagyl [Metronidazo* Itching Guaifenesin-Sodium * Intolerance jittery Levofloxacin Other: See Comments Muscle pain Losartan Other: See Comments Made me lose hair. Low back pain, stomach upset Lovastatin Intolerance Muscle aches all over Mobic [Meloxicam] lips swell Morphine Itching possibly was from the IV or tape since was from IV morphine; only affected arm of hand had IV in Nifedipine Intolerance palpitations; also to see if runny nose resolved (did not) Norvasc [Amlodipine* Swelling Sulfa (Sulfonamide * Rash Ultravist [Iopromid* Other: See Comments Pt sts with previous cat scan she had delayed chest tightness [START ON 01/17/2022] amoxicillin-clavulanic acid (AUGMENTIN) 875-125 mg per tablet Take 1 tablet by mouth twice daily for 10 days. ipratropium-albuterol (DUONEB) 0.5 mg-3 mg(2.5 mg base)/3 mL nebu Inhale 3 mL as instructed every 6 hours. Unit dose pack glipiZIDE (GLUCOTROL XL) 5 mg 24 hr tablet Take 1 tablet by mouth once daily. albuterol HFA (PROVENTIL HFA, VENTOLIN HFA) 90 mcg/actuation inhaler Inhale 1-2 Puffs as instructed every 4 hours as needed (for wheezing and shortness of breath). cholecalciferol, Vitamin D3, (VITAMIN D3) 1,250 mcg (50,000 unit) cap capsule Take 50,000 Units by mouth one time a week. potassium chloride (K-TAB) 10 mEq tablet Take 1 tablet by mouth once daily as needed (When taking diuretic). DAILY torsemide (DEMADEX) 10 mg tablet Take 1 tablet by mouth once daily as needed (edema). blood sugar diagnostic (BLOOD GLUCOSE TEST) test strip Test blood sugar(s) 2 times daily and as needed for symptoms of high or low sugars. Dx: Type 2 DM - Controlled E11.9 Insulin: No. Labile sugars that sometimes drop low so needs to check at least twice daily (taking glipizide) Lancets lancets Test blood sugar(s) 2 times daily and as needed. To go with lancet pen with glucometer Dx: Type 2 DM - Controlled E11.9 Insulin: No CPAP Change settings of Auto PAP to 5-15 cm of water with humidification. Continue orders for: Mask (per patient preference) optional chin strap (if indicated) , filters, tubing, humidifier and lifetime supplies. Per patient insurance will not replace supplies - so request repair and provision of loaner CPAP. metoprolol tartrate, short acting, (LOPRESSOR) 50 mg tablet Take 1.5 tablets by mouth twice daily. Two in the AM and one in the PM fluticasone (FLONASE) 50 mcg/actuation nasal spray Use 1 Coleman in each nostril once daily. (Patient taking differently: Use 1 Coleman in each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 04/18/2009 ALLERGIES Allergen Reactions Codeine Shortness of Breath Vicodin [Hydrocodon* Intolerance cardiac arrest Adhesive Rash Augmentin [Amoxicil* Shortness of Breath Called and complained that caused SOB Biaxin [Clarithromy* Mental Status Change Cardizem [Diltiazem] Intolerance itching Ciprofloxacin Other: See Comments Muscle pain Clonidine Intolerance low heart rate to 42; BP also dropped; tried patch and was okay for a while but then stopped since affected thinking Coreg [Carvedilol] Intolerance grumpy, runny nose Crestor [Rosuvastat* Intolerance muscle aches all over Cymbalta [Duloxetin* Other: See Comments Elevated BP and blood sugar went up Dicyclomine Shortness of Breath Diovan [Valsartan] Swelling In feet, legs & ankles Doxycycline Vomiting Vomiting after the first dose, intense. Flagyl [Metronidazo* Itching Guaifenesin-Sodium * Intolerance jittery Levofloxacin Other: See Comments Muscle pain Losartan Other: See Comments Made me lose hair. Low back pain, stomach upset Lovastatin Intolerance Muscle aches all over Mobic [Meloxicam] lips swell Morphine Itching possibly was from the IV or tape since was from IV morphine; only affected arm of hand had IV in Nifedipine Intolerance palpitations; also to see if runny nose resolved (did not) Norvasc [Amlodipine* Swelling Sulfa (Sulfonamide * Rash Ultravist [Iopromid* Other: See Comments Pt sts with previous cat scan she had delayed chest tightness glipiZIDE (GLUCOTROL XL) 5 mg 24 hr tablet Take 1 tablet by mouth once daily. albuterol HFA (PROVENTIL HFA, VENTOLIN HFA) 90 mcg/actuation inhaler Inhale 1-2 Puffs as instructed every 4 hours as needed (for wheezing and shortness of breath). cholecalciferol, Vitamin D3, (VITAMIN D3) 1,250 mcg (50,000 unit) cap capsule Take 50,000 Units by mouth one time a week. potassium chloride (K-TAB) 10 mEq tablet Take 1 tablet by mouth once daily as needed (When taking diuretic). DAILY torsemide (DEMADEX) 10 mg tablet Take 1 tablet by mouth once daily as needed (edema). blood sugar diagnostic (BLOOD GLUCOSE TEST) test strip Test blood sugar(s) 2 times daily and as needed for symptoms of high or low sugars. Dx: Type 2 DM - Controlled E11.9 Insulin: No. Labile sugars that sometimes drop low so needs to check at least twice daily (taking glipizide) Lancets lancets Test blood sugar(s) 2 times daily and as needed. To go with lancet pen with glucometer Dx: Type 2 DM - Controlled E11.9 Insulin: No CPAP Change settings of Auto PAP to 5-15 cm of water with humidification. Continue orders for: Mask (per patient preference) optional chin strap (if indicated) , filters, tubing, humidifier and lifetime supplies. Per patient insurance will not replace supplies - so request repair and provision of loaner CPAP. metoprolol tartrate, short acting, (LOPRESSOR) 50 mg tablet Take 1.5 tablets by mouth twice daily. Two in the AM and one in the PM fluticasone (FLONASE) 50 mcg/actuation nasal spray Use 1 Coleman in each nostril once daily. (Patient taking differently: Use 1 Coleman in each nostril once daily. Takes daily as needed) Lactobacillus acidophilus (PROBIOTIC ORAL) Take by mouth. MULTI-VITAMIN ORAL Take by mouth. COMPOUNDED PRESCRIPTION Powerstep full length original insert (M12.571) Traumatic arthritis of foot, right (primary encounter diagnosis) COMPOUNDED PRESCRIPTION New CPAP with supplies CPAP pressure 12 cm H2O. Diagnosis: EMY G47.33, Z99.89 Fax to [facility] omeprazole (PRILOSEC) 20 mg capsule Take 20 mg by mouth once daily. ACETAMINOPHEN (TYLENOL ORAL) Take 500 mg by mouth as needed. aspirin, enteric coated (ASPIRIN, ENTERIC COATED) 81 mg EC tablet Take 81 mg by mouth once daily. azelastine (ASTELIN, ASTEPRO) 0.1% nasal spray Use 1 Coleman in each nostril twice daily. amoxicillin-clavulanic acid (AUGMENTIN) 875-125 mg per tablet Take 1 tablet by mouth twice daily. (Patient not taking: No sig reported) Social History Tobacco Use Smoking status: Former Packs/day: 1.00 Years: 12.00 Pack years: 12.00 Types: Cigarettes Start date: 02/21/1963 Quit date: 03/30/1972 Years since quittin.7 Smokeless tobacco: Never Tobacco comments: Mother smoked in childhood home, spouse of 45 years also smoked in home. Vaping Use Vaping Use: Never used Substance Use Topics Alcohol use: No Drug use: No Pets: none. No occupational exposures FAMILY HISTORY Problem Relation Age of Onset Arthritis Mother Colon Cancer Mother from this Hypertension Father Heart Father CHF Diabetes Father Cancer Brother Lung Cancer Sister from lung cancer Diabetes Brother Hypertension Brother other (Migraine) Daughter other (Other) Daughter Fibromyalgia other (Migraine) Daughter other (Other) Daughter Fibromyalgia Asthma Daughter other (SLE) Daughter Thyroid Cancer Brother Asthma Brother Asthma Maternal Grandfather Asthma Other Nephew, at age 7. PAST SURGICAL HISTORY Procedure Laterality Date CHOLECYSTECTOMY 2002 COLONOSCOPY 06/09/14 diverticulosis COLONOSCOPY FLX DX W/COLLJ SPEC WHEN PFRMD 01/07/2012 hyperplastic polyps EGD 06/09/14 mild gastritis ESOPHAGOGASTRODUODENOSCOPY TRANSORAL DIAGNOSTIC 03/24/12 EGD PAST SURGICAL HISTORY OF 2000 Patient had to have right wrist bone rebuilt PAST SURGICAL HISTORY OF 09/07/2014 heart stent--mid LAD 2.5X12mm Alpine Xience stent PAST SURGICAL HISTORY OF Excision of lipoma TOTAL ABDOMINAL HYSTERECT W/WO RMVL TUBE OVARY 1999 Patient has both ovaries PMH, Social history, family history and surgical history reviewed and updated in EMR REVIEW OF SYSTEMS: CONSTITUTIONAL: No fevers, chills, nightsweats, unintended weight loss HEENT: Denies headaches or facial pressure. Positive nasal congestion/sinus symptoms, post nasal drip EYES: No diplopia or blurry vision. CARDIOVASCULAR: No chest pain, palpitations. Mild edema. PULM: See HPI. No nocturnal cough GI: No dysphagia/odynophagia, problematic reflux. IBS. NEURO: No new balance problems, peripheral weakness/paresthesias or numbness of concern. MUSC-SKEL: Polyarticular joint pain and swelling, no erythema. PSY: No concerns regarding depression, anxiety INTEGUMENTARY: No new skin changes, thickening, rashes PHYSICAL EXAMINATION: BP 164/86 Pulse 54 Wt 206 lb (93.4kg) SpO2 97% General Appearance: Obese female, NAD Skin: Skin color, texture, turgor normal, no suspicious rashes or lesions. Head: Normocephalic, no masses, lesions, tenderness or abnormalities. Eyes: Sclera, conjunctiva normal Oropharynx: No oral lesions, normal aperature Neck: No JVD, no masses Lungs: Not labored, no wheezes. Faint crackles left base Heart: RRR, no murmur Extremities: Osteoarthritis changes, mild edema, no clubbing Musculoskeletal: No major joint deformities or erythema Neurologic: Alert and oriented, no focal finding. Lymph Nodes: No cervical lymphadenopathy and No supraclavicular lymphadenopathy. Assessment/Plan: Pulmonary fibrosis -Request images again from [facility] -Finding most consistent with UIP/IPF -Autoimmune serologies -Would not recommend antifibrotic therapy at this time due to preservation of lung function and side effect profile Morbid obesity -Class 3 obesity, BMI 41 -Weight loss advised Post nasal drip -Cough due to PND rather than pulmonary fibrosis -Instructed patient to use Astepro nasal in evening and continue Flonase in am Myriam Obrien MD [facility] documented in this encounter [facility] 11-18-2021 History of Present illness Narrative History: Whtiney Ruiz, a 76 year old female, presents for eval of intermittent fac pres, PND, runny-nose for years. No improv w abx, sinus rinse. Occ flonase helps. H/o L thyroid nods. US 07/12/21: 3 x 2 x 2.1 cm L inf nod - smaller. US guided FNA L nod 01/11/19: benign. US 12/28/18: 4.2 x 3 x 2.7 cm L nod - larger. US 02/03/18: stable 2.2 x 2.5 x 3.5 L nod (previously read as 2 nodules). US 01/30/17: 1.7 cm and 1.6 cm, stable and smaller respectively. H/o L thyroid nod. US 02/12: lager 2.5 cm L nod. US guided FNA 03/14: colloid nod. US 02/27/15: 1.9 cm L nod (smaller - previous 2.5 cm). US guided FNA 02/28/14: benign colloid nod. US 02/09/14: 2.5 cm L nod. TSH 01/03/14: 0.619. Sinus CT 06/07/12: wnl. Allergy testing neg in past. H/o PND, intermittent runny-nose. On CPAP. No history of sinus/nasal surgery. NIDDM. PE: Alert; oriented; well-developed; no apparent distress. Normal voice; normal communication. Eyes: EOMI, pupils symmetric and reactive bilaterally. Nose: patent, normal mucosa, no congestion, no rhinorrhea. Oral cavity, oropharynx: No ulcerative or mass lesions, tongue midline, palate elevates symmetrically, tongue base and floor of mouth soft. Neck: nontender, no lymphadenopathy or masses. Thyroid: no masses. Face: symmetric, sinuses nontender, skin without lesions. Salivary glands: normal size, nontender, no masses. Ears: R: EAC free of lesions. TM clear and mobile. L: EAC free of lesions. TM clear and mobile. Neurologic: event sales assistant II-XII grossly intact. Procedure: Sinonasal endoscopy. Indication: Sinus symptoms. R/o infection, lesion. Description of procedure: A flexible laryngoscope was used to visualize the nasal cavity. The mucosa was as above. Left: Polyps were not noted in the middle meatus. Purulence was not noted in the middle meatus. Polyps were not noted in the spenoethmoid recess. Purulence was not noted in the sphenoethmoid recess. Right: Polyps were not noted in the middle meatus. Purulence was not noted in the middle meatus. Polyps were not noted in the spenoethmoid recess. Purulence was not noted in the sphenoethmoid recess. The nasopharynx was free of ulcerative or mass lesions. Impression: 1. Intermittent fac pres, PND, runny-nose for years. No improv w abx, sinus rinse. Occ flonase helps.Reassured exam, including SNE wnl. Rec try astelin. Use humidification on CPAP. F/up prn. 2. L thyroid nodule. Smaller. US guided FNA '19 benign. No further f/up needed. Medical Decision Making: Problems: Moderate: 2+ stable chronic illnesses Risk: Moderate: Drug management Medical Decision Making Level: 4 - Moderate documented in this encounter [facility] 10-22-2021 History of Present illness Narrative This note was created using Gifiter. Subjective Whitney Ruiz is a 76 year old female. Patient presents with: Follow Up SUBJECTIVE: Whitney Ruiz is a 76 year old year old lady here today for 3 month follow up appointment for review of medical conditions. Tired more than before. Some issues with urinary frequency but no other persistent UTI symptoms. Sinuses pain and pressure, drainage with sore throat. Has had weeks of symptoms. Eyes can get curste from drainage. Has used saline eye drops. Told by eye doctor, no infection or DM changes. Also headache yesteday. Right ear ache. Using Flonase and Netti pot. Also noted still hurts all over. In the past was treated with tramadol and had helped. Half pill had helped pain so could sleep. Last RX has lasted. Does not need every day but helps to have on hand for episodes of severe pain. PAST MEDICAL HISTORY Diagnosis Date CAD (coronary artery disease) 04/16/2012 70-80% LAD --had stent placed 09/07/14 Depressive disorder, not elsewhere classified Diabetes mellitus type 2, controlled, without complications (HCC) Diaphragmatic hernia without mention of obstruction or gangrene Hiatal hernia Diverticulitis of colon with hemorrhage 2001 DM w/o Complication Type II 04/05/2009 GERD (gastroesophageal reflux disease) Hypertension 03/30/1988 Irritable bowel syndrome Obstructive sleep apnea Occipital neuralgia Osteoarthritis 06/27/2011 Other chronic sinusitis Other osteoporosis Situational depression 12/27/2014 Sleep apnea 03/30/1996 Snoring Statin intolerance 12/24/2016 SVT (supraventricular tachycardia) (HCC) 10/02/2018 Thoracic aortic aneurysm (HCC) [address] chest (2014, 2013)--July 09, [address] Unspecified essential hypertension Patient has had since age 33 Unspecified sleep apnea On CPAP Vitamin D Deficiency 04/18/2009 Current Outpatient Medications Medication Sig cholecalciferol, Vitamin D3, (VITAMIN D3) 1,250 mcg (50,000 unit) cap capsule Take 50,000 Units by mouth one time a week. potassium chloride (K-TAB) 10 mEq tablet Take 1 tablet by mouth once daily as needed (When taking diuretic). DAILY torsemide (DEMADEX) 10 mg tablet Take 1 tablet by mouth once daily as needed (edema). blood sugar diagnostic (BLOOD GLUCOSE TEST) test strip Test blood sugar(s) 2 times daily and as needed for symptoms of high or low sugars. Dx: Type 2 DM - Controlled E11.9 Insulin: No. Labile sugars that sometimes drop low so needs to check at least twice daily (taking glipizide) Lancets lancets Test blood sugar(s) 2 times daily and as needed. To go with lancet pen with glucometer Dx: Type 2 DM - Controlled E11.9 Insulin: No CPAP Change settings of Auto PAP to 5-15 cm of water with humidification. Continue orders for: Mask (per patient preference) optional chin strap (if indicated) , filters, tubing, humidifier and lifetime supplies. Per patient insurance will not replace supplies - so request repair and provision of loaner CPAP. metoprolol tartrate, short acting, (LOPRESSOR) 50 mg tablet Take 1.5 tablets by mouth twice daily. Two in the AM and one in the PM glipiZIDE (GLUCOTROL XL) 5 mg 24 hr tablet Take 1 tablet by mouth once daily. fluticasone (FLONASE) 50 mcg/actuation nasal spray Use 1 Coleman in each nostril once daily. (Patient taking differently: Use 1 Coleman in each nostril once daily. Takes daily as needed ) Lactobacillus acidophilus (PROBIOTIC ORAL) Take by mouth. MULTI-VITAMIN ORAL Take by mouth. COMPOUNDED PRESCRIPTION Powerstep full length original insert (M12.571) Traumatic arthritis of foot, right (primary encounter diagnosis) (Patient not taking: Reported on 09/12/2021 ) COMPOUNDED PRESCRIPTION New CPAP with supplies CPAP pressure 12 cm H2O. Diagnosis: EMY G47.33, Z99.89 Fax to [facility] omeprazole (PRILOSEC) 20 mg capsule Take 20 mg by mouth once daily. ACETAMINOPHEN (TYLENOL ORAL) Take 500 mg by mouth as needed. aspirin, enteric coated (ASPIRIN, ENTERIC COATED) 81 mg EC tablet Take 81 mg by mouth once daily. albuterol HFA 90 mcg/actuation inhaler Inhale 1-2 Puffs as instructed every 4 hours as needed (for wheezing and shortness of breath). No current facility-administered medications for this visit. Review of Systems Objective BP 142/84 Pulse 60 Wt 94.8 kg (209 lb) SpO2 95% BMI 41.93 kg/m Last 5 Encounter Wt Readings: Date: Wt: 10/22/2021 94.8 kg (209 lb) 10/22/2021 94.8 kg (209 lb) 09/12/2021 93.9 kg (207 lb) 08/27/2021 92.1 kg (203 lb) 07/09/2021 93.9 kg (207 lb) No waist measurement recorded Estimated body mass index is 41.93 kg/m as calculated from the following: Height as of an earlier encounter on 10/22/21: 150.4 cm (4' 11.2). Weight as of this encounter: 94.8 kg (209 lb). Last 5 Encounter BP Readings: Date: BP: 10/22/2021 142/84 09/12/2021 140/86 08/27/2021 144/78 07/09/2021 158/92 05/13/2021 164/88 Physical Exam Constitutional: Appearance: Normal appearance. She is obese. HENT: Head: Normocephalic. Comments: Tender right frontal and maxillary sinuses Eyes: General: No scleral icterus. Right eye: No discharge. Left eye: No discharge. Conjunctiva/sclera: Conjunctivae normal. Pupils: Pupils are equal, round, and reactive to light. Cardiovascular: Rate and Rhythm: Normal rate and regular rhythm. Heart sounds: Normal heart sounds. Pulmonary: Effort: Pulmonary effort is normal. Breath sounds: Normal breath sounds. Skin: General: Skin is warm and dry. Neurological: General: No focal deficit present. Mental Status: She is alert and oriented to person, place, and time. Psychiatric: Mood and Affect: Mood normal. Behavior: Behavior normal. Thought Content: Thought content normal. Judgment: Judgment normal. Component Latest Ref Rng & Units 07/03/2021 07/12/2021 10/18/2021 Protein, Total 6.3 - 8.0 g/dL 6.9 6.9 Albumin 3.9 - 4.9 g/dL 4.2 4.3 Calcium 8.5 - 10.2 mg/dL 9.5 9.5 Bilirubin, Total 0.2 - 1.3 mg/dL 0.3 0.4 Alkaline Phosphatase 34 - 123 U/L 58 69 AST 13 - 35 U/L 10 (L) 13 ALT 7 - 38 U/L 9 10 Glucose 74 - 99 mg/dL 128 (H) 113 (H) BUN 7 - 21 mg/dL 18 15 Creatinine 0.58 - 0.96 mg/dL 0.72 0.69 Sodium 136 - 144 mmol/L 140 142 Potassium 3.7 - 5.1 mmol/L 4.3 4.0 Chloride 97 - 105 mmol/L 106 (H) 105 CO2 22 - 30 mmol/L 25 24 Anion Gap 9 - 18 mmol/L 9 13 eGFR >=60 mL/min/1.73m 86 89 WBC 3.70 - 11.00 k/uL 7.42 6.83 RBC 3.90 - 5.20 m/uL 4.57 4.52 Hemoglobin 11.5 - 15.5 g/dL 13.2 13.1 Hematocrit 36.0 - 46.0 % 40.6 40.0 MCV 80.0 - 100.0 fL 88.8 88.5 MCH 26.0 - 34.0 pg 28.9 29.0 MCHC 30.5 - 36.0 g/dL 32.5 32.8 RDW-CV 11.5 - 15.0 % 13.9 13.6 Platelet Count 150 - 400 k/uL 320 304 MPV 9.0 - 12.7 fL 9.1 9.3 Absolute nRBC <0.01 k/uL <0.01 <0.01 Cholesterol, Total <200 mg/dL 217 (H) Triglyceride <150 mg/dL 114 HDL Cholesterol >39 mg/dL 39 (L) Non HDL Cholesterol <130 mg/dL 178 (H) Fasting Time hrs 12 VLDL Cholesterol <30 mg/dL 23 TC:HDL Ratio <5.10 5.56 (H) LDL Cholesterol <100 mg/dL 155 (H) LDL:HDL Ratio <2.54 3.97 (H) Creatinine, Ur Random (UCRR) 20.0 - 300.0 mg/dL 108.8 Albumin, Urine Random mg/L <12.0 Albumin/Creat Ratio <30 mg/g <11 Iron 41 - 186 ug/dL 87 TIBC 232 - 386 ug/dL 273 Transferrin Saturation 15 - 57 % 32 Hemoglobin A1C 4.3 - 5.6 % 6.9 (H) Estimated Average Glucose mg/dL 151 Magnesium 1.7 - 2.3 mg/dL 2.0 TSH 0.270 - 4.200 mIU/L 0.549 Free T4 0.9 - 1.7 ng/dL 1.1 Vitamin D 25 Hydroxy 31.0 - 80.0 ng/mL 22.9 (L) Ferritin 14.7 - 205.1 ng/mL 190.0 Culture 50,000-<100,000 CFU/ml Streptococcus anginosus Abnormal No susceptibility testing done. <10,000 CFU/ml Normal urogenital noah Resulting Agency: [facility] Specimen Collected: 10/18/21 1:07 PM Assessment and Plan Encounter Diagnosis ICD-10-CM 1. Acute recurrent frontal sinusitis J01.11 amoxicillin-clavulanic acid (AUGMENTIN) 875-125 mg per tablet and maxillary sinusitis 2. Urinary frequency R35.0 URINALYSIS, WITH MICROSCOPIC URINE CULTURE 3. Controlled type 2 diabetes mellitus without complication (HCC) E11.9 glipiZIDE (GLUCOTROL XL) 5 mg 24 hr tablet 4. Fatigue, unspecified type R53.83 COMP METABOLIC PANEL CBC HGB A1C VITAMIN D 25 HYDROXY TSH BLD T4 FREE/FREE THYROX T3 FREE BLD 5. Acute left-sided thoracic back pain M54.6 traMADol (ULTRAM) 50 mg tablet 6. Chronic pain of both shoulders M25.511 G89.29 M25.512 tramadol helps for severe pain flare ups 7. Vitamin D deficiency E55.9 VITAMIN D 25 HYDROXY 8. Type 2 diabetes mellitus with diabetic neuropathy, without long-term current use of insulin (HCC) E11.40 COMP METABOLIC PANEL HGB A1C 9. Essential hypertension I10 COMP METABOLIC PANEL CBC 10. Diuretic-induced hypokalemia E87.6 COMP METABOLIC PANEL T50.2X5A Above issues addressed with patient. Patient involved in shared decision making for management of medical issues. History and medications reviewed. Epic updated as needed Refills and/or prescriptions taken care of and meds adjusted as indicated after reviewed history, exam and labs. Health Maintenance reviewed. Updated record and/or ordered tests as recorded. Encouraged on efforts at healthy diet and regular exercise and adequate sleep. Further evaluation and treatment as indicated. Kristy Brower MD documented in this encounter [facility] 10-21-2021 Miscellaneous Notes There was no significant growth on the culture. The bacteria that grew is not typical of one to cause bladder infection. And less than 100,000 CFU/ml grew. Could be a contaminant. Could repeat urine studies if still growing this bacteria. If she has overt UTI.sx and not able to come in to drop off urine sample, could try Ceftin (she has allergies or intolerances to a lot of other antibiotic). Pt called in and reports the results of her urine culture came back and they are positive. Pt asking if the provider could look at them and send in an antibiotic for her. Please call and advise. documented in this encounter [facility] 09-12-2021 Miscellaneous Notes Faxed order for oximetry- nocturnal to [facility] per Shantal Conklin PA-C. Nirali Leon LPN documented in this encounter [facility] 09-12-2021 History of Present illness Narrative [facility], 09/12/2021: Name: Whitney Ruiz : 1945 The patient is here today with her son, who attends the entire visit, exam and discussion. HPI: Whitney Ruiz is a 76 yo female with pmh significant for diaphragmatic hernia, HTN, osteoporosis, sleep apnea on CPAP, chronic sinusitis, diverticulitis, IBS, GERD, Vit D deficiency, OA, CAD, occipital neuralgia, thoracic aortic aneurysm, DM, and ILD. Former smoker, quit 1972. 12 pack years. The patient is here for follow-up of ILD. Since the last Pulmonary Clinic visit 05/03/2021, the patient was admitted to secondary to heart cath from 08/20-08/22. Per patient, they said my heart was good. During her admission, a CT chest with PE protocol was done which revealed no evidence of PE and worsening of interstitial abnormality likely at least in part related to lower lung volumes. Today, patient is concerned with diagnosis from of possible IPF. Daily morning cough. Yellowish to green sputum, stable. No hemoptysis. Wheezing. No dyspnea at rest. Exertional dyspnea stable. Difficulty climbing the stairs. No issues with ADLs. Lower extremity edema. Consistently wearing CPAP at night. Patient states she is not waking feeling rested. Concerned she is dropping her oxygen levels. Reports Cardiology at provided her with a script for nocturnal oximetry, but she is unsure of how to get it to [facility]. DME: [facility]: Updated with patient today. [facility]: Updated with patient today. [facility]: Updated with patient today. IMMUNIZATIONS Prevnar - 05/27/2017 Pneumovax - 05/31/2019, 02/23/2009 Influenza - xx COVID-19 - 07/20/2021 ROS: See HPI. Otherwise negative. Allergies were reviewed and updated, and medications were reconciled with the patient. PHYSICAL EXAMINATION: BP 140/86 (BP Site: Right Arm, BP Position: Sitting, BP Cuff Size: Large Adult) Pulse 60 Resp 16 Ht 152.4 cm (5') Wt 93.9 kg (207 lb) SpO2 97% BMI 40.43 kg/m Gen: No acute distress. Cooperative with examination. ENT: Oral hygeine and dentition good. Pharynx clear. No halitosis. Resp: No stridor, accessory respiratory muscle use, supra-sternal or intercostal retractions. No wheezes. Bibasilar crackles. CV: Regular rythm. Heart tones normal. Radial pulses normal. Abd: Non distended. MSK: No kyphoscoliosis. Ext: Warm and well perfused. No clubbing, cyanosis, edema. Skin: No rash, ecchymoses. Neuro: Mental status normal. Affect normal. No tremor. DATA REVIEW: DATE: 07/30/2020 10/07/2019 02/07/16 09/07/13 FVC 2.08, 91% 2.08, 90% 2.25, 93% 2.35, 95% FEV1 1.84, 105% 1.80, 101% 1.92, 105% 2.00, 114% FEV1/FVC 0.89 0.87 0.85 0.85 DLCO xx 16.81, 92% xx 15.9, 70% CT chest with PE protocol, 08/21/2021 from OSH IMPRESSION: 1. No evidence of acute pulmonary embolism 2. Worsening interstitial abnormality likely at least in part related to lower lung volumes. HRCT pattern of pulmonary fibrosis. 3. Stable chronic findings. ASSESSMENT/PLAN: 1. ILD (interstitial lung disease) (HCC) - ICD9: 515, ICD10: J84.9 (primary diagnosis) CT chest from OSH with worsening ILD, however, I do not have the images to compare to our most recent CT chest in May 2019. Obtain current PFT including lung volumes and diffusion. -if stable, will obtain CT chest yearly. - OXIMETRY - NOCTURNAL - SPIROMETRY BASELINE ONLY - LUNG VOLUMES - LUNG DIFFUSION CAPACITY (DLCO) 2. Obstructive sleep apnea - ICD9: 327.23, ICD10: G47.33 Consistently compliant with CPAP. 3. Chronic rhinitis - ICD9: 472.0, ICD10: J31.0 Continue Flonase 4. Former smoker - ICD9: V15.82, ICD10: Z87.891 I addressed the questions of the patient and son, and they expressed understanding and acceptance of my answers. Shantal Conklin PA-C documented in this encounter [facility] 09-05-2021 Miscellaneous Notes Spoke to patient. Patient has order & confirmed patient will need to complere test through outside company. Will notify patient via [employer] to contact Philippe Loyola. Lis Camargo MA If patient has an order for overnight pulse ox test done, she should be able to give that to her DME supplier for the CPAP to get the test done. Dr. Atkinson, [employer] called and states she was with the pt. Pt had a cardiac cath was fine and pt is having symptoms of fatigue and tired and Dr. Atkinson states this could be due to sleep apnea. She states pt's C-pap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 unspecified type diabetes mellitus without mention of complication, not stated as uncontrolled Family history of colon cancer Family history of malignant neoplasm of gastrointestinal tract Special screening for malignant neoplasms, colon Breast screening, unspecified SOB (shortness of breath)- Primary Shortness of breath Urinary frequency- Primary Lower abdominal pain Abdominal pain, other specified site [facility] Diagnosis Moderate persistent asthma without complication (HHS-HCC)- Primary EMY on CPAP ILD (interstitial lung disease) (Multi) Postinflammatory pulmonary fibrosis Perennial allergic rhinitis with seasonal variation BMI 36.0-36.9,adult documented in this encounter [facility] Work Phone: Evaluation note* Diagnosis Syncope, unspecified syncope type- Primary Syncope, unspecified syncope type Pneumonitis Pneumonia, organism unspecified Diverticulitis Diverticulitis of colon (without mention of hemorrhage) Bradycardia Other specified cardiac dysrhythmias Coronary artery disease involving [place] coronary artery of [place] heart, unspecified whether angina present Pneumonia of both lower lobes due to infectious organism documented in this encounter [facility] Work Phone: Evaluation note* Diagnosis Routine medical exam- Primary Routine general medical examination at a health care facility Type II or unspecified type diabetes mellitus without mention of complication, not stated as uncontrolled Family history of colon cancer Family history of malignant neoplasm of gastrointestinal tract Special screening for malignant neoplasms, colon Breast screening, unspecified SOB (shortness of breath)- Primary Shortness of breath Thrush, oral- Primary Candidiasis of mouth Acute diverticulitis Diverticulitis of colon (without mention of hemorrhage) Bradycardia Other specified cardiac dysrhythmias Essential (primary) hypertension Unspecified essential hypertension PVC (premature ventricular contraction) Other premature beats Pulmonary fibrosis (HCC) Postinflammatory pulmonary fibrosis Syncope, unspecified syncope type Chronic rhinitis Post-nasal drip Postnasal drip Primary osteoarthritis of right knee Primary localized osteoarthrosis, lower leg documented in this encounter [facility] note* Diagnosis Bradycardia- Primary Other specified cardiac dysrhythmias Premature atrial contractions Supraventricular premature beats Shortness of breath documented in this encounter [facility] Work Phone: Evaluation note* Diagnosis Premature atrial contractions Supraventricular premature beats Bradycardia Other specified cardiac dysrhythmias Shortness of breath documented in this encounter [facility] Work Phone: Evaluation note* Diagnosis Premature atrial contractions Supraventricular premature beats Bradycardia Other specified cardiac dysrhythmias Shortness of breath documented in this encounter [facility] Work Phone: Evaluation note* Diagnosis Routine medical exam- Primary Routine general medical examination at a health care facility Type II or unspecified type diabetes mellitus without mention of complication, not stated as uncontrolled Family history of colon cancer Family history of malignant neoplasm of gastrointestinal tract Special screening for malignant neoplasms, colon Breast screening, unspecified SOB (shortness of breath)- Primary Shortness of breath Type 2 diabetes mellitus with diabetic neuropathy, without long-term current use of insulin (HCC)- Primary Essential (primary) hypertension Unspecified essential hypertension Esophagitis Esophagitis, unspecified Duodenitis Duodenitis without mention of hemorrhage Vitamin D deficiency Unspecified vitamin D deficiency Encounter for therapeutic drug monitoring Shortness of breath on exertion Shortness of breath Other fatigue Other constipation Gastroesophageal reflux disease with esophagitis and hemorrhage Acute right-sided thoracic back pain [facility] Diagnosis Routine medical exam- Primary Routine general medical examination at a health care facility Type II or unspecified type diabetes mellitus without mention of complication, not stated as uncontrolled Family history of colon cancer Family history of malignant neoplasm of gastrointestinal tract Special screening for malignant neoplasms, colon Breast screening, unspecified SOB (shortness of breath)- Primary Shortness of breath Right hip pain- Primary Pain in joint, pelvic region and thigh Right hip pain Pain in joint, pelvic region and thigh [facility] Diagnosis Routine medical exam- Primary Routine general medical examination at a health care facility Type II or unspecified type diabetes mellitus without mention of complication, not stated as uncontrolled Family history of colon cancer Family history of malignant neoplasm of gastrointestinal tract Special screening for malignant neoplasms, colon Breast screening, unspecified SOB (shortness of breath)- Primary Shortness of breath Right hip pain Pain in joint, pelvic region and thigh [facility] Diagnosis Routine medical exam- Primary Routine general medical examination at a health care facility Type II or unspecified type diabetes mellitus without mention of complication, not stated as uncontrolled Family history of colon cancer Family history of malignant neoplasm of gastrointestinal tract Special screening for malignant neoplasms, colon Breast screening, unspecified SOB (shortness of breath)- Primary Shortness of breath Vitamin D deficiency- Primary Unspecified vitamin D deficiency Hypercalcemia documented in this encounter [facility] note* Diagnosis Routine medical exam- Primary Routine general medical examination at a [facility] care facility Type II or unspecified type diabetes mellitus without mention of complication, not stated as uncontrolled Family history of colon cancer Family history of malignant neoplasm of gastrointestinal tract Special screening for malignant neoplasms, colon Breast screening, unspecified SOB (shortness of breath)- Primary Shortness of breath Sinobronchitis- Primary Unspecified sinusitis (chronic) Hypercalcemia Vitamin D deficiency Unspecified vitamin D deficiency Thyroid nodule Nontoxic uninodular goiter [facility]* Diagnosis Routine medical exam- Primary Routine general medical examination at a [facility] care facility Type II or unspecified type diabetes mellitus without mention of complication, not stated as uncontrolled Family history of colon cancer Family history of malignant neoplasm of gastrointestinal tract Special screening for malignant neoplasms, colon Breast screening, unspecified SOB (shortness of breath)- Primary Shortness of breath Thyroid nodule Nontoxic uninodular goiter [facility] Diagnosis Premature atrial contractions Supraventricular premature beats Bradycardia Other specified cardiac dysrhythmias Shortness of breath documented in this encounter [facility] Work Phone: Evaluation note* Diagnosis Routine medical exam- Primary Routine general medical examination at a health care facility Type II or unspecified type diabetes mellitus without mention of complication, not stated as uncontrolled Family history of colon cancer Family history of malignant neoplasm of gastrointestinal tract Special screening for malignant neoplasms, colon Breast screening, unspecified SOB (shortness of breath)- Primary Shortness of breath Right hip pain- Primary Pain in joint, pelvic region and thigh [facility] Diagnosis Routine medical exam- Primary Routine general medical examination at a health care facility Type II or unspecified type diabetes mellitus without mention of complication, not stated as uncontrolled Family history of colon cancer Family history of malignant neoplasm of gastrointestinal tract Special screening for malignant neoplasms, colon Breast screening, unspecified SOB (shortness of breath)- Primary Shortness of breath Acute UTI- Primary Urinary tract infection, site not specified Muscle strain Unspecified site of sprain and strain Muscle spasm of back Other symptoms referable to back [facility]* Diagnosis ILD (interstitial lung disease) (Multi) Postinflammatory pulmonary fibrosis documented in this encounter [facility] Work Phone: Evaluation note* Diagnosis Routine medical exam- Primary Routine general medical examination at a [facility] care facility Type II or unspecified type diabetes mellitus without mention of complication, not stated as uncontrolled Family history of colon cancer Family history of malignant neoplasm of gastrointestinal tract Special screening for malignant neoplasms, colon Breast screening, unspecified SOB (shortness of breath)- Primary Shortness of breath Porokeratosis- Primary Other specified congenital anomaly of skin Type 2 diabetes mellitus with diabetic neuropathy, without long-term current use of insulin (HCC) [facility]* Diagnosis Moderate persistent asthma without complication (HHS-HCC)- Primary ILD (interstitial lung disease) (Multi) Postinflammatory pulmonary fibrosis EMY on CPAP Perennial allergic rhinitis with seasonal variation BMI 35.0-35.9,adult documented in this encounter [facility] Work Phone: Evaluation note* Diagnosis Routine medical exam- Primary Routine general medical examination at a health care facility Type II or unspecified type diabetes mellitus without mention of complication, not stated as uncontrolled Family history of colon cancer Family history of malignant neoplasm of gastrointestinal tract Special screening for malignant neoplasms, colon Breast screening, unspecified SOB (shortness of breath)- Primary Shortness of breath Chronic right ear pain- Primary Otalgia, unspecified Episodic paroxysmal hemicrania, not intractable Episodic paroxysmal hemicrania Post-nasal drip Postnasal drip Obstructive sleep apnea Obstructive sleep apnea (adult) (pediatric) Fibromyalgia Mylagia and myositis, unspecified Urinary frequency Bad odor of urine Other nonspecific finding on examination of urine Vitamin D deficiency Unspecified vitamin D deficiency Type 2 diabetes mellitus with diabetic neuropathy, without long-term current use of insulin (HCC) Essential (primary) hypertension Unspecified essential hypertension Encounter for therapeutic drug monitoring Chronic right-sided thoracic back pain Primary osteoarthritis of both knees Primary localized osteoarthrosis, lower leg documented [facility] noteNo assessment [facility] Work [facility]* Diagnosis Coronary artery disease involving [place] coronary artery of [place] heart without angina pectoris- Primary Heart palpitations Palpitations Essential hypertension Unspecified essential hypertension documented in this encounter [facility] Work Phone: History of Present illness Narrative* Franck Lambert MD - 02/16/2023 1:30 PM EST Counseling: The patient was counseled regarding diagnostic results, instructions for management, risk factor reductions, prognosis, patient and family education, impressions, risks and benefits of treatment options and importance of compliance with treatment. Chief Complaint: The patient presents today for 6-month followup of palpitations, CAD and HTN. History Of Present Illness: Whitney Ruiz is a 77 year old female patient who presents today for 6-month followup of palpitations, CAD and HTN. Her PMH is significant for pulmonary fibrosis, EMY (CPAP) and mild CAD. Today, the patient reports feeling quite fatigued/tired. She indicates that she has been off the lisinopril,and her blood pressure has been elevated. She otherwise denies any CP, chest discomfort, SOB or palpitations. She reports BLE edema that occurs after prolonged sitting. Last Recorded Vitals: Vitals: 02/16/23 1222 BP: (!) 176/92 BP Location: Left arm Pulse: 59 Weight: 85.3 kg (188 lb) Height: 1.524 m (5') Past Surgical History: She has no past surgical history on file. Social History: She reports that she quit smoking about 51 years ago. Her smoking use included cigarettes. She has a 3.50 pack-year smoking history. She has never been exposed to tobacco smoke. She has never used smokeless tobacco. She reports that she does not use drugs. No history on file for alcohol use. Family History: No family history on file. Allergies: Amlodipine, Amoxicillin, Amoxicillin-pot clavulanate, Carvedilol, Ciprofloxacin, Clarithromycin, Clonidine, Codeine, Dicyclomine, Diltiazem hcl, Doxylamine, Duloxetine, Guaifenesin, Hydrocodone-acetaminophen, Iopromide, Levofloxacin, Losartan, Lovastatin, Meloxicam, Metronidazole, Morphine, Nifedipine, Rosuvastatin, Sulfabenzamide, Valsartan, Adhesive tape-silicones, and Sulfa (sulfonamide antibiotics) Outpatient Medications: Current Outpatient Medications Medication Instructions acetaminophen (TYLENOL) 1,000 mg, oral, Daily PRN albuterol 2.5 mg /3 mL (0.083 %) nebulizer solution 3 mL, inhalation, Every 6 hours PRN albuterol 90 mcg/actuation inhaler 1 puff, inhalation, Every 4 hours PRN aspirin 81 mg capsule 1 tablet, oral, Daily rddklx-voxzgcipfra-AeMq-NaHCO3 137 mcg-50 mcg- 0.9 % kit,spray suspension and spray Please use 1 spray in each nostril twice daily. budesonide-formoteroL (Symbicort) 160-4.5 mcg/actuation inhaler 2 puffs, inhalation, 2 times daily RT, Rinse mouth with water after use to reduce aftertaste and incidence of candidiasis. Do not swallow. ergocalciferol (VITAMIN D-2) 50,000 Units, oral, Weekly, 1 cap(s) orally once a week on tuesdays
furosemide (Lasix) 10 mg/mL solution oral metoprolol succinate XL (TOPROL-XL) 50 mg, oral, 2 times daily metoprolol tartrate (LOPRESSOR) 50 mg, oral, 2 times daily naphazoline-glycerin (Clear Eyes Redness Relief) 0.012-0.2 % drops 1 Application, Both Eyes, As needed potassium chloride CR 10 mEq ER tablet 10 mEq, oral, Daily PRN torsemide (DEMADEX) 10 mg, oral, Daily PRN trolamine salicylate (Aspercreme) 10 % cream 1 Application, Topical, As needed vitamin D3/vitamin K2, MK4, (K2 PLUS D3 ORAL) 1 tablet, oral, Daily Review of Systems Constitutional: Positive for malaise/fatigue. Cardiovascular: Positive for leg swelling. All other systems reviewed and are negative. Physical Exam: Constitutional: Appearance: Healthy appearance. Not in distress. Neck: Vascular: No JVR. JVD normal. Pulmonary: Effort: Pulmonary effort is normal. Breath sounds: Normal breath sounds. No wheezing. No rhonchi. No rales. Chest: Chest wall: Not tender to palpatation. Cardiovascular: PMI at left midclavicular line. Normal rate. Regular rhythm. Normal S1. Normal S2. Murmurs: There is no murmur. No gallop. No click. No rub. Pulses: Intact distal pulses. Edema: Peripheral edema absent. Abdominal: General: Bowel sounds are normal. Palpations: Abdomen is soft. Tenderness: There is no abdominal tenderness. Musculoskeletal: Normal range of motion. General: No tenderness. Skin: General: Skin is warm and dry. Neurological: General: No focal deficit present. Mental Status: Alert and oriented to person, place and time. Last Labs: CBC - Lab Results Component Value Date WBC 8.4 12/24/2022 HGB 12.6 12/24/2022 HCT 38.6 12/24/2022 MCV 90 12/24/2022 PLT 284 12/24/2022 CMP - Lab Results Component Value Date CALCIUM 9.3 12/24/2022 PHOS 3.4 08/21/2021 PROT 6.2 (L) 12/24/2022 ALBUMIN 4.0 12/24/2022 AST 10 12/24/2022 ALT 10 12/24/2022 ALKPHOS 57 12/24/2022 BILITOT 0.5 12/24/2022 LIPID PANEL - Lab Results Component Value Date CHOL 217 (H) 08/21/2021 TRIG 102 08/21/2021 HDL 41.5 08/21/2021 CHHDL 5.2 (A) 08/21/2021 LDLF 155 (H) 08/21/2021 VLDL 20 08/21/2021 RENAL FUNCTION PANEL - Lab Results Component Value Date GLUCOSE 132 (H) 12/24/2022 NA 140 12/24/2022 K 4.0 12/24/2022 CL 107 12/24/2022 CO2 27 12/24/2022 ANIONGAP 10 12/24/2022 BUN 16 12/24/2022 CREATININE 0.51 12/24/2022 CALCIUM 9.3 12/24/2022 PHOS 3.4 08/21/2021 ALBUMIN 4.0 12/24/2022 Lab Results Component Value Date BNP 266 (H) 12/24/2022 HGBA1C 6.4 (H) 10/15/2022 Last Cardiology Tests: 07/21/2022 - TTE 1. Left ventricular systolic function is normal with a 60-65% estimated ejection fraction. 2. Spectral Doppler shows an impaired relaxation pattern of left ventricular diastolic filling. 3. The left atrium is moderately dilated. 4. There is moderate mitral annular calcification. 07/03/2022 to 07/17/2022 - Holter Monitor 1. Predominant underlying rhythm was sinus rhythm; min HR 43 bpm, max HR 167 bpm, avg HR 56 bpm. 2. One run of ventricular tachycardia; 5 beats, max rate 132 bpm. 3. 45 supraventricular tachycardia runs. 08/21/2021 - Cardiac Catheterization (LH/RH) 1. Mild, non-obstructive coronary artery disease in right-dominant circulation. 2. Elevated right-sided filling pressure. 3. Normal left-sided filling pressure and pulmonary pressure. 4. No gradient on pull-back to suggest aortic stenosis. 5. Preserved CO/CI by assumed Lisset method. 08/21/2021 - CTA Chest for PE 1. No evidence of acute pulmonary embolism. 2. Worsening interstitial abnormality likely at least in part related to lower lung volumes. HRCT pattern of pulmonary fibrosis. 07/06/2020 - Cardiac Catheterization (LH) 1. Moderate non-obstructive coronary artery disease. 2. The right posterior descending artery showed moderate atherosclerotic disease. 3. Elevated LV filling pressures. 4. Left Ventricular end-diastolic pressure = 21. Lab review: I have personally reviewed the laboratory result(s). Assessment/Plan 1) Palpitations On ASA 81 mg daily, furosemide 10 mg daily, metoprolol tartrate 50 mg BID, torsemide 10 mg daily p.r.n. [facility] 08/21/2021 with mild non-obstructive CAD Has been trying to increase physical activity and has made changes to diet TTE 07/21/2022 with LVEF 60-65%. Holter 07/03/2022 to 07/17/2022 with 1 run of ventricular tachycardia, 45 runs of SVT, ventricular bigeminy F/U 6 months 2) Pulmonary Fibrosis Seen on CTA 08/21/[address] Tr[facility] at [facility] Compliant with CPAP Seen by pulmonology 01/27/2023 - recommended to start Symbicort and dymista, Check RAST and HP, repeat PFTs, continued CPAP therapy 3) HTN Elevated On metoprolol tartrate 50 mg BID Patient has discontinued lisinopril Restart lisinopril 10 mg daily Continue home monitoring of BP and contact our office if it remains elevated F/U 6 months 4) BLE Edema Occurs after prolonged sitting Compression stockings Scribe Attestation By signing my name below, I, Keyonna Bolton Scribvignesh attest that this documentation has been prepared under the direction and in the presence of Franck Lambert MD. [facility] Discharge instructions* Wound Care:If slight bleeding should occur at site, lie down and have someone apply firm pressure just above the puncture site for 5 minutes. If it continues or is profuse, call 911. Always notify your doctor if bleeding occurs. Keep site clean and dry. Let air dry or you may use a simple bandaid. Gently cleanse the puncture site in your groin with soap and water only. You may experience some tend erness, bruising or minimal inflammation. If you have any concerns, you may contact the Pulp Screen Operator orif any of these symptoms become excessive, contact your court bailiff or go to the emergency room. No tub baths, soaking, or swimming for one week. May shower the next day after your procedure. * Follow Up Appointment 1:Physician/ Dept/ Service: Your usual court bailiff - Dr. Lambert-NoelleitInstructions/Comments: Call [facility] Attachments The following attachments cannot be sent through Care Everywhere. * Osteoarthritis (Iranian) * Swollen Joints Discharge Instructions (Iranian) [facility] Discharge instructions* Attachments The following attachments cannot be sent through Care Everywhere. * Urinary Tract Infection, Adult ED (Iranian) * Diverticulitis Discharge Instructions (Iranian) [facility]: Reason for referral (narrative)* Diagnostic Procedure Only (Routine) - Closed Specialty Diagnoses / Procedures Referred By Contac t Referred To Contact US IMAGING Diagnoses Thyroid nodule Procedures US THYROID/PARATHYROID US SOFT TISSUE HEAD & NECK REAL TIME IMGE Kristy Prather MD [address] [place] [address] Us Imaging Referral ID Status Reason Start Date Expiration Date V isits Requested Visits Authorized [id number] Closed Auto-Generate d Referral 07/09/2021 08/08/2022 1 1 [facility] for referral (narrative)* Outpatient Procedure (Routine) - Authorized Specialty Diagnoses / Procedures Referred By Contac t Referred To Contact [facility] Diagnoses ILD (interstitial lung disease) (HCC) Procedures LUNG DIFFUSION CAPACITY (DLCO) DIFFUSING CAPACITY Shantal Conklin PA-C [address] [place] [id number] [facility] [address] [place] [address] Referral ID Status Reason Start Date Expiration Date Visits Requested Visits Authorized [id number] Authorized Auto-Generat ed Referral 09/12/2021 10/12/2022 1 1 * Outpatient Procedure (Routine) - Pending Review Specialty Diagnoses / Procedures Referred By Contac t Referred To Contact [facility] Diagnoses ILD (interstitial lung disease) (HCC) Procedures LUNG VOLUMES Shantal Conklin PA-C [address] [place] [id number] [facility] [address] [place] [address] Referral ID Status Reason Start Date Expiration Date Visits Requested Visits Authorized [id number] Pending Review Auto-Generat ed Referral 09/12/2021 10/12/2022 1 1 * Outpatient Procedure (Routine) - Authorized Specialty Diagnoses / Procedures Referred By Contac t Referred To Contact [facility] Diagnoses ILD (interstitial lung disease) (HCC) Procedures SPIROMETRY BASELINE ONLY SPMTRY W/VC EXPIRATORY ROCKY W/WO MXML VOL VNTJ Shantal Conklin PA-C [address] [address] [facility] [address] [place] [address] Referral ID Status Reason Start Date Expiration Date Visits Requested Visits Authorized [id number] Authorized Auto-Generat ed Referral 09/12/2021 10/12/2022 1 1 [facility] [facility] (narrative)* Diagnostic Procedure Only (Routine) - Closed Specialty Diagnoses / Procedures Referred By Contac t Referred To Contact US IMAGING Diagnoses Thyroid nodule Procedures US THYROID/PARATHYROID US SOFT TISSUE HEAD & [place] [address] [place] [address] Us Imaging Referral ID Status Reason Start Date Expiration Date V isits Requested Visits Authorized [id number] Closed Auto-Generate d Referral 07/09/2021 08/08/2022 1 1 [facility] for referral (narrative)* Name Reason for referral NA NA Dept[facility]at[facility] Outpatient Procedure (Routine) - Authorized Specialty Diagnoses / Procedures Referred By Contac t Referred To Contact [facility] Diagnoses ILD (interstitial lung disease) (HCC) Procedures LUNG DIFFUSION CAPACITY (DLCO) DIFFUSING CAPACITY Myriam Obrien MD [address] [facility] [place] [address] [address] Referral ID Status Reason Start Date Expiration Date Visits Requested Visits Authorized [id number] Authorized Auto-Generat ed Referral 04/18/2022 02/15/2023 1 1 * Outpatient Procedure (Routine) - Pending Review Specialty Diagnoses / Procedures Referred By Contac t Referred To Contact [facility] Diagnoses ILD (interstitial lung disease) (HCC) Procedures LUNG VOLUMES Myriam Obrien MD [address] [place] [address] [address] Referral ID Status Reason Start Date Expiration Date Visits Requested Visits Authorized [id number] Pending Review Auto-Generat ed Referral 04/18/2022 02/15/2023 1 1 * Outpatient Procedure (Routine) - Authorized Specialty Diagnoses / Procedures Referred By Contac t Referred To Contact [facility] Diagnoses ILD (interstitial lung disease) (HCC) Procedures SPIROMETRY - BASELINE AND POST DILATOR BRNCDILAT RSPSE SPMTRY PRE&POST-BRNCDILAT ADMN Myriam Obrien MD [address] [place] [address] [address] [place] [address] Referral ID Status Reason Start Date Expiration Date Visits Requested Visits Authorized [id number] Authorized Auto-Generat ed Referral 04/18/2022 02/15/2023 1 1 [facility] for referral (narrative)* Diagnostic Procedure Only (Urgent) - Closed Specialty Diagnoses / Procedures Referred By Contac t Referred To Contact XR IMAGING Diagnoses Pain Procedures XR FOOT GENERAL 3V AP/LAT/OBL RIGHT RADEX FOOT COMPLETE MINIMUM 3 VIEWS Amanda Jarrell APRN.CIRCUIT TESTER [address] [place] [address] Xr Imaging Referral ID Status Reason Start Date Expiration Date V isits Requested Visits Authorized [id number] Closed Auto-Generate d Referral 02/24/2022 03/26/2023 1 1 * Diagnostic Procedure Only (Urgent) - Closed Specialty Diagnoses / Procedures Referred By Contac t Referred To Contact XR IMAGING Diagnoses Pain Procedures XR ANKLE GENERAL 3V AP/LAT/OBL RIGHT RADEX ANKLE COMPLETE MINIMUM 3 VIEWS Amanda Jarrell APRN.CNP [address] [place] [address] Xr Imaging Referral ID Status Reason Start Date Expiration Date V isits Requested Visits Authorized [id number] Closed Auto-Generate d Referral 02/24/2022 03/26/2023 1 1 [facility] Outpatient Procedure (Routine) - Authorized Specialty Diagnoses / Procedures Referred By Contac t Referred To Contact [facility] Diagnoses IPF (idiopathic pulmonary fibrosis) (HCC) Procedures LUNG DIFFUSION CAPACITY (DLCO) DIFFUSING CAPACITY Myriam Obrien MD [address] [place] [address] Respiratory [address] [place] [address] Referral ID Status Reason Start Date Expiration Date Visits Requested Visits Authorized [id number] Authorized Auto-Generat ed Referral 10/28/2022 11/27/2023 1 1 * Outpatient Procedure (Routine) - Pending Review Specialty Diagnoses / Procedures Referred By Contac t Referred To Contact [facility] [place] Diagnoses IPF (idiopathic pulmonary fibrosis) (HCC) Procedures LUNG VOLUMES Myriam Obrien MD [address] [place] [address] Respiratory [address] [place] [address] Referral ID Status Reason Start Date Expiration Date Visits Requested Visits Authorized [id number] Pending Review Auto-Generat ed Referral 10/28/2022 11/27/2023 1 1 * Outpatient Procedure (Routine) - Authorized Specialty Diagnoses / Procedures Referred By Contac t Referred To Contact [facility] Diagnoses IPF (idiopathic pulmonary fibrosis) (HCC) Procedures SPIROMETRY WITH DILATOR IF OBSTRUCTED BRNCDILAT RSPSE SPMTRY PRE&POST-BRNCDILAT Myriam Arreola MD [address] [place] [address] Respiratory [address] [place] [address] Referral ID Status Reason Start Date Expiration Date Visits Requested Visits Authorized [id number] Authorized Auto-Generat ed Referral 10/28/2022 11/27/2023 1 1 [facility] for referral (narrative)* Diagnostic Procedure Only (Routine) - Closed Specialty Diagnoses / Procedures Referred By Contac t Referred To Contact XR IMAGING Diagnoses Chronic midline thoracic back pain Procedures XR THORACIC LIMITED 2V AP/LAT RADEX SPINE THORACIC 2 VIEWS Kojo Frederick APRN.CIRCUIT TESTER [address] [place] [address] Xr Imaging [facility] Referral ID Status Reason Start Date Expiration Date V isits Requested Visits Authorized [id number] Closed Auto-Generate d Referral 12/05/2022 01/04/2024 1 1 [facility] for referral (narrative)* Consultation (Routine) - Authorized Specialty Diagnoses / Procedures Referred By Contac t Referred To Contact Cardiology Diagnoses Shortness of breath on exertion Procedures Follow Up In Cardiology Franck Lambert MD [address] [place] [address] Referral ID Status Reason Start Date Expiration Date V isits Requested Visits Authorized [id number] Authorized 02/16/2023 02/16/2024 1 1 [facility] Work Phone: Reason for referral (narrative)* Consultation (Routine) - Authorized Specialty Diagnoses / Procedures Referred By Contac t Referred To Contact Dermatology Diagnoses Encounter for screening for malignant neoplasm of skin Procedures Follow Up In Dermatology - Established Patient Bernadine Mcclain APRN-JACKIE [address] [address] Referral ID Status Reason Start Date Expiration Date V isits Requested Visits Authorized [id number] Authorized 03/10/2023 03/09/2024 1 1 [facility] Work Phone: Reason for referral (narrative)* Diagnostic Procedure Only (Routine) - Closed Specialty Diagnoses / Procedures Referred By Contac t Referred To Contact XR IMAGING Diagnoses Chronic right shoulder pain Procedures XR SHOULDER GENERAL 3V OR MORE AP/TRUE AP/OTHER RIGHT RADEX SHOULDER COMPLETE MINIMUM 2 VIEWS Kojo Frederick APRN.CIRCUIT TESTER [facility] [place] [address] [place] [address] Referral ID Status Reason Start Date Expiration Date V isits Requested Visits Authorized [id number] Closed Auto-Generate d Referral 05/05/2023 06/03/2024 1 1 * Diagnostic Procedure Only (Routine) - Authorized Specialty Diagnoses / Procedures Referred By Contac t Referred To Contact US IMAGING Diagnoses Thyroid nodule Procedures US THYROID/PARATHYROID US SOFT TISSUE HEAD & NECK REAL TIME IMGE DOCM Kojo Frederick APRN.CIRCUIT TESTER [address] [phone] [place] [address] Referral ID Status Reason Start Date Expiration Date Visits Requested Visits Authorized [id number] Authorized Auto-Generat ed Referral 05/05/2023 06/03/2024 1 1 [facility] Consultation (Routine) - Authorized Specialty Diagnoses / Procedures Referred By Contac t Referred To Contact Cardiology Diagnoses Shortness of breath on exertion Essential hypertension Bilateral carotid bruits Procedures Follow Up In Cardiology Franck Lambert MD [address] [place] [address] Referral ID Status Reason Start Date Expiration Date V isits Requested Visits Authorized [id number] Authorized 08/20/2023 08/19/2024 1 1 * Imaging (Routine) - Pending Review Specialty Diagnoses / Procedures Referred By Contac t Referred To Contact Cardiology Diagnoses Shortness of breath on exertion Essential hypertension Bilateral carotid bruits Procedures Vascular US Carotid Artery Duplex Bilateral Franck Lambert MD [address] [place], [place] [id number] Referral ID Status Reason Start Date Expiration Date Visits Requested Visits Authorized [id number] Pending Review Perform Procedure 08/20/2023 08/19/2024 1 1 * CV Imaging (Routine) - Pending Review Specialty Diagnoses / Procedures Referred By Kvng t Referred To Contact Cardiology Diagnoses Shortness of breath on exertion Essential hypertension Bilateral carotid bruits Procedures Transthoracic echo (TTE) complete [place] ECHO TTHRC R-T 2D W/WOM-MODE COMPL SPEC&COLR D Franck Lambert MD [address] [place] [address] Referral ID Status Reason Start Date Expiration Date Visits Requested Visits Authorized [id number] Pending Review Perform Procedure 08/20/2023 08/19/2024 1 1 * Consultation (Routine) - Authorized Specialty Diagnoses / Procedures Referred By Kvng t Referred To Contact Sleep Medicine Diagnoses Shortness of breath on exertion Essential hypertension Bilateral carotid bruits Franck Lambert MD [address] [place] [address] Francisca Sweet MD [address] [facility], [address] [address] Referral ID Status Reason Start Date Expiration Date Visits Requested Visits Authorized [id number] Authorized Specialty Services Required 08/20/2023 08/19/2024 1 1 * Cardiovascular (Routine) - Authorized Specialty Diagnoses / Procedures Referred By Contac t Referred To Contact Diagnoses Shortness of breath on exertion Procedures ECG 12 lead (Clinic Performed) Franck Lambert MD [address] [phone] Referral ID Status Reason Start Date Expiration Date V isits Requested Visits Authorized [id number] Authorized 08/20/2023 08/19/2024 1 1 [facility] Work Phone: [employer] for referral (narrative)* Diagnostic Procedure Only (Routine) - Closed Specialty Diagnoses / Procedures Referred By Contac t Referred To Contact XR IMAGING Diagnoses Chronic right shoulder pain Procedures XR SHOULDER GENERAL 3V OR MORE AP/TRUE AP/OTHER RIGHT RADEX SHOULDER COMPLETE MINIMUM 2 VIEWS Kojo Frederick APRN.CIRCUIT TESTER [address] [place], [place] [id number] [place] [address] Referral ID Status Reason Start Date Expiration Date V isits Requested Visits Authorized [id number] Closed Auto-Generate d Referral 05/05/2023 06/03/2024 1 1 [facility] for referral (narrative)* Diagnostic Procedure Only (Routine) - Closed Specialty Diagnoses / Procedures Referred By Contac t Referred To Contact XR IMAGING Diagnoses Chronic midline thoracic back pain Procedures XR THORACIC LIMITED 2V AP/LAT RADEX SPINE THORACIC 2 VIEWS Kooj Frederick APRN.CNP [address] [place] [address] [place] [address] Referral ID Status Reason Start Date Expiration Date V isits Requested Visits Authorized [id number] Closed Auto-Generate d Referral 12/05/2022 01/04/2024 1 1 [facility] for referral (narrative)* Diagnostic Procedure Only (Urgent) - Closed Specialty Diagnoses / Procedures Referred By Contac t Referred To Contact XR IMAGING Diagnoses Right foot injury, initial encounter Procedures XR FOOT GENERAL 3V AP/LAT/OBL RIGHT RADEX FOOT COMPLETE MINIMUM 3 VIEWS Sofía Alvarado APRN.CIRCUIT TESTER [address] [place] [address] [place] [address] Referral ID Status Reason Start Date Expiration Date V isits Requested Visits Authorized [id number] Closed Auto-Generate d Referral 08/26/2022 09/25/2023 1 1 [facility] for referral (narrative)* Diagnostic Procedure Only (Urgent) - Closed Specialty Diagnoses / Procedures Referred By Contac t Referred To Contact XR IMAGING Diagnoses Pain Procedures XR FOOT GENERAL 3V AP/LAT/OBL RIGHT RADEX FOOT COMPLETE MINIMUM 3 VIEWS Amanda Jarrell APRN.CIRCUIT TESTER [address] [place] [address] [place] [address] Referral ID Status Reason Start Date Expiration Date V isits Requested Visits Authorized [id number] Closed Auto-Generate d Referral 02/24/2022 03/26/2023 1 1 * Diagnostic Procedure Only (Urgent) - Closed Specialty Diagnoses / Procedures Referred By Contac t Referred To Contact XR IMAGING Diagnoses Pain Procedures XR ANKLE GENERAL 3V AP/LAT/OBL RIGHT RADEX ANKLE COMPLETE MINIMUM 3 VIEWS Amanda Jarrell APRN.CIRCUIT TESTER [address] [place] [address] [place] [address] Referral ID Status Reason Start Date Expiration Date V isits Requested Visits Authorized [id number] Closed Auto-Generate d Referral 02/24/2022 03/26/2023 1 1 [facility] for referral (narrative)* Diagnostic Procedure Only (Urgent) - Closed Specialty Diagnoses / Procedures Referred By Contac t Referred To Contact XR IMAGING Diagnoses Acute left-sided thoracic back pain Procedures XR THORACIC GENERAL 3V AP/LAT/SWIMMERS RADEX SPINE THORACIC 3 VIEWS Anastasia Smith APRN.JACKIE [address] [place] [address] [place] [address] Referral ID Status Reason Start Date Expiration Date V isits Requested Visits Authorized [id number] Closed Auto-Generate d Referral 08/27/2021 09/26/2022 1 1 [facility] for referral (narrative)No reason for referral information [facility] Work Phone: [facility] for visit Narrative* Diagnostic Procedure Only (Routine) - Closed Specialty Diagnoses / Procedures Referred By Contac t Referred To Contact US IMAGING Diagnoses Thyroid nodule Procedures US THYROID/PARATHYROID US SOFT TISSUE HEAD & NECK REAL TIME IMGE Kristy Prather MD [address] [place] [address] Us Imaging Referral ID Status Reason Start Date Expiration Date V isits Requested Visits Authorized [id number] Closed Auto-Generate d Referral 07/09/2021 08/08/2022 1 1 [facility] for visit Narrative* Diagnostic Procedure Only (Routine) - Closed Specialty Diagnoses / Procedures Referred By Contac t Referred To Contact XR IMAGING Diagnoses Chronic right shoulder pain Procedures XR SHOULDER GENERAL 3V OR MORE AP/TRUE AP/OTHER RIGHT RADEX SHOULDER COMPLETE MINIMUM 2 VIEWS Kojo Frederick APRN.CIRCUIT TESTER [address] [place] [address] [place] [address] Referral ID Status Reason Start Date Expiration Date V isits Requested Visits Authorized [id number] Closed Auto-Generate d Referral 05/05/2023 06/03/2024 1 1 [facility] for visit Narrative* Diagnostic Procedure Only (Routine) - Closed Specialty Diagnoses / Procedures Referred By Contac t Referred To Contact XR IMAGING Diagnoses Chronic midline thoracic back pain Procedures XR THORACIC LIMITED 2V AP/LAT RADEX SPINE THORACIC 2 VIEWS Kojo Frederick DIRECTOR [employer].CIRCUIT TESTER [address] [place] [address] [place] [address] Referral ID Status Reason Start Date Expiration Date V isits Requested Visits Authorized [id number] Closed Auto-Generate d Referral 12/05/2022 01/04/2024 1 1 [facility] for visit Narrative* Diagnostic Procedure Only (Urgent) - Closed Specialty Diagnoses / Procedures Referred By Contac t Referred To Contact XR IMAGING Diagnoses Right foot injury, initial encounter Procedures XR FOOT GENERAL 3V AP/LAT/OBL RIGHT RADEX FOOT COMPLETE MINIMUM 3 VIEWS Sofía Alvarado, DIRECTOR [employer].CIRCUIT TESTER [address] [phone] [place] [address] Referral ID Status Reason Start Date Expiration Date V isits Requested Visits Authorized [id number] Closed Auto-Generate d Referral 08/26/2022 09/25/2023 1 1 [facility] for visit Narrative* Diagnostic Procedure Only (Urgent) - Closed Specialty Diagnoses / Procedures Referred By Contac t Referred To Contact XR IMAGING Diagnoses Pain Procedures XR FOOT GENERAL 3V AP/LAT/OBL RIGHT RADEX FOOT COMPLETE MINIMUM 3 VIEWS Amanda Jarrell, DIRECTOR [employer].CIRCUIT TESTER [address] [place] [address] [place] [address] Referral ID Status Reason Start Date Expiration Date V isits Requested Visits Authorized [id number] Closed Auto-Generate d Referral 02/24/2022 03/26/2023 1 1 [facility] for visit Narrative* Diagnostic Procedure Only (Urgent) - Closed Specialty Diagnoses / Procedures Referred By Contac t Referred To Contact XR IMAGING Diagnoses Acute left-sided thoracic back pain Procedures XR THORACIC GENERAL 3V AP/LAT/SWIMMERS RADEX SPINE THORACIC 3 VIEWS Anastasia Smith, DIRECTOR [employer].CIRCUIT TESTER [address] [place] [address] [place] [address] Referral ID Status Reason Start Date Expiration Date V isits Requested Visits Authorized [id number] Closed Auto-Generate d Referral 08/27/2021 09/26/2022 1 1 [facility] for visit Narrative* Imaging (Routine) - Authorized Specialty Diagnoses / Procedures Referred By Contac t Referred To Contact Radiology Diagnoses Moderate persistent asthma without complication (HHS-HCC) Procedures XR chest 2 views Johanna Patino MD [address] [place] [address] Phone: tel: fax: Referral ID Status Reason Start Date Expiration Date Visits Requested Visits Authorized [id number] Authorized Perform Procedure 10/12/2023 10/11/2024 1 1 [facility] Work Phone: reason for visit Narrative* Imaging (Routine) - Authorized Specialty Diagnoses / Procedures Referred By Contac t Referred To Contact Radiology Diagnoses Premature atrial contractions Bradycardia Shortness of breath Procedures CT chest high resolution Franck Lambert MD [address] [place] [address] Phone: tel: fax: Referral ID Status Reason Start Date Expiration Date Visits Requested Visits Authorized [id number] Authorized Perform Procedure 04/01/2024 04/01/2025 1 1 [facility] Work Phone: reason for visit Narrative* Diagnostic Procedure Only (Urgent) - Closed Specialty Diagnoses / Procedures Referred By Contac t Referred To Contact XR IMAGING Diagnoses Right hip pain Procedures XR HIP GENERAL 3V PELV/AP/LAT RIGHT RADEX HIP UNILATERAL WITH PELVIS 2-3 VIEWS Anastasia Smith M, DIRECTOR [employer].CIRCUIT TESTER [address] [place] [address] Phone: tel: fax: [place] [address] Referral ID Status Reason Start Date Expiration Date V isits Requested Visits Authorized [id number] Closed Auto-Generate d Referral 06/03/2024 07/03/2025 1 1 [facility] Summary Purpose Family History Relationship Condition Age at Onset Recorded Date/T [place] mother Malignant neoplasm Unknown sister Malignant neoplasm Unknown father Diabetes mellitus Unknown Hypertension Unknown Advance Directives Documents on File Type Date Recorded 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 Advance Directive(s) 10/27/2019 1:33 PM Advance Directive(s) 01/11/2019 12:51 PM Advance Directive(s) 02/29/2016 1:49 PM Advance Directive(s) 02/28/2014 3:49 PM Documents on File Type Date Recorded 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 Advance Directive(s) 10/27/2019 1:33 PM Advance Directive(s) 01/11/2019 12:51 PM Advance Directive(s) 02/29/2016 1:49 PM Advance Directive(s) 02/28/2014 3:49 PM Documents on File Type Date Recorded 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 Advance Directive(s) 02/28/2014 3:49 PM Documents on File Type Date Recorded 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 Advance Directive(s) 02/28/2014 3:49 PM Documents on File Type Date Recorded 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 Healthcare Power of Atty 08/20/2021 Documents on File Type Date Recorded 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 Healthcare Power of Atty 08/20/2021 Date Activated Date Inactivated Comments 03/15/2024 5:16 PM Question Answer Comments Plan of Care: Code Status Discussion Completed Decision Maker: Patient Date Activated Date Inactivated Comments 03/15/2024 5:16 PM Question Answer Comments Plan of Care: Code Status Discussion Completed Decision Maker: Patient Documents on File Type Date Recorded 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 Power of Concrete Float Maker 08/20/2021 Healthcare Power of Atty 08/20/2021 Reason for Referral Specialty Diagnoses / Procedures Referred By Contac t Referred To Contact Ent - Otolaryngology Diagnoses Recurrent sinusitis Procedures CONSULT TO ENT OFFICE/OUTPATIENT [facility] MDM 60-74 MINUTES Shantal Conklin, PAFantaC [address] [place] [address] Kirit Gaspar MD [address] [place] [address] Referral ID Status Reason Start Date Expiration Date Visits Requested Visits Authorized [id number] Pending Review PCP Requested Referral 04/21/2022 04/21/2023 1 1 Specialty Diagnoses / Procedures Referred By Contac t Referred To Contact Diagnoses Moderate persistent asthma without complication ILD (interstitial lung disease) ([facility]/HCC) Procedures Pulmonary function testing Johanna Patino MD [address] [place] [address] Referral ID Status Reason Start Date Expiration Date V isits Requested Visits Authorized [id number] Pending Review 01/09/2023 07/08/2023 1 1 Specialty Diagnoses / Procedures Referred By Contac t Referred To Contact CT IMAGING Diagnoses Interstitial pulmonary disease (HCC) Procedures CT CHEST WO IVCON DIAGNOSTIC COMPUTED TOMOGRAPHY THORAX W/O CNTRST Myriam bOrien MD [address] [place] [address] [place] [address] Referral ID Status Reason Start Date Expiration Date V isits Requested Visits Authorized [id number] Closed Auto-Generate d Referral 10/20/2022 09/18/2023 1 1 Specialty Diagnoses / Procedures Referred By Contac t Referred To Contact Diagnoses Chronic pain of left knee Chronic right shoulder pain Kojo Frederick APRN.CIRCUIT TESTER [address] [place] [address] Referral ID Status Reason Start Date Expiration Date Visits Re quested Visits Authorized [id number] Closed 1 1 Specialty Diagnoses / Procedures Referred By Contac t Referred To Contact Orthopedics Diagnoses Chronic pain of left knee Chronic right shoulder pain Procedures CONSULT TO ORTHOPAEDICS Kojo Frederick APRN.[facility] [address] [place] [address] [address] Referral ID Status Reason Start Date Expiration Date Visits Requested Visits Authorized [id number] Ref Not Required PCP Requested Referral 07/31/2023 10/29/2023 3 3 Specialty Diagnoses / Procedures Referred By Contac t Referred To Contact Cardiology Diagnoses Shortness of breath on exertion Essential hypertension Bilateral carotid bruits Procedures Vascular US Carotid Artery Duplex Bilateral Franck Lambert MD [address] [place] [address] Referral ID Status Reason Start Date Expiration Date Visits Requested Visits Authorized [id number] Authorized Perform Procedure 08/20/2023 08/19/2024 1 1 Specialty Diagnoses / Procedures Referred By Contac t Referred To Contact Orthopedics Diagnoses Arthralgia of right acromioclavicular joint Chronic right shoulder pain Procedures CONSULT TO ORTHOPAEDICS OFFICE/OUTPATIENT [facility] 60 MINUTES Kristy Brower MD [address] [place] [address] Liliana Fox PA-C [address] [place] [address] Referral ID Status Reason Start Date Expiration Date Visits Requested Visits Authorized [id number] Authorized PCP Requested Referral 11/11/2023 11/10/2024 1 1 Specialty Diagnoses / Procedures Referred By Contac t Referred To Contact Cardiology Diagnoses Shortness of breath on exertion Essential hypertension Bilateral carotid bruits Procedures Transthoracic echo (TTE) complete [place] ECHO TTHRC R-T 2D W/WOM-MODE COMPL SPEC&COLR D Franck Lambert MD [address] [place] [address] Referral ID Status Reason Start Date Expiration Date Visits Requested Visits Authorized [id number] Authorized Perform Procedure 08/20/2023 08/19/2024 1 1 Specialty Diagnoses / Procedures Referred By Contac t Referred To Contact Radiology Diagnoses Moderate persistent asthma without complication (HHS-HCC) Procedures XR chest 2 views Johanna Patino MD [address] [place] [address] Referral ID Status Reason Start Date Expiration Date Visits Requested Visits Authorized [id number] Authorized Perform Procedure 10/12/2023 10/11/2024 1 1 Chief Complaint WHITNEY RUIZ is being seen for a 1 month follow-up of palpitations and s/p Holter monitor and echocardiogram.WHITNEY RUIZ is being seen for a 1 month follow-up of palpitations and s/p Holter monitor and echocardiogram. Chief Complaint and Reason for Visit Chief Complaint Admit Date NEW PT. Old/New PT. incont. November 07, 2024 2:00pm Additional Source Comments INFORMATION SOURCE (unrecogn ized section and content) DATE CREATED AUTHOR 09/18/2017 [facility] [facility] DATE CREATED AUTHOR AUTHOR'S ORGANIZ ATION 10/02/2017 [facility] DATE CREATED AUTHOR AUTHOR'S ORGANIZ ATION 04/23/2018 [facility] DATE CREATED AUTHOR AUTHOR'S ORGANIZ ATION 01/12/2019 [facility] DATE CREATED AUTHOR AUTHOR'S ORGANIZ ATION 02/09/2019 [facility] DATE CREATED AUTHOR AUTHOR'S ORGANIZ ATION 10/21/2019 [facility] DATE CREATED AUTHOR AUTHOR'S ORGANIZ ATION 07/24/2022 [facility] DATE CREATED AUTHOR AUTHOR'S ORGANIZ ATION 08/08/2022 [facility] DATE CREATED AUTHOR AUTHOR'S ORGANIZ ATION 01/01/2023 [facility] DATE CREATED AUTHOR AUTHOR'S ORGANIZ ATION 01/17/2023 [facility] DATE CREATED AUTHOR AUTHOR'S ORGANIZ ATION 08/22/2023 [facility] DATE CREATED AUTHOR AUTHOR'S ORGANIZ ATION 04/09/2024 [facility] DATE CREATED AUTHOR AUTHOR'S ORGANIZ ATION 04/20/2024 [facility] DATE CREATED AUTHOR AUTHOR'S ORGANIZ ATION 08/07/2024 [facility] DATE CREATED AUTHOR AUTHOR'S ORGANIZ ATION 09/04/[address] [facility] DATE CREATED AUTHOR AUTHOR'S ORGANIZ ATION 09/18/2024 [facility] DATE CREATED AUTHOR AUTHOR'S ORGANIZ ATION 12/05/2024 [facility] <item><item><item><item><item><item> Privacy Markings (unrecogniz ed section and content) Section Author: Cassie Hayward PROHIBITION ON REDISCLOSURE OF CONFIDENTIAL INFORMATION This notice accompanies a disclosure of information concerning a client made to you with the consent of such client. Section Author: Cassie Hayward PROHIBITION ON REDISCLOSURE OF CONFIDENTIAL INFORMATION This notice accompanies a disclosure of information concerning a client made to you with the consent of such client. Section Author: Cassie Hayward PROHIBITION ON REDISCLOSURE OF CONFIDENTIAL INFORMATION This notice accompanies a disclosure of information concerning a client made to you with the consent of such client. Section Author: Cassie Hayward PROHIBITION ON REDISCLOSURE OF CONFIDENTIAL INFORMATION This notice accompanies a disclosure of information concerning a client made to you with the consent of such client. Section Author: Cassie Hayward PROHIBITION ON REDISCLOSURE OF CONFIDENTIAL INFORMATION This notice accompanies a disclosure of information concerning a client made to you with the consent of such client. Section Author: Cassie Hayward PROHIBITION ON REDISCLOSURE OF CONFIDENTIAL INFORMATION This notice accompanies a disclosure of information concerning a client made to you with the consent of such client. Source Comments (unrecognize d section and content) In the event this informatio n is protected by the Federal Confidentiality of Alcohol and Drug Abuse Patient Records regulations: The Federal rules restrict any use of the information to criminally investigate or prosecute any alcohol or drug abuse patient.[facility] the event this information is protected by the Federal Confidentiality of Alcohol and Drug Abuse Patient Records regulations: The Federal rules restrict any use of the information to criminally investigate or prosecute any alcohol or drug abuse patient.[facility] the event this information is protected by the Federal Confidentiality of Alcohol and Drug Abuse Patient Records regulations: The Federal rules restrict any use of the information to criminally investigate or prosecute any alcohol or drug abuse patient.[facility] the event this information is protected by the Federal Confidentiality of Alcohol and Drug Abuse Patient Records regulations: The Federal rules restrict any use of the information to criminally investigate or prosecute any alcohol or drug abuse patient.[facility] the event this information is protected by the Federal Confidentiality of Alcohol and Drug Abuse Patient Records regulations: The Federal rules restrict any use of the information to criminally investigate or prosecute any alcohol or drug abuse patient.[facility] the event this information is protected by the Federal Confidentiality of Alcohol and Drug Abuse Patient Records regulations: The Federal rules restrict any use of the information to criminally investigate or prosecute any alcohol or drug abuse patient.[facility] the event this information is protected by the Federal Confidentiality of Alcohol and Drug Abuse Patient Records regulations: The Federal rules restrict any use of the information to criminally investigate or prosecute any alcohol or drug abuse patient.[facility] the event this information is protected by the Federal Confidentiality of Alcohol and Drug Abuse Patient Records regulations: The Federal rules restrict any use of the information to criminally investigate or prosecute any alcohol or drug abuse patient.[facility] the event this information is protected by the Federal Confidentiality of Alcohol and Drug Abuse Patient Records regulations: The Federal rules restrict any use of the information to criminally investigate or prosecute any alcohol or drug abuse patient.[facility] the event this information is protected by the Federal Confidentiality of Alcohol and Drug Abuse Patient Records regulations: The Federal rules restrict any use of the information to criminally investigate or prosecute any alcohol or drug abuse patient.[facility] the event this information is protected by the Federal Confidentiality of Alcohol and Drug Abuse Patient Records regulations: The Federal rules restrict any use of the information to criminally investigate or prosecute any alcohol or drug abuse patient.[facility] the event this information is protected by the Federal Confidentiality of Alcohol and Drug Abuse Patient Records regulations: The Federal rules restrict any use of the information to criminally investigate or prosecute any alcohol or drug abuse patient.[facility] the event this information is protected by the Federal Confidentiality of Alcohol and Drug Abuse Patient Records regulations: The Federal rules restrict any use of the information to criminally investigate or prosecute any alcohol or drug abuse patient.[facility] the event this information is protected by the Federal Confidentiality of Alcohol and Drug Abuse Patient Records regulations: The Federal rules restrict any use of the information to criminally investigate or prosecute any alcohol or drug abuse patient.[facility] the event this information is protected by the Federal Confidentiality of Alcohol and Drug Abuse Patient Records regulations: The Federal rules restrict any use of the information to criminally investigate or prosecute any alcohol or drug abuse patient.[facility] the event this information is protected by the Federal Confidentiality of Alcohol and Drug Abuse Patient Records regulations: The Federal rules restrict any use of the information to criminally investigate or prosecute any alcohol or drug abuse patient.[facility]igh[facility] the event this information is protected by the Federal Confidentiality of Alcohol and Drug Abuse Patient Records regulations: The Federal rules restrict any use of the information to criminally investigate or prosecute any alcohol or drug abuse patient.[facility]ighIn the event this information is protected by the Federal Confidentiality of Alcohol and Drug Abuse Patient Records regulations: The Federal rules restrict any use of the information to criminally investigate or prosecute any alcohol or drug abuse patient.[facility]ighIn the event this information is protected by the Federal Confidentiality of Alcohol and Drug Abuse Patient Records regulations: The Federal rules restrict any use of the information to criminally investigate or prosecute any alcohol or drug abuse patient.[facility]ighIn the event this information is protected by the Federal Confidentiality of Alcohol and Drug Abuse Patient Records regulations: The Federal rules restrict any use of the information to criminally investigate or prosecute any alcohol or drug abuse patient.[facility]igh[facility] the event this information is protected by the Federal Confidentiality of Alcohol and Drug Abuse Patient Records regulations: The Federal rules restrict any use of the information to criminally investigate or prosecute any alcohol or drug abuse patient.[facility] the event this information is protected by the Federal Confidentiality of Alcohol and Drug Abuse Patient Records regulations: The Federal rules restrict any use of the information to criminally investigate or prosecute any alcohol or drug abuse patient.[facility]igh[facility] the event this information is protected by the Federal Confidentiality of Alcohol and Drug Abuse Patient Records regulations: The Federal rules restrict any use of the information to criminally investigate or prosecute any alcohol or drug abuse patient.[facility]igh[facility] the event this information is protected by the Federal Confidentiality of Alcohol and Drug Abuse Patient Records regulations: The Federal rules restrict any use of the information to criminally investigate or prosecute any alcohol or drug abuse patient.[facility]igh[facility] the event this information is protected by the Federal Confidentiality of Alcohol and Drug Abuse Patient Records regulations: The Federal rules restrict any use of the information to criminally investigate or prosecute any alcohol or drug abuse patient.[facility]ighIn the event this information is protected by the Federal Confidentiality of Alcohol and Drug Abuse Patient Records regulations: The Federal rules restrict any use of the information to criminally investigate or prosecute any alcohol or drug abuse patient.[facility]ighIn the event this information is protected by the Federal Confidentiality of Alcohol and Drug Abuse Patient Records regulations: The Federal rules restrict any use of the information to criminally investigate or prosecute any alcohol or drug abuse patient.[facility]ighIn the event this information is protected by the Federal Confidentiality of Alcohol and Drug Abuse Patient Records regulations: The Federal rules restrict any use of the information to criminally investigate or prosecute any alcohol or drug abuse patient.[facility]ighIn the event this information is protected by the Federal Confidentiality of Alcohol and Drug Abuse Patient Records regulations: The Federal rules restrict any use of the information to criminally investigate or prosecute any alcohol or drug abuse patient.[facility]ighIn the event this information is protected by the Federal Confidentiality of Alcohol and Drug Abuse Patient Records regulations: The Federal rules restrict any use of the information to criminally investigate or prosecute any alcohol or drug abuse patient.[facility]ighIn the event this information is protected by the Federal Confidentiality of Alcohol and Drug Abuse Patient Records regulations: The Federal rules restrict any use of the information to criminally investigate or prosecute any alcohol or drug abuse patient.[facility]ighIn the event this information is protected by the Federal Confidentiality of Alcohol and Drug Abuse Patient Records regulations: The Federal rules restrict any use of the information to criminally investigate or prosecute any alcohol or drug abuse patient.[facility]ighIn the event this information is protected by the Federal Confidentiality of Alcohol and Drug Abuse Patient Records regulations: The Federal rules restrict any use of the information to criminally investigate or prosecute any alcohol or drug abuse patient.[facility]ighIn the event this information is protected by the Federal Confidentiality of Alcohol and Drug Abuse Patient Records regulations: The Federal rules restrict any use of the information to criminally investigate or prosecute any alcohol or drug abuse patient.[facility]ighIn the event this information is protected by the Federal Confidentiality of Alcohol and Drug Abuse Patient Records regulations: The Federal rules restrict any use of the information to criminally investigate or prosecute any alcohol or drug abuse patient.[facility]ighIn the event this information is protected by the Federal Confidentiality of Alcohol and Drug Abuse Patient Records regulations: The Federal rules restrict any use of the information to criminally investigate or prosecute any alcohol or drug abuse patient.[facility]ighIn the event this information is protected by the Federal Confidentiality of Alcohol and Drug Abuse Patient Records regulations: The Federal rules restrict any use of the information to criminally investigate or prosecute any alcohol or drug abuse patient.[facility]ighIn the event this information is protected by the Federal Confidentiality of Alcohol and Drug Abuse Patient Records regulations: The Federal rules restrict any use of the information to criminally investigate or prosecute any alcohol or drug abuse patient.[facility]ighIn the event this information is protected by the Federal Confidentiality of Alcohol and Drug Abuse Patient Records regulations: The Federal rules restrict any use of the information to criminally investigate or prosecute any alcohol or drug abuse patient.[facility]ighIn the event this information is protected by the Federal Confidentiality of Alcohol and Drug Abuse Patient Records regulations: The Federal rules restrict any use of the information to criminally investigate or prosecute any alcohol or drug abuse patient.[facility]ighIn the event this information is protected by the Federal Confidentiality of Alcohol and Drug Abuse Patient Records regulations: The Federal rules restrict any use of the information to criminally investigate or prosecute any alcohol or drug abuse patient.[facility]ighIn the event this information is protected by the Federal Confidentiality of Alcohol and Drug Abuse Patient Records regulations: The Federal rules restrict any use of the information to criminally investigate or prosecute any alcohol or drug abuse patient.[facility]ighIn the event this information is protected by the Federal Confidentiality of Alcohol and Drug Abuse Patient Records regulations: The Federal rules restrict any use of the information to criminally investigate or prosecute any alcohol or drug abuse patient.[facility]ighIn the event this information is protected by the Federal Confidentiality of Alcohol and Drug Abuse Patient Records regulations: The Federal rules restrict any use of the information to criminally investigate or prosecute any alcohol or drug abuse patient.[facility]ighIn the event this information is protected by the Federal Confidentiality of Alcohol and Drug Abuse Patient Records regulations: The Federal rules restrict any use of the information to criminally investigate or prosecute any alcohol or drug abuse patient.[facility]ighIn the event this information is protected by the Federal Confidentiality of Alcohol and Drug Abuse Patient Records regulations: The Federal rules restrict any use of the information to criminally investigate or prosecute any alcohol or drug abuse patient.[facility]ighIn the event this information is protected by the Federal Confidentiality of Alcohol and Drug Abuse Patient Records regulations: The Federal rules restrict any use of the information to criminally investigate or prosecute any alcohol or drug abuse patient.[facility]ighIn the event this information is protected by the Federal Confidentiality of Alcohol and Drug Abuse Patient Records regulations: The Federal rules restrict any use of the information to criminally investigate or prosecute any alcohol or drug abuse patient.[facility]ighIn the event this information is protected by the Federal Confidentiality of Alcohol and Drug Abuse Patient Records regulations: The Federal rules restrict any use of the information to criminally investigate or prosecute any alcohol or drug abuse patient.[facility]ighIn the event this information is protected by the Federal Confidentiality of Alcohol and Drug Abuse Patient Records regulations: The Federal rules restrict any use of the information to criminally investigate or prosecute any alcohol or drug abuse patient.[facility]ighIn the event this information is protected by the Federal Confidentiality of Alcohol and Drug Abuse Patient Records regulations: The Federal rules restrict any use of the information to criminally investigate or prosecute any alcohol or drug abuse patient.[facility]ighIn the event this information is protected by the Federal Confidentiality of Alcohol and Drug Abuse Patient Records regulations: The Federal rules restrict any use of the information to criminally investigate or prosecute any alcohol or drug abuse patient.[facility]ighIn the event this information is protected by the Federal Confidentiality of Alcohol and Drug Abuse Patient Records regulations: The Federal rules restrict any use of the information to criminally investigate or prosecute any alcohol or drug abuse patient.[facility]ighIn the event this information is protected by the Federal Confidentiality of Alcohol and Drug Abuse Patient Records regulations: The Federal rules restrict any use of the information to criminally investigate or prosecute any alcohol or drug abuse patient.[facility]ighIn the event this information is protected by the Federal Confidentiality of Alcohol and Drug Abuse Patient Records regulations: The Federal rules restrict any use of the information to criminally investigate or prosecute any alcohol or drug abuse patient.[facility]ighIn the event this information is protected by the Federal Confidentiality of Alcohol and Drug Abuse Patient Records regulations: The Federal rules restrict any use of the information to criminally investigate or prosecute any alcohol or drug abuse patient.[facility]ighIn the event this information is protected by the Federal Confidentiality of Alcohol and Drug Abuse Patient Records regulations: The Federal rules restrict any use of the information to criminally investigate or prosecute any alcohol or drug abuse patient.[facility]ighIn the event this information is protected by the Federal Confidentiality of Alcohol and Drug Abuse Patient Records regulations: The Federal rules restrict any use of the information to criminally investigate or prosecute any alcohol or drug abuse patient.[facility]ighIn the event this information is protected by the Federal Confidentiality of Alcohol and Drug Abuse Patient Records regulations: The Federal rules restrict any use of the information to criminally investigate or prosecute any alcohol or drug abuse patient.[facility]ighIn the event this information is protected by the Federal Confidentiality of Alcohol and Drug Abuse Patient Records regulations: The Federal rules restrict any use of the information to criminally investigate or prosecute any alcohol or drug abuse patient.[facility]ighIn the event this information is protected by the Federal Confidentiality of Alcohol and Drug Abuse Patient Records regulations: The Federal rules restrict any use of the information to criminally investigate or prosecute any alcohol or drug abuse patient.[facility]ighIn the event this information is protected by the Federal Confidentiality of Alcohol and Drug Abuse Patient Records regulations: The Federal rules restrict any use of the information to criminally investigate or prosecute any alcohol or drug abuse patient.[facility]ighIn the event this information is protected by the Federal Confidentiality of Alcohol and Drug Abuse Patient Records regulations: The Federal rules restrict any use of the information to criminally investigate or prosecute any alcohol or drug abuse patient.[facility]ighIn the event this information is protected by the Federal Confidentiality of Alcohol and Drug Abuse Patient Records regulations: The Federal rules restrict any use of the information to criminally investigate or prosecute any alcohol or drug abuse patient.[facility]ighIn the event this information is protected by the Federal Confidentiality of Alcohol and Drug Abuse Patient Records regulations: The Federal rules restrict any use of the information to criminally investigate or prosecute any alcohol or drug abuse patient.[facility]ighIn the event this information is protected by the Federal Confidentiality of Alcohol and Drug Abuse Patient Records regulations: The Federal rules restrict any use of the information to criminally investigate or prosecute any alcohol or drug abuse patient.[facility]ighIn the event this information is protected by the Federal Confidentiality of Alcohol and Drug Abuse Patient Records regulations: The Federal rules restrict any use of the information to criminally investigate or prosecute any alcohol or drug abuse patient.[facility]ighIn the event this information is protected by the Federal Confidentiality of Alcohol and Drug Abuse Patient Records regulations: The Federal rules restrict any use of the information to criminally investigate or prosecute any alcohol or drug abuse patient.[facility]ighIn the event this information is protected by the Federal Confidentiality of Alcohol and Drug Abuse Patient Records regulations: The Federal rules restrict any use of the information to criminally investigate or prosecute any alcohol or drug abuse patient.[facility]ighIn the event this information is protected by the Federal Confidentiality of Alcohol and Drug Abuse Patient Records regulations: The Federal rules restrict any use of the information to criminally investigate or prosecute any alcohol or drug abuse patient.[facility]ighIn the event this information is protected by the Federal Confidentiality of Alcohol and Drug Abuse Patient Records regulations: The Federal rules restrict any use of the information to criminally investigate or prosecute any alcohol or drug abuse patient.[facility]ighIn the event this information is protected by the Federal Confidentiality of Alcohol and Drug Abuse Patient Records regulations: The Federal rules restrict any use of the information to criminally investigate or prosecute any alcohol or drug abuse patient.[facility]ighIn the event this information is protected by the Federal Confidentiality of Alcohol and Drug Abuse Patient Records regulations: The Federal rules restrict any use of the information to criminally investigate or prosecute any alcohol or drug abuse patient.[facility]ighIn the event this information is protected by the Federal Confidentiality of Alcohol and Drug Abuse Patient Records regulations: The Federal rules restrict any use of the information to criminally investigate or prosecute any alcohol or drug abuse patient.[facility]ighIn the event this information is protected by the Federal Confidentiality of Alcohol and Drug Abuse Patient Records regulations: The Federal rules restrict any use of the information to criminally investigate or prosecute any alcohol or drug abuse patient.[facility]ighIn the event this information is protected by the Federal Confidentiality of Alcohol and Drug Abuse Patient Records regulations: The Federal rules restrict any use of the information to criminally investigate or prosecute any alcohol or drug abuse patient.[facility]ighIn the event this information is protected by the Federal Confidentiality of Alcohol and Drug Abuse Patient Records regulations: The Federal rules restrict any use of the information to criminally investigate or prosecute any alcohol or drug abuse patient.[facility]ighIn the event this information is protected by the Federal Confidentiality of Alcohol and Drug Abuse Patient Records regulations: The Federal rules restrict any use of the information to criminally investigate or prosecute any alcohol or drug abuse patient.[facility]ighIn the event this information is protected by the Federal Confidentiality of Alcohol and Drug Abuse Patient Records regulations: The Federal rules restrict any use of the information to criminally investigate or prosecute any alcohol or drug abuse patient.[facility]ighIn the event this information is protected by the Federal Confidentiality of Alcohol and Drug Abuse Patient Records regulations: The Federal rules restrict any use of the information to criminally investigate or prosecute any alcohol or drug abuse patient.[facility]ighIn the event this information is protected by the Federal Confidentiality of Alcohol and Drug Abuse Patient Records regulations: The Federal rules restrict any use of the information to criminally investigate or prosecute any alcohol or drug abuse patient.[facility]ighIn the event this information is protected by the Federal Confidentiality of Alcohol and Drug Abuse Patient Records regulations: The Federal rules restrict any use of the information to criminally investigate or prosecute any alcohol or drug abuse patient.[facility]ighIn the event this information is protected by the Federal Confidentiality of Alcohol and Drug Abuse Patient Records regulations: The Federal rules restrict any use of the information to criminally investigate or prosecute any alcohol or drug abuse patient.[facility]ighIn the event this information is protected by the Federal Confidentiality of Alcohol and Drug Abuse Patient Records regulations: The Federal rules restrict any use of the information to criminally investigate or prosecute any alcohol or drug abuse patient.[facility]ighIn the event this information is protected by the Federal Confidentiality of Alcohol and Drug Abuse Patient Records regulations: The Federal rules restrict any use of the information to criminally investigate or prosecute any alcohol or drug abuse patient.[facility]ighIn the event this information is protected by the Federal Confidentiality of Alcohol and Drug Abuse Patient Records regulations: The Federal rules restrict any use of the information to criminally investigate or prosecute any alcohol or drug abuse patient.[facility]ighIn the event this information is protected by the Federal Confidentiality of Alcohol and Drug Abuse Patient Records regulations: The Federal rules restrict any use of the information to criminally investigate or prosecute any alcohol or drug abuse patient.[facility]ighIn the event this information is protected by the Federal Confidentiality of Alcohol and Drug Abuse Patient Records regulations: The Federal rules restrict any use of the information to criminally investigate or prosecute any alcohol or drug abuse patient.[facility]ighIn the event this information is protected by the Federal Confidentiality of Alcohol and Drug Abuse Patient Records regulations: The Federal rules restrict any use of the information to criminally investigate or prosecute any alcohol or drug abuse patient.[facility]ighIn the event this information is protected by the Federal Confidentiality of Alcohol and Drug Abuse Patient Records regulations: The Federal rules restrict any use of the information to criminally investigate or prosecute any alcohol or drug abuse patient.[facility]ighIn the event this information is protected by the Federal Confidentiality of Alcohol and Drug Abuse Patient Records regulations: The Federal rules restrict any use of the information to criminally investigate or prosecute any alcohol or drug abuse patient.[facility]ighIn the event this information is protected by the Federal Confidentiality of Alcohol and Drug Abuse Patient Records regulations: The Federal rules restrict any use of the information to criminally investigate or prosecute any alcohol or drug abuse patient.[facility] Reason for Visit (unrecogniz ed section and content) Reason Comments Follow-up 3mo f/u Specialty Diagnoses / Procedures Referred By Contac t Referred To Contact Cardiology Diagnoses Premature atrial contractions Bradycardia Shortness of breath Procedures Follow Up In Cardiology Franck Lambert MD [address] [place] [address] Phone: tel: fax: Referral ID Status Reason Start Date Expiration Date V isits Requested Visits Authorized [id number] Authorized 05/05/2024 05/05/2025 1 1 Reason Comments CPAP repair Reason Comments Patient Update 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 Reason Comments Orders Reason Comments Follow Up Reason Comments Follow Up Reason Comments Spirometry Specialty Diagnoses / Procedures Referred By Contac t Referred To Contact [facility] Diagnoses ILD (interstitial lung disease) (HCC) Procedures LUNG DIFFUSION CAPACITY (DLCO) DIFFUSING CAPACITY Shantal Conklin PA-C [address] [address] [facility] [place] [address] [place] [address] Referral ID Status Reason Start Date Expiration Date V isits Requested Visits Authorized [id number] Closed Auto-Generate d Referral 09/12/2021 10/12/2022 1 1 Specialty Diagnoses / Procedures Referred By Contac t Referred To Contact [facility] Diagnoses ILD (interstitial lung disease) (HCC) Procedures LUNG VOLUMES PLETHYSMOGRAPHY LUNG VOLUMES W/WO AIRWAY RESIST Shantal Conklin PA-C [address] [address] [facility] [place] [address] [place], [place] [id number] Referral ID Status Reason Start Date Expiration Date V isits Requested Visits Authorized [id number] Closed Auto-Generate d Referral 10/22/2021 03/29/2022 1 1 Reason Comments Results Medication Request Reason Comments Sinus Problem drainage, nasal sore ness, right ear tenderness Thyroid Nodule ultrasound 06/2021 Reason Comments Follow Up Interstitial lung di sease Reason Comments Follow Up Reason Comments Shortness of Breath Reason Comments ED visit update Reason Comments Medication Question regarding the use of her inhaler tonight Reason Comments Recheck sinus drng-yellowish ,right ear pain,coughing ,fatigue,fevers Reason Comments Follow Up Pulmonary fibrosis Reason Comments Covid Positive Reason Comments F/U 3 Month ER F/U [facility] ER for br onchitis continue complaints of pain in chest/throat area Reason Comments Foot Trauma R foot injury, vlad ed over rug x last night, foot painful x this AM Reason Comments Results Reason Comments Lab Orders Specialty Diagnoses / Procedures Referred By Contac t Referred To Contact [facility] [place] Diagnoses ILD (interstitial lung disease) ([facility]) Procedures LUNG DIFFUSION CAPACITY (DLCO) DIFFUSING CAPACITY Myriam Obrien MD [address] [place] [address] [address] Referral ID Status Reason Start Date Expiration Date V isits Requested Visits Authorized [id number] Closed Auto-Generate d Referral 04/18/2022 02/15/2023 1 1 Specialty Diagnoses / Procedures Referred By Contac t Referred To Contact [facility] [place] Diagnoses ILD (interstitial lung disease) ([facility]) Procedures SPIROMETRY - BASELINE AND POST DILATOR BRNCDILAT RSPSE SPMTRY PRE&POST-BRNCDILAT ADMMyriam Goode MD [address] [place] [address] [address] Referral ID Status Reason Start Date Expiration Date V isits Requested Visits Authorized [id number] Closed Auto-Generate d Referral 04/18/2022 02/15/2023 1 1 Specialty Diagnoses / Procedures Referred By Contac t Referred To Contact [facility] Diagnoses ILD (interstitial lung disease) (HCC) Procedures LUNG VOLUMES PLETHYSMOGRAPHY LUNG VOLUMES W/WO AIRWAY RESIST Myriam Obrien MD [address] [place] [address] [facility] [address] [address] [place] [address] Referral ID Status Reason Start Date Expiration Date V isits Requested Visits Authorized [id number] Closed Auto-Generate d Referral 04/07/2022 03/29/2023 1 1 Reason Comments Established Patient 3 month follow up [place] Recheck Reason Comments Hospital F/U Reason Comments F/U 3 Month Reason Comments disk request Reason Comments Patient Question Reason Comments Established Patient 3 month follow up Reason Comments Sore Throat Left ear pain, drain age x 1 day Reason Comments UTI with abdominal pain in lower abdomenHome test for UTI showed positive UTI Back Pain and shoulders Reason Comments New Patient Sinusitis Specialty Diagnoses / Procedures Referred By Contac t Referred To Contact Ent - Otolaryngology Diagnoses Recurrent sinusitis Procedures CONSULT TO ENT OFFICE/OUTPATIENT NEW HIGH MDM 60-74 MINUTES Shantal Conklin PA-C [address] [place] [address] Kirit Gaspar MD [address] [place] [address] Referral ID Status Reason Start Date Expiration Date Visits Requested Visits Authorized [id number] Pending Review PCP Requested Referral 04/21/2022 04/21/2023 1 1 Reason Comments Pulmonary Fibrosis Patient here for new patient visit. She is here for pulmonary fibrosis. She states her breathing is okay. She admits to shortness of breath when she climbs stairs. Patient admits to a productive cough in the morning with yellow mucous. Patient denies any oxygen at home. Patient admits to a CPAP she wears every night from [employer]. Patient stopped smoking 51 years ago. Patient smoked about 1/2PPD for 7 years. Patient was exposed to second hand smoke. No animals at home. Patient lives [place] 2 farms. Specialty Diagnoses / Procedures Referred By Contac t Referred To Contact Diagnoses Moderate persistent asthma without complication ILD (interstitial lung disease) (CMS/HCC) Procedures Pulmonary function testing Johanna Patino MD [address] [place] [address] Referral ID Status Reason Start Date Expiration Date V isits Requested Visits Authorized [id number] Pending Review 01/09/2023 07/08/2023 [address] Specialty Diagnoses / Procedures [facility] To Contact [facility] Diagnoses Interstitial pulmonary disease (HCC) Procedures CT CHEST WO IVCON DIAGNOSTIC COMPUTED TOMOGRAPHY THORAX W/O CNTCALVINT Myriam Obrien MD [address] [place] [address] [place] [address] Referral ID Status Reason Start Date Expiration Date V isits Requested Visits Authorized [id number] Closed Auto-Generate d Referral 10/20/2022 09/18/2023 1 1 Reason Comments Follow-up 6 MONTH Reason Comments Skin Check Patient presents to office today for FBSE. Denies pain, itching, bleeding. No further complaints. Reason Comments Pulmonary Fibrosis Patient is here for follow up visit. Patient states her breathing is good. Patient has productive cough in morning. Patient uses inhaler daily. Patient has cpap using nightly. Patient had PFT done and waiting on the results. Reason Comments F/U 3 Month Reason Comments Radiology US Specialty Diagnoses / Procedures [facility] Ref[facility] To Contact [facility] Diagnoses Thyroid nodule Procedures US THYROID/PARATHYROID US SOFT TISSUE HEAD & NECK REAL TIME IMGE DOCKojo Lassiter APRN.CIRCUIT TESTER [address] [place] [address] [place] [address] Referral ID Status Reason Start Date Expiration Date V isits Requested Visits Authorized [id number] Closed Auto-Generate d Referral 05/05/2023 06/03/2024 1 1 Reason Comments Knee Pain Pt to ED after ángela ing down off of a step and pt felt something pull in her left knee earlier today. Pt has pain to anterior/lateral knee. Pt normally uses cane to walk. Pt having pain with ambulation. MSP intact. Reason Comments ER F/U [facility] [place] for le ft knee injury after stepping down off a step Pain (Shoulder Pain) started about 4 day s ago with no injury noted.Took percocet Incontinence (Urge Incontinence) of urin e Constipation Fatigue question if due to l ow potassium Reason Onset Date Comments Refill Request 08/11/2023 Reason Comments Follow-up Specialty Diagnoses / Procedures Referred By Rosalbaac t Referred To Contact Cardiology Diagnoses Shortness of breath on exertion Procedures Follow Up In Cardiology Franck Lambert MD [address] [place] [address] Referral ID Status Reason Start Date Expiration Date V isits Requested Visits Authorized [id number] Authorized 02/16/2023 02/16/2024 1 1 Reason Onset Date Comments Population Health Navigation Outreach 09/08/2023 Haslet AWV/HCC and care gaps Specialty Diagnoses / Procedures Referred By Kvng t Referred To Contact Cardiology Diagnoses Shortness of breath on exertion Essential hypertension Bilateral carotid bruits Procedures Vascular US Carotid Artery Duplex Bilateral Franck Lambert MD [address] [place] [address] Referral ID Status Reason Start Date Expiration Date Visits Requested Visits Authorized [id number] Authorized Perform Procedure 08/20/2023 08/19/2024 1 1 Reason Comments Sore Throat X 3 days Reason Onset Date Comments Refill Request 10/27/2023 Reason Comments Medicare Wellness Exam Reason Comments handicap placard Reason Comments Sinus Problem Reason Onset Date Comments Refill Request 12/24/2023 Reason Comments Pain across mid back and into right shoulderfatigue Reason Comments F/U 3 Month Reason Comments Nausea Amb to ER from home with c/o 7 days of nausea and abdominal pain--states her stool today has mucous and slight amount of blood-- Reason Comments ER F/U Reason Onset Date Comments ACM ROSY RN 01/15/2024 ER outreach f ollow up Reason Comments Sore Throat cough moist producti ve with yellow green sputum,congestion Reason Onset Date Comments Refill Request 02/15/2024 Opened In Error 02/15/2024 Specialty Diagnoses / Procedures Referred By Kvng t Referred To Contact Cardiology Diagnoses Shortness of breath on exertion Essential hypertension Bilateral carotid bruits Procedures Transthoracic echo (TTE) complete [place] ECHO TTHRC R-T 2D W/WOM-MODE COMPL SPEC&COLR D Franck Lambert MD [address] [place] [address] Referral ID Status Reason Start Date Expiration Date Visits Requested Visits Authorized [id number] Authorized Perform Procedure 08/20/2023 08/19/2024 1 1 Reason Comments Asthma Patient is here for a follow up visit. Patient says her breathing has been pretty good. Patient admits an occasional cough in the mornings due to her sinus drainage. Patient is using rescue inhaler once a week. Patient is not using nebulizer. Patients PCP wanted her to get another sleep study due to her having issues with her breathing at nighttime even though she is already on cpap. Patient is not a smoker. Patient has no other concerns for today. Reason Comments Same Day Appointment possible UTI, bladd er pressure/spasms, urinary frequency, back pain, odor Reason Comments Idiopathic Pulmonary Fibrosis Tired, ach ing, drainage every morning and uses albuterol inhaler and then feels better. ESPINOSA with steps. Wears cpap nightly. Reason Comments Syncope Pt felt normal this morning but then she started to feel sweaty and generally unwell. She called for her son who caught her as she was passing out and assisted her to the floor. Pt was incontinent of stool per EMS. Pt states she was in and out a couple times before fully recovering. Specialty Diagnoses / Procedures Referred By Kvng lew Referred To Contact Diagnoses Bradycardia Diverticulitis Pneumonitis Syncope, unspecified syncope type Procedures Elizabeth Lane MD [facility] [place] [address] Phone: tel: fax: [facility] [address] [place] [address] Phone: tel: Referral ID Status Reason Start Date Expiration Date Visits Re quested Visits Authorized [id number] 1 1 Reason Comments Patient Update Reason Comments hospital f/up Diverticulitis and p neumonia Reason Comments Follow-up 6 month, syncope- re cently hospitalized, meds have changed Hospital Follow-up Specialty Diagnoses / Procedures Referred By Kvng lew Referred To Contact Diagnoses Premature atrial contractions Procedures ECG 12 Lead Franck Lambert MD [address] [place] [address] Phone: tel: fax: Referral ID Status Reason Start Date Expiration Date V isits Requested Visits Authorized [id number] Authorized 04/01/2024 04/01/2025 1 1 Reason Comments Follow-up Referral ID Status Reason Start Date Expiration Date V isits Requested Visits Authorized [id number] Authorized 04/01/2024 04/01/2025 1 1 Reason Comments F/U 3 Month discuss path report of EGD done on 05/19/24would like labs to check vitamin levels. States has not been taking potassium since starting verapamil Back Pain mid back question if from [place] Having also low back pain that radiates down into both legs derm issues has noticed visible vein in bilateral feet that she had not noticed before. Ear Problem right ear ache denie s any trouble hearing out of ear Reason Onset Date Comments Refill Request 05/23/2024 Reason Comments Right Hip Pain Reason Comments Pain RT hip x 7 days Reason Comments Right ear pain, sinus drainage, sore thr oat Reason Comments Ear Problem right with a sore th roat x 3 dayssinus drainage which is clearslight cough in the morning Specialty Diagnoses / Procedures Referred By Contac t Referred To Contact [facility] IMAG[facility] Diagnoses Thyroid nodule Procedures US THYROID/PARATHYROID US SOFT TISSUE HEAD & NECK REAL TIME IMGE DOCM Kojo Frederick APRN.CIRCUIT TESTER [address] [place] [address] Phone: tel: fax: [place] [id number] Referral ID Status Reason Start Date Expiration Date V isits Requested Visits Authorized [id number] Closed Auto-Generate d Referral 07/06/2024 08/05/2025 1 1 Reason Comments Back Pain states going on for years but worse for about the last month Reason Comments Pulmonary Fibrosis Specialty Diagnoses / Procedures Referred By Contac t Referred To Contact Pulmonary Disease / Pulmonology Diagnoses ILD (interstitial lung disease) ([facility]) Johanna Patino MD [address] [place] [address] Phone: tel: fax: Flores Alonzo MD [address] [place], [facility] [address] [place] [id number] Phone: tel: fax: Referral ID Status Reason Start Date Expiration Date Visits Requested Visits Authorized [id number] Authorized Specialty Services Required 04/22/2024 04/22/2025 1 1 Reason Comments New Callous Reason Comments ild Patient is here for follow up visit. Patient states her breathing has gotten worse she has drainage and states it hurts in her back. Patient states she has morning productive cough. Care Teams (unrecognized sec tion and content) Fleet Manager Relationship Specialty Start Date End Date Kristy Brower MD [address] [place] [address] PCP - General 04/18/09 Fleet Manager Relationship Specialty Start Date End Date Kristy Brower MD [address] [place] [address] PCP - General 04/18/09 Fleet Manager Relationship Specialty Start Date End Date Kristy Brower MD [address] [place] [address] PCP - General 04/18/09 Fleet Manager Relationship Specialty Start Date End Date Kristy Brower MD [address] [place] [address] PCP - General 04/18/09 Fleet Manager Relationship Specialty Start Date End Date Kristy Brower MD [address] [place] [address] PCP - General 04/18/09 Fleet Manager Relationship Specialty Start Date End Date Kristy Brower MD [address] [place] [address] PCP - General 04/18/09 Fleet Manager Relationship Specialty Start Date End Date Kristy Brower MD [address] [place] [address] PCP - General 04/18/09 Fleet Manager Relationship Specialty Start Date End Date Kristy Brower MD [address] [place] [address], [place] [address] PCP - General 04/18/09 Fleet Manager Relationship Specialty Start Date End Date Kristy Brower MD [address] [place] [address], [place] [address] PCP - General 04/18/09 Fleet Manager Relationship Specialty Start Date End Date Kristy Brower MD [address] [place] [address], [place] [address] PCP - General 04/18/09 Fleet Manager Relationship Specialty Start Date End Date Kristy Brower MD [address] [place] [address], [place] [address] PCP - General 04/18/09 Fleet Manager Relationship Specialty Start Date End Date Kristy Brower MD [address] [place] [address], [place] [address] PCP - General 04/18/09 Fleet Manager Relationship Specialty Start Date End Date Kristy Brower MD [address] [place] [address], [place] [address] PCP - General 04/18/09 Fleet Manager Relationship Specialty Start Date End Date Kristy Brower MD [address] [place] [address], [place] [address] PCP - General 04/18/09 Fleet Manager Relationship Specialty Start Date End Date Kristy Brower MD [address] [place] [address], [place] [address] PCP - General 04/18/09 Fleet Manager Relationship Specialty Start Date End Date Kristy Brower MD [address] [place] [address], [place] [address] PCP - General 04/18/09 Fleet Manager Relationship Specialty Start Date End Date Kristy Brower MD [facility] [place] [address] PCP - General 04/18/09 Fleet Manager Relationship Specialty Start Date End Date Kristy Brower MD [address] [place] [address], [place] [address] PCP - General 04/18/09 Fleet Manager Relationship Specialty Start Date End Date Kristy Brower MD [address] [place] [address], [place] [address] PCP - General 04/18/09 Fleet Manager Relationship Specialty Start Date End Date Kristy Brower MD [address] [place] [address], [place] [address] PCP - General 04/18/09 Fleet Manager Relationship Specialty Start Date End Date Kristy Brower MD [address] [place] [address], [place] [address] PCP - General 04/18/09 Fleet Manager Relationship Specialty Start Date End Date Kristy Brower MD [address] [place] [address], [place] [address] PCP - General 04/18/09 Fleet Manager Relationship Specialty Start Date End Date Kristy Brower MD [address] [place] [address], [place] [address] PCP - General 04/18/09 Fleet Manager Relationship Specialty Start Date End Date Kristy Brower MD [address] [place] [address], [place] [address] PCP - General 04/18/09 Fleet Manager Relationship Specialty Start Date End Date Kristy Brower MD [address] [place] [address] PCP - General 04/18/09 Fleet Manager Relationship Specialty Start Date End Date Kristy Brower MD [address] [place] [address] PCP - General 04/18/09 Fleet Manager Relationship Specialty Start Date End Date Kristy Brower MD [address] [place] [address] PCP - General 04/18/09 Fleet Manager Relationship Specialty Start Date End Date Kristy Brower MD [address] [place] [address] PCP - General 04/18/09 Fleet Manager Relationship Specialty Start Date End Date Kristy Brower MD [address] [place] [address] PCP - General 04/18/09 Fleet Manager Relationship Specialty Start Date End Date Kristy Brower MD [address] [place] [address] PCP - General 04/18/09 Fleet Manager Relationship Specialty Start Date End Date Kristy Brower MD [address] [place] [address] PCP - General Internal Medicine 01/09/23 Fleet Manager Relationship Specialty Start Date End Date Kristy Brower MD [address] [place] [address] PCP - General Internal Medicine 01/09/23 Fleet Manager Relationship Specialty Start Date End Date Kristy Brower MD [address] [place] [address] PCP - General 04/18/09 Fleet Manager Relationship Specialty Start Date End Date Kristy Brower MD [address] [place] [address] PCP - General Internal Medicine 01/09/23 Fleet Manager Relationship Specialty Start Date End Date Kristy Brower MD [address] [place] [address] PCP - General 04/18/09 Fleet Manager Relationship Specialty Start Date End Date Kristy Brower MD [address] [place] [address] PCP - General Internal Medicine 01/09/23 Fleet Manager Relationship Specialty Start Date End Date Kristy Brower MD [address] [place] [address] PCP - General Internal Medicine 01/09/23 Fleet Manager Relationship Specialty Start Date End Date Kristy Brower MD [address] [place] [address] PCP - General 04/18/09 Fleet Manager Relationship Specialty Start Date End Date Kristy Brower MD [address] [place] [address] PCP - General Internal Medicine 01/09/23 Fleet Manager Relationship Specialty Start Date End Date Kristy Brower MD [address] [place] [address] PCP - General 04/18/09 Fleet Manager Relationship Specialty Start Date End Date Kristy Brower MD [address] [place] [address] PCP - General 04/18/09 Fleet Manager Relationship Specialty Start Date End Date Kristy Brower MD [address] [place] [address] PCP - General Internal Medicine 01/09/23 Fleet Manager Relationship Specialty Start Date End Date Kristy Brower MD [address] [place] [address] PCP - General 04/18/09 Fleet Manager Relationship Specialty Start Date End Date Kristy Brower MD [address] [place] [address] PCP - General Internal Medicine 01/09/23 Fleet Manager Relationship Specialty Start Date End Date Kristy Brower MD [address] [place] [address] PCP - General 04/18/09 Fleet Manager Relationship Specialty Start Date End Date Kristy Brower MD [address] [place] [address] PCP - General 04/18/09 Fleet Manager Relationship Specialty Start Date End Date Kristy Brower MD [address] [place] [address] PCP - General 04/18/09 Fleet Manager Relationship Specialty Start Date End Date Kristy Brower MD [address] [place] [address] PCP - General 04/18/09 Fleet Manager Relationship Specialty Start Date End Date Kristy Brower MD [address] [place] [address] PCP - General 04/18/09 Fleet Manager Relationship Specialty Start Date End Date Kristy Brower MD [address] [place] [address] PCP - General 04/18/09 Fleet Manager Relationship Specialty Start Date End Date Kristy Brower MD [address] [place] [address] PCP - General 04/18/09 Fleet Manager Relationship Specialty Start Date End Date Kristy Brower MD [address] [place] [address] PCP - General 04/18/09 Fleet Manager Relationship Specialty Start Date End Date Kristy Brower MD [address] [place] [address] PCP - General 04/18/09 Fleet Manager Relationship Specialty Start Date End Date Kristy Brower MD [address] [place] [address] PCP - General 04/18/09 Fleet Manager Relationship Specialty Start Date End Date Kristy Brower MD [address] [place] [address] PCP - General 04/18/09 Fleet Manager Relationship Specialty Start Date End Date Kristy Brower MD [address] [place] [address] PCP - General 04/18/09 Fleet Manager Relationship Specialty Start Date End Date Kristy Brower MD [address] [place] [address] PCP - General 04/18/09 Fleet Manager Relationship Specialty Start Date End Date Kristy Brower MD [address] [place] [address] PCP - General 04/18/09 Fleet Manager Relationship Specialty Start Date End Date Kristy Brower MD [address] [place] [address] PCP - General Internal Medicine 01/09/23 Fleet Manager Relationship Specialty Start Date End Date Kristy Brower MD [address] [place] [address] PCP - General 04/18/09 Fleet Manager Relationship Specialty Start Date End Date Kristy Brower MD [address] [place] [address] PCP - General 04/18/09 Virginie Trammell, DIRECTOR GLOBAL SALES.WEED SCIENCE RESEARCH TECHNICIAN [address] [place] [address] Retail Aide Internal Medicine 03/07/24 Kojo Frederick DIRECTOR GLOBAL SALES.CIRCUIT TESTER [address] [facility] [place] [address] Retail Aide Internal Medicine 03/07/24 Fleet Manager Relationship Specialty Start Date End Date Kristy Brower MD [address] [place] [address] PCP - General Internal Medicine 01/09/23 Fleet Manager Relationship Specialty Start Date End Date Kristy Brower MD [address] [place] [address] PCP - General Internal Medicine 01/09/23 Fleet Manager Relationship Specialty Start Date End Date Kristy Brower MD [address] [place] [address] PCP - General Internal Medicine 01/09/23 Fleet Manager Relationship Specialty Start Date End Date Kristy Brower MD [address] [place] [address] PCP - General 04/18/09 Virginie Trammell DIRECTOR GLOBAL SALES.WEED SCIENCE RESEARCH TECHNICIAN [address] [place] [address] Retail Aide Internal Medicine 03/07/24 Kojo Frederick APRN.CIRCUIT TESTER [address] [place] [address] Retail Aide Internal Medicine 03/07/24 Fleet Manager Relationship Specialty Start Date End Date Kristy Brower MD [address] [place] [address] PCP - General 04/18/09 Virginie Trammell APRN.WEED SCIENCE RESEARCH TECHNICIAN [address] [place] [address] Retail Aide Internal Medicine 03/07/24 Kojo Frederick APRN.CIRCUIT TESTER [address] [place] [address] Retail Aide Internal Medicine 03/07/24 Fleet Manager Relationship Specialty Start Date End Date Kristy Brower MD [address] [place] [address] PCP - General Internal Medicine 01/09/23 Fleet Manager Relationship Specialty Start Date End Date Kristy Brower MD [address] [place] [address] PCP - General Internal Medicine 01/09/23 Fleet Manager Relationship Specialty Start Date End Date Kristy Brower MD [address] [place] [address] PCP - General 04/18/09 Virginie Trammell APRN.WEED SCIENCE RESEARCH TECHNICIAN [address] [place] [address] Retail Aide Internal Medicine 03/07/24 Kojo Frederick APRN.CIRCUIT TESTER [address] [place] [address] Retail Aide Internal Medicine 03/07/24 Fleet Manager Relationship Specialty Start Date End Date Kristy Brower MD [address] [place] [address] PCP - General 04/18/09 Virginie Trammell APRN.WEED SCIENCE RESEARCH TECHNICIAN [address] [place] [address] Retail Aide Internal Medicine 03/07/24 Kojo Frederick APRN.CIRCUIT TESTER [facility] [place] [address] Retail Aide Internal Medicine 03/07/24 Fleet Manager Relationship Specialty Start Date End Date Kristy Brower MD [address] [place] [address] PCP - General Internal Medicine 01/09/23 Fleet Manager Relationship Specialty Start Date End Date Kristy Brwoer MD [address] [place] [address] PCP - General Internal Medicine 01/09/23 Fleet Manager Relationship Specialty Start Date End Date Kristy Brower MD [address] [place] [address] PCP - General Internal Medicine 01/09/23 Fleet Manager Relationship Specialty Start Date End Date Kristy Brower MD [address] [place] [address] PCP - General 04/18/09 Virginie Trammell, DIRECTOR GLOBAL SALES.WEED SCIENCE RESEARCH TECHNICIAN [address] [place] [address] Retail Aide Internal Medicine 03/07/24 Kojo Frederick, DIRECTOR GLOBAL SALES.CIRCUIT TESTER [address] [place] [address] Retail Aide Internal Medicine 03/07/24 Fleet Manager Relationship Specialty Start Date End Date Kristy Brower MD [address] [place] [address] PCP - General 04/18/09 Virginie Trammell, DIRECTOR GLOBAL SALES.WEED SCIENCE RESEARCH TECHNICIAN [address] [place] [address] Retail Aide Internal Medicine 03/07/24 Kojo Frederick DIRECTOR GLOBAL SALES.CIRCUIT TESTER [address] [place] [address] Retail Aide Internal Medicine 03/07/24 Fleet Manager Relationship Specialty Start Date End Date Kristy Brower MD [address] [place] [address] PCP - General 04/18/09 Virginie Trammell, DIRECTOR GLOBAL SALES.WEED SCIENCE RESEARCH TECHNICIAN [address] [place] [address] Retail Aide Internal Medicine 03/07/24 Kojo Frederick DIRECTOR GLOBAL SALES.CIRCUIT TESTER [address] [place] [address] Retail Aide Internal Medicine 03/07/24 Fleet Manager Relationship Specialty Start Date End Date Kristy Brower MD [address] [place] [address] PCP - General 04/18/09 Virginie Trammell, DIRECTOR GLOBAL SALES.WEED SCIENCE RESEARCH TECHNICIAN [address] [place] [address] Retail Aide Internal Medicine 03/07/24 Kojo Frederick DIRECTOR GLOBAL SALES.CIRCUIT TESTER [address] [place] [address] [facility] Internal Medicine 03/07/24 Fleet Manager Relationship Specialty Start Date End Date Kristy Brower MD [address] [place] [address] PCP - General 04/18/09 Virginie Trammell APRN.WEED SCIENCE RESEARCH TECHNICIAN [address] [place] [address] Retail Aide Internal Medicine 03/07/24 Kojo Frederick APRN.CIRCUIT TESTER [address] [place] [address] Retail Aide Internal Medicine 03/07/24 Fleet Manager Relationship Specialty Start Date End Date Kristy Brower MD [address] [place] [address] PCP - General 04/18/09 Virginie Trammell, CLEMENTE.WEED SCIENCE RESEARCH TECHNICIAN [address] [place] [address] Retail Aide Internal Medicine 03/07/24 Kojo Frederick APRN.CIRCUIT TESTER [address] [place] [address] Retail Aide Internal Medicine 03/07/24 06/17/24 Kojo Frederick APRN.CIRCUIT TESTER [address] [place] [address] Retail Aide Internal Medicine 06/21/24 Fleet Manager Relationship Specialty Start Date End Date Kristy Brower MD [address] [place] [address] PCP - General 04/18/09 Virginie Trammell APRN.WEED SCIENCE RESEARCH TECHNICIAN [address] [place] [address] Retail Aide Internal Medicine 03/07/24 Kojo Frederick APRN.CIRCUIT TESTER [address] [place] [address] Retail Aide Internal Medicine 06/21/24 Fleet Manager Relationship Specialty Start Date End Date Kristy Brower MD [address] [place] [address] PCP - General 04/18/09 Virginie Trammell, DIRECTOR GLOBAL SALES.WEED SCIENCE RESEARCH TECHNICIAN [address] [place] [address] Retail Aide Internal Medicine 03/07/24 Kojo Frederick DIRECTOR GLOBAL SALES.CIRCUIT TESTER [address] [place] [address] Retail Aide Internal Medicine 06/21/24 Fleet Manager Relationship Specialty Start Date End Date Kristy Brower MD [address] [place] [address] PCP - General 04/18/09 Virginie Trammell, DIRECTOR GLOBAL SALES.WEED SCIENCE RESEARCH TECHNICIAN [address] [place] [address] Retail Aide Internal Medicine 03/07/24 Kojo Frederick DIRECTOR GLOBAL SALES.CIRCUIT TESTER [address] [place] [address] Retail Aide Internal Medicine 06/21/24 Fleet Manager Relationship Specialty Start Date End Date Kristy Brower MD [address] [place] [address] PCP - General 04/18/09 Virginie Trammell, DIRECTOR GLOBAL SALES.WEED SCIENCE RESEARCH TECHNICIAN [address] [place] [address] Retail Aide Internal Medicine 03/07/24 Kojo Frederick APRN.CIRCUIT TESTER [address] [place] [address] Retail Aide Internal Medicine 06/21/24 Fleet Manager Relationship Specialty Start Date End Date Kristy Brower MD [address] [place] [address] PCP - General Internal Medicine 01/09/23 Fleet Manager Relationship Specialty Start Date End Date Kristy Brower MD [address] [place] [address] PCP - General 04/18/09 Virginie Trammell APRN.WEED SCIENCE RESEARCH TECHNICIAN [address] [place] [address] [facility] Internal Medicine 03/07/24 Kojo Frederick APRN.CIRCUIT TESTER [address] [place] [address] Retail Aide Internal Medicine 03/07/24 06/17/24 Kojo Frederick APRN.CIRCUIT TESTER [address] [place] [address] [facility] Internal Medicine 06/21/24 Fleet Manager Relationship Specialty Start Date End Date Kristy Brower MD [address] [place] [address] PCP - General 04/18/09 Kojo Frederick APRN.CIRCUIT TESTER [address] [place] [address] Retail Aide Internal Medicine 06/21/24 Virginie Trammell DIRECTOR GLOBAL SALES.WEED SCIENCE RESEARCH TECHNICIAN [address] [place] [address] Retail Aide Internal Medicine 08/17/24 Fleet Manager Relationship Specialty Start Date End Date Kristy Brower MD [address] [place] [address] PCP - General Internal Medicine 01/09/23 Fleet Manager Relationship Specialty Start Date End Date Kristy Brower MD [address] [place] [address] PCP - General 04/18/09 Kojo Frederick DIRECTOR GLOBAL SALES.CIRCUIT TESTER [address] [place] [address] Retail Aide Internal Medicine 06/21/24 Virginie Trammell DIRECTOR GLOBAL SALES.WEED SCIENCE RESEARCH TECHNICIAN [address] [place] [address] Retail Aide Internal Medicine 08/17/24 Fleet Manager Relationship Specialty Start Date End Date Kristy Brower MD [address] [place] [address] PCP - General Internal Medicine 01/09/23 Fleet Manager Relationship Specialty Start Date End Date Kristy Brower MD [address] [place] [address] PCP - General 04/18/09 Kojo Frederick DIRECTOR GLOBAL SALES.CIRCUIT TESTER [address] [place] [address] Retail Aide Internal Medicine 06/21/24 Trammell, Virginie, DIRECTOR GLOBAL SALES.WEED SCIENCE RESEARCH TECHNICIAN [address] [place], [place] [address] [facility] Internal Medicine 08/17/24 Team Status: Active Member Role/Relationship Status Dates Dr. Kristy Brower MD Primary Care Provider Active Team Status: Inactive Member Role/Relationship Status Dates Dr. Kristy Brower MD Primary Care Provider Active Start: November 07, 2024 End: November 07, 2024 Dr. Kristy Brower MD Referring Provider Active Start: November 07, 2024 End: November 07, 2024 Dr. Lashonda Archer MD Attending Provider Active Start: November 07, 2024 End: November 07, 2024 Fleet Manager Relationship Specialty Start Date End Date Kristy Brower MD [address] [place], [place] [address] PCP - General 04/18/09 Kojo Frederick, DIRECTOR GLOBAL SALES.CIRCUIT TESTER [address] [place], [place] [address] [facility] Internal Medicine 06/21/24 Virginie Trammell, DIRECTOR GLOBAL SALES.WEED SCIENCE RESEARCH TECHNICIAN [address] [place] [address] [facility] Internal Medicine 08/17/24 Scheduled Active and Recently Administ ered Medications (unrecognized section and content) Medication Order 01/09/2024 01/10/2024 01/11/2024 ondansetron (Zofran) injection 4 mg (COMPLETED) 4 mg, intravenous, Once, On Thu01/11/24 at 1145, For 1 dose, When administering via IV Push, administer over 3-5 minutes. 1225 (Given - Provid er: Cammie Garcia RN) sodium chloride 0.9 % bolus 500 mL (COMPLETED) 500 mL, intravenous, at 500 mL/hr, Administer over 1 Hours, Once, On Thu01/11/24 at 1145, For 1 dose 1229 (New Bag - Prov ider: Cammie Garcia RN)1452 (Stopped - Provider: Cammie Garcia RN) Scheduled Medication Order 03/15/2024 03/16/2024 03/17/2024 aspirin EC tablet 81 mg 81 mg, oral, Daily, First dose on Thu03/16/24 at 0900, Do not crush, chew, or split. 0838 (Given - Provider: Marleen Rubin RN) 0855 (Given - Provider: Kena Pruitt, SHOLA) cholecalciferol (Vitamin D-3) tablet 2,000 Units 2,000 Units, oral, Daily, First dose on Thu03/16/24 at 0900 0838 (Given - Provider: Marleen Rubin RN) 0854 (Given - Provider: Kena Pruitt, SHOLA) cyanocobalamin (Vitamin B-12) tablet 500 mcg 500 mcg, oral, Every other day, First dose on Thu03/16/24 at 0900 0838 (Given - Provider: Marleen Rubin RN) diphenhydrAMINE (BENADryl) injection 50 mg (COMPLETED) 50 mg, intravenous, Once, On Thu03/15/24 at 1450, For 1 dose, If giving IV push, max rate of 25 mg/min. 1500 (Given - Provider: Katy Brooks RN) enoxaparin (Lovenox) syringe 40 mg 40 mg, subcutaneous, Every 24 hours, First dose on Thu03/15/24 at 1745, Indications: deep vein thrombosis prevention 1747 (Given - Provider: Lillian Ng RN) 1704 (Given - Provider: Marleen Rubin RN) 1745 (Due) fluticasone (Flonase) nasal spray 1 spray 1 spray, Each Nostril, Daily, First dose on Thu03/16/24 at 0900, Shake gently. Before first use, prime pump (press 6 times until fine spray appears). After use, clean tip and replace cap. 0807 (Not Given - Provider: Marleen Rubin RN - Reason: Patient/family refused)1131 (Given - Provider: Marleen Rubin RN) 0856 (Given - Provider: Kena Pruitt RN) levoFLOXacin (Levaquin) 750 mg in dextrose 5% IV 150 mL (COMPLETED) 750 mg, intravenous, at 100 mL/hr, Administer over 90 Minutes, Once, On Thu03/15/24 at 1450, For 1 dose, premix bag, Dosing of this medication varies based on severity of illness. Does this patient have sepsis or concern for sepsis (probable or documented infection plus systemic manifestations of infection)? No, Suspected Indication (Select all that apply): Abdominal Infection, Type of Therapy: Empiric, Type of infection: Community-Acquired, Indications: Abdominal Infection 1532 (New Bag - Provider: Katy Brooks, RN)1657 (Stopped - Provider: Katy Brooks, SHOLA) levoFLOXacin (Levaquin) tablet 750 mg 750 mg, oral, Every 24 hours, First dose on Thu03/16/24 at 1500, Administer at least 2 hours before or 2 hours after antacids containing magnesium or aluminum, sucralfate, metal cations (eg, iron), multivitamin preparations with zinc.i, Dosing of this medication varies based on severity of illness. Does this patient have sepsis or concern for sepsis (probable or documented infection plus systemic manifestations of infection)? No, Suspected Indication (Select all that apply): Pneumonia, Type of Therapy: Empiric, Indications: Pneumonia 1541 (Given - Provider: Marleen Rubin RN) 1500 (Due) nitrofurantoin (macrocrystal-monohydrate ) (Macrobid) capsule 100 mg (CANCELED) 100 mg, oral, Every 12 hours scheduled, First dose on Thu03/16/24 at 0900, For 5 days, Suspected Indication (Select all that apply): Urinary Tract Infection, Type of Therapy: Empiric, Type of Urinary Tract Infection: Uncomplicated, Indications: Urinary Tract Infection 0842 (Given - Provider: Marleen Rubin, SHOLA) ondansetron (Zofran) injection 4 mg (COMPLETED) 4 mg, intravenous, Once, On Thu03/15/24 at 1215, For 1 dose, When administering via IV Push, administer over 3-5 minutes. 1241 (Given - Provider: Lashonda Madison RN) pantoprazole (ProtoNix) EC tablet 40 mg 40 mg, oral, Daily before breakfast, First dose on Thu03/16/24 at 0700, Do not crush, chew, or split. 0842 (Given - Provider: Marleen Rubin RN) 0617 (Given - Provider: Daniela Ireland RN) sodium chloride 0.9 % bolus 1,000 mL (COMPLETED) 1,000 mL, intravenous, at 999 mL/hr, Administer over 1 Hours, Once, On Thu03/15/24 at 1215, For 1 dose 1242 (New Bag - Provider: Lashonda Madison, RN)1403 (Stopped - Provider: Katy Brooks RN) PRN Medication Order 03/15/2024 03/16/2024 03/17/2024 acetaminophen (Tylenol) tablet 975 mg (CANCELED) 975 mg (rounded from 1,000 mg), oral, Daily PRN, pain mild (1-3), first line, fever (temp greater than 38.0 C), headaches, Starting on Thu03/15/24 at 1716, If ordered PRN for pain, nurse is permitted to administer this medication for higher pain scores based on patient preference? Yes 0838 (Given - Provider: Marleen Rubin RN) acetaminophen (Tylenol) tablet 975 mg 975 mg (rounded from 1,000 mg), oral, 3 times daily PRN, pain mild (1-3), first line, fever (temp greater than 38.0 C), headaches, Starting on Thu03/16/24 at 2045, If ordered PRN for pain, nurse is permitted to administer this medication for higher pain scores based on patient preference? Yes 2103 (Given - Provider: Daniela Ireland RN) 0854 (Given - Provider: Kena Pruitt RN) albuterol 90 mcg/actuation inhaler 2 puff 2 puff, inhalation, Every 4 hours PRN, wheezing, Starting on Thu03/15/24 at 2201, Pt may use home MDI at bedside Shake well before use. benzocaine-menthol (Cepastat Sore Throat) lozenge 1 lozenge 1 lozenge, Mouth/Throat, Every 2 hour PRN, sore throat, Starting on Thu03/15/24 at 2214 2250 (Given - Provider: Adwoa Hearn RN) diphenhydrAMINE (BENADryl) injection 25 mg 25 mg, intravenous, As needed, itching, allergies, nausea/vomiting, third line, Starting on Thu03/15/24 at 1716, If giving IV push, max rate of 25 mg/min. 1516 (Given - Provider: Marleen Rubin RN) oxygen (O2) therapy inhalation, Continuous PRN - O2/gases, other, Starting on Thu03/15/24 at 1845, Device: Nasal Cannula, Rate in liters per minute: Other, Custom Value: 1-4, Keep O2 Sat Above: 90% 0651 ([employer] - Provider: Inna Anderson CRTT) Goals (unrecognized section and content) Goals may be documented in a n alternate section FOR RECORDS PERTAINING TO PATIENTS WHO ARE OR HAVE BEEN ENROLLED IN A CHEMICAL DEPENDENCY/SUBSTANCEABUSE PROGRAM, SOME INFORMATION MAY BE OMITTED. This clinical summary was aggregated from multiple sources. Caution should be exercised in using it in the provision of clinical care. This summary normalizes information from multiple sources, and as a consequence, information in this document may materially change the coding, format and clinical context of patient data. In addition, data may be omitted in some cases. CLINICAL DECISIONS SHOULD BE BASED ON THE PRIMARY CLINICAL RECORDS. [facility]. provides no warranty or guarantee of the accuracy or completeness of information in this document.
[2024-12-06 05:31] LABS: Troponin T High Sens 2 HR 21 ng/L (<=14)
[2024-12-06 07:29] LABS: Troponin T High Sens 4 HR 20 ng/L (<=14)
== END 2024-12-06 07:59 | disposition home or self-care (01) ==
PROVIDERS: Emergency Provider Emergency Medicine; PCP Internal Medicine; Visit Provider Emergency Medicine
DX: R07.9 Chest pain, unspecified (principal); E11.9 Type 2 diabetes mellitus without complications; E78.00 Pure hypercholesterolemia, unspecified; I25.10 Atherosclerotic heart disease of native coronary artery without angina pectoris; Z90.710 Acquired absence of both cervix and uterus; Z87.891 Personal history of nicotine dependence; J45.909 Unspecified asthma, uncomplicated; Z79.51 Long term (current) use of inhaled steroids; Z79.82 Long term (current) use of aspirin; Z79.899 Other long term (current) drug therapy; K21.9 Gastro-esophageal reflux disease without esophagitis; Z98.41 Cataract extraction status, right eye; Z98.42 Cataract extraction status, left eye; Z90.49 Acquired absence of other specified parts of digestive tract; Z95.5 Presence of coronary angioplasty implant and graft
CPT/HCPCS: 71045; 80048; 84484; 85025; 93005; 96374; 99285; A4216; J2405